=== PATIENT | female | born 1975 | race Caucasian/White ===

== ENCOUNTER 2018-05-22 09:19 | Emergency (ER) | payer OTHER ==
--- NOTE | 2018-05-22 10:45 | ER ---
Nurse's Notes [facility] Name: Trudi Villavicencio Age: 42 yrs Sex: Female : 1975 Arrival Date: 05/22/2018 Time: 09:21 Bed 19 Private MD: Angel Carl Diagnosis: Acute upper respiratory infection, unspecified Presentation: 05/22 09:27 Presenting complaint: Patient states: cough, fatigue, nasal congestion and runny nose ss that began 2 days ago. Unknown fever. Transition of care: patient was not received from another setting of care. Resp Distress? No respiratory distress is noted at this time. Onset of symptoms was May 20, 2018. Risk Assessment: Do you want to hurt yourself or someone else? Patient reports no desire to harm self or others. Initial Sepsis Screen: Does the patient meet any 2 criteria? No. Patient's initial sepsis screen is negative. Does the patient have a suspected source of infection? Yes: Productive cough/pneumonia. Care prior to arrival: Pt attempted to see PCP, Dr. Carl, but reports they were unable to help her. 09:27 Method Of Arrival: Ambulatory ss 09:27 Acuity: HOWIE 4 ss Historical: - Allergies: 09:29 Aspirin; ss 09:29 Codeine; ss 09:29 Topamax; ss 09:29 tramadol; ss - PMHx: 09:29 Asthma; Degenerative disc disease; DGD; enlarged aorta; Fibromyalgia; Herniated disc; ss - PSHx: 09:29 Carpal Tunnel Repair; neuropathy; breast reduction; ss - Immunization history:: Adult Immunizations up to date, Flu vaccine is not up to date. - Social history:: Smoking status: Patient/guardian denies using tobacco. - Ebola Screening: : Patient denies exposure to infectious person Patient denies travel to an Ebola-affected area in the 21 days before illness onset. Screenin:35 Abuse screen: Denies threats or abuse. Denies injuries from another. Nutritional sv screening: No deficits noted. Tuberculosis screening: No symptoms or risk factors identified. Fall Risk None identified. Assessment: 09:35 General: Appears in no apparent distress. uncomfortable, Behavior is calm, cooperative, sv appropriate for age. Pain: Complains of pain in "my body" Pain currently is 5 out of 10 on a pain scale. Quality of pain is described as aching, Pain began 2-3 days ago. Is continuous. Neuro: Level of Consciousness is awake, alert, obeys commands, Oriented to person, place, time, situation, Moves all extremities. Full function Gait is steady, Speech is normal. Cardiovascular: Patient's skin is warm and dry. Respiratory: Reports cough that is non-productive, pain with cough Airway is patent Respiratory effort is even, unlabored, Respiratory pattern is regular, symmetrical. EENT: Reports nasal congestion. Derm: Skin is pink, warm \\T\\ dry. 11:09 Reassessment: Patient appears in no apparent distress at this time. No changes from sv previously documented assessment. Patient and/or family updated on plan of care and expected duration. Pain level reassessed. Patient is alert, oriented x 3, equal unlabored respirations, skin warm/dry/pink. Vital Signs: 09:29 BP 134 / 89; Pulse 106; Resp 18; Temp 99.4; Pulse Ox 98% on R/A; Weight 100.7 kg; ss Height 5 ft. 3 in. (160.02 cm); Pain 5/10; 10:27 BP 106 / 84; Pulse 89; Resp 18; Pulse Ox 99% ; sv 09:29 Body Mass Index 39.33 (100.70 kg, 160.02 cm) ED Course: 09:21 Patient arrived in ED. sb2 09:22 Angel Carl MD is Private Physician. sb2 09:26 [facility] Ortega [facility] jr8 09:26 Jacinto Thomas MD is Attending Physician. jr8 09:28 Triage completed. ss 09:29 Arm band placed on right wrist. ss 09:35 Patient has correct armband on for positive identification. Bed in low position. Call sv light in reach. Pulse ox on. NIBP on. Door closed. Head of bed elevated. 10:25 Reyna Chavira, BECK is Primary Nurse. sv 10:44 Angel Carl MD is Referral Physician. jr8 11:09 No provider procedures requiring assistance completed. Patient did not have IV access sv during this emergency room visit. Administered Medications: No medications were administered Outcome: 10:44 Discharge ordered by . jr8 11:09 Patient left the ED. ss 11:09 Discharged to home ambulatory. sv 11:09 Condition: stable 11:09 Discharge instructions given to patient, Instructed on discharge instructions, follow up and referral plans. medication usage, Demonstrated understanding of instructions, follow-up care, medications, Prescriptions given X 3. Signatures: Reyna Chavira RN RN sv Smirch, Shelby, RN RN ss Roszak, Josh, PA PA jr8 Cynthia Mane sb2
--- NOTE | 2018-05-22 10:45 | EDPHYS ---
Physician Documentation [facility] Name: Trudi Villavicencio Age: 42 yrs Sex: Female : 1975 Arrival Date: 05/22/2018 Time: 09:21 Bed 19 Private MD: Angel Carl ED Physician Jacinto Thomas HPI: 05/22 10:36 This 42 yrs old Female presents to ER via Ambulatory with complaints of jr8 Cough, Congestion, Runny Nose. 10:36 The patient or guardian reports cough, that is intermittent, described as mild, with no jr8 sputum. Onset: The symptoms/episode began/occurred acutely, 2 day(s) ago. Severity of symptoms: At their worst the symptoms were mild, in the emergency department the symptoms are unchanged. Modifying factors: The symptoms are alleviated by nothing, the symptoms are aggravated by nothing. Associated signs and symptoms: Pertinent positives: rhinorrhea, sore throat, sinus congestion . The patient has not experienced similar symptoms in the past. The patient has not recently seen a physician. Historical: - Allergies: 09:29 Aspirin; ss 09:29 Codeine; ss 09:29 Topamax; ss 09:29 tramadol; ss - PMHx: 09:29 Asthma; Degenerative disc disease; DGD; enlarged aorta; Fibromyalgia; Herniated disc; ss - PSHx: 09:29 Carpal Tunnel Repair; neuropathy; breast reduction; ss - Immunization history:: Adult Immunizations up to date, Flu vaccine is not up to date. - Social history:: Smoking status: Patient/guardian denies using tobacco. - Ebola Screening: : Patient denies exposure to infectious person Patient denies travel to an Ebola-affected area in the 21 days before illness onset. ROS: 10:36 Eyes: Negative for injury, pain, redness, and discharge, Neck: Negative for injury, jr8 pain, and swelling, Cardiovascular: Negative for chest pain, palpitations, and edema, Abdomen/GI: Negative for abdominal pain, nausea, vomiting, diarrhea, and constipation, Back: Negative for injury and pain, MS/Extremity: Negative for injury and deformity, Skin: Negative for injury, rash, and discoloration, Neuro: Negative for headache, weakness, numbness, tingling, and seizure. 10:36 Constitutional: Positive for body aches, chills. 10:36 ENT: Positive for rhinorrhea, sinus congestion, sore throat. Exam: 10:36 Eyes: Pupils equal round and reactive to light, extra-ocular motions intact. Lids and jr8 lashes normal. Conjunctiva and sclera are non-icteric and not injected. Cornea within normal limits. Periorbital areas with no swelling, redness, or edema. ENT: No nasal discharge, no septal abnormalities noted. Turbinates swollen and boggy. Tympanic membranes are normal and external auditory canals are clear. Oropharynx with no redness, swelling, or masses, exudates, or evidence of obstruction, uvula midline. Mucous membranes moist. Neck: Trachea midline, no thyromegaly or masses palpated, and no cervical lymphadenopathy. Supple, full range of motion without nuchal rigidity, or vertebral point tenderness. No Meningismus. Cardiovascular: Regular rate and rhythm with a normal S1 and S2. No gallops, murmurs, or rubs. Normal PMI, no JVD. No pulse deficits. Respiratory: Lungs have equal breath sounds bilaterally, clear to auscultation and percussion. No rales, rhonchi or wheezes noted. No increased work of breathing, no retractions or nasal flaring. Abdomen/GI: Soft, non-tender, with normal bowel sounds. No distension or tympany. No guarding or rebound. No evidence of tenderness throughout. Back: No spinal tenderness. No costovertebral tenderness. Full range of motion. Skin: Warm, dry with normal turgor. Normal color with no rashes, no lesions, and no evidence of cellulitis. MS/ Extremity: Pulses equal, no cyanosis. Neurovascular intact. Full, normal range of motion. Neuro: Awake and alert, GCS 15, oriented to person, place, time, and situation. Cranial nerves II-XII grossly intact. Motor strength 5/5 in all extremities. Sensory grossly intact. Cerebellar exam normal. Normal gait. Vital Signs: 09:29 BP 134 / 89; Pulse 106; Resp 18; Temp 99.4; Pulse Ox 98% on R/A; Weight 100.7 kg; ss Height 5 ft. 3 in. (160.02 cm); Pain 5/10; 10:27 BP 106 / 84; Pulse 89; Resp 18; Pulse Ox 99% ; sv 09:29 Body Mass Index 39.33 (100.70 kg, 160.02 cm) ss MDM: 09:26 Patient medically screened. jr8 10:44 Data reviewed: vital signs, nurses notes, lab test result(s), Flu: negative and as a jr8 result, I will discharge patient. Data interpreted: Pulse oximetry: on room air is 99 %. Interpretation: normal. Counseling: I had a detailed discussion with the patient and/or guardian regarding: the historical points, exam findings, and any diagnostic results supporting the discharge/admit diagnosis, lab results, the need for outpatient follow up, a family practitioner, to return to the emergency department if symptoms worsen or persist or if there are any questions or concerns that arise at home. 05/22 10:11 Order name: Influenza Screen (a \T\ B); Complete Time: 10:45 jr8 Administered Medications: No medications were administered Disposition: 14:08 Co-signature as Attending Physician, Jacinto Thomas MD. rn Disposition: 05/22/18 10:44 Discharged to Home. Impression: Acute upper respiratory infection, unspecified. - Condition is Stable. - Discharge Instructions: Upper Respiratory Infection, Adult. - Prescriptions for Prednisone 20 mg Oral Tablet - take 1 tablet by ORAL route once daily for 5 days; 5 tablet. Tessalon Perles 100 mg Oral Capsule - take 1 capsule by ORAL route every 8 hours As needed; 15 capsule. Albuterol Sulfate 90 mcg/actuation - inhale 1-2 puff by INHALATION route every 4-6 hours; 1 Inhaler. - Medication Reconciliation Form, Thank You Letter, Antibiotic Education, Prescription Opioid Use form. - Follow up: Angel Carl MD; When: 2 - 3 days; Reason: Recheck today's complaints, Continuance of care, Re-evaluation by your physician. - Problem is new. - Symptoms have improved. Signatures: Dispatcher [employer] EDMS Jacinto Thomas MD MD rn Smirch, Shelby, RN RN ss Roszak, Josh, PA PA jr8 Corrections: (The following items were deleted from the chart) 11: 10:44 05/22/2018 10:44 Discharged to Home. Impression: Acute upper respiratory ss infection, unspecified. Condition is Stable. Forms are Medication Reconciliation Form, Thank You Letter, Antibiotic Education, Prescription Opioid Use. Follow up: Angel Carl; When: 2 - 3 days; Reason: Recheck today's complaints, Continuance of care, Re-evaluation by your physician. Problem is new. Symptoms have improved. jr8
[2018-05-22 11:32] VITALS: TEMP 99.4
[2018-05-22 11:34] VITALS: BP 106/84; O2SAT 99
== END 2018-05-22 11:09 | disposition home or self-care (01) ==
LOC: ER 09:19
DX: J06.9 Acute upper respiratory infection, unspecified (principal); Z88.5 Allergy status to narcotic agent; Z88.6 Allergy status to analgesic agent; Z88.8 Allergy status to other drugs, medicaments and biological substances
CPT/HCPCS: 87804; 99283

== ENCOUNTER 2018-08-16 12:25 | Emergency (ER) | payer OTHER ==
[2018-08-16] MEDS ORDERED: DIPHENHYDRAMINE 50 MG/ML VIAL ONE (14:25)
[2018-08-16] MEDS ORDERED: METOCLOPRAMIDE 10 MG/2mL INJ ONE (14:25)
[2018-08-16] MEDS ORDERED: NA CHLORIDE 0.9% 1,000 ML ONE ×2 (14:25→14:42)
[2018-08-16] MEDS ORDERED: KETOROLAC 30 MG/ML INJ ONE (14:25)
--- NOTE | 2018-08-16 15:42 | EDPHYS ---
Physician Documentation [facility] Name: Trudi Villavicencio Age: 43 yrs Sex: Female : 1975 Arrival Date: 08/16/2018 Time: 12:29 Bed 26 Private MD: ED Physician Tod Blandon HPI: 08/16 14:21 This 43 yrs old Female presents to ER via Ambulatory with complaints of kb Migraine. 14:21 The patient complains of pain to the forehead. The patient describes the headache as kb constant. Onset: The symptoms/episode began/occurred 7 day(s) ago. Associated signs and symptoms: Pertinent positives: nausea, Photophobia vomiting. Severity of symptoms: At its worst the pain was mild, moderate, in the emergency department the pain is unchanged. Headache History: The patient has had previous headaches and this one is similar to previous episodes. The symptoms are alleviated by nothing. the symptoms are aggravated by nothing. The patient has experienced similar episodes in the past, multiple times, today's symptoms are similar. The patient has not recently seen a physician. 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 - Social history:: Smoking status: unknown. - Ebola Screening: : No symptoms or risks identified at this time. ROS: 14:20 Constitutional: Negative for fever, chills, and weight loss, ENT: Negative for injury, kb pain, and discharge, Neck: Negative for injury, pain, and swelling, Cardiovascular: Negative for chest pain, palpitations, and edema, Respiratory: Negative for shortness of breath, cough, wheezing, and pleuritic chest pain, Back: Negative for injury and pain, MS/Extremity: Negative for injury and deformity, Skin: Negative for injury, rash, and discoloration. 14:20 Abdomen/GI: Positive for nausea and vomiting. 14:20 Neuro: Positive for headache. Exam: 14:20 Constitutional: This is a well developed, well nourished patient who is awake, alert, kb and in no acute distress. Head/Face: Normocephalic, atraumatic. Eyes: Pupils equal round and reactive to light, extra-ocular motions intact. Lids and lashes normal. Conjunctiva and sclera are non-icteric and not injected. Cornea within normal limits. Periorbital areas with no swelling, redness, or edema. ENT: Nares patent. No nasal discharge, no septal abnormalities noted. Tympanic membranes are normal and external auditory canals are clear. Oropharynx with no redness, swelling, or masses, exudates, or evidence of obstruction, uvula midline. Mucous membranes moist. Neck: Trachea midline, no thyromegaly or masses palpated, and no cervical lymphadenopathy. Supple, full range of motion without nuchal rigidity, or vertebral point tenderness. No Meningismus. Chest/axilla: Normal chest wall appearance and motion. Nontender with no deformity. No lesions are appreciated. Cardiovascular: Regular rate and rhythm with a normal S1 and S2. No gallops, murmurs, or rubs. Normal PMI, no JVD. No pulse deficits. Respiratory: Lungs have equal breath sounds bilaterally, clear to auscultation and percussion. No rales, rhonchi or wheezes noted. No increased work of breathing, no retractions or nasal flaring. Abdomen/GI: Soft, non-tender, with normal bowel sounds. No distension or tympany. No guarding or rebound. No evidence of tenderness throughout. Skin: Warm, dry with normal turgor. Normal color with no rashes, no lesions, and no evidence of cellulitis. MS/ Extremity: Pulses equal, no cyanosis. Neurovascular intact. Full, normal range of motion. Neuro: Awake and alert, GCS 15, oriented to person, place, time, and situation. Cranial nerves II-XII grossly intact. Motor strength 5/5 in all extremities. Sensory grossly intact. Cerebellar exam normal. Normal gait. Vital Signs: 12:35 BP 118 / 78; Pulse 90; Resp 18; Temp 98.8(TE); Pulse Ox 99% on R/A; Weight 108.41 kg aj1 (R); Height 5 ft. 3 in. (160.02 cm) (R); Pain 10/10; 14:14 BP 112 / 77; Pulse 66; Resp 18; Pulse Ox 100% on R/A; tm3 15:45 BP 101 / 69; Pulse 68; Resp 18; Pulse Ox 100% on R/A; tl3 12:35 Body Mass Index 42.34 (108.41 kg, 160.02 cm) aj1 MDM: 13:26 Patient medically screened. kb 14:20 Data reviewed: vital signs, nurses notes. Data interpreted: Pulse oximetry: on room air kb is 100 %. Interpretation: normal. 15:41 Counseling: I had a detailed discussion with the patient and/or guardian regarding: the kb historical points, exam findings, and any diagnostic results supporting the discharge/admit diagnosis, the need for outpatient follow up, a family practitioner, to return to the emergency department if symptoms worsen or persist or if there are any questions or concerns that arise at home. Response to treatment: the patient's symptoms have resolved after treatment, the patient's pain is gone. 08/16 13:45 Order name: IV Start; Complete Time: 14:13 kb Administered Medications: 14:24 Drug: Reglan 10 mg Route: IVP; Infused Over: 2 mins; Site: right antecubital; tl3 16:01 Follow up: Response: Marked relief of symptoms tl3 14:24 Drug: Benadryl 12.5 mg Route: IVP; Infused Over: 2 mins; Site: right antecubital; tl3 16:01 Follow up: Response: No adverse reaction; Marked relief of symptoms tl3 14:25 Drug: NS 0.9% 1000 ml Route: IV; Rate: 1000 ml; Site: right antecubital; Delivery: tl3 Primary tubing; 16:01 Follow up: IV Status: Completed infusion; IV Intake: 1000ml tl3 14:25 Drug: TORadol 30 mg Route: IVP; Infused Over: 2 mins; Site: right antecubital; tl3 16:01 Follow up: Response: Marked relief of symptoms tl3 Disposition: 16:11 Co-signature as Attending Physician, Tod Blandon MD I agree with the assessment and kdr plan of care. Disposition: 08/16/18 15:41 Discharged to Home. Impression: Migraine. - Condition is Stable. - Discharge Instructions: Migraine Headache, [id number]. - Medication Reconciliation Form, Thank You Letter, Antibiotic Education, Prescription Opioid Use form. - Follow up: Emergency Department; When: As needed; Reason: Worsening of condition. Follow up: Private Physician; When: 2 - 3 days; Reason: Recheck today's complaints, Continuance of care, Re-evaluation by your physician. Signatures: Lia Montenegro, CHEMICAL SPRAYER-C CHEMICAL SPRAYER-Payal Gorman RN RN aj1 Tod Blandon MD MD kdr Irasema Jones RN RN tl3 Corrections: (The following items were deleted from the chart) 16:10 15:41 08/16/2018 15:41 Discharged to Home. Impression: Migraine. Condition is Stable. tl3 Forms are Medication Reconciliation Form, Thank You Letter, Antibiotic Education, Prescription Opioid Use. Follow up: Emergency Department; When: As needed; Reason: Worsening of condition. Follow up: Private Physician; When: 2 - 3 days; Reason: Recheck today's complaints, Continuance of care, Re-evaluation by your physician. kb
--- NOTE | 2018-08-16 15:42 | ER ---
Nurse's Notes [facility] Name: Trudi Villavicencio Age: 43 yrs Sex: Female : 1975 Arrival Date: 08/16/2018 Time: 12:29 Bed 26 Private MD: Diagnosis: Migraine Presentation: 08/16 12:32 Presenting complaint: Patient states: "I have a migraine in the middle of my head, I've aj1 had it for 7 days. Yesterday I was nauseated" Patient reports a history of migraines, states the pain is similar to her previous migraines, but she has never had one last this long. Denies head injury. Patient reports that she OTC headache medication with no relief. Transition of care: patient was not received from another setting of care. Onset of symptoms was August 07, 2017. Risk Assessment: Do you want to hurt yourself or someone else? Patient reports no desire to harm self or others. Initial Sepsis Screen: Does the patient meet any 2 criteria? No. Patient's initial sepsis screen is negative. Does the patient have a suspected source of infection? No. Patient's initial sepsis screen is negative. Care prior to arrival: None. 12:32 Method Of Arrival: Ambulatory aj1 12:32 Acuity: HOWIE 3 aj1 Triage Assessment: 12:35 General: Appears in no apparent distress. uncomfortable, Behavior is calm, cooperative, aj1 appropriate for age. Pain: Complains of pain in forehead Pain does not radiate. Pain currently is 10 out of 10 on a pain scale. Neuro: Level of Consciousness is awake, alert, obeys commands, Oriented to person, place, time, situation, Wet Mixer are equal bilaterally Moves all extremities. Full function Gait is steady, Facial symmetry appears normal, Reports headache. Cardiovascular: Patient's skin is warm and dry. Respiratory: Airway is patent Respiratory effort is even, unlabored, Respiratory pattern is regular, symmetrical. 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 - Social history:: Smoking status: unknown. - Ebola Screening: : No symptoms or risks identified at this time. Screenin:41 Abuse screen: Denies threats or abuse. Nutritional screening: No deficits noted. tl3 Tuberculosis screening: No symptoms or risk factors identified. Fall Risk None identified. Assessment: 13:41 General: Appears distressed, uncomfortable, well groomed, well developed, well tl3 nourished, Behavior is calm, cooperative, appropriate for age. Pain: Complains of pain in face and forehead Pain began this is the seventh day. Neuro: Level of Consciousness is awake, alert, obeys commands, Oriented to person, place, time, situation, Appropriate for age. Cardiovascular: Patient's skin is warm and dry. Respiratory: Airway is patent Respiratory effort is even, unlabored, Respiratory pattern is regular, symmetrical. GI: Reports nausea, vomiting. : No signs and/or symptoms were reported regarding the genitourinary system. EENT: No signs and/or symptoms were reported regarding the EENT system. Derm: No signs and/or symptoms reported regarding the dermatologic system. 15:45 Reassessment: Patient appears in no apparent distress at this time. No changes from tl3 previously documented assessment. Patient and/or family updated on plan of care and expected duration. Pain level reassessed. Patient is alert, oriented x 3, equal unlabored respirations, skin warm/dry/pink. pt feels much better, Lia at bedside discussing POC. Vital Signs: 12:35 BP 118 / 78; Pulse 90; Resp 18; Temp 98.8(TE); Pulse Ox 99% on R/A; Weight 108.41 kg aj1 (R); Height 5 ft. 3 in. (160.02 cm) (R); Pain 10/10; 14:14 BP 112 / 77; Pulse 66; Resp 18; Pulse Ox 100% on R/A; tm3 15:45 BP 101 / 69; Pulse 68; Resp 18; Pulse Ox 100% on R/A; tl3 12:35 Body Mass Index 42.34 (108.41 kg, 160.02 cm) aj1 ED Course: 12:29 Patient arrived in ED. rg4 12:33 Triage completed. aj1 12:35 Arm band placed on Patient placed in waiting room, Patient notified of wait time. aj1 13:21 Lia Montenegro FNP-C is [facility]. kb 13:21 Tod Blandon MD is Attending Physician. kb 13:35 Irasema Jones, RN is Primary Nurse. tl3 13:41 Patient has correct armband on for positive identification. Bed in low position. Call tl3 light in reach. Side rails up X 1. 13:41 No provider procedures requiring assistance completed. tl3 14:04 Inserted saline lock: 22 gauge in right antecubital area, using aseptic technique. tm3 15:45 IV discontinued, intact, bleeding controlled, No redness/swelling at site. Pressure tl3 dressing applied. Administered Medications: 14:24 Drug: Reglan 10 mg Route: IVP; Infused Over: 2 mins; Site: right antecubital; tl3 16:01 Follow up: Response: Marked relief of symptoms tl3 14:24 Drug: Benadryl 12.5 mg Route: IVP; Infused Over: 2 mins; Site: right antecubital; tl3 16:01 Follow up: Response: No adverse reaction; Marked relief of symptoms tl3 14:25 Drug: NS 0.9% 1000 ml Route: IV; Rate: 1000 ml; Site: right antecubital; Delivery: tl3 Primary tubing; 16:01 Follow up: IV Status: Completed infusion; IV Intake: 1000ml tl3 14:25 Drug: TORadol 30 mg Route: IVP; Infused Over: 2 mins; Site: right antecubital; tl3 16:01 Follow up: Response: Marked relief of symptoms tl3 Intake: 16:01 IV: 1000ml; Total: 1000ml. tl3 Outcome: 15:41 Discharge ordered by . kb 15:45 Discharged to home ambulatory. tl3 15:45 Condition: stable 15:45 Discharge instructions given to patient, Instructed on discharge instructions, follow up and referral plans. medication usage, Demonstrated understanding of instructions, follow-up care, medications. 16:10 Patient left the ED. tl3 Signatures: Lia Montenegro FNP-C FNP-Payal Gorman RN RN aj1 Torrey Goff tm3 Sushila Shabazz rg4 Irasema Jones, RN RN tl3 Corrections: (The following items were deleted from the chart) 12:44 12:35 BP 118 / 78; Pulse 30bpm; Resp 18bpm; Pulse Ox 99% RA; Temp 98.8F Temporal; aj1 108.41 kg Reported; Height 5 ft. 3 in. Reported; BMI: 42.3; Pain 04/24; aj1
[2018-08-16 16:21] VITALS: TEMP 98.8
[2018-08-16 16:23] VITALS: O2SAT 100
[2018-08-16 16:25] VITALS: BP 101/69
== END 2018-08-16 16:10 | disposition home or self-care (01) ==
LOC: ER 12:25
DX: G43.909 Migraine, unspecified, not intractable, without status migrainosus (principal); J45.909 Unspecified asthma, uncomplicated; M79.7 Fibromyalgia; Z88.6 Allergy status to analgesic agent; Z88.5 Allergy status to narcotic agent; Z88.8 Allergy status to other drugs, medicaments and biological substances
CPT/HCPCS: 96361; 96374; 96375; 99283; J2765; J7030

== ENCOUNTER 2019-05-12 20:51 | Emergency (ER) | payer OTHER ==
[2019-05-12] MEDS ORDERED: DOXYCYCLINE 100 MG CAP PO ONE (21:31)
--- NOTE | 2019-05-12 22:02 | EDPHYS ---
Physician Documentation [facility] Name: Trudi Villavicencio Age: 43 yrs Sex: Female : 1975 Arrival Date: 05/12/2019 Time: 20:54 Bed 23 Private MD: ED Physician Kenn Steel HPI: 05/12 21:25 This 43 yrs old Female presents to ER via Ambulatory with complaints of cp Spider Bite. 21:25 The patient was bitten on the right breast, by possible spider, at home. Onset: The cp symptoms/episode began/occurred 2 day(s) ago. 21:25 Associated signs and symptoms: Pertinent negatives: fever, drainage. 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 - Social history:: Smoking status: Patient/guardian denies using tobacco. - Ebola Screening: : No symptoms or risks identified at this time. ROS: 21:30 Skin: Positive for of the right breast, possible spider bite. cp 21:30 Constitutional: Negative for body aches, chills, fever, poor PO intake. cp 21:30 Cardiovascular: Negative for chest pain, palpitations. 21:30 Respiratory: Negative for cough, shortness of breath, wheezing. 21:30 Abdomen/GI: Negative for abdominal pain, nausea, vomiting, and diarrhea. 21:30 All other systems are negative. Exam: 21:35 Constitutional: The patient appears in no acute distress, alert, awake, non-toxic, well cp developed, well nourished. 21:35 Head/Face: Normocephalic, atraumatic. cp 21:35 Skin: noted area of ecchymosis approximate nickel size in diameter with advancing erythema, no drainage expressed and no induration located right lower breast. Vital Signs: 20:58 BP 120 / 86; Pulse 110; Resp 16; Temp 97.2; Pulse Ox 98% on R/A; Weight 108.41 kg (R); ak1 Height 5 ft. 1 in. (154.94 cm) (R); Pain 0/10; 22:13 BP 123 / 78; Pulse 90; Resp 18; Temp 98.5(O); Pulse Ox 100% on R/A; mg2 20:58 Body Mass Index 45.16 (108.41 kg, 154.94 cm) ak1 MDM: 21:09 Patient medically screened. cp 21:30 Differential diagnosis: cellulitis, abscess. cp 22:01 Data reviewed: vital signs, nurses notes, and as a result, I will discharge patient. cp 22:01 Counseling: I had a detailed discussion with the patient and/or guardian regarding: the cp historical points, exam findings, and any diagnostic results supporting the discharge/admit diagnosis, to return to the emergency department if symptoms worsen or persist or if there are any questions or concerns that arise at home. 05/12 21:44 Order name: Urine Dipstick--Ancillary (enter results) [facility] 05/12 21:44 Order name: Urine --Ancillary (enter results) [facility] 05/12 21:19 Order name: Urine Test (obtain specimen); Complete Time: 21:39 cp 05/12 21:19 Order name: Urine Dipstick-Ancillary (obtain specimen); Complete Time: 21:39 cp 05/12 21:19 Order name: Misc. Order: outline area of erythema; Complete Time: 21:45 cp Administered Medications: 21:46 Drug: Doxycycline 100 mg Route: PO; mg2 21:46 Follow up: Response: No adverse reaction; Medication administered at discharge. mg2 Disposition: 22:20 Chart complete. cp Disposition: 05/12/19 22:02 Discharged to Home. Impression: Other local infections of skin and subcutaneous tissue - right breast. - Condition is Stable. - Discharge Instructions: Cellulitis, Adult. - Prescriptions for Bactroban 2 % Topical Cream - Apply to affected area 1 application by TOPICAL route every 12 hours; 30 gram. Doxycycline Hyclate 100 mg Oral Tablet - take 1 tablet by ORAL route every 12 hours; 20 tablet. - Medication Reconciliation Form, Thank You Letter, Antibiotic Education, Prescription Opioid Use form. - Follow up: Private Physician; When: 1 - 2 days; Reason: Recheck today's complaints. - Problem is new. - Symptoms have improved. Addendum: 05/14/2019 07:16 Co-signature as Attending Physician, Kenn Stele MD I agree with the assessment and t w4 plan of care. Signatures: Dispatcher [employer] Trinidad Herring RN RN ak1 Giuseppe Matthews PA PA cp Wadley, Terrence, MD MD tw4 Donnell Gamez RN RN mg2 Corrections: (The following items were deleted from the chart) 05/12 22:16 22:02 05/12/2019 22:02 Discharged to Home. Impression: Other local infections of skin mg2 and subcutaneous tissue - right breast. Condition is Stable. Forms are Medication Reconciliation Form, Thank You Letter, Antibiotic Education, Prescription Opioid Use. Follow up: Private Physician; When: 1 - 2 days; Reason: Recheck today's complaints. Problem is new. Symptoms have improved. cp
--- NOTE | 2019-05-12 22:02 | ER ---
Nurse's Notes [facility] Name: Trudi Villavicencio Age: 43 yrs Sex: Female : 1975 Arrival Date: 05/12/2019 Time: 20:54 Bed 23 Private MD: Diagnosis: Other local infections of skin and subcutaneous tissue-right breast Presentation: 05/12 20:57 Presenting complaint: Patient states: abscess under right breast X2 days. Transition of ak1 care: patient was not received from another setting of care. Onset of symptoms is unknown. Risk Assessment: Do you want to hurt yourself or someone else? Patient reports no desire to harm self or others. Initial Sepsis Screen: Does the patient meet any 2 criteria? No. Patient's initial sepsis screen is negative. Does the patient have a suspected source of infection? No. Patient's initial sepsis screen is negative. Care prior to arrival: None. 20:57 Method Of Arrival: Ambulatory ak1 20:57 Acuity: HOWIE 4 ak1 Triage Assessment: 20:58 General: Appears in no apparent distress. Behavior is calm, cooperative. 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 - Social history:: Smoking status: Patient/guardian denies using tobacco. - Ebola Screening: : No symptoms or risks identified at this time. Screenin:33 Abuse screen: Denies threats or abuse. Denies injuries from another. Nutritional mg2 screening: No deficits noted. Tuberculosis screening: No symptoms or risk factors identified. Fall Risk None identified. Assessment: 21:35 General: Appears in no apparent distress. comfortable, Behavior is calm, cooperative. mg2 Pain: Complains of pain in right breast. Neuro: Level of Consciousness is awake, alert, obeys commands, Oriented to person, place, time, situation. Cardiovascular: Capillary refill < 3 seconds Patient's skin is warm and dry. Respiratory: Airway is patent Respiratory effort is Respiratory pattern is regular, symmetrical. GI: No signs and/or symptoms were reported involving the gastrointestinal system. : No signs and/or symptoms were reported regarding the genitourinary system. EENT: No signs and/or symptoms were reported regarding the EENT system. Derm: Abscess located on right breast is quarter sized, has no drainage. Musculoskeletal: Circulation, motion, and sensation intact. Capillary refill < 3 seconds. 22:15 Reassessment: 7 cm-diameter measurement of the erythema area on her right breast. mg2 Vital Signs: 20:58 BP 120 / 86; Pulse 110; Resp 16; Temp 97.2; Pulse Ox 98% on R/A; Weight 108.41 kg (R); ak1 Height 5 ft. 1 in. (154.94 cm) (R); Pain 0/10; 22:13 BP 123 / 78; Pulse 90; Resp 18; Temp 98.5(O); Pulse Ox 100% on R/A; mg2 20:58 Body Mass Index 45.16 (108.41 kg, 154.94 cm) ak1 ED Course: 20:54 Patient arrived in ED. ds1 20:58 Triage completed. ak1 20:58 Arm band placed on Patient placed in an exam room, on a stretcher, Patient notified of ak1 wait time. 21:06 Giuseppe Matthews PA is PHCP. cp 21:06 Kenn Steel MD is Attending Physician. cp 21:15 Donnell Gamez, BECK is Primary Nurse. mg2 21:36 Patient has correct armband on for positive identification. Pulse ox on. NIBP on. mg2 21:36 No provider procedures requiring assistance completed. Patient did not have IV access mg2 during this emergency room visit. 21:38 Urine collected: clean catch specimen, clear, vargas colored. Patient maintains SpO2 jp3 saturation greater than 95% on room air. 21:39 Verbal reassurance given. jp3 Administered Medications: 21:46 Drug: Doxycycline 100 mg Route: PO; mg2 21:46 Follow up: Response: No adverse reaction; Medication administered at discharge. mg2 Outcome: 22:02 Discharge ordered by . cp 22:14 Discharged to home ambulatory. mg2 22:14 Condition: stable 22:14 Discharge instructions given to patient, Instructed on discharge instructions, follow up and referral plans. medication usage, Demonstrated understanding of instructions, follow-up care, medications, Prescriptions given X 2. 22:16 Patient left the ED. mg2 Signatures: Asia Crane ds1 Vargas Carey RN RN ak1 Giuseppe Matthews PA PA cp Gardose, Michele, BECK RN mg2 Huy Motta jp3
[2019-05-12 22:15] LABS: Urine Blood NEGATIVE (NEG); Urine Glucose NEGATIVE (NEG); Urine Protein NEGATIVE (NEG); Urine Specific Gravity 1.025 (1.005-1.030); Urine pH 5.5 (5.0-7.0)
[2019-05-12 22:26] VITALS: BP 123/78; TEMP 98.5; O2SAT 100
== END 2019-05-12 22:16 | disposition home or self-care (01) ==
LOC: ER 20:51
DX: S20.161A Insect bite (nonvenomous) of breast, right breast, initial encounter (principal); L08.9 Local infection of the skin and subcutaneous tissue, unspecified; Z88.6 Allergy status to analgesic agent
CPT/HCPCS: 81003; 81025; 99284

== ENCOUNTER 2020-06-12 15:07 | Emergency (ER) | payer OTHER ==
--- OUTSIDE RECORDS SUMMARY | 2020-06-12 15:10 | XMS REPORT | Continuity of Care Document ---
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, systemic N euro arterial (disorder) Hypothyroidism Active Problem 06/03/2020 Misc her (disorder) Neuro,[facility] I Migraine Active Problem 06/03/2020 [facility] (disorder) Neuro,[facility] I Morbid obesity Active Problem 06/03/2020 Misc her (disorder) Neuro,[facility] I Thiamin deficiency Active Problem 06/03/2020 [facility] (disorder) Neuro 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) Ankle pain Active Problem 06/03/2020 [facility] (finding) [facility] Acid reflux Active Problem 02/28/2020 [facility] (finding) Allergy - Active Problem 02/28/2020 [facility] specialty (qualifier value) Fibromyalgia Active Problem 02/28/2020 [facility] (disorder) Fracture of talus Active Problem 02/28/2020 [facility] (disorder) Neuropathy Active Problem 02/28/2020 [facility] (disorder) Medications Medication Details Route Status Patient Ordering Order Source Instructions Provider Date rizatriptan 5 MG 5 mg = 1 tab, Active ischer Oral Tablet PO, ONCE, PRN 2019 Neuro [Maxalt] for migraine headache, # 9 tab, 1 Refill(s), Pharmacy: [facility], 152.4, cm, 01/15/20 15:04:00 CDT, Height, 115.455, kg, 01/15/20 15:04:00 CDT, Weight Misc Medication 900 mL, Inactive 02/25/ [facility] Soln-IV, IV, 2020 Once, first dose 02/26/20 10:27:00 CDT, stop date 02/26/20 10:27:00 CDT LR 1,000 mL 1,000 mL, IV, Inactive 02/25/ [facility] 75 mL/hr, 2019 start date 02/26/20 10:20:00 CDT, 2.14, m2 Saline Lock Flush 10 mL, Soln, Inactive 02/25/ [facility] IV Push, As 2020 Indicated PRN for flush, first dose 02/26/20 10:20:00 CDT Dilaudid 0.5 mg = 0.5 Inactive 02/25/ [facility] mL, 2019 Injection, IV Push, q10min PRN for pain severe (7-10), first dose 02/26/20 10:20:00 CDT Demerol HCl 12.5 mg = 0.5 Inactive 02/25/ [facility] mL, 2020 Injection, IV Push, Once PRN for shivers, first dose 02/26/20 10:20:00 CDT Albuterol 0.83 2.5 mg = 3 Inactive 02/25/ [facility] MG/ML Inhalant mL, Soln, 2020 Solution NEB, Once PRN for wheezing, first dose 02/26/20 10:20:00 CDT Ondansetron 4 mg = 2 mL, Inactive 02/25/ [facility] Injection, IV 2020 Push, q15min PRN for nausea, order duration: 2 doses, first dose 02/26/20 10:20:00 CDT, stop date Limited # of times Promethazine 12.5 mg = 0.5 Inactive 02/25/ [facility] mL, 2019 Injection, IM, Once PRN for vomiting, first dose 02/26/20 10:20:00 CDT fentaNYL 25 mcg = 0.5 Inactive 02/25/ [facility] mL, 2019 Injection, IV, Once, first dose 02/26/20 9:50:00 CDT, stop date 02/26/20 9:50:00 CDT fentaNYL 25 mcg = 0.5 Inactive 02/25/ [facility] mL, 2019 Injection, IV, Once, first dose 02/26/20 9:16:00 CDT, stop date 02/26/20 9:16:00 CDT Misc Medication 1,000 mL, Inactive I Soln-IV, IV, 2019 Once, first dose 02/26/20 8:23:00 CDT, stop date 02/26/20 8:23:00 CDT ceFAZolin 2 gm, Inactive I Soln-IV, IV 2019 Piggyback, Once, first dose 02/26/20 7:53:00 CDT, stop date 02/26/20 7:53:00 CDT ondansetron 4 mg = 2 mL, Inactive [facility] Injection, 2019 IV, Once, first dose 02/26/20 7:53:00 CDT, stop date 02/26/20 7:53:00 CDT dexamethasone 8 mg = 2 mL, Inactive [facility] Injection, 2019 IV, Once, first dose 02/26/20 7:53:00 CDT, stop date 02/26/20 7:53:00 CDT ketorolac 30 mg = 1 mL, Inactive I Injection, 2019 IV, Once, first dose 02/26/20 7:53:00 CDT, stop date 02/26/20 7:53:00 CDT lidocaine 100 mg = 5 Inactive [facility] mL, 2019 Injection, IV, Once, first dose 02/26/20 7:41:00 CDT, stop date 02/26/20 7:41:00 CDT propofol 200 mg = 20 Inactive [facility] mL, Emulsion, 2019 IV, Once, first dose 02/26/20 7:41:00 CDT, stop date 02/26/20 7:41:00 CDT fentaNYL 50 mcg = 1 Inactive [facility] mL, 2019 Injection, IV, Once, first dose 02/26/20 7:35:00 CDT, stop date 02/26/20 7:35:00 CDT midazolam 1 mg = 1 mL, Inactive [facility] Injection, 2019 IV, Once, first dose 02/26/20 7:34:00 CDT, stop date 02/26/20 7:34:00 CDT midazolam 1 mg = 1 mL, Inactive [facility] Injection, 2019 IV, Once, first dose 02/26/20 7:26:00 CDT, stop date 02/26/20 7:26:00 CDT fentaNYL 50 mcg = 1 Inactive 02/25/ [facility] mL, 2019 Injection, IV, Once, first dose 02/26/20 7:25:00 CDT, stop date 02/26/20 7:25:00 CDT Cefazolin 2 gm, Inactive [facility] Soln-IV, IV 2019 Piggyback, Once, infuse over 30 minutes, first dose 02/26/20 7:00:00 CDT, stop date 02/26/20 7:00:00 CDT, patient weight 50-120 kg, Prophylaxis LR 1,000 mL 1,000 mL, IV, Inactive 02/25/ [facility] 30 mL/hr, 2019 start date 02/26/20 6:28:00 CDT, 2.14, m2 Lidocaine 2% 0.2 0.2 mL, Inactive 02/25/ [facility] mL IV Start Injection, 2019 [[facility]] Subcutaneous, Once PRN for other (see comment), first dose 02/26/20 6:28:00 CDT Allergy Relief mg, Oral, Active 02/17/ [facility] Daily, 0 2020 Refill(s) Tylenol PM Oral, qHS, 0 Active 02/17/ [facility] Refill(s), 2020 sleep /pain amitriptyline 75 75 mg = 1 Active 02/17/ [facility] mg oral tablet tabs, Oral, 2019 qHS, 0 Refill(s), sleep levothyroxine 25 25 mcg = 1 Active 02/17/ [facility] mcg (0.025 mg) tabs, Oral, 2019 oral tablet Daily, 0 Refill(s), hypothyroid rizatriptan 5 mg 5 mg = 1 Active 02/17/ [facility] oral tablet tabs, Oral, 2019 Daily, 0 Refill(s) pantoprazole 40 40 mg = 1 Active 02/17/ [facility] mg oral delayed tabs, Oral, 2019 release tablet Daily, 0 Refill(s), GERD meloxicam 7.5 MG 7.5 mg = 1 Active 02/17/ [facility] Oral Tablet tabs, Oral, 2019 Daily, 0 Refill(s), joint pain amitriptyline 75 = 1 tab, PO, Active 01/14/ Mi carrie mg oral tablet Bedtime, # 30 2020 Lebron ro ea, 5 Refill(s), Pharmacy: [facility], 152.4, cm, 01/15/20 15:04:00 CDT, Height, 115.455, kg, 01/15/20 15:04:00 CDT, Weight rizatriptan 5 MG 5 mg = 1 tab, Active ischer Oral Tablet PO, ONCE, PRN 2020 Neuro [Maxalt] for migraine headache, # 9 tab, 1 Refill(s), Pharmacy: [facility], 152.4, cm, 01/15/20 15:04:00 CDT, Height, 115.455, kg, 01/15/20 15:04:00 CDT, Weight rizatriptan 5 MG 5 mg = 1 tab, Active ischer Oral Tablet PO, ONCE, PRN 2019 Neuro [Maxalt] for migraine headache, # 9 tab, 1 Refill(s), Pharmacy: [facility] amitriptyline 75 = 1 tab, PO, Active carrie mg oral tablet Bedtime, 2019 Lebron ro ea, 1 Refill(s), Pharmacy: [facility] amitriptyline 75 75 mg = 1 Active 03/06/ Misch er mg oral tablet tab, PO, 2018 Neuro Bedtime, # 30 tab, 1 Refill(s), Pharmacy: [facility] rizatriptan 5 MG 5 mg = 1 tab, Active ischer Oral Tablet PO, ONCE, PRN 2018 Neuro [Maxalt] for migraine headache, # 9 tab, 1 Refill(s), Pharmacy: [facility] thiamine 100 mg 100 mg = 1 Active 02/14/ Misch er oral tablet tab, PO, 2019 Neuro Daily, X 30 day, # 30 tab, 3 Refill(s), Pharmacy: [facility] cyanocobalamin 1,000 Active 02/14/ Mischer 1000 mcg microgram = 1 2019 Neuro sublingual tablet tab, SL, Daily, # 30 tab, 2 Refill(s), Pharmacy: [facility] amitriptyline 50 50 mg = 1 Active 02/14/ Misch er mg oral tablet tab, PO, 2019 Neuro Bedtime, # 30 tab, 1 Refill(s), Pharmacy: [facility] rizatriptan 5 MG 5 mg = 1 tab, No Longer 01/25/ [facility] Oral Tablet PO, Daily, Active 2019 Neuro [Maxalt] PRN for migraine headache, X 6 day, # 6 tab, 1 Refill(s), Pharmacy: [facility] amitriptyline 50 50 mg = 1 No Longer 01/25/ Mis benji mg oral tablet tab, PO, Active 2019 Neuro Bedtime, # 30 tab, 1 Refill(s), Pharmacy: [facility] frovatriptan 2.5 2.5 mg = 1 No Longer 01/09/ Mi carrie mg oral tablet tab, PO, Active 2019 Neuro Daily, PRN for migraine headache, May repeat another dose at least 2 hours after the first dose, X 3 day, # 9 tab, 2 Refill(s), Pharmacy: [facility] eletriptan 40 MG See No Longer 01/07/ Misch er Oral Tablet Instructions, Active 2018 Neuro [Relpax] PO, Take 1-2 tabs orally at onset of migraine, may repeat dose once in 2 hours, X 3 day, # 6 tab, 1 Refill(s), Pharmacy: [facility] amitriptyline 25 25 mg = 1 Active 12/24/ Misch er mg oral tablet tab, PO, 2019 Neuro Bedtime, # 30 tab, 3 Refill(s), Pharmacy: [facility] cyanocobalamin 1,000 Active Mischer 1000 mcg microgram = 1 2019 Neuro sublingual tablet tab, SL, Daily, # 30 tab, 2 Refill(s), Pharmacy: [facility] thiamine 100 mg 100 mg = 1 Active 11/29/ Misch er oral tablet tab, PO, 2019 Neuro Daily, X 30 day, # 30 tab, 3 Refill(s), Pharmacy: [facility] amitriptyline 10 10 mg = 1 Active 11/22/ Misch er mg oral tablet tab, PO, 2019 Neuro Bedtime, # 30 tab, 3 Refill(s), Pharmacy: [facility] gabapentin 300 MG 300 mg = 1 Active 11/22/ Mis benji Oral Capsule cap, PO, BID, 2019 Neuro # 90 cap, 1 Refill(s) cyclobenzaprine 10 mg = 1 Inactive 11/22/ Misch er 10 mg oral tablet tab, PO, TID, 2019 Neuro PRN for spasms, # 30 tab, 0 Refill(s) escitalopram 20 20 mg = 1 Active 11/22/ Mische r mg oral tablet tab, PO, 2019 Neuro Daily, # 30 tab, 0 Refill(s) levothyroxine 50 50 microgram Active 11/22/ Mi carrie mcg (0.05 mg) = 1 tab, PO, 2019 Neuro oral tablet Daily, # 30 tab, 0 Refill(s) Allergies, Adverse Reactions, Alerts Substance Category Reaction Severity Reaction Status Date Comments S ource type Reported codeine Assertion Drug Active Mische r allergy Neuro aspirin Assertion Drug Active Mische r allergy Neuro Topamax Assertion Drug Active Mische r allergy Neuro codeine Assertion Drug Active Mische r sulfate allergy Neuro Immunizations No Data Provided for This Section Results Order Name Results Value Reference Date Interpretation Comments Linda rce Range LABORATORY Glucose Lvl 89 70 - 99 02/17 Result [facility] /2019 Comment: Adult reference range values reflect the clinical guidelines
of the [employer]. LABORATORY BUN 12 7 - 22 02/17 [facility] /2019 LABORATORY Creatinine 0.79 0.50 - 1.40 02/17 [facility] /2019 LABORATORY Sodium Level 141 135 - 145 02/17 [facility] /2019 LABORATORY Potassium 4.5 3.5 - 5.1 02/17 [facility] Level /2020 LABORATORY Chloride 108 95 - 109 02/17 [facility] Level /2020 LABORATORY Total Carbon 24 24 - 32 02/17 [facility] Dioxide /2020 Level LABORATORY AGAP 13.5 10.0 - 20.0 02/17 [facility] /2019 LABORATORY Calcium 9.5 8.5 - 10.5 02/17 [facility] Level /2020 LABORATORY eGFR 92 02/17 Result [facility] /2020 Comment: The eGFR is calculated using the CKD-EPI formula. In most young, healthy
i ndividuals the eGFR will be >90 mL/min/1.73m2 . The eGFR declines with age. An
eGFR of 60-89 may be normal in some populations, particularly the elderly, for
whom the CKD-EPI formula has not been extensively validated. Use of the eGFR is
not recommended in the following populations:< br/>Individua ls with unstable creatinine concentration s, including
patients and those with serious co-morbid conditions.<b r/>Patients with extremes in muscle mass or diet.
The data above are obtained from the National Kid[employer] Disease Education Program
( NKDEP) which additionally recommends that when the eGFR is used in patients<br/& gt;with extremes of body mass index for purposes of drug dosing, the eGFR should
be multiplied by the estimated BMI. LABORATORY Results Reported 02/17 (02/18/20 12:38 PM) LABORATORY White Blood 6.4 3.7 - 10.4 02/17 [facility] Count LABORATORY Red Blood 4.37 4.20 - 5.40 02/17 Cell Count LABORATORY Hemoglobin 12.7 12.0 - 16.0 02/17 LABORATORY Hematocrit 38.3 36.0 - 48.0 02/17 LABORATORY MCV 87.5 80.0 - 98.0 02/17 LABORATORY MCH 29.2 27.0 - 31.0 02/17 LABORATORY MCHC 33.3 32.0 - 36.0 02/17 LABORATORY RDW 14.2 11.5 - 14.5 02/17 LABORATORY Platelet 300 133 - 450 02/17 LABORATORY MPV 8.3 7.4 - 10.4 02/17 LABORATORY NRBCs # 0.1 0.4 - 2.2 02/17 LABORATORY Results Reported 02/17 (02/18/20 12:38 PM) LABORATORY Neutrophil % 62.2 45.0 - 75.0 02/17 LABORATORY Monocyte % 6.8 2.0 - 12.0 02/17 LABORATORY Lymphocyte % 26.9 20.0 - 40.0 02/17 LABORATORY Eosinophil # 3.6 0.0 - 4.0 02/17 LABORATORY Basophil % 0.5 0.0 - 1.0 02/17 LABORATORY Neutrophil # 4.0 1.5 - 8.1 02/17 LABORATORY Lymphocyte # 1.7 1.0 - 5.5 02/17 LABORATORY Monocyte # 0.4 0.0 - 0.8 02/17 LABORATORY Eosinophil % 0.2 0.0 - 0.5 02/17 LABORATORY Results Reported 02/17 [facility] (02/18/20 12:38 PM) Pathology Reports No Data Provided for This Section Diagnostic Reports No Data Provided for This Section Consultation Notes No Data Provided for This Section Discharge Summaries No Data Provided for This Section History and Physicals No Data Provided for This Section Vital Signs Vital Sign Value Date Comments Source Peripheral Pulse Rate 96 02/26/2020 [facility] Respitory Rate 16 02/26/2020 [facility] Systolic (mm Hg) 132 02/26/2020 [facility] Diastolic (mm Hg) 87 02/26/2020 [facility] Heart Rate 97 02/26/2020 [facility] Respitory Rate 16 02/26/2020 [facility] Systolic (mm Hg) 138 02/26/2020 [facility] Diastolic (mm Hg) 86 02/26/2020 [facility] Heart Rate 100 02/26/2020 [facility] Respitory Rate 20 02/26/2020 [facility] Systolic (mm Hg) 129 02/26/2020 [facility] Diastolic (mm Hg) 83 02/26/2020 [facility] Heart Rate 94 02/26/2020 [facility] Temperature Oral (F) 37.0 Sole 02/26/2020 [facility] Temperature Oral (F) 37.2 Sole 02/26/2020 [facility] Peripheral Pulse Rate 98 02/26/2020 [facility] Height 158 cm 02/26/2020 [facility] Weight Measured 117.5 02/26/2020 [facility] Height 158 cm 02/18/2020 [facility] Weight Measured 117.48 02/18/2020 [facility] Systolic (mm Hg) 121 01/15/2020 [facility] [place] ro Diastolic (mm Hg) 87 01/15/2020 [facility] Ne uro Heart Rate 106 01/15/2020 [facility] Neuro Respitory Rate 16 01/15/2020 [facility] Neuro Height 152.4 cm 01/15/2020 [facility] Neuro Weight 115.455 01/15/2020 [facility] Neuro BMI Calculated 49.71 01/15/2020 [facility] Neuro Systolic (mm Hg) 127 12/02/2019 [facility] [place] ro Diastolic (mm Hg) 95 12/02/2019 [facility] Ne uro Heart Rate 103 12/02/2019 [facility] Neuro Respitory Rate 16 12/02/2019 [facility] Neuro Height 152.4 cm 12/02/2019 [facility] Neuro Weight 107.727 12/02/2019 [facility] Neuro BMI Calculated 46.38 12/02/2019 [facility] Neuro Weight 108.182 02/14/2019 [facility] Neuro BMI Calculated 42.25 02/14/2019 [facility] Neuro Height 160.02 cm 02/14/2019 [facility] Neuro Respitory Rate 16 02/14/2019 [facility] Neuro Heart Rate 83 02/14/2019 [facility] Neuro Systolic (mm Hg) 123 02/14/2019 [facility] [place] ro Diastolic (mm Hg) 90 02/14/2019 [facility] Ne uro BMI Calculated 43.62 [facility]24/[facility] Weight 108.182 [facility]/24/[facility] Height 157.48 cm 12/24/2018 [facility] Neuro Systolic (mm Hg) 134 12/24/2018 [facility] [place] ro Diastolic (mm Hg) 99 12/24/2018 [facility] Respitory Rate 16 12/24/2018 [facility] Neuro Heart Rate 112 12/24/2018 [facility] Neuro Height 152.4 cm 12/20/2018 [facility] Neuro BMI Calculated 46.58 12/20/2018 [facility] Weight 108.182 12/20/2018 [facility] Neuro Systolic (mm Hg) 117 12/20/2018 [facility] [place] ro Diastolic (mm Hg) 82 12/20/2018 [facility] Ne uro Heart Rate 104 12/20/2018 [facility] Neuro Respitory Rate 16 12/20/2018 [facility] Neuro Systolic (mm Hg) 117 11/22/2018 [facility] [place] ro Diastolic (mm Hg) 90 11/22/2018 [facility] Ne uro Respitory Rate 16 11/22/2018 [facility] Neuro Height 157.48 cm 11/22/2018 [facility] Neuro Weight 106.364 11/22/2018 [facility] Neuro BMI Calculated 42.89 11/22/2018 [facility] Neuro Heart Rate 96 11/22/2018 [facility] Neuro Encounters Location Location Encounter Encounter Reason Attending ADM AL Stat Source Details Type Number For Provider Date Date Visit Outpatient [id number] Malcom 11/22 [facility] [place] [facility] Outpatient [id number] Malcom 11/22 11/23 [facility]2018 [facility] [place] [facility] [id number] [place] 12/20 [facility] [place] [facility] Outpatient [id number] [facility] 12/20 [facility] [place] [facility] [place] [facility] [id number] [facility] 12/24 [facility] [place] [facility] [id number] [place] 12/24 12/25 [facility] [place] /2018 [facility] [place] Outpatient [id number] [place] 02/14 [facility] [place] [facility] [id number] [place] 02/14 02/15 [facility] [place] [facility] [place] Outpatient [id number] [place] 05/23 [facility] [place] [facility] Amb[facility] [id number] [place] 05/23 05/23 [facility] [place] [facility] [place] Out[facility] [id number] [place] 12/01 [facility]2019 [place] [facility] Outpatient [id number] [place] 12/01 12/02 [facility] [place] /2019 [facility] [place] Outpatient [id number] [place] 01/14 [facility]2019 [place] Outpatient [id number] [place] 01/14 [facility]2019 [place] [facility] [id number] [place] 01/14 01/14 [facility] [place] /2019 [facility] [place] [facility] Outpatient [id number] [place] 01/14 01/15 [facility] [place] /2019 [facility] [place] [facility] Outpatient [id number] [place] 02/25 02/25 [facility] [place] [facility] Outpatient [id number] [place] 02/25 02/25 [facility] [place] [facility] Outpatient [id number] [place] 06/01 [facility]2019 [place] [facility] [id number] [place] 06/01 06/01 [facility] [place] /2019 [facility] [place] Procedures Procedure Code Date Perfomer Comments Source APPLICATION SHORT auto-populated [facility] I LEG SPLINT-CALF TO 0 from FOOT 27628 documented (Left)<sup>1</sup> surgical case ARTHROSCOPY ANKLE auto-populated [facility] I W/EXCISION OF 0 from OSTEOCHONDRAL documented DEFECT OF TALUS surgical case AND/OR TIBIA 16224 (Left)<sup>2</s up> OPEN REDUCTION auto-populated [facility] INTERNAL FIXATION 0 from TALUS FRACTURE documented [id number] surgical case (Left)<sup>3</sup> Breast reduction, [id number] [facility] bilateral Bunionectomy [id number] [facility] Carpal tunnel [id number] [facility] syndrome of right wrist Plantar fasciitis [id number] [facility] of left foot Assessment and Plan No Data Provided for This Section Plan of Care No Data Provided for This Section Social History Social History Date Source Social History TypeResponse 02/26/2020 [facility] Social History TypeResponse 01/15/2020 [facility] Smoking Status Never smoker; Exposure to Tobacco Smoke None; Cigarette Smoking Last 365 Days No; Reg Smoking Cessation Counseling No entered on: 01/15/20 Family History No Data Provided for This Section Advance Directives No Data Provided for This Section Functional Status No Data Provided for This Section
--- OUTSIDE RECORDS SUMMARY | 2020-06-12 15:10 | XMS REPORT | Continuity of Care Document ---
:1975 Author Organization [facility] t Address 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 1-01 04:01:02 l (disorder) Maciel's 00:00: Herm mckenna syndrome 00 (disorder) Active 07/16/1976 Problem 02/28/2020 reports reaction from [facility] Osteochond Osteochond Problem Active U nivers ritis ritis ity [place] left ankle left ankle Ph ysici and joints and joints an s of left of left foot foot Special Special Problem Active Univers screening screening [place] for n for Physici other other ans specified specified viral viral diseases diseases Closed Closed Problem Active Univers nondisplac nondisplac it y of ed ed [place] fracture fracture Physic i of dome of of dome of an s left talus left [place] with with routine routine healing, healing, subsequent subsequent encounter encounter Right calf Right calf Problem Active U nivers pain pain ity of [place] Physici ans Pain of Pain of Problem Active Univers left calf left calf ity of [place] Physici ans Edema, Edema, Problem Active Univers lower lower [place] extremity [place] Plantar Plantar Problem Active Univers fasciitis fasciitis ity of [place] Physici ans Asthma Problem Active 2020-06-03 Memor ia (disorder) 23:04:35 l Asthma Luca (disorder) Active Problem 06/03/2020 [facility] Gastritis Problem Active 2020-06-03 Me moria (disorder) 23:04:35 l Williams Gastritis (disorder) Active Problem 06/03/2020 [facility] Hypertensi Problem Active 2020-06-03 M emoria ve 23:04:35 l disorder, Williams systemic Hypertensi arterial ve (disorder) disorder, systemic arterial (disorder) Active Problem 06/03/2020 [facility] Hypothyroi Problem Active 2020-06-03 M emoria dism 23:04:35 l (disorder) Burak n Hypothyroi dism (disorder) Active Problem 06/03/2020 [facility] Migraine Problem Active 2020-06-03 Mem oria (disorder) 23:04:35 l Migraine Burak n (disorder) Active Problem 06/03/2020 [facility] Morbid Problem Active 2020-06-03 Memor ia obesity 23:04:35 l (disorder) Morbid Herm mckenna obesity (disorder) Active Problem 06/03/2020 [facility] 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 23:04:35 l (disorder) 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) Active Problem 06/03/2020 [facility] Hemangioma Problem Active 2020-06-03 M emoria of 23:04:35 l intracrani Burak n al Hemangioma structure of (disorder) intracrani al structure (disorder) Active Problem 06/03/2020 [facility] Ankle pain Problem Active 2020-06-03 M emoria (finding) 23:04:35 l Ankle Luca pain (finding) Active Problem 06/03/2020 [facility] Acid Problem Active 2020-02-28 Memor ia reflux 04:01:02 l (finding) Acid Williams reflux (finding) Active Problem 02/28/2020 [facility] Allergy - Problem Active 2020-02-28 Me moria specialty 04:01:02 l (qualifier Allergy Her paulino value) - specialty (qualifier value) Active Problem 02/28/2020 [facility] Fibromyalg Problem Active 2020-02-28 M emoria ia 04:01:02 l (disorder) Burak n Fibromyalg ia (disorder) Active Problem 02/28/2020 [facility] Fracture Problem Active 2020-02-28 Mem oria of talus 04:01:02 l (disorder) Fracture He rmann of talus (disorder) Active Problem 02/28/2020 [facility] Neuropathy Problem Active 2020-02-28 M emoria (disorder) 04:01:02 l Williams Neuropathy (disorder) Active Problem 02/28/2020 [facility] Nondisplac Problem 2020-2020-02-28 2020-02-28 Memoria ed dome 8-13 04:01:02 04:01:02 l fracture 17:00: Luca of left Nondisplac 00 talus, ed dome initial fracture encounter of left for closed talus, fracture initial encounter for closed fracture 0 02/28/2020 [facility] Allergies, Adverse Reactions, Alerts Allergy Allergy Status Severity Reaction(s) Onset Inactive Treating Comm ents Source Name Type Date Date Clinician aspirin Allergy Active Univers to drug ity of (finding [place] ) Physici ans codeine Allergy Active Univers to drug ity of (finding [place] ) Physici ans aspirin aspirin Active Memoria l Williams Topamax Topamax Active Memoria l [place] codeine codeine Active Memoria sulfate sulfate l Luca Social History Smoking Status Start Date Stop Date Source Social History [facility] [place] Medications Ordered Filled Start Stop Current Ordering Indication Dosage Frequency Signature Comments Components Source Medication Medication Date Date Medication? Clinician (SIG) Name Name rizatriptan Yes 5 mg = 1 Me moria 5 MG Oral 9-15 tab, PO, l Tablet 22:44: ONCE, PRN Burak n [Maxalt] 00 for migraine headache, # 9 tab, 1 Refill(s), Pharmacy: [facility], 152.4, cm, 01/15/20 15:04:00 CDT, Height, 115.455, kg, 01/15/20 15:04:00 CDT, Weight Misc 2020-0 No 900 mL, Memoria Medication 8-13 Soln-IV, l 15:27: IV, Once, first dose 02/26/20 10:27:00 CDT, stop date 02/26/20 10:27:00 CDT LR 1,000 mL 2020-0 No 1,000 mL, M emoria 8-13 IV, 75 l 15:20: mL/hr, start date 02/26/20 10:20:00 CDT, 2.14, m2 Saline Lock 2020-0 No 10 mL, Lev trupti Flush 02-25 Soln, IV l 15:20: Push, As Indicated PRN for flush, first dose 02/26/20 10:20:00 CDT Dilaudid 2020-0 No 0.5 mg = Memor ia -13 0.5 mL, l 15:20: Injection, IV Push, q10min PRN for pain severe (7-10), first dose 02/26/20 10:20:00 CDT Demerol HCl 2020-0 No 12.5 mg = M emoria 8-13 0.5 mL, l 15:20: Injection, IV Push, Once PRN for shivers, first dose 02/26/20 10:20:00 CDT Albuterol 2020-0 No 2.5 mg = 3 Me moria 0.83 MG/ML 8-13 mL, Soln, l Inhalant 15:20: NEB, Once Herm PRN for wheezing, first dose 02/26/20 10:20:00 CDT Ondansetron 2020-0 No 4 mg = 2 Me moria 8-13 mL, l 15:20: Injection, IV Push, q15min PRN for nausea, order duration: 2 doses, first dose 02/26/20 10:20:00 CDT, stop date Limited # of times Promethazin 2020-0 No 12.5 mg = M emoria e 8-13 0.5 mL, l 15:20: Injection, Williams 00 IM, Once PRN for vomiting, first dose 02/26/20 10:20:00 CDT fentaNYL 2020-0 No 25 mcg = Memor ia 8-13 0.5 mL, l 14:50: Injection, Luca 00 IV, Once, first dose 02/26/20 9:50:00 CDT, stop date 02/26/20 9:50:00 CDT fentaNYL 2020-0 No 25 mcg = Memor ia 8-13 0.5 mL, l 14:16: Injection, IV, Once, first dose 02/26/20 9:16:00 CDT, stop date 02/26/20 9:16:00 CDT Misc 2020-0 No 1,000 mL, Memoria Medication 8-13 Soln-IV, l 13:23: IV, Once, first dose 02/26/20 8:23:00 CDT, stop date 02/26/20 8:23:00 CDT ceFAZolin 2020-0 No 2 gm, Memoria 8-13 Soln-IV, l 12:53: IV Williams 00 Piggyback, Once, first dose 02/26/20 7:53:00 CDT, stop date 02/26/20 7:53:00 CDT ondansetron 2020-0 No 4 mg = 2 Me moria 8-13 mL, l 12:53: Injection, IV, Once, first dose 02/26/20 7:53:00 CDT, stop date 02/26/20 7:53:00 CDT dexamethaso 2020-0 No 8 mg = 2 Me moria ne 8-13 mL, l 12:53: Injection, Luca 00 IV, Once, first dose 02/26/20 7:53:00 CDT, stop date 02/26/20 7:53:00 CDT ketorolac 2020-0 No 30 mg = 1 Mem oria 8-13 mL, l 12:53: Injection, Williams 00 IV, Once, first dose 02/26/20 7:53:00 CDT, stop date 02/26/20 7:53:00 CDT lidocaine 2020-0 No 100 mg = 5 Me moria 8-13 mL, l 12:41: Injection, Williams 00 IV, Once, first dose 02/26/20 7:41:00 CDT, stop date 02/26/20 7:41:00 CDT propofol 2020-0 No 200 mg = Memor ia 8-13 20 mL, l 12:41: Emulsion, Luca 00 IV, Once, first dose 02/26/20 7:41:00 CDT, stop date 02/26/20 7:41:00 CDT fentaNYL 2020-0 No 50 mcg = 1 Mem oria 8-13 mL, l 12:35: Injection, Williams 00 IV, Once, first dose 02/26/20 7:35:00 CDT, stop date 02/26/20 7:35:00 CDT midazolam 2020-0 No 1 mg = 1 Lev trupti 8-13 mL, l 12:34: Injection, Luca 00 IV, Once, first dose 02/26/20 7:34:00 CDT, stop date 02/26/20 7:34:00 CDT midazolam 2020-0 No 1 mg = 1 Lev trupti 8-13 mL, l 12:26: Injection, Luca 00 IV, Once, first dose 02/26/20 7:26:00 CDT, stop date 02/26/20 7:26:00 CDT fentaNYL 2020-0 No 50 mcg = 1 Mem oria 8-13 mL, l 12:25: Injection, Luca 00 IV, Once, first dose 02/26/20 7:25:00 CDT, stop date 02/26/20 7:25:00 CDT Cefazolin 2020-0 No 2 gm, Memoria 8-13 Soln-IV, l 12:00: IV Luca 00 Piggyback, Once, infuse over 30 minutes, first dose 02/26/20 7:00:00 CDT, stop date 02/26/20 7:00:00 CDT, patient weight 50-120 kg, Prophylaxi s LR 1,000 mL 2020-0 No 1,000 mL, M emoria 8-13 IV, 30 l 11:28: mL/hr, Williams 00 start date 02/26/20 6:28:00 CDT, 2.14, m2 Lidocaine 2020-0 No 0.2 mL, Memor ia 2% 0.2 mL 02-25 Injection, l IV Start 11:28: Subcutaneo paulino [[facility]] 00 us, Once PRN for other (see comment), first dose 02/26/20 6:28:00 CDT Allergy 2020-0 Yes mg, Oral, Memor ia Relief 8-05 Daily, 0 l 17:06: Refill(s) Tylenol PM 2020-0 Yes Oral, qHS, M emoria 8-05 0 l 17:05: Refill(s), Williams 00 sleep /pain amitriptyli 2020-0 Yes 75 mg = 1 M emoria ne 75 mg 8-05 tabs, l oral tablet 17:04: Oral, qHS, 0 Refill(s), sleep levothyroxi 2020-0 Yes 25 mcg = 1 Memoria ne 25 mcg 8- tabs, l (0.025 mg) 17:04: Oral, Burak n oral tablet 00 Daily, 0 Refill(s), hypothyroi d rizatriptan 2020-0 Yes 5 mg = 1 Me moria 5 mg oral 8-05 tabs, l tablet 17:04: Oral, Luca 00 Daily, 0 Refill(s) pantoprazol 2020-0 Yes 40 mg = 1 M emoria e 40 mg 8-05 tabs, l oral 17:04: Oral, Luca delayed 00 Daily, 0 release Refill(s), tablet GERD meloxicam 2020-0 Yes 7.5 mg = 1 Me moria 7.5 MG Oral 8-05 tabs, l Tablet 17:04: Oral, Williams 00 Daily, 0 Refill(s), joint pain amitriptyli 2020-0 Yes = 1 tab, Me moria ne 75 mg 7-02 PO, l oral tablet 20:24: Bedtime, # Luca 00 30 ea, 5 Refill(s), Pharmacy: [facility], 152.4, cm, 01/15/20 15:04:00 CDT, Height, 115.455, kg, 01/15/20 15:04:00 CDT, Weight rizatriptan 2020-0 Yes 5 mg = 1 Me moria 5 MG Oral 7-02 tab, PO, l Tablet 20:24: ONCE, PRN Burak n [Maxalt] 00 for migraine headache, # 9 tab, 1 Refill(s), Pharmacy: [facility], 152.4, cm, 01/15/20 15:04:00 CDT, Height, 115.455, kg, 01/15/20 15:04:00 CDT, Weight rizatriptan 2020-0 Yes 5 mg = 1 Me moria 5 MG Oral 5-19 tab, PO, l Tablet 21:06: ONCE, PRN Burak n [Maxalt] 00 for migraine headache, # 9 tab, 1 Refill(s), Pharmacy: [facility] amitriptyli 2019-0 Yes = 1 tab, Me moria ne 75 mg 5-19 PO, l oral tablet 21:06: Bedtime, # Luca 00 30 ea, 1 Refill(s), Pharmacy: [facility] amitriptyli 2018- Yes 75 mg = 1 M emoria ne 75 mg 8-22 tab, PO, l oral tablet 18:27: Bedtime, # Luca 00 30 tab, 1 Refill(s), Pharmacy: [facility] rizatriptan 2018-0 Yes 5 mg = 1 Me moria 5 MG Oral 8-02 tab, PO, l Tablet 20:24: ONCE, PRN Burak n [Maxalt] 09 for migraine headache, # 9 tab, 1 Refill(s), Pharmacy: [facility] thiamine 2018- Yes 100 mg = 1 Mem oria 100 mg oral 8-02 tab, PO, l tablet 20:23: Daily, X Williams 17 30 day, # 30 tab, 3 Refill(s), Pharmacy: [facility] cyanocobala 2018-0 Yes 1,000 Memor ia min 1000 8-02 microgram l mcg 20:23: = 1 tab, Williams sublingual 13 SL, Daily, tablet # 30 tab, 2 Refill(s), Pharmacy: [facility] amitriptyli 2018-0 Yes 50 mg = 1 M emoria ne 50 mg 8-02 tab, PO, l oral tablet 20:23: Bedtime, # Williams 09 30 tab, 1 Refill(s), Pharmacy: [facility] rizatriptan No 5 mg = 1 Me moria 5 MG Oral 7-13 tab, PO, l Tablet 01:53: Daily, PRN Antonia nn [Maxalt] 00 for migraine headache, X 6 day, # 6 tab, 1 Refill(s), Pharmacy: [facility] amitriptyli No 50 mg = 1 M emoria ne 50 mg 7-13 tab, PO, l oral tablet 01:53: Bedtime, # Luca 00 30 tab, 1 Refill(s), Pharmacy: [facility] frovatripta No 2.5 mg = 1 Memoria n 2.5 mg 6-27 tab, PO, l oral tablet 15:37: Daily, PRN Luca 00 for migraine headache, May repeat another dose at least 2 hours after the first dose, X 3 day, # 9 tab, 2 Refill(s), Pharmacy: [facility] eletriptan No See Memoria 40 MG Oral 6-25 Instructio l Tablet 23:35: ns, PO, Luca [Relpax] 00 Take 1-2 tabs orally at onset of migraine, may repeat dose once in 2 hours, X 3 day, # 6 tab, 1 Refill(s), Pharmacy: [facility] amitriptyli Yes 25 mg = 1 M emoria ne 25 mg 6-11 tab, PO, l oral tablet 21:16: Bedtime, # Williams 00 30 tab, 3 Refill(s), Pharmacy: [facility] cyanocobala Yes 1,000 Memor ia min 1000 6-07 microgram l mcg 19:39: = 1 tab, Luca sublingual 00 SL, Daily, tablet # 30 tab, 2 Refill(s), Pharmacy: [facility] thiamine Yes 100 mg = 1 Mem oria 100 mg oral 5-17 tab, PO, l tablet 18:13: Daily, X Luca 00 30 day, # 30 tab, 3 Refill(s), Pharmacy: [facility] amitriptyli Yes 10 mg = 1 M emoria ne 10 mg 5-10 tab, PO, l oral tablet 20:44: Bedtime, # Luca 00 30 tab, 3 Refill(s), Pharmacy: [facility] gabapentin 2019- Yes 300 mg = 1 M emoria 300 MG Oral 5-10 cap, PO, l Capsule 20:28: BID, # 90 Antonia nn 00 cap, 1 Refill(s) cyclobenzap No 10 mg = 1 M emoria rine 10 mg 5-10 tab, PO, l oral tablet 20:28: TID, PRN He rmann 00 for spasms, # 30 tab, 0 Refill(s) escitalopra Yes 20 mg = 1 M emoria m 20 mg 5-10 tab, PO, l oral tablet 20:28: Daily, # He rmann 00 30 tab, 0 Refill(s) levothyroxi Yes 50 Memori a ne 50 mcg 5-10 microgram l (0.05 mg) 20:28: = 1 tab, Herm mckenna oral tablet 00 PO, Daily, # 30 tab, 0 Refill(s) Levothyroxi Levothyroxi Yes M.A. U nivers ne Sodium ne Sodium ity o f TABS TABS [place] Physici ans Meloxicam Meloxicam Yes M.A. Unive rs TABS TABS ity of [place] Physici ans Amitriptyli Amitriptyli Yes M.A. U nivers ne HCl TABS ne HCl TABS i ty of [place] Physici ans Vital Signs Vital Name Observation Time Observation Value Comments Source Respitory Rate 2020-02-26 16:32:00 Memori al Luca Systolic (mm Hg) 2020-02-26 16:32:00 Lev rial Williams Diastolic (mm Hg) 2020-02-26 16:32:00 Mem orial Luca Heart Rate 2020-02-26 16:00:00 [facility] [place] Respitory Rate 2020-02-26 16:00:00 Memori al [place] Systolic (mm Hg) 2020-02-26 16:00:00 Lev rial Williams Diastolic (mm Hg) 2020-02-26 16:00:00 Mem orial Luca Heart Rate 2020-02-26 15:50:00 [facility] Williams Respitory Rate 2020-02-26 15:50:00 Memori al Williams Systolic (mm Hg) 2020-02-26 15:50:00 Lev rial Williams Diastolic (mm Hg) 2020-02-26 15:50:00 Mem orial Luca Heart Rate 2020-02-26 15:40:00 [facility] Williams Temperature Oral (F) 2020-02-26 15:20:00 37.0 Sole [facility] [place] Temperature Oral (F) 2020-02-26 11:25:00 37.2 Sole [facility] Williams Height 2020-02-26 11:25:00 158 cm Memorial Williams Height 2020-02-18 16:59:00 158 cm [facility] Luc[place] Systolic blood 2020-02-02 14:39:00 134 mm[Hg] Univer sity of pressure [place] Physician s Diastolic blood 2020-02-02 14:39:00 64 mm[Hg] Unive rsity of pressure [place] Physician s Body height 2020-02-02 14:39:00 63 [in_us] Universi ty of [place] Physician s Weight 2020-02-02 14:39:00 147 [lb_av] Universi ty of [place] Physician s Body mass index 2020-02-02 14:39:00 26.04 kg/m2 Unive rsity of (BMI) [Ratio] [place] Physicia ns Heart Rate 2020-02-02 14:39:00 74 /min Universi ty [facility] Physician s Systolic (mm Hg) 2020-01-15 20:04:00 Lev rial Williams Diastolic (mm Hg) 2020-01-15 20:04:00 Mem orial Williams Heart Rate 2020-01-15 20:04:00 [facility] Williams Respitory Rate 2020-01-15 20:04:00 Memori al Williams Height 2020-01-15 20:04:00 152.4 cm [facility] Williams Weight 2020-01-15 20:04:00 [facility] Williams BMI Calculated 2020-01-15 20:04:00 Memori al Williams Systolic (mm Hg) 2019-12-02 20:40:00 Lev rial Luca Diastolic (mm Hg) 2019-12-02 20:40:00 Mem orial Luc[place] Heart Rate 2019-12-02 20:40:00 [facility] Williams Respitory Rate 2019-12-02 20:40:00 Memori al [place] Height 2019-12-02 20:40:00 152.4 cm [facility] Williams Weight 2019-12-02 20:40:00 [facility] Williams BMI Calculated 2019-12-02 20:40:00 Memori al Williams Weight 2019-02-14 19:40:00 [facility] Williams BMI Calculated 2019-02-14 19:40:00 Memori al Williams Height 2019-02-14 19:40:00 160.02 cm [facility] Williams Respitory Rate 2019-02-14 19:40:00 Memori al Luc[place] Heart Rate 2019-02-14 19:40:00 [facility] [place] Systolic (mm Hg) 2019-02-14 19:40:00 Lev rial Williams Diastolic (mm Hg) 2019-02-14 19:40:00 Mem orial Williams BMI Calculated 2018-12-24 20:38:00 Memori al Luc[place] Weight 2018-12-24 20:38:00 [facility] Williams Height 2018-12-24 20:38:00 157.48 cm [facility] Luc[place] Systolic (mm Hg) 2018-12-24 20:38:00 Lev rial Williams Diastolic (mm Hg) 2018-12-24 20:38:00 Mem orial Williams Respitory Rate 2018-12-24 20:38:00 Memori al Williams Heart Rate 2018-12-24 20:38:00 [facility] Luca Height 2018-12-20 19:20:00 152.4 cm [facility] Luca BMI Calculated 2018-12-20 19:20:00 Memori al [place] Weight 2018-12-20 19:20:00 [facility] Williams Systolic (mm Hg) 2018-12-20 19:20:00 Lev rial Luca Diastolic (mm Hg) 2018-12-20 19:20:00 Mem orial Luca Heart Rate 2018-12-20 19:20:00 [facility] Williams Respitory Rate 2018-12-20 19:20:00 Memori al Williams Systolic (mm Hg) 2018-11-22 19:23:00 Lev rial Luca Diastolic (mm Hg) 2018-11-22 19:23:00 Mem orial Williams Respitory Rate 2018-11-22 19:23:00 Memori al Williams Height 2018-11-22 19:23:00 157.48 cm Memorial Luca Weight 2018-11-22 19:23:00 [facility] Williams BMI Calculated 2018-11-22 19:23:00 Carissa Redman Heart Rate 2018-11-22 19:23:00 [facility] Procedures Procedure Date / Time Performing Clinician Source Performed [MMD] US Lower Extremity 2020-05-31 00:00:00 [facility] Venous Doppler Bilateral Physici ans Post Op Promis 29 Survey 2020-03-12 00:00:00 [facility] Physicians APPLICATION SHORT LEG 2020-02-26 13:13:00 Carissa Redman SPLINT-CALF TO FOOT 36588 (Left)<sup>1</sup> ARTHROSCOPY ANKLE 2020-02-26 13:13:00 [facility] ermmckenna 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 90049 (Left)<sup>2</sup> OPEN REDUCTION INTERNAL 2020-02-26 13:13:00 Lev rial Luca FIXATION TALUS FRACTURE [id number] (Left)<sup>3</sup> [L] 2019 2020-02-05 00:00:00 [place] [facility] [place] Coronavirus (COVID-19), Physicia ns MARK [UTP] Ortho - Surgery 2020-02-02 00:00:00 [facility] Scheduling Physicians History of Breast [facility] reduction Physicians History of Carpal tunnel Univers [facility] surgery Physicians Breast reduction, [facility] nn bilateral Bunionectomy [facility] Carpal tunnel syndrome [facility] of right wrist Plantar fasciitis of [facility] left foot Plan of Care Planned Activity Planned Date Details Comments Source Diagnostic Test 2020-02-02 [UTP] Ortho - [facility] Pending 00:00:00 Surgery Scheduling Physician s [code = [UTP] Ortho - Surgery Scheduling] Encounters Start End Encounter Admission Attending Care Care Encounter Source Date/Time Date/Time Type Type Clinicians Facility Department ID 2020-06-01 2020-06-01 Outpatient VIRGILIO Espinal MISCHER [id number] 14:00:00 14:00:00 Malcom 08 Santos 2020-05-31 2020-05-31 [facility] [id number] Univers 10:00:00 10:00:00 tRAJI CARPIO, - Sugar ity of LARA ALEGRIA [address] DPRaeann Physici ans 2020-05-10 2020-05-10 [facility] [id number] Univers 09:00:00 09:00:00 t; ARJI JEAN BAPTISTE, - Sugar ity of [place], DPM [address] [place] DPM Physici ans 2020-04-27 2020-04-27 [id number] Univers 14:45:00 14:45:00 t; RAJI JEAN BAPTISTE, - Sugar ity of [place], DPM [place] [address] [place] DPM Physici ans 2020-03-29 2020-03-29 [id number] Univers 13:00:00 13:00:00 t; RAJI JEAN BAPTISTE, - Sugar ity of [place], DPM [place] [address] [place] DPM Physici ans 2020-03-08 2020-03-08 [id number] Univers 11:15:00 11:15:00 t; RAJI JEAN BAPTISTE, - Sugar ity of [place], DPM [place] [address] [place] DPM Physici ans 2020-02-26 2020-02-26 Outpatient Markel [id number] 05:46:09 11:30:00 Raji 8 2020-02-26 2020-02-26 [id number] Univers 10:30:00 10:30:00 t; RAJI JEAN BAPTISTE, - Sugar ity of [place], DPM [place] [address] [place] DPM Physici ans 2020-02-02 2020-02-02 [id number] Univers 10:45:00 10:45:00 t; RAJI JEAN BAPTISTE, - Sugar ity of RAJI, DPM [place] [address] [place] DPM Physici ans 2020-01-15 2020-01-15 Outpatient Kylie, MHMISCHER MHMISCHER [id number] 15:00:00 23:59:59 Malcom 07 Santos 2020-01-15 2020-01-15 Outpatient Kylie MHMISCHER MHMISCHER [id number] 15:00:00 15:00:00 Malcom 06 Santos 2019-12-02 2019-12-02 Outpatient Kylie MHMISCHER MHMISCHER [id number] 15:30:00 23:59:59 Malcom 05 Santos 2019-05-23 2019-05-23 Outpatient Kylie, MHMISCHER MHMISCHER [id number] 13:15:00 13:15:00 Malcom 04 Santos 2019-03-23 2019-03-23 Emergency Harish, [facility] [id number] 12:37:57 13:11:00 Palomo Guy [id number] [place] [id number] [place] [id number] 2019-03-23 2019-03-23 Orders Doctor SPENSER [id number] 00:00:00 00:00:00 Only Unassigned, MARIA ELENA [id number] [place] [id number] 2019-02-14 2019-02-14 Outpatient Kylie, MHMISCHER MHMISCHER [id number] 15:00:00 23:59:59 Malcom 02 Santos 2018-12-24 2018-12-24 Outpatient Kylie, MHMISCHER MHMISCHER [id number] 15:15:00 23:59:59 Malcom 03 Santos 2018-12-20 2018-12-20 Outpatient Estefaníavaleri, MHMISCHER MHMISCHER [id number] 13:45:00 23:59:59 Malcom 01 Santos 2018-11-22 2018-11-22 Outpatient Kylie, MHMISCHER MHMISCHER [id number] 14:45:00 23:59:59 Malcom 00 Santos Results Test Description Test Time Test Comments Results Result Sour e Comments LABORATORY 2020-02-18 89 [facility] 17:38:00 Williams LABORATORY 2020-02-18 12 [facility] 17:38:00 Williams So Protect Me 2020-02-18 0.79 Memorial 17:38:00 Luca So Protect Me 2020-02-18 141 Memorial 17:38:00 Williams So Protect Me 2020-02-18 4.5 Memorial 17:38:00 Williams So Protect Me 2020-02-18 108 [facility] 17:38:00 Williams So Protect Me 2020-02-18 24 [facility] 17:38:00 Williams So Protect Me 2020-02-18 13.5 Memorial 17:38:00 Williams So Protect Me 2020-02-18 9.5 Memorial 17:38:00 Luca LABORATORY 2020-02-18 92 [facility] 17:38:00 Luca LABORATORY 2020-02-18 Reported Memorial 17:38:00 (02/18/20 12:38 Williams PM) LABORATORY 2020-02-18 6.4 [facility] 17:38:00 Williams LABORATORY 2020-02-18 4.37 Memorial 17:38:00 Williams LABORATORY 2020-02-18 12.7 [facility] 17:38:00 Luca LABORATORY 2020-02-18 38.3 Memorial 17:38:00 Luca LABORATORY 2020-02-18 87.5 [facility] 17:38:00 Williams LABORATORY 2020-02-18 17:38:00 Test Item Value Reference Range Interpretation Comme nts MCH (test code = MCH) 29.2 pg 27.0-31.0 [facility] [id number] 17:38:0033.3[facility] 2020-02-18 17:38:0014.2[facility] [id number] 17:38:50025Mlmdrzyx [id number] 17:38:008.3[facility] [id number] 17:38:000.1[facility] [id number] 17:38:00Reported (02/18/20 12:38 PM)[facility] [id number] 17:38:0062.2[facility] 2020-02-18 17:38:006.8[facility] [id number] 17:38:0026.9[facility] [id number] 17:38:003.6[facility] WmurylwVVYSYXTXLI0163-43-97 17:38:000.5[facility] ZxwwnqvWARMQZIHTK2972-24-23 17:38:004.0[facility] APDHHPWAWU6370-35-66 17:38:001.7[facility] ElnvbmqNQIXUBJXYH0225-22-38 17:38:000.4 [facility] XtzjdvxISQILKIIIP1315-66-59 17:38:000.2[facility] 2020-02-18 17:38:00Reported (02/18/20 12:38 PM)[facility] [place]
--- OUTSIDE RECORDS SUMMARY | 2020-06-12 15:10 | XMS REPORT | Summary of Care ---
:1975 Author Organization [facility] [place] Address [address] [place] [address]- Encounter HQ Encntr_alias(FIN) [id number] Date(s): 06/01/20 - 06/01/20 [facility] [address] [place] [address]- [phone] Attending Physician: Malcom Espinal MD Referring Physician: Leland Tipton MD Vital Signs No data available for this section Problem List Condition Effective Dates Status Health Status Informant Ankle pain(Confirmed) Active Asthma(Confirmed) Active Gastritis(Confirmed) Active Brain venous angioma(Confirmed) Active HTN - Hypertension(Confirmed) Active Hypothyroidism(Confirmed) Active Migraine(Confirmed) Active Morbid obesity(Confirmed) Active Vitamin B1 deficiency(Confirmed) Active Allergies, Adverse Reactions, Alerts Substance Reaction Severity Status codeine Active aspirin Active codeine sulfate Active Topamax Active Medications Maxalt 5 mg oral tablet 5 mg = 1 tab, PO, ONCE, PRN for migraine headache, # 9 tab, 1 Refill(s), Pharmacy: [id number], 152.4, cm, 01/15/20 15:04:00 CDT, Height, 115.455, kg, 01/15/20 15:04:00 CDT, Weight Start Date: 03/30/20 Stop Date: 05/29/20 Status: Ordered Results No data available for this section Immunizations No data available for this section Procedures No data available for this section Social History Social History Type Response Smoking Status Never smoker; Exposure to To bacco Smoke None; Cigarette Smoking Last 365 Days No; Reg Smoking Cessation Counseling No entered on: 01/15/20 Assessment and Plan No data available for this section
--- OUTSIDE RECORDS SUMMARY | 2020-06-12 15:11 | XMS REPORT | Summary of Care ---
:1975 Author Name RAJI JEAN BAPTISTE DPM Address Unavailable Unavailable , Care Team Providers Name Role Phone RAJI JEAN BAPTISTE DPM Unavailable Unavailable ALYSSA STORY, SUKHJINDER Castillo Unavailable Unavailable MARKEL BERMUDEZ [place], RAJI Palmer Unavailable Unavailable Unavailable Unavailable Unavailable Functional Status Name Dates Details Functional status health issues are not documented Status: Name Dates Details Cognitive status health issues are not documented Status: Problems Name Dates Details Special screening examination for other specified viral diseases (V73.89, Z11.59) Status: Active Closed nondisplaced fracture of dome of left talus, initial encounter (825.21, S92.145A) Status: Active Closed nondisplaced fracture of dome of left talus with routine healing, subsequent encounter (V54.19, S92.145D) Status: Active Osteochondritis dissecans, 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, 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: Active Medications Name Dates Details Levothyroxine Sodium TABS Refills: 0 Active Meloxicam TABS Refills: 0 Active Amitriptyline HCl TABS Refills: 0 Active Allergies and Adverse Reactions Name Dates Details aspirin (Allergy) Status: Active codeine (Allergy) Status: Active Past Medical History Name Dates Details History of No significant past medical history Status: Resolved Procedures Procedure Dates Details Post Op Promis 29 Survey Date: 12-Mar-2020 [L] 2019 Novel Coronavirus (COVID-19), MARK Date: 05-Feb-2020 History of Breast reduction Completed History of Bunionectomy Completed History of Carpal tunnel surgery Complet ed Immunization Name Dates Details Immunizations not documented Social History Name Dates Details - Status: Name Dates Details Never smoked tobacco (finding) Vital Signs Date Test Result Details No Known Vitals to report Results Date Description Value Details Results not documented Plan of Care Name Dates Details Planned Observations Planned Goals not documented Planned Encounters Physical Therapy Referral Ortho Appointment; RAJI JEAN BAPTISTE DPM On: 26-Apr-2020 13:00 Interventions Provided Labs/Procedures/Imaging[A] Xray ANKLE COMPLETE MIN. OF 3 VIEWS; Done: 14 Mar 2020SuppSLAVA Ferguson,GEN 2; To Be Done: 05 Feb 2020 Instructions Name Dates Details Instructions not documented Encounters Appointment; RAJI JEAN BAPTISTE DPM On: 02-Feb-2020 10:45 Encounter Diagnosis: Problem not documented Appointment; RAJI JEAN BAPTISTE DPM On: 26-Feb-2020 10:30 Encounter Diagnosis: Problem not documented Appointment; RAJI JEAN BAPTISTE DPM On: 08-Mar-2020 11:15 Encounter Diagnosis: Problem not documented Appointment; RAJI JEAN BAPTISTE DPM On: 29-Mar-2020 13:00 Encounter Diagnosis: Problem not documented
--- OUTSIDE RECORDS SUMMARY | 2020-06-12 15:11 | XMS REPORT | Summary of Care ---
:1975 Author Name Michelle Marcelino Address Unavailable Unavailable , Care Team Providers Name Role Phone MARKEL BERMUDEZ, RAJI Unavailable Unavailable ALYSSA STORY, SUKHJINDER Castillo Unavailable Unavailable MARKEL WELSH, RAJI Palmer Unavailable Unavailable Unavailable Unavailable Unavailable [...] ANKLE COMPLETE MIN. OF 3 VIEWS; Done: 29 Mar 2020 Instructions Name Dates Details Instructions not [...]
--- OUTSIDE RECORDS SUMMARY | 2020-06-12 15:11 | XMS REPORT | Summary of Care ---
:1975 Author Name MARKEL BERMUDEZ Address Unavailable Unavailable , Care Team Providers Name Role Phone MARKEL BERMUDEZ Unavailable Unavailable ALYSSA STORY Unavailable Unavailable MARKEL BERMUDEZ [place] Unavailable Unavailable Unavailable Unavailable Unavailable Functional Status [...] history Status: Resolved Procedures Procedure Dates Details History of Breast reduction Completed History of [...] Observations Planned Goals not documented Planned Encounters Appointment; RAJI JEAN BAPTISTE DPM On: 31-May-2020 10:00 Interventions Provided Labs/Procedures/Imaging[A] Xray ANKLE COMPLETE MIN. OF 3 VIEWS; Done: 10 May 2020PlanPatient Education/Instructions: Patient education and reassurance was provided for better understanding of the diagnosis and treatment plan. An opportunity to ask questions was provided. X-ray images/reports were reviewed. Findings were discussed in detail. Follow Up: Return to the clinic in 3 weeks or as needed. x-ray(s) needed at next visit. Instructions Name Dates Details Instructions not documented Encounters Appointment; RAJI JEAN BAPTISTE DPM On: 02-Feb-2020 10:45 Encounter Diagnosis: Problem not documented Appointment; RAJI JEAN BAPTISTE DPM On: 26-Feb-2020 10:30 Encounter Diagnosis: Problem not documented Appointment; RAJI JEAN BAPTISTE DPM On: 08-Mar-2020 11:15 Encounter Diagnosis: Problem not documented Appointment; RAJI JEAN BAPTISTE DPM On: 29-Mar-2020 13:00 Encounter Diagnosis: Problem not documented Appointment; RAJI JEAN BAPTISTE DPM On: 27-Apr-2020 14:45 Encounter Diagnosis: Problem not documented Appointment; RAJI JEAN BAPTISTE DPM On: 10-May-2020 9:00 Encounter Diagnosis: Problem not documented
--- OUTSIDE RECORDS SUMMARY | 2020-06-12 15:11 | XMS REPORT | Summary of Care ---
:1975 Author Name Sylvie CESPEDES Address Unavailable Unavailable , Care Team Providers Name Role Phone [facility] Unavailable Unavailable ALYSSA STORY Unavailable Unavailable MARKEL BERMUDEZ [place] Unavailable Unavailable Unavailable Unavailable Unavailable Functional Status [...] Post Op Promis 29 Survey Date: 12-Mar-2020 History of Breast reduction Completed History of [...] MIN. OF 3 VIEWS; Done: 10 May 2020 Instructions Name Dates Details Instructions not [...]
--- OUTSIDE RECORDS SUMMARY | 2020-06-12 15:11 | XMS REPORT | Summary of Care ---
:1975 Author Name RAJI JEAN BAPTISTE DPM Address Unavailable Unavailable , Care Team Providers Name Role Phone RAJI JEAN BAPTISTE DPM Unavailable Unavailable ALYSSA STORY, SUKHJINDER Castillo Unavailable Unavailable MARKEL BERMUDEZ [place], RAJI S Unavailable Unavailable Unavailable Unavailable Unavailable Functional Status Name Dates Details Functional status health issues are not documented Status: Name Dates Details Cognitive status health issues are not documented Status: Problems Name Dates Details Special screening examination for other specified viral diseases (V73.89, Z11.59) Status: Active Closed nondisplaced fracture of dome of left talus, initial encounter (825.21, S92.145A) Status: Active Osteochondritis dissecans, 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 OF 3 VIEWS; Done: 08 Mar 2020PlanPatient Education/Instructions: Patient education and reassurance was provided for better understanding of the diagnosis and treatment plan. An opportunity to ask questions was provided. X-ray images/reports were reviewed. Findings were discussed in detail. Weightbearing status: non-weight bearing The patient's sutures were removed under sterile conditions. Steri-strips were applied to the affected area. A left short leg non-weight bearing cast was applied. The skin around the area appeared dry. The skin color was normal. The skin temperature was normal. Pulses in casted extremity were normal.There was no blanching in the affected area. Capillary refill after the procedure appeared normal. The patient tolerated the procedure well. The patient verbalized understanding of all information given regarding proper care of the cast. Follow Up: Return to the clinic in 3 weeks or as needed. Please have cast(s) removed at next visit. x-ray(s) needed at next visit. Instructions Name Dates Details Instructions not documented Encounters Appointment; RAJI JEAN BAPTISTE DPM On: 02-Feb-2020 10:45 Encounter Diagnosis: Problem not documented Appointment; RAJI JEAN BAPTISTE DPM On: 26-Feb-2020 10:30 Encounter Diagnosis: Problem not documented Appointment; RAJI JEAN BAPTISTE DPM On: 08-Mar-2020 11:15 Encounter Diagnosis: Problem not documented
--- OUTSIDE RECORDS SUMMARY | 2020-06-12 15:11 | XMS REPORT | Summary of Care ---
:1975 Author Name MARKEL BERMUDEZ Address Unavailable Unavailable , Care Team Providers Name Role Phone MARKEL BERMUDEZ Unavailable Unavailable ALYSSA STORY Unavailable Unavailable MARKEL BERMUDEZ [place] Unavailable Unavailable Unavailable Unavailable Unavailable Functional Status [...] Details Planned Observations Planned Goals not documented Interventions Provided Labs/Procedures/Imaging[A] Xray ANKLE COMPLETE MIN. OF 3 VIEWS; Done: 27 Apr 2020 Instructions Name Dates Details Instructions not [...]
--- OUTSIDE RECORDS SUMMARY | 2020-06-12 15:11 | XMS REPORT | Summary of Care ---
:1975 Author Name MARKEL LAURENRaeann Address Unavailable Unavailable , Care Team Providers Name Role Phone MARKEL AGUILARM Unavailable Unavailable ALYSSA STORY Unavailable Unavailable MARKEL AGUILARM [place] Unavailable Unavailable Unavailable Unavailable Unavailable Functional [...] MIN. OF 3 VIEWS; Done: 27 Apr 2020PlanPatient Education/Instructions: Patient education and reassurance was provided for better understanding of the diagnosis and treatment plan. An opportunity to ask questions was provided. X-ray images/reports were reviewed. Findings were discussed in detail. Follow Up: Please schedule an appointment as needed for any future problems or concerns. Instructions Name Dates Details Instructions not documented [...]
--- OUTSIDE RECORDS SUMMARY | 2020-06-12 15:11 | XMS REPORT | Summary of Care ---
:1975 Author Name MARKEL BERMUDEZ Address Unavailable Unavailable , Care Team Providers Name Role Phone MARKEL BERMUDEZ Unavailable Unavailable ALYSSA STORY Unavailable Unavailable MARKEL BERMUDEZ [place] Unavailable Unavailable Unavailable Unavailable Unavailable Functional Status [...]
--- OUTSIDE RECORDS SUMMARY | 2020-06-12 15:11 | XMS REPORT | Summary of Care ---
[...] MIN. OF 3 VIEWS; Done: 08 Mar 2020 Instructions Name Dates Details Instructions not documented Encounters Appointment; RAJI JEAN BAPTISTE DPM On: 02-Feb-2020 10:45 Encounter Diagnosis: Problem not documented Appointment; RAJI JEAN BAPTISTE DPM On: 26-Feb-2020 10:30 Encounter Diagnosis: Problem not documented Appointment; RAJI JEAN BAPTISTE DPM On: 08-Mar-2020 11:15 Encounter Diagnosis: Problem not documented
--- OUTSIDE RECORDS SUMMARY | 2020-06-12 15:11 | XMS REPORT | Summary of Care ---
:1975 Author Name La Nena Mercer LVN Address Unavailable Unavailable , Care Team Providers Name Role Phone ALYSSA STORY, SUKHJINDER Castillo Unavailable Unavailable RAJI ROQUE DPM Unavailable Unavailable Unavailable Unavailable Unavailable Functional Status [...] Dates Details Levothyroxine Sodium TABS Refills: 0 M.A.Active Meloxicam TABS Refills: 0 M.A.Active Amitriptyline HCl TABS Refills: 0 M.A.Active Allergies and Adverse Reactions Name Dates Details [...] Encounters Appointment; RAJI JEAN BAPTISTE DPM On: 27-Apr-2020 11:15 Instructions Name Dates Details Instructions not documented [...]
--- OUTSIDE RECORDS SUMMARY | 2020-06-12 15:12 | XMS REPORT | Summary of Care ---
:1975 Author Name Sylvie CESPEDES Address Unavailable Unavailable , Care Team Providers Name Role Phone ALYSSA STORY Unavailable Unavailable MARKEL BERMUDEZ [place] Unavailable Unavailable Unavailable Unavailable Unavailable Functional Status [...] Dates Details Levothyroxine Sodium TABS Refills: 0 M.D.Active Meloxicam TABS Refills: 0 M.D.Active Amitriptyline HCl TABS Refills: 0 M.D.Active Allergies and Adverse Reactions Name Dates Details [...] RAJI JEAN BAPTISTE DPM On: 31-May-2020 10:00 Instructions Name Dates Details Instructions not documented [...]
--- OUTSIDE RECORDS SUMMARY | 2020-06-12 15:12 | XMS REPORT | Summary of Care ---
:1975 Author Name Sylvie CESPEDES Address Unavailable Unavailable , Care Team Providers Name Role Phone MARKEL DPM Unavailable Unavailable ALYSSA STORY Unavailable Unavailable MARKEL DPM [place] Unavailable Unavailable Unavailable Unavailable Unavailable Functional [...] left alison t (732.7, 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: Active Right calf pain (729.5, M79.661) Status: Active Pain of left calf (729.5, M79.662) Statu s: Active Edema, lower extremity (782.3, R60.0) St atus: Active Plantar fasciitis (728.71, M72.2) Status : Active Medications Name Dates Details Levothyroxine Sodium TABS Refills: 0 Active Meloxicam TABS Refills: 0 Active Amitriptyline HCl TABS Refills: 0 Active Allergies and Adverse Reactions Name Dates Details aspirin (Allergy) Status: Active codeine (Allergy) Status: Active Past Medical History Name Dates Details History of No significant past medical history Status: Resolved Procedures Procedure Dates Details [MMD] US Lower Extremity Venous Doppler Bilateral Date: History of Breast reduction Completed History of [...] Observations Planned Goals not documented Interventions Provided Labs/Procedures/Imaging[MMD] US Lower Extremity Venous Doppler Bilateral; To Be Done: 31 May 2020[A] Xray ANKLE COMPLETE MIN. OF 3 VIEWS; Done: 31 May 2020 Instructions Name Dates Details Instructions [...] 10-May-2020 9:00 Encounter Diagnosis: Problem not documented Appointment; RAJI JEAN BAPTISTE DPM On: 31-May-2020 10:00 Encounter Diagnosis: Problem not documented
--- OUTSIDE RECORDS SUMMARY | 2020-06-12 15:12 | XMS REPORT | Summary of Care ---
:1975 Author Name Sylvie CESPEDES Address Unavailable Unavailable , Care Team Providers Name Role Phone ALYSSA STORY Unavailable Unavailable MARKEL STORY Unavailable Unavailable Unavailable Unavailable Unavailable Functional Status [...]
--- OUTSIDE RECORDS SUMMARY | 2020-06-12 15:12 | XMS REPORT | Summary of Care ---
:1975 Author Name Sylvie CESPEDES Address Unavailable Unavailable , Care Team Providers Name Role Phone ALYSSA STORY Unavailable Unavailable MARKEL WELSH Unavailable Unavailable Unavailable Unavailable Unavailable Functional Status [...] Details Planned Observations Planned Goals not documented Instructions Name Dates Details Instructions not documented [...]
--- OUTSIDE RECORDS SUMMARY | 2020-06-12 15:12 | XMS REPORT | Summary of Care ---
:1975 Author Name MARKEL BERMUDEZ Address Unavailable Unavailable , Care Team Providers Name Role Phone MARKEL BERMUDEZ Unavailable Unavailable ALYSSA STORY Unavailable Unavailable MARKEL BERMUDEZ [place] Unavailable Unavailable Unavailable Unavailable Unavailable Functional Status [...]
--- OUTSIDE RECORDS SUMMARY | 2020-06-12 15:12 | XMS REPORT | Summary of Care ---
[...] 11:15 Encounter Diagnosis: Problem not documented Appointment; RJAI JEAN BAPTISTE DPM On: 29-Mar-2020 13:00 Encounter Diagnosis: Problem not documented Appointment; RAJI JEAN BAPTISTE DPM On: 27-Apr-2020 14:45 Encounter Diagnosis: Problem not documented Appointment; RAJI JEAN BAPTISTE DPM On: 10-May-2020 9:00 Encounter Diagnosis: Problem not documented Appointment; RAJI JEAN BAPTISTE DPM On: 31-May-2020 10:00 Encounter Diagnosis: Problem not documented
--- OUTSIDE RECORDS SUMMARY | 2020-06-12 15:13 | XMS REPORT | Summary of Care ---
:1975 Author Name Sylvie PANTOJAN Address Unavailable Unavailable , Care Team Providers Name Role Phone ALYSSA STORY Unavailable Unavailable MARKEL WELSH Unavailable Unavailable Unavailable Unavailable Unavailable Functional Status Name Dates Details Functional status health issues are not documented Status: Name Dates Details Cognitive status health issues are not documented Status: Problems Name Dates Details Closed nondisplaced fracture of dome of left talus, initial encounter (825.21, S92.145A) Status: Active Closed nondisplaced fracture of dome of left talus with routine healing, subsequent encounter (V54.19, S92.145D) Status: Active Pain of left calf (729.5, M79.662) Statu s: Active Plantar fasciitis (728.71, M72.2) Status : Active Edema, lower extremity (782.3, R60.0) St atus: Active Special screening examination for other specified viral diseases (V73.89, Z11.59) Status: Active Right calf pain (729.5, M79.661) Status: Active Osteochondritis dissecans, left ankle and [...] History of Breast reduction Completed History of Carpal tunnel surgery Complet ed History of Bunionectomy Completed Immunization Name Dates Details Immunizations not documented [...]
--- OUTSIDE RECORDS SUMMARY | 2020-06-12 15:13 | XMS REPORT | Summary of Care ---
[...] MIN. OF 3 VIEWS; Done: 31 May 2020Plan Patient Education/Instructions: Patient education and reassurance was provided for better understanding of the diagnosis and treatment plan. An opportunity to ask questions was provided. X-ray images/reports were reviewed. Findings were discussed in detail. Orders: STAT bilateral lower extremity Venous Doppler's were ordered. Follow Up: I will call her with her results once they are available.I have recommended the patient try ice massage and stretching exercises as demonstrated in the office at home. She was given handouts for home exercises including written instructions and graphic depictions of the exercises to be performed. I recommended she wear shoe inserts. Instructions Name Dates Details Instructions not documented [...]
[2020-06-12] MEDS ORDERED: NA CHLORIDE 0.9% 1,000 ML ONE (15:43)
[2020-06-12] MEDS ORDERED: PROMETHAZINE INJ 25 MG/ML AMP ONE (15:43)
[2020-06-12 15:58] LABS: Absolute Lymphocytes (CBC) 2.6 K/uL (0.7-4.9); Basophils % 0.6 % (0-1.3); Hematocrit 41.4 % (36.0-45.0); Lymphocytes % 30.3 % (15.3-44.8); MPV 8.3 fL (7.6-11.3); RBC Red Blood Cell Count 4.86 M/uL (3.86-4.86)
[2020-06-12 16:17] LABS: Urine Blood TRACE (NEG); Urine Glucose NEGATIVE (NEG); Urine Protein NEGATIVE (NEG); Urine Specific Gravity 1.025 (1.005-1.030)
[2020-06-12 16:20] LABS: ALT/SGPT 21 U/L (12-78); AST/SGOT 10 U/L (15-37); Alkaline Phosphatase 91 U/L (45-117); BUN Blood Urea Nitrogen 10 mg/dL (7-18); Bicarbonate 33 mmol/L (21-32); Bilirubin Direct < 0.1 mg/dL (0-0.2); Bilirubin Total 0.4 mg/dL (0.2-1.0); Glucose Level 117 mg/dL (74-106); Lipase 178 U/L (73-393); Protein, Total 8.7 g/dL (6.4-8.2); Sodium Level 137 mmol/L (136-145)
[2020-06-12 16:26] LABS: Potassium 2.8 mmol/L (3.5-5.1)
[2020-06-12] MEDS ORDERED: FENTANYL CITR 100 MCG/2 ML ONE ×2 (16:34→18:34)
[2020-06-12] MEDS ORDERED: POTASSIUM 25 MEQ EFFERV TAB ONE (16:50)
[2020-06-12] MEDS ORDERED: KCL 20 MEQ/100 mL IVPB 20 MEQ/100 ML BAG IV ONE (16:50)
[2020-06-12] MEDS ORDERED: NA CHLORIDE 0.9% 500 ML ONE (18:34)
--- NOTE | 2020-06-12 18:56 | ER ---
Nurse's Notes [facility] Name: Trudi Villavicencio Age: 44 yrs Sex: Female : 1975 Arrival Date: 06/12/2020 Time: 15:08 Bed 15 Private MD: Diagnosis: Volume depletion, unspecified;Hypokalemia;Headache;Tachycardia, unspecified Presentation: 06/12 15:18 Chief complaint: Patient states: BP today was 133/119. My head hurts so bad for 4 days ca1 now. I feel dizzy, weird and tired. Went to my PCP on the , my BP was 124/101 and HR 124. He prescribed my HCTZ. The headache never went away and my chest is hurting a little bit too. Coronavirus screen: Client denies travel out of the [place] in the last 14 days. headache, Client presents with at least one sign or symptom that may indicate coronavirus-19. Standard/surgical mask placed on the client. Provider contacted for isolation considerations. Ebola Screen: Patient negative for fever greater than or equal to 101.5 degrees Fahrenheit, and additional compatible Ebola Virus Disease symptoms Patient denies exposure to infectious person. Patient denies travel to an Ebola-affected area in the 21 days before illness onset. No symptoms or risks identified at this time. Initial Sepsis Screen: Does the patient meet any 2 criteria? No. Patient's initial sepsis screen is negative. Does the patient have a suspected source of infection? No. Patient's initial sepsis screen is negative. Risk Assessment: Do you want to hurt yourself or someone else? Patient reports no desire to harm self or others. Onset of symptoms was June 12, 2020. 15:18 Method Of Arrival: Ambulatory ca1 15:18 Acuity: HOWIE 2 ca1 Triage Assessment: 15:22 General: Appears in no apparent distress. comfortable, Behavior is cooperative, ca1 appropriate for age, anxious. Pain: Complains of pain in face and scalp Pain currently is 10 out of 10 on a pain scale. Pain began 2-3 days ago. EENT: No signs and/or symptoms were reported regarding the EENT system. Neuro: Level of Consciousness is awake, alert, obeys commands, Oriented to person, place, time, situation. Neuro:. Neuro: Reports dizziness. Cardiovascular: Heart tones S1 S2 present Capillary refill < 3 seconds Patient's skin is warm and dry. Respiratory: Airway is patent Respiratory effort is even, unlabored, Respiratory pattern is regular, symmetrical, Breath sounds are clear bilaterally. GI: Abdomen is round non-distended, Bowel sounds present X 4 quads. Abd is soft and non tender X 4 quads. : No signs and/or symptoms were reported regarding the genitourinary system. Derm: Skin is intact, is healthy with good turgor, Skin is pink, warm \T\ dry. Musculoskeletal: Circulation, motion, and sensation intact. Capillary refill < 3 seconds. 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 - Irregular menses ca1 Historical: - Allergies: 15:22 Aspirin; ca1 15:22 Topamax; ca1 15:22 tramadol; ca1 15:22 Codeine; ca1 - Home Meds: 15:46 levothyroxine 25 mcg tab 1 tab once daily [Active]; Diphenhydramine Oral [Active]; ca1 pantoprazole 40 mg oral TbEC 1 tab once daily [Active]; hydrochlorothiazide 25 mg Oral tab 1 tab once daily [Active]; Amitriptyline 30 mg tab Oral 1 tab nightly [Active]; - PMHx: 15:22 Asthma; bleeding ulcer; Degenerative disc disease; DGD; enlarged aorta; erosive ca1 gastritis; Fibromyalgia; Herniated disc; herniated disk; neuropathy; - PSHx: 15:22 Ankle Surgery; ca1 - Immunization history:: Adult Immunizations up to date, Flu vaccine is not up to date. - Social history:: Smoking status: Patient denies any tobacco usage or history of. Screenin:23 Abuse screen: Denies threats or abuse. Denies injuries from another. Nutritional ca1 screening: No deficits noted. Tuberculosis screening: No symptoms or risk factors identified. Fall Risk IV access (20 points). Assessment: 15:23 Reassessment: see triage notes. ca1 16:44 Reassessment: Patient appears in no apparent distress at this time. Patient and/or ca1 family updated on plan of care and expected duration. Pain level reassessed. Patient is alert, oriented x 3, equal unlabored respirations, skin warm/dry/pink. 17:38 Reassessment: Patient appears in no apparent distress at this time. Patient and/or ca1 family updated on plan of care and expected duration. Pain level reassessed. Patient is alert, oriented x 3, equal unlabored respirations, skin warm/dry/pink. 18:27 Reassessment: Patient appears in no apparent distress at this time. Patient and/or ca1 family updated on plan of care and expected duration. Pain level reassessed. Patient is alert, oriented x 3, equal unlabored respirations, skin warm/dry/pink. 19:01 Reassessment: Patient appears in no apparent distress at this time. Patient is alert, ca1 oriented x 3, equal unlabored respirations, skin warm/dry/pink. D/C when potassium is completed. 19:50 Reassessment: Patient appears in no apparent distress at this time. Patient is alert, ca1 oriented x 3, equal unlabored respirations, skin warm/dry/pink. Vital Signs: 15:18 BP 137 / 96; Pulse 125; Resp 19 S; Temp 97.6(O); Pulse Ox 97% on R/A; Weight 112.94 kg ca1 (R); Height 5 ft. 3 in. (160.02 cm) (R); Pain 10/10; 16:44 BP 121 / 97; Pulse 111; Resp 20; Pulse Ox 99% on R/A; ca1 17:38 BP 117 / 85; Pulse 107; Resp 18 S; Pulse Ox 100% on R/A; ca1 18:27 BP 116 / 74; Pulse 97; Resp 20 S; Pulse Ox 100% on R/A; ca1 19:50 BP 111 / 68; Pulse 99; Resp 16 S; Pulse Ox 100% on R/A; ca1 15:18 Body Mass Index 44.11 (112.94 kg, 160.02 cm) ca1 ED Course: 15:08 Patient arrived in ED. ds1 15:13 Eva Lawrence, BECK is Primary Nurse. ca1 15:16 Federica Ibrahim FNP-C is PHCP. snw 15:16 Jacinto Thomas MD is Attending Physician. snw 15:21 Triage completed. ca1 15:22 Arm band placed on right wrist. ca1 15:24 Patient has correct armband on for positive identification. Placed in gown. Bed in low ca1 position. Call light in reach. Side rails up X2. monitor and storage bin tender on. Pulse ox on. NIBP on. Door closed. Noise minimized. Lights dimmed. Warm blanket given. 15:40 No provider procedures requiring assistance completed. Inserted saline lock: 20 gauge ca1 in right antecubital area, using aseptic technique. Blood collected. 15:40 Initial lab(s) drawn, by me, sent to lab. ca1 19:51 IV discontinued, intact, bleeding controlled, No redness/swelling at site. Pressure ca1 dressing applied. Administered Medications: 15:40 Drug: NS 0.9% 1000 ml Route: IV; Rate: 1 bolus; Site: right antecubital; ca1 18:25 Follow up: Response: No adverse reaction; IV Status: Completed infusion; IV Intake: ca1 1000ml 15:42 Drug: Phenergan 25 mg Route: IVP; Site: right antecubital; ca1 16:30 Follow up: Response: No adverse reaction; Nausea is decreased ca1 16:40 Drug: Potassium Effervescent Tablet 50 mEq Route: PO; ca1 18:25 Follow up: Response: No adverse reaction ca1 16:42 Drug: Potassium Chloride 20 mEq Route: IV; Rate: calculated rate; Site: right ca1 antecubital; 19:50 Follow up: Response: No adverse reaction; IV Status: Completed infusion; IV Intake: ca1 100ml 18:18 Drug: fentaNYL (PF) 25 mcg {Note: rass 0.} Route: IVP; Site: right antecubital; ca1 19:30 Follow up: Response: No adverse reaction; Pain is decreased; RASS: Alert and Calm (0) ca1 18:20 Drug: NS 0.9% 500 ml Route: IV; Rate: bolus; Site: right antecubital; ca1 19:50 Follow up: Response: No adverse reaction; IV Status: Completed infusion; IV Intake: ca1 500ml Intake: 18:25 IV: 1000ml; Total: 1000ml. ca1 19:50 IV: 100ml; Total: 1100ml. ca1 19:50 IV: 500ml; Total: 1600ml. ca1 Outcome: 18:55 Discharge ordered by . snw 19:51 Discharged to home ambulatory. ca1 19:51 Condition: stable 19:51 Discharge instructions given to patient, Instructed on discharge instructions, follow up and referral plans. medication usage, Demonstrated understanding of instructions, follow-up care, medications, Prescriptions given X 1. 19:51 Patient left the ED. ca1 Signatures: Federica Ibrahim, RATTLESNAKE FARMER-C RATTLESNAKE FARMER-Csnw [place] [employer]1 Acob, Eva, RN RN ca1 Corrections: (The following items were deleted from the chart) 16:49 16:44 Pulse 111bpm; Resp 20bpm; Pulse Ox 99% RA; ca1 ca1
--- NOTE | 2020-06-12 18:57 | EDPHYS ---
Physician Documentation [facility] Name: Trudi Villavicencio Age: 44 yrs Sex: Female : 1975 Arrival Date: 06/12/2020 Time: 15:08 Bed 15 Private MD: ED Physician Jacinto Thomas HPI: 06/12 15:36 This 44 yrs old Female presents to ER via Ambulatory with complaints of High snw Blood Pressure. 15:36 The patient has elevated blood pressure and discovered this at a physician's office. snw Onset: The symptoms/episode began/occurred acutely. Associated signs and symptoms: Pertinent positives: headache. Severity of symptoms: At its worst the blood pressure was 140 mm Hg. The patient has not experienced similar symptoms in the past. The patient has been recently seen by a physician: the patient's primary care provider, with similar presenting complaints, was given HCTZ. 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 - Irregular menses ca1 Historical: - Allergies: 15:22 Aspirin; ca1 15:22 Topamax; ca1 15:22 tramadol; ca1 15:22 Codeine; ca1 - Home Meds: 15:46 levothyroxine 25 mcg tab 1 tab once daily [Active]; Diphenhydramine Oral [Active]; ca1 pantoprazole 40 mg oral TbEC 1 tab once daily [Active]; hydrochlorothiazide 25 mg Oral tab 1 tab once daily [Active]; Amitriptyline 30 mg tab Oral 1 tab nightly [Active]; - PMHx: 15:22 Asthma; bleeding ulcer; Degenerative disc disease; DGD; enlarged aorta; erosive ca1 gastritis; Fibromyalgia; Herniated disc; herniated disk; neuropathy; - PSHx: 15:22 Ankle Surgery; ca1 - Immunization history:: Adult Immunizations up to date, Flu vaccine is not up to date. - Social history:: Smoking status: Patient denies any tobacco usage or history of. ROS: 15:35 Eyes: Negative for injury, pain, redness, and discharge, ENT: Negative for injury, snw pain, and discharge, Neck: Negative for injury, pain, and swelling, Cardiovascular: Negative for chest pain and edema, Positive for palpitations, Respiratory: Negative for shortness of breath, cough, wheezing, and pleuritic chest pain, Abdomen/GI: Negative for abdominal pain, nausea, vomiting, diarrhea, and constipation, Back: Negative for injury and pain, : Negative for injury, bleeding, discharge, and swelling, MS/Extremity: Negative for injury and deformity, Skin: Negative for injury, rash, and discoloration. 15:35 Psych: Negative for depression, anxiety, suicide ideation, homicidal ideation, and hallucinations. 15:35 Constitutional: Positive for body aches, malaise. 15:35 Neuro: Positive for headache. Exam: 15:34 Constitutional: This is a well developed, well nourished patient who is awake, alert, snw and in no acute distress. Head/Face: Normocephalic, atraumatic. Eyes: Pupils equal round and reactive to light, extra-ocular motions intact. Lids and lashes normal. Conjunctiva and sclera are non-icteric and not injected. Cornea within normal limits. Periorbital areas with no swelling, redness, or edema. ENT: Nares patent. No nasal discharge, no septal abnormalities noted. Tympanic membranes are normal and external auditory canals are clear. Oropharynx with no redness, swelling, or masses, exudates, or evidence of obstruction, uvula midline. Mucous membranes moist. Neck: Trachea midline, no thyromegaly or masses palpated, and no cervical lymphadenopathy. Supple, full range of motion without nuchal rigidity, or vertebral point tenderness. No Meningismus. Chest/axilla: Normal chest wall appearance and motion. Nontender with no deformity. No lesions are appreciated. 15:34 Respiratory: Lungs have equal breath sounds bilaterally, clear to auscultation and percussion. No rales, rhonchi or wheezes noted. No increased work of breathing, no retractions or nasal flaring. Abdomen/GI: Soft, non-tender, with normal bowel sounds. No distension or tympany. No guarding or rebound. No evidence of tenderness throughout. Back: No spinal tenderness. No costovertebral tenderness. Full range of motion. Skin: Warm, dry with normal turgor. Normal color with no rashes, no lesions, and no evidence of cellulitis. appears dehydrated. MS/ Extremity: Pulses equal, no cyanosis. Neurovascular intact. Full, normal range of motion. Neuro: Awake and alert, GCS 15, oriented to person, place, time, and situation. Cranial nerves II-XII grossly intact. Motor strength 5/5 in all extremities. Sensory grossly intact. Cerebellar exam normal. Normal gait. Psych: Awake, alert, with orientation to person, place and time. Behavior, mood, and affect are within normal limits. 15:34 Cardiovascular: Rate: tachycardic, Rhythm: regular, Heart sounds: normal, pt up to void and upon return to room, HR 135bpm. Vital Signs: 15:18 BP 137 / 96; Pulse 125; Resp 19 S; Temp 97.6(O); Pulse Ox 97% on R/A; Weight 112.94 kg ca1 (R); Height 5 ft. 3 in. (160.02 cm) (R); Pain 10/10; 16:44 BP 121 / 97; Pulse 111; Resp 20; Pulse Ox 99% on R/A; ca1 17:38 BP 117 / 85; Pulse 107; Resp 18 S; Pulse Ox 100% on R/A; ca1 18:27 BP 116 / 74; Pulse 97; Resp 20 S; Pulse Ox 100% on R/A; ca1 19:50 BP 111 / 68; Pulse 99; Resp 16 S; Pulse Ox 100% on R/A; ca1 15:18 Body Mass Index 44.11 (112.94 kg, 160.02 cm) ca1 MDM: 15:28 Patient medically screened. snw 18:56 Data reviewed: vital signs, nurses notes. Data interpreted: Pulse oximetry: on room air snw is 100 %. Interpretation: normal. Counseling: I had a detailed discussion with the patient and/or guardian regarding: the historical points, exam findings, and any diagnostic results supporting the discharge/admit diagnosis, lab results, the need for outpatient follow up, to return to the emergency department if symptoms worsen or persist or if there are any questions or concerns that arise at home. Response to treatment: the patient's symptoms have mildly improved after treatment, the patient's symptoms have markedly improved after treatment. Special discussion: I have referred the patient to see his PCP for further evaluation of high blood pressure. Based on the history and exam findings, there is no indication for further emergent testing or inpatient evaluation. I discussed with the patient/guardian the need to see the primary care provider for further evaluation of the symptoms. 06/12 15:22 Order name: Basic Metabolic Panel; Complete Time: 16:53 snw 06/12 15:22 Order name: CBC with Diff; Complete Time: 16:20 snw 06/12 15:22 Order name: Hepatic Function; Complete Time: 16:53 snw 06/12 15:22 Order name: Lipase; Complete Time: 16:53 snw 06/12 15:22 Order name: TSH; Complete Time: 16:53 snw 06/12 15:22 Order name: Test, Serum; Complete Time: 16:20 snw 06/12 15:39 Order name: Urine Dipstick--Ancillary (enter results); Complete Time: 16:20 eb 06/12 15:39 Order name: Urine --Ancillary (enter results); Complete Time: 16:20 eb 06/12 16:28 Order name: T4 Free; Complete Time: 16:53 EDMS 06/12 15:22 Order name: IV Saline Lock; Complete Time: 15:42 snw 06/12 15:22 Order name: Labs collected and sent; Complete Time: 15:42 snw 06/12 15:22 Order name: EKG; Complete Time: 15:24 snw 06/12 15:22 Order name: EKG - Nurse/Tech; Complete Time: 15:43 snw Administered Medications: 15:40 Drug: NS 0.9% 1000 ml Route: IV; Rate: 1 bolus; Site: right antecubital; ca1 18:25 Follow up: Response: No adverse reaction; IV Status: Completed infusion; IV Intake: ca1 1000ml 15:42 Drug: Phenergan 25 mg Route: IVP; Site: right antecubital; ca1 16:30 Follow up: Response: No adverse reaction; Nausea is decreased ca1 16:40 Drug: Potassium Effervescent Tablet 50 mEq Route: PO; ca1 18:25 Follow up: Response: No adverse reaction ca1 16:42 Drug: Potassium Chloride 20 mEq Route: IV; Rate: calculated rate; Site: right ca1 antecubital; 19:50 Follow up: Response: No adverse reaction; IV Status: Completed infusion; IV Intake: ca1 100ml 18:18 Drug: fentaNYL (PF) 25 mcg {Note: rass 0.} Route: IVP; Site: right antecubital; ca1 19:30 Follow up: Response: No adverse reaction; Pain is decreased; RASS: Alert and Calm (0) ca1 18:20 Drug: NS 0.9% 500 ml Route: IV; Rate: bolus; Site: right antecubital; ca1 19:50 Follow up: Response: No adverse reaction; IV Status: Completed infusion; IV Intake: ca1 500ml Disposition: 06/13 07:13 Co-signature as Attending Physician, Jacinto Thomas MD. rn Disposition: 06/12/20 18:55 Discharged to Home. Impression: Volume depletion, unspecified, Hypokalemia, Headache, Tachycardia, unspecified. - Condition is Stable. - Discharge Instructions: Dehydration, Adult, Potassium Content of Foods, General Headache Without Cause, Hypokalemia, Rehydration, Adult. - Prescriptions for promethazine 25 mg Oral Tablet - take 1 tablet by ORAL route every 6 hours As needed; 20 tablet. - Work release form, Medication Reconciliation Form, Thank You Letter, Antibiotic Education, Prescription Opioid Use form. - Follow up: Emergency Department; When: As needed; Reason: Worsening of condition. Follow up: Private Physician; When: 2 - 3 days; Reason: Recheck today's complaints, Continuance of care, Re-evaluation by your physician. Signatures: Dispatcher [employer] EDMS Federica Ibrahim, BID ANALYST-C BID ANALYST-Csnw Jacinto Thomas MD MD rn Acob, BECK Velasquez RN ca1 Corrections: (The following items were deleted from the chart) 06/12 19:51 18:55 06/12/2020 18:55 Discharged to Home. Impression: Volume depletion, unspecified; ca1 Hypokalemia; Headache; Tachycardia, unspecified. Condition is Stable. Discharge Instructions: Dehydration, Adult, Potassium Content of Foods, General Headache Without Cause, Hypokalemia, Rehydration, Adult. Prescriptions for promethazine 25 mg Oral Tablet - take 1 tablet by ORAL route every 6 hours As needed; 20 tablet. and Forms are Work release form, Medication Reconciliation Form, Thank You Letter, Antibiotic Education, Prescription Opioid Use. Follow up: Emergency Department; When: As needed; Reason: Worsening of condition. Follow up: Private Physician; When: 2 - 3 days; Reason: Recheck today's complaints, Continuance of care, Re-evaluation by your physician. snw
[2020-06-12 22:06] VITALS: TEMP 97.6
[2020-06-12 22:09] VITALS: O2SAT 100
[2020-06-12 22:12] VITALS: BP 111/68
== END 2020-06-12 19:51 | disposition home or self-care (01) ==
LOC: ER 15:07
DX: E86.9 Volume depletion, unspecified (principal); E87.6 Hypokalemia; R00.0 Tachycardia, unspecified; J45.909 Unspecified asthma, uncomplicated; Z88.5 Allergy status to narcotic agent; Z88.6 Allergy status to analgesic agent; Z88.8 Allergy status to other drugs, medicaments and biological substances
CPT/HCPCS: 96365; 96361; 93005; 85025; 80048; 36415; 84703; 81025; 80076; 84443; 81003; 84439; 83690; 96375; 99284; 96366; J2550; J3480; J3010 ×2; J7040; J7030

== ENCOUNTER 2020-07-15 14:35 | Emergency (ER) | payer OTHER ==
--- OUTSIDE RECORDS SUMMARY | 2020-07-15 14:38 | XMS REPORT | Continuity of Care Document ---
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, systemic N euro arterial (disorder) Hypothyroidism Active Problem 06/03/2020 Misc her (disorder) Neuro,[facility] Migraine Active Problem 06/03/2020 [facility] (disorder) [facility] Morbid obesity Active Problem 06/03/2020 Misc her (disorder) Neuro,[facility] Thiamin deficiency Active Problem 06/03/2020 [facility] [...] headache, # 9 tab, 1 Refill(s), Pharmacy: [facility], 152.4, cm, 01/15/20 15:04:00 [...] 02/25/ [facility] mL IV Start Injection, 2019 [[facility]] Subcutaneous, Once PRN for other (see [...] 2020 [place] ro ea, 5 Refill(s), Pharmacy: [facility], 152.4, cm, 01/15/20 15:04:00 CDT, Height, 115.455, kg, 01/15/20 15:04:00 CDT, Weight rizatriptan 5 MG 5 mg = 1 tab, Active ischer Oral Tablet PO, ONCE, PRN 2020 Neuro [Maxalt] for migraine headache, # 9 tab, 1 Refill(s), Pharmacy: [facility], 152.4, cm, 01/15/20 15:04:00 CDT, Height, 115.455, kg, 01/15/20 15:04:00 CDT, Weight rizatriptan 5 MG 5 mg = 1 tab, Active ischer Oral Tablet PO, ONCE, PRN 2019 Neuro [Maxalt] for migraine headache, # 9 tab, 1 Refill(s), Pharmacy: [facility] amitriptyline 75 = 1 tab, PO, Active carrie mg oral tablet Bedtime, 2019 [place] ro ea, 1 Refill(s), Pharmacy: [facility] amitriptyline 75 75 mg = 1 Active 03/06/ Misch er mg oral tablet tab, PO, 2018 Neuro Bedtime, # 30 tab, 1 Refill(s), Pharmacy: [facility] rizatriptan 5 MG 5 mg = 1 tab, Active ischer Oral Tablet PO, ONCE, PRN 2018 Neuro [Maxalt] for migraine headache, # 9 tab, 1 Refill(s), Pharmacy: [facility] thiamine 100 mg 100 mg = 1 Active 02/14/ Misch er oral tablet tab, PO, 2019 Neuro Daily, X 30 day, # 30 tab, 3 Refill(s), Pharmacy: [facility] cyanocobalamin 1,000 Active 02/14/ [facility] 1000 mcg microgram = 1 2019 Neuro sublingual tablet tab, SL, Daily, # 30 tab, 2 Refill(s), Pharmacy: [facility] amitriptyline 50 50 mg = 1 Active 02/14/ Misch er mg oral tablet tab, PO, 2019 Neuro Bedtime, # 30 tab, 1 Refill(s), Pharmacy: [facility] rizatriptan 5 MG 5 mg = 1 tab, No Longer 01/25/ [facility] Oral Tablet PO, Daily, Active 2019 Neuro [Maxalt] PRN for migraine headache, X 6 day, # 6 tab, 1 Refill(s), Pharmacy: [facility] amitriptyline 50 50 mg = 1 No Longer 01/25/ Mis benji mg oral tablet tab, PO, Active 2019 Neuro Bedtime, # 30 tab, 1 Refill(s), Pharmacy: [facility] frovatriptan 2.5 2.5 mg = 1 No Longer 01/09/ Mi carrie mg oral tablet tab, PO, Active 2019 Neuro Daily, PRN for migraine headache, May repeat another dose at least 2 hours after the first dose, X 3 day, # 9 tab, 2 Refill(s), Pharmacy: [facility] eletriptan 40 MG See No Longer 01/07/ Misch er Oral Tablet Instructions, Active 2018 Neuro [Relpax] PO, Take 1-2 tabs orally at onset of migraine, may repeat dose once in 2 hours, X 3 day, # 6 tab, 1 Refill(s), Pharmacy: [facility] amitriptyline 25 25 mg = 1 Active 12/24/ Misch er mg oral tablet tab, PO, 2019 Neuro Bedtime, # 30 tab, 3 Refill(s), Pharmacy: [facility] cyanocobalamin 1,000 Active Mischer 1000 mcg microgram = 1 2019 Neuro sublingual tablet tab, SL, Daily, # 30 tab, 2 Refill(s), Pharmacy: [facility] thiamine 100 mg 100 mg = 1 Active 11/29/ Misch er oral tablet tab, PO, 2019 Neuro Daily, X 30 day, # 30 tab, 3 Refill(s), Pharmacy: [facility] amitriptyline 10 10 mg = 1 Active 11/22/ Misch er mg oral tablet tab, PO, 2019 Neuro Bedtime, # 30 tab, 3 Refill(s), Pharmacy: [facility] gabapentin 300 MG 300 mg [...] values reflect the clinical guidelines
of the [place] [employer]. LABORATORY BUN 12 7 - [...] 02/14/2019 [facility] Respitory Rate 16 02/14/[facility] Heart Rate 83 02/14/2019 [facility] Systolic (mm Hg) 123 02/14/2019 [facility] [place] Diastolic (mm Hg) 90 02/14/2019 [facility] BMI Calculated 43.62 12/24/2018 [facility] Weight 108.182 12/24/2018 [facility] Height 157.48 cm 12/24/2018 [facility] Systolic (mm Hg) 134 12/24/2018 [facility] [place] Diastolic (mm Hg) 99 12/24/2018 [facility] Respitory Rate 16 12/24/2018 [facility] Neuro Heart Rate 112 12/24/2018 [facility] Neuro Height 152.4 cm 12/20/2018 [facility] Neuro BMI Calculated 46.58 12/20/2018 [facility] Weight 108.182 12/20/2018 [facility] Systolic (mm Hg) 117 12/20/2018 [facility] [place] Diastolic (mm Hg) 82 12/20/2018 [facility] Heart Rate 104 12/20/2018 [facility] Neuro Respitory Rate 16 12/20/2018 [facility] Systolic (mm Hg) 117 11/22/2018 [facility] [place] Diastolic (mm Hg) 90 11/22/2018 [facility] Ne uro Respitory Rate 16 11/22/2018 [facility] Neuro Height 157.48 cm 11/22/2018 [facility] Neuro Weight 106.364 11/22/2018 [facility] Neuro BMI Calculated 42.89 11/22/2018 [facility] Neuro Heart Rate 96 11/22/2018 [facility] Neuro Encounters Location Location Encounter Encounter Reason Attending ADM RI Stat Source Details Type Number For Provider Date Date Visit Outpatient [id number] [place] 11/22 [facility] Outpatient [id number] [place] 11/22 11/23 [facility] Neurology [facility] /2018 Neuro [facility] Outpatient [id number] [place] 12/20 [facility] [place] [facility]NA Outpatient [id number] [place] 12/20 12/21 [facility] [place] /2018 [facility] Outpatient [id number] [place] [facility] [id number] [place] 12/24 12/25 [facility] [place] /2018 [facility] Outpatient [id number] [place] 02/14 [facility] [place] [facility] [id number] [place] 02/14 02/15 [facility] [place] [facility] Outpatient [id number] [place] 05/23 [facility] [id number] [place] 05/23 05/23 [facility] [place] [facility] [place] Outpatient [id number] [place] 12/01 [facility] [facility]2019 [place] [facility] Outpatient [id number] [place] 12/01 12/02 [facility] [place] /2019 [facility] [place] Outpatient [id number] [place] 01/14 [facility] [place] [facility]2019 [place] Outpatient [id number] [place] 01/14 [facility] [facility]2019 [place] [facility]ulatory [id number] [place] 01/14 01/14 [facility] [place] /2019 Neuro [facility] MNA Outpatient [id number] [place] 01/14 01/15 [facility] [place] /2019 [facility] Outpatient [id number] [place] 02/25 02/25 Active [facility] [place] [facility] Outpatient [id number] [place] 02/25 02/25 [facility] [place] [facility] Outpatient [id number] [place] 06/01 [facility] [place] [facility]2019 [place] [facility] [id number] [place] 06/01 06/01 [facility] [place] /2019 Neuro [place] Procedures Procedure Code Date Perfomer Comments Source APPLICATION SHORT auto-populated [facility] LEG SPLINT-CALF TO 0 from FOOT 60922 documented (Left)<sup>1</sup> surgical case ARTHROSCOPY ANKLE auto-populated [facility] W/EXCISION OF 0 from OSTEOCHONDRAL documented DEFECT OF TALUS surgical case AND/OR TIBIA 98767 (Left)<sup>2</s up> OPEN REDUCTION auto-populated [facility] INTERNAL FIXATION 0 from TALUS FRACTURE documented [id number] surgical case (Left)<sup>3</sup> Breast reduction, [id number] [facility] bilateral Bunionectomy [id number] [facility] Carpal tunnel [id number] [facility] syndrome of right wrist Plantar fasciitis [id number] [facility] of left foot Assessment and Plan [...]
--- OUTSIDE RECORDS SUMMARY | 2020-07-15 14:39 | XMS REPORT | Continuity of Care Document ---
:1975 Author Organization [facility] t Address 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 1- 04:01:02 l (disorder) Maciel's 00:00: Herm mckenna [...] nondisplac nondisplac it y of ed ed [place] fracture fracture Physic i of dome of of dome of an s left talus left talus with with routine routine healing, healing, subsequent subsequent encounter encounter Right calf Right calf Problem Active U nivers pain pain ity of [place] Physici ans Pain of Pain of Problem Active Univers left calf left calf ity of [place] Physici ans Edema, Edema, Problem Active Univers lower lower [place] Plantar Plantar Problem Active Univers fasciitis fasciitis ity of [place] Physici ans Left ankle Left ankle Problem Active U nivers pain pain ity of [place] Physici ans Asthma Problem Active 2020-06-03 Memor ia (disorder) 23:04:35 l Asthma [place] (disorder) Active Problem 06/03/2020 [facility] Gastritis Problem Active 2020-06-03 Me moria (disorder) 23:04:35 l [place] Gastritis (disorder) Active Problem 06/03/2020 [facility] Hypertensi Problem Active 2020-06-03 M emoria ve 23:04:35 l disorder, [place] systemic Hypertensi arterial ve (disorder) disorder, systemic [...] Memor ia reflux 04:01:02 l (finding) Acid [place] reflux (finding) Active Problem 02/28/2020 [facility] Allergy [...] Active 2020-02-28 M emoria (disorder) 04:01:02 l [place] Neuropathy (disorder) Active Problem 02/28/2020 [facility] Nondisplac [...] Active Univers to drug ity of (finding [place] ) Physici ans aspirin aspirin Active Memoria l [place] Topamax Topamax Active Memoria l [place] codeine codeine Active Memoria sulfate sulfate l [place] Social History Smoking Status Start Date Stop Date Source Social History [facility] [place] Medications Ordered Filled Start Stop Current Ordering Indication Dosage Frequency Signature Comments Components Source Medication Medication Date Date Medication? Clinician (SIG) Name Name rizatriptan Yes 5 mg = 1 Me moria 5 MG Oral 9-15 tab, PO, l Tablet 22:44: ONCE, PRN Burak n [Maxalt] for migraine headache, # 9 tab, 1 Refill(s), Pharmacy: [facility], 152.4, cm, 01/15/20 15:04:00 CDT, Height, 115.455, kg, 01/15/20 15:04:00 CDT, Weight Misc 2020-0 No 900 mL, Memoria Medication 8-13 Soln-IV, l 15:27: IV, Once, first dose 02/26/20 10:27:00 CDT, stop date 02/26/20 10:27:00 CDT LR 1,000 mL 2020-0 No 1,000 mL, M emoria 8-13 IV, 75 l 15:20: mL/hr, start date 02/26/20 10:20:00 CDT, 2.14, m2 Saline Lock 2019-0 No 10 mL, Lev trupti Flush -13 Soln, IV l 15:20: Push, As Indicated PRN for flush, first dose 02/26/20 10:20:00 CDT Dilaudid 2019-0 No 0.5 mg = Memor ia 8-13 0.5 mL, l 15:20: Injection, IV Push, q10min PRN for pain severe (7-10), first dose 02/26/20 10:20:00 CDT Demerol HCl 2019-0 No 12.5 mg = M emoria 8-13 0.5 mL, l 15:20: Injection, IV Push, Once PRN for shivers, first dose 02/26/20 10:20:00 CDT Albuterol 2020-0 No 2.5 mg = 3 Me moria 0.83 MG/ML 8-13 mL, Soln, l Inhalant 15:20: NEB, Once Herm mckenna PRN for wheezing, first dose 02/26/20 10:20:00 CDT Ondansetron 2020-0 No 4 mg = 2 Me moria 8-13 mL, l 15:20: Injection, IV Push, q15min PRN for nausea, order duration: 2 doses, first dose 02/26/20 10:20:00 CDT, stop date Limited # of times Promethazin 2020-0 No 12.5 mg = M emoria e 8-13 0.5 mL, l 15:20: Injection, IM, Once PRN for vomiting, first dose 02/26/20 10:20:00 CDT fentaNYL 2020-0 No 25 mcg = Memor ia 8-13 0.5 mL, l 14:50: Injection, IV, Once, first dose 02/26/20 9:50:00 [...] gm, Memoria 8-13 Soln-IV, l 12:53: IV Piggyback, Once, first dose 02/26/20 7:53:00 CDT, stop date 02/26/20 7:53:00 CDT ondansetron 2020-0 No 4 mg = 2 Me moria 8-13 mL, l 12:53: Injection, IV, Once, first dose 02/26/20 7:53:00 CDT, stop date 02/26/20 7:53:00 CDT dexamethaso 2020-0 No 8 mg = 2 Me moria ne 8-13 mL, l 12:53: Injection, IV, Once, first dose 02/26/20 7:53:00 CDT, stop date 02/26/20 7:53:00 CDT ketorolac 2020-0 No 30 mg = 1 Mem oria 8-13 mL, l 12:53: Injection, [place] 00 IV, Once, first dose 02/26/20 7:53:00 CDT, stop date 02/26/20 7:53:00 CDT lidocaine 2020-0 No 100 mg = 5 Me moria 8-13 mL, l 12:41: Injection, [place] 00 IV, Once, first dose 02/26/20 7:41:00 CDT, stop date 02/26/20 7:41:00 CDT propofol 2020-0 No 200 mg = Memor ia 8-13 20 mL, l 12:41: Emulsion, [place] 00 IV, Once, first dose 02/26/20 7:41:00 CDT, stop date 02/26/20 7:41:00 CDT fentaNYL 2020-0 No 50 mcg = 1 Mem oria 8-13 mL, l 12:35: Injection, [place] 00 IV, Once, first dose 02/26/20 7:35:00 CDT, stop date 02/26/20 7:35:00 CDT midazolam 2020-0 No 1 mg = 1 Lev trupti 8-13 mL, l 12:34: Injection, [place] 00 IV, Once, first dose 02/26/20 7:34:00 CDT, stop date 02/26/20 7:34:00 CDT midazolam 2020-0 No 1 mg = 1 Lev trupti 8-13 mL, l 12:26: Injection, [place] 00 IV, Once, first dose 02/26/20 7:26:00 CDT, stop date 02/26/20 7:26:00 CDT fentaNYL 2020-0 No 50 mcg = 1 Mem oria 8-13 mL, l 12:25: Injection, [place] 00 IV, Once, first dose 02/26/20 7:25:00 CDT, stop date 02/26/20 7:25:00 CDT Cefazolin 2020-0 No 2 gm, Memoria 8-13 Soln-IV, l 12:00: IV [place] 00 Piggyback, Once, infuse over 30 minutes, first dose 02/26/20 7:00:00 CDT, stop date 02/26/20 7:00:00 CDT, patient weight 50-120 kg, Prophylaxi s LR 1,000 mL 2020-0 No 1,000 mL, M emoria 8-13 IV, 30 l 11:28: mL/hr, [place] 00 start date 02/26/20 6:28:00 CDT, 2.14, m2 Lidocaine 2020-0 No 0.2 mL, Memor ia 2% 0.2 mL 02-25 Injection, l IV Start 11:28: Subcutaneo Her paulino [[facility]] 00 us, Once PRN for other (see comment), first dose 02/26/20 6:28:00 CDT Allergy 2020-0 Yes mg, Oral, Memor ia Relief 8-05 Daily, 0 l 17:06: Refill(s) Tylenol PM 2020-0 Yes Oral, qHS, M emoria 8-05 0 l 17:05: Refill(s), [place] 00 sleep /pain amitriptyli 2020-0 Yes 75 mg = 1 M emoria ne 75 mg 8- tabs, l oral tablet 17:04: Oral, qHS, 0 Refill(s), sleep levothyroxi 2020-0 Yes 25 mcg = 1 Memoria ne 25 mcg 8- tabs, l (0.025 mg) 17:04: Oral, Burak n oral tablet 00 Daily, 0 Refill(s), hypothyroi d rizatriptan 2020-0 Yes 5 mg = 1 Me moria 5 mg oral 8-05 tabs, l tablet 17:04: Oral, Daily, 0 Refill(s) pantoprazol 2020-0 Yes 40 mg = 1 M emoria e 40 mg 8-05 tabs, l oral 17:04: Oral, [place] delayed 00 Daily, 0 release Refill(s), tablet GERD meloxicam 2020-0 Yes 7.5 mg = 1 Me moria 7.5 MG Oral 8-05 tabs, l Tablet 17:04: Oral, Daily, 0 Refill(s), joint pain amitriptyli 2020-0 Yes = 1 tab, Me moria ne 75 mg 7-02 PO, l oral tablet 20:24: Bedtime, # [place] 00 30 ea, 5 Refill(s), Pharmacy: [facility], 152.4, cm, 01/15/20 15:04:00 CDT, Height, 115.455, kg, 01/15/20 15:04:00 CDT, Weight rizatriptan 2020-0 Yes 5 mg = 1 Me moria 5 MG Oral 7-02 tab, PO, l Tablet 20:24: ONCE, PRN Burak n [Maxalt] 00 for migraine headache, # 9 tab, 1 Refill(s), Pharmacy: [facility], 152.4, cm, 01/15/20 15:04:00 CDT, Height, 115.455, kg, 01/15/20 15:04:00 CDT, Weight rizatriptan 2019-0 Yes 5 mg = 1 Me moria 5 MG Oral 5-19 tab, PO, l Tablet 21:06: ONCE, PRN Burak n [Maxalt] 00 for migraine headache, # 9 tab, 1 Refill(s), Pharmacy: [facility] amitriptyli 2019-0 Yes = 1 tab, Me moria ne 75 mg 5-19 PO, l oral tablet 21:06: Bedtime, # [place] 00 30 ea, 1 Refill(s), Pharmacy: [facility] amitriptyli 2018- Yes 75 mg = 1 M emoria ne 75 mg 8-22 tab, PO, l oral tablet 18:27: Bedtime, # [place] 00 30 tab, 1 Refill(s), Pharmacy: [facility] rizatriptan 2018-0 Yes 5 mg = 1 Me moria 5 MG Oral 8-02 tab, PO, l Tablet 20:24: ONCE, PRN Burak n [Maxalt] 09 for migraine headache, # 9 tab, 1 Refill(s), Pharmacy: [facility] thiamine Yes 100 mg = 1 Mem oria 100 mg oral 8-02 tab, PO, l tablet 20:23: Daily, X [place] 17 30 day, # 30 tab, 3 Refill(s), Pharmacy: [facility] cyanocobala 2018- Yes 1,000 Memor ia min 1000 8-02 microgram l mcg 20:23: = 1 tab, [place] sublingual 13 SL, Daily, tablet # 30 tab, 2 Refill(s), Pharmacy: [facility] amitriptyli 2018-0 Yes 50 mg = 1 M emoria ne 50 mg 8-02 tab, PO, l oral tablet 20:23: Bedtime, # [place] 09 30 tab, 1 Refill(s), Pharmacy: [facility] rizatriptan No 5 mg = 1 Me moria 5 MG Oral 7-13 tab, PO, l Tablet 01:53: Daily, PRN Antonia nn [Maxalt] 00 for migraine headache, X 6 day, # 6 tab, 1 Refill(s), Pharmacy: [facility] amitriptyli No 50 mg = 1 M emoria ne 50 mg 7-13 tab, PO, l oral tablet 01:53: Bedtime, # [place] 00 30 tab, 1 Refill(s), Pharmacy: [facility] frovatripta No 2.5 mg = 1 Memoria n 2.5 mg 6-27 tab, PO, l oral tablet 15:37: Daily, PRN [place] 00 for migraine headache, May repeat another dose at least 2 hours after the first dose, X 3 day, # 9 tab, 2 Refill(s), Pharmacy: [facility] eletriptan No See Memoria 40 MG Oral 6-25 Instructio l Tablet 23:35: ns, PO, [place] [Relpax] 00 Take 1-2 tabs orally at onset of migraine, may repeat dose once in 2 hours, X 3 day, # 6 tab, 1 Refill(s), Pharmacy: [facility] amitriptyli Yes 25 mg = 1 M emoria ne 25 mg 6-11 tab, PO, l oral tablet 21:16: Bedtime, # [place] 00 30 tab, 3 Refill(s), Pharmacy: [facility] cyanocobala Yes 1,000 Memor ia min 1000 6-07 microgram l mcg 19:39: = 1 tab, [place] sublingual 00 SL, Daily, tablet # 30 tab, 2 Refill(s), Pharmacy: [facility] thiamine Yes 100 mg = 1 Mem oria 100 mg oral 5-17 tab, PO, l tablet 18:13: Daily, X [place] 00 30 day, # 30 tab, 3 Refill(s), Pharmacy: [facility] amitriptyli Yes 10 mg = 1 M emoria ne 10 mg 5-10 tab, PO, l oral tablet 20:44: Bedtime, # [place] 00 30 tab, 3 Refill(s), Pharmacy: [facility] gabapentin 2019-0 Yes 300 mg = 1 M emoria 300 MG Oral 5-10 cap, PO, l Capsule 20:28: BID, # 90 Antonia nn 00 cap, 1 Refill(s) cyclobenzap 2019 No 10 mg = 1 M emoria [...] 30 tab, 0 Refill(s) Levothyroxi Levothyroxi Yes M.D. U nivers ne Sodium ne Sodium ity o f TABS TABS [place] Physici [facility] Meloxicam Meloxicam Yes M.D. Unive rs TABS TABS ity of [place] Physici ans Amitriptyli Amitriptyli Yes M.D. U nivers ne HCl TABS ne HCl TABS i ty of [place] Physici ans Vital Signs Vital Name Observation Time Observation Value Comments Source Respitory Rate 2020-02-26 16:32:00 Memori al [place] Systolic (mm Hg) 2020-02-26 16:32:00 Lev rial [place] Diastolic (mm Hg) 2020-02-26 16:32:00 Mem orial [place] Heart Rate 2020-02-26 16:00:00 [facility] [place] Respitory Rate 2020-02-26 16:00:00 Memori al [place] Systolic (mm Hg) 2020-02-26 16:00:00 Lev rial [place] Diastolic (mm Hg) 2020-02-26 16:00:00 Mem orial [place] Heart Rate 2020-02-26 15:50:00 [facility] [place] Respitory Rate 2020-02-26 15:50:00 Memori al [place] Systolic (mm Hg) 2020-02-26 15:50:00 Lev rial [place] Diastolic (mm Hg) 2020-02-26 15:50:00 Mem orial [place] Heart Rate 2020-02-26 15:40:00 [facility] [place] Temperature Oral (F) 2020-02-26 15:20:00 37.0 [facility] [place] Temperature Oral (F) 2020-02-26 11:25:00 37.2 [facility] [place] Height 2020-02-26 11:25:00 158 cm [facility] [place] Height 2020-02-18 16:59:00 158 cm [facility] [place] Systolic blood 2020-02-02 14:39:00 134 mm[Hg] Univer sity of pressure [place] Physician s Diastolic blood 2020-02-02 14:39:00 64 mm[Hg] Unive rsity of pressure [place] Physician s Body height 2020-02-02 14:39:00 63 [in_us] Universi ty [facility] [place] Physician s Weight 2020-02-02 14:39:00 147 [lb_av] Universi ty [facility] Physician s Body mass index 2020-02-02 14:39:00 26.04 kg/m2 Unive rsity of (BMI) [Ratio] [place] Physicia ns Heart Rate 2020-02-02 14:39:00 74 /min Universi ty [facility] Physician s Systolic (mm Hg) 2020-01-15 20:04:00 Lev rial [place] Diastolic (mm Hg) 2020-01-15 20:04:00 Mem orial [place] Heart Rate 2020-01-15 20:04:00 [facility] [place] Respitory Rate 2020-01-15 20:04:00 Memori al [place] Height 2020-01-15 20:04:00 152.4 cm [facility] [place] Weight 2020-01-15 20:04:00 [facility] [place] BMI Calculated 2020-01-15 20:04:00 Memori al [place] Systolic (mm Hg) 2019-12-02 20:40:00 Lev rial [place] Diastolic (mm Hg) 2019-12-02 20:40:00 Mem orial [place] Heart Rate 2019-12-02 20:40:00 [facility] [place] Respitory Rate 2019-12-02 20:40:00 Memori al [place] Height 2019-12-02 20:40:00 152.4 cm [facility] [place] Weight 2019-12-02 20:40:00 [facility] [place] BMI Calculated 2019-12-02 20:40:00 Memori al [place] Weight 2019-02-14 19:40:00 [facility] [place] BMI Calculated 2019-02-14 19:40:00 Memori al [place] Height 2019-02-14 19:40:00 160.02 cm [facility] [place] Respitory Rate 2019-02-14 19:40:00 Memori al [place] Heart Rate 2019-02-14 19:40:00 [facility] [place] Systolic (mm Hg) 2019-02-14 19:40:00 Lev rial [place] Diastolic (mm Hg) 2019-02-14 19:40:00 Mem orial [place] BMI Calculated 2018-12-24 20:38:00 Memori al [place] Weight 2018-12-24 20:38:00 [facility] [place] Height 2018-12-24 20:38:00 157.48 cm [facility] [place] Systolic (mm Hg) 2018-12-24 20:38:00 Lev rial [place] Diastolic (mm Hg) 2018-12-24 20:38:00 Mem orial [place] Respitory Rate 2018-12-24 20:38:00 Memori al [place] Heart Rate 2018-12-24 20:38:00 [facility] [place] Height 2018-12-20 19:20:00 152.4 cm [facility] [place] BMI Calculated 2018-12-20 19:20:00 Memori al [place] Weight 2018-12-20 19:20:00 [facility] [place] Systolic (mm Hg) 2018-12-20 19:20:00 Lev rial [place] Diastolic (mm Hg) 2018-12-20 19:20:00 Mem orial [place] Heart Rate 2018-12-20 19:20:00 [facility] [place] Respitory Rate 2018-12-20 19:20:00 Memori al [place] Systolic (mm Hg) 2018-11-22 19:23:00 Lev rial [place] Diastolic (mm Hg) 2018-11-22 19:23:00 Mem orial [place] Respitory Rate 2018-11-22 19:23:00 Memori al [place] Height 2018-11-22 19:23:00 157.48 cm [facility] [place] Weight 2018-11-22 19:23:00 [facility] [place] BMI Calculated 2018-11-22 19:23:00 Carissa Redman Heart Rate 2018-11-22 19:23:00 [facility] Procedures Procedure Date / Time Performing Clinician Source Performed MR Ankle wo contrast 2020-07-02 00:00:00 [facility] [id number] Physicians [MMD] US Lower Extremity 2020-05-31 00:00:00 [facility] Venous Doppler Bilateral Physici ans Post Op Promis 29 Survey 2020-03-12 00:00:00 [facility] Physicians APPLICATION SHORT LEG 2020-02-26 13:13:00 Carissa Redman SPLINT-CALF TO FOOT 44262 (Left)<sup>1</sup> ARTHROSCOPY ANKLE 2020-02-26 13:13:00 [facility] jose 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 38953 (Left)<sup>2</sup> OPEN REDUCTION INTERNAL 2020-02-26 13:13:00 Lev rial [place] FIXATION TALUS FRACTURE 34048 (Left)<sup>3</sup> [L] 2019 2020-02-05 00:00:00 [place] [facility] [place] Coronavirus (COVID-19), Physicia ns MARK [UTP] Ortho - Surgery 2020-02-02 00:00:00 [facility] Scheduling Physicians History of Breast [facility] reduction Physicians History of Carpal tunnel [facility] surgery Physicians Breast reduction, [facility] nn bilateral Bunionectomy [facility] Carpal tunnel syndrome [facility] of right wrist Plantar fasciitis of [facility] left foot Plan of Care Planned Activity Planned Date Details Comments Source Diagnostic Test 2020-02-02 [UTP] Ortho - [facility] Pending 00:00:00 Surgery Scheduling Physician s [code = [UTP] Ortho - Surgery Scheduling] Encounters Start End Encounter Admission Attending Care Care Encounter Source Date/Time Date/Time Type Type Clinicians Facility Department ID 2020-07-02 2020-07-02 Appointmen NEAL JEAN BAPTISTE Orthopedics [id number] Univers 14:30:00 14:30:00 t; RAJI JEAN BAPTISTE, - Sugar it[place] DPM [address] DPM Physici ans 2020-06-01 2020-06-01 [id number] 14:00:00 14:00:00 Malcom 08 Santos 2020-05-31 2020-05-31 [facility] [id number] Univers 10:00:00 10:00:00 t; RAJI JEAN BAPTISTE, - [place]y of [place], D[place] [address] [place] DPM Physici ans 2020-05-10 2020-05-10 [facility] [id number] Univers 09:00:00 09:00:00 t; RAJI JEAN BAPTISTE, - [place] ity of [place], DPM [place] DPM Physici ans 2020-04-27 2020-04-27 [facility] [id number] Univers 14:45:00 14:45:00 t; RAJI JEAN BAPTISTE, - [place] ity of [place], DPM [place] DPM Physici ans 2020-03-29 2020-03-[facility] [id number] Univers 13:00:00 13:00:00 t; RAJI JEAN BAPTISTE, - [place] ity of [place], DPM [place] DPM Physici ans 2020-03-08 2020-03-08 [facility] [id number] Univers 11:15:00 11:15:00 t; RAJI JEAN BAPTISTE, - [place] ity of [place], DPM [place] DPM Physici ans 2020-02-26 2020-02-26 Outpatient Markel [id number] 05:46:09 11:30:00 Raji 8 2020-02-26 2020-02-26 [facility] [id number] Univers 10:30:00 10:30:00 t; RAJI JEAN BAPTISTE, - Sugar ity of [place]I, DPM [place] DPM Physici ans 2020-02-02 2020-02-02 [facility]men [facility] [id number] Univers 10:45:00 10:45:00 t; RAJI JEAN BAPTISTE, - Sugar ity of [place]I, DPM [place] DPM Physici ans 2020-01-15 2020-01-15 Outpatient VIRGILIO Espinal MICHAEL [id number] 15:00:00 23:59:59 Malcom 07 Santos 2020-01-15 2020-01-15 Outpatient VIPUL EspinalSCHER MHMISCHER [id number] 15:00:00 15:00:00 Malcom 06 Santos 2019-12-02 2019-12-02 Outpatient VIPUL EspinalSCHER VIPULSCHER [id number] 15:30:00 23:59:59 Malcom Santos 2019-05-23 2019-05-23 Outpatient VIPUL EspinalSCHER VIPULSCHER [id number] 13:15:00 13:15:00 Malcom Santos 2019-03-23 2019-03-23 Emergency Harish, [facility] [id number] 12:37:57 13:11:00 Palomo Guy [id number] [place] [id number] [place] [id number] 2019-03-23 2019-03-23 Orders Doctor SPENSER [id number] 00:00:00 00:00:00 Only Unassigned, MARIA ELENA [id number] [place] [id number] 2019-02-14 2019-02-14 Outpatient VIPUL EspinalSCHER DIMAMISCHER [id number] 15:00:00 23:59:59 Malcom 02 Santos 2018-12-24 2018-12-24 Outpatient VIPUL EspinalSCHER MHMISCHER [id number] 15:15:00 23:59:59 Malcom 03 Santos 2018-12-20 2018-12-20 Outpatient VIPUL EspinalSCHER MHMISCHER [id number] 13:45:00 23:59:59 Malcom Santos 2018-11-22 2018-11-22 Outpatient DIMA EspinalMISCHER MHMISCHER [id number] 14:45:00 23:59:59 Malcom 00 [facility] Results Test Description Test Time Test Comments Results Result Sour e Comments [facility] 2020-02-18 89 [facility] 17:38:00 [facility] 2020-02-18 12 [facility] 17:38:00 [facility] 2020-02-18 0.79 [facility] 17:38:00 [facility] 2020-02-18 141 [facility] 17:38:00 [place] [facility] 2020-02-18 4.5 [facility] 17:38:00 [place] LABORATORY 2020-02-18 108 [facility] 17:38:00 [place] LAB[facility]AT[facility] 2020-02-18 24 [facility] 17:38:00 [place] LABORATORY 2020-02-18 13.5 [facility] 17:38:00 [place] LAB[facility]AT[facility] 2020-02-18 9.5 [facility] 17:38:00 [place] LABORATORY 2020-02-18 92 [facility] 17:38:00 [place] LABORATORY 2020-02-18 Reported [facility] 17:38:00 (02/18/20 12:38 [place] PM) LABORATORY 2020-02-18 6.4 [facility] 17:38:00 [place] LABORATORY 2020-02-18 4.37 [facility] 17:38:00 [place] LABORATORY 2020-02-18 12.7 [facility] 17:38:00 [place] LABORATORY 2020-02-18 38.3 [facility] 17:38:00 [place] LABORATORY 2020-02-18 87.5 [facility] 17:38:00 [place] LABORATORY 2020-02-18 17:38:00 Test Item Value Reference Range Interpretation Comme nts MCH (test code = MCH) 29.2 pg 27.0-31.0 [facility] [id number] 17:38:[facility].3[facility] 2020-02-18 17:38:0014.2[facility] [id number] 17:38:76598Qtkntxhj CssysghRZBWXYRBJO1155-01-98 17:38:008.3[facility] [id number] 17:38:000.1[facility] [id number] 17:38:00Reported (02/18/20 12:38 PM)[facility] [id number] 17:38:0062.2[facility] 2020-02-18 17:38:006.8[facility] HvwxwzsLBPPDDJWVO5614-84-42 17:38:0026.9[facility] DjzddiwTMIKLGZHIG2033-85-75 17:38:003.6[facility] [id number] 17:38:000.5[facility] SiefqxpSZEYILTPXG9422-11-85 17:38:004.0[facility] [place] [id number] 17:38:001.7[facility] MhfttiqDILMTMQNWO0087-49-70 17:38:000.4 Memorial [id number] 17:38:000.2[facility] 2020-02-18 17:38:00Reported (02/18/20 12:38 PM)[facility]
--- OUTSIDE RECORDS SUMMARY | 2020-07-15 14:41 | XMS REPORT | Summary of Care ---
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 OF 3 VIEWS; Done: 02 Jul 2020PlanPatient Education/Instructions: Patient education and reassurance was provided for better understanding of the diagnosis and treatment plan. An opportunity to ask questions was provided. X-ray images/reports were reviewed. Findings were discussed in detail. Orders: MRI Scan MRI: Without Contrast of the left ankle was ordered to evaluate for any post operative complications. Follow Up: Return to the clinic after imaging study completed or as needed. Patient was instructed to follow up with pain management for further evaluation. Instructions Name Dates Details Instructions not documented [...] 31-May-2020 10:00 Encounter Diagnosis: Problem not documented Appointment; RAJI JEAN BAPTISTE DPM On: 02-Jul-2020 14:30 Encounter Diagnosis: Problem not documented
--- OUTSIDE RECORDS SUMMARY | 2020-07-15 14:41 | XMS REPORT | Summary of Care ---
:1975 Author Name MARKEL BERMUDEZ Address Unavailable Unavailable , Care Team Providers Name Role Phone MARKEL BERMUDEZ Unavailable Unavailable ALYSSA STORY Unavailable Unavailable MARKEL BERMUDEZ NM Unavailable Unavailable Unavailable Unavailable Unavailable Functional Status [...] Doppler Bilateral Date: MR Ankle wo contrast 29023 Date: 02-Jul-2020 History of Breast reduction Completed [...] 10:00 Encounter Diagnosis: Problem not documented Appointment; ARJI JEAN BAPTISTE DPM On: 02-Jul-2020 14:30 Encounter Diagnosis: Problem not documented
--- OUTSIDE RECORDS SUMMARY | 2020-07-15 14:41 | XMS REPORT | Summary of Care ---
:1975 Author Name Katherine Israel Address Unavailable Unavailable , Care Team Providers [...] Encounters Appointment; RAJI JEAN BAPTISTE DPM On: 02-Jul-2020 14:30 Instructions Name Dates Details Instructions not documented [...]
--- OUTSIDE RECORDS SUMMARY | 2020-07-15 14:41 | XMS REPORT | Summary of Care ---
[...] Doppler Bilateral Date: MR Ankle wo contrast [id number] Date: 02-Jul-2020 History of Breast reduction Completed [...] 10:30 Encounter Diagnosis: Problem not documented Appointment; RJAI JEAN BAPTISTE DPM On: 08-Mar-2020 11:15 Encounter [...]
--- OUTSIDE RECORDS SUMMARY | 2020-07-15 14:42 | XMS REPORT | Summary of Care ---
[...] Doppler Bilateral Date: MR Ankle wo contrast [id number] Date: 02-Jul-2020 History of Breast reduction Completed [...]
--- OUTSIDE RECORDS SUMMARY | 2020-07-15 14:42 | XMS REPORT | Summary of Care ---
[...] Doppler Bilateral Date: MR Ankle wo contrast [id number] Date: 02-Jul-2020 History of Breast reduction Completed [...]
--- OUTSIDE RECORDS SUMMARY | 2020-07-15 14:42 | XMS REPORT | Summary of Care ---
[...] Doppler Bilateral Date: MR Ankle wo contrast [id number] Date: 02-Jul-2020 History of Breast reduction Completed [...]
[2020-07-15] MEDS ORDERED: HYDROCODONE/CHLORPHEN 5 ML/OSYR ONE (15:21)
[2020-07-15] MEDS ORDERED: dexAMETHasone 10 MG/ML VIAL ONE (15:22)
[2020-07-15] MEDS ORDERED: ONDANSETRON 4 MG (ODT) TAB ONE (15:22)
[2020-07-15] MEDS ORDERED: LEVALBUTEROL 1.25 MG/3 ML NEB ONE ×2 (15:22→16:01)
--- NOTE | 2020-07-15 16:22 | ER ---
Nurse's Notes [facility] Name: Trudi Villavicencio Age: 45 yrs Sex: Female : 1975 Arrival Date: 07/15/2020 Time: 14:36 Bed 15 Private MD: Leland Tipton Diagnosis: Asthma Presentation: 07/15 14:45 Chief complaint: Patient states: Cough x 4 days. Went to [place] yesterday, Negative for ca1 Flu, Negative for Covid. I think I have an Asthma attack, SOB today. Denies fever. Coronavirus screen: Client denies travel out of the [place] in the last 14 days. cough unrelated to allergies, shortness of breath, Client presents with at least one sign or symptom that may indicate coronavirus-19. Standard/surgical mask placed on the client. Provider contacted for isolation considerations. The client reports previous COVID testing was negative. Date of collection: July 14, 2020. Ebola Screen: Patient negative for fever greater than or equal to 101.5 degrees Fahrenheit, and additional compatible Ebola Virus Disease symptoms Patient denies exposure to infectious person. Patient denies travel to an Ebola-affected area in the 21 days before illness onset. No symptoms or risks identified at this time. Initial Sepsis Screen: Does the patient meet any 2 criteria? No. Patient's initial sepsis screen is negative. Does the patient have a suspected source of infection? No. Patient's initial sepsis screen is negative. Risk Assessment: Do you want to hurt yourself or someone else? Patient reports no desire to harm self or others. Onset of symptoms was July 15, 2020. 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 - Social history:: Smoking status: Patient denies any tobacco usage or history of. Screenin:53 Abuse screen: Denies threats or abuse. Denies injuries from another. Nutritional zb screening: No deficits noted. Tuberculosis screening: No symptoms or risk factors identified. Fall Risk None identified. Assessment: 14:51 General: Appears uncomfortable, obese, Behavior is cooperative, anxious. Pain:. Neuro: zb Level of Consciousness is awake, alert, obeys commands, Oriented to person, place, time, situation. Cardiovascular: Capillary refill < 3 seconds in bilateral fingers Patient's skin is warm and dry. Cardiovascular: Rhythm is sinus tachycardia. Respiratory: Reports shortness of breath at rest on exertion cough that is non-productive, pain with cough Airway is patent Respiratory effort is even, unlabored, shallow, Respiratory pattern is regular, Breath sounds are clear bilaterally. GI: Abdomen is round non-distended. : No signs and/or symptoms were reported regarding the genitourinary system. EENT: No signs and/or symptoms were reported regarding the EENT system. Derm: Skin is intact, is healthy with good turgor, Skin is dry, Skin is normal, Skin temperature is warm. Musculoskeletal: Circulation, motion, and sensation intact. Capillary refill < 3 seconds, in bilateral fingers. Range of motion: intact in all extremities. 15:28 Reassessment: Patient appears in no apparent distress at this time. Patient and/or zb family updated on plan of care and expected duration. Pain level reassessed. Patient is alert, oriented x 3, equal unlabored respirations, skin warm/dry/pink. pt state she is feeling better after the treatment. Patient denies pain at this time. Patient states feeling better. 16:20 Reassessment: Patient appears in no apparent distress at this time. Patient and/or zb family updated on plan of care and expected duration. Pain level reassessed. Patient is alert, oriented x 3, equal unlabored respirations, skin warm/dry/pink. pt states she feel a lot better. Vital Signs: 14:45 BP 125 / 80; Pulse 129; Resp 20 S; Temp 98.6(TE); Pulse Ox 95% on R/A; Weight 112.94 kg ca1 (R); Height 5 ft. 3 in. (160.02 cm) (R); Pain 0/10; 15:39 BP 100 / 57; Pulse 119; Resp 18; Pulse Ox 96% on R/A; zb 16:20 BP 108 / 49; Pulse 90; Resp 18; Pulse Ox 97% on R/A; zb 14:45 Body Mass Index 44.11 (112.94 kg, 160.02 cm) ca1 ED Course: 14:36 Patient arrived in ED. ag5 14:37 Leland Tipton MD is Private Physician. ag5 14:45 iJtendra Richardson NP [facility] pm1 14:45 Giuseppe Akers MD is Attending Physician. pm1 14:46 Triage completed. ca1 14:47 Arm band placed on right wrist. ca1 14:51 Brenda Kenny RN is Primary Nurse. zb 14:53 Patient has correct armband on for positive identification. Pulse ox on. NIBP on. Door zb closed. Noise minimized. 16:58 No provider procedures requiring assistance completed. Patient did not have IV access zb during this emergency room visit. Administered Medications: 15:14 Drug: Decadron 10 mg Route: IM; Site: right deltoid; zb 15:53 Follow up: Response: No adverse reaction zb 15:14 Drug: Xopenex 1.25 mg Route: Inhalation; zb 15:53 Follow up: Response: No adverse reaction zb 15:14 Drug: Tussionex Pennkinetic ER 5 ml Route: PO; zb 15:53 Follow up: Response: No adverse reaction; Marked relief of symptoms zb 15:14 Drug: Zofran (Ondansetron) 4 mg Route: PO; zb 15:53 Follow up: Response: No adverse reaction zb 15:52 Drug: Xopenex 1.25 mg Route: Inhalation; zb 16:00 Follow up: Response: No adverse reaction zb Outcome: 16:22 Discharge ordered by MD. pm1 16:58 Discharged to home ambulatory. zb 16:58 Condition: stable 16:58 Discharge instructions given to patient, Instructed on discharge instructions, follow up and referral plans. medication usage, Demonstrated understanding of instructions, follow-up care, medications, Prescriptions given X 3. 17:01 Patient left the ED. zb Signatures: Jitendra Richardson NP CAE ENGINEER pm1 Eva Lawrence RN RN ca1 Nghia Zheng ag5 Brown, Brenda, RN RN zb
--- NOTE | 2020-07-15 16:22 | EDPHYS ---
Physician Documentation [facility] Name: Trudi Villavicencio Age: 45 yrs Sex: Female : 1975 Arrival Date: 07/15/2020 Time: 14:36 Bed 15 Private MD: Leland Tipton ED Physician Giuseppe Akers HPI: 07/15 14:55 This 45 yrs old Female presents to ER via Ambulatory with complaints of pm1 Asthma Exacerbation. 14:55 The patient presents to the emergency department with wheezing, the patient was pm1 reported to have productive cough. Onset: The symptoms/episode began/occurred cough onset 4 days ago, shortness of breath onset today. Modifying factors: The symptoms are alleviated by nothing, the symptoms are aggravated by nothing. Associated signs and symptoms: Pertinent positives: Chest pain with coughing, Pertinent negatives: fever, nausea, rash, vomiting. Severity of symptoms: in the emergency department the symptoms are worse. The patient has experienced similar episodes in the past, several times. The patient has been recently seen by a physician: with similar presenting complaints, Seen at [place] yesterday. Negative for Flu and Covid. Negative 2 view chest x-ray. 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 - Social history:: Smoking status: Patient denies any tobacco usage or history of. ROS: 14:55 Constitutional: Negative for fever, chills, and weight loss. pm1 14:55 Abdomen/GI: Negative for abdominal pain, nausea, vomiting, diarrhea, and constipation, Back: Negative for injury and pain, MS/Extremity: Negative for injury and deformity, Skin: Negative for injury, rash, and discoloration, Neuro: Negative for headache, weakness, numbness, tingling, and seizure. 14:55 Cardiovascular: Positive for chest pain, with cough, Negative for edema. 14:55 Respiratory: Positive for cough, shortness of breath, wheezing. Exam: 14:55 Constitutional: This is a well developed, well nourished patient who is awake, alert, pm1 and in no acute distress. Head/Face: Normocephalic, atraumatic. 14:55 Skin: Warm, dry with normal turgor. Normal color with no rashes, no lesions, and no evidence of cellulitis. MS/ Extremity: Pulses equal, no cyanosis. Neurovascular intact. Full, normal range of motion. 14:55 Cardiovascular: Rate: tachycardic, actual rate is 119 bpm, Rhythm: regular, Pulses: no pulse deficits are appreciated, Edema: is not appreciated. 14:55 Respiratory: the patient does not display signs of respiratory distress, Breath sounds: wheezing: expiratory that is mild, is heard diffusely. 14:55 Neuro: Exam negative for acute changes, Orientation: is normal, Mentation: is normal, Motor: is normal, moves all fours. Vital Signs: 14:45 BP 125 / 80; Pulse 129; Resp 20 S; Temp 98.6(TE); Pulse Ox 95% on R/A; Weight 112.94 kg ca1 (R); Height 5 ft. 3 in. (160.02 cm) (R); Pain 0/10; 15:39 BP 100 / 57; Pulse 119; Resp 18; Pulse Ox 96% on R/A; zb 16:20 BP 108 / 49; Pulse 90; Resp 18; Pulse Ox 97% on R/A; zb 14:45 Body Mass Index 44.11 (112.94 kg, 160.02 cm) ca1 MDM: 14:45 Patient medically screened. pm1 16:21 Data reviewed: vital signs. Data interpreted: Pulse oximetry: on room air is 96 %. pm1 Interpretation: normal. Counseling: I had a detailed discussion with the patient and/or guardian regarding: the historical points, exam findings, and any diagnostic results supporting the discharge/admit diagnosis, the need for outpatient follow up, to return to the emergency department if symptoms worsen or persist or if there are any questions or concerns that arise at home. 16:21 ED course: Patient was discharged home yesterday with from [place] with azithromycin and pm1 medrol dose pack. Administered Medications: 15:14 Drug: Decadron 10 mg Route: IM; Site: right deltoid; zb 15:53 Follow up: Response: No adverse reaction zb 15:14 Drug: Xopenex 1.25 mg Route: Inhalation; zb 15:53 Follow up: Response: No adverse reaction zb 15:14 Drug: Tussionex Pennkinetic ER 5 ml Route: PO; zb 15:53 Follow up: Response: No adverse reaction; Marked relief of symptoms zb 15:14 Drug: Zofran (Ondansetron) 4 mg Route: PO; zb 15:53 Follow up: Response: No adverse reaction zb 15:52 Drug: Xopenex 1.25 mg Route: Inhalation; zb 16:00 Follow up: Response: No adverse reaction zb Disposition: 07/16 07:01 Co-signature as Attending Physician, Giuseppe Akers MD I agree with the assessment and rosa plan of care. Disposition: 07/15/20 16:22 Discharged to Home. Impression: Asthma. - Condition is Stable. - Discharge Instructions: Asthma, Adult, Form - Asthma Action Plan, Adult. - Prescriptions for Zofran ODT 4 mg Oral tablet,disintegrating - place 1 tablet by TRANSLINGUAL route every 8 hours As needed; 20 tablet. Albuterol Sulfate 2.5 mg /3 mL (0.083 %) Inhalation Solution for Nebulization - inhale 1 unit by NEBULIZATION route every 8 hours As needed; 1 box. Guaifenesin AC 10- 100 mg/5 mL Oral Liquid - take 10 milliliters by ORAL route every 8 hours As needed; 200 milliliter. - Medication Reconciliation Form, Thank You Letter, Antibiotic Education, Prescription Opioid Use form. - Follow up: Emergency Department; When: As needed; Reason: Worsening of condition. Follow up: Private Physician; When: 2 - 3 days; Reason: Recheck today's complaints, Continuance of care, Re-evaluation by your physician. - Problem is new. - Symptoms have improved. Signatures: Giuseppe Akers MD MD cha Marinas, Patrick, WRITING TUTOR WRITING TUTOR pm1 Eva Lawrence RN RN ca1 Brown, Zipporah, RN RN zb Corrections: (The following items were deleted from the chart) 07/15 17:01 16:22 07/15/2020 16:22 Discharged to Home. Impression: Asthma. Condition is Stable. zb Forms are Medication Reconciliation Form, Thank You Letter, Antibiotic Education, Prescription Opioid Use. Follow up: Emergency Department; When: As needed; Reason: Worsening of condition. Follow up: Private Physician; When: 2 - 3 days; Reason: Recheck today's complaints, Continuance of care, Re-evaluation by your physician. Problem is new. Symptoms have improved. pm1
[2020-07-15 18:02] VITALS: TEMP 98.6
[2020-07-15 18:05] VITALS: BP 108/49; O2SAT 97
== END 2020-07-15 17:01 | disposition home or self-care (01) ==
LOC: ER 14:35
DX: J45.909 Unspecified asthma, uncomplicated (principal); Z88.5 Allergy status to narcotic agent; Z88.6 Allergy status to analgesic agent; Z88.8 Allergy status to other drugs, medicaments and biological substances
CPT/HCPCS: 96372; 99284; J1100

== ENCOUNTER 2020-07-21 | Emergency (ER) | payer BC, OTHER ==
--- OUTSIDE RECORDS SUMMARY | 2020-07-21 14:14 | XMS REPORT | Continuity of Care Document ---
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 reports SKILLED NURSING I (disorder) 77 reaction from [facility] Asthma (disorder) Active Problem 06/03/2020 [facility] Neuro Gastritis Active Problem 06/03/2020 [facility] (disorder) Neuro Hypertensive Active Problem 06/03/2020 Mische r disorder, systemic N euro arterial (disorder) Hypothyroidism Active Problem 06/03/2020 Misc her (disorder) Neuro,SKILLED NURSING I Migraine Active Problem 06/03/2020 [facility] (disorder) Neuro,SKILLED NURSING I Morbid obesity Active Problem 06/03/2020 Misc her (disorder) Neuro,SKILLED NURSING I Thiamin deficiency Active Problem 06/03/2020 [facility] [...] headache, # 9 tab, 1 Refill(s), Pharmacy: [facility], 152.4, cm, 01/15/20 15:04:00 [...] ketorolac 30 mg = 1 mL, Inactive [facility] Injection, [...] 02/25/ [facility] mL IV Start Injection, 2019 [[facility]] Subcutaneous, Once PRN for other (see [...] carrie mg oral tablet Bedtime, # 30 2019 Lebron ro ea, 5 Refill(s), Pharmacy: [facility], 152.4, cm, 01/15/20 15:04:00 CDT, Height, 115.455, kg, 01/15/20 15:04:00 CDT, Weight rizatriptan 5 MG 5 mg = 1 tab, Active ischer Oral Tablet PO, ONCE, PRN 2020 Neuro [Maxalt] for migraine headache, # 9 tab, 1 Refill(s), Pharmacy: [facility], 152.4, cm, 01/15/20 15:04:00 CDT, Height, 115.455, kg, 01/15/20 15:04:00 CDT, Weight rizatriptan 5 MG 5 mg = 1 tab, Active ischer Oral Tablet PO, ONCE, PRN 2019 Neuro [Maxalt] for migraine headache, # 9 tab, 1 Refill(s), Pharmacy: [facility] amitriptyline 75 = 1 tab, PO, Active carrie mg oral tablet Bedtime, 2019 Lebron ro ea, 1 Refill(s), Pharmacy: [facility] amitriptyline 75 75 mg = 1 Active 03/06/ Misch er mg oral tablet tab, PO, 2018 Neuro Bedtime, # 30 tab, 1 Refill(s), Pharmacy: [facility] rizatriptan 5 MG 5 mg = 1 tab, Active ischer Oral Tablet PO, ONCE, PRN 2018 Neuro [Maxalt] for migraine headache, # 9 tab, 1 Refill(s), Pharmacy: [facility] thiamine 100 mg 100 mg = 1 Active 02/14/ Misch er oral tablet tab, PO, 2019 Neuro Daily, X 30 day, # 30 tab, 3 Refill(s), Pharmacy: [facility] cyanocobalamin 1,000 Active 02/14/ [facility] 1000 mcg microgram = 1 2019 Neuro sublingual tablet tab, SL, Daily, # 30 tab, 2 Refill(s), Pharmacy: [facility] amitriptyline 50 50 mg = 1 Active 02/14/ Misch er mg oral tablet tab, PO, 2019 Neuro Bedtime, # 30 tab, 1 Refill(s), Pharmacy: [facility] rizatriptan 5 MG 5 mg = 1 tab, No Longer 01/25/ [facility] Oral Tablet PO, Daily, Active 2019 Neuro [Maxalt] PRN for migraine headache, X 6 day, # 6 tab, 1 Refill(s), Pharmacy: [facility] amitriptyline 50 50 mg = 1 No Longer 01/25/ Mis benji mg oral tablet tab, PO, Active 2019 Neuro Bedtime, # 30 tab, 1 Refill(s), Pharmacy: [facility] frovatriptan 2.5 2.5 mg = 1 No Longer 01/09/ Mi carrie mg oral tablet tab, PO, Active 2019 Neuro Daily, PRN for migraine headache, May repeat another dose at least 2 hours after the first dose, X 3 day, # 9 tab, 2 Refill(s), Pharmacy: [facility] eletriptan 40 MG See No Longer 01/07/ Misch er Oral Tablet Instructions, Active 2018 Neuro [Relpax] PO, Take 1-2 tabs orally at onset of migraine, may repeat dose once in 2 hours, X 3 day, # 6 tab, 1 Refill(s), Pharmacy: [facility] amitriptyline 25 25 mg = 1 Active 12/24/ Misch er mg oral tablet tab, PO, 2019 Neuro Bedtime, # 30 tab, 3 Refill(s), Pharmacy: [facility] cyanocobalamin 1,000 Active Mischer 1000 mcg microgram = 1 2019 Neuro sublingual tablet tab, SL, Daily, # 30 tab, 2 Refill(s), Pharmacy: [facility] thiamine 100 mg 100 mg = 1 Active 11/29/ Misch er oral tablet tab, PO, 2019 Neuro Daily, X 30 day, # 30 tab, 3 Refill(s), Pharmacy: [facility] amitriptyline 10 10 mg = 1 Active 11/22/ Misch er mg oral tablet tab, PO, 2019 Neuro Bedtime, # 30 tab, 3 Refill(s), Pharmacy: [facility] gabapentin 300 MG 300 [...] values reflect the clinical guidelines
of the [employer] [employer]. LABORATORY BUN 12 7 - [...] - 0.5 02/17 LABORATORY Results Reported 02/17 [facility] (02/18/20 12:38 PM) Pathology Reports No Data [...] 02/14/2019 [facility] Respitory Rate 16 02/14/2019 [facility] Neuro Heart Rate 83 02/14/2019 [facility] Neuro Systolic (mm Hg) 123 02/14/2019 [facility] [place] ro Diastolic (mm Hg) 90 02/14/2019 [facility] Ne uro BMI Calculated 43.62 [facility]/24/[facility] 108.182 [facility]/24/[facility] Height 157.48 cm 12/24/2018 [facility] Systolic (mm Hg) 134 12/24/2018 [facility] [place] ro Diastolic (mm Hg) 99 12/24/2018 [facility] Ne uro Respitory Rate 16 12/24/2018 [facility] Heart Rate 112 12/24/2018 [facility] Neuro Height 152.4 cm 12/20/2018 [facility] Neuro BMI Calculated 46.58 12/20/2018 [facility] Weight 108.182 12/20/2018 [facility] Systolic (mm Hg) 117 12/20/2018 [facility] [place] ro Diastolic (mm Hg) 82 12/20/2018 [facility] Ne uro Heart Rate 104 12/20/2018 [facility] Neuro Respitory Rate 16 12/20/2018 [facility] Systolic (mm Hg) 117 11/22/2018 [facility] [place] ro Diastolic (mm Hg) 90 11/22/2018 [facility] Ne uro Respitory Rate 16 11/22/2018 [facility] Neuro Height 157.48 cm 11/22/2018 [facility] Neuro Weight 106.364 11/22/2018 [facility] Neuro BMI Calculated 42.89 11/22/2018 [facility] Neuro Heart Rate 96 11/22/2018 [facility] Neuro Encounters Location Location Encounter Encounter Reason Attending ADM MS Stat Source Details Type Number For Provider Date Date Visit Outpatient [id number] [facility] 11/22 [facility] [place] [facility]NA Outpatient [id number] [place] 11/22 11/23 [facility] Neurology [facility] /2018 [facility] [place] Outpatient [id number] [place] 12/20 [facility] [place] [facility] Outpatient [id number] [place] 12/20 12/21 [facility] [place] /2018 [facility] [place] Outpatient [id number] [facility] 12/24 [facility] [place] [facility] [id number] [place] 12/24 12/25 [facility] [place] /2018 [facility] [place] Outpatient [id number] [facility] 02/14 [facility] [place] [facility] [id number] [facility] 02/14 02/15 [facility] [place] /2018 [facility] [place] Outpatient [id number] [facility] 05/23 [facility] [place] [facility] Ambulatory [id number] L[place] 05/23 05/23 [facility] [place] Outpatient [id number] [place] 12/01 [facility] [facility]2019 [place] [facility] Outpatient [id number] L[place] 12/01 12/02 [facility] [place] /2019 [facility] [place] Outpatient [id number] [place] 01/14 [facility] [facility]2019 [place] Outpatient [id number] [place] 01/14 [facility]2019 [place] [facility] Ambulatory [id number] L[place] 01/14 01/14 [facility] [place] /2019 [facility] [place] [facility] Outpatient [id number] Leland 01/14 01/15 [facility] [place] /2019 [facility] [place] [facility] Outpatient [id number] [place] 02/25 02/25 Active [facility] [place] /2019 [facility] Outpatient [id number] [place] 02/25 02/25 SKILLED NURSING I [place] /[facility] Outpatient [id number] [place] 06/01 [facility]2019 [place] [facility] Ambulatory [id number] Leland 06/01 06/01 [facility] [place] /2019 [facility] [place] Procedures Procedure Code Date Perfomer Comments Source APPLICATION SHORT auto-populated SKILLED NURSING I LEG SPLINT-CALF TO 0 from FOOT 98116 documented (Left)<sup>1</sup> surgical case ARTHROSCOPY ANKLE auto-populated SKILLED NURSING I W/EXCISION OF 0 from OSTEOCHONDRAL documented DEFECT OF TALUS surgical case AND/OR TIBIA 42933 (Left)<sup>2</s up> OPEN REDUCTION auto-populated [facility] INTERNAL FIXATION 0 from TALUS FRACTURE documented 93823 surgical case (Left)<sup>3</sup> Breast reduction, [id number] [facility] bilateral Bunionectomy [id number] [facility] Carpal tunnel [id number] [facility] syndrome of right wrist Plantar fasciitis [id number] [facility] of left foot Assessment and Plan [...]
--- OUTSIDE RECORDS SUMMARY | 2020-07-21 14:15 | XMS REPORT | Continuity of Care Document ---
:1975 Author Organization [facility] t Address 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 1- 04:01:02 l (disorder) [...] nondisplac nondisplac it y of ed ed [place] fracture fracture Physic i of dome of of dome of an s left talus left talus with with routine routine healing, healing, subsequent subsequent encounter encounter Right calf Right calf Problem Active U nivers pain pain ity of [place] Physici ans Pain of Pain of Problem Active Univers left calf left calf ity of [place] Physici ans Edema, Edema, Problem Active Univers lower lower [place] of extremity extremity [place] Plantar Plantar Problem Active Univers fasciitis fasciitis ity of [place] Physici ans Left ankle Left ankle Problem Active U nivers pain pain ity of [place] Physici ans Asthma Problem Active 2020-06-03 Memor ia (disorder) 23:04:35 l Asthma Luca (disorder) Active Problem 06/03/2020 [facility] Gastritis Problem Active 2020-06-03 Me moria (disorder) 23:04:35 l Luca Gastritis (disorder) Active Problem 06/03/2020 [facility] Hypertensi Problem Active 2020-06-03 M emoria ve 23:04:35 l disorder, Luca systemic Hypertensi arterial ve (disorder) disorder, systemic [...] 2020-06-03 M emoria (finding) 23:04:35 l Ankle Peridot pain (finding) Active Problem 06/03/2020 [facility] Acid Problem Active 2020-02-28 Memor ia reflux 04:01:02 l (finding) Acid Luca reflux (finding) Active Problem 02/28/2020 [facility] Allergy [...] Active 2020-02-28 M emoria (disorder) 04:01:02 l Luca Neuropathy (disorder) Active Problem 02/28/2020 [facility] Nondisplac [...] Active Univers to drug ity of (finding [place] ) Physici ans codeine Allergy Active Univers to drug ity of (finding [place] ) Physici ans aspirin aspirin Active Memoria l [place]a Topamax Topamax Active Memoria l Peridot codeine codeine Active Memoria sulfate sulfate l Peridot Social History Smoking Status Start Date Stop Date Source Social History [facility] Luca Medications Ordered Filled Start Stop Current Ordering Indication Dosage Frequency Signature Comments Components Source Medication Medication Date Date Medication? Clinician (SIG) Name Name rizatriptan Yes 5 mg = 1 Me moria 5 MG Oral 9-15 tab, PO, l Tablet 22:44: ONCE, PRN Burak n [Maxalt] for migraine headache, # 9 tab, 1 Refill(s), Pharmacy: [facility], 152.4, cm, 01/15/20 15:04:00 [...] 2019-0 No 0.5 mg = Memor ia -13 [...] e 8-13 0.5 mL, l 15:20: Injection, Peridot 00 IM, Once PRN for vomiting, first [...] Mem oria 8-13 mL, l 12:53: Injection, Peridot 00 IV, Once, first dose 02/26/20 7:53:00 [...] Mem oria 8-13 mL, l 12:35: Injection, Peridot 00 IV, Once, first dose 02/26/20 7:35:00 CDT, stop date 02/26/20 7:35:00 CDT midazolam 2020-0 No 1 mg = 1 Lev trupti 8-13 mL, l 12:34: Injection, Luca 00 IV, Once, first dose 02/26/20 7:34:00 CDT, stop date 02/26/20 7:34:00 CDT midazolam 2020-0 No 1 mg = 1 Lev trupti 8-13 mL, l 12:26: Injection, Peridot 00 IV, Once, first dose 02/26/20 7:26:00 [...] 0.2 mL, Memor ia 2% 0.2 mL 8 Injection, l IV Start 11:28: Subcutaneo Her paulino [[facility]] 00 us, Once PRN for other (see comment), first dose 02/26/20 6:28:00 CDT Allergy 2020-0 Yes mg, Oral, Memor ia Relief 8-05 Daily, 0 l 17:06: Refill(s) Tylenol PM 2020-0 Yes Oral, qHS, M emoria 8-05 0 l 17:05: Refill(s), Peridot 00 sleep /pain amitriptyli 2020-0 Yes 75 mg = 1 M emoria ne 75 mg 8-05 tabs, l oral tablet 17:04: Oral, qHS, 0 Refill(s), sleep levothyroxi 2020-0 Yes 25 mcg = 1 Memoria ne 25 mcg 8-05 tabs, l (0.025 mg) 17:04: Oral, Burak [...] PO, l oral tablet 20:24: Bedtime, # Peridot 00 30 ea, 5 Refill(s), Pharmacy: [facility], 152.4, cm, 01/15/20 15:04:00 CDT, Height, 115.455, kg, 01/15/20 15:04:00 CDT, Weight rizatriptan 2020-0 Yes 5 mg = 1 Me moria 5 MG Oral 7-02 tab, PO, l Tablet 20:24: ONCE, PRN Burak n [Maxalt] 00 for migraine headache, # 9 tab, 1 Refill(s), Pharmacy: [facility], 152.4, cm, 01/15/20 15:04:00 CDT, Height, 115.455, kg, 01/15/20 15:04:00 CDT, Weight rizatriptan 2019-0 Yes 5 mg = 1 Me moria 5 MG Oral 5-19 tab, PO, l Tablet 21:06: ONCE, PRN Burak n [Maxalt] 00 for migraine headache, # 9 tab, 1 Refill(s), Pharmacy: [facility] amitriptyli 2019-0 Yes = 1 tab, Me moria ne 75 mg 5-19 PO, l oral tablet 21:06: Bedtime, # Luca 00 30 ea, 1 Refill(s), Pharmacy: [facility] amitriptyli 2018- Yes 75 mg = 1 M emoria ne 75 mg 8-22 tab, PO, l oral tablet 18:27: Bedtime, # Luca 00 30 tab, 1 Refill(s), Pharmacy: [facility] rizatriptan 2018-0 Yes 5 mg = 1 Me moria 5 MG Oral 8-02 tab, PO, l Tablet 20:24: ONCE, PRN Burak n [Maxalt] 09 for migraine headache, # 9 tab, 1 Refill(s), Pharmacy: [facility] thiamine 2018- Yes 100 mg = 1 Mem oria 100 mg oral 8-02 tab, PO, l tablet 20:23: Daily, X Luca 17 30 day, # 30 tab, 3 Refill(s), Pharmacy: [facility] 80 cyanocobala 2018- Yes 1,000 Memor ia min 1000 8-02 microgram l mcg 20:23: = 1 tab, Peridot sublingual 13 SL, Daily, tablet # 30 tab, 2 Refill(s), Pharmacy: [facility] amitriptyli 2018-0 Yes 50 mg = 1 M emoria ne 50 mg 8-02 tab, PO, l oral tablet 20:23: Bedtime, # Per[facility]ot 09 30 tab, 1 Refill(s), Pharmacy: [facility] rizatriptan No 5 mg = 1 Me moria 5 MG Oral 7-13 tab, PO, l Tablet 01:53: Daily, PRN Antonia nn [Maxalt] 00 for migraine headache, X 6 day, # 6 tab, 1 Refill(s), Pharmacy: [facility] amitriptyli No 50 mg = 1 M emoria ne 50 mg 7-13 tab, PO, l oral tablet 01:53: Bedtime, # Luca 00 30 tab, 1 Refill(s), Pharmacy: [facility] frovatripta No 2.5 mg = 1 Memoria n 2.5 mg 6-27 tab, PO, l oral tablet 15:37: Daily, PRN Luca 00 for migraine headache, May repeat another dose at least 2 hours after the first dose, X 3 day, # 9 tab, 2 Refill(s), Pharmacy: [facility] eletriptan No See Memoria 40 MG Oral 6-25 Instructio l Tablet 23:35: ns, PO, Luca [Relpax] 00 Take 1-2 tabs orally at onset of migraine, may repeat dose once in 2 hours, X 3 day, # 6 tab, 1 Refill(s), Pharmacy: [facility] amitriptyli Yes 25 mg = 1 M emoria ne 25 mg 6-11 tab, PO, l oral tablet 21:16: Bedtime, # Per[facility]ot 00 30 tab, 3 Refill(s), Pharmacy: [facility] cyanocobala Yes 1,000 Memor ia min 1000 6-07 microgram l mcg 19:39: = 1 tab, Peridot sublingual 00 SL, Daily, tablet # 30 tab, 2 Refill(s), Pharmacy: [facility] thiamine Yes 100 mg = 1 Mem oria 100 mg oral 5-17 tab, PO, l tablet 18:13: Daily, X Luca 00 30 day, # 30 tab, 3 Refill(s), Pharmacy: [facility] amitriptyli Yes 10 mg = 1 M emoria ne 10 mg 5-10 tab, PO, l oral tablet 20:44: Bedtime, # Peridot 00 30 tab, 3 Refill(s), Pharmacy: [facility] gabapentin 2019- Yes 300 [...] ne Sodium ity o f TABS TABS [place] Physici ans Meloxicam Meloxicam Yes M.D. Unive rs TABS TABS ity of [place] Physici ans Amitriptyli Amitriptyli Yes M.D. U nivers ne HCl TABS ne HCl TABS i ty of [place] Physici ans Vital Signs Vital Name Observation Time Observation Value Comments Source Respitory Rate 2020-02-26 16:32:00 Memori al [facility]ot Systolic (mm Hg) 2020-02-26 16:32:00 Lev rial Luca Diastolic (mm Hg) 2020-02-26 16:32:00 Mem orial [facility] Heart Rate 2020-02-26 16:00:00 [facility] [place] Respitory Rate 2020-02-26 16:00:00 Memori al [place] Systolic (mm Hg) 2020-02-26 16:00:00 Lev rial Luca Diastolic (mm Hg) 2020-02-26 16:00:00 Mem orial [facility] Heart Rate 2020-02-26 15:50:00 [facility] Respitory Rate 2020-02-26 15:50:00 Memori al Luc[place] Systolic (mm Hg) 2020-02-26 15:50:00 Lev rial Luca Diastolic (mm Hg) 2020-02-26 15:50:00 Mem orial Luc[place] Heart Rate 2020-02-26 15:40:00 [facility] Temperature Oral (F) 2020-02-26 15:20:00 37.0 Sole [facility] Temperature Oral (F) 2020-02-26 11:25:00 37.2 Sole [facility] Luac Height 2020-02-26 11:25:00 158 cm [facility] Height 2020-02-18 16:59:00 158 cm [facility] [place] Systolic blood 2020-02-02 14:39:00 134 mm[Hg] Univer sity of pressure [place] Physician s Diastolic blood 2020-02-02 14:39:00 64 mm[Hg] Unive rsity of pressure [place] Physician s Body height 2020-02-02 14:39:00 63 [in_us] Universi ty of [place] Physician s Weight 2020-02-02 14:39:00 147 [lb_av] Universi ty [facility] Physician s Body mass index 2020-02-02 14:39:00 26.04 kg/m2 Unive rsity of (BMI) [Ratio] [place] Physicia ns Heart Rate 2020-02-02 14:39:00 74 /min Universi ty [facility] Physician s Systolic (mm Hg) 2020-01-15 20:04:00 Lev rial Luca Diastolic (mm Hg) 2020-01-15 20:04:00 Mem orial Luca Heart Rate 2020-01-15 20:04:00 [facility] [place] Respitory Rate 2020-01-15 20:04:00 Memori al [place] Height 2020-01-15 20:04:00 152.4 cm [facility] [place] Weight 2020-01-15 20:04:00 [facility] BMI Calculated 2020-01-15 20:04:00 Memori al [place] Systolic (mm Hg) 2019-12-02 20:40:00 Lev rial Luca Diastolic (mm Hg) 2019-12-02 20:40:00 Mem orial [place] Heart Rate 2019-12-02 20:40:00 [facility] Respitory Rate 2019-12-02 20:40:00 Memori al [place] Height 2019-12-02 20:40:00 152.4 cm [facility] Weight 2019-12-02 20:40:00 [facility] [place] BMI Calculated 2019-12-02 20:40:00 Memori al [place] Weight 2019-02-14 19:40:00 [facility] [place] BMI Calculated 2019-02-14 19:40:00 Memori al [place] Height 2019-02-14 19:40:00 160.02 cm [facility] Respitory Rate 2019-02-14 19:40:00 Memori al [place] Heart Rate 2019-02-14 19:40:00 [facility] Systolic (mm Hg) 2019-02-14 19:40:00 Lev rial Luca Diastolic (mm Hg) 2019-02-14 19:40:00 Mem orial Luca BMI Calculated 2018-12-24 20:38:00 Memori al [place] Weight 2018-12-24 20:38:00 [facility] [place] Height 2018-12-24 20:38:00 157.48 cm [facility] Systolic (mm Hg) 2018-12-24 20:38:00 Lev rial Luca Diastolic (mm Hg) 2018-12-24 20:38:00 Mem orial [place] Respitory Rate 2018-12-24 20:38:00 Memori al [place] Heart Rate 2018-12-24 20:38:00 [facility] Height 2018-12-20 19:20:00 152.4 cm [facility] BMI Calculated 2018-12-20 19:20:00 Memori al [place] Weight 2018-12-20 19:20:00 [facility] Systolic (mm Hg) 2018-12-20 19:20:00 Lev rial [place]ot Diastolic (mm Hg) 2018-12-20 19:20:00 Mem orial Luca Heart Rate 2018-12-20 19:20:00 [facility] Respitory Rate 2018-12-20 19:20:00 Memori al Luca Systolic (mm Hg) 2018-11-22 19:23:00 Lev rial Luca Diastolic (mm Hg) 2018-11-22 19:23:00 Mem orial [place] Respitory Rate 2018-11-22 19:23:00 Memori al [place] Height 2018-11-22 19:23:00 157.48 cm [facility] [place] Weight 2018-11-22 19:23:00 [facility] [place] BMI Calculated 2018-11-22 19:23:00 Carissa Redman Heart Rate 2018-11-22 19:23:00 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 [id number] (Left)<sup>2</sup> OPEN REDUCTION INTERNAL 2020-02-26 13:13:00 Lev rial Luca FIXATION TALUS FRACTURE [id number] (Left)<sup>3</sup> [L] 2019 2020-02-05 00:00:00 [place] [facility] [place] Coronavirus (COVID-19), Physicia ns MARK [UTP] Ortho - Surgery 2020-02-02 00:[facility]00 [facility] Scheduling Physicians History of Breast [facility] reduction Physicians History of Carpal tunnel Univers [facility] surgery Physicians Breast reduction, [facility] nn bilateral Bunionectomy [facility] Carpal tunnel syndrome [facility] of right wrist Plantar fasciitis of [facility] left foot Plan of Care Planned Activity Planned Date Details Comments Source Diagnostic Test 2020-02-02 [UTP] Ortho - [facility] Pending 00:00:00 Surgery Scheduling Physician s [code = [UTP] Ortho - Surgery Scheduling] Encounters Start End Encounter Admission Attending Care Care Encounter Source Date/Time Date/Time Type Type Clinicians Facility Department ID 2020-07-02 2020-07-02 Appointmen NEAL JEAN BAPTISTE Orthopedics [id number] Univers 14:30:00 14:30:00 t; RAJI JEAN BAPTISTE, - Sugar ity vito ALEGRIA DPM [address] DPM Physici ans 2020-06-01 2020-06-01 [id number] 14:00:00 14:00:00 Malcom 08 Santos 2020-05-31 2020-05-31 [facility] [id number] Univers 10:00:00 10:00:00 t; RAJI JEAN BAPTISTE, - Sugar ity of RAJI, DPM [address] [place] DPM Physici ans 2020-05-10 2020-05-10 [facility] [id number] Univers 09:00:00 09:00:00 t; RAJI JEAN BAPTISTE, - Sugar ity of RAJI, DPM [address] [place] DPM Physici ans 2020-04-27 2020-04-27 [facility] [id number] Univers 14:45:00 14:45:00 t; RAJI JEAN BAPTISTE, - Sugar ity of RAJI, DPM [address] [place] DPM Physici ans 2020-03-29 2020-[facility] [id number] Univers 13:00:00 13:00:00 t; RAJI JEAN BAPTISTE, - Sugar ity of RAJI, DPM [address] [place] DPM Physici ans 2020-03-08 2020-03-[facility] [id number] Univers 11:15:00 11:15:00 t; RAJI JEAN BAPTISTE, - Sugar ity of RAJI, DPM [address] [place] DPM Physici ans 2020-02-26 2020-02-26 Outpatient Markel, [id number] 05:46:09 11:30:00 Raji 8 2020-02-26 2020-02-[facility] [id number] Univers 10:30:00 10:30:00 t; RAJI JEAN BAPTISTE, - Sugar ity of RAJI, DPM [address] [place] DPM Physici ans 2020-02-02 2020-02-02 [facility] [id number] Univers 10:45:00 10:45:00 t; RAJI JEAN BAPTISTE, - Sugar ity of RAJI, DPM [address] [place] DPM Physici ans 2020-01-15 2020-01-15 Outpatient VIRGILIO Espinal [id number] 15:00:00 23:59:59 Malcom 07 Santos 2020-01-15 2020-01-15 Outpatient VIPUL EspinalSCHER MHMISCHER [id number] 15:00:00 15:00:00 Malcom Santos 2019-12-02 2019-12-02 Outpatient VIPUL EspinalSCHER VIPULSCHER [id number] 15:30:00 23:59:59 Malcom Santos 2019-05-23 2019-05-23 Outpatient VIPUL EspinalSCHER VIPULSCHER [id number] 13:15:00 13:15:00 Malcom Santos 2019-03-23 2019-03-23 Emergency Harish, [facility] [id number] 12:37:57 13:11:00 Palomo Guy [id number] [place] [id number] [place] [id number] 2019-03-23 2019-03-23 Orders Doctor SPENSER [id number] 00:00:00 00:00:00 Only Unassigned, MARIA ELENA [id number] [place] [id number] 2019-02-14 2019-02-14 Outpatient VIPUL EspinalSCHER VIPULSCHER [id number] 15:00:00 23:59:59 Malcom 02 Santos 2018-12-24 2018-12-24 Outpatient VIPUL EspinalSCHER MHMISCHER [id number] 15:15:00 23:59:59 Malcom 03 Santos 2018-12-20 2018-12-20 Outpatient VIPUL EspinalSCHER MHMISCHER [id number] 13:45:00 23:59:59 Malcom Santos 2018-11-22 2018-11-22 Outpatient DIMA EspinalMISCHER MHMISCHER [id number] 14:45:00 23:59:59 Malcom 00 [facility] Results Test Description Test Time Test Comments Results Result [facility] e [facility] LABORATORY 2020-02-18 89 [facility] 17:38:00 [facility] LABORATORY 2020-02-18 12 [facility] 17:38:00 [facility] 2020-02-18 0.79 [facility] 17:38:00 [facility] LABORATORY 2020-02-18 141 [facility] 17:38:00 Luca LABORATORY 2020-02-18 4.5 [facility] 17:38:00 [facility] LABORATORY 2020-02-18 108 [facility] 17:38:00 [facility] LABORATORY 2020-02-18 24 [facility] 17:38:00 [facility] LABORATORY 2020-02-18 13.5 [facility] 17:38:00 [place] LABORATORY 2020-02-18 9.5 [facility] 17:38:00 [facility] LABORATORY 2020-02-18 92 [facility] 17:38:00 Luca LABORATORY 2020-02-18 Reported [facility] 17:38:00 (02/18/20 12:38 Luca PM) LABORATORY 2020-02-18 6.4 [facility] 17:38:00 [facility] LABORATORY 2020-02-18 4.37 [facility] 17:38:00 [facility] LABORATORY 2020-02-18 12.7 [facility] 17:38:00 [facility] LABORATORY 2020-02-18 38.3 [facility] 17:38:00 [facility] LABORATORY 2020-02-18 87.5 [facility] 17:38:00 [place] LABORATORY 2020-02-18 17:38:00 Test Item Value Reference Range Interpretation Comme nts MCH (test code = MCH) 29.2 pg 27.0-31.0 [facility] [id number] 17:38:[facility].3[facility] 2020-02-18 17:38:0014.2[facility] [id number] 17:38:33228Wlfptgpc [id number] 17:38:008.3[facility] [id number] 17:38:000.1[facility] [id number] 17:38:00Reported (02/18/20 12:38 PM)[facility] X[id number] 17:38:0062.2[facility] 2020-02-18 17:38:006.8[facility] VzbujsuJCHILKCHKM2043-01-20 17:38:0026.9[facility] [id number] 17:38:003.6[facility] [id number] 17:38:000.5[facility] DoapdqmCKOQYBAJEO6616-12-10 17:38:004.0[facility] [id number] 17:38:001.7[facility] BatyvxnYFHWMJUDEK1767-39-76 17:38:000.4 Memorial PwlgyebDFPAZWKXPN6655-40-15 17:38:000.2[facility] 2020-02-18 17:38:00Reported (02/18/20 12:38 PM)[facility]
--- NOTE | 2020-07-21 18:32 | ER ---
Nurse's Notes [facility] Name: Trudi Villavicencio Age: 45 yrs Sex: Female : 1975 Arrival Date: 07/21/2020 Time: 14:11 Bed Waiting Private MD: Diagnosis: Presentation: 07/21 14:26 Chief complaint: Patient states: Cough, weak, SOB, fatigue since 07/10. Covid test ll1 negative 07/13 at [place]. Diagnosed with bronchitis. States she is coming in today, because she doesn't feel better yet. States her doctor sent her in for another covid test. Coronavirus screen: Client denies travel out of the [place] in the last 14 days. cough unrelated to allergies, fatigue, headache, loss of taste or smell, Client presents with at least one sign or symptom that may indicate coronavirus-19. The client reports previous COVID testing was negative. Ebola Screen: Patient denies travel to an Ebola-affected area in the 21 days before illness onset. No acute neurological deficit is noted. Pre-hospital glucose is not applicable to this patient. Initial Sepsis Screen: Does the patient meet any 2 criteria? HR > 90 bpm. No. Patient's initial sepsis screen is negative. Does the patient have a suspected source of infection? Yes: Productive cough/pneumonia. Risk Assessment: Do you want to hurt yourself or someone else? Patient reports no desire to harm self or others. Onset of symptoms was July 10, 2020. 14:26 Method Of Arrival: Ambulatory ll1 14:26 Acuity: HOWIE 3 ll1 Stroke Activation: Symptom onset > 6 hours Physician: Stroke Attending; Name: ; Notified At: ; Arrived At: Physician: Chief Stroke Resident; Name: ; Notified At: ; Arrived At: Physician: Stroke Resident; Name: ; Notified At: ; Arrived At: Physician: ED Attending; Name: ; Notified At: ; Arrived At: Physician: ED Resident; Name: ; Notified At: ; Arrived At: Historical: - Allergies: 14:26 Aspirin; ll1 14:26 Codeine; ll1 14:26 Topamax; ll1 14:26 tramadol; ll1 - PMHx: 14:26 Asthma; bleeding ulcer; Degenerative disc disease; DGD; enlarged aorta; erosive ll1 gastritis; Fibromyalgia; Herniated disc; herniated disk; neuropathy; - PSHx: 14:26 Ankle Surgery; ll1 - Immunization history:: Flu vaccine is not up to date. - Social history:: Smoking status: Patient denies any tobacco usage or history of. Vital Signs: 14: BP 105 / 66; Pulse 115; Resp 18; Temp 97.8; Pulse Ox 100% ; Weight 117.48 kg; Height 5 ll1 ft. 3 in. (160.02 cm); Pain 8/10; 14:26 Body Mass Index 45.88 (117.48 kg, 160.02 cm) ll1 ED Course: 14:11 Patient arrived in ED. ds1 14:25 Arm band placed on. ll1 14:30 Triage completed. ll1 Administered Medications: No medications were administered Outcome: 18:31 Patient left the ED. ll1 Signatures: Asia Crane ds1 Adelia Santacruz RN RN ll1 Corrections: (The following items were deleted from the chart) 14:30 14:26 Acuity: HOWIE 4 ll1 ll1
== END 2020-07-21 18:31 | disposition left against medical advice (07) ==
DX: Z53.21 Procedure and treatment not carried out due to patient leaving prior to being seen by health care provider (principal)
CPT/HCPCS: 99281

== ENCOUNTER 2020-07-22 02:45 | Emergency (ER) | payer BC ==
--- OUTSIDE RECORDS SUMMARY | 2020-07-22 02:48 | XMS REPORT | Continuity of Care Document ---
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/2020 reports SN[facility] I (disorder) 77 reaction from ASPIRIN Asthma (disorder) Active Problem 06/03/2020 [facility] Gastritis Active Problem 06/03/2020 [facility] (disorder) Neuro Hypertensive Active Problem 06/03/2020 M[facility] r disorder, systemic N euro arterial (disorder) Hypothyroidism Active Problem 06/03/2020 Misc her (disorder) Neuro,SNF I Migraine Active Problem 06/03/2020 [facility] (disorder) Neuro,SNF I Morbid obesity Active Problem 06/03/2020 [facility]isc her (disorder) Neuro,SNF I Thiamin deficiency Active Problem 06/03/2020 [facility] [...] headache, # 9 tab, 1 Refill(s), Pharmacy: [facility], 152.4, cm, 01/15/20 15:04:00 [...] 02/25/ [facility] mL IV Start Injection, 2019 [facility]] Subcutaneous, Once PRN for other (see comment), [...] 2019 [place]bron ro ea, 5 Refill(s), Pharmacy: [facility], 152.4, cm, 01/15/20 15:04:00 CDT, Height, 115.455, kg, 01/15/20 15:04:00 CDT, Weight rizatriptan 5 MG 5 mg = 1 tab, Active [facility]cher Oral Tablet PO, ONCE, PRN 2020 Neuro [Maxalt] for migraine headache, # 9 tab, 1 Refill(s), Pharmacy: [facility], 152.4, cm, 01/15/20 15:04:00 CDT, Height, 115.455, kg, 01/15/20 15:04:00 CDT, Weight rizatriptan 5 MG 5 mg = 1 tab, Active [facility]cher Oral Tablet PO, ONCE, PRN 2019 Neuro [Maxalt] for migraine headache, # 9 tab, 1 Refill(s), Pharmacy: [facility] amitriptyline 75 = 1 tab, PO, Active carrie mg oral tablet Bedtime, 2019 [place] ro ea, 1 Refill(s), Pharmacy: [facility] amitriptyline 75 75 mg = 1 Active 03/06/ Misch er mg oral tablet tab, PO, 2018 Neuro Bedtime, # 30 tab, 1 Refill(s), Pharmacy: [facility] rizatriptan 5 MG 5 mg = 1 tab, Active ischer Oral Tablet PO, ONCE, PRN 2018 Neuro [Maxalt] for migraine headache, # 9 tab, 1 Refill(s), Pharmacy: [facility] thiamine 100 mg 100 mg = 1 Active 02/14/ [facility] oral tablet tab, PO, 2019 Neuro Daily, X 30 day, # 30 tab, 3 Refill(s), Pharmacy: [facility] cyanocobalamin 1,000 Active 02/14/ [facility] 1000 mcg microgram = 1 2019 Neuro sublingual tablet tab, SL, Daily, # 30 tab, 2 Refill(s), Pharmacy: [facility] amitriptyline 50 50 mg = 1 Active 02/14/ Misch er mg oral tablet tab, PO, 2019 Neuro Bedtime, # 30 tab, 1 Refill(s), Pharmacy: [facility] rizatriptan 5 MG 5 mg = 1 tab, No Longer 01/25/ [facility] Oral Tablet PO, Daily, Active 2019 Neuro [Maxalt] PRN for migraine headache, X 6 day, # 6 tab, 1 Refill(s), Pharmacy: [facility] amitriptyline 50 50 mg = 1 No Longer 01/25/ Mis benji mg oral tablet tab, PO, Active 2019 Neuro Bedtime, # 30 tab, 1 Refill(s), Pharmacy: [facility] frovatriptan 2.5 2.5 mg = 1 No Longer 01/09/ Mi carrie mg oral tablet tab, PO, Active 2019 Neuro Daily, PRN for migraine headache, May repeat another dose at least 2 hours after the first dose, X 3 day, # 9 tab, 2 Refill(s), Pharmacy: [facility] eletriptan 40 MG See No Longer 01/07/ [facility] Oral Tablet Instructions, Active 2018 Neuro [Relpax] PO, Take 1-2 tabs orally at onset of migraine, may repeat dose once in 2 hours, X 3 day, # 6 tab, 1 Refill(s), Pharmacy: [facility] amitriptyline 25 25 mg = 1 Active 12/24/ Misch er mg oral tablet tab, PO, 2019 Neuro Bedtime, # 30 tab, 3 Refill(s), Pharmacy: [facility] cyanocobalamin 1,000 Active [facility] 1000 mcg microgram = 1 2019 Neuro sublingual tablet tab, SL, Daily, # 30 tab, 2 Refill(s), Pharmacy: [facility] thiamine 100 mg 100 mg = 1 Active 11/29/ Misch er oral tablet tab, PO, 2019 Neuro Daily, X 30 day, # 30 tab, 3 Refill(s), Pharmacy: [facility] amitriptyline 10 10 mg = 1 Active 11/22/ Misch er mg oral tablet tab, PO, 2019 Neuro Bedtime, # 30 tab, 3 Refill(s), Pharmacy: [facility] gabapentin 300 MG 300 [...] values reflect the clinical guidelines
of the [employer]. LABORATORY BUN 12 7 - [...] 02/14/2019 [facility] Respitory Rate 16 02/14/2019 [facility] Neuro Heart Rate 83 02/14/2019 [facility] Systolic (mm Hg) 123 02/14/2019 [facility] [place] Diastolic (mm Hg) 90 02/14/2019 [facility] BMI Cal[facility] 43.62 [facility] 108[facility]182 [facility] Height 157.48 cm 12/24/2018 [facility] Systolic (mm Hg) 134 12/24/2018 [facility] [place] Diastolic (mm Hg) 99 12/24/2018 [facility] Ne uro Respitory Rate 16 12/24/2018 [facility] Neuro Heart Rate 112 12/24/2018 [facility] Neuro Height 152.4 cm 12/20/2018 [facility] Neuro BMI Calculated 46.58 12/20/[facility] Weight 108.182 12/20/2018 [facility] Systolic (mm Hg) 117 12/20/2018 [facility] [place] Diastolic (mm Hg) 82 12/20/2018 [facility] Heart Rate 104 12/20/2018 [facility] Neuro Respitory Rate 16 12/20/2018 [facility] Systolic (mm Hg) 117 11/22/2018 [facility] [place] Diastolic (mm Hg) 90 11/22/2018 [facility] Ne uro Respitory Rate 16 11/22/2018 [facility] Neuro Height 157.48 cm 11/22/2018 [facility] Neuro Weight 106.364 11/22/2018 [facility] Neuro BMI Calculated 42.89 11/22/2018 [facility] Neuro Heart Rate 96 11/22/2018 [facility] Neuro Encounters Location Location Encounter Encounter Reason Attending ADM [place] Stat Source Details Type Number For Provider Date Date Visit Outpatient [id number] [place] 11/22 [facility] [id number] [place] 11/22 11/23 [facility] Neurology [facility] /2018 [facility] [place] Outpatient [id number] [place] 12/20 [facility] [place] Outpatient [id number] [place] 12/20 12/21 [facility] [place] /2018 [facility] [place] Outpatient [id number] [place] 12/24 [facility] [place] [facility] [id number] [place] 12/24 12/25 [facility] [place] /2018 [facility] [place] Outpatient [id number] [place] 02/14 [facility] [place] [facility] [id number] [place] 02/14 02/15 [facility] [place] /2018 [facility] [place] Outpatient [id number] [place] 05/23 [facility] [place] [facility] [id number] [place] 05/23 05/23 [facility] [place] Outpatient [id number] [place] 12/01 [facility] [place] [facility] [id number] [place] 12/01 12/02 [facility] [place] /2019 [facility] [place] Outpatient [id number] [place] 01/14 [facility] [place] [facility] [id number] [place] 01/14 [facility] [place] [facility] [id number] [place] 01/14 01/14 [facility] [place] /2019 [facility] [place] [facility] Outpatient [id number] [place] 01/14 01/15 [facility] [place] /2019 [facility] [place] [facility] Outpatient [id number] [place] 02/25 02/25 Active [facility] [place] [facility]2019 [facility] Outpatient [id number] [place] 02/25 02/25 [facility] [place] [facility] Outpatient [id number] [place] 06/01 [facility] [place] [facility] [id number] [place] 06/01 06/01 [facility] /2019 Neuro [place] Procedures Procedure Code Date Perfomer Comments Source APPLICATION SHORT auto-populated SNF I LEG SPLINT-CALF TO 0 from FOOT 98498 documented (Left)<sup>1</sup> surgical case ARTHROSCOPY ANKLE auto-populated SNF I W/EXCISION OF 0 from OSTEOCHONDRAL documented DEFECT OF TALUS surgical case AND/OR TIBIA 87982 (Left)<sup>2</s up> OPEN REDUCTION auto-populated [facility] INTERNAL FIXATION 0 from TALUS FRACTURE documented [id number] surgical case (Left)<sup>3</sup> Breast reduction, [id number] [facility] bilateral Bunionectomy [id number] [facility] Carpal tunnel [id number] [facility] syndrome of right wrist Plantar fasciitis [id number] [facility] of left foot Assessment and Plan [...]
--- OUTSIDE RECORDS SUMMARY | 2020-07-22 02:49 | XMS REPORT | Continuity of Care Document ---
:1975 Author Organization [facility] t Address [address] [place] [address] Care Team Providers Name Role Phone MARKEL [...] nondisplac nondisplac it y of ed ed [place] fracture fracture Physic i of dome of of dome of an s left talus left talus with with routine routine healing, healing, subsequent subsequent encounter encounter Right calf Right calf Problem Active U nivers pain pain ity of [place] Physici ans Pain of Pain of Problem Active Univers left calf left calf ity of [place] Physici ans Edema, Edema, Problem Active Univers lower lower [place] extremity extremity [place] Plantar Plantar Problem Active Univers fasciitis fasciitis ity of [place] Physici ans Left ankle Left ankle Problem Active U nivers pain pain ity of [place] Physici ans Asthma Problem Active 2020-06-03 Memor [...] 2020-06-03 M emoria (finding) 23:04:35 l Ankle [place] pain (finding) Active Problem 06/03/2020 [facility] [...] Active Univers to drug ity of (finding [place] ) Physici ans codeine Allergy Active Univers to drug ity of (finding [place] ) Physici ans aspirin aspirin Active Memoria l [place] Topamax Topamax Active Memoria l [place] codeine codeine Active Memoria sulfate sulfate l [place] Social History Smoking Status Start Date Stop Date Source Social History [facility] [place] Medications Ordered Filled Start Stop Current Ordering Indication Dosage Frequency Signature Comments Components Source Medication Medication Date Date Medication? Clinician (SIG) Name Name rizatriptan Yes 5 mg = 1 Me moria 5 MG Oral 9-15 tab, PO, l Tablet 22:44: ONCE, PRN Burak n [Maxalt] for migraine headache, # 9 tab, 1 Refill(s), Pharmacy: [facility], 152.4, cm, 01/15/20 15:04:00 [...] e 8-13 0.5 mL, l 15:20: Injection, [place] 00 IM, Once PRN for vomiting, first [...] Mem oria 8-13 mL, l 12:53: Injection, [place] 00 IV, Once, first dose 02/26/20 7:53:00 [...] Mem oria 8-13 mL, l 12:35: Injection, [place] 00 IV, Once, first dose 02/26/20 7:35:00 CDT, stop date 02/26/20 7:35:00 CDT midazolam 2020-0 No 1 mg = 1 Lev trupti 8-13 mL, l 12:34: Injection, [place] 00 IV, Once, first dose 02/26/20 7:34:00 CDT, stop date 02/26/20 7:34:00 CDT midazolam 2020-0 No 1 mg = 1 Lev trupti 8-13 mL, l 12:26: Injection, [place] 00 IV, Once, first dose 02/26/20 7:26:00 [...] IV Start 11:28: Subcutaneo Her paulino [[facility]] 00 us, Once PRN for other (see comment), first dose 02/26/20 6:28:00 CDT Allergy 2020-0 Yes mg, Oral, Memor ia Relief 8-05 Daily, 0 l 17:06: Refill(s) Tylenol PM 2020-0 Yes Oral, qHS, M emoria 8-05 0 l 17:05: Refill(s), [place] 00 sleep /pain amitriptyli 2020-0 Yes 75 [...] PO, l oral tablet 20:24: Bedtime, # [place] 00 30 ea, 5 Refill(s), Pharmacy: [facility], 152.4, cm, 01/15/20 15:04:00 CDT, Height, 115.455, kg, 01/15/20 15:04:00 CDT, Weight rizatriptan 2020-0 Yes 5 mg = 1 Me moria 5 MG Oral 7-02 tab, PO, l Tablet 20:24: ONCE, PRN Burak n [Maxalt] 00 for migraine headache, # 9 tab, 1 Refill(s), Pharmacy: [facility], 152.4, cm, 01/15/20 15:04:00 CDT, Height, 115.455, kg, 01/15/20 15:04:00 CDT, Weight rizatriptan 2019-0 Yes 5 mg = 1 Me moria 5 MG Oral 5-19 tab, PO, l Tablet 21:06: ONCE, PRN Burak n [Maxalt] 00 for migraine headache, # 9 tab, 1 Refill(s), Pharmacy: [facility] amitriptyli 2019-0 Yes = 1 tab, Me moria ne 75 mg 5-19 PO, l oral tablet 21:06: Bedtime, # [place] 00 30 ea, 1 Refill(s), Pharmacy: [facility] amitriptyli 2018- Yes 75 mg = 1 M emoria ne 75 mg 8-22 tab, PO, l oral tablet 18:27: Bedtime, # [place] 00 30 tab, 1 Refill(s), Pharmacy: [facility] rizatriptan 2018-0 Yes 5 mg = 1 Me moria 5 MG Oral 8-02 tab, PO, l Tablet 20:24: ONCE, PRN Burak n [Maxalt] 09 for migraine headache, # 9 tab, 1 Refill(s), Pharmacy: [facility] thiamine 2018- Yes 100 mg = 1 Mem oria 100 mg oral 8-02 tab, PO, l tablet 20:23: Daily, X [place] 17 30 day, # 30 tab, 3 Refill(s), Pharmacy: [facility] cyanocobala 2018- Yes 1,000 Memor ia min 1000 8-02 microgram l mcg 20:23: = 1 tab, [place] sublingual 13 SL, Daily, tablet # 30 tab, 2 Refill(s), Pharmacy: [facility] amitriptyli 2018-0 Yes 50 mg = 1 M emoria ne 50 mg 8-02 tab, PO, l oral tablet 20:23: Bedtime, # [place] 09 30 tab, 1 Refill(s), Pharmacy: [facility] rizatriptan No 5 mg = 1 Me moria 5 MG Oral 7-13 tab, PO, l Tablet 01:53: Daily, PRN Antonia nn [Maxalt] 00 for migraine headache, X 6 day, # 6 tab, 1 Refill(s), Pharmacy: [facility] amitriptyli No 50 mg = 1 M emoria ne 50 mg 7-13 tab, PO, l oral tablet 01:53: Bedtime, # [place] 00 30 tab, 1 Refill(s), Pharmacy: [facility] frovatripta No 2.5 mg = 1 Memoria n 2.5 mg 6-27 tab, PO, l oral tablet 15:37: Daily, PRN [place] 00 for migraine headache, May repeat another dose at least 2 hours after the first dose, X 3 day, # 9 tab, 2 Refill(s), Pharmacy: [facility] eletriptan No See Memoria 40 MG Oral 6-25 Instructio l Tablet 23:35: ns, PO, [place] [Relpax] 00 Take 1-2 tabs orally at onset of migraine, may repeat dose once in 2 hours, X 3 day, # 6 tab, 1 Refill(s), Pharmacy: [facility] amitriptyli Yes 25 mg = 1 M emoria ne 25 mg 6-11 tab, PO, l oral tablet 21:16: Bedtime, # [place] 00 30 tab, 3 Refill(s), Pharmacy: [facility] cyanocobala Yes 1,000 Memor ia min 1000 6-07 microgram l mcg 19:39: = 1 tab, [place] sublingual 00 SL, Daily, tablet # 30 tab, 2 Refill(s), Pharmacy: [facility] thiamine Yes 100 mg = 1 Mem oria 100 mg oral 5-17 tab, PO, l tablet 18:13: Daily, X [place] 00 30 day, # 30 tab, 3 Refill(s), Pharmacy: [facility] amitriptyli Yes 10 mg = 1 M emoria ne 10 mg 5-10 tab, PO, l oral tablet 20:44: Bedtime, # [place] 00 30 tab, 3 Refill(s), Pharmacy: [facility] gabapentin 2019- Yes 300 [...] ne Sodium ity o f TABS TABS [place] Physici ans Meloxicam Meloxicam Yes M.D. Unive rs TABS TABS ity of [place] Physici ans Amitriptyli Amitriptyli Yes M.D. U nivers ne HCl TABS ne HCl TABS i ty of [place] Physici ans Vital Signs Vital Name Observation Time Observation Value Comments Source Respitory Rate 2020-02-26 16:32:00 Memori al [place] Systolic (mm Hg) 2020-02-26 16:32:00 Lev rial [place] Diastolic (mm Hg) 2020-02-26 16:32:00 Mem orial [place] Heart Rate 2020-02-26 16:00:00 [facility] [place] Respitory Rate 2020-02-26 16:00:00 Memori al [place] Systolic (mm Hg) 2020-02-26 16:00:00 Lev rial [place] Diastolic (mm Hg) 2020-02-26 16:00:00 Mem orial [place] Heart Rate 2020-02-26 15:50:00 [facility] [place] Respitory Rate 2020-02-26 15:50:00 Memori al [place] Systolic (mm Hg) 2020-02-26 15:50:00 Lev rial [place] Diastolic (mm Hg) 2020-02-26 15:50:00 Mem orial [place] Heart Rate 2020-02-26 15:40:00 [facility] [place] Temperature Oral (F) 2020-02-26 15:20:00 37.0 Sole [facility] [place] Temperature Oral (F) 2020-02-26 11:25:00 37.2 Sole [facility] [place] Height 2020-02-26 11:25:00 158 cm [facility] [place] Height 2020-02-18 16:59:00 158 cm [facility] [place] Systolic blood 2020-02-02 14:39:00 134 mm[Hg] Univer sity of pressure [place] Physician s Diastolic blood 2020-02-02 14:39:00 64 mm[Hg] Unive rsity of pressure [place] Physician s Body height 2020-02-02 14:39:00 63 [in_us] Universi ty of [place] Physician s Weight 2020-02-02 14:39:00 147 [lb_av] Universi ty [facility] Physician s Body mass index 2020-02-02 14:39:00 26.04 kg/m2 Unive rsity of (BMI) [Ratio] [place] Physicia ns Heart Rate 2020-02-02 14:39:00 74 /min Universi ty [facility] Physician s Systolic (mm Hg) 2020-01-15 20:04:00 Lev rial [place] Diastolic (mm Hg) 2020-01-15 20:04:00 Mem orial [place] Heart Rate 2020-01-15 20:04:00 [facility] [place] Respitory Rate 2020-01-15 20:04:00 Memori al [place] Height 2020-01-15 20:04:00 152.4 cm [facility] [place] Weight 2020-01-15 20:04:00 [facility] [place] BMI Calculated 2020-01-15 20:04:00 Memori al [place] Systolic (mm Hg) 2019-12-02 20:40:00 Lev rial [place] Diastolic (mm Hg) 2019-12-02 20:40:00 Mem orial [place] Heart Rate 2019-12-02 20:40:00 [facility] [place] Respitory Rate 2019-12-02 20:40:00 Memori al [place] Height 2019-12-02 20:40:00 152.4 cm [facility] [place] Weight 2019-12-02 20:40:00 [facility] [place] BMI Calculated 2019-12-02 20:40:00 Memori al [place] Weight 2019-02-14 19:40:00 [facility] [place] BMI Calculated 2019-02-14 19:40:00 Memori al [place] Height 2019-02-14 19:40:00 160.02 cm [facility] [place] Respitory Rate 2019-02-14 19:40:00 Memori al [place] Heart Rate 2019-02-14 19:40:00 [facility] [place] Systolic (mm Hg) 2019-02-14 19:40:00 Lev rial [place] Diastolic (mm Hg) 2019-02-14 19:40:00 Mem orial [place] BMI Calculated 2018-12-24 20:38:00 Memori al [place] Weight 2018-12-24 20:38:00 [facility] [place] Height 2018-12-24 20:38:00 157.48 cm [facility] [place] Systolic (mm Hg) 2018-12-24 20:38:00 Lev rial [place] Diastolic (mm Hg) 2018-12-24 20:38:00 Mem orial [place] Respitory Rate 2018-12-24 20:38:00 Memori al [place] Heart Rate 2018-12-24 20:38:00 [facility] [place] Height 2018-12-20 19:20:00 152.4 cm [facility] [place] BMI Calculated 2018-12-20 19:20:00 Memori al [place] Weight 2018-12-20 19:20:00 [facility] [place] Systolic (mm Hg) 2018-12-20 19:20:00 Lev rial [place] Diastolic (mm Hg) 2018-12-20 19:20:00 Mem orial [place] Heart Rate 2018-12-20 19:20:00 [facility] [place] Respitory Rate 2018-12-20 19:20:00 Memori al [place] Systolic (mm Hg) 2018-11-22 19:23:00 Lev rial [place] Diastolic (mm Hg) 2018-11-22 19:23:00 Mem orial [place] Respitory Rate 2018-11-22 19:23:00 Memori al [place] Height 2018-11-22 19:23:00 157.48 cm [facility] [place] Weight 2018-11-22 19:23:00 [facility] [place] BMI Calculated 2018-11-22 19:23:00 Carissa Redman Heart Rate 2018-11-22 19:23:00 [facility] Procedures Procedure Date / Time Performing Clinician Source Performed MR Ankle wo contrast 2020-07-02 00:00:00 [facility] [address] Physicians [MMD] US Lower Extremity 2020-05-31 00:00:[facility] Venous Doppler Bilateral Physici ans Post Op Promis 29 Survey 2020-03-12 00:00:00 [facility] Physicians APPLICATION SHORT LEG 2020-02-26 13:13:00 Craissa Redman SPLINT-CALF TO FOOT 47331 (Left)<sup>1</sup> ARTHROSCOPY ANKLE 2020-02-26 13:13:00 [facility] jose 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 75272 (Left)<sup>2</sup> OPEN REDUCTION INTERNAL 2020-02-26 13:13:00 Lev rial [place] FIXATION TALUS FRACTURE 56384 (Left)<sup>3</sup> [L] 2019 2020-02-05 00:00:00 [place] [facility] [place] Coronavirus (COVID-19), Physicia ns MARK [UTP] Ortho - Surgery 2020-02-02 00:00:00 [facility] Scheduling Physicians History of Breast [facility] reduction Physicians History of Carpal tunnel Univers [facility] surgery Physicians Breast reduction, [facility] nn bilateral Bunionectomy [facility] Carpal tunnel syndrome [facility] of right wrist Plantar fasciitis of [facility] left foot Plan of Care Planned Activity Planned Date Details Comments Source Diagnostic Test 2020-02-02 [UTP] Ortho - [facility] Pending 00:00:00 Surgery Scheduling Physician s [code = [UTP] Ortho - Surgery Scheduling] Encounters Start End Encounter Admission Attending Care Care Encounter Source Date/Time Date/Time Type Type Clinicians Facility Department ID 2020-07-02 2020-07-02 Appointmen NEAL JEAN BAPTISTE Orthopedics [id number] Univers 14:30:00 14:30:00 t; RAJI JEAN BAPTISTE, - [place] vito ALEGRIA DPM [address] DPM Physici ans 2020-06-01 2020-06-01 Out[id number] 14:00:00 14:00:00 Malcom 08 Santos 2020-05-31 2020-05-31 Appointmen [facility] Orthopedics [id number] Univers 10:00:00 10:00:00 t; RAJI JEAN BAPTISTE, - [place] RA[place]I, D[place] [address] [place] DPM Physici ans 2020-05-10 2020-05-10 Appointmen [facility] Orthopedics [id number] Univers 09:00:00 09:00:00 t; RAJI JEAN BAPTISTE, - [place] RAJI, DPM [place] [address] [place] DPM Physici ans 2020-04-27 2020-04-27 Appointmen [facility] Orthopedics [id number] Univers 14:45:00 14:45:00 t; RAJI JEAN BAPTISTE, - [place] RAJI, D[place] DPM Physici ans 2020-03-29 2020-03-[facility] Orthopedics [id number] Univers 13:00:00 13:00:00 t; ARJI JEAN BAPTISTE, - [place]I, DPM [place] DPM Physici ans 2020-03-08 2020-03-08 [facility] Orthopedics [id number] Univers 11:15:00 11:15:00 t; RAJI JEAN BAPTISTE, - [place]JI, DPM [place] DPM Physici ans 2020-02-26 2020-02-26 Outpatient Markel, [id number] 05:46:09 11:30:00 Raji 8 2020-02-26 2020-02-26 [facility] Orthopedics [id number] Univers 10:30:00 10:30:00 t; RAJI JEAN BAPTISTE, - [place], DPM [place] DPM Physici ans 2020-02-02 2020-02-02 [facility] Orthopedics [id number] Univers 10:45:00 10:45:00 t; RAJI JEAN BAPTISTE, - [place], DPM [place] DPM Physici ans 2020-01-15 2020-01-15 Outpatient VIRGILIO Espinal [id number] 15:00:00 23:59:59 Malcom 07 Santos 2020-01-15 2020-01-15 Outpatient VIPUL EspinalSCHER MHMISCHER [id number] 15:00:00 15:00:00 Malcom Santos 2019-12-02 2019-12-02 Outpatient VIPUL EspinalSCHER VIPULSCHER [id number] 15:30:00 23:59:59 Malcom Santos 2019-05-23 2019-05-23 Outpatient VIPUL EspinalSCHER VIPULSCHER [id number] 13:15:00 13:15:00 Malcom Santos 2019-03-23 2019-03-23 Emergency Harish, [facility] [id number] 12:37:57 13:11:00 Palomo Guy [id number] [place] [id number] [place] [id number] 2019-03-23 2019-03-23 Orders Doctor SPENSER [id number] 00:00:00 00:00:00 Only Unassigned, MARIA ELENA [id number] [place] [id number] 2019-02-14 2019-02-14 Outpatient VIPUL EspinalSCHER IVPULSCHER [id number] 15:00:00 23:59:59 Malcom 02 Santos 2018-12-24 2018-12-24 Outpatient VIPUL EspinalSCHER MHMISCHER [id number] 15:15:00 23:59:59 Malcom 03 Santos 2018-12-20 2018-12-20 Outpatient VIPUL EspinalSCHER MHMISCHER [id number] 13:45:00 23:59:59 Malcom Santos 2018-11-22 2018-11-22 Outpatient DIMA EspinalMISCHER MHMISCHER [id number] 14:45:00 23:59:59 Malcom 00 [facility] Results Test Description Test Time Test Comments Results Result [facility] LABORATORY 2020-02-18 89 [facility] 17:38:00 [place] LABORATORY 2020-02-18 12 [facility] 17:38:00 [facility] 2020-02-18 0.79 [facility] 17:38:00 [place] LABORATORY 2020-02-18 141 [facility] 17:38:00 [place] LABORATORY 2020-02-18 4.5 [facility] 17:38:00 [place] LABORATORY 2020-02-18 108 [facility] 17:38:00 [place] LABORATORY 2020-02-18 24 [facility] 17:38:00 [place] LABORATORY 2020-02-18 13.5 [facility] 17:38:00 [place] LABORATORY 2020-02-18 9.5 [facility] 17:38:00 [place] LABORATORY 2020-02-18 92 [facility] 17:38:00 [place] LABORATORY 2020-02-18 Reported [facility] 17:38:00 (02/18/20 12:38 [place] PM) LABORATORY 2020-02-18 6.4 [facility] 17:38:00 [place] LABORATORY 2020-02-18 4.37 [facility] 17:38:00 [place] LABORATORY 2020-02-18 12.7 [facility] 17:38:00 [place] LABORATORY 2020-02-18 38.3 [facility] 17:38:00 [place] LABORATORY 2020-02-18 87.5 [facility] 17:38:00 [place] LABORATORY 2020-02-18 17:38:00 Test Item Value Reference Range Interpretation Comme nts MCH (test code = MCH) 29.2 pg 27.0-31.0 [facility] [id number] 17:38:0033.3[facility] 2020-02-18 17:38:0014.2[facility] FvwbfelXQEVBTMMHT6535-66-09 17:38:89782Usatqnan RmjpupoHVSGGJNUNL8456-04-45 17:38:008.3[facility] [id number] 17:38:000.1[facility] [id number] 17:38:00Reported (02/18/20 12:38 PM)[facility] [id number] 17:38:0062.2[facility] 2020-02-18 17:38:006.8[facility] [id number] 17:38:0026.9[facility] [id number] 17:38:003.6[facility] ShomdabDIBGNUIZGE5772-20-37 17:38:000.5[facility] [id number] 17:38:004.0[facility] [place] [id number] 17:38:001.7[facility] AjyjnmoRGJRCCIUST2100-21-18 17:38:000.4 [facility] [id number] 17:38:000.2[facility] 2020-02-18 17:38:00Reported (02/18/20 12:38 PM)[facility]
[2020-07-22] MEDS ORDERED: NA CHLORIDE 0.9% 250 ML ONE (04:17)
[2020-07-22] MEDS ORDERED: AZITHROMYCIN 500 MG INJ IVPB ONE (04:17)
[2020-07-22] MEDS ORDERED: dexAMETHasone 10 MG/ML VIAL ONE (04:17)
[2020-07-22 04:18] LABS: Absolute Lymphocytes (CBC) 3.3 K/uL (0.7-4.9); Basophils % 0.4 % (0-1.3); Hematocrit 40.1 % (36.0-45.0); Lymphocytes % 25.4 % (15.3-44.8); MPV 7.8 fL (7.6-11.3); RBC Red Blood Cell Count 4.69 M/uL (3.86-4.86)
[2020-07-22] MEDS ORDERED: ALBUTEROL INHALER 60 PUFF/8 GM IH ONE (04:18)
[2020-07-22] MEDS ORDERED: CEFTRIAXONE/SWI 1gm 1 GM/10 ML SYR ONE (04:18)
[2020-07-22] MEDS ORDERED: NA CHLORIDE 0.9% 500 ML ONE (04:18)
[2020-07-22] MEDS ORDERED: FAMOTIDINE 20 MG/2 ML VIAL IV ONE (04:18)
[2020-07-22 04:26] LABS: Protime INR 1.14
[2020-07-22 04:38] LABS: ALT/SGPT 17 U/L (12-78); AST/SGOT 6 U/L (15-37); Albumin 3.4 g/dL (3.4-5.0); Alkaline Phosphatase 83 U/L (45-117); BUN Blood Urea Nitrogen 22 mg/dL (7-18); Bicarbonate 31 mmol/L (21-32); Bilirubin Direct 0.1 mg/dL (0-0.2); Bilirubin Total 0.4 mg/dL (0.2-1.0); Glucose Level 103 mg/dL (74-106); Magnesium 2.2 mg/dL (1.8-2.4); NT PRO-BNP 16 pg/mL (<125); Potassium 3.6 mmol/L (3.5-5.1); Protein, Total 7.6 g/dL (6.4-8.2); Sodium Level 136 mmol/L (136-145); Troponin (Emerg Dept Use Only) < 0.02 ng/mL (0.0-0.045)
--- NOTE | 2020-07-22 05:42 | ER ---
Nurse's Notes [facility] Name: Trudi Villavicencio Age: 45 yrs Sex: Female : 1975 Arrival Date: 07/22/2020 Time: 02:46 Bed 19 Private MD: Diagnosis: Dyspnea;Bronchitis, not specified as acute or chronic;Acute upper respiratory infection, unspecified Presentation: 07/22 02:51 Chief complaint: Patient states: Feeling sick with cough and shortness of breath since 07/10, was swabbed cov[facility] at [facility] on 07/13 with a negative result but diagnosed with bronchitis, states is here because not feeling better. Coronavirus screen: Client denies travel out of the [place] in the last 14 days. fatigue, shortness of breath, Client presents with at least one sign or symptom that may indicate coronavirus-19. Standard/surgical mask placed on the client. Provider contacted for isolation considerations. Ebola Screen: Patient negative for fever greater than or equal to 101.5 degrees Fahrenheit, and additional compatible Ebola Virus Disease symptoms Patient denies exposure to infectious person. Patient denies travel to an Ebola-affected area in the 21 days before illness onset. No symptoms or risks identified at this time. Initial Sepsis Screen: Does the patient meet any 2 criteria? No. Patient's initial sepsis screen is negative. Does the patient have a suspected source of infection? No. Patient's initial sepsis screen is negative. Risk Assessment: Do you want to hurt yourself or someone else? Patient reports no desire to harm self or others. Onset of symptoms was July 22, 2020. Care prior to arrival: None. Activity prior to arrival: None. 02:51 Method Of Arrival: Ambulatory 02:51 Acuity: HOWIE 4 sg Triage Assessment: 03:00 Respiratory: the patient reports symptoms have resolved. 03:00 Respiratory: Onset: The symptoms/episode began/occurred at an unknown time. 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 - Social history:: Smoking status: Patient denies any tobacco usage or history of. - Family history:: not pertinent. Screenin:00 Abuse screen: Denies threats or abuse. Denies injuries from another. Nutritional screening: No deficits noted. Tuberculosis screening: No symptoms or risk factors identified. Fall Risk None identified. Assessment: 03:00 General: Appears in no apparent distress. Behavior is calm, cooperative. Pain: Denies pain. Neuro: Level of Consciousness is awake, alert, obeys commands, Oriented to person, place, time, situation. Cardiovascular: Heart tones S1 S2 Rhythm is sinus tachycardia. Respiratory: Reports shortness of breath cough that is Airway is patent Respiratory effort is even, unlabored, Respiratory pattern is regular, symmetrical, Breath sounds are clear bilaterally. GI: Abdomen is round non-distended. : No signs and/or symptoms were reported regarding the genitourinary system. EENT: No signs and/or symptoms were reported regarding the EENT system. Derm: Skin is intact, is healthy with good turgor, Skin is pink, warm \T\ dry. normal. Musculoskeletal: Circulation, motion, and sensation intact. 04:15 Reassessment: Patient appears in no apparent distress at this time. No changes from previously documented assessment. Patient and/or family updated on plan of care and expected duration. Pain level reassessed. Patient is alert, oriented x 3, equal unlabored respirations, skin warm/dry/pink. 05:30 Reassessment: Patient appears in no apparent distress at this time. Patient and/or family updated on plan of care and expected duration. Pain level reassessed. Patient is alert, oriented x 3, equal unlabored respirations, skin warm/dry/pink. Vital Signs: 02:58 BP 132 / 87; Pulse 114; Resp 22; Temp 97.9; Pulse Ox 100% on R/A; sg 04:15 BP 103 / 68; Pulse 99; Resp 20; Pulse Ox 99% ; 05:45 BP 110 / 58; Pulse 95; Resp 18; Pulse Ox 99% on R/A; ED Course: 02:46 Patient arrived in ED. cl3 02:52 Triage completed. sg 02:53 Arm band placed on. sg 02:55 Giuseppe Akers MD is Attending Physician. rosa 02:56 Lauri Queen, BECK is Primary Nurse. rr5 03:00 Patient has correct armband on for positive identification. Placed in gown. Bed in low wh position. Call light in reach. Side rails up X 1. shelter monitor on. Pulse ox on. NIBP on. 03:10 Inserted saline lock: 20 gauge in right antecubital area, using aseptic technique. Blood collected. 03:37 XRAY Chest (1 view) In Process Unspecified. EDMS 05:12 CT Chest For PE Angio In Process Unspecified. EDNJ 05:41 Yash Verdugo MD is Referral Physician. [facility] 06:15 No provider procedures requiring assistance completed. IV discontinued, intact, bleeding controlled, No redness/swelling at site. Administered Medications: 04:11 Drug: NS 0.9% 500 ml Route: IV; Rate: bolus; Site: right antecubital; 06:18 Follow up: Response: No adverse reaction; IV Status: Completed infusion 04:13 Drug: Pepcid 20 mg Route: IVP; Site: right antecubital; 06:18 Follow up: Response: No adverse reaction 04:15 Drug: Rocephin 1 grams Route: IV; Rate: per protocol; Site: right antecubital; 06:17 Follow up: Response: No adverse reaction; IV Status: Completed infusion 04:17 Drug: Albuterol HFA Inhaler 4 puffs Route: Inhalation; 06:17 Follow up: Response: No adverse reaction 04:19 Drug: Decadron - Dexamethasone 10 mg Route: IVP; Site: right antecubital; 06:16 Follow up: Response: No adverse reaction 04:21 Drug: Zithromax 500 mg Route: IVPB; Infused Over: 1 hrs; Site: right antecubital; 06:17 Follow up: Response: No adverse reaction; IV Status: Completed infusion Outcome: 05:41 Discharge ordered by . rosa 06:15 Discharged to home ambulatory. 06:15 Condition: stable 06:15 Discharge instructions given to patient, Instructed on discharge instructions, follow up and referral plans. medication usage, POC Demonstrated understanding of instructions, follow-up care, medications, POC Prescriptions given X 4. 06:18 Patient left the ED. Signatures: Dispatcher MedHo Jona Clements, BECK RN sg Giuseppe Akers MD MD cha Habalo, Winsy wh Roque, Raymond, RN RN rr5 Christina Santacruz cl3
--- NOTE | 2020-07-22 05:42 | EDPHYS ---
Physician Documentation [facility] Name: Trudi Villavicencio Age: 45 yrs Sex: Female : 1975 Arrival Date: 07/22/2020 Time: 02:46 Bed 19 Private MD: ED Physician Giuseppe Akers HPI: 07/22 03:19 This 45 yrs old Female presents to ER via Ambulatory with complaints of rosa Cough, Shortness Of Breath. 03:19 The patient or guardian reports airway noise, cough, flu symptoms, arthralgias, rosa myalgias. Onset: The symptoms/episode began/occurred 1 day(s) ago. Severity of symptoms: At their worst the symptoms were mild, in the emergency department the symptoms have resolved. Modifying factors: The symptoms are alleviated by nothing, the symptoms are aggravated by nothing. Associated signs and symptoms: The patient has no apparent associated signs or symptoms. The patient has not experienced similar symptoms in the past. RANGE AID: 03:10 LMP 06/2020 wh Historical: - Allergies: 02:53 Aspirin; sg 02:53 Codeine; sg 02:53 Topamax; sg 02:53 tramadol; sg - PMHx: 02:53 Asthma; bleeding ulcer; Degenerative disc disease; DGD; enlarged aorta; erosive sg gastritis; Fibromyalgia; Herniated disc; neuropathy; - Immunization history:: Adult Immunizations up to date. - Social history:: Smoking status: Patient denies any tobacco usage or history of. - Family history:: not pertinent. ROS: 03:19 Constitutional: Negative for fever, chills, and weight loss, Eyes: Negative for injury, rosa pain, redness, and discharge, ENT: Negative for injury, pain, and discharge, Neck: Negative for injury, pain, and swelling, Cardiovascular: Negative for chest pain, palpitations, and edema, Abdomen/GI: Negative for abdominal pain, nausea, vomiting, diarrhea, and constipation, Back: Negative for injury and pain, : Negative for injury, bleeding, discharge, and swelling, MS/Extremity: Negative for injury and deformity, Skin: Negative for injury, rash, and discoloration, Neuro: Negative for headache, weakness, numbness, tingling, and seizure, Psych: Negative for depression, anxiety, suicide ideation, homicidal ideation, and hallucinations, Allergy/Immunology: Negative for hives, rash, and allergies, Endocrine: Negative for neck swelling, polydipsia, polyuria, polyphagia, and marked weight changes, Hematologic/Lymphatic: Negative for swollen nodes, abnormal bleeding, and unusual bruising. 03:19 Respiratory: Positive for cough, shortness of breath. Exam: 03:19 Constitutional: This is a well developed, well nourished patient who is awake, alert, rosa and in no acute distress. Head/Face: Normocephalic, atraumatic. Eyes: Pupils equal round and reactive to light, extra-ocular motions intact. Lids and lashes normal. Conjunctiva and sclera are non-icteric and not injected. Cornea within normal limits. Periorbital areas with no swelling, redness, or edema. ENT: Nares patent. No nasal discharge, no septal abnormalities noted. Tympanic membranes are normal and external auditory canals are clear. Oropharynx with no redness, swelling, or masses, exudates, or evidence of obstruction, uvula midline. Mucous membranes moist. Neck: Trachea midline, no thyromegaly or masses palpated, and no cervical lymphadenopathy. Supple, full range of motion without nuchal rigidity, or vertebral point tenderness. No Meningismus. Chest/axilla: Normal chest wall appearance and motion. Nontender with no deformity. No lesions are appreciated. Cardiovascular: Regular rate and rhythm with a normal S1 and S2. No gallops, murmurs, or rubs. Normal PMI, no JVD. No pulse deficits. Respiratory: Lungs have equal breath sounds bilaterally, clear to auscultation and percussion. No rales, rhonchi or wheezes noted. No increased work of breathing, no retractions or nasal flaring. Abdomen/GI: Soft, non-tender, with normal bowel sounds. No distension or tympany. No guarding or rebound. No evidence of tenderness throughout. Back: No spinal tenderness. No costovertebral tenderness. Full range of motion. Skin: Warm, dry with normal turgor. Normal color with no rashes, no lesions, and no evidence of cellulitis. MS/ Extremity: Pulses equal, no cyanosis. Neurovascular intact. Full, normal range of motion. Neuro: Awake and alert, GCS 15, oriented to person, place, time, and situation. Cranial nerves II-XII grossly intact. Motor strength 5/5 in all extremities. Sensory grossly intact. Cerebellar exam normal. Normal gait. Psych: Awake, alert, with orientation to person, place and time. Behavior, mood, and affect are within normal limits. 03:19 Musculoskeletal/extremity: DVT Exam: No signs of deep vein thrombosis. no pain, no swelling, no tenderness, negative Homans' sign noted on exam, no appreciated bluish discoloration, no erythema, no increased warmth. 03:57 ECG was reviewed by the Attending Physician. rosa Vital Signs: 02:58 BP 132 / 87; Pulse 114; Resp 22; Temp 97.9; Pulse Ox 100% on R/A; sg 04:15 BP 103 / 68; Pulse 99; Resp 20; Pulse Ox 99% ; wh 05:45 BP 110 / 58; Pulse 95; Resp 18; Pulse Ox 99% on R/A; wh MDM: 02:55 Patient medically screened. [facility] 03:21 Differential Diagnosis: Bronchitis Influenza Upper Respiratory Infection Asthma rosa Exacerbation Viral Syndrome Pneumonia. Data reviewed: vital signs, nurses notes, diagnostic data from outside facility, lab test result(s), EKG, radiologic studies, CT scan, plain films. Data interpreted: formula checker: rate is 114 beats/min, rhythm is regular, Pulse oximetry: on room air is 114 %. Test interpretation: by ED physician or midlevel provider: ECG, plain radiologic studies. Counseling: I had a detailed discussion with the patient and/or guardian regarding: the historical points, exam findings, and any diagnostic results supporting the discharge/admit diagnosis, lab results, radiology results, the need for outpatient follow up, for definitive care, an machine erector, a medical office clerk. 07/22 03:18 Order name: Basic Metabolic Panel; Complete Time: 05: [facility] 07/22 03:18 Order name: CBC with Diff; Complete Time: 05:22 [facility] 07/22 03:18 Order name: LFT's; Complete Time: 05:22 [facility] 07/22 03:18 Order name: Magnesium; Complete Time: 05:22 [facility] 07/22 03:18 Order name: NT PRO-BNP; Complete Time: 05:22 [facility] 07/22 03:18 Order name: PT-INR; Complete Time: 05:22 [facility] 07/22 03:18 Order name: Troponin (emerg Dept Use Only); Complete Time: 05: [facility] 07/22 03:18 Order name: XRAY Chest (1 view) [facility] 07/22 03:18 Order name: Blood Culture Adult (2) [facility] 07/22 03:18 Order name: CT Chest For PE Angio [facility] 07/22 03:18 Order name: EKG; Complete Time: 03:19 [facility] 07/22 03:18 Order name: Cardiac monitoring; Complete Time: 03:57 [facility] 07/22 03:18 Order name: EKG - Nurse/Tech; Complete Time: 03:57 [facility] 07/22 03:18 Order name: IV Saline Lock; Complete Time: 03:57 [facility] 07/22 03:18 Order name: Labs collected and sent; Complete Time: 03:57 [facility] 07/22 03:18 Order name: O2 Per Protocol; Complete Time: 03:57 [facility] 07/22 03:18 Order name: O2 Sat Monitoring; Complete Time: 03:57 [facility] EC:57 Rate is 106 beats/min. Rhythm is regular. QRS [place] is Normal. PA interval is normal. [facility] QRS interval is normal. QT interval is normal. No Q waves. T waves are Normal. No ST changes noted. Clinical impression: Normal ECG and No evidence of ischemia. Interpreted by me. Reviewed by me. Administered Medications: 04:11 Drug: NS 0.9% 500 ml Route: IV; Rate: bolus; Site: right antecubital; 06:18 Follow up: Response: No adverse reaction; IV Status: Completed infusion 04:13 Drug: Pepcid 20 mg Route: IVP; Site: right antecubital; 06:18 Follow up: Response: No adverse reaction 04:15 Drug: Rocephin 1 grams Route: IV; Rate: per protocol; Site: right antecubital; 06:17 Follow up: Response: No adverse reaction; IV Status: Completed infusion 04:17 Drug: Albuterol HFA Inhaler 4 puffs Route: Inhalation; 06:17 Follow up: Response: No adverse reaction 04:19 Drug: Decadron - Dexamethasone 10 mg Route: IVP; Site: right antecubital; 06:16 Follow up: Response: No adverse reaction 04:21 Drug: Zithromax 500 mg Route: IVPB; Infused Over: 1 hrs; Site: right antecubital; 06:17 Follow up: Response: No adverse reaction; IV Status: Completed infusion Disposition: 01/07/21 05:41 Discharged to Home. Impression: Dyspnea, Bronchitis, not specified as acute or chronic, Acute upper respiratory infection, unspecified. - Condition is Stable. - Discharge Instructions: Acute Bronchitis, Adult, How to Use an Inhaler, Shortness of Breath, Upper Respiratory Infection, Adult, Cool Mist Vaporizer, Shortness of Breath, Agbi-py-Dkfa, Upper Respiratory Infection, Adult, Uotr-na-Jlyd, Cough, Adult, Bfeg-si-Nwjv, Cough, Adult. - Prescriptions for dexamethasone 2 mg Oral tablet - take 1 tablet by ORAL route 3 times per day; 15 tablet. Pepcid 20 mg Oral Tablet - take 1 tablet by ORAL route every 12 hours for 10 days; 20 tablet. Albuterol Sulfate 90 mcg/actuation - inhale 1-2 puff by INHALATION route every 4-6 hours; 1 Inhaler. Zithromax 500 mg Oral Tablet - take 1 tablet by ORAL route once daily for 4 days; 4 tablet. - Medication Reconciliation Form, Thank You Letter, Antibiotic Education, Prescription Opioid Use form. - Follow up: Private Physician; When: 2 - 3 days; Reason: Recheck today's complaints, Continuance of care, Re-evaluation by your physician. Follow up: Yash Verdugo; When: 2 - 3 days; Reason: Recheck today's complaints, Re-evaluation by your physician. - Problem is new. - Symptoms have improved. Signatures: Dispatcher [employer] EDMS Jona Benavides RN RN sg Anderson, Corey, MD MD cha Habalo, Winsy Corrections: (The following items were deleted from the chart) 05:33 03:19 Influenza Screen (A \T\ B)+BA.LAB.BRZ ordered. EDMS EDMS 05:33 03:19 CORONAVIRUS+MR.LAB.BRZ ordered. EDMS EDMS 06:18 05:41 07/22/2020 05:41 Discharged to Home. Impression: Dyspnea; Bronchitis, not wh specified as acute or chronic; Acute upper respiratory infection, unspecified. Condition is Stable. Discharge Instructions: Acute Bronchitis, Adult, How to Use an Inhaler, Shortness of Breath, Upper Respiratory Infection, Adult, Cool Mist Vaporizer, Shortness of Breath, Mlud-ec-Iofx, Upper Respiratory Infection, Adult, Bdxr-em-Cygg, Cough, Adult, Seoz-fk-Lrcr, Cough, Adult. Prescriptions for dexamethasone 2 mg Oral tablet - take 1 tablet by ORAL route 3 times per day; 15 tablet, Pepcid 20 mg Oral Tablet - take 1 tablet by ORAL route every 12 hours for 10 days; 20 tablet, Albuterol Sulfate 90 mcg/actuation - inhale 1-2 puff by INHALATION route every 4-6 hours; 1 Inhaler, Zithromax 500 mg Oral Tablet - take 1 tablet by ORAL route once daily for 4 days; 4 tablet. and Forms are Medication Reconciliation Form, Thank You Letter, Antibiotic Education, Prescription Opioid Use. Follow up: Private Physician; When: 2 - 3 days; Reason: Recheck today's complaints, Continuance of care, Re-evaluation by your physician. Follow up: Yash Verdugo; When: 2 - 3 days; Reason: Recheck today's complaints, Re-evaluation by your physician. Problem is new. Symptoms have improved. rosa
[2020-07-22 06:20] LABS: SARS-COV-2 RT PCR NEGATIVE (NEGATIVE)
--- NOTE | 2020-07-22 08:54 | RAD REPORT ---
EXAM DESCRIPTION: RAD - Chest Single View - 07/22/2020 3:37 am CLINICAL HISTORY: COUGH Chest pain. COMPARISON: Chest Pa And Lat (2 Views) dated 09/27/2017; Chest Single View dated 02/16/2016; CHEST PA A ND LAT 2 VIEW dated 01/23/2013; CHEST SINGLE VIEW dated 04/30/2012 FINDINGS: Portable technique limits examination quality. The lungs are grossly clear. The heart is normal in size. No displaced fractures. IMPRESSION: No acute intrathoracic process suspected.
--- NOTE | 2020-07-22 17:58 | RAD REPORT ---
EXAM DESCRIPTION: Chest For Pe Angio CLINICAL HISTORY: COUGH COMPARISON: None Available. TECHNIQUE: CTA of the chest obtained following the uncomplicated intravenous administration of iodin ated contrast.. 3-D/MIP reformatted images of the chest available for evaluation. FINDINGS: Chest: Pulmonary arteries: Contrast bolus is adequate.No filling defects identified in the pulmonary arterie s to suggest pulmonary embolus. Motion artifact. Thyroid: No abnormalities of the visualized thyroid. Great Vessels: Great vessels have normal anatomic configuration. Thoracic Aorta: No abnormalities of the thoracic aorta identified. Heart: No cardiomegaly, significant pericardial effusion, or coronary artery atherosclerosis Lymph Nodes: No enlarged mediastinal lymph nodes identified. Esophagus: No abnormalities of the esophagus identified. Other: No additional findings. Lungs: No confluent airspace consolidation. Minimal bilateral dependent atelectasis. The lung bases a re incompletely visualized on this study. Pleura: No pleural effusion or pneumothorax. Trachea/Airways: No abnormalities of the visualized trachea or airways. Bones: Mild degenerative endplate spondylosis. Upper Abdomen: Limited images of the upper abdomen demonstrate no definite abnormalities of visualize d portions of liver and spleen. IMPRESSION: 1. No pulmonary embolus. This exam was performed according to our departmental dose-optimization program, which includes autom ated exposure control, adjustment of the mA and/or kV according to patient size and/or use of iterati ve reconstruction technique. Electronically signed by: Zach Mckenna 07/22/2020 5:30 AM EXPERIENCE PLANNING STRATEGIST Due to temporary technical issues with the PACS/Fluency reporting system, reports are being signed by the in house radiologists without review as a courtesy to insure prompt reporting. The interpreting radiologist is fully responsible for the content of the report.
== END 2020-07-22 06:18 | disposition home or self-care (01) ==
LOC: ER 02:45
DX: J40 Bronchitis, not specified as acute or chronic (principal); Z20.822 Contact with and (suspected) exposure to COVID-19; J06.9 Acute upper respiratory infection, unspecified; R06.00 Dyspnea, unspecified; Z88.5 Allergy status to narcotic agent; Z88.6 Allergy status to analgesic agent; Z88.8 Allergy status to other drugs, medicaments and biological substances
CPT/HCPCS: 96365; 93005; 87040 ×2; 85025; 80048; 36415; 83735; 85610; 80076; 84484; 83880; 0240U; 71275; 71045; 96375; 99285; Q9967; J0456; J1100; J0696; J7050; J7040

== ENCOUNTER 2020-08-21 11:14 | Observation (INO) | payer BC ==
--- OUTSIDE RECORDS SUMMARY | 2020-08-21 11:17 | XMS REPORT | Continuity of Care Document ---
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, 152.4, cm, 01/15/20 15:04:00 [...] 02/25/ [facility] mL, 2019 Injection, IV Push, Once PRN for shivers, [...] dexamethasone 8 mg = 2 mL, Inactive I Injection, 2019 IV, Once, [...] 02/25/ [facility] mL IV Start Injection, 2019 [[facility]] Subcutaneous, Once PRN for other (see comment), [...] 02/17/ [facility] mcg (0.025 mg) tabs, Oral, 2020 oral tablet Daily, 0 Refill(s), hypothyroid rizatriptan 5 mg 5 mg = 1 Active 02/17/ [facility] oral tablet tabs, Oral, 2020 Daily, 0 Refill(s) pantoprazole 40 40 mg = 1 Active 02/17/ [facility] mg oral delayed tabs, Oral, 2020 release tablet Daily, 0 Refill(s), GERD meloxicam 7.5 MG 7.5 mg = 1 Active 02/17/ [facility] Oral Tablet tabs, Oral, 2020 Daily, 0 Refill(s), joint pain amitriptyline 75 = 1 tab, PO, Active 01/14/ Mi carrie mg oral tablet Bedtime, # 30 2019 [place] ro ea, 5 Refill(s), Pharmacy: [facility], 152.4, cm, 01/15/20 15:04:00 CDT, Height, 115.455, kg, 01/15/20 15:04:00 CDT, Weight rizatriptan 5 MG 5 mg = 1 tab, Active ischer Oral Tablet PO, ONCE, PRN 2019 Neuro [Maxalt] for migraine headache, # 9 tab, 1 Refill(s), Pharmacy: [facility], 152.4, cm, 01/15/20 15:04:00 CDT, Height, 115.455, kg, 01/15/20 15:04:00 CDT, Weight rizatriptan 5 MG 5 mg = 1 tab, Active ischer Oral Tablet PO, ONCE, PRN 2019 Neuro [Maxalt] for migraine headache, # 9 tab, 1 Refill(s), Pharmacy: [facility] amitriptyline 75 = 1 tab, PO, Active carrie mg oral tablet Bedtime, 2019 [place] ro ea, 1 Refill(s), Pharmacy: [facility] amitriptyline 75 75 mg = 1 Active 03/06/ Misch er mg oral tablet tab, PO, 2018 Neuro Bedtime, # 30 tab, 1 Refill(s), Pharmacy: [facility] rizatriptan 5 MG 5 mg = 1 tab, Active ischer Oral Tablet PO, ONCE, PRN 2018 Neuro [Maxalt] for migraine headache, # 9 tab, 1 Refill(s), Pharmacy: [facility] thiamine 100 mg 100 mg = 1 Active 02/14/ Misch er oral tablet tab, PO, 2019 Neuro Daily, X 30 day, # 30 tab, 3 Refill(s), Pharmacy: [facility] cyanocobalamin 1,000 Active 02/14/ [facility] 1000 mcg microgram = 1 2019 Neuro sublingual tablet tab, SL, Daily, # 30 tab, 2 Refill(s), Pharmacy: [facility] amitriptyline 50 50 mg = 1 Active 02/14/ Misch er mg oral tablet tab, PO, 2019 Neuro Bedtime, # 30 tab, 1 Refill(s), Pharmacy: [facility] rizatriptan 5 MG 5 mg = 1 tab, No Longer 01/25/ [facility] Oral Tablet PO, Daily, Active 2019 Neuro [Maxalt] PRN for migraine headache, X 6 day, # 6 tab, 1 Refill(s), Pharmacy: [facility] amitriptyline 50 50 mg = 1 No Longer 01/25/ Mis benji mg oral tablet tab, PO, Active 2019 Neuro Bedtime, # 30 tab, 1 Refill(s), Pharmacy: [facility] frovatriptan 2.5 2.5 mg = 1 No Longer 01/09/ Mi carrie mg oral tablet tab, PO, Active 2019 Neuro Daily, PRN for migraine headache, May repeat another dose at least 2 hours after the first dose, X 3 day, # 9 tab, 2 Refill(s), Pharmacy: [facility] eletriptan 40 MG See No Longer 01/07/ Misch er Oral Tablet Instructions, Active 2018 Neuro [Relpax] PO, Take 1-2 tabs orally at onset of migraine, may repeat dose once in 2 hours, X 3 day, # 6 tab, 1 Refill(s), Pharmacy: [facility] amitriptyline 25 25 mg = 1 Active 12/24/ Misch er mg oral tablet tab, PO, 2019 Neuro Bedtime, # 30 tab, 3 Refill(s), Pharmacy: [facility] cyanocobalamin 1,000 Active Mischer 1000 mcg microgram = 1 2019 Neuro sublingual tablet tab, SL, Daily, # 30 tab, 2 Refill(s), Pharmacy: [facility] thiamine 100 mg 100 mg = 1 Active 11/29/ Misch er oral tablet tab, PO, 2019 Neuro Daily, X 30 day, # 30 tab, 3 Refill(s), Pharmacy: [facility] amitriptyline 10 10 mg = 1 Active 11/22/ Misch er mg oral tablet tab, PO, 2019 Neuro Bedtime, # 30 tab, 3 Refill(s), Pharmacy: [facility] gabapentin 300 MG 300 mg = 1 Active 11/22/ Mis benji Oral Capsule cap, PO, BID, 2019 Neuro # 90 cap, 1 Refill(s) cyclobenzaprine 10 mg = 1 Inactive 11/22/ Misch er 10 mg oral tablet tab, PO, TID, 2018 Neuro PRN for spasms, # 30 tab, [...] values reflect the clinical guidelines
of the [employer]. LABORATORY BUN 12 7 - [...] /2020 LABORATORY eGFR 92 02/17 Result [facility] /2019 Comment: The eGFR is calculated using the [...] - 0.5 02/17 LABORATORY Results Reported 02/17 (02/18/20 12:38 PM) Pathology Reports No Data [...] 02/14/2019 [facility] Respitory Rate 16 02/14/2019 [facility] Heart Rate 83 02/14/2019 [facility] Systolic (mm Hg) 123 02/14/2019 [facility] [place] ro Diastolic (mm Hg) 90 02/14/2019 [facility] Ne uro BMI [facility] 43.62 [facility]182 [facility] Height 157.48 cm 12/24/[facility] Systolic (mm Hg) 134 12/24/2018 [facility] [place] ro Diastolic (mm Hg) 99 12/24/[facility] Respitory Rate 16 12/24/2018 [facility] Neuro Heart Rate 112 12/24/2018 [facility] Neuro Height 152.4 cm 12/20/2018 [facility] Neuro BMI Calculated 46.58 12/20/[facility] Weight 108.182 12/20/2018 [facility] Systolic (mm Hg) 117 12/20/2018 [facility] [place] ro Diastolic (mm Hg) 82 12/20/2018 [facility] Ne uro Heart Rate 104 12/20/2018 [facility] Neuro Respitory Rate 16 12/20/2018 [facility] Systolic (mm Hg) 117 11/22/2018 [facility] [place] ro Diastolic (mm Hg) 90 11/22/2018 [facility] Ne uro Respitory Rate 16 11/22/2018 [facility] Neuro Height 157.48 cm 11/22/2018 [facility] Neuro Weight 106.364 11/22/2018 [facility] Neuro BMI Calculated 42.89 11/22/2018 [facility] Neuro Heart Rate 96 11/22/2018 [facility] Neuro Encounters Location Location Encounter Encounter Reason Attending ADM TX Stat Source Details Type Number For Provider Date Date Visit Outpatient [id number] [facility] 11/22 [facility] [place] [facility] Outpatient [id number] Malcom 11/22 11/23 [facility] Neurology [facility] /2018 Neuro [place] Outpatient [id number] Malcom 12/20 [facility] [place] [facility] Outpatient [id number] Malcom 12/20 12/21 [facility] [place] Outpatient [id number] [facility] [facility]24 [facility] [id number] [place] 12/24 12/25 [facility] [place] Outpatient [id number] [place] 02/14 Active [facility] [place] [facility] Outpatient [id number] Mal[place] 02/14 02/15 [facility] [place] Outpatient [id number] [place] 05/23 Active [facility] Ambulatory [id number] [place] 05/23 05/23 [facility] [place] Outpatient [id number] [place] 12/01 [facility] [place] [facility] [id number] [place] 12/01 12/02 [facility] /2019 [facility] [place] Outpatient [id number] [place] 01/14 [facility] [place] [facility] [id number] [place] 01/14 [facility] [place] [facility] [id number] [place] 01/14 01/14 [facility] Pre[facility] [place] /2019 Neuro [place] [facility] Outpatient [id number] [place] 01/14 01/15 [facility] [place] /2019 [facility] [place] [facility] Outpatient [id number] [place] 02/25 02/25 Active [facility] [place] /2019 [facility] Outpatient [id number] [place] 02/25 02/25 CUSTODIAL I [place] /[address] [facility] Outpatient [id number] [place] 06/01 [facility] [place] [facility] Amb[facility] [id number] [place] 06/01 06/01 [facility] Pre[facility] [place] /2019 Neuro [place] Outpatient [id number] [place] 09/06 Active [facility] [place] Procedures Procedure Code Date Perfomer Comments Source APPLICATION SHORT auto-populated CUSTODIAL I LEG SPLINT-CALF TO 0 from FOOT 18434 documented (Left)<sup>1</sup> surgical case ARTHROSCOPY ANKLE auto-populated CUSTODIAL I W/EXCISION OF 0 from OSTEOCHONDRAL documented DEFECT OF TALUS surgical case AND/OR TIBIA 44206 (Left)<sup>2</s up> OPEN REDUCTION auto-populated [facility] INTERNAL FIXATION 0 from TALUS FRACTURE documented 18417 surgical case (Left)<sup>3</sup> Breast reduction, [id number] [facility] bilateral Bunionectomy [id number] [facility] Carpal tunnel [id number] [facility] syndrome of right wrist Plantar fasciitis [id number] [facility] of left foot Assessment and Plan [...]
--- OUTSIDE RECORDS SUMMARY | 2020-08-21 11:18 | XMS REPORT | Continuity of Care Document ---
:1975 Author Organization [facility] t Address [address] [place] [address] Care Team Providers Name Role Phone MARKEL [...] nondisplac nondisplac it y of ed ed [place] fracture fracture Physic i of dome of of dome of an s left talus left talus with with routine routine healing, healing, subsequent subsequent encounter encounter Right calf Right calf Problem Active U nivers pain pain ity of [place] Phys[facility] Pain of Pain of Problem Active Univers left calf left calf ity of [place] Physici ans Edema, Edema, Problem Active Univers lower lower [place] of extremity extremity [place] Plantar Plantar Problem Active Univers fasciitis fasciitis ity of [place] Physici ans Left ankle Left ankle Problem Active U nivers pain pain ity of [place] Physici ans Asthma Problem Active 2020-06-03 Memor ia (disorder) 23:04:35 l Asthma Luca (disorder) Active Problem 06/03/2020 [facility] Gastritis Problem Active 2020-06-03 Me moria (disorder) 23:04:35 l Holly Gastritis (disorder) Active Problem 06/03/2020 [facility] [...] Memor ia reflux 04:01:02 l (finding) Acid Holly reflux (finding) Active Problem 02/28/2020 [facility] Allergy [...] dome 8-13 04:01:02 04:01:02 l fracture 17:00: Holly of left Nondisplac 00 talus, ed dome initial fracture encounter of left for closed talus, fracture initial encounter for closed fracture 0 02/28/2020 [facility] Allergies, Adverse Reactions, Alerts Allergy Allergy Status Severity Reaction(s) Onset Inactive Treating Comm ents Source Name Type Date Date Clinician aspirin Allergy Active Univers to drug ity of (finding [place] ) Physici ans codeine Allergy Active Univers to drug ity of (finding [place] ) Physici ans aspirin aspirin Active Memoria l Luca Topamax Topamax Active Memoria l Luca codeine codeine Active Memoria sulfate sulfate l Holly Social History Smoking Status Start Date Stop Date Source Social History [facility] Luca Medications Ordered Filled Start Stop Current Ordering Indication Dosage Frequency Signature Comments Components Source Medication Medication Date Date Medication? Clinician (SIG) Name Name rizatriptan Yes 5 mg = 1 Me moria 5 MG Oral 9-15 tab, PO, l Tablet 22:44: ONCE, PRN Burak n [Maxalt] for migraine headache, # 9 tab, 1 Refill(s), Pharmacy: [facility], 152.4, cm, 01/15/20 15:04:00 [...] e 8-13 0.5 mL, l 15:20: Injection, Luca 00 IM, Once PRN for vomiting, first dose 02/26/20 10:20:00 CDT fentaNYL 2020-0 No 25 mcg = Memor ia 8-13 0.5 mL, l 14:50: Injection, Holly 00 IV, Once, first dose 02/26/20 9:50:00 [...] Mem oria 8-13 mL, l 12:53: Injection, Holly 00 IV, Once, first dose 02/26/20 7:53:00 CDT, stop date 02/26/20 7:53:00 CDT lidocaine 2020-0 No 100 mg = 5 Me moria 8-13 mL, l 12:41: Injection, Holly 00 IV, Once, first dose 02/26/20 7:41:00 CDT, stop date 02/26/20 7:41:00 CDT propofol 2020-0 No 200 mg = Memor ia 8-13 20 mL, l 12:41: Emulsion, Luca 00 IV, Once, first dose 02/26/20 7:41:00 CDT, stop date 02/26/20 7:41:00 CDT fentaNYL 2020-0 No 50 mcg = 1 Mem oria 8-13 mL, l 12:35: Injection, Holly 00 IV, Once, first dose 02/26/20 7:35:00 CDT, stop date 02/26/20 7:35:00 CDT midazolam 2020-0 No 1 mg = 1 Lev trupti 8-13 mL, l 12:34: Injection, Holly 00 IV, Once, first dose 02/26/20 7:34:00 CDT, stop date 02/26/20 7:34:00 CDT midazolam 2020-0 No 1 mg = 1 Lev trupti 8-13 mL, l 12:26: Injection, Holly 00 IV, Once, first dose 02/26/20 7:26:00 CDT, stop date 02/26/20 7:26:00 CDT fentaNYL 2020-0 No 50 mcg = 1 Mem oria 8-13 mL, l 12:25: Injection, Luca 00 IV, Once, first dose 02/26/20 7:25:00 CDT, stop date 02/26/20 7:25:00 CDT Cefazolin 2020-0 No 2 gm, Memoria 8-13 Soln-IV, l 12:00: IV Holly 00 Piggyback, Once, infuse over 30 minutes, [...] l IV Start 11:28: Subcutaneo Her paulino [[facility]] 00 us, Once PRN for other (see comment), first dose 02/26/20 6:28:00 CDT Allergy 2020-0 Yes mg, Oral, Memor ia Relief 8-05 Daily, 0 l 17:06: Refill(s) Tylenol PM 2020-0 Yes Oral, qHS, M emoria 8-05 0 l 17:05: Refill(s), Holly 00 sleep /pain amitriptyli 2020-0 Yes 75 [...] mg 8-05 tabs, l oral 17:04: Oral, Holly delayed 00 Daily, 0 release Refill(s), tablet GERD meloxicam 2020-0 Yes 7.5 mg = 1 Me moria 7.5 MG Oral 8-05 tabs, l Tablet 17:04: Oral, Daily, 0 Refill(s), joint pain amitriptyli 2020-0 Yes = 1 tab, Me moria ne 75 mg 7-02 PO, l oral tablet 20:24: Bedtime, # Luca 00 30 ea, 5 Refill(s), Pharmacy: [facility], 152.4, cm, 01/15/20 15:04:00 CDT, Height, 115.455, kg, 01/15/20 15:04:00 CDT, Weight rizatriptan 2020-0 Yes 5 mg = 1 Me moria 5 MG Oral 7-02 tab, PO, l Tablet 20:24: ONCE, PRN Burak n [Maxalt] 00 for migraine headache, # 9 tab, 1 Refill(s), Pharmacy: [facility], 152.4, cm, 01/15/20 15:04:00 CDT, Height, 115.455, kg, 01/15/20 15:04:00 CDT, Weight rizatriptan 2019-0 Yes 5 mg = 1 Me moria 5 MG Oral 5-19 tab, PO, l Tablet 21:06: ONCE, PRN Burak n [Maxalt] 00 for migraine headache, # 9 tab, 1 Refill(s), Pharmacy: [facility] amitriptyli 2019-0 Yes = 1 tab, Me moria ne 75 mg 5-19 PO, l oral tablet 21:06: Bedtime, # Luca 00 30 ea, 1 Refill(s), Pharmacy: [facility] amitriptyli 2018- Yes 75 mg = 1 M emoria ne 75 mg 8-22 tab, PO, l oral tablet 18:27: Bedtime, # Luca 00 30 tab, 1 Refill(s), Pharmacy: [facility] rizatriptan 2018-0 Yes 5 mg = 1 Me moria 5 MG Oral 8-02 tab, PO, l Tablet 20:24: ONCE, PRN Burak n [Maxalt] 09 for migraine headache, # 9 tab, 1 Refill(s), Pharmacy: [facility] thiamine 2018- Yes 100 mg = 1 Mem oria 100 mg oral 8-02 tab, PO, l tablet 20:23: Daily, X Holly 17 30 day, # 30 tab, 3 Refill(s), Pharmacy: [facility] cyanocobala 2018- Yes 1,000 Memor ia min 1000 8-02 microgram l mcg 20:23: = 1 tab, Holly sublingual 13 SL, Daily, tablet # 30 tab, 2 Refill(s), Pharmacy: [facility] amitriptyli 2018-0 Yes 50 mg = 1 M emoria ne 50 mg 8-02 tab, PO, l oral tablet 20:23: Bedtime, # Luca 09 30 tab, 1 Refill(s), Pharmacy: [facility] rizatriptan No 5 mg = 1 Me moria 5 MG Oral 7-13 tab, PO, l Tablet 01:53: Daily, PRN Antonia nn [Maxalt] 00 for migraine headache, X 6 day, # 6 tab, 1 Refill(s), Pharmacy: [facility] amitriptyli No 50 mg = 1 M emoria ne 50 mg 7-13 tab, PO, l oral tablet 01:53: Bedtime, # Holly 00 30 tab, 1 Refill(s), Pharmacy: [facility] frovatripta No 2.5 mg = 1 Memoria n 2.5 mg 6-27 tab, PO, l oral tablet 15:37: Daily, PRN Holly 00 for migraine headache, May repeat another dose at least 2 hours after the first dose, X 3 day, # 9 tab, 2 Refill(s), Pharmacy: [facility] eletriptan No See Memoria 40 MG Oral 6-25 Instructio l Tablet 23:35: ns, PO, Luca [Relpax] 00 Take 1-2 tabs orally at onset of migraine, may repeat dose once in 2 hours, X 3 day, # 6 tab, 1 Refill(s), Pharmacy: [facility] amitriptyli Yes 25 mg = 1 M emoria ne 25 mg 6-11 tab, PO, l oral tablet 21:16: Bedtime, # Holly 00 30 tab, 3 Refill(s), Pharmacy: [facility] cyanocobala Yes 1,000 Memor ia min 1000 6-07 microgram l mcg 19:39: = 1 tab, Holly sublingual 00 SL, Daily, tablet # 30 tab, 2 Refill(s), Pharmacy: [facility] thiamine Yes 100 mg = 1 Mem oria 100 mg oral 5-17 tab, PO, l tablet 18:13: Daily, X Holly 00 30 day, # 30 tab, 3 Refill(s), Pharmacy: [facility] amitriptyli Yes 10 mg = 1 M emoria ne 10 mg 5-10 tab, PO, l oral tablet 20:44: Bedtime, # Holly 00 30 tab, 3 Refill(s), Pharmacy: [facility] gabapentin 2019- Yes 300 [...] ne Sodium ity o f TABS TABS [place] Physici [facility] Meloxicam Meloxicam Yes M.D. Unive rs TABS TABS ity of [place] Physici ans Amitriptyli Amitriptyli Yes M.D. U nivers ne HCl TABS ne HCl TABS i ty of [place] Physici ans Vital Signs Vital Name Observation Time Observation Value Comments Source Respitory Rate 2020-02-26 16:32:00 Memori al Luca Systolic (mm Hg) 2020-02-26 16:32:00 Lev rial Holly Diastolic (mm Hg) 2020-02-26 16:32:00 Mem orial Luca Heart Rate 2020-02-26 16:00:00 [facility] [place] Respitory Rate 2020-02-26 16:00:00 Memori al Luca Systolic (mm Hg) 2020-02-26 16:00:00 Lev rial Luac Diastolic (mm Hg) 2020-02-26 16:00:00 Mem orial Holly Heart Rate 2020-02-26 15:50:00 [facility] [place] Respitory Rate 2020-02-26 15:50:00 Memori al Holly Systolic (mm Hg) 2020-02-26 15:50:00 Lev rial Luca Diastolic (mm Hg) 2020-02-26 15:50:00 Mem orial Holly Heart Rate 2020-02-26 15:40:00 [facility] Holly Temperature Oral (F) 2020-02-26 15:20:00 37.0 Sole [facility] Luca Temperature Oral (F) 2020-02-26 11:25:00 37.2 Sole [facility] [place]a Height 2020-02-26 11:25:00 158 cm [facility] Holly Height 2020-02-18 16:59:00 158 cm [facility] Holly Systolic blood 2020-02-02 14:39:00 134 mm[Hg] Univer sity of pressure [place] Physician s Diastolic blood 2020-02-02 14:39:00 64 mm[Hg] Unive rsity of pressure [place] Physician s Body height 2020-02-02 14:39:00 63 [in_us] Universi ty of [place] Physician s Weight 2020-02-02 14:39:00 147 [lb_av] Universi ty [facility] Physician s Body mass index 2020-02-02 14:39:00 26.04 kg/m2 Unive rsity of (BMI) [Ratio] [place] [facility] Heart Rate 2020-02-02 14:39:00 74 /min Universi ty [facility] Physician s Systolic (mm Hg) 2020-01-15 20:04:00 Lev rial Holly Diastolic (mm Hg) 2020-01-15 20:04:00 Mem orial Holly Heart Rate 2020-01-15 20:04:00 [facility] Luca Respitory Rate 2020-01-15 20:04:00 Memori al Luca Height 2020-01-15 20:04:00 152.4 cm Memorial Luca Weight 2020-01-15 20:04:00 [facility] Luca BMI Calculated 2020-01-15 20:04:00 Memori al Luca Systolic (mm Hg) 2019-12-02 20:40:00 Lev rial Holly Diastolic (mm Hg) 2019-12-02 20:40:00 Mem orial Luca Heart Rate 2019-12-02 20:40:00 [facility] Holly Respitory Rate 2019-12-02 20:40:00 Memori al Holly Height 2019-12-02 20:40:00 152.4 cm [facility] Luca Weight 2019-12-02 20:40:00 [facility] Holly BMI Calculated 2019-12-02 20:40:00 Memori al Luca Weight 2019-02-14 19:40:00 [facility] Luca BMI Calculated 2019-02-14 19:40:00 Memori al Luca Height 2019-02-14 19:40:00 160.02 cm [facility] Luca Respitory Rate 2019-02-14 19:40:00 Memori al Holly Heart Rate 2019-02-14 19:40:00 [facility] Holly Systolic (mm Hg) 2019-02-14 19:40:00 Lev rial Luca Diastolic (mm Hg) 2019-02-14 19:40:00 Mem orial Luca BMI Calculated 2018-12-24 20:38:00 Memori al Luca Weight 2018-12-24 20:38:00 [facility] Holly Height 2018-12-24 20:38:00 157.48 cm [facility] Luca Systolic (mm Hg) 2018-12-24 20:38:00 Lev rial Luca Diastolic (mm Hg) 2018-12-24 20:38:00 Mem orial Luca Respitory Rate 2018-12-24 20:38:00 Memori al Holly Heart Rate 2018-12-24 20:38:00 [facility] Holly Height 2018-12-20 19:20:00 152.4 cm [facility] Holly BMI Calculated 2018-12-20 19:20:00 Memori al Holly Weight 2018-12-20 19:20:00 [facility] Holly Systolic (mm Hg) 2018-12-20 19:20:00 Lev rial Luca Diastolic (mm Hg) 2018-12-20 19:20:00 Mem orial Luca Heart Rate 2018-12-20 19:20:00 [facility] Holly Respitory Rate 2018-12-20 19:20:00 Memori al Holly Systolic (mm Hg) 2018-11-22 19:23:00 Lev rial Luca Diastolic (mm Hg) 2018-11-22 19:23:00 Mem orial Luca Respitory Rate 2018-11-22 19:23:00 Memori al Holly Height 2018-11-22 19:23:00 157.48 cm [facility] Holly Weight 2018-11-22 19:23:00 [facility] Luca BMI Calculated 2018-11-22 19:23:00 Carissa Redman Heart Rate 2018-11-22 19:23:[address] 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 Carpal tunnel syndrome [facility] of right wrist Plantar fasciitis of [facility] left foot Plan of Care Planned Activity Planned Date Details Comments Source Diagnostic Test 2020-02-02 [UTP] Ortho - [facility] Pending 00:00:00 Surgery Scheduling Physician s [code = [UTP] Ortho - Surgery Scheduling] Encounters Start End Encounter Admission Attending Care Care Encounter Source Date/Time Date/Time Type Type Clinicians Facility Department ID 2020-07-02 2020-07-02 Appointmen NEAL JEAN BAPTISTE Orthopedics [id number] Univers 14:30:00 14:30:00 t; RAJI JEAN BAPTISTE, - Sugar ity vito ALEGRIA DPM [address] DPM Physici ans 2020-06-01 2020-06-01 [id number] 14:00:00 14:00:00 Malcom 08 Santos 2020-05-31 2020-05-31 [facility] [id number] Univers 10:00:00 10:00:00 t; RAJI JEAN BAPTISTE, - Sugar ity of RAJI, DPM [address] [place] DPM Physici ans 2020-05-10 2020-05-10 [facility] [id number] Univers 09:00:00 09:00:00 t; RAJI JEAN BAPTISTE, - Sugar ity of RAJI, DPM [place] [address] [place] DPM Physici ans 2020-04-27 2020-04-27 [facility] [id number] Univers 14:45:00 14:45:00 t; RAJI JEAN BAPTISTE, - Sugar ity of RAJI, DPM [place] [address] [place] DPM Physici ans 2020-03-29 2020-[facility] [id number] Univers 13:00:00 13:00:00 t; RAJI JEAN BAPTISTE, - [place] ity of RAJI, DPM [place] [address] [place] DPM Physici ans 2020-03-08 2020-03-[facility] [id number] Univers 11:15:00 11:15:00 t; RAJI JEAN BAPTISTE, - [place]y of [place]I, DPM [place] [address] [place] DPM Physici ans 2020-02-26 2020-02-26 Outpatient Markel, [id number] 05:46:09 11:30:00 Raji 8 2020-02-26 2020-02-[facility] [id number] Univers 10:30:00 10:30:00 t; RAJI JEAN BAPTISTE, - [place] ity of RAJI, DPM [place] [address] [place] DPM Physici ans 2020-02-02 2020-02-02 [facility] [id number] Univers 10:45:00 10:45:00 t; RAJI JEAN BAPTISTE, - [place] ity of [place]JI, DPM [place] [address] [place] DPM Physici ans 2020-01-15 2020-01-15 Outpatient VIRGILIO Espinal [id number] 15:00:00 23:59:59 Malcom 07 Santos 2020-01-15 2020-01-15 Outpatient VIPUL EspinalSCHER MHMISCHER [id number] 15:00:00 15:00:00 Malcom Santos 2019-12-02 2019-12-02 Outpatient VIPUL EspinalSCHER VIPULSCHER [id number] 15:30:00 23:59:59 Malcom Santos 2019-05-23 2019-05-23 Outpatient VIPUL EspinalSCHER VIPULSCHER [id number] 13:15:00 13:15:00 Malcom Santos 2019-03-23 2019-03-23 Emergency Harish, [facility] [id number] 12:37:57 13:11:00 Palomo Guy [id number] [place] [id number] [place] [id number] 2019-03-23 2019-03-23 Orders Doctor SPENSER [id number] 00:00:00 00:00:00 Only Unassigned, MARIA ELENA [id number] [place] [id number] 2019-02-14 2019-02-14 Outpatient VIPUL EspinalSCHER VIPULSCHER [id number] 15:00:00 23:59:59 Malcom 02 Santos 2018-12-24 2018-12-24 Outpatient VIPUL EspinalSCHER MHMISCHER [id number] 15:15:00 23:59:59 Malcom 03 Santos 2018-12-20 2018-12-20 Outpatient VIPUL EspinalSCHER MHMISCHER [id number] 13:45:00 23:59:59 Malcom Santos 2018-11-22 2018-11-22 Outpatient DIMA EspinalMISCHER MHMISCHER [id number] 14:45:00 23:59:59 Malcom 00 [facility] Results Test Description Test Time Test Comments Results Result [facility] LABORATORY 2020-02-18 89 [facility] 17:38:00 Holly LABORATORY 2020-02-18 12 [facility] 17:38:00 [facility] 2020-02-18 0.79 [facility] 17:38:00 Holly LABORATORY 2020-02-18 141 [facility] 17:38:00 Holly LABORATORY 2020-02-18 4.5 [facility] 17:38:00 Luca LABORATORY 2020-02-18 108 [facility] 17:38:00 Holly LABORATORY 2020-02-18 24 [facility] 17:38:00 Luca LABORATORY 2020-02-18 13.5 Memorial 17:38:00 Luca LABORATORY 2020-02-18 9.5 Memorial 17:38:00 Holly LABORATORY 2020-02-18 92 [facility] 17:38:00 Luca LABORATORY 2020-02-18 Reported Memorial 17:38:00 (02/18/20 12:38 Luca PM) LABORATORY 2020-02-18 6.4 Memorial 17:38:00 Luca LABORATORY 2020-02-18 4.37 Memorial 17:38:00 Luca LABORATORY 2020-02-18 12.7 Memorial 17:38:00 Luca LABORATORY 2020-02-18 38.3 Memorial 17:38:00 Luca LABORATORY 2020-02-18 87.5 [facility] 17:38:00 Holly LABORATORY 2020-02-18 17:38:00 Test Item Value Reference Range Interpretation Comme nts MCH (test code = MCH) 29.2 pg 27.0-31.0 [facility] [id number] 17:38:[facility].3[facility] 2020-02-18 17:38:0014.2[facility] [id number] 17:38:38507Kmwiwqrf EjjneduHTFTWSWDOR0921-94-54 17:38:008.3[facility]orial PeqqqfrJRDTAYLRNR0312-65-44 17:38:000.1[facility] [id number] 17:38:00Reported (02/18/20 12:38 PM)[facility] TejovtcUQVMPKXWTB7062-67-48 17:38:0062.2[facility] 2020-02-18 17:38:006.8[facility] UozvuqcCBEMETMOUZ5863-17-89 17:38:0026.9[facility]orial SvhrvwcCRVMRHEFXK0365-26-94 17:38:003.6[facility]orial NzvpjxyNMWHGKCCRR1062-56-12 17:38:000.5[facility]orial LffdnxyIUJQNKQKBO3593-33-76 17:38:004.0[facility] Holly MHDJQIUZYQ3454-42-75 17:38:001.7[facility]orial FtqixawSDLQHVBEDV9427-87-61 17:38:000.4 Memorial MpfkmvtWTMSMGPQIA3791-92-95 17:38:000.2[facility] 2020-02-18 17:38:00Reported (02/18/20 12:38 PM)[facility]
--- OUTSIDE RECORDS SUMMARY | 2020-08-21 11:21 | XMS REPORT | Summary of Care ---
:1975 Author Name RAJI JEAN BAPTISTE DPM Address Unavailable Unavailable , Care Team Providers Name Role Phone ALYSSA STORY, SUKHJINDER Castillo Unavailable Unavailable MARKEL [...] history Status: Resolved Procedures Procedure Dates Details MR Ankle wo contrast [id number] Date: 02-Jul-2020 History of Breast reduction Completed [...]
[2020-08-21 12:02] LABS: Absolute Lymphocytes (CBC) 2.6 K/uL (0.7-4.9); Basophils % 0.7 % (0-1.3); Hematocrit 38.5 % (36.0-45.0); Lymphocytes % 31.6 % (15.3-44.8); MPV 8.5 fL (7.6-11.3); RBC Red Blood Cell Count 4.44 M/uL (3.86-4.86)
--- NOTE | 2020-08-21 12:20 | RAD REPORT ---
EXAM DESCRIPTION: US - Abdomen Exam Limited - 08/21/2020 12:05 pm CLINICAL HISTORY: eval for cholecystitis;Abd pain COMPARISON: Abdomen Pelvis W Contrast dated 06/28/2017 FINDINGS: Gallbladder size is normal. There are multiple sub centimeter size gallstones layering in the dependent portion of the gallbladder. There is no wall thickening or pericholecystic fluid. No common duct stone or biliary tree dilatation identified. IMPRESSION: Multi stone cholelithiasis without acute gallbladder wall finding or pericholecystic flu id. No duct stone or biliary tree dilatation.
[2020-08-21 12:35] LABS: Albumin 3.8 g/dL (3.4-5.0); Bilirubin Direct 0.1 mg/dL (0-0.2); Bilirubin Total 0.5 mg/dL (0.2-1.0); Potassium 3.3 mmol/L (3.5-5.1); Protein, Total 8.1 g/dL (6.4-8.2)
--- NOTE | 2020-08-21 13:00 | ER ---
Nurse's Notes [facility] Name: Trudi Villavicencio Age: 45 yrs Sex: Female : 1975 Arrival Date: 08/21/2020 Time: 11:16 Bed 5 Private MD: Diagnosis: Cholelithiasis;Cholecystitis, unspecified Presentation: 08/21 11:27 Chief complaint: Patient states: RUQ pain , intermittent for a few days, worse iw yesterday, worse after eating , has hx of gallbladder issues, has seen Dr. Ospina and Dr. Centeno. Coronavirus screen: At this time, the client does not indicate any symptoms associated with coronavirus-19. Ebola Screen: Patient negative for fever greater than or equal to 101.5 degrees Fahrenheit, and additional compatible Ebola Virus Disease symptoms Patient denies exposure to infectious person. Patient denies travel to an Ebola-affected area in the 21 days before illness onset. No symptoms or risks identified at this time. Initial Sepsis Screen: Does the patient meet any 2 criteria? No. Patient's initial sepsis screen is negative. Does the patient have a suspected source of infection? No. Patient's initial sepsis screen is negative. Risk Assessment: Do you want to hurt yourself or someone else? Patient reports no desire to harm self or others. Onset of symptoms was August 18, 2020. 11:27 Method Of Arrival: Ambulatory iw 11:27 Acuity: HOWIE 3 iw Triage Assessment: 11:40 General: Appears distressed, uncomfortable, Behavior is cooperative, appropriate for bp age, anxious. Pain: Complains of pain in right upper quadrant. EENT: No deficits noted. Neuro: No deficits noted. Cardiovascular: No deficits noted. Respiratory: No deficits noted. GI: Reports upper abdominal pain. : No signs and/or symptoms were reported regarding the genitourinary system. Derm: No deficits noted. Musculoskeletal: No deficits noted. 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 - Social history:: Smoking status: Patient denies any tobacco usage or history of. - Family history:: not pertinent. - Hospitalizations: : No recent hospitalization is reported. Screenin:41 Abuse screen: Denies threats or abuse. Denies injuries from another. Nutritional bp screening: No deficits noted. Tuberculosis screening: No symptoms or risk factors identified. Fall Risk None identified. Assessment: 11:41 General: SEE TRIAGE NOTE. bp 13:00 Reassessment: No changes from previously documented assessment. Patient and/or family bp updated on plan of care and expected duration. Pain level reassessed. Patient is alert, oriented x 3, equal unlabored respirations, skin warm/dry/pink. ADMIT INITIATED. 15:00 Reassessment: No changes from previously documented assessment. Patient and/or family bp updated on plan of care and expected duration. Pain level reassessed. Patient is alert, oriented x 3, equal unlabored respirations, skin warm/dry/pink. 16:00 GI: Bowel sounds present X 4 quads. Abd is soft X 4 quads. bp 16:34 Reassessment: ADMIT COMPLETE. REPORT TO SLIME SOLARES FOR RM 210. bp Vital Signs: 11:32 BP 122 / 86; Pulse 118; Resp 18 S; Temp 98.6; Pulse Ox 100% on R/A; Weight 117.48 kg; iw Height 5 ft. 3 in. (160.02 cm); 13:00 BP 127 / 79; Pulse 99; Resp 16; Pulse Ox 99% ; bp 15:00 BP 122 / 85; Pulse 97; Resp 19; Pulse Ox 99% ; bp 16:30 BP 132 / 89; Pulse 100; Resp 16; Temp 98.9; Pulse Ox 100% ; bp 11:32 Body Mass Index 45.88 (117.48 kg, 160.02 cm) iw ED Course: 11:16 Patient arrived in ED. ag5 11:20 April, Leland, RN is Primary Nurse. bp 11:21 Jacinto Thomas MD is Attending Physician. rn 11:28 Triage completed. iw 11:28 Arm band placed on. iw 11:41 Patient has correct armband on for positive identification. Bed in low position. Call bp light in reach. Side rails up X2. 11:47 Initial lab(s) drawn, by me, sent to lab. Inserted saline lock: 20 gauge in right jl7 antecubital area, using aseptic technique. Blood collected. 12:05 US Abdomen Limited In Process Unspecified. EDMS 12:06 Ultrasound completed. Patient tolerated well. Notified ED Physician . sg3 12:59 Lauri Thomas MD is Hospitalizing Provider. rn 16:35 No provider procedures requiring assistance completed. Patient admitted, IV remains in bp place. Administered Medications: 13:00 Drug: Demerol 25 mg Route: IVP; Site: right antecubital; bp 16:37 Follow up: Response: Pain is decreased bp 13:00 Drug: Zofran (Ondansetron) 4 mg Route: IVP; Site: right antecubital; bp 16:36 Follow up: Response: No adverse reaction bp Outcome: 12:59 Decision to Hospitalize by Provider. rn 16:35 Admitted to Med/surg accompanied by tech, via wheelchair, room 210, with chart, Report bp called to [facility] 16:35 Condition: stable 16:35 Instructed on the need for admit. 16:58 Patient left the ED. bp Signatures: Dispatcher [employer] EDMS Kellee Tran, BECK SOLARES Jacinto Thomas MD MD rn Leal, Jahala, RN RN jl7 Peltier, Brian, RN Tarah Martinah sg3 Nghia Zheng 5
--- NOTE | 2020-08-21 13:00 | EDPHYS ---
Physician Documentation [facility] Name: Trudi Villavicencio Age: 45 yrs Sex: Female : 1975 Arrival Date: 08/21/2020 Time: 11:16 Bed 5 Private MD: ED Physician Jacinto Thomas HPI: 08/21 12:46 This 45 yrs old Female presents to ER via Ambulatory with complaints of rn Abdominal Pain. 12:46 The patient presents with abdominal pain in the right upper quadrant. Onset: The rn symptoms/episode began/occurred today. The symptoms do not radiate. Associated signs and symptoms: Pertinent positives: nausea, Pertinent negatives: chest pain, constipation, fever. 12:52 The symptoms are described as intermittent, sharp. Modifying factors: The symptoms are rn alleviated by nothing, the symptoms are aggravated by food, touching the area. Severity of pain: At its worst the pain was moderate in the emergency department the pain has improved. The patient has experienced similar episodes in the past. Reports pain, RUQ, worse when eating, has had before but now happening each time she eats, + nausea, no vomiting, no fever. Pain lasting hours now. . DELIVERY TECH: 11:34 LMP 08/04/2020 iw Historical: - Allergies: 11:32 Aspirin; iw 11:32 Codeine; iw 11:32 Topamax; iw 11:32 tramadol; iw - Home Meds: 11:32 Amitriptyline 30 mg tab Oral 1 tab nightly [Active]; Diphenhydramine Oral [Active]; iw hydrochlorothiazide 25 mg Oral tab 1 tab once daily [Active]; levothyroxine 25 mcg tab 1 tab once daily [Active]; pantoprazole 40 mg Oral TbEC 1 tab once daily [Active]; - PMHx: 11:32 Asthma; bleeding ulcer; Degenerative disc disease; DGD; enlarged aorta; erosive iw gastritis; Fibromyalgia; Herniated disc; herniated disk; neuropathy; - Immunization history:: Adult Immunizations unknown. - Social history:: Smoking status: Patient denies any tobacco usage or history of. - Family history:: not pertinent. - Hospitalizations: : No recent hospitalization is reported. ROS: 12:52 Constitutional: Negative for fever, chills, and weight loss, Eyes: Negative for injury, rn pain, redness, and discharge, Cardiovascular: Negative for chest pain, palpitations, and edema, Respiratory: Negative for shortness of breath, cough, wheezing, and pleuritic chest pain, Abdomen/GI: + abd pain and nausea Back: Negative for injury and pain, : Negative for injury, bleeding, discharge, and swelling, MS/Extremity: Negative for injury and deformity, Skin: Negative for injury, rash, and discoloration, Neuro: Negative for headache, weakness, numbness, tingling, and seizure. Exam: 12:55 Constitutional: This is a well developed, well nourished patient who is awake, crying rn Head/Face: Normocephalic, atraumatic. ENT: MMM Cardiovascular: Tachycardic, regular Respiratory: No increased work of breathing, no retractions or nasal flaring. Abdomen/GI: soft, + RUQ tenderness, no rebound Skin: Warm, dry MS/ Extremity: Pulses equal, no cyanosis. Neuro: Awake and alert, GCS 15 Vital Signs: 11:32 BP 122 / 86; Pulse 118; Resp 18 S; Temp 98.6; Pulse Ox 100% on R/A; Weight 117.48 kg; iw Height 5 ft. 3 in. (160.02 cm); 13:00 BP 127 / 79; Pulse 99; Resp 16; Pulse Ox 99% ; bp 15:00 BP 122 / 85; Pulse 97; Resp 19; Pulse Ox 99% ; bp 16:30 BP 132 / 89; Pulse 100; Resp 16; Temp 98.9; Pulse Ox 100% ; bp 11:32 Body Mass Index 45.88 (117.48 kg, 160.02 cm) iw MDM: 11:21 Patient medically screened. rn 12:55 Differential diagnosis: cholecystitis, Cholelithiasis, gastritis, gastroesophageal rn reflux disease, non-specific abd pain, pancreatitis, Peptic Ulcer Disease. Data reviewed: vital signs, nurses notes, lab test result(s), radiologic studies, ultrasound, and as a result, I will admit patient. Counseling: I had a detailed discussion with the patient and/or guardian regarding: the historical points, exam findings, and any diagnostic results supporting the discharge/admit diagnosis, lab results, radiology results, the need for further work-up and treatment in the hospital. Response to treatment: the patient's symptoms have mildly improved after treatment, and as a result, I will admit patient. Admission orders: after a detailed discussion of the patient's condition and case, the admit orders are written by me. ED course: Symptomatic cholelithiasis, possibly early cholecystitis, persistent pain, will admit to Dr. Thomas, consulted with Dr. Rodriguez, planning on surgery.. 08/21 11:30 Order name: Basic Metabolic Panel; Complete Time: 12:46 rn 08/21 11:30 Order name: CBC with Diff; Complete Time: 12:35 rn 08/21 11:30 Order name: Hepatic Function; Complete Time: 12:46 rn 08/21 11:30 Order name: Lipase; Complete Time: 12:46 rn 08/21 11:30 Order name: US Abdomen Limited; Complete Time: 12:35 rn 08/21 11:30 Order name: IV Saline Lock; Complete Time: 11:47 rn 08/21 11:30 Order name: Labs collected and sent; Complete Time: 11:47 rn 08/21 12:55 Order name: NPO; Complete Time: 13:01 rn 08/21 13:32 Order name: CONS Physician Consult EDMS Administered Medications: 13:00 Drug: Demerol 25 mg Route: IVP; Site: right antecubital; bp 16:37 Follow up: Response: Pain is decreased bp 13:00 Drug: Zofran (Ondansetron) 4 mg Route: IVP; Site: right antecubital; bp 16:36 Follow up: Response: No adverse reaction bp Disposition: 08/21/20 12:59 Hospitalization ordered by Lauri Thomas for Inpatient Admission. Preliminary diagnosis are Cholelithiasis, Cholecystitis, unspecified. - Bed requested for Telemetry/MedSurg (Inpatient). - Status is Inpatient Admission. bp - Condition is Stable. - Problem is new. - Symptoms have improved. Signatures: Dispatcher [employer] EDMS Kellee Tran RN RN iw Nieto, Roman, MD MD rn Peltier, Brian, RN RN bp Botello, Elizabeth eb Corrections: (The following items were deleted from the chart) 15:08 12:59 Hospitalization Ordered by Lauri Thomas MD for Inpatient Admission. Preliminary eb diagnosis is Cholelithiasis; Cholecystitis, unspecified. Bed requested for Telemetry/MedSurg (Inpatient). Status is Inpatient Admission. Condition is Stable. Problem is new. Symptoms have improved. rn 16:58 15:08 08/21/2020 12:59 Hospitalization Ordered by Lauri Thomas MD for Inpatient bp Admission. Preliminary diagnosis is Cholelithiasis; Cholecystitis, unspecified. Bed requested for Telemetry/MedSurg (Inpatient). Status is Inpatient Admission. Condition is Stable. Problem is new. Symptoms have improved. eb
[2020-08-21] MEDS ORDERED: ONDANSETRON 4 MG/2 ML VIAL ONE (13:16)
[2020-08-21] MEDS ORDERED: MEPERIDINE HCL 25 MG/ML SYR ONE (13:17)
--- NOTE | 2020-08-21 13:48 | P.HP ---
Certification for Inpatient Patient admitted to: Observation With expected LOS: <2 Midnights Practitioner: I am a practitioner with admitting privileges, knowledge of patient current condition, hospital course, and medical plan of care. Services: Services provided to patient in accordance with Admission requirements found in Title 42 Section 412.3 of the Code of Federal Regulations Patient History Date of Service: 08/21/20 Reason for admission: Symptomatic Cholelithiasis History of Present Illness: 45yo F, PMH: Erosive gastritis, gluten intolerance, migraines, hypothyroid come fibromyalgia, herniated disk, degenerative disk disease, neuropathy who presents to ED due to continued and worsening right upper quadrant pain. She states this pain has been intermittent for the past several days significantly worse since yesterday. The pain is worse with/after eating. She has been taking her gastritis medications with no significant relief. She says this pain is little bit different than her typical indigestion pain. She states this pain is more in her right upper quadrant as well as her upper mid abdomen. Associated with nausea, and dry heaving. No emesis. She denies fevers/chills, no diarrhea, no recent illness, no rashes/lesions. She reports both parents, and brother have all had their gallbladder removed. In the ED, RUQ U/S notable for cholelithiasis. Labwork rather unremarkable except for some mild hypokalemia. She was tachycardic in the 110s, afebrile. Allergies aspirin Allergy (Unknown, Verified 04/30/12 21:02) UNKNOWN codeine [Codeine] Allergy (Unknown, Verified 04/30/12 21:02) UNKNOWN topiramate [From Topamax] Allergy (Unverified 02/16/16 22:38) Unknown tramadol Allergy (Unverified 01/07/15 20:34) Upset stomach - Past Medical/Surgical History -: Erosive gastritis -: Gluten intolerance -: Migraine -: Fibromyalgia -: Herniated disk -: Degenerative disk disease -: Neuropathy Past Surgical History: Patient denies surgical history Psychosocial/ Personal History: Lives home alone, works at [employer] as a [employer] - Family History Father -: Other (see notes) (Cholecystectomy) Mother -: Other (see notes) (Cholecystectomy) Brother -: Other (see notes) (Cholecystectomy) - Social History Smoking Status: Never smoker Alcohol use: No Place of Residence: Home Review of Systems 10-point ROS is otherwise unremarkable Physical Examination - Studies Laboratory Data (last 24 hrs) 08/21/20 11:45: WBC 8.30, Hgb 12.8, Hct 38.5, Plt Count 484 H 08/21/20 11:45: Sodium 140, Potassium 3.3 L, BUN 10, Creatinine 0.94, Glucose 104, Total Bilirubin 0.5, AST 9 L, ALT 25, Alkaline Phosphatase 81, Lipase 145 Assessment and Plan - Advance Directives Does patient have a Living Will: No Does patient have a Durable POA for Healthcare: No Physician Review Additional Text: Physical exam Gen: NAD, AAOx3 HEENT: PERRL, normal conjunctiva, sclera anicteric CV: Sinus tachycardia ~100, no murmur/rub Pulm: CTAB, nonlabored on RA Abd: soft, moderate-severe TTP in RUQ and epigastrium, no rebound Ext: 1+ bilateral edema to knees Neuro: 5/5 str bilateral upper/lower extremities, AAOx3 Problem list RUQ abdominal pain secondary to cholelithiasis, concern for acute cholecystitis Erosive gastritis Gluten intolerance Migraine Fibromyalgia Hypothyroidism Degenerative disk disease. Herniated disk Neuropathy -concern for developing cholecystitis, also with ongoing symptoms intermittently for several months and intractable nausea at this time -likely needs cholecystectomy, general surgery consulted, recommended zofran perioperatively -CLD for now, Zofran, IVF, NPO after midnight -SCDs -allergy to codeine/tramadol is nausea/vomiting, she thinks she did ok with morphine in past, will have morphine PRN -continue pantoprazole -obtain rest of home medications and restart as appropriate VTE: SCDs Code: full Dispo: anticipate dc home in 24-48hrs after surgery Time Spent Managing Pts Care (In Minutes): 60
[2020-08-21] MEDS: PIPER/TAZO/NS 3.375gm 3.375 GM/100 ML BAG IVPB SCH (18:03)
[2020-08-21] MEDS ORDERED: MORPHINE 2 MG/ML SYR IV PRN (18:03)
[2020-08-21] MEDS: PANTOPRAZOLE 40MG TABLET PO SCH ×2 (18:03→21:14)
[2020-08-21] MEDS ORDERED: ONDANSETRON 4 MG/2 ML VIAL IV PRN (18:03)
[2020-08-21] MEDS: NA CHLORIDE 0.9% 1,000 ML IV SCH (18:25)
[2020-08-21 19:28] VITALS: BMI 45.8
[2020-08-21] MEDS ORDERED: POTASSIUM CL SA 10 MEQ TAB PO ONE (21:00)
[2020-08-21] MEDS ORDERED: PIPER/TAZO/NS 3.375gm 6.750 GM/200 ML BAG ONE (21:20)
[2020-08-22 05:13] LABS: Absolute Lymphocytes (CBC) 2.1 K/uL (0.7-4.9); Basophils % 0.7 % (0-1.3); Hematocrit 37.2 % (36.0-45.0); Lymphocytes % 28.1 % (15.3-44.8); MPV 8.4 fL (7.6-11.3); RBC Red Blood Cell Count 4.25 M/uL (3.86-4.86)
[2020-08-22] MEDS ORDERED: PIPER/TAZO/NS 3.375gm 3.375 GM/100 ML BAG ONE (05:28)
[2020-08-22 05:47] LABS: Albumin 3.4 g/dL (3.4-5.0); Bilirubin Total 0.9 mg/dL (0.2-1.0); Magnesium 2.3 mg/dL (1.8-2.4); Phosphorus 2.7 mg/dL (2.5-4.9); Potassium 3.8 mmol/L (3.5-5.1); Protein, Total 6.9 g/dL (6.4-8.2)
[2020-08-22] MEDS: PIPER/TAZO/NS 3.375gm 3.375 GM/100 ML BAG IVPB SCH ×4 (06:00→17:18)
[2020-08-22] MEDS ORDERED: POTASSIUM 25 MEQ EFFERV TAB PO ONE (06:52)
[2020-08-22] MEDS: NA CHLORIDE 0.9% 1,000 ML IV SCH ×2 (07:23→14:14)
[2020-08-22] MEDS: PANTOPRAZOLE 40MG TABLET PO SCH ×2 (07:30→15:37)
[2020-08-22] MEDS ORDERED: Ringers Lactate 1,000 ML IV ONE (08:36)
[2020-08-22] MEDS ORDERED: GLYCOPYRROLATE 0.2 MG/ML SYR ONE (08:57)
[2020-08-22] MEDS ORDERED: LIDOCAINE 1% MPF 5 ML VIAL ONE (08:57)
[2020-08-22] MEDS ORDERED: FENTANYL CITR 100 MCG/2 ML ONE (08:57)
[2020-08-22] MEDS ORDERED: propofoL 200 MG/20 ML VIAL IV ONE (08:57)
[2020-08-22] MEDS ORDERED: MIDAZOLAM HCL 2 MG/2 ML INJ ONE (08:57)
[2020-08-22] MEDS ORDERED: NEOSTIGMINE 1 MG/ML -5 ML ONE (08:58)
[2020-08-22] MEDS ORDERED: KETOROLAC 30 MG/ML INJ ONE ×2 (08:59→09:38)
[2020-08-22] MEDS ORDERED: ONDANSETRON 4 MG/2 ML VIAL ONE (08:59)
[2020-08-22] MEDS ORDERED: ROCURONIUM 50 MG/5 ML VIAL IV ONE (08:59)
--- NOTE | 2020-08-22 10:27 | P.BOP ---
Preoperative diagnosis: Acute cholecysititis, symptomatic cholelithiasis Postoperative diagnosis: same Primary procedure: Laparoscopic cholecystectomy Estimated blood loss: <10cc Specimen: gb Findings: as above Anesthesia: General Complications: None Transferred to: Recovery Room Condition: Good
[2020-08-22] MEDS ORDERED: PROMETHAZINE INJ 25 MG/ML AMP ONE (10:45)
--- NOTE | 2020-08-22 10:56 | CON ---
Date of Consultation: 08/22/2020 Diagnoses: Right upper quadrant pain, acute cholecystitis, symptomatic cholelithiasis. History Of Present Illness: This is the case of a 45-year-old patient, who comes to us with epigastr ic right upper quadrant pain, radiating to the back, associated with nausea and vomiting. The patien t came to the ER, but after spending time in the ER, the pain did not relieve, so the patient had to be admitted and a surgical consult was obtained for cholecystectomy. The patient has been having thi s pain on and off for several weeks, but yesterday got worse to the point that she has to come to the ER. She denies any dysuria, hematuria, hematochezia, melena. Denies any recent traveling out of [facility] country. Denies any family member sick at home. The patient stated that she had an EGD done more than 6 months ago and as per the patient, she claims she does have gastritis, but no ulcers. Allergies: INCLUDE ASPIRIN, TOPAMAX. SHE LISTS CODEINE AND TRAMADOL ALLERGIES, BUT SHE CLAIMED R IGHT NOW IT IS NOT REALLY AN ALLERGY. SHE JUST GOT UPSET STOMACH AND SOME NAUSEA EVERY NOW AND THEN, BUT SHE IS OKAY WITH CODEINE, TRAMADOL AND NARCOTICS. Past Medical History: Asthma, erosive gastritis, fibromyalgia. Social History: She does not smoke. She does not drink alcohol. Family History: Noncontributory. Review of Systems: See H and P, otherwise unremarkable. Physical Examination: General: The patient is awake, alert. HEENT: Pupils are equal and reactive. Anicteric. Neck: Supple. Chest: Clear. Abdomen: Epigastric right upper quadrant pain with Hayward sign positive. Breasts: Deferred. Rectal: Deferred. Pelvic: Deferred. Extremities: Good capillary refill. Laboratory Data: Blood work shows WBC count of 8, hemoglobin of 12, platelets 484. Potassium 3.3, t otal bilirubin of 0.5. Abdomen ultrasound interpreted by Dr. Farmer as multi-stone cholelithiasis. Assessment: It is a 45-year-old patient with Hayward sign positive and right upper quadrant pain, int ractable, has not improved. She has gallstones. She wants surgery to be done and she was offered la paroscopic, possible open cholecystectomy with benefits, alternatives, and risks including, but not l imited to infection, bleeding, damage to adjacent structures, anesthesia complication, choledocholith iasis, bile leak, pancreatitis, CO, and even . She also understands this may not relieve any sy mptoms. She might need more than one surgical intervention. She also understands the importance of losing weight. She is morbidly obese. ZEYNEP/SAGRARIO Voice ID: [id number] Report ID: [id number]
--- NOTE | 2020-08-22 11:35 | OP ---
Date of Procedure: 08/22/2020 Surgeon: Yasmani Rodriguez MD Central Supply Technician Supervisor: None. Preoperative Diagnoses: Acute cholecystitis, symptomatic cholelithiasis, morbid obesity. Postoperative Diagnoses: Acute cholecystitis, symptomatic cholelithiasis, morbid obesity. Procedure: Laparoscopic cholecystectomy. Estimated Blood Loss: Less than 10 mL. Specimen: Gallbladder. Indications: This is the case of a female, who comes to us with acute abdominal pain, intractable ri ght upper quadrant abdominal pain, diagnosed with acute cholecystitis, symptomatic cholelithiasis. B enefits, alternatives, and risks of laparoscopic possible open cholecystectomy were fully explained, which include, but not limited to infection, bleeding, damage to adjacent structures, anesthesia comp lication, choledocholithiasis, bile leak, pancreatitis, WI, and even . She also understands thi s may not relieve any symptoms. She might need more than one surgical intervention. She understood, signed the consent. Procedure In Detail: The patient was brought to the operating room and placed in supine position. A nesthesia was done without complication. Abdominal area was prepped and draped in usual sterile fash ion. Marcaine 0.5% was injected for local anesthetic followed by sharp incision of the skin in the i nfraumbilical region. Incision was carried down to fascia, which was opened under direct vision. Pe ritoneum was encountered, opened under direct vision. Vicryl #1 was placed inside the fascia. Hasso n trocar was carefully introduced. No bleeding was obtained. I placed 3 more trocars, 5 mm each one of them in the epigastric right upper quadrant area under direct visualization. This allowed me to put a grasper in the fundus of the gallbladder, another grasper in the infundibulum retracting the ga llbladder in the inferolateral fashion exposing the triangle of Calot and obtaining critical view. T he cystic duct and cystic artery were clearly isolated freed circumferentially and a connection betwe en those and the gallbladder were clearly identified. I proceeded to ligate those by using at least 3 clips proximal, 1 clip distal, ligation in middle. Same was done with the cystic artery. No bile leak. No bleeding. The gallbladder was removed from liver using Bovie cauterizer and removed from a bdominal cavity using EndoCatch through the umbilical incision. The area was inspected once again. No bile leak, no bleeding. At that moment, I proceeded to remove the trocars under direct vision. D eflated the pneumoperitoneum. Closed the fascia with #1 Vicryl. Irrigated the subcutaneous tissue a nd closed with 3-0 chromic and skin with oneil. Sponge count and instrument counts were correct. The patient tolerated the procedure well. The patient was sent to Recovery in stable condition. ZEYNEP/SAGRARIO Voice ID: [id number] Report ID: [id number]
[2020-08-22] MEDS ORDERED: POTASSIUM CL SA 10 MEQ TAB PO ONE (12:00)
--- NOTE | 2020-08-22 12:52 | P.PN ---
Subjective Date of Service: 08/22/20 Chief Complaint: Symptomatic Cholelithiasis Subjective: No new changes (feels about the same, had a few episodes of pain overnight - in RUQ, +chills. no vomiting, no diarrhea) Physical Examination - Vital Signs Temperature: 96.9 F Blood Pressure: 124/69 Pulse: 73 Respirations: 17 Pulse Ox (%): 99 Assessment & Plan Physician Review Additional Text: Physical exam Gen: NAD, AAOx3 HEENT: PERRL, normal conjunctiva, sclera anicteric CV: RRR, no murmur/rub Pulm: CTAB, nonlabored on RA Abd: soft, moderate-severe TTP in RUQ, no rebound Ext: 1+ bilateral edema to knees Problem list RUQ abdominal pain secondary to cholelithiasis, concern for acute cholecystitis Erosive gastritis Gluten intolerance Migraine Fibromyalgia Hypothyroidism Degenerative disk disease. Herniated disk Neuropathy -concern for developing cholecystitis -surgery consulted, for OR today -NPO this morning , IVF for surgery; continue zosyn per surgery recommendation -allergy to codeine/tramadol is nausea/vomiting, she thinks she did ok with morphine in past, will have morphine PRN -continue pantoprazole -patient did not know all her home meds, she will have family bring list VTE: SCDs Code: full Dispo: anticipate dc home in the next 24-48hrs pending findings in OR Time Spent Managing Pts Care (In Minutes): 35
[2020-08-22] MEDS: HYDROCODONE/APAP 5/325 MG TAB PO PRN (15:36)
--- NOTE | 2020-08-22 18:34 | RAD REPORT ---
EXAM DESCRIPTION: RAD - Chest Single View - 08/22/2020 6:07 pm CLINICAL HISTORY: hypoxia during surgery Chest pain. COMPARISON: Chest Single View dated 07/22/2020; Chest Pa And Lat (2 Views) dated 09/27/2017; Chest Sing le View dated 02/16/2016; CHEST PA AND LAT 2 VIEW dated 01/23/2013 FINDINGS: Portable technique limits examination quality. The lungs are grossly clear. The heart is normal in size. No displaced fractures. IMPRESSION: No acute intrathoracic process suspected.
[2020-08-23] MEDS: PIPER/TAZO/NS 3.375gm 3.375 GM/100 ML BAG IVPB SCH ×4 (00:09→17:00)
[2020-08-23] MEDS: HYDROCODONE/APAP 5/325 MG TAB PO PRN (04:25)
[2020-08-23] MEDS: NA CHLORIDE 0.9% 1,000 ML IV SCH ×2 (04:26→10:03)
[2020-08-23 05:51] LABS: Absolute Lymphocytes (CBC) 1.5 K/uL (0.7-4.9); Basophils % 0.4 % (0-1.3); Lymphocytes % 18.6 % (15.3-44.8); MPV 8.2 fL (7.6-11.3); RBC Red Blood Cell Count 3.55 M/uL (3.86-4.86)
[2020-08-23 06:05] LABS: Albumin 2.8 g/dL (3.4-5.0); Bilirubin Total 0.7 mg/dL (0.2-1.0); Magnesium 2.1 mg/dL (1.8-2.4); Potassium 3.9 mmol/L (3.5-5.1); Protein, Total 6.1 g/dL (6.4-8.2)
[2020-08-23] MEDS: PANTOPRAZOLE 40MG TABLET PO SCH ×2 (08:32→16:30)
[2020-08-23] MEDS ORDERED: POTASSIUM CL SA 10 MEQ TAB PO ONE ×2 (08:33→08:51)
--- NOTE | 2020-08-23 10:58 | PN ---
Diagnoses: Acute cholecystitis, symptomatic cholelithiasis, status post lap libra. Subjective: Doing well. No complaint. No nausea, no vomiting. No chest pain. No fever. Passing flatus. Objective: Chest: Clear. Abdomen: Soft and depressible. Extremities: Good capillary refill. Plan: From the surgical standpoint, she can be discharged home. Follow up in the office this Sunday . She is going to stay out of work this week and we are going to send her home on antibiotics and pa in medication. ZEYNEP/SAGRARIO Voice ID: [id number] Report ID: [id number]
[2020-08-23 17:45] VITALS: BP 115/56; TEMP 97.5
[2020-08-23 18:24] VITALS: O2SAT 99
--- NOTE | 2020-08-30 20:02 | P.DS ---
Admission Date: 08/21/20 Discharge Date: 08/23/20 Disposition: ROUTINE DISCHARGE Discharge Condition: GOOD Reason for Admission: Symptomatic Cholelithiasis, concern for acute cholecystitis Procedures: RUQ U/S (08/21): IMPRESSION: Multi stone cholelithiasis without acute gallbladder wall finding or pericholecystic fluid. No duct stone or biliary tree dilatation. Laparoscopic cholecystectomy (08/22): by Dr. Yasmani Rodriguez - noted acute c holecystitis Problem list RUQ abdominal pain secondary to acute on chronic cholecystitis Erosive gastritis Gluten intolerance Migraine Fibromyalgia Hypothyroidism Degenerative disk disease. Herniated disk Neuropathy Brief History of Present Illness: 45yo F, PMH: Erosive gastritis, gluten intolerance, migraines, hypothyroid come fibromyalgia, herniated disk, degenerative disk disease, neuropathy who presents to ED due to continued and worsening right upper quadrant pain. She states this pain has been intermittent for the past several days significantly worse since yesterday. The pain is worse with/after eating. She has been taking her gastritis medications with no significant relief. She says this pain is little bit different than her typical indigestion pain. She states this pain is more in her right upper quadrant as well as her upper mid abdomen. Associated with nausea, and dry heaving. No emesis. She denies fevers/chills, no diarrhea, no recent illness, no rashes/lesions. She reports both parents, and brother have all had their gallbladder removed. In the ED, RUQ U/S notable for cholelithiasis. Labwork rather unremarkable except for some mild hypokalemia. She was tachycardic in the 110s, afebrile. Hospital Course: Patient was admitted, general surgery was consulted, recommended laparoscopic cholecystectomy due to concern for acute cholecystitis. During the procedure, patient was noted to briefly become hypoxic at times, leading to pauses in the surgical procedure. Postoperatively the patient did well and there were no complications. Patient was discharged home with antibiotics, and to follow up with general surgery. Vital Signs/Physical Exam: Physical exam Gen: NAD, AAOx3 HEENT: PERRL, normal conjunctiva, sclera anicteric CV: Regular rate and rhythm, no murmur/rub Pulm: Clear to auscultation bilaterally, nonlabored on room air Abd: Mild tenderness / soreness reported with palpation in RUQ and near incision sites Ext: 1+ bilateral edema to knees Temp Pulse Resp BP Pulse Ox 97.5 F 94 H 16 115/56 L 97 08/23/20 16:00 08/23/20 16:00 08/23/20 16:00 08/23/20 16:00 08/23/20 16:00 Laboratory Data at Discharge: WBC 8.20 K/uL (4.3-10.9) 08/23/20 05:23 Hgb 10.5 g/dL (12.0-15.0) L 08/23/20 05:23 Hct 31.0 % (36.0-45.0) L D 08/23/20 05:23 Plt Count 419 K/uL (152-406) H 08/23/20 05:23 Sodium 140 mmol/L (136-145) 08/23/20 05:23 Potassium 3.9 mmol/L (3.5-5.1) 08/23/20 05:23 BUN 8 mg/dL (7-18) 08/23/20 05:23 Creatinine 0.75 mg/dL (0.55-1.3) 08/23/20 05:23 Glucose 98 mg/dL (74-106) 08/23/20 05:23 Phosphorus 2.7 mg/dL (2.5-4.9) 08/22/20 04:35 Magnesium 2.1 mg/dL (1.8-2.4) 08/23/20 05:23 Total Bilirubin 0.7 mg/dL (0.2-1.0) 08/23/20 05:23 AST 16 U/L (15-37) 08/23/20 05:23 ALT 27 U/L (12-78) 08/23/20 05:23 Alkaline Phosphatase 59 U/L (45-117) 08/23/20 05:23 Lipase 145 U/L (73-393) 08/21/20 11:45 Home Medications: Amitriptyline HCl 75 mg PO DAILY 08/22/20 Hydroxyzine HCl [Atarax] 10 mg PO DAILY 08/22/20 Pantoprazole [Protonix Tab*] 40 mg PO DAILY 08/22/20 Rizatriptan Benzoate [Rizatriptan] 5 mg PO DAILY PRN 08/22/20 Valsartan/Hydrochlorothiazide [Valsartan-Hctz 80-12.5 mg Tab] 1 each PO DAILY 08/22/20 Amoxicillin/Potassium Clav [Augmentin 875-125 Tablet] 1 each PO BID 7 Days #14 tablet 08/23/20 New Medications: Amoxicillin/Potassium Clav [Augmentin 875-125 Tablet] 1 each PO BID 7 Days #14 tablet Followup: Leland Tipton MD [Primary Care Provider] - Yasmani Rodriguez MD [ACTIVE - CAN ADMIT] - 1 Week Time spent managing pt's care (in minutes): 45
== END 2020-08-23 18:08 | disposition home or self-care (01) ==
LOC: ER 11:14 → ERHOLD 13:31 → 2ND 16:48
PROVIDERS: ADMIT Hospitalist; ATTEND Hospitalist
PROC: 0FT44ZZ Resection of Gallbladder, Percutaneous Endoscopic Approach (ICD-10-PCS; principal; 2020-08-22 10:00)
DX: K80.12 Calculus of gallbladder with acute and chronic cholecystitis without obstruction (principal); K29.60 Other gastritis without bleeding; Z20.822 Contact with and (suspected) exposure to COVID-19; G43.909 Migraine, unspecified, not intractable, without status migrainosus; M79.7 Fibromyalgia; E03.9 Hypothyroidism, unspecified; K90.41 Non-celiac gluten sensitivity; G62.9 Polyneuropathy, unspecified
CPT/HCPCS: 85025 ×3; 80048; 36415 ×2; 83735 ×2; 84100; 80076; 88304; 83690; 80053 ×2; 71045; 76705; 94010 ×2; 94760 ×5; 96375; 96374; 99285; 47562; U0003; J2704; J2550; J2250; J3010; J2543 ×4; J2270; J2175; J2710; J7120; J7030 ×3; J2405 ×2; G0378

== ENCOUNTER 2020-09-04 12:50 | Emergency (ER) | payer BC ==
--- OUTSIDE RECORDS SUMMARY | 2020-09-04 12:54 | XMS REPORT | Continuity of Care Document ---
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/2020 reports [facility] I (disorder) 77 reaction from [facility] Asthma (disorder) Active Problem 06/03/2020 [facility] Gastritis Active Problem 06/03/2020 [facility] (disorder) Neuro Hypertensive Active Problem 06/03/2020 M[facility] r disorder, systemic N euro arterial (disorder) Hypothyroidism Active Problem 06/03/2020 M[facility] her (disorder) Neuro,[facility] I Migraine Active Problem 06/03/2020 [facility] (disorder) Neuro,[facility] I Morbid obesity Active Problem 06/03/2020 Misc her (disorder) Neuro,[facility] I Thiamin deficiency Active Problem 06/03/2020 [facility] [...] # 9 tab, 1 Refill(s), Pharmacy: [facility], 152.4, cm, 01/15/20 15:04:00 CDT, [...] 02/25/ [facility] mL IV Start Injection, 2019 [[facility]] Subcutaneous, Once PRN for other (see [...] Lebron ro ea, 5 Refill(s), Pharmacy: [facility], 152.4, cm, 01/15/20 15:04:00 CDT, Height, 115.455, kg, 01/15/20 15:04:00 CDT, Weight rizatriptan 5 MG 5 mg = 1 tab, Active [facility] Oral Tablet PO, ONCE, PRN 2020 Neuro [Maxalt] for migraine headache, # 9 tab, 1 Refill(s), Pharmacy: [facility], 152.4, cm, 01/15/20 15:04:00 CDT, Height, 115.455, kg, 01/15/20 15:04:00 CDT, Weight rizatriptan 5 MG 5 mg = 1 tab, Active [facility] Oral Tablet PO, ONCE, PRN 2019 Neuro [Maxalt] for migraine headache, # 9 tab, 1 Refill(s), Pharmacy: [facility] amitriptyline 75 = 1 tab, PO, Active carrie mg oral tablet Bedtime, 2019 Lebron ro ea, 1 Refill(s), Pharmacy: [facility] amitriptyline 75 75 mg = 1 Active 03/06/ Misch er mg oral tablet tab, PO, 2018 Neuro Bedtime, # 30 tab, 1 Refill(s), Pharmacy: [facility] rizatriptan 5 MG 5 mg = 1 tab, Active ischer Oral Tablet PO, ONCE, PRN 2018 Neuro [Maxalt] for migraine headache, # 9 tab, 1 Refill(s), Pharmacy: [facility] thiamine 100 mg 100 mg = 1 Active 02/14/ Misch er oral tablet tab, PO, 2019 Neuro Daily, X 30 day, # 30 tab, 3 Refill(s), Pharmacy: [facility] cyanocobalamin 1,000 Active 02/14/ [facility] 1000 mcg microgram = 1 2019 Neuro sublingual tablet tab, SL, Daily, # 30 tab, 2 Refill(s), Pharmacy: [facility] amitriptyline 50 50 mg = 1 Active 02/14/ Misch er mg oral tablet tab, PO, 2019 Neuro Bedtime, # 30 tab, 1 Refill(s), Pharmacy: [facility] rizatriptan 5 MG 5 mg = 1 tab, No Longer 01/25/ [facility] Oral Tablet PO, Daily, Active 2019 Neuro [Maxalt] PRN for migraine headache, X 6 day, # 6 tab, 1 Refill(s), Pharmacy: [facility] amitriptyline 50 50 mg = 1 No Longer 01/25/ Mis benji mg oral tablet tab, PO, Active 2019 Neuro Bedtime, # 30 tab, 1 Refill(s), Pharmacy: [facility] frovatriptan 2.5 2.5 mg = 1 No Longer 01/09/ Mi carrie mg oral tablet tab, PO, Active 2019 Neuro Daily, PRN for migraine headache, May repeat another dose at least 2 hours after the first dose, X 3 day, # 9 tab, 2 Refill(s), Pharmacy: [facility] eletriptan 40 MG See No Longer 01/07/ Misch er Oral Tablet Instructions, Active 2018 Neuro [Relpax] PO, Take 1-2 tabs orally at onset of migraine, may repeat dose once in 2 hours, X 3 day, # 6 tab, 1 Refill(s), Pharmacy: [facility] amitriptyline 25 25 mg = 1 Active 12/24/ Misch er mg oral tablet tab, PO, 2019 Neuro Bedtime, # 30 tab, 3 Refill(s), Pharmacy: [facility] cyanocobalamin 1,000 Active [facility] 1000 mcg microgram = 1 2019 Neuro sublingual tablet tab, SL, Daily, # 30 tab, 2 Refill(s), Pharmacy: [facility] thiamine 100 mg 100 mg = 1 Active 11/29/ Misch er oral tablet tab, PO, 2019 Neuro Daily, X 30 day, # 30 tab, 3 Refill(s), Pharmacy: [facility] amitriptyline 10 10 mg = 1 Active 11/22/ Misch er mg oral tablet tab, PO, 2019 Neuro Bedtime, # 30 tab, 3 Refill(s), Pharmacy: [facility] gabapentin 300 MG 300 mg [...] values reflect the clinical guidelines
of the [place] [employer]. LABORATORY BUN 12 7 - [...] 12/02/2019 [facility] Respitory Rate 16 [facility]02[facility] 152.4 [facility]/02[facility]2019 [facility] Weight 107.727 12/02/2019 [facility] BMI Calculated 46.38 12/02/2019 [facility] Weight 108.182 02/14/2019 [facility] BMI Calculated 42.25 02/14/2019 [facility] Height 160.02 cm 02/14/2019 [facility] Respitory Rate 16 02/14/2019 [facility] Heart Rate 83 02/14/2019 [facility] Systolic (mm Hg) 123 02/14/2019 [facility] [place] ro Diastolic (mm Hg) 90 02/14/2019 [facility] uro BMI Calculated 43.62 12/24/2018 [facility] Weight 108.182 12/24/2018 [facility] Height 157.48 cm [facility]/24/[facility] Systolic (mm Hg) 134 12/24/2018 [facility] Lebron ro Diastolic (mm Hg) 99 12/24/2018 [facility] Respitory Rate 16 12[facility]24/2018 [facility] Heart Rate 112 12/24/2018 [facility] Height 152.4 cm 12/20/2018 [facility] BMI Calculated 46.58 12/20/2018 [facility] Weight 108.182 12/20/2018 [facility] Systolic (mm Hg) 117 12/20/2018 [facility] [place] ro Diastolic (mm Hg) 82 12/20/2018 [facility] Heart Rate 104 12/20/2018 [facility] Respitory Rate 16 12/20/2018 [facility] Systolic (mm Hg) 117 11/22/2018 [facility] [place] ro Diastolic (mm Hg) 90 11/22/2018 [facility] Respitory Rate 16 11/22/2018 [facility] Height 157.48 cm 11/22/2018 [facility] Weight 106.364 11/22/2018 [facility] BMI Calculated 42.89 11/22/2018 [facility] Heart Rate 96 11/22/2018 [facility] Encounters Location Location Encounter Encounter Reason Attending ADM CA Stat Source Details Type Number For Provider Date Date Visit Outpatient [id number] [place] 11/22 [facility] MNA Outpatient [id number] [place] 11/22 11/23 [facility] /2018 [facility] Outpatient [id number] [place] 12/20 [facility] MNA Outpatient [id number] [place] 12/20 12/21 [facility] /2018 Neuro [facility] Outpatient [id number] [facility] 12/24 [facility] [id number] [place] 12/24 12/25 [facility] Outpatient [id number] [place] 02/14 [facility] [id number] [place] 02/14 02/15 [facility] Outpatient [id number] [place] 05/23 Active [facility]a MNA Ambulatory [id number] Leland 05/23 05/23 [facility] [place] Outpatient [id number] [place] 12/01 [facility] Out[facility] [id number] Leland 12/01 12/02 [facility] [place] /2019 Neuro [place] Outpatient [id number] [place] 01/14 [facility] Outpatient [id number] [place] 01/14 [facility] [id number] Leland 01/14 01/14 [facility] /2019 Neuro [facility] MNA Outpatient [id number] Leland 01/14 01/15 [facility] /2019 [facility] Outpatient [id number] [place] 02/25 02/25 Active [facility] [place] [facility] Outpatient [id number] Chase 02/25 02/25 [facility] [place] /20192020 [facility] Outpatient [id number] [place] 06/01 Active [facility] Amb[facility] [id number] Leland 06/01 06/01 [facility] [place] /2019 Neuro [place] Outpatient [id number] Mal[place] 09/06 Active [facility] Procedures Procedure Code Date Perfomer Comments Source APPLICATION SHORT auto-populated [facility] I LEG SPLINT-CALF TO 0 from FOOT 13436 documented (Left)<sup>1</sup> surgical case ARTHROSCOPY ANKLE auto-populated [facility] I W/EXCISION OF 0 from OSTEOCHONDRAL documented DEFECT OF TALUS surgical case AND/OR TIBIA 01523 (Left)<sup>2</s up> OPEN REDUCTION auto-populated [facility] INTERNAL FIXATION 0 from TALUS FRACTURE documented 84357 surgical case (Left)<sup>3</sup> Breast reduction, [id number] [facility] bilateral Bunionectomy [id number] [facility] Carpal tunnel [id number] [facility] syndrome of right wrist Plantar fasciitis [id number] [facility] of left foot Assessment and Plan [...]
--- OUTSIDE RECORDS SUMMARY | 2020-09-04 12:55 | XMS REPORT | Continuity of Care Document ---
:1975 Author Organization [facility] t Address [address] [place] [address] Care Team Providers Name Role Phone MARKEL [...] Univers left calf left calf [place] of [place] [facility] Edema, Edema, Problem Active Univers lower lower [place] Plantar Plantar Problem Active Univers fasciitis fasciitis [place] [facility] Left ankle Left ankle Problem Active U nivers pain pain [place] of [place] Phys[facility] Asthma Problem Active 2020-06-03 Memor ia (disorder) 23:04:35 l Asthma [place] (disorder) Active Problem 06/03/2020 [facility] Gastritis Problem Active 2020-06-03 Me moria (disorder) 23:04:35 l [place] Gastritis (disorder) Active Problem 06/03/2020 [facility] Hypertensi Problem Active 2020-06-03 M emoria ve 23:04:35 l disorder, [place] systemic Hypertensi arterial ve (disorder) disorder, systemic [...] 2020-06-03 M emoria (finding) 23:04:35 l Ankle [place] pain (finding) Active Problem 06/03/2020 [facility] Acid Problem Active 2020-02-28 Memor ia reflux 04:01:02 l (finding) Acid [place] reflux (finding) Active Problem 02/28/2020 [facility] Allergy [...] [place] Neuropathy (disorder) Active Problem 02/28/2020 [facility] History of Past Illness Condition Condition Condition Status Onset Resolution Last Treating Co mments Source Name Details Category Date Date Treatment Clinician Date Nondisplac Problem 2019-2020-02-28 2020-02-28 Memoria ed dome 8-13 04:01:02 04:01:02 l fracture 17:00: [place] of left Nondisplac 00 talus, ed dome initial fracture encounter of left for closed talus, fracture initial encounter for closed fracture 0 02/28/2020 [facility] Allergies, Adverse Reactions, Alerts Allergy Allergy Status Severity Reaction(s) Onset Inactive Treating Comm ents Source Name Type Date Date Clinician codeine codeine Active Memoria l [place] aspirin aspirin Active Memoria l [place] Topamax Topamax Active Memoria l [place] aspirin Allergy Active Univers to drug ity of (finding [place] ) Physici ans codeine Allergy Active Univers to drug ity of (finding [place] ) Physici ans Social History Smoking Status Start Date Stop Date Source Social History [facility] Medications Ordered Filled Start Stop Current Ordering Indication Dosage Frequency Signature Comments Components Source Medication Medication Date Date Medication? Clinician (SIG) Name Name rizatriptan Yes 5 mg = 1 Me moria 5 MG Oral 9-15 tab, PO, l Tablet 22:44: ONCE, PRN Burak lozano [Maxalt] for migraine headache, # 9 tab, 1 Refill(s), Pharmacy: [facility], 152.4, cm, 01/15/20 [...] 2020-0 No 10 mL, Lev trupti Flush 8-13 Soln, IV l 15:20: Push, As Indicated PRN for flush, first dose 02/26/20 10:20:00 CDT Dilaudid 2020-0 No 0.5 mg = Memor ia 8-13 [...] mL, Soln, l Inhalant 15:20: NEB, Once mckenna PRN for wheezing, first dose 02/26/20 [...] Mem oria 8-13 mL, l 12:53: Injection, IV, Once, first dose 02/26/20 7:53:00 CDT, stop date 02/26/20 7:53:00 CDT lidocaine 2020-0 No 100 mg = 5 Me moria 8-13 mL, l 12:41: Injection, IV, Once, first dose 02/26/20 7:41:00 CDT, stop date 02/26/20 7:41:00 CDT propofol 2020-0 No 200 mg = Memor ia 8-13 20 mL, l 12:41: Emulsion, IV, Once, first dose 02/26/20 7:41:00 CDT, stop date 02/26/20 7:41:00 CDT fentaNYL 2020-0 No 50 mcg = 1 Mem oria 8-13 mL, l 12:35: Injection, IV, Once, first dose 02/26/20 7:35:00 CDT, stop date 02/26/20 7:35:00 CDT midazolam 2020-0 No 1 mg = 1 Lev trupti 8-13 mL, l 12:34: Injection, IV, Once, first dose 02/26/20 7:34:00 CDT, stop date 02/26/20 7:34:00 CDT midazolam 2020-0 No 1 mg = 1 Lev trupti 8-13 mL, l 12:26: Injection, IV, Once, first dose 02/26/20 7:26:00 CDT, stop date 02/26/20 7:26:00 CDT fentaNYL 2020-0 No 50 mcg = 1 Mem oria 8-13 mL, l 12:25: Injection, IV, Once, first dose 02/26/20 7:25:00 CDT, stop date 02/26/20 7:25:00 CDT Cefazolin 2020-0 No 2 gm, Memoria 8-13 Soln-IV, l 12:00: IV [place] 00 Piggyback, Once, infuse over 30 minutes, first dose 02/26/20 7:00:00 CDT, stop date 02/26/20 7:00:00 CDT, patient weight 50-120 kg, Prophylaxi s LR 1,000 mL 2020-0 No 1,000 mL, M emoria 8-13 IV, 30 l 11:28: mL/hr, start date 02/26/20 6:28:00 CDT, 2.14, m2 Lidocaine 2020-0 No 0.2 mL, Memor ia 2% 0.2 mL 8 Injection, l IV [facility] 11:28: [facility] 00 , Once PRN for other (see comment), first dose 02/26/20 6:28:00 CDT Allergy 2020-0 Yes mg, Oral, Memor ia Relief 8-05 Daily, 0 l 17:06: Refill(s) [place] 00 Tylenol PM 2020-0 Yes Oral, qHS, M emoria 8-05 0 l 17:05: Refill(s), [place] 00 sleep /pain amitriptyli 2020-0 Yes 75 mg = 1 M emoria ne 75 mg 8-05 tabs, l oral tablet 17:04: Oral, qHS, [place] 00 0 Refill(s), sleep levothyroxi 2020-0 Yes 25 [...] Oral 8-05 tabs, l Tablet 17:04: Oral, [place] 00 Daily, 0 Refill(s), joint pain amitriptyli 2020-0 Yes = 1 tab, Me moria ne 75 mg 7-02 PO, l oral tablet 20:24: Bedtime, # [place] 00 30 ea, 5 Refill(s), Pharmacy: [facility], 152.4, cm, 01/15/20 15:04:00 CDT, Height, 115.455, kg, 01/15/20 15:04:00 CDT, Weight rizatriptan 2020-0 Yes 5 mg = 1 Me moria 5 MG Oral 7-02 tab, PO, l Tablet 20:24: ONCE, PRN Burak n [Maxalt] 00 for migraine headache, # 9 tab, 1 Refill(s), Pharmacy: [facility], 152.4, cm, 01/15/20 15:04:00 CDT, Height, 115.455, kg, 01/15/20 15:04:00 CDT, Weight rizatriptan 2020-0 Yes 5 mg = 1 Me moria 5 MG Oral 5-19 tab, PO, l Tablet 21:06: ONCE, PRN Burak n [Maxalt] 00 for migraine headache, # 9 tab, 1 Refill(s), Pharmacy: [facility] amitriptyli 2019-0 Yes = 1 tab, Me moria ne 75 mg 5-19 PO, l oral tablet 21:06: Bedtime, # [place] 00 30 ea, 1 Refill(s), Pharmacy: [facility] amitriptyli Yes 75 mg = 1 M emoria ne 75 mg 8-22 tab, PO, l oral tablet 18:27: Bedtime, # [place] 00 30 tab, 1 Refill(s), Pharmacy: [facility] rizatriptan 2018-0 Yes 5 mg = 1 Me moria 5 MG Oral 8-02 tab, PO, l Tablet 20:24: ONCE, PRN Burak n [Maxalt] 09 for migraine headache, # 9 tab, 1 Refill(s), Pharmacy: [facility] thiamine Yes 100 mg = 1 Mem oria 100 mg oral 8-02 tab, PO, l tablet 20:23: Daily, X [place] 17 30 day, # 30 tab, 3 Refill(s), Pharmacy: [facility] cyanocobala 2018- Yes 1,000 Memor ia min 1000 8-02 microgram l mcg 20:23: = 1 tab, [place] sublingual 13 SL, Daily, tablet # 30 tab, 2 Refill(s), Pharmacy: [facility] amitriptyli Yes 50 mg = 1 M emoria ne 50 mg 8-02 tab, PO, l oral tablet 20:23: Bedtime, # [place] 09 30 tab, 1 Refill(s), Pharmacy: [facility] 8 rizatriptan No 5 mg = 1 Me moria 5 MG Oral 7-13 tab, PO, l Tablet 01:53: Daily, PRN Antonia nn [Maxalt] 00 for migraine headache, X 6 day, # 6 tab, 1 Refill(s), Pharmacy: [facility] amitriptyli No 50 mg = 1 M emoria ne 50 mg 7-13 tab, PO, l oral tablet 01:53: Bedtime, # [place] 00 30 tab, 1 Refill(s), Pharmacy: [facility] frovatripta No 2.5 mg = 1 Memoria n 2.5 mg 6-27 tab, PO, l oral tablet 15:37: Daily, PRN [place] 00 for migraine headache, May repeat another dose at least 2 hours after the first dose, X 3 day, # 9 tab, 2 Refill(s), Pharmacy: [facility] eletriptan No See Memoria 40 MG Oral 6-25 Instructio l Tablet 23:35: ns, PO, Luca [Relpax] 00 Take 1-2 tabs orally at onset of migraine, may repeat dose once in 2 hours, X 3 day, # 6 tab, 1 Refill(s), Pharmacy: [facility] amitriptyli Yes 25 mg = 1 M emoria ne 25 mg 6-11 tab, PO, l oral tablet 21:16: Bedtime, # [place] 00 30 tab, 3 Refill(s), Pharmacy: [facility] cyanocobala Yes 1,000 Memor ia min 1000 6-07 microgram l mcg 19:39: = 1 tab, [place] sublingual 00 SL, Daily, tablet # 30 tab, 2 Refill(s), Pharmacy: [facility] thiamine Yes 100 mg = 1 Mem oria 100 mg oral 5-17 tab, PO, l tablet 18:13: Daily, X [place] 00 30 day, # 30 tab, 3 Refill(s), Pharmacy: [facility] amitriptyli 2019- Yes 10 mg = 1 M emoria ne 10 mg 5-10 tab, PO, l oral tablet 20:44: Bedtime, # [place] 00 30 tab, 3 Refill(s), Pharmacy: [facility]08 gabapentin 2019- Yes 300 mg = 1 M emoria 300 MG Oral 5-10 cap, PO, l Capsule 20:28: BID, # 90 Antonia nn 00 cap, 1 Refill(s) cyclobenzap 2019- No 10 mg = 1 M emoria [...] ne Sodium ity o f TABS TABS [place] [facility] Meloxicam Meloxicam Yes M.D. Unive rs TABS TABS ity of [place] [facility] Amitriptyli Amitriptyli Yes M.D. U nivers ne HCl TABS ne HCl TABS i ty of [place] [facility] Vital Signs Vital Name Observation Time Observation Value Comments Source Respitory Rate 2020-02-26 16:32:00 Memori al [place] Systolic (mm Hg) 2020-02-26 16:32:00 Lev rial [place] Diastolic (mm Hg) 2020-02-26 16:32:00 [facility] [place] Heart Rate 2020-02-26 16:00:00 [facility] [place] Respitory Rate 2020-02-26 16:00:00 Memori al [place] Systolic (mm Hg) 2020-02-26 16:00:00 Lev rial [place] Diastolic (mm Hg) 2020-02-26 16:00:00 [facility] [place] Heart Rate 2020-02-26 15:50:00 [facility] [place] Respitory Rate 2020-02-26 15:50:00 Memori al [place] Systolic (mm Hg) 2020-02-26 15:50:00 Lev rial [place] Diastolic (mm Hg) 2020-02-26 15:50:00 Mem orial [place] Heart Rate 2020-02-26 15:40:00 [facility] [place] Temperature Oral (F) 2020-02-26 15:20:00 37.0 Sole [facility] [place] Temperature Oral (F) 2020-02-26 11:25:00 37.2 Sole [facility] [place] Height 2020-02-26 11:25:00 158 cm [facility] [place] Height 2020-02-18 16:59:00 158 cm [facility] [place] Systolic blood 2020-02-02 14:39:00 134 mm[Hg] Univer sity of pressure [place] Physician s Diastolic blood 2020-02-02 14:39:00 64 mm[Hg] Unive rsity of pressure [place] Physician s Body height 2020-02-02 14:39:00 63 [in_us] Universi ty [facility] Physician s Weight 2020-02-02 14:39:00 147 [lb_av] [facility] Physician s Body mass index 2020-02-02 14:39:00 26.04 kg/m2 Unive rsity of (BMI) [Ratio] [place] Phys[facility] ns Heart Rate 2020-02-02 14:39:00 74 /min [facility] Physician s Systolic (mm Hg) 2020-01-15 20:04:00 Lev rial [place] Diastolic (mm Hg) 2020-01-15 20:04:00 Mem orial [place] Heart Rate 2020-01-15 20:04:00 [facility] [place] Respitory Rate 2020-01-15 20:04:00 Memori al [place] Height 2020-01-15 20:04:00 152.4 cm [facility] [place] Weight 2020-01-15 20:04:00 [facility] [place] BMI Calculated 2020-01-15 20:04:00 Memori al [place] Systolic (mm Hg) 2019-12-02 20:40:00 Lev rial [place] Diastolic (mm Hg) 2019-12-02 20:40:00 Mem orial [place] Heart Rate 2019-12-02 20:40:00 [facility] [place] Respitory Rate 2019-12-02 20:40:00 Memori al [place] Height 2019-12-02 20:40:00 152.4 cm [facility] [place] Weight 2019-12-02 20:40:00 [facility] [place] BMI Calculated 2019-12-02 20:40:00 Memori al [place] Weight 2019-02-14 19:40:00 [facility] [place] BMI Calculated 2019-02-14 19:40:00 Memori al [place] Height 2019-02-14 19:40:00 160.02 cm [facility] [place] Respitory Rate 2019-02-14 19:40:00 Memori al [place] Heart Rate 2019-02-14 19:40:00 [facility] [place] Systolic (mm Hg) 2019-02-14 19:40:00 Lev rial [place] Diastolic (mm Hg) 2019-02-14 19:40:00 Mem orial [place] BMI Calculated 2018-12-24 20:38:00 Memori al [place] Weight 2018-12-24 20:38:00 [facility] [place] Height 2018-12-24 20:38:00 157.48 cm [facility] [place] Systolic (mm Hg) 2018-12-24 20:38:00 Lev rial [place] Diastolic (mm Hg) 2018-12-24 20:38:00 Mem orial [place] Respitory Rate 2018-12-24 20:38:00 Memori al [place] Heart Rate 2018-12-24 20:38:00 [facility] [place] Height 2018-12-20 19:20:00 152.4 cm [facility] [place] BMI Calculated 2018-12-20 19:20:00 Memori al [place] Weight 2018-12-20 19:20:00 [facility] [place] Systolic (mm Hg) 2018-12-20 19:20:00 Lev rial [place] Diastolic (mm Hg) 2018-12-20 19:20:00 Mem orial [place] Heart Rate 2018-12-20 19:20:00 [facility] [place] Respitory Rate 2018-12-20 19:20:00 Memori al [place] Systolic (mm Hg) 2018-11-22 19:23:00 Lev rial [place] Diastolic (mm Hg) 2018-11-22 19:23:00 Mem orial [place] Respitory Rate 2018-11-22 19:23:00 Memori al [place] Height 2018-11-22 19:23:00 157.48 cm [facility] [place] Weight 2018-11-22 19:23:00 [facility] BMI Calculated 2018-11-22 19:23:00 Carissa Redman Heart Rate 2018-11-22 19:23:00 [facility] Procedures Procedure Date / Time Performing Clinician Source Performed MR Ankle wo contrast 2020-07-02 00:00:00 [facility] [id number] Physicians [MMD] US Lower Extremity 2020-05-31 00:00:00 [facility] Venous Doppler Bilateral Physici ans Post Op Promis 29 Survey 2020-03-12 00:00:00 [facility] Physicians APPLICATION SHORT LEG 2020-02-26 13:13:00 Carissa Redman SPLINT-CALF TO FOOT 32385 (Left)<sup>1</sup> ARTHROSCOPY ANKLE 2020-02-26 13:13:00 [facility] Luis garcia 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 04239 (Left)<sup>2</sup> OPEN REDUCTION INTERNAL 2020-02-26 13:13:00 Lev rial [place] FIXATION TALUS FRACTURE 86184 (Left)<sup>3</sup> [L] 2019 2020-02-05 00:00:00 [place] [facility] [place] Coronavirus (COVID-19), Physicia ns MARK [UTP] Ortho - Surgery 2020-02-02 00:00:00 [facility] Scheduling Physicians History of Breast [facility] reduction Physicians History of Carpal tunnel Univers [facility] surgery Physicians Breast reduction, [facility] nn bilateral Bunionectomy [facility] Carpal tunnel syndrome [facility] of right wrist Plantar fasciitis of [facility] left foot Plan of Care Planned Activity Planned Date Details Comments Source Diagnostic Test 2020-02-02 [UTP] Ortho - [facility] Pending 00:00:00 Surgery Scheduling Physician s [code = [UTP] Ortho - Surgery Scheduling] Encounters Start End Encounter Admission Attending Care Care Encounter Source Date/Time Date/Time Type Type Clinicians Facility Department ID 2020-07-02 2020-07-02 Appointmen NEAL JEAN BAPTISTE Orthopedics [id number] Univers 14:30:00 14:30:00 t; RAJI JEAN BAPTISTE, - [place]y of [place] ALEGRIA [address] DPM Physici ans 2020-06-01 2020-06-01 [id number] 14:00:00 14:00:00 Malcom 08 Santos 2020-05-31 2020-05-[address] [id number] Univers 10:00:00 10:00:00 t; RAJI JEAN BAPTISTE, - [place], D[place] [address] [place] DPM Physici ans 2020-05-10 2020-05-10 Appointmen MARKEL [facility] Orthopedics [id number] Univers 09:00:00 09:00:00 t; RAJI JEAN BAPTISTE, - [place], [place] DPM Physici ans 2020-04-27 2020-04-27 Appointmen MARKEL [facility] Orthopedics [id number] Univers 14:45:00 14:45:00 t; RAJI JEAN BAPTISTE, - [place] of [place], D[place] DPM Physici ans 2020-03-29 2020-03-29 Appointmen MARKEL [facility] Orthopedics [id number] Univers 13:00:00 13:00:00 t; RAJI JEAN BAPTISTE, - [place] of [place], D[place] DPM Physici ans 2020-03-08 2020-03-08 Appointmen MARKEL [facility] Orthopedics [id number] Univers 11:15:00 11:15:00 t; RAJI JEAN BAPTISTE, - [place] of [place], D[place] DPM Physici ans 2020-02-26 2020-02-26 Outpatient Markel, [id number] 05:46:09 11:30:00 Raji 8 2020-02-26 2020-02-[address] [facility] [id number] Univers 10:30:00 10:30:00 t; RAJI JEAN BAPTISTE, - [place] of [place], D[place] DPM Physici ans 2020-02-02 2020-02-02 Appointmen MARKEL [facility] Orthopedics [id number] Univers 10:45:00 10:45:00 t; RAJI JEAN BAPTISTE, - [place] it[place] of [place], D[place] DPM Physici ans 2020-01-15 2020-01-15 Outpatient Krell, MHMISCHER MHMISCHER [id number] 15:00:00 23:59:59 Malcom 07 Santos 2020-01-15 2020-01-15 Outpatient VIPUL EspinalSCHER MHMISCHER [id number] 15:00:00 15:00:00 Malcom 06 Santos 2019-12-02 2019-12-02 Outpatient VIPUL EspinalSCHER MHMISCHER [id number] 15:30:00 23:59:59 Malcom Santos 2019-05-23 2019-05-23 Outpatient DIMA EspinalMISCHER MHMISCHER [id number] 13:15:00 13:15:00 Malcom Santos 2019-03-23 2019-03-23 Emergency Harish, [facility] [id number] 12:37:57 13:11:00 Palomo Guy [id number] [place] [id number] [place] [id number] 2019-03-23 2019-03-23 Orders Doctor SPENSER [id number] 00:00:00 00:00:00 Only Unassigned, MARIA ELENA [id number] [place] [id number] [facility] 2019-02-14 2019-02-14 Outpatient DIMA EspinalMISCHER MHMISCHER [id number] 15:00:00 23:59:59 Malcom 02 Santos 2018-12-24 2018-12-24 Outpatient VIPUL EspinalSCHER MHMISCHER [id number] 15:15:00 23:59:59 Malcom 03 Santos 2018-12-20 2018-12-20 Outpatient DIMA EspinalMISCHER MHMISCHER [id number] 13:45:00 23:59:59 Malcom Santos 2018-11-22 2018-11-22 Outpatient Kylie MHMISCHER MHMISCHER [id number] 14:45:00 23:59:59 Mal[place] 00 [facility] Results Test Description Test Time Test Comments Results Result [facility] e Comments LABORATORY 2020-02-18 141 [facility] 17:38:00 [facility] 2020-02-18 4.5 [facility] 17:38:00 [facility] 2020-02-18 108 [facility] 17:38:00 [place] LABORATORY 2020-02-18 24 [facility] 17:38:00 [place] LABORATORY 2020-02-18 13.5 [facility] 17:38:00 [place] LABORATORY 2020-02-18 9.5 [facility] 17:38:00 [place] LABORATORY 2020-02-18 92 [facility] 17:38:00 [place] LABORATORY 2020-02-18 Reported [facility] 17:38:00 (02/18/20 12:38 [place] PM) LABORATORY 2020-02-18 6.4 [facility] 17:38:00 [place] LABORATORY 2020-02-18 4.37 [facility] 17:38:00 [place] LABORATORY 2020-02-18 12.7 [facility] 17:38:00 [place] LABORATORY 2020-02-18 38.3 [facility] 17:38:00 [place] LABORATORY 2020-02-18 87.5 [facility] 17:38:00 [place] LABORATORY 2020-02-18 17:38:00 Test Item Value Reference Range Interpretation Comme nts MCH (test code = MCH) 29.2 pg 27.0-31.0 [facility] [id number] 17:38:0033.3[facility] 2020-02-18 17:38:0014.2[facility] NekerhjCMOFUKSRVE6822-63-39 17:38:90896Eepolrbc NmshrbgTKJUCFOSGZ4301-98-82 17:38:008.3[facility] RowaqxpWJDCMVRPCU4838-34-11 17:38:000.1[facility] NwmppykEBGXHCZDBS6197-86-15 17:38:00Reported (02/18/20 12:38 PM)[facility] RksbrkzSVSQUZRAGS8335-90-23 17:38:0062.2[facility] 2020-02-18 17:38:006.8[facility] SeiylkxRUGKAXTOZK9444-99-41 17:38:0026.9[facility] XgbogisKDRFGIYPTO2326-60-04 17:38:003.6[facility] EokpawhCGESTUXLIU1203-00-03 17:38:000.5[facility]orial WmvwfokZUCXLZMDJI7663-72-70 17:38:004.0[facility] [place] [id number] 17:38:001.7[facility] ZigiylxTFQQHAMOBB0550-81-34 17:38:000.4 Memorial WhvqcxfLQLYCSJEMT5007-46-88 17:38:000.2[facility] 2020-02-18 17:38:00Reported (02/18/20 12:38 PM)[facility] 2020-02-18 17:38:0089[facility] [id number] 17:38:0012[facility] FucigwoDGLOSUZJMT5991-54-28 17:38:000.79[facility] [place]
[2020-09-04] MEDS ORDERED: KETOROLAC 30 MG/ML INJ ONE (13:38)
--- NOTE | 2020-09-04 14:40 | RAD REPORT ---
EXAM DESCRIPTION: RAD - Knee Left 3 View - 09/04/2020 2:32 pm CLINICAL HISTORY: Left knee pain status post injury FINDINGS: Mild cortical regularity involves the lateral tibial plateau. Given that there is not a si gnificant joint effusion this probably does not represent a fracture. However, if the patient continues have symptoms to suggest an occult fracture, ligamentous or menisca l injury MRI would be recommended No dislocation
--- NOTE | 2020-09-04 14:55 | ER ---
Nurse's Notes [facility] Name: Trudi Villavicencio Age: 45 yrs Sex: Female : 1975 Arrival Date: 09/04/2020 Time: 12:51 Bed 13 Private MD: Diagnosis: Internal derangement of knee Presentation: 09/04 12:55 Chief complaint: Patient states: "I slipped on the ice on Sunday and I hurt my left jd3 knee.". Coronavirus screen: At this time, the client does not indicate any symptoms associated with coronavirus-19. Ebola Screen: Patient negative for fever greater than or equal to 101.5 degrees Fahrenheit, and additional compatible Ebola Virus Disease symptoms. Initial Sepsis Screen: Does the patient meet any 2 criteria? No. Patient's initial sepsis screen is negative. Does the patient have a suspected source of infection? No. Patient's initial sepsis screen is negative. Risk Assessment: Do you want to hurt yourself or someone else? Patient reports no desire to harm self or others. Onset of symptoms was August 30, 2020. 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 - Social history:: Smoking status: Patient denies any tobacco usage or history of. Screenin:00 Abuse screen: Denies threats or abuse. Denies injuries from another. Nutritional bp screening: No deficits noted. Tuberculosis screening: No symptoms or risk factors identified. Fall Risk None identified. Assessment: 13:00 General: SEE TRIAGE NOTE. bp 15:08 Reassessment: PT D/C HOME AMBULATORY, DX WITH INTERNAL DERANGEMENT OF KNEE. bp Vital Signs: 12:56 BP 117 / 75; Pulse 66; Resp 17 S; Temp 97.7(TE); Pulse Ox 96% on R/A; Weight 117.48 kg jd3 (R); Height 5 ft. 3 in. (160.02 cm) (R); Pain 7/10; 12:56 Body Mass Index 45.88 (117.48 kg, 160.02 cm) jd3 ED Course: 12:51 Patient arrived in ED. ag5 12:56 Triage completed. jd3 12:58 Arm band placed on. [facility] 13:05 Kapil Gallardo PA is PHCP. [facility] 13:05 Jacinto Thomas MD is Attending Physician. [facility] 13:09 Leland Chen, BECK is Primary Nurse. bp 13:24 Patient has correct armband on for positive identification. Placed in gown. Bed in low mh5 position. Call light in reach. Side rails up X 1. Pulse ox on. NIBP on. 13:24 Jelani wrap to left knee. mh5 14:33 Knee Left 3 View XRAY In Process Unspecified. EDMS 15:10 No provider procedures requiring assistance completed. bp 15:10 Patient did not have IV access during this emergency room visit. bp Administered Medications: 13:21 CANCELLED (allergy): Ketorolac 30 mg IM once [facility] 13:33 CANCELLED (other medication used): Tylenol 500 mg PO once [facility] 13:33 CANCELLED (other medication): Flexeril 10 mg PO once [facility] Outcome: 14:55 Discharge ordered by . jmm 15:10 Discharged to home ambulatory. bp 15:10 Condition: stable 15:10 Discharge instructions given to patient, Instructed on discharge instructions, follow up and referral plans. medication usage, Demonstrated understanding of instructions, follow-up care, medications, Prescriptions given X 1. 15:10 Patient left the ED. bp Signatures: Dispatcher [employer] EDMS Kapil Gallardo PA PA Mely Quinones [facility] Gildardo Shea RN RN [facility] April, Leland, RN RN bp Nomr, Ajare ag5
--- NOTE | 2020-09-04 14:56 | EDPHYS ---
Physician Documentation [facility] Name: Trudi Villavicencio Age: 45 yrs Sex: Female : 1975 Arrival Date: 09/04/2020 Time: 12:51 Bed 13 Private MD: ED Physician Jacinto Thomas HPI: 09/04 13:11 This 45 yrs old Female presents to ER via Ambulatory with complaints of Fall jmm Injury. 13:11 Details of fall: The patient fell from an upright position. Onset: The symptoms/episode jmm began/occurred acutely, 4 day(s) ago. Associated injuries: The patient sustained left knee. The patient has not experienced similar symptoms in the past. This is a 45 year old female with a history of DDD, asthma that presents to the ED with complaints of left knee pain which developed after attempting to avoid ice but still falling. Patient states she landed on her buttocks. Denies direct impact to her knee. Patient states she now has medial left knee pain with pain on bending. Denies pain elsewhere. . 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 Historical: - Allergies: 12:58 Aspirin; jd3 12:58 Codeine; jd3 12:58 Topamax; jd3 12:58 tramadol; jd3 - Home Meds: 12:58 Amitriptyline 30 mg tab Oral 1 tab nightly [Active]; Diphenhydramine Oral [Active]; jd3 hydrochlorothiazide 25 mg Oral tab 1 tab once daily [Active]; levothyroxine 25 mcg tab 1 tab once daily [Active]; pantoprazole 40 mg Oral TbEC 1 tab once daily [Active]; - PMHx: 12:58 Asthma; bleeding ulcer; Degenerative disc disease; DGD; enlarged aorta; erosive jd3 gastritis; Fibromyalgia; Herniated disc; herniated disk; neuropathy; - Immunization history:: Adult Immunizations up to date. - Social history:: Smoking status: Patient denies any tobacco usage or history of. ROS: 13:11 Constitutional: Negative for fever, chills, and weight loss, Cardiovascular: Negative jmm for chest pain, palpitations, and edema, Respiratory: Negative for shortness of breath, cough, wheezing, and pleuritic chest pain. 13:11 MS/extremity: Positive for injury or acute deformity, pain. 13:11 All other systems are negative. Exam: 13:11 Constitutional: This is a well developed, well nourished patient who is awake, alert, jmm and in no acute distress. Head/Face: atraumatic. Eyes: EOMI, no conjunctival erythema appreciated ENT: Moist Mucus Membranes Neck: Trachea midline, Supple Chest/axilla: Normal chest wall appearance and motion. Cardiovascular: Regular rate and rhythm. No edema appreciated Respiratory: Normal respirations, no respiratory distress appreciated Abdomen/GI: Non distended, soft Back: Normal ROM Skin: General appearance color normal 13:11 Musculoskeletal/extremity: left medial knee pain on palpation, FROM but painful, compartments are soft, NVI. 13:11 Skin: Appearance: Color: normal in color. 13:11 Neuro: Orientation: is normal, Mentation: is normal, Memory: is normal. 13:11 Psych: Behavior/mood is pleasant, cooperative. Vital Signs: 12:56 BP 117 / 75; Pulse 66; Resp 17 S; Temp 97.7(TE); Pulse Ox 96% on R/A; Weight 117.48 kg jd3 (R); Height 5 ft. 3 in. (160.02 cm) (R); Pain 7/10; 12:56 Body Mass Index 45.88 (117.48 kg, 160.02 cm) jd3 MDM: 13:11 Data reviewed: vital signs, nurses notes. [facility] 13:16 Patient medically screened. [facility] 14:52 Counseling: I had a detailed discussion with the patient and/or guardian regarding: the [facility] historical points, exam findings, and any diagnostic results supporting the discharge/admit diagnosis, radiology results, the need for outpatient follow up, to return to the emergency department if symptoms worsen or persist or if there are any questions or concerns that arise at home. ED course: Xray negative for fracture. Patient is advised to follow up with ortho for further evaluation. patient is otherwise given strict return precautions. patient understood and agrees with the plan of care. . 09/04 13:26 Order name: Knee Left 3 View XRAY; Complete Time: 14:44 [facility] 09/04 13:11 Order name: Knee Immobilizer; Complete Time: 13:24 [facility] 09/04 13:18 Order name: Jelani wrap-joint; Complete Time: 13:24 [facility] Administered Medications: 13:21 CANCELLED (allergy): Ketorolac 30 mg IM once [facility] 13:33 CANCELLED (other medication used): Tylenol 500 mg PO once [facility] 13:33 CANCELLED (other medication): Flexeril 10 mg PO once [facility] Disposition: 16:21 Co-signature as Attending Physician, Jacinto Thomas MD. rn Disposition: 09/04/20 14:55 Discharged to Home. Impression: Internal derangement of knee. - Condition is Stable. - Discharge Instructions: Knee Pain. - Prescriptions for orphenadrine citrate 100 mg Oral Tablet Sustained Release - take 1 tablet by ORAL route 2 times per day As needed; 20 tablet. - Medication Reconciliation Form, Thank You Letter, Antibiotic Education, Prescription Opioid Use form. - Follow up: Private Physician; When: 2 - 3 days; Reason: Recheck today's complaints, Continuance of care, Re-evaluation by your physician. Signatures: Dispatcher [employer] EDMS Kapil Gallardo PA PA Jacinto Jiménez MD MD rn Davies, Jonathon, RN RN jd3 Peltier, Brian, RN RN bp Corrections: (The following items were deleted from the chart) 13:21 13:11 Ketorolac 30 mg IM once ordered. [facility] 13:33 13:21 Tylenol 500 mg PO once ordered. [facility] 13:33 13:21 Flexeril 10 mg PO once ordered. [facility] 15:10 14:55 09/04/2020 14:55 Discharged to Home. Impression: Internal derangement of knee. bp Condition is Stable. Forms are Medication Reconciliation Form, Thank You Letter, Antibiotic Education, Prescription Opioid Use. Follow up: Private Physician; When: 2 - 3 days; Reason: Recheck today's complaints, Continuance of care, Re-evaluation by your physician. [facility]
[2020-09-04 15:48] VITALS: BP 117/75; TEMP 97.7; O2SAT 96
== END 2020-09-04 15:10 | disposition home or self-care (01) ==
LOC: ER 12:50
DX: M23.92 Unspecified internal derangement of left knee (principal); W19.XXXA Unspecified fall, initial encounter; Y93.89 Activity, other specified; Y92.89 Other specified places as the place of occurrence of the external cause; Z88.5 Allergy status to narcotic agent; Z88.6 Allergy status to analgesic agent; Z88.8 Allergy status to other drugs, medicaments and biological substances
CPT/HCPCS: 99284

== ENCOUNTER 2021-07-06 09:40 | Emergency (ER) | payer BC ==
--- OUTSIDE RECORDS SUMMARY | 2021-07-06 09:44 | XMS REPORT | Continuity of Care Document ---
:1975 Author Organization [facility] t Address [address] [place] [address] Care Team Providers Name Role Phone Anna SHAH Primary Care Physician Unavailable Ash PERES Attending Clinician Unavailable DILLON ALARCON Attending Clinician Unavailable Dillon Alarcon MD Attending Clinician ROCÍO PRUETT Attending Clinician Unavailable Ash Peres MD Attending Clinician Estela WOOD Attending Clinician Unavailable ALANNAH Attending Clinician Unavailable Alis OLSON Attending Clinician Unavailable JACQUELINE Attending Clinician Unavailable BRITTNEY Attending Clinician Unavailable Anna FAUST Attending Clinician Unavailable MARKEL Attending Clinician Unavailable Alis Cervantes Attending Clinician Doctor Unassigned, Name Attending Clinician Unavailable Ash PERES Admitting Clinician Unavailable Payers Payer Name Policy Type Policy Number Effective Date Expiration Date S ai [employer] [place] - [id number] 2020 00:00:00 OUT OF STATE BC 2 [id number] 2021 00:00:00 Problems Condition Condition Condition Status Onset Resolution Last Treating Co mments Source Name Details Category Date Date Treatment Clinician Date 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 initial initial Added encounter encounter automatic ally from request for surgery [id number] Secondary Secondary Disease Active Overview: Univers oligomenor oligomenor 4-08 Formattin ity of pete pete 00:00: g of this [place] 00 note Medical might be Branch different from the original. 10/21/18 - DepoProve ra started05/03 - EMB benign Vitamin D Vitamin D Disease Active Uni vers deficiency deficiency -19 it y of 00:00: [place] 00 Medical Branch Shoulder Shoulder Disease Active Unive rs impingemen impingemen -19 it y of t, left t, left 00:00: [place] 00 Medical Branch Low serum Low serum Disease Active Uni vers HDL HDL 1-12 ity of 00:00: [place] 00 Medical Branch Abnormal Abnormal Disease Active Unive rs thyroid thyroid 1-12 ity of stimulatin stimulatin [place] g hormone g hormone 00 Medi syeda (TSH) (TSH) Branch level level DDD DDD Disease Active Univers (degenerat (degenerat 1-12 it y of shireen disc shireen disc 00:00: [place] disease), disease), 00 Medi syeda cervical cervical Branch Left Left Disease Active Univers shoulder shoulder 1-12 ity of pain pain 00:00: [place] 00 Medical Branch Essential Essential Disease Active Uni vers hypertensi hypertensi 1-11 it y of on on 00:00: [place] 00 Medical Branch Anxiety Anxiety Disease Active Univers disorder disorder -11 ity of 00:00: [place] 00 Medical Branch 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 [...] pain pain ity of [place] Physici ans Pain of Pain of Problem Active Univers left calf left calf ity of [place] [facility] Edema, Edema, Problem Active Univers lower lower [place]y of extremity extremity [place] Plantar Plantar Problem Active Univers fasciitis fasciitis ity of [place] [facility] Left ankle Left ankle Problem Active U nivers pain pain ity of [place] [facility] Asthma Problem Active 2021-03-19 Memor ia (disorder) 01:30:10 l Asthma Luca (disorder) Active Problem 03/19/2021 [facility] Gastritis Problem Active 2021-03-19 Me moria (disorder) 01:30:10 l [place] Gastritis (disorder) Active Problem 03/19/2021 [facility] Hypertensi Problem Active 2021-03-19 M emoria ve 01:30:10 l disorder, [place] systemic Hypertensi arterial ve (disorder) disorder, systemic arterial (disorder) Active Problem 03/19/2021 [facility] Hypothyroi Problem Active 2021-03-19 M emoria dism 01:30:10 l (disorder) Burak n Hypothyroi dism (disorder) Active Problem 03/19/2021 [facility] Migraine Problem Active 2021-03-19 Mem oria (disorder) 01:30:10 l Migraine Burak n (disorder) Active Problem 03/19/2021 [facility] Morbid Problem Active 2021-03-19 Memor ia obesity 01:30:10 l (disorder) Morbid Herm mckenna obesity (disorder) Active Problem 03/19/2021 [facility] Thiamin Problem Active 2021-03-19 Lev trupti deficiency 01:30:10 l (disorder) 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) Active Problem 03/19/2021 [facility] Hemangioma Problem Active 2021-03-19 M emoria of 01:30:10 l intracrani Burak n al Hemangioma structure of (disorder) intracrani al structure (disorder) Active Problem 03/19/2021 [facility] Ankle pain Problem Active 2021-03-19 M emoria (finding) 01:30:10 l Ankle Luca pain (finding) Active Problem 03/19/2021 [facility] Paresthesi Problem Active 2021-03-19 M emoria a 01:30:10 l (finding) [place] Paresthesi a (finding) Active Problem 03/19/2021 [facility] Lumbar Problem Active 2021-03-19 Memor ia radiculopa 01:30:10 l thy Lumbar Luca (disorder) radiculopa thy (disorder) Active Problem 03/19/2021 [facility] Peripheral Problem Active 2021-03-19 M emoria nerve 01:30:10 l disease [place] (disorder) Peripheral nerve disease (disorder) Active Problem 03/19/2021 [facility] Acid Problem Active 2020-02-28 Memor ia reflux 04:01:02 l (finding) Acid [place] reflux (finding) Active Problem 02/28/2020 [facility] Allergy - Problem Active 2020-02-28 Me moria specialty 04:01:02 l (qualifier Allergy Her paulino value) - specialty (qualifier value) Active Problem 02/28/2020 [facility] Fracture Problem Active 2020-02-28 Mem oria of [place] 04:01:02 l (disorder) Fracture He rmann of [place] (disorder) Active Problem 02/28/2020 [facility] Neuropathy Problem Active 2020-02-28 M emoria (disorder) 04:01:02 l [place] Neuropathy (disorder) Active Problem 02/28/2020 [facility] Fibromyalg Fibromyalg Disease Active U nivers ia ia ity of [facility] Disc Disc Disease Active Univers disease, disease, [place]y of degenerati degener[place] ve, lumbar ve, lumbar Me dical or or Branch lumbosacra lumbosacra l l Cervical Cervical Disease Active Unive rs herniated herniated ity of disc disc [facility] Lumbar Lumbar Disease Active Univers herniated herniated ity of disc disc [facility] No known No known Disease Kelse y active active Seybold problems problems History of Past Illness Condition Condition Condition Status Onset Resolution Last Treating Co mments Source Name Details Category Date Date Treatment Clinician Date Nondisplac Problem 2020-02-28 2020-02-28 Memoria ed dome 02-25 04:01:02 04:01:02 l fracture 17:00: [place] of left Nondisplac 00 [place], ed dome initial fracture encounter of left for closed [place], fracture initial encounter for closed fracture 0 02/28/2020 [facility] Allergies, Adverse Reactions, Alerts Allergy Allergy Status Severity Reaction(s) Onset Inactive Treating Comm ents Source Name Type Date Date Clinician Fd&C Propensi Active Nausea and Agueda ey Yellow ty to Vomiting 03-31 Seybold #10 adverse 00:00: Aluminum reaction 00 [facility] s iramate Aspirin Propensi Active Other - See Yung Un george ty to comments 09-06 Syndrome ity of adverse 00:00: [place] reaction 00 Medical s Branch Codeine Propensi Active Nausea Univers ty to and/or 09-06 ity of adverse Vomiting 00:00: [place] reaction 00 Medical s Branch ASPIRIN DRUG Active Other-Cmnt Unive rs INGREDI - ity of 00:00: [place] 00 Medical Branch CODEINE DRUG Active N/V Univers INGREDI - ity of 00:00: [place] 00 Medical Branch TOPIRAMA DRUG Active N/V Univers TE INGREDI 2- ity of 00:00: [place] 00 Medical Branch Topirama Propensi Active Nausea and Other Ke lsey te ty to Vomiting 09-06 reaction( Seybo ld adverse 00:00: s): reaction 00 Unknown s Tramadol Propensi Active Rosi ty to 7 Seybold adverse 00:00: reaction 00 s Calcium Propensi Active Other Other Rosi Acetylsa ty to 02-05 reaction( Seybo ld licylate adverse 00:00: s): Maciel reaction 00 syndrome, s UnknownRe yes Syndrome Yung Syndrome Yung Syndrome Codeine Propensi Active Nausea and Other Sae sey ty to Vomiting 02-05 reaction( Seybo ld adverse 00:00: s): reaction 00 Unknown s aspirin aspirin Active Memoria l Luc[place] Topamax Topamax Active Memoria l [place] traMADol traMADol Active Memori a l [place] aspirin Allergy Active Univers to drug ity of (finding [place] ) Physici ans codeine Allergy Active Univers to drug ity of (finding [place] ) Physici ans codeine codeine Active Memoria sulfate sulfate l [place] Social History Social Habit Start Date Stop Date Quantity Comments Source Exposure to Not sure Rosi armendariz SARS-CoV-2 (event) Alcohol intake 2021-02-11 2021-02-11 0 /d [facility] 00:00:00 00:00:00 Medical Branch Sex [birth year] Rosi Se felicianoold 00:00:00 00:00:00 Smoking Status Start Date Stop Date Source Social History [facility] Medications Ordered Filled Start Stop Current Ordering Indication Dosage Frequency Signature Comments Components Source Medication Medication Date Date Medication? Clinician (SIG) Name Name Cyclobenzap 2020-07- No 1{tbl} Take 1 K elsey rine HCl 10 0-14 10-14 tablet by Se felicianoold MG oral 11:05: 00:00 mouth at Tablet 06 :00 bedtime as needed Valsartan-h 2020-07 Yes 1{tbl} Take 1 Ke loreneey ydroCHLOROt 0-14 tablet by Maisha bold hiazide 09:58: mouth 80-12.5 MG 32 oral Tablet Pantoprazol 2020-07 Yes pantoprazo Rosi e Sodium 40 0-14 le 40 mg Seyb old MG oral 09:58: tablet,del Tablet 32 ayed Delayed release Response TAKE 1 TABLET BY MOUTH ONCE DAILY Albuterol 2020-07 Yes 3 ml as Kelse y (PROVENTIL) 0-14 needed Seybol d (2.5 09:58: MG/3ML) 32 0.083% inhalation Inhalant Solution Budesonide, 2020-07 Yes 1mg Take 1 mg K elsey Inhalation, 0-14 by Seybold 1 MG/2ML 09:58: nebulizati inhalation 32 on daily Suspension Cyclobenzap 2020-07 Yes [id number] 10mg Take 1 Rosi rine HCl 10 0-14 tablet (10 Se ybold MG oral 00:00: mg total) Tablet 00 by mouth at bedtime as needed Euthyrox 2020-07 Yes Rosi 150 MCG 0-04 Seybold oral Tablet 00:00: 00 amitriptyli Yes = 1 tab, Me moria ne 75 mg 9-01 PO, l oral tablet 23:57: Bedtime, # Luca 00 30 ea, 5 Refill(s), Pharmacy: [facility], 152.4, cm, 03/16/21 8:31:00 CDT, Height, 112.727, kg, 03/16/21 8:31:00 CDT, Weight Amitriptyli Yes amitriptyl Rosi ne HCl 75 9- ine 75 mg Seybo ld MG oral 00:00: tablet Tablet 00 ubrogepant No 100 mg = 1 M emoria 100 MG Oral 8-23 tab, PO, l Tablet 21:26: PRN, PRN [place] [Ubrelvy] 00 Other -See Comment, X 30 day, # 10 tab, 1 Refill(s), Pharmacy: [facility], For Migraine. May repeat dose after 2 hours. Max dose 200 mg/ 24 hours, 152.4, cm, 02/01/21 13:49:00 CDT, Height, 116.818, kg, 02/01/21 1... Ibuprofen Yes Rosi 600 MG oral 8-04 Seybold Tablet 00:00: 00 methylPREDN Yes [id number] 84mg Take 21 Univers ISolone 7-30 tablets by ity of (MEDROL, 00:00: mouth [place] GENARO,) 4 mg 00 SEE-INSTRU Med ical tablets CTIONS. Branch follow package directions methylPREDN 2021-0 Yes [id number] 84mg Take 21 Univers ISolone 7-30 tablets by ity of (MEDROL, 00:00: mouth [place] GENARO,) 4 mg 00 SEE-INSTRU Med ical tablets CTIONS. Branch follow package directions medroxyPROG 2021-0 Yes [id number] 20mg Take 2 Univers ESTERone 5-13 tablets by ity o f (PROVERA) 00:00: mouth [place] 10 mg 00 daily. Medical tablet Branch medroxyPROG 202-0 Yes [id number] 20mg Take 2 Univers ESTERone 5-13 tablets by ity o f (PROVERA) 00:00: mouth [place] 10 mg 00 daily. Medical tablet Branch medroxyPROG 2021-0 Yes every 24 Ke lsey ESTERone 5-13 hours Seybold Acetate 10 00:00: MG oral 00 Tablet rizatriptan 0 Yes 5 mg = 1 Me moria 5 MG Oral 3-12 tab, PO, l Tablet 20:23: ONCE, PRN Burak n [Maxalt] 00 for migraine headache, # 9 tab, 1 Refill(s), Pharmacy: [facility], 160.02, cm, 09/24/20 13:34:00 [employer]SE [employer], Height, 113.636, kg, 09/24/20 13:34:00 [employer]SE [employer], Weight Rizatriptan 0 Yes rizatripta Rosi Benzoate 5 3-12 n 5 mg Seybold MG oral 00:00: tablet Tablet 00 TAKE 1 TABLET BY MOUTH ONCE DAILY NEEDED FOR HEADACHE MIGRAINE rizatriptan 0 Yes 5 mg = 1 Me moria 5 MG Oral 9-15 tab, PO, l Tablet 22:44: ONCE, PRN Burak n [Maxalt] 00 for migraine headache, # 9 tab, 1 Refill(s), Pharmacy: [facility], 152.4, cm, 01/15/20 15:04:00 CDT, Height, 115.455, kg, 01/15/20 15:04:00 CDT, Weight Misc 2020-0 No 900 mL, Memoria Medication - Soln-IV, l 15:27: IV, Once, first dose 02/26/20 10:27:00 CDT, stop date 02/26/20 10:27:00 CDT LR 1,000 mL 2020-0 No 1,000 mL, M emoria 8-13 IV, 75 l 15:20: mL/hr, start date 02/26/20 10:20:00 CDT, 2.14, m2 Saline Lock 2020-0 No 10 mL, Lev trupti Flush - Soln, IV l 15:20: Push, As Indicated [...] shivers, first dose 02/26/20 10:20:00 CDT Albuterol 2019-0 No 2.5 mg = 3 Me moria 0.83 MG/ML 8-13 mL, Soln, l Inhalant 15:20: NEB, Once Herm PRN for wheezing, first dose 02/26/20 10:20:00 CDT Ondansetron 2019-0 No 4 mg = 2 Me moria 8-13 mL, l 15:20: Injection, IV Push, q15min PRN for nausea, order duration: 2 doses, first dose 02/26/20 10:20:00 CDT, stop date Limited # of times Promethazin 2020-0 No 12.5 mg = M emoria e 8-13 0.5 mL, l 15:20: Injection, IM, Once PRN for vomiting, first dose 02/26/20 10:20:00 CDT fentaNYL 2019-0 No 25 mcg = Memor ia 8-13 0.5 mL, l 14:50: Injection, Luca 00 IV, Once, first dose 02/26/20 9:50:00 CDT, stop date 02/26/20 9:50:00 CDT fentaNYL 2020-0 No 25 mcg = Memor ia 8-13 0.5 mL, l 14:16: Injection, Fouke 00 IV, Once, first dose 02/26/20 9:16:00 CDT, stop date 02/26/20 9:16:00 CDT Misc 2020-0 No 1,000 mL, Memoria Medication -13 Soln-IV, l 13:23: IV, Once, first dose 02/26/20 8:23:00 CDT, stop date 02/26/20 8:23:00 CDT ceFAZolin 2020-0 No 2 gm, Memoria 8-13 Soln-IV, l 12:53: IV [place] 00 Piggyback, Once, first dose 02/26/20 7:53:00 CDT, stop date 02/26/20 7:53:00 CDT ondansetron 2020-0 No 4 mg = 2 Me moria 8-13 mL, l 12:53: Injection, Fouke 00 IV, Once, first dose 02/26/20 7:53:00 [...] Me moria 8-13 mL, l 12:41: Injection, Fouke 00 IV, Once, first dose 02/26/20 7:41:00 CDT, stop date 02/26/20 7:41:00 CDT propofol 2020-0 No 200 mg = Memor ia 8-13 20 mL, l 12:41: Emulsion, Fouke 00 IV, Once, first dose 02/26/20 7:41:00 CDT, stop date 02/26/20 7:41:00 CDT fentaNYL 2020-0 No 50 mcg = 1 Mem oria 8-13 mL, l 12:35: Injection, Fouke 00 IV, Once, first dose 02/26/20 7:35:00 [...] Mem oria 8-13 mL, l 12:25: Injection, Fouke IV, Once, first dose 02/26/20 7:25:00 CDT, stop date 02/26/20 7:25:00 CDT Cefazolin 2020-0 No 2 gm, Memoria 8-13 Soln-IV, l 12:00: IV [place] 00 Piggyback, Once, infuse over 30 minutes, [...] l IV Start 11:28: Subcutaneo Her paulino [[facility]] 00 us, Once PRN for other (see comment), first dose 02/26/20 6:28:00 CDT Allergy 2020-0 Yes mg, Oral, Memor ia Relief 8-05 Daily, 0 l 17:06: Refill(s) [place]ouke 00 Tylenol PM 2020-0 Yes Oral, qHS, M emoria 8-05 0 l 17:05: Refill(s), [place]ou[place] 00 sleep /pain amitriptyli 2020-0 Yes 75 mg = 1 M emoria ne 75 mg 8-05 tabs, l oral tablet 17:04: Oral, qHS, Fouke 00 0 Refill(s), sleep levothyroxi 2020-0 Yes 25 mcg = 1 Memoria ne 25 mcg 8-05 tabs, l (0.025 mg) 17:04: Oral, Burak n oral tablet 00 Daily, 0 Refill(s), hypothyroi d rizatriptan 2020-0 Yes 5 mg = 1 Me moria 5 mg oral 8-05 tabs, l tablet 17:04: Oral, Fouke 00 Daily, 0 Refill(s) pantoprazol 2020-0 Yes [...] PO, l oral tablet 20:24: Bedtime, # Fouke 00 30 ea, 5 Refill(s), Pharmacy: [facility], 152.4, cm, 01/15/20 15:04:00 CDT, Height, 115.455, kg, 01/15/20 15:04:00 CDT, Weight rizatriptan 2020-0 Yes 5 mg = 1 Me moria 5 MG Oral 7-02 tab, PO, l Tablet 20:24: ONCE, PRN Burak n [Maxalt] 00 for migraine headache, # 9 tab, 1 Refill(s), Pharmacy: [facility], 152.4, cm, 01/15/20 15:04:00 CDT, Height, 115.455, kg, 01/15/20 15:04:00 CDT, Weight rizatriptan Yes 5 mg = 1 Me moria 5 MG Oral 5-19 tab, PO, l Tablet 21:06: ONCE, PRN Burak n [Maxalt] 00 for migraine headache, # 9 tab, 1 Refill(s), Pharmacy: [facility] amitriptyli Yes = 1 tab, Me moria ne 75 mg 5-19 PO, l oral tablet 21:06: Bedtime, # Fouke 00 30 ea, 1 Refill(s), Pharmacy: [facility] sod Yes [id number] 1{bottl Use 1 Unive rs chlor-bicar 9-08 e} Bottle in ity of b-squeez 00:00: each [place] bottle 00 nostril 2 Medical (NEILMED (two) Branch SINUS RINSE times COMPLETE) daily. Use pkdv in hot shower 1 hour before bedtime loratadine Yes [id number] 10mg Take 1 U nivers 10 mg 9-08 tablet by ity of tablet 00:00: mouth [place] 00 daily. Medical Branch sod Yes [id number] 1{bottl Use 1 Unive rs chlor-bicar 9-08 e} Bottle in ity of b-squeez 00:00: each [place] bottle 00 nostril 2 Medical (NEILMED (two) Branch SINUS RINSE times COMPLETE) daily. Use pkdv in hot shower 1 hour before bedtime loratadine Yes [id number] 10mg Take 1 U nivers 10 mg 9-08 tablet by ity of tablet 00:00: mouth [place] 00 daily. Medical Branch amitriptyli Yes 75 mg = 1 M emoria ne 75 mg 8-22 tab, PO, l oral tablet 18:27: Bedtime, # Fouke 00 30 tab, 1 Refill(s), Pharmacy: [facility] rizatriptan Yes 5 mg = 1 Me moria 5 MG Oral 8-02 tab, PO, l Tablet 20:24: ONCE, PRN Burak n [Maxalt] 09 for migraine headache, # 9 tab, 1 Refill(s), Pharmacy: [facility] thiamine Yes 100 mg = 1 Mem oria 100 mg oral 8-02 tab, PO, l tablet 20:23: Daily, X Luca 17 30 day, # 30 tab, 3 Refill(s), Pharmacy: [facility] cyanocobala Yes 1,000 Memor ia min 1000 8-02 microgram l mcg 20:23: = 1 tab, Fouke sublingual 13 SL, Daily, tablet # 30 tab, 2 Refill(s), Pharmacy: [facility] amitriptyli Yes 50 mg = 1 M emoria ne 50 mg 8-02 tab, PO, l oral tablet 20:23: Bedtime, # Fouke 09 30 tab, 1 Refill(s), Pharmacy: [facility] rizatriptan No 5 mg = 1 Me moria 5 MG Oral 7-13 tab, PO, l Tablet 01:53: Daily, PRN Antonia nn [Maxalt] 00 for migraine headache, X 6 day, # 6 tab, 1 Refill(s), Pharmacy: [facility] amitriptyli No 50 mg = 1 M emoria ne 50 mg 7-13 tab, PO, l oral tablet 01:53: Bedtime, # Fouke 00 30 tab, 1 Refill(s), Pharmacy: [facility] frovatripta No 2.5 mg = 1 Memoria n 2.5 mg 6-27 tab, PO, l oral tablet 15:37: Daily, PRN Luca 00 for migraine headache, May repeat another dose at least 2 hours after the first dose, X 3 day, # 9 tab, 2 Refill(s), Pharmacy: [facility] eletriptan No See Memoria 40 MG Oral 6-25 Instructio l Tablet 23:35: ns, PO, Fouke [Relpax] 00 Take 1-2 tabs orally at onset of migraine, may repeat dose once in 2 hours, X 3 day, # 6 tab, 1 Refill(s), Pharmacy: [facility] amitriptyli Yes 25 mg = 1 M emoria ne 25 mg 6-11 tab, PO, l oral tablet 21:16: Bedtime, # Fouke 00 30 tab, 3 Refill(s), Pharmacy: [facility] cyanocobala 2018- Yes 1,000 Memor ia min 1000 6-07 microgram l mcg 19:39: = 1 tab, Fouke sublingual 00 SL, Daily, tablet # 30 tab, 2 Refill(s), Pharmacy: [facility] thiamine Yes 100 mg = 1 Mem oria 100 mg oral 5-17 tab, PO, l tablet 18:13: Daily, X Fouke 00 30 day, # 30 tab, 3 Refill(s), Pharmacy: [facility] amitriptyli Yes 10 mg = 1 M emoria ne 10 mg 5-10 tab, PO, l oral tablet 20:44: Bedtime, # Fouke 00 30 tab, 3 Refill(s), Pharmacy: [facility] gabapentin Yes 300 mg = 1 M emoria [...] PO, Daily, # 30 tab, 0 Refill(s) levothyroxi 2017- Yes 50ug Take 1 Univ ers ne 50 mcg 4-30 tablet by ity o f tablet 00:00: mouth [place] 00 every Medical morning. [place] levothyroxi Yes 50ug Take 1 Univ ers ne 50 mcg 4-30 tablet by ity o f tablet 00:00: mouth [place] 00 every Medical morning. [place] escitalopra Yes 10mg Take 1 Univ ers m oxalate 1-24 tablet by ity o f 10 mg 00:00: mouth [place] tablet 00 daily. Medical Branch escitalopra Yes 10mg Take 1 Univ ers m oxalate 1-24 tablet by ity o f 10 mg 00:00: mouth [place] tablet 00 daily. Medical Branch bisoprolol Yes [id number] 10mg Take 1 U nivers 10 mg 1-11 tablet by ity of tablet 00:00: mouth [place] 00 daily. Medical Branch cyclobenzap Yes [id number] 10mg Take 1 Univers rine 10 mg 1-11 tablet by ity of tablet 00:00: mouth at [place] 00 bedtime. Medical Branch bisoprolol Yes [id number] 10mg Take 1 U nivers 10 mg 1-11 tablet by ity of tablet 00:00: mouth [place] 00 daily. Medical Branch cyclobenzap Yes [id number] 10mg Take 1 Univers rine 10 mg 1-11 tablet by ity of tablet 00:00: mouth at [place] 00 bedtime. Medical Branch albuterol 2015-07 Yes Univers 2.5 mg /3 1-30 ity of mL (0.083 00:00: [place] %) 00 Medical nebulizer Branch solution PROAIR HFA 2015-07 Yes Univers 90 1-30 ity of mcg/actuati 00:00: [place] on inhaler 00 Medical Branch albuterol 2015-07 Yes Univers 2.5 mg /3 1-30 ity of mL (0.083 00:00: [place] %) 00 Medical nebulizer Branch solution PROAIR HFA 2015-07 Yes Univers 90 1-30 ity of mcg/actuati 00:00: [place] on inhaler 00 Medical Branch montelukast 2015-07 Yes 10mg Take 10 mg Univers (SINGULAIR) 1-03 by mouth ity of 10 mg 00:00: every [place] tablet 00 evening. Medical Branch montelukast 2015-07 Yes 10mg Take 10 mg Univers (SINGULAIR) 1-03 by mouth ity of 10 mg 00:00: every [place] tablet 00 evening. Medical Branch fluticasone Yes Univer s 50 9-02 ity of mcg/actuati 00:00: [place] on nasal 00 Medical spray Branch fluticasone Yes Univer s 50 9-02 ity of mcg/actuati 00:00: [place] on nasal 00 Medical [place] [facility] Levothyroxi Levothyroxi Yes M.D. U nivers ne Sodium ne Sodium ity o f TABS TABS [place] [facility] Meloxicam Meloxicam Yes M.Frank Unive rs TABS TABS ity of [place] [facility] Amitriptyli Amitriptyli Yes M.D. U nivers ne HCl TABS ne HCl TABS i ty of [place] Phys[facility] ans Immunizations Ordered Filled Immunization Date Status Comments [facility] e Immunization Name Name Covid-19 Vaccine 2021-03-31 Completed Rosi esposito (Moderna), 00:00:00 Mrna-lnp, Shade Protein, Pf, 100 Mcg/0.5ml,IM Covid-19 Vaccine 2021-03-02 Completed Rosi esposito (Moderna), 00:00:00 Mrna-lnp, [place]ade Protein, Pf, 100 Mcg/0.5ml,IM TDAP 2016-07-24 Completed [facility] 00:00:00 [facility] Influenza Virus 2016-07-24 Completed Universit y of Vaccine Quad IM 3+ 00:00:00 [facility] TDAP 2016-07-24 Completed [facility] 00:00:00 [facility] Influenza Virus 2016-07-24 Completed Universit y of Vaccine Quad IM 3+ 00:00:00 [facility] Influenza Virus 2016-07-24 Completed Rosi solano Vaccine, No 00:00:00 Preserv, age 6 months and up Tdap- (Boostrix, 2016-07-24 Completed Rosi esposito Adacel) 00:00:00 Tdap- (Boostrix, 2010-01-18 Completed Rosi esposito Adacel) 00:00:00 Vital Signs Vital Name Observation Time Observation Value Comments Source Systolic blood 2021-04-28 14:43:00 100 mm[Hg] Rosi Weber pressure Diastolic blood 2021-04-28 14:43:00 60 mm[Hg] Brent maria Seybold pressure Heart rate 2021-04-28 14:43:00 112 /min Rosi esposito Body temperature 2021-04-28 14:43:00 37 Sole Agueda nellie Seybold Respiratory rate 2021-04-28 14:43:00 16 /min Agueda Weber Body height 2021-04-28 14:43:00 157.5 cm Rosi ballardboshabnam Body weight 2021-04-28 14:43:00 113.853 kg Rosi ballardboshabnam BMI 2021-04-28 14:43:00 45.91 kg/m2 Rosi esposito Systolic blood 2021-02-11 13:34:00 127 mm[Hg] Univer sity of pressure [facility] Diastolic blood 2021-02-11 13:34:00 87 mm[Hg] Unive rsity of pressure [facility] Heart rate 2021-02-11 13:34:00 100 /min [facility] Body height 2021-02-11 13:34:00 160 cm [facility] Body weight 2021-02-11 13:34:00 115.667 kg [facility] BMI 2021-02-11 13:34:00 45.17 kg/m2 [facility] Systolic (mm Hg) 2021-03-16 13:19:00 Lev rial [facility] Diastolic (mm Hg) 2021-03-16 13:19:00 Mem [facility] [place] Heart Rate 2021-03-16 13:19:00 [facility] Respitory Rate 2021-03-16 13:19:00 [facility] Height 2021-03-16 13:19:00 152.4 cm [facility] Weight 2021-03-16 13:19:00 [facility] BMI Calculated 2021-03-16 13:19:00 [facility] [place] Systolic (mm Hg) 2021-02-01 18:35:00 Lev rial [place] Diastolic (mm Hg) 2021-02-01 18:35:00 Mem o[facility] Heart Rate 2021-02-01 18:35:00 [facility] Respitory Rate 2021-02-01 18:35:00 [facility] [place] Height 2021-02-01 18:35:00 152.4 cm [facility] Weight 2021-02-01 18:35:00 [facility] BMI Calculated 2021-02-01 18:35:00 [facility] [place] Systolic (mm Hg) 2020-09-24 19:34:00 Lev rial Luca Diastolic (mm Hg) 2020-09-24 19:34:00 Mem o[facility] [place] Heart Rate 2020-09-24 19:34:00 [facility] Respitory Rate 2020-09-24 19:34:00 [facility] [place] Height 2020-09-24 19:34:00 160.02 cm [facility] Weight 2020-09-24 19:34:00 [facility] BMI Calculated 2020-09-24 19:34:00 [facility] [place] Respitory Rate 2020-02-26 16:32:00 [facility] [place] Systolic (mm Hg) 2020-02-26 16:32:00 Lev rial [place] Diastolic (mm Hg) 2020-02-26 16:32:00 Mem orial [facility] Heart Rate 2020-02-26 16:00:00 [facility] Respitory Rate 2020-02-26 16:00:00 [facility] Systolic (mm Hg) 2020-02-26 16:00:00 Lev rial Luc[facility] Diastolic (mm Hg) 2020-02-26 16:00:00 Mem o[facility] Heart Rate 2020-02-26 15:50:00 [facility] Respitory Rate 2020-02-26 15:50:00 [facility] Systolic (mm Hg) 2020-02-26 15:50:00 Lev rial [place] Diastolic (mm Hg) 2020-02-26 15:50:00 Mem o[facility] Heart Rate 2020-02-26 15:40:00 [facility] Temperature Oral (F) 2020-02-26 15:20:00 37.0 Sole [facility] Temperature Oral (F) 2020-02-26 11:25:00 37.2 Sole [facility] Height 2020-02-26 11:25:00 158 cm [facility] Height 2020-02-18 16:59:00 158 cm [facility] Systolic blood 2020-02-02 14:39:00 134 mm[Hg] [facility] [place] [facility] Diastolic blood 2020-02-02 14:39:00 64 mm[Hg] [facility] [place] [facility] Body height 2020-02-02 14:39:00 63 [in_us] [facility] [place] [facility] Weight 2020-02-02 14:39:00 147 [lb_av] [facility] Physician s Body mass index 2020-02-02 14:39:00 26.04 kg/m2 Unive rsity of (BMI) [Ratio] [place] [facility] Heart Rate 2020-02-02 14:39:00 74 /min [facility] Physician s Systolic (mm Hg) 2020-01-15 20:04:00 Lev rial Luc[facility] Diastolic (mm Hg) 2020-01-15 20:04:00 Mem orial [place] Heart Rate 2020-01-15 20:04:00 [facility] Respitory Rate 2020-01-15 20:04:00 [facility] [place] Height 2020-01-15 20:04:00 152.4 cm [facility] Weight 2020-01-15 20:04:00 [facility] BMI Calculated 2020-01-15 20:04:00 [facility] [place] Systolic (mm Hg) 2019-12-02 20:40:00 Lev rial [place] Diastolic (mm Hg) 2019-12-02 20:40:00 Mem orial [place] Heart Rate 2019-12-02 20:40:00 [facility] Respitory Rate 2019-12-02 20:40:00 [facility] [place] Height 2019-12-02 20:40:00 152.4 cm [facility] Weight 2019-12-02 20:40:00 [facility] BMI Calculated 2019-12-02 20:40:00 [facility] [place] Weight 2019-02-14 19:40:00 [facility] BMI Calculated 2019-02-14 19:40:00 [facility] Height 2019-02-14 19:40:00 160.02 cm [facility] Respitory Rate 2019-02-14 19:40:00 [facility] [place] Heart Rate 2019-02-14 19:40:00 [facility] Systolic (mm Hg) 2019-02-14 19:40:00 Lev rial [place] Diastolic (mm Hg) 2019-02-14 19:40:00 Mem o[facility] BMI Calculated 2018-12-24 20:38:00 [facility] [place] Weight 2018-12-24 20:38:00 [facility] Height 2018-12-24 20:38:00 157.48 cm [facility] Systolic (mm Hg) 2018-12-24 20:38:00 Lev rial [place] Diastolic (mm Hg) 2018-12-24 20:38:00 Mem orial [place] Respitory Rate 2018-12-24 20:38:00 [facility] [place] Heart Rate 2018-12-24 20:38:00 [facility] Height 2018-12-20 19:20:00 152.4 cm [facility] BMI Calculated 2018-12-20 19:20:00 [facility] [place] Weight 2018-12-20 19:20:00 [facility] Systolic (mm Hg) 2018-12-20 19:20:00 Lev rial [place] Diastolic (mm Hg) 2018-12-20 19:20:00 Mem orial [facility] Heart Rate 2018-12-20 19:20:00 [facility] Respitory Rate 2018-12-20 19:20:00 [facility] [place] Systolic (mm Hg) 2018-11-22 19:23:00 Lev rial [place] Diastolic (mm Hg) 2018-11-22 19:23:00 Mem orial [place] Respitory Rate 2018-11-22 19:23:00 [facility] [place] Height 2018-11-22 19:23:00 157.48 cm [facility] Weight 2018-11-22 19:23:00 [facility] BMI Calculated 2018-11-22 19:23:00 [facility] Heart Rate 2018-11-22 19:23:00 [facility] Procedures Procedure Date / Time Performing Clinician Source Performed MR Ankle wo contrast 17684 2020-07-02 00:00:00 [facility] [place] [facility] [MMD] US Lower Extremity 2020-05-31 00:00:00 [facility] [place] Venous Doppler Bilateral Physici ans Post Op Promis 29 Survey 2020-03-12 00:00:00 Uni versity 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 Breast reduction, [facility] nn bilateral Bunionectomy [facility] Carpal tunnel syndrome of Memori al [place] right wrist Plantar fasciitis of left Memori al [place] foot Plan of Care Planned Activity Planned Date Details Comments Source Diagnostic Test 2020-02-02 [UTP] Ortho - [facility] Pending 00:00:00 Surgery Scheduling Physician s [code = [UTP] Ortho - Surgery Scheduling] Encounters Start End Encounter Admission Attending Care Care Encounter Source Date/Time Date/Time Type Type Clinicians Facility Department ID 2021-05-15 Outpatient R JA [facility] [id number] [facility] 06:58:[address] [facility] 2021-07-05 2021-07-05 Outpatient ROSI ALARCON [id number] Rosi 00:00:00 00:00:00 ALFONZO armendariz 2021-07-05 2021-07-05 Outpatient ROSI ALARCON [id number] Rosi 00:00:00 00:00:00 ALFONZO armendariz 2021-06-02 2021-06-02 Outpatient ROSI ALARCON [id number] Rosi 00:00:00 00:00:00 ALFONZO armendariz 2021-05-18 2021-05-18 Outpatient [facility] [id number] [place] 00:00:00 00:00:[address] 2021-05-18 2021-05-18 Outpatient [facility] [id number] [place] 00:00:00 00:00:[address] 2021-05-18 2021-05-18 Outpatient [facility] [id number] [place] 00:00:00 00:00:[address] 2021-05-16 2021-05-16 Outpatient ROSI ALARCON [id number] Rosi 00:00:00 00:00:00 ALFONZO armendariz 2021-05-11 2021-05-11 Outpatient AGNES ROSI STEARNS [id number] Rosi 00:00:00 00:00:00 ALFONZO Stevensol d 2021-05-11 2021-05-11 Outpatient AGNES ROSI STEARNS [id number] [place]i 00:00:00 00:00:00 ALFONZO Stevensol d 2021-04-28 2021-04-28 Office Jered Alarcon [id number] Rosi 09:39:43 10:09:43 Visit Alfonzo Montenegro [id number] Se russ Orantes [id number] 2021-04-27 2021-04-27 Outpatient MHIE IE [id number] Memoria 10:15:00 10:15:00 13 l [place] 2021-04-21 2021-04-21 ambulatory [facility] [id number] 2021-04-12 2021-04-12 Out[facility] [id number] [facility] 2021-04-06 2021-04-06 ambulatory [facility] [id number] [facility] 2021-03-31 2021-03-31 Outpatient [facility] [id number] [facility] 2021-03-30 2021-03-30 Out[facility] [id number] [facility] 2021-03-30 2021-03-30 Out[facility] [id number] [facility] 2021-03-28 2021-03-28 Outpatient ROYCE DELEON [facility] [id number] Univers 10:30:00 10:30:00 [id number] [facility] 2021-03-28 2021-03-28 Outpatient ROYCE DELEON [facility] [id number] Univers 10:30:00 10:30:00 [facility] 2021-03-16 2021-03-17 Outpatient nullFlavo MNA [id number] Memoria 13:15:00 04:59:59 r Neurology 12 l [place] 2021-03-17 2021-03-17 Outpatient [facility] [id number] [facility] 2021-02-23 2021-02-23 Outpatient [facility] [id number] [facility] 2021-02-21 2021-02-21 Outpatient [facility] [id number] [facility] 2021-02-16 2021-02-16 Out[facility] [id number] [facility] 2021-02-15 2021-02-15 Outpatient [facility] [id number] [facility] 2021-02-11 2021-02-11 Outpatient Scott PERES [facility] [id number] Univers 08:15:00 08:56:02 ESTER [facility] 2021-02-11 2021-02-11 [facility] [id number] Univers 08:13:08 08:56:02 Visit Ester [facility] [id number] it y of SURGICAL [id number] [place] as SPECIALTI [id number] Fl dic[address] 2021-02-11 2021-02-11 Outpatient Scott PERES [facility] [id number] Univers 08:15:00 08:15:00 ESTER [id number] [facility] 2021-02-10 2021-02-10 Outpatient Scott NINA [facility] [id number] Univers 13:00:00 13:00:00 MG [id number] [facility] 2021-02-10 2021-02-10 Outpatient Scott NINA [facility] [id number] Univers 13:00:00 13:00:00 MG [facility] 2021-02-03 2021-02-03 Outpatient Scott WOOD [facility] [id number] Univers 10:30:00 10:30:00 MG [id number] [facility] 2021-02-03 2021-02-03 Outpatient Scott WOOD [facility] [id number] Univers 10:30:00 10:30:00 MG [facility] 2021-02-01 2021-02-02 Outpatient nullFlavo MNA [id number] Memoria 18:30:00 04:59:59 r Neurology 11 l [place] 2021-01-20 2021-01-20 Outpatient [facility] [id number] [facility] 2021-01-14 2021-01-14 Outpatient [facility] [id number] [facility] 2020-12-23 2020-12-23 Outpatient Scott JAFFE [facility] [id number] Univers 10:00:00 10:00:00 DEMETRIA [facility] 2020-12-23 2020-12-23 Outpatient Scott OLSON [facility] [id number] Univers 09:00:00 09:00:00 WONDIFUL [id number] ity o f [facility] 2020-12-23 2020-12-23 Outpatient Scott OLSON [facility] [id number] Univers 09:00:00 09:00:00 WONDIFUL ity o f [facility] 2020-12-16 2020-12-16 Outpatient Scott WOOD [facility] [id number] Univers 10:30:00 10:30:00 MG [id number] [facility] 2020-12-16 2020-12-16 Outpatient Scott NINA [facility] [id number] Univers 10:30:00 10:30:00 MG [facility] 2020-12-15 2020-12-15 Outpatient [facility] [id number] [facility] 2020-12-15 2020[facility]12-15 Outpatient [facility] [id number] [facility] 2020-12-06 2020-12-06 Outpatient Scott WOOD [facility] [id number] Univers 15:30:00 15:30:00 MG [id number] [facility] 2020-12-06 2020-12-06 Outpatient Scott WOOD [facility] [id number] Univers 15:30:00 15:30:00 MG [facility] 2020-11-25 2020-11-25 Outpatient PRUETTROYCE [facility] [id number] Univers 09:00:00 09:00:00 [id number] [facility] 2020-11-25 2020-11-25 Outpatient Scott PRUETTROYCE [facility] [id number] Univers 09:00:00 09:00:00 [facility] 2020-11-11 2020-11-11 Outpatient Scott PRUETTROYCE [facility] [id number] Univers 15:30:00 15:30:00 [id number] [facility] 2020-11-11 2020-11-11 Outpatient Scott PRUETT ROYCE [facility] [id number] Univers 15:30:00 15:30:00 [facility] 2020-11-04 2020-11-04 Outpatient Scott PHILLIPS [facility] [id number] Univers 10:00:00 10:00:00 EMELYN [id number] [facility] 2020-11-04 2020-11-04 Outpatient Scott PHILLIPS [facility] [id number] Univers 10:00:00 10:00:00 EMELYN [facility] 2020-10-28 2020-10-28 Outpatient Scott NINA [facility] [id number] Univers 10:45:00 10:45:00 MG [id number] [facility] 2020-10-28 2020-10-28 Outpatient Scott WOOD [facility] [id number] Univers 10:45:00 10:45:00 MG [facility] 2020-10-25 2020-10-25 Outpatient Scott WOOD [facility] [id number] Univers 14:45:00 14:45:00 MG [id number] [facility] 2020-10-25 2020-10-25 Outpatient Scott WOOD [facility] [id number] Univers 14:45:00 14:45:00 MG [facility] 2020-10-15 2020-10-15 Outpatient Scott WOOD [facility] [id number] Univers 10:00:00 10:00:00 MG [id number] [facility] 2020-10-15 2020-10-15 Outpatient Scott WOOD [facility] [id number] Univers 10:00:00 10:00:00 MG [facility] 2020-10-08 2020-10-08 Outpatient R [facility] [id number] Univers 09:30:00 09:30:00 [id number] [facility] 2020-10-08 2020-10-08 Outpatient R JA, [facility] [id number] Univers 09:30:00 09:30:00 ESTER [facility] 2020-10-08 2020-10-08 Outpatient R BRITTNEY, [facility] [id number] Univers 09:15:00 09:15:00 OSCAR [facility] 2020-09-24 2020-09-25 Outpatient nullFlavo MNA [id number] Memoria 19:00:00 05:59:59 r Neurology 10 l [place] 2020-09-24 2020-09-24 Outpatient Scott WOOD [facility] [id number] Univers 09:45:00 09:45:00 MG [id number] [facility] 2020-09-24 2020-09-24 Outpatient R NINA [facility] [id number] Univers 09:45:00 09:45:00 MG crow [facility] 2020-09-21 2020-09-21 Outpatient R JA [facility] [id number] Univers 14:00:00 14:00:00 ESTER [id number] [facility] 2020-09-21 2020-09-21 Outpatient R JA [facility] [id number] Univers 00:00:00 00:00:00 ESTER crow [facility] 2020-09-09 2020-09-09 Outpatient JA [facility] [id number] Univers 09:15:00 09:15:00 ESTER [id number] [facility] 2020-09-09 2020-09-09 Outpatient R JA [facility] [id number] Univers 09:15:00 09:15:00 ESTER [facility] 2020-09-06 2020-09-06 Ambulatory nullFlavo MNA [id number] Memoria 16:30:00 16:30:00 Pre-Reg r Neurology 09 l [place] 2020-07-14 2020-07-14 Outpatient R [facility] [id number] Univers 19:00:00 19:00:00 [id number] [facility] 2020-07-14 2020-07-14 Outpatient R CHRISTIANNE [facility] [id number] Univers 19:00:00 19:00:00 BROOKE mayesy o f [facility] 2020-07-02 2020-07-02 Appointmen NEAL JEAN BAPTISTE [facility] [id number] Univers 14:30:00 14:30:00 t; RAJI JEAN BAPTISTE, - Sugar ity of RAJI, DPRaeann [facility] 2 [place] DPM Physici ans 2020-06-01 2020-06-01 Ambulatory nullFlavo MNA [id number] Memoria 20:00:00 20:00:00 Pre-Reg r Neurology 08 l [place] 2020-05-31 2020-05-31 Appointmen NEAL JEAN [facility] [id number] Univers 10:00:00 10:00:00 t; RAJI JEAN BAPTISTE, - [place] ity of RAJI, DPM [place] 2 [place] DPM Physici ans 2020-05-10 2020-05-10 Appointmen MARKEL [facility] Orthopedics [id number] Univers 09:00:00 09:00:00 t; RAJI JEAN BAPTISTE, - Sugar ity of RAJI, DPM [place] DPM Physici ans 2020-04-27 2020-04-27 Appointrosaura JEAN BAPTISTE [facility] Orthopedics [id number] Univers 14:45:00 14:45:00 t; RAJI JEAN BAPTISTE, - [place] ity of RAJI, DPM [place] DPM Physici ans 2020-03-29 [facility] [id number] Univers 13:00:00 13:00:00 t; RAJI JEAN BAPTISTE, - [place] ity of RAJI, DPM [place] DPM Physici ans 2020-03-08 2020-03-08 [facility]rosaura [facility] [id number] Univers 11:15:00 11:15:00 t; RAJI JEAN BAPTISTE, - Sugar ity of RAJI, DPM [place] DPM Physici ans 2020-02-26 2020-02-26 Outpatient nullFlavo [facility] [id number] Memoria 10:46:09 16:30:00 [facility] 2020-02-26 2020-02-26 App[facility]men [facility] [id number] Univers 10:30:00 10:30:00 t; RAJI JEAN BAPTISTE, - [place] ity of RAJI, DPM [place] DPM Physici ans 2020-02-02 2020-02-02 App[facility]men [facility] [id number] Univers 10:45:00 10:45:00 t; RAJI JEAN BAPTISTE, - Sugar ity of RAJI, DPM [place] DPM Physici ans 2020-01-15 2020-01-16 Outpatient nullFlavo MNA [id number] Memoria 20:00:00 04:59:59 r Neurology 07 l [facility] 2020-01-15 2020-01-15 Ambulatory nullFlavo MNA [id number] Memoria 20:00:00 20:00:00 Pre-Reg r Neurology 06 l [facility] 2019-12-02 2019-12-03 Outpatient nullFlavo MNA [id number] Memoria 20:30:00 04:59:59 r Neurology 05 l Nik Segovia 2019-05-23 2019-05-23 Ambulatory nullFlavo MNA [id number] Memoria 19:15:00 19:15:00 Pre-Reg r Neurology 04 l Nik Segovia 2019-03-23 2019-03-23 Emergency Harish, [facility] [id number] 12:37:57 13:11:00 Palomo Guy [id number] [place] [id number] [place] [id number] 2019-03-23 2019-03-23 Orders Doctor SPENSER [id number] 00:00:00 00:00:00 Only Unassigned, MARIA ELENA [id number] [place] [id number] 2019-02-14 2019-02-15 Outpatient nullFlavo MNA [id number] Memoria 20:00:00 04:59:59 r Neurology 02 l Nik Segovia 2018-12-24 2018-12-25 Outpatient nullFlavo MNA [id number] Memoria 20:15:00 04:59:59 r Neurology 03 l Nik Segovia 2018-12-20 2018-12-21 Outpatient nullFlavo MNA [id number] Memoria 18:45:00 04:59:59 r Neurology 01 l [place] 2018-11-22 2018-11-23 Outpatient nullFlavo MNA [id number] Memoria 19:45:00 04:59:59 r Neurology 00 l Nik Segovia Results Test Description Test Time Test Comments Results Result Sour e Comments LABORATORY 2020-02-18 4.5 [facility] 17:38:[address] [facility] 2020-02-18 108 [facility] 17:38:[address] [facility] 2020-02-18 24 [facility] 17:38:[address] [facility] 2020-02-18 13.5 Memorial 17:38:[address] [facility] 2020-02-18 9.5 [facility] 17:38:[address] [facility] 2020-02-18 92 [facility] 17:38:[address] [facility] 2020-02-18 Reported Memorial 17:38:00 (02/18/20 12:38 Luca PM) LABORATORY 2020-02-18 6.4 [facility] 17:38:00 [facility] LABORATORY 2020-02-18 4.37 [facility] 17:38:00 [place] LABORATORY 2020-02-18 12.7 [facility] 17:38:00 [place] LABORATORY 2020-02-18 38.3 [facility] 17:38:00 [facility] LABORATORY 2020-02-18 87.5 [facility] 17:38:00 [facility] LABORATORY 2020-02-18 17:38:00 Test Item Value Reference Range Interpretation Comme nts MCH (test code = MCH) 29.2 pg 27.0-31.0 [facility] BhjipibVZLDHFEJMT2490-06-08 17:38:0033.3[facility] 2020-02-18 17:38:0014.2[facility] PirswetXIIFCXJUQV4088-08-06 17:38:00999Xbmgxczj QjdafqzOXLZVZFTQM8046-33-65 17:38:008.3[facility] LffawdfUYPOLVHDOE7417-35-63 17:38:000.1[facility] DblycxnNCMTHCVKKG8963-18-17 17:38:00Reported (02/18/20 12:38 PM)[facility] YhucoxmJURQSHCIVO3673-54-20 17:38:0062.2[facility] 2020-02-18 17:38:006.8[facility] AutwvxlFUPQIQOSBR8492-52-87 17:38:0026.9[facility] MnztdoyJHZDGCTGNS4517-16-41 17:38:003.6[facility] YvzvwmoUSCRZZBDMO3096-93-10 17:38:000.5[facility]orial WxrguwhHFUYSXVDKV0326-21-75 17:38:004.0[facility] Luca BFZMLPWDOA4114-86-05 17:38:001.7[facility]orial GlqfpkeHCZWTOIPQC4731-29-99 17:38:000.4 Memorial QttjzjrCFZDSRLUAV8597-77-15 17:38:000.2[facility] 2020-02-18 17:38:00Reported (02/18/20 12:38 PM)[facility] 2020-02-18 17:38:0089[facility] OordprhABGSQVDIVH5977-78-99 17:38:0012[facility] FazpencGBBRZEDAAL6211-33-57 17:38:000.79[facility] EfkximvZMWGRSGZEV0359-60-48 17:38:70162Sxcazgug Luca
[2021-07-06 10:02] LABS: Urine Blood Negative (Negative); Urine Glucose Negative (Negative); Urine Protein Negative (Negative); Urine Specific Gravity 1.025 (1.005-1.030); Urine pH 6.5 (5.0-7.0)
[2021-07-06 10:15] LABS: Urine Specific Gravity/Preg 1.025 (1.005-1.030)
--- NOTE | 2021-07-06 10:29 | EDPHYS ---
Physician Documentation [facility] Name: Trudi Villavicencio Age: 46 yrs Sex: Female : 1975 Arrival Date: 07/06/2021 Time: 09:42 Bed 18 Private MD: ED Physician Tod Blandon HPI: 07/06 15:58 This 46 yrs old Female presents to ER via Ambulatory with complaints of Back Pain. kdr 15:58 The patient presents with pain that is chronic. The symptoms are located in the low kdr back. Onset: The symptoms/episode began/occurred gradually, 3 month(s) ago. The pain does not radiate. Associated signs and symptoms: The patient has no apparent associated signs or symptoms. The problem was sustained from unknown cause. Modifying factors: The patient symptoms are alleviated by nothing, the patient symptoms are aggravated by movement. Severity of symptoms: At their worst the symptoms were mild, in the emergency department the symptoms are unchanged. The patient has experienced similar episodes in the past, chronically. The patient has been recently seen by a physician: Patient is with him to see new numerous physicians however she indicates that they are mean to her and will not see her any further. Historical: - Allergies: 09:57 Aspirin; jh5 09:57 Codeine; jh5 09:57 Topamax; jh5 09:57 topiramate; jh5 09:57 tramadol; jh5 09:53 Aspirin; tw2 09:53 Codeine; tw2 09:53 Topamax; tw2 09:53 tramadol; tw2 09:53 topiramate; tw2 - PMHx: 09:57 Asthma; bleeding ulcer; Degenerative disc disease; DGD; enlarged aorta; erosive jh5 gastritis; Fibromyalgia; Herniated disc; herniated disk; neuropathy; 09:53 Asthma; bleeding ulcer; Degenerative disc disease; Fibromyalgia; erosive gastritis; tw2 Herniated disc; herniated disk; neuropathy; enlarged aorta; DGD; - Immunization history:: Adult Immunizations up to date. - Social history:: Smoking status: Patient denies any tobacco usage or history of. ROS: 15:58 Constitutional: Negative for fever, chills, and weight loss, Eyes: Negative for injury, kdr pain, redness, and discharge, ENT: Negative for injury, pain, and discharge, Neck: Negative for injury, pain, and swelling, Cardiovascular: Negative for chest pain, palpitations, and edema, Respiratory: Negative for shortness of breath, cough, wheezing, and pleuritic chest pain, Abdomen/GI: Negative for abdominal pain, nausea, vomiting, diarrhea, and constipation, : Negative for injury, bleeding, discharge, and swelling, MS/Extremity: Negative for injury and deformity, Skin: Negative for injury, rash, and discoloration, Neuro: Negative for headache, weakness, numbness, tingling, and seizure activity. Psych: Negative for depression, anxiety, suicide ideation, homicidal ideation, and hallucinations. Exam: 18:33 Constitutional: This is a well developed, well nourished patient who is awake, alert, kdr and in no acute distress. Head/Face: Normocephalic, atraumatic. Eyes: Pupils equal round and reactive to light, extra-ocular motions intact. Lids and lashes normal. Conjunctiva and sclera are non-icteric and not injected. Cornea within normal limits. Periorbital areas with no swelling, redness, or edema. 18:33 Back: pain, that is mild, of the lumbar area and low back area, normal spinal alignment noted, CVA tenderness, is absent, vertebral tenderness, is not appreciated, muscle spasm, is not present. Vital Signs: 09:48 BP 109 / 68; Pulse 104; Resp 16; Temp 97.7; Pulse Ox 99% ; Weight 113.4 kg; Height 5 jh5 ft. 2 in. (157.48 cm); 09:48 Body Mass Index 45.73 (113.40 kg, 157.48 cm) 5 MDM: 10:28 Patient medically screened. kdr 18:33 Data reviewed: vital signs, nurses notes. Counseling: I had a detailed discussion with kdr the patient and/or guardian regarding: the historical points, exam findings, and any diagnostic results supporting the discharge/admit diagnosis, the need for outpatient follow up. 07/06 10:02 Order name: Urine Dipstick-Ancillary EDMS 07/06 10:06 Order name: Urine --Ancillary (enter results) bd Administered Medications: No medications were administered Disposition Summary: 07/06/21 10:28 Discharge Ordered Location: Home kdr Problem: an ongoing problem kdr Symptoms: are unchanged kdr Condition: Stable kdr Diagnosis - Low back pain kdr - Spinal stenosis kdr - Degenerative disc disease kdr Followup: kdr - With: Private Physician - When: 2 - 3 days - Reason: If symptoms return, Further diagnostic work-up, Recheck today's complaints, Continuance of care, Re-evaluation by your physician Discharge Instructions: - Discharge Summary Sheet kdr - Degenerative Disk Disease kdr - Chronic Back Pain, [id number] kdr - Spinal Stenosis, [id number] kdr Forms: - Medication Reconciliation Form kdr - Thank You Letter kdr Prescriptions: - Ibuprofen 800 mg Oral Tablet - take 1 tablet by ORAL route every 8 hours As needed take with food; 30 tablet; kdr Refills: 0, Product Selection Permitted - Cyclobenzaprine 10 mg Oral Tablet - take 1 tablet by ORAL route every 8 hours As needed; 16 tablet; Refills: 0, kdr Product Selection Permitted - Medrol (Flako) 4 mg Oral Tablets, Dose Pack - take 1 tablet by ORAL route as directed - follow package instructions; 1 kdr packet; Refills: 0, Product Selection Permitted Signatures: Dispatcher [employer] Tod Camarena MD MD kdr Kendal Pritchard, RN RN tw2 Luz Nichols RN RN jh5
--- NOTE | 2021-07-06 10:29 | ER ---
Nurse's Notes [facility] Name: Trudi Villavicencio Age: 46 yrs Sex: Female : 1975 Arrival Date: 07/06/2021 Time: 09:42 Bed 18 Private MD: Diagnosis: Low back pain;Spinal stenosis;Degenerative disc disease Presentation: 07/06 09:48 Chief complaint: Patient states: Complaints of back that's been going on for a while. jh5 HX of degenerative disc disease. states she has seen a orthopedic doc, a pain specialist, and has had an MRI all for this problem. Pt ambulates well independently. Coronavirus screen: Vaccine status: Patient reports receiving the 2nd dose of the covid vaccine. Client denies travel out of the [place] in the last 14 days. At this time, the client does not indicate any symptoms associated with coronavirus-19. Ebola Screen: Patient negative for fever greater than or equal to 101.5 degrees Fahrenheit, and additional compatible Ebola Virus Disease symptoms Patient denies exposure to infectious person. Patient denies travel to an Ebola-affected area in the 21 days before illness onset. Initial Sepsis Screen: Does the patient meet any 2 criteria? HR > 90 bpm. Does the patient have a suspected source of infection? No. Patient's initial sepsis screen is negative. Risk Assessment: Do you want to hurt yourself or someone else? Patient reports no desire to harm self or others. 09:48 Method Of Arrival: Ambulatory [facility] 09:48 Acuity: HOWIE 4 5 Triage Assessment: 09:57 General: Appears in no apparent distress. uncomfortable, obese, well developed, well jh5 nourished, Behavior is calm, cooperative, appropriate for age. Pain: Complains of pain in back. Musculoskeletal: Circulation, motion, and sensation intact. Capillary refill < 3 seconds, Range of motion: intact in all. Historical: - Allergies: 09:57 Aspirin; jh5 09:57 Codeine; jh5 09:57 Topamax; jh5 09:57 topiramate; jh5 09:57 tramadol; jh5 09:53 Aspirin; tw2 09:53 Codeine; tw2 09:53 Topamax; tw2 09:53 tramadol; tw2 09:53 topiramate; tw2 - PMHx: 09:57 Asthma; bleeding ulcer; Degenerative disc disease; DGD; enlarged aorta; erosive jh5 gastritis; Fibromyalgia; Herniated disc; herniated disk; neuropathy; 09:53 Asthma; bleeding ulcer; Degenerative disc disease; Fibromyalgia; erosive gastritis; tw2 Herniated disc; herniated disk; neuropathy; enlarged aorta; DGD; - Immunization history:: Adult Immunizations up to date. - Social history:: Smoking status: Patient denies any tobacco usage or history of. Screenin:59 Abuse screen: Denies threats or abuse. Denies injuries from another. Nutritional [facility] screening: No deficits noted. Tuberculosis screening: No symptoms or risk factors identified. Fall Risk None identified. Vital Signs: 09:48 BP 109 / 68; Pulse 104; Resp 16; Temp 97.7; Pulse Ox 99% ; Weight 113.4 kg; Height 5 [facility] ft. 2 in. (157.48 cm); 09:48 Body Mass Index 45.73 (113.40 kg, 157.48 cm) [facility] ED Course: 09:42 Patient arrived in ED. mr 09:57 Triage completed. 5 09:57 Tod Blandon MD is Attending Physician. kdr 09:58 Arm band placed on. tw2 09:59 Patient has correct armband on for positive identification. Call light in reach. Side [facility] rails up X 1. 10:05 Bed in low position. Pulse ox on. NIBP on. 5 10:43 Luz Nichols, RN is Primary Nurse. 5 10:44 No provider procedures requiring assistance completed. Patient did not have IV access [facility] during this emergency room visit. Administered Medications: No medications were administered Outcome: 10:28 Discharge ordered by . kdr 10:44 Discharged to home ambulatory. 5 10:44 Condition: good 10:44 Discharge instructions given to patient, Instructed on discharge instructions, follow up and referral plans. medication usage, safety practices, Demonstrated understanding of instructions, follow-up care, medications, Prescriptions given X 3. 10:45 Patient left the ED. [facility] Signatures: Tod Blandon MD MD kdr Rivera, Mary Kendal Pritchard, RN RN [facility] Mely Rodriguez [facility] Luz Nichols, BECK RN [facility]
[2021-07-06 10:54] VITALS: BP 109/68; TEMP 97.7; O2SAT 99
== END 2021-07-06 10:45 | disposition home or self-care (01) ==
LOC: ER 09:40
DX: M48.061 Spinal stenosis, lumbar region without neurogenic claudication (principal); M51.36 Other intervertebral disc degeneration, lumbar region; Z88.5 Allergy status to narcotic agent; Z88.6 Allergy status to analgesic agent; Z88.8 Allergy status to other drugs, medicaments and biological substances
CPT/HCPCS: 81003; 81025; 99283

== ENCOUNTER 2021-10-10 16:00 | Emergency (ER) | payer SELFPAY ==
--- OUTSIDE RECORDS SUMMARY | 2021-10-10 16:07 | XMS REPORT | Continuity of Care Document ---
:1975 Author Organization [facility] t Address [address] [place] [address] Care Team Providers Name Role Phone Asked, Pcp Primary Care Physician Unavailable Jose Attending Clinician Unavailable Ash PERES Attending Clinician Unavailable Anna PRITCHETT Attending Clinician Unavailable Anna Pritchett DO Attending Clinician DILLON ALARCON Attending Clinician Unavailable Wilder Gray PA-C Attending Clinician Dillon Alarcon MD Attending Clinician ROCÍO PRUETT Attending Clinician Unavailable Ash Peres MD Attending Clinician Estela WOOD Attending Clinician Unavailable ALANNAH Attending Clinician Unavailable Alis OLSON Attending Clinician Unavailable JACQUELINE Attending Clinician Unavailable BRITTNEY Attending Clinician Unavailable CHRISTIANNE, J Attending Clinician Unavailable MARKEL Attending Clinician Unavailable Alis Cervantes Attending Clinician Doctor Unassigned, Name Attending Clinician Unavailable Ash PERES Admitting Clinician Unavailable Payers Payer Name Policy Type Policy Number Effective Date Expiration Date S ai [employer] [place] - [id number] 2020 00:00:00 OUT OF STATE BCBS 2 [id number] 2021 00:00:00 Problems Condition Condition Condition Status [...] f medial medial 00:00: g of this [place] meniscus meniscus 00 note Medica l of left of left might be Branch knee as knee as different current current from the injury, injury, original. initial initial Added encounter encounter automatic ally from request for surgery [id number] Secondary Secondary Disease Active Overview: Univers oligomenor oligomenor 4-08 Formattin ity of pete pete 00:00: g of this [place] 00 note Medical might be Branch different from the original. 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 Problem 02/28/2020 reports reaction from [facility] No known No known Disease Metho di active active st problems problems Hospit a l Asthma Problem Active 2021-04-29 Memor ia (disorder) 21:40:08 l Asthma Louise (disorder) Active Problem 04/29/2021 [facility] Gastritis Problem Active 2021-04-29 Me moria (disorder) 21:40:08 l Luca Gastritis (disorder) Active Problem 04/29/2021 [facility] Hypertensi Problem Active 2021-04-29 M emoria ve 21:40:08 l disorder, Luca systemic Hypertensi arterial ve (disorder) disorder, systemic arterial (disorder) Active Problem 04/29/2021 [facility] Hypothyroi Problem Active 2021-04-29 M emoria dism 21:40:08 l (disorder) Burak n Hypothyroi dism (disorder) Active Problem 04/29/2021 [facility] Migraine Problem Active 2021-04-29 Mem oria (disorder) 21:40:08 l Migraine Burak n (disorder) Active Problem 04/29/2021 [facility] Morbid Problem Active 2021-04-29 Memor ia obesity 21:40:08 l (disorder) Morbid Herm mckenna obesity (disorder) Active Problem 04/29/2021 [facility] 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 21:40:08 l (disorder) 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) Active Problem 04/29/2021 [facility] Hemangioma Problem Active 2021-04-29 M emoria of 21:40:08 l intracrani Burak n al Hemangioma structure of (disorder) intracrani al structure (disorder) Active Problem 04/29/2021 [facility] Ankle pain Problem Active 2021-04-29 M emoria (finding) 21:40:08 l Ankle Luca pain (finding) Active Problem 04/29/2021 [facility] Paresthesi Problem Active 2021-04-29 M emoria a 21:40:08 l (finding) Louise Paresthesi a (finding) Active Problem 04/29/2021 [facility] Lumbar Problem Active 2021-04-29 Memor ia radiculopa 21:40:08 l thy Lumbar Luca (disorder) radiculopa thy (disorder) Active Problem 04/29/2021 [facility] Peripheral Problem Active 2021-04-29 M emoria nerve 21:40:08 l disease Luca (disorder) Peripheral nerve disease (disorder) Active Problem 04/29/2021 [facility] Acid Problem Active 2020-02-28 Memor ia reflux 04:01:02 l (finding) Acid Louise reflux (finding) Active Problem 02/28/2020 [facility] Allergy [...] Luca Neuropathy (disorder) Active Problem 02/28/2020 [facility] Osteochond Osteochond Problem Active U nivers [...] nondisplac nondisplac it y of ed ed [place] fracture fracture Physic i of dome of of dome of an s left talus left talus with with routine routine healing, healing, subsequent subsequent encounter encounter Right calf Right calf Problem Active U nivers pain pain ity of [place] Physici ans Pain of Pain of Problem Active Univers left calf left calf ity of [place] Physici ans Edema, Edema, Problem Active Univers lower lower [place] of extremity [place] Plantar Plantar Problem Active Univers fasciitis fasciitis ity of [place] Physici ans Left ankle Left ankle Problem Active U nivers pain pain ity of [place] Physici ans Fibromyalg Fibromyalg Disease Active U nivers ia ia ity of [facility] Branch Disc Disc Disease Active Univers disease, disease, ity of degener[place] degener[place] ve, lumbar ve, lumbar Me dical or or Branch lumbosacra lumbosacra l l Cervical Cervical Disease Active Unive rs herniated herniated ity of disc disc [facility] Lumbar Lumbar Disease Active Univers herniated herniated ity of disc disc [facility] History of Past Illness Condition Condition Condition Status Onset Resolution Last Treating Co mments Source Name Details Category Date Date Treatment Clinician Date Nondisplac Problem 2020-02-28 2020-02-28 Memoria ed dome 02-25 04:01:02 04:01:02 l fracture 17:00: Louise of left Nondisplac 00 talus, ed dome initial fracture encounter of left for closed talus, fracture initial encounter for closed fracture 0 02/28/2020 [facility] Allergies, Adverse Reactions, Alerts Allergy Allergy Status Severity Reaction(s) Onset Inactive Treating Comm ents Source Name Type Date Date Clinician Fd&C Propensi Active Nausea and Agueda ey Yellow ty to Vomiting 03-31 Seybold #10 adverse 00:00: Aluminum reaction 00 [place]-Top s iramate Aspirin Propensi Active Other - See Yung Un george ty to comments 09-06 Syndrome ity of adverse 00:00: [place] reaction 00 Medical s Branch Codeine Propensi Active Nausea Univers ty to and/or -22 ity of adverse Vomiting 00:00: [place] reaction 00 Medical s Branch ASPIRIN DRUG Active Other-Cmnt Unive rs INGREDI ity of 00:00: [place] 00 Medical Branch CODEINE DRUG Active N/V Univers INGREDI 09-06 ity of 00:00: Medical Branch TOPIRAMA DRUG Active N/V Univers TE INGREDI 09-06 ity of 00:00: Medical Branch Topirama Propensi Active Nausea and Other Ke lsey te ty to Vomiting 09-06 reaction( Seybo ld adverse 00:00: s): reaction 00 Unknown s Topirama Propensi Active Other (See Other Me thodi te ty to Comments) 09-06 reaction( st adverse 00:00: s): Hospita reaction 00 Unknown l s to drug Tramadol Propensi Active Rosi ty to 02-05 Seybold adverse 00:00: reaction 00 s Calcium Propensi Active Other Other Rosi Acetylsa ty to 02-05 reaction( Seybo ld licylate adverse 00:00: s): Maciel reaction 00 syndrome, s UnknownRe yes Syndrome Yung Syndrome Yung Syndrome Codeine Propensi Active Nausea and Other Sae sey ty to Vomiting 02-05 reaction( Seybo ld adverse 00:00: s): reaction 00 Unknown s Codeine Propensi Active Other (See Other Met hodi ty to Comments) 02-05 reaction( st adverse 00:00: s): Hospita reaction 00 Unknown l s to drug Tramadol Propensi Active Other (See Me thodi ty to Comments) 02-05 st adverse 00:00: Hospita reaction 00 l s to drug Aluminum Propensi Active Other (See Other Me thodi Aspirin ty to Comments) 02-05 reaction( st adverse 00:00: s): Maciel Hospita reaction 00 syndrome, l s to UnknownRe drug yes Syndrome Yung Syndrome Yung Syndrome codeine codeine Active Memoria sulfate sulfate l Luca aspirin aspirin Active Memoria l Louise Topamax Topamax Active Memoria l Louise traMADol traMADol Active Memori a l [place] aspirin Allergy Active Univers to drug ity of (finding [place] ) Physici ans codeine Allergy Active Univers to drug ity of (finding [place] ) Physici ans Family History Family Member Diagnosis Comments Start Date Stop Date Source Natural father Diabetes [facility] Maternal aunt [facility] Maternal grandmother [facility] Maternal grandmother St[facility] Natural mother Heart attack [facility] [place] [facility] Natural mother Heart disease [facility] Social History Social Habit Start Date Stop Date Quantity Comments Source Exposure to Not sure Rosi armendariz SARS-CoV-2 (event) Tobacco use and 2021-05-19 2021-05-19 Smokeless tobacco Me [facility]odist exposure 00:00:00 00:00:00 non-user Hospital Alcohol intake 2021-05-19 2021-05-19 Lifetime [facility] 00:00:00 00:00:00 non-drinker Hospital (finding) Sex Ass[birth year] At [birth year] [facility] 00:00[facility]00 [facility] Smoking Status Start Date Stop Date Source Never smoker [facility] Branch Medications Ordered Filled Start Stop Current Ordering Indication Dosage Frequency Signature Comments Components Source Medication Medication Date Date Medication? Clinician (SIG) Name Name mupirocin 2020-07 Yes Apply Methodi (BACTROBAN) 07-[address] 2 % 10:54: Hospita ointment 00 l nitrofurant 2020-07 Yes nitrofuran Methodi oin, 07-[address] macrocrysta 10:54: monohydrat Hospita l-monohydra 00 e/macrocry l te, stals 100 (MACROBID) mg capsule 100 MG capsule doxycycline 2020-07 Yes doxycyclin Methodi (VIBRA-TABS 07-[address] ) 100 MG 10:53: 100 mg Hospita tablet 59 tablet l eletriptan 2020-07 Yes eletriptan M ethodi (RELPAX) 40 07-[address] MG tablet 10:53: tablet Hospit a 59 l flu vac qv 2020-07 Yes Flublok Meth jason 2019,18yr 07-[address] up,rc,PF, 10:53: Hos helga (Flublok 59 (PF) 180 l Quad mcg ([id number], mcg x PF,) 180 4)/0.5 mL mcg (45 mcg IM syringe x 4)/0.5 mL PHARMACIST syringe ADMINISTER ED IMMUNIZATI ON ADMINISTER ED AT TIME OF DISPENSING bromphenira 2020-07 Yes bromphenir Methodi mine-pseudo 1-04 amine-pseu st eph-DM 10:53: doephedrin Hospi ta 2-30-10 58 e-DM 2 l mg/5 mL mg-30 syrup mg-10 mg/5 mL oral syrup budesonide 2020-07 Yes 1mg Inhale 1 Met hodi (PULMICORT) 1-[address] 1 mg/2 mL 10:53: Hospita nebulizer 58 l solution cyclobenzap 2020-07 Yes Method i rine 0-21 st (FLEXERIL) 00:00: Hospita 10 mg 00 l tablet Cyclobenzap 2020-07- 1{tbl} Take 1 K elsey rine HCl 10 0-14 10-14 tablet by Se ybold MG oral 11:05: 00:00 mouth at Tablet 06 :00 bedtime as needed Valsartan-h 2020-07 Yes 1{tbl} Take 1 Ke lsey ydroCHLOROt 0-14 tablet by Sey bold hiazide 09:58: mouth 80-12.5 MG 32 [...] 32 on daily Suspension Cyclobenzap 2020-07 Yes [id number] 10mg Take 1 Rosi rine HCl 10 0-14 tablet (10 Se ybold MG oral 00:00: mg total) Tablet 00 by mouth at bedtime as needed amitriptyli 2020-07 Yes Method i ne (ELAVIL) 0-04 st 75 MG 00:00: Hospita tablet 00 l medroxyPROG 2020-07 Yes Method i ESTERone 0-04 st (PROVERA) 00:00: Hospita 10 MG 00 l tablet Euthyrox 2020-07 Yes Rosi 150 MCG 0-04 Seybold oral Tablet 00:00: 00 ubrogepant 2020-0 Yes 100 mg = 1 M emoria 100 MG Oral 9-10 tab, PO, l Tablet 21:15: PRN, PRN Louise [Ubrelvy] 00 Other -See Comment, X 30 day, # 10 tab, 1 Refill(s), Pharmacy: [id number], For Migraine. May repeat dose after 2 hours. Max dose 200 mg/ 24 hours, 152.4, cm, 03/16/21 8:31:00 CDT, Height, 112.727, kg, 03/16/21 8... ubrogepant Yes 100 mg = 1 M ethodi (Ubrelvy) 9-10 tab, PO, st 100 mg 00:00: PRN, PRN Hospita tablet 00 Other -See l Comment, X 30 day, # 10 tab, 1 Refill(s), Pharmacy: [facility], For Migraine. May repeat dose after 2 hours. Max dose 200 mg/ 24 hours, 152.4, cm, 03/16/21 8:31:00 CDT, Height, 112.727, kg, 03/16/21 8... ubrogepant 2020- No 100 mg = 1 M emoria 100 MG Oral 9-03 tab, PO, l Tablet 16:30: PRN, PRN Louise [Ubrelvy] 00 Other -See Comment, X 30 day, # 10 tab, 1 Refill(s), Pharmacy: [facility], For Migraine. May repeat dose after 2 hours. Max dose 200 mg/ 24 hours, 152.4, cm, 03/16/21 8:31:00 CDT, Height, 112.727, kg, 03/16/21 8:... amitriptyli 2020-0 Yes = 1 tab, Me moria ne 75 mg 9- PO, l oral tablet 23:57: Bedtime, # Louise 00 30 ea, 5 Refill(s), Pharmacy: [facility], 152.4, cm, 03/16/21 8:31:00 CDT, Height, 112.727, kg, 03/16/21 8:31:00 CDT, Weight Amitriptyli 2020-0 Yes amitriptyl Rosi ne HCl 75 9-01 ine 75 mg Seybo ld MG oral 00:00: tablet Tablet 00 ubrogepant No 100 mg = 1 M emoria 100 MG Oral 8-23 tab, PO, l Tablet 21:26: PRN, PRN Luca [Ubrelvy] 00 Other -See Comment, X 30 day, # 10 tab, 1 Refill(s), Pharmacy: [facility], For Migraine. May repeat dose after 2 hours. Max dose 200 mg/ 24 hours, 152.4, cm, 02/01/21 13:49:00 CDT, Height, 116.818, kg, 02/01/21 1... ibuprofen 2020-0 Yes Methodi (ADVIL) 600 8-04 st MG tablet 00:00: Hospita 00 l Ibuprofen 2020-0 Yes Rosi 600 MG oral 8-04 Seybold Tablet 00:00: 00 methylPREDN 2020-0 Yes [id number] 84mg Take 21 Univers ISolone 7-30 tablets by ity of (MEDROL, 00:00: mouth [place] GENARO,) 4 mg 00 SEE-INSTRU Med ical tablets CTIONS. Branch follow package directions methylPREDN 2020-0 Yes [id number] 84mg Take 21 Univers ISolone 7-30 tablets by ity of (MEDROL, 00:00: mouth [place] GENARO,) 4 mg 00 SEE-INSTRU Med ical tablets CTIONS. Branch follow package directions methylPREDN 2020-0 Yes [id number] 84mg Take 21 Univers ISolone 7-30 tablets by ity of (MEDROL, 00:00: mouth [place] GENARO,) 4 mg 00 SEE-INSTRU Med ical tablets CTIONS. Branch follow package directions medroxyPROG 1-0 Yes [id number] 20mg Take 2 Univers ESTERone 5-13 tablets by ity o f (PROVERA) 00:00: mouth [place] 10 mg 00 daily. Medical tablet Branch medroxyPROG 2020-0 Yes [id number] 20mg Take 2 Univers ESTERone 5-13 tablets by ity o f (PROVERA) 00:00: mouth [place] 10 mg 00 daily. Medical tablet Branch medroxyPROG Yes [id number] 20mg Take 2 Univers ESTERone 5-13 tablets by ity o f (PROVERA) 00:00: mouth [place] 10 mg 00 daily. 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, Weight Rizatriptan Yes rizatripta Rosi Benzoate 5 3-12 n 5 mg Seybold MG oral 00:00: tablet Tablet 00 TAKE 1 TABLET BY MOUTH ONCE DAILY NEEDED FOR HEADACHE MIGRAINE rizatriptan Yes 5 mg = 1 Me moria 5 MG Oral 9-15 tab, PO, l Tablet 22:44: ONCE, PRN Burak n [Maxalt] for migraine headache, # 9 tab, 1 Refill(s), Pharmacy: [facility], 152.4, cm, 01/15/20 15:04:00 CDT, Height, 115.455, kg, 01/15/20 15:04:00 CDT, Weight Misc 0 No 900 mL, Memoria Medication 02-25 Soln-IV, l 15:27: IV, Once, first dose 02/26/20 10:27:00 CDT, stop date 02/26/20 10:27:00 CDT LR 1,000 mL 0 No 1,000 mL, M emoria 8- IV, 75 l 15:20: mL/hr, start date 02/26/20 10:20:00 CDT, 2.14, m2 Saline Lock No 10 mL, Lev trupti Flush 02-25 Soln, IV l 15:20: Push, As Indicated PRN for flush, first dose 02/26/20 10:20:00 CDT Dilaudid 2020-0 No 0.5 mg = Memor ia 8-13 0.5 mL, l 15:20: Injection, Luca 00 IV Push, q10min PRN for pain severe (7-10), first dose 02/26/20 10:20:00 CDT Demerol HCl 2020-0 No 12.5 mg = M emoria 8-13 0.5 mL, l 15:20: Injection, Luca 00 IV Push, Once PRN for shivers, first dose 02/26/20 10:20:00 CDT Albuterol 2020-0 No 2.5 mg = 3 Me moria 0.83 MG/ML 8-13 mL, Soln, l Inhalant 15:20: NEB, Once Herm mckenna Solution 00 PRN for wheezing, first dose 02/26/20 10:20:00 CDT Ondansetron 2020-0 No 4 mg = 2 Me moria 8-13 mL, l 15:20: Injection, Luca 00 IV Push, q15min PRN for nausea, order duration: 2 doses, first dose 02/26/20 10:20:00 CDT, stop date Limited # of times Promethazin 2020-0 No 12.5 mg = Raeann emoria e 8-13 0.5 mL, l 15:20: Injection, IM, Once PRN for vomiting, first dose 02/26/20 10:20:00 CDT fentaNYL 2020-0 No 25 mcg = Memor ia 8-13 0.5 mL, l 14:50: Injection, Louise 00 IV, Once, first dose 02/26/20 9:50:00 CDT, stop date 02/26/20 9:50:00 CDT fentaNYL 2020-0 No 25 mcg = Memor ia 8-13 0.5 mL, l 14:16: Injection, Louise 00 IV, Once, first dose 02/26/20 9:16:00 CDT, stop date 02/26/20 9:16:00 CDT Misc 2020-0 No 1,000 mL, Memoria Medication 8-13 Soln-IV, l 13:23: IV, Once, 00 first dose 02/26/20 8:23:00 CDT, stop date 02/26/20 8:23:00 CDT ceFAZolin 2020-0 No 2 gm, Memoria 8-13 Soln-IV, l 12:53: IV Louise Piggyback, Once, first dose 02/26/20 7:53:00 CDT, stop date 02/26/20 7:53:00 CDT ondansetron 2020-0 No 4 mg = 2 Me moria 8-13 mL, l 12:53: Injection, Luca 00 IV, Once, first dose 02/26/20 7:53:00 CDT, stop date 02/26/20 7:53:00 CDT dexamethaso 2020-0 No 8 mg = 2 Me moria ne 8-13 mL, l 12:53: Injection, Louise IV, Once, first dose 02/26/20 7:53:00 CDT, stop date 02/26/20 7:53:00 CDT ketorolac 2020-0 No 30 mg = 1 Mem oria 8-13 mL, l 12:53: Injection, Louise 00 IV, Once, first dose 02/26/20 7:53:00 [...] Lev trupti 8-13 mL, l 12:34: Injection, Louise 00 IV, Once, first dose 02/26/20 7:34:00 [...] gm, Memoria 8-13 Soln-IV, l 12:00: IV Piggyback, Once, infuse over 30 minutes, first dose 02/26/20 7:00:00 CDT, stop date 02/26/20 7:00:00 CDT, patient weight 50-120 kg, Prophylaxi s LR 1,000 mL 2020-0 No 1,000 mL, M emoria 8-13 IV, 30 l 11:28: mL/hr, start date 02/26/20 6:28:00 CDT, 2.14, m2 Lidocaine 2020-0 No 0.2 mL, Memor ia 2% 0.2 mL 02-25 Injection, l IV Start 11:28: Subcutaneo [facility] [[facility]] 00 , Once PRN for other (see [...] tabs, l oral tablet 17:04: Oral, qHS, 00 0 Refill(s), sleep levothyroxi 2020-0 Yes [...] Oral 8-05 tabs, l Tablet 17:04: Oral, Louise 00 Daily, 0 Refill(s), joint pain pantoprazol 2020-0 Yes pantoprazo Methodi e 8-[address] (PROTONIX) 00:00: tablet,del H ospita 40 MG EC 00 ayed l tablet release TAKE 1 TABLET BY MOUTH ONCE DAILY amitriptyli 2020-0 Yes = 1 tab, Me moria ne 75 mg 7-02 PO, l oral tablet 20:24: Bedtime, # Luca 00 30 ea, 5 Refill(s), Pharmacy: [facility], 152.4, cm, 01/15/20 15:04:00 CDT, Height, 115.455, kg, 01/15/20 15:04:00 CDT, Weight rizatriptan 2020-0 Yes 5 mg = 1 Me moria 5 MG Oral 7-02 tab, PO, l Tablet 20:24: ONCE, PRN Burak n [Maxalt] 00 for migraine headache, # 9 tab, 1 Refill(s), Pharmacy: [facility], 152.4, cm, 01/15/20 15:04:00 CDT, Height, 115.455, kg, 01/15/20 15:04:00 CDT, Weight rizatriptan 2020-0 Yes 5 mg = 1 Me moria 5 MG Oral 5-19 tab, PO, l Tablet 21:06: ONCE, PRN Burak n [Maxalt] 00 for migraine headache, # 9 tab, 1 Refill(s), Pharmacy: [facility] amitriptyli 2020-0 Yes = 1 tab, Me moria ne 75 mg 5-19 PO, l oral tablet 21:06: Bedtime, # Louise 00 30 ea, 1 Refill(s), Pharmacy: [facility] loratadine Yes loratadine M ethodi (CLARITIN) 9-[address] 10 mg 00:00: tablet Hospita tablet 00 TAKE 1 l TABLET BY MOUTH ONCE DAILY sod Yes [id number] 1{bottl Use 1 Unive rs chlor-bicar 9-08 e} Bottle in ity of b-squeez 00:00: each [place] bottle 00 nostril 2 Medical (NEILMED (two) Branch SINUS RINSE times COMPLETE) daily. Use pkdv in hot shower 1 hour before bedtime loratadine Yes [id number] 10mg Take 1 U nivers 10 mg 9-08 tablet by ity of tablet 00:00: mouth 00 daily. Medical Branch sod Yes [id number] 1{bottl Use 1 Unive rs chlor-bicar 9-08 e} Bottle in ity of b-squeez 00:00: each [place] bottle 00 nostril 2 Medical (NEILMED (two) Branch SINUS RINSE times COMPLETE) daily. Use pkdv in hot shower 1 hour before bedtime loratadine Yes [id number] 10mg Take 1 U nivers 10 mg 9-08 tablet by ity of tablet 00:00: mouth [place] 00 daily. Medical Branch sod Yes [id number] 1{bottl Use 1 Unive rs chlor-bicar 9-08 e} Bottle in ity of b-squeez 00:00: each [place] bottle 00 nostril 2 Medical (NEILMED (two) Branch SINUS RINSE times COMPLETE) daily. Use pkdv in hot shower 1 hour before bedtime loratadine Yes [id number] 10mg Take 1 U nivers 10 mg 9-08 tablet by ity of tablet 00:00: mouth [place] daily. Medical Branch amitriptyli Yes 75 mg = 1 M emoria ne 75 mg 8-22 tab, PO, l oral tablet 18:27: Bedtime, # Luca 00 30 tab, 1 Refill(s), Pharmacy: [facility] rizatriptan Yes 5 mg = 1 Me moria 5 MG Oral 8-02 tab, PO, l Tablet 20:24: ONCE, PRN Burak n [Maxalt] 09 for migraine headache, # 9 tab, 1 Refill(s), Pharmacy: [facility] thiamine Yes 100 mg = 1 Mem oria 100 mg oral 8-02 tab, PO, l tablet 20:23: Daily, X Luca 17 30 day, # 30 tab, 3 Refill(s), Pharmacy: [facility] cyanocobala Yes 1,000 Memor ia min 1000 8-02 microgram l mcg 20:23: = 1 tab, Luca sublingual 13 SL, Daily, tablet # 30 tab, 2 Refill(s), Pharmacy: [facility] amitriptyli Yes 50 mg = 1 M emoria ne 50 mg 8-02 tab, PO, l oral tablet 20:23: Bedtime, # Louise 09 30 tab, 1 Refill(s), Pharmacy: [facility] rizatriptan Yes rizatripta Methodi (MAXALT) 5 8-[address] MG tablet 00:00: tablet Hospit a 00 TAKE 1 l TABLET BY MOUTH ONCE DAILY NEEDED FOR HEADACHE MIGRAINE rizatriptan No 5 mg = 1 Me moria 5 MG Oral 7-13 tab, PO, l Tablet 01:53: Daily, PRN Antonia nn [Maxalt] 00 for migraine headache, X 6 day, # 6 tab, 1 Refill(s), Pharmacy: [facility] amitriptyli No 50 mg = 1 M emoria ne 50 mg 7-13 tab, PO, l oral tablet 01:53: Bedtime, # Luca 00 30 tab, 1 Refill(s), Pharmacy: [facility] frovatripta No 2.5 mg = 1 Memoria n 2.5 mg 6-27 tab, PO, l oral tablet 15:37: Daily, PRN Louise 00 for migraine headache, May repeat another dose at least 2 hours after the first dose, X 3 day, # 9 tab, 2 Refill(s), Pharmacy: [facility] eletriptan No See Memoria 40 MG Oral 6-25 Instructio l Tablet 23:35: ns, PO, Luca [Relpax] 00 Take 1-2 tabs orally at onset of migraine, may repeat dose once in 2 hours, X 3 day, # 6 tab, 1 Refill(s), Pharmacy: [facility] amitriptyli Yes 25 mg = 1 M emoria ne 25 mg 6-11 tab, PO, l oral tablet 21:16: Bedtime, # Louise 00 30 tab, 3 Refill(s), Pharmacy: [facility] cyanocobala Yes 1,000 Memor ia min 1000 6-07 microgram l mcg 19:39: = 1 tab, Luca sublingual 00 SL, Daily, tablet # 30 tab, 2 Refill(s), Pharmacy: [facility] thiamine Yes 100 mg = 1 Mem oria 100 mg oral 5-17 tab, PO, l tablet 18:13: Daily, X Louise 00 30 day, # 30 tab, 3 Refill(s), Pharmacy: [facility] amitriptyli Yes 10 mg = 1 M emoria ne 10 mg 5-10 tab, PO, l oral tablet 20:44: Bedtime, # Luca 00 30 tab, 3 Refill(s), Pharmacy: [facility] gabapentin Yes 300 mg = [...] Daily, # 30 tab, 0 Refill(s) levothyroxi Yes 50 Method i ne 5-[address] (SYNTHROID) 00:00: = 1 tab, Ho spita 50 mcg 00 PO, Daily, l tablet # 30 tab, 0 Refill(s) levothyroxi Yes 50ug Take 1 Univ ers ne 50 mcg 4-30 tablet by ity o f tablet 00:00: mouth [place] 00 every Medical morning. Branch levothyroxi Yes 50ug Take 1 Univ ers ne 50 mcg 4-30 tablet by ity o f tablet 00:00: mouth [place] 00 every Medical morning. Branch levothyroxi Yes 50ug Take 1 Univ ers ne 50 mcg 4-30 tablet by ity o f tablet 00:00: mouth [place] 00 every Medical morning. Branch escitalopra Yes 10mg Take 1 Univ [...] tablet 00 daily. Medical Branch bisoprolol Yes 1 tablet Met hodi (ZEBETA) 10 1-[address] MG tablet 00:00: Once a day Ho spita 00 l bisoprolol Yes [id number] 10mg Take 1 U nivers 10 mg 1-11 tablet by ity of tablet 00:00: mouth [place] 00 daily. Medical Branch cyclobenzap Yes [id number] 10mg Take 1 Univers rine 10 mg 1-11 tablet by ity of tablet 00:00: mouth at [place] 00 bedtime. Medical Branch bisoprolol Yes [id number] 10mg Take 1 U nivers 10 mg 1-11 tablet by ity of tablet 00:00: mouth [place] 00 daily. Medical Branch cyclobenzap Yes [id number] 10mg Take 1 Univers rine 10 mg 1-11 tablet by ity of tablet 00:00: mouth at [place] 00 bedtime. Medical Branch bisoprolol Yes [id number] 10mg Take 1 U nivers 10 mg 1-11 tablet by ity of tablet 00:00: mouth [place] 00 daily. Medical Branch cyclobenzap Yes [id number] 10mg Take 1 Univers rine 10 mg 1-11 tablet by ity of tablet 00:00: mouth at [place] 00 bedtime. Medical Branch albuterol 2015-07 Yes 3 ml as Metho di (ACCUNEB) 1-[address] 2.5 mg /3 00:00: Hospita mL (0.083 00 l %) nebulizer solution albuterol 2015-07 Yes Univers 2.5 mg /3 [...] tablet 00 evening. Medical Branch fluticasone Yes fluticason Methodi propionate 9-[address] (FLONASE) 00:00: propionate Ho spita 50 00 50 l mcg/actuati mcg/actuat on nasal ion nasal spray spray,susp ension fluticasone Yes [facility] 50 9-02 ity of mcg/actuati 00:00: [place] on nasal 00 Medical spray Branch fluticasone Yes Univer s 50 9-02 ity of mcg/actuati 00:00: [place] on nasal 00 Medical spray Branch fluticasone Yes [facility] 50 9-02 ity of mcg/actuati 00:00: [place] on nasal 00 Medical spray Branch Levothyroxi Levothyroxi Yes M.D. U nivers ne Sodium ne Sodium ity o f TABS TABS [place] [facility] Meloxicam Meloxicam Yes M.D. Unive rs TABS TABS ity of [place] [facility] Amitriptyli Amitriptyli Yes M.D. U nivers ne HCl TABS ne HCl TABS i ty of [place] [facility] Immunizations Ordered Filled Immunization Date Status Comments [facility] e Immunization Name Name Covid-19 Vaccine 2021-03-31 Completed Rosi esposito (Moderna), 00:00:00 Mrna-lnp, Shade Protein, Pf, 100 Mcg/0.5ml,IM Covid-19 Vaccine 2021-03-02 Completed Rosi esposito (Moderna), 00:00:00 Mrna-lnp, Shade Protein, Pf, 100 Mcg/0.5ml,IM TDAP 2016-07-24 Completed [facility] 00:00:00 [facility] Influenza Virus 2016-07-24 Completed Universit y of Vaccine Quad IM 3+ 00:00:00 [facility] TDAP 2016-07-24 Completed [facility] 00:00:00 [facility] Influenza Virus 2016-07-24 Completed Universit y of Vaccine Quad IM 3+ 00:00:00 [facility] TDAP 2016-07-24 Completed [facility] 00:00:00 [facility] Influenza Virus 2016-07-24 Completed Universit y of Vaccine Quad IM 3+ 00:00:00 [facility] Influenza Virus 2016-07-24 Completed Rosi solano Vaccine, No 00:00:00 Preserv, age 6 months and up Tdap- (Boostrix, 2016-07-24 Completed Rosi esposito Adacel) 00:00:00 Tdap- (Boostrix, 2010-01-18 Completed Rosi esposito Adacel) 00:00:00 Vital Signs Vital Name Observation Time Observation Value Comments Source Systolic blood 2021-10-10 20:19:00 141 mm[Hg] Univer sity of pressure [facility] Diastolic blood 2021-10-10 20:19:00 98 mm[Hg] Unive rsity of pressure [facility] Heart rate 2021-10-10 20:19:00 109 /min Universi [facility] Body temperature 2021-10-10 20:19:00 36.94 Sole Univ ersity of [facility] Respiratory rate 2021-10-10 20:19:00 18 /min [facility] Body height 2021-10-10 20:19:00 160 cm [facility] Body weight 2021-10-10 20:19:00 115.667 kg [facility] BMI 2021-10-10 20:19:00 45.17 kg/m2 [facility] Oxygen saturation in 2021-10-10 20:19:00 97 /min [facility] Arterial blood by [facility] Pulse oximetry Branch Systolic blood 2021-04-28 14:43:00 100 mm[Hg] Rosi Weber pressure Diastolic blood 2021-04-28 14:43:00 60 mm[Hg] Brent maria Seybfiona pressure Heart rate 2021-04-28 14:43:00 112 /min Rosi ballardboshabnam Body temperature 2021-04-28 14:43:00 37 Sole Agueda ballard Seybfiona Respiratory rate 2021-04-28 14:43:00 16 /min Agueda Weber Body height 2021-04-28 14:43:00 157.5 cm Rosi ballardboshabnam Body weight 2021-04-28 14:43:00 113.853 kg Rosi ballardbold BMI 2021-04-28 14:43:00 45.91 kg/m2 Rosi S nellieboshabnam Systolic blood 2021-02-11 13:34:00 127 mm[Hg] Univer sity of [facility] Diastolic blood 2021-02-11 13:34:00 87 mm[Hg] Unive rsity of [facility] Heart rate 2021-02-11 13:34:00 100 /min [facility] Body height 2021-02-11 13:34:00 160 cm [facility] Body weight 2021-02-11 13:34:00 115.667 kg [facility] BMI 2021-02-11 13:34:00 45.17 kg/m2 [facility] Systolic (mm Hg) 2021-03-16 13:19:00 Lev rial Louise Diastolic (mm Hg) 2021-03-16 13:19:00 Mem orial Luca Heart Rate 2021-03-16 13:19:00 [facility] Respitory Rate 2021-03-16 13:19:00 Memori al [facility] Height 2021-03-16 13:19:00 152.4 cm [facility] Weight 2021-03-16 13:19:00 [facility] BMI Calculated 2021-03-16 13:19:00 [facility] Systolic (mm Hg) 2021-02-01 18:35:00 Lev rial Louise Diastolic (mm Hg) 2021-02-01 18:35:00 Mem orial [facility] Heart Rate 2021-02-01 18:35:00 [facility] Respitory Rate 2021-02-01 18:35:00 Mem[facility] al [facility] Height 2021-02-01 18:35:00 152.4 cm [facility] Weight 2021-02-01 18:35:00 [facility] BMI Calculated 2021-02-01 18:35:00 [facility] Systolic (mm Hg) 2020-09-24 19:34:00 Lev rial Louise Diastolic (mm Hg) 2020-09-24 19:34:00 Mem orial Luca Heart Rate 2020-09-24 19:34:00 [facility] Respitory Rate 2020-09-24 19:34:00 [facility] al [facility] Height 2020-09-24 19:34:00 160.02 cm [facility] Weight 2020-09-24 19:34:00 [facility] BMI Calculated 2020-09-24 19:34:00 Memori al [facility] Respitory Rate 2020-02-26 16:32:00 Mem[facility] Systolic (mm Hg) 2020-02-26 16:32:00 Lev rial Luca Diastolic (mm Hg) 2020-02-26 16:32:00 Mem orial Luca Heart Rate 2020-02-26 16:00:00 [facility] Respitory Rate 2020-02-26 16:00:00 Memori al [facility] Systolic (mm Hg) 2020-02-26 16:00:00 Lev rial Louise Diastolic (mm Hg) 2020-02-26 16:00:00 Mem orial Louise Heart Rate 2020-02-26 15:50:00 [facility] Respitory Rate 2020-02-26 15:50:00 [facility] Systolic (mm Hg) 2020-02-26 15:50:00 Lev rial Louise Diastolic (mm Hg) 2020-02-26 15:50:00 Mem orial Luca Heart Rate 2020-02-26 15:40:00 [facility] Temperature Oral (F) 2020-02-26 15:20:00 37.0 Sole [facility] Temperature Oral (F) 2020-02-26 11:25:00 37.2 Sole [facility] Height 2020-02-26 11:25:00 158 cm [facility] Height 2020-02-18 16:59:00 158 cm [facility] Systolic blood 2020-02-02 14:39:00 134 mm[Hg] Univer sity of pressure [place] [facility] Diastolic blood 2020-02-02 14:39:00 64 mm[Hg] Unive rsity of pressure [place] [facility] Body height 2020-02-02 14:39:00 63 [in_us] [facility] Physician s Weight 2020-02-02 14:39:00 147 [lb_av] [facility] Physician s Body mass index 2020-02-02 14:39:00 26.04 kg/m2 Unive rsity of (BMI) [Ratio] [place] [facility] Heart Rate 2020-02-02 14:39:00 74 /min [facility] Physician s Systolic (mm Hg) 2020-01-15 20:04:00 Lev rial Luca Diastolic (mm Hg) 2020-01-15 20:04:00 Mem orial Luca Heart Rate 2020-01-15 20:04:00 [facility] Respitory Rate 2020-01-15 20:04:00 [facility] Height 2020-01-15 20:04:00 152.4 cm [facility] Weight 2020-01-15 20:04:00 [facility] BMI Calculated 2020-01-15 20:04:00 [facility] Systolic (mm Hg) 2019-12-02 20:40:00 Lev rial Luca Diastolic (mm Hg) 2019-12-02 20:40:00 Mem orial Louise Heart Rate 2019-12-02 20:40:00 [facility] Respitory Rate 2019-12-02 20:40:00 [facility] Height 2019-12-02 20:40:00 152.4 cm [facility] Weight 2019-12-02 20:40:00 [facility] BMI Calculated 2019-12-02 20:40:00 [facility] Weight 2019-02-14 19:40:00 [facility] BMI Calculated 2019-02-14 19:40:00 Memori al [facility] Height 2019-02-14 19:40:00 160.02 cm [facility] Respitory Rate 2019-02-14 19:40:00 [facility] Heart Rate 2019-02-14 19:40:00 [facility] Systolic (mm Hg) 2019-02-14 19:40:00 Lev rial Luca Diastolic (mm Hg) 2019-02-14 19:40:00 Mem orial Luca BMI Calculated 2018-12-24 20:38:00 Mem[facility] Weight 2018-12-24 20:38:00 [facility] Height 2018-12-24 20:38:00 157.48 cm [facility] Systolic (mm Hg) 2018-12-24 20:38:00 Lev rial Louise Diastolic (mm Hg) 2018-12-24 20:38:00 Mem orial Louise Respitory Rate 2018-12-24 20:38:00 Mem[facility] Heart Rate 2018-12-24 20:38:00 [facility] Height 2018-12-20 19:20:00 152.4 cm [facility] BMI Calculated 2018-12-20 19:20:00 [facility] Weight 2018-12-20 19:20:00 [facility] Systolic (mm Hg) 2018-12-20 19:20:00 Lev rial Luca Diastolic (mm Hg) 2018-12-20 19:20:00 Mem orial Luca Heart Rate 2018-12-20 19:20:00 [facility] Respitory Rate 2018-12-20 19:20:00 Mem[facility] Systolic (mm Hg) 2018-11-22 19:23:00 Lev rial Luca Diastolic (mm Hg) 2018-11-22 19:23:00 Mem orial Luca Respitory Rate 2018-11-22 19:23:00 [facility] Height 2018-11-22 19:23:00 157.48 cm [facility] Weight 2018-11-22 19:23:00 [facility] BMI Calculated 2018-11-22 19:23:00 Memori al [facility] Heart Rate 2018-11-22 19:23:[address] [facility] Louise Procedures Procedure Date / Time Performing Clinician Source Performed CONSENT/REFUSAL FOR 2021-10-10 20:09:22 Doctor Unassigned, [facility] DIAGNOSIS AND TREATMENT [place] [facility] MRI SPINE EXTERNAL STUDY 2021-04-29 16:16:04 Tony Gray [facility] MR Ankle wo contrast [id number] 2020-07-02 00:00:00 U [facility] Physicians [MMD] US Lower Extremity 2020-05-31 00:00:00 [facility] Venous Doppler Bilateral Physici ans Post Op Promis 29 Survey 2020-03-12 00:00:00 [facility] Physicians APPLICATION SHORT LEG 2020-02-26 13:13:00 Carissa Redman SPLINT-CALF TO FOOT [id number] (Left)<sup>1</sup> ARTHROSCOPY ANKLE 2020-02-26 13:13:[address] 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 Physicians [UTP] Ortho - Surgery 2020-02-02 00:00:00 [facility] Scheduling Physicians Cholecystectomy [facility] Breast reduction, [facility] nn bilateral Bunionectomy [facility] Carpal tunnel syndrome of Carissa Redman right wrist Plantar fasciitis of left Carissa al Luca foot History of Breast University [facility] reduction Physicians History of Carpal tunnel Univers [facility] surgery Physicians Plan of Care Planned Activity Planned Date Details Comments Source Future Scheduled 2021-08-16 Hepatitis [facility] Test 19:56:30 screening (procedure) [code = 830150767] Future Scheduled 2021-08-16 [facility] for [facility] Test 19:56:30 malignant neoplasm of cervix (procedure) [code = 126293562] Future Scheduled 2021-08-16 INFLUENZA VACCINE [facility] Test 19:56:30 [code = INFLUENZA VACCINE] Future Scheduled 2021-08-16 COVID-19 VACCINE (3 [facility] Test 19:56:30 - Booster for Moderna series) [code = COVID-19 VACCINE (3 - Booster for Moderna series)] Diagnostic Test 2020-02-02 [UTP] Ortho - [facility] Pending 00:00:00 Surgery Scheduling Physician s [code = [UTP] Ortho - Surgery Scheduling] Encounters Start End Encounter Admission Attending Care Care Encounter Source Date/Time Date/Time Type Type Clinicians Facility Department ID 2021-08-10 Outpatient Garcia, [facility] [id number] 13:49:13 Avnee [id number] [facility] 2021-08-10 Outpatient Garcia, [facility] [id number] 13:47:59 [place] [id number] [facility] 2021-08-10 Outpatient Garcia, [facility] [id number] 13:43:00 Avnee [id number] [facility] 2021-08-10 Outpatient Garcia, [facility] [id number] 13:37:06 Avnee [id number] [facility] 2021-08-10 Outpatient Garcia, [facility] [id number] 13:23:50 [place] [id number] [facility] 2021-08-10 Outpatient Garcia, [facility] [id number] 13:22:32 Avnee [id number] [facility] 2021-08-[address] [facility] [id number] 13:09:55 Avnee [id number] [facility] 2021-05-15 Outpatient R JA [facility] JOSE [id number] Univers 06:58:12 [facility]-10-10 2021-10-10 [facility] [id number] Univers 15:21:00 15:42:00 CAT rm [facility] 2021-10-10 2021-10-10 Emergency [facility] [id number] Univers 15:21:00 15:42:00 Cat DUMONT [id number] [facility] 4.2.7.2.686 [facility] [phone] [address] 2021-10-10 2021-10-10 Outpatient ROSI ALARCON [id number] Rosi 00:00:00 00:00:00 ALFONZO Seybol d 2021-09-09 2021-09-09 Outpatient ROSI ALARCON [id number] Rosi 00:00:00 00:00:00 ALFONZO Seybol d 2021-08-26 2021-08-26 Outpatient ROSI ALARCON [id number] Rosi 00:00:00 00:00:00 ALFONZO Seybol d 2021-07-05 2021-07-05 Outpatient ROSI ALARCON [id number] Rosi 00:00:00 00:00:00 ALFONZO Seybol d 2021-07-05 2021-07-05 Outpatient ROSI ALARCON [id number] Rosi 00:00:00 00:00:00 ALFONZO Seybol d 2021-06-02 2021-06-02 Outpatient ROSI ALARCON [id number] Rosi 00:00:00 00:00:00 ALFONZO Seybol d 2021-05-23 2021-05-23 Documentat Marina, 1.2.840.1 [id number] Methodi 00:00:00 00:00:00 ion Tony Hdz 71611.1.[address] 3.430.2.7 Hospit a .3.655110 l .8 2021-05-18 2021-05-18 [facility] 1.2.840.1 [id number] Methodi 12:57:38 23:59:[id number] 3.430.2.7 Hospit a .3.006989 l .8 2021-05-18 2021-05-18 Office [facility] 1.2.840.1 [id number] Methodi 12:19:03 15:18:57 Visit Tony Hdz [id number] 3.430.2.7 Hospit a .3.912840 l .8 2021-05-18 2021-05-18 [facility] 1.2.840.1 [id number] Methodi 00:00:00 00:00:00 Only Tony Hdz 22953.1.[id number] 3.430.2.7 Hospit a .3.329466 l .8 2021-05-16 2021-05-16 Outpatient ROSI ALARCON [id number] Rosi 00:00:00 00:00:00 ALFONZO Stevensol marcello 2021-05-11 2021-05-11 Outpatient ROSI ALARCON [id number] Rosi 00:00:00 00:00:00 ALFONZO Stevensol marcello 2021-05-11 2021-05-11 Outpatient ROSI ALARCON [id number] Rosi 00:00:00 00:00:00 ALFONZO Seybol d 2021-04-28 2021-04-28 Office Jered Alarcon 1.2.840.114 [id number] Rosi 09:39:43 10:09:43 Visit Alfonzo Montenegro 350.1.13.13 Se russ Brettyi 1.2.7.2.686 [id number] 2021-04-27 2021-04-27 Ambulatory nullFlavo MNA [id number] Memoria 15:15:00 15:15:00 Pre-Reg r Neurology 13 [place] 2021-04-21 2021-04-21 ambulatory [facility] [id number] [facility] 2021-04-12 2021-04-12 Outpatient [facility] [id number] [facility] 2021-04-06 2021-04-06 ambulatory [facility] [id number] [facility] 2021-03-31 2021-03-31 Outpatient [facility] [id number] [facility] 2021-03-30 2021-03-30 Outpatient [facility] [id number] [facility] 2021-03-30 2021-03-30 [facility] [id number] 2021-03-28 2021-03-28 Outpatient Scott [facility] [id number] Univers 10:30:00 10:30:00 [id number] [facility] 2021-03-28 2021-03-28 Outpatient Scott [facility] [id number] Univers 10:30:00 10:30:00 [facility] 2021-03-16 2021-03-17 Outpatient nullFlavo MNA [id number] Memoria 13:15:00 04:59:59 r Neurology 12 l Nik Segovia 2021-03-17 2021-03-17 Outpatient [facility] [id number] [facility] 2021-02-23 2021-02-23 Outpatient [facility] [id number] [facility] 2021-02-21 2021-02-21 Outpatient [facility] [id number] [facility] 2021-02-16 2021-02-16 Outpatient [facility] [id number] [facility] 2021-02-15 2021-02-15 [facility] [id number] [facility] 2021-02-11 2021-02-11 Outpatient Scott PERES [facility] [id number] Univers 08:15:00 08:56:02 [facility] 2021-02-11 2021-02-11 [facility] [id number] Univers 08:13:08 08:56:02 Visit [facility] 350.1.13.10 it of SURGICAL 4.2.7.2.686 [place] as SPECIALTI [id number] Va dical ES [address] [place] [address] 2021-02-11 2021-02-11 Outpatient Scott PERES [facility] [id number] Univers 08:15:00 08:15:00 ESTER [id number] [facility] 2021-02-10 2021-02-10 Outpatient Scott WOOD [facility] [id number] Univers 13:00:00 13:00:00 MG [id number] [facility] 2021-02-10 2021-02-10 Outpatient Scott WOOD [facility] [id number] Univers 13:00:00 13:00:00 MG [facility] 2021-02-03 2021-02-03 Outpatient Scott WOOD [facility] [id number] Univers 10:30:00 10:30:00 MG [id number] [facility] 2021-02-03 2021-02-03 [facility] [id number] Univers 10:30:00 10:30:00 GM [facility] 2021-02-01 2021-02-02 Outpatient nullFlavo MNA [id number] Memoria 18:30:00 04:59:59 r Neurology 11 l [place] 2021-01-20 2021-01-20 Outpatient [facility]MLC [facility] [id number] [facility] 2021-01-14 2021-01-14 Outpatient [facility]MLC [facility] [id number] [facility] 2020-12-23 2020-12-23 [address] [facility] [id number] Univers 10:00:00 10:00:00 DEMETRIA [facility] 2020-12-23 2020-12-23 Out[facility] [id number] Univers 09:00:00 09:00:00 WONDIFUL [id number] ity o f [facility] 2020-12-23 2020-12-23 Out[facility] [id number] Univers 09:00:00 09:00:00 WONDIFUL ity o f [facility] 2020-12-16 2020-12-16 Out[facility] [id number] Univers 10:30:00 10:30:00 MG [id number] [facility] 2020-12-16 2020-12-16 Out[facility] [id number] Univers 10:30:00 10:30:00 MG [facility] 2020-12-15 2020-12-15 Outpatient [facility] [id number] [facility] 2020-12-15 2020-12-15 Outpatient [facility] [id number] [facility] 2020-12-06 2020-12-06 Out[facility] [id number] Univers 15:30:00 15:30:00 MG [id number] [facility] 2020-12-06 2020-12-06 Outpatient Scott WOOD [facility] [id number] Univers 15:30:00 [facility]30[facility] 2020-11-25 Outpatient ROYCE PRUETT [facility] [id number] Univers 09:00:00 09:00:00 [id number] [facility] 2020-11-[facility] 2020-11-25 Outpatient R ROYCE PRUETT [facility] [id number] Univers 09:00:00 09:00:00 ity [facility] 2020-11-11 2020-11-11 Outpatient R ROYCE PRUETT [facility] [id number] Univers 15:30:00 15:30:00 [id number] [facility] 2020-11-11 2020-11-11 Outpatient Scott [facility] [id number] Univers 15:30:00 [facility] 2020-11-[facility] 2020-11-04 Outpatient Scott PHILLIPS [facility] [id number] Univers 10:00:00 10:00:00 EMELYN [id number] [facility] 2020-11-04 2020-11-04 Outpatient Scott PHILLIPS [facility] [id number] Univers 10:00:00 10:00:00 EMELYN [facility] 2020-10-28 2020-10-28 Outpatient Scott WOOD [facility] [id number] Univers 10:45:00 10:45:00 MG [id number] [facility] 2020-10-28 2020-10-28 Outpatient Scott WOOD [facility] [id number] Univers 10:45:00 10:45:00 MG [facility] 2020-10-25 2020-10-25 Outpatient Scott WOOD [facility] [id number] Univers 14:45:00 14:45:00 MG [id number] [facility] 2020-10-25 2020-10-25 Outpatient Scott WOOD [facility] [id number] Univers 14:45:00 14:45:00 MG [facility] 2020-10-15 2020-10-15 Outpatient Scott WOOD [facility] [id number] Univers 10:00:00 10:00:00 MG [id number] [facility] 2020-10-15 2020-10-15 Outpatient Scott WOOD [facility] [id number] Univers 10:00:00 10:00:00 MG [facility] 2020-10-08 2020-10-08 Outpatient R [facility] [id number] Univers 09:30:00 09:30:00 [id number] [facility] 2020-10-08 2020-10-08 Outpatient R JA [facility] [id number] Univers 09:30:00 [facility] 2020-10-08 Outpatient R BRITTNEY [facility] [id number] Univers 09:15:00 09:15:00 OSCAR [facility] 2020-09-24 2020-09-25 Outpatient nullFlavo MNA [id number] Memoria 19:00:00 05:59:59 r Neurology 10 l [place] 2020-09-24 2020-09-24 Outpatient Scott WOOD [facility] [id number] Univers 09:45:00 09:45:00 MG [id number] [facility] 2020-09-24 2020-09-24 Outpatient Scott WOOD [facility] [id number] Univers 09:45:00 09:45:00 MG [facility] 2020-09-21 2020-09-21 Outpatient R JA [facility] [id number] Univers 14:00:00 14:00:00 ESTER [id number] [facility] 2020-09-21 2020-09-21 Outpatient Scott PERES [facility] [id number] Univers 00:00:00 00:00:00 ESTER [facility] 2020-09-09 2020-09-09 Outpatient JA [facility] [id number] Univers 09:15:00 09:15:00 ESTER [id number] ity of [facility] 2020-09-09 2020-09-09 Outpatient R JA, [facility] [id number] Univers 09:15:00 09:15:00 ESTER ity [facility] 2020-09-06 2020-09-06 Ambulatory nullFlavo MNA [id number] Memoria 16:30:00 16:30:00 Pre-Reg r Neurology 09 l [facility] 2020-07-14 2020-07-14 Outpatient R [facility] [id number] Univers 19:00:00 19:00:00 [id number] ity [facility] 2020-07-14 2020-07-14 Outpatient R CHRISTIANNE, [facility] [id number] Univers 19:00:00 19:00:00 BROOKE rm o f [facility] 2020-07-02 2020-07-02 Appointrosaura [facility] Orthopedics [id number] Univers 14:30:00 14:30:00 t; RAJI JEAN BAPTISTE, - [employer] [place], DPM [place] DPM Physici ans 2020-06-01 2020-06-01 Ambulatory nullFlavo MNA [id number] Memoria 20:00:00 20:00:00 Pre-Reg r Neurology 08 l Nik Segovia 2020-05-31 2020-05-31 Appointrosaura [facility] Orthopedics [id number] Univers 10:00:00 10:00:00 t; RAJI JEAN BAPTISTE, - [place], DPM [place] DPM Physici ans 2020-05-10 2020-05-10 Appointrosaura [facility] Orthopedics [id number] Univers 09:00:00 09:00:00 t; RAJI JEAN BAPTISTE, - [place], DPM [place] DPM Physici ans 2020-04-27 2020-04-27 Steven [facility] Orthopedics [id number] Univers 14:45:00 14:45:00 t; RAJI JEAN BAPTISTE, - [place], DPM [place] DPM Physici ans 2020-03-29 2020-03-29 Appointmen [facility] Orthopedics [id number] Univers 13:00:00 13:00:00 t; RAJI JEAN BAPTISTE, - [place], DPM [place] DPM Physici ans 2020-03-08 2020-03-08 Appointmen [facility] Orthopedics [id number] Univers 11:15:00 11:15:00 t; RAJI JEAN BAPTISTE, - [place], DPM [place] DPM Physici ans 2020-02-26 2020-02-26 Outpatient nullFlavo [facility] [id number] Memoria 10:46:09 16:30:00 r [facility] 2020-02-26 2020-02-26 Appointmen [facility] Orthopedics [id number] Univers 10:30:00 10:30:00 t; RAJI JEAN BAPTISTE, - [place], DPM [place] DPM Physici ans 2020-02-02 2020-02-02 Appointmen [facility] Orthopedics [id number] Univers 10:45:00 10:45:00 t; RAJI JEAN BAPTISTE, - [place], DPM [place] DPM Physici ans 2020-01-15 2020-01-16 Outpatient nullFlavo MNA [id number] Memoria 20:00:00 04:59:59 r Neurology 07 l [facility] 2020-01-15 2020-01-15 Ambulatory nullFlavo MNA [id number] Memoria 20:00:00 20:00:00 Pre-Reg r Neurology 06 l [facility] 2019-12-02 2019-12-03 Outpatient nullFlavo MNA [id number] Memoria 20:30:00 04:59:59 r Neurology 05 l [facility] 2019-05-23 2019-05-23 Ambulatory nullFlavo MNA [id number] Memoria 19:15:00 19:15:00 Pre-Reg r Neurology 04 l [facility] 2019-03-23 2019-03-23 Emergency Harish NJESTER [id number] 12:37:57 13:11:00 Palomo Dumont [id number] [place] [id number] [place] [id number] 2019-03-23 2019-03-23 Orders Doctor DUEÑAS [id number] 00:00:00 00:00:00 Only Unassigned, MARIA ELENA [id number] [place] [facility] [id number] 2019-02-14 2019-02-15 Outpatient nullFlavo MNA [id number] Memoria 20:00:00 04:59:59 r Neurology 02 l [facility] 2018-12-24 2018-12-25 Outpatient nullFlavo MNA [id number] Memoria 20:15:00 04:59:59 r Neurology 03 [facility] [place] 2018-12-20 2018-12-21 Outpatient nullFlavo MNA [id number] Memoria 18:45:00 04:59:59 r Neurology 01 l [facility] 2018-11-22 2018-11-23 Outpatient nullFlavo MNA [id number] Memoria 19:45:00 04:59:59 r Neurology 00 [facility] [place] Results Test Description Test Time Test Comments Results Result Comments Source LABORATORY 2020-02-18 17:38:00 Test Item Value Reference Range Interpretation Comme nts Glucose Lvl (test code = Glucose Lvl) 89 70-99 [place] [id number] 17:38:00 Test Item Value Reference Range Interpretation Comments BUN (test code = BUN) 12 7-22 [place] [id number] 17:38:00 Test Item Value Reference Range Interpretation Comments Creatinine (test code = Creatinine) 0.79 0.50-1.40 [place] [id number] 17:38:00 Test Item Value Reference Range Interpretation Comments Sodium Level (test code = Sodium Level) 141 135-145 [place] [id number] 17:38:00 Test Item Value Reference Range Interpretation Comments Potassium Level (test code = Potassium 4.5 3.5-5.1 Level) [place] [id number] 17:38:00 Test Item Value Reference Range Interpretation Comments Chloride Level (test code = Chloride 108 95-109 Level) [place] [id number] 17:38:00 Test Item Value Reference Range Interpretation Comments Total Carbon Dioxide Level (test code = 24 24-32 Total Carbon Dioxide Level) [place] [id number] 17:38:00 Test Item Value Reference Range Interpretation Comments AGAP (test code = AGAP) 13.5 10.0-20.0 [place] [address]-08-05 17:38:00 Test Item Value Reference Range Interpretation Comments Calcium Level (test code = Calcium 9.5 8.5-10.5 Level) [facility] 17:38:00 Test Item Value Reference Range Interpretation Comments eGFR (test code = eGFR) 92 [place] [id number] 17:38:00 Test Item Value Reference Range Interpretation Comments Results (test code = Reported (02/18/20 12:38 Results) PM) [place] [id number] 17:38:00 Test Item Value Reference Range Interpretation Comments White Blood Count (test code = White 6.4 3.7-10.4 Blood Count) [facility]gwzfgaRANAZRSAOA1870-29-95 17:38:00 Test Item Value Reference Range Interpretation Comments Red Blood Cell Count (test code = Red 4.37 4.20-5.40 Blood Cell Count) [facility]ExuylpbAFUPSXQLGI6496-68-98 17:38:00 Test Item Value Reference Range Interpretation Comments Hemoglobin (test code = Hemoglobin) 12.7 12.0-16.0 [place] [id number] 17:38:00 Test Item Value Reference Range Interpretation Comments Hematocrit (test code = Hematocrit) 38.3 36.0-48.0 [place] [id number] 17:38:00 Test Item Value Reference Range Interpretation Comments MCV (test code = MCV) 87.5 80.0-98.0 [place] [address]-08-05 17:38:00 Test Item Value Reference Range Interpretation Comments MCH (test code = MCH) 29.2 pg 27.0-31.0 [place] [id number] 17:38:00 Test Item Value Reference Range Interpretation Comments MCHC (test code = MCHC) 33.3 32.0-36.0 [facility]DqhwdmsQPLKDHVKJK8190-66-75 17:38:00 Test Item Value Reference Range Interpretation Comments RDW (test code = RDW) 14.2 11.5-14.5 [place] [id number] 17:38:00 Test Item Value Reference Range Interpretation Comments Platelet (test code = Platelet) 300 133-450 [facility]VfychtzFEUFHANFRQ3770-23-49 17:38:00 Test Item Value Reference Range Interpretation Comments MPV (test code = MPV) 8.3 7.4-10.4 [facility]LftaxtfQCZTHOYFUT4758-17-44 17:38:00 Test Item Value Reference Range Interpretation Comments NRBCs # (test code = NRBCs #) 0.1 0.4-2.2 [facility] CenterDlupvpsLFGFWQYPBN0551-62-24 17:38:00 Test Item Value Reference Range Interpretation Comments Results (test code = Reported (02/18/20 12:38 Results) PM) [facility] CenterYgyffxvXFMCXQNRGN0813-83-28 17:38:00 Test Item Value Reference Range Interpretation Comments Neutrophil % (test code = Neutrophil %) 62.2 45.0-75.0 [facility] CenterZrtohsdQFJMSRAFUY7771-18-51 17:38:00 Test Item Value Reference Range Interpretation Comments Monocyte % (test code = Monocyte %) 6.8 2.0-12.0 [facility] CenterDskxcfgRLCBQAUCIN0142-14-26 17:38:00 Test Item Value Reference Range Interpretation Comments Lymphocyte % (test code = Lymphocyte %) 26.9 20.0-40.0 [facility] CenterTvmerdgAVFBWBRKVV8777-11-18 17:38:00 Test Item Value Reference Range Interpretation Comments Eosinophil # (test code 3.6 See_Comment [Au tomated message] The = Eosinophil #) system which generated this result tra nsmitted reference range : <=4.0. The reference r karan was not used to int erpret this result as normal/abnormal . [facility] CenterKvrygopTGPIHMVSJH7053-60-13 17:38:00 Test Item Value Reference Range Interpretation Comments Basophil % (test code = 0.5 See_Comment [Au tomated message] The Basophil %) system which ge nerated this result tra nsmitted reference range : <=1.0. The reference r karan was not used to int erpret this result as normal/abnormal . [facility] CenterIvrpeeoXFMIKGSPFO3903-73-62 17:38:00 Test Item Value Reference Range Interpretation Comments Neutrophil # (test code = Neutrophil #) 4.0 1.5-8.1 [facility] CenterUuwpjtoTJYXVXBSZC9497-36-34 17:38:00 Test Item Value Reference Range Interpretation Comments Lymphocyte # (test code = Lymphocyte #) 1.7 1.0-5.5 [facility] CenterIwjpdewDAOZKWEUQU4573-06-82 17:38:00 Test Item Value Reference Range Interpretation Comments Monocyte # (test code = 0.4 See_Comment [Au tomated message] The Monocyte #) system which ge nerated this result tra nsmitted reference range : <=0.8. The reference r karan was not used to int erpret this result as normal/abnormal . [facility] CenterRojqaxvKHOAQYCPQV7486-87-48 17:38:00 Test Item Value Reference Range Interpretation Comments Eosinophil % (test code 0.2 See_Comment [Au tomated message] The = Eosinophil %) system which generated this result tra nsmitted reference range : <=0.5. The reference r karan was not used to int erpret this result as normal/abnormal . [facility] CenterAkpqrteSPZDTFBATZ8871-09-29 17:38:00 Test Item Value Reference Range Interpretation Comments Results (test code = Reported (02/18/20 12:38 Results) PM) [facility]
[2021-10-10 17:10] LABS: Absolute Lymphocytes (CBC) 2.4 K/uL (0.7-4.9); Hematocrit 39.2 % (36.0-45.0); Lymphocytes % 24.1 % (15.3-44.8); MPV 7.9 fL (7.6-11.3); RBC Red Blood Cell Count 4.63 M/uL (3.86-4.86)
[2021-10-10 17:26] LABS: Potassium 3.9 mmol/L (3.5-5.1)
[2021-10-10] MEDS ORDERED: NA CHLORIDE 0.9% 1,000 ML ONE (17:46)
[2021-10-10] MEDS ORDERED: KETOROLAC 30 MG/ML INJ ONE (17:46)
[2021-10-10] MEDS ORDERED: DIPHENHYDRAMINE 50 MG/ML VIAL ONE (17:46)
[2021-10-10] MEDS ORDERED: METOCLOPRAMIDE 10 MG/2mL INJ ONE (17:47)
[2021-10-10 19:08] LABS: SARS-COV-2 RT PCR NEGATIVE (NEGATIVE)
[2021-10-10 19:42] LABS: Urine Blood Negative (Negative); Urine Glucose Negative (Negative); Urine Protein Negative (Negative); Urine Specific Gravity >=1.030 (1.005-1.030); Urine pH 5.5 (5.0-7.0)
[2021-10-10 20:38] LABS: Urine Bacteria >50 /HPF (<20)
[2021-10-10 20:39] LABS: Urine RBC <5 /HPF (NONE SEEN); Urine Urothelial Cells <5 /HPF (NONE SEEN)
--- NOTE | 2021-10-10 20:43 | EDPHYS ---
Physician Documentation [facility] Name: Trudi Villavicencio Age: 46 yrs Sex: Female : 1975 Arrival Date: 10/10/2021 Time: 16:03 Bed 16 Private MD: SLY Physician Giuseppe Akers HPI: 10/10 16:54 This 46 yrs old Female presents to ER via Ambulatory with complaints of Headache, kb Nausea, High Blood Pressure. 16:54 The patient complains of pain to the top of head. The patient describes the headache as kb constant. Onset: The symptoms/episode began/occurred 1 week(s) ago. Associated signs and symptoms: Pertinent positives: dizziness, malaise, nausea. Severity of symptoms: At its worst the pain was moderate, in the emergency department the pain is unchanged. Headache History: The patient has had previous headaches. The symptoms are alleviated by nothing. the symptoms are aggravated by nothing. The patient has not experienced similar symptoms in the past. The patient has not recently seen a physician. Pt reports headache, nausea, dizziness, fatigue and malaise that started a week ago. States it was worse a few days ago so she checked her BP and it was elevated. States she had been out of her BP meds, but picked them up and took one this morning. Spoke with PCP today and was told to come be evaluated here. . 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 - Social history:: Smoking status: Patient denies any tobacco usage or history of. ROS: 16:48 Respiratory: Negative for shortness of breath, cough, wheezing, and pleuritic chest kb pain. 16:48 Constitutional: Positive for fatigue, malaise. 16:48 Abdomen/GI: Positive for nausea, Negative for abdominal pain, vomiting, diarrhea. 16:48 Neuro: Positive for dizziness, headache. 16:48 All other systems are negative. Exam: 16:53 Constitutional: This is a well developed, well nourished patient who is awake, alert, kb and in no acute distress. Head/Face: Normocephalic, atraumatic. Eyes: Pupils equal round and reactive to light, extra-ocular motions intact. Lids and lashes normal. Conjunctiva and sclera are non-icteric and not injected. Cornea within normal limits. Periorbital areas with no swelling, redness, or edema. ENT: Moist Mucous membranes Cardiovascular: Regular rate and rhythm with a normal S1 and S2. No gallops, murmurs, or rubs. No pulse deficits. Respiratory: Respirations even and unlabored. No increased work of breathing. Talking in full sentences Skin: Warm, dry with normal turgor. Normal color. MS/ Extremity: Pulses equal, no cyanosis. Neurovascular intact. Full, normal range of motion. Neuro: Awake and alert, GCS 15, oriented to person, place, time, and situation. Moves all extremities. Normal gait. Psych: Awake, alert, with orientation to person, place and time. Behavior, mood, and affect are within normal limits. Vital Signs: 16:09 BP 158 / 96; Pulse 107; Resp 17; Temp 97.8(TE); Pulse Ox 100% on R/A; Pain 9/10; tw2 17:00 BP 132 / 88; Pulse 90; Resp 15; Pulse Ox 100% ; jl7 17:23 BP 141 / 94 Supine; Pulse 93; Resp 18; Pulse Ox 100% on R/A; mh5 17:25 BP 148 / 110 Sitting; Pulse 105; Resp 18; Pulse Ox 100% on R/A; mh5 17:27 BP 152 / 117 Standing; Pulse 108; Resp 20; Pulse Ox 100% ; mh5 18:39 BP 125 / 78; Pulse 91; Resp 15; Pulse Ox 97% ; jl7 20:10 BP 103 / 62; Pulse 88; Resp 18; Pulse Ox 100% on R/A; ke1 Clarence Coma Score: 16:48 Eye Response: spontaneous(4). Verbal Response: oriented(5). Motor Response: obeys kb commands(6). Total: 15. MDM: 16:13 Patient medically screened. kb 16:48 Data reviewed: vital signs, nurses notes. Data interpreted: Pulse oximetry: on room air kb is 100 %. Interpretation: normal. 19:09 Counseling: I had a detailed discussion with the patient and/or guardian regarding: the kb historical points, exam findings, and any diagnostic results supporting the discharge/admit diagnosis, lab results, the need for outpatient follow up, a family practitioner, to return to the emergency department if symptoms worsen or persist or if there are any questions or concerns that arise at home. 10/10 16:17 Order name: CBC with Diff; Complete Time: 17:22 kb 10/10 16:17 Order name: Basic Metabolic Panel; Complete Time: 17:28 kb 10/10 16:17 Order name: COVID-19/FLU A+B (Document "Date of Onset" if Symptomatic); Complete Time: kb 19:08 10/10 19:42 Order name: Urine Dipstick-Ancillary; Complete Time: 19:52 EDMS 10/10 19:52 Order name: Urine Microscopic Only; Complete Time: 20:41 kb 10/10 20:42 Order name: Urine Culture [facility] 10/10 16:17 Order name: IV Start; Complete Time: 17:08 kb 10/10 16:17 Order name: Orthostatics; Complete Time: 18:13 kb 10/10 16:40 Order name: Urine Dipstick-Ancillary (obtain specimen); Complete Time: 19:45 kb Administered Medications: 18:00 Drug: NS 0.9% 1000 ml Route: IV; Rate: 1000 ml; Site: left antecubital; jl7 18:00 Drug: Benadryl (diphenhydrAMINE) 12.5 mg Route: IVP; Site: left antecubital; jl7 18:40 Follow up: Response: No adverse reaction jl7 18:03 Drug: Ketorolac 15 mg Route: IVP; Site: left antecubital; jl7 18:30 Follow up: Response: No adverse reaction; Pain is decreased jl7 18:06 Drug: Reglan (metoCLOPramide) 10 mg Route: IVP; Site: left antecubital; jl7 18:30 Follow up: Response: No adverse reaction; Pain is decreased jl7 Disposition Summary: 10/10/21 20:42 Discharge Ordered Location: Home kb Condition: Stable kb Diagnosis - UTI/ Urinary tract infection, site not specified kb - Migraine without aura, not intractable kb Followup: kb - With: Emergency Department - When: As needed - Reason: Worsening of condition Followup: kb - With: Private Physician - When: 2 - 3 days - Reason: Recheck today's complaints, Continuance of care, Re-evaluation by your physician Discharge Instructions: - Discharge Summary Sheet kb - Urinary Tract Infection, Adult, Cqlp-ok-Czjj kb - Migraine Headache, Syxs-sk-Mgsw kb Forms: - Medication Reconciliation Form kb - Thank You Letter kb - Antibiotic Education kb - Prescription Opioid Use kb Prescriptions: - Macrobid 100 mg Oral Capsule - take 1 capsule by ORAL route every 12 hours for 10 days; 20 capsule; Refills: kb 0, Product Selection Permitted Addendum: 10/13/2021 06:30 Co-signature as Attending Physician, Giuseppe Akers MD I agree with the assessment and c miller plan of care. Signatures: Dispatcher [employer] Lia Woodson, RN CARDIAC-C RN CARDIAC-Giuseppe Scott MD MD cha Wise, Tara, RN RN tw2 Misa Alfredo RN RN jl7
--- NOTE | 2021-10-10 20:43 | ER ---
Nurse's Notes [facility] Name: Trudi Villavicencio Age: 46 yrs Sex: Female : 1975 Arrival Date: 10/10/2021 Time: 16:03 Bed 16 Private MD: Diagnosis: UTI/ Urinary tract infection, site not specified;Migraine without aura, not intractable Presentation: 10/10 16:07 Chief complaint: Patient states: i called my drs office and they told me to come to the [facility] ER because of how i am feeling. i am nausea and migraine headaches since last week. i thought it was something going around but apparently it just kept getting worse. i sometimes feel like the room is spinning and then i feel unbalanced. Coronavirus screen: At this time, the client does not indicate any symptoms associated with coronavirus-19. Ebola Screen: Patient denies travel to an Ebola-affected area in the 21 days before illness onset. Risk Assessment: Do you want to hurt yourself or someone else? Patient reports no desire to harm self or others. Onset of symptoms was October 10, 2021. 16:07 Method Of Arrival: Ambulatory tw2 16:07 Acuity: HOWIE 3 tw2 16:09 Initial Sepsis Screen: Does the patient meet any 2 criteria? No. Patient's initial tw2 sepsis screen is negative. Does the patient have a suspected source of infection? No. Patient's initial sepsis screen is negative. Triage Assessment: 16:09 Headache History: The patient has had previous headaches and this one is similar to tw2 previous episodes. General: Appears uncomfortable, obese, well groomed, Behavior is calm, cooperative, appropriate for age. Pain: Pain currently is 9 out of 10 on a pain scale. Pain began 1 week ago Also complains of nausea. Neuro: Reports headache. 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 - Social history:: Smoking status: Patient denies any tobacco usage or history of. Screenin:10 Abuse screen: Denies threats or abuse. Nutritional screening: No deficits noted. tw2 Tuberculosis screening: No symptoms or risk factors identified. Fall Risk None identified. Assessment: 16:45 General: Appears in no apparent distress. uncomfortable, Behavior is cooperative, jl7 anxious. Pain: Complains of pain in top of head Pain currently is 10 out of 10 on a pain scale. Neuro: Level of Consciousness is awake, alert, obeys commands, Oriented to person, place, time, situation. Cardiovascular: Patient's skin is warm and dry. Respiratory: Airway is patent Respiratory effort is even, unlabored, Respiratory pattern is regular, symmetrical. Derm: Skin is pink, warm \T\ dry. 18:39 Reassessment: Patient appears in no apparent distress at this time. Patient and/or jl7 family updated on plan of care and expected duration. Pain level reassessed. Patient is alert, oriented x 3, equal unlabored respirations, skin warm/dry/pink. reports decreased pain rated 4/10 at this time. Patient states feeling better. Patient states symptoms have improved. Vital Signs: 16:09 BP 158 / 96; Pulse 107; Resp 17; Temp 97.8(TE); Pulse Ox 100% on R/A; Pain 9/10; tw2 17:00 BP 132 / 88; Pulse 90; Resp 15; Pulse Ox 100% ; jl7 17:23 BP 141 / 94 Supine; Pulse 93; Resp 18; Pulse Ox 100% on R/A; mh5 17:25 BP 148 / 110 Sitting; Pulse 105; Resp 18; Pulse Ox 100% on R/A; mh5 17:27 BP 152 / 117 Standing; Pulse 108; Resp 20; Pulse Ox 100% ; mh5 18:39 BP 125 / 78; Pulse 91; Resp 15; Pulse Ox 97% ; jl7 20:10 BP 103 / 62; Pulse 88; Resp 18; Pulse Ox 100% on R/A; ke1 Clarence Coma Score: 16:48 Eye Response: spontaneous(4). Verbal Response: oriented(5). Motor Response: obeys kb commands(6). Total: 15. ED Course: 16:03 Patient arrived in ED. as 16:08 Triage completed. tw2 16:09 Arm band placed on. tw2 16:13 Lia Montenegro F[facility]-C [facility]. kb 16:13 Giuseppe Akers MD is Attending Physician. kb 16:43 Missed attempt(s): 20 gauge in right antecubital area. vg1 16:44 Misa Alfredo, BECK is Primary Nurse. jl7 16:45 Patient has correct armband on for positive identification. Bed in low position. Call jl7 light in reach. Side rails up X 1. 16:45 Pulse ox on. NIBP on. jl7 17:00 Initial lab(s) drawn, by nm, sent to lab. COVID swab sent to lab. Inserted saline lock: jl7 22 gauge in left antecubital area, using aseptic technique. Blood collected. 19:21 Primary Nurse role handed off by Misa Alfredo RN jl7 19:21 Report given to BECK Long. jl7 19:31 Tia De Santiago RN is Primary Nurse. ke1 20:15 Tia De Santiago, BECK is Primary Nurse. ke1 20:15 Tia De Santiago RN is Primary Nurse. ke1 21:02 No provider procedures requiring assistance completed. ke1 21:02 IV discontinued. ke1 Administered Medications: 18:00 Drug: NS 0.9% 1000 ml Route: IV; Rate: 1000 ml; Site: left antecubital; jl7 18:00 Drug: Benadryl (diphenhydrAMINE) 12.5 mg Route: IVP; Site: left antecubital; jl7 18:40 Follow up: Response: No adverse reaction jl7 18:03 Drug: Ketorolac 15 mg Route: IVP; Site: left antecubital; jl7 18:30 Follow up: Response: No adverse reaction; Pain is decreased jl7 18:06 Drug: Reglan (metoCLOPramide) 10 mg Route: IVP; Site: left antecubital; jl7 18:30 Follow up: Response: No adverse reaction; Pain is decreased jl7 Outcome: 20:42 Discharge ordered by . kb 21:02 Discharged to home ambulatory. ke1 21:02 Condition: good 21:02 Discharge instructions given to patient. 21:05 Patient left the ED. ke1 Signatures: Lia Montenegro, JOHN PAUL-Sony COKER-Dolly Gonzalez Tara, RN RN tw2 Mely Rodriguez [facility] Misa Alfredo, RN RN jl7 Dana Shabazz, RN RN vg1 Tia De Santiago RN RN ke1
[2021-10-10 22:32] VITALS: TEMP 97.8
[2021-10-10 22:48] VITALS: BP 103/62; O2SAT 100
== END 2021-10-10 21:05 | disposition home or self-care (01) ==
LOC: ER 16:00
DX: N39.0 Urinary tract infection, site not specified (principal); G43.009 Migraine without aura, not intractable, without status migrainosus; Z88.5 Allergy status to narcotic agent; Z88.6 Allergy status to analgesic agent; Z88.8 Allergy status to other drugs, medicaments and biological substances; Z20.822 Contact with and (suspected) exposure to COVID-19
CPT/HCPCS: 0240U; 36415; 80048; 81003; 81015; 85025; 87077; 87086; 87088; 87186; 96374; 96375; 99284; J1200; J2765; J7030

== ENCOUNTER 2022-01-02 09:42 | Emergency (ER) | payer SELFPAY ==
--- OUTSIDE RECORDS SUMMARY | 2022-01-02 09:47 | XMS REPORT | Continuity of Care Document ---
:1975 Author Organization [facility] t Address [address] [place] [address] Care Team Providers Name Role Phone Asked, [...] Date Expiration Date S ai [place] - [id number] 2020 00:00:00 OUT OF STATE BCBS 2 [id number] 2021 00:00:00 Problems Condition Condition Condition Status [...] encounter automatic ally from request for surgery [id number] Secondary Secondary Disease Active Overview: Univers oligomenor oligomenor 4-08 Formattin ity of pete pete 00:00: g of this [place] 00 note Medical might be Branch different from the original. 10/21/18 - DepoProve ra started05/03 - EMB benign Vitamin D Vitamin D Disease Active Uni vers deficiency deficiency -19 it y of 00:00: Medical Branch Shoulder Shoulder Disease Active Unive rs impingemen impingemen - it y of t, left t, left 00:00: Medical Branch Low serum Low serum Disease Active Uni vers HDL HDL -12 ity of 00:00: [place] [facility] Abnormal Abnormal Disease Active Unive [...] 2021-04-29 Memor ia (disorder) 21:40:08 l Asthma [place] (disorder) Active Problem 04/29/2021 [facility] Gastritis Problem Active 2021-04-29 Me moria (disorder) 21:40:08 l [place]a Gastritis (disorder) Active Problem 04/29/2021 [facility] Hypertensi Problem Active 2021-04-29 M emoria ve 21:40:08 l disorder, [place] systemic Hypertensi arterial ve (disorder) disorder, systemic [...] 2021-04-29 M emoria a 21:40:08 l (finding) [place] Paresthesi a (finding) Active Problem 04/29/2021 [facility] Lumbar Problem Active 2021-04-29 Memor ia radiculopa 21:40:08 l thy Lumbar Luca (disorder) radiculopa thy (disorder) Active Problem 04/29/2021 [facility] Peripheral Problem Active 2021-04-29 M emoria nerve 21:40:08 l disease [place] (disorder) Peripheral nerve disease (disorder) Active Problem [...] Active 2020-02-28 M emoria (disorder) 04:01:02 l [place] Neuropathy (disorder) Active Problem 02/28/2020 [facility] 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, dissecans, an s left ankle left ankle and joints and joints of left of left foot foot Special Special Problem Active UT screening screening Phys ici examinatio examinatio an s n for n for other other specified specified viral viral diseases diseases Closed Closed Problem Active UT nondisplac nondisplac Ph ysici ed ed ans fracture fracture of dome of of dome of left talus left talus with with routine routine healing, healing, subsequent subsequent encounter encounter Right calf Right calf Problem Active U T pain pain Physici ans Pain of Pain of Problem Active UT left calf left calf Phys ici ans Edema, Edema, Problem Active UT lower lower Physici extremity extremity ans Plantar Plantar Problem Active UT fasciitis fasciitis Phys ici ans Left ankle Left ankle Problem Active U T pain pain Physici ans Fibromyalg Fibromyalg Disease Active U nivers ia ia ity of [facility] Disc Disc Disease Active Univers disease, disease, ity of degenerati degenerati [place] ve, lumbar ve, lumbar Me dical or or Branch lumbosacra lumbosacra l l Cervical Cervical Disease Active Unive rs herniated herniated ity of disc disc [facility] Lumbar Lumbar Disease Active Univers herniated herniated ity of disc disc [facility] History of Past Illness Condition Condition Condition Status Onset Resolution Last Treating Co mments Source Name Details Category Date Date Treatment Clinician Date Nondisplac Problem 2020-02-28 2020-02-28 Memoria ed dome 02-25 04:01:02 04:01:02 l fracture 17:00: [place] of left Nondisplac 00 talus, ed dome initial fracture encounter of left for closed talus, fracture initial encounter for closed fracture 0 02/28/2020 [facility] Allergies, Adverse Reactions, Alerts Allergy Allergy Status Severity Reaction(s) Onset Inactive Treating Comm ents Source Name Type Date Date Clinician Fd&C Propensi Active Nausea and Agueda ey [place] ty to Vomiting 03-31 Seybold #10 adverse 00:00: Aluminum reaction 00 [facility] s iramate Aspirin Propensi Active Other - See Yung Un george ty to comments 09-06 Syndrome ity of adverse 00:00: [place] reaction 00 Medical s Branch Codeine Propensi Active Nausea Univers ty to and/or 09-06 ity of adverse Vomiting 00:00: [place] reaction 00 Medical s Branch ASPIRIN DRUG Active Other-Cmnt Unive rs INGREDI 09-06 ity of 00:00: [place] 00 Medical Branch CODEINE DRUG Active N/V Univers INGREDI 09-06 ity of 00:00: [place] 00 Medical Branch TOPIRAMA DRUG Active N/V Univers TE INGREDI 09-06 ity of 00:00: [place] 00 [facility] Branch Topirama Propensi Active Nausea and Other [...] l [place] aspirin aspirin Active Memoria l [place] Topamax Topamax Active Memoria l [place] traMADol traMADol Active Memori a l [place] aspirin Allergy Active UT to drug Physici (finding ans ) codeine Allergy Active [facility] to drug Physici (finding ans ) Family History Family Member Diagnosis Comments Start Date Stop Date Source Natural father Diabetes [facility] Natural father Heart attack [facility] Maternal aunt Cancer [facility] Maternal grandmother Diabetes [facility] Maternal grandmother Stroke [facility] Natural mother Heart attack [facility] Natural mother Heart disease [facility] Social History Social Habit Start Date Stop Date Quantity Comments Source Exposure to Not sure Rosi armendariz SARS-CoV-2 (event) Tobacco use and 2021-05-19 2021-05-19 Smokeless tobacco Me [facility] exposure 00:00:00 00:00:00 non-user Hospital Alcohol intake 2021-05-19 2021-05-19 [facility] 00:[facility] 00:00:00 non-drinker Hospital (finding) Sex Ass[birth year] [facility] 00:[facility]00 Hospital Smoking Status Start Date Stop Date Source Never smoker [facility] Medications Ordered Filled Start Stop Current [...] vac qv 2020-07 Yes Flublok Meth jason 2018,yr 07-[address] up,rc,PF, 10:53: Hos helga (Flublok 59 (PF) 180 l Quad mcg (45 [id number], mcg x PF,) 180 4)/0.5 mL mcg (45 mcg IM syringe x 4)/0.5 mL PHARMACIST syringe ADMINISTER ED IMMUNIZATI ON ADMINISTER ED AT TIME OF DISPENSING bromphenira 2020-07 Yes bromphenir Methodi mine-pseudo 07-19 amine-pseu st eph-DM 10:53: doephedrin Hospi ta 2-30-10 58 e-DM 2 l mg/5 mL mg-30 syrup mg-10 mg/5 mL oral syrup budesonide 2020-07 Yes 1mg Inhale 1 Met hodi (PULMICORT) 1-[address] 1 mg/2 mL 10:53: Hospita nebulizer 58 l solution cyclobenzap 2020-07 Yes Method i rine 0-21 st (FLEXERIL) 00:00: Hospita 10 mg 00 l tablet Cyclobenzap 2020-07- No 1{tbl} Take 1 K [...] 32 on daily Suspension Cyclobenzap 2020-07 Yes [id number] 10mg Take 1 Rosi rine HCl 10 [...] 0-04 Seybold oral Tablet 00:00: 00 ubrogepant Yes 100 mg = 1 M emoria 100 MG Oral 9-10 tab, PO, l Tablet 21:15: PRN, PRN [place] [Ubrelvy] 00 Other -See Comment, X 30 day, # 10 tab, 1 Refill(s), Pharmacy: [id number], For Migraine. May repeat dose after 2 hours. Max dose 200 mg/ 24 hours, 152.4, cm, 03/16/21 8:31:00 CDT, Height, 112.727, kg, 03/16/21 8... ubrogepant 2020-0 Yes 100 mg = 1 M ethodi (Ubrelvy) 9-10 tab, PO, st 100 mg 00:00: PRN, PRN Hospita tablet 00 Other -See l Comment, X 30 day, # 10 tab, 1 Refill(s), Pharmacy: [id number], For Migraine. May repeat dose after 2 hours. Max dose 200 mg/ 24 hours, 152.4, cm, 03/16/21 8:31:00 CDT, Height, 112.727, kg, 03/16/21 8... ubrogepant No 100 mg = 1 M emoria 100 MG Oral 9-03 tab, PO, l Tablet 16:30: PRN, PRN [place] [Ubrelvy] 00 Other -See Comment, X 30 day, # 10 tab, 1 Refill(s), Pharmacy: [facility], For Migraine. May repeat dose after 2 hours. Max dose 200 mg/ 24 hours, 152.4, cm, 03/16/21 8:31:00 CDT, Height, 112.727, kg, 03/16/21 8:... amitriptyli Yes = 1 tab, Me moria ne 75 mg 9-01 PO, l oral tablet 23:57: Bedtime, # Luca 00 30 ea, 5 Refill(s), Pharmacy: [facility], 152.4, cm, 03/16/21 8:31:00 CDT, Height, 112.727, kg, 03/16/21 8:31:00 CDT, Weight Amitriptyli 2020-0 Yes amitriptyl Rosi ne HCl 75 9-01 ine 75 mg Seybo ld MG oral 00:00: tablet Tablet 00 ubrogepant No 100 mg = 1 M emoria 100 MG Oral 8-23 tab, PO, l Tablet 21:26: PRN, PRN [place] [Ubrelvy] 00 Other -See Comment, X 30 day, # 10 tab, 1 Refill(s), Pharmacy: [facility], For Migraine. May repeat dose after 2 hours. Max dose 200 mg/ 24 hours, 152.4, cm, 02/01/21 13:49:00 CDT, Height, 116.818, kg, 02/01/21 1... ibuprofen 2020-0 Yes Methodi (ADVIL) 600 8-04 st MG tablet 00:00: Hospita 00 l Ibuprofen 2020-0 Yes Rosi 600 MG oral 8-04 Seybold Tablet 00:00: 00 methylPREDN 2020-0 Yes [id number] 84mg Take 21 Univers ISolone 7-30 tablets by ity of (MEDROL, 00:00: mouth [place] GENARO,) 4 mg 00 SEE-INSTRU Med ical tablets CTIONS. Branch follow package directions methylPREDN 2020-0 Yes [id number] 84mg Take 21 Univers ISolone 7-30 tablets by ity of (MEDROL, 00:00: mouth [place] GENARO,) 4 mg 00 SEE-INSTRU Med ical tablets CTIONS. Branch follow package directions methylPREDN 2020-0 Yes [id number] 84mg Take 21 Univers ISolone 7-30 tablets by ity of (MEDROL, 00:00: mouth [place] GENARO,) 4 mg 00 SEE-INSTRU Med ical tablets CTIONS. Branch follow package directions medroxyPROG 2020-0 Yes [id number] 20mg Take 2 Univers ESTERone 5-13 tablets by ity o f (PROVERA) 00:00: mouth [place] 10 mg 00 daily. Medical tablet Branch medroxyPROG 202-0 Yes [id number] 20mg Take 2 Univers ESTERone 5-13 tablets by ity o f (PROVERA) 00:00: mouth [place] 10 mg 00 daily. Medical tablet Branch medroxyPROG 2021-0 Yes [id number] 20mg Take 2 Univers ESTERone 5-13 tablets by ity o f (PROVERA) 00:00: mouth [place] 10 mg 00 daily. Medical tablet Branch medroxyPROG 202-0 Yes every 24 Ke lsey ESTERone 5-13 hours Seybold Acetate 10 00:00: MG oral 00 Tablet rizatriptan 0 Yes 5 mg = 1 Me moria 5 MG Oral 3-12 tab, PO, l Tablet 20:23: ONCE, PRN Burak n [Maxalt] 00 for migraine headache, # 9 tab, 1 Refill(s), Pharmacy: [facility], 160.02, cm, 09/24/20 13:34:00 LIBRARY MONITOR, Height, 113.636, kg, 09/24/20 13:34:00 LIBRARY MONITOR, Weight Rizatriptan 0 Yes rizatripta Rosi Benzoate 5 3-12 n 5 mg Seybold MG oral 00:00: tablet Tablet 00 TAKE 1 TABLET BY MOUTH ONCE DAILY NEEDED FOR HEADACHE MIGRAINE rizatriptan Yes 5 mg = 1 Me moria 5 MG Oral 9-15 tab, PO, l Tablet 22:44: ONCE, PRN Burak n [Maxalt] for migraine headache, # 9 tab, 1 Refill(s), Pharmacy: [facility], 152.4, cm, 01/15/20 15:04:00 CDT, Height, 115.455, kg, 01/15/20 15:04:00 CDT, Weight Misc 2019-0 No 900 mL, Memoria Medication 02-25 Soln-IV, l 15:27: IV, Once, first dose 02/26/20 10:27:00 CDT, stop date 02/26/20 10:27:00 CDT LR 1,000 mL 2019-0 No 1,000 mL, M emoria - IV, 75 l 15:20: mL/hr, start date 02/26/20 10:20:00 CDT, 2.14, m2 Saline Lock 2019-0 No 10 mL, Lev trupti Flush 02-25 Soln, IV l 15:20: Push, As Indicated PRN for flush, first dose 02/26/20 10:20:00 CDT Dilaudid 2019-0 No 0.5 mg = Memor ia 02-25 0.5 mL, l 15:20: Injection, IV Push, [...] gm, Memoria 8-13 Soln-IV, l 12:53: IV [place] 00 Piggyback, Once, first dose 02/26/20 7:53:00 CDT, stop date 02/26/20 7:53:00 CDT ondansetron 2020-0 No 4 mg = 2 Me moria 8-13 mL, l 12:53: Injection, [place] 00 IV, Once, first dose 02/26/20 7:53:00 [...] ia 8-13 20 mL, l 12:41: Emulsion, [place] 00 IV, Once, first dose 02/26/20 7:41:00 CDT, stop date 02/26/20 7:41:00 CDT fentaNYL 2020-0 No 50 mcg = 1 Mem oria 8-13 mL, l 12:35: Injection, [place] 00 IV, Once, first dose 02/26/20 7:35:00 CDT, stop date 02/26/20 7:35:00 CDT midazolam 2020-0 No 1 mg = 1 Lev trupti 8-13 mL, l 12:34: Injection, [place] 00 IV, Once, first dose 02/26/20 7:34:00 CDT, stop date 02/26/20 7:34:00 CDT midazolam 2020-0 No 1 mg = 1 Lev trupti 8-13 mL, l 12:26: Injection, [place] 00 IV, Once, first dose 02/26/20 7:26:00 [...] 02-25 Injection, l IV Start 11:28: Subcutaneo [facility] [[facility]] 00 , Once PRN for other (see comment), first dose 02/26/20 6:28:00 CDT Allergy 2020-0 Yes mg, Oral, Memor ia Relief 8-05 Daily, 0 l 17:06: Refill(s) Tylenol PM 2020-0 Yes Oral, qHS, M emoria 8-05 0 l 17:05: Refill(s), sleep /pain amitriptyli 2020-0 Yes 75 mg [...] oral 8-05 tabs, l tablet 17:04: Oral, [place] 00 Daily, 0 Refill(s) pantoprazol 2020-0 Yes 40 mg = 1 M emoria e 40 mg 8-05 tabs, l oral 17:04: Oral, [place] delayed 00 Daily, 0 release Refill(s), tablet GERD meloxicam 2019-0 Yes 7.5 mg = 1 Me moria 7.5 MG Oral 8-05 tabs, l Tablet 17:04: Oral, [place] 00 Daily, 0 Refill(s), joint pain pantoprazol 2019-0 Yes pantoprazo Methodi e 8-[address] (PROTONIX) 00:00: tablet,del H ospita 40 MG EC 00 ayed l tablet release TAKE 1 TABLET BY MOUTH ONCE DAILY amitriptyli 2019-0 Yes = 1 tab, Me moria ne 75 mg 7-02 PO, l oral tablet 20:24: Bedtime, # [place] 00 30 ea, 5 Refill(s), Pharmacy: [facility], 152.4, cm, 01/15/20 15:04:00 CDT, Height, 115.455, kg, 01/15/20 15:04:00 CDT, Weight rizatriptan 2019-0 Yes 5 mg = 1 Me moria 5 MG Oral 7-02 tab, PO, l Tablet 20:24: ONCE, PRN Burak n [Maxalt] 00 for migraine headache, # 9 tab, 1 Refill(s), Pharmacy: [facility], 152.4, cm, 01/15/20 15:04:00 CDT, Height, 115.455, kg, 01/15/20 15:04:00 CDT, Weight rizatriptan 2020-0 Yes 5 mg = 1 Me moria 5 MG Oral 5-19 tab, PO, l Tablet 21:06: ONCE, PRN Burak n [Maxalt] 00 for migraine headache, # 9 tab, 1 Refill(s), Pharmacy: [facility] amitriptyli 2019-0 Yes = 1 tab, Me moria ne 75 mg 5-19 PO, l oral tablet 21:06: Bedtime, # [place] 00 30 ea, 1 Refill(s), Pharmacy: [facility] loratadine Yes loratadine M ethodi (CLARITIN) 9-[address] 10 mg 00:00: tablet Hospita tablet 00 TAKE 1 l TABLET BY MOUTH ONCE DAILY sod Yes [id number] 1{bottl Use 1 Unive rs chlor-bicar 9-08 e} Bottle in ity of b-squeez 00:00: each [place] bottle 00 nostril 2 Medical (NEILMED (two) Branch SINUS RINSE times COMPLETE) daily. Use pkdv in hot shower 1 hour before bedtime loratadine Yes [id number] 10mg Take 1 U nivers 10 mg 9-08 tablet by ity of tablet 00:00: mouth [place] 00 daily. Medical Branch sod Yes [id number] 1{bottl Use 1 Unive rs chlor-bicar 9-08 e} Bottle in ity of b-squeez 00:00: each [place] bottle 00 nostril 2 Medical (NEILMED (two) Branch SINUS RINSE times COMPLETE) daily. Use pkdv in hot shower 1 hour before bedtime loratadine Yes [id number] 10mg Take 1 U nivers 10 mg 9-08 tablet by ity of tablet 00:00: mouth [place] 00 daily. Medical Branch sod Yes [id number] 1{bottl Use 1 Unive rs chlor-bicar 9-08 e} Bottle in ity of b-squeez 00:00: each [place] bottle 00 nostril 2 Medical (NEILMED (two) Branch SINUS RINSE times COMPLETE) daily. Use pkdv in hot shower 1 hour before bedtime loratadine Yes [id number] 10mg Take 1 U nivers 10 mg 9-08 tablet by ity of tablet 00:00: mouth daily. Medical Branch amitriptyli Yes 75 mg = 1 M emoria ne 75 mg 8-22 tab, PO, l oral tablet 18:27: Bedtime, # [place] 00 30 tab, 1 Refill(s), Pharmacy: [facility] rizatriptan Yes 5 mg = 1 Me moria 5 MG Oral 8-02 tab, PO, l Tablet 20:24: ONCE, PRN Burak n [Maxalt] 09 for migraine headache, # 9 tab, 1 Refill(s), Pharmacy: [facility] thiamine Yes 100 mg = 1 Mem oria 100 mg oral 8-02 tab, PO, l tablet 20:23: Daily, X [place] 17 30 day, # 30 tab, 3 Refill(s), Pharmacy: [facility] cyanocobala Yes 1,000 Memor ia min 1000 8-02 microgram l mcg 20:23: = 1 tab, [place] sublingual 13 SL, Daily, tablet # 30 tab, 2 Refill(s), Pharmacy: [facility] amitriptyli Yes 50 mg = 1 M emoria ne 50 mg 8-02 tab, PO, l oral tablet 20:23: Bedtime, # [place] 09 30 tab, 1 Refill(s), Pharmacy: [facility] rizatriptan Yes rizatripta Methodi (MAXALT) 5 8-02 [...] day, # 6 tab, 1 Refill(s), Pharmacy: [facility] amitriptyli No 50 mg = 1 M emoria ne 50 mg 7-13 tab, PO, l oral tablet 01:53: Bedtime, # [place] 00 30 tab, 1 Refill(s), Pharmacy: [facility] frovatripta No 2.5 mg = 1 Memoria n 2.5 mg 6-27 tab, PO, l oral tablet 15:37: Daily, PRN Luc[place] 00 for migraine headache, May repeat another dose at least 2 hours after the first dose, X 3 day, # 9 tab, 2 Refill(s), Pharmacy: [facility] eletriptan No See Memoria 40 MG Oral 6-25 Instructio l Tablet 23:35: ns, PO, [place] [Relpax] 00 Take 1-2 tabs orally at onset of migraine, may repeat dose once in 2 hours, X 3 day, # 6 tab, 1 Refill(s), Pharmacy: [facility] amitriptyli Yes 25 mg = 1 M emoria ne 25 mg 6-11 tab, PO, l oral tablet 21:16: Bedtime, # [place] 00 30 tab, 3 Refill(s), Pharmacy: [facility] cyanocobala Yes 1,000 Memor ia min 1000 6-07 microgram l mcg 19:39: = 1 tab, [place] sublingual 00 SL, Daily, tablet # 30 tab, 2 Refill(s), Pharmacy: [facility] 80 thiamine Yes 100 mg = 1 Mem oria 100 mg oral 5-17 tab, PO, l tablet 18:13: Daily, X [place] 00 30 day, # 30 tab, 3 Refill(s), Pharmacy: [facility] amitriptyli Yes 10 mg = 1 M emoria ne 10 mg 5-10 tab, PO, l oral tablet 20:44: Bedtime, # [place] 00 30 tab, 3 Refill(s), Pharmacy: [facility] gabapentin Yes 300 mg [...] day Ho spita 00 l bisoprolol Yes [id number] 10mg Take 1 U nivers 10 mg 1-11 tablet by ity of tablet 00:00: mouth [place] 00 daily. Medical Branch cyclobenzap Yes [id number] 10mg Take 1 Univers rine 10 mg 1-11 tablet by ity of tablet 00:00: mouth at [place] 00 bedtime. Medical Branch bisoprolol Yes [id number] 10mg Take 1 U nivers 10 mg 1-11 tablet by ity of tablet 00:00: mouth [place] 00 daily. Medical Branch cyclobenzap Yes [id number] 10mg Take 1 Univers rine 10 mg 1-11 tablet by ity of tablet 00:00: mouth at [place] 00 bedtime. Medical Branch bisoprolol Yes [id number] 10mg Take 1 U nivers 10 mg 1-11 tablet by ity of tablet 00:00: mouth [place] 00 daily. Medical Branch cyclobenzap Yes [id number] 10mg Take 1 Univers rine 10 mg [...] Medical Branch fluticasone Yes fluticason Methodi propionate 03-[address] (FLONASE) 00:00: propionate Ho spita 50 00 50 l mcg/actuati mcg/actuat on nasal ion nasal spray spray,susp ension fluticasone Yes Univer s 50 9-02 ity of mcg/actuati 00:00: [place] on nasal 00 Medical spray Branch fluticasone Yes Univer s 50 9-02 ity of mcg/actuati 00:00: [place] on nasal 00 Medical spray Branch fluticasone 2016-0 Yes Univer s 50 03-17 ity of mcg/actuati 00:00: [place] on nasal 00 Medical spray Branch Levothyroxi Levothyroxi Yes M.D. U T ne Sodium ne Sodium Physi ci TABS TABS ans Meloxicam Meloxicam Yes M.D. [place] TABS TABS Physici ans Amitriptyli Amitriptyli Yes M.D. U T ne HCl TABS ne HCl TABS P hysici ans Immunizations Ordered Filled Immunization Date Status Comments [facility] e Immunization Name Name Covid-19 Vaccine 2021-03-31 Completed Rosi esposito (Moderna), 00:00:00 Mrna-lnp, Shade Protein, Pf, 100 Mcg/0.5ml,IM Covid-19 Vaccine 2021-03-02 Completed Rosi esposito (Moderna), 00:00:00 Mrna-lnp, Shade Protein, Pf, 100 Mcg/0.5ml,IM TDAP 2016-07-24 Completed [facility] 00:00:00 [facility] Influenza Virus 2016-07-24 Completed Universit y of Vaccine Quad IM 3+ 00:00:00 [facility] TDAP 2016-07-24 Completed [facility] 00:00:00 [facility] Influenza Virus 2016-07-24 Completed Universit y of Vaccine Quad IM 3+ 00:00:00 [facility] TDAP 2016-07-24 Completed [facility] 00:00:00 [facility] Influenza Virus 2016-07-24 Completed Universit y of Vaccine Quad IM 3+ 00:00:00 [facility] Influenza Virus 2016-07-24 Completed Rosi solano Vaccine, No 00:00:00 Preserv, age 6 months and up Tdap- (Boostrix, 2016-07-24 Completed Rosi esposito Adacel) 00:00:00 Tdap- (Boostrix, 2010-01-18 Completed Rosi esposito Adacel) 00:00:00 Vital Signs Vital Name Observation Time Observation Value Comments Source Systolic blood 2021-10-10 20:19:00 141 mm[Hg] Univer sity of pressure [facility] Diastolic blood 2021-10-10 20:19:00 98 mm[Hg] Unive rsity of pressure [facility] Heart rate 2021-10-10 20:19:00 109 /min Universi ty of [facility] Body temperature 2021-10-10 20:19:00 36.94 Sole Univ ersity of [place] [facility] Respiratory rate 2021-10-10 20:19:00 18 /min Univ ersity of [facility] Body height 2021-10-10 20:19:00 160 cm Universi ty [facility] [place] [facility] [place] Body weight 2021-10-10 20:19:00 115.667 kg Universi ty [facility] [place] [facility] BMI 2021-10-10 20:19:00 45.17 kg/m2 Universi ty of [facility] Oxygen saturation in 2021-10-10 20:19:00 97 /min [facility] Arterial blood by [facility] Pulse oximetry Branch Systolic blood 2021-04-28 14:43:00 100 mm[Hg] Rosi Enriquezybold pressure Diastolic blood 2021-04-28 14:43:00 60 mm[Hg] Kelse y Seybold pressure Heart rate 2021-04-28 14:43:00 112 /min Rosi ballardboshabnam Body temperature 2021-04-28 14:43:00 37 Sole Agueda ey Seybold Respiratory rate 2021-04-28 14:43:00 16 /min Agueda ballard Seybold Body height 2021-04-28 14:43:00 157.5 cm Rosi S nelliebold Body weight 2021-04-28 14:43:00 113.853 kg Rosi S nelliebold BMI 2021-04-28 14:43:00 45.91 kg/m2 Rosi S nelliebold Systolic blood 2021-02-11 13:34:00 127 mm[Hg] Univer sity of pressure [facility] Diastolic blood 2021-02-11 13:34:00 87 mm[Hg] Unive rsity of pressure [facility] Heart rate 2021-02-11 13:34:00 100 /min Universi ty of [facility] Body height 2021-02-11 13:34:00 160 cm Universi ty of [facility] Body weight 2021-02-11 13:34:00 115.667 kg Universi ty of [facility] BMI 2021-02-11 13:34:00 45.17 kg/m2 [facility] Systolic (mm Hg) 2021-03-16 13:19:00 Lev rial [place] Diastolic (mm Hg) 2021-03-16 13:19:00 Mem orial [place] Heart Rate 2021-03-16 13:19:00 [facility] [place] Respitory Rate 2021-03-16 13:19:00 Memori al [place] Height 2021-03-16 13:19:00 152.4 cm [facility] [place] Weight 2021-03-16 13:19:00 [facility] [place] BMI Calculated 2021-03-16 13:19:00 Memori al [place] Systolic (mm Hg) 2021-02-01 18:35:00 Lev rial [place] Diastolic (mm Hg) 2021-02-01 18:35:00 Mem orial [place] Heart Rate 2021-02-01 18:35:00 [facility] [place] Respitory Rate 2021-02-01 18:35:00 Memori al [place] Height 2021-02-01 18:35:00 152.4 cm [facility] [place] Weight 2021-02-01 18:35:00 [facility] [place] BMI Calculated 2021-02-01 18:35:00 Memori al [place] Systolic (mm Hg) 2020-09-24 19:34:00 Lev rial [place] Diastolic (mm Hg) 2020-09-24 19:34:00 Mem orial [place] Heart Rate 2020-09-24 19:34:00 [facility] [place] Respitory Rate 2020-09-24 19:34:00 Memori al [place] Height 2020-09-24 19:34:00 160.02 cm [facility] [place] Weight 2020-09-24 19:34:00 [facility] [place] BMI Calculated 2020-09-24 19:34:00 Memori al [place] Respitory Rate 2020-02-26 16:32:00 Memori al [place] Systolic (mm Hg) 2020-02-26 16:32:00 Lev rial [place] Diastolic (mm Hg) 2020-02-26 16:32:00 Mem orial [place] Heart Rate 2020-02-26 16:00:00 [facility] [place] Respitory Rate 2020-02-26 16:00:00 Memori al [place] Systolic (mm Hg) 2020-02-26 16:00:00 Lev rial [place] Diastolic (mm Hg) 2020-02-26 16:00:00 Mem orial [place] Heart Rate 2020-02-26 15:50:00 [facility] [place] Respitory Rate 2020-02-26 15:50:00 Memori al [place] Systolic (mm Hg) 2020-02-26 15:50:00 Lev rial [place] Diastolic (mm Hg) 2020-02-26 15:50:00 Mem orial [place] Heart Rate 2020-02-26 15:40:00 [facility] [place] Temperature Oral (F) 2020-02-26 15:20:00 37.0 Sole [facility] [place] Temperature Oral (F) 2020-02-26 11:25:00 37.2 [facility] [place] Height 2020-02-26 11:25:00 158 cm [facility] Height 2020-02-18 16:59:00 158 cm [facility] [place] Systolic blood 2020-02-02 14:39:00 134 mm[Hg] [facility] pressure Diastolic blood 2020-02-02 14:39:00 64 mm[Hg] [facility] pressure Body height 2020-02-02 14:39:00 63 [in_us] [facility] Weight 2020-02-02 14:39:00 147 [lb_av] [facility] Body mass index 2020-02-02 14:39:00 26.04 kg/m2 [facility] (BMI) [Ratio] Heart Rate 2020-02-02 14:39:00 74 /min [facility] Systolic (mm Hg) 2020-01-15 20:04:00 [facility] [place] Diastolic (mm Hg) 2020-01-15 20:04:00 [facility] Heart Rate 2020-01-15 20:04:00 [facility] Respitory Rate 2020-01-15 20:04:00 [facility] Height 2020-01-15 20:04:00 152.4 cm [facility] [place] Weight 2020-01-15 20:04:00 [facility] [place] BMI Calculated 2020-01-15 20:04:00 [facility] [place] Systolic (mm Hg) 2019-12-02 20:40:00 [facility] [place] Diastolic (mm Hg) 2019-12-02 20:40:00 [facility] Heart Rate 2019-12-02 20:40:00 [facility] Respitory Rate 2019-12-02 20:40:00 [facility] Height 2019-12-02 20:40:00 152.4 cm [facility] [place] Weight 2019-12-02 20:40:00 [facility] [place] BMI Calculated 2019-12-02 20:40:00 [facility] [place] Weight 2019-02-14 19:40:00 [facility] [place] BMI Calculated 2019-02-14 19:40:00 [facility] [place] Height 2019-02-14 19:40:00 160.02 cm [facility] [place] Respitory Rate 2019-02-14 19:40:00 [facility] [place] Heart Rate 2019-02-14 19:40:00 [facility] Systolic (mm Hg) 2019-02-14 19:40:00 [facility] [place] Diastolic (mm Hg) 2019-02-14 19:40:00 [facility] [place] BMI Calculated 2018-12-24 20:38:00 [facility] [place] Weight 2018-12-24 20:38:00 [facility] Height 2018-12-24 20:38:00 157.48 cm [facility] Systolic (mm Hg) 2018-12-24 20:38:00 [facility] [place] Diastolic (mm Hg) 2018-12-24 20:38:00 [facility] [place] Respitory Rate 2018-12-24 20:38:00 [facility] [place] Heart Rate 2018-12-24 20:38:00 [facility] Height 2018-12-20 19:20:00 152.4 cm [facility] BMI Calculated 2018-12-20 19:20:00 [facility] [place] Weight 2018-12-20 19:20:00 [facility] Systolic (mm Hg) 2018-12-20 19:20:00 [facility] [place] Diastolic (mm Hg) 2018-12-20 19:20:00 [facility] [place] Heart Rate 2018-12-20 19:20:00 [facility] [place] Respitory Rate 2018-12-20 19:20:00 [facility] [place] Systolic (mm Hg) 2018-11-22 19:23:00 [facility] [place] Diastolic (mm Hg) 2018-11-22 19:23:00 [facility] Respitory Rate 2018-11-22 19:23:00 Carissa Redman Height 2018-11-22 19:23:00 157.48 cm [facility] Weight 2018-11-22 19:23:00 [facility] BMI Calculated 2018-11-22 19:23:00 Carissa Redman Heart Rate 2018-11-22 19:23:00 [facility] Procedures Procedure Date / Time Performing Clinician Source Performed CONSENT/REFUSAL FOR 2021-10-10 20:09:22 Doctor Unassigned, [facility] DIAGNOSIS AND TREATMENT [facility] MRI SPINE EXTERNAL STUDY 2021-04-29 16:16:04 Tony Gray [facility] MR Ankle wo contrast [id number] 2020-07-02 00:00:00 [facility] [MMD] US Lower Extremity 2020-05-31 00:00:00 [facility] Venous Doppler Bilateral Post Op Promis 29 Survey 2020-03-12 00:00:00 [facility] APPLICATION SHORT LEG 2020-02-26 13:13:00 Carissa Monteiroann SPLINT-CALF TO FOOT 77865 (Left)<sup>1</sup> ARTHROSCOPY ANKLE 2020-02-26 13:13:00 [facility] Luis ermann 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 28560 (Left)<sup>2</sup> OPEN REDUCTION INTERNAL 2020-02-26 13:13:00 [facility] [place] FIXATION TALUS FRACTURE 38499 (Left)<sup>3</sup> [L] 2019 Novel Coronavirus 2020-02-05 00:00:00 [facility] (COVID-19), MARK [UTP] Ortho - Surgery 2020-02-02 00:00:00 [facility] Scheduling Cholecystectomy [facility] Breast reduction, [facility] nn bilateral Bunionectomy [facility] Carpal tunnel syndrome of [facility] anish [place] right wrist Plantar fasciitis of left [facility] [place] foot History of Breast [facility] reduction History of Carpal tunnel [facility] surgery Plan of Care Planned Activity Planned Date Details Comments Source Future Scheduled 2021-08-16 Hepatitis C [facility] ospital Test 19:56:30 screening (procedure) [code = 212467761] Future Scheduled 2021-08-16 Screening for [facility] Test 19:56:30 malignant neoplasm of cervix (procedure) [code = 959452151] Future Scheduled 2021-08-16 [facility]INE [facility] Test 19:56:30 [code = INFLUENZA VACCINE] Future Scheduled 2021-08-16 COVID-19 VACCINE ([facility] Test 19:56:30 - Booster for Moderna series) [code = COVID-19 VACCINE (3 - Booster for Moderna series)] Diagnostic Test 2020-02-02 [UT[facility]] [facility] Pending 00:00:00 Surgery Scheduling [code = [UTP] Ortho - Surgery Scheduling] Encounters Start End Encounter Admission Attending Care Care Encounter Source Date/Time Date/Time Type Type Clinicians Facility Department ID 2021-08-10 Outpatient Garcia, [facility] [id number] Common 13:49:13 Avnee [id number] [facility] 2021-08-10 Outpatient Garcia, [facility] [id number] Common 13:47:59 Avnee [id number] [facility] 2021-08-10 Outpatient Garcia, [facility] [id number] Common 13:43:00 Avnee [id number] [facility] 2021-08-10 Outpatient Garcia, [facility] [id number] Common 13:37:06 Avnee [id number] [facility] 2021-08-10 Outpatient Garcia, [facility] [id number] Common 13:23:50 Avnee [id number] [facility] 2021-08-10 Outpatient Garcia, [facility] [id number] Common 13:22:32 Avnee [id number] [facility] 2021-08-10 Outpatient Garcia, [facility] [id number] Common 13:09:55 Avnee [id number] [facility] 2021-05-15 Outpatient Scott PERES [facility] JOSE [id number] Univers 06:58:12 ESTER [facility] 2021-10-10 2021-10-10 Emergency X YARELY [facility] ERT [id number] Univers 15:21:00 15:42:00 CAT rm [facility] 2021-10-10 2021-10-10 Emergency [place], [facility] [id number] [id number] Univers 15:21:00 15:42:00 Cat DUMONT [id number] [facility] [phone] [address] 2021-10-10 2021-10-10 Outpatient ROSI ALARCON [id number] Rosi 00:00:00 00:00:00 ALFONZO Seybol d 2021-09-09 2021-09-09 Outpatient ROSI ALARCON [id number] Rosi 00:00:00 00:00:00 ALFONZO Seybol d 2021-08-26 2021-08-26 Outpatient ROSI ALARCON [id number] Rosi 00:00:00 00:00:00 ALFONZO Seybol d 2021-07-05 2021-07-05 Outpatient ROSI ALARCON [id number] Rosi 00:00:00 00:00:00 ALFONZO Seybol d 2021-07-05 2021-07-05 Outpatient ROSI ALARCON [id number] Rosi 00:00:00 00:00:00 ALFONZO Seybol d 2021-06-02 2021-06-02 Outpatient ROSI ALARCON [id number] Rosi 00:00:00 00:00:00 ALFONZO Seybol d 2021-05-23 2021-05-23 Documentat [place] 1.2.840.1 [id number] Methodkylah 00:00:00 00:00:00 mariia Hdz [address]75.1.[address] 3.430.2.7 Hospit a .3.154803 l .8 2021-05-18 2021-05-18 [facility] 1.2.840.1 [id number] Methodi 12:57:38 23:59:[id number] 3.430.2.7 Hospit a .3.935676 l .8 2021-05-18 2021-05-18 Office [place] 1.2.840.1 [id number] Methodi 12:19:03 15:18:57 Visit Tony Hdz 59139.1.[address] 3.430.2.7 Hospit a .3.221948 l .8 2021-05-18 2021-05-18 Outpatient [facility] [id number] [place] 00:00:00 00:00:[address] 2021-05-18 2021-05-18 Orders [place] 1.2.840.1 [id number] Methodi 00:00:00 00:00:00 Only Tony Hdz 58003.1.[address] 3.430.2.7 Hospit a .3.920220 l .8 2021-05-16 2021-05-16 Outpatient ROSI ALARCON [id number] Rosi 00:00:00 00:00:00 ALFONZO armendariz 2021-05-11 2021-05-11 Outpatient ROSI ALARCON [id number] Rosi 00:00:00 00:00:00 ALFONZO armendariz 2021-05-11 2021-05-11 Outpatient ROSI ALARCON [id number] Rosi 00:00:00 00:00:00 ALFONZO armendariz 2021-04-28 2021-04-28 Office Jered Alarcon 1.2.840.114 [id number] Rosi 09:39:43 10:09:43 Visit Alfonzo Montenegro 350.1.13.13 Se russ Orantes 1.2.7.2.686 [id number] 2021-04-27 2021-04-27 Ambulatory nullFlavo MNA [id number] Memoria 15:15:00 15:15:00 Pre-Reg r Neurology 13 l [place] 2021-04-21 2021-04-21 ambulatory STLMLC STLMLC [id number] Common 00:00:00 00:00:00 [facility] 2021-04-12 2021-04-12 Outpatient STLMLC STLMLC [id number] Common 00:00:00 00:00:00 [facility] 2021-04-06 2021-04-06 ambulatory STLMLC STLMLC [id number] Common 00:00:00 00:00:00 [facility] 2021-03-31 2021-03-31 Outpatient STLMLC STLMLC [id number] Common 00:00:00 00:00:00 [facility] 2021-03-30 2021-03-30 Outpatient STLMLC STLMLC [id number] Common 00:00:00 00:00:00 [facility] 2021-03-30 2021-03-30 Outpatient STLMLC STLMLC [id number] Common 00:00:00 00:00:00 [facility] 2021-03-28 2021-03-28 Outpatient ROYCE DELEON [facility] [id number] Univers 10:30:00 10:30:00 [id number] [facility] 2021-03-28 2021-03-28 Outpatient Scott PRUETT [facility] [id number] Univers 10:30:00 10:30:00 [facility] 2021-03-16 2021-03-17 Outpatient nullFlavo MNA [id number] Memoria 13:15:00 04:59:59 r Neurology 12 l [place] 2021-03-17 2021-03-17 Outpatient STLMLC STLMLC [id number] Common 00:00:00 00:00:00 [facility] 2021-02-23 2021-02-23 Outpatient STLMLC STLMLC [id number] Common 00:00:00 00:00:00 [facility] 2021-02-21 2021-02-21 Outpatient STLMLC STLMLC [id number] Common 00:00:00 00:00:00 [facility] 2021-02-16 2021-02-16 Outpatient STLMLC STLMLC [id number] Common 00:00:00 00:00:00 [facility] 2021-02-15 2021-02-15 Outpatient STLMLC STLMLC [id number] Common 00:00:00 00:00:00 [facility] 2021-02-11 2021-02-11 [facility] [id number] Univers 08:15:00 08:56:02 ESTER [facility] 2021-02-11 2021-02-11 [facility] [id number] Univers 08:13:08 08:56:02 Visit Ester [facility] 350.1.13.10 it y of SURGICAL 4.2.7.2.686 [place] as SPECIALTI [id number] Mn dical ES 198 [facility] 2021-02-11 2021-02-11 [address] [facility] [id number] Univers 08:15:00 08:15:00 ESTER [id number] [facility] 2021-02-10 2021-02-10 Outpatient [facility] [id number] Univers 13:00:00 13:00:00 MG [id number] [facility] 2021-02-10 2021-02-10 [facility] [id number] Univers 13:00:00 13:00:00 MG [facility] 2021-02-03 2021-02-03 Outpatient Scott WOOD [facility] [id number] Univers 10:30:00 10:30:00 MG [id number] [facility] 2021-02-03 2021-02-03 Out[facility] [id number] Univers 10:30:00 10:30:00 MG [facility] 2021-02-01 2021-02-02 Outpatient nullFlavo MNA [id number] Memoria 18:30:00 04:59:59 r Neurology 11 l [place] 2021-01-20 2021-01-20 Outpatient STLMLC STLMLC [id number] Common 00:00:00 00:00:00 [facility] 2021-01-14 2021-01-14 Outpatient STLMLC STLMLC [id number] Common 00:00:00 00:00:00 [facility] 2020-12-23 2020-12-23 Outpatient R ALANNAH [facility] [id number] Univers 10:00:00 10:00:00 DEMETRIA [facility] 2020-12-23 2020-12-23 Outpatient Scott WESLEY, [facility] [id number] Univers 09:00:00 09:00:00 WONDIFUL [id number] ity o f [facility] 2020-12-23 2020-12-23 Outpatient Scott OLSON [facility] [id number] Univers 09:00:00 09:00:00 WONDIFUL ity o f [facility] 2020-12-16 2020-12-16 Outpatient Scott WOOD [facility] [id number] Univers 10:30:00 10:30:00 MG [id number] [facility] 2020-12-16 2020-12-16 Outpatient Scott WOOD [facility] [id number] Univers 10:30:00 10:30:00 MG [facility] 2020-12-15 2020-12-15 Outpatient STLMLC STLMLC [id number] Common 00:00:00 00:00:00 [facility] 2020-12-15 2020-12-15 Outpatient STLMLC STLMLC [id number] Common 00:00:00 00:00:00 [facility] 2020-12-06 2020-12-06 Outpatient Scott WOOD [facility] [id number] Univers 15:30:00 15:30:00 MG [id number] [facility] 2020-12-06 2020-12-06 Outpatient Scott WOOD [facility] [id number] Univers 15:30:00 15:30:00 MG [facility] 2020-11-25 2020-11-25 Outpatient ROYCE PRUETT [facility] [id number] Univers 09:00:00 09:00:00 [id number] [facility] 2020-11-25 2020-11-25 Outpatient ROYCE DELEON [facility] [id number] Univers 09:00:00 09:00:00 [facility] 2020-11-11 2020-11-11 Outpatient ROYCE DELEON [facility] [id number] Univers 15:30:00 15:30:00 [id number] [facility] 2020-11-11 2020-11-11 Outpatient ORYCE DELEON [facility] [id number] Univers 15:30:00 15:30:00 ity [facility] 2020-11-04 2020-11-04 Outpatient R JACQUELINE [facility] [id number] Univers 10:00:00 10:00:00 EMELYN [id number] [facility] 2020-11-04 2020-11-04 Outpatient R JACQUELINE [facility] [id number] Univers 10:00:00 10:00:00 EMELYN [facility] 2020-10-28 2020-10-28 Outpatient Scott WOOD [facility] [id number] Univers 10:45:00 10:45:00 MG [id number] [facility] 2020-10-28 2020-10-28 Outpatient Scott WOOD [facility] [id number] Univers 10:45:00 10:45:00 MG [facility] 2020-10-25 2020-10-25 Outpatient Scott WOOD [facility] [id number] Univers 14:45:00 14:45:00 MG [id number] [facility] 2020-10-25 2020-10-25 Outpatient Scott WOOD [facility] [id number] Univers 14:45:00 14:45:00 MG [facility] 2020-10-15 2020-10-15 Outpatient Scott WOOD [facility] [id number] Univers 10:00:00 10:00:00 MG [id number] [facility] 2020-10-15 2020-10-15 Outpatient Scott WOOD [facility] [id number] Univers 10:00:00 10:00:00 MG [facility] 2020-10-08 2020-10-08 Outpatient R [facility] [id number] Univers 09:30:00 09:30:00 [id number] [facility] 2020-10-08 2020-10-08 Outpatient R JA [facility] [id number] Univers 09:30:00 09:30:00 [facility] 2020-10-08 2020-10-08 Outpatient R BRITTNEY [facility] [id number] Univers 09:15:00 09:15:00 OSCAR [facility] 2020-09-24 2020-09-25 Outpatient nullFlavo MNA [id number] Memoria 19:00:00 05:59:59 r Neurology 10 l Nik Segovia 2020-09-24 2020-09-24 [facility] [id number] Univers 09:45:00 09:45:00 MG [id number] [facility] 2020-09-24 2020-09-24 [facility] [id number] Univers 09:45:00 09:45:00 [facility] 2020-09-21 2020-09-21 [facility] [id number] Univers 14:00:00 14:00:00 ESTER [id number] [facility] 2020-09-21 2020-09-21 [address] [facility] [id number] Univers 00:00:00 00:00:00 [facility] 2020-09-09 2020-09-[address] [facility] [id number] Univers 09:15:00 09:15:00 ESTER [id number] [facility] 2020-09-09 2020-09-09 [facility] [id number] Univers 09:15:00 09:15:00 [facility] 2020-09-06 2020-09-06 Ambulatory nullFlavo MNA [id number] Memoria 16:30:00 16:30:00 Pre-Reg r Neurology 09 l Nik Segovia 2020-07-14 2020-07-14 Outpatient R [facility] [id number] Univers 19:00:00 19:00:00 [id number] [facility] 2020-07-14 2020-07-14 Outpatient R CHRISTIANNE, [facility] [id number] Univers 19:00:00 19:00:00 BROOKE esrrano [facility] 2020-07-02 2020-07-02 [facility] [id number] [place] 14:30:00 14:30:00 t; RAJI JEAN BAPTISTE, - Sugar Phys ici RAJI, DPM [place] 2 ans DPM 2020-06-01 2020-06-01 Ambulatory nullFlavo [facility] [id number] Memoria 20:00:00 20:00:00 Pre-Reg r Neurology 08 l [place] 2020-05-31 2020-05-31 [facility] [id number] [place] 10:00:00 10:00:00 t; RAJI JEAN BAPTISTE, - [place] Phys ici RAJI, DPM [place] 2 [place] DPM 2020-05-10 2020-05-10 Steven JEAN [facility]AP[facility]ISTE [facility] Orthopedics [id number] [place] 09:00:00 09:00:00 t; RAJI JEAN BAPTISTE, - Sugar Phys ici RAJI, DPM [place] 2 ans DPM 2020-04-27 2020-04-27 Steven JEAN [facility]ISTE [facility] Orthopedics [id number] [place] 14:45:00 14:45:00 t; RAJI JEAN BAPTISTE, - [place] Phys ici RAJI, DPM [place] 2 [place] DPM 2020-03-29 2020-03-29 [facility] [id number] [place] 13:00:00 13:00:00 t; RAJI JEAN BAPTISTE, - [place] Phys ici RAJI, DPM [place] 2 [place] DPM 2020-03-08 2020-03-08 Steven JEAN BAP[facility]ISTE [facility] Orthopedics [id number] [place] 11:15:00 11:15:00 t; RAJI JEAN BAPTISTE, - [place] Phys ici RAJI, DPM [place] 2 [place] DPM 2020-02-26 2020-02-26 Outpatient nullFlavo [facility] [id number] Memoria 10:46:09 16:30:00 r [facility] 2020-02-26 2020-02-26 Steven JEAN [facility] Orthopedics [id number] [place] 10:30:00 10:30:00 t; RAJI JEAN BAPTISTE, - [place] Phys ici RAJI, DPM [place] 2 [place] DPM 2020-02-02 2020-02-02 Appointmen NEAL JEAN BAPTISTE [facility] [id number] [place] 10:45:00 10:45:00 t; RAJI JEAN BAPTISTE, - [place] Phys ici RAJI, LARA [place] 2 ans DPM 2020-01-15 2020-01-16 Outpatient nullFlavo MNA [id number] Memoria 20:00:00 04:59:59 r Neurology 07 l [place] 2020-01-15 2020-01-15 Ambulatory nullFlavo MNA [id number] Memoria 20:00:00 20:00:00 Pre-Reg r Neurology 06 l [place] 2019-12-02 2019-12-03 Outpatient nullFlavo MNA [id number] Memoria 20:30:00 04:59:59 r Neurology 05 l [place] 2019-05-23 2019-05-23 Ambulatory nullFlavo MNA [id number] Memoria 19:15:00 19:15:00 Pre-Reg r Neurology 04 l [place] 2019-03-23 2019-03-23 Emergency Harish, [facility] [id number] 12:37:57 13:11:00 Palomo Dumont 350.1.13.10 [place] 4.2.7.2.686 [place] [id number] 2019-03-23 2019-03-23 Orders Doctor SPENSER [id number] [id number] 00:00:00 00:00:00 Only Unassigned, MARIA ELENA 350.1.13.10 [place] [address].2.7.2.686 [id number] 2019-02-14 2019-02-15 Outpatient nullFlavo MNA [id number] Memoria 20:00:00 04:59:59 r Neurology 02 l Nik Segovia 2018-12-24 2018-12-25 Outpatient nullFlavo MNA [id number] Memoria 20:15:00 04:59:59 r Neurology 03 l [place] 2018-12-20 2018-12-21 Outpatient nullFlavo MNA [id number] Memoria 18:45:00 04:59:59 r Neurology 01 l Nik Segovia 2018-11-22 2018-11-23 Outpatient nullFlavo MNA [id number] Memoria 19:45:00 04:59:59 r Neurology 00 l [place] Results Test Description Test Time Test Comments Results Result Comments Source LABORATORY 2020-02-18 17:38:00 Test Item Value Reference Range Interpretation Comme nts Glucose Lvl (test code = Glucose Lvl) 89 70-99 [place] [id number] 17:38:00 Test Item Value Reference Range Interpretation Comments BUN (test code = BUN) 12 7-22 [facility]FXIRAXADMU8025-01-27 17:38:00 Test Item Value Reference Range Interpretation Comments Creatinine (test code = Creatinine) 0.79 0.50-1.40 [facility]OrizaoiXOZMUFYFZL7677-63-75 17:38:00 Test Item Value Reference Range Interpretation Comments Sodium Level (test code = Sodium Level) 141 135-145 [place] 160060-08-05 17:38:00 Test Item Value Reference Range Interpretation Comments Potassium Level (test code = Potassium 4.5 3.5-5.1 Level) [facility]NffblmmXWHCBLKODM7555-60-70 17:38:00 Test Item Value Reference Range Interpretation Comments Chloride Level (test code = Chloride 108 95-109 Level) [facility]villeHoqvhmkSBBLLAUVFN1955-73-25 17:38:00 Test Item Value Reference Range Interpretation Comments Total Carbon Dioxide Level (test code = 24 24-32 Total Carbon Dioxide Level) [facility]villeYukvfaoNVXFZZDEWV0811-28-73 17:38:00 Test Item Value Reference Range Interpretation Comments AGAP (test code = AGAP) 13.5 10.0-20.0 [facility]villeUbmxvlhSAWPWYOSPS0157-07-83 17:38:00 Test Item Value Reference Range Interpretation Comments Calcium Level (test code = Calcium 9.5 8.5-10.5 Level) [facility]villeKwmoonzRWETFSMYMG5569-04-49 17:38:00 Test Item Value Reference Range Interpretation Comments eGFR (test code = eGFR) 92 [facility]villeQsbsdeeGHJMOODGGD4785-64-98 17:38:00 Test Item Value Reference Range Interpretation Comments Results (test code = Reported (02/18/20 12:38 Results) PM) [place] 160060-08-05 17:38:00 Test Item Value Reference Range Interpretation Comments White Blood Count (test code = White 6.4 3.7-10.4 Blood Count) [facility]villeWnfstulLJBJMNCEFM8548-12-65 17:38:00 Test Item Value Reference Range Interpretation Comments Red Blood Cell Count (test code = Red 4.37 4.20-5.40 Blood Cell Count) [facility]villeAtakjyoNKXHXOGOZR6192-81-31 17:38:00 Test Item Value Reference Range Interpretation Comments Hemoglobin (test code = Hemoglobin) 12.7 12.0-16.0 [facility]villeWtxafinGGXOTFZJWK3977-87-40 17:38:00 Test Item Value Reference Range Interpretation Comments Hematocrit (test code = Hematocrit) 38.3 36.0-48.0 [facility]villeVtximmbFEPRYIGKVQ4435-39-15 17:38:00 Test Item Value Reference Range Interpretation Comments MCV (test code = MCV) 87.5 80.0-98.0 [facility]villeZsudyemTDZQTTJQFH9454-73-90 17:38:00 Test Item Value Reference Range Interpretation Comments MCH (test code = MCH) 29.2 pg 27.0-31.0 [facility]villeXcpxrgsCEKUMRKUKA4367-81-01 17:38:00 Test Item Value Reference Range Interpretation Comments MCHC (test code = MCHC) 33.3 32.0-36.0 [facility]villeOqdpeetMWVSGNAUPU6531-90-76 17:38:00 Test Item Value Reference Range Interpretation Comments RDW (test code = RDW) 14.2 11.5-14.5 [facility] [id number] 17:38:00 Test Item Value Reference Range Interpretation Comments Platelet (test code = Platelet) 300 133-450 [facility] [id number] 17:38:00 Test Item Value Reference Range Interpretation Comments MPV (test code = MPV) 8.3 7.4-10.4 [facility] [id number] 17:38:00 Test Item Value Reference Range Interpretation Comments NRBCs # (test code = NRBCs #) 0.1 0.4-2.2 Kristina [place] [id number] 17:38:00 Test Item Value Reference Range Interpretation Comments Results (test code = Reported (02/18/20 12:38 Results) PM) [id number] 17:38:00 Test Item Value Reference Range Interpretation Comments Neutrophil % (test code = Neutrophil %) 62.2 45.0-75.0 [facility] [id number] 17:38:00 Test Item Value Reference Range Interpretation Comments Monocyte % (test code = Monocyte %) 6.8 2.0-12.0 [id number] 17:38:00 Test Item Value Reference Range Interpretation Comments Lymphocyte % (test code = Lymphocyte %) 26.9 20.0-40.0 [id number] 17:38:00 Test Item Value Reference Range Interpretation Comments Eosinophil # (test code 3.6 See_Comment [Au tomated message] The = Eosinophil #) system which generated this result tra nsmitted reference range : <=4.0. The reference r karan was not used to int erpret this result as normal/abnormal . [id number] 17:38:00 Test Item Value Reference Range Interpretation Comments Basophil % (test code = 0.5 See_Comment [Au tomated message] The Basophil %) system which ge nerated this result tra nsmitted reference range : <=1.0. The reference r karan was not used to int erpret this result as normal/abnormal . [id number] 17:38:00 Test Item Value Reference Range Interpretation Comments Neutrophil # (test code = Neutrophil #) 4.0 1.5-8.1 [id number] 17:38:00 Test Item Value Reference Range Interpretation Comments Lymphocyte # (test code = Lymphocyte #) 1.7 1.0-5.5 [id number] 17:38:00 Test Item Value Reference Range Interpretation Comments Monocyte # (test code = 0.4 See_Comment [Au tomated message] The Monocyte #) system which ge nerated this result tra nsmitted reference range : <=0.8. The reference r karan was not used to int erpret this result as normal/abnormal . [id number] 17:38:00 Test Item Value Reference Range Interpretation Comments Eosinophil % (test code 0.2 See_Comment [Au tomated message] The = Eosinophil %) system which generated this result tra nsmitted reference range : <=0.5. The reference r karan was not used to int erpret this result as normal/abnormal . [facility] [id number] 17:38:00 Test Item Value Reference Range Interpretation Comments Results (test code = Reported (02/18/20 12:38 Results) PM) Naresh Segovia
[2022-01-02] MEDS ORDERED: KETOROLAC 30 MG/ML INJ ONE (11:04)
[2022-01-02] MEDS ORDERED: dexAMETHasone 10 MG/ML VIAL ONE (11:04)
--- NOTE | 2022-01-02 11:05 | EDPHYS ---
Physician Documentation [facility] Name: Trudi Villavicencio Age: 46 yrs Sex: Female : 1975 Arrival Date: 01/02/2022 Time: 09:43 Bed 15 Private MD: SLY Physician Giuseppe Akers HPI: 01/02 10:55 This 46 yrs old Female presents to ER via Wheelchair with complaints of Back rosa Pain. 10:55 The patient presents with pain that is chronic, with no known mechanism of injury, and rosa decreased range of motion. The symptoms are located in the thoracic area, lumbar area and sacrum. Onset: The symptoms/episode began/occurred 2 week(s) ago. The pain does not radiate. Associated signs and symptoms: The patient has no apparent associated signs or symptoms. The problem was sustained from unknown cause. Modifying factors: The patient symptoms are alleviated by remaining still, rest, the patient symptoms are aggravated by lifting, movement. Severity of symptoms: At their worst the symptoms were mild, in the emergency department the symptoms are unchanged. The patient has experienced similar episodes in the past, multiple times. Historical: - Allergies: 09:56 Aspirin; aa5 09:56 Codeine; aa5 09:56 Topamax; aa5 09:56 topiramate; aa5 09:56 tramadol; aa5 - PMHx: 09:56 Asthma; bleeding ulcer; Degenerative disc disease; DGD; enlarged aorta; erosive aa5 gastritis; Fibromyalgia; Herniated disc; herniated disk; neuropathy; Chronic back pain; - PSHx: 09:56 Cholecystectomy; aa5 - Immunization history:: Adult Immunizations unknown. - Social history:: Smoking status: Patient denies any tobacco usage or history of. - Family history:: not pertinent. ROS: 10:55 Constitutional: Negative for fever, chills, and weight loss, Eyes: Negative for injury, rosa pain, redness, and discharge, ENT: Negative for injury, pain, and discharge, Neck: Negative for injury, pain, and swelling, Cardiovascular: Negative for chest pain, palpitations, and edema, Respiratory: Negative for shortness of breath, cough, wheezing, and pleuritic chest pain, Abdomen/GI: Negative for abdominal pain, nausea, vomiting, diarrhea, and constipation, : Negative for injury, bleeding, discharge, and swelling, MS/Extremity: Negative for injury and deformity, Skin: Negative for injury, rash, and discoloration, Neuro: Negative for headache, weakness, numbness, tingling, and seizure, Psych: Negative for depression, anxiety, suicide ideation, homicidal ideation, and hallucinations, Allergy/Immunology: Negative for hives, rash, and allergies, Endocrine: Negative for neck swelling, polydipsia, polyuria, polyphagia, and marked weight changes, Hematologic/Lymphatic: Negative for swollen nodes, abnormal bleeding, and unusual bruising. 10:55 Back: Positive for decreased range of motion, pain at rest, pain with movement, of the thoracic area, lumbar area and sacrum. Exam: 10:55 Constitutional: This is a well developed, well nourished patient who is awake, alert, rosa and in no acute distress. Head/Face: Normocephalic, atraumatic. Eyes: Pupils equal round and reactive to light, extra-ocular motions intact. Lids and lashes normal. Conjunctiva and sclera are non-icteric and not injected. Cornea within normal limits. Periorbital areas with no swelling, redness, or edema. ENT: Nares patent. No nasal discharge, no septal abnormalities noted. Tympanic membranes are normal and external auditory canals are clear. Oropharynx with no redness, swelling, or masses, exudates, or evidence of obstruction, uvula midline. Mucous membranes moist. Neck: Trachea midline, no thyromegaly or masses palpated, and no cervical lymphadenopathy. Supple, full range of motion without nuchal rigidity, or vertebral point tenderness. No Meningismus. Chest/axilla: Normal chest wall appearance and motion. Nontender with no deformity. No lesions are appreciated. Cardiovascular: Regular rate and rhythm with a normal S1 and S2. No gallops, murmurs, or rubs. Normal PMI, no JVD. No pulse deficits. Respiratory: Lungs have equal breath sounds bilaterally, clear to auscultation and percussion. No rales, rhonchi or wheezes noted. No increased work of breathing, no retractions or nasal flaring. Abdomen/GI: Soft, non-tender, with normal bowel sounds. No distension or tympany. No guarding or rebound. No evidence of tenderness throughout. Skin: Warm, dry with normal turgor. Normal color with no rashes, no lesions, and no evidence of cellulitis. MS/ Extremity: Pulses equal, no cyanosis. Neurovascular intact. Full, normal range of motion. Neuro: Awake and alert, GCS 15, oriented to person, place, time, and situation. Cranial nerves II-XII grossly intact. Motor strength 5/5 in all extremities. Sensory grossly intact. Cerebellar exam normal. Normal gait. Psych: Awake, alert, with orientation to person, place and time. Behavior, mood, and affect are within normal limits. 10:55 Back: pain, that is mild, that is moderate, ROM is painful, normal spinal alignment noted, CVA tenderness, is absent, vertebral tenderness, is not appreciated. Vital Signs: 09:56 BP 109 / 72; Pulse 73; Resp 18 S; Temp 97.9(TE); Pulse Ox 100% on R/A; Weight 117.48 kg aa5 (R); Height 5 ft. 3 in. (160.02 cm) (R); 09:56 Body Mass Index 45.88 (117.48 kg, 160.02 cm) aa5 MDM: 10:06 Patient medically screened. rosa Administered Medications: 11:03 Drug: Decadron (dexamethasone) 10 mg Route: IM; Site: left gluteus; ww 11:05 Drug: Ketorolac 30 mg Route: IM; Site: left gluteus; ww Disposition Summary: 01/02/22 11:04 Discharge Ordered Location: Home rosa Problem: new rosa Symptoms: have improved rosa Condition: Stable rosa Diagnosis - Low back pain rosa - Cervical disc disorder with radiculopathy, cervicothoracic region rosa - Intervertebral disc disorders with radiculopathy, lumbosacral region rosa Followup: rosa - With: Private Physician - When: 2 - 3 days - Reason: Recheck today's complaints, Continuance of care, Re-evaluation by your physician Followup: rosa - With: Jimmy Amaro MD - When: 2 - 3 days - Reason: Recheck today's complaints, Continuance of care, Re-evaluation by your physician Discharge Instructions: - Discharge Summary Sheet rosa - Acute Back Pain, Adult rosa - Chronic Back Pain rosa - Cervical Radiculopathy rosa - Herniated Disk rosa - Lumbosacral Radiculopathy rosa - Musculoskeletal Pain rosa - Back Injury Prevention, Eahi-sz-Mftk rosa - Chronic Back Pain, Ciec-cc-Pmfi rosa - Back Exercises, Pibw-jk-Ymtz [facility] Forms: - Medication Reconciliation Form [facility] - Thank You Letter rosa - Antibiotic Education [facility] - Prescription Opioid Use [facility] Prescriptions: - Protonix 40 mg Oral Tablet - take 1 tablet by ORAL route once daily; 30 tablet; Refills: 0, Product rosa Selection Permitted - Tylenol 325 mg Oral Tablet - take 2 tablets by ORAL route every 6 hours as needed; 1 bottle; Refills: 0, [facility] Product Selection Permitted - Medrol (Flako) 4 mg Oral Tablets, Dose Pack - take 1 tablet by ORAL route as directed - follow package instructions; 1 rosa packet; Refills: 0, Product Selection Permitted - Cyclobenzaprine 5 mg Oral Tablet - take 1 tablet by ORAL route 3 times per day As needed; 15 tablet; Refills: 0, [facility] Product Selection Permitted Signatures: Giuseppe Akers MD MD cha Calderon, Audri, RN RN aa5 Debby Mcneil RN RN ww
--- NOTE | 2022-01-02 11:05 | ER ---
Nurse's Notes [facility] Name: Trudi Villavicencio Age: 46 yrs Sex: Female : 1975 Arrival Date: 01/02/2022 Time: 09:43 Bed 15 Private MD: Diagnosis: Low back pain;Cervical disc disorder with radiculopathy, cervicothoracic region;Intervertebral disc disorders with radiculopathy, lumbosacral region Presentation: 01/02 09:56 Chief complaint: Patient states: chronic back pain that became worse after fall 2 weeks aa5 ago, pt states "I went to sit down and I thought there was a chair there but there wasn't". Coronavirus screen: At this time, the client does not indicate any symptoms associated with coronavirus-19. Ebola Screen: No symptoms or risks identified at this time. Initial Sepsis Screen: Does the patient meet any 2 criteria? No. Patient's initial sepsis screen is negative. Does the patient have a suspected source of infection? No. Patient's initial sepsis screen is negative. Risk Assessment: Do you want to hurt yourself or someone else? Patient reports no desire to harm self or others. Onset of symptoms was December 2021. 09:56 Method Of Arrival: Wheelchair aa5 09:56 Acuity: HOWIE 4 aa5 Historical: - Allergies: 09:56 Aspirin; aa5 09:56 Codeine; aa5 09:56 Topamax; aa5 09:56 topiramate; aa5 09:56 tramadol; aa5 - PMHx: 09:56 Asthma; bleeding ulcer; Degenerative disc disease; DGD; enlarged aorta; erosive aa5 gastritis; Fibromyalgia; Herniated disc; herniated disk; neuropathy; Chronic back pain; - PSHx: 09:56 Cholecystectomy; aa5 - Immunization history:: Adult Immunizations unknown. - Social history:: Smoking status: Patient denies any tobacco usage or history of. - Family history:: not pertinent. Screenin:45 Abuse screen: Denies threats or abuse. Denies injuries from another. Nutritional ww screening: No deficits noted. Tuberculosis screening: No symptoms or risk factors identified. Fall Risk None identified. Assessment: 11:00 General: Appears uncomfortable, Behavior is cooperative, crying. Pain: Complains of ww pain in back and buttocks. Neuro: Level of Consciousness is awake, alert, obeys commands, Oriented to person, place, time, situation, Moves all extremities. Cardiovascular: Patient's skin is warm and dry. Chest pain is denied. Respiratory: Airway is patent Respiratory effort is even, unlabored, Respiratory pattern is regular, symmetrical. Musculoskeletal: Reports pain in back and buttocks. Vital Signs: 09:56 BP 109 / 72; Pulse 73; Resp 18 S; Temp 97.9(TE); Pulse Ox 100% on R/A; Weight 117.48 kg aa5 (R); Height 5 ft. 3 in. (160.02 cm) (R); 09:56 Body Mass Index 45.88 (117.48 kg, 160.02 cm) aa5 ED Course: 09:43 Patient arrived in ED. am2 09:55 Arm band placed on. aa5 09:58 Triage completed. aa5 10:00 Debby Mcneil, RN is Primary Nurse. ww 10:06 Giuseppe Akers MD is Attending Physician. [facility] 11:02 Jimmy Amaro MD is Referral Physician. [facility] 11:45 No provider procedures requiring assistance completed. Patient did not have IV access ww during this emergency room visit. Administered Medications: 11:03 Drug: Decadron (dexamethasone) 10 mg Route: IM; Site: left gluteus; ww 11:05 Drug: Ketorolac 30 mg Route: IM; Site: left gluteus; ww Outcome: 11:04 Discharge ordered by . [facility] 11:45 Discharged to home ww 11:45 Condition: stable 11:45 Discharge instructions given to patient, Instructed on discharge instructions, follow up and referral plans. medication usage, safety practices, Demonstrated understanding of instructions, follow-up care, medications, Prescriptions given X 4. 11:46 Patient left the ED. ww Signatures: Giuseppe Akers MD MD cha Calderon, Audri, RN RN aa Michelle Barr [facility] Debby Mcneil RN RN ww
[2022-01-02 11:51] VITALS: BP 109/72; TEMP 97.9; O2SAT 100
== END 2022-01-02 11:46 | disposition home or self-care (01) ==
LOC: ER 09:42
DX: M50.13 Cervical disc disorder with radiculopathy, cervicothoracic region (principal); M51.17 Intervertebral disc disorders with radiculopathy, lumbosacral region; Z88.6 Allergy status to analgesic agent; Z88.8 Allergy status to other drugs, medicaments and biological substances
CPT/HCPCS: 96372; 99283; J1100

== ENCOUNTER 2022-01-06 14:26 | Emergency (ER) | payer SELFPAY ==
--- OUTSIDE RECORDS SUMMARY | 2022-01-06 14:32 | XMS REPORT | Continuity of Care Document ---
:1975 Author Organization [facility] t Address [address] [place] [address] Care Team Providers Name Role Phone Asked, Pcp Primary Care Physician Unavailable Jose Attending Clinician Unavailable Ash PERES Attending Clinician Unavailable Anna PRITCHETT Attending Clinician Unavailable Anna Pritchett DO Attending Clinician DILLON ALARCON Attending Clinician Unavailable Marina PERALTA, RJonathon Attending Clinician Dillon Alarcon MD Attending Clinician [...] Date Expiration Date S ai [place] - [id number] 2020 00:00:00 OUT OF STATE BCBS 2 [id number] 2021 00:00:00 Problems Condition Condition Condition Status [...] f medial medial 00:00: g of this [place] meniscus meniscus 00 note Medica l of left of left might be Branch knee as knee as different current current from the injury, injury, original. 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/1976 Problem 02/28/2020 reports reaction from [facility] No known No known Disease Metho di active active st problems problems Hospit a l Osteochond Osteochond Problem Active U T ritis [...] Active U T pain pain Physici ans Asthma Problem Active 2021-04-29 Memor ia (disorder) 21:40:08 l Asthma [place] (disorder) Active Problem 04/29/2021 [facility] Gastritis Problem Active 2021-04-29 Me moria (disorder) 21:40:08 l [place] Gastritis (disorder) Active Problem 04/29/2021 [facility] Hypertensi Problem Active 2021-04-29 M emoria ve 21:40:08 l disorder, [place] systemic Hypertensi arterial ve (disorder) disorder, systemic arterial (disorder) [facility] Hypothyroi Problem Active 2021-04-29 M emoria dism 21:40:08 l (disorder) Burak n Hypothyroi dism (disorder) Active Problem 04/29/2021 [facility] Migraine Problem Active 2021-04-29 Mem oria (disorder) 21:40:08 l Migraine Burak n (disorder) Active Problem 04/29/2021 [facility] Morbid Problem Active 2021-04-29 Memor ia obesity 21:40:08 l (disorder) Morbid Herm mckenna obesity (disorder) Active Problem 04/29/2021 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 Hemangioma Problem Active 2021-04-29 M emoria of 21:40:08 l intracrani Burak n al Hemangioma structure of (disorder) intracrani al structure (disorder) Active Problem 04/29/2021 [facility] Ankle pain Problem Active 2021-04-29 M emoria (finding) 21:40:08 l Ankle [place] pain (finding) Active Problem 04/29/2021 [facility] Paresthesi Problem Active 2021-04-29 M emoria a 21:40:08 l (finding) [place] Paresthesi a (finding) Active Problem 04/29/2021 [facility] Lumbar Problem Active 2021-04-29 Memor ia radiculopa 21:40:08 l thy Lumbar [place] (disorder) radiculopa thy (disorder) Active Problem 04/29/2021 [facility] Peripheral Problem Active 2021-04-29 M emoria nerve 21:40:08 l disease [place] (disorder) Peripheral nerve disease (disorder) Active Problem 04/29/2021 [facility] Acid Problem Active 2020-02-28 Memor ia [...] Active 2020-02-28 M emoria (disorder) 04:01:02 l [place] Neuropathy (disorder) Active Problem 02/28/2020 [facility] Fibromyalg Fibromyalg Disease Active U nivers ia ia ity of [facility] Disc Disc Disease Active Univers disease, disease, [place]y of degener[place] degener[place] ve, lumbar ve, lumbar Me dical or or Branch lumbosacra lumbosacra l l Cervical Cervical Disease Active Unive rs herniated herniated ity of disc disc [facility] Lumbar Lumbar Disease Active Univers herniated herniated ity of disc disc [facility] History of Past Illness Condition Condition Condition Status Onset Resolution Last Treating Co mments Source Name Details Category Date Date Treatment Clinician Date Nondisplac Problem 2020-02-28 2020-02-28 Memoria ed dome 02-25 04:01:02 04:01:02 l fracture 17:00: [place] of left Nondisplac 00 [place], ed dome [...] 00:00: Aluminum reaction 00 [place]-Top s iramate Topirama Propensi Active Nausea and Other Ke lsey te ty to Vomiting 2- reaction( Seybo ld adverse 00:00: s): reaction 00 Unknown s Topirama Propensi Active Other (See Other Me thodi te ty to Comments) 2-22 reaction( st adverse 00:00: s): Hospita reaction 00 Unknown l s to drug Aspirin Propensi Active Other - See Yung Un george ty to comments 2- Syndrome ity of adverse 00:00: [place] reaction 00 Medical s Branch Codeine Propensi Active Nausea 2016-0 Univers ty to and/or 2-22 ity of adverse Vomiting 00:00: [place] reaction 00 Medical s Branch ASPIRIN DRUG Active Other-Cmnt Unive rs INGREDI 09-06 ity of 00:00: [place] 00 Medical Branch CODEINE DRUG Active N/V Univers INGREDI 09-06 ity of 00:00: [place] 00 Medical Branch TOPIRAMA DRUG Active N/V Univers TE INGREDI 09-06 ity of 00:00: [place] Medical Branch Tramadol Propensi Active Rosi ty to 02-05 [...] codeine codeine Active Memoria sulfate sulfate l [place] aspirin aspirin Active Memoria l [place] Topamax Topamax Active Memoria l [place] traMADol traMADol Active Memori a l [place] aspirin Allergy Active [facility] to drug Physici (finding ans ) codeine Allergy Active [facility] to drug Physici (finding ans ) Family History Family Member Diagnosis Comments Start Date Stop Date Source Natural father Diabetes [facility] Natural father Heart attack [facility] Maternal aunt Cancer [facility] [place] [facility] Maternal grandmother Diabetes [facility] Maternal grandmother Stroke [facility] Natural mother Heart attack [facility] Natural mother Heart disease [facility] Social History Social Habit Start Date Stop Date Quantity Comments Source Exposure to Not sure Rosi armendariz SARS-CoV-2 (event) Tobacco use and 2021-05-19 2021-05-19 Smokeless tobacco Me thodist exposure 00:00:00 00:00:00 non-user Hospital Alcohol intake 2021-05-19 2021-05-19 [facility] 00:00:00 00:00:00 non-drinker Hospital (finding) Sex Ass[birth year] At [birth year] [facility] 00:00:00 00:00:00 Hospital Smoking Status Start Date Stop Date Source Never smoker [facility] Branch Medications Ordered Filled Start Stop Current [...] flu vac qv 2020-07 Yes Flublok Meth jsaon 2018,18yr 07-[address] up,rc,PF, 10:53: Hos helga (Flublok 59 (PF) 180 l Quad mcg (45 [id number], mcg x PF,) 180 4)/0.5 mL mcg (45 mcg IM syringe x 4)/0.5 mL PHARMACIST syringe ADMINISTER ED IMMUNIZATI ON ADMINISTER ED AT TIME OF DISPENSING bromphenira 2020-07 Yes bromphenir Methodi mine-pseudo 07-19 amine-pseu st eph-DM 10:53: doephedrin Hospi ta 230-10 58 e-DM 2 l mg/5 mL mg-30 [...] 32 on daily Suspension Cyclobenzap 2020-07 Yes [id number] 10mg Take 1 Rosi rine HCl 10 [...] tab, PO, l Tablet 21:15: PRN, PRN [place] [Ubrelvy] 00 Other -See Comment, X 30 day, # 10 tab, 1 Refill(s), Pharmacy: [id number], For Migraine. May repeat dose after 2 hours. Max dose 200 mg/ 24 hours, 152.4, cm, 03/16/21 8:31:00 CDT, Height, 112.727, kg, 03/16/21 8... ubrogepant Yes 100 mg = 1 M ethodi (Ubrelvy) 9-10 tab, PO, st 100 mg 00:00: PRN, PRN Hospita tablet 00 Other -See l Comment, X 30 day, # 10 tab, 1 Refill(s), Pharmacy: [id number], For Migraine. May repeat dose after 2 hours. Max dose 200 mg/ 24 hours, 152.4, cm, 03/16/21 8:31:00 CDT, Height, 112.727, kg, 03/16/21 8... ubrogepant No 100 mg = 1 M emoria 100 MG Oral 9-03 tab, PO, l Tablet 16:30: PRN, PRN [place] [Ubrelvy] 00 Other -See Comment, X 30 day, # 10 tab, 1 Refill(s), Pharmacy: [facility], For Migraine. May repeat dose after 2 hours. Max dose 200 mg/ 24 hours, 152.4, cm, 03/16/21 8:31:00 CDT, Height, 112.727, kg, 03/16/21 8:... amitriptyli Yes = 1 tab, Me moria ne 75 mg - PO, l oral tablet 23:57: Bedtime, # [place] 00 30 ea, 5 Refill(s), Pharmacy: [facility], 152.4, cm, 03/16/21 [...] day, # 10 tab, 1 Refill(s), Pharmacy: [facility], For Migraine. May repeat dose after 2 hours. Max dose 200 mg/ 24 hours, 152.4, cm, 02/01/21 13:49:00 CDT, Height, 116.818, kg, 02/01/21 1... ibuprofen 2020-0 Yes Methodi (ADVIL) 600 8-04 st MG tablet 00:00: Hospita 00 l Ibuprofen 2020-0 Yes Rosi 600 MG oral 8-04 Seybold Tablet 00:00: 00 methylPREDN 2020-0 Yes [id number] 84mg Take 21 Univers ISolone 7-30 tablets by ity of (MEDROL, 00:00: mouth [place] GENARO,) 4 mg 00 SEE-INSTRU Med ical tablets CTIONS. Branch follow package directions methylPREDN 2020-0 Yes [id number] 84mg Take 21 Univers ISolone 7-30 tablets by ity of (MEDROL, 00:00: mouth [place] GENARO,) 4 mg 00 SEE-INSTRU Med ical tablets CTIONS. Branch follow package directions methylPREDN 2020-0 Yes [id number] 84mg Take 21 Univers ISolone 7-30 tablets by ity of (MEDROL, 00:00: mouth [place] GENARO,) 4 mg 00 SEE-INSTRU Med ical tablets CTIONS. Branch follow package directions medroxyPROG 2020-0 Yes [id number] 20mg Take 2 Univers ESTERone 5-13 tablets by ity o f (PROVERA) 00:00: mouth [place] 10 mg 00 daily. Medical tablet Branch medroxyPROG 2021-0 Yes [id number] 20mg Take 2 Univers ESTERone 5-13 tablets by ity o f (PROVERA) 00:00: mouth [place] 10 mg 00 daily. Medical tablet Branch medroxyPROG 202-0 Yes [id number] 20mg Take 2 Univers ESTERone 5-13 tablets by ity o f (PROVERA) 00:00: mouth [place] 10 mg 00 daily. Medical tablet Branch medroxyPROG 2020-0 Yes every 24 Ke lsey ESTERone 5-13 hours Seybold Acetate 10 00:00: MG oral 00 Tablet rizatriptan 2020-0 Yes 5 mg = 1 Me moria 5 MG Oral 3-12 tab, PO, l Tablet 20:23: ONCE, PRN Burak n [Maxalt] 00 for migraine headache, # 9 tab, 1 Refill(s), Pharmacy: [facility], 160.02, cm, 09/24/20 13:34:00 GENERAL AGENT, Height, 113.636, kg, 09/24/20 13:34:00 GENERAL AGENT, Weight Rizatriptan 2020-0 Yes rizatripta Rosi Benzoate 5 3-12 n 5 mg Seybold MG oral 00:00: tablet Tablet 00 TAKE 1 TABLET BY MOUTH ONCE DAILY NEEDED FOR HEADACHE MIGRAINE rizatriptan 2019-0 Yes 5 mg = 1 Me moria 5 MG Oral 9-15 tab, PO, l Tablet 22:44: ONCE, PRN Burak n [Maxalt] 00 for migraine headache, # 9 tab, 1 Refill(s), Pharmacy: [facility], 152.4, cm, 01/15/20 15:04:00 CDT, Height, 115.455, kg, 01/15/20 15:04:00 CDT, Weight Misc 2020-0 No 900 mL, Memoria Medication 02-25 Soln-IV, l 15:27: IV, Once, first dose 02/26/20 10:27:00 CDT, stop date 02/26/20 10:27:00 CDT LR 1,000 mL 2019-0 No 1,000 mL, M emoria 02-25 IV, 75 l 15:20: mL/hr, start date 02/26/20 10:20:00 CDT, 2.14, m2 Saline Lock 2019-0 No 10 mL, Lev trupti Flush 02-25 Soln, IV l 15:20: Push, As Indicated PRN for flush, first dose 02/26/20 10:20:00 CDT Dilaudid 2019-0 No 0.5 mg = Memor ia 02-25 0.5 mL, l 15:20: Injection, [place] 00 IV Push, q10min PRN for pain [...] Me moria 8-13 mL, l 15:20: Injection, [place] 00 IV Push, q15min PRN for nausea, order duration: 2 doses, first dose 02/26/20 10:20:00 CDT, stop date Limited # of times Promethazin 2020-0 No 12.5 mg = Raeann emoria e 8-13 0.5 mL, l 15:20: Injection, [place] 00 IM, Once PRN for vomiting, first dose 02/26/20 10:20:00 CDT fentaNYL 2020-0 No 25 mcg = Memor ia 8-13 0.5 mL, l 14:50: Injection, IV, Once, first dose 02/26/20 9:50:00 CDT, stop date 02/26/20 9:50:00 CDT fentaNYL 2020-0 No 25 mcg = Memor ia 8-13 0.5 mL, l 14:16: Injection, [place] 00 IV, Once, first dose 02/26/20 9:16:00 CDT, stop date 02/26/20 9:16:00 CDT Misc 2020-0 No 1,000 mL, Memoria Medication 8-13 Soln-IV, l 13:23: IV, Once, first dose 02/26/20 8:23:00 CDT, stop date 02/26/20 8:23:00 CDT ceFAZolin 2020-0 No 2 gm, Memoria 8-13 Soln-IV, l 12:53: IV [place] 00 Piggyback, Once, first dose 02/26/20 7:53:00 CDT, stop date 02/26/20 7:53:00 CDT ondansetron 2020-0 No 4 mg = 2 Me moria 8-13 mL, l 12:53: Injection, [place] 00 IV, Once, first dose 02/26/20 7:53:00 CDT, stop date 02/26/20 7:53:00 CDT dexamethaso 2020-0 No 8 mg = 2 Me moria ne 8-13 mL, l 12:53: Injection, [place] 00 IV, Once, first dose 02/26/20 7:53:00 [...] Lev trupti 8-13 mL, l 12:34: Injection, [place] 00 IV, Once, first dose 02/26/20 7:34:00 [...] mL 02-25 Injection, l IV Start 11:28: [facility] 00 , Once PRN for other (see comment), first dose 02/26/20 6:28:00 CDT Allergy 2020-0 Yes mg, Oral, Memor ia Relief 805 Daily, 0 l 17:06: Refill(s) Tylenol PM 2020-0 Yes Oral, qHS, M emoria 8-05 0 l 17:05: Refill(s), [place] 00 sleep /pain amitriptyli 2020-0 Yes 75 mg = 1 M emoria ne 75 mg 8-05 tabs, l oral tablet 17:04: Oral, qHS, [place] 00 0 Refill(s), sleep levothyroxi 2020-0 Yes [...] mg 8-05 tabs, l oral 17:04: Oral, [place] delayed 00 Daily, 0 release Refill(s), tablet GERD meloxicam 2019-0 Yes 7.5 mg = 1 Me moria 7.5 MG Oral 8-05 tabs, l Tablet 17:04: Oral, [place] 00 Daily, 0 Refill(s), joint pain pantoprazol 2019-0 Yes pantoprazo Methodi e 8-[address] (PROTONIX) 00:00: tablet,del H ospita 40 MG EC 00 ayed l tablet release TAKE 1 TABLET BY MOUTH ONCE DAILY amitriptyli 2019-0 Yes = 1 tab, Me moria ne 75 mg 7-02 PO, l oral tablet 20:24: Bedtime, # [place] 00 30 ea, 5 Refill(s), Pharmacy: [facility], 152.4, cm, 01/15/20 15:04:00 CDT, Height, 115.455, kg, 01/15/20 15:04:00 CDT, Weight rizatriptan 2019-0 Yes 5 mg = 1 Me moria 5 MG Oral 7-02 tab, PO, l Tablet 20:24: ONCE, PRN Burak n [Maxalt] 00 for migraine headache, # 9 tab, 1 Refill(s), Pharmacy: [facility], 152.4, cm, 01/15/20 15:04:00 CDT, Height, 115.455, kg, 01/15/20 15:04:00 CDT, Weight rizatriptan 2020-0 Yes 5 mg = 1 Me moria 5 MG Oral 5-19 tab, PO, l Tablet 21:06: ONCE, PRN Burak n [Maxalt] 00 for migraine headache, # 9 tab, 1 Refill(s), Pharmacy: [facility] amitriptyli 2019-0 Yes = 1 tab, Me moria ne 75 mg 5-19 PO, l oral tablet 21:06: Bedtime, # [place] 00 30 ea, 1 Refill(s), Pharmacy: [facility] loratadine Yes loratadine M ethodi (CLARITIN) 9-[address] 10 mg 00:00: tablet Hospita tablet 00 TAKE 1 l TABLET BY MOUTH ONCE DAILY sod Yes [id number] 1{bottl Use 1 Unive rs chlor-bicar 9-08 e} Bottle in ity of b-squeez 00:00: each [place] bottle 00 nostril 2 Medical (NEILMED (two) Branch SINUS RINSE times COMPLETE) daily. Use pkdv in hot shower 1 hour before bedtime loratadine Yes [id number] 10mg Take 1 U nivers 10 mg 9-08 tablet by ity of tablet 00:00: mouth [place] 00 daily. Medical Branch sod Yes [id number] 1{bottl Use 1 Unive rs chlor-bicar 9-08 e} Bottle in ity of b-squeez 00:00: each [place] bottle 00 nostril 2 Medical (NEILMED (two) Branch SINUS RINSE times COMPLETE) daily. Use pkdv in hot shower 1 hour before bedtime loratadine Yes [id number] 10mg Take 1 U nivers 10 mg 9-08 tablet by ity of tablet 00:00: mouth [place] 00 daily. Medical Branch sod Yes [id number] 1{bottl Use 1 Unive rs chlor-bicar 9-08 e} Bottle in ity of b-squeez 00:00: each [place] bottle 00 nostril 2 Medical (NEILMED (two) Branch SINUS RINSE times COMPLETE) daily. Use pkdv in hot shower 1 hour before bedtime loratadine Yes [id number] 10mg Take 1 U nivers 10 mg 9-08 tablet by ity of tablet 00:00: mouth [place] 00 daily. Medical Branch amitriptyli Yes 75 mg = 1 M emoria ne 75 mg 8-22 tab, PO, l oral tablet 18:27: Bedtime, # [place] 00 30 tab, 1 Refill(s), Pharmacy: [facility] rizatriptan Yes 5 mg = 1 Me moria 5 MG Oral 8-02 tab, PO, l Tablet 20:24: ONCE, PRN Burak lozano [Maxalt] 09 for migraine headache, # 9 tab, 1 Refill(s), Pharmacy: [facility] thiamine Yes 100 mg = 1 Mem oria 100 mg oral 8-02 tab, PO, l tablet 20:23: Daily, X [place] 17 30 day, # 30 tab, 3 Refill(s), Pharmacy: [facility] cyanocobala Yes 1,000 Memor ia min 1000 8-02 microgram l mcg 20:23: = 1 tab, [place]a sublingual 13 SL, Daily, tablet # 30 tab, 2 Refill(s), Pharmacy: [facility] amitriptyli Yes 50 mg = 1 M emoria ne 50 mg 8-02 tab, PO, l oral tablet 20:23: Bedtime, # [place] 09 30 tab, 1 Refill(s), Pharmacy: [facility] rizatriptan Yes rizatripta Methodi (MAXALT) 5 8-02 [...] day, # 6 tab, 1 Refill(s), Pharmacy: [facility] amitriptyli No 50 mg = 1 M emoria ne 50 mg 7-13 tab, PO, l oral tablet 01:53: Bedtime, # [place] 00 30 tab, 1 Refill(s), Pharmacy: [facility] frovatripta No 2.5 mg = 1 Memoria n 2.5 mg 6-27 tab, PO, l oral tablet 15:37: Daily, PRN [place] 00 for migraine headache, May repeat another dose at least 2 hours after the first dose, X 3 day, # 9 tab, 2 Refill(s), Pharmacy: [facility] eletriptan No See Memoria 40 MG Oral 6-25 Instructio l Tablet 23:35: ns, PO, [place] [Relpax] 00 Take 1-2 tabs orally at onset of migraine, may repeat dose once in 2 hours, X 3 day, # 6 tab, 1 Refill(s), Pharmacy: [facility] amitriptyli Yes 25 mg = 1 M emoria ne 25 mg 6-11 tab, PO, l oral tablet 21:16: Bedtime, # [place] 00 30 tab, 3 Refill(s), Pharmacy: [facility] cyanocobala Yes 1,000 Memor ia min 1000 6-07 microgram l mcg 19:39: = 1 tab, [place] sublingual 00 SL, Daily, tablet # 30 tab, 2 Refill(s), Pharmacy: [facility] thiamine Yes 100 mg = 1 Mem oria 100 mg oral 5-17 tab, PO, l tablet 18:13: Daily, X [place] 00 30 day, # 30 tab, 3 Refill(s), Pharmacy: [facility] amitriptyli Yes 10 mg = 1 M emoria ne 10 mg 5-10 tab, PO, l oral tablet 20:44: Bedtime, # [place] 00 30 tab, 3 Refill(s), Pharmacy: [facility] gabapentin Yes 300 [...] day Ho spita 00 l bisoprolol Yes [id number] 10mg Take 1 U nivers 10 mg 1-11 tablet by ity of tablet 00:00: mouth [place] 00 daily. Medical Branch cyclobenzap Yes [id number] 10mg Take 1 Univers rine 10 mg 1-11 tablet by ity of tablet 00:00: mouth at [place] 00 bedtime. Medical Branch bisoprolol Yes [id number] 10mg Take 1 U nivers 10 mg 1-11 tablet by ity of tablet 00:00: mouth [place] 00 daily. Medical Branch cyclobenzap Yes [id number] 10mg Take 1 Univers rine 10 mg 1-11 tablet by ity of tablet 00:00: mouth at [place] 00 bedtime. Medical Branch bisoprolol Yes [id number] 10mg Take 1 U nivers 10 mg 1-11 tablet by ity of tablet 00:00: mouth [place] 00 daily. Medical Branch cyclobenzap Yes [id number] 10mg Take 1 Univers rine 10 mg [...] spray,susp ension fluticasone Yes Univer s 50 03-17 ity of mcg/actuati 00:00: [place] on nasal 00 Medical spray Branch fluticasone Yes Univer s 50 9-02 ity of mcg/actuati 00:00: [place] on nasal 00 Medical spray Branch [facility] 2016-0 [facility] of mcg/actuati 00:00: [place] on nasal 00 Medical spray Branch Levothyroxi Levothyroxi Yes M.D. U T ne Sodium ne Sodium Physi ci TABS TABS ans Meloxicam Meloxicam Yes M.D. [place] TABS TABS Physici ans Amitriptyli Amitriptyli Yes M.D. U T ne HCl TABS ne HCl TABS P hysici ans Immunizations Ordered Filled Immunization Date Status Comments Sour e Immunization Name Name Covid-19 Vaccine 2021-03-31 Completed Rosi esposito (Moderna), 00:00:00 Mrna-lnp, Shade Protein, Pf, 100 Mcg/0.5ml,IM Covid-19 Vaccine 2021-03-02 Completed Rosi esposito (Moderna), 00:00:00 Mrna-lnp, [place] Protein, Pf, 100 Mcg/0.5ml,IM Influenza Virus 2016-07-24 Completed Rosi solano Vaccine, No 00:00:00 Preserv, age 6 months and up Tdap- (Boostrix, 2016-07-24 Completed Rosi esposito Adacel) 00:00:00 TDAP 2016-07-24 Completed [facility] 00:00:00 [facility] Influenza Virus 2016-07-24 Completed Universit y of Vaccine Quad IM 3+ 00:00:00 [facility] TDAP 2016-07-24 Completed [facility] 00:00:00 [facility] Influenza Virus 2016-07-24 Completed Universit y of Vaccine Quad IM 3+ 00:00:00 [facility] TDAP 2016-07-24 Completed University 00:00:00 [facility] Influenza Virus 2016-07-24 Completed Universit y of Vaccine Quad IM 3+ 00:00:00 [facility] Tdap- (Boostrix, 2010-01-18 Completed Rosi esposito Adacel) 00:00:00 Vital Signs Vital Name Observation Time Observation Value Comments Source Systolic blood 2021-10-10 20:19:00 141 mm[Hg] Univer sity of pressure [facility] Diastolic blood 2021-10-10 20:19:00 98 mm[Hg] Unive rsity of pressure [facility] Heart rate 2021-10-10 20:19:00 109 /min Universi ty of [facility] Body temperature 2021-10-10 20:19:00 36.94 Sole Univ ersity of [facility] Branch Respiratory rate 2021-10-10 20:19:00 18 /min Univ ersity of [facility] Body height 2021-10-10 20:19:00 160 cm Universi ty of [facility] Body weight 2021-10-10 20:19:00 115.667 kg Universi ty of [facility] BMI 2021-10-10 20:19:00 45.17 kg/m2 Universi ty of [facility] Oxygen saturation in 2021-10-10 20:19:00 97 /min [facility] Arterial blood by [facility] Pulse oximetry Branch Body height 2021-04-28 14:43:00 157.5 cm Rosi ballardboshabnam Body weight 2021-04-28 14:43:00 113.853 kg Rosi ballardbold BMI 2021-04-28 14:43:00 45.91 kg/m2 Rosi S nelliebold Systolic blood 2021-04-28 14:43:00 100 mm[Hg] Rosi ybold pressure Diastolic blood 2021-04-28 14:43:00 60 mm[Hg] Kelse y Seybold pressure Heart rate 2021-04-28 14:43:00 112 /min Rosi ballardboshabnam Body temperature 2021-04-28 14:43:00 37 Sole Agueda ey Seybold Respiratory rate 2021-04-28 14:43:00 16 /min Agueda ey Seybold Systolic blood 2021-02-11 13:34:00 127 mm[Hg] Univer sity of pressure [facility] Diastolic blood 2021-02-11 13:34:00 87 mm[Hg] Unive rsity of pressure [facility] Heart rate 2021-02-11 13:34:00 100 /min Universi ty of [facility] Body height 2021-02-11 13:34:00 160 cm Universi ty of [facility] Body weight 2021-02-11 13:34:00 115.667 kg Universi ty of [facility] BMI 2021-02-11 13:34:00 45.17 kg/m2 [facility] Systolic (mm Hg) 2021-03-16 13:19:00 Lev rial Luca Diastolic (mm Hg) 2021-03-16 13:19:00 Mem orial [place] Heart Rate 2021-03-16 13:19:00 [facility] [place] Respitory Rate 2021-03-16 13:19:00 Memori al [place] Height 2021-03-16 13:19:00 152.4 cm [facility] [place] Weight 2021-03-16 13:19:00 [facility] [place] BMI Calculated 2021-03-16 13:19:00 Memori al [place] Systolic (mm Hg) 2021-02-01 18:35:00 Lev rial Luca Diastolic (mm Hg) 2021-02-01 18:35:00 Mem orial [place]a Heart Rate 2021-02-01 18:35:00 [facility] [place] Respitory Rate 2021-02-01 18:35:00 Memori al [place] Height 2021-02-01 18:35:00 152.4 cm Memorial [place] Weight 2021-02-01 18:35:00 [facility] [place] BMI Calculated 2021-02-01 18:35:00 Memori al [place] Systolic (mm Hg) 2020-09-24 19:34:00 Lev rial [place] Diastolic (mm Hg) 2020-09-24 19:34:00 Mem orial Luca Heart Rate 2020-09-24 19:34:00 Memorial [place] Respitory Rate 2020-09-24 19:34:00 Memori al [place] Height 2020-09-24 19:34:00 160.02 cm Memorial [place] Weight 2020-09-24 19:34:00 [facility] [place] BMI Calculated 2020-09-24 19:34:00 Memori al [place] Respitory Rate 2020-02-26 16:32:00 Memori al [place] Systolic (mm Hg) 2020-02-26 16:32:00 Lev rial Luca Diastolic (mm Hg) 2020-02-26 16:32:00 [facility] [place] Heart Rate 2020-02-26 16:00:00 [facility] [place] Respitory Rate 2020-02-26 16:00:00 [facility] [place] Systolic (mm Hg) 2020-02-26 16:00:00 [facility] [place] Diastolic (mm Hg) 2020-02-26 16:00:00 [facility] [place] Heart Rate 2020-02-26 15:50:00 [facility] [place] Respitory Rate 2020-02-26 15:50:00 [facility] [place] Systolic (mm Hg) 2020-02-26 15:50:00 [facility] [place] Diastolic (mm Hg) 2020-02-26 15:50:00 [facility] [place] Heart Rate 2020-02-26 15:40:00 [facility] [place] Temperature Oral (F) 2020-02-26 15:20:00 37.0 Sole [facility] [place] Temperature Oral (F) 2020-02-26 11:25:00 37.2 Sole [facility] [place] Height 2020-02-26 11:25:00 158 cm [facility] [place] Height 2020-02-18 16:59:00 158 cm [facility] [place] Systolic blood 2020-02-02 14:39:00 134 mm[Hg] UT [...] Systolic (mm Hg) 2020-01-15 20:04:00 [facility] [place] Diastolic (mm Hg) 2020-01-15 20:04:00 [facility] [place] Heart Rate 2020-01-15 20:04:00 [facility] [place] Respitory Rate 2020-01-15 20:04:00 [facility] [place] Height 2020-01-15 20:04:00 152.4 cm [facility] [place] Weight 2020-01-15 20:04:00 [facility] [place] BMI Calculated 2020-01-15 20:04:00 [facility] [place] Systolic (mm Hg) 2019-12-02 20:40:00 [facility] [place] Diastolic (mm Hg) 2019-12-02 20:40:00 [facility] [place] Heart Rate 2019-12-02 20:40:00 [facility] [place] Respitory Rate 2019-12-02 20:40:00 [facility] [place] Height 2019-12-02 20:40:00 152.4 cm [facility] [place] Weight 2019-12-02 20:40:00 [facility] [place] BMI Calculated 2019-12-02 20:40:00 [facility] [place] Weight 2019-02-14 19:40:00 [facility] [place] BMI Calculated 2019-02-14 19:40:00 [facility] [place] Height 2019-02-14 19:40:00 160.02 cm [facility] [place] Respitory Rate 2019-02-14 19:40:00 [facility] [place] Heart Rate 2019-02-14 19:40:00 [facility] [place] Systolic (mm Hg) 2019-02-14 19:40:00 [facility] [place] Diastolic (mm Hg) 2019-02-14 19:40:00 [facility] [place] BMI Calculated 2018-12-24 20:38:00 [facility] [place] Weight 2018-12-24 20:38:00 [facility] [place] Height 2018-12-24 20:38:00 157.48 cm [facility] [place] Systolic (mm Hg) 2018-12-24 20:38:00 [facility] [place] Diastolic (mm Hg) 2018-12-24 20:38:00 [facility] [place] Respitory Rate 2018-12-24 20:38:00 [facility] [place] Heart Rate 2018-12-24 20:38:00 [facility] [place] Height 2018-12-20 19:20:00 152.4 cm [facility] [place] BMI Calculated 2018-12-20 19:20:00 [facility] [place] Weight 2018-12-20 19:20:00 [facility] [place] Systolic (mm Hg) 2018-12-20 19:20:00 [facility] [place] Diastolic (mm Hg) 2018-12-20 19:20:00 [facility] [place] Heart Rate 2018-12-20 19:20:00 [facility] [place] Respitory Rate 2018-12-20 19:20:00 [facility] [place] Systolic (mm Hg) 2018-11-22 19:23:00 [facility] [place] Diastolic (mm Hg) 2018-11-22 19:23:00 [facility] [place] Respitory Rate 2018-11-22 19:23:00 Carissa Redman Height 2018-11-22 19:23:00 157.48 cm Naresh Segovia Weight 2018-11-22 19:23:00 [facility] [place] BMI Calculated 2018-11-22 19:23:00 Carissa Redman Heart Rate 2018-11-22 19:23:00 [facility] [place] Procedures Procedure Date / Time Performing Clinician Source Performed CONSENT/REFUSAL FOR 2021-10-10 20:09:22 Doctor Unassigned, [facility] DIAGNOSIS AND TREATMENT [facility] MRI SPINE EXTERNAL STUDY 2021-04-29 16:16:04 [facility] 22724 2020-07-02 00:00:00 [facility] [[facility]MD] US Lower Extremity 2020-05-31 00:00:00 [facility] Venous Doppler Bilateral Post Op Promis 29 Survey 2020-03-12 00:00:00 [facility] APPLICATION SHORT LEG 2020-02-26 13:13:00 [facility] SPLINT-CALF TO FOOT 36467 (Left)<sup>1</sup> ARTHROSCOPY ANKLE 2020-02-26 13:13:00 [facility] ermann 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 nn bilateral Bunionectomy [facility] Carpal tunnel syndrome of Carissa Monteiroann right wrist Plantar fasciitis of left Carissa Redman foot Plan of Care Planned Activity Planned Date Details Comments Source Future Scheduled 2021-08-16 Hepatitis C [facility] ospital Test 19:56:30 screening (procedure) [code = 550864313] Future Scheduled 2021-08-16 Screening for [facility] Test 19:56:30 malignant neoplasm of cervix (procedure) [code = 557314553] Future Scheduled 2021-08-16 INFLUENZA VACCINE Method ist [...] Clinicians Facility Department ID 2021-08-10 [facility] [id number] Common 13:49:13 Avnee 33979 [facility] 2021-08-10 Outpatient Garcia, [facility] [id number] Common 13:47:59 Avnee 18750 [facility] 2021-08-10 [facility] [id number] Common 13:43:00 Avnee 48732 [facility] 2021-08-10 [facility] [id number] Common 13:37:06 Avnee 64321 [facility] 2021-08-10 Outpatient Garcia, [facility] [id number] Common 13:23:50 Avnee 06656 [facility] 2021-08-10 Outpatient Garcia, [facility] [id number] Common 13:22:32 Avnee 91216 [facility] 2021-08-10 Outpatient Garcia, [facility] [id number] Common 13:09:55 Avnee 69722 [facility] 2021-05-15 Outpatient Scott PERES [facility] JOSE [id number] Univers 06:58:12 ESTER rm [facility] 2021-10-10 2021-10-10 Emergency X YARELY [facility] ERT [id number] Univers 15:21:00 15:42:00 CAT mayescrow [facility] 2021-10-10 2021-10-10 Emergency [facility] [id number] Univers 15:21:00 15:42:00 Cat DUMONT 350.1.13.10 [facility] 4.2.7.2.686 [facility] [id number] [address] 2021-10-10 2021-10-10 Outpatient ROSI ALARCON [id number] Rosi 00:00:00 00:00:00 ALFONZO Seybol marcello 2021-09-09 2021-09-09 Outpatient ROSI ALARCON [id number] Rosi 00:00:00 00:00:00 ALFONZO Seybol marcello 2021-08-26 2021-08-26 Outpatient ROSI ALARCON [id number] Rosi 00:00:00 00:00:00 ALFONZOVERO Stevensol marcello 2021-07-05 2021-07-05 Outpatient ROSI ALARCON [id number] Rosi 00:00:00 00:00:00 ALFONZO Seybol marcello 2021-07-05 2021-07-05 Outpatient ROSI ALARCON [id number] Rosi 00:00:00 00:00:00 ALFONZO Seybol marcello 2021-06-02 2021-06-02 Outpatient ROSI ALARCON [id number] Rosi 00:00:00 00:00:00 ALFONZO Stevensol marcello 2021-05-23 2021-05-23 Documentat Marina, 1.2.840.1 [id number] Methodi 00:00:00 00:00:00 ion Tony Hdz 18056.1.[address] 3.430.2.7 Hospit a .3.582374 l .8 2021-05-18 2021-05-18 [facility] 1.2.840.1 [id number] Methodi 12:57:38 23:59:[address] 3.430.2.7 Hospit a .3.524108 l .8 2021-05-18 2021-05-18 Office Marina, 1.2.840.1 [id number] Methodi 12:19:03 15:18:57 Visit Tony Menendez50.1.[address] 3.430.2.7 Hospit a .3.572830 l .8 2021-05-18 2021-05-18 Outpatient [facility] [id number] [place] 00:00:00 00:00:[address] 2021-05-18 2021-05-18 Orders Marina, 1.2.840.1 [id number] Methodi 00:00:00 00:00:00 Only Tony Hdz 69932.1.[address] 3.430.2.7 Hospit a .3.952707 l .8 2021-05-16 2021-05-16 Outpatient ROSI ALARCON [id number] Rosi 00:00:00 00:00:00 ALFONZO armendariz 2021-05-11 2021-05-11 Outpatient ROSI ALARCON [id number] Rosi 00:00:00 00:00:00 ALFONZO armendariz 2021-05-11 2021-05-11 Outpatient ROSI ALARCON [id number] Rosi 00:00:00 00:00:00 ALFONZO armendariz 2021-04-28 2021-04-28 Office Jered Alarcon 1.2.840.114 [id number] Rosi 09:39:43 10:09:43 Visit Alfonzo Montenegro 350.1.13.13 Se russ Orantes 1.2.7.2.686 [id number] 2021-04-27 2021-04-27 Ambulatory nullFlavo MNA [id number] Memoria 15:15:00 15:15:00 Pre-Reg r Neurology 13 l Nik Segovia 2021-04-21 2021-04-21 ambulatory STLMLC STLMLC [id number] Common 00:00:00 00:00:00 [facility] 2021-04-12 2021-04-12 Outpatient STLMLC STLMLC [id number] Common 00:00:00 00:00:00 [facility] 2021-04-06 2021-04-06 ambulatory STLMLC STLMLC [id number] Common 00:00:00 00:00:00 [facility] 2021-03-31 2021-03-31 Outpatient STLMLC STLMLC [id number] Common 00:00:00 00:00:00 [facility] 2021-03-30 2021-03-30 Outpatient STLMLC STLMLC [id number] Common 00:00:00 00:00:00 [facility] 2021-03-30 2021-03-30 Outpatient STLMLC STLMLC [id number] Common 00:00:00 00:00:00 [facility] 2021-03-28 2021-03-28 Outpatient ROYCE DELEON [facility] [id number] Univers 10:30:00 10:30:00 [id number] [facility] 2021-03-28 2021-03-28 Outpatient Scott PRUETT [facility] [id number] Univers 10:30:00 10:30:00 [facility] 2021-03-16 2021-03-17 Outpatient nullFlavo MNA [id number] Memoria 13:15:00 04:59:59 r Neurology [place] 2021-03-17 2021-03-17 Outpatient STLMLC STLMLC [id number] Common 00:00:00 00:00:00 [facility] 2021-02-23 2021-02-23 Outpatient STLMLC STLMLC [id number] Common 00:00:00 00:00:00 [facility] 2021-02-21 2021-02-21 Outpatient STLMLC STLMLC [id number] Common 00:00:00 00:00:00 [facility] 2021-02-16 2021-02-16 Outpatient STLMLC STLMLC [id number] Common 00:00:00 00:00:00 [facility] 2021-02-15 2021-02-15 Outpatient STLMLC STLMLC [id number] Common 00:00:00 00:00:00 [facility] 2021-02-11 2021-02-11 [facility] [id number] Univers 08:15:00 08:56:02 ESTER [facility] 2021-02-11 2021-02-11 [facility] [id number] Univers 08:13:08 08:56:02 Visit Ester [facility] 350.1.13.10 it of SURGICAL 4.2.7.2.686 [place] as SPECIALTI [id number] Tx dical ES [address] [place] 2021-02-11 2021-02-11 [facility] [id number] Univers 08:15:00 08:15:00 ESTER [id number] [facility] 2021-02-10 2021-02-10 Outpatient Scott WOOD [facility] [id number] Univers 13:00:00 13:00:00 MG [id number] [facility] 2021-02-10 2021-02-10 [facility] [id number] Univers 13:00:00 13:00:00 MG [facility] 2021-02-03 2021-02-03 [facility] [id number] Univers 10:30:00 10:30:00 MG [id number] [facility] 2021-02-03 2021-02-03 [facility] [id number] Univers 10:30:00 10:30:00 MG [facility] 2021-02-01 2021-02-02 Outpatient nullFlavo MNA [id number] Memoria 18:30:00 04:59:59 r Neurology [place] 2021-01-20 2021-01-20 Outpatient STLMLC STLMLC [id number] Common 00:00:00 00:00:00 [facility] 2021-01-14 2021-01-14 Outpatient STLMLC STLMLC [id number] Common 00:00:00 00:00:00 [facility] 2020-12-232020-12-23 Outpatient R SLYHARRIS [facility] [id number] Univers 10:00:00 10:00:00 DEMETRIA [facility] 2020-12-23 2020-12-23 Outpatient Scott OLSON [facility] [id number] Univers 09:00:00 09:00:00 WONDIFUL [id number] ity o f [facility] 2020-12-23 2020-12-23 Outpatient Scott OLSON [facility] [id number] Univers 09:00:00 09:00:00 WONDIFUL ity o f [facility] 2020-12-16 2020-12-16 Outpatient Scott NINA [facility] [id number] Univers 10:30:00 10:30:00 MG [id number] [facility] 2020-12-16 2020-12-16 Outpatient Scott WOOD [facility] [id number] Univers 10:30:00 10:30:00 MG [facility] 2020-12-15 2020-12-15 Outpatient STLMLC STLMLC [id number] Common 00:00:00 00:00:00 [facility] 2020-12-15 2020-12-15 Outpatient STLMLC STLMLC [id number] Common 00:00:00 00:00:00 [facility] 2020-12-06 2020-12-06 Outpatient Scott WOOD [facility] [id number] Univers 15:30:00 15:30:00 MG [id number] [facility] 2020-12-06 2020-12-06 Outpatient Scott WOOD [facility] [id number] Univers 15:30:00 15:30:00 MG [facility] 2020-11-25 2020-11-25 Outpatient ROYCE PRUETT [facility] [id number] Univers 09:00:00 09:00:00 [id number] [facility] 2020-11-25 2020-11-25 Outpatient ROYCE DELEON [facility] [id number] Univers 09:00:00 09:00:00 [facility] 2020-11-112020-11-11 Outpatient ROYCE DELEON [facility] [id number] Univers 15:30:00 15:30:00 [id number] [facility] 2020-11-11 2020-11-11 Outpatient ROYCE DELEON [facility] [id number] Univers 15:30[facility]00 [facility] 2020-11-04 Outpatient Scott PHILLIPS [facility] [id number] Univers 10:00:00 10:00:00 EMELYN [id number] [facility] 2020-11-04 2020-11-04 Outpatient Scott PHILLIPS [facility] [id number] Univers 10:00:00 10:00:00 EMELYN [facility] 2020-10-28 2020-10-28 Outpatient Scott WOOD [facility] [id number] Univers 10:45:00 10:45:00 MG [id number] [facility] 2020-10-28 2020-10-28 Outpatient Scott WOOD [facility] [id number] Univers 10:45:00 10:45:00 MG [facility] 2020-10-25 2020-10-25 Outpatient Scott WOOD [facility] [id number] Univers 14:45:00 14:45:00 MG [id number] [facility] 2020-10-25 2020-10-25 Outpatient Scott WOOD [facility] [id number] Univers 14:45:00 14:45:00 MG [facility] 2020-10-15 2020-10-15 Outpatient Scott WOOD [facility] [id number] Univers 10:00:00 10:00:00 MG [id number] [facility] 2020-10-15 2020-10-15 Outpatient Scott WOOD [facility] [id number] Univers 10:00:00 10:00:00 MG [facility] 2020-10-08 2020-10-08 Outpatient R [facility] [id number] Univers 09:30:00 09:30:00 [id number] [facility] 2020-10-08 2020-10-08 Outpatient R JA [facility] [id number] Univers 09:30:00 09:30:00 [facility] 2020-10-08 2020-10-08 Outpatient R BRITTNEY [facility] [id number] Univers 09:15:00 09:15:00 OSCAR [facility] 2020-09-24 2020-09-25 Outpatient nullFlavo MNA [id number] Memoria 19:00:00 05:59:59 r Neurology 10 l Nik Segovia 2020-09-24 2020-09-24 Outpatient R NINA [facility] [id number] Univers 09:45:00 09:45:00 MG [id number] [facility] 2020-09-24 2020-09-24 [facility] [id number] Univers 09:45:00 [facility]:45:[facility] 2020-09-21 2020-09-21 Outpatient R JA [facility] [id number] Univers 14:00:00 14:00:00 ESTER [id number] [facility] 2020-09-21 2020-09-21 Outpatient R JA [facility] [id number] Univers 00:00:00 00:00:00 [facility] 2020-09-09 2020-09-09 Outpatient JA [facility] [id number] Univers 09:15:00 09:15:00 ESTER [id number] [facility] 2020-09-09 2020-09-09 [facility] [id number] Univers 09:15:00 09:15:00 [facility] 2020-09-06 2020-09-06 Ambulatory nullFlavo MNA [id number] Memoria 16:30:00 16:30:00 Pre-Reg r Neurology 09 l Nik Segovia 2020-07-14 2020-07-14 Outpatient R [facility] [id number] Univers 19:00:00 19:00:[address] [place] [address] 2020-07-14 2020-07-14 Outpatient R CHRISTIANNE, [facility] [id number] Univers 19:00:00 19:00:00 BROOKE serrano [facility] 2020-07-02 2020-07-02 Steven JEAN [facility]opedics [id number] [place] 14:30:00 14:30:00 t; RAJI JEAN BAPTISTE, - Sugar Phys ici RAJI, DPM [place] 2 ans DPM 2020-06-01 2020-06-01 Ambulatory nullFlavo [employer] [id number] Memoria 20:00:00 20:00:00 Pre-Reg r Neurology 08 [place] 2020-05-31 2020-05-31 Steven JEAN [facility] Orthopedics [id number] [place] 10:00:00 10:00:00 t; RAJI JEAN BAPTISTE, - [place] Phys ici RAJI, DPM [place] 2 ans DPM 2020-05-10 2020-05-10 Steven JEAN [facility] Orthopedics [id number] [place] 09:00:00 09:00:00 t; RAJI JEAN BAPTISTE, - [place] Phys ici RAJI, DPM [place] 2 ans DPM 2020-04-27 2020-04-27 Steven JEAN [facility]opedics [id number] [place] 14:45:00 14:45:00 t; RAJI JEAN BAPTISTE, - [place] Phys ici RAJI, DPM [place] 2 ans DPM 2020-03-29 2020-03-29 Steven JEAN [facility]opedics [id number] [place] 13:00:00 13:00:00 t; RAJI JEAN BAPTISTE, - [place] Phys ici RAJI, DPM [place] 2 ans DPM 2020-03-08 2020-03-08 Steven JEAN [facility]opedics [id number] [place] 11:15:00 11:15:00 t; RAJI JEAN BAPTISTE, - [place] Phys ici RAJI, DPM [place] 2 [place] DPM 2020-02-26 2020-02-26 Outpatient nullFlavo [facility] [id number] Memoria 10:46:09 16:30:[address] [facility] 2020-02-26 2020-02-26 Steven JEAN [facility]opedics [id number] [place] 10:30:00 10:30:00 t; RAJI JEAN BAPTISTE, - [place] Phys ici RAJI, DPM [place] 2 ans DPM 2020-02-02 2020-02-02 Appointmen MARKEL [facility] Orthopedics [id number] [place] 10:45:00 10:45:00 t; RAJI JEAN BAPTISTE, - [place] Phys ici RAJI, DPM [place] 2 ans DPM 2020-01-15 2020-01-16 Outpatient nullFlavo MNA [id number] Memoria 20:00:00 04:59:59 r Neurology 07 [place] 2020-01-15 2020-01-15 Ambulatory nullFlavo MNA [id number] Memoria 20:00:00 20:00:00 Pre-Reg r Neurology 06 l [place] 2019-12-02 2019-12-03 Outpatient nullFlavo MNA [id number] Memoria 20:30:00 04:59:59 r Neurology 05 [place] 2019-05-23 2019-05-23 Ambulatory nullFlavo MNA [id number] Memoria 19:15:00 19:15:00 Pre-Reg r Neurology 04 l Nik Segovia 2019-03-23 2019-03-23 Emergency Harish, [facility] [id number] 12:37:57 13:11:00 Palomo Dumont 350.1.13.10 [place] 4.2.7.2.686 [place] [id number] 2019-03-23 2019-03-23 Orders Doctor SPENSER [id number] [id number] 00:00:00 00:00:00 Only Unassigned, MARIA ELENA 350.1.13.10 [place] [facility] 4.2.7.2.686 [id number] 2019-02-14 2019-02-15 Outpatient nullFlavo MNA [id number] Memoria 20:00:00 04:59:59 r Neurology 02 l [place] 2018-12-24 2018-12-25 Outpatient nullFlavo MNA [id number] Memoria 20:15:00 04:59:59 r Neurology 03 l [place] 2018-12-20 2018-12-21 Outpatient nullFlavo MNA [id number] Memoria 18:45:00 04:59:59 r Neurology 01 [place] 2018-11-22 2018-11-23 Outpatient nullFlavo [employer] [id number] Memoria 19:45:00 04:59:59 r Neurology 00 [place] Results Test Description Test Time Test Comments Results Result Comments Source LABORATORY 2020-02-18 17:38:00 Test Item Value Reference Range Interpretation Comme nts Glucose Lvl (test code = Glucose Lvl) 89 70-99 [place] [id number] 17:38:00 Test Item Value Reference Range Interpretation Comments BUN (test code = BUN) 12 7-22 [place] [id number] 17:38:00 Test Item Value Reference Range Interpretation Comments Creatinine (test code = Creatinine) 0.79 0.50-1.40 [place] [id number] 17:38:00 Test Item Value Reference Range Interpretation Comments Sodium Level (test code = Sodium Level) 141 135-145 [place] [id number] 17:38:00 Test Item Value Reference Range Interpretation Comments Potassium Level (test code = Potassium 4.5 3.5-5.1 Level) [place] [id number] 17:38:00 Test Item Value Reference Range Interpretation Comments Chloride Level (test code = Chloride 108 95-109 Level) [place] [id number] 17:38:00 Test Item Value Reference Range Interpretation Comments Total Carbon Dioxide Level (test code = 24 24-32 Total Carbon Dioxide Level) [place] [id number] 17:38:00 Test Item Value Reference Range Interpretation Comments AGAP (test code = AGAP) 13.5 10.0-20.0 [place] [id number] 17:38:00 Test Item Value Reference Range Interpretation Comments Calcium Level (test code = Calcium 9.5 8.5-10.5 Level) [place] [id number] 17:38:00 Test Item Value Reference Range Interpretation Comments eGFR (test code = eGFR) 92 [place] 885540-08-05 17:38:00 Test Item Value Reference Range Interpretation Comments Results (test code = Reported (02/18/20 12:38 Results) PM) [place] 885540-08-05 17:38:00 Test Item Value Reference Range Interpretation Comments White Blood Count (test code = White 6.4 3.7-10.4 Blood Count) [facility]bpwrjLQZNOTZZYL5698-70-18 17:38:00 Test Item Value Reference Range Interpretation Comments Red Blood Cell Count (test code = Red 4.37 4.20-5.40 Blood Cell Count) [facility] CampusVhcajcuQCSWUKAKTL7445-21-75 17:38:00 Test Item Value Reference Range Interpretation Comments Hemoglobin (test code = Hemoglobin) 12.7 12.0-16.0 [facility] CampusNnzmmcmRPUSRXKGJF9275-41-58 17:38:00 Test Item Value Reference Range Interpretation Comments Hematocrit (test code = Hematocrit) 38.3 36.0-48.0 [facility] CampusAffxghvYZCNOYIXRL8678-26-45 17:38:00 Test Item Value Reference Range Interpretation Comments MCV (test code = MCV) 87.5 80.0-98.0 [facility] CampusExqmoewTQQNGFFVPN7774-88-25 17:38:00 Test Item Value Reference Range Interpretation Comments MCH (test code = MCH) 29.2 pg 27.0-31.0 [facility] CampusIukylzxHPTFTJKZTW5151-91-99 17:38:00 Test Item Value Reference Range Interpretation Comments MCHC (test code = MCHC) 33.3 32.0-36.0 [facility] CampusFkwzkthOHWNFUJLVR5905-03-65 17:38:00 Test Item Value Reference Range Interpretation Comments RDW (test code = RDW) 14.2 11.5-14.5 [facility] CampusYzhudsxIVYRHTGUWE8450-53-14 17:38:00 Test Item Value Reference Range Interpretation Comments Platelet (test code = Platelet) 300 133-450 [facility] CampusToixrkwJTGRTOYXLO3601-86-68 17:38:00 Test Item Value Reference Range Interpretation Comments MPV (test code = MPV) 8.3 7.4-10.4 [facility] CampusAcqvcutCRMHZHRMZV6404-24-54 17:38:00 Test Item Value Reference Range Interpretation Comments NRBCs # (test code = NRBCs #) 0.1 0.4-2.2 [facility] [id number] 17:38:00 Test Item Value Reference Range Interpretation Comments Results (test code = Reported (02/18/20 12:38 Results) PM) [facility] [id number] 17:38:00 Test Item Value Reference Range Interpretation Comments Neutrophil % (test code = Neutrophil %) 62.2 45.0-75.0 [facility] [id number] 17:38:00 Test Item Value Reference Range Interpretation Comments Monocyte % (test code = Monocyte %) 6.8 2.0-12.0 [facility] [id number] 17:38:00 Test Item Value Reference Range Interpretation Comments Lymphocyte % (test code = Lymphocyte %) 26.9 20.0-40.0 [facility] [id number] 17:38:00 Test Item Value Reference Range Interpretation Comments Eosinophil # (test code 3.6 See_Comment [Au tomated message] The = Eosinophil #) system which generated this result tra nsmitted reference range : <=4.0. The reference r karan was not used to int erpret this result as normal/abnormal . [facility] [id number] 17:38:00 Test Item Value Reference Range Interpretation Comments Basophil % (test code = 0.5 See_Comment [Au tomated message] The Basophil %) system which ge nerated this result tra nsmitted reference range : <=1.0. The reference r karan was not used to int erpret this result as normal/abnormal . [facility] [id number] 17:38:00 Test Item Value Reference Range Interpretation Comments Neutrophil # (test code = Neutrophil #) 4.0 1.5-8.1 [facility] [id number] 17:38:00 Test Item Value Reference Range Interpretation Comments Lymphocyte # (test code = Lymphocyte #) 1.7 1.0-5.5 [facility] [id number] 17:38:00 Test Item Value Reference Range Interpretation Comments Monocyte # (test code = 0.4 See_Comment [Au tomated message] The Monocyte #) system which ge nerated this result tra nsmitted reference range : <=0.8. The reference r karan was not used to int erpret this result as normal/abnormal . [facility] [id number] 17:38:00 Test Item Value Reference Range Interpretation Comments Eosinophil % (test code 0.2 See_Comment [Au tomated message] The = Eosinophil %) system which generated this result tra nsmitted reference range : <=0.5. The reference r karan was not used to int erpret this result as normal/abnormal . [id number] 17:38:00 Test Item Value Reference Range Interpretation Comments Results (test code = Reported (02/18/20 12:38 Results) PM) [facility]
[2022-01-06] MEDS ORDERED: MORPHINE 2 MG/ML SYR ONE (17:04)
[2022-01-06] MEDS ORDERED: KETOROLAC 30 MG/ML INJ ONE (17:05)
[2022-01-06] MEDS ORDERED: MORPHINE 4 MG/ML SYR ONE (17:05)
[2022-01-06] MEDS ORDERED: LIDOCAINE 4% PATCH ONE (17:05)
[2022-01-06 17:15] LABS: Urine Blood Negative (Negative); Urine Glucose Negative (Negative); Urine Protein Trace (Negative); Urine Specific Gravity >=1.030 (1.005-1.030); Urine pH 6.5 (5.0-7.0)
--- NOTE | 2022-01-06 17:52 | ER ---
Nurse's Notes [facility] Name: Trudi Villavicencio Age: 46 yrs Sex: Female : 1975 Arrival Date: 01/06/2022 Time: 14:30 Bed 20 Private MD: Diagnosis: Intervertebral disc disorders with radiculopathy, lumbosacral region;Cervicalgia Presentation: 01/06 15:07 Chief complaint: Patient states: I am having bad back pain. I came Sunday and they gave jb4 me some shots and nothing has helped. My left arm feels week and tingly, my right thigh is just painful. Coronavirus screen: At this time, the client does not indicate any symptoms associated with coronavirus-19. Ebola Screen: No symptoms or risks identified at this time. Initial Sepsis Screen: Does the patient meet any 2 criteria? No. Patient's initial sepsis screen is negative. Does the patient have a suspected source of infection? No. Patient's initial sepsis screen is negative. Risk Assessment: Do you want to hurt yourself or someone else? Patient reports no desire to harm self or others. Onset of symptoms was January 06, 2022. Transition of care: patient was not received from another setting of care. 15:07 Method Of Arrival: Wheelchair jb4 15:07 Acuity: HOWIE 3 jb4 Triage Assessment: 15:10 General: Appears in no apparent distress. uncomfortable, Behavior is calm, cooperative, jb4 appropriate for age. Pain: Complains of pain in back Pain radiates to left arm and right leg Pain currently is 9 out of 10 on a pain scale. Neuro: Level of Consciousness is awake, alert, obeys commands, Oriented to person, place, time, situation, Reports weakness in left arm. Cardiovascular: Patient's skin is warm and dry. Respiratory: Airway is patent Respiratory effort is even, unlabored, Respiratory pattern is regular, symmetrical. Derm: Skin is intact, Skin is pink, warm \T\ dry. Musculoskeletal: Circulation, motion, and sensation intact. Range of motion: intact in all extremities. 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 - Social history:: Smoking status: Patient denies any tobacco usage or history of. Screenin:18 Abuse screen: Denies threats or abuse. Denies injuries from another. Nutritional jg9 screening: No deficits noted. Tuberculosis screening: No symptoms or risk factors identified. Fall Risk None identified. Assessment: 16:14 Reassessment: KEITH Nath in triage assessing pt. jl7 17:38 Reassessment: Patient and/or family updated on plan of care and expected duration. Pain jg9 level reassessed. Patient is alert, oriented x 3, equal unlabored respirations, skin warm/dry/pink. Patient states feeling better. Patient states symptoms have improved. Neuro: No deficits noted. Vital Signs: 15:07 BP 122 / 70; Pulse 75; Resp 16; Temp 97.7(TE); Pulse Ox 100% on R/A; Weight 112.94 kg jb4 (R); Height 5 ft. 2 in. (157.48 cm) (R); Pain 9/10; 17:00 BP 99 / 61; Pulse 67; Resp 20 S; Pulse Ox 95% on R/A; jg9 17:30 BP 100 / 66; Pulse 65; Resp 17 S; Pulse Ox 96% on R/A; jg9 15:07 Body Mass Index 45.54 (112.94 kg, 157.48 cm) jb4 ED Course: 14:30 Patient arrived in ED. cl3 15:10 Triage completed. jb4 15:10 Arm band placed on right wrist. jb4 15:12 Giuseppe Matthews PA is PHCP. cp 15:12 Jacinto Thomas MD is Attending Physician. cp 16:52 Carla Arnold, BECK is Primary Nurse. jg9 17:18 Patient has correct armband on for positive identification. Bed in low position. Call jg9 light in reach. Side rails up X 1. 17:48 Tacho Morrow DO is Referral Physician. cp 18:17 No provider procedures requiring assistance completed. jg9 18:18 Patient did not have IV access during this emergency room visit. jg9 Administered Medications: 17:15 Drug: morphine 5 mg Route: IM; Site: right vastus lateralis; jg9 17:39 Follow up: Response: No adverse reaction; Pain is decreased jg9 17:15 Drug: Ketorolac 60 mg Route: IM; Site: left vastus lateralis; jg9 17:39 Follow up: Response: No adverse reaction; Pain is decreased jg9 17:17 Drug: Lidoderm Patch 5 % (700 mg/patch) 1 patches {Note: lower back.} Route: Topical; jg9 Site: affected area; 17:40 Follow up: Response: No adverse reaction; Pain is decreased jg9 Medication: 17:19 VIS not applicable for this client. jg9 Point of Care Testing: Urine : 17:18 hCG Reading: Negative; Control Reading: Positive; jg9 Outcome: 17:51 Discharge ordered by MD. cp 18:17 Discharged to home via wheelchair. jg9 18:17 Condition: stable 18:17 Discharge instructions given to patient, Instructed on discharge instructions, follow up and referral plans. Demonstrated understanding of instructions, follow-up care, Prescriptions given X 3. 18:18 Patient left the ED. jg9 Signatures: Giuseppe Matthews PA PA cp Bryson, James, RN RN jb4 Misa Alfredo RN RN jl7 Christina Santacruz cl3 Carla Arnold RN RN jg9
--- NOTE | 2022-01-06 17:52 | EDPHYS ---
Physician Documentation [facility] Name: Trudi Villavicencio Age: 46 yrs Sex: Female : 1975 Arrival Date: 01/06/2022 Time: 14:30 Bed 20 Private MD: ED Physician Jacinto Thomas HPI: 01/06 16:40 This 46 yrs old Female presents to ER via Wheelchair with complaints of Back Pain. cp 16:40 The patient presents with pain that is chronic. The symptoms are located in the neck cp and low back. Onset: The symptoms/episode began/occurred chronically. Associated signs and symptoms: Pertinent negatives: abdominal pain, chest pain, constipation, fever, incontinence, numbness, urinary retention, weakness. Patient reports history of chronic neck and back pain. Reports since losing insurance, she has not been able to f/u with doctor for pain and was seen in this ED 4 days ago with similar complaints and prescribed meds that are not helping. Patient has MRI report of cervical and lumbar spine from 2019 that reports multiple levels of disc herniation. Patient reports radiating pain to right arm and right leg. Patient denies incontinence, denies saddle anesthesia. 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 - Social history:: Smoking status: Patient denies any tobacco usage or history of. ROS: 16:45 Constitutional: Negative for body aches, chills, fever, poor PO intake. cp 16:45 Neck: Positive for pain with movement, pain at rest. cp 16:45 Cardiovascular: Negative for chest pain, edema, palpitations. 16:45 Respiratory: Negative for cough, shortness of breath, wheezing. 16:45 Abdomen/GI: Negative for abdominal pain, nausea, vomiting, and diarrhea, bowel incontinence. 16:45 Back: Positive for pain at rest, pain with movement. 16:45 : Negative for urinary symptoms, difficulty urinating, bladder incontinence. 16:45 Neuro: Negative for altered mental status, headache, numbness, weakness. 16:45 All other systems are negative. Exam: 16:50 Constitutional: The patient appears in no acute distress, alert, awake, cp non-diaphoretic, non-toxic, well developed, well nourished, obese. 16:50 Head/Face: Normocephalic, atraumatic. cp 16:50 Eyes: Periorbital structures: appear normal, Conjunctiva: normal, no exudate, no injection, Sclera: no appreciated abnormality, Lids and lashes: appear normal, bilaterally. 16:50 ENT: External ear(s): are unremarkable, Nose: is normal, Mouth: Lips: moist, Oral mucosa: pink and intact, moist, Posterior pharynx: Airway: no evidence of obstruction, patent. 16:50 Neck: ROM/movement: limited range of motion, is not appreciated, Meningeal signs: are not present, nuchal rigidity, is not appreciated. 16:50 Chest/axilla: Inspection: normal, Palpation: is normal. 16:50 Cardiovascular: Rate: normal. 16:50 Respiratory: the patient does not display signs of respiratory distress, Respirations: normal, no use of accessory muscles, no retractions, labored breathing, is not present, Breath sounds: are clear throughout, no decreased breath sounds. 16:50 Abdomen/GI: Inspection: obese Palpation: abdomen is soft and non-tender, in all quadrants. 16:50 Back: pain, that is moderate, ROM is painful, with all movement, Straight leg raises: of both lower extremities does not illicit pain. 16:50 Neuro: Orientation: to person, place \T\ time. Mentation: is normal, Motor: moves all fours, strength is normal, Sensation: no obvious gross deficits, Gait: is steady. Vital Signs: 15:07 BP 122 / 70; Pulse 75; Resp 16; Temp 97.7(TE); Pulse Ox 100% on R/A; Weight 112.94 kg jb4 (R); Height 5 ft. 2 in. (157.48 cm) (R); Pain 9/10; 17:00 BP 99 / 61; Pulse 67; Resp 20 S; Pulse Ox 95% on R/A; jg9 17:30 BP 100 / 66; Pulse 65; Resp 17 S; Pulse Ox 96% on R/A; jg9 15:07 Body Mass Index 45.54 (112.94 kg, 157.48 cm) jb4 MDM: 16:19 Patient medically screened. cp 17:00 Differential diagnosis: chronic back pain, ruptured disc, Ureterolithiasis vertebral cp fracture, cauda equina, spinal stenosis. 17:50 Data reviewed: vital signs, nurses notes. 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 Response to treatment: the patient's symptoms have markedly improved after treatment, and as a result, I will discharge patient. 01/06 16:37 Order name: Urine Microscopic Only cp 01/06 17:15 Order name: Urine Dipstick-Ancillary EDMS 01/06 16:37 Order name: Urine Dipstick-Ancillary (obtain specimen); Complete Time: 17:18 cp 01/06 16:37 Order name: Urine Test (obtain specimen); Complete Time: 17:18 cp Administered Medications: 17:15 Drug: morphine 5 mg Route: IM; Site: right vastus lateralis; jg9 17:39 Follow up: Response: No adverse reaction; Pain is decreased jg9 17:15 Drug: Ketorolac 60 mg Route: IM; Site: left vastus lateralis; jg9 17:39 Follow up: Response: No adverse reaction; Pain is decreased jg9 17:17 Drug: Lidoderm Patch 5 % (700 mg/patch) 1 patches {Note: lower back.} Route: Topical; jg9 Site: affected area; 17:40 Follow up: Response: No adverse reaction; Pain is decreased jg9 Point of Care Testing: Urine : 17:18 hCG Reading: Negative; Control Reading: Positive; jg9 Disposition Summary: 01/06/22 17:51 Discharge Ordered Location: Home cp Problem: chronic cp Symptoms: have improved cp Condition: Stable cp Diagnosis - Intervertebral disc disorders with radiculopathy, lumbosacral region cp - Cervicalgia cp Followup: cp - With: Tacho Morrow DO - When: 2 - 3 days - Reason: Recheck today's complaints Discharge Instructions: - Discharge Summary Sheet cp - Chronic Back Pain cp - Neck Exercises cp - Herniated Disk cp - Back Exercises cp Forms: - Medication Reconciliation Form cp - Thank You Letter cp - Antibiotic Education cp - Prescription Opioid Use cp Prescriptions: - Lidoderm 5 % Topical adhesive patch,medicated - apply 1 patch by TOPICAL route once daily; 20 patch; Refills: 0, Product cp Selection Permitted - Diclofenac Sodium 75 mg Oral Tablet Sustained Release - take 1 tablet by ORAL route 2 times per day; 30 tablet; Refills: 0, Product cp Selection Permitted - Baclofen 10 mg Oral Tablet - take 1 tablet by ORAL route 3 times per day; 20 tablet; Refills: 0, Product cp Selection Permitted Addendum: 01/09/2022 10:25 Co-signature as Attending Physician, Jacinto Thomas MD. r n Signatures: Dispatcher [employer] Jacinto Srivasatva MD MD rn Page, Corey, PA PA cp Sterling Gerard, RN RN jb4 Carla Arnold RN RN jg9
[2022-01-06 18:09] LABS: Urine Bacteria <20 /HPF (<20); Urine RBC NONE SEEN /HPF (NONE SEEN)
[2022-01-06 18:32] VITALS: TEMP 97.7
[2022-01-06 18:34] VITALS: BP 100/66; O2SAT 96
== END 2022-01-06 18:18 | disposition home or self-care (01) ==
LOC: ER 14:26
DX: M51.17 Intervertebral disc disorders with radiculopathy, lumbosacral region (principal); M54.2 Cervicalgia; Z88.5 Allergy status to narcotic agent; Z88.6 Allergy status to analgesic agent; Z88.8 Allergy status to other drugs, medicaments and biological substances
CPT/HCPCS: 81003; 81015; 96372; 99283; J2001; J2270

== ENCOUNTER 2022-01-30 09:31 | Emergency (ER) | payer SELFPAY ==
--- NOTE | 2022-01-30 11:57 | RAD REPORT ---
EXAM DESCRIPTION: MRI - Lumbar Spine Wo Con - 01/30/2022 11:32 am CLINICAL HISTORY: Lower extremity weakness, incontinence, constipation COMPARISON: MRI LUMBAR SPINE W O CON dated 09/30/2013 TECHNIQUE: Sagittal T1-weighted, T2-weighted and T2-STIR weighted sequences were obtained. Axial T1 -weighted and heavily T2-weighted sequenceswere obtained through the lumbar disc levels. FINDINGS: Lumbar bodies are normal in height and alignment. No suspicious marrow signal. No paraspi nal masses. Minimal incidental hemangioma central L3 body. Conus is normal with no clumping or thickening of the cauda equina. T12-L1 level: Right of midline 10 x 4 mm disc herniation is present. This flattens the anterior theca l sac but does not contact the cord or cause significant central spinal stenosis. No foraminal stenos is. L1-2 level: Disc is desiccated and slightly thinned. No canal or foramen stenosis. L2-3 level: No significant findings. L3-4 level: Disc is desiccated with minimal loss in disc height. Minimal disc bulge across the canal and into each exit foramen. No canal or foramen stenosis. No significant facet degenerative change. L4-5 level: Disc is desiccated with slight loss in disc height. Small midline annular fissure is pres ent. No canal or foramen stenosis. Facet degenerative changes minimal. L5-S1 level: Disc is desiccated with slight loss in disc height. A 9 x 3 mm midline disc herniation i s present. This flattens the thecal sac but no central spinal stenosis present. No foraminal stenosis . Facet degenerative changes minimal. IMPRESSION: L5-S1 midline disc herniation flattening the anterior thecal sac but not causing spinal stenosis. The small herniation is not significantly different from 2013. T12-L1 right of midline disc herniation. This flattens the thecal sac but does not contact the cord o r cause spinal stenosis. Multilevel degenerative disc disease as detailed in the body of the report. No areas of significant c anal or foramen encroachment.
[2022-01-30 13:02] LABS: Urine Blood Negative (Negative); Urine Glucose Negative (Negative); Urine Protein Negative (Negative); Urine Specific Gravity 1.015 (1.005-1.030)
[2022-01-30] MEDS ORDERED: MORPHINE 4 MG/ML SYR ONE (13:03)
[2022-01-30] MEDS ORDERED: KETOROLAC 30 MG/ML INJ ONE (13:03)
[2022-01-30 13:29] LABS: Specific Gravity 1.015 (1.005-1.030); Urine Bilirubin NEGATIVE (Negative); Urine Blood Negative (Negative); Urine Clarity Clear (Clear); Urine Color Yellow (Yellow); Urine Glucose NEGATIVE (Negative); Urine Protein NEGATIVE (Negative); Urine Urobilinogen 0.2 mg/dL (0.2-1.0); Urine pH 6.5 (5.0-7.0)
--- NOTE | 2022-01-30 14:19 | ER ---
Nurse's Notes [facility] Name: Trudi Villavicencio Age: 46 yrs Sex: Female : 1975 Arrival Date: 01/30/2022 Time: 09:33 Bed 18 Private MD: Diagnosis: Low back pain;Herniated disc Presentation: 01/30 11:39 Chief complaint: Patient states: lower back pain "years" and states urinary vg1 imcomitance; states pain in ANIYAH arms and legs; denies NVD. Coronavirus screen: Vaccine status: Patient reports receiving the 2nd dose of the covid vaccine. Client denies travel out of the [place] in the last 14 days. Ebola Screen: Patient denies exposure to infectious person. Patient denies travel to an Ebola-affected area in the 21 days before illness onset. Initial Sepsis Screen: Does the patient meet any 2 criteria? No. Patient's initial sepsis screen is negative. Does the patient have a suspected source of infection? No. Patient's initial sepsis screen is negative. Risk Assessment: Do you want to hurt yourself or someone else? Patient reports no desire to harm self or others. Onset of symptoms was December 29, 2021. 11:39 Method Of Arrival: Wheelchair vg1 11:39 Acuity: HOWIE 3 vg1 Triage Assessment: 11:44 General: Appears uncomfortable, Behavior is calm, crying. Pain: Complains of pain in vg1 back, right arm, left arm, right leg and left leg Pain currently is 10 out of 10 on a pain scale. Musculoskeletal: Circulation, motion, and sensation intact. Historical: - Allergies: 11:44 Aspirin; vg1 11:44 Codeine; vg1 11:44 tramadol; vg1 - PMHx: 11:44 Osteoarthritis; Radiculopathy; Neuropathy; Gastritis; vg1 - Immunization history:: Client reports receiving the 2nd dose of the Covid vaccine. - Social history:: Smoking status: Patient denies any tobacco usage or history of. Screenin:06 Abuse screen: Denies threats or abuse. Denies injuries from another. Nutritional hb screening: No deficits noted. Tuberculosis screening: No symptoms or risk factors identified. Fall Risk None identified. Assessment: 13:06 General: Appears in no apparent distress. Behavior is calm, cooperative. Pain: Pain hb currently is 8 out of 10 on a pain scale. Neuro: Level of Consciousness is awake, alert, obeys commands, Oriented to person, place, time, situation. Cardiovascular: Patient's skin is warm and dry. Respiratory: Respiratory effort is even, unlabored, Respiratory pattern is regular, symmetrical. Vital Signs: 11:39 BP 115 / 77; Pulse 78; Resp 18; Temp 98.8; Pulse Ox 100% on R/A; Weight 112.94 kg; vg1 Height 5 ft. 3 in. (160.02 cm); Pain 10/10; 13:06 BP 104 / 68; Pulse 80; Resp 16; Pulse Ox 99% on R/A; Pain 8/10; hb 11:39 Body Mass Index 44.11 (112.94 kg, 160.02 cm) vg1 ED Course: 09:33 Patient arrived in ED. mr 09:36 Sunil Douglas DO is Attending Physician. ms3 10:58 Triage completed. vg1 11:30 MRI Lumbar Spine wo Con In Process Unspecified. EDMS 11:39 Patient moved back from MRI. vg1 11:44 Arm band placed on. vg1 12:03 Reina Cummings, BECK is Primary Nurse. miller 13:06 Patient has correct armband on for positive identification. Call light in reach. hb 14:17 Elio Severino DO is Referral Physician. ms3 16:20 No provider procedures requiring assistance completed. Patient did not have IV access miller during this emergency room visit. Administered Medications: 13:04 Drug: morphine 4 mg Route: IVP; Infused Over: 4 mins; Site: Other; hb 13:04 Drug: Ketorolac 15 mg Route: IVP; Site: Other; hb Medication: 13:06 VIS not applicable for this client. hb Outcome: 14:18 Discharge ordered by . ms3 16:20 Discharged to home ambulatory. miller 16:20 Condition: good 16:20 Discharge instructions given to patient. 16:20 Patient left the ED. miller Signatures: Dispatcher [employer] Aileen Landaverde Heather, RN RN hb Garcia, Victoria, RN RN vg1 Sunil Douglas DO DO ms3 Reina Cummings RN RN miller Corrections: (The following items were deleted from the chart) 11:33 10:57 Chief complaint: Patient states: "sharp" left flank pain with nausea. Also states vg1 burning sensation upon urination. vg1 10:57 Coronavirus screen: Vaccine status: Patient reports receiving the 2nd dose of the vg1 covid vaccine. Client denies travel out of the [place] in the last 14 days. vg1 10:57 Ebola Screen: Patient denies exposure to infectious person. Patient denies travel vg1 to an Ebola-affected area in the 21 days before illness onset. vg1 10:57 Initial Sepsis Screen: Does the patient meet any 2 criteria? No. Patient's vg1 initial sepsis screen is negative. Does the patient have a suspected source of infection? No. Patient's initial sepsis screen is negative. vg1 10:57 Risk Assessment: Do you want to hurt yourself or someone else? Patient reports no vg1 desire to harm self or others. vg1 10:57 Onset of symptoms was January 30, 2022 1 1 10:57 Method Of Arrival: [facility] 10:57 BP 148 / 85; Pulse 80bpm; Resp 16bpm; Pulse Ox 97%; Temp 97.7F; 83.91 kg; Height vg1 5 ft. 3 in.; BMI: 32.7; Pain 10/10; vg1 33 10:57 Acuity: HOWIE 3 vg1 vg1 11:34 10:58 Allergies: Aspirin; vg1 vg1 11:34 10:58 Allergies: Codeine; vg1 vg1 11:34 10:58 Allergies: Topamax; vg1 vg1 11:34 10:58 Allergies: topiramate; vg1 vg1 11:34 10:58 Allergies: tramadol; vg1 vg1 11:34 10:58 Home Meds: Metformin Oral; vg1 vg1 11:34 10:58 Home Meds: Protonix Oral; vg1 vg1 11:34 10:58 Home Meds: Famotidine Oral; vg1 vg1 11:34 10:58 PMHx: Asthma; vg1 vg1 11:34 10:58 PMHx: bleeding ulcer; vg1 vg1 11:34 10:58 PMHx: chronic back pain; vg1 vg1 11:34 10:58 PMHx: Degenerative disc disease; vg1 vg1 11:34 10:58 PMHx: DGD; vg1 vg1 11:34 10:58 PMHx: enlarged aorta; vg1 vg1 11:34 10:58 PMHx: erosive gastritis; vg1 vg1 11:34 10:58 PMHx: Fibromyalgia; vg1 vg1 11:34 10:58 PMHx: Herniated disc; vg1 vg1 11:34 10:58 PMHx: herniated disk; vg1 vg1 11:34 10:58 PMHx: neuropathy; vg1 vg1 11:34 10:58 PSHx: Cholecystectomy; vg1 vg1 11:34 10:58 Immunization history: Client reports receiving the 2nd dose of the Covid vaccine, vg1 vg1 11:34 10:58 Social history: Smoking status: Patient denies any tobacco usage or history of. vg1 vg1 11:34 10:58 General: Appears comfortable, Behavior is calm, cooperative, vg1 vg1 11:34 10:58 Pain: Complains of pain in left flank Pain currently is 6 out of 10 on a pain vg1 scale. vg1 11:34 10:58 : Reports burning with urination, vg1 vg1 11:34 10:58 LMP N/A - Post-menopause vg1 vg1 11:34 10:58 Arm band placed on vg1 vg1
--- NOTE | 2022-01-30 14:19 | EDPHYS ---
Physician Documentation [facility] Name: Trudi Villavicencio Age: 46 yrs Sex: Female : 1975 Arrival Date: 01/30/2022 Time: 09:33 Bed 18 Private MD: ED Physician Sunil Douglas HPI: 01/30 14:18 This 46 yrs old Female presents to ER via Wheelchair with complaints of Urinary Problem.ms3 14:18 The patient presents with pain that is acute, with no known mechanism of injury. The ms3 symptoms are located in the low back. Onset: The symptoms/episode began/occurred Chronic for years, and became worse 3 day(s) ago. The pain does not radiate. Associated signs and symptoms: Pertinent positives: constipation, bladder incontinence. The problem was sustained without known cause. Modifying factors: The patient symptoms are alleviated by nothing, the patient symptoms are aggravated by nothing. Severity of symptoms: At their worst the symptoms were incapacitating, in the emergency department the symptoms are unchanged. The patient has experienced similar episodes in the past, chronically. Historical: - Allergies: 11:44 Aspirin; vg1 11:44 Codeine; vg1 11:44 tramadol; vg1 - PMHx: 11:44 Osteoarthritis; Radiculopathy; Neuropathy; Gastritis; vg1 - Immunization history:: Client reports receiving the 2nd dose of the Covid vaccine. - Social history:: Smoking status: Patient denies any tobacco usage or history of. ROS: 14:18 Constitutional: Negative for fever, and chills. Neck: Negative for injury, pain, and ms3 swelling, Cardiovascular: Negative for chest pain, and palpitations. Respiratory: Negative for shortness of breath, cough, wheezing, and pleuritic chest pain, Abdomen/GI: Negative for abdominal pain, nausea, vomiting, diarrhea, and constipation, MS/Extremity: Negative for injury and deformity, Skin: Negative for injury, rash, and discoloration, Psych: Negative for depression, anxiety, suicide ideation, homicidal ideation, and hallucinations. 14:18 Abdomen/GI: Positive for constipation. 14:18 Back: Positive for pain at rest, pain with movement. 14:18 : Positive for bladder incontinence Exam: 14:18 Constitutional: This is a well developed, well nourished patient who is awake, alert, ms3 and in no acute distress. Eyes: Pupils equal round and reactive to light, extra-ocular motions intact. Lids and lashes normal. Conjunctiva and sclera are non-icteric and not injected. Periorbital areas with no swelling, redness, or edema. Neck: Trachea midline, no cervical lymphadenopathy. Supple, full range of motion without nuchal rigidity, or vertebral point tenderness. No Meningismus. Chest/axilla: Normal chest wall appearance and motion. Nontender with no deformity. Cardiovascular: Regular rate and rhythm with a normal S1 and S2. No gallops, murmurs, or rubs. Normal PMI, no JVD. No pulse deficits. Respiratory: Lungs have equal breath sounds bilaterally, clear to auscultation and percussion. No rales, rhonchi or wheezes noted. No increased work of breathing, no retractions or nasal flaring. Abdomen/GI: Soft, non-tender, with normal bowel sounds. No distension or tympany. No guarding or rebound. No evidence of tenderness throughout. Skin: Warm, dry with normal turgor. Normal color with no rashes, no lesions, and no evidence of cellulitis. MS/ Extremity: Pulses equal, no cyanosis. Neurovascular intact. Full, normal range of motion. Psych: Awake, alert, with orientation to person, place and time. Behavior, mood, and affect are within normal limits. 14:18 Back: pain, that is severe, of the lumbar area, ROM is painful, with all movement. Vital Signs: 11:39 BP 115 / 77; Pulse 78; Resp 18; Temp 98.8; Pulse Ox 100% on R/A; Weight 112.94 kg; vg1 Height 5 ft. 3 in. (160.02 cm); Pain 10/10; 13:06 BP 104 / 68; Pulse 80; Resp 16; Pulse Ox 99% on R/A; Pain 8/10; hb 11:39 Body Mass Index 44.11 (112.94 kg, 160.02 cm) vg1 MDM: 12:00 Patient medically screened. ms3 14:18 Differential diagnosis: chronic back pain, Epidural or Perispinal Abcess Fracture ms3 Obesity. Data reviewed: vital signs, nurses notes, lab test result(s), radiologic studies, MRI, and as a result, I will discharge patient. Counseling: I had a detailed discussion with the patient and/or guardian regarding: the historical points, exam findings, and any diagnostic results supporting the discharge/admit diagnosis, lab results, radiology results, the need for outpatient follow up, to return to the emergency department if symptoms worsen or persist or if there are any questions or concerns that arise at home. ED course: Discussed MRI, UA , PE findings with patient. Patient to follow up with Dr Severino in 2-3 days. Patient understands/ agrees with plan. All questions answered. Return precautions given to include worsening symptoms, or any other concerns. Patient is improved, in NAD, non-toxic appearing, ambulatory in ED, speaking full sentences. . 01/30 09:57 Order name: Urinalysis; Complete Time: 13:59 ms3 01/30 13:02 Order name: Urine Dipstick-Ancillary; Complete Time: 13:59 EDMS 01/30 09:56 Order name: MRI Lumbar Spine wo Con; Complete Time: 11:59 ms3 01/30 13:06 Order name: Urine --Ancillary (enter results) eb 01/30 09:57 Order name: Urine Dipstick-Ancillary (obtain specimen); Complete Time: 13:04 ms3 Administered Medications: 13:04 Drug: morphine 4 mg Route: IVP; Infused Over: 4 mins; Site: Other; 13:04 Drug: Ketorolac 15 mg Route: IVP; Site: Other; Disposition Summary: 01/30/22 14:18 Discharge Ordered Location: Home ms3 Condition: Stable ms3 Diagnosis - Low back pain ms3 - Herniated disc ms3 Followup: ms3 - With: Elio Severino DO - When: 2 - 3 days - Reason: Re-evaluation by your physician Discharge Instructions: - Discharge Summary Sheet ms3 - Acute Back Pain, Adult ms3 Forms: - Medication Reconciliation Form ms3 - Thank You Letter ms3 - Antibiotic Education ms3 - Prescription Opioid Use ms3 Signatures: Dispatcher [employer] EDMS Reina Rolle, RN RN Dana Charlton RN RN vg1 Sunil Douglas DO DO ms3 Corrections: (The following items were deleted from the chart) 11:34 10:58 Allergies: Aspirin; vg1 vg1 11:34 10:58 Allergies: Codeine; vg1 vg1 11:34 10:58 Allergies: Topamax; vg1 vg1 11:34 10:58 Allergies: topiramate; vg1 vg1 11:34 10:58 Allergies: tramadol; vg1 vg1 11:34 10:58 Home Meds: Metformin Oral; vg1 vg1 11:34 10:58 Home Meds: Protonix Oral; vg1 vg1 11:34 10:58 Home Meds: Famotidine Oral; vg1 vg1 11:34 10:58 PMHx: Asthma; vg1 vg1 11:34 10:58 PMHx: bleeding ulcer; vg1 vg1 11:34 10:58 PMHx: chronic back pain; vg1 vg1 11:34 10:58 PMHx: Degenerative disc disease; vg1 vg1 11:34 10:58 PMHx: DGD; vg1 vg1 11:34 10:58 PMHx: enlarged aorta; vg1 vg1 11:34 10:58 PMHx: erosive gastritis; vg1 vg1 11:34 10:58 PMHx: Fibromyalgia; vg1 vg1 11:34 10:58 PMHx: Herniated disc; vg1 vg1 11:34 10:58 PMHx: herniated disk; vg1 vg1 11:34 10:58 PMHx: neuropathy; vg1 vg1 11:34 10:58 PSHx: Cholecystectomy; vg1 vg1 11:34 10:58 Immunization history: Client reports receiving the 2nd dose of the Covid vaccine, vg1 vg1 11:34 10:58 Social history: Smoking status: Patient denies any tobacco usage or history of. vg1 vg1 13:31 13:31 Urinalysis ordered. EDMS EDMS
[2022-01-30 16:11] LABS: Urine Specific Gravity/Preg 1.015 (1.005-1.030)
[2022-01-30 16:25] VITALS: TEMP 98.8
[2022-01-30 16:27] VITALS: BP 104/68; O2SAT 99
== END 2022-01-30 16:20 | disposition home or self-care (01) ==
LOC: ER 09:31
DX: M51.26 Other intervertebral disc displacement, lumbar region (principal); K59.00 Constipation, unspecified; Z88.5 Allergy status to narcotic agent; Z88.6 Allergy status to analgesic agent
CPT/HCPCS: 72148; 81003; 81025; 96374; 96375; 99284

== ENCOUNTER 2022-02-10 17:26 | Emergency (ER) | payer SELFPAY ==
[2022-02-10 20:32] LABS: Absolute Lymphocytes (CBC) 1.6 K/uL (0.7-4.9); Hematocrit 38.3 % (36.0-45.0); Lymphocytes % 21.3 % (15.3-44.8); MCV 84.3 fL (80-100); MPV 7.9 fL (7.6-11.3); RBC Red Blood Cell Count 4.54 M/uL (3.86-4.86)
[2022-02-10 20:49] LABS: Bilirubin Direct 0.1 mg/dL (0-0.2); Bilirubin Total 0.5 mg/dL (0.2-1.0); Potassium 3.2 mmol/L (3.5-5.1); Protein, Total 8.1 g/dL (6.4-8.2)
[2022-02-10] MEDS ORDERED: ONDANSETRON 4 MG/2 ML VIAL ONE (20:54)
[2022-02-10] MEDS ORDERED: NA CHLORIDE 0.9% 1,000 ML ONE (20:54)
[2022-02-10] MEDS ORDERED: MORPHINE 4 MG/ML SYR ONE (20:54)
[2022-02-10 21:01] LABS: Urine Blood Negative (Negative); Urine Glucose Negative (Negative); Urine Protein Negative (Negative)
[2022-02-10 21:17] LABS: Urine Bacteria <20 /HPF (<20); Urine RBC <5 /HPF (None Seen)
[2022-02-10] MEDS ORDERED: POTASSIUM 25 MEQ EFFERV TAB ONE (21:49)
[2022-02-10] MEDS ORDERED: KETOROLAC 30 MG/ML INJ ONE (21:49)
[2022-02-10 22:22] LABS: Magnesium 2.1 mg/dL (1.8-2.4)
[2022-02-10] MEDS ORDERED: dexAMETHasone 10 MG/ML VIAL ONE (22:22)
[2022-02-10] MEDS ORDERED: CYCLOBENZAPRINE 10 MG TAB ONE (22:22)
--- NOTE | 2022-02-11 00:07 | EDPHYS ---
Physician Documentation [facility] Name: Trudi Villavicencio Age: 46 yrs Sex: Female : 1975 Arrival Date: 02/10/2022 Time: 17: Bed 13 Private MD: ED Physician Jeff Philip HPI: 02/10 19:25 This 46 yrs old Female presents to ER via Ambulatory with complaints of Back Pain. mh7 19:25 The patient presents with pain that is chronic, with no known mechanism of injury. mh7 19:25 The symptoms are located in the low back, neck. mh7 19:25 Onset: The symptoms/episode began/occurred 2 month(s) ago, and became persistent 2 mh7 weeks ago. The pain radiates to the right leg and left leg. 19:25 Associated signs and symptoms: Pertinent negatives: abdominal pain, chest pain, mh7 constipation, dysuria, fever, headache, hematuria, incontinence, nausea, numbness, tingling, urinary retention, vomiting, weakness. 19:25 The problem was sustained from unknown cause. Modifying factors: The patient symptoms mh7 are alleviated by nothing, the patient symptoms are aggravated by movement, walking. Severity of symptoms: At their worst the symptoms were moderate, 5 day(s) ago, in the emergency department the symptoms are unchanged. The patient has experienced similar episodes in the past, multiple times. Historical: - Allergies: 18:01 Aspirin; iw 18:01 Codeine; iw 18:01 tramadol; iw - PMHx: 18:01 gastritis; neuropathy; osteoarthritis; Radiculopathy; iw - Immunization history:: Adult Immunizations up to date. - Social history:: Smoking status: Patient denies any tobacco usage or history of. ROS: 19:25 Constitutional: Negative for fever, chills, and weight loss, Eyes: Negative for injury, mh7 pain, redness, and discharge, ENT: Negative for injury, pain, and discharge, Cardiovascular: Negative for chest pain, palpitations, and edema, Respiratory: Negative for shortness of breath, cough, wheezing, and pleuritic chest pain, Abdomen/GI: Negative for abdominal pain, nausea, vomiting, diarrhea, and constipation, : Negative for injury, bleeding, discharge, and swelling, MS/Extremity: Negative for injury and deformity, Skin: Negative for injury, rash, and discoloration, Neuro: Negative for headache, weakness, numbness, tingling, and seizure, Psych: Negative for depression, anxiety, suicide ideation, homicidal ideation, and hallucinations, Allergy/Immunology: Negative for hives, rash, and allergies, Endocrine: Negative for neck swelling, polydipsia, polyuria, polyphagia, and marked weight changes, Hematologic/Lymphatic: Negative for swollen nodes, abnormal bleeding, and unusual bruising. Exam: 19:25 Head/Face: Normocephalic, atraumatic. Eyes: Pupils equal round and reactive to light, mh7 extra-ocular motions intact. Lids and lashes normal. Conjunctiva and sclera are non-icteric and not injected. Cornea within normal limits. Periorbital areas with no swelling, redness, or edema. 19:25 Chest/axilla: Normal chest wall appearance and motion. Nontender with no deformity. No lesions are appreciated. Cardiovascular: Regular rate and rhythm with a normal S1 and S2. No gallops, murmurs, or rubs. Normal PMI, no JVD. No pulse deficits. Respiratory: Lungs have equal breath sounds bilaterally, clear to auscultation and percussion. No rales, rhonchi or wheezes noted. No increased work of breathing, no retractions or nasal flaring. Abdomen/GI: Soft, non-tender, with normal bowel sounds. No distension or tympany. No guarding or rebound. No evidence of tenderness throughout. 19:25 Skin: Warm, dry with normal turgor. Normal color with no rashes, no lesions, and no evidence of cellulitis. MS/ Extremity: Pulses equal, no cyanosis. Neurovascular intact. Full, normal range of motion. Neuro: Awake and alert, GCS 15, oriented to person, place, time, and situation. Cranial nerves II-XII grossly intact. Motor strength 5/5 in all extremities. Sensory grossly intact. Cerebellar exam normal. Normal gait. Psych: Awake, alert, with orientation to person, place and time. Behavior, mood, and affect are within normal limits. 19:25 Constitutional: The patient appears in no acute distress, alert, awake, uncomfortable. 19:25 Neck: External neck: tenderness, that is moderate, of the left mid cervical area, right mid cervical area, left trapezius and right trapezius, C-spine: appears grossly normal, Thyroid: appears normal, Trachea: is midline with no obvious abnormalities, ROM/movement: pain, that is moderate, with rotation to the left, with rotation to the right, Meningeal signs: are not present, nuchal rigidity, is not appreciated, Lymph nodes: no appreciated lymphadenopathy. 19:25 Back: pain, that is moderate, of the lumbar area, left low back and right low back, ROM is painful, with all movement, normal spinal alignment noted, CVA tenderness, is absent, vertebral tenderness, is not appreciated, muscle spasm, is appreciated in the lumbar area, left low back and right low back, Straight leg raises: pain bilaterally. Vital Signs: 17:59 BP 127 / 100; Pulse 110; Resp 16; Temp 98.7; Pulse Ox 100% on R/A; iw 21:43 BP 118 / 89; Pulse 60; Resp 18; Temp 98.4(O); Pulse Ox 100% on R/A; mh5 22:57 BP 103 / 76; Pulse 58; Resp 18; Pulse Ox 100% on R/A; mh5 MDM: 02/11 00:04 Differential diagnosis: arthritis, chronic back pain, Osteoarthritis. Data reviewed: [facility] vital signs, nurses notes, lab test result(s), CBC, electrolytes, urinalysis, UPT: negative. Data interpreted: Pulse oximetry: on room air is 100 %. Interpretation: normal. Counseling: I had a detailed discussion with the patient and/or guardian regarding: the historical points, exam findings, and any diagnostic results supporting the discharge/admit diagnosis, lab results, the need for outpatient follow up, to return to the emergency department if symptoms worsen or persist or if there are any questions or concerns that arise at home. Response to treatment: the patient's symptoms have resolved after treatment, the patient's blood pressure is in an acceptable range, mental status has returned to baseline, the patient no longer shows bradycardia, the patient is not short of breath, the patient is not tachycardic, the patient's pain is gone, the patient's temperature has normalized, the patient is now symptom free, patient is well hydrated. 00:07 Patient medically screened. [facility] 02/10 19:52 Order name: CBC with Diff; Complete Time: 20:46 [facility] 02/10 19:52 Order name: Basic Metabolic Panel; Complete Time: 23:35 [facility] 02/10 19:52 Order name: LFT's; Complete Time: 23:35 [facility] 02/10 19:52 Order name: Urine Microscopic Only; Complete Time: 21:18 [facility] 02/10 21:02 Order name: Urine Dipstick-Ancillary; Complete Time: 21:15 [facility] 02/10 21:04 Order name: Urine --Ancillary (enter results); Complete Time: 21:18 [facility] 02/10 22:07 Order name: SARS-COV-2 RT PCR [facility] 02/10 22:20 Order name: Magnesium; Complete Time: 23:35 [facility] 02/10 19:52 Order name: Urine Dipstick-Ancillary (obtain specimen); Complete Time: 21:02 [facility] 02/10 19:52 Order name: Urine Test (obtain specimen); Complete Time: 21:02 [facility] 02/10 19:52 Order name: Saline Lock; Complete Time: 20:26 [facility] Administered Medications: 02/10 21:02 Drug: morphine 4 mg Route: IVP; Infused Over: 4 mins; Site: right antecubital; vc1 21:02 Drug: Zofran (Ondansetron) 4 mg Route: IVP; Site: right antecubital; vc1 21:02 Drug: NS 0.9% 1000 ml Route: IV; Rate: 1000 ml; Site: right antecubital; vc1 22:08 Drug: Potassium Effervescent Tablet 50 mEq Route: PO; vc1 22:08 Drug: Ketorolac 30 mg Route: IVP; Site: right antecubital; vc1 22:20 Drug: Flexeril (cyclobenzaprine) 10 mg Route: PO; vc1 22:20 Drug: Decadron (dexamethasone) 10 mg Route: IM; Site: right deltoid; vc1 Disposition Summary: 02/11/22 00:07 Discharge Ordered Location: Home [facility] Problem: chronic [facility] Symptoms: have improved [facility] Condition: Stable [facility] Diagnosis - Low back pain 7 - Cervicalgia 7 Followup: [facility] - With: Private Physician - When: 1 - 2 days - Reason: Worsening of condition, Recheck today's complaints, Continuance of care, Re-evaluation by your physician Discharge Instructions: - Discharge Summary Sheet 7 - Chronic Back Pain 7 - Musculoskeletal Pain [facility] - Radicular Pain [facility] Forms: - Medication Reconciliation Form [facility] - Thank You Letter [facility] - Antibiotic Education [facility] - Prescription Opioid Use [facility] Prescriptions: - Cyclobenzaprine 10 mg Oral Tablet - take 1 tablet by ORAL route every 8 hours As needed; 30 tablet; Refills: 0, mh7 Product Selection Permitted - ketorolac 10 mg Oral tablet - take 1 tablet by ORAL route every 6 hours As needed not to exceed 40 mg in [facility] 24hrs; 15 tablet; Refills: 0, Product Selection Permitted - Medrol (Flako) 4 mg Oral Tablets, Dose Pack - take 1 tablet by ORAL route as directed - follow package instructions; 1 [facility] packet; Refills: 0, Product Selection Permitted Signatures: Dispatcher [employer] EDKellee Rosa RN RN iw Holmes, Maurice, MD MD [facility] Lucina Kiran RN RN vc1 Corrections: (The following items were deleted from the chart) 22:07 20:49 SARS-COV-2 Antigen Rapid+I.LAB.BRZ ordered. EDMS EDMS 22:20 21:56 MAGNESIUM+C.LAB.BRZ ordered. EDMS EDMS
--- NOTE | 2022-02-11 00:07 | ER ---
Nurse's Notes [facility] Name: Trudi Villavicencio Age: 46 yrs Sex: Female : 1975 Arrival Date: 02/10/2022 Time: 17:29 Bed 13 Private MD: Diagnosis: Low back pain;Cervicalgia Presentation: 02/10 17:59 Chief complaint: Patient states: has had a bad back for a while and now it's getting iw worse, had an MRI on but now i'm jut s having a lot of pain from lower back to neck and i have a hard time walking. Coronavirus screen: At this time, the client does not indicate any symptoms associated with coronavirus-19. Ebola Screen: Patient negative for fever greater than or equal to 101.5 degrees Fahrenheit, and additional compatible Ebola Virus Disease symptoms Patient denies exposure to infectious person. Patient denies travel to an Ebola-affected area in the 21 days before illness onset. No symptoms or risks identified at this time. Initial Sepsis Screen: Does the patient meet any 2 criteria? No. Patient's initial sepsis screen is negative. Does the patient have a suspected source of infection? No. Patient's initial sepsis screen is negative. Risk Assessment: Do you want to hurt yourself or someone else? Patient reports no desire to harm self or others. Onset of symptoms was February 10, 2022. 17:59 Method Of Arrival: Ambulatory iw 17:59 Acuity: HOWIE 3 iw Triage Assessment: 02/11 00:35 General: Appears in no apparent distress. uncomfortable, obese, Behavior is calm, tw5 appropriate for age. Pain: Complains of pain in right low back and left low back and lumbar area and right trapezius and left trapezius and right mid cervical area and left mid cervical area and left leg and right leg. EENT: No deficits noted. Neuro: Level of Consciousness is awake, alert, obeys commands, Oriented to person, place, time, situation, Appropriate for age. Cardiovascular: Capillary refill < 3 seconds Patient's skin is warm and dry. Historical: - Allergies: 02/10 18:01 Aspirin; iw 18:01 Codeine; iw 18:01 tramadol; iw - PMHx: 18:01 gastritis; neuropathy; osteoarthritis; Radiculopathy; iw - Immunization history:: Adult Immunizations up to date. - Social history:: Smoking status: Patient denies any tobacco usage or history of. Screenin:30 Abuse screen: Denies threats or abuse. Nutritional screening: No deficits noted. tw5 Tuberculosis screening: No symptoms or risk factors identified. Fall Risk None identified. Vital Signs: 17:59 BP 127 / 100; Pulse 110; Resp 16; Temp 98.7; Pulse Ox 100% on R/A; iw 21:43 BP 118 / 89; Pulse 60; Resp 18; Temp 98.4(O); Pulse Ox 100% on R/A; mh5 22:57 BP 103 / 76; Pulse 58; Resp 18; Pulse Ox 100% on R/A; mh5 ED Course: 17:29 Patient arrived in ED. mr 18:01 Triage completed. iw 18:01 Arm band placed on. iw 19:11 Jeff Philip MD is Attending Physician. mh7 20:27 Inserted saline lock: 22 gauge in right forearm, using aseptic technique. Blood ds4 collected. 22:58 Patient has correct armband on for positive identification. Placed in gown. Bed in low mh5 position. Call light in reach. 02/11 00:37 No provider procedures requiring assistance completed. IV discontinued, intact, vc1 bleeding controlled, No redness/swelling at site. Pressure dressing applied. Administered Medications: 02/10 21:02 Drug: morphine 4 mg Route: IVP; Infused Over: 4 mins; Site: right antecubital; vc1 21:02 Drug: Zofran (Ondansetron) 4 mg Route: IVP; Site: right antecubital; vc1 21:02 Drug: NS 0.9% 1000 ml Route: IV; Rate: 1000 ml; Site: right antecubital; vc1 22:08 Drug: Potassium Effervescent Tablet 50 mEq Route: PO; vc1 22:08 Drug: Ketorolac 30 mg Route: IVP; Site: right antecubital; vc1 22:20 Drug: Flexeril (cyclobenzaprine) 10 mg Route: PO; vc1 22:20 Drug: Decadron (dexamethasone) 10 mg Route: IM; Site: right deltoid; vc1 Medication: 02/11 00:38 VIS not applicable for this client. vc1 Outcome: 00:07 Discharge ordered by . mh7 00:37 Discharged to home ambulatory. vc1 00:37 Condition: good 00:37 Discharge instructions given to patient, Instructed on discharge instructions, follow up and referral plans. medication usage, Demonstrated understanding of instructions, follow-up care, medications, Prescriptions given X 3. 00:38 Patient left the ED. vc1 Signatures: Aileen Adam Irene, RN RN Gee Bolivar 4 Mely Rodriguez5 Jeff Philip MD MD 7 Ruth Mcneil 5 Lucina Kiran RN RN vc1
[2022-02-11 02:40] VITALS: O2SAT 100
[2022-02-11 02:47] VITALS: TEMP 98.4
[2022-02-11 02:49] VITALS: BP 103/76
== END 2022-02-11 00:38 | disposition home or self-care (01) ==
LOC: ER 17:26
DX: M54.50 Low back pain, unspecified (principal); M54.2 Cervicalgia; Z20.822 Contact with and (suspected) exposure to COVID-19; Z88.5 Allergy status to narcotic agent; Z88.6 Allergy status to analgesic agent
CPT/HCPCS: 36415; 80048; 80076; 81003; 81015; 81025; 83735; 85025; 96372; 96374; 96375; 99284; J1100; J2405; J7030; U0003

== ENCOUNTER 2022-02-12 18:59 | Emergency (ER) | payer SELFPAY ==
[2022-02-12 19:42] LABS: Absolute Lymphocytes (CBC) 3.9 K/uL (0.7-4.9); Lymphocytes % 35.3 % (15.3-44.8); MCV 85.1 fL (80-100); MPV 8.3 fL (7.6-11.3); RBC Red Blood Cell Count 4.35 M/uL (3.86-4.86)
[2022-02-12] MEDS ORDERED: ONDANSETRON 4 MG/2 ML VIAL ONE ×2 (19:42→22:01)
[2022-02-12] MEDS ORDERED: MORPHINE 4 MG/ML SYR ONE (19:42)
[2022-02-12 20:01] LABS: Bilirubin Total 0.5 mg/dL (0.2-1.0); Protein, Total 8.1 g/dL (6.4-8.2)
[2022-02-12 20:02] LABS: Potassium 2.9 mmol/L (3.5-5.1)
--- NOTE | 2022-02-12 20:21 | RAD REPORT ---
EXAM DESCRIPTION: CTAbdomen Pelvis W Contrast - 02/12/2022 7:59 pm CLINICAL HISTORY: abd pain COMPARISON: <Comparisons> TECHNIQUE: CT of the abdomen and pelvis was performed. All CT scans are performed using dose optimization technique as appropriate and may include automated exposure control or mA/KV adjustment according to patient size. FINDINGS: Lower chest: No acute abnormality. Liver: No acute abnormality or suspicious lesions. Biliary: Cholecystectomy Stomach: No significant focal abnormality. Duodenum: No significant focal abnormality. Pancreas: No significant abnormality. Spleen: No significant abnormality. Adrenal: No suspicious lesions. Kidney/ureter: No hydronephrosis. No renal calculi. Retroperitoneum: No retroperitoneal adenopathy. Vascular: No aneurysm. Bowel: The wall of the ascending and transverse colon is modestly thickened. Moderate formed stool is noted. Peritoneum: No ascites or free air. Bladder: Grossly unremarkable. Reproductive: No adnexal masses. Bones: No acute fracture. Other: n/a IMPRESSION: Mild wall thickening of the ascending and transverse colon could reflect a mild colitis. No other acute process identified.
[2022-02-12] MEDS ORDERED: POTASSIUM CL SA 10 MEQ TAB PO ONE (20:23)
--- NOTE | 2022-02-12 21:38 | ER ---
Nurse's Notes [facility] Name: Trudi Villavicencio Age: 46 yrs Sex: Female : 1975 Arrival Date: 02/12/2022 Time: 19:00 Bed 5 Private MD: Diagnosis: Hypokalemia;Colitis Presentation: 02/12 19:00 Chief complaint: Patient states: ABD PAIN AND BLOATING X 5-6 DAYS. Coronavirus screen: [facility] Vaccine status: Patient reports receiving the 2nd dose of the covid vaccine. Ebola Screen: Patient negative for fever greater than or equal to 101.5 degrees Fahrenheit, and additional compatible Ebola Virus Disease symptoms Patient denies exposure to infectious person. Patient denies travel to an Ebola-affected area in the 21 days before illness onset. Initial Sepsis Screen: Does the patient meet any 2 criteria? RR > 20 per min. Does the patient have a suspected source of infection? No. Patient's initial sepsis screen is negative. Risk Assessment: Do you want to hurt yourself or someone else? Patient reports no desire to harm self or others. Onset of symptoms was February 07, 2022. 19:00 Method Of Arrival: EMS: [facility] 19:00 Acuity: HOWIE 3 6 Triage Assessment: 19:02 General: Appears uncomfortable, Behavior is calm, cooperative. Pain: Complains of pain [facility] in abdomen diffusely Pain currently is 7 out of 10 on a pain scale. Quality of pain is described as crampy, Pain began gradually, OVER THE LAST 5 DAY. 19:04 GI: Abd is soft X 4 quads. 6 Historical: - Allergies: 19:04 Aspirin; jh6 19:04 Codeine; jh6 19:04 tramadol; jh6 - PMHx: 19:04 gastritis; neuropathy; osteoarthritis; Radiculopathy; jh6 - Immunization history:: Client reports receiving the 2nd dose of the Covid vaccine. - Social history:: Smoking status: Patient denies any tobacco usage or history of. Screenin:04 Abuse screen: Denies threats or abuse. Denies injuries from another. Nutritional 6 screening: No deficits noted. Tuberculosis screening: No symptoms or risk factors identified. Fall Risk None identified. Assessment: 19:15 General: Appears in no apparent distress. uncomfortable, Behavior is calm, cooperative, jb4 appropriate for age, Pt reports being able to take morephine. Pain: Complains of pain in abdomen Pain does not radiate. Pain currently is 8 out of 10 on a pain scale. Neuro: Level of Consciousness is awake, alert, obeys commands, Oriented to person, place, time, situation. Cardiovascular: Patient's skin is warm and dry. Respiratory: Airway is patent Respiratory effort is even, unlabored, Respiratory pattern is regular, symmetrical. GI: Derm: Skin is intact, Skin is pink, warm \T\ dry. Musculoskeletal: Circulation, motion, and sensation intact. Range of motion: intact in all extremities. 20:04 Reassessment: Patient appears in no apparent distress at this time. Patient and/or jb4 family updated on plan of care and expected duration. Pain level reassessed. Patient is alert, oriented x 3, equal unlabored respirations, skin warm/dry/pink. 21:41 Reassessment: Patient appears in no apparent distress at this time. Patient and/or jb4 family updated on plan of care and expected duration. Pain level reassessed. Patient is alert, oriented x 3, equal unlabored respirations, skin warm/dry/pink. Vital Signs: 19:00 BP 132 / 79; Pulse 91; Resp 18; Temp 98.0(O); Pulse Ox 98% ; Weight 112.04 kg; Height 5 6 ft. 3 in. (160.02 cm); Pain 8/10; 20:06 BP 122 / 69; Pulse 76; Resp 16; Pulse Ox 98% on R/A; jb4 21:41 BP 120 / 71; Pulse 86; Resp 16; Pulse Ox 95% on R/A; jb4 19:00 Body Mass Index 43.75 (112.04 kg, 160.02 cm) [facility] ED Course: 19:00 Patient arrived in ED. [facility] 19:02 Triage completed. [facility] 19:02 Lia Montenegro [facility]C [facility] kb 19:03 Tod Blandon MD is Attending Physician. kb 19:04 Arm band placed on right wrist. 6 19:05 Bed in low position. Call light in reach. Side rails up X 1. [facility] 19:05 No provider procedures requiring assistance completed. [facility] 19:19 Initial lab(s) drawn, by me, sent to lab. Inserted saline lock: 20 gauge in right jb4 antecubital area, using aseptic technique. Blood collected. 19:40 Sterling Gerard, RN is Primary Nurse. jb4 20:01 CT Abd/Pelvis - IV Contrast Only In Process Unspecified. EDMS 22:04 IV discontinued, intact, bleeding controlled, No redness/swelling at site. Pressure jb4 dressing applied. Administered Medications: 19:33 Drug: Zofran (Ondansetron) 4 mg Route: IVP; Site: right antecubital; jb4 21:41 Follow up: Response: No adverse reaction; Marked relief of symptoms jb4 19:36 Drug: morphine 4 mg Route: IVP; Infused Over: 4 mins; Site: right antecubital; jb4 21:40 Follow up: Response: No adverse reaction jb4 20:18 Drug: Potassium Chloride 40 mEq Route: PO; lp1 21:40 Follow up: Response: No adverse reaction jb4 21:50 Drug: Cipro (ciprofloxacin) 500 mg Route: PO; jb4 22:03 Follow up: Response: Medication administered at discharge. jb4 21:50 Drug: Flagyl (metroNIDAZOLE) 500 mg Route: PO; jb4 22:03 Follow up: Response: Medication administered at discharge. jb4 21:57 Drug: Zofran (Ondansetron) 4 mg Route: IVP; Site: right antecubital; jb4 22:04 Follow up: Response: Medication administered at discharge. jb4 Medication: 19:15 VIS not applicable for this client. jb4 Outcome: 21:38 Discharge ordered by . kb 22:04 Discharged to home with family. jb4 22:04 Condition: stable 22:04 Discharge instructions given to patient, Instructed on discharge instructions, follow up and referral plans. medication usage, Demonstrated understanding of instructions, follow-up care, medications, Prescriptions given X 2. 22:04 Patient left the ED. jb4 Signatures: Dispatcher [employer] EDMS Lia Montenegro, EVARISTO COKER-Diamante Garvin RN RN lp1 Sterling Gerard, RN RN jb4 Carla Pagan RN RN jh6 Corrections: (The following items were deleted from the chart) 22:04 21:41 IV discontinued, intact, bleeding controlled, No redness/swelling at site. jb4 Pressure dressing applied, jb4 22:04 21:41 Pulse 86bpm; Resp 16bpm; Pulse Ox 95% RA; jb4 jb4
--- NOTE | 2022-02-12 21:38 | EDPHYS ---
Physician Documentation [facility] Name: Trudi Villavicencio Age: 46 yrs Sex: Female : 1975 Arrival Date: 02/12/2022 Time: 19:00 Bed 5 Private MD: ED Physician Tod Blandon HPI: 02/12 21:35 This 46 yrs old Female presents to ER via EMS with complaints of Abdominal pain, kb constipation.. 21:35 The patient presents with abdominal pain that is diffuse. Onset: The symptoms/episode kb began/occurred yesterday. The symptoms do not radiate. Associated signs and symptoms: Pertinent positives: constipation, Pertinent negatives: nausea, vomiting, and diarrhea. The symptoms are described as constant. Modifying factors: The symptoms are alleviated by nothing, the symptoms are aggravated by nothing. Severity of pain: At its worst the pain was moderate in the emergency department the pain is unchanged. The patient has not experienced similar symptoms in the past. The patient has been recently seen by a physician:. Patient reports abdominal pain that is diffuse and constipation.. Historical: - Allergies: 19:04 Aspirin; 6 19:04 Codeine; 6 19:04 tramadol; jh6 - PMHx: 19:04 gastritis; neuropathy; osteoarthritis; Radiculopathy; jh6 - Immunization history:: Client reports receiving the 2nd dose of the Covid vaccine. - Social history:: Smoking status: Patient denies any tobacco usage or history of. ROS: 21:35 Constitutional: Negative for fever, chills, and weight loss. kb 21:35 Abdomen/GI: Positive for abdominal pain, constipation. 21:35 All other systems are negative. Exam: 21:35 Constitutional: This is a well developed, well nourished patient who is awake, alert, kb and in no acute distress. Head/Face: Normocephalic, atraumatic. ENT: Moist Mucous membranes Cardiovascular: Regular rate and rhythm with a normal S1 and S2. No gallops, murmurs, or rubs. No pulse deficits. Respiratory: Respirations even and unlabored. No increased work of breathing. Talking in full sentences Skin: Warm, dry with normal turgor. Normal color. MS/ Extremity: Pulses equal, no cyanosis. Neurovascular intact. Full, normal range of motion. Neuro: Awake and alert, GCS 15, oriented to person, place, time, and situation. Moves all extremities. Normal gait. Psych: Awake, alert, with orientation to person, place and time. Behavior, mood, and affect are within normal limits. 21:35 Abdomen/GI: Inspection: abdomen appears normal, Bowel sounds: normal, Palpation: soft, in all quadrants, moderate abdominal tenderness, in all quadrants. Vital Signs: 19:00 BP 132 / 79; Pulse 91; Resp 18; Temp 98.0(O); Pulse Ox 98% ; Weight 112.04 kg; Height 5 jh6 ft. 3 in. (160.02 cm); Pain 8/10; 20:06 BP 122 / 69; Pulse 76; Resp 16; Pulse Ox 98% on R/A; jb4 21:41 BP 120 / 71; Pulse 86; Resp 16; Pulse Ox 95% on R/A; jb4 19:00 Body Mass Index 43.75 (112.04 kg, 160.02 cm) 6 MDM: 19:03 Patient medically screened. kb 21:35 Data reviewed: vital signs, nurses notes. Data interpreted: Pulse oximetry: on room air kb is 98 %. Interpretation: normal. Counseling: I had a detailed discussion with the patient and/or guardian regarding: the historical points, exam findings, and any diagnostic results supporting the discharge/admit diagnosis, lab results, radiology results, the need for outpatient follow up, a family practitioner, to return to the emergency department if symptoms worsen or persist or if there are any questions or concerns that arise at home. 02/12 19:14 Order name: CBC with Diff; Complete Time: 19:48 kb 02/12 19:14 Order name: CMP; Complete Time: 20:08 kb 02/12 19:14 Order name: Lipase; Complete Time: 20:08 kb 02/12 19:14 Order name: CT Abd/Pelvis - IV Contrast Only; Complete Time: 20:22 kb 02/12 19:14 Order name: IV Saline Lock; Complete Time: 19:25 kb 02/12 19:14 Order name: Labs collected and sent; Complete Time: 19:25 kb Administered Medications: 19:33 Drug: Zofran (Ondansetron) 4 mg Route: IVP; Site: right antecubital; jb4 21:41 Follow up: Response: No adverse reaction; Marked relief of symptoms jb4 19:36 Drug: morphine 4 mg Route: IVP; Infused Over: 4 mins; Site: right antecubital; jb4 21:40 Follow up: Response: No adverse reaction jb4 20:18 Drug: Potassium Chloride 40 mEq Route: PO; lp1 21:40 Follow up: Response: No adverse reaction jb4 21:50 Drug: Cipro (ciprofloxacin) 500 mg Route: PO; jb4 22:03 Follow up: Response: Medication administered at discharge. jb4 21:50 Drug: Flagyl (metroNIDAZOLE) 500 mg Route: PO; jb4 22:03 Follow up: Response: Medication administered at discharge. jb4 21:57 Drug: Zofran (Ondansetron) 4 mg Route: IVP; Site: right antecubital; jb4 22:04 Follow up: Response: Medication administered at discharge. jb4 Disposition Summary: 02/12/22 21:38 Discharge Ordered Location: Home kb Condition: Stable kb Diagnosis - Hypokalemia kb - Colitis kb Followup: kb - With: Emergency Department - When: As needed - Reason: Worsening of condition Followup: kb - With: Private Physician - When: 2 - 3 days - Reason: Recheck today's complaints, Continuance of care, Re-evaluation by your physician Discharge Instructions: - Discharge Summary Sheet kb - Hypokalemia kb - Colitis kb Forms: - Medication Reconciliation Form kb - Thank You Letter kb - Antibiotic Education kb - Prescription Opioid Use kb Prescriptions: - Cipro 500 mg Oral Tablet - take 1 tablet by ORAL route every 12 hours for 10 days; 20 tablet; Refills: 0, kb Product Selection Permitted - Flagyl 500 mg Oral Tablet - take 1 tablet by ORAL route every 8 hours for 10 days; 30 tablet; Refills: 0, kb Product Selection Permitted Signatures: Dispatcher [employer] Lia Woodson, EVARISTO COKER-Diamante Garvin RN RN lp1 Sterling Gerard RN RN jb4 Carla Pagan RN RN jh6
[2022-02-12] MEDS ORDERED: metroNIDAZOLE 500 MG TABLET ONE (21:56)
[2022-02-12] MEDS ORDERED: CIPROFLOXACIN HCL 500 MG TAB ONE (21:56)
[2022-02-12 22:38] VITALS: TEMP 98
[2022-02-12 22:45] VITALS: BP 120/71; O2SAT 95
== END 2022-02-12 22:04 | disposition home or self-care (01) ==
LOC: ER 18:59
DX: K52.9 Noninfective gastroenteritis and colitis, unspecified (principal); E87.6 Hypokalemia; K59.00 Constipation, unspecified; Z88.5 Allergy status to narcotic agent; Z88.6 Allergy status to analgesic agent
CPT/HCPCS: 36415; 74177; 80053; 83690; 85025; 96374; 96375; 99284; J2405; Q9967

== ENCOUNTER 2022-02-17 17:32 | Emergency (ER) | payer SELFPAY ==
--- OUTSIDE RECORDS SUMMARY | 2022-02-17 17:37 | XMS REPORT | Continuity of Care Document ---
:1975 Author Organization [facility] t Address [address] [place] [address] Care Team Providers Name Role Phone Asked, No Pcp Primary Care Physician Unavailable Danie Garcia Attending Clinician Unavailable ESTER PERES Attending Clinician Unavailable CAT PRITCHETT Attending Clinician Unavailable Cat Pritchett DO Attending Clinician ALFONZO ALARCON Attending Clinician Unavailable Marina PERALTA, Tony Hdz Attending Clinician Alfonzo Alarcon MD Attending Clinician [phone] ROYCE PRUETT Attending Clinician Unavailable Ester Peres MD Attending Clinician MG WOOD Attending Clinician Unavailable EDEMEKONG, PETER Attending Clinician Unavailable THANIA OLSON Attending Clinician Unavailable EMELYN PHILLIPS Attending Clinician Unavailable OSCAR LUGO Attending Clinician Unavailable BROOKE FAUST Attending Clinician Unavailable RAJI JEAN BAPTISTE DPM Attending Clinician Unavailable Palomo Cervantes Attending Clinician Doctor Unassigned, [place] Attending Clinician Unavailable ESTER PERES Admitting Clinician Unavailable Payers Payer Name Policy Type Policy Number Effective Date Expiration Date S ai [employer] [place] - [id number] 2020 00:00:00 OUT OF STATE BCBS 2 [id number] 2021 00:00:00 Problems Condition Condition Condition Status [...] f medial medial 00:00: g of this [place] meniscus meniscus 00 note Medica l of left of left might be Branch knee as knee as different current current from the injury, injury, original. initial initial Added encounter encounter automatic ally from request for surgery [id number] Secondary Secondary Disease Active Overview: Univers oligomenor oligomenor 4-08 Formattin ity of pete pete 00:00: g of this [place] 00 note Medical might be Branch different from the original. 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 07-16 04:01:02 l (disorder) (disorder) 00:00: He rmann Active 00 07/16/1976 Problem 02/28/2020 reports reaction from ASPIRIN [...] U T pain pain Physici ans Asthma Asthma Problem Active 2021-04-29 Lev trupti (disorder) (disorder) 21:40:08 l Active [place] Problem 04/29/2021 [facility] Gastritis Gastritis Problem Active 2021-04-29 Memoria (disorder) (disorder) 21:40:08 l Active [place] [facility] Problem Active 2021-04-29 M emoria ve Hypertensi 21:40:08 l disorder, ve [place] systemic disorder, arterial systemic (disorder) arterial (disorder) Active Problem 04/29/2021 [facility] Hypothyroi Hypothyro Problem Active 2021-04-29 Memoria dism idism 21:40:08 l (disorder) (disorder) He rmann Active Problem [facility]/29/2021 [facility] Migraine Migraine Problem Active 2021-04-29 Memoria (disorder) (disorder) 21:40:08 l Active [place] Problem 04/29/2021 [facility] Morbid Morbid Problem Active 2021-04-29 Lev trupti obesity obesity 21:40:08 l (disorder) (disorder) He rmann Active Problem 04/29/2021 [facility] Thiamin Thiamin Problem Active 2021-04-29 Me moria deficiency deficiency 21:40:08 l (disorder) (disorder) He rmann Active Problem [facility]/29/2021 [facility] Hemangioma Hemangiom Problem Active 2021-04-29 Memoria of a of 21:40:08 l intracrani intracrani Vladimir barbara al al structure structure (disorder) (disorder) Active Problem 04/29/2021 [facility] Ankle pain Ankle Problem Active 2021-04-29 M emoria (finding) pain 21:40:08 l (finding) [place] Active Problem 04/29/2021 [facility] Paresthesi Paresthes Problem Active 2021-04-29 Memoria a ia 21:40:08 l (finding) (finding) Herm mckenna Active Problem 04/29/2021 [facility] Lumbar Lumbar Problem Active 2021-04-29 Lev trupti radiculopa radiculopa 21:40:08 l thy thy [place] (disorder) (disorder) Active Problem 04/29/2021 [facility] Peripheral Periphera Problem Active 2021-04-29 Memoria nerve l nerve 21:40:08 l disease disease [place] (disorder) (disorder) Active Problem 04/29/2021 [facility] Acid Acid Problem Active 2020-02-28 Memor ia reflux reflux 04:01:02 l (finding) (finding) Juany mckenna Active Problem 02/28/2020 [facility] Allergy - Allergy Problem Active 2020-02-28 Memoria specialty - 04:01:02 l (qualifier specialty Her paulino value) (qualifier value) Active Problem 02/28/2020 [facility] Fracture Fracture Problem Active 2020-02-28 Memoria of [place] 04:01:02 l (disorder) (disorder) He rmann Active Problem 02/28/2020 [facility] Neuropathy Neuropath Problem Active 2020-02-28 Memoria (disorder) y 04:01:02 l (disorder) Burak marta Active Problem 02/28/2020 [facility] Fibromyalg Fibromyalg Disease Active U nivers ia ia ity of [facility] Disc Disc Disease Active Univers disease, disease, ity of degenerati degenerati [place] ve, lumbar ve, lumbar Me dical or or Branch lumbosacra lumbosacra l l Cervical Cervical Disease Active Unive rs herniated herniated ity of disc disc [facility] Lumbar Lumbar Disease Active Univers herniated herniated ity of disc disc [facility] History of Past Illness Condition Condition Condition Status Onset Resolution Last Treating Co mments Source Name Details Category Date Date Treatment Clinician Date Nondisplac Nondispla Problem 2020-02-28 2020-02-28 Memoria ed dome day dome 02-25 04:01:02 04:01:02 l fracture fracture 17:00: Burak n of left of left 00 [place], initial initial encounter encounter for closed for closed fracture fracture 02/26/2020 0 [facility] Allergies, Adverse Reactions, Alerts Allergy Allergy Status Severity Reaction(s) Onset Inactive Treating Comm ents Source Name Type Date Date Clinician Fd&C Propensi Active Nausea and Agueda ey Yellow ty to Vomiting 03-31 Seybold #10 adverse 00:00: Aluminum reaction 00 [place]-Top s iramate Topirama Propensi Active Nausea and Other Ke lsey te ty to Vomiting - reaction( Seybo ld adverse 00:00: s): reaction 00 Unknown s Aspirin Propensi Active Other - See Yung [...] Univers INGREDI 09-06 ity of 00:00: [place] [facility] TOPIRAMA DRUG Active N/V Univers TE INGREDI 09-06 ity of 00:00: [place] [facility] Topirama Propensi Active Other (See Other Me [...] codeine codeine Active Memoria sulfate sulfate l [place] aspirin aspirin Active Memoria l [place] Topamax Topamax Active Memoria l [place] traMADol traMADol Active Memori a l [place] aspirin Allergy Active [facility] to drug Physici (finding ans ) codeine Allergy Active [facility] to drug Physici (finding ans ) Family History Family Member Diagnosis Comments Start Date Stop Date Source Natural father [facility] Natural father Heart attack [facility] Maternal aunt [facility] Maternal grandmother Diabetes [facility] Maternal grandmother Stroke [facility] Natural mother Heart attack [facility] Natural mother Heart disease [facility] Social History Social Habit Start Date Stop Date Quantity Comments Source Exposure to Not sure Rosi armendariz SARS-CoV-2 (event) Tobacco use and 2021-05-19 2021-05-19 Smokeless tobacco Me [facility]od[facility] exposure 00:00:00 00:00:00 non-user Hospital Alcohol intake 2021-05-19 2021-05-19 [facility]dr[facility] (finding) Sex [facility]igned At [birth year] [facility] Smoking Status Start Date Stop Date Source Never smoker [facility] Medications Ordered Filled Start Stop Current [...] vac qv 2020-07 Yes Flublok Meth jason 2018,07-[address] up,rc,PF, 10:53: Hos helga (Flublok 59 (PF) 180 l Quad mcg ([id number], mcg x PF,) 180 4)/0.5 mL mcg [...] 1 Ke lsey ydroCHLOROt 0-14 tablet by y bold hiazide 09:58: mouth 80-12.5 MG 32 [...] 32 on daily Suspension Cyclobenzap 2020-07 Yes [id number] 10mg Take 1 Rosi rine HCl 10 [...] day, # 10 tab, 1 Refill(s), Pharmacy: [id number], For Migraine. May repeat dose after 2 hours. Max dose 200 mg/ 24 hours, 152.4, cm, 03/16/21 8:31:00 CDT, Height, 112.727, kg, 03/16/21 8... ubrogepant Yes 100 mg = 1 M ethodi (Ubrelvy) 9-10 tab, PO, st 100 mg 00:00: PRN, PRN Hospita tablet 00 Other -See l Comment, X 30 day, # 10 tab, 1 Refill(s), Pharmacy: [id number], For Migraine. May repeat dose after 2 hours. Max dose 200 mg/ 24 hours, 152.4, cm, 03/16/21 8:31:00 CDT, Height, 112.727, kg, 03/16/21 8... ubrogepant No 100 mg = 1 M emoria 100 MG Oral 9-03 tab, PO, l Tablet 16:30: PRN, PRN [place] [Ubrelvy] 00 Other -See Comment, X 30 day, # 10 tab, 1 Refill(s), Pharmacy: [facility], For Migraine. May repeat dose after 2 hours. Max dose 200 mg/ 24 hours, 152.4, cm, 03/16/21 8:31:00 CDT, Height, 112.727, kg, 03/16/21 8:... amitriptyli 0 Yes = 1 tab, Me moria ne 75 mg 9 PO, l oral tablet 23:57: Bedtime, # [place] 00 30 ea, 5 Refill(s), Pharmacy: [facility], 152.4, cm, 03/16/21 [...] day, # 10 tab, 1 Refill(s), Pharmacy: [facility], For Migraine. May repeat dose after 2 hours. Max dose 200 mg/ 24 hours, 152.4, cm, 02/01/21 13:49:00 CDT, Height, 116.818, kg, 02/01/21 1... ibuprofen 2020-0 Yes Methodi (ADVIL) 600 8-04 st MG tablet 00:00: Hospita 00 l Ibuprofen 2020-0 Yes Rosi 600 MG oral 8-04 Seybold Tablet 00:00: 00 methylPREDN 2020-0 Yes [id number] 84mg Take 21 Univers ISolone 7-30 tablets by ity of (MEDROL, 00:00: mouth [place] GENARO,) 4 mg 00 SEE-INSTRU Med ical tablets CTIONS. Branch follow package directions methylPREDN 2020-0 Yes [id number] 84mg Take 21 Univers ISolone 7-30 tablets by ity of (MEDROL, 00:00: mouth [place] GENARO,) 4 mg 00 SEE-INSTRU Med ical tablets CTIONS. Branch follow package directions methylPREDN 1-0 Yes [id number] 84mg Take 21 Univers ISolone 7-30 tablets by ity of (MEDROL, 00:00: mouth [place] GENARO,) 4 mg 00 SEE-INSTRU Med ical tablets CTIONS. Branch follow package directions medroxyPROG 1-0 Yes [id number] 20mg Take 2 Univers ESTERone 5-13 tablets by ity o f (PROVERA) 00:00: mouth [place] 10 mg 00 daily. Medical tablet Branch medroxyPROG 2021-0 Yes [id number] 20mg Take 2 Univers ESTERone 5-13 tablets by ity o f (PROVERA) 00:00: mouth [place] 10 mg 00 daily. Medical tablet Branch medroxyPROG 2020-0 Yes [id number] 20mg Take 2 Univers ESTERone 5-13 tablets [...] headache, # 9 tab, 1 Refill(s), Pharmacy: [facility], 160.02, cm, 09/24/20 13:34:00 [employer], Height, 113.636, kg, 09/24/20 13:34:00 [employer], Weight Rizatriptan 0 Yes rizatripta Rosi Benzoate 5 3-12 n 5 mg Seybold MG oral 00:00: tablet Tablet 00 TAKE 1 TABLET BY MOUTH ONCE DAILY NEEDED FOR HEADACHE MIGRAINE rizatriptan Yes 5 mg = 1 Me moria 5 MG Oral 9-15 tab, PO, l Tablet 22:44: ONCE, PRN Burak n [Maxalt] for migraine headache, # 9 tab, 1 Refill(s), Pharmacy: [facility], 152.4, cm, 01/15/20 15:04:00 CDT, Height, 115.455, kg, 01/15/20 15:04:00 CDT, Weight Misc 0 No 900 mL, Memoria Medication 02-25 Soln-IV, l 15:27: IV, Once, first dose 02/26/20 10:27:00 CDT, stop date 02/26/20 10:27:00 CDT LR 1,000 mL No 1,000 mL, M emoria 02-25 IV, [...] emoria 8-13 0.5 mL, l 15:20: Injection, [place] 00 IV Push, Once PRN for shivers, first dose 02/26/20 10:20:00 CDT Albuterol 2020-0 No 2.5 mg = 3 Me moria 0.83 MG/ML 8-13 mL, Soln, l Inhalant 15:20: NEB, Once Herm mckenna Solution 00 PRN for wheezing, first dose 02/26/20 10:20:00 CDT Ondansetron 2020-0 No 4 mg = 2 Me moria 8-13 mL, l 15:20: Injection, [place] 00 IV Push, q15min PRN for nausea, order duration: 2 doses, first dose 02/26/20 10:20:00 CDT, stop date Limited # of times Promethazin 2020-0 No 12.5 mg = Raeann emoria e 8-13 0.5 mL, l 15:20: Injection, [place] 00 IM, Once PRN for vomiting, first dose 02/26/20 10:20:00 CDT fentaNYL 2020-0 No 25 mcg = Memor ia 8-13 0.5 mL, l 14:50: Injection, [place] 00 IV, Once, first dose 02/26/20 9:50:00 CDT, stop date 02/26/20 9:50:00 CDT fentaNYL 2020-0 No 25 mcg = Memor ia 8-13 0.5 mL, l 14:16: Injection, [place] 00 IV, Once, first dose 02/26/20 9:16:00 CDT, stop date 02/26/20 9:16:00 CDT Misc 2020-0 No 1,000 mL, Memoria Medication 8-13 Soln-IV, l 13:23: IV, Once, 00 first dose 02/26/20 8:23:00 CDT, stop date 02/26/20 8:23:00 CDT ceFAZolin 2020-0 No 2 gm, Memoria 8-13 Soln-IV, l 12:53: IV [place] 00 Piggyback, Once, first dose 02/26/20 7:53:00 CDT, stop date 02/26/20 7:53:00 CDT ondansetron 2020-0 No 4 mg = 2 Me moria 8-13 mL, l 12:53: Injection, [place] 00 IV, Once, first dose 02/26/20 7:53:00 CDT, stop date 02/26/20 7:53:00 CDT dexamethaso 2020-0 No 8 mg = 2 Me moria ne 8-13 mL, l 12:53: Injection, [place] IV, Once, first dose 02/26/20 7:53:00 CDT, [...] ia 8-13 20 mL, l 12:41: Emulsion, [place] IV, Once, first dose 02/26/20 7:41:00 CDT, stop date 02/26/20 7:41:00 CDT fentaNYL 2020-0 No 50 mcg = 1 Mem oria 8-13 mL, l 12:35: Injection, [place] 00 IV, Once, first dose 02/26/20 7:35:00 [...] 02-25 Injection, l IV Start 11:28: Subcutaneo [facility] 00 , Once PRN for other (see [...] mg 8-05 tabs, l oral 17:04: Oral, [place] delayed 00 Daily, 0 release Refill(s), tablet GERD meloxicam 2020-0 Yes 7.5 mg = 1 Me moria 7.5 MG Oral 8-05 tabs, l Tablet 17:04: Oral, [place] 00 Daily, 0 Refill(s), joint pain pantoprazol 2020-0 Yes pantoprazo Method[facility] e 8-[address] (PROTONIX) 00:00: tablet,del H ospita 40 MG EC 00 ayed l tablet release TAKE 1 TABLET BY MOUTH ONCE DAILY amitriptyli 2020-0 Yes = 1 tab, Me moria ne 75 mg 7-02 PO, l oral tablet 20:24: Bedtime, # [place] 00 30 ea, 5 Refill(s), Pharmacy: [facility], 152.4, cm, 01/15/20 15:04:00 CDT, Height, 115.455, kg, 01/15/20 15:04:00 CDT, Weight rizatriptan 2020-0 Yes 5 mg = 1 Me moria 5 MG Oral 7-02 tab, PO, l Tablet 20:24: ONCE, PRN Burak n [Maxalt] 00 for migraine headache, # 9 tab, 1 Refill(s), Pharmacy: [facility], 152.4, cm, 01/15/20 15:04:00 CDT, Height, 115.455, kg, 01/15/20 15:04:00 CDT, Weight rizatriptan 2020-0 Yes 5 mg = 1 Me moria 5 MG Oral 5-19 tab, PO, l Tablet 21:06: ONCE, PRN Burak n [Maxalt] 00 for migraine headache, # 9 tab, 1 Refill(s), Pharmacy: [facility] amitriptyli 2020-0 Yes = 1 tab, Me moria ne 75 mg 5-19 PO, l oral tablet 21:06: Bedtime, # [place] 00 30 ea, 1 Refill(s), Pharmacy: [facility] loratadine Yes loratadine M ethodi (CLARITIN) 9-[address] 10 mg 00:00: tablet Hospita tablet 00 TAKE 1 l TABLET BY MOUTH ONCE DAILY sod Yes [id number] 1{bottl Use 1 Unive rs chlor-bicar 9-08 e} Bottle in ity of b-squeez 00:00: each [place] bottle 00 nostril 2 Medical (NEILMED (two) Branch SINUS RINSE times COMPLETE) daily. Use pkdv in hot shower 1 hour before bedtime loratadine Yes [id number] 10mg Take 1 U nivers 10 mg 9-08 tablet by ity of tablet 00:00: mouth [place] 00 daily. Medical Branch sod Yes [id number] 1{bottl Use 1 Unive rs chlor-bicar 9-08 e} Bottle in ity of b-squeez 00:00: each [place] bottle 00 nostril 2 Medical (NEILMED (two) Branch SINUS RINSE times COMPLETE) daily. Use pkdv in hot shower 1 hour before bedtime loratadine Yes [id number] 10mg Take 1 U nivers 10 mg 9-08 tablet by ity of tablet 00:00: mouth [place] 00 daily. Medical Branch sod Yes [id number] 1{bottl Use 1 Unive rs chlor-bicar 9-08 e} Bottle in ity of b-squeez 00:00: each [place] bottle 00 nostril 2 Medical (NEILMED (two) Branch SINUS RINSE times COMPLETE) daily. Use pkdv in hot shower 1 hour before bedtime loratadine Yes [id number] 10mg Take 1 U nivers 10 mg 9-08 tablet by ity of tablet 00:00: mouth [place] 00 daily. Medical Branch amitriptyli Yes 75 mg = 1 M emoria ne 75 mg 8-22 tab, PO, l oral tablet 18:27: Bedtime, # [place] 00 30 tab, 1 Refill(s), Pharmacy: [facility] rizatriptan Yes 5 mg = 1 Me moria 5 MG Oral 8-02 tab, PO, l Tablet 20:24: ONCE, PRN Burak n [Maxalt] 09 for migraine headache, # 9 tab, 1 Refill(s), Pharmacy: [facility] thiamine Yes 100 mg = 1 Mem oria 100 mg oral 8-02 tab, PO, l tablet 20:23: Daily, X [place] 17 30 day, # 30 tab, 3 Refill(s), Pharmacy: [facility] cyanocobala Yes 1,000 Memor ia min 1000 8-02 microgram l mcg 20:23: = 1 tab, [place] sublingual 13 SL, Daily, tablet # 30 tab, 2 Refill(s), Pharmacy: [facility] amitriptyli Yes 50 mg = 1 M emoria ne 50 mg 8-02 tab, PO, l oral tablet 20:23: Bedtime, # [place] 09 30 tab, 1 Refill(s), Pharmacy: [facility] rizatriptan Yes rizatripta Methodi (MAXALT) 5 8-02 [...] day, # 6 tab, 1 Refill(s), Pharmacy: [facility] amitriptyli No 50 mg = 1 M emoria ne 50 mg 7-13 tab, PO, l oral tablet 01:53: Bedtime, # [place] 00 30 tab, 1 Refill(s), Pharmacy: [facility] frovatripta No 2.5 mg = 1 Memoria n 2.5 mg 6-27 tab, PO, l oral tablet 15:37: Daily, PRN [place] 00 for migraine headache, May repeat another dose at least 2 hours after the first dose, X 3 day, # 9 tab, 2 Refill(s), Pharmacy: [facility] eletriptan No See Memoria 40 MG Oral 6-25 Instructio l Tablet 23:35: ns, PO, [place] [Relpax] 00 Take 1-2 tabs orally at onset of migraine, may repeat dose once in 2 hours, X 3 day, # 6 tab, 1 Refill(s), Pharmacy: [facility] amitriptyli Yes 25 mg = 1 M emoria ne 25 mg 6-11 tab, PO, l oral tablet 21:16: Bedtime, # [place] 00 30 tab, 3 Refill(s), Pharmacy: [facility] cyanocobala Yes 1,000 Memor ia min 1000 6-07 microgram l mcg 19:39: = 1 tab, [place] sublingual 00 SL, Daily, tablet # 30 tab, 2 Refill(s), Pharmacy: [facility] thiamine Yes 100 mg = 1 Mem oria 100 mg oral 5-17 tab, PO, l tablet 18:13: Daily, X [place] 00 30 day, # 30 tab, 3 Refill(s), Pharmacy: [facility] amitriptyli Yes 10 mg = 1 M emoria ne 10 mg 5-10 tab, PO, l oral tablet 20:44: Bedtime, # [place] 00 30 tab, 3 Refill(s), Pharmacy: [facility] gabapentin Yes 300 [...] day Ho spita 00 l bisoprolol Yes [id number] 10mg Take 1 U nivers 10 mg 1-11 tablet by ity of tablet 00:00: mouth [place] 00 daily. Medical Branch cyclobenzap Yes [id number] 10mg Take 1 Univers rine 10 mg 1-11 tablet by ity of tablet 00:00: mouth at [place] 00 bedtime. Medical Branch bisoprolol Yes [id number] 10mg Take 1 U nivers 10 mg 1-11 tablet by ity of tablet 00:00: mouth [place] 00 daily. Medical Branch cyclobenzap Yes [id number] 10mg Take 1 Univers rine 10 mg 1-11 tablet by ity of tablet 00:00: mouth at [place] 00 bedtime. Medical Branch bisoprolol Yes [id number] 10mg Take 1 U nivers 10 mg 1-11 tablet by ity of tablet 00:00: mouth [place] 00 daily. Medical Branch cyclobenzap Yes [id number] 10mg Take 1 Univers rine 10 mg [...] ion nasal spray spray,susp ension [facility]y of mcg/actuati 00:00: [place] on nasal 00 Medical spray Branch fluticasone Yes Univer s 50 9-02 ity of mcg/actuati 00:00: [place] on nasal 00 Medical spray Branch [facility]asone [facility] ity of mcg/actuati 00:00: [place] on nasal 00 Medical spray Branch Levothyroxi Levothyroxi Yes M.D. U T ne Sodium ne Sodium Physi ci TABS TABS ans Meloxicam Meloxicam Yes M.D. [place] TABS TABS Physici ans Amitriptyli Amitriptyli Yes M.D. U T ne HCl TABS ne HCl TABS P hysici ans Immunizations Ordered Filled Immunization Date Status Comments [facility] e Immunization Name Name Covid-19 Vaccine 2021-03-31 Completed Rosi esposito (Moderna), 00:00:00 Mrna-lnp, [place] [employer], Pf, 100 Mcg/0.5ml,IM Covid-19 Vaccine 2021-03-02 Completed Rosi esposito (Moderna), 00:00:00 Mrna-lnp, [place] Protein, Pf, 100 Mcg/0.5ml,IM Influenza Virus 2016-07-24 Completed Rosi solano Vaccine, No 00:00:00 Preserv, age 6 months and up Tdap- (Boostrix, 2016-07-24 Completed Rosi esposito Adacel) 00:00:00 TDAP 2016-07-24 Completed [facility] 00:00:00 [facility] Influenza Virus 2016-07-24 Completed Universit y of Vaccine Quad IM 3+ 00:00:00 [facility] TDAP 2016-07-24 Completed [facility] 00:00:00 [facility] Influenza Virus 2016-07-24 Completed Universit y of Vaccine Quad IM 3+ 00:00:00 [facility] TDAP 2016-07-24 Completed [facility] 00:00:00 [facility] Influenza Virus 2016-07-24 Completed Universit y of Vaccine Quad IM 3+ 00:00:00 [facility] Tdap- (Boostrix, 2010-01-18 Completed Rosi S eybold Adacel) 00:00:00 Vital Signs Vital Name Observation Time Observation Value Comments Source Systolic blood 2021-10-10 20:19:00 141 mm[Hg] Univer sity of pressure [facility] Diastolic blood 2021-10-10 20:19:00 98 mm[Hg] Unive rsity of pressure [facility] Heart rate 2021-10-10 20:19:00 109 /min Universi ty [facility] Body temperature 2021-10-10 20:19:00 36.94 Sole Univ ersity of [facility] Respiratory rate 2021-10-10 20:19:00 18 /[facility] Body height 2021-10-10 20:19:00 160 cm [facility] Body weight 2021-10-10 20:19:00 115.667 kg [facility] BMI 2021-10-10 20:19:00 45.17 kg/m2 [facility] Oxygen saturation in 2021-10-10 20:19:00 97 /min [facility] Arterial blood by [facility] Pulse oximetry Branch [facility] 2021-04-28 14:43:00 45.91 kg/m2 Rosi S eybold Systolic blood 2021-04-28 14:43:00 100 mm[Hg] Rosi ybold pressure Diastolic blood 2021-04-28 14:43:00 60 mm[Hg] Kelse y Seybold pressure Heart rate 2021-04-28 14:43:00 112 /min Rosi S nelliebold Body temperature 2021-04-28 14:43:00 37 Sole Agueda ey Seybold Respiratory rate 2021-04-28 14:43:00 16 /min Agueda ey Seybold Body height 2021-04-28 14:43:00 157.5 cm Rosi S eybold Body weight 2021-04-28 14:43:00 113.853 kg Rosi S eybold Systolic blood 2021-02-11 13:34:00 127 mm[Hg] Univer sity of [facility] Diastolic blood 2021-02-11 13:34:00 87 mm[Hg] Unive rsity of pressure [facility] Heart rate 2021-02-11 13:34:00 100 /min [facility] Body height 2021-02-11 13:34:00 160 cm [facility] Body weight 2021-02-11 13:34:00 115.667 kg [facility] BMI 2021-02-11 13:34:00 45.17 kg/m2 [facility] Systolic (mm Hg) 2021-03-16 13:19:00 Lev rial [place] Diastolic (mm Hg) 2021-03-16 13:19:00 Mem orial [place] Heart Rate 2021-03-16 13:19:00 [facility] [place] Respitory Rate 2021-03-16 13:19:00 Memori al [place] Height 2021-03-16 13:19:00 152.4 cm [facility] [place] Weight 2021-03-16 13:19:00 [facility] [place] BMI Calculated 2021-03-16 13:19:00 Memori al [place] Systolic (mm Hg) 2021-02-01 18:35:00 Lev rial [place] Diastolic (mm Hg) 2021-02-01 18:35:00 Mem orial [place] Heart Rate 2021-02-01 18:35:00 [facility] [place] Respitory Rate 2021-02-01 18:35:00 Memori al [place] Height 2021-02-01 18:35:00 152.4 cm [facility] [place] Weight 2021-02-01 18:35:00 [facility] [place] BMI Calculated 2021-02-01 18:35:00 Memori al [place] Systolic (mm Hg) 2020-09-24 19:34:00 [facility] [place] Diastolic (mm Hg) 2020-09-24 19:34:00 [facility] [place] Heart Rate 2020-09-24 19:34:00 [facility] [place] Respitory Rate 2020-09-24 19:34:00 [facility] [place] Height 2020-09-24 19:34:00 160.02 cm [facility] [place] Weight 2020-09-24 19:34:00 [facility] [place] BMI Calculated 2020-09-24 19:34:00 [facility] [place] Respitory Rate 2020-02-26 16:32:00 [facility] [place] Systolic (mm Hg) 2020-02-26 16:32:00 [facility] [place] Diastolic (mm Hg) 2020-02-26 16:32:00 [facility] [place] Heart Rate 2020-02-26 16:00:00 [facility] [place] Respitory Rate 2020-02-26 16:00:00 [facility] [place] Systolic (mm Hg) 2020-02-26 16:00:00 [facility] [place] Diastolic (mm Hg) 2020-02-26 16:00:00 [facility] [place] Heart Rate 2020-02-26 15:50:00 [facility] [place] Respitory Rate 2020-02-26 15:50:00 [facility] [place] Systolic (mm Hg) 2020-02-26 15:50:00 [facility] [place] Diastolic (mm Hg) 2020-02-26 15:50:00 [facility] [place] Heart Rate 2020-02-26 15:40:00 [facility] [place] Temperature Oral (F) 2020-02-26 15:20:00 37.0 Sole [facility] [place] Temperature Oral (F) 2020-02-26 11:25:00 37.2 Sole [facility] [place] Height 2020-02-26 11:25:00 158 cm [facility] [place] Height 2020-02-18 16:59:00 158 cm [facility] [...] Systolic (mm Hg) 2020-01-15 20:04:00 [facility] [place] Diastolic (mm Hg) 2020-01-15 20:04:00 [facility] [place] Heart Rate 2020-01-15 20:04:00 [facility] [place] Respitory Rate 2020-01-15 20:04:00 [facility] [place] Height 2020-01-15 20:04:00 152.4 cm [facility] [place] Weight 2020-01-15 20:04:00 [facility] [place] BMI Calculated 2020-01-15 20:04:00 [facility] [place] Systolic (mm Hg) 2019-12-02 20:40:00 [facility] [place] Diastolic (mm Hg) 2019-12-02 20:40:00 [facility] [place] Heart Rate 2019-12-02 20:40:00 [facility] [place] Respitory Rate 2019-12-02 20:40:00 [facility] [place] Height 2019-12-02 20:40:00 152.4 cm [facility] Weight 2019-12-02 20:40:00 [facility] [place] BMI Calculated 2019-12-02 20:40:00 [facility] [place] Weight 2019-02-14 19:40:00 [facility] [place] BMI Calculated 2019-02-14 19:40:00 [facility] [place] Height 2019-02-14 19:40:00 160.02 cm [facility] [place] Respitory Rate 2019-02-14 19:40:00 [facility] [place] Heart Rate 2019-02-14 19:40:00 [facility] [place] Systolic (mm Hg) 2019-02-14 19:40:00 [facility] [place] Diastolic (mm Hg) 2019-02-14 19:40:00 [facility] [place] BMI Calculated 2018-12-24 20:38:00 [facility] [place] Weight 2018-12-24 20:38:00 [facility] [place] Height 2018-12-24 20:38:00 157.48 cm [facility] Systolic (mm Hg) 2018-12-24 20:38:00 [facility] [place] Diastolic (mm Hg) 2018-12-24 20:38:00 [facility] [place] Respitory Rate 2018-12-24 20:38:00 [facility] [place] Heart Rate 2018-12-24 20:38:00 [facility] [place] Height 2018-12-20 19:20:00 152.4 cm [facility] [place] BMI Calculated 2018-12-20 19:20:00 [facility] [place] Weight 2018-12-20 19:20:00 [facility] [place] Systolic (mm Hg) 2018-12-20 19:20:00 [facility] [place] Diastolic (mm Hg) 2018-12-20 19:20:00 [facility] [place] Heart Rate 2018-12-20 19:20:00 [facility] [place] Respitory Rate 2018-12-20 19:20:00 Carissa al [place] Systolic (mm Hg) 2018-11-22 19:23:00 [facility] [place] Diastolic (mm Hg) 2018-11-22 19:23:00 [facility] orial [place] Respitory Rate 2018-11-22 19:23:00 Carissa Redman Height 2018-11-22 19:23:00 157.48 cm [facility] [place] Weight 2018-11-22 19:23:00 [facility] [place] BMI Calculated 2018-11-22 19:23:00 Carissa oconnell [place] Heart Rate 2018-11-22 19:23:00 [facility] Procedure Date / Time Performing Clinician Source Performed CONSENT/REFUSAL FOR 2021-10-10 20:09:22 Doctor Unassigned, [facility] DIAGNOSIS AND TREATMENT [facility] MRI SPINE EXTERNAL STUDY 2021-04-29 16:16:04 [facility] MR Ankle wo contrast [id number] 2020-07-02 00:00:00 [facility] [[facility]MD] US Lower Extremity 2020-05-31 00:00:00 [facility] Venous Doppler Bilateral Post Op Promis 29 Survey 2020-03-12 00:00:00 [facility] APPLICATION SHORT LEG 2020-02-26 13:13[facility]00 [facility] SPLINT-CALF TO FOOT 14563 (Left)<sup>1</sup> ARTHROSCOPY ANKLE 2020-02-26 13:13:00 [facility] H ermann 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 18966 (Left)<sup>2</sup> OPEN REDUCTION INTERNAL 2020-02-26 13:13:00 [facility] [place] FIXATION TALUS FRACTURE 59439 (Left)<sup>3</sup> [L] 2019 Novel Coronavirus 2020-02-05 00:00:00 [facility] (COVID-19), MARK [[facility]] Ortho - Surgery 2020-02-02 00:00:00 [facility] Scheduling History of Breast [facility] reduction History of Carpal tunnel [facility] surgery Cholecystectomy [facility] Breast reduction, [facility] nn bilateral Bunionectomy [facility] Carpal tunnel syndrome of [facility] anish [place] right wrist Plantar fasciitis of left [facility] al [place] foot Plan of Care Planned Activity Planned Date Details Comments Source Future Scheduled 2021-08-16 [facility] Test 19:56:30 screening (procedure) [code = 438729760] Future Scheduled 2021-08-16 [facility] for [facility] Test 19:56:30 malignant neoplasm of cervix (procedure) [code = 032719917] Future Scheduled 2021-08-16 INFLUENZA VACCINE Method ist [...] Clinicians Facility Department ID 2021-08-10 Outpatient Garcia, [facility] [id number] Common 13:49:13 Avnee [address]9485 [facility] 2021-08-10 Outpatient Garcia, [facility] [id number] Common 13:47:59 Avnee 56632 [facility] 2021-08-10 Outpatient Garcia, [facility] [id number] Common 13:43:00 Avnee 99563 [facility] 2021-08-10 Outpatient Garcia, [facility] [id number] Common 13:37:06 Avnee 63366 [facility] 2021-08-10 Outpatient Garcia, [facility] [id number] Common 13:23:50 Avnee 03798 [facility] 2021-08-10 Outpatient Garcia, [facility] [id number] Common 13:22:32 Avnee 35294 [facility] 2021-08-10 Outpatient Garcia, [facility] [id number] Common 13:09:55 Avnee 18805 [facility] 2021-05-15 [facility] JOSE [id number] Univers 06:58:12 ESTER [facility] 2021-10-10 2021-10-10 Emergency [facility] [id number] Univers 15:21:00 15:42:00 CAT [facility] 2021-10-10 2021-10-10 Emergency [facility] [id number] Univers 15:21:00 15:42:00 Cat DUMONT 350.1.13.10 crow [facility] 4.2.7.2.686 [facility] [id number] [address] 2021-10-10 2021-10-10 Outpatient ROSI ALARCON [id number] Rosi 00:00:00 00:00:00 ALFONZO Sebradenol marcello 2021-09-09 2021-09-09 Outpatient ROSI ALARCON [id number] Rosi 00:00:00 00:00:00 ALFONZO Seybol marcello 2021-08-26 2021-08-26 Outpatient ROSI ALARCON [id number] Rosi 00:00:00 00:00:00 ALFONZO Seybol marcello 2021-07-05 2021-07-05 Outpatient ROSI ALARCON [id number] Rosi 00:00:00 00:00:00 ALFONZO Enriquezybol marcello 2021-07-05 2021-07-05 Outpatient ROSI ALARCON [id number] Rosi 00:00:00 00:00:00 ALFONZO Seybol marcello 2021-06-02 2021-06-02 Outpatient ROSI ALARCON [id number] Rosi 00:00:00 00:00:00 ALFONZO Seybol d 2021-05-23 2021-05-23 Documentat Marina 1.2.840.1 [id number] Deangelo 00:00:00 00:00:[address] 3.430.2.7 Hospit a .3.538454 l .8 2021-05-18 2021-05-18 [facility] 1.2.840.1 [id number] Methodi 12:57:38 23:59:[id number] 3.430.2.7 Hospit a .3.871049 l .8 2021-05-18 2021-05-18 Office MargaritaisaiLaurence.2.840.1 [id number] Methodi 12:19:03 15:18:57 Visit Tony ChavezJonathon 74105.1.[address] 3.430.2.7 Hospit a .3.782556 l .8 2021-05-18 2021-05-18 Outpatient [facility] [id number] [place] 00:00:00 00:00:[address] 2021-05-18 2021-05-18 Orders Laurence Gray.2.840.1 [id number] Methodi 00:00:00 00:00:00 Only Tony ChavezJonathon 10967.1.[address] 3.430.2.7 Hospit a .3.069274 l .8 2021-05-16 2021-05-16 Outpatient ROSI ALARCON [id number] Rosi 00:00:00 00:00:00 ALFONZO armendariz 2021-05-11 2021-05-11 Outpatient ROSI ALARCON [id number] Rosi 00:00:00 00:00:00 ALFONZO armendariz 2021-05-11 2021-05-11 Outpatient ROSI ALARCON [id number] Rosi 00:00:00 00:00:00 ALFONZO armendariz 2021-04-28 2021-04-28 Office Jered Alarcon 1.2.840.114 [id number] Rosi 09:39:43 10:09:43 Visit Alfonzo Montenegro 350.1.13.13 Se russ Orantes 1.2.7.2.686 [id number] 2021-04-27 2021-04-27 Ambulatory nullFlavo MNA [id number] Memoria 15:15:00 15:15:00 Pre-Reg r Neurology 13 l [facility] 2021-04-21 2021-04-21 ambulatory STLMLC STLMLC [id number] Common 00:00:00 00:00:00 [facility] 2021-04-12 2021-04-12 Outpatient STLMLC STLMLC [id number] Common 00:00:00 00:00:00 [facility] 2021-04-06 2021-04-06 ambulatory STLMLC STLMLC [id number] Common 00:00:00 00:00:00 [facility] 2021-03-31 2021-03-31 Outpatient STLMLC STLMLC [id number] Common 00:00:00 00:00:00 [facility] 2021-03-30 2021-03-30 Outpatient STLMLC STLMLC [id number] Common 00:00:00 00:00:00 [facility] 2021-03-30 2021-03-30 Outpatient STLMLC STLMLC [id number] Common 00:00:00 00:00:00 [facility] 2021-03-28 2021-03-28 Outpatient Scott [facility] [id number] Univers 10:30:00 10:30:00 [id number] [facility] 2021-03-28 2021-03-28 Outpatient Scott [facility] [id number] Univers 10:30:00 10:30:00 [facility] 2021-03-16 2021-03-17 Outpatient nullFlavo MNA [id number] Memoria 13:15:00 04:59:59 r Neurology 12 l [facility] 2021-03-17 2021-03-17 Outpatient STLMLC STLMLC [id number] Common 00:00:00 00:00:00 [facility] 2021-02-23 2021-02-23 Outpatient STLMLC STLMLC [id number] Common 00:00:00 00:00:00 [facility] 2021-02-21 2021-02-21 Outpatient STLMLC STLMLC [id number] Common 00:00:00 00:00:00 [facility] 2021-02-16 2021-02-16 Outpatient STLMLC STLMLC [id number] Common 00:00:00 00:00:00 [facility] 2021-02-15 2021-02-15 Outpatient STLMLC STLMLC [id number] Common 00:00:00 00:00:00 [facility] 2021-02-11 2021-02-11 [facility] [id number] Univers 08:15:00 08:56:02 ESTER [facility] 2021-02-11 2021-02-11 [facility] [id number] Univers 08:13:08 08:56:02 Visit Ester [facility] 350.1.13.10 [facility] SURGICAL 4.2.7.2.686 [place] as SPECIALTI [id number] Pr dical ES 198 [facility] 2021-02-11 2021-02-11 Outpatient [facility] [id number] Univers 08:15:00 08:15:00 ESTER [id number] [facility] 2021-02-10 2021-02-10 [facility] [id number] Univers 13:00:00 13:00:00 MG [id number] [facility] 2021-02-10 2021-02-10 [facility] [id number] Univers 13:00:00 13:00:00 MG [facility] 2021-02-03 2021-02-03 [facility] [id number] Univers 10:30:00 10:30:00 MG [id number] [facility] 2021-02-03 2021-02-03 Out[facility] [id number] Univers 10:30:00 10:30:00 MG [facility] 2021-02-01 2021-02-02 Outpatient nullFlavo MNA [id number] Memoria 18:30:00 04:59:59 r Neurology 11 l [facility] 2021-01-20 2021-01-20 Outpatient STLMLC STLMLC [id number] Common 00:00:00 00:00:00 [facility] 2021-01-14 2021-01-14 Outpatient STLMLC STLMLC [id number] Common 00:00:00 00:00:00 [facility] 2020-12-23 2020-12-23 Outpatient R ALANNAH [facility] [id number] Univers 10:00:00 10:00:00 DEMETRIA [facility] 2020-12-23 2020-12-23 Outpatient Scott OLSON [facility] [id number] Univers 09:00:00 09:00:00 WONDIFUL [id number] ity o f [facility] 2020-12-23 2020-12-23 Outpatient Scott WESLEY [facility] [id number] Univers 09:00:00 09:00:00 WONDIFUL ity o f [facility] 2020-12-16 2020-12-16 [facility] [id number] Univers 10:30:00 10:30:00 MG [id number] [facility] 2020-12-16 2020-12-16 Outpatient Scott WOOD [facility] [id number] Univers 10:30:00 10:30:00 MG [facility] 2020-12-15 2020-12-15 Outpatient STLMLC STLMLC [id number] Common 00:00:00 00:00:00 [facility] 2020-12-15 2020-12-15 Outpatient STLMLC STLMLC [id number] Common 00:00:00 00:00:00 [facility] 2020-12-06 2020-12-06 Outpatient Scott WOOD [facility] [id number] Univers 15:30:00 15:30:00 MG [id number] [facility] 2020-12-06 2020-12-06 Outpatient Scott WOOD [facility] [id number] Univers 15:30:00 15:30:00 MG [facility] 2020-11-25 2020-11-25 Outpatient ROYCE PRUETT [facility] [id number] Univers 09:00:00 09:00:00 [id number] [facility] 2020-11-25 2020-11-25 Outpatient ROYCE DELEON [facility] [id number] Univers 09:00:00 09:00:00 ity [facility] 2020-11-11 2020-11-11 Outpatient ROYCE DELEON [facility] [id number] Univers 15:30:00 15:30:00 [id number] [facility] 2020-11-11 2020-11-11 Outpatient Scott PRUETT ROYCE [facility] [id number] Univers 15:30:00 15:30:00 [facility] 2020-11-04 2020-11-04 Outpatient Scott PHILLIPS [facility] [id number] Univers 10:00:00 10:00:00 EMELYN [id number] [facility] 2020-11-04 2020-11-04 Outpatient Scott PHILLIPS [facility] [id number] Univers 10:00:00 10:00:00 EMELYN [facility] 2020-10-28 2020-10-28 Outpatient Scott WOOD [facility] [id number] Univers 10:45:00 10:45:00 MG [id number] [facility] 2020-10-28 2020-10-28 Outpatient Scott WOOD [facility] [id number] Univers 10:45:00 10:45:00 MG [facility] 2020-10-25 2020-10-25 Outpatient Scott WOOD [facility] [id number] Univers 14:45:00 14:45:00 MG [id number] [facility] 2020-10-25 2020-10-25 Outpatient Scott WOOD [facility] [id number] Univers 14:45:00 14:45:00 MG [facility] 2020-10-15 2020-10-15 Outpatient Scott WOOD [facility] [id number] Univers 10:00:00 10:00:00 MG [id number] [facility] 2020-10-15 2020-10-15 Outpatient Scott WOOD [facility] [id number] Univers 10:00:00 10:00:00 MG [facility] 2020-10-08 2020-10-08 Outpatient R [facility] [id number] Univers 09:30:00 09:30:00 [id number] [facility] 2020-10-08 2020-10-08 Outpatient R JA [facility] [id number] Univers 09:30:00 09:30:00 [facility] 2020-10-08 2020-10-08 Outpatient R BRITTNEY [facility] [id number] Univers 09:15:00 09:15:00 OSCAR [facility] 2020-09-24 2020-09-25 Outpatient nullFlavo MNA [id number] Memoria 19:00:00 05:59:59 r Neurology 10 l [facility] 2020-09-24 2020-09-24 Outpatient R NINA [facility] [id number] Univers 09:45:00 09:45:00 MG [id number] [facility] 2020-09-24 2020-09-24 [facility] [id number] Univers 09:45:00 09:45:00 MG [facility] 2020-09-21 2020-09-21 Outpatient R JA [facility] [id number] Univers 14:00:00 14:00:00 ESTER [id number] [facility] 2020-09-21 2020-09-21 Outpatient R JA [facility] [id number] Univers 00:00:00 00:00:00 ESTER [facility] 2020-09-09 2020-09-09 Outpatient JA [facility] [id number] Univers 09:15:00 09:15:00 ESTER [id number] [facility] 2020-09-09 2020-09-09 [facility] [id number] Univers 09:15:00 09:15:00 [facility] 2020-09-06 2020-09-06 Ambulatory nullFlavo MNA [id number] Memoria 16:30:00 16:30:00 Pre-Reg r Neurology 09 l Nik Segovia 2020-07-14 2020-07-14 Outpatient R [facility] [id number] Univers 19:00:00 19:00:00 [id number] ity of [facility] 2020-07-14 2020-07-14 Outpatient R CHRISTIANNE, [facility] [id number] Univers 19:00:00 19:00:00 BROOKE serrano [facility] 2020-07-02 2020-07-02 [facility] [id number] [place] 14:30:00 14:30:00 t; RAJI JEAN BAPTISTE, - Sugar Phys ici RAJI, DPM [place] 2 ans DPM 2020-06-01 2020-06-01 Ambulatory nullFlavo [facility] [id number] Memoria 20:00:00 20:00:00 Pre-Reg r Neurology 08 l Nik Segovia 2020-05-31 2020-05-31 [facility] [id number] [place] 10:00:00 10:00:00 t; RAJI JEAN BAPTISTE, - Sugar Phys ici RAJI, DPM [place] 2 ans DPM 2020-05-10 2020-05-10 [facility] [place] JEAN BAPT[facility]E [facility] Orthopedics [id number] [place] 09:00:00 09:00:00 t; RAJI JEAN BAPTISTE, - Sugar Phys ici RAJI, DPM [place] 2 ans DPM 2020-04-27 2020-04-27 Steven JEAN BAPTISTE [facility] Orthopedics [id number] [place] 14:45:00 14:45:00 t; RAJI JEAN BAPTISTE, - Sugar Phys ici RAJI, DPM [place] 2 ans DPM 2020-03-29 2020-03-29 Steven JEAN BAPTISTE [facility] Orthopedics [id number] [place] 13:00:00 13:00:00 t; RAJI JEAN BAPTISTE, - Sugar Phys ici RAJI, DPM [place] 2 ans DPM 2020-03-08 2020-03-08 Steven JEAN BAPTISTE [facility] Orthopedics [id number] [place] 11:15:00 11:15:00 t; RAJI JEAN BAPTISTE, - Sugar Phys ici RAJI, DPM [place] 2 ans DPM 2020-02-26 2020-02-26 Outpatient nullFlavo [facility] [id number] Memoria 10:46:09 16:30:00 r Luca [facility] 2020-02-26 2020-02-26 Appointmen MARKEL [facility] Orthopedics [id number] [place] 10:30:00 10:30:00 t; RAJI JEAN BAPTISTE, - Sugar Phys ici RAJI, DPM [place] 2 ans DPM 2020-02-02 2020-02-02 Appointmen MARKELNEAL GOMEZ Orthopedics [id number] [place] 10:45:00 10:45:00 t; RAJI JEAN BAPTISTE, - Sugar Phys ici RAJI, DPM [place] 2 ans DPM 2020-01-15 2020-01-16 Outpatient nullFlavo MNA [id number] Memoria 20:00:00 04:59:59 r Neurology 07 l [facility] 2020-01-15 2020-01-15 Ambulatory nullFlavo MNA [id number] Memoria 20:00:00 20:00:00 Pre-Reg r Neurology 06 l [facility] 2019-12-02 2019-12-03 Outpatient nullFlavo MNA [id number] Memoria 20:30:00 04:59:59 r Neurology 05 l [facility] 2019-05-23 2019-05-23 Ambulatory nullFlavo MNA [id number] Memoria 19:15:00 19:15:00 Pre-Reg r Neurology 04 l [facility] 2019-03-23 2019-03-23 Emergency Harish, [facility] [id number] 12:37:57 13:11:00 Palomo Dumont 350.1.13.10 [place] 4.2.7.2.686 [place] [id number] 2019-03-23 2019-03-23 Orders Doctor DUEÑAS 1.2.840.114 [id number] 00:00:00 00:00:00 Only Unassigned, MARIA ELENA 350.1.13.10 [place] [facility] 4.2.7.2.686 [id number] 2019-02-14 2019-02-15 Outpatient nullFlavo MNA [id number] Memoria 20:00:00 04:59:59 r Neurology 02 l [facility] 2018-12-24 2018-12-25 Outpatient nullFlavo MNA [id number] Memoria 20:15:00 04:59:59 [facility] 2018-12-20 2018-12-21 Outpatient nullFlavo MNA [id number] Memoria 18:45:00 04:59:59 [facility] 2018-11-22 2018-11-23 Outpatient nullFlavo MNA [id number] Memoria 19:45:00 04:59:59 r Neurology 00 l [facility] Results Test Description Test Time Test Comments Results Result Comments Source LABORATORY 2020-02-18 17:38:00 Test Item Value Reference Range Interpretation Comme nts Glucose Lvl (test code = Glucose Lvl) 89 70-99 [place] 530300-08-05 17:38:00 Test Item Value Reference Range Interpretation Comments BUN (test code = BUN) 12 7-22 [place] 530300-08-05 17:38:00 Test Item Value Reference Range Interpretation Comments Creatinine (test code = Creatinine) 0.79 0.50-1.40 [place] 530300-08-05 17:38:00 Test Item Value Reference Range Interpretation Comments Sodium Level (test code = Sodium Level) 141 135-145 [place] 530300-08-05 17:38:00 Test Item Value Reference Range Interpretation Comments Potassium Level (test code = Potassium 4.5 3.5-5.1 Level) [place] 530300-08-05 17:38:00 Test Item Value Reference Range Interpretation Comments Chloride Level (test code = Chloride 108 95-109 Level) [place] 530300-08-05 17:38:00 Test Item Value Reference Range Interpretation Comments Total Carbon Dioxide Level (test code = 24 24-32 Total Carbon Dioxide Level) [place] 530300-08-05 17:38:00 Test Item Value Reference Range Interpretation Comments AGAP (test code = AGAP) 13.5 10.0-20.0 [place] 530300-08-05 17:38:00 Test Item Value Reference Range Interpretation Comments Calcium Level (test code = Calcium 9.5 8.5-10.5 Level) [place] 530300-08-05 17:38:00 Test Item Value Reference Range Interpretation Comments eGFR (test code = eGFR) 92 [place] 530300-08-05 17:38:00 Test Item Value Reference Range Interpretation Comments Results (test code = Reported (02/18/20 12:38 Results) PM) [place] 530300-08-05 17:38:00 Test Item Value Reference Range Interpretation Comments White Blood Count (test code = White 6.4 3.7-10.4 Blood Count) [id number] 17:38:00 Test Item Value Reference Range Interpretation Comments Red Blood Cell Count (test code = Red 4.37 4.20-5.40 Blood Cell Count) [facility]enCmkvortVGWDXYUUPZ4361-85-72 17:38:00 Test Item Value Reference Range Interpretation Comments Hemoglobin (test code = Hemoglobin) 12.7 12.0-16.0 [facility]enNbtvfngCNUPMXIWNH4157-95-58 17:38:00 Test Item Value Reference Range Interpretation Comments Hematocrit (test code = Hematocrit) 38.3 36.0-48.0 [facility]enHigzcgvTKTMYMWNRW8256-53-91 17:38:00 Test Item Value Reference Range Interpretation Comments MCV (test code = MCV) 87.5 80.0-98.0 [facility]enSqaskqfBAVGZGVABQ3181-43-61 17:38:00 Test Item Value Reference Range Interpretation Comments MCH (test code = MCH) 29.2 pg 27.0-31.0 [facility]enKxfvdwzDPSHETYFCF6018-99-25 17:38:00 Test Item Value Reference Range Interpretation Comments MCHC (test code = MCHC) 33.3 32.0-36.0 [facility]lingenZhbxinaFTDNNVTRSO7183-22-08 17:38:00 Test Item Value Reference Range Interpretation Comments RDW (test code = RDW) 14.2 11.5-14.5 [facility]enUsgmkklMWDQLHCIEA5063-51-01 17:38:00 Test Item Value Reference Range Interpretation Comments Platelet (test code = Platelet) 300 133-450 [facility]lingenUmpugnxORNUVHMRTJ4847-45-55 17:38:00 Test Item Value Reference Range Interpretation Comments MPV (test code = MPV) 8.3 7.4-10.4 [facility]enGpjhulmISBEQGXULS5740-01-54 17:38:00 Test Item Value Reference Range Interpretation Comments NRBCs # (test code = NRBCs #) 0.1 0.4-2.2 [facility]enKzhfjyxYBXVRSHECY4232-76-37 17:38:00 Test Item Value Reference Range Interpretation Comments Results (test code = Reported (02/18/20 12:38 Results) PM) [facility]enCtjoomeYECJZNHUEF5019-10-95 17:38:00 Test Item Value Reference Range Interpretation Comments Neutrophil % (test code = Neutrophil %) 62.2 45.0-75.0 [facility] HarlingenGenvfcoUURWCKJKXX4667-68-52 17:38:00 Test Item Value Reference Range Interpretation Comments Monocyte % (test code = Monocyte %) 6.8 2.0-12.0 [id number] 17:38:00 Test Item Value Reference Range Interpretation Comments Lymphocyte % (test code = Lymphocyte %) 26.9 20.0-40.0 [facility] [id number] 17:38:00 Test Item Value Reference Range Interpretation Comments Eosinophil # (test code 3.6 See_Comment [Au tomated message] The = Eosinophil #) system which generated this result tra nsmitted reference range : <=4.0. The reference r karan was not used to int erpret this result as normal/abnormal . [id number] 17:38:00 Test Item Value Reference Range Interpretation Comments Basophil % (test code = 0.5 See_Comment [Au tomated message] The Basophil %) system which ge nerated this result tra nsmitted reference range : <=1.0. The reference r karan was not used to int erpret this result as normal/abnormal . [id number] 17:38:00 Test Item Value Reference Range Interpretation Comments Neutrophil # (test code = Neutrophil #) 4.0 1.5-8.1 [facility] [id number] 17:38:00 Test Item Value Reference Range Interpretation Comments Lymphocyte # (test code = Lymphocyte #) 1.7 1.0-5.5 [id number] 17:38:00 Test Item Value Reference Range Interpretation Comments Monocyte # (test code = 0.4 See_Comment [Au tomated message] The Monocyte #) system which ge nerated this result tra nsmitted reference range : <=0.8. The reference r karan was not used to int erpret this result as normal/abnormal . [id number] 17:38:00 Test Item Value Reference Range Interpretation Comments Eosinophil % (test code 0.2 See_Comment [Au tomated message] The = Eosinophil %) system which generated this result tra nsmitted reference range : <=0.5. The reference r karan was not used to int erpret this result as normal/abnormal . [id number] 17:38:00 Test Item Value Reference Range Interpretation Comments Results (test code = Reported (02/18/20 12:38 Results) PM) [facility]
[2022-02-17 20:29] LABS: Absolute Lymphocytes (CBC) 2.7 K/uL (0.7-4.9); Hematocrit 39.9 % (36.0-45.0); Lymphocytes % 26.6 % (15.3-44.8); MCV 84.9 fL (80-100); MPV 8.2 fL (7.6-11.3); RBC Red Blood Cell Count 4.69 M/uL (3.86-4.86)
[2022-02-17] MEDS ORDERED: FAMOTIDINE 20 MG/2 ML VIAL IV ONE (20:31)
[2022-02-17] MEDS ORDERED: MORPHINE 4 MG/ML SYR ONE (20:31)
[2022-02-17] MEDS ORDERED: ONDANSETRON 4 MG/2 ML VIAL ONE (20:31)
[2022-02-17] MEDS ORDERED: NA CHLORIDE 0.9% 1,000 ML ONE (20:31)
[2022-02-17 20:38] LABS: Urine Blood Negative (Negative); Urine Glucose Negative (Negative); Urine Protein Negative (Negative); Urine Specific Gravity >=1.030 (1.005-1.030); Urine pH 5.5 (5.0-7.0)
[2022-02-17 20:51] LABS: Albumin 4.1 g/dL (3.4-5.0); Bilirubin Total 0.8 mg/dL (0.2-1.0); Potassium 3.4 mmol/L (3.5-5.1); Protein, Total 8.2 g/dL (6.4-8.2)
--- NOTE | 2022-02-17 21:17 | RAD REPORT ---
EXAM DESCRIPTION: CT - Abdomen Pelvis W Contrast - 02/17/2022 9:02 pm CLINICAL HISTORY: Abdominal pain COMPARISON: January 2022 TECHNIQUE: Computed axial tomography of the abdomen pelvis was obtained. 100 cc Isovue-300 was admin istered intravenously. Oral contrast was not requested which limits evaluation of bowel and appendix All CT scans are performed using dose optimization technique as appropriate and may include automated exposure control or mA/KV adjustment according to patient size. FINDINGS: The liver, spleen, pancreas, adrenal and kidneys appear unremarkable. There is no evidence of diverticulitis. Colonic wall thickening normal. 18 millimeter right ovarian follicle. No significant free fluid IMPRESSION: No acute abnormality is displayed.
--- NOTE | 2022-02-17 22:33 | EDPHYS ---
Physician Documentation [facility] Name: Trudi Villavicencio Age: 46 yrs Sex: Female : 1975 Arrival Date: 02/17/2022 Time: 17:59 Bed 20 Private MD: ED Physician Jeff Philip HPI: 02/17 19:30 This 46 yrs old Female presents to ER via Ambulatory with complaints of Abdominal Pain, mh7 Nausea/Vomiting. 19:30 The patient presents to the emergency department with nausea, that is moderate, mh7 vomiting, that is intermittent, described as clear fluid, diarrhea, that is intermittent, abdominal pain, of the left upper quadrant, described as intermittent, vague,\E\ waxing and waning, and radiates to the left flank. 19:30 Onset: The symptoms/episode began/occurred 5 day(s) ago. Possible causes: diagnosed mh7 with colitis. The symptoms are aggravated by nothing. The symptoms are alleviated by nothing. Associated signs and symptoms: Pertinent negatives: belching, constipation, dysuria, fever, flatulence, GI bleeding, hematuria, vaginal discharge. Severity of symptoms: At their worst the symptoms were moderate 3 day(s) ago, in the emergency department the symptoms have improved mildly. The patient has been recently seen at the [facility] Emergency Department, this week. 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 - Social history:: Smoking status: Patient denies any tobacco usage or history of. ROS: 19:30 Constitutional: Negative for fever, chills, and weight loss, Eyes: Negative for injury, mh7 pain, redness, and discharge, ENT: Negative for injury, pain, and discharge, Neck: Negative for injury, pain, and swelling, Cardiovascular: Negative for chest pain, palpitations, and edema, Respiratory: Negative for shortness of breath, cough, wheezing, and pleuritic chest pain, : Negative for injury, bleeding, discharge, and swelling, MS/Extremity: Negative for injury and deformity, Skin: Negative for injury, rash, and discoloration, Neuro: Negative for headache, weakness, numbness, tingling, and seizure, Psych: Negative for depression, anxiety, suicide ideation, homicidal ideation, and hallucinations, Allergy/Immunology: Negative for hives, rash, and allergies, Endocrine: Negative for neck swelling, polydipsia, polyuria, polyphagia, and marked weight changes, Hematologic/Lymphatic: Negative for swollen nodes, abnormal bleeding, and unusual bruising. Exam: 19:30 Head/Face: Normocephalic, atraumatic. Eyes: Pupils equal round and reactive to light, mh7 extra-ocular motions intact. Lids and lashes normal. Conjunctiva and sclera are non-icteric and not injected. Cornea within normal limits. Periorbital areas with no swelling, redness, or edema. Neck: Trachea midline, no thyromegaly or masses palpated, and no cervical lymphadenopathy. Supple, full range of motion without nuchal rigidity, or vertebral point tenderness. No Meningismus. Chest/axilla: Normal chest wall appearance and motion. Nontender with no deformity. No lesions are appreciated. Cardiovascular: Regular rate and rhythm with a normal S1 and S2. No gallops, murmurs, or rubs. Normal PMI, no JVD. No pulse deficits. Respiratory: Lungs have equal breath sounds bilaterally, clear to auscultation and percussion. No rales, rhonchi or wheezes noted. No increased work of breathing, no retractions or nasal flaring. 19:30 Skin: Warm, dry with normal turgor. Normal color with no rashes, no lesions, and no evidence of cellulitis. MS/ Extremity: Pulses equal, no cyanosis. Neurovascular intact. Full, normal range of motion. Neuro: Awake and alert, GCS 15, oriented to person, place, time, and situation. Cranial nerves II-XII grossly intact. Motor strength 5/5 in all extremities. Sensory grossly intact. Cerebellar exam normal. Normal gait. Psych: Awake, alert, with orientation to person, place and time. Behavior, mood, and affect are within normal limits. 19:30 Constitutional: The patient appears in no acute distress, alert, awake, uncomfortable. 19:30 Abdomen/GI: Inspection: abdomen appears normal, Bowel sounds: normal, in all quadrants, Palpation: moderate abdominal tenderness, in the left upper quadrant, mass, is not appreciated, rebound tenderness, is not appreciated, voluntary guarding, is not appreciated, involuntary guarding, is not appreciated, no appreciated organomegaly, Indicators: McBurney's point is not tender, Hayward's sign is negative, Rovsing's sign is negative, Obturator sign is negative, Psoas sign is negative, Liver: no appreciated palpable abnormalities, Hernia: not appreciated. 19:30 Back: normal spinal alignment noted, CVA tenderness, that is mild, is noted on the left, vertebral tenderness, is not appreciated. Vital Signs: 18:11 BP 109 / 69; Pulse 94; Resp 18; Temp 98.6; Pulse Ox 100% ; Weight 113.4 kg; Height 5 ap3 ft. 3 in. (160.02 cm); 21:06 Pain 2/10; ke1 22:28 BP 120 / 73; Pulse 81; Resp 19; Pulse Ox 100% ; Pain 1/10; ke1 18:11 Body Mass Index 44.29 (113.40 kg, 160.02 cm) ap3 MDM: 22:30 Differential diagnosis: Nonspecific abd pain, gastritis, pancreatitis, diverticulitis, mh7 viral gastroenteritis, gastroenteritis. Data reviewed: vital signs, nurses notes, old medical records, lab test result(s), CBC, electrolytes, urinalysis, EKG, radiologic studies, CT scan. Data interpreted: Pulse oximetry: on room air is 100 %. Interpretation: normal. Counseling: I had a detailed discussion with the patient and/or guardian regarding: the historical points, exam findings, and any diagnostic results supporting the discharge/admit diagnosis, lab results, radiology results, the need for outpatient follow up, to return to the emergency department if symptoms worsen or persist or if there are any questions or concerns that arise at home. Response to treatment: the patient's symptoms have resolved after treatment, the patient's blood pressure is in an acceptable range, mental status has returned to baseline, the patient no longer shows bradycardia, the patient is not short of breath, the patient is not tachycardic, the patient's pain is gone, the patient's temperature has normalized, patient is well hydrated. Tolerating Po intake without difficulty. 22:33 Patient medically screened. [facility] 02/17 19:37 Order name: CBC with Diff; Complete Time: 20:52 [facility] 02/17 19:37 Order name: CMP; Complete Time: 20:52 [facility] 02/17 19:37 Order name: Lipase; Complete Time: 20:52 [facility] 02/17 19:37 Order name: CT Abd/Pelvis - IV Contrast Only; Complete Time: 21:23 [facility] 02/17 20:38 Order name: Urine Dipstick-Ancillary; Complete Time: 20:52 [facility] 02/17 19:37 Order name: IV Saline Lock; Complete Time: 20:20 [facility] 02/17 19:37 Order name: Labs collected and sent; Complete Time: 20:20 [facility] 02/17 19:37 Order name: Urine Dipstick-Ancillary (obtain specimen); Complete Time: 20:36 [facility] 02/17 19:37 Order name: EKG; Complete Time: 19:37 [facility] 02/17 19:37 Order name: Urine Test (obtain specimen); Complete Time: 20:36 [facility] 02/17 19:37 Order name: EKG - Nurse/Tech; Complete Time: 21:21 [facility] Administered Medications: 20:31 Drug: Pepcid (famotidine) 20 mg Route: IVP; Site: right antecubital; ke1 21:06 Follow up: Response: Marked relief of symptoms ke1 20:31 Drug: Zofran (Ondansetron) 4 mg Route: IVP; Site: right antecubital; ke1 21:06 Follow up: Response: Marked relief of symptoms ke1 20:31 Drug: morphine 4 mg Route: IVP; Infused Over: 4 mins; Site: right antecubital; ke1 21:06 Follow up: Pain 2/10 Adult; Response: Marked relief of symptoms ke1 20:32 Drug: NS 0.9% 1000 ml Route: IV; Rate: 1 bolus; Site: right antecubital; ke1 22:39 Follow up: IV Status: Completed infusion ke1 Disposition Summary: 02/17/22 22:33 Discharge Ordered Location: Home [facility] Problem: new [facility] Symptoms: have improved [facility] Condition: Stable [facility] Diagnosis - Upper abdominal pain, unspecified [facility] - Nausea with vomiting, unspecified 7 - Diarrhea, unspecified mh7 Followup: [facility] - With: Private Physician - When: 1 - 2 days - Reason: Worsening of condition, Recheck today's complaints, Continuance of care, Re-evaluation by your physician Discharge Instructions: - Discharge Summary Sheet [facility] - Nausea and Vomiting, Adult, [id number] [facility] - Abdominal Pain, Adult, [id number]-[id number] [facility] - Diarrhea, Adult, Ulzm-rc-Aske [facility] Forms: - Medication Reconciliation Form [facility] - Thank You Letter [facility] - Antibiotic Education [facility] - Prescription Opioid Use [facility] Prescriptions: - ondansetron 4 mg Oral tablet,disintegrating - place 1 tablet by TRANSLINGUAL route every 8 hours As needed; 12 tablet; 7 Refills: 0, Product Selection Permitted - Pepcid 20 mg Oral Tablet - take 1 tablet by ORAL route every 12 hours for 5 days; 10 tablet; Refills: 0, [facility] Product Selection Permitted - dicyclomine 20 mg Oral Tablet - take 1 tablet by ORAL route 4 times per day As needed; 20 tablet; Refills: 0, [facility] Product Selection Permitted Signatures: Dispatcher [employer] Michelle Arita RN RN ap3 Jeff Philip MD MD 7 Tia De Santiago RN RN ke1
--- NOTE | 2022-02-17 22:33 | ER ---
Nurse's Notes [facility] Name: Trudi Villavicencio Age: 46 yrs Sex: Female : 1975 Arrival Date: 02/17/2022 Time: 17:59 Bed 20 Private MD: Diagnosis: Upper abdominal pain, unspecified;Nausea with vomiting, unspecified;Diarrhea, unspecified Presentation: 02/17 18:11 Chief complaint: Patient states: she was evaluated here on Sunday, and still is having ap3 abdominal pain, NVD. patient states "i just dont feel good". Coronavirus screen: At this time, the client does not indicate any symptoms associated with coronavirus-19. Ebola Screen: No symptoms or risks identified at this time. Initial Sepsis Screen: Does the patient meet any 2 criteria? HR > 90 bpm. Does the patient have a suspected source of infection? No. Patient's initial sepsis screen is negative. Risk Assessment: Do you want to hurt yourself or someone else? Patient reports no desire to harm self or others. Onset of symptoms was February 12, 2022. 18:11 Method Of Arrival: Ambulatory ap3 18:11 Acuity: HOWIE 3 ap3 Triage Assessment: 18:13 General: Appears uncomfortable, Behavior is calm, cooperative. Pain: Complains of pain ap3 in abdomen Also complains of decreased appetite, nausea. Neuro: Level of Consciousness is awake, alert, obeys commands, Oriented to person, place, time, situation, Gait is steady, Speech is normal. Cardiovascular: Patient's skin is warm and dry. Respiratory: Airway is patent Respiratory effort is even, unlabored, Respiratory pattern is regular, symmetrical. GI: Reports lower abdominal pain, upper abdominal pain, diarrhea, nausea, vomiting. 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 - Social history:: Smoking status: Patient denies any tobacco usage or history of. Screenin:14 Abuse screen: Denies threats or abuse. Nutritional screening: Has had N/V for 3 or more ap3 days. Tuberculosis screening: No symptoms or risk factors identified. 20:15 Fall Risk None identified. ke1 Assessment: 20:15 GI: Bowel sounds present X 4 quads. Abd is soft Abdomen is tender to palpation X 4 ke1 quads. 20:37 Reassessment: CT called for green top and urine ready. ke1 21:19 Reassessment: Patient and/or family updated on plan of care and expected duration. Pain ke1 level reassessed. Patient is alert, oriented x 3, equal unlabored respirations, skin warm/dry/pink. Patient states feeling better. Patient states symptoms have improved. 22:29 Reassessment: No changes from previously documented assessment. ke1 Vital Signs: 18:11 BP 109 / 69; Pulse 94; Resp 18; Temp 98.6; Pulse Ox 100% ; Weight 113.4 kg; Height 5 ap3 ft. 3 in. (160.02 cm); 21:06 Pain 2/10; ke1 22:28 BP 120 / 73; Pulse 81; Resp 19; Pulse Ox 100% ; Pain 1/10; ke1 18:11 Body Mass Index 44.29 (113.40 kg, 160.02 cm) ap3 ED Course: 17:59 Patient arrived in ED. am2 18:13 Triage completed. ap3 18:14 Arm band placed on right wrist. ap3 19:11 Jeff Philip MD is Attending Physician. [facility] 19:17 Tia De Santiago, RN is Primary Nurse. ke1 20:15 Bed in low position. Call light in reach. Side rails up X 1. ke1 20:20 Inserted saline lock: 22 gauge in right antecubital area, using aseptic technique. ke1 21:03 CT Abd/Pelvis - IV Contrast Only In Process Unspecified. EDMS 22:39 No provider procedures requiring assistance completed. IV discontinued. ke1 Administered Medications: 20:31 Drug: Pepcid (famotidine) 20 mg Route: IVP; Site: right antecubital; ke1 21:06 Follow up: Response: Marked relief of symptoms ke1 20:31 Drug: Zofran (Ondansetron) 4 mg Route: IVP; Site: right antecubital; ke1 21:06 Follow up: Response: Marked relief of symptoms ke1 20:31 Drug: morphine 4 mg Route: IVP; Infused Over: 4 mins; Site: right antecubital; ke1 21:06 Follow up: Pain 2/10 Adult; Response: Marked relief of symptoms ke1 20:32 Drug: NS 0.9% 1000 ml Route: IV; Rate: 1 bolus; Site: right antecubital; ke1 22:39 Follow up: IV Status: Completed infusion ke1 Medication: 22:39 VIS not applicable for this client. ke1 Outcome: 22:33 Discharge ordered by . [facility] 22:39 Discharged to home ambulatory. ke1 22:39 Condition: good 22:39 Discharge instructions given to patient. 22:40 Patient left the ED. ke1 Signatures: Dispatcher [employer] EDMichelle Knowles Amanda, RN RN [email or web address] Jeff Philip MD MD [facility] Tia De Santiago RN RN ke1
[2022-02-18 01:15] VITALS: TEMP 98.6; O2SAT 100
[2022-02-18 01:28] VITALS: BP 120/73
--- NOTE | 2022-02-20 13:51 | EKG ---
Test Date: 2022-02-17 Test Time: 21:10:51 Histologic Technician: SALUD MEASUREMENT RESULTS: Intervals: Rate: 71 MA: 154 QRSD: 86 QT: 418 QTc: 454 Swoope: P: -3 MA: 154 QRS: 22 T: -2 INTERPRETIVE STATEMENTS: Normal sinus rhythm Low voltage QRS Nonspecific T wave abnormality Abnormal ECG Compared to ECG 08/21/2021 14:07:41 Low QRS voltage now present T-wave abnormality still present Electronically Signed On 02-20-22 13:47:18 CDT by Anmol Narayanan
== END 2022-02-17 22:40 | disposition home or self-care (01) ==
LOC: ER 17:32
DX: R10.12 Left upper quadrant pain (principal); R11.2 Nausea with vomiting, unspecified; Z88.5 Allergy status to narcotic agent; Z88.6 Allergy status to analgesic agent; Z88.8 Allergy status to other drugs, medicaments and biological substances
CPT/HCPCS: 36415; 74177; 80053; 81003; 83690; 85025; 93005; 96361; 96374; 96375; 99283; J2405; J7030; Q9967

== ENCOUNTER 2022-03-14 10:48 | Emergency (ER) | payer SELFPAY ==
--- OUTSIDE RECORDS SUMMARY | 2022-03-14 10:56 | XMS REPORT | Continuity of Care Document ---
:1975 Author Organization [facility] t Address [address] [place] [address] Care Team Providers Name Role Phone Asked, No Pcp Primary Care Physician Unavailable Danie Garcia Attending Clinician Unavailable ESTER PERES Attending Clinician Unavailable HAMZAH CAMPBELL Attending Clinician Unavailable CAT PRITCHETT Attending Clinician Unavailable Cat Pritchett DO Attending Clinician ALFONZO ALARCON Attending Clinician Unavailable Marina PERALTA, Tony Hdz Attending Clinician Alfonzo Alarcon MD Attending Clinician [phone] Malcom Espinal Attending Clinician ROYCE PRUETT Attending Clinician Unavailable Ester Peres MD Attending Clinician MG WOOD Attending Clinician Unavailable DEMETRIA JAFFE Attending Clinician Unavailable THANIA OLSON Attending Clinician Unavailable EMELYN PHILLIPS Attending Clinician Unavailable OSCAR LUGO Attending Clinician Unavailable BROOKE FAUST Attending Clinician Unavailable RAJI JEAN BAPTISTE, DPM Attending Clinician Unavailable Raji Jean Baptiste Attending Clinician Palomo Cervantes Attending Clinician Doctor Unassigned, [place] Attending Clinician Unavailable ESTER PERES Admitting Clinician Unavailable Raji Jean Baptiste Admitting Clinician Payers Payer Name Policy Type Policy Number Effective Date Expiration Date S ource [employer] [place] - [id number] 2020 00:00:00 OUT OF STATE BCBS 2 [id number] 2021 00:00:00 Problems Condition Condition Condition Status [...] f medial medial 00:00: g of this [place] meniscus meniscus 00 note Medica l of left of left might be Branch knee as knee as different current current from the injury, injury, original. initial initial Added encounter encounter automatic ally from request for surgery [id number] Secondary Secondary Disease Active Overview: Univers oligomenor oligomenor 4-08 Formattin ity of pete pete 00:00: g of this [place] 00 note Medical might be Branch different [...] HDL HDL 1-12 ity of 00:00: [place] [facility] Abnormal [...] Left Left Disease Active Univers shoulder shoulder 12 ity of pain pain 00:00: [place] 00 [facility] Essential Essential Disease Active Uni vers hypertensi hypertensi 1-11 it y of on on 00:00: [place] [facility] Anxiety Anxiety Disease Active Univers disorder disorder -11 ity of 00:00: [place] 00 [facility] 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 1- 04:01:02 l (disorder) (disorder) 00:00: Vladimir jimenez Active 00 07/16/1976 Problem 02/28/2020 reports reaction from [facility] Acid Acid Problem Active 2020-02-28 Memor ia reflux reflux 04:01:02 l (finding) (finding) Juany andres Active Problem 02/28/2020 [facility] Allergy - Allergy Problem Active 2020-02-28 Memoria specialty - 04:01:02 l (qualifier specialty Her paulino value) (qualifier value) Active Problem 02/28/2020 [facility] Fracture Fracture Problem Active 2020-02-28 Memoria of [place] 04:01:02 l (disorder) (disorder) Vladimir jimenez Active Problem 02/28/2020 [facility] Neuropathy Neuropath Problem Active 2020-02-28 Memoria (disorder) y 04:01:02 l (disorder) Burak lozano Active Problem 02/28/2020 [facility] Osteochond Osteochond Problem [...] Active U nivers ia ia ity of [facility] Disc Disc Disease Active Univers disease, disease, ity of degener[place] degener[place] ve, lumbar ve, lumbar Me dical or or Branch lumbosacra lumbosacra l l Cervical Cervical Disease Active Unive rs herniated herniated ity of disc disc [facility] Lumbar Lumbar Disease Active Univers herniated herniated ity of disc disc [facility] No known No known Disease Metho di active active st problems problems Hospit a l Ankle pain Ankle Problem Active 2021-09-13 M emoria (finding) pain 00:27:51 l (finding) Luca Active Problem 09/13/2021 [facility] Asthma Asthma Problem Active 2021-09-13 Lev trupti (disorder) (disorder) 00:27:51 l Active [place] Problem 09/13/2021 [facility] Gastritis Gastritis Problem Active 2021-09-13 Memoria (disorder) (disorder) 00:27:51 l Active [place] Problem 09/13/2021 [facility] Hemangioma Hemangiom Problem Active 2021-09-13 Memoria of a of 00:27:51 l intracrani intracrani Vladimir oconnell al structure structure (disorder) (disorder) Active Problem 09/13/2021 [facility] Hypertensi Hypertens Problem Active 2021-09-13 Memoria ve shireen 00:27:51 l disorder, disorder, Herm mckenna systemic systemic arterial arterial (disorder) (disorder) Active Problem 09/13/2021 [facility] Hypothyroi Hypothyro Problem Active 2021-09-13 Memoria dism idism 00:27:51 l (disorder) (disorder) He rmann Active Problem 09/13/2021 [facility] Migraine Migraine Problem Active 2021-09-13 Memoria (disorder) (disorder) 00:27:51 l Active [place] Problem 09/13/2021 [facility] Morbid Morbid Problem Active 2021-09-13 Lev trupti obesity obesity 00:27:51 l (disorder) (disorder) He rmann Active Problem 09/13/2021 [facility] 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 00:27:51 l (disorder) (disorder) He rmann Active Problem 09/13/2021 [facility] Lumbar Lumbar Problem Active 2021-09-13 Lev trupti radiculopa radiculopa 00:27:51 l thy thy Luca (disorder) (disorder) Active Problem 09/13/2021 [facility] Paresthesi Problem Active 2021-09-13 M emoria a Paresthesi 00:27:51 l (finding) a Luca (finding) Active Problem 09/13/2021 [facility] Peripheral Periphera Problem Active 2021-09-13 Memoria nerve l nerve 00:27:51 l disease disease Luca (disorder) (disorder) Active Problem 09/13/2021 [facility] History of Past Illness Condition Condition Condition Status Onset Resolution Last Treating Co mments Source Name Details Category Date Date Treatment Clinician Date Nondisplac Nondispla Problem 2020-02-28 2020-02-28 Memoria ed dome day dome 8-13 04:01:02 04:01:02 l fracture fracture 17:00: Burak n of left of left 00 [place], [place], initial initial encounter encounter for closed for closed fracture fracture 02/26/2020 02/28/2020 [facility] Allergies, Adverse Reactions, Alerts Allergy Allergy Status Severity Reaction(s) Onset Inactive Treating Comm ents Source Name Type Date Date Clinician Fd&C Propensi Active Nausea and Agueda ey Yellow ty to Vomiting 9-16 Seybold #10 adverse 00:00: Aluminum reaction 00 [place]-Top s iramate Topirama Propensi Active Nausea and Other Ke lsey te ty to Vomiting 2-22 reaction( Seybo ld adverse 00:00: s): reaction [...] adverse 00:00: s): reaction 00 Unknown s Aluminum Propensi Active Other (See Other Me thodi Aspirin ty to Comments) 02-05 reaction( st adverse 00:00: s): Maciel [facility]osp[facility] reaction 00 syndrome, l s to UnknownRe drug yes Syndrome Yung Syndrome Yung Syndrome Codeine Propensi Active Other (See Other Met hodi ty to Comments) 02-05 reaction( st adverse 00:00: s): Hospita reaction 00 Unknown l s to drug Tramadol Propensi Active Other (See Me thodi ty to Comments) 02-05 st adverse 00:00: Hospita reaction 00 l s to drug aspirin Allergy Active [place] to drug Physici (finding ans ) codeine Allergy Active [facility] to drug Physici (finding ans ) codeine codeine Active Memoria l [place] aspirin aspirin Active Memoria l [place] Topamax Topamax Active Memoria l [place] traMADol traMADol Active Memori a violet [place] Family History Family Member Diagnosis Comments Start Date Stop Date Source Natural father Diabetes [facility] [place] [facility] Natural father Heart attack [facility] Maternal aunt Cancer [facility] Maternal grandmother Diabetes [facility] Maternal grandmother Stroke [facility] Natural mother Heart attack [facility] Natural mother Heart disease [facility] Social History Social Habit Start Date Stop Date Quantity Comments Source Exposure to Not sure Rosi armendariz SARS-CoV-2 (event) Tobacco use and 2021-05-19 2021-05-19 Smokeless tobacco Me thodist exposure 00:00:00 00:00:00 non-user Hospital Alcohol intake 2021-05-19 2021-05-19 [facility] 00:[facility]:00 00:00:00 non-drinker Hospital (finding) Sex Ass[birth year] At [birth year] [facility] 00:00:00 00:00:00 Hospital Smoking Status Start Date Stop Date Source Social History [facility] Medications Ordered Filled Start Stop Current Ordering [...] 100 (MACROBID) mg capsule 100 MG capsule mupirocin 2020-07 Yes Apply Methodi (BACTROBAN) 07-[address] 2 % 10:54: Hospita ointment 00 l nitrofurant 2020-07 Yes nitrofuran Methodi oin, 07-[address] macrocrysta 10:54: monohydrat Hospita l-monohydra 00 e/macrocry l te, stals 100 (MACROBID) mg capsule 100 MG capsule doxycycline 2020-07 Yes doxycyclin Methodi (VIBRA-TABS -[address] ) 100 MG 10:53: 100 mg Hospita tablet 59 tablet l eletriptan 2020-07 Yes eletriptan M ethodi (RELPAX) 40 1-[address] MG tablet 10:53: tablet Hospit a 59 l flu vac qv 2020-07 Yes Flublok Meth jason 2018,yr 1-[address] up,rc,PF, 10:53: Hos helga (Flublok 59 (PF) 180 l Quad mcg (45 , mcg x PF,) 180 4)/0.5 mL mcg (45 mcg IM syringe x 4)/0.5 mL PHARMACIST syringe ADMINISTER ED IMMUNIZATI ON ADMINISTER ED AT TIME OF DISPENSING doxycycline 2020-07 Yes doxycyclin Methodi (VIBRA-TABS 1-[address] ) 100 MG 10:53: 100 mg Hospita tablet 59 tablet l eletriptan 2020-07 Yes eletriptan M ethodi (RELPAX) 40 1-[address] MG tablet 10:53: tablet Hospit a 59 l flu vac qv 2020-07 Yes Flublok Meth jason 1-[address] up,rc,PF, 10:53: Hos helga (Flublok 59 (PF) 180 l Quad mcg (45 , mcg x PF,) 180 4)/0.5 mL mcg (45 mcg IM syringe x 4)/0.5 mL PHARMACIST syringe ADMINISTER ED IMMUNIZATI ON ADMINISTER ED AT TIME OF DISPENSING bromphenira 2020-07 Yes bromphenir Methodi mine-pseudo 1-04 amine-pseu st eph-DM 10:53: doephedrin Hospi ta 58 e-DM 2 l mg/5 mL mg-30 syrup mg-10 mg/5 mL oral syrup budesonide 2020-07 Yes 1mg Inhale 1 Met hodi (PULMICORT) 1-[address] 1 mg/2 mL 10:53: Hospita nebulizer 58 l solution bromphenira 2020-07 Yes bromphenir Methodi mine-pseudo 1-04 amine-pseu st eph-DM 10:53: doephedrin Hospi ta 2 58 e-DM 2 l mg/5 mL mg-30 syrup mg-10 mg/5 mL oral syrup budesonide 2020-07 Yes 1mg Inhale 1 Met hodi (PULMICORT) 1-[address] 1 mg/2 mL 10:53: Hospita nebulizer 58 l solution cyclobenzap 2020-07 Yes Method i rine 0-21 st (FLEXERIL) 00:00: Hospita 10 mg 00 l tablet cyclobenzap 2020-07 Yes Method i rine 0-21 [...] 32 on daily Suspension Cyclobenzap 2020-07 Yes [id number] 10mg Take 1 Rosi rine HCl 10 [...] 0-04 Seybold oral Tablet 00:00: 00 amitriptyli 2020-07 Yes Method i ne (ELAVIL) 0-04 st 75 MG 00:00: Hospita tablet 00 l medroxyPROG 2020-07 Yes Method i ESTERone 0-04 st (PROVERA) 00:00: Hospita 10 MG 00 l tablet ubrogepant Yes 100 mg = 1 M emoria 100 MG Oral 9-10 tab, PO, l Tablet 21:15: PRN, PRN [place] [Ubrelvy] 00 Other -See Comment, X 30 day, # 10 tab, 1 Refill(s), Pharmacy: [id number], For Migraine. May repeat dose after 2 hours. Max dose 200 mg/ 24 hours, 152.4, cm, 03/16/21 8:31:00 CDT, Height, 112.727, kg, 03/16/21 8... ubrogepant 2020-0 Yes 100 mg = 1 M emoria 100 MG Oral 9-10 tab, PO, l Tablet 21:15: PRN, PRN [place] [Ubrelvy] 00 Other -See Comment, X 30 day, # 10 tab, 1 Refill(s), Pharmacy: [facility], For Migraine. May repeat dose after 2 hours. Max dose 200 mg/ 24 hours, 152.4, cm, 03/16/21 8:31:00 CDT, Height, 112.727, kg, 03/16/21 8... ubrogepant 2020-0 Yes 100 mg = 1 M ethodi (Ubrelvy) 9-10 tab, PO, st 100 mg 00:00: PRN, PRN Hospita tablet 00 Other -See l Comment, X 30 day, # 10 tab, 1 Refill(s), Pharmacy: [facility], For Migraine. May repeat dose after 2 hours. Max dose 200 mg/ 24 hours, 152.4, cm, 03/16/21 8:31:00 CDT, Height, 112.727, kg, 03/16/21 8... ubrogepant 2020-0 Yes 100 mg = 1 M ethodi (Ubrelvy) 9-10 tab, PO, st 100 mg 00:00: PRN, PRN Hospita tablet 00 Other -See l Comment, X 30 day, # 10 tab, 1 Refill(s), Pharmacy: [id number], For Migraine. May repeat dose after 2 hours. Max dose 200 mg/ 24 hours, 152.4, cm, 03/16/21 8:31:00 CDT, Height, 112.727, kg, 03/16/21 8... ubrogepant 2020-0 No 100 mg = 1 M emoria 100 MG Oral 9-03 tab, PO, l Tablet 16:30: PRN, PRN [place] [Ubrelvy] 00 Other -See Comment, X 30 day, # 10 tab, 1 Refill(s), Pharmacy: [facility], For Migraine. May repeat dose after 2 hours. Max dose 200 mg/ 24 hours, 152.4, cm, 03/16/21 8:31:00 CDT, Height, 112.727, kg, 03/16/21 8:... ubrogepant 2020-0 No 100 mg = 1 M emoria 100 MG Oral 9-03 tab, PO, l Tablet 16:30: PRN, PRN [place] [Ubrelvy] 00 Other -See Comment, X 30 day, # 10 tab, 1 Refill(s), Pharmacy: [facility], For Migraine. May repeat dose after 2 hours. Max dose 200 mg/ 24 hours, 152.4, cm, 03/16/21 8:31:00 CDT, Height, 112.727, kg, 03/16/21 8:... amitriptyli 2020-0 Yes = 1 tab, Me moria ne 75 mg 9-01 PO, l oral tablet 23:57: Bedtime, # [place] 00 30 ea, 5 Refill(s), Pharmacy: [facility], 152.4, cm, 03/16/21 8:31:00 CDT, Height, 112.727, kg, 03/16/21 8:31:00 CDT, Weight amitriptyli 2020-0 Yes = 1 tab, Me moria ne 75 mg 9-01 PO, l oral tablet 23:57: Bedtime, # [place] 00 30 ea, 5 Refill(s), Pharmacy: [facility], 152.4, cm, 03/16/21 8:31:00 CDT, Height, 112.727, kg, 03/16/21 8:31:00 CDT, Weight Amitriptyli Yes amitriptyl Rosi ne HCl 75 03-16 ine 75 mg Seybo ld MG oral 00:00: tablet Tablet 00 ubrogepant No 100 mg = 1 M emoria 100 MG Oral 8-23 tab, PO, l Tablet 21:26: PRN, PRN [place] [Ubrelvy] 00 Other -See Comment, X 30 day, # 10 tab, 1 Refill(s), Pharmacy: [facility], For Migraine. May repeat dose after 2 hours. Max dose 200 mg/ 24 hours, 152.4, cm, 02/01/21 13:49:00 CDT, Height, 116.818, kg, 02/01/21 1... ubrogepant No 100 mg = 1 M emoria 100 MG Oral 8-23 tab, PO, l Tablet 21:26: PRN, PRN [place] [Ubrelvy] 00 Other -See Comment, X 30 day, # 10 tab, 1 Refill(s), Pharmacy: [facility], For Migraine. May repeat dose after 2 hours. Max dose 200 mg/ 24 hours, 152.4, cm, 02/01/21 13:49:00 CDT, Height, 116.818, kg, 02/01/21 1... ibuprofen 2020-0 Yes Methodi (ADVIL) 600 8-04 st MG tablet 00:00: Hospita 00 l Ibuprofen 2020-0 Yes Rosi 600 MG oral 8-04 Seybold Tablet 00:00: 00 ibuprofen 2020-0 Yes Methodi (ADVIL) 600 8-04 st MG tablet 00:00: Hospita 00 l methylPREDN 2020-0 Yes [id number] 84mg Take 21 Univers ISolone 7-30 tablets by ity of (MEDROL, 00:00: mouth [place] GENARO,) 4 mg 00 SEE-INSTRU Med ical tablets CTIONS. Branch follow package directions methylPREDN 1-0 Yes [id number] 84mg Take 21 Univers ISolone 7-30 tablets by ity of (MEDROL, 00:00: mouth [place] GENARO,) 4 mg 00 SEE-INSTRU Med ical tablets CTIONS. Branch follow package directions methylPREDN 2020-0 Yes [id number] 84mg Take 21 Univers ISolone 7-30 tablets by ity of (MEDROL, 00:00: mouth [place] GENARO,) 4 mg 00 SEE-INSTRU Med ical tablets CTIONS. Branch follow package directions medroxyPROG 2020-0 Yes every 24 Ke lsey ESTERone 5-13 hours Seybold Acetate 10 00:00: MG oral 00 Tablet medroxyPROG 2020-0 Yes [id number] 20mg Take 2 Univers ESTERone 5-13 tablets by ity o f (PROVERA) 00:00: mouth [place] 10 mg 00 daily. Medical tablet Branch medroxyPROG 2020-0 Yes [id number] 20mg Take 2 Univers ESTERone 5-13 tablets by ity o f (PROVERA) 00:00: mouth [place] 10 mg 00 daily. Medical tablet Branch medroxyPROG 2020-0 Yes [id number] 20mg Take 2 Univers ESTERone 5-13 tablets by ity o f (PROVERA) 00:00: mouth [place] 10 mg 00 daily. 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, Height, 113.636, kg, 09/24/20 13:34:00 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, Weight Rizatriptan Yes rizatripta Rosi Benzoate 5 3-12 n 5 mg Seybold MG oral 00:00: tablet Tablet 00 TAKE 1 TABLET BY MOUTH ONCE DAILY NEEDED FOR HEADACHE MIGRAINE rizatriptan 2020-0 Yes 5 mg = 1 Me moria 5 MG Oral 9-15 tab, PO, l Tablet 22:44: ONCE, PRN Burak n [Maxalt] 00 for migraine headache, # 9 tab, 1 Refill(s), Pharmacy: [facility], 152.4, cm, 01/15/20 15:04:00 CDT, Height, 115.455, kg, 01/15/20 15:04:00 CDT, Weight rizatriptan 2020-0 Yes 5 mg = 1 Me moria 5 MG Oral 9-15 tab, PO, l Tablet 22:44: ONCE, PRN Burak n [Maxalt] 00 for migraine headache, # 9 tab, 1 Refill(s), Pharmacy: [facility], 152.4, cm, 01/15/20 15:04:00 CDT, Height, 115.455, kg, 01/15/20 15:04:00 CDT, Weight Misc 2020-0 No 900 mL, Memoria Medication 02-25 Soln-IV, l 15:27: IV, Once, first dose 02/26/20 10:27:00 CDT, stop date 02/26/20 10:27:00 CDT Misc 2020-0 No 900 mL, Memoria Medication 02-25 Soln-IV, l 15:27: IV, Once, first dose 02/26/20 10:27:00 CDT, stop date 02/26/20 10:27:00 CDT LR 1,000 mL 2020-0 No 1,000 mL, M emoria 02-25 IV, [...] for vomiting, first dose 02/26/20 10:20:00 CDT LR 1,000 mL 2020-0 No 1,000 [...] 9:16:00 CDT, stop date 02/26/20 9:16:00 CDT fentaNYL 2020-0 No 25 mcg = Memor ia 8-13 0.5 mL, l 14:16: Injection, [place] 00 IV, Once, first dose 02/26/20 9:16:00 CDT, stop date 02/26/20 9:16:00 CDT Misc 2020-0 No 1,000 mL, Memoria Medication 8-13 Soln-IV, l 13:23: IV, Once, [place] 00 first dose 02/26/20 8:23:00 CDT, stop date 02/26/20 8:23:00 CDT Misc 2020-0 No 1,000 mL, Memoria [...] Mem oria 8-13 mL, l 12:53: Injection, [place] 00 IV, Once, first dose 02/26/20 7:53:00 CDT, stop date 02/26/20 7:53:00 CDT ceFAZolin 2020-0 No 2 gm, Memoria -13 Soln-IV, l 12:53: IV Piggyback, Once, first [...] Mem oria 8-13 mL, l 12:53: Injection, [place] 00 IV, Once, first dose 02/26/20 7:53:00 CDT, stop date 02/26/20 7:53:00 CDT lidocaine 2020-0 No 100 mg = 5 Me moria 8-13 mL, l 12:41: Injection, [place] 00 IV, Once, first dose 02/26/20 7:41:00 CDT, stop date 02/26/20 7:41:00 CDT propofol 2020-0 No 200 mg = Memor ia 8-13 20 mL, l 12:41: Emulsion, Luca 00 IV, Once, first dose 02/26/20 7:41:00 CDT, stop date 02/26/20 7:41:00 CDT lidocaine 2020-0 No 100 mg = 5 Me moria 8-13 mL, l 12:41: Injection, [place] 00 IV, Once, first dose 02/26/20 7:41:00 CDT, stop date 02/26/20 7:41:00 CDT propofol 2020-0 No 200 mg = Memor ia 8-13 20 mL, l 12:41: Emulsion, Luca 00 IV, Once, first dose 02/26/20 7:41:00 CDT, stop date 02/26/20 7:41:00 CDT fentaNYL 2020-0 No 50 mcg = 1 Mem oria 8-13 mL, l 12:35: Injection, [place] 00 IV, Once, first dose 02/26/20 7:35:00 CDT, stop date 02/26/20 7:35:00 CDT fentaNYL 2020-0 No 50 mcg = 1 Mem oria 8-13 mL, l 12:35: Injection, [place] 00 IV, Once, first dose 02/26/20 7:35:00 [...] 7:26:00 CDT, stop date 02/26/20 7:26:00 CDT midazolam 2020-0 No 1 mg = 1 Lev trupti 8-13 mL, l 12:26: Injection, Luca 00 IV, Once, first dose 02/26/20 7:26:00 CDT, stop date 02/26/20 7:26:00 CDT fentaNYL 2020-0 No 50 mcg = 1 Mem oria 8-13 mL, l 12:25: Injection, [place] 00 IV, Once, first dose 02/26/20 7:25:00 CDT, stop date 02/26/20 7:25:00 CDT fentaNYL 2020-0 No 50 mcg = 1 Mem oria 8-13 mL, l 12:25: Injection, [place] 00 IV, Once, first dose 02/26/20 7:25:00 CDT, stop date 02/26/20 7:25:00 CDT Cefazolin 2020-0 No 2 gm, Memoria 8-13 Soln-IV, l 12:00: IV [place] 00 Piggyback, Once, infuse over 30 minutes, first dose 02/26/20 7:00:00 CDT, stop date 02/26/20 7:00:00 CDT, patient weight 50-120 kg, Prophylaxi s Cefazolin 2020-0 No 2 gm, Memoria 8-13 Soln-IV, l 12:00: IV [place] 00 Piggyback, Once, infuse over 30 minutes, first dose 02/26/20 7:00:00 CDT, stop date 02/26/20 7:00:00 CDT, patient weight 50-120 kg, Prophylaxi s LR 1,000 mL 2020-0 No 1,000 mL, M emoria 8-13 IV, 30 l 11:28: mL/hr, [place] start date 02/26/20 6:28:00 CDT, 2.14, m2 Lidocaine 2020-0 No 0.2 mL, Memor ia 2% 0.2 mL 02-25 Injection, l IV Start 11:28: [facility]] 00 us, Once PRN for other (see comment), first dose 02/26/20 6:28:00 CDT LR 1,000 mL 2020-0 No 1,000 mL, M emoria 8- IV, 30 l 11:28: mL/hr, Luca start date 02/26/20 6:28:00 CDT, 2.14, m2 Lidocaine 2020-0 No 0.2 mL, Memor ia 2% 0.2 mL 02-25 Injection, l IV Start 11:28: [facility] [[facility]] 00 us, Once PRN for other (see comment), first dose 02/26/20 6:28:00 CDT Allergy 2020-0 Yes mg, Oral, Memor ia Relief 8-05 Daily, 0 l 17:06: Refill(s) Allergy 2020-0 Yes mg, Oral, Memor ia Relief 8-05 Daily, 0 l 17:06: Refill(s) Tylenol PM 2020-0 Yes Oral, qHS, M emoria 8-05 0 l 17:05: Refill(s), sleep /pain Tylenol PM 2020-0 Yes Oral, qHS, M emoria 805 0 l 17:05: Refill(s), [place] sleep /pain amitriptyli 2020-0 Yes 75 mg = 1 M emoria ne 75 mg 8-05 tabs, l oral tablet 17:04: Oral, qHS, Luca 00 0 Refill(s), sleep levothyroxi 2020-0 Yes [...] 0 Refill(s), joint pain amitriptyli 2020-0 Yes 75 mg = 1 M emoria ne 75 mg 8-05 tabs, l oral tablet 17:04: Oral, qHS, Luca 00 0 Refill(s), sleep levothyroxi 2020-0 Yes [...] mg 8-05 tabs, l oral 17:04: Oral, [place] delayed 00 Daily, 0 release Refill(s), tablet [...] TAKE 1 TABLET BY MOUTH ONCE DAILY pantoprazol 2020-0 Yes pantoprazo Methodi e 8-[address] (PROTONIX) 00:00: tablet,del H ospita 40 MG EC 00 ayed l tablet release TAKE 1 TABLET BY MOUTH ONCE DAILY amitriptyli 2020-0 Yes = 1 tab, Me moria ne 75 mg 7-02 PO, l oral tablet 20:24: Bedtime, # Luca 00 30 ea, 5 Refill(s), Pharmacy: [facility], 152.4, cm, 01/15/20 15:04:00 CDT, Height, 115.455, kg, 01/15/20 15:04:00 CDT, Weight rizatriptan 2020-0 Yes 5 mg = 1 Me moria 5 MG Oral 7-02 tab, PO, l Tablet 20:24: ONCE, PRN Burak n [Maxalt] 00 for migraine headache, # 9 tab, 1 Refill(s), Pharmacy: [facility], 152.4, cm, 01/15/20 15:04:00 CDT, Height, 115.455, kg, 01/15/20 15:04:00 CDT, Weight amitriptyli 2020-0 Yes = 1 tab, Me moria ne 75 mg 7-02 PO, l oral tablet 20:24: Bedtime, # [place] 00 30 ea, 5 Refill(s), Pharmacy: [facility], 152.4, cm, 01/15/20 15:04:00 CDT, Height, 115.455, kg, 01/15/20 15:04:00 CDT, Weight rizatriptan 2020-0 Yes 5 mg = 1 Me moria 5 MG Oral 7-02 tab, PO, l Tablet 20:24: ONCE, PRN Burak n [Maxalt] 00 for migraine headache, # 9 tab, 1 Refill(s), Pharmacy: [facility], 152.4, cm, 01/15/20 15:04:00 CDT, Height, 115.455, kg, 01/15/20 15:04:00 CDT, Weight rizatriptan 2020-0 Yes 5 mg = 1 Me moria 5 MG Oral 5-19 tab, PO, l Tablet 21:06: ONCE, PRN Burak n [Maxalt] 00 for migraine headache, # 9 tab, 1 Refill(s), Pharmacy: [facility] amitriptyli 2020-0 Yes = 1 tab, Me moria ne 75 mg 5-19 PO, l oral tablet 21:06: Bedtime, # Luca 00 30 ea, 1 Refill(s), Pharmacy: [facility] rizatriptan Yes 5 mg = 1 Me moria 5 MG Oral 5-19 tab, PO, l Tablet 21:06: ONCE, PRN Burak n [Maxalt] 00 for migraine headache, # 9 tab, 1 Refill(s), Pharmacy: [facility] amitriptyli Yes = 1 tab, Me moria ne 75 mg 5-19 PO, l oral tablet 21:06: Bedtime, # [place] 00 30 ea, 1 Refill(s), Pharmacy: [facility] loratadine Yes loratadine M ethodi (CLARITIN) 9-[address] 10 mg 00:00: tablet Hospita tablet 00 TAKE 1 l TABLET BY MOUTH ONCE DAILY sod Yes [id number] 1{bottl Use 1 Unive rs chlor-bicar 9-08 e} Bottle in ity of b-squeez 00:00: each [place] bottle 00 nostril 2 Medical (NEILMED (two) Branch SINUS RINSE times COMPLETE) daily. Use pkdv in hot shower 1 hour before bedtime loratadine Yes [id number] 10mg Take 1 U nivers 10 mg 9-08 tablet by ity of tablet 00:00: mouth [place] 00 daily. Medical Branch sod Yes [id number] 1{bottl Use 1 Unive rs chlor-bicar 9-08 e} Bottle in ity of b-squeez 00:00: each [place] bottle 00 nostril 2 Medical (NEILMED (two) Branch SINUS RINSE times COMPLETE) daily. Use pkdv in hot shower 1 hour before bedtime loratadine Yes [id number] 10mg Take 1 U nivers 10 mg 9-08 tablet by ity of tablet 00:00: mouth [place] 00 daily. Medical Branch sod Yes [id number] 1{bottl Use 1 Unive rs chlor-bicar 9-08 e} Bottle in ity of b-squeez 00:00: each [place] bottle 00 nostril 2 Medical (NEILMED (two) Branch SINUS RINSE times COMPLETE) daily. Use pkdv in hot shower 1 hour before bedtime loratadine Yes [id number] 10mg Take 1 U nivers 10 mg 9-08 tablet by ity of tablet 00:00: mouth [place] 00 daily. Medical Branch loratadine Yes loratadine M ethodi (CLARITIN) [address] 10 mg 00:00: tablet Hospita tablet 00 TAKE 1 l TABLET BY MOUTH ONCE DAILY amitriptyli Yes 75 mg = 1 M emoria ne 75 mg 8-22 tab, PO, l oral tablet 18:27: Bedtime, # [place] 00 30 tab, 1 Refill(s), Pharmacy: [facility] amitriptyli Yes 75 mg = 1 M emoria ne 75 mg 8-22 tab, PO, l oral tablet 18:27: Bedtime, # [place] 00 30 tab, 1 Refill(s), Pharmacy: [facility] rizatriptan Yes 5 mg = 1 Me moria 5 MG Oral 8-02 tab, PO, l Tablet 20:24: ONCE, PRN Burak n [Maxalt] 09 for migraine headache, # 9 tab, 1 Refill(s), Pharmacy: [place] [address] rizatriptan Yes 5 mg = 1 Me moria 5 MG Oral 8-02 tab, PO, l Tablet 20:24: ONCE, PRN Burak n [Maxalt] 09 for migraine headache, # 9 tab, 1 Refill(s), Pharmacy: [facility] thiamine Yes 100 mg = 1 Mem oria 100 mg oral 8-02 tab, PO, l tablet 20:23: Daily, X [place] 17 30 day, # 30 tab, 3 Refill(s), Pharmacy: [facility] thiamine Yes 100 mg = 1 Mem oria 100 mg oral 8-02 tab, PO, l tablet 20:23: Daily, X [place] 17 30 day, # 30 tab, 3 Refill(s), Pharmacy: [facility] cyanocobala Yes 1,000 Memor ia min 1000 8-02 microgram l mcg 20:23: = 1 tab, [place] sublingual 13 SL, Daily, tablet # 30 tab, 2 Refill(s), Pharmacy: [facility] cyanocobala Yes 1,000 Memor ia min 1000 8-02 microgram l mcg 20:23: = 1 tab, [place] sublingual 13 SL, Daily, tablet # 30 tab, 2 Refill(s), Pharmacy: [facility] amitriptyli Yes 50 mg = 1 M emoria ne 50 mg 8-02 tab, PO, l oral tablet 20:23: Bedtime, # [place] 09 30 tab, 1 Refill(s), Pharmacy: [facility] amitriptyli Yes 50 mg = 1 M emoria ne 50 mg 8-02 tab, PO, l oral tablet 20:23: Bedtime, # [place] 09 30 tab, 1 Refill(s), Pharmacy: [facility] rizatriptan Yes rizatripta Methodi (MAXALT) 5 8-[address] MG tablet 00:00: tablet Hospit a 00 TAKE 1 l TABLET BY MOUTH ONCE DAILY NEEDED FOR HEADACHE MIGRAINE rizatriptan Yes rizatripta Methodi (MAXALT) 5 -[address] MG tablet 00:00: tablet Hospit a 00 TAKE 1 l TABLET BY MOUTH ONCE DAILY NEEDED FOR HEADACHE MIGRAINE rizatriptan No 5 mg = 1 Me moria 5 MG Oral 7-13 tab, PO, l Tablet 01:53: Daily, PRN Antonia nn [Maxalt] 00 for migraine headache, X 6 day, # 6 tab, 1 Refill(s), Pharmacy: [facility] amitriptyli No 50 mg = 1 M emoria ne 50 mg 7-13 tab, PO, l oral tablet 01:53: Bedtime, # [place] 00 30 tab, 1 Refill(s), Pharmacy: [facility] rizatriptan No 5 mg = 1 Me moria 5 MG Oral 7-13 tab, PO, l Tablet 01:53: Daily, PRN Antonia nn [Maxalt] 00 for migraine headache, X 6 day, # 6 tab, 1 Refill(s), Pharmacy: [facility] amitriptyli No 50 mg = 1 M emoria ne 50 mg 7-13 tab, PO, l oral tablet 01:53: Bedtime, # [place] 00 30 tab, 1 Refill(s), Pharmacy: [facility] frovatripta No 2.5 mg = 1 Memoria n 2.5 mg 6-27 tab, PO, l oral tablet 15:37: Daily, PRN [place] 00 for migraine headache, May repeat another dose at least 2 hours after the first dose, X 3 day, # 9 tab, 2 Refill(s), Pharmacy: [facility] frovatripta No 2.5 mg = 1 Memoria n 2.5 mg 6-27 tab, PO, l oral tablet 15:37: Daily, PRN [place] 00 for migraine headache, May repeat another dose at least 2 hours after the first dose, X 3 day, # 9 tab, 2 Refill(s), Pharmacy: [facility] eletriptan No See Memoria 40 MG Oral 6-25 Instructio l Tablet 23:35: ns, PO, [place] [Relpax] 00 Take 1-2 tabs orally at onset of migraine, may repeat dose once in 2 hours, X 3 day, # 6 tab, 1 Refill(s), Pharmacy: [facility] eletriptan No See Memoria 40 MG Oral 6-25 Instructio l Tablet 23:35: ns, PO, Luca [Relpax] 00 Take 1-2 tabs orally at onset of migraine, may repeat dose once in 2 hours, X 3 day, # 6 tab, 1 Refill(s), Pharmacy: [facility] amitriptyli Yes 25 mg = 1 M emoria ne 25 mg 6-11 tab, PO, l oral tablet 21:16: Bedtime, # [place] 00 30 tab, 3 Refill(s), Pharmacy: [facility] amitriptyli Yes 25 mg = 1 M emoria ne 25 mg 6-11 tab, PO, l oral tablet 21:16: Bedtime, # [place] 00 30 tab, 3 Refill(s), Pharmacy: [facility] cyanocobala Yes 1,000 Memor ia min 1000 6-07 microgram l mcg 19:39: = 1 tab, [place] sublingual 00 SL, Daily, tablet # 30 tab, 2 Refill(s), Pharmacy: [facility] 808 cyanocobala 2018- Yes 1,000 Memor ia min 1000 6-07 microgram l mcg 19:39: = 1 tab, [place] sublingual 00 SL, Daily, tablet # 30 tab, 2 Refill(s), Pharmacy: [facility] 808 thiamine 0 Yes 100 mg = 1 Mem oria 100 mg oral 5-17 tab, PO, l tablet 18:13: Daily, X [place] 00 30 day, # 30 tab, 3 Refill(s), Pharmacy: [facility] thiamine Yes 100 mg = 1 Mem oria 100 mg oral 5-17 tab, PO, l tablet 18:13: Daily, X [place] 00 30 day, # 30 tab, 3 Refill(s), Pharmacy: [facility] 808 amitriptyli Yes 10 mg = 1 M emoria ne 10 mg 5-10 tab, PO, l oral tablet 20:44: Bedtime, # [place] 00 30 tab, 3 Refill(s), Pharmacy: [facility] amitriptyli Yes 10 mg = 1 M emoria ne 10 mg 5-10 tab, PO, l oral tablet 20:44: Bedtime, # [place] 00 30 tab, 3 Refill(s), Pharmacy: [facility] 808 gabapentin 2018- Yes 300 mg = 1 M emoria 300 MG Oral 5-10 cap, PO, l Capsule 20:28: BID, # 90 Antonia nn 00 cap, 1 Refill(s) cyclobenzap No 10 mg = 1 M emoria rine 10 mg 5-10 tab, PO, l oral tablet 20:28: TID, PRN He rmann 00 for spasms, # 30 tab, 0 Refill(s) escitalopra 2018-0 Yes 20 mg = 1 M emoria m 20 mg 5-10 tab, PO, l oral tablet 20:28: Daily, # He rmann 00 30 tab, 0 Refill(s) levothyroxi 2018-0 Yes 50 Memori a ne 50 mcg 5-10 microgram l (0.05 mg) 20:28: = 1 tab, Herm mckenna oral tablet 00 PO, Daily, # 30 tab, 0 Refill(s) gabapentin 2019- Yes 300 mg = 1 [...] [place] 00 every Medical morning. Branch levothyroxi 2017- Yes 50ug Take 1 Univ ers ne 50 mcg 4-30 tablet by ity o f tablet 00:00: mouth [place] 00 every Medical morning. Branch escitalopra 2016- Yes 10mg Take 1 Univ ers m oxalate 1-24 tablet by ity o f 10 mg 00:00: mouth [place] tablet 00 daily. Medical Branch escitalopra 2017- Yes 10mg Take 1 Univ ers m [...] day Ho spita 00 l bisoprolol Yes [id number] 10mg Take 1 U nivers 10 mg 1-11 tablet by ity of tablet 00:00: mouth [place] 00 daily. Medical Branch cyclobenzap Yes [id number] 10mg Take 1 Univers rine 10 mg 1-11 tablet by ity of tablet 00:00: mouth at [place] 00 bedtime. Medical Branch bisoprolol Yes [id number] 10mg Take 1 U nivers 10 mg 1-11 tablet by ity of tablet 00:00: mouth [place] 00 daily. Medical Branch cyclobenzap Yes [id number] 10mg Take 1 Univers rine 10 mg 1-11 tablet by ity of tablet 00:00: mouth at [place] 00 bedtime. Medical Branch bisoprolol Yes [id number] 10mg Take 1 U nivers 10 mg 1-11 tablet by ity of tablet 00:00: mouth [place] 00 daily. Medical Branch cyclobenzap Yes [id number] 10mg Take 1 Univers rine 10 mg 1-11 tablet by ity of tablet 00:00: mouth at [place] 00 bedtime. Medical Branch bisoprolol Yes 1 tablet Met hodi (ZEBETA) 10 1-[address] MG tablet 00:00: Once a day Ho spita 00 l albuterol 2015-07 Yes 3 ml as Metho [...] inhaler 00 Medical Branch albuterol 2015-07 Yes 3 ml as Metho di (ACCUNEB) 1-[address] 2.5 mg /3 00:00: Hospita mL (0.083 00 l %) nebulizer solution montelukast 2015-07 Yes 10mg Take 10 mg [...] nasal 00 Medical spray Branch fluticasone Yes fluticason Methodi propionate 03-[address] (FLONASE) 00:00: propionate Ho spita 50 00 50 l mcg/actuati mcg/actuat on nasal ion nasal spray spray,susp ension Levothyroxi Levothyroxi Yes M.D. U T ne Sodium ne Sodium Physi ci TABS TABS ans Meloxicam Meloxicam Yes M.D. UT TABS TABS Physici ans Amitriptyli Amitriptyli Yes M.D. U T ne HCl TABS ne HCl TABS P hysici ans Immunizations Ordered Filled Immunization Date Status Comments [facility] e Immunization Name Name Covid-19 Vaccine 2021-03-31 Completed Rosi esposito (Moderna), 00:00:00 Mrna-lnp, Shade Protein, Pf, 100 Mcg/0.5ml,IM Covid-19 Vaccine 2021-03-02 Completed Rosi esposito (Moderna), 00:00:00 Mrna-lnp, Shade Protein, Pf, 100 Mcg/0.5ml,IM Tdap- (Boostrix, 2016-07-24 Completed Rosi esposito Adacel) 00:00:00 TDAP 2016-07-24 Completed [facility] 00:00:00 [facility] Influenza Virus 2016-07-24 Completed Universit y of Vaccine Quad IM 3+ 00:00:00 [facility] TDAP 2016-07-24 Completed [facility] 00:00:00 [facility] Influenza Virus 2016-07-24 Completed Universit y of Vaccine Quad IM 3+ 00:00:00 [facility] TDAP 2016-07-24 Completed [facility] 00:00:00 [facility] Influenza Virus 2016-07-24 Completed Universit y of Vaccine Quad IM 3+ 00:00:00 [facility] Influenza Virus 2016-07-24 Completed Rosi solano Vaccine, No 00:00:00 Preserv, age 6 months and up Tdap- (Boostrix, 2010-01-18 Completed Rosi esposito Adacel) 00:00:00 Vital Signs Vital Name Observation Time Observation Value Comments Source Systolic blood 2021-10-10 20:19:00 141 mm[Hg] Univer sity of pressure [facility] Diastolic blood 2021-10-10 20:19:00 98 mm[Hg] Unive rsity of pressure [facility] Heart rate 2021-10-10 20:19:00 109 /min [facility] Body temperature 2021-10-10 20:19:00 36.94 Sole [facility] [place] [facility] Respiratory rate 2021-10-10 20:19:00 18 /min [facility] [place] [facility] Body height 2021-10-10 20:19:00 160 cm [facility] [place] [facility] Body weight 2021-10-10 20:19:00 115.667 kg [facility] [place] [facility] BMI 2021-10-10 20:19:00 45.17 kg/m2 Universi ty of [facility] Oxygen saturation in 2021-10-10 20:19:00 97 /min [facility] Arterial blood by [facility] Pulse oximetry Branch Systolic blood 2021-04-28 14:43:00 100 mm[Hg] Rosi Seybold pressure Diastolic blood 2021-04-28 14:43:00 60 mm[Hg] Kelse y Seybold pressure Heart rate 2021-04-28 14:43:00 112 /min Rosi ballardbold Body temperature 2021-04-28 14:43:00 37 Sole Agueda ey Seybold Respiratory rate 2021-04-28 14:43:00 16 /min Agueda ey Seybold Body height 2021-04-28 14:43:00 157.5 cm Rosi S eybold Body weight 2021-04-28 14:43:00 113.853 kg Rosi S eybold BMI 2021-04-28 14:43:00 45.91 kg/m2 Rosi S eybold Systolic blood 2021-02-11 13:34:00 127 mm[Hg] Univer sity of pressure [facility] Diastolic blood 2021-02-11 13:34:00 87 mm[Hg] Unive rsity of pressure [facility] Heart rate 2021-02-11 13:34:00 100 /min [facility] [place] [facility] Body height 2021-02-11 13:34:00 160 cm [facility] [place] [facility] Body weight 2021-02-11 13:34:00 115.667 kg [facility] [place] [facility] BMI 2021-02-11 13:34:00 45.17 kg/m2 [facility] [place] [facility] Systolic (mm Hg) 2021-03-16 13:19:00 Lev rial [place] Diastolic (mm Hg) 2021-03-16 13:19:00 Mem orial [place] Heart Rate 2021-03-16 13:19:00 [facility] [place] Respitory Rate 2021-03-16 13:19:00 Memori al [place] Height 2021-03-16 13:19:00 152.4 cm [facility] [place] Weight 2021-03-16 13:19:00 [facility] [place] BMI Calculated 2021-03-16 13:19:00 Memori al [place] Systolic (mm Hg) 2021-02-01 18:35:00 Lev rial [place] Diastolic (mm Hg) 2021-02-01 18:35:00 Mem orial [place] Heart Rate 2021-02-01 18:35:00 [facility] [place] Respitory Rate 2021-02-01 18:35:00 Memori al [place] Height 2021-02-01 18:35:00 152.4 cm [facility] [place] Weight 2021-02-01 18:35:00 [facility] [place] BMI Calculated 2021-02-01 18:35:00 Memori al [place] Systolic (mm Hg) 2020-09-24 19:34:00 Lev rial [place] Diastolic (mm Hg) 2020-09-24 19:34:00 Mem orial [place] Heart Rate 2020-09-24 19:34:00 [facility] [place] Respitory Rate 2020-09-24 19:34:00 Memori al [place] Height 2020-09-24 19:34:00 160.02 cm [facility] [place] Weight 2020-09-24 19:34:00 [facility] [place] BMI Calculated 2020-09-24 19:34:00 Memori al [place] Respitory Rate 2020-02-26 16:32:00 Memori al [place] Systolic (mm Hg) 2020-02-26 16:32:00 Lev rial [place] Diastolic (mm Hg) 2020-02-26 16:32:00 Mem orial [place] Heart Rate 2020-02-26 16:00:00 [facility] [place] Respitory Rate 2020-02-26 16:00:00 Memori al [place] Systolic (mm Hg) 2020-02-26 16:00:00 Lev rial [place] Diastolic (mm Hg) 2020-02-26 16:00:00 Mem orial [place] Heart Rate 2020-02-26 15:50:00 [facility] [place] Respitory Rate 2020-02-26 15:50:00 Memori al [place] Systolic (mm Hg) 2020-02-26 15:50:00 Lev rial [place] Diastolic (mm Hg) 2020-02-26 15:50:00 Mem orial [place] Heart Rate 2020-02-26 15:40:00 [facility] [place] Temperature Oral (F) 2020-02-26 15:20:00 37.0 Sole [facility] [place] Temperature Oral (F) 2020-02-26 11:25:00 37.2 Sole [facility] [place] Height 2020-02-26 11:25:00 158 cm [facility] [place] Height 2020-02-18 16:59:00 158 cm [facility] [place] Systolic blood 2020-02-02 14:39:00 134 mm[Hg] UT [...] Systolic (mm Hg) 2020-01-15 20:04:00 Lev rial [place] Diastolic (mm Hg) 2020-01-15 20:04:00 Mem orial [place] Heart Rate 2020-01-15 20:04:00 [facility] [place] Respitory Rate 2020-01-15 20:04:00 Memori al [place] Height 2020-01-15 20:04:00 152.4 cm [facility] [place] Weight 2020-01-15 20:04:00 [facility] [place] BMI Calculated 2020-01-15 20:04:00 Memori al [place] Systolic (mm Hg) 2019-12-02 20:40:00 Lev rial [place] Diastolic (mm Hg) 2019-12-02 20:40:00 Mem orial [place] Heart Rate 2019-12-02 20:40:00 [facility] [place] Respitory Rate 2019-12-02 20:40:00 Memori al [place] Height 2019-12-02 20:40:00 152.4 cm [facility] [place] Weight 2019-12-02 20:40:00 [facility] [place] BMI Calculated 2019-12-02 20:40:00 Memori al [place] Weight 2019-02-14 19:40:00 [facility] [place] BMI Calculated 2019-02-14 19:40:00 Memori al [place] Height 2019-02-14 19:40:00 160.02 cm [facility] [place] Respitory Rate 2019-02-14 19:40:00 Memori al [place] Heart Rate 2019-02-14 19:40:00 [facility] [place] Systolic (mm Hg) 2019-02-14 19:40:00 Lev rial [place] Diastolic (mm Hg) 2019-02-14 19:40:00 Mem orial [place] BMI Calculated 2018-12-24 20:38:00 Memori al [place] Weight 2018-12-24 20:38:00 [facility] [place] Height 2018-12-24 20:38:00 157.48 cm [facility] [place] Systolic (mm Hg) 2018-12-24 20:38:00 Lev rial [place] Diastolic (mm Hg) 2018-12-24 20:38:00 Mem orial [place] Respitory Rate 2018-12-24 20:38:00 Memori al [place] Heart Rate 2018-12-24 20:38:00 [facility] [place] Height 2018-12-20 19:20:00 152.4 cm [facility] [place] BMI Calculated 2018-12-20 19:20:00 Memori al [place] Weight 2018-12-20 19:20:00 [facility] [place] Systolic (mm Hg) 2018-12-20 19:20:00 Lev rial [place] Diastolic (mm Hg) 2018-12-20 19:20:00 Mem orial [place] Heart Rate 2018-12-20 19:20:00 [facility] [place] Respitory Rate 2018-12-20 19:20:00 Memori al [place] Systolic (mm Hg) 2018-11-22 19:23:00 Lev rial [place] Diastolic (mm Hg) 2018-11-22 19:23:00 Mem orial [place] Respitory Rate 2018-11-22 19:23:00 Memori al [place] Height 2018-11-22 19:23:00 157.48 cm [facility] [place] Weight 2018-11-22 19:23:00 [facility] BMI Calculated 2018-11-22 19:23:00 Carissa Monteiroann Heart Rate 2018-11-22 19:23:00 [facility] Procedures Procedure Date / Time Performing Clinician Source Performed CONSENT/REFUSAL FOR 2021-10-10 20:09:22 Doctor Unassigned, [facility] DIAGNOSIS AND TREATMENT [place] [facility] MRI SPINE EXTERNAL STUDY 2021-04-29 16:16:04 Tony Gray [facility] [place] [facility] MR Ankle wo contrast [id number] 2020-07-02 00:00:00 [facility] [MMD] US Lower Extremity 2020-05-31 00:00:00 [facility] Venous Doppler Bilateral Post Op Promis 29 Survey 2020-03-12 00:00:00 [facility] APPLICATION SHORT LEG 2020-02-26 13:13:00 Toanevens oconnell [place] SPLINT-CALF TO FOOT [id number] (Left)<sup>1</sup> ARTHROSCOPY ANKLE 2020-02-26 13:13:00 [facility] jose 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 20727 (Left)<sup>2</sup> OPEN REDUCTION INTERNAL 2020-02-26 13:13:00 Lev rial [place] FIXATION TALUS FRACTURE [id number] (Left)<sup>3</sup> [L] 2019 Novel Coronavirus 2020-02-05 00:00:00 [facility] (COVID-19), MARK [[facility]] Ortho - Surgery 2020-02-02 00:00:00 [facility] Breast reduction, [facility] Antonia nn bilateral Bunionectomy [facility] Carpal tunnel syndrome of Carissa oconnell [place] right wrist Plantar fasciitis of left Toanevens oconnell [place] foot History of Breast [facility] reduction History of Carpal tunnel [facility] surgery Cholecystectomy [facility] Plan of Care Planned Activity Planned Date Details Comments Source Future Scheduled 2022-03-09 HEPATITIS B VACCINES [facility] Test 10:28:27 (1 of 3 - 3-dose series) [code = HEPATITIS B VACCINES (1 of 3 - 3-dose series)] Future Scheduled 2022-03-09 Hepatitis C [facility]ital Test 10:28:27 screening (procedure) [code = 059164752] Future Scheduled 2022-03-09 Screening for [facility] Test 10:28:27 malignant neoplasm of cervix (procedure) [code = 926625675] Future Scheduled 2022-03-09 BREAST CANCER [facility] Test 10:28:27 SCREENING [code = BREAST CANCER SCREENING] Future Scheduled 2022-03-09 [facility]OSCOPY [facility] Test 10:28:27 SCREENING [code = COLONOSCOPY SCREENING] Future Scheduled 2022-03-09 COVID-19 VACCINE (3 [facility] Test 10:28:27 - Booster for Moderna series) [code = COVID-19 VACCINE (3 - Booster for Moderna series)] Future Scheduled 2022-03-09 INFLUENZA VACCINE [facility] 10:28:27 [code = INFLUENZA VACCINE] Future Scheduled 2021-08-16 [facility] C [facility] Test 19:56:30 screening (procedure) [code = 838157843] Future Scheduled 2021-08-16 Screening for [facility] Test 19:56:30 malignant neoplasm of cervix (procedure) [code = 006277910] Future Scheduled 2021-08-16 INFLUENZA VACCINE Method ist [...] Date/Time Type Type Clinicians Facility Department ID 2022-02-21 Outpatient Jose [facility] [id number] Common 13:42:03 Avnee [id number] [facility] 2021-08-10 Outpatient Jose [facility] [id number] Common 13:49:13 Avnee [id number] [facility] 2021-08-10 Outpatient Garcia, [facility] [id number] Common 13:47:59 Avnee [id number] [facility] 2021-08-10 Outpatient Jose [facility] [id number] Common 13:43:00 Avnee [id number] [facility] 2021-08-10 Outpatient Jose [facility] [id number] Common 13:37:06 Avnee [id number] [facility] 2021-08-10 Outpatient Garcia, [facility] [id number] Common 13:23:50 Avnee [id number] [facility] 2021-08-10 Outpatient Garcia [facility] [id number] Common 13:22:32 Avnee [id number] [facility] 2021-08-10 Outpatient Garcia [facility] [id number] Common 13:09:55 Avnee 32406 [facility] 2021-05-15 [facility]SE [id number] [facility] 2022-[facility]-21 Outpatient ROSI CAMPBELL [id number] Rosi 00:00:00 00:00:00 HAMZAH armendariz 2021-10-10 2021-10-10 Emergency X [facility] ERT [id number] Univers 15:21:00 15:42:00 [facility] 2021-10-10 2021-10-10 Emergency [facility] [id number] Univers 15:21:00 15:42:00 Cat DUMONT [id number] [facility] [id number] [facility] [id number] [address] 2021-10-10 2021-10-10 Outpatient ROSI ALARCON [id number] Rosi 00:00:00 00:00:00 ALFONZO armendariz 2021-09-09 2021-09-11 Outside nullFlavo MNA [id number] Memoria 15:41:21 05:59:59 Medical r Neurology 00 l Records [place] 2021-09-09 2021-09-10 [id number] 09:41:21 23:59:59 00 2021-09-09 2021-09-09 Outpatient ROSI ALARCON [id number] Rosi 00:00:00 00:00:00 ALFONZO Seybol d 2021-08-26 2021-08-26 Outpatient ROSI ALARCON [id number] Rosi 00:00:00 00:00:00 ALFONZO Seybol d 2021-07-05 2021-07-05 Outpatient ROSI ALARCON [id number] Rosi 00:00:00 00:00:00 ALFONZO Seybol d 2021-07-05 2021-07-05 Outpatient ROSI ALARCON [id number] Rosi 00:00:00 00:00:00 ALFONZO Seybol d 2021-06-02 2021-06-02 Outpatient ROSI ALARCON [id number] Rosi 00:00:00 00:00:00 ALFONZO Seybol d 2021-05-23 2021-05-23 Documentat Marina, 1.2.840.1 [id number] Methodi 00:00:00 00:00:00 ion Tony R. [id number] 3.430.2.7 Hospit a .3.967761 l .8 2021-05-23 2021-05-23 Documentat Marina, 1.2.840.1 [id number] Methodi 00:00:00 00:00:00 ion Tony R. [id number] 3.430.2.7 Hospit a .3.494201 l .8 2021-05-18 2021-05-18 [facility] 1.2.840.1 [id number] Methodi 12:57:38 23:59:[id number] 3.430.2.7 Hospit a .3.572241 l .8 2021-05-18 2021-05-18 [facility] 1.2.840.1 [id number] Methodi 12:57:38 23:59:[id number] 3.430.2.7 Hospit a .3.062404 l .8 2021-05-18 2021-05-18 Office Marina, 1.2.840.1 [id number] Methodi 13:15:00 15:18:57 Visit Tony Hdz [id number] 3.430.2.7 Hospit a .3.900827 l .8 2021-05-18 2021-05-18 Office Marina, 1.2.840.1 [id number] Methodi 12:19:03 15:18:57 Visit Tony Hdz [id number] 3.430.2.7 Hospit a .3.061866 l .8 2021-05-18 2021-05-18 Outpatient [facility] [id number] [place] 00:00:00 00:00:[address] 2021-05-18 2021-05-18 Orders Marina, 1.2.840.1 [id number] Methodi 00:00:00 00:00:00 Only Tony Chavez. [id number] 3.430.2.7 Hospit a .3.223489 l .8 2021-05-18 2021-05-18 Orders Marina, 1.2.840.1 [id number] Methodi 00:00:00 00:00:00 Only Tony RJonathon [id number] 3.430.2.7 Hospit a .3.527703 l .8 2021-05-16 2021-05-16 Outpatient ROSI ALARCON [id number] Rosi 00:00:00 00:00:00 ALFONZO Seybol d 2021-05-11 2021-05-11 Outpatient ROSI ALARCON [id number] Rosi 00:00:00 00:00:00 ALFONZO Seybol d 2021-05-11 2021-05-11 Outpatient ROSI ALARCON [id number] Rosi 00:00:00 00:00:00 ALFONZO Seybol d 2021-04-28 2021-04-28 Office Jered Alarcon [id number] Rosi 09:39:43 10:09:43 Visit Alfonzo Montenegro [id number] russ Orantes [id number] [id number] 2021-04-27 2021-04-27 Ambulatory nullFlavo MNA [id number] Memoria 15:15:00 15:15:00 Pre-Reg r Neurology 13 l [place] 2021-04-27 2021-04-27 Ambulatory nullFlavo MNA [id number] Memoria 15:15:00 15:15:00 Pre-Reg r Neurology 13 l Nik Segovia 2021-04-27 2021-04-27 Outpatient MHIE MHIE [id number] Memoria 10:15:00 10:15:00 13 l [place] 2021-04-27 2021-04-27 Outpatient VIRGILIO Espinal MISCHER [id number] 10:15:00 10:15:00 Malcom Jordy Santos 2021-04-21 2021-04-21 ambulatory STLMLC STLMLC [id number] Common 00:00:00 00:00:00 [facility] 2021-04-12 2021-04-12 Outpatient STLMLC STLMLC [id number] Common 00:00:00 00:00:00 [facility] 2021-04-06 2021-04-06 ambulatory STLMLC STLMLC [id number] Common 00:00:00 00:00:00 [facility] 2021-03-31 2021-03-31 Outpatient STLMLC STLMLC [id number] Common 00:00:00 00:00:00 [facility] 2021-03-30 2021-03-30 Outpatient STLMLC STLMLC [id number] Common 00:00:00 00:00:00 [facility] 2021-03-30 2021-03-30 Outpatient STLMLC STLMLC [id number] Common 00:00:00 00:00:00 [facility] 2021-03-28 2021-03-28 Outpatient ROYCE DELEON [facility] [id number] Univers 10:30:00 10:30:00 [id number] [facility] 2021-03-28 2021-03-28 Outpatient R ROYCE PRUETT [facility] [id number] Univers 10:30:00 10:30:00 [facility] 2021-03-16 2021-03-17 Outpatient nullFlavo MNA [id number] Memoria 13:15:00 04:59:59 r Neurology 12 l Nik [place] 2021-03-16 2021-03-17 Outpatient nullFlavo MNA [id number] Memoria 13:15:00 04:59:59 r Neurology 12 l Nik [place] 2021-03-17 2021-03-17 Outpatient STLMLC STLMLC [id number] Common 00:00:00 00:00:00 [facility] 2021-03-16 2021-03-16 Outpatient [facility]ILIO [facility]inal [facility] [id number] 08:15:00 23:59:59 Malcom 12 Santos 2021-03-16 2021-03-16 Outpatient DIMAIE DIMAIE [id number] Memoria 08:15:00 08:15:00 12 l [place] 2021-02-23 2021-02-23 Outpatient STLMLC STLMLC [id number] Common 00:00:00 00:00:00 [facility] 2021-02-21 2021-02-21 Outpatient STLMLC STLMLC [id number] Common 00:00:00 00:00:00 [facility] 2021-02-16 2021-02-16 Outpatient STLMLC STLMLC [id number] Common 00:00:00 00:00:00 [facility] 2021-02-15 2021-02-15 Outpatient STLMLC STLMLC [id number] Common 00:00:00 00:00:00 [facility] 2021-02-11 2021-02-11 Outpatient Scott PERES [facility] [id number] Univers 08:15:00 08:56:02 ESTER [facility] 2021-02-11 2021-02-11 [facility] [id number] Univers 08:13:08 08:56:02 Visit Ester Aleman [facility] [id number] it y of SURGICAL [id number] [place] as SPECIALTI [id number] Il dical ES [address] [place] 2021-02-11 2021-02-11 Outpatient Scott JA [facility] [id number] Univers 08:15:00 08:15:00 ESTER [id number] [facility] 2021-02-10 2021-02-10 Outpatient Scott WOOD [facility] [id number] Univers 13:00:00 13:00:00 MG [id number] [facility] 2021-02-10 2021-02-10 Outpatient Scott WOOD [facility] [id number] Univers 13:00:00 13:00:00 MG [facility] 2021-02-03 2021-02-03 Outpatient Scott WOOD [facility] [id number] Univers 10:30:00 10:30:00 MG [id number] [facility] 2021-02-03 2021-02-03 [facility] [id number] Univers 10:30:00 10:30:00 MG [facility] 2021-02-01 2021-02-02 Outpatient nullFlavo MNA [id number] Memoria 18:30:00 04:59:59 r Neurology 11 l Nik Segovia 2021-02-01 2021-02-02 Outpatient nullFlavo MNA [id number] Memoria 18:30:00 04:59:59 r Neurology 11 l Nik Segovia 2021-02-01 2021-02-01 Outpatient VIPUL EspinalSCHFLORA CHMISCHER [id number] 13:30:00 23:59:59 Malcom Ashlee Graham 2021-02-01 2021-02-01 Outpatient DIMAIE DIMAIE [id number] Memoria 13:30:00 13:30:00 11 l [place] 2021-01-20 2021-01-20 Outpatient STLMLC STLMLC [id number] Common 00:00:00 00:00:00 [facility] 2021-01-14 2021-01-14 Outpatient STLMLC STLMLC [id number] Common 00:00:00 00:00:00 [facility] 2020-12-23 2020-12-23 Outpatient Scott HEARTMOISÉSCIRO [facility] [id number] Univers 10:00:00 10:00:00 DEMETRIA [facility] 2020-12-23 2020-12-23 Outpatient Scott OLSON [facility] [id number] Univers 09:00:00 09:00:00 WONDIFUL [id number] ity o f [facility] 2020-12-23 2020-12-23 Outpatient Scott WESLEY [facility] [id number] Univers 09:00:00 09:00:00 WONDIFUL ity o f [facility] 2020-12-16 2020-12-16 Outpatient Scott WOOD [facility] [id number] Univers 10:30:00 10:30:00 MG [id number] [facility] 2020-12-16 2020-12-16 Outpatient Scott WOOD [facility] [id number] Univers 10:30:00 10:30:00 MG [facility] 2020-12-15 2020-12-15 Outpatient STLMLC STLMLC [id number] Common 00:00:00 00:00:00 [facility] 2020-12-15 2020-12-15 Outpatient STLMLC STLMLC [id number] Common 00:00:00 00:00:00 [facility] 2020-12-06 2020-12-06 Outpatient Scott WOOD [facility] [id number] Univers 15:30:00 15:30:00 MG [id number] [facility] 2020-12-06 2020-12-06 Outpatient Scott WOOD [facility] [id number] Univers 15:30:00 15:30:00 MG [facility] 2020-11-25 2020-11-25 Outpatient ROYCE PRUETT [facility] [id number] Univers 09:00:00 09:00:00 [id number] [facility] 2020-11-25 2020-11-25 Outpatient ROYCE DELEON [facility] [id number] Univers 09:00:00 [facility] 2020-11-11 Outpatient ROYCE DELEON [facility] [id number] Univers 15:30:00 15:30:00 [id number] [facility] 2020-11-[facility] 2020-11-11 Outpatient ROYCE DELEON [facility] [id number] Univers 15:30:00 [facility] 2020-11-04 2020-11-04 Outpatient Scott PHILLIPS [facility] [id number] Univers 10:00:00 10:00:00 EMELYN [id number] [facility] 2020-11-04 2020-11-04 Outpatient Scott PHILLIPS [facility] [id number] Univers 10:00:00 10:00:00 EMELYN [facility] 2020-10-28 2020-10-28 Outpatient Scott WOOD [facility] [id number] Univers 10:45:00 10:45:00 MG [id number] [facility] 2020-10-28 2020-10-28 Outpatient Scott WOOD [facility] [id number] Univers 10:45:00 10:45:00 MG [facility] 2020-10-25 2020-10-25 Outpatient Scott WOOD [facility] [id number] Univers 14:45:00 14:45:00 MG [id number] [facility] 2020-10-25 2020-10-25 Outpatient Scott WOOD [facility] [id number] Univers 14:45:00 14:45:00 MG [facility] 2020-10-15 2020-10-15 Outpatient Scott WOOD [facility] [id number] Univers 10:00:00 10:00:00 MG [id number] [facility] 2020-10-15 2020-10-15 Outpatient Scott WOOD [facility] [id number] Univers 10:00:00 10:00:00 MG [facility] 2020-10-082020-10-08 Outpatient R [facility] [id number] Univers 09:30:00 09:30:00 [id number] [facility] 2020-10-08 2020-10-08 Outpatient R JA [facility] [id number] Univers 09:30:00 09:30:00 ESTER [facility] 2020-10-08 2020-10-08 Outpatient R BRITTNEY, [facility] [id number] Univers 09:15:00 09:15:00 OSCAR [facility] 2020-09-24 2020-09-25 Outpatient nullFlavo MNA [id number] Memoria 19:00:00 05:59:59 r Neurology 10 l Nik Segovia 2020-09-24 2020-09-25 Outpatient nullFlavo MNA [id number] Memoria 19:00:00 05:59:59 r Neurology 10 l Nik Segovia 2020-09-24 2020-09-24 Outpatient VIRGILIO Espinal MHMISCHER [id number] 13:00:00 23:59:59 Malcom 10 Santos 2020-09-24 2020-09-24 Outpatient MHIE MHIE [id number] Memoria 13:00:00 13:00:00 10 l [place] 2020-09-24 2020-09-24 Outpatient Scott WOOD [facility] [id number] Univers 09:45:00 09:45:00 MG [id number] [facility] 2020-09-24 2020-09-24 Outpatient Scott WOOD [facility] [id number] Univers 09:45:00 09:45:00 MG [facility] 2020-09-21 2020-09-21 Outpatient Scott PERES [facility] [id number] Univers 14:00:00 14:00:00 ESTER [id number] [facility] 2020-09-21 2020-09-21 Outpatient Scott PERES [facility] [id number] Univers 00:00:00 00:00:00 ESTER [facility] 2020-09-09 2020-09-09 [facility] [id number] Univers 09:15:00 09:15:00 ESTER [id number] [facility] 2020-09-09 2020-09-09 Outpatient R JA, [facility] [id number] Univers 09:15:00 09:15:00 ESTER [facility] 2020-09-06 2020-09-06 Ambulatory nullFlavo MNA [id number] Memoria 16:30:00 16:30:00 Pre-Reg r Neurology 09 l [place] 2020-09-06 2020-09-06 Ambulatory nullFlavo MNA [id number] Memoria 16:30:00 16:30:00 Pre-Reg r Neurology 09 l [place] 2020-09-06 2020-09-06 Outpatient MHIE MHIE [id number] Memoria 10:30:00 10:30:00 09 l [place] 2020-09-06 2020-09-06 [id number] 10:30:00 10:30:00 Malcom 09 Santos 2020-07-14 2020-07-14 Outpatient R [facility] [id number] Univers 19:00:00 19:00:00 [id number] [facility] 2020-07-14 2020-07-14 Outpatient R CHRISTIANNE [facility] [id number] Univers 19:00:00 19:00:00 BROOKE gerbercrow o f [facility] 2020-07-02 2020-07-02 Appointrosaura JEAN BAPTISTE, [facility] Orthopedics [id number] [place] 14:30:00 14:30:00 t; RAJI JEAN BAPTISTE, - Sugar Phys ici RAJI, DPRaeann [place] 2 ans DPM 2020-06-01 2020-06-01 Ambulatory nullFlavo MNA [id number] Memoria 20:00:00 20:00:00 Pre-Reg r Neurology 08 l [place] 2020-06-01 2020-06-01 Ambulatory nullFlavo MNA [id number] Memoria 20:00:00 20:00:00 Pre-Reg r Neurology 08 l [place] 2020-06-01 2020-06-01 Outpatient MHIE MHIE [id number] Memoria 14:00:00 14:00:00 08 l [place] 2020-06-01 2020-06-01 [facility] [id number] 14:00:00 14:00:00 Malcomlindy Graham 2020-05-31 [facility] [id number] [place] 10:00:00 10:00:00 t; RAJI JEAN BAPTISTE, - Sugar Phys ici RAJI, DPM [place] 2 ans DPM 2020-05-10 2020-05-[facility] [id number] [place] 09:00:00 09:00:00 t; RAJI JEAN BAPTISTE, - Sugar Phys ici RAJI, DPM [place] 2 ans DPM 2020-04-27 2020-04-27 [facility] [id number] [place] 14:45:00 14:45:00 t; RAJI JEAN BAPTISTE, - Sugar Phys ici RAJI, DPM [place] 2 ans DPM 2020-03-29 2020-03-29 [facility] [id number] [place] 13:00:00 13:00:00 t; RAJI JEAN BAPTISTE, - Sugar Phys ici RAJI, DPM [place] 2 ans DPM 2020-03-08 2020-03-08 [facility] MARKEL [facility] Orthopedics [id number] [place] 11:15:00 11:15:00 t; RAJI JEAN BAPTISTE, - Sugar Phys ici RAJI, DPM [place] 2 ans DPM 2020-02-26 2020-02-26 Outpatient [facility] [id number] Memoria 10:46:09 16:30:00 r [facility] 2020-02-26 2020-02-26 [facility] [id number] Memoria 10:46:09 16:30:00 r [facility] 2020-02-26 2020-02-26 [facility] [id number] Memoria 05:46:09 11:30:00 r l [place] 2020-02-26 2020-02-26 Outpatient Markel [id number] 05:46:09 11:30:00 Raji 8 2020-02-26 2020-02-[facility] [id number] [place] 10:30:00 10:30:00 t; MARKELRAJI, - Sugar Phys ici RAJI, DPM [place] 2 ans DPM 2020-02-02 2020-02-02 AppointNEAL Narvaez Orthopedics [id number] [place] 10:45:00 10:45:00 t; RAJI JEAN BAPTISTE, - Sugar Phys ici RAJI, DPM [place] 2 ans DPM 2020-01-15 2020-01-16 Outpatient nullFlavo MNA [id number] Memoria 20:00:00 04:59:59 r Neurology 07 l [place] 2020-01-15 2020-01-16 Outpatient nullFlavo MNA [id number] Memoria 20:00:00 04:59:59 r Neurology 07 l [place] 2020-01-15 2020-01-15 Outpatient [facility]ILIO Espinal [facility] [id number] 15:00:00 23:59:59 Malcom Neelima Santos 2020-01-15 2020-01-15 Ambulatory nullFlavo MNA [id number] Memoria 20:00:00 20:00:00 Pre-Reg r Neurology 06 l [place] 2020-01-15 2020-01-15 Ambulatory nullFlavo MNA [id number] Memoria 20:00:00 20:00:00 Pre-Reg r Neurology 06 l [place] 2020-01-15 2020-01-15 Outpatient MHIE MHIE [id number] Memoria 15:00:00 15:00:00 06 l [place] 2020-01-15 2020-01-15 Outpatient MHIE MHIE [id number] Memoria 15:00:00 15:00:00 07 l [place] 2020-01-15 2020-01-15 Outpatient [facility]ILIO Espinal [facility] [id number] 15:00:00 15:00:00 Malcom 06 Santos 2019-12-02 2019-12-03 Outpatient nullFlavo MNA [id number] Memoria 20:30:00 04:59:59 r Neurology 05 l [place] 2019-12-02 2019-12-03 Outpatient nullFlavo MNA [id number] Memoria 20:30:00 04:59:59 r Neurology 05 l [place] 2019-12-02 2019-12-02 Outpatient DIMA EspinalMISCHER MHMISCHER [id number] 15:30:00 23:59:59 Malcom Rere Graham 2019-12-02 2019-12-02 Outpatient MHIE MHIE [id number] Memoria 15:30:00 15:30:00 05 violet Segovia 2019-05-23 2019-05-23 Ambulatory nullFlavo MNA [id number] Memoria 19:15:00 19:15:00 Pre-Reg r Neurology 04 l Nik [place] 2019-05-23 2019-05-23 Ambulatory nullFlavo MNA [id number] Memoria 19:15:00 19:15:00 Pre-Reg r Neurology 04 l Nik [place] 2019-05-23 2019-05-23 Outpatient MHIE MHIE [id number] Memoria 13:15:00 13:15:00 04 violet [place] 2019-05-23 2019-05-23 Outpatient Kylie MHDESCHER MHMISCHER [id number] 13:15:00 13:15:00 Malcom Connor Santos 2019-03-23 2019-03-23 Emergency Harish, [facility] [id number] 12:37:57 13:11:00 Palomo Dumont [id number] [place] [id number] [place] [id number] 2019-03-23 2019-03-23 Orders Doctor DUEÑAS [id number] 00:00:00 00:00:00 Only Unassigned, MARIA ELENA [id number] [place] [id number] [id number] [facility] 2019-02-14 2019-02-15 Outpatient nullFlavo MNA [id number] Memoria 20:00:00 04:59:59 r Neurology 02 [place] 2019-02-14 2019-02-15 Outpatient nullFlavo MNA [id number] Memoria 20:00:00 04:59:59 r Neurology 02 l [place] 2019-02-14 2019-02-14 Outpatient Kylie, MHMISCHER MHMISCHER [id number] 15:00:00 23:59:59 Malcom Serge Santos 2019-02-14 2019-02-14 Outpatient MHIE MHIE [id number] Memoria 15:00:00 15:00:00 02 violet [place] 2018-12-24 2018-12-25 Outpatient nullFlavo MNA [id number] Memoria 20:15:00 04:59:59 r Neurology 03 violet Segovia 2018-12-24 2018-12-25 Outpatient nullFlavo MNA [id number] Memoria 20:15:00 04:59:59 r Neurology 03 [place] 2018-12-24 2018-12-24 Outpatient DIMA EspinalDESCHER [facility] [id number] 15:15:00 23:59:59 Malcom 03 Santos 2018-12-24 2018-12-24 Outpatient MHIE IE [id number] Memoria 15:15:00 15:15:00 03 violet Segovia 2018-12-20 2018-12-21 Outpatient nullFlavo MNA [id number] Memoria 18:45:00 04:59:59 r Neurology 01 violet [place] 2018-12-20 2018-12-21 Outpatient nullFlavo MNA [id number] Memoria 18:45:00 04:59:59 r Neurology 01 violet [place] 2018-12-20 2018-12-20 Outpatient DIMA EspinalDESCHER [facility] [id number] 13:45:00 23:59:59 Malcom Santos 2018-12-20 2018-12-20 Outpatient MHIE DIMAIE [id number] Memoria 13:45:00 13:45:00 01 violet Segovia 2018-11-22 2018-11-23 Outpatient nullFlavo MNA [id number] Memoria 19:45:00 04:59:59 r Neurology 00 l [place] 2018-11-22 2018-11-23 Outpatient nullFlavo MNA [id number] Memoria 19:45:00 04:59:59 r Neurology 00 Nik Segov[place] 2018-11-22 2018-11-22 Outpatient VIPUL EspinalSCHER MISCHER [id number] 14:45:00 23:59:59 Malcom 00 Santos 2018-11-22 2018-11-22 Outpatient MHIE MHIE [id number] Memoria 14:45:00 14:45:00 00 [facility] Results Test Description Test Time Test Comments Results Result Comments Source LABORATORY 2020-02-18 17:38:00 Test Item Value Reference Range Interpretation Comme nts Glucose Lvl (test code = Glucose Lvl) 89 70-99 [place] 706700-08-05 17:38:00 Test Item Value Reference Range Interpretation Comments BUN (test code = BUN) 12 7-22 [place] 706700-08-05 17:38:00 Test Item Value Reference Range Interpretation Comments Creatinine (test code = Creatinine) 0.79 0.50-1.40 [place] 706700-08-05 17:38:00 Test Item Value Reference Range Interpretation Comments Sodium Level (test code = Sodium Level) 141 135-145 [place] 706700-08-05 17:38:00 Test Item Value Reference Range Interpretation Comments Potassium Level (test code = Potassium 4.5 3.5-5.1 Level) [place] 706700-08-05 17:38:00 Test Item Value Reference Range Interpretation Comments Chloride Level (test code = Chloride 108 95-109 Level) [place] 706700-08-05 17:38:00 Test Item Value Reference Range Interpretation Comments Total Carbon Dioxide Level (test code = 24 24-32 Total Carbon Dioxide Level) [place] 706700-08-05 17:38:00 Test Item Value Reference Range Interpretation Comments AGAP (test code = AGAP) 13.5 10.0-20.0 [place] 706700-08-05 17:38:00 Test Item Value Reference Range Interpretation Comments Calcium Level (test code = Calcium 9.5 8.5-10.5 Level) [place] 706700-08-05 17:38:00 Test Item Value Reference Range Interpretation Comments eGFR (test code = eGFR) 92 [place] 706700-08-05 17:38:00 Test Item Value Reference Range Interpretation Comments Results (test code = Reported (02/18/20 12:38 Results) PM) [place] 706700-08-05 17:38:00 Test Item Value Reference Range Interpretation Comments White Blood Count (test code = White 6.4 3.7-10.4 Blood Count) [place] 706700-08-05 17:38:00 Test Item Value Reference Range Interpretation Comments Red Blood Cell Count (test code = Red 4.37 4.20-5.40 Blood Cell Count) [facility]hozunfJBJXUJJRIH0320-28-57 17:38:00 Test Item Value Reference Range Interpretation Comments Hemoglobin (test code = Hemoglobin) 12.7 12.0-16.0 [facility] CenterBnifxulGSGSCFWBQI5917-65-03 17:38:00 Test Item Value Reference Range Interpretation Comments Hematocrit (test code = Hematocrit) 38.3 36.0-48.0 [facility] CenterNgbaphcCHFJLNXXEU4866-26-36 17:38:00 Test Item Value Reference Range Interpretation Comments MCV (test code = MCV) 87.5 80.0-98.0 [facility] CenterWvvuvktWUNBIHBCSO2773-53-73 17:38:00 Test Item Value Reference Range Interpretation Comments MCH (test code = MCH) 29.2 pg 27.0-31.0 [facility] CenterHtstwlmUIEHUWBMXW1201-69-47 17:38:00 Test Item Value Reference Range Interpretation Comments MCHC (test code = MCHC) 33.3 32.0-36.0 [facility] CenterVbgvgegGYPOIIFRUF2091-75-62 17:38:00 Test Item Value Reference Range Interpretation Comments RDW (test code = RDW) 14.2 11.5-14.5 [facility] CenterMrxqfyrGSLFEYBIKP5073-52-26 17:38:00 Test Item Value Reference Range Interpretation Comments Platelet (test code = Platelet) 300 133-450 [facility] CenterYzowqfpWFBRWUXCTD9104-22-27 17:38:00 Test Item Value Reference Range Interpretation Comments MPV (test code = MPV) 8.3 7.4-10.4 [facility] CenterNgzlyijLWMGAQIPPN3137-14-84 17:38:00 Test Item Value Reference Range Interpretation Comments NRBCs # (test code = NRBCs #) 0.1 0.4-2.2 [facility] CenterBmidqjlZXMAOOVGJG2046-44-40 17:38:00 Test Item Value Reference Range Interpretation Comments Results (test code = Reported (02/18/20 12:38 Results) PM) [facility] CenterEsomsryCQEGTLJGQR2210-46-59 17:38:00 Test Item Value Reference Range Interpretation Comments Neutrophil % (test code = Neutrophil %) 62.2 45.0-75.0 [facility] CenterMqefzsoREJYUFORCS6449-45-99 17:38:00 Test Item Value Reference Range Interpretation Comments Monocyte % (test code = Monocyte %) 6.8 2.0-12.0 [facility] CenterMjcrgbbXMNZEGWVVT1480-69-23 17:38:00 Test Item Value Reference Range Interpretation Comments Lymphocyte % (test code = Lymphocyte %) 26.9 20.0-40.0 [facility] CenterNiecrxwJUMTGDBHDM9563-99-09 17:38:00 Test Item Value Reference Range Interpretation Comments Eosinophil # (test code 3.6 See_Comment [Au tomated message] The = Eosinophil #) system which generated this result tra nsmitted reference range : <=4.0. The reference r akran was not used to int erpret this result as normal/abnormal . [facility] CenterSuihaoeNAEUJJSFQR3500-05-19 17:38:00 Test Item Value Reference Range Interpretation Comments Basophil % (test code = 0.5 See_Comment [Au tomated message] The Basophil %) system which ge nerated this result tra nsmitted reference range : <=1.0. The reference r karan was not used to int erpret this result as normal/abnormal . [facility] CenterEcungliLQUMEWSWUI2258-66-63 17:38:00 Test Item Value Reference Range Interpretation Comments Neutrophil # (test code = Neutrophil #) 4.0 1.5-8.1 [facility] CenterIigytliMSBIVTNYXD8183-20-90 17:38:00 Test Item Value Reference Range Interpretation Comments Lymphocyte # (test code = Lymphocyte #) 1.7 1.0-5.5 [facility] CenterJmqogkdZHWRFELJNQ1197-16-74 17:38:00 Test Item Value Reference Range Interpretation Comments Monocyte # (test code = 0.4 See_Comment [Au tomated message] The Monocyte #) system which ge nerated this result tra nsmitted reference range : <=0.8. The reference r karan was not used to int erpret this result as normal/abnormal . [facility]MojzzuxHLYJFDZAGT9386-50-32 17:38:00 Test Item Value Reference Range Interpretation Comments Eosinophil % (test code 0.2 See_Comment [Au tomated message] The = Eosinophil %) system which generated this result tra nsmitted reference range : <=0.5. The reference r karan was not used to int erpret this result as normal/abnormal . [facility] CenterDykamppOQYAZQMDDD7226-03-49 17:38:00 Test Item Value Reference Range Interpretation Comments Results (test code = Reported (02/18/20 12:38 Results) PM) [place] [address]578-08-05 17:38:00 Test Item Value Reference Range Interpretation Comments Glucose Lvl (test code = Glucose Lvl) 89 70-99 [place] 706700-08-05 17:38:00 Test Item Value Reference Range Interpretation Comments BUN (test code = BUN) 12 7-22 [facility] CenterFjyxgtgQMWKCVFXLE1903-17-03 17:38:00 Test Item Value Reference Range Interpretation Comments Creatinine (test code = Creatinine) 0.79 0.50-1.40 [facility] CenterEffmoflQUBDEIFUVK2868-22-60 17:38:00 Test Item Value Reference Range Interpretation Comments Sodium Level (test code = Sodium Level) 141 135-145 [facility] CenterHwcrkvuXSKDYLIRSB5846-61-25 17:38:00 Test Item Value Reference Range Interpretation Comments Potassium Level (test code = Potassium 4.5 3.5-5.1 Level) [facility] CenterDewtalwFPQNXOFBLW1751-71-56 17:38:00 Test Item Value Reference Range Interpretation Comments Chloride Level (test code = Chloride 108 95-109 Level) [facility] [id number] 17:38:00 Test Item Value Reference Range Interpretation Comments Total Carbon Dioxide Level (test code = 24 24-32 Total Carbon Dioxide Level) [facility] [id number] 17:38:00 Test Item Value Reference Range Interpretation Comments AGAP (test code = AGAP) 13.5 10.0-20.0 [place] [id number] 17:38:00 Test Item Value Reference Range Interpretation Comments Calcium Level (test code = Calcium 9.5 8.5-10.5 Level) [facility]huszaxRLATUCGRPM1335-63-07 17:38:00 Test Item Value Reference Range Interpretation Comments eGFR (test code = eGFR) 92 [facility] CenterFrmsthnRRNNFKABCK4420-99-12 17:38:00 Test Item Value Reference Range Interpretation Comments Results (test code = Reported (02/18/20 12:38 Results) PM) [place] [id number] 17:38:00 Test Item Value Reference Range Interpretation Comments White Blood Count (test code = White 6.4 3.7-10.4 Blood Count) [facility] CenterZbxpjkiENYXTKAZGO1583-29-43 17:38:00 Test Item Value Reference Range Interpretation Comments Red Blood Cell Count (test code = Red 4.37 4.20-5.40 Blood Cell Count) [facility] CenterZofvwumAZPFBGYTDU7966-94-15 17:38:00 Test Item Value Reference Range Interpretation Comments Hemoglobin (test code = Hemoglobin) 12.7 12.0-16.0 [facility] CenterPiclyiuBOAURBEAMV6942-85-97 17:38:00 Test Item Value Reference Range Interpretation Comments Hematocrit (test code = Hematocrit) 38.3 36.0-48.0 [facility] CenterYlrsmgkHJPOSWZLUI6554-62-65 17:38:00 Test Item Value Reference Range Interpretation Comments MCV (test code = MCV) 87.5 80.0-98.0 [facility] CenterKsrlcbwZJOAXDKZVE5995-45-33 17:38:00 Test Item Value Reference Range Interpretation Comments MCH (test code = MCH) 29.2 pg 27.0-31.0 [facility] CenterWxgqkfbIYEMYEYGGQ6575-45-66 17:38:00 Test Item Value Reference Range Interpretation Comments MCHC (test code = MCHC) 33.3 32.0-36.0 [facility] CenterZrdegsoMVEHMZNOXE4118-37-77 17:38:00 Test Item Value Reference Range Interpretation Comments RDW (test code = RDW) 14.2 11.5-14.5 [facility] CenterFykbftzJLJAEDPLIL3567-81-74 17:38:00 Test Item Value Reference Range Interpretation Comments Platelet (test code = Platelet) 300 133-450 [facility] CenterYprbgwbUABISHZVHE2862-03-78 17:38:00 Test Item Value Reference Range Interpretation Comments MPV (test code = MPV) 8.3 7.4-10.4 [facility] CenterEnqvlvfRQZHYTPRFR8759-10-01 17:38:00 Test Item Value Reference Range Interpretation Comments NRBCs # (test code = NRBCs #) 0.1 0.4-2.2 [facility] CenterYwhguqeLSRWXUARHV6687-98-38 17:38:00 Test Item Value Reference Range Interpretation Comments Results (test code = Reported (02/18/20 12:38 Results) PM) [facility] CenterYjdadzbFBVCYCUOIZ2066-16-27 17:38:00 Test Item Value Reference Range Interpretation Comments Neutrophil % (test code = Neutrophil %) 62.2 45.0-75.0 [facility] CenterXkamktyVCQWLXYSEC8716-75-50 17:38:00 Test Item Value Reference Range Interpretation Comments Monocyte % (test code = Monocyte %) 6.8 2.0-12.0 [facility] CenterOrxpfmfRNTQHKBFQS7611-75-83 17:38:00 Test Item Value Reference Range Interpretation Comments Lymphocyte % (test code = Lymphocyte %) 26.9 20.0-40.0 [facility] CenterCnbkheqLVDHDEGMWT3516-41-70 17:38:00 Test Item Value Reference Range Interpretation Comments Eosinophil # (test code 3.6 See_Comment [Au tomated message] The = Eosinophil #) system which generated this result tra nsmitted reference range : <=4.0. The reference r karan was not used to int erpret this result as normal/abnormal . [facility] CenterQtbmwypHTQMDQTFEW5202-84-91 17:38:00 Test Item Value Reference Range Interpretation Comments Basophil % (test code = 0.5 See_Comment [Au tomated message] The Basophil %) system which ge nerated this result tra nsmitted reference range : <=1.0. The reference r karan was not used to int erpret this result as normal/abnormal . [facility] CenterVdffcjlPOCLKPYSNO7154-32-56 17:38:00 Test Item Value Reference Range Interpretation Comments Neutrophil # (test code = Neutrophil #) 4.0 1.5-8.1 [facility] CenterPryyolaWQDQOWSXYZ6929-32-22 17:38:00 Test Item Value Reference Range Interpretation Comments Lymphocyte # (test code = Lymphocyte #) 1.7 1.0-5.5 [facility] CenterPobuzqmXCRFOPJDQE4464-00-37 17:38:00 Test Item Value Reference Range Interpretation Comments Monocyte # (test code = 0.4 See_Comment [Au tomated message] The Monocyte #) system which ge nerated this result tra nsmitted reference range : <=0.8. The reference r karan was not used to int erpret this result as normal/abnormal . [facility] CenterYdgcwmoBELJBUMEHW3826-59-18 17:38:00 Test Item Value Reference Range Interpretation Comments Eosinophil % (test code 0.2 See_Comment [Au tomated message] The = Eosinophil %) system which generated this result tra nsmitted reference range : <=0.5. The reference r karan was not used to int erpret this result as normal/abnormal . [facility] HospitalNagdwgiIMAQGGKYTC0151-06-45 17:38:00 Test Item Value Reference Range Interpretation Comments Results (test code = Reported (02/18/20 12:38 Results) PM) [facility]
--- NOTE | 2022-03-14 12:08 | RAD REPORT ---
EXAM DESCRIPTION: Arian Knowles (2 Views)03/14/2022 11:35 am CLINICAL HISTORY: Cough COMPARISON: August 2021 FINDINGS: The lungs appear clear of acute infiltrate. The heart is normal size IMPRESSION: No acute abnormalities displayed
[2022-03-14 12:24] LABS: Urine Blood Trace-lysed (Negative); Urine Glucose Negative (Negative); Urine Protein Negative (Negative); Urine Specific Gravity >=1.030 (1.005-1.030)
[2022-03-14] MEDS ORDERED: BENZONATATE 100 MG CAP PO ONE (12:24)
--- NOTE | 2022-03-14 13:00 | ER ---
Nurse's Notes [facility] Name: Trudi Villavicencio Age: 46 yrs Sex: Female : 1975 Arrival Date: 03/14/2022 Time: 10:51 Bed DIS1 Private MD: Diagnosis: Acute upper respiratory infection, unspecified Presentation: 03/14 10:54 Chief complaint: Patient states: Sunday night started sneezing and my throat hurt. tw2 Sunday i woke up with fever, burning up and had chills. took tylenol. +cough +congestion +sneezing +fever, took otc medicine it helped some. i also did 3 breathing treatments and it is helping but i am still coughing and congested. Coronavirus screen: chills, congestion, sore throat, Client presents with at least one sign or symptom that may indicate coronavirus-19. Standard/surgical mask placed on the client. Provider contacted for isolation considerations. Ebola Screen: Patient denies travel to an Ebola-affected area in the 21 days before illness onset. Initial Sepsis Screen: Does the patient meet any 2 criteria? No. Patient's initial sepsis screen is negative. Does the patient have a suspected source of infection? No. Patient's initial sepsis screen is negative. Risk Assessment: Do you want to hurt yourself or someone else? Patient reports no desire to harm self or others. Onset of symptoms was March 14, 2022. 10:54 Method Of Arrival: Ambulatory tw2 10:54 Acuity: HOWIE 4 tw2 Triage Assessment: 11:01 General: Appears in no apparent distress. obese, well groomed, Behavior is calm, tw2 cooperative, appropriate for age. Pain: Denies pain. EENT: Reports nasal congestion nasal discharge. Neuro: Level of Consciousness is awake, alert, obeys commands, Oriented to person, place, time, situation. Respiratory: Reports cough that is. 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 - Social history:: Smoking status: Patient denies any tobacco usage or history of. Screenin:01 Abuse screen: Denies threats or abuse. Nutritional screening: No deficits noted. tw2 Tuberculosis screening: No symptoms or risk factors identified. Fall Risk None identified. Assessment: 13:13 Reassessment: Patient appears in no apparent distress at this time. No changes from tw2 previously documented assessment. Patient and/or family updated on plan of care and expected duration. Pain level reassessed. Patient is alert, oriented x 3, equal unlabored respirations, skin warm/dry/pink. Vital Signs: 10:54 BP 139 / 84; Pulse 84; Resp 17; Temp 97.6(O); Pulse Ox 98% on R/A; tw2 ED Course: 10:51 Patient arrived in ED. mr 10:54 Arm band placed on. tw2 10:55 Giuseppe Matthews PA is PHCP. laila 10:55 Sunil Douglas DO is Attending Physician. cp 11:00 Triage completed. tw2 11:37 XRAY Chest Pa And Lat (2 Views) In Process Unspecified. EDMS 13:10 Kellee Tran, RN is Primary Nurse. iw 13:13 Patient has correct armband on for positive identification. tw2 13:13 No provider procedures requiring assistance completed. Patient did not have IV access tw2 during this emergency room visit. Administered Medications: 12:20 Drug: Tessalon Perle (benzonatate) 200 mg Route: PO; tw2 13:13 Follow up: Response: No adverse reaction tw2 Medication: 13:13 VIS not applicable for this client. tw2 Outcome: 13:00 Discharge ordered by MD. cp 13:13 Discharged to home ambulatory. tw2 13:13 Condition: stable 13:13 Discharge instructions given to patient, Instructed on discharge instructions, follow up and referral plans. medication usage, Demonstrated understanding of instructions, follow-up care, medications, Prescriptions given X 2. 13:13 Patient left the ED. tw2 Signatures: Dispatcher [employer] Aileen Landaverde Kellee Tran, RN RN iw Giuseppe Matthews PA PA cp Wise, Tara, RN RN tw2
--- NOTE | 2022-03-14 13:01 | EDPHYS ---
Physician Documentation [facility] Name: Trudi Villavicencio Age: 46 yrs Sex: Female : 1975 Arrival Date: 03/14/2022 Time: 10:51 Bed DIS1 Private MD: ED Physician Sunil Douglas HPI: 03/14 11:15 This 46 yrs old Female presents to ER via Ambulatory with complaints of Cough. cp 11:15 The patient or guardian reports cough, that is constant, with productive sputum. Onset: cp The symptoms/episode began/occurred 4 day(s) ago. Severity of symptoms: in the emergency department the symptoms are unchanged, despite home interventions. 11:15 Associated signs and symptoms: Pertinent positives: earache, rhinorrhea, sore throat, cp Pertinent negatives: diarrhea, fever, vomiting. 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 - Social history:: Smoking status: Patient denies any tobacco usage or history of. ROS: 11:20 Constitutional: Negative for body aches, fever, poor PO intake. cp 11:20 Eyes: Negative for injury, pain, redness, and discharge. cp 11:20 ENT: Positive for rhinorrhea, sore throat, Negative for drainage from ear(s), ear pain, difficulty swallowing, difficulty handling secretions. 11:20 Cardiovascular: Negative for chest pain, edema, palpitations. 11:20 Respiratory: Positive for cough, "sounds productive", Negative for shortness of breath, wheezing. 11:20 Abdomen/GI: Negative for abdominal pain, nausea and vomiting, diarrhea, constipation. cp 11:20 Skin: Negative for rash. cp 11:20 Neuro: Negative for altered mental status, weakness. 11:20 All other systems are negative. Exam: 11:25 Constitutional: The patient appears in no acute distress, alert, awake, non-toxic, well cp developed, well nourished, obese. 11:25 Head/Face: Normocephalic, atraumatic. cp 11:25 Eyes: Periorbital structures: appear normal, Conjunctiva: normal, no exudate, no injection, Sclera: no appreciated abnormality, Lids and lashes: appear normal, bilaterally. 11:25 ENT: External ear(s): are unremarkable, Ear canal(s): are normal, clear, TM's: dullness, bilaterally, Nose: nasal drainage, that is moderate, and is seen coming from both nares, that is clear, Mouth: Lips: moist, Oral mucosa: moist, Posterior pharynx: Airway: no evidence of obstruction, patent, Tonsils: no enlargement, no exudate, swelling, is not appreciated, erythema, that is mild, exudate, is not appreciated, Voice: is normal. 11:25 Neck: ROM/movement: is normal, is supple, without pain, no range of motions limitations, no meningismus. 11:25 Chest/axilla: Inspection: normal. 11:25 Cardiovascular: Rate: normal, Rhythm: regular. 11:25 Respiratory: the patient does not display signs of respiratory distress, Respirations: normal, no use of accessory muscles, no retractions, labored breathing, is not present, Breath sounds: decreased breath sounds, are not appreciated, stridor, is not appreciated, + upper airway congestion. wheezing: is not appreciated. 11:25 Abdomen/GI: Exam negative for discomfort, distension, guarding, Inspection: abdomen appears normal. Vital Signs: 10:54 BP 139 / 84; Pulse 84; Resp 17; Temp 97.6(O); Pulse Ox 98% on R/A; tw2 MDM: 12:00 Differential Diagnosis: Bronchitis Influenza Asthma Exacerbation Viral Syndrome cp Pneumonia Other COVID-19, strep throat. 12:56 Patient medically screened. cp 13:00 Data reviewed: vital signs, nurses notes, lab test result(s), radiologic studies, plain cp films. 13:00 Test interpretation: by ED physician or midlevel provider: plain radiologic studies. cp Counseling: I had a detailed discussion with the patient and/or guardian regarding: the historical points, exam findings, and any diagnostic results supporting the discharge/admit diagnosis, lab results, radiology results, to return to the emergency department if symptoms worsen or persist or if there are any questions or concerns that arise at home. Special discussion: I discussed with the patient/guardian that the patient's current presentation does not indicate dosing of antibiotics. They should follow-up with their primary care provider and return if the symptoms persist or progress. 03/14 11:11 Order name: COVID-19 SARS RT PCR (Document "Date of Onset" if Symptomatic); Complete cp Time: 12:45 03/14 11:11 Order name: Influenza Screen (a \\T\\ B); Complete Time: 12:45 cp 03/14 11:11 Order name: Strep; Complete Time: 12:45 cp 03/14 12:17 Order name: Throat Culture EDMS 03/14 12:25 Order name: Urine Dipstick-Ancillary; Complete Time: 12:45 EDMS 03/14 12:52 Interpretation: Normal except: UBLD Trace-lysed; UESTR Trace. cp 03/14 11:11 Order name: XRAY Chest Pa And Lat (2 Views); Complete Time: 12:46 cp 03/14 12:52 Interpretation: Report reviewed. 03/14 11:11 Order name: Urine Dipstick-Ancillary (obtain specimen); Complete Time: 12:23 cp 03/14 11:11 Order name: Urine Test (obtain specimen); Complete Time: 12:23 cp Administered Medications: 12:20 Drug: Tessalon Perle (benzonatate) 200 mg Route: PO; tw2 13:13 Follow up: Response: No adverse reaction tw2 Disposition Summary: 03/14/22 13:00 Discharge Ordered Location: Home cp Problem: new cp Symptoms: have improved cp Condition: Stable cp Diagnosis - Acute upper respiratory infection, unspecified cp Followup: cp - With: Private Physician - When: 2 - 3 days - Reason: Worsening of condition Discharge Instructions: - Discharge Summary Sheet cp - Upper Respiratory Infection, Adult cp Forms: - Medication Reconciliation Form cp - Thank You Letter cp - Antibiotic Education cp - Prescription Opioid Use cp Prescriptions: - Bromfed DM 2-30-10 mg/5 mL Oral syrup - take 10 milliliter by ORAL route every 6 hours; 180 milliliter; Refills: 0, cp Product Selection Permitted - Albuterol Sulfate 2.5 mg /3 mL (0.083 %) Inhalation Solution for Nebulization - inhale 1 unit by NEBULIZATION route every 8 hours As needed; 1 box; Refills: 0, cp Product Selection Permitted Addendum: 03/15/2022 15:12 Co-signature as Attending Physician, Sunil Douglas DO I was immediately available onsite m s3 in the emergency department for consultation in the care of the patient. Signatures: Dispatcher [employer] EDMS Giuseppe Matthews PA PA cp Wise, Tara, RN RN tw2 Sunil Douglas DO DO ms3
[2022-03-14 13:50] VITALS: BP 139/84; TEMP 97.6; O2SAT 98
== END 2022-03-14 13:13 | disposition home or self-care (01) ==
LOC: ER 10:48
DX: J06.9 Acute upper respiratory infection, unspecified (principal); Z20.822 Contact with and (suspected) exposure to COVID-19; Z88.5 Allergy status to narcotic agent; Z88.6 Allergy status to analgesic agent; Z88.8 Allergy status to other drugs, medicaments and biological substances
CPT/HCPCS: 71046; 81003; 87070; 87081; 87804; U0003

== ENCOUNTER 2022-04-02 18:04 | Emergency (ER) | payer SELFPAY ==
--- OUTSIDE RECORDS SUMMARY | 2022-04-02 18:11 | XMS REPORT | Continuity of Care Document ---
:1975 Author Organization [facility] t Address [address] [place] [address] Care Team Providers Name Role Phone Asked, No Pcp Primary Care Physician Unavailable Danie Garcia Attending Clinician Unavailable ESTER PERES Attending Clinician Unavailable HAMZAH CAMPBELL Attending Clinician Unavailable CAT PRITCHETT Attending Clinician Unavailable Cat Pritchett DO Attending Clinician ALFONZO ALARCON Attending Clinician Unavailable Marina PERALTA, Tony Hdz Attending Clinician Alfonzo Alarcon MD Attending Clinician [phone] Malcom Espinal Attending Clinician ROYCE PRUETT Attending Clinician Unavailable Ester Peres MD Attending Clinician MG WOOD Attending Clinician Unavailable DEMETRIA JAFFE Attending Clinician Unavailable THANIA OLSON Attending Clinician Unavailable EMELYN PHILLIPS Attending Clinician Unavailable OSCAR LUGO Attending Clinician Unavailable BROOKE FAUST Attending Clinician Unavailable RAJI JEAN BAPTISTE, DPRaeann Attending Clinician Unavailable Raji Jean Baptiste Attending Clinician Palomo Cervantes Attending Clinician Doctor Unassigned, Catlin Attending Clinician Unavailable ESTER PERES Admitting Clinician Unavailable Raji Jean Baptiste Admitting Clinician Payers Payer Name Policy Type Policy Number Effective Date Expiration Date S ai [employer] [place] - [id number] 2020 00:00:00 OUT OF STATE [id number] 2021 00:00:00 Problems Condition Condition Condition Status [...] f medial medial 00:00: g of this [place] meniscus meniscus 00 note Medica l of left of left might be Branch knee as knee as different current current from the injury, injury, original. initial initial Added encounter encounter automatic ally from request for surgery [id number] Secondary Secondary Disease Active Overview: Univers oligomenor oligomenor 4-08 Formattin ity of pete pete 00:00: g of this [place] 00 note Medical might be Branch different from the original. 10/21/18 - DepoProve ra started05/03 - EMB benign Vitamin D Vitamin D Disease Active Uni vers deficiency deficiency 1-19 it y of 00:00: [place] 00 Medical Branch Shoulder Shoulder Disease Active Unive rs impingemen impingemen -19 it y of t, left t, left 00:00: [place] [facility] Low serum Low serum Disease Active Uni vers HDL HDL 12 ity of 00:00: [place] 00 Medical Branch Abnormal Abnormal Disease Active Unive rs thyroid thyroid 12 ity of stimulatin stimulatin [place] g hormone g hormone 00 Medi syeda (TSH) (TSH) Branch level level DDD DDD Disease Active Univers (degenerat (degenerat 12 it y of shireen disc shireen disc 00:00: [place] disease), disease), 00 Medi syeda cervical cervical Branch Left Left Disease Active Univers shoulder shoulder 07-27 ity of pain pain 00:00: [place] 00 Medical Branch Essential Essential Disease Active Uni vers hypertensi hypertensi -11 it y of on on 00:00: [place] [facility] Anxiety Anxiety Disease Active Univers disorder disorder -11 ity of 00:00: [place] 00 Medical Branch 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 1- 04:01:02 l (disorder) (disorder) 00:00: Vladimir rmann Active 00 07/16/1976 Problem 02/28/2020 reports reaction from [facility] Asthma Asthma Problem Active 2021-09-13 Lev trupti (disorder) (disorder) 00:27:51 l Active Luca Problem 09/13/2021 [facility] Gastritis Gastritis Problem Active 2021-09-13 Memoria (disorder) (disorder) 00:27:51 l Active [place] Problem 09/13/2021 [facility] Hypertensi Hypertens Problem Active 2021-09-13 Memoria ve shireen 00:27:51 l disorder, disorder, Herm mckenna systemic systemic arterial arterial (disorder) (disorder) Active Problem 09/13/2021 [facility] Hypothyroi Hypothyro Problem Active 2021-09-13 Memoria dism idism 00:27:51 l (disorder) (disorder) He rmann Active Problem 09/13/2021 [facility] Migraine Migraine Problem Active 2021-09-13 Memoria (disorder) (disorder) 00:27:51 l Active Leon Problem 09/13/2021 [facility] Morbid Morbid Problem Active 2021-09-13 Lev trupti obesity obesity 00:27:51 l (disorder) (disorder) Vladimir rmann Active Problem 09/13/2021 [facility] 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 00:27:51 l (disorder) (disorder) He rmann Active Problem 09/13/2021 [facility] Hemangioma Hemangiom Problem Active 2021-09-13 Memoria of a of 00:27:51 l intracrani intracrani He rmann al al structure structure (disorder) (disorder) Active Problem 09/13/2021 [facility] Ankle pain Ankle Problem Active 2021-09-13 M emoria (finding) pain 00:27:51 l (finding) Leon Active Problem 09/13/2021 [facility] Paresthesi Paresthes Problem Active 2021-09-13 Memoria a ia 00:27:51 l (finding) (finding) Herm mckenna Active Problem 09/13/2021 [facility] Lumbar Lumbar Problem Active 2021-09-13 Lev trupti radiculopa radiculopa 00:27:51 l thy thy Leon (disorder) (disorder) Active Problem 09/13/2021 [facility] Peripheral Periphera Problem Active 2021-09-13 Memoria nerve l nerve 00:27:51 l disease disease Luca (disorder) (disorder) Active Problem 09/13/2021 [facility] Acid Acid Problem Active 2020-02-28 Memor ia reflux reflux 04:01:02 l (finding) (finding) Herm mckenna Active Problem 02/28/2020 [facility] Allergy - Allergy Problem Active 2020-02-28 Memoria specialty - 04:01:02 l (qualifier specialty Her paulino value) (qualifier value) Active Problem 02/28/2020 [facility] Fracture Fracture Problem Active 2020-02-28 [facility] [place] 04:01:02 l (disorder) (disorder) Vladimir rmann Active Problem 02/28/2020 [facility] Neuropathy Neuropath Problem Active 2020-02-28 Memoria (disorder) y 04:01:02 l (disorder) Burak n Active Problem 02/28/2020 [facility] Osteochond Osteochond Problem [...] Active U nivers ia ia ity of [place] [facility] Disc Disc Disease Active Univers disease, disease, [place]y of degener[place] degener[place] ve, lumbar ve, lumbar Me dical or or Branch lumbosacra lumbosacra l l Cervical Cervical Disease Active Unive rs herniated herniated ity of disc disc [facility] Lumbar Lumbar Disease Active Univers herniated herniated ity of disc disc [facility] No known No known Disease Metho di active active st problems problems Hospit a l History of Past Illness Condition Condition Condition Status Onset Resolution Last Treating Co mments Source Name Details Category Date Date Treatment Clinician Date Nondisplac Nondispla Problem 2020-02-28 2020-02-28 [facility] ed dome day dome 8- 04:01:02 04:01:02 l fracture fracture 17:00: Burak [...] ity of adverse Vomiting 00:00: [place] reaction Medical s Branch ASPIRIN DRUG Active Other-Cmnt Unive rs INGREDI 09-06 ity of 00:00: [place] 00 Medical Branch CODEINE DRUG Active N/V Univers INGREDI 09-06 ity of 00:00: [place] 00 Medical Branch TOPIRAMA DRUG Active N/V Univers TE INGREDI 09-06 ity of 00:00: [place] 00 Medical Branch Topirama Propensi Active Other (See [...] Other (See Me thodi ty to Comments) 7 st adverse 00:00: Hospita reaction 00 l s to drug aspirin Allergy Active [facility] (finding ans ) codeine Allergy Active [facility] to drug [facility] (finding ans ) codeine codeine Active Memoria l [place] aspirin aspirin Active Memoria l [place] Topamax Topamax Active Memoria l [place] traMADol traMADol Active Memori a l [place] Family History Family Member Diagnosis Comments Start Date Stop Date Source Natural father Diabetes [facility] Natural father Heart attack [facility] Maternal [facility] Maternal grandmother Diabetes [facility] Maternal grandmother Stroke [facility] Natural mother Heart attack [facility] Natural mother Heart disease [facility] Social History Social Habit Start Date Stop Date Quantity Comments Source Exposure to Not sure Rosi armendariz SARS-CoV-2 (event) Tobacco use and 2021-05-19 2021-05-19 Smokeless tobacco Me thodist exposure 00:00:00 00:00:00 non-user Hospital Alcohol intake 2021-05-19 2021-05-19 Lifetime [facility] 00:00:00 00:00:00 non-drinker Hospital (finding) Sex Ass[birth year] At [birth year] [facility] 00:[facility] 00:00:00 Hospital Smoking Status Start Date Stop Date Source Social History [facility] Medications Ordered Filled Start Stop Current Ordering Indication Dosage Frequency Signature Comments Components Source Medication Medication Date Date Medication? Clinician (SIG) Name Name mupirocin 2020-07 Yes Apply Methodi (BACTROBAN) 1- topically. st 2 % 10:54: Hospita ointment 00 l nitrofurant 2020-07 Yes nitrofuran Methodi oin, 07-[address] macrocrysta 10:54: monohydrat Hospita l-monohydra 00 e/macrocry l te, stals 100 (MACROBID) mg capsule 100 MG capsule mupirocin 2020-07 Yes Apply Methodi (BACTROBAN) 1-[address] 2 % 10:54: Hospita ointment 00 l nitrofurant 2020-07 Yes nitrofuran Methodi oin, - toin st macrocrysta 10:54: monohydrat Hospita l-monohydra 00 e/macrocry l te, stals 100 (MACROBID) mg capsule 100 MG capsule mupirocin 2020-07 Yes Apply Methodi (BACTROBAN) 1-[address] 2 % 10:54: Hospita ointment 00 l nitrofurant 2020-07 Yes nitrofuran Methodi oin, 07-[address] macrocrysta 10:54: monohydrat Hospita l-monohydra 00 e/macrocry l te, stals 100 (MACROBID) mg capsule 100 MG capsule doxycycline 2020-07 Yes doxycyclin Methodi (VIBRA-TABS 1-[address] ) 100 MG 10:53: 100 mg Hospita tablet 59 tablet l eletriptan 2020-07 Yes eletriptan M ethodi (RELPAX) 40 1- [address] MG tablet 10:53: tablet Hospit a 59 l flu vac qv 2020-07 Yes Flublok Meth jason 2018,yr 07-[address] up,rc,PF, 10:53: Hos helga (Flublok 59 (PF) 180 l Quad mcg (, mcg x PF,) 180 4)/0.5 mL mcg (45 mcg IM syringe x 4)/0.5 mL PHARMACIST syringe ADMINISTER ED IMMUNIZATI ON ADMINISTER ED AT TIME OF DISPENSING doxycycline 2020-07 Yes doxycyclin Methodi (VIBRA-TABS [address] ) 100 MG 10:53: 100 mg Hospita tablet 59 tablet l eletriptan 2020-07 Yes eletriptan M ethodi (RELPAX) [address] MG tablet 10:53: tablet Hospit a 59 l flu vac qv 2020-07 Yes Flublok Meth jason 2018,07-[address] up,rc,PF, 10:53: Hos helga (Flublok 59 (PF) 180 l Quad mcg (, mcg x PF,) 180 4)/0.5 mL mcg [...] qv 2020-07 Yes Flublok Meth jason 2019,18yr 1-[address] up,rc,PF, 10:53: Hos helga (Flublok 59 (PF) 180 l Quad mcg ([id number], mcg x PF,) 180 4)/0.5 mL mcg [...] 32 on daily Suspension Cyclobenzap 2020-07 Yes [id number] 10mg Take 1 Rosi rine HCl 10 0-14 tablet (10 Se ybold MG oral 00:00: mg total) Tablet 00 by mouth at bedtime as needed amitriptyli 2020-07 Yes Method i ne (ELAVIL) 0-04 st 75 MG 00:00: Hospita tablet 00 l medroxyPROG 2020-07 Yes Method i ESTERone 0-04 st (PROVERA) 00:00: Hospita 10 MG 00 l tablet amitriptyli 2020-07 Yes Method i ne (ELAVIL) 0-04 st 75 MG 00:00: Hospita tablet 00 l medroxyPROG 2020-07 Yes Method i ESTERone 0-04 st (PROVERA) 00:00: Hospita 10 MG 00 l tablet Euthyrox 2020-07 Yes Rosi 150 MCG 0-04 Seybold oral Tablet 00:00: 00 amitriptyli 2021-1 Yes Method i ne (ELAVIL) 0-04 st 75 MG 00:00: Hospita tablet 00 l medroxyPROG 1 Yes Method i ESTERone 0-04 st (PROVERA) 00:00: Hospita 10 MG 00 l tablet ubrogepant 2020-0 Yes 100 mg = 1 M emoria 100 MG Oral 9-10 tab, PO, l Tablet 21:15: PRN, PRN Leon [Ubrelvy] 00 Other -See Comment, X 30 day, # 10 tab, 1 Refill(s), Pharmacy: [id number], For Migraine. May repeat dose after 2 hours. Max dose 200 mg/ 24 hours, 152.4, cm, 03/16/21 8:31:00 CDT, Height, 112.727, kg, 03/16/21 8... ubrogepant 1-0 Yes 100 mg = 1 M emoria 100 MG Oral 9-10 tab, PO, l Tablet 21:15: PRN, PRN Leon [Ubrelvy] 00 Other -See Comment, X 30 day, # 10 tab, 1 Refill(s), Pharmacy: [facility], For Migraine. May repeat dose after 2 hours. Max dose 200 mg/ 24 hours, 152.4, cm, 03/16/21 8:31:00 CDT, Height, 112.727, kg, 03/16/21 8... ubrogepant 1-0 Yes 100 mg = 1 M ethodi (Ubrelvy) 9-10 tab, PO, st 100 mg 00:00: PRN, PRN Hospita tablet 00 Other -See l Comment, X 30 day, # 10 tab, 1 Refill(s), Pharmacy: [facility], For Migraine. May repeat dose after 2 hours. Max dose 200 mg/ 24 hours, 152.4, cm, 03/16/21 8:31:00 CDT, Height, 112.727, kg, 03/16/21 8... ubrogepant 2021-0 Yes 100 mg = 1 M ethodi (Ubrelvy) 9-10 tab, PO, st 100 mg 00:00: PRN, PRN Hospita tablet 00 Other -See l Comment, X 30 day, # 10 tab, 1 Refill(s), Pharmacy: [facility], For Migraine. May repeat dose after 2 hours. Max dose 200 mg/ 24 hours, 152.4, cm, 03/16/21 8:31:00 CDT, Height, 112.727, kg, 03/16/21 8... ubrogepant 2020-0 Yes 100 mg = 1 M ethodi (Ubrelvy) 9-10 tab, PO, st 100 mg 00:00: PRN, PRN Hospita tablet 00 Other -See l Comment, X 30 day, # 10 tab, 1 Refill(s), Pharmacy: [facility], For Migraine. May repeat dose after 2 hours. Max dose 200 mg/ 24 hours, 152.4, cm, 03/16/21 8:31:00 CDT, Height, 112.727, kg, 03/16/21 8... ubrogepant 2020-0 No 100 mg = 1 M emoria 100 MG Oral -03 tab, PO, l Tablet 16:30: PRN, PRN Luca [Ubrelvy] 00 Other -See Comment, X 30 day, # 10 tab, 1 Refill(s), Pharmacy: [facility], For Migraine. May repeat dose after 2 hours. Max dose 200 mg/ 24 hours, 152.4, cm, 03/16/21 8:31:00 CDT, Height, 112.727, kg, 03/16/21 8:... ubrogepant 2020-0 No 100 mg = 1 M emoria 100 MG Oral -03 tab, PO, l Tablet 16:30: PRN, PRN Luca [Ubrelvy] 00 Other -See Comment, X 30 day, # 10 tab, 1 Refill(s), Pharmacy: [facility], For Migraine. May repeat dose after 2 hours. Max dose 200 mg/ 24 hours, 152.4, cm, 03/16/21 8:31:00 CDT, Height, 112.727, kg, 03/16/21 8:... amitriptyli 2020-0 Yes = 1 tab, Me moria ne 75 mg 03-16 PO, l oral tablet 23:57: Bedtime, # Leon 00 30 ea, 5 Refill(s), Pharmacy: [facility], 152.4, cm, 03/16/21 8:31:00 CDT, Height, 112.727, kg, 03/16/21 8:31:00 CDT, Weight amitriptyli Yes = 1 tab, Me moria ne 75 mg 03-16 PO, l oral tablet 23:57: Bedtime, # Luca 00 30 ea, 5 Refill(s), Pharmacy: [facility], 152.4, cm, 03/16/21 8:31:00 CDT, Height, 112.727, kg, 03/16/21 8:31:00 CDT, Weight Amitriptyli Yes amitriptyl Rosi ne HCl 75 03-16 ine 75 mg Seybo ld MG oral 00:00: tablet Tablet 00 ubrogepant No 100 mg = 1 M emoria 100 MG Oral 8-23 tab, PO, l Tablet 21:26: PRN, PRN Leon [Ubrelvy] 00 Other -See Comment, X 30 day, # 10 tab, 1 Refill(s), Pharmacy: [facility], For Migraine. May repeat dose after 2 hours. Max dose 200 mg/ 24 hours, 152.4, cm, 02/01/21 13:49:00 CDT, Height, 116.818, kg, 02/01/21 1... ubrogepant No 100 mg = 1 M emoria 100 MG Oral 8-23 tab, PO, l Tablet 21:26: PRN, PRN Luca [Ubrelvy] 00 Other -See Comment, X 30 day, # 10 tab, 1 Refill(s), Pharmacy: [facility], For Migraine. May repeat dose after 2 hours. Max dose 200 mg/ 24 hours, 152.4, cm, 02/01/21 13:49:00 CDT, Height, 116.818, kg, 02/01/21 1... ibuprofen Yes Methodi (ADVIL) 600 8-04 st MG tablet 00:00: Hospita 00 l ibuprofen 2021-0 Yes Methodi (ADVIL) 600 8-04 st MG tablet 00:00: Hospita 00 l Ibuprofen 2020-0 Yes Rosi 600 MG oral 8-04 Seybold Tablet 00:00: 00 ibuprofen 2020-0 Yes Methodi (ADVIL) 600 8-04 st MG tablet 00:00: Hospita 00 l methylPREDN 1-0 Yes [id number] 84mg Take 21 Univers ISolone 7-30 tablets by ity of (MEDROL, 00:00: mouth [place] GENARO,) 4 mg 00 SEE-INSTRU Med ical tablets CTIONS. Branch follow package directions methylPREDN 2020-0 Yes [id number] 84mg Take 21 Univers ISolone 7-30 tablets by ity of (MEDROL, 00:00: mouth [place] GENARO,) 4 mg 00 SEE-INSTRU Med ical tablets CTIONS. Branch follow package directions methylPREDN 2020-0 Yes [id number] 84mg Take 21 Univers ISolone 7-30 tablets by ity of (MEDROL, 00:00: mouth [place] GENARO,) 4 mg 00 SEE-INSTRU Med ical tablets CTIONS. Branch follow package directions medroxyPROG 2020-0 Yes [id number] 20mg Take 2 Univers ESTERone 5-13 tablets by ity o f (PROVERA) 00:00: mouth [place] 10 mg 00 daily. Medical tablet Branch medroxyPROG 2020-0 Yes [id number] 20mg Take 2 Univers ESTERone 5-13 tablets by ity o f (PROVERA) 00:00: mouth [place] 10 mg 00 daily. Medical tablet Branch medroxyPROG 2020-0 Yes [id number] 20mg Take 2 Univers ESTERone 5-13 tablets by ity o f (PROVERA) 00:00: mouth [place] 10 mg 00 daily. Medical tablet Branch medroxyPROG 1-0 Yes every 24 Ke lsey ESTERone 5-13 hours Seybold Acetate 10 00:00: MG oral 00 Tablet rizatriptan 2020-0 Yes 5 mg = 1 Me moria 5 MG Oral 3-12 tab, PO, l Tablet 20:23: ONCE, PRN Burak n [Maxalt] 00 for migraine headache, # 9 tab, 1 Refill(s), Pharmacy: [facility], 160.02, cm, 09/24/20 13:34:00 PIPE TESTER, Height, 113.636, kg, 09/24/20 13:34:00 PIPE TESTER, Weight rizatriptan 2020-0 Yes 5 mg = 1 Me moria 5 MG Oral 3-12 tab, PO, l Tablet 20:23: ONCE, PRN Burak n [Maxalt] 00 for migraine headache, # 9 tab, 1 Refill(s), Pharmacy: [facility], 160.02, cm, 09/24/20 13:34:00 PIPE TESTER, Height, 113.636, kg, 09/24/20 13:34:00 PIPE TESTER, Weight Rizatriptan 2020-0 Yes rizatripta Rosi Benzoate 5 3-12 n 5 mg Seybold MG oral 00:00: tablet Tablet 00 TAKE 1 TABLET BY MOUTH ONCE DAILY NEEDED FOR HEADACHE MIGRAINE rizatriptan 2019-0 Yes 5 mg = 1 Me moria 5 MG Oral 9-15 tab, PO, l Tablet 22:44: ONCE, PRN Burak n [Maxalt] 00 for migraine headache, # 9 tab, 1 Refill(s), Pharmacy: [facility], 152.4, cm, 01/15/20 15:04:00 CDT, Height, 115.455, kg, 01/15/20 15:04:00 CDT, Weight rizatriptan 2020-0 Yes 5 mg = 1 Me moria 5 MG Oral 9-15 tab, PO, l Tablet 22:44: ONCE, PRN Burak n [Maxalt] 00 for migraine headache, # 9 tab, 1 Refill(s), Pharmacy: [facility], 152.4, cm, 01/15/20 15:04:00 CDT, Height, 115.455, kg, 01/15/20 15:04:00 CDT, Weight Misc 2020-0 No 900 mL, Memoria Medication 8- Soln-IV, l 15:27: IV, Once, Luca 00 first dose 02/26/20 10:27:00 CDT, stop date 02/26/20 10:27:00 CDT Misc 2020-0 No 900 mL, Memoria Medication 8- Soln-IV, l 15:27: IV, Once, Leon first dose 02/26/20 10:27:00 CDT, stop date [...] mL, Soln, l Inhalant 15:20: NEB, Once PRN for wheezing, first dose [...] 8-13 Soln, IV l 15:20: Push, As Leon 00 Indicated PRN for flush, first dose 02/26/20 [...] e 8-13 0.5 mL, l 15:20: Injection, Leon 00 IM, Once PRN for vomiting, first dose 02/26/20 10:20:00 CDT fentaNYL 2020-0 No 25 mcg = Memor ia 8-13 0.5 mL, l 14:50: Injection, Leon 00 IV, Once, first dose 02/26/20 9:50:00 CDT, stop date 02/26/20 9:50:00 CDT fentaNYL 2020-0 No 25 mcg = Memor ia 8-13 0.5 mL, l 14:50: Injection, Luca 00 IV, Once, first dose 02/26/20 9:50:00 CDT, stop date 02/26/20 9:50:00 CDT fentaNYL 2020-0 No 25 mcg = Memor ia 8-13 0.5 mL, l 14:16: Injection, Leon 00 IV, Once, first dose 02/26/20 9:16:00 CDT, stop date 02/26/20 9:16:00 CDT fentaNYL 2020-0 No 25 mcg = Memor ia 8-13 0.5 mL, l 14:16: Injection, IV, Once, first dose 02/26/20 9:16:00 CDT, stop date 02/26/20 9:16:00 CDT Misc 2020-0 No 1,000 mL, Memoria Medication - Soln-IV, l 13:23: IV, Once, first dose 02/26/20 8:23:00 CDT, stop date 02/26/20 8:23:00 CDT Misc 2020-0 No 1,000 mL, Memoria Medication 02-25 Soln-IV, l 13:23: IV, Once, first dose [...] Mem oria 8-13 mL, l 12:53: Injection, Leon 00 IV, Once, first dose 02/26/20 7:53:00 [...] ia 8-13 20 mL, l 12:41: Emulsion, Leon 00 IV, Once, first dose 02/26/20 7:41:00 [...] Lev trupti 8-13 mL, l 12:34: Injection, Leon 00 IV, Once, first dose 02/26/20 7:34:00 [...] Mem oria 8-13 mL, l 12:25: Injection, Leon 00 IV, Once, first dose 02/26/20 7:25:00 [...] emoria 8- IV, 30 l 11:28: mL/hr, start date 02/26/20 6:28:00 CDT, 2.14, m2 Lidocaine 2020-0 No 0.2 mL, Memor ia 2% 0.2 mL 02-25 Injection, l IV Start 11:28: Subcutaneo [facility] [[facility]] , Once PRN for other (see comment), first dose 02/26/20 6:28:00 CDT LR 1,000 mL 2020-0 No 1,000 mL, M emoria 02-25 IV, 30 l 11:28: mL/hr, start date 02/26/20 6:28:00 CDT, 2.14, m2 Lidocaine 2020-0 No 0.2 mL, Memor ia 2% 0.2 mL 02-25 Injection, l [facility] , Once PRN for other (see comment), [...] tabs, l oral tablet 17:04: Oral, qHS, Leon 00 0 Refill(s), sleep levothyroxi 2020-0 Yes [...] mg 8-05 tabs, l oral 17:04: Oral, Leon delayed 00 Daily, 0 release Refill(s), tablet [...] PO, l oral tablet 20:24: Bedtime, # Leon 00 30 ea, 5 Refill(s), Pharmacy: [facility], 152.4, cm, 01/15/20 15:04:00 CDT, Height, 115.455, kg, 01/15/20 15:04:00 CDT, Weight rizatriptan 2020-0 Yes 5 mg = 1 Me moria 5 MG Oral 7-02 tab, PO, l Tablet 20:24: ONCE, PRN Burak n [Maxalt] 00 for migraine headache, # 9 tab, 1 Refill(s), Pharmacy: [facility], 152.4, cm, 01/15/20 15:04:00 CDT, Height, 115.455, kg, 01/15/20 15:04:00 CDT, Weight amitriptyli 2020-0 Yes = 1 tab, Me moria ne 75 mg 7-02 PO, l oral tablet 20:24: Bedtime, # Luca 00 30 ea, 5 Refill(s), Pharmacy: [facility], 152.4, cm, 01/15/20 15:04:00 CDT, Height, 115.455, kg, 01/15/20 15:04:00 CDT, Weight rizatriptan 2020-0 Yes 5 mg = 1 Me moria 5 MG Oral 7-02 tab, PO, l Tablet 20:24: ONCE, PRN Burak n [Maxalt] 00 for migraine headache, # 9 tab, 1 Refill(s), Pharmacy: [facility], 152.4, cm, 01/15/20 15:04:00 CDT, Height, 115.455, kg, 01/15/20 15:04:00 CDT, Weight rizatriptan 2020-0 Yes 5 mg = 1 Me moria 5 MG Oral 5-19 tab, PO, l Tablet 21:06: ONCE, PRN Burak n [Maxalt] 00 for migraine headache, # 9 tab, 1 Refill(s), Pharmacy: [facility] amitriptyli 2020-0 Yes = 1 tab, Me moria ne 75 mg 5-19 PO, l oral tablet 21:06: Bedtime, # Luca 00 30 ea, 1 Refill(s), Pharmacy: [facility] rizatriptan 2020-0 Yes 5 mg = 1 Me moria 5 MG Oral 5-19 tab, PO, l Tablet 21:06: ONCE, PRN Burak n [Maxalt] 00 for migraine headache, # 9 tab, 1 Refill(s), Pharmacy: [facility] amitriptyli 2020-0 Yes = 1 tab, Me moria ne 75 mg 5-19 PO, l oral tablet 21:06: Bedtime, # Leon 30 ea, 1 Refill(s), Pharmacy: [facility] loratadine Yes loratadine M ethodi (CLARITIN) 03-[address] 10 mg 00:00: tablet Hospita tablet 00 TAKE 1 l TABLET BY MOUTH ONCE DAILY loratadine Yes loratadine M ethodi (CLARITIN) 03-[address] 10 mg 00:00: tablet Hospita tablet 00 TAKE 1 l TABLET BY MOUTH ONCE DAILY sod Yes [id number] 1{bottl Use 1 Unive rs chlor-bicar 03-23 e} Bottle in ity of b-squeez 00:00: each [place] bottle 00 nostril 2 Medical (NEILMED (two) Branch SINUS RINSE times COMPLETE) daily. Use pkdv in hot shower 1 hour before bedtime loratadine Yes [id number] 10mg Take 1 U nivers 10 mg 9-08 tablet by ity of tablet 00:00: mouth [place] 00 daily. Medical Branch sod Yes [id number] 1{bottl Use 1 Unive rs chlor-bicar 9-08 e} Bottle in ity of b-squeez 00:00: each [place] bottle 00 nostril 2 Medical (NEILMED (two) Branch SINUS RINSE times COMPLETE) daily. Use pkdv in hot shower 1 hour before bedtime loratadine Yes [id number] 10mg Take 1 U nivers 10 mg 9-08 tablet by ity of tablet 00:00: mouth [place] 00 daily. Medical Branch sod Yes [id number] 1{bottl Use 1 Unive rs chlor-bicar 9-08 e} Bottle in ity of b-squeez 00:00: each [place] bottle 00 nostril 2 Medical (NEILMED (two) Branch SINUS RINSE times COMPLETE) daily. Use pkdv in hot shower 1 hour before bedtime loratadine Yes [id number] 10mg Take 1 U nivers 10 mg 9-08 tablet by ity of tablet 00:00: mouth [place] 00 daily. Medical Branch loratadine Yes loratadine M ethodi (CLARITIN) 9-[address] 10 mg 00:00: tablet Hospita tablet 00 TAKE 1 l TABLET BY MOUTH ONCE DAILY amitriptyli Yes 75 mg = 1 M emoria ne 75 mg 8-22 tab, PO, l oral tablet 18:27: Bedtime, # Leon 00 30 tab, 1 Refill(s), Pharmacy: [facility] amitriptyli 0 Yes 75 mg = 1 M emoria ne 75 mg 8-22 tab, PO, l oral tablet 18:27: Bedtime, # Leon 00 30 tab, 1 Refill(s), [facility] [facility] rizatriptan Yes 5 mg = 1 Me moria 5 MG Oral 8-02 tab, PO, l Tablet 20:24: ONCE, PRN Burak n [Maxalt] 09 for migraine headache, # 9 tab, 1 Refill(s), Pharmacy: [facility] 808 rizatriptan Yes 5 mg = 1 Me moria 5 MG Oral 8-02 tab, PO, l Tablet 20:24: ONCE, PRN Burak n [Maxalt] 09 for migraine headache, # 9 tab, 1 Refill(s), Pharmacy: [facility] thiamine Yes 100 mg = 1 Mem oria 100 mg oral 8-02 tab, PO, l tablet 20:23: Daily, X Luca 17 30 day, # 30 tab, 3 Refill(s), Pharmacy: [facility] thiamine Yes 100 mg = 1 Mem oria 100 mg oral 8-02 tab, PO, l tablet 20:23: Daily, X Leon 17 30 day, # 30 tab, 3 Refill(s), Pharmacy: [facility] cyanocobala Yes 1,000 Memor ia min 1000 8-02 microgram l mcg 20:23: = 1 tab, Leon sublingual 13 SL, Daily, tablet # 30 tab, 2 Refill(s), Pharmacy: [facility] cyanocobala Yes 1,000 Memor ia min 1000 8-02 microgram l mcg 20:23: = 1 tab, Luca sublingual 13 SL, Daily, tablet # 30 tab, 2 Refill(s), Pharmacy: [facility] amitriptyli Yes 50 mg = 1 M emoria ne 50 mg 8-02 tab, PO, l oral tablet 20:23: Bedtime, # Leon 09 30 tab, 1 Refill(s), Pharmacy: [facility] amitriptyli Yes 50 mg = 1 M emoria ne 50 mg 8-02 tab, PO, l oral tablet 20:23: Bedtime, # Leon 09 30 tab, 1 Refill(s), Pharmacy: [facility] rizatriptan Yes rizatripta Methodi (MAXALT) 5 8-[address] MG tablet 00:00: tablet Hospit a 00 TAKE 1 l TABLET BY MOUTH ONCE DAILY NEEDED FOR HEADACHE MIGRAINE rizatriptan Yes rizatripta [facility] (MAXALT) 5 8-[address] MG tablet 00:00: tablet Hospit a 00 TAKE 1 l TABLET BY MOUTH ONCE DAILY NEEDED FOR HEADACHE MIGRAINE rizatriptan Yes rizatripta Methodi (MAXALT) 5 8-02 [...] day, # 6 tab, 1 Refill(s), Pharmacy: [facility] amitriptyli No 50 mg = 1 M emoria ne 50 mg 7-13 tab, PO, l oral tablet 01:53: Bedtime, # Luca 00 30 tab, 1 Refill(s), Pharmacy: [facility] rizatriptan No 5 mg = 1 Me moria 5 MG Oral 7-13 tab, PO, l Tablet 01:53: Daily, PRN Antonia nn [Maxalt] 00 for migraine headache, X 6 day, # 6 tab, 1 Refill(s), Pharmacy: [facility] amitriptyli No 50 mg = 1 M emoria ne 50 mg 7-13 tab, PO, l oral tablet 01:53: Bedtime, # Luca 00 30 tab, 1 Refill(s), Pharmacy: [facility] frovatripta 2018- No 2.5 mg = 1 Memoria n 2.5 mg 6-27 tab, PO, l oral tablet 15:37: Daily, PRN Leon 00 for migraine headache, May repeat another dose at least 2 hours after the first dose, X 3 day, # 9 tab, 2 Refill(s), Pharmacy: [facility] frovatripta 2018- No 2.5 mg = 1 Memoria n 2.5 mg 6-27 tab, PO, l oral tablet 15:37: Daily, PRN Luca 00 for migraine headache, May repeat another dose at least 2 hours after the first dose, X 3 day, # 9 tab, 2 Refill(s), Pharmacy: [facility] eletriptan 2018-0 No See Memoria 40 MG Oral 6-25 Instructio l Tablet 23:35: ns, PO, Leon [Relpax] 00 Take 1-2 tabs orally at onset of migraine, may repeat dose once in 2 hours, X 3 day, # 6 tab, 1 Refill(s), Pharmacy: [facility] eletriptan No See Memoria 40 MG Oral 6-25 Instructio l Tablet 23:35: ns, PO, Luca [Relpax] 00 Take 1-2 tabs orally at onset of migraine, may repeat dose once in 2 hours, X 3 day, # 6 tab, 1 Refill(s), Pharmacy: [facility] amitriptyli Yes 25 mg = 1 M emoria ne 25 mg 6-11 tab, PO, l oral tablet 21:16: Bedtime, # Luca 00 30 tab, 3 Refill(s), Pharmacy: [facility] amitriptyli Yes 25 mg = 1 M emoria ne 25 mg 6-11 tab, PO, l oral tablet 21:16: Bedtime, # Leon 00 30 tab, 3 Refill(s), Pharmacy: [facility] cyanocobala Yes 1,000 Memor ia min 1000 6-07 microgram l mcg 19:39: = 1 tab, Leon sublingual 00 SL, Daily, tablet # 30 tab, 2 Refill(s), Pharmacy: [facility] cyanocobala Yes 1,000 Memor ia min 1000 6-07 microgram l mcg 19:39: = 1 tab, Luca sublingual 00 SL, Daily, tablet # 30 tab, 2 Refill(s), Pharmacy: [facility] thiamine Yes 100 mg = 1 Mem oria 100 mg oral 5-17 tab, PO, l tablet 18:13: Daily, X Luca 00 30 day, # 30 tab, 3 Refill(s), Pharmacy: [facility] thiamine Yes 100 mg = 1 Mem oria 100 mg oral 5-17 tab, PO, l tablet 18:13: Daily, X Luca 00 30 day, # 30 tab, 3 Refill(s), Pharmacy: [facility] 808 amitriptyli 2019-0 Yes 10 mg = 1 M emoria ne 10 mg 5-10 tab, PO, l oral tablet 20:44: Bedtime, # Leon 00 30 tab, 3 Refill(s), Pharmacy: [facility] 808 amitriptyli 2019-0 Yes 10 mg = 1 M emoria ne 10 mg 5-10 tab, PO, l oral tablet 20:44: Bedtime, # Luca 00 30 tab, 3 Refill(s), Pharmacy: [facility] 808 gabapentin 2019-0 Yes 300 mg = 1 M emoria 300 MG Oral 5-10 cap, PO, l Capsule 20:28: BID, # 90 Antonia nn 00 cap, 1 Refill(s) cyclobenzap 2019-0 No 10 mg = 1 M emoria rine 10 mg 5-10 tab, PO, l oral tablet 20:28: TID, PRN He rmann 00 for spasms, # 30 tab, 0 Refill(s) escitalopra 2019-0 Yes 20 mg = 1 M emoria m 20 mg 5-10 tab, PO, l oral tablet 20:28: Daily, # He rmann 00 30 tab, 0 Refill(s) levothyroxi 2019-0 Yes 50 Memori a ne 50 mcg 5-10 microgram l (0.05 mg) 20:28: = 1 tab, Herm mckenna oral tablet 00 PO, Daily, # 30 tab, 0 Refill(s) gabapentin 2019-0 Yes 300 mg = 1 M emoria 300 MG Oral 5-10 cap, PO, l Capsule 20:28: BID, # 90 Antonia nn 00 cap, 1 Refill(s) cyclobenzap 2019-0 No 10 mg = 1 M emoria rine 10 mg 5-10 tab, PO, l oral tablet 20:28: TID, PRN He rmann 00 for spasms, # 30 tab, 0 Refill(s) escitalopra 2019-0 Yes 20 mg = 1 M emoria m 20 mg 5-10 tab, PO, l oral tablet 20:28: Daily, # He rmann 00 30 tab, 0 Refill(s) levothyroxi 2019-0 Yes 50 Memori a ne 50 mcg [...] [place] 00 every Medical morning. Branch levothyroxi 0 Yes 50ug Take 1 Univ ers ne 50 mcg 4-30 tablet by ity o f tablet 00:00: mouth [place] 00 every Medical morning. Branch levothyroxi 0 Yes 50ug Take 1 Univ ers ne [...] day Ho spita 00 l bisoprolol Yes 1 tablet Met hodi (ZEBETA) 10 1-[address] MG tablet 00:00: Once a day Ho spita 00 l bisoprolol Yes [id number] 10mg Take 1 U nivers 10 mg 1-11 tablet by ity of tablet 00:00: mouth [place] 00 daily. Medical Branch cyclobenzap Yes [id number] 10mg Take 1 Univers rine 10 mg 1-11 tablet by ity of tablet 00:00: mouth at [place] 00 bedtime. Medical Branch bisoprolol Yes [id number] 10mg Take 1 U nivers 10 mg 1-11 tablet by ity of tablet 00:00: mouth [place] 00 daily. Medical Branch cyclobenzap Yes [id number] 10mg Take 1 Univers rine 10 mg 1-11 tablet by ity of tablet 00:00: mouth at [place] 00 bedtime. Medical Branch bisoprolol Yes [id number] 10mg Take 1 U nivers 10 mg 1-11 tablet by ity of tablet 00:00: mouth [place] 00 daily. Medical Branch cyclobenzap Yes [id number] 10mg Take 1 Univers rine 10 mg 1-11 tablet by ity of tablet 00:00: mouth at [place] [address] bedtime. Medical Branch bisoprolol Yes 1 tablet Met hodi (ZEBETA) 10 1-[address] MG tablet 00:00: Once a day Ho spita 00 l albuterol 2015-07 Yes 3 ml as Metho di (ACCUNEB) 1-[address] 2.5 mg /3 00:00: Hospita mL (0.083 00 l %) nebulizer solution albuterol 2015-07 Yes 3 ml as Metho [...] ity of mL (0.083 00:00: [place] %) Medical nebulizer Branch solution PROAIR HFA 2015-07 [...] Yes 10mg Take 10 mg Univers (SINGULAIR) -03 by mouth ity of 10 mg 00:00: every [place] tablet 00 evening. Medical Branch fluticasone Yes fluticason Methodi propionate 03-[address] (FLONASE) 00:00: propionate Ho spita 50 00 50 l mcg/actuati mcg/actuat on nasal ion nasal spray spray,susp ension fluticasone Yes fluticason Methodi propionate [address] (FLONASE) 00:00: propionate Ho spita [...] spray Branch fluticasone Yes fluticason Methodi propionate [address] (FLONASE) 00:00: propionate Ho spita [...] Protein, Pf, 100 Mcg/0.5ml,IM TDAP 2016-07-[address] [facility] 00:00:00 [facility] Influenza Virus 2016-07-24 Completed Universit y of Vaccine Quad IM 3+ 00:00:00 [facility] TDAP 2016-07-[address] [facility] 00:00:00 [facility] Influenza Virus 2016-07-24 Completed Universit y of Vaccine Quad IM 3+ 00:00:00 [facility] TDAP 2016-07-[address] [facility] 00:00:00 [facility] Influenza Virus 2016-07-24 Completed Universit y of Vaccine Quad IM 3+ 00:00:00 [facility] Influenza Virus 2016-07-24 Completed Rosi Enriquez bradenfiona Vaccine, No 00:00:00 Preserv, age 6 months and up Tdap- (Boostrix, 2016-07-24 Completed Rosi esposito Adacel) 00:00:00 Tdap- (Boostrix, 2010-01-18 Completed Rosi esposito Adacel) 00:00:00 Vital Signs Vital Name Observation Time Observation Value Comments Source Systolic blood 2021-10-10 20:19:00 141 mm[Hg] Univer sity of pressure [facility] Diastolic blood 2021-10-10 20:19:00 98 mm[Hg] Unive rsity of pressure [facility] Heart rate 2021-10-10 20:19:00 109 /min [facility] Body temperature 2021-10-10 20:19:00 36.94 Sole [facility] Respiratory rate 2021-10-10 20:19:00 18 /min [facility] [place] [facility] Body height 2021-10-10 20:19:00 160 cm [facility] [place] [facility] Body weight 2021-10-10 20:19:00 115.667 kg [facility] [place] [facility] BMI 2021-10-10 20:19:00 45.17 kg/m2 Universi ty of [place] [facility] Oxygen saturation in 2021-10-10 20:19:00 97 /min [facility] Arterial blood by [facility] Pulse oximetry Branch Systolic blood 2021-04-28 14:43:00 100 mm[Hg] Rosi Seybold pressure Diastolic blood 2021-04-28 14:43:00 60 mm[Hg] Kelse y Seybold pressure Heart rate 2021-04-28 14:43:00 112 /min Rosi S eybold Body temperature 2021-04-28 14:43:00 37 Sole Agueda ey Seybold Respiratory rate 2021-04-28 14:43:00 16 /min Agueda ey Seybold Body height 2021-04-28 14:43:00 157.5 cm Rosi S eybold Body weight 2021-04-28 14:43:00 113.853 kg Rosi S eybold BMI 2021-04-28 14:43:00 45.91 kg/m2 Rosi S eybold Systolic blood 2021-02-11 13:34:00 127 mm[Hg] Univer sity of pressure [facility] Diastolic blood 2021-02-11 13:34:00 87 mm[Hg] Unive rsity of pressure [facility] Heart rate 2021-02-11 13:34:00 100 /min [facility] [place] [facility] Body height 2021-02-11 13:34:00 160 cm [facility] [place] [facility] Body weight 2021-02-11 13:34:00 115.667 kg [facility] [place] [facility] BMI 2021-02-11 13:34:00 45.17 kg/m2 [facility] Systolic (mm Hg) 2021-03-16 13:19:00 Lev Segovia Diastolic (mm Hg) 2021-03-16 13:19:00 Mem orial Luca Heart Rate 2021-03-16 13:19:00 [facility] Respitory Rate 2021-03-16 13:19:00 Memori al Luca Height 2021-03-16 13:19:00 152.4 cm [facility] Weight 2021-03-16 13:19:00 [facility] BMI Calculated 2021-03-16 13:19:00 Memori al Leon Systolic (mm Hg) 2021-02-01 18:35:00 Lev rial Luca Diastolic (mm Hg) 2021-02-01 18:35:00 Mem orial Leon Heart Rate 2021-02-01 18:35:00 [facility] Leon Respitory Rate 2021-02-01 18:35:00 Memori al Leon Height 2021-02-01 18:35:00 152.4 cm [facility] Leon Weight 2021-02-01 18:35:00 [facility] Leon BMI Calculated 2021-02-01 18:35:00 Memori al Leon Systolic (mm Hg) 2020-09-24 19:34:00 Lev rial Leon Diastolic (mm Hg) 2020-09-24 19:34:00 Mem orial Luca Heart Rate 2020-09-24 19:34:00 [facility] Leon Respitory Rate 2020-09-24 19:34:00 Memori al Luca Height 2020-09-24 19:34:00 160.02 cm [facility] Luca Weight 2020-09-24 19:34:00 [facility] Leon BMI Calculated 2020-09-24 19:34:00 Memori al Luca Respitory Rate 2020-02-26 16:32:00 Memori al Luca Systolic (mm Hg) 2020-02-26 16:32:00 Lev rial Luca Diastolic (mm Hg) 2020-02-26 16:32:00 Mem orial Leon Heart Rate 2020-02-26 16:00:00 [facility] Luca Respitory Rate 2020-02-26 16:00:00 Memori al Leon Systolic (mm Hg) 2020-02-26 16:00:00 Lev rial Luca Diastolic (mm Hg) 2020-02-26 16:00:00 Mem orial Luca Heart Rate 2020-02-26 15:50:00 [facility] Luca Respitory Rate 2020-02-26 15:50:00 Memori al Leon Systolic (mm Hg) 2020-02-26 15:50:00 Lev rial Leon Diastolic (mm Hg) 2020-02-26 15:50:00 Mem orial Luca Heart Rate 2020-02-26 15:40:00 [facility] Leon Temperature Oral (F) 2020-02-26 15:20:00 37.0 Sole [facility] Temperature Oral (F) 2020-02-26 11:25:00 37.2 Sole [facility] Leon Height 2020-02-26 11:25:00 158 cm [facility] Luca [...] Systolic (mm Hg) 2020-01-15 20:04:00 Lev rial Leon Diastolic (mm Hg) 2020-01-15 20:04:00 Mem orial Leon Heart Rate 2020-01-15 20:04:00 [facility] Luca Respitory Rate 2020-01-15 20:04:00 Memori al Leon Height 2020-01-15 20:04:00 152.4 cm [facility] Leon Weight 2020-01-15 20:04:00 [facility] Luca BMI Calculated 2020-01-15 20:04:00 Memori al Luca Systolic (mm Hg) 2019-12-02 20:40:00 Lev rial Leon Diastolic (mm Hg) 2019-12-02 20:40:00 Mem orial Leon Heart Rate 2019-12-02 20:40:00 [facility] Luca Respitory Rate 2019-12-02 20:40:00 Memori al Leon Height 2019-12-02 20:40:00 152.4 cm [facility] Leon Weight 2019-12-02 20:40:00 [facility] Leon BMI Calculated 2019-12-02 20:40:00 Memori al Leon Weight 2019-02-14 19:40:00 [facility] Luca BMI Calculated 2019-02-14 19:40:00 Memori al Luca Height 2019-02-14 19:40:00 160.02 cm [facility] Leon Respitory Rate 2019-02-14 19:40:00 Memori al Leon Heart Rate 2019-02-14 19:40:00 [facility] Luca Systolic (mm Hg) 2019-02-14 19:40:00 Lev rial Leon Diastolic (mm Hg) 2019-02-14 19:40:00 Mem orial Luca BMI Calculated 2018-12-24 20:38:00 Memori al Luca Weight 2018-12-24 20:38:00 [facility] Luca Height 2018-12-24 20:38:00 157.48 cm [facility] Leon Systolic (mm Hg) 2018-12-24 20:38:00 Lev rial Luca Diastolic (mm Hg) 2018-12-24 20:38:00 Mem orial Luca Respitory Rate 2018-12-24 20:38:00 Memori al Leon Heart Rate 2018-12-24 20:38:00 [facility] Leon Height 2018-12-20 19:20:00 152.4 cm [facility] Luca BMI Calculated 2018-12-20 19:20:00 Memori al Leon Weight 2018-12-20 19:20:00 [facility] Leon Systolic (mm Hg) 2018-12-20 19:20:00 Lev rial Luca Diastolic (mm Hg) 2018-12-20 19:20:00 Mem orial Leon Heart Rate 2018-12-20 19:20:00 [facility] Leon Respitory Rate 2018-12-20 19:20:00 Memori al Luca Systolic (mm Hg) 2018-11-22 19:23:00 Lev rial Luca Diastolic (mm Hg) 2018-11-22 19:23:00 Mem orial Leon Respitory Rate 2018-11-22 19:23:00 Memori al Luca Height 2018-11-22 19:23:00 157.48 cm [facility] Luca Weight 2018-11-22 19:23:00 [facility] Luca BMI Calculated 2018-11-22 19:23:00 Carissa Monteiroann Heart Rate 2018-11-22 19:23:[address] [facility] Procedures Procedure Date / Time Performing Clinician Source Performed CONSENT/REFUSAL FOR 2021-10-10 20:09:22 Doctor Unassigned, [facility] 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 nn bilateral Bunionectomy [facility] Carpal tunnel syndrome of [facility] al Leon right wrist Plantar fasciitis of left [facility] Leon foot History of Breast [facility] reduction History of Carpal tunnel [facility] surgery Plan of Care Planned Activity Planned Date Details Comments Source Future Scheduled 2022-03-30 HEPATITIS B VACCINES [facility] Test 16:54:14 (1 of 3 - 3-dose series) [code = HEPATITIS B VACCINES (1 of 3 - 3-dose series)] Future Scheduled 2022-03-30 Hepatitis C [facility]ital Test 16:54:14 screening (procedure) [code = 153805217] Future Scheduled 2022-03-30 Screening for [facility] Test 16:54:14 malignant neoplasm of cervix (procedure) [code = 355039136] Future Scheduled 2022-03-30 BREAST CANCER [facility] Test 16:54:14 SCREENING [code = BREAST CANCER SCREENING] Future Scheduled 2022-03-30 [facility] 16:54:14 SCREENING [code = COLONOSCOPY SCREENING] Future Scheduled 2022-03-30 COVID-19 VACCINE (3 [facility] Test 16:54:14 - Booster for Moderna series) [code = COVID-19 VACCINE (3 - Booster for Moderna series)] Future Scheduled 2022-03-30 [facility]ZA [facility]ACCINE [facility] 16:54:14 [code = INFLUENZA VACCINE] Future Scheduled 2022-03-09 [facility] 10:28:27 (1 of 3 - 3-dose series) [code = HEPATITIS B VACCINES (1 of 3 - 3-dose series)] Future Scheduled 2022-03-09 [facility] 10:28:27 screening (procedure) [code = 656704000] Future Scheduled 2022-03-09 Screening for [facility] Test 10:28:27 malignant neoplasm of cervix (procedure) [code = 627621362] Future Scheduled 2022-03-09 BREAST CANCER [facility] Test 10:28:27 SCREENING [code = BREAST CANCER SCREENING] Future Scheduled 2022-03-09 [facility] 10:28:27 SCREENING [code = COLONOSCOPY SCREENING] Future Scheduled 2022-03-09 COVID-19 VACCINE (3 [facility] Test 10:28:27 - Booster for Moderna series) [code = COVID-19 VACCINE (3 - Booster for Moderna series)] Future Scheduled 2022-03-09 [facility]ZA [facility]ACCINE [facility] 10:28:27 [code = INFLUENZA VACCINE] Future Scheduled 2021-08-16 [facility] 19:56:30 screening (procedure) [code = 787397672] Future Scheduled 2021-08-16 Screening for [facility] Test 19:56:30 malignant neoplasm of cervix (procedure) [code = 663219725] Future Scheduled 2021-08-16 INFLUENZA VACCINE Method ist [...] Type Clinicians Facility Department ID 2022-02-21 [facility] [id number] Common 13:42:03 Avnee [address] [facility] 2021-08-10 [facility] [id number] Common 13:49:13 Avnee [address] [facility] 2021-08-10 [facility] [id number] Common 13:47:59 Avnee 77054 [facility] 2021-08-10 [facility] [id number] Common 13:43:00 Avnee 38577 [facility] 2021-08-10 [facility] [id number] Common 13:37:06 Avnee 08682 [facility] 2021-08-10 [facility] [id number] Common 13:23:50 Avnee 80531 [facility] 2021-08-10 [facility] [id number] Common 13:22:32 Avnee 92742 [facility] 2021-08-10 [facility] [id number] Common 13:09:55 Avnee 35467 [facility] 2021-05-15 [facility] [id number] Univers 06:58:12 ESTER rm [facility] 2022-02-21 2022-02-21 Outpatient ROSI CAMPBELL [id number] Rosi 00:00:00 00:00:00 HAMZAH armendariz 2021-10-10 2021-10-10 Emergency X [facility] [id number] Univers 15:21:00 15:42:00 CAT itcrow [facility] 2021-10-10 2021-10-10 Emergency [facility] [id number] Univers 15:21:00 15:42:00 Cat DUMONT [id number] ity [facility] [id number] [facility] [id number] [address] 2021-10-10 2021-10-10 Outpatient ROSI ALARCON [id number] Rosi 00:00:00 00:00:00 ALFONZO Seybol d 2021-09-09 2021-09-11 Outside nullFlavo MNA [id number] Memoria 15:41:21 05:59:59 Medical r Neurology 00 l Records Dittmer Luca 2021-09-09 2021-09-11 Outside nullFlavo MNA [id number] Memoria 15:41:21 05:59:59 Medical r Neurology 00 l Records Dittmer Leon 2021-09-09 2021-09-10 Outpatient MHMISCHER MHMISCHER [id number] 09:41:21 23:59:59 00 2021-09-09 2021-09-09 Outpatient ROSI ALARCON [id number] Rosi 00:00:00 00:00:00 ALFONZO Seybol d 2021-08-26 2021-08-26 Outpatient ROSI ALARCON [id number] Rosi 00:00:00 00:00:00 ALFONZO Seybol d 2021-07-05 2021-07-05 Outpatient ROSI ALARCON [id number] Rosi 00:00:00 00:00:00 ALFONZO Seybol d 2021-07-05 2021-07-05 Outpatient ROSI ALARCON [id number] Rosi 00:00:00 00:00:00 ALFONZO Seybol d 2021-06-02 2021-06-02 Outpatient ROSI ALARCON [id number] Rosi 00:00:00 00:00:00 ALFONZO Seybol d 2021-05-23 2021-05-23 Documentat Marina, 1.2.840.1 [id number] Methodi 00:00:00 00:00:00 ion Tony R. [id number] 3.430.2.7 Hospit a .3.555313 l .8 2021-05-23 2021-05-23 Documentat Marina, 1.2.840.1 [id number] Methodi 00:00:00 00:00:00 ion Tony R. [id number] 3.430.2.7 Hospit a .3.387668 l .8 2021-05-18 2021-05-18 [facility] 1.2.840.1 [id number] Methodi 12:57:38 23:59:[id number] 3.430.2.7 Hospit a .3.477473 l .8 2021-05-18 2021-05-18 [facility] 1.2.840.1 [id number] Methodi 12:57:38 23:59:[id number] 3.430.2.7 Hospit a .3.021773 l .8 2021-05-18 2021-05-18 Office Marina, 1.2.840.1 [id number] Methodi 13:15:00 15:18:57 Visit Tony RJonathon [id number] 3.430.2.7 Hospit a .3.784470 l .8 2021-05-18 2021-05-18 Office Marina, 1.2.840.1 [id number] Methodi 13:15:00 15:18:57 Visit Tony RJonathon [id number] 3.430.2.7 Hospit a .3.664444 l .8 2021-05-18 2021-05-18 Outpatient [facility] [id number] [place] 00:00:00 00:00:[address] 2021-05-18 2021-05-18 Orders Marina, 1.2.840.1 [id number] Methodi 00:00:00 00:00:00 Only Tony Hdz [id number] 3.430.2.7 Hospit a .3.967219 l .8 2021-05-18 2021-05-18 Orders Marina 1.2.840.1 [id number] Methodi 00:00:00 00:00:00 Only Tony Hdz [id number] 3.430.2.7 Hospit a .3.760064 l .8 2021-05-16 2021-05-16 Outpatient ROSI ALARCON [id number] Rosi 00:00:00 00:00:00 ALFONZO armendariz 2021-05-11 2021-05-11 Outpatient ROSI ALARCON [id number] Rosi 00:00:00 00:00:00 ALFONZO Stevensol marcello 2021-05-11 2021-05-11 Outpatient ROSI ALARCON [id number] Rosi 00:00:00 00:00:00 ALFONZO Stevensol marcello 2021-04-28 2021-04-28 Office Jered Alarcon [id number] Rosi 09:39:43 10:09:43 Visit Alfonoz Montenegro [id number] Se bradenfiona Rolanda 1.2.7.2.686 [id number] 2021-04-27 2021-04-27 Ambulatory nullFlavo MNA [id number] Memoria 15:15:00 15:15:00 Pre-Reg r Neurology 13 l Dittmer Luca 2021-04-27 2021-04-27 Ambulatory nullFlavo MNA [id number] Memoria 15:15:00 15:15:00 Pre-Reg r Neurology 13 l Nik Segovia 2021-04-27 2021-04-27 Outpatient DIMAIE TYRA [id number] Memoria 10:15:00 10:15:00 13 l Luca 2021-04-27 2021-04-27 Outpatient DIMA EspinalMENURY [facility] [facility] [id number] 10:15:00 10:15:00 Malcom Graham 2021-04-21 2021-04-21 ambulatory STLMLC STLMLC [id number] Common 00:00:00 00:00:00 [facility] 2021-04-12 2021-04-12 Outpatient STLMLC STLMLC [id number] Common 00:00:00 00:00:00 [facility] 2021-04-06 2021-04-06 ambulatory STLMLC STLMLC [id number] Common 00:00:00 00:00:00 [facility] 2021-03-31 2021-03-31 Outpatient STLMLC STLMLC [id number] Common 00:00:00 00:00:00 [facility] 2021-03-30 2021-03-30 Outpatient STLMLC STLMLC [id number] Common 00:00:00 00:00:00 [facility] 2021-03-30 2021-03-30 Outpatient STLMLC STLMLC [id number] Common 00:00:00 00:00:00 [facility] 2021-03-28 2021-03-28 Outpatient ROYCE DELEON [facility] [id number] Univers 10:30:00 10:30:00 [id number] [facility] 2021-03-28 2021-03-28 Outpatient Sctot PRUETT ROYCE [facility] [id number] Univers 10:30:00 10:30:00 [facility] 2021-03-16 2021-03-17 Outpatient nullFlavo MNA [id number] Memoria 13:15:00 04:59:59 r Neurology 12 l Nik Segovia 2021-03-16 2021-03-17 Outpatient nullFlavo MNA [id number] Memoria 13:15:00 04:59:59 r Neurology 12 l Nik Segovia 2021-03-17 2021-03-17 Outpatient STLMLC STLMLC [id number] Common 00:00:00 00:00:00 [facility] 2021-03-16 2021-03-16 Outpatient VIRGILIO Espinal MICHAEL [id number] 08:15:00 23:59:59 Malcom Devonte Graham 2021-03-16 2021-03-16 Outpatient MHIE MHIE [id number] Memoria 08:15:00 08:15:00 12 violet Segovia 2021-02-23 2021-02-23 Outpatient STLMLC STLMLC [id number] Common 00:00:00 00:00:00 [facility] 2021-02-21 2021-02-21 Outpatient STLMLC STLMLC [id number] Common 00:00:00 00:00:00 [facility] 2021-02-16 2021-02-16 Outpatient STLMLC STLMLC [id number] Common 00:00:00 00:00:00 [facility] 2021-02-15 2021-02-15 Outpatient STLMLC STLMLC [id number] Common 00:00:00 00:00:00 [facility] 2021-02-11 2021-02-11 Outpatient Scott PERES [facility] [id number] Univers 08:15:00 08:56:02 ESTER [facility] 2021-02-11 2021-02-11 [facility] [id number] Univers 08:13:08 08:56:02 Visit [facility] [id number] it y of SURGICAL [id number] [place] as SPECIALTI [phone] Wi dical ES 198 [facility] 2021-02-11 2021-02-11 Outpatient Scott PERES [facility] [id number] Univers 08:15:00 08:15:00 ESTER [id number] [facility] 2021-02-10 2021-02-10 Outpatient Scott WOOD [facility] [id number] Univers 13:00:00 13:00:00 MG [id number] [facility] 2021-02-10 2021-02-10 Outpatient Scott WOOD [facility] [id number] Univers 13:00:00 13:00:00 MG [facility] 2021-02-03 2021-02-03 Outpatient Scott WOOD [facility] [id number] Univers 10:30:00 10:30:00 MG [id number] [facility] 2021-02-03 2021-02-03 Outpatient Scott WOOD [facility] [id number] Univers 10:30:00 10:30:00 MG [facility] 2021-02-01 2021-02-02 Outpatient nullFlavo MNA [id number] Memoria 18:30:00 04:59:59 r Neurology 11 l Nik Harringtonann 2021-02-01 2021-02-02 Outpatient nullFlavo MNA [id number] Memoria 18:30:00 04:59:59 r Neurology 11 l Dittmerrefugio Harringtonann 2021-02-01 2021-02-01 Outpatient [facility] [id number] 13:30:00 23:59:59 Malcom Ashlee Graham 2021-02-01 2021-02-01 Outpatient MHIE DIMAIE [id number] Memoria 13:30:00 13:30:00 11 violet Luca 2021-01-20 2021-01-20 Outpatient STLMLC STLMLC [id number] Common 00:00:00 00:00:00 [facility] 2021-01-14 2021-01-14 Outpatient STLMLC STLMLC [id number] Common 00:00:00 00:00:00 [facility] 2020-12-23 2020-12-23 Outpatient Scott JAFFE [facility] [id number] Univers 10:00:00 10:00:00 DEMETRIA [facility] 2020-12-23 2020-12-23 Outpatient Scott OLSON [facility] [id number] Univers 09:00:00 09:00:00 WONDIFUL [id number] ity o f [facility] 2020-12-23 2020-12-23 Outpatient Scott OLSON [facility] [id number] Univers 09:00:00 09:00:00 WONDIFUL ity o f [facility] 2020-12-16 2020-12-16 Outpatient Scott WOOD [facility] [id number] Univers 10:30:00 10:30:00 MG [id number] [facility] 2020-12-16 2020-12-16 Outpatient Scott WOOD [facility] [id number] Univers 10:30:00 10:30:00 [facility] 2020-12-15 2020-12-15 Outpatient STLMLC STLMLC [id number] Common 00:00:00 00:00:00 [facility] 2020-12-15 2020-12-15 Outpatient STLMLC STLMLC [id number] Common 00:00:00 00:00:00 [facility] 2020-12-06 2020-12-06 Outpatient Scott WOOD [facility] [id number] Univers 15:30:00 15:30:00 MG [id number] [facility] 2020-12-06 2020-12-06 Outpatient Scott WOOD [facility] [id number] Univers 15:30:00 15:30:00 MG [facility] 2020-11-25 2020-11-25 Outpatient SEBLEROYCE [facility] [id number] Univers 09:00:00 09:00:00 [id number] [facility] 2020-11-25 2020-11-25 Outpatient Scott PRUETT ROYCE [facility] [id number] Univers 09:00:00 09:00:00 [facility] 2020-11-11 2020-11-11 Outpatient Scott PRUETT ROYCE [facility] [id number] Univers 15:30:00 15:30:00 [id number] [facility] 2020-11-11 2020-11-11 Outpatient Scott PRUETTROYCE [facility] [id number] Univers 15:30:00 15:30:00 [facility] 2020-11-04 2020-11-04 Outpatient Scott PHILLIPS [facility] [id number] Univers 10:00:00 10:00:00 EMELYN [id number] [facility] 2020-11-04 2020-11-04 Outpatient Scott PHILLIPS [facility] [id number] Univers 10:00:00 10:00:00 EMELYN [facility] 2020-10-28 2020-10-28 Outpatient Scott NINA [facility] [id number] Univers 10:45:00 10:45:00 MG [id number] [facility] 2020-10-28 2020-10-28 Outpatient Scott WOOD [facility] [id number] Univers 10:45:00 10:45:00 MG [facility] 2020-10-25 2020-10-25 Outpatient Scott NINA [facility] [id number] Univers 14:45:00 14:45:00 MG [id number] [facility] 2020-10-25 2020-10-25 Outpatient Scott NINA [facility] [id number] Univers 14:45:00 14:45:[facility] 2020-10-15 2020-10-15 Outpatient Scott NINA [facility] [id number] Univers 10:00:00 10:00:00 MG [id number] [facility] 2020-10-15 2020-10-15 Outpatient Scott NINA [facility] [id number] Univers 10:00:00 10:00:00 [facility] 2020-10-08 2020-10-08 Outpatient R [facility] [id number] Univers 09:30:00 09:30:00 [id number] [facility] 2020-10-08 2020-10-08 Outpatient R JA, [facility] [id number] Univers 09:30:00 09:30:00 ESTER [facility] 2020-10-08 2020-10-08 Outpatient R BRITTNEY, [facility] [id number] Univers 09:15:00 09:15:00 OSCAR [facility] 2020-09-24 2020-09-25 Outpatient nullFlavo MNA [id number] Memoria 19:00:00 05:59:59 r Neurology 10 l Nik Segovia 2020-09-24 2020-09-25 Outpatient nullFlavo MNA [id number] Memoria 19:00:00 05:59:59 r Neurology 10 l Nik Segovia 2020-09-24 2020-09-24 Outpatient VIPUL EspinalSCHER MHMISCHER [id number] 13:00:00 23:59:59 Malcom Graham 2020-09-24 2020-09-24 Outpatient MHIE MHIE [id number] Memoria 13:00:00 13:00:00 10 violet Luca 2020-09-24 2020-09-24 Outpatient Scott WOOD [facility] [id number] Univers 09:45:00 09:45:00 MG [id number] [facility] 2020-09-24 2020-09-24 [id number] Univers 09:45:00 09:45:00 MG [facility] 2020-09-21 2020-09-21 [facility] [id number] Univers 14:00:00 14:00:00 ESTER [id number] [facility] 2020-09-21 2020-09-21 [facility] [id number] Univers 00:00:00 00:00:00 ESTER [facility] 2020-09-09 2020-09-09 [facility] [id number] Univers 09:15:00 09:15:00 ESTER [id number] [facility] 2020-09-09 2020-09-09 [facility] [id number] Univers 09:15:00 09:15:00 ESTER [facility] 2020-09-06 2020-09-06 Ambulatory nullFlavo MNA [id number] Memoria 16:30:00 16:30:00 Pre-Reg r Neurology 09 l Dittmer Luca 2020-09-06 2020-09-06 Ambulatory nullFlavo MNA [id number] Memoria 16:30:00 16:30:00 Pre-Reg r Neurology 09 l Nik Segovia 2020-09-06 2020-09-06 Outpatient MHIE MHIE [id number] Memoria 10:30:00 10:30:00 09 violet Segovia 2020-09-06 2020-09-06 Outpatient VIPUL EspinalSCHER MHMISCHER [id number] 10:30:00 10:30:00 Malcom 09 Santos 2020-07-14 2020-07-14 Outpatient R [facility] [id number] Univers 19:00:00 19:00:00 [id number] ity of [facility] 2020-07-14 2020-07-14 Outpatient R CHRISTIANNE, [facility] [id number] Univers 19:00:00 19:00:00 BROOKE serrano [facility] 2020-07-02 2020-07-02 Steven JEAN [facility] Orthopedics [id number] [place] 14:30:00 14:30:00 t; RAJI JEAN BAPTISTE, - Sugar Phys ici RAJI, DPM [place] 2 ans DPM 2020-06-01 2020-06-01 Ambulatory nullFlavo MNA [id number] Memoria 20:00:00 20:00:00 Pre-Reg r Neurology 08 l Dittmer Leon 2020-06-01 2020-06-01 Ambulatory nullFlavo MNA [id number] Memoria 20:00:00 20:00:00 Pre-Reg r Neurology 08 l Dittmer Luca 2020-06-01 2020-06-01 Outpatient MHIE MHIE [id number] Memoria 14:00:00 14:00:00 08 l Luca 2020-06-01 2020-06-01 [address]IO Espinal [id number] 14:00:00 14:00:00 Malcom 08 Santos 2020-05-31 2020-05-31 Steven JEAN [facility] Orthopedics [id number] [place] 10:00:00 10:00:00 t; RAJI JEAN BAPTISTE, - Sugar Phys ici RAJI, DPM [place] 2 ans DPM 2020-05-10 2020-05-10 Steven JEAN [facility] Orthopedics [id number] [place] 09:00:00 09:00:00 t; RAJI JEAN BAPTISTE, - Sugar Phys ici RAJI, DPM [place] 2 ans DPM 2020-04-27 2020-04-27 Steven JEAN [facility] Orthopedics [id number] [place] 14:45:00 14:45:00 t; RAJI JEAN BAPTISTE, - Sugar Phys ici RAJI, DPM [place] 2 ans DPM 2020-03-29 2020-03-29 Steven JEAN [facility] Orthopedics [id number] [place] 13:00:00 13:00:00 t; RAJI JEAN BAPTISTE, - Sugar Phys ici RAJI, DPM [place] 2 ans DPM 2020-03-08 2020-03-08 [facility] [id number] [place] 11:15:00 11:15:00 t; ARJI JEAN BAPTISTE, - Sugar Phys ici RAJI, DPM [place] 2 ans DPM 2020-02-26 2020-02-26 Outpatient nullFlavo [facility] [id number] Memoria 10:46:09 16:30:00 [facility] 2020-02-26 2020-02-26 Outpatient nullFlavo [facility] [id number] Memoria 10:46:09 16:30:00 [facility] 2020-02-26 2020-02-26 Outpatient nullFlavo [facility] [id number] Memoria 05:46:09 11:30:00 [facility] 2020-02-26 2020-02-26 Outpatient Markel [id number] 05:46:09 11:30:00 Raji 8 2020-02-26 2020-02-26 [facility] [id number] [place] 10:30:00 10:30:00 t; RAJI JEAN BAPTISTE, - Sugar Phys ici RAJI, DPM [place] 2 ans DP 2020-02-02 2020-02-02 [facility] [id number] [place] 10:45:00 10:45:00 t; RAJI JEAN BAPTISTE, - Sugar Phys ici RAJI, DPM [place] 2 ans DP 2020-01-15 2020-01-16 Outpatient nullFlavo MNA [id number] Memoria 20:00:00 04:59:59 r Neurology 07 l Dittmer Luca 2020-01-15 2020-01-16 Outpatient nullFlavo MNA [id number] Memoria 20:00:00 04:59:59 r Neurology 07 l Dittmer Luca 2020-01-15 2020-01-15 Outpatient VIRGILIO Espinal [id number] 15:00:00 23:59:59 Malcom 07 Santos 2020-01-15 2020-01-15 Ambulatory nullFlavo MNA [id number] Memoria 20:00:00 20:00:00 Pre-Reg r Neurology 06 l Nik Segovia 2020-01-15 2020-01-15 Ambulatory nullFlavo MNA [id number] Memoria 20:00:00 20:00:00 Pre-Reg r Neurology 06 l Nik Segovia 2020-01-15 2020-01-15 Outpatient MHIE MHIE [id number] Memoria 15:00:00 15:00:00 06 violet Luca 2020-01-15 2020-01-15 Outpatient MHIE MHIE [id number] Memoria 15:00:00 15:00:00 07 violet Luca 2020-01-15 2020-01-15 Outpatient DIMA EspinalMESCHER MISCHER [id number] 15:00:00 15:00:00 Malcom Graham 2019-12-02 2019-12-03 Outpatient nullFlavo MNA [id number] Memoria 20:30:00 04:59:59 r Neurology 05 violet Zaragoza Leon 2019-12-02 2019-12-03 Outpatient nullFlavo MNA [id number] Memoria 20:30:00 04:59:59 r Neurology 05 violet Zaragoza Luca 2019-12-02 2019-12-02 Out[facility] [facility]SCHER [id number] 15:30:00 23:59:59 Malcom Rere Santos 2019-12-02 2019-12-02 Outpatient MHIE DIMAIE [id number] Memoria 15:30:00 15:30:00 05 violet Luca 2019-05-23 2019-05-23 Ambulatory nullFlavo MNA [id number] Memoria 19:15:00 19:15:00 Pre-Reg r Neurology 04 violet Harringtonann 2019-05-23 2019-05-23 Ambulatory nullFlavo MNA [id number] Memoria 19:15:00 19:15:00 Pre-Reg r Neurology 04 violet Dittmer Leon 2019-05-23 2019-05-23 Outpatient MHIE MHIE [id number] Memoria 13:15:00 13:15:00 Connor violet Luca 2019-05-23 2019-05-23 Outpatient VIPUL EspinalSCHER MISCHER [id number] 13:15:00 13:15:00 Malcomlindy Graham 2019-03-23 2019-03-23 Emergency [facility] [id number] 12:37:57 13:11:00 [place] [id number] [place] [id number] [place] [id number] 2019-03-23 2019-03-23 Orders Doctor SPENSER [id number] 00:00:00 00:00:00 Only Unassigned, MARIA ELENA [id number] [place] [facility] [id number] 2019-02-14 2019-02-15 Outpatient nullFlavo MNA [id number] Memoria 20:00:00 04:59:59 r Neurology 02 violet Dittmer Luca 2019-02-14 2019-02-15 Outpatient nullFlavo MNA [id number] Memoria 20:00:00 04:59:59 r Neurology 02 Nik Segovia 2019-02-14 2019-02-14 Outpatient VIPUL EspinalSCHER MHMISCHER [id number] 15:00:00 23:59:59 Malcom 02 Santos 2019-02-14 2019-02-14 Outpatient MHIE MHIE [id number] Memoria 15:00:00 15:00:00 02 violet Segovia 2018-12-24 2018-12-25 Outpatient nullFlavo MNA [id number] Memoria 20:15:00 04:59:59 r Neurology 03 Nik Segovia 2018-12-24 2018-12-25 Outpatient nullFlavo MNA [id number] Memoria 20:15:00 04:59:59 r Neurology 03 l Nik Segovia 2018-12-24 2018-12-24 Outpatient VIPUL EspinalSCHER MHMISCHER [id number] 15:15:00 23:59:59 Malcom 03 Santos 2018-12-24 2018-12-24 Outpatient MHIE MHIE [id number] Memoria 15:15:00 15:15:00 03 violet Leon 2018-12-20 2018-12-21 Outpatient nullFlavo MNA [id number] Memoria 18:45:00 04:59:59 r Neurology 01 violet Segovia 2018-12-20 2018-12-21 Outpatient nullFlavo MNA [id number] Memoria 18:45:00 04:59:59 r Neurology 01 l Dittmer Leon 2018-12-20 2018-12-20 Outpatient VIRGILIO Espinal MICHAEL [id number] 13:45:00 23:59:59 Malcom 01 [facility] 2018-12-20 2018-12-20 Outpatient TYRA MARY [id number] Memoria 13:45:00 13:45:00 01 violet Leon 2018-11-22 2018-11-23 Outpatient nullFlavo MNA [id number] Memoria 19:45:00 04:59:59 r Neurology 00 l [facility] 2018-11-22 2018-11-23 Outpatient nullFlavo MNA [id number] Memoria 19:45:00 04:59:59 r Neurology 00 l Dittmer Leon 2018-11-22 2018-11-22 Out[facility]IO Espinal [facility] [id number] 14:45:00 23:59:59 Malcom 00 [facility] 2018-11-22 2018-11-22 Outpatient TYRA MARY [id number] Memoria 14:45:00 14:45:00 00 [facility] Results Test Description Test Time Test Comments Results Result Comments Source LABORATORY 2020-02-18 17:38:00 Test Item Value Reference Range Interpretation Comme nts Glucose Lvl (test code = Glucose Lvl) 89 70-99 [place] 117420-08-05 17:38:00 Test Item Value Reference Range Interpretation Comments BUN (test code = BUN) 12 7-22 [place] 117420-08-05 17:38:00 Test Item Value Reference Range Interpretation Comments Creatinine (test code = Creatinine) 0.79 0.50-1.40 [place] 117420-08-05 17:38:00 Test Item Value Reference Range Interpretation Comments Sodium Level (test code = Sodium Level) 141 135-145 [place] 117420-08-05 17:38:00 Test Item Value Reference Range Interpretation Comments Potassium Level (test code = Potassium 4.5 3.5-5.1 Level) [place] 117420-08-05 17:38:00 Test Item Value Reference Range Interpretation Comments Chloride Level (test code = Chloride 108 95-109 Level) [id number] 17:38:00 Test Item Value Reference Range Interpretation Comments Total Carbon Dioxide Level (test code = 24 24-32 Total Carbon Dioxide Level) [place] [address]-08-05 17:38:00 Test Item Value Reference Range Interpretation Comments AGAP (test code = AGAP) 13.5 10.0-20.0 [place] [address]-08-05 17:38:00 Test Item Value Reference Range Interpretation Comments Calcium Level (test code = Calcium 9.5 8.5-10.5 Level) [address]08-05 17:38:00 Test Item Value Reference Range Interpretation Comments eGFR (test code = eGFR) 92 [place] [address]-08-05 17:38:00 Test Item Value Reference Range Interpretation Comments Results (test code = Reported (02/18/20 12:38 Results) PM) [address]08-05 17:38:00 Test Item Value Reference Range Interpretation Comments White Blood Count (test code = White 6.4 3.7-10.4 Blood Count) [address]08-05 17:38:00 Test Item Value Reference Range Interpretation Comments Red Blood Cell Count (test code = Red 4.37 4.20-5.40 Blood Cell Count) [address]08-05 17:38:00 Test Item Value Reference Range Interpretation Comments Hemoglobin (test code = Hemoglobin) 12.7 12.0-16.[address]08-05 17:38:00 Test Item Value Reference Range Interpretation Comments Hematocrit (test code = Hematocrit) 38.3 36.0-48.[address]08-05 17:38:00 Test Item Value Reference Range Interpretation Comments MCV (test code = MCV) 87.5 80.0-98.[address]08-05 17:38:00 Test Item Value Reference Range Interpretation Comments MCH (test code = MCH) 29.2 pg 27.0-31.0 [place] [address]-08-05 17:38:00 Test Item Value Reference Range Interpretation Comments MCHC (test code = MCHC) 33.3 32.0-36.0 [id number] 17:38:00 Test Item Value Reference Range Interpretation Comments RDW (test code = RDW) 14.2 11.5-14.5 [id number] 17:38:00 Test Item Value Reference Range Interpretation Comments Platelet (test code = Platelet) 300 133-450 [id number] 17:38:00 Test Item Value Reference Range Interpretation Comments MPV (test code = MPV) 8.3 7.4-10.4 [id number] 17:38:00 Test Item Value Reference Range Interpretation Comments NRBCs # (test code = NRBCs #) 0.1 0.4-2.2 [place] [address]-08-05 17:38:00 Test Item Value Reference Range Interpretation Comments Results (test code = Reported (02/18/20 12:38 Results) PM) [address]08-05 17:38:00 Test Item Value Reference Range Interpretation Comments Neutrophil % (test code = Neutrophil %) 62.2 45.0-75.0 [place] 117420-08-05 17:38:00 Test Item Value Reference Range Interpretation Comments Monocyte % (test code = Monocyte %) 6.8 2.0-12.0 [id number] 17:38:00 Test Item Value Reference Range Interpretation Comments Lymphocyte % (test code = Lymphocyte %) 26.9 20.0-40.0 [place] 117420-08-05 17:38:00 Test Item Value Reference Range Interpretation Comments Eosinophil # (test code 3.6 See_Comment [Au tomated message] The = Eosinophil #) system which generated this result tra nsmitted reference range : <=4.0. The reference r karan was not used to int erpret this result as normal/abnormal . [place] [address]-08-05 17:38:00 Test Item Value Reference Range Interpretation Comments Basophil % (test code = 0.5 See_Comment [Au tomated message] The Basophil %) system which ge nerated this result tra nsmitted reference range : <=1.0. The reference r karan was not used to int erpret this result as normal/abnormal . [id number] 17:38:00 Test Item Value Reference Range Interpretation Comments Neutrophil # (test code = Neutrophil #) 4.0 1.5-8.1 [id number] 17:38:00 Test Item Value Reference Range Interpretation Comments Lymphocyte # (test code = Lymphocyte #) 1.7 1.0-5.5 [id number] 17:38:00 Test Item Value Reference Range Interpretation Comments Monocyte # (test code = 0.4 See_Comment [Au tomated message] The Monocyte #) system which ge nerated this result tra nsmitted reference range : <=0.8. The reference r karan was not used to int erpret this result as normal/abnormal . [facility] [id number] 17:38:00 Test Item Value Reference Range Interpretation Comments Eosinophil % (test code 0.2 See_Comment [Au tomated message] The = Eosinophil %) system which generated this result tra nsmitted reference range : <=0.5. The reference r karan was not used to int erpret this result as normal/abnormal . [facility] [id number] 17:38:00 Test Item Value Reference Range Interpretation Comments Results (test code = Reported (02/18/20 12:38 Results) PM) [facility]is[id number] 17:38:00 Test Item Value Reference Range Interpretation Comments Glucose Lvl (test code = Glucose Lvl) 89 70-99 [facility] [id number] 17:38:00 Test Item Value Reference Range Interpretation Comments BUN (test code = BUN) 12 7-22 [facility] [id number] 17:38:00 Test Item Value Reference Range Interpretation Comments Creatinine (test code = Creatinine) 0.79 0.50-1.40 [facility] [id number] 17:38:00 Test Item Value Reference Range Interpretation Comments Sodium Level (test code = Sodium Level) 141 135-145 [facility] [id number] 17:38:00 Test Item Value Reference Range Interpretation Comments Potassium Level (test code = Potassium 4.5 3.5-5.1 Level) [facility] [id number] 17:38:00 Test Item Value Reference Range Interpretation Comments Chloride Level (test code = Chloride 108 95-109 Level) [facility] [id number] 17:38:00 Test Item Value Reference Range Interpretation Comments Total Carbon Dioxide Level (test code = 24 24-32 Total Carbon Dioxide Level) [place] 117420-08-05 17:38:00 Test Item Value Reference Range Interpretation Comments AGAP (test code = AGAP) 13.5 10.0-20.0 [place] 117420-08-05 17:38:00 Test Item Value Reference Range Interpretation Comments Calcium Level (test code = Calcium 9.5 8.5-10.5 Level) [id number] 17:38:00 Test Item Value Reference Range Interpretation Comments eGFR (test code = eGFR) 92 [facility] [id number] 17:38:00 Test Item Value Reference Range Interpretation Comments Results (test code = Reported (02/18/20 12:38 Results) PM) [id number] 17:38:00 Test Item Value Reference Range Interpretation Comments White Blood Count (test code = White 6.4 3.7-10.4 Blood Count) [facility] [id number] 17:38:00 Test Item Value Reference Range Interpretation Comments Red Blood Cell Count (test code = Red 4.37 4.20-5.40 Blood Cell Count) [facility] [id number] 17:38:00 Test Item Value Reference Range Interpretation Comments Hemoglobin (test code = Hemoglobin) 12.7 12.0-16.0 [place] [address]-08-05 17:38:00 Test Item Value Reference Range Interpretation Comments Hematocrit (test code = Hematocrit) 38.3 36.0-48.0 [place] [address]-08-05 17:38:00 Test Item Value Reference Range Interpretation Comments MCV (test code = MCV) 87.5 80.0-98.0 [place] [address]-08-05 17:38:00 Test Item Value Reference Range Interpretation Comments MCH (test code = MCH) 29.2 pg 27.0-31.0 [facility] [id number] 17:38:00 Test Item Value Reference Range Interpretation Comments MCHC (test code = MCHC) 33.3 32.0-36.0 [facility] [id number] 17:38:00 Test Item Value Reference Range Interpretation Comments RDW (test code = RDW) 14.2 11.5-14.5 [facility] [id number] 17:38:00 Test Item Value Reference Range Interpretation Comments Platelet (test code = Platelet) 300 133-450 [facility] [id number] 17:38:00 Test Item Value Reference Range Interpretation Comments MPV (test code = MPV) 8.3 7.4-10.4 [facility] [id number] 17:38:00 Test Item Value Reference Range Interpretation Comments NRBCs # (test code = NRBCs #) 0.1 0.4-2.2 [facility] [id number] 17:38:00 Test Item Value Reference Range Interpretation Comments Results (test code = Reported (02/18/20 12:38 Results) PM) [facility] [id number] 17:38:00 Test Item Value Reference Range Interpretation Comments Neutrophil % (test code = Neutrophil %) 62.2 45.0-75.0 [facility] [id number] 17:38:00 Test Item Value Reference Range Interpretation Comments Monocyte % (test code = Monocyte %) 6.8 2.0-12.0 [facility] [id number] 17:38:00 Test Item Value Reference Range Interpretation Comments Lymphocyte % (test code = Lymphocyte %) 26.9 20.0-40.0 [facility] [id number] 17:38:00 Test Item Value Reference Range Interpretation Comments Eosinophil # (test code 3.6 See_Comment [Au tomated message] The = Eosinophil #) system which generated this result tra nsmitted reference range : <=4.0. The reference r karan was not used to int erpret this result as normal/abnormal . [facility] [id number] 17:38:00 Test Item Value Reference Range Interpretation Comments Basophil % (test code = 0.5 See_Comment [Au tomated message] The Basophil %) system which ge nerated this result tra nsmitted reference range : <=1.0. The reference r karan was not used to int erpret this result as normal/abnormal . [facility] [id number] 17:38:00 Test Item Value Reference Range Interpretation Comments Neutrophil # (test code = Neutrophil #) 4.0 1.5-8.1 [facility] [id number] 17:38:00 Test Item Value Reference Range Interpretation Comments Lymphocyte # (test code = Lymphocyte #) 1.7 1.0-5.5 [facility] [id number] 17:38:00 Test Item Value Reference Range Interpretation Comments Monocyte # (test code = 0.4 See_Comment [Au tomated message] The Monocyte #) system which ge nerated this result tra nsmitted reference range : <=0.8. The reference r karan was not used to int erpret this result as normal/abnormal . [facility] [id number] 17:38:00 Test Item Value Reference Range Interpretation Comments Eosinophil % (test code 0.2 See_Comment [Au tomated message] The = Eosinophil %) system which generated this result tra nsmitted reference range : <=0.5. The reference r karan was not used to int erpret this result as normal/abnormal . [facility] [id number] 17:38:00 Test Item Value Reference Range Interpretation Comments Results (test code = Reported (02/18/20 12:38 Results) PM) [facility]
--- NOTE | 2022-04-02 18:27 | ER ---
Nurse's Notes [facility] Name: Trudi Villavicencio Age: 46 yrs Sex: Female : 1975 Arrival Date: 04/02/2022 Time: 18:05 Bed 11 Private MD: Diagnosis: Laceration without foreign body of right ring finger without damage to nail Presentation: 04/02 18:13 Acuity: HOWIE 4 hb 18:14 Chief complaint: Right 5th finger laceration from knife. Bleeding controlled. hb Coronavirus screen: At this time, the client does not indicate any symptoms associated with coronavirus-19. Ebola Screen: No symptoms or risks identified at this time. Initial Sepsis Screen: Does the patient meet any 2 criteria? No. Patient's initial sepsis screen is negative. Does the patient have a suspected source of infection? No. Patient's initial sepsis screen is negative. Risk Assessment: Do you want to hurt yourself or someone else? Patient reports no desire to harm self or others. Onset of symptoms was April 02, 2022. 18:14 Method Of Arrival: Ambulatory hb Historical: - Allergies: 18:15 Aspirin; hb 18:15 Codeine; hb 18:15 Topamax; hb 18:15 tramadol; hb - PMHx: 18:15 gastritis; neuropathy; osteoarthritis; Radiculopathy; hb - Immunization history:: Adult Immunizations up to date. - Social history:: Smoking status: Patient denies any tobacco usage or history of. Screenin:34 Abuse screen: Denies threats or abuse. Denies injuries from another. Nutritional ss screening: No deficits noted. Tuberculosis screening: Never had TB. Fall Risk None identified. Assessment: 18:37 Reassessment: Awaiting for Boostrix to come from pharmacy. General: Appears in no ss apparent distress. comfortable, Behavior is calm, cooperative. Pain: Complains of pain in finger Pain currently is 7 out of 10 on a pain scale. Quality of pain is described as tender. Neuro: Level of Consciousness is awake, alert, obeys commands. Respiratory: Airway is patent Respiratory effort is even, unlabored. Derm: Skin is pink, warm \T\ dry. normal. Vital Signs: 18:14 BP 125 / 90; Pulse 81; Resp 18; Temp 97.2; Pulse Ox 98% ; Weight 114.76 kg; Height 5 hb ft. 3 in. (160.02 cm); Pain 7/10; 18:14 Body Mass Index 44.82 (114.76 kg, 160.02 cm) ED Course: 18:05 Patient arrived in ED. am2 18:07 Sunil Douglas DO is Attending Physician. ms3 18:07 Kapil Gallardo PA is PHCP. [facility] 18:13 Triage completed. hb 18:15 Arm band placed on. hb 18:17 Alexus Harris, BECK is Primary Nurse. ss 18:24 Elio Severino DO is Referral Physician. ms3 18:34 Patient has correct armband on for positive identification. Bed in low position. ss 18:40 No provider procedures requiring assistance completed. Patient did not have IV access ss during this emergency room visit. Administered Medications: 18:37 Drug: Neosporin (guuotcwu-lmhwqckabz-vdqldmtoc) Ointment 1 application Route: Topical; ss Site: wound; 18:47 Drug: boosterix 0.5 ml Route: IM; Site: left deltoid; ss 18:48 Follow up: Response: Medication administered at discharge. ss Medication: 18:37 Vaccine Information Statement (VIS) provided today. Questions and/or concerns ss addressed. VIS edition date: February 2021. Outcome: 18:27 Discharge ordered by . ms3 18:40 Condition: good ss 18:40 Discharge instructions given to patient, Instructed on discharge instructions, follow up and referral plans. Demonstrated understanding of instructions, follow-up care, wound care. 18:49 Discharged to home ambulatory. ss 18:49 Patient left the ED. ss Signatures: Kapil Gallardo PA PA Alexus Blackwell, RN RN Reina Rolle, BECK RN Michelle Barr am2 Sunil Douglas DO DO ms3 Corrections: (The following items were deleted from the chart) 18:16 18:14 Temp 97.2F; hb hb 18:49 18:37 VIS not applicable for this client. ss ss
--- NOTE | 2022-04-02 18:27 | EDPHYS ---
Physician Documentation [facility] Name: Trudi Villavicencio Age: 46 yrs Sex: Female : 1975 Arrival Date: 04/02/2022 Time: 18:05 Bed 11 Private MD: ED Physician Sunil Douglas HPI: 04/02 18:17 This 46 yrs old Female presents to ER via Ambulatory with complaints of Laceration - ms3 finger. 18:17 46-year-old female with medical history of gastritis, neuropathy, osteoarthritis, ms3 radiculopathy presents for right small finger laceration. Patient states she was cutting her dogs chicken at 4 PM when she cut her finger. Patient states she is having moderate pain in her finger. Patient denies alleviating or inciting factors. Patient is not aware of her last tetanus vaccination.. Historical: - Allergies: 18:15 Aspirin; hb 18:15 Codeine; hb 18:15 Topamax; hb 18:15 tramadol; hb - PMHx: 18:15 gastritis; neuropathy; osteoarthritis; Radiculopathy; hb - Immunization history:: Adult Immunizations up to date. - Social history:: Smoking status: Patient denies any tobacco usage or history of. ROS: 18:18 Constitutional: Negative for fever, and chills. Neck: Negative for injury, pain, and ms3 swelling, Cardiovascular: Negative for chest pain, and palpitations. Respiratory: Negative for shortness of breath, cough, wheezing, and pleuritic chest pain, Abdomen/GI: Negative for abdominal pain, nausea, vomiting, diarrhea, and constipation, Back: Negative for injury and pain, MS/Extremity: Negative for injury and deformity. 18:18 Skin: Positive for laceration(s). 18:18 All other systems are negative. Exam: 18:18 Constitutional: This is a well developed, well nourished patient who is awake, alert, ms3 and in no acute distress. Head/Face: Normocephalic, atraumatic. Neck: Trachea midline, no cervical lymphadenopathy. Supple, full range of motion without nuchal rigidity, or vertebral point tenderness. No Meningismus. Chest/axilla: Normal chest wall appearance and motion. Nontender with no deformity. Cardiovascular: Regular rate and rhythm with a normal S1 and S2. No gallops, murmurs, or rubs. Normal PMI, no JVD. No pulse deficits. Respiratory: Lungs have equal breath sounds bilaterally, clear to auscultation and percussion. No rales, rhonchi or wheezes noted. No increased work of breathing, no retractions or nasal flaring. Abdomen/GI: Soft, non-tender, with normal bowel sounds. No distension or tympany. No guarding or rebound. No evidence of tenderness throughout. Back: No spinal tenderness. No costovertebral tenderness. Full range of motion. MS/ Extremity: Pulses equal, no cyanosis. Neurovascular intact. Full, normal range of motion. Psych: Awake, alert, with orientation to person, place and time. Behavior, mood, and affect are within normal limits. 18:18 Skin: injury, laceration(s), the wound is approximately 1 cm(s), of the right 5th digit. Vital Signs: 18:14 BP 125 / 90; Pulse 81; Resp 18; Temp 97.2; Pulse Ox 98% ; Weight 114.76 kg; Height 5 hb ft. 3 in. (160.02 cm); Pain 7/10; 18:14 Body Mass Index 44.82 (114.76 kg, 160.02 cm) hb MDM: 18:16 Patient medically screened. ms3 18:18 Data reviewed: vital signs, nurses notes, and as a result, I will discharge patient. ms3 Counseling: I had a detailed discussion with the patient and/or guardian regarding: the historical points, exam findings, and any diagnostic results supporting the discharge/admit diagnosis, the need for outpatient follow up, to return to the emergency department if symptoms worsen or persist or if there are any questions or concerns that arise at home. ED course: Discussed superficial laceration with patient. Discussed with patient we will place antibiotic ointment with Band-Aid on right fifth finger. All questions were answered. Wound is hemostatic at this time. Patient to follow-up with her primary care physician in 2 to 3 days. Patient understands agrees with plan. Return precautions discussed include worsening symptoms or any other concerns.. Administered Medications: 18:37 Drug: Neosporin (uephldfb-fospcxukta-jtyzqtawf) Ointment 1 application Route: Topical; ss Site: wound; 18:47 Drug: boosterix 0.5 ml Route: IM; Site: left deltoid; ss 18:48 Follow up: Response: Medication administered at discharge. ss Disposition Summary: 04/02/22 18:27 Discharge Ordered Location: Home ms3 Problem: new ms3 Symptoms: are unchanged ms3 Condition: Stable ms3 Diagnosis - Laceration without foreign body of right ring finger without damage to nail ms3 Followup: ms3 - With: lEio Severino DO - When: 2 - 3 days - Reason: Recheck today's complaints Discharge Instructions: - Discharge Summary Sheet ms3 - Laceration Care, Adult ms3 - Laceration Care, Adult, Tgwv-nz-Iyyu ms3 Forms: - Medication Reconciliation Form ms3 - Thank You Letter ms3 - Antibiotic Education ms3 - Prescription Opioid Use ms3 Signatures: Alexus Harris RN RN ss Baxter, Heather, RN RN Sunil Douglas DO DO ms3 Corrections: (The following items were deleted from the chart) 18:18 18:17 46-year-old female with medical history of gastritis, neuropathy, osteoarthritis, ms3 radiculopathy presents for right. ms3
[2022-04-02] MEDS ORDERED: TDAP (DIPHTH,PERTUSS(ACELL),TET VAC) 0.5 ML VIAL IMVAC ONE (19:00)
[2022-04-04 04:07] VITALS: BP 125/90; TEMP 97.2; O2SAT 98
== END 2022-04-02 18:49 | disposition home or self-care (01) ==
LOC: ER 18:04
DX: S61.214A Laceration without foreign body of right ring finger without damage to nail, initial encounter (principal)
CPT/HCPCS: 96372; 99283

== ENCOUNTER 2022-04-27 09:22 | Emergency (ER) | payer SELFPAY ==
--- OUTSIDE RECORDS SUMMARY | 2022-04-27 09:29 | XMS REPORT | Continuity of Care Document ---
:1975 Author Organization [facility] t Address [address] [place] [address] Care Team Providers Name Role Phone Asked, No Pcp Primary Care Physician Unavailable Danie Garcia Attending Clinician Unavailable ESTER PERES Attending Clinician Unavailable HAMZAH CAMPBELL Attending Clinician Unavailable CAT PRITCHETT Attending Clinician Unavailable Cat Pritchett DO Attending Clinician ALFONZO ALARCON Attending Clinician Unavailable Marina PERALTA, Tony Hdz Attending Clinician Alfonzo Alarcon MD Attending Clinician [phone] Malcom Espinal Attending Clinician ROYCE PRUETT Attending Clinician Unavailable Ester Peres MD Attending Clinician MG WOOD Attending Clinician Unavailable DEMETRIA JAFFE Attending Clinician Unavailable THANIA OLSON Attending Clinician Unavailable EMELYN PHILLIPS Attending Clinician Unavailable OSCAR LUGO Attending Clinician Unavailable BROOKE FAUST Attending Clinician Unavailable RAJI JEAN BAPTISTE DPRaeann Attending Clinician Unavailable Raji Jean Baptiste Attending Clinician Palomo Cervantes Attending Clinician Doctor Unassigned, [place] Attending Clinician Unavailable ESTER PERES Admitting Clinician Unavailable Raji Jean Baptiste Admitting Clinician Payers Payer Name Policy Type Policy Number Effective Date Expiration Date S ource [employer] [place] - [id number] 2020 00:00:00 OUT OF STATE BCBS 2 [id number] 2021 00:00:00 Problems Condition Condition Condition Status [...] f medial medial 00:00: g of this [place] meniscus meniscus 00 note Medica l of left of left might be Branch knee as knee as different current current from the injury, injury, original. initial initial Added encounter encounter automatic ally from request for surgery [id number] Secondary Secondary Disease Active Overview: Univers oligomenor oligomenor 4-08 Formattin ity of pete pete 00:00: g of this [place] 00 note Medical might be Branch different from the original. 10/21/18 - DepoProve ra started05/03 - EMB benign Vitamin D Vitamin D Disease Active Uni vers deficiency deficiency 1-19 it y of 00:00: [place] 00 Medical Branch Shoulder Shoulder Disease Active Unive rs impingemen impingemen 1-19 it y of t, left t, left 00:00: [place] [facility] Low serum Low serum Disease Active Uni vers HDL HDL 1-12 ity of 00:00: [place] 00 Medical Branch Abnormal Abnormal Disease Active Unive rs thyroid thyroid -12 ity of stimul[place] stimul[place] g hormone g hormone 00 Medi syeda (TSH) (TSH) Branch level level DDD DDD Disease Active Univers (degenerat (degenerat -12 it y of shireen disc shireen disc [...] 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 1 04:01:02 l (disorder) (disorder) 00:00: Vladimir rmann Active 00 07/16/1976 Problem 02/28/2020 reports reaction from [facility] Asthma Asthma Problem Active 2021-09-13 Lev trupti (disorder) (disorder) 00:27:51 l Active Luca Problem 09/13/2021 [facility] Gastritis Gastritis Problem Active 2021-09-13 Memoria (disorder) (disorder) 00:27:51 l Active Spangler Problem 09/13/2021 [facility] Hypertensi Problem Active 2021-09-13 M emoria ve Hypertensi 00:27:51 l disorder, ve [place] systemic disorder, arterial systemic (disorder) arterial (disorder) Active Problem 09/13/2021 [facility] Hypothyroi Hypothyro Problem Active 2021-09-13 Memoria dism idism 00:27:51 l (disorder) (disorder) Vladimir rmann Active Problem 09/13/2021 [facility] Migraine Migraine Problem Active 2021-09-13 Memoria (disorder) (disorder) 00:27:51 l Active Luca Problem 09/13/2021 [facility] Morbid Morbid Problem Active 2021-09-13 Lev trupti obesity obesity 00:27:51 l (disorder) (disorder) Vladimir rmann Active Problem 09/13/2021 [facility] 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 00:27:51 l (disorder) (disorder) He rmann Active Problem 09/13/2021 [facility] Hemangioma Hemangiom Problem Active 2021-09-13 Memoria of a of 00:27:51 l intracrani intracrani He rmmckenna al al structure structure (disorder) (disorder) [facility] Ankle pain Ankle Problem Active 2021-09-13 M emoria (finding) pain 00:27:51 l (finding) Spangler Active Problem 09/13/2021 [facility] Paresthesi Paresthes Problem Active 2021-09-13 Memoria a ia 00:27:51 l (finding) (finding) Herm mckenna Active Problem 09/13/2021 [facility] Lumbar Lumbar Problem Active 2021-09-13 Lev trupti radiculopa radiculopa 00:27:51 l thy thy Spangler (disorder) (disorder) Active Problem 09/13/2021 [facility] Peripheral Periphera Problem Active 2021-09-13 Memoria nerve l nerve 00:27:51 l disease disease Luca (disorder) (disorder) Active Problem 09/13/2021 [facility] Acid Acid Problem Active 2020-02-28 Memor [...] Active U nivers ia ia ity of [facility] Disc Disc Disease Active Univers disease, disease, [place]y of degener[place] degener[place] ve, lumbar ve, lumbar Me dical or or Branch lumbosacra lumbosacra l l Cervical Cervical Disease Active Unive rs herniated herniated ity of disc disc [facility] Lumbar Lumbar Disease Active Univers herniated herniated ity of disc disc [facility] No known No known Disease Metho di active active st problems problems Hospit a l History of Past Illness Condition Condition Condition Status Onset Resolution Last Treating Co mments Source Name Details Category Date Date Treatment Clinician Date Nondisplac Nondispla Problem 2020-02-28 2020-02-28 [facility] ed dome day dome 02-25 04:01:02 04:01:02 [...] [place]a traMADol traMADol Active Memori a l Spangler Family History Family Member Diagnosis Comments Start Date Stop Date Source Natural father Diabetes [facility] Natural father Heart attack [facility] Maternal aunt Cancer [facility] Maternal grandmother Diabetes [facility] Maternal grandmother Stroke [facility] Natural mother Heart attack [facility] Natural mother Heart disease [facility] Social History Social Habit Start Date Stop Date Quantity Comments Source Exposure to Not sure Rosi armendariz SARS-CoV-2 (event) Tobacco use and 2021-05-19 2021-05-19 Smokeless tobacco Me thodist exposure 00:00:00 00:00:00 non-user Hospital Alcohol intake 2021-05-19 2021-05-19 [facility] 00:00:00 00:00:00 non-drinker Hospital (finding) Sex Ass[birth year] At [birth year] S[facility] 00:00:00 00:00:00 Hospital Smoking Status Start Date Stop Date Source Social History [facility] Medications Ordered Filled Start Stop Current Ordering [...] jason 2019,18yr 07-[address] up,rc,PF, 10:53: [id number] Hos helga (Flublok 59 (PF) 180 l Quad mcg (45 [id number], mcg x PF,) 180 4)/0.5 mL mcg (45 mcg IM syringe x 4)/0.5 mL PHARMACIST syringe ADMINISTER ED IMMUNIZATI ON ADMINISTER ED AT TIME OF DISPENSING doxycycline 2020-07 Yes doxycyclin Methodi (VIBRA-TABS 07-[address] ) 100 MG 10:53: 100 mg Hospita tablet 59 tablet l eletriptan 2020-07 Yes eletriptan M ethodi (RELPAX) 40 1-[address] MG tablet 10:53: tablet Hospit a 59 l flu vac qv 2020-07 Yes Flublok Meth jason 2018,18yr 07-[address] up,rc,PF, 10:53: Hos [...] vac qv 2020-07 Yes Flublok Meth jason 2018,18yr 07-[address] up,rc,PF, 10:53: Hos [...] 59 (PF) 180 l Quad mcg (45 [id number], mcg x PF,) 180 4)/0.5 mL mcg [...] rine HCl 10 0-14 10-14 tablet by ybold MG oral 11:05: 00:00 mouth at Tablet 06 :00 bedtime as needed Valsartan-h 2020-07 Yes 1{tbl} Take 1 Ke lsey ydroCHLOROt 0-14 tablet by Maisha bold hiazide [...] 32 on daily Suspension Cyclobenzap 2020-07 Yes [id number] 10mg Take 1 Rosi rine HCl 10 [...] MG 00:00: Hospita tablet 00 l medroxyPROG 2021-1 Yes Method i ESTERone 0-04 st (PROVERA) 00:00: Hospita 10 MG 00 l tablet ubrogepant 2020-0 Yes 100 mg = 1 M emoria 100 MG Oral 9-10 tab, PO, l Tablet 21:15: PRN, PRN Luca [Ubrelvy] 00 Other -See Comment, X 30 day, # 10 tab, 1 Refill(s), Pharmacy: [id number], For Migraine. May repeat dose after 2 hours. Max dose 200 mg/ 24 hours, 152.4, cm, 03/16/21 8:31:00 CDT, Height, 112.727, kg, 03/16/21 8... ubrogepant 2020-0 Yes 100 mg = 1 M emoria 100 MG Oral 9-10 tab, PO, l Tablet 21:15: PRN, PRN [place] [Ubrelvy] 00 Other -See Comment, X 30 day, # 10 tab, 1 Refill(s), Pharmacy: [facility], For Migraine. May repeat dose after 2 hours. Max dose 200 mg/ 24 hours, 152.4, cm, 03/16/21 8:31:00 CDT, Height, 112.727, kg, 03/16/21 8... ubrogepant 2020-0 Yes 100 mg = 1 M ethodi (Ubrelvy) 9-10 tab, PO, st 100 mg 00:00: PRN, PRN Hospita tablet 00 Other -See l Comment, X 30 day, # 10 tab, 1 Refill(s), Pharmacy: [facility], For Migraine. May repeat dose after 2 hours. Max dose 200 mg/ 24 hours, 152.4, cm, 03/16/21 8:31:00 CDT, Height, 112.727, kg, 03/16/21 8... ubrogepant 1-0 Yes 100 mg = 1 M ethodi (Ubrelvy) 9-10 tab, PO, st 100 mg 00:00: PRN, PRN Hospita tablet 00 Other -See l Comment, X 30 day, # 10 tab, 1 Refill(s), Pharmacy: [facility], For Migraine. May repeat dose after 2 hours. Max dose 200 mg/ 24 hours, 152.4, cm, 03/16/21 8:31:00 CDT, Height, 112.727, kg, 03/16/21 8... ubrogepant 1-0 Yes 100 mg = 1 M ethodi (Ubrelvy) 9-10 tab, PO, st 100 mg 00:00: PRN, PRN Hospita tablet 00 Other -See l Comment, X 30 day, # 10 tab, 1 Refill(s), Pharmacy: [facility], For Migraine. May repeat dose after 2 hours. Max dose 200 mg/ 24 hours, 152.4, cm, 03/16/21 8:31:00 CDT, Height, 112.727, kg, 03/16/21 8... ubrogepant 1-0 Yes 100 mg = 1 M ethodi (Ubrelvy) 9-10 tab, PO, st 100 mg 00:00: PRN, PRN Hospita tablet 00 Other -See l Comment, X 30 day, # 10 tab, 1 Refill(s), Pharmacy: [facility], For Migraine. May repeat dose after 2 hours. Max dose 200 mg/ 24 hours, 152.4, cm, 03/16/21 8:31:00 CDT, Height, 112.727, kg, 03/16/21 8... ubrogepant 1-0 Yes 100 mg = 1 M ethodi (Ubrelvy) 9-10 tab, PO, st 100 mg 00:00: PRN, PRN Hospita tablet 00 Other -See l Comment, X 30 day, # 10 tab, 1 Refill(s), Pharmacy: [facility], For Migraine. May repeat dose after 2 hours. Max dose 200 mg/ 24 hours, 152.4, cm, 03/16/21 8:31:00 CDT, Height, 112.727, kg, 03/16/21 8... ubrogepant 1-0 No 100 mg = 1 M emoria 100 MG Oral 9-03 tab, PO, l Tablet 16:30: PRN, PRN Spangler [Ubrelvy] 00 Other -See Comment, X 30 day, # 10 tab, 1 Refill(s), Pharmacy: [facility], For Migraine. May repeat dose after 2 hours. Max dose 200 mg/ 24 hours, 152.4, cm, 03/16/21 8:31:00 CDT, Height, 112.727, kg, 03/16/21 8:... ubrogepant No 100 mg = 1 M emoria 100 MG Oral 9-03 tab, PO, l Tablet 16:30: PRN, PRN Spangler [Ubrelvy] 00 Other -See Comment, X 30 day, # 10 tab, 1 Refill(s), Pharmacy: [facility], For Migraine. May repeat dose after 2 hours. Max dose 200 mg/ 24 hours, 152.4, cm, 03/16/21 8:31:00 CDT, Height, 112.727, kg, 03/16/21 8:... amitriptyli Yes = 1 tab, Me moria ne 75 mg 9-01 PO, l oral tablet 23:57: Bedtime, # Luca 00 30 ea, 5 Refill(s), Pharmacy: [facility], 152.4, cm, 03/16/21 8:31:00 CDT, Height, 112.727, kg, 03/16/21 8:31:00 CDT, Weight amitriptyli Yes = 1 tab, Me moria ne 75 mg 9-01 PO, l oral tablet 23:57: Bedtime, # Luca 00 30 ea, 5 Refill(s), Pharmacy: [facility], 152.4, cm, 03/16/21 8:31:00 CDT, Height, 112.727, kg, 03/16/21 8:31:00 CDT, Weight Amitriptyli Yes amitriptyl Rosi ne HCl 75 9-01 ine 75 mg Seybo ld MG oral 00:00: tablet Tablet 00 ubrogepant No 100 mg = 1 M emoria 100 MG Oral 8-23 tab, PO, l Tablet 21:26: PRN, PRN Spangler [Ubrelvy] 00 Other -See Comment, X 30 day, # 10 tab, 1 Refill(s), Pharmacy: [facility], For Migraine. May repeat dose after 2 hours. Max dose 200 mg/ 24 hours, 152.4, cm, 02/01/21 13:49:00 CDT, Height, 116.818, kg, 02/01/21 1... ubrogepant 1-0 No 100 mg = 1 M emoria 100 MG Oral 8-23 tab, PO, l Tablet 21:26: PRN, PRN Luca [Ubrelvy] 00 Other -See Comment, X 30 day, # 10 tab, 1 Refill(s), Pharmacy: [facility], For Migraine. May repeat dose after 2 hours. Max dose 200 mg/ 24 hours, 152.4, cm, 02/01/21 13:49:00 CDT, Height, 116.818, kg, 02/01/21 1... Ibuprofen 2021-0 Yes Rosi 600 MG oral 8-04 Seybold Tablet 00:00: 00 ibuprofen 2021-0 Yes Methodi (ADVIL) 600 8-04 [...] MG tablet 00:00: Hospita 00 l methylPREDN 2021-0 Yes [id number] 84mg Take 21 Univers ISolone 7-30 tablets by ity of (MEDROL, 00:00: mouth [place] GENARO,) 4 mg 00 SEE-INSTRU Med ical tablets CTIONS. Branch follow package directions methylPREDN 2021-0 Yes [id number] 84mg Take 21 Univers ISolone 7-30 tablets by ity of (MEDROL, 00:00: mouth [place] GENARO,) 4 mg 00 SEE-INSTRU Med ical tablets CTIONS. Branch follow package directions methylPREDN 2021-0 Yes [id number] 84mg Take 21 Univers ISolone 7-30 tablets by ity of (MEDROL, 00:00: mouth [place] GENARO,) 4 mg 00 SEE-INSTRU Med ical tablets CTIONS. Branch follow package directions medroxyPROG 2020-0 Yes every 24 Ke lsey ESTERone 5-13 hours Seybold Acetate 10 00:00: MG oral 00 Tablet medroxyPROG 2020-0 Yes [id number] 20mg Take 2 Univers ESTERone 5-13 tablets by ity o f (PROVERA) 00:00: mouth [place] 10 mg 00 daily. Medical tablet Branch medroxyPROG 202-0 Yes [id number] 20mg Take 2 Univers ESTERone 5-13 tablets by ity o f (PROVERA) 00:00: mouth [place] 10 mg 00 daily. Medical tablet Branch medroxyPROG 2020-0 Yes [id number] 20mg Take 2 Univers ESTERone 5-13 tablets by ity o f (PROVERA) 00:00: mouth [place] 10 mg 00 daily. 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, Height, 113.636, kg, 09/24/20 13:34: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, Weight Rizatriptan 0 Yes rizatripta Rosi Benzoate 5 3-12 n 5 mg Seybold MG oral 00:00: tablet Tablet 00 TAKE 1 TABLET BY MOUTH ONCE DAILY NEEDED FOR HEADACHE MIGRAINE rizatriptan 0 Yes 5 mg = 1 Me moria 5 MG Oral 9-15 tab, PO, l Tablet 22:44: ONCE, PRN Burak n [Maxalt] 00 for migraine headache, # 9 tab, 1 Refill(s), Pharmacy: [facility], 152.4, cm, 01/15/20 15:04:00 CDT, Height, 115.455, kg, 01/15/20 15:04:00 CDT, Weight rizatriptan 2020-0 Yes 5 mg = 1 Me moria 5 MG Oral 9-15 tab, PO, l Tablet 22:44: ONCE, PRN Burak n [Maxalt] 00 for migraine headache, # 9 tab, 1 Refill(s), Pharmacy: [facility], 152.4, cm, 01/15/20 15:04:00 CDT, [...] 2020-0 No 0.5 mg = Memor ia 02-25 [...] emoria 8-13 0.5 mL, l 15:20: Injection, Spangler 00 IV Push, Once PRN for shivers, first dose 02/26/20 10:20:00 CDT Albuterol 2020-0 No 2.5 mg = 3 Me moria 0.83 MG/ML 8-13 mL, Soln, l Inhalant 15:20: NEB, Once Herm mckenna Solution 00 PRN for wheezing, first dose 02/26/20 10:20:00 CDT Ondansetron 2020-0 No 4 mg = 2 Me moria 8-13 mL, l 15:20: Injection, Spangler 00 IV Push, q15min PRN for nausea, order duration: 2 doses, first dose 02/26/20 10:20:00 CDT, stop date Limited # of times Promethazin 2020-0 No 12.5 mg = M emoria e 8-13 0.5 mL, l 15:20: Injection, Luca 00 IM, Once PRN for vomiting, first dose 02/26/20 10:20:00 CDT fentaNYL 2020-0 No 25 mcg = Memor ia 8-13 0.5 mL, l 14:50: Injection, 00 IV, Once, first dose 02/26/20 9:50:00 [...] ia 8-13 0.5 mL, l 14:16: Injection, Spangler 00 IV, Once, first dose 02/26/20 9:16:00 [...] gm, Memoria 8-13 Soln-IV, l 12:53: IV Spangler 00 Piggyback, Once, first dose 02/26/20 7:53:00 CDT, stop date 02/26/20 7:53:00 CDT ondansetron 2020-0 No 4 mg = 2 Me moria 8-13 mL, l 12:53: Injection, Luca 00 IV, Once, first dose 02/26/20 7:53:00 CDT, stop date 02/26/20 7:53:00 CDT dexamethaso 2020-0 No 8 mg = 2 Me moria ne 8-13 mL, l 12:53: Injection, Spangler 00 IV, Once, first dose 02/26/20 7:53:00 CDT, stop date 02/26/20 7:53:00 CDT ketorolac 2020-0 No 30 mg = 1 Mem oria 8-13 mL, l 12:53: Injection, Spangler 00 IV, Once, first dose 02/26/20 7:53:00 [...] moria ne 8-13 mL, l 12:53: Injection, Spangler 00 IV, Once, first dose 02/26/20 7:53:00 CDT, stop date 02/26/20 7:53:00 CDT ketorolac 2020-0 No 30 mg = 1 Mem oria 8-13 mL, l 12:53: Injection, Spangler 00 IV, Once, first dose 02/26/20 7:53:00 [...] ia 8-13 20 mL, l 12:41: Emulsion, Spangler 00 IV, Once, first dose 02/26/20 7:41:00 CDT, stop date 02/26/20 7:41:00 CDT fentaNYL 2020-0 No 50 mcg = 1 Mem oria 8-13 mL, l 12:35: Injection, Luca 00 IV, Once, first dose 02/26/20 7:35:00 CDT, stop date 02/26/20 7:35:00 CDT fentaNYL 2020-0 No 50 mcg = 1 Mem oria 8-13 mL, l 12:35: Injection, Spangler 00 IV, Once, first dose 02/26/20 7:35:00 CDT, stop date 02/26/20 7:35:00 CDT midazolam 2020-0 No 1 mg = 1 Lev trupti 8-13 mL, l 12:34: Injection, Spangler 00 IV, Once, first dose 02/26/20 7:34:00 [...] Injection, l IV Start 11:28: Subcutaneo paulino [[facility]] 00 us, Once PRN for other (see comment), first dose 02/26/20 6:28:00 CDT LR 1,000 mL 2020-0 No 1,000 mL, M emoria 8- IV, 30 l 11:28: mL/hr, Spangler 00 start date 02/26/20 6:28:00 CDT, 2.14, m2 Lidocaine 2020-0 No 0.2 mL, Memor ia 2% 0.2 mL 02-25 Injection, l IV Start 11:28: Subcutaneo paulino [[facility]] 00 us, Once PRN for other (see comment), first dose 02/26/20 6:28:00 CDT Allergy 2020-0 Yes mg, Oral, Memor ia Relief 805 Daily, 0 l 17:06: Refill(s) Allergy 2020-0 Yes mg, Oral, Memor ia Relief 8 Daily, 0 l 17:06: Refill(s) Tylenol PM 2020-0 Yes Oral, qHS, M emoria 805 0 l 17:05: Refill(s), sleep /pain Tylenol PM 2020-0 Yes Oral, qHS, M emoria 805 0 l 17:05: Refill(s), sleep /pain amitriptyli [...] = 1 Me moria 5 mg oral 8- tabs, l tablet 17:04: Oral, Luca 00 Daily, 0 Refill(s) pantoprazol 2020-0 Yes 40 mg = 1 M emoria e 40 mg 8- tabs, l oral 17:04: Oral, Luca delayed 00 Daily, 0 release Refill(s), tablet GERD meloxicam 2020-0 Yes 7.5 mg = 1 Me moria 7.5 MG Oral 8-05 tabs, l Tablet 17:04: Oral, Spangler 00 Daily, 0 Refill(s), joint pain amitriptyli 2020-0 Yes 75 mg = 1 M emoria ne 75 mg 8-05 tabs, l oral tablet 17:04: Oral, qHS, Spangler 00 0 Refill(s), sleep levothyroxi 2020-0 Yes [...] mg 8-05 tabs, l oral 17:04: Oral, Spangler delayed 00 Daily, 0 release Refill(s), tablet [...] TAKE 1 TABLET BY MOUTH ONCE DAILY rizatriptan 2020-0 Yes 5 mg = 1 Me moria 5 MG Oral 7-02 tab, PO, l Tablet 20:24: ONCE, PRN Burak n [Maxalt] 00 for migraine headache, # 9 tab, 1 Refill(s), Pharmacy: [facility], 152.4, cm, 01/15/20 15:04:00 CDT, Height, 115.455, kg, 01/15/20 15:04:00 CDT, Weight amitriptyli 2020-0 Yes = 1 tab, Me moria ne 75 mg 7-02 PO, l oral tablet 20:24: Bedtime, # Spangler 00 30 ea, 5 Refill(s), Pharmacy: [facility], 152.4, cm, 01/15/20 15:04:00 CDT, Height, 115.455, kg, 01/15/20 15:04:00 CDT, Weight rizatriptan 2020-0 Yes 5 mg = 1 Me moria 5 MG Oral 7-02 tab, PO, l Tablet 20:24: ONCE, PRN Burak n [Maxalt] 00 for migraine headache, # 9 tab, 1 Refill(s), Pharmacy: [facility], 152.4, cm, 01/15/20 15:04:00 CDT, Height, 115.455, kg, 01/15/20 15:04:00 CDT, Weight amitriptyli 2020-0 Yes = 1 tab, Me moria ne 75 mg 7-02 PO, l oral tablet 20:24: Bedtime, # Luca 00 30 ea, 5 Refill(s), Pharmacy: [facility], 152.4, cm, 01/15/20 15:04:00 CDT, Height, 115.455, kg, 01/15/20 15:04:00 CDT, Weight rizatriptan 2020-0 Yes 5 mg = 1 Me moria 5 MG Oral 5-19 tab, PO, l Tablet 21:06: ONCE, PRN Burak n [Maxalt] 00 for migraine headache, # 9 tab, 1 Refill(s), Pharmacy: [facility] amitriptyli 2019-0 Yes = 1 tab, Me moria ne 75 mg 5-19 PO, l oral tablet 21:06: Bedtime, # Spangler 00 30 ea, 1 Refill(s), Pharmacy: [facility] rizatriptan 2019-0 Yes 5 mg = 1 Me moria 5 MG Oral 5-19 tab, PO, l Tablet 21:06: ONCE, PRN Burak n [Maxalt] 00 for migraine headache, # 9 tab, 1 Refill(s), Pharmacy: [facility] amitriptyli 2019-0 Yes = 1 tab, Me moria ne 75 mg 5-19 PO, l oral tablet 21:06: Bedtime, # Spangler 00 30 ea, 1 Refill(s), Pharmacy: [facility] loratadine Yes loratadine M ethodi (CLARITIN) 9-[address] 10 mg 00:00: tablet Hospita tablet 00 TAKE 1 l TABLET BY MOUTH ONCE DAILY loratadine Yes loratadine M ethodi (CLARITIN) 9-[address] 10 mg 00:00: tablet Hospita tablet 00 TAKE 1 l TABLET BY MOUTH ONCE DAILY loratadine Yes loratadine M ethodi (CLARITIN) 9-[address] 10 mg 00:00: tablet Hospita tablet 00 TAKE 1 l TABLET BY MOUTH ONCE DAILY loratadine Yes loratadine M ethodi (CLARITIN) 9-[address] 10 mg 00:00: tablet Hospita tablet 00 TAKE 1 l TABLET BY MOUTH ONCE DAILY sod Yes [id number] 1{bottl Use 1 Unive rs chlor-bicar 03-23 e} Bottle in ity of b-squeez 00:00: each [place] bottle 00 nostril 2 Medical (NEILMED (two) Branch SINUS RINSE times COMPLETE) daily. Use pkdv in hot shower 1 hour before bedtime loratadine Yes [id number] 10mg Take 1 U nivers 10 mg 9-08 tablet by ity of tablet 00:00: mouth [place] 00 daily. Medical Branch sod Yes [id number] 1{bottl Use 1 Unive rs chlor-bicar 9-08 e} Bottle in ity of b-squeez 00:00: each [place] bottle 00 nostril 2 Medical (NEILMED (two) Branch SINUS RINSE times COMPLETE) daily. Use pkdv in hot shower 1 hour before bedtime loratadine Yes [id number] 10mg Take 1 U nivers 10 mg 9-08 tablet by ity of tablet 00:00: mouth [place] 00 daily. Medical Branch sod Yes [id number] 1{bottl Use 1 Unive rs chlor-bicar 9-08 e} Bottle in ity of b-squeez 00:00: each [place] bottle 00 nostril 2 Medical (NEILMED (two) Branch SINUS RINSE times COMPLETE) daily. Use pkdv in hot shower 1 hour before bedtime loratadine Yes [id number] 10mg Take 1 U nivers 10 mg [...] Luca 00 30 tab, 1 Refill(s), Pharmacy: [facility] amitriptyli Yes 75 mg = 1 M emoria ne 75 mg 8-22 tab, PO, l oral tablet 18:27: Bedtime, # Spangler 00 30 tab, 1 Refill(s), Pharmacy: [facility] rizatriptan Yes 5 mg = 1 Me moria 5 MG Oral 8-02 tab, PO, l Tablet 20:24: ONCE, PRN Burak n [Maxalt] 09 for migraine headache, # 9 tab, 1 Refill(s), Pharmacy: [facility] rizatriptan Yes 5 mg = 1 Me moria 5 MG Oral 8-02 tab, PO, l Tablet 20:24: ONCE, PRN Burak n [Maxalt] 09 for migraine headache, # 9 tab, 1 Refill(s), Pharmacy: [facility] thiamine Yes 100 mg = 1 Mem oria 100 mg oral 8-02 tab, PO, l tablet 20:23: Daily, X Luca 17 30 day, # 30 tab, 3 Refill(s), Pharmacy: [facility] thiamine Yes 100 mg = 1 Mem oria 100 mg oral 8-02 tab, PO, l tablet 20:23: Daily, X Luca 17 30 day, # 30 tab, 3 Refill(s), Pharmacy: [facility] cyanocobala Yes 1,000 Memor ia min 1000 8-02 microgram l mcg 20:23: = 1 tab, Luca sublingual 13 SL, Daily, tablet # 30 tab, 2 Refill(s), Pharmacy: [facility] cyanocobala Yes 1,000 Memor ia min 1000 8-02 microgram l mcg 20:23: = 1 tab, Spangler sublingual 13 SL, Daily, tablet # 30 tab, 2 Refill(s), Pharmacy: [facility] amitriptyli Yes 50 mg = 1 M emoria ne 50 mg 8-02 tab, PO, l oral tablet 20:23: Bedtime, # Luca 09 30 tab, 1 Refill(s), Pharmacy: [facility] amitriptyli Yes 50 mg = 1 M emoria ne 50 mg 8-02 tab, PO, l oral tablet 20:23: Bedtime, # Spangler 09 30 tab, 1 Refill(s), Pharmacy: [facility] rizatriptan Yes rizatripta Methodi (MAXALT) 5 [...] day, # 6 tab, 1 Refill(s), Pharmacy: [facility] 8 amitriptyli No 50 mg = 1 M emoria ne 50 mg 7-13 tab, PO, l oral tablet 01:53: Bedtime, # Luca 00 30 tab, 1 Refill(s), Pharmacy: [facility] 808 rizatriptan 2018- No 5 mg = 1 Me moria 5 MG Oral 7-13 tab, PO, l Tablet 01:53: Daily, PRN Antonia nn [Maxalt] 00 for migraine headache, X 6 day, # 6 tab, 1 Refill(s), Pharmacy: [facility] 808 amitriptyli No 50 mg = 1 M emoria ne 50 mg 7-13 tab, PO, l oral tablet 01:53: Bedtime, # Luca 00 30 tab, 1 Refill(s), Pharmacy: [facility] 808 frovatripta 2018- No 2.5 mg = 1 Memoria n 2.5 mg 6-27 tab, PO, l oral tablet 15:37: Daily, PRN Luca 00 for migraine headache, May repeat another dose at least 2 hours after the first dose, X 3 day, # 9 tab, 2 Refill(s), Pharmacy: [facility] 808 frovatripta 2018-0 No 2.5 mg = 1 Memoria n 2.5 mg 6-27 tab, PO, l oral tablet 15:37: Daily, PRN Luca 00 for migraine headache, May repeat another dose at least 2 hours after the first dose, X 3 day, # 9 tab, 2 Refill(s), Pharmacy: [facility] eletriptan No See Memoria 40 MG Oral 6-25 Instructio l Tablet 23:35: ns, PO, Spangler [Relpax] 00 Take 1-2 tabs orally at onset of migraine, may repeat dose once in 2 hours, X 3 day, # 6 tab, 1 Refill(s), Pharmacy: [facility] eletriptan No See Memoria 40 MG Oral 6-25 Instructio l Tablet 23:35: ns, PO, Luca [Relpax] 00 Take 1-2 tabs orally at onset of migraine, may repeat dose once in 2 hours, X 3 day, # 6 tab, 1 Refill(s), Pharmacy: [facility] amitriptyli Yes 25 mg = 1 M emoria ne 25 mg 6-11 tab, PO, l oral tablet 21:16: Bedtime, # Spangler 00 30 tab, 3 Refill(s), Pharmacy: [place] [address] amitriptyli Yes 25 mg = 1 M emoria ne 25 mg 6-11 tab, PO, l oral tablet 21:16: Bedtime, # Luca 00 30 tab, 3 Refill(s), Pharmacy: [facility] cyanocobala Yes 1,000 Memor ia min 1000 6-07 microgram l mcg 19:39: = 1 tab, Spangler sublingual 00 SL, Daily, tablet # 30 tab, 2 Refill(s), Pharmacy: [facility] cyanocobala Yes 1,000 Memor ia min 1000 6-07 microgram l mcg 19:39: = 1 tab, Luca sublingual 00 SL, Daily, tablet # 30 tab, 2 Refill(s), Pharmacy: [facility] thiamine Yes 100 mg = 1 Mem oria 100 mg oral 5-17 tab, PO, l tablet 18:13: Daily, X Spangler 00 30 day, # 30 tab, 3 Refill(s), Pharmacy: [facility] 808 thiamine 2019-0 Yes 100 mg = 1 Mem oria 100 mg oral 5-17 tab, PO, l tablet 18:13: Daily, X Luca 00 30 day, # 30 tab, 3 Refill(s), Pharmacy: [facility] 808 amitriptyli 2019-0 Yes 10 mg = 1 M emoria ne 10 mg 5-10 tab, PO, l oral tablet 20:44: Bedtime, # Spangler 00 30 tab, 3 Refill(s), Pharmacy: [facility] 808 amitriptyli 2019-0 Yes 10 mg = 1 M emoria ne 10 mg 5-10 tab, PO, l oral tablet 20:44: Bedtime, # Spangler 00 30 tab, 3 Refill(s), Pharmacy: [facility] 808 gabapentin 2019-0 Yes 300 mg = 1 M emoria 300 MG Oral 5-10 cap, PO, l Capsule 20:28: BID, # 90 Antonia nn 00 cap, 1 Refill(s) cyclobenzap 2018-0 No 10 mg = 1 M emoria [...] spasms, # 30 tab, 0 Refill(s) escitalopra 2019- Yes 20 mg = 1 M emoria m 20 mg 5-10 tab, PO, l oral tablet 20:28: Daily, # He rmann 00 30 tab, 0 Refill(s) levothyroxi 2018- Yes 50 Memori a ne 50 mcg 5-10 microgram l (0.05 mg) 20:28: = 1 tab, Herm mckenna oral tablet 00 PO, Daily, # 30 tab, 0 Refill(s) levothyroxi 2019 Yes 50 Method i ne 5-10 microgram [...] tablet # 30 tab, 0 Refill(s) levothyroxi 2018-0 Yes 50ug Take 1 Univ ers ne 50 mcg 4-30 tablet by ity o f tablet 00:00: mouth [place] 00 every Medical morning. [place] levothyroxi 2018-0 Yes 50ug Take 1 Univ ers ne 50 mcg 4-30 tablet by ity o f tablet 00:00: mouth [place] 00 every Medical morning. [place] levothyroxi 2018-0 Yes 50ug Take 1 Univ ers ne 50 mcg 4-30 tablet by ity o f tablet 00:00: mouth [place] 00 every Medical morning. [place] escitalopra 2017-0 Yes 10mg Take 1 Univ ers m oxalate 1-24 tablet by ity o f 10 mg 00:00: mouth [place] tablet 00 daily. Medical Branch escitalopra Yes 10mg Take 1 Univ ers m oxalate 1-24 tablet by ity o f 10 mg 00:00: mouth [place] tablet 00 daily. [facility] Branch escitalopra Yes 10mg Take 1 Univ [...] day Ho spita 00 l bisoprolol Yes [id number] 10mg Take 1 U nivers 10 mg 1-11 tablet by ity of tablet 00:00: mouth [place] 00 daily. Medical Branch cyclobenzap Yes [id number] 10mg Take 1 Univers rine 10 mg 1-11 tablet by ity of tablet 00:00: mouth at [place] 00 bedtime. Medical Branch bisoprolol Yes [id number] 10mg Take 1 U nivers 10 mg 1-11 tablet by ity of tablet 00:00: mouth [place] 00 daily. Medical Branch cyclobenzap Yes [id number] 10mg Take 1 Univers rine 10 mg 1-11 tablet by ity of tablet 00:00: mouth at [place] 00 bedtime. Medical Branch bisoprolol Yes [id number] 10mg Take 1 U nivers 10 mg 1-11 tablet by ity of tablet 00:00: mouth [place] 00 daily. [facility] Branch cyclobenzap Yes [id number] 10mg Take 1 Univers rine 10 mg 1-11 tablet by ity of tablet 00:00: mouth at [place] 00 bedtime. [facility] Branch bisoprolol Yes 1 tablet Met hodi [...] ity of mcg/actuati 00:00: [place] on inhaler Medical Branch albuterol 2015-07 Yes 3 ml as Metho di (ACCUNEB) 1-[address] 2.5 mg /3 00:00: Hospita mL (0.083 00 l %) nebulizer solution montelukast 2015-07 Yes 10mg Take 10 mg Univers (SINGULAIR) 1-03 by mouth ity of 10 mg 00:00: every [place] tablet 00 evening. Medical Branch montelukast 2015- Yes 10mg Take 10 mg Univers (SINGULAIR) 03 by mouth ity of 10 mg 00:00: every [place] tablet 00 evening. Medical Branch montelukast 2015-07 Yes 10mg Take 10 mg Univers (SINGULAIR) 03 by mouth ity of 10 mg 00:00: every [place] tablet 00 evening. Medical Branch fluticasone Yes fluticason Methodi propionate 03-[address] (FLONASE) 00:00: propionate Ho spita 50 00 50 l mcg/actuati mcg/actuat on nasal ion nasal spray spray,susp ension fluticasone Yes fluticason Methodi propionate 03-[address] (FLONASE) 00:00: propionate Ho spita 50 00 50 l mcg/actuati mcg/actuat on nasal ion nasal spray spray,susp ension fluticasone Yes fluticason Methodi propionate 03-[address] (FLONASE) 00:00: propionate Ho spita 50 00 50 l mcg/actuati mcg/actuat on nasal ion nasal spray spray,susp ension fluticasone Yes fluticason Methodi propionate 03-[address] (FLONASE) 00:00: propionate Ho spita 50 00 50 l mcg/actuati mcg/actuat on nasal ion nasal spray spray,susp ension fluticasone Yes Univer s 50 02 ity of mcg/actuati 00:00: [place] on nasal 00 Medical spray Branch fluticasone Yes Univer s 50 902 ity of mcg/actuati 00:00: [place] on nasal 00 Medical spray Branch fluticasone Yes Univer s 50 902 ity of mcg/actuati 00:00: [place] on nasal [...] Filled Immunization Date Status Comments [facility] e Immunization Name Name Covid-19 Vaccine 2021-03-31 Completed Rosi esposito (Moderna), 00:00:00 Mrna-lnp, Shade Protein, Pf, 100 Mcg/0.5ml,IM Covid-19 Vaccine 2021-03-02 Completed Rosi esposito (Moderna), 00:00:00 Mrna-lnp, [place]ade Protein, Pf, 100 Mcg/0.5ml,IM Influenza Virus 2016-07-24 Completed Rosi solano Vaccine, No 00:00:00 Preserv, age 6 months and up Tdap- (Boostrix, 2016-07-24 Completed Rosi esposito Adacel) 00:00:00 TDAP 2016-07-24 Completed [facility] 00:00:00 [facility] Influenza Virus 2016-07-24 Completed Universit y of Vaccine Quad IM 3+ 00:00:00 [facility] TDAP 2016-07-24 Completed [facility] 00:00:00 [facility] Influenza Virus 2016-07-24 Completed Universit y of Vaccine Quad IM 3+ 00:00:00 [facility] TDAP 2016-07-24 Completed [facility] 00:00:00 [facility] Influenza Virus 2016-07-24 Completed Universit y of Vaccine Quad IM 3+ 00:00:00 [facility] Tdap- (Boostrix, 2010-01-18 Completed Rosi esposito Adacel) 00:00:00 Vital Signs Vital Name Observation Time Observation Value Comments Source Systolic blood 2021-10-10 20:19:00 141 mm[Hg] Univer sity of pressure [facility] Diastolic blood 2021-10-10 20:19:00 98 mm[facility]Hg[facility] Heart rate 2021-10-10 20:19:00 109 /min [facility] Body temperature 2021-10-10 20:19:00 36.94 Sole [facility] Respiratory rate 2021-10-10 20:19:00 18 /min [facility] Body height 2021-10-10 20:19:00 160 cm [facility] [place] Body weight 2021-10-10 20:19:00 115.667 kg [facility] BMI 2021-10-10 20:19:00 45.17 kg/m2 Universi ty [facility] [place] Oxygen saturation in 2021-10-10 20:19:00 97 /min [facility] blood by [facility] Pulse oximetry Branch Systolic blood 2021-04-28 14:43:00 [...] 13:34:00 127 mm[Hg] Univer sity of pressure [facility] Diastolic blood 2021-02-11 13:34:00 87 mm[Hg] Unive rsity of pressure [facility] Heart rate 2021-02-11 13:34:00 100 /min Universi ty [facility] Medical [place] Body height 2021-02-11 13:34:00 160 cm [facility] [place] Body weight 2021-02-11 13:34:00 115.667 kg Universi ty [facility] BMI 2021-02-11 13:34:00 45.17 kg/m2 Universi ty [facility] Branch Systolic (mm Hg) 2021-03-16 13:19:00 Lev Segovia Diastolic (mm Hg) 2021-03-16 13:19:00 Toan Harringtonann Heart Rate 2021-03-16 13:19:00 Naresh Luca Respitory Rate 2021-03-16 13:19:00 Memori al Spangler Height 2021-03-16 13:19:00 152.4 cm [facility] Weight 2021-03-16 13:19:00 [facility] [place] BMI Calculated 2021-03-16 13:19:00 Memori al Spangler Systolic (mm Hg) 2021-02-01 18:35:00 Lev rial Luca Diastolic (mm Hg) 2021-02-01 18:35:00 Mem orial Luca Heart Rate 2021-02-01 18:35:00 [facility] [place] Respitory Rate 2021-02-01 18:35:00 Memori al Spangler Height 2021-02-01 18:35:00 152.4 cm [facility] [place] Weight 2021-02-01 18:35:00 [facility] [place] BMI Calculated 2021-02-01 18:35:00 Memori al Spangler Systolic (mm Hg) 2020-09-24 19:34:00 Lev rial Luca Diastolic (mm Hg) 2020-09-24 19:34:00 Mem orial Spangler Heart Rate 2020-09-24 19:34:00 [facility] Spang[facility] Respitory Rate 2020-09-24 19:34:00 Memori al [place]a Height 2020-09-24 19:34:00 160.02 cm [facility] Sp[facility] Weight 2020-09-24 19:34:00 [facility] [place] BMI Calculated 2020-09-24 19:34:00 Memori al Spangler Respitory Rate 2020-02-26 16:32:00 Memori al [place] Systolic (mm Hg) 2020-02-26 16:32:00 Lev rial Luca Diastolic (mm Hg) 2020-02-26 16:32:00 Mem orial Luca Heart Rate 2020-02-26 16:00:00 [facility] [place] Respitory Rate 2020-02-26 16:00:00 Memori al [place]a Systolic (mm Hg) 2020-02-26 16:00:00 Lev rial Luca Diastolic (mm Hg) 2020-02-26 16:00:00 Mem orial Spangler Heart Rate 2020-02-26 15:50:00 [facility] [place] Respitory Rate 2020-02-26 15:50:00 Memori al Spangler Systolic (mm Hg) 2020-02-26 15:50:00 Lev rial Luca Diastolic (mm Hg) 2020-02-26 15:50:00 Mem orial Spangler Heart Rate 2020-02-26 15:40:00 [facility] Sp[facility] Temperature Oral (F) 2020-02-26 15:20:00 37.0 Sole [facility] Sp[facility] Temperature Oral (F) 2020-02-26 11:25:00 37.2 Sole [facility] [place] Height 2020-02-26 11:25:00 158 cm [facility] Sp[facility] Height 2020-02-18 16:59:00 158 cm [facility] Sp[facility] Systolic blood 2020-02-02 14:39:00 134 mm[Hg] [facility] [...] Systolic (mm Hg) 2020-01-15 20:04:00 Lev rial Spangler Diastolic (mm Hg) 2020-01-15 20:04:00 Mem orial Spangler Heart Rate 2020-01-15 20:04:00 [facility] [place] Respitory Rate 2020-01-15 20:04:00 Memori al Spangler Height 2020-01-15 20:04:00 152.4 cm [facility] Weight 2020-01-15 20:04:00 [facility] [place] BMI Calculated 2020-01-15 20:04:00 Memori al [place] Systolic (mm Hg) 2019-12-02 20:40:00 Lev rial Luca Diastolic (mm Hg) 2019-12-02 20:40:00 Mem orial Luca Heart Rate 2019-12-02 20:40:00 [facility] [place] Respitory Rate 2019-12-02 20:40:00 Memori al [place] Height 2019-12-02 20:40:00 152.4 cm [facility] Sp[facility] Weight 2019-12-02 20:40:00 [facility] Sp[facility] BMI Calculated 2019-12-02 20:40:00 Memori al Spangler Weight 2019-02-14 19:40:00 [facility] Spang[facility] BMI Calculated 2019-02-14 19:40:00 Memori al Spangler Height 2019-02-14 19:40:00 160.02 cm [facility] [place] Respitory Rate 2019-02-14 19:40:00 Memori al Spangler Heart Rate 2019-02-14 19:40:00 [facility] Spangler Systolic (mm Hg) 2019-02-14 19:40:00 Lev rial Luca Diastolic (mm Hg) 2019-02-14 19:40:00 Mem orial Spangler BMI Calculated 2018-12-24 20:38:00 Memori al Luca Weight 2018-12-24 20:38:00 [facility] Spangler Height 2018-12-24 20:38:00 157.48 cm [facility] [place] Systolic (mm Hg) 2018-12-24 20:38:00 Lev rial Spangler Diastolic (mm Hg) 2018-12-24 20:38:00 Mem orial Spangler Respitory Rate 2018-12-24 20:38:00 Memori al Spangler Heart Rate 2018-12-24 20:38:00 [facility] [place] Height 2018-12-20 19:20:00 152.4 cm [facility] [place] BMI Calculated 2018-12-20 19:20:00 Memori al Spangler Weight 2018-12-20 19:20:00 [facility] Spang[facility] Systolic (mm Hg) 2018-12-20 19:20:00 Lev rial Luca Diastolic (mm Hg) 2018-12-20 19:20:00 Mem orial Spangler Heart Rate 2018-12-20 19:20:00 [facility] Spang[facility] Respitory Rate 2018-12-20 19:20:00 Memori al Spangler Systolic (mm Hg) 2018-11-22 19:23:00 Lev rial Spangler Diastolic (mm Hg) 2018-11-22 19:23:00 Mem orial Luca Respitory Rate 2018-11-22 19:23:00 Memori al Spangler Height 2018-11-22 19:23:00 157.48 cm [facility] Spang[facility] Weight 2018-11-22 19:23:00 [facility] [place] BMI Calculated 2018-11-22 19:23:00 Memori al Luca Heart Rate 2018-11-22 19:23:00 [facility] Sp[facility] Procedures Procedure Date / Time Performing Clinician Source Performed CONSENT/REFUSAL FOR 2021-10-10 20:09:22 Doctor Unassigned, Unive [facility] DIAGNOSIS AND TREATMENT [place] [facility] MRI SPINE EXTERNAL STUDY 2021-04-29 16:16:04 Tony Gray [facility] MR Ankle wo contrast [id number] 2020-07-02 00:00:00 [facility] [[facility]MD] US Lower Extremity 2020-05-31 00:00:00 [facility] Venous Doppler Bilateral Post Op Promis 29 Survey 2020-03-12 00:00:00 [facility] APPLICATION SHORT LEG 2020-02-26 13:13:00 Memori al Luca SPLINT-CALF TO FOOT [id number] (Left)<sup>1</sup> ARTHROSCOPY ANKLE 2020-02-26 13:13:00 Naresh garcia 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 [id number] (Left)<sup>2</sup> OPEN REDUCTION INTERNAL 2020-02-26 13:13:00 Lev rial Luca FIXATION TALUS FRACTURE [id number] (Left)<sup>3</sup> [L] 2019 Novel Coronavirus 2020-02-05 00:00:00 [facility] (COVID-19), MARK [UTP] Ortho - Surgery 2020-02-02 00:00:00 [facility] Scheduling Cholecystectomy [facility] Breast reduction, [facility] nn bilateral Bunionectomy [facility] [place] [facility] Plantar fasciitis of left [facility] al Luca foot History of Breast [facility] reduction History of Carpal tunnel [facility] surgery Plan of Care Planned Activity Planned Date Details Comments Source Future Scheduled 2022-04-27 HEPATITIS B VACCINES Met [facility] Test 09:25:03 (1 of 3 - 3-dose series) [code = HEPATITIS B VACCINES (1 of 3 - 3-dose series)] Future Scheduled 2022-04-27 Hepatitis C [facility] Test 09:25:03 screening (procedure) [code = 050995715] Future Scheduled 2022-04-27 Screening for [facility] Test 09:25:03 malignant neoplasm of cervix (procedure) [code = 099672288] Future Scheduled 2022-04-27 BREAST CANCER [facility] Test 09:25:03 SCREENING [code = BREAST CANCER SCREENING] Future Scheduled 2022-04-27 [facility] 09:25:03 SCREENING [code = COLONOSCOPY SCREENING] Future Scheduled 2022-04-27 COVID-19 VACCINE (3 [facility] Test 09:25:03 - Booster for Moderna series) [code = COVID-19 VACCINE (3 - Booster for Moderna series)] Future Scheduled 2022-04-27 INFLUENZA VACCINE [facility] Test 09:25:03 [code = INFLUENZA VACCINE] Future Scheduled 2022-03-30 HEPATITIS B VACCINES Met [facility] Test 16:54:14 (1 of 3 - 3-dose series) [code = HEPATITIS B VACCINES (1 of 3 - 3-dose series)] Future Scheduled 2022-03-30 [facility] Test 16:54:14 screening (procedure) [code = 319479947] Future Scheduled 2022-03-30 [facility] for [facility] Test 16:54:14 malignant neoplasm of cervix (procedure) [code = 885038670] Future Scheduled 2022-03-30 BREAST [facility]CER [facility] Test 16:54:14 SCREENING [code = BREAST CANCER SCREENING] Future Scheduled 2022-03-30 [facility] 16:54:14 SCREENING [code = COLONOSCOPY SCREENING] Future Scheduled 2022-03-30 COVID-19 VACCINE (3 [facility] Test 16:54:14 - Booster for Moderna series) [code = COVID-19 VACCINE (3 - Booster for Moderna series)] Future Scheduled 2022-03-30 INFLUENZA VACCINE [facility] Test 16:54:14 [code = INFLUENZA VACCINE] Future Scheduled 2022-03-30 HEPATITIS B VACCINES [facility] Test 16:54:14 (1 of 3 - 3-dose series) [code = HEPATITIS B VACCINES (1 of 3 - 3-dose series)] Future Scheduled 2022-03-30 [facility] Test 16:54:14 screening (procedure) [code = 250533911] Future Scheduled 2022-03-30 [facility] for [facility] Test 16:54:14 malignant neoplasm of cervix (procedure) [code = 150868044] Future Scheduled 2022-03-30 BREAST CANCER [facility] Test 16:54:14 SCREENING [code = BREAST CANCER SCREENING] Future Scheduled 2022-03-30 [facility] 16:54:14 SCREENING [code = COLONOSCOPY SCREENING] Future Scheduled 2022-03-30 COVID-19 VACCINE ([address] [facility] 16:54:14 - Booster for Moderna series) [code = COVID-19 VACCINE (3 - Booster for Moderna series)] Future Scheduled 2022-03-30 INFLUENZA VACCINE Method [facility] Hospital Test 16:54:14 [code = INFLUENZA VACCINE] Future Scheduled 2022-03-09 HEPATITIS B VACCINES Met [facility] Test 10:28:27 (1 of 3 - 3-dose series) [code = HEPATITIS B VACCINES (1 of 3 - 3-dose series)] Future Scheduled 2022-03-09 [facility] Test 10:28:27 screening (procedure) [code = 932651325] Future Scheduled 2022-03-09 Screening for [facility] Test 10:28:27 malignant neoplasm of cervix (procedure) [code = 689779852] Future Scheduled 2022-03-09 BREAST CANCER [facility] Test 10:28:27 SCREENING [code = BREAST CANCER SCREENING] Future Scheduled 2022-03-09 [facility] 10:28:27 SCREENING [code = COLONOSCOPY SCREENING] Future Scheduled 2022-03-09 COVID-19 VACCINE ([address] [facility] 10:28:27 - Booster for Moderna series) [code = COVID-19 VACCINE (3 - Booster for Moderna series)] Future Scheduled 2022-03-09 INFLUENZA VACCINE Method [facility] Test 10:28:27 [code = INFLUENZA VACCINE] Future Scheduled 2021-08-16 [facility] C [facility] Test 19:56:30 screening (procedure) [code = 922720350] Future Scheduled 2021-08-16 Screening for [facility] Test 19:56:30 malignant neoplasm of cervix (procedure) [code = 431522964] Future Scheduled 2021-08-16 INFLUENZA VACCINE Method [facility] Hospital Test 19:56:30 [code = INFLUENZA VACCINE] Future Scheduled 2021-08-16 COVID-19 VACCINE ([address] [facility] 19:56:30 - Booster for Moderna series) [code = COVID-19 VACCINE (3 - Booster for Moderna series)] Diagnostic Test 2020-02-02 [UTP] Ortho - [facility] Pending 00:00:00 Surgery Scheduling [code = [UTP] Ortho - Surgery Scheduling] Encounters Start End Encounter Admission Attending Care Care Encounter Source Date/Time Date/Time Type Type Clinicians Facility Department ID 2022-02-21 Outpatient AN Garcia [facility] [id number] Common 13:42:03 Avnee [id number] [facility] 2021-08-10 Outpatient Jose STBROCK [facility] [id number] Common 13:49:13 Avnee [id number] [facility] 2021-08-10 Outpatient Garcia, STBROCK [facility] [id number] Common 13:47:59 Avnee [id number] [facility] 2021-08-10 Outpatient Garcia, STBROCK [facility] [id number] Common 13:43:00 Avnee [id number] [facility] 2021-08-10 Outpatient Garcia, STBROCK [facility] [id number] Common 13:37:06 Avnee [id number] [facility] 2021-08-10 Outpatient Garcia, STBROCK [facility] [id number] Common 13:23:50 Avnee [id number] [facility] 2021-08-10 Outpatient Garcia, STBROCK [facility] [id number] Common 13:22:32 Avnee [id number] [facility] 2021-08-10 Outpatient Jose STBROCK [facility] [id number] Common 13:09:55 Avnee [id number] [facility] 2021-05-15 Outpatient Scott PERES [facility] JOSE [id number] Univers 06:58:12 ESTER [facility] 2022-02-21 2022-02-21 Outpatient ROSI CAMPBELL [id number] Rosi 00:00:00 00:00:00 HAMZAH armendariz 2021-10-10 2021-10-10 Emergency X YARELY NVESTER ERT [id number] Univers 15:21:00 15:42:00 CAT [facility] 2021-10-10 2021-10-10 Emergency Yarely [facility] [id number] [facility] 15:21:00 15:42:00 Cat DUMONT [id number] [facility] [id number] [facility] [id number] [facility] 084 Branch 2021-10-10 2021-10-10 Outpatient ROSI ALARCON [id number] Rosi 00:00:00 00:00:00 ALFONZO Seybol d 2021-09-09 2021-09-11 Outside nullFlavo MNA [id number] Memoria 15:41:21 05:59:59 Medical r Neurology 00 [place] 2021-09-09 2021-09-11 Outside nullFlavo MNA [id number] Memoria 15:41:21 05:59:59 Medical r Neurology 00 l Records Nik Segovia 2021-09-09 2021-09-10 Outpatient MHMISCHER MHMISCHER [id number] 09:41:21 23:59:59 00 2021-09-09 2021-09-09 Outpatient ROSI ALARCON [id number] Rosi 00:00:00 00:00:00 ALFONZO Seybol marcello 2021-08-26 2021-08-26 Outpatient ROSI ALARCON [id number] Rosi 00:00:00 00:00:00 ALFONZO Seybol d 2021-07-05 2021-07-05 Outpatient ROSI ALARCON [id number] Rosi 00:00:00 00:00:00 ALFONZO Seybol marcello 2021-07-05 2021-07-05 Outpatient ROSI ALARCON [id number] Rosi 00:00:00 00:00:00 ALFONZO Seybol d 2021-06-02 2021-06-02 Outpatient ROSI ALARCON [id number] Rosi 00:00:00 00:00:00 ALFONZO Seybol d 2021-05-23 2021-05-23 Documentat Marina, 1.2.840.1 [id number] Methodi 00:00:00 00:00:00 m[address] H[id number] 3.430.2.7 Hospit a .3.062284 l .8 2021-05-23 2021-05-23 Documentat [place], 1.2.840.1 [id number] Methodi 00:00:00 00:00:00 ion Tony Hdz [id number] 3.430.2.7 Hospit a .3.475731 l .8 2021-05-18 2021-05-18 [facility] 1.2.840.1 [id number] Methodi 12:57:38 23:59:[id number] 3.430.2.7 Hospit a .3.736639 l .8 2021-05-18 2021-05-18 [facility] 1.2.840.1 [id number] Methodi 12:57:38 23:59:[id number] 3.430.2.7 Hospit a .3.733001 l .8 2021-05-18 2021-05-18 Office Marina, 1.2.840.1 [id number] Methodi 13:15:00 15:18:57 Visit Tony Hdz [id number] 3.430.2.7 Hospit a .3.351359 l .8 2021-05-18 2021-05-18 Office [place], 1.2.840.1 [id number] Methodi 13:15:00 15:18:57 Visit Tony Hdz [id number] 3.430.2.7 Hospit a .3.728951 l .8 2021-05-18 2021-05-18 Outpatient [facility] [id number] [place] 00:00:00 00:00:[address] 2021-05-18 2021-05-18 Orders Marina 1.2.840.1 [id number] Methodi 00:00:00 00:00:00 Only Tony Hdz 45374.1.[address] 3.430.2.7 Hospit a .3.051948 l .8 2021-05-18 2021-05-18 Jean Gray, 1.2.840.1 [id number] Methodi 00:00:00 00:00:00 Only Tony Hdz 87507.1.[address] 3.430.2.7 Hospit a .3.619924 l .8 2021-05-16 2021-05-16 Outpatient ROSI ALARCON [id number] Rosi 00:00:00 00:00:00 ALFONZO Seybol d 2021-05-11 2021-05-11 Outpatient ROSI ALARCON [id number] Rosi 00:00:00 00:00:00 ALFONZO Seybol d 2021-05-11 2021-05-11 Outpatient ROSI ALARCON [id number] Rosi 00:00:00 00:00:00 ALFONZO Seybol d 2021-04-28 2021-04-28 Office Jered Alarcon 1.2.840.114 [id number] Rosi 09:39:43 10:09:43 Visit Alfonzo Montenegro 350.1.13.13 russ Gomezsylvester 1.2.7.2.686 [id number] 2021-04-27 2021-04-27 Ambulatory nullFlavo MNA [id number] Memoria 15:15:00 15:15:00 Pre-Reg r Neurology 13 l Nik Segovia 2021-04-27 2021-04-27 Ambulatory nullFlavo MNA [id number] Memoria 15:15:00 15:15:00 Pre-Reg r Neurology 13 l Nik Segovia 2021-04-27 2021-04-27 Outpatient IE PUNEET [id number] Memoria 10:15:00 10:15:00 13 l Luca 2021-04-27 2021-04-27 [id number] 10:15:00 10:15:00 Malcom Jodry Santos 2021-04-21 2021-04-21 ambulatory STLMLC STLMLC [id number] Common 00:00:00 00:00:00 [facility] 2021-04-12 2021-04-12 Outpatient STLMLC STLMLC [id number] Common 00:00:00 00:00:00 [facility] 2021-04-06 2021-04-06 ambulatory STLMLC STLMLC [id number] Common 00:00:00 00:00:00 [facility] 2021-03-31 2021-03-31 Outpatient STLMLC STLMLC [id number] Common 00:00:00 00:00:00 [facility] 2021-03-30 2021-03-30 Outpatient STLMLC STLMLC [id number] Common 00:00:00 00:00:00 [facility] 2021-03-30 2021-03-30 Outpatient STLMLC STLMLC [id number] Common 00:00:00 00:00:00 [facility] 2021-03-28 2021-03-28 Outpatient ROYCE DELEON [facility] [id number] Univers 10:30:00 10:30:00 ity [facility] 2021-03-23 2021-03-23 [facility] 1.2.840.114 [id number] Univers 00:00:00 00:00:00 [facility] 350.1.13.10 it [facility] 4.2.7.2.686 [place] Sam?Blea [id number] [address] Medical Office Building 2021-03-16 2021-03-17 Outpatient nullFlavo MNA [id number] Memoria 13:15:00 04:59:59 r Neurology 12 l Nik Segovia 2021-03-16 2021-03-17 Outpatient nullFlavo MNA [id number] Memoria 13:15:00 04:59:59 r Neurology 12 l Nik Segovia 2021-03-17 2021-03-17 Outpatient STLMLC STLMLC [id number] Common 00:00:00 00:00:00 [facility] 2021-03-16 2021-03-16 Outpatient VIRGILIO Espinal [id number] 08:15:00 23:59:59 Malcom Graham 2021-03-16 2021-03-16 Outpatient MHIE IE [id number] Memoria 08:15:00 08:15:00 12 l Luca 2021-02-23 2021-02-23 Outpatient STLMLC STLMLC [id number] Common 00:00:00 00:00:00 [facility] 2021-02-21 2021-02-21 Outpatient STLMLC STLMLC [id number] Common 00:00:00 00:00:00 [facility] 2021-02-16 2021-02-16 Outpatient STLMLC STLMLC [id number] Common 00:00:00 00:00:00 [facility] 2021-02-15 2021-02-15 Outpatient STLMLC STLMLC [id number] Common 00:00:00 00:00:00 [facility] 2021-02-11 2021-02-11 [facility] [id number] Univers 08:15:00 08:56:02 [facility] 2021-02-11 2021-02-11 Office PeresOn license of [facility] [id number] [id number] Univers 08:13:08 08:56:02 Visit [facility] 350.1.13.10 it y of SURGICAL 4.2.7.2.686 [place] as SPECIALTI [phone] La dical [address] [facility] 2021-02-10 2021-02-10 [facility] [id number] Univers 13:00:00 13:00:00 [facility] 2021-02-03 2021-02-03 Outpatient Scott WOOD [facility] [id number] Univers 10:30:00 10:30:00 [facility] 2021-02-01 2021-02-02 Outpatient nullFlavo MNA [id number] Memoria 18:30:00 04:59:59 r Neurology 11 l Nik Segovia 2021-02-01 2021-02-02 Outpatient nullFlavo MNA [id number] Memoria 18:30:00 04:59:59 r Neurology 11 l Nik Segovia 2021-02-01 2021-02-01 Outpatient VIPUL EspinalSCHER VIPULSCHER [id number] 13:30:00 23:59:59 Malcom Graham 2021-02-01 2021-02-01 Outpatient MHIE MHIE [id number] Memoria 13:30:00 13:30:00 11 violet Segovia 2021-01-20 2021-01-20 Outpatient STLMLC STLMLC [id number] Common 00:00:00 00:00:00 [facility] 2021-01-14 2021-01-14 Outpatient STLMLC STLMLC [id number] Common 00:00:00 00:00:00 [facility] 2020-12-23 2020-12-23 Outpatient Scott JAFFE [facility] [id number] Univers 10:00:00 10:00:00 DEMETRIA [facility] 2020-12-23 2020-12-23 Outpatient Scott OLSON [facility] [id number] Univers 09:00:00 09:00:00 WONDIFUL ity o f [facility] 2020-12-16 2020-12-16 Outpatient Scott WOOD [facility] [id number] Univers 10:30:00 10:30:00 [facility] 2020-12-15 2020-12-15 Outpatient STLMLC STLMLC [id number] Common 00:00:00 00:00:00 [facility] 2020-12-15 2020-12-15 Outpatient STLMLC STLMLC [id number] Common 00:00:00 00:00:00 [facility] 2020-12-06 2020-12-06 Outpatient Scott WOOD [facility] [id number] Univers 15:52:18 23:59:00 [facility] 2020-11-25 2020-11-25 Outpatient ROYCE DELEON [facility] [id number] Univers 09:00:00 09:00:00 [facility] 2020-11-11 2020-11-11 Outpatient ROYCE DELEON [facility] [id number] Univers 15:30:00 15:30:00 [facility] 2020-11-04 2020-11-04 Outpatient R JESSESILVIA, [facility] [id number] Univers 10:00:00 10:00:00 EMELYN [facility] 2020-10-28 2020-10-28 Outpatient Scott NINA, [facility] [id number] Univers 10:45:00 10:45:00 [facility] 2020-10-25 2020-10-25 Outpatient Scott WOOD [facility] [id number] Univers 14:45:00 14:45:00 [facility] 2020-10-15 2020-10-15 Outpatient Scott WOOD [facility] [id number] Univers 10:00:00 10:00:00 [facility] 2020-10-08 2020-10-08 Outpatient Scott PERES, [facility] [id number] Univers 09:30:00 09:30:00 [facility] 2020-10-08 2020-10-08 Outpatient Scott LUGO, [facility] [id number] Univers 09:15:00 09:15:00 OSCAR [facility] 2020-09-24 2020-09-25 Outpatient nullFlavo MNA [id number] Memoria 19:00:00 05:59:59 r Neurology 10 l Nik Segovia 2020-09-24 2020-09-25 Outpatient nullFlavo MNA [id number] Memoria 19:00:00 05:59:59 r Neurology 10 l Nik Segovia 2020-09-24 2020-09-24 Outpatient VIPUL EspinalSCHFLORA MISCHER [id number] 13:00:00 23:59:59 Malcom Ada Graham 2020-09-24 2020-09-24 Outpatient Scott WOOD [facility] [id number] Univers 11:58:20 23:59:00 [facility] 2020-09-24 2020-09-24 Outpatient TYRA MARY [id number] Memoria 13:00:00 13:00:00 10 l Luca 2020-09-21 2020-09-21 Outpatient Scott PERES [facility] [id number] [facility] 00:00:00 00:00:00 [facility] 2020-09-09 2020-09-09 Outpatient Scott PERES [facility] [id number] Univers 09:15:00 09:15:00 ESTER crow [facility] 2020-09-06 2020-09-06 Ambulatory nullFlavo MNA [id number] Memoria 16:30:00 16:30:00 Pre-Reg r Neurology 09 l [place] Luc[place] 2020-09-06 2020-09-06 Ambulatory nullFlavo MNA [id number] Memoria 16:30:00 16:30:00 Pre-Reg r Neurology 09 l [place] Spangler 2020-09-06 2020-09-06 Outpatient MHIE TYRA [id number] Memoria 10:30:00 10:30:00 09 l [place] 2020-09-06 2020-09-06 Outpatient VIRGILIO Espinal [id number] 10:30:00 10:30:00 Malcom 09 Santos 2020-07-14 2020-07-14 Outpatient Scott FAUST [facility] [id number] Univers 19:00:00 19:00:00 BROOKE rm o f [facility] 2020-07-02 2020-07-02 Appointrosaura JEAN BAPTISTE [facility] Orthopedics [id number] [place] 14:30:00 14:30:00 t; RAJI JEAN BAPTISTE, - Sugar Phys ici RAJI, DPM Land 2 ans DPM 2020-06-01 2020-06-01 Ambulatory nullFlavo MNA [id number] Memoria 20:00:00 20:00:00 Pre-Reg r Neurology 08 l [place] 2020-06-01 2020-06-01 Ambulatory nullFlavo MNA [id number] Memoria 20:00:00 20:00:00 Pre-Reg r Neurology 08 l [place] Sp[place] 2020-06-01 2020-06-01 Outpatient MHIE MHIE [id number] Memoria 14:00:00 14:00:00 08 l [place] 2020-06-01 2020-06-01 Outpatient VIRGILIO Espinal [id number] 14:00:00 14:00:00 Malcom 08 Santos 2020-05-31 2020-05-31 [facility] [id number] [place] 10:00:00 10:00:00 t; RAJI JEAN BAPTISTE, - Sugar Phys ici RAJI, DPM [place] 2 ans DPM 2020-05-10 2020-05-10 [facility] MARKEL [facility] Orthopedics 700 [id number] [place] 09:00:00 09:00:00 t; RAJI JEAN BAPTISTE, - Sugar Phys ici RAJI, DPM [place] 2 ans DPM 2020-04-27 2020-04-27 [facility] [id number] [place] 14:45:00 14:45:00 t; RAJI JEAN BAPTISTE, - Sugar Phys ici RAJI, DPM [place] 2 ans DPM 2020-03-29 2020-03-29 [facility] [id number] [place] 13:00:00 13:00:00 t; RAJI JEAN BAPTISTE, - Sugar Phys ici RAJI, DPM [place] 2 ans DPM 2020-03-08 2020-03-08 [facility] [id number] [place] 11:15:00 11:15:00 t; RAJI JEAN BAPTISTE, - Sugar Phys ici RAJI, DPM [place] 2 ans DPM 2020-02-26 2020-02-26 Outpatient [facility] [id number] Memoria 10:46:09 16:30:00 [facility] 2020-02-26 2020-02-26 Outpatient [facility] [id number] Memoria 10:46:09 16:30:00 [facility] 2020-02-26 2020-02-26 Outpatient [facility] [id number] Memoria 05:46:09 11:30:00 r [facility] 2020-02-26 2020-02-26 Outpatient Markel [id number] 05:46:09 11:30:00 Raji 8 2020-02-26 2020-02-26 [facility] [id number] [place] 10:30:00 10:30:00 t; RAJI JEAN BAPTISTE, - Sugar Phys ici RAJI, DPM [place] 2 ans DPM 2020-02-02 2020-02-02 [facility] [id number] [place] 10:45:00 10:45:00 t; RJAI JEAN BAPTISTE, - Sugar Phys ici RAJI, DPM [place] 2 ans DPM 2020-01-15 2020-01-16 Outpatient nullFlavo MNA [id number] Memoria 20:00:00 04:59:59 r Neurology 07 l [place] Sp[place]ler 2020-01-15 2020-01-16 Outpatient nullFlavo MNA [id number] Memoria 20:00:00 04:59:59 r Neurology 07 l [place] Sp[place] 2020-01-15 2020-01-15 Outpatient DIMA EspinalMISCHER MHMISCHER [id number] 15:00:00 23:59:59 Malcom 07 Santos 2020-01-15 2020-01-15 Ambulatory nullFlavo MNA [id number] Memoria 20:00:00 20:00:00 Pre-Reg r Neurology 06 l [place] Spangler 2020-01-15 2020-01-15 Ambulatory nullFlavo MNA [id number] Memoria 20:00:00 20:00:00 Pre-Reg r Neurology 06 l [place] Luca 2020-01-15 2020-01-15 Outpatient MHIE MHIE [id number] Memoria 15:00:00 15:00:00 06 l [place] 2020-01-15 2020-01-15 Outpatient MHIE MHIE [id number] Memoria 15:00:00 15:00:00 07 l [place] 2020-01-15 2020-01-15 Outpatient VIPUL EspinalSCHER MHMISCHER [id number] 15:00:00 15:00:00 Malcom 06 Santos 2019-12-02 2019-12-03 Outpatient nullFlavo MNA [id number] Memoria 20:30:00 04:59:59 r Neurology 05 l [place] Spang[place] 2019-12-02 2019-12-03 Outpatient nullFlavo MNA [id number] Memoria 20:30:00 04:59:59 r Neurology 05 l [place] Luca 2019-12-02 2019-12-02 Outpatient DIMA EspinalMISCHER MHMISCHER [id number] 15:30:00 23:59:59 Malcom 05 Santos 2019-12-02 2019-12-02 Outpatient MHIE MHIE [id number] Memoria 15:30:00 15:30:00 05 violet Segovia 2019-05-23 2019-05-23 Ambulatory nullFlavo MNA [id number] Memoria 19:15:00 19:15:00 Pre-Reg r Neurology 04 l Nik Segovia 2019-05-23 2019-05-23 Ambulatory nullFlavo MNA [id number] Memoria 19:15:00 19:15:00 Pre-Reg r Neurology 04 l Nik Segovia 2019-05-23 2019-05-23 Outpatient MHIE TYRA [id number] Memoria 13:15:00 13:15:00 04 violet Segovia 2019-05-23 2019-05-23 Outpatient VIRGILIO Espinal SANDRASCHFLORA [id number] 13:15:00 13:15:00 Malcom Connor Santos 2019-03-23 2019-03-23 Emergency Harish, [facility] [id number] 12:37:57 13:11:00 Palomo Dumont 350.1.13.10 [place] 4.2.7.2.686 [place] [id number] [facility] 2019-03-23 2019-03-23 Orders Doctor [facility] [id number] 00:00:00 00:00:00 Only Unassigned, MARIA ELENA 350.1.13.10 [place] [id number] 2019-02-14 2019-02-15 Outpatient nullFlavo MNA [id number] Memoria 20:00:00 04:59:59 r Neurology 02 violet [place] Sp[place] 2019-02-14 2019-02-15 Outpatient nullFlavo MNA [id number] Memoria 20:00:00 04:59:59 r Neurology 02 violet [place] Luca 2019-02-14 2019-02-14 Outpatient VIRGILIO Espinal [id number] 15:00:00 23:59:59 Malcom Serge Graham 2019-02-14 2019-02-14 Outpatient MHIE TYRA [id number] Memoria 15:00:00 15:00:00 02 violet Luc[place] 2018-12-24 2018-12-25 Outpatient nullFlavo MNA [id number] Memoria 20:15:00 04:59:59 r Neurology 03 l Nik Spangler 2018-12-24 2018-12-25 Outpatient nullFlavo MNA [id number] Memoria 20:15:00 04:59:59 r Neurology 03 l Nik Spang[place] 2018-12-24 2018-12-24 Out[id number] 15:15:00 23:59:59 Malcom 03 Santos 2018-12-24 2018-12-24 Outpatient MHIE DIMAIE [id number] Memoria 15:15:00 15:15:00 03 violet [place] 2018-12-20 2018-12-21 Outpatient nullFlavo MNA [id number] Memoria 18:45:00 04:59:59 r Neurology 01 Nik Luca 2018-12-20 2018-12-21 Outpatient nullFlavo MNA [id number] Memoria 18:45:00 04:59:59 r Neurology 01 [place] 2018-12-20 2018-12-20 Outpatient DIMA [facility] [id number] 13:45:00 23:59:59 Malcom Santos 2018-12-20 2018-12-20 Outpatient MHIE DIMAIE [id number] Memoria 13:45:00 13:45:00 01 violet Luc[place] 2018-11-22 2018-11-23 Outpatient nullFlavo MNA [id number] Memoria 19:45:00 04:59:59 r Neurology 00 l [place] Spangler 2018-11-22 2018-11-23 Outpatient nullFlavo MNA [id number] Memoria 19:45:00 04:59:59 r Neurology 00 l [place] Spang[place] 2018-11-22 2018-11-22 Outpatient DIMA EspinalORSCHER MISCHER [id number] 14:45:00 23:59:59 Malcom 00 Santos 2018-11-22 2018-11-22 Outpatient MHIE DIMAIE [id number] Memoria 14:45:00 14:45:00 00 violet Segovia Results Test Description Test Time Test Comments Results Result Comments Source LABORATORY 2020-02-18 17:38:00 Test Item Value Reference Range Interpretation Comme nts Glucose Lvl (test code = Glucose Lvl) 89 70-99 [place] [address]-08-05 17:38:00 Test Item Value Reference Range Interpretation Comments BUN (test code = BUN) 12 7-22 [place] [address]-08-05 17:38:00 Test Item Value Reference Range Interpretation Comments Creatinine (test code = Creatinine) 0.79 0.50-1.40 [place] [address]-08-05 17:38:00 Test Item Value Reference Range Interpretation Comments Sodium Level (test code = Sodium Level) 141 135-145 [place] [address]-08-05 17:38:00 Test Item Value Reference Range Interpretation Comments Potassium Level (test code = Potassium 4.5 3.5-5.1 Level) [address]08-05 17:38:00 Test Item Value Reference Range Interpretation Comments Chloride Level (test code = Chloride 108 95-109 Level) [facility]gu[facility]QUUMLEMSL9243-21-89 17:38:00 Test Item Value Reference Range Interpretation Comments Total Carbon Dioxide Level (test code = 24 24-32 Total Carbon Dioxide Level) [address]08-05 17:38:00 Test Item Value Reference Range Interpretation Comments AGAP (test code = AGAP) 13.5 10.0-20.0 [place] [address]-08-05 17:38:00 Test Item Value Reference Range Interpretation Comments Calcium Level (test code = Calcium 9.5 8.5-10.5 Level) [facility] HospitalQuzgliuREBYCUNAPK0171-16-71 17:38:00 Test Item Value Reference Range Interpretation Comments eGFR (test code = eGFR) 92 [place] [address]-08-05 17:38:00 Test Item Value Reference Range Interpretation Comments Results (test code = Reported (02/18/20 12:38 Results) PM) [address]08-05 17:38:00 Test Item Value Reference Range Interpretation Comments White Blood Count (test code = White 6.4 3.7-10.4 Blood Count) [place] [address]-08-05 17:38:00 Test Item Value Reference Range Interpretation Comments Red Blood Cell Count (test code = Red 4.37 4.20-5.40 Blood Cell Count) [place] [address]-08-05 17:38:00 Test Item Value Reference Range Interpretation Comments Hemoglobin (test code = Hemoglobin) 12.7 12.0-16.0 [facility] HospitalGxoehszZQWJZAOSKB8223-95-63 17:38:00 Test Item Value Reference Range Interpretation Comments Hematocrit (test code = Hematocrit) 38.3 36.0-48.0 [facility] HospitalPtjfpeaZHYVLZIHQT6965-78-92 17:38:00 Test Item Value Reference Range Interpretation Comments MCV (test code = MCV) 87.5 80.0-98.0 [facility] HospitalNtbhlvpIHDNKGAFKF4360-91-52 17:38:00 Test Item Value Reference Range Interpretation Comments MCH (test code = MCH) 29.2 pg 27.0-31.0 [facility] HospitalEzuurctIKAXHYQFZQ1279-33-92 17:38:00 Test Item Value Reference Range Interpretation Comments MCHC (test code = MCHC) 33.3 32.0-36.0 [facility] HospitalSjqqgtdGKHFXSVKKQ0720-93-70 17:38:00 Test Item Value Reference Range Interpretation Comments RDW (test code = RDW) 14.2 11.5-14.5 [facility] HospitalIcynkfkINHOXIVXJQ7974-41-53 17:38:00 Test Item Value Reference Range Interpretation Comments Platelet (test code = Platelet) 300 133-450 [facility] HospitalAiwmzeuPFCDPKKMKL0391-41-29 17:38:00 Test Item Value Reference Range Interpretation Comments MPV (test code = MPV) 8.3 7.4-10.4 [facility] HospitalHmcqjfpXILQXYUPIK7312-24-42 17:38:00 Test Item Value Reference Range Interpretation Comments NRBCs # (test code = NRBCs #) 0.1 0.4-2.2 [facility] HospitalMuxgpbmLGBJAHEWSM9805-12-03 17:38:00 Test Item Value Reference Range Interpretation Comments Results (test code = Reported (02/18/20 12:38 Results) PM) [facility] HospitalQfkxkscNWTNDYVERH7477-28-07 17:38:00 Test Item Value Reference Range Interpretation Comments Neutrophil % (test code = Neutrophil %) 62.2 45.0-75.0 [facility] HospitalNxjhtnyLLMYDQEBZU0673-29-13 17:38:00 Test Item Value Reference Range Interpretation Comments Monocyte % (test code = Monocyte %) 6.8 2.0-12.0 [place]460-08-05 17:38:00 Test Item Value Reference Range Interpretation Comments Lymphocyte % (test code = Lymphocyte %) 26.9 20.0-40.0 [facility] HospitalUdugtqoLWHAKRUKVG1983-49-97 17:38:00 Test Item Value Reference Range Interpretation Comments Eosinophil # (test code 3.6 See_Comment [Au tomated message] The = Eosinophil #) system which generated this result tra nsmitted reference range : <=4.0. The reference r karan was not used to int erpret this result as normal/abnormal . [facility]zqszkBWZNDSLUQY3556-90-01 17:38:00 Test Item Value Reference Range Interpretation Comments Basophil % (test code = 0.5 See_Comment [Au tomated message] The Basophil %) system which ge nerated this result tra nsmitted reference range : <=1.0. The reference r karan was not used to int erpret this result as normal/abnormal . [facility]lakeQdmqvjiHHLKMMQZYL3605-30-64 17:38:00 Test Item Value Reference Range Interpretation Comments Neutrophil # (test code = Neutrophil #) 4.0 1.5-8.1 [facility] HospitalMaxdenqXSECBWJDXT4858-16-16 17:38:00 Test Item Value Reference Range Interpretation Comments Lymphocyte # (test code = Lymphocyte #) 1.7 1.0-5.5 [facility] HospitalOicsxqzGWAIHJZNSO5840-41-46 17:38:00 Test Item Value Reference Range Interpretation Comments Monocyte # (test code = 0.4 See_Comment [Au tomated message] The Monocyte #) system which ge nerated this result tra nsmitted reference range : <=0.8. The reference r karan was not used to int erpret this result as normal/abnormal . [facility]lakeStierafVSQPUGVNVL7283-44-70 17:38:00 Test Item Value Reference Range Interpretation Comments Eosinophil % (test code 0.2 See_Comment [Au tomated message] The = Eosinophil %) system which generated this result tra nsmitted reference range : <=0.5. The reference r karan was not used to int erpret this result as normal/abnormal . [facility]lakeTnciefqQQXVYCFCPW5753-95-08 17:38:00 Test Item Value Reference Range Interpretation Comments Results (test code = Reported (02/18/20 12:38 Results) PM) [facility] HospitalGhukvheCTLDRFTCAW5385-35-83 17:38:00 Test Item Value Reference Range Interpretation Comments Glucose Lvl (test code = Glucose Lvl) 89 70-99 [place] 137460-08-05 17:38:00 Test Item Value Reference Range Interpretation Comments BUN (test code = BUN) 12 7-22 [place] 137460-08-05 17:38:00 Test Item Value Reference Range Interpretation Comments Creatinine (test code = Creatinine) 0.79 0.50-1.40 [facility] HospitalUvtxyscELMJFDLEHF3963-23-91 17:38:00 Test Item Value Reference Range Interpretation Comments Sodium Level (test code = Sodium Level) 141 135-145 [facility] HospitalBwadrbsJEIOKEWKOW4077-62-76 17:38:00 Test Item Value Reference Range Interpretation Comments Potassium Level (test code = Potassium 4.5 3.5-5.1 Level) [facility] HospitalPyunikuMISAXEGNFG5417-27-59 17:38:00 Test Item Value Reference Range Interpretation Comments Chloride Level (test code = Chloride 108 95-109 Level) [facility] HospitalChgzfyoORBLGVRBLG2047-29-72 17:38:00 Test Item Value Reference Range Interpretation Comments Total Carbon Dioxide Level (test code = 24 24-32 Total Carbon Dioxide Level) [facility] HospitalZnozvifAODPEJHGCY5753-21-43 17:38:00 Test Item Value Reference Range Interpretation Comments AGAP (test code = AGAP) 13.5 10.0-20.0 [facility] HospitalCpxcefkHMLXYHKTXN2037-74-89 17:38:00 Test Item Value Reference Range Interpretation Comments Calcium Level (test code = Calcium 9.5 8.5-10.5 Level) [facility] HospitalTgmnflxRCFEHIOUDS8691-97-09 17:38:00 Test Item Value Reference Range Interpretation Comments eGFR (test code = eGFR) 92 [facility] HospitalZklxtdjGRIOIDHROJ0738-33-61 17:38:00 Test Item Value Reference Range Interpretation Comments Results (test code = Reported (02/18/20 12:38 Results) PM) [facility] HospitalIamlvgtTSBYDVHNPX6997-54-28 17:38:00 Test Item Value Reference Range Interpretation Comments White Blood Count (test code = White 6.4 3.7-10.4 Blood Count) [facility] HospitalVatoplxZEMSARLHEN6074-61-90 17:38:00 Test Item Value Reference Range Interpretation Comments Red Blood Cell Count (test code = Red 4.37 4.20-5.40 Blood Cell Count) [facility] HospitalHjuwckbITLQPYYWLC5504-55-54 17:38:00 Test Item Value Reference Range Interpretation Comments Hemoglobin (test code = Hemoglobin) 12.7 12.0-16.0 [facility] HospitalEvurkzfUMHGIFUNGY2493-83-47 17:38:00 Test Item Value Reference Range Interpretation Comments Hematocrit (test code = Hematocrit) 38.3 36.0-48.0 [facility] HospitalBxrpiawFDOFXHADLE4171-92-83 17:38:00 Test Item Value Reference Range Interpretation Comments MCV (test code = MCV) 87.5 80.0-98.0 [facility] HospitalDowusmbCHJOJXPETN5254-90-45 17:38:00 Test Item Value Reference Range Interpretation Comments MCH (test code = MCH) 29.2 pg 27.0-31.0 [facility] HospitalFitfjhrWUEXWKBBSR6559-81-11 17:38:00 Test Item Value Reference Range Interpretation Comments MCHC (test code = MCHC) 33.3 32.0-36.0 [id number] 17:38:00 Test Item Value Reference Range Interpretation Comments RDW (test code = RDW) 14.2 11.5-14.5 [id number] 17:38:00 Test Item Value Reference Range Interpretation Comments Platelet (test code = Platelet) 300 133-450 [id number] 17:38:00 Test Item Value Reference Range Interpretation Comments MPV (test code = MPV) 8.3 7.4-10.4 [id number] 17:38:00 Test Item Value Reference Range Interpretation Comments NRBCs # (test code = NRBCs #) 0.1 0.4-2.2 [id number] 17:38:00 Test Item Value Reference Range Interpretation Comments Results (test code = Reported (02/18/20 12:38 Results) PM) [facility] H[id number] 17:38:00 Test Item Value Reference Range Interpretation Comments Neutrophil % (test code = Neutrophil %) 62.2 45.0-75.0 [facility] H[id number] 17:38:00 Test Item Value Reference Range Interpretation Comments Monocyte % (test code = Monocyte %) 6.8 2.0-12.0 [facility] H[id number] 17:38:00 Test Item Value Reference Range Interpretation Comments Lymphocyte % (test code = Lymphocyte %) 26.9 20.0-40.0 [facility] H[id number] 17:38:00 Test Item Value Reference Range Interpretation Comments Eosinophil # (test code 3.6 See_Comment [Au tomated message] The = Eosinophil #) system which generated this result tra nsmitted reference range : <=4.0. The reference r karan was not used to int erpret this result as normal/abnormal . [facility] H[id number] 17:38:00 Test Item Value Reference Range Interpretation Comments Basophil % (test code = 0.5 See_Comment [Au tomated message] The Basophil %) system which ge nerated this result tra nsmitted reference range : <=1.0. The reference r karan was not used to int erpret this result as normal/abnormal . [facility] H[id number] 17:38:00 Test Item Value Reference Range Interpretation Comments Neutrophil # (test code = Neutrophil #) 4.0 1.5-8.1 [facility] H[id number] 17:38:00 Test Item Value Reference Range Interpretation Comments Lymphocyte # (test code = Lymphocyte #) 1.7 1.0-5.5 [facility] H[id number] 17:38:00 Test Item Value Reference Range Interpretation Comments Monocyte # (test code = 0.4 See_Comment [Au tomated message] The Monocyte #) system which ge nerated this result tra nsmitted reference range : <=0.8. The reference r karan was not used to int erpret this result as normal/abnormal . [facility] H[id number] 17:38:00 Test Item Value Reference Range Interpretation Comments Eosinophil % (test code 0.2 See_Comment [Au tomated message] The = Eosinophil %) system which generated this result tra nsmitted reference range : <=0.5. The reference r karan was not used to int erpret this result as normal/abnormal . [facility] H[id number] 17:38:00 Test Item Value Reference Range Interpretation Comments Results (test code = Reported (02/18/20 12:38 Results) PM) Naresh Segovia
--- NOTE | 2022-04-27 10:31 | RAD REPORT ---
EXAM DESCRIPTION: Arian Single View04/27/2022 10:23 am CLINICAL HISTORY: cough COMPARISON: February 2022 FINDINGS: The lungs appear clear of acute infiltrate. The heart is normal size IMPRESSION: No acute abnormalities displayed
--- NOTE | 2022-04-27 11:21 | EDPHYS ---
Physician Documentation [facility] Name: Trudi Villavicencio Age: 46 yrs Sex: Female : 1975 Arrival Date: 04/27/2022 Time: 09:24 Bed 18 Private MD: ED Physician Jacinto Thomas HPI: 04/27 09:36 This 46 yrs old Female presents to ER via Ambulatory with complaints of cough, rn Breathing Difficulty. 09:36 The patient or guardian reports cough. Onset: The symptoms/episode began/occurred 1 rn week(s) ago. Severity of symptoms: At their worst the symptoms were moderate, in the emergency department the symptoms are unchanged. Modifying factors: The symptoms are alleviated by nothing, the symptoms are aggravated by nothing. Associated signs and symptoms: Pertinent negatives: chest pain, fever. The patient has experienced similar episodes in the past. The patient has been recently seen at the [facility] Emergency Department. Pt reports 1 week of cough and sob, seen here 3 days ago, prescribed steroids, still taking, helped with nebulizer treatments, returns for persistent cough. No fever. . Historical: - Allergies: 09:34 Aspirin; iw 09:34 Codeine; iw 09:34 Topamax; iw 09:34 tramadol; iw - PMHx: 09:34 gastritis; neuropathy; osteoarthritis; Radiculopathy; iw - Immunization history:: . - Family history:: not pertinent. - Social history:: Smoking status: Patient denies any tobacco usage or history of. - Hospitalizations: : No recent hospitalization is reported. ROS: 09:36 Constitutional: Negative for fever, chills, and weight loss, Eyes: Negative for injury, rn pain, redness, and discharge, Neck: Negative for injury, pain, and swelling, Cardiovascular: Negative for chest pain, palpitations, and edema, Respiratory: + cough Abdomen/GI: Negative for abdominal pain, nausea, vomiting, diarrhea, and constipation, : Negative for injury, bleeding, discharge, and swelling, MS/Extremity: Negative for injury and deformity, Skin: Negative for injury, rash, and discoloration, Neuro: Negative for headache, weakness, numbness, tingling, and seizure. Exam: 09:36 Constitutional: This is a well developed, well nourished patient who is awake, alert, manager intern to room without difficulty or assistance. Head/Face: Normocephalic, atraumatic. Eyes: Periorbital areas with no swelling, redness, or edema. ENT: No stridor Cardiovascular: Regular rate and rhythm. No pulse deficits. Respiratory: No wheezing noted at rest. + mild wheezing with cough. No increased work of breathing, no retractions or nasal flaring. Skin: Warm, dry MS/ Extremity: Pulses equal, no cyanosis Neuro: Awake and alert, GCS 15 Vital Signs: 09:34 BP 132 / 110; Pulse 85; Resp 18 S; Temp 98.2; Pulse Ox 96% on R/A; iw 10:06 BP 110 / 59; Pulse 76; Resp 20; Pulse Ox 97% on R/A; mb8 10:49 BP 117 / 77; Pulse 80; Resp 18; Pulse Ox 98% on R/A; mb8 MDM: 09:25 Patient medically screened. rn 11:16 Differential Diagnosis: Bronchitis Upper Respiratory Infection Asthma Exacerbation rn Viral Syndrome Pneumonia. Data reviewed: vital signs, nurses notes, radiologic studies, plain films, and as a result, I will discharge patient. Counseling: I had a detailed discussion with the patient and/or guardian regarding: the historical points, exam findings, and any diagnostic results supporting the discharge/admit diagnosis, radiology results, the need for outpatient follow up, to return to the emergency department if symptoms worsen or persist or if there are any questions or concerns that arise at home. Special discussion: I discussed with the patient/guardian in detail that at this point there is no indication for admission to the hospital. It is understood, however, that if the symptoms persist or worsen the patient needs to return immediately for re-evaluation. ED course: CXR clear, no oxygen requirement, already on steroids, will dc home with cough medication as that is patient's main complaint that brought her here. . 04/27 09:33 Order name: CAROLINA Chest (1 view) rn 04/27 10:31 Order name: SAM ESCOBAR Administered Medications: No medications were administered Disposition Summary: 04/27/22 11:20 Discharge Ordered Location: Home rn Problem: new rn Symptoms: have improved rn Condition: Stable rn Diagnosis - Cough rn Followup: rn - With: Private Physician - When: As needed - Reason: Recheck today's complaints, Re-evaluation by your physician Discharge Instructions: - Discharge Summary Sheet rn - Cough, Adult rn Forms: - Medication Reconciliation Form rn - Thank You Letter rn - Antibiotic prevention rn - Prescription Opioid Use rn Prescriptions: - Guaifenesin AC 10-100 mg/5 mL Oral Liquid - take 10 milliliters by ORAL route every 4 hours As needed; 240 milliliter; rn Refills: 0, Product Selection Permitted - Bromfed DM 2-30-10 mg/5 mL Oral syrup - take 10 milliliter by ORAL route every 4 hours As needed; 200 milliliter; jmm Refills: 0, Product Selection Permitted Signatures: Dispatcher [employer] Kellee Amin RN RN iw Nieto, Roman, MD MD rn Bates, Michael, RN RN mb8
--- NOTE | 2022-04-27 11:21 | ER ---
Nurse's Notes [facility] Name: Trudi Villavicencio Age: 46 yrs Sex: Female : 1975 Arrival Date: 04/27/2022 Time: 09:24 Bed 18 Private MD: Diagnosis: Cough Presentation: 04/27 09:32 Chief complaint: Patient states: was seen here Sunday for asthma exacerbation , still iw feels SOB, is currently on steroids. Coronavirus screen: Client presents with at least one sign or symptom that may indicate coronavirus-19. Ebola Screen: Patient negative for fever greater than or equal to 101.5 degrees Fahrenheit, and additional compatible Ebola Virus Disease symptoms Patient denies exposure to infectious person. Patient denies travel to an Ebola-affected area in the 21 days before illness onset. No symptoms or risks identified at this time. Initial Sepsis Screen: Does the patient meet any 2 criteria? No. Patient's initial sepsis screen is negative. Does the patient have a suspected source of infection? No. Patient's initial sepsis screen is negative. Risk Assessment: Do you want to hurt yourself or someone else? Patient reports no desire to harm self or others. Onset of symptoms was April 24, 2022. 09:32 Method Of Arrival: Ambulatory iw 09:32 Acuity: HOWIE 4 iw Triage Assessment: 09:40 Respiratory: the patient has mild shortness of breath. mb8 Historical: - Allergies: 09:34 Aspirin; iw 09:34 Codeine; iw 09:34 Topamax; iw 09:34 tramadol; iw - PMHx: 09:34 gastritis; neuropathy; osteoarthritis; Radiculopathy; iw - Immunization history:: . - Family history:: not pertinent. - Social history:: Smoking status: Patient denies any tobacco usage or history of. - Hospitalizations: : No recent hospitalization is reported. Screenin:37 Abuse screen: Denies threats or abuse. Denies injuries from another. Nutritional mb8 screening: No deficits noted. Tuberculosis screening: No symptoms or risk factors identified. Fall Risk None identified. Assessment: 09:36 General: Appears uncomfortable, Behavior is cooperative, appropriate for age, anxious. mb8 Pain: Denies pain. Cardiovascular: Denies chest pain, diaphoresis, palpitations. Respiratory: Reports shortness of breath at rest on exertion cough that is non-productive, Airway is patent Respiratory effort is even, unlabored, Breath sounds are diminished bilaterally. 10:07 Reassessment: No changes from previously documented assessment. Patient and/or family mb8 updated on plan of care and expected duration. Pain level reassessed. Patient is alert, oriented x 3, equal unlabored respirations, skin warm/dry/pink. 10:07 General: X-ray tech at bedside. mb8 10:49 Reassessment: Patient and/or family updated on plan of care and expected duration. Pain mb8 level reassessed. Patient is alert, oriented x 3, equal unlabored respirations, skin warm/dry/pink. Patient updated on x-ray results. Vital Signs: 09:34 BP 132 / 110; Pulse 85; Resp 18 S; Temp 98.2; Pulse Ox 96% on R/A; iw 10:06 BP 110 / 59; Pulse 76; Resp 20; Pulse Ox 97% on R/A; mb8 10:49 BP 117 / 77; Pulse 80; Resp 18; Pulse Ox 98% on R/A; mb8 ED Course: 09:24 Patient arrived in ED. rg4 09:25 Jacinto Thomas MD is Attending Physician. rn 09:34 Triage completed. iw 09:34 Arm band placed on. iw 09:36 Carrington Yoo RN is Primary Nurse. mb8 09:37 Patient has correct armband on for positive identification. Placed in gown. Bed in low mb8 position. Call light in reach. Side rails up X2. 09:37 Client placed on continuous cardiac and pulse oximetry monitoring. NIBP monitoring mb8 applied. 09:38 No provider procedures requiring assistance completed. mb8 11:50 Patient did not have IV access during this emergency room visit. mb8 Administered Medications: No medications were administered Medication: 09:37 VIS not applicable for this client. mb8 Outcome: 11:20 Discharge ordered by . rn 11:49 Discharged to home ambulatory. mb8 11:49 Condition: stable 11:49 Discharge instructions given to patient, Instructed on discharge instructions, follow up and referral plans. medication usage, Demonstrated understanding of instructions, follow-up care, medications, Prescriptions given X 1. 11:50 Patient left the ED. mb8 Signatures: Kellee Tran RN RN Jacinto Thomas MD MD rn Garcia, Rubi rg4 Carrington Yoo, RN RN mb8
[2022-04-27 11:55] VITALS: TEMP 98.2
[2022-04-27 11:57] VITALS: BP 117/77; O2SAT 98
== END 2022-04-27 11:50 | disposition home or self-care (01) ==
LOC: ER 09:22
DX: R05.9 Cough, unspecified (principal); G62.9 Polyneuropathy, unspecified; M19.90 Unspecified osteoarthritis, unspecified site; M54.10 Radiculopathy, site unspecified; Z88.6 Allergy status to analgesic agent; Z88.5 Allergy status to narcotic agent
CPT/HCPCS: 71045; 99282

== ENCOUNTER 2022-07-16 17:50 | Emergency (ER) | payer SELFPAY ==
--- OUTSIDE RECORDS SUMMARY | 2022-07-16 17:58 | XMS REPORT | Continuity of Care Document ---
:1975 Author Organization [facility] t Address [address] [place] [address] Care Team Providers Name Role Phone Asked, No Pcp Primary Care Physician Unavailable Danie Garcia Attending Clinician Unavailable ESTER PERES Attending Clinician Unavailable Doctor Unassigned, [place] Attending Clinician Unavailable HAMZAH CAMPBELL Attending Clinician Unavailable CAT PRITCHETT Attending Clinician Unavailable Cat Pritchett DO Attending Clinician ALFONZO ALARCON Attending Clinician Unavailable Marina PERALTA, Tony Hdz Attending Clinician Alfonzo Alarcon MD Attending Clinician [phone] Malcom Espinal Attending Clinician ROYCE PRUETT Attending Clinician Unavailable Ester Peres MD Attending Clinician MG WOOD Attending Clinician Unavailable DEMETRIA JAFFE Attending Clinician Unavailable THANIA OLSON Attending Clinician Unavailable EMELYN PHILLIPS Attending Clinician Unavailable OSCAR LUGO Attending Clinician Unavailable BROOKE FAUST Attending Clinician Unavailable RAJI JEAN BAPTISTE DPM Attending Clinician Unavailable Raji Jean Baptiste Attending Clinician Palomo Cervantes Attending Clinician ESTER PERES Admitting Clinician Unavailable Raji Jean Baptiste Admitting Clinician Payers Payer Name Policy Type Policy Number Effective Date Expiration Date S ource [place] OF [place] [id number] 2020 - OUT OF STATE 0 00:00:00 Blue Cross 6 [id number] 2020 Common Spiri t Blue Shield of 00:00:00 - [facility] BCBS 2 [id number] 2021 0 00:00:00 Problems Condition Condition Condition Status Onset [...] f medial medial 00:00: g of this [place] meniscus meniscus 00 note Medica l of left of left might be Branch knee as knee as different current current from the injury, injury, original. 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 - 04:01:02 l (disorder) (disorder) 00:00: He rmann Active 07/16/1976 Problem 02/28/2020 reports reaction from [facility] [id number] Multiple Problem Commo n joint pain [facility] [id number] Neuropathi Problem Co mmon c pain [facility] [id number] Fibromyalg Problem Co mmon ia Spirit affecting - CHI multiple [facility] [id number] 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 pain Center laterality , unspecifie d chronicity [id number] Anxiety Problem Common Spirit [facility] Acute Acute Problem Common bronchitis bronchitis Sp elana , - CHI unspecifie [facility] Essential Essential Problem Com mon hypertensi hypertensi Sp elana on on - [facility] Acute Acute Problem Common upper upper Spirit respirator respirator - CHI y y St infection infection, [place] es unspecifie Medica l d Center [id number] History of Problem Co mmon hiatal Spirit hernia - [facility] Asthma Uncomplica Problem Commo n without margaret Spirit status asthma, - CHI asthmaticu unspecifie St s d asthma [facility] severity, Medical unspecifie Center d whether persistent [id number] Hypothyroi Problem Com mon dism, Spirit unspecifie - CHI d type [facility] Seasonal Seasonal Problem Commo n allergic allergic Spirit rhinitis rhinitis, - CHI unspecifie [facility] [id number] Depression Problem Co mmon with Spirit anxiety [facility] [id number] Suicidal Problem Common ideation [facility] [id number] Non-intrac Problem Com mon table Spirit vomiting - CHI with St nausea [facility] unspecifie Medica l d vomiting Center type [id number] Epigastric Problem Com mon pain [facility] [id number] Endometria Problem Co mmon l cancer [facility] [id number] Slurred Problem Commo n speech [facility] [id number] Moderate Problem Comm on asthma Spirit without - CHI complicati St on, [facility] unspecifie Medica l d whether Center persistent [id number] Noncomplia Problem Co mmon nce with Spirit medication - CHI regimen [facility] [id number] Gastroesop Problem Co mmon hageal [facility] reflux - CHI disease [facility] esophagiti Medica l s Center [id number] Chronic Problem Commo n pruritus [facility] No known No known Disease Metho di active active st problems problems Hospit a l Asthma Asthma Problem Active 2021-09-13 Lev trupti (disorder) (disorder) 00:27:51 l Active Luca Problem 09/13/2021 [facility] Gastritis Gastritis Problem Active 2021-09-13 Memoria (disorder) (disorder) 00:27:51 l Active Luca Problem 09/13/2021 [facility] Hypertensi Hypertens Problem Active 2021-09-13 Memoria ve shireen 00:27:51 l disorder, disorder, Herm mckenna systemic systemic arterial arterial (disorder) (disorder) Active Problem 09/13/2021 [facility] Migraine Migraine Problem Active 2021-09-13 Memoria (disorder) (disorder) 00:27:51 l Active Luca Problem 09/13/2021 [facility] Morbid Morbid Problem Active 2021-09-13 Lev trupti obesity obesity 00:27:51 l (disorder) (disorder) He rmann Active Problem [facility]2021 [facility] 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 00:27:51 l (disorder) (disorder) He rmann Active Problem 09/13/2021 [facility] Hemangioma Hemangiom Problem Active 2021-09-13 Memoria of a of 00:27:51 l intracrani intracrani He barbara al al structure structure (disorder) (disorder) Active Problem 09/13/2021 [facility] Ankle pain Ankle Problem Active 2021-09-13 Memoria (finding) pain 00:27:51 l (finding) Luca Active Problem 09/13/2021 [facility] Paresthesi Paresthes Problem Active 2021-09-13 Memoria a ia 00:27:51 l (finding) (finding) Herm mckenna Active Problem 09/13/2021 [facility] Lumbar Lumbar Problem Active 2021-09-13 Lev trupti radiculopa radiculopa 00:27:51 l thy thy [place] (disorder) (disorder) Active Problem 09/13/2021 [facility] Peripheral Periphera Problem Active 2021-09-13 Memoria nerve l nerve 00:27:51 l disease disease Luca (disorder) (disorder) Active Problem 09/13/2021 [facility] Acid Acid Problem Active 2020-02-28 Memor ia reflux reflux 04:01:02 l (finding) (finding) Herm mckenna Active Problem 02/28/2020 [facility] Allergy - Allergy - Problem Active 2020-02-28 Memoria specialty specialty 04:01:02 l (qualifier (qualifier He rmann value) value) Active Problem 02/28/2020 [facility] Fracture Fracture [...] Active U T pain pain Physici ans Disc Disc Disease Active Univers disease, disease, ity of degenerati degenerati [place] ve, lumbar ve, lumbar Me dical or or Branch lumbosacra lumbosacra l l Cervical Cervical Disease Active Unive rs herniated herniated ity of disc disc [facility] Lumbar Lumbar Disease Active Univers herniated herniated ity of disc disc [facility] Cervical Cervical Disease Active Unive rs herniated herniated ity of disc disc [facility] History of Past Illness Condition Condition Condition Status Onset Resolution Last Treating Co mments Source Name Details Category Date Date Treatment Clinician Date Nondisplac Nondispla Problem 2020-02-28 2020-02-28 Memoria ed dome day dome 8- 04:01:02 04:01:02 [...] 00 [place]-Top s iramate Topirama Propensi Active Other (See Other Me thodi te ty to Comments) 09-06 reaction( st adverse 00:00: s): Hospita reaction 00 Unknown l s to drug Topirama Propensi Active Nausea and Other Ke [...] ity of 00:00: [place] 00 Medical Branch Aluminum Propensi Active Other (See Other Me [...] Hospita reaction 00 l s to drug Tramadol Propensi Active Rosi ty to 02-05 Seybold adverse 00:00: reaction 00 s Calcium Propensi Active Other Other Rosi Acetylsa ty to 02-05 reaction( Seybo ld licylate adverse 00:00: s): Maciel reaction 00 syndrome, s UnknownRe yes Syndrome Yung Syndrome Yung Syndrome codeine codeine Active Memoria l [place] aspirin aspirin Active Memoria l [place] Topamax Topamax Active Memoria l [place] traMADol traMADol Active Memori a l [place] Codeine Codeine Active Unknown Common Spirit - [facility] topirama topirama Active Unknown Commo n te te Spirit - [facility] aspirin aspirin Active Unknown Common Spirit - [facility] codeine Allergy Active [facility] to drug Physici (finding ans ) Family History Family Member Diagnosis Comments Start Date Stop Date Source Maternal grandmother Stroke [facility] Maternal grandmother Diabetes [facility] Natural mother Heart attack [facility] Natural mother Heart disease [facility] Natural father Diabetes [facility] Natural father Heart attack [facility] Maternal aunt Cancer [facility] Social History Social Habit Start Date Stop Date Quantity Comments Source History of Common Spirit - Tobacco Use [facility] Exposure to Not sure Rosi armendariz SARS-CoV-2 (event) Alcohol intake 2021-05-19 2021-05-19 Lifetime Gnosticist 00:00:00 00:00:00 non-drinker Hospital (finding) Tobacco use and 2021-05-19 2021-05-19 Smokeless tobacco Me thodist exposure 00:00:00 00:00:00 non-user Hospital Sex Ass[birth year] At [birth year] Gnosticist 00:00:00 00:00:00 Hospital Smoking Status Start Date [...] l nitrofurant 2020-07 Yes nitrofuran Methodi oin, [address] macrocrysta 10:54: monohydrat Hospita l-monohydra [...] 100 (MACROBID) mg capsule 100 MG capsule flu vac qv 2020-07 Yes Flublok Meth jason 2019,18yr 07-[address] up,rc,PF, 10:53: [id number] Hos helga (Flublok 59 (PF) 180 l Quad mcg (45 [id number], mcg x PF,) 180 4)/0.5 mL mcg (45 mcg IM syringe x 4)/0.5 mL PHARMACIST syringe ADMINISTER ED IMMUNIZATI ON ADMINISTER ED AT TIME OF DISPENSING doxycycline 2020-07 Yes doxycyclin Methodi (VIBRA-TABS -04 [...] tablet 10:53: tablet Hospit a 59 l doxycycline 2020-07 Yes doxycyclin Methodi (VIBRA-TABS 1-04 [...] ON ADMINISTER ED AT TIME OF DISPENSING flu vac qv 2020-07 Yes Flublok Meth [...] qv 2020-07 Yes Flublok Meth jason 2018,18yr -[address] up,rc,PF, 10:53: Hos helga (Flublok [...] tablet 10:53: tablet Hospit a 59 l bromphenira 2020-07 Yes bromphenir Methodi mine-pseudo 07-19 [...] Hospita 10 mg 00 l tablet Cyclobenzap 2020-07 1{tbl} Take 1 K elsey rine HCl [...] 32 on daily Suspension Cyclobenzap 2020-07 Yes [id number] 10mg Take 1 Rosi rine HCl 10 [...] 0-04 Seybold oral Tablet 00:00: 00 ubrogepant 2021-0 Yes 100 mg = 1 M emoria 100 MG Oral 9-10 tab, PO, l Tablet 21:15: PRN, PRN Luca [Ubrelvy] 00 Other -See Comment, X 30 day, # 10 tab, 1 Refill(s), Pharmacy: [id number], For Migraine. May repeat dose after 2 hours. Max dose 200 mg/ 24 hours, 152.4, cm, 03/16/21 8:31:00 CDT, Height, 112.727, kg, 03/16/21 8... ubrogepant 2021-0 Yes 100 mg = 1 M emoria 100 MG Oral 9-10 tab, PO, l Tablet 21:15: PRN, PRN Luca [Ubrelvy] 00 Other -See Comment, X 30 day, # 10 tab, 1 Refill(s), Pharmacy: [facility], For Migraine. May repeat dose after 2 hours. Max dose 200 mg/ 24 hours, 152.4, cm, 03/16/21 8:31:00 CDT, Height, 112.727, kg, 03/16/21 8... ubrogepant 2021-0 Yes 100 mg = 1 M ethodi (Ubrelvy) 9-10 tab, PO, st 100 mg 00:00: PRN, PRN Hospita tablet 00 Other -See l Comment, X 30 day, # 10 tab, 1 Refill(s), Pharmacy: [facility], For Migraine. May repeat dose after 2 hours. Max dose 200 mg/ 24 hours, 152.4, cm, 03/16/21 8:31:00 CDT, Height, 112.727, kg, 03/16/21 8... ubrogepant 2021-0 Yes 100 mg = 1 M ethodi (Ubrelvy) 9-10 tab, PO, st 100 mg 00:00: PRN, PRN Hospita tablet 00 Other -See l Comment, X 30 day, # 10 tab, 1 Refill(s), Pharmacy: [facility], For Migraine. May repeat dose after 2 hours. Max dose 200 mg/ 24 hours, 152.4, cm, 03/16/21 8:31:00 CDT, Height, 112.727, kg, 03/16/21 8... ubrogepant 2021-0 Yes 100 mg = 1 M ethodi (Ubrelvy) 9-10 tab, PO, st 100 mg 00:00: PRN, PRN Hospita tablet 00 Other -See l Comment, X 30 day, # 10 tab, 1 Refill(s), Pharmacy: [facility], For Migraine. May repeat dose after 2 hours. Max dose 200 mg/ 24 hours, 152.4, cm, 03/16/21 8:31:00 CDT, Height, 112.727, kg, 03/16/21 8... ubrogepant 2021-0 Yes 100 mg = 1 M ethodi (Ubrelvy) 9-10 tab, PO, st 100 mg 00:00: PRN, PRN Hospita tablet 00 Other -See l Comment, X 30 day, # 10 tab, 1 Refill(s), Pharmacy: [facility], For Migraine. May repeat dose after 2 hours. Max dose 200 mg/ 24 hours, 152.4, cm, 03/16/21 8:31:00 CDT, Height, 112.727, kg, 03/16/21 8... ubrogepant 2021-0 Yes 100 mg = 1 M ethodi (Ubrelvy) 9-10 tab, PO, st 100 mg 00:00: PRN, PRN Hospita tablet 00 Other -See l Comment, X 30 day, # 10 tab, 1 Refill(s), Pharmacy: [facility], For Migraine. May repeat dose after 2 hours. Max dose 200 mg/ 24 hours, 152.4, cm, 03/16/21 8:31:00 CDT, Height, 112.727, kg, 03/16/21 8... ubrogepant 2021-0 Yes 100 mg = 1 M ethodi (Ubrelvy) 9-10 tab, PO, st 100 mg 00:00: PRN, PRN Hospita tablet 00 Other -See l Comment, X 30 day, # 10 tab, 1 Refill(s), Pharmacy: [facility], For Migraine. May repeat dose after 2 hours. Max dose 200 mg/ 24 hours, 152.4, cm, 03/16/21 8:31:00 CDT, Height, 112.727, kg, 03/16/21 8... ubrogepant 2020-0 No 100 mg = 1 M emoria 100 MG Oral 9-03 tab, PO, l Tablet 16:30: PRN, PRN Luca [Ubrelvy] 00 Other -See Comment, X 30 day, # 10 tab, 1 Refill(s), Pharmacy: [place] [id number], For Migraine. May repeat dose after 2 hours. Max dose 200 mg/ 24 hours, 152.4, cm, 03/16/21 8:31:00 CDT, Height, 112.727, kg, 03/16/21 8:... ubrogepant 0 No 100 mg = 1 M emoria 100 MG Oral 9-03 tab, PO, l Tablet 16:30: PRN, PRN [place] [Ubrelvy] 00 Other -See Comment, X 30 day, # 10 tab, 1 Refill(s), Pharmacy: [place] [id number], For Migraine. May repeat dose after 2 hours. Max dose 200 mg/ 24 hours, 152.4, cm, 03/16/21 8:31:00 CDT, Height, 112.727, kg, 03/16/21 8:... amitriptyli Yes = 1 tab, Me moria ne 75 mg 9-01 PO, l oral tablet 23:57: Bedtime, # Luca 00 30 ea, 5 Refill(s), Pharmacy: [facility], 152.4, cm, 03/16/21 8:31:00 CDT, Height, 112.727, kg, 03/16/21 8:31:00 CDT, Weight amitriptyli 2020-0 Yes = 1 tab, Me moria ne 75 mg 9-01 PO, l oral tablet 23:57: Bedtime, # [place] 00 30 ea, 5 Refill(s), Pharmacy: [facility], 152.4, cm, 03/16/21 8:31:00 CDT, Height, 112.727, kg, 03/16/21 8:31:00 CDT, Weight Amitriptyli Yes amitriptyl Rosi ne HCl 75 9-01 ine 75 mg Seybo ld MG oral 00:00: tablet Tablet 00 ubrogepant No 100 mg = 1 M emoria 100 MG Oral 8-23 tab, PO, l Tablet 21:26: PRN, PRN [place] [Ubrelvy] 00 Other -See Comment, X 30 day, # 10 tab, 1 Refill(s), Pharmacy: [facility], For Migraine. May repeat dose after 2 hours. Max dose 200 mg/ 24 hours, 152.4, cm, 02/01/21 13:49:00 CDT, Height, 116.818, kg, 02/01/21 1... ubrogepant No 100 mg = 1 M emoria 100 MG Oral 8-23 tab, PO, l Tablet 21:26: PRN, PRN [place] [Ubrelvy] 00 Other -See Comment, X 30 day, # 10 tab, 1 Refill(s), Pharmacy: [facility], For Migraine. May repeat dose after 2 hours. Max dose 200 mg/ 24 hours, 152.4, cm, 02/01/21 13:49:00 CDT, Height, 116.818, kg, 02/01/21 1... Polytrim Polytrim 2020- No 1{drop_ QID Polytrim 87866-6.1 27681-6.1 8 08-16 into_af 46461-5.1 UNIT/ML UNIT/ML 00:00: 00:00 fected_ UNIT/ML 00 :00 eye} ibuprofen Yes Methodi (ADVIL) 600 8-04 st MG tablet 00:00: Hospita 00 l ibuprofen 2020-0 Yes Methodi (ADVIL) 600 8-04 st MG tablet 00:00: Hospita 00 l ibuprofen 2020-0 Yes Methodi (ADVIL) 600 8-04 st MG tablet 00:00: Hospita 00 l ibuprofen 2020-0 Yes Methodi (ADVIL) 600 8-04 st MG tablet 00:00: Hospita 00 l ibuprofen 2020-0 Yes Methodi (ADVIL) 600 8-04 st MG tablet 00:00: Hospita 00 l ibuprofen 2020-0 Yes Methodi (ADVIL) 600 8- st MG tablet 00:00: Hospita 00 l Ibuprofen 2020-0 Yes Rosi 600 MG oral 02-16 Seybold Tablet 00:00: 00 Cyclobenzap Cyclobenzap 2020-0 2021- No 1{table QD Cyclobenza rine HCl 10 rine HCl 10 02-16 t_at_be dex HCl MG MG 00:00: 00:00 dtime_a 10 MG 00 :00 s_neede d} Cyclobenzap Cyclobenzap 2020-0 1- No 1{table QD Cyclobenza rine HCl 10 rine HCl 10 02-16 t_at_be dex HCl MG MG 00:00: 00:00 dtime_a 10 MG 00 :00 s_neede d} Cyclobenzap Cyclobenzap 2020-0 2021- No 1{table QD Cyclobenza rine HCl 10 rine HCl 10 02-16 t_at_be dex HCl MG MG 00:00: 00:00 dtime_a 10 MG 00 :00 s_neede d} Cyclobenzap Cyclobenzap 2020-0 1- No 1{table QD Cyclobenza rine HCl 10 rine HCl 10 02-16 t_at_be dex HCl MG MG 00:00: 00:00 dtime_a 10 MG 00 :00 s_neede d} Cyclobenzap Cyclobenzap 2020-0 1- No 1{table QD Cyclobenza rine HCl 10 rine HCl 10 02-16 t_at_be dex HCl MG MG 00:00: 00:00 dtime_a 10 MG 00 :00 s_neede d} Ibuprofen Ibuprofen 2020-0 1- No BID Ibuprofen 600 MG 600 MG 02-16 600 MG 00:00: 00:00 00 :00 Ibuprofen Ibuprofen 2020-0 2020- No BID Ibuprofen 600 MG 600 MG 02-1618 600 MG 00:00: 00:00 00 :00 methylPREDN 2021-0 Yes [id number] 84mg Take 21 Univers ISolone 7-30 tablets by ity of (MEDROL, 00:00: mouth [place] GENARO,) 4 mg 00 SEE-INSTRU Med ical tablets CTIONS. Branch follow package directions methylPREDN 2020-0 Yes [id number] 84mg Take 21 Univers ISolone 7-30 tablets by ity of (MEDROL, 00:00: mouth [place] GENARO,) 4 mg 00 SEE-INSTRU Med ical tablets CTIONS. Branch follow package directions methylPREDN 2020-0 Yes [id number] 84mg Take 21 Univers ISolone 7-30 tablets by ity of (MEDROL, 00:00: mouth [place] GENARO,) 4 mg 00 SEE-INSTRU Med ical tablets CTIONS. Branch follow package directions methylPREDN 2020-0 Yes [id number] 84mg Take 21 Univers ISolone 7-30 tablets by ity of (MEDROL, 00:00: mouth [place] GENARO,) 4 mg 00 SEE-INSTRU Med ical tablets CTIONS. Branch follow package directions Levothyroxi Levothyroxi No QD Levothyrox ne Sodium ne Sodium 7-02 ine Sodium 150 MCG 150 MCG 00:00: 150 MCG 00 Levothyroxi Levothyroxi No QD Levothyrox ne Sodium ne Sodium 7-02 ine Sodium 150 MCG 150 MCG 00:00: 150 MCG 00 Levothyroxi Levothyroxi No QD Levothyrox ne Sodium ne Sodium 7-02 ine Sodium 150 MCG 150 MCG 00:00: 150 MCG 00 Levothyroxi Levothyroxi No QD Levothyrox ne Sodium ne Sodium 7-02 ine Sodium 150 MCG 150 MCG 00:00: 150 MCG 00 Levothyroxi Levothyroxi No QD Levothyrox ne Sodium ne Sodium 7-02 ine Sodium 150 MCG 150 MCG 00:00: 150 MCG 00 Levothyroxi Levothyroxi No QD Levothyrox ne Sodium ne Sodium 7-02 ine Sodium 150 MCG 150 MCG 00:00: 150 MCG 00 Levothyroxi Levothyroxi No QD Levothyrox ne Sodium ne Sodium 7-02 ine Sodium 150 MCG 150 MCG 00:00: 150 MCG 00 Levothyroxi Levothyroxi No QD Levothyrox ne Sodium ne Sodium 7-02 ine Sodium 150 MCG 150 MCG 00:00: 150 MCG 00 Levothyroxi Levothyroxi 2021-0 No QD Levothyrox ne Sodium ne Sodium 7-02 ine Sodium 150 MCG 150 MCG 00:00: 150 MCG 00 Levothyroxi Levothyroxi No QD Levothyrox ne Sodium ne Sodium 7-02 ine Sodium 150 MCG 150 MCG 00:00: 150 MCG 00 Levothyroxi Levothyroxi No QD Levothyrox ne Sodium ne Sodium 7-02 ine Sodium 150 MCG 150 MCG 00:00: 150 MCG 00 Levothyroxi Levothyroxi No QD Levothyrox ne Sodium ne Sodium 6-08 ine Sodium 25 MCG 25 MCG 00:00: 25 MCG 00 Levothyroxi Levothyroxi No QD Levothyrox ne Sodium ne Sodium 6-08 ine Sodium 25 MCG 25 MCG 00:00: 25 MCG 00 medroxyPROG Yes every 24 Ke lsey ESTERone 5-13 hours Seybold Acetate 10 00:00: MG oral 00 Tablet medroxyPROG Yes 20mg Take 2 Univers ESTERone 5-13 tablets by ity o f (PROVERA) 00:00: mouth [place] 10 mg 00 daily. Medical tablet Branch medroxyPROG 0 Yes 20mg Take 2 Univers ESTERone 5-13 tablets by ity o f (PROVERA) 00:00: mouth [place] 10 mg 00 daily. Medical tablet Branch medroxyPROG Yes 20mg Take 2 Univers ESTERone 5-13 tablets by ity o f (PROVERA) 00:00: mouth [place] 10 mg 00 daily. Medical tablet Branch medroxyPROG Yes 20mg Take 2 Univers ESTERone 5-13 tablets by ity o f (PROVERA) 00:00: mouth [place] 10 mg 00 daily. Medical tablet Branch rizatriptan Yes 5 mg = 1 Me moria 5 MG Oral 3-12 tab, PO, l Tablet 20:23: ONCE, PRN Burak n [Maxalt] 00 for migraine headache, # 9 tab, 1 Refill(s), Pharmacy: [facility], 160.02, cm, 09/24/20 13:34:00 MINE BOSS, Height, 113.636, kg, 09/24/20 13:34:00 MINE BOSS, Weight rizatriptan 2020-0 Yes 5 mg = 1 Me moria 5 MG Oral 3-12 tab, PO, l Tablet 20:23: ONCE, PRN Burak n [Maxalt] 00 for migraine headache, # 9 tab, 1 Refill(s), Pharmacy: [facility], 160.02, cm, 09/24/20 13:34:00 MINE BOSS, Height, 113.636, kg, 09/24/20 13:34:00 MINE BOSS, Weight Rizatriptan 2020-0 Yes rizatripta Rosi Benzoate 5 3-12 n 5 mg Seybold MG oral 00:00: tablet Tablet 00 TAKE 1 TABLET BY MOUTH ONCE DAILY NEEDED FOR HEADACHE MIGRAINE rizatriptan 2019-0 Yes 5 mg = 1 Me moria 5 MG Oral 9-15 tab, PO, l Tablet 22:44: ONCE, PRN Burak n [Maxalt] 00 for migraine headache, # 9 tab, 1 Refill(s), Pharmacy: [facility], 152.4, cm, 01/15/20 15:04:00 CDT, Height, 115.455, kg, 01/15/20 15:04:00 CDT, Weight rizatriptan 2019-0 Yes 5 mg = 1 Me moria 5 MG Oral 9-15 tab, PO, l Tablet 22:44: ONCE, PRN Burak n [Maxalt] 00 for migraine headache, # 9 tab, 1 Refill(s), Pharmacy: [facility], 152.4, cm, 01/15/20 15:04:00 CDT, Height, 115.455, kg, 01/15/20 15:04:00 CDT, Weight Misc 2020-0 No 900 mL, Memoria Medication 8-13 Soln-IV, l 15:27: IV, Once, [place] first dose 02/26/20 10:27:00 CDT, stop date 02/26/20 10:27:00 CDT Misc 2020-0 No 900 mL, Memoria Medication 8-13 Soln-IV, l 15:27: IV, Once, [place] first dose 02/26/20 10:27:00 CDT, stop date 02/26/20 10:27:00 CDT LR 1,000 mL 2020-0 No 1,000 mL, M emoria 8-13 IV, 75 l 15:20: mL/hr, start date 02/26/20 10:20:00 CDT, 2.14, m2 Saline Lock 2020-0 No 10 mL, Lev trupti Flush -13 [...] 2020-0 No 10 mL, Lev trupti Flush -13 Soln, IV l 15:20: Push, As Luca 00 Indicated PRN for flush, first dose 02/26/20 10:20:00 CDT Dilaudid 2020-0 No 0.5 mg = Memor ia 8-13 0.5 mL, l 15:20: Injection, Clinton 00 IV Push, q10min PRN for pain severe (7-10), first dose 02/26/20 10:20:00 CDT Demerol HCl 2020-0 No 12.5 mg = M emoria 8-13 0.5 mL, l 15:20: Injection, [place] 00 IV Push, Once PRN for shivers, [...] e 8-13 0.5 mL, l 15:20: Injection, [place] 00 IM, Once PRN for vomiting, first dose 02/26/20 10:20:00 CDT fentaNYL 2020-0 No 25 mcg = Memor ia 8-13 0.5 mL, l 14:50: Injection, [place] 00 IV, Once, first dose 02/26/20 9:50:00 CDT, stop date 02/26/20 9:50:00 CDT fentaNYL 2020-0 No 25 mcg = Memor ia 8-13 0.5 mL, l 14:50: Injection, [place] 00 IV, Once, first dose 02/26/20 9:50:00 CDT, stop date 02/26/20 9:50:00 CDT fentaNYL 2020-0 No 25 mcg = Memor ia 8-13 0.5 mL, l 14:16: Injection, [place] 00 IV, Once, first dose 02/26/20 9:16:00 [...] Misc 2020-0 No 1,000 mL, Memoria Medication 8- Soln-IV, l 13:23: IV, Once, first dose [...] gm, Memoria 8-13 Soln-IV, l 12:53: IV [place] 00 Piggyback, Once, first dose 02/26/20 7:53:00 CDT, stop date 02/26/20 7:53:00 CDT ondansetron 2020-0 No 4 mg = 2 Me moria 8-13 mL, l 12:53: Injection, [place] 00 IV, Once, first dose 02/26/20 7:53:00 [...] Me moria 8-13 mL, l 12:41: Injection, [place] 00 IV, Once, first dose 02/26/20 7:41:00 [...] ia 8-13 20 mL, l 12:41: Emulsion, Clinton 00 IV, Once, first dose 02/26/20 7:41:00 [...] Lev trupti 8-13 mL, l 12:34: Injection, [place] 00 IV, Once, first dose 02/26/20 7:34:00 [...] Mem oria 8-13 mL, l 12:25: Injection, [place] 00 IV, Once, first dose 02/26/20 7:25:00 CDT, stop date 02/26/20 7:25:00 CDT fentaNYL 2020-0 No 50 mcg = 1 Mem oria 8-13 mL, l 12:25: Injection, [place] 00 IV, Once, first dose 02/26/20 7:25:00 [...] 02-25 Injection, l IV Start 11:28: [facility] [[facility]] 00 us, Once PRN for other (see comment), first dose 02/26/20 6:28:00 CDT LR 1,000 mL 2020-0 No 1,000 mL, M emoria 8- IV, 30 l 11:28: mL/hr, start date 02/26/20 6:28:00 CDT, 2.14, m2 Lidocaine 2020-0 No 0.2 mL, Memor ia 2% 0.2 mL 02-25 Injection, l [facility] 00 us, Once PRN for other [...] tabs, l oral tablet 17:04: Oral, qHS, [place] 00 0 Refill(s), sleep levothyroxi 2020-0 Yes 25 mcg = 1 Memoria ne 25 mcg 8-05 tabs, l (0.025 mg) 17:04: Oral, Burak n oral tablet 00 Daily, 0 Refill(s), hypothyroi d rizatriptan 2020-0 Yes 5 mg = 1 Me moria 5 mg oral 8-05 tabs, l tablet 17:04: Oral, [place] 00 Daily, 0 Refill(s) pantoprazol 2020-0 Yes 40 mg = 1 M emoria e 40 mg 8-05 tabs, l oral 17:04: Oral, [place] delayed 00 Daily, 0 release Refill(s), tablet [...] oral 8-05 tabs, l tablet 17:04: Oral, [place] 00 Daily, 0 Refill(s) pantoprazol 2020-0 Yes 40 mg = 1 M emoria e 40 mg 8-05 tabs, l oral 17:04: Oral, [place] delayed 00 Daily, 0 release Refill(s), tablet [...] [place] 00 30 ea, 5 Refill(s), Pharmacy: [facility], 152.4, cm, 01/15/20 15:04:00 CDT, Height, 115.455, kg, 01/15/20 15:04:00 CDT, Weight rizatriptan 2019-0 Yes 5 mg = 1 Me moria 5 MG Oral 7-02 tab, PO, l Tablet 20:24: ONCE, PRN Burak n [Maxalt] 00 for migraine headache, # 9 tab, 1 Refill(s), Pharmacy: [facility], 152.4, cm, 01/15/20 15:04:00 CDT, Height, 115.455, kg, 01/15/20 15:04:00 CDT, Weight amitriptyli 2020-0 Yes = 1 tab, Me moria ne 75 mg 7-02 PO, l oral tablet 20:24: Bedtime, # [place] 00 30 ea, 5 Refill(s), Pharmacy: [facility], 152.4, cm, 01/15/20 15:04:00 CDT, Height, 115.455, kg, 01/15/20 15:04:00 CDT, Weight rizatriptan 2020-0 Yes 5 mg = 1 Me moria 5 MG Oral 7-02 tab, PO, l Tablet 20:24: ONCE, PRN [place]ak n [Maxalt] 00 for migraine headache, # 9 tab, 1 Refill(s), Pharmacy: [facility], 152.4, cm, 01/15/20 15:04:00 CDT, Height, 115.455, kg, 01/15/20 15:04:00 CDT, Weight rizatriptan 2020-0 Yes 5 mg = 1 Me moria 5 MG Oral 5-19 tab, PO, l Tablet 21:06: ONCE, PRN [place] n [Maxalt] 00 for migraine headache, # 9 tab, 1 Refill(s), Pharmacy: [facility] amitriptyli 2020-0 Yes = 1 tab, Me moria ne 75 mg 5-19 PO, l oral tablet 21:06: Bedtime, # [place] 00 30 ea, 1 Refill(s), Pharmacy: [facility] rizatriptan 2020-0 Yes 5 mg = 1 Me moria 5 MG Oral 5-19 tab, PO, l Tablet 21:06: ONCE, PRN [place]ak n [Maxalt] 00 for migraine headache, # 9 tab, 1 Refill(s), Pharmacy: [facility] amitriptyli 2020-0 Yes = 1 tab, Me moria ne 75 mg 5-19 PO, l oral tablet 21:06: Bedtime, # [place] 00 30 ea, 1 Refill(s), Pharmacy: [facility] loratadine 2018-0 Yes loratadine M ethodi (CLARITIN) 9-08 10 [...] TABLET BY MOUTH ONCE DAILY sod Yes [id number] 1{bottl Use 1 Unive rs chlor-bicar 9-08 e} Bottle in ity of b-squeez 00:00: each [place] bottle 00 nostril 2 Medical (NEILMED (two) Branch SINUS RINSE times COMPLETE) daily. Use pkdv in hot shower 1 hour before bedtime loratadine Yes [id number] 10mg Take 1 U nivers 10 mg 9-08 tablet by ity of tablet 00:00: mouth [place] 00 daily. Medical Branch sod Yes [id number] 1{bottl Use 1 Unive rs chlor-bicar 9-08 e} Bottle in ity of b-squeez 00:00: each [place] bottle 00 nostril 2 Medical (NEILMED (two) Branch SINUS RINSE times COMPLETE) daily. Use pkdv in hot shower 1 hour before bedtime loratadine Yes [id number] 10mg Take 1 U nivers 10 mg 9-08 tablet by ity of tablet 00:00: mouth [place] 00 daily. Medical Branch sod Yes [id number] 1{bottl Use 1 Unive rs chlor-bicar 9-08 e} Bottle in ity of b-squeez 00:00: each [place] bottle 00 nostril 2 Medical (NEILMED (two) Branch SINUS RINSE times COMPLETE) daily. Use pkdv in hot shower 1 hour before bedtime loratadine Yes [id number] 10mg Take 1 U nivers 10 mg 9-08 tablet by ity of tablet 00:00: mouth [place] 00 daily. Medical Branch sod Yes [id number] 1{bottl Use 1 Unive rs chlor-bicar 08 e} Bottle in ity of b-squeez 00:00: each [place] bottle 00 nostril 2 Medical (NEILMED (two) Branch SINUS RINSE times COMPLETE) daily. Use pkdv in hot shower 1 hour before bedtime loratadine Yes [id number] 10mg Take 1 U nivers 10 mg 9-08 tablet by ity of tablet 00:00: mouth [place] 00 daily. Medical Branch amitriptyli Yes 75 mg = 1 M emoria ne 75 mg 8-22 tab, PO, l oral tablet 18:27: Bedtime, # [place] 00 30 tab, 1 Refill(s), Pharmacy: [facility] amitriptyli Yes 75 mg = 1 M emoria ne 75 mg 8-22 tab, PO, l oral tablet 18:27: Bedtime, # [place] 00 30 tab, 1 Refill(s), Pharmacy: [facility] rizatriptan Yes 5 mg = 1 Me moria 5 MG Oral 8-02 tab, PO, l Tablet 20:24: ONCE, PRN Burak n [Maxalt] 09 for migraine headache, # 9 tab, 1 Refill(s), Pharmacy: [facility] rizatriptan Yes 5 mg = 1 Me moria 5 MG Oral 8-02 tab, PO, l Tablet 20:24: ONCE, PRN [place]ak n [Maxalt] 09 for migraine headache, # 9 tab, 1 Refill(s), Pharmacy: [facility] thiamine Yes 100 mg = 1 Mem oria 100 mg oral 8-02 tab, PO, l tablet 20:23: Daily, X [place] 17 30 day, # 30 tab, 3 Refill(s), Pharmacy: [facility] thiamine Yes 100 mg = 1 Mem oria 100 mg oral 8-02 tab, PO, l tablet 20:23: Daily, X [place] 17 30 day, # 30 tab, 3 Refill(s), Pharmacy: [facility] cyanocobala Yes 1,000 Memor ia min 1000 8-02 microgram l mcg 20:23: = 1 tab, [place] sublingual 13 SL, Daily, tablet # 30 tab, 2 Refill(s), Pharmacy: [facility] cyanocobala Yes 1,000 Memor ia min 1000 8-02 microgram l mcg 20:23: = 1 tab, [place] sublingual 13 SL, Daily, tablet # 30 tab, 2 Refill(s), Pharmacy: [facility] amitriptyli Yes 50 mg = 1 M emoria ne 50 mg 8-02 tab, PO, l oral tablet 20:23: Bedtime, # [place] 09 30 tab, 1 Refill(s), Pharmacy: [facility] amitriptyli Yes 50 mg = 1 M emoria ne 50 mg 8-02 tab, PO, l oral tablet 20:23: Bedtime, # [place] 09 30 tab, 1 Refill(s), Pharmacy: [facility] rizatriptan Yes rizatripta [facility] (MAXALT) 5 8-02 [...] NEEDED FOR HEADACHE MIGRAINE rizatriptan 2019-0 Yes rizatripta [facility] (MAXALT) 5 8-[address] [facility] tablet 00:00: tablet Hospit [facility] 00 TAKE 1 l TABLET BY MOUTH ONCE DAILY NEEDED FOR HEADACHE MIGRAINE rizatriptan 2018- No 5 mg = 1 Me moria 5 MG Oral 7-13 tab, PO, l Tablet 01:53: Daily, PRN Antonia nn [Maxalt] 00 for migraine headache, X 6 day, # 6 tab, 1 Refill(s), Pharmacy: [facility] amitriptyli 2018- No 50 mg = 1 M emoria ne 50 mg 7-13 tab, PO, l oral tablet 01:53: Bedtime, # [place] 00 30 tab, 1 Refill(s), Pharmacy: [facility] rizatriptan No 5 mg = 1 Me moria 5 MG Oral 7-13 tab, PO, l Tablet 01:53: Daily, PRN Antonia nn [Maxalt] 00 for migraine headache, X 6 day, # 6 tab, 1 Refill(s), Pharmacy: [facility] amitriptyli No 50 mg = 1 M emoria ne 50 mg 7-13 tab, PO, l oral tablet 01:53: Bedtime, # [place] 00 30 tab, 1 Refill(s), Pharmacy: [facility] frovatripta 2018-0 No 2.5 mg = 1 Memoria n 2.5 mg 6-27 tab, PO, l oral tablet 15:37: Daily, PRN [place] 00 for migraine headache, May repeat another dose at least 2 hours after the first dose, X 3 day, # 9 tab, 2 Refill(s), Pharmacy: [facility] frovatripta 2018-0 No 2.5 mg = 1 Memoria n 2.5 mg 6-27 tab, PO, l oral tablet 15:37: Daily, PRN [place] 00 for migraine headache, May repeat another dose at least 2 hours after the first dose, X 3 day, # 9 tab, 2 Refill(s), Pharmacy: [facility] eletriptan No See Memoria 40 MG Oral 6-25 Instructio l Tablet 23:35: ns, PO, [place] [Relpax] 00 Take 1-2 tabs orally at onset of migraine, may repeat dose once in 2 hours, X 3 day, # 6 tab, 1 Refill(s), Pharmacy: [facility] eletriptan No See Memoria 40 MG Oral 6-25 Instructio l Tablet 23:35: ns, PO, [place] [Relpax] 00 Take 1-2 tabs orally at onset of migraine, may repeat dose once in 2 hours, X 3 day, # 6 tab, 1 Refill(s), Pharmacy: [facility] amitriptyli Yes 25 mg = 1 M emoria ne 25 mg 6-11 tab, PO, l oral tablet 21:16: Bedtime, # [place] 00 30 tab, 3 Refill(s), Pharmacy: [facility] amitriptyli Yes 25 mg = 1 M emoria ne 25 mg 6-11 tab, PO, l oral tablet 21:16: Bedtime, # [place] 00 30 tab, 3 Refill(s), Pharmacy: [facility] cyanocobala Yes 1,000 Memor ia min 1000 6-07 microgram l mcg 19:39: = 1 tab, [place] sublingual 00 SL, Daily, tablet # 30 tab, 2 Refill(s), Pharmacy: [facility] cyanocobala Yes 1,000 Memor ia min 1000 6-07 microgram l mcg 19:39: = 1 tab, [place] sublingual 00 SL, Daily, tablet # 30 tab, 2 Refill(s), Pharmacy: [facility] thiamine Yes 100 mg = 1 Mem oria 100 mg oral 5-17 tab, PO, l tablet 18:13: Daily, X [place] 00 30 day, # 30 tab, 3 Refill(s), Pharmacy: [facility] thiamine Yes 100 mg = 1 Mem oria 100 mg oral 5-17 tab, PO, l tablet 18:13: Daily, X [place] 30 day, # 30 tab, 3 Refill(s), Pharmacy: [facility] amitriptyli 2019-0 Yes 10 mg = 1 M emoria ne 10 mg 5-10 tab, PO, l oral tablet 20:44: Bedtime, # [place] 00 30 tab, 3 Refill(s), Pharmacy: [facility] amitriptyli 2019-0 Yes 10 mg = 1 M emoria ne 10 mg 5-10 tab, PO, l oral tablet 20:44: Bedtime, # [place] 00 30 tab, 3 Refill(s), Pharmacy: [facility] gabapentin 2019-0 Yes 300 mg [...] Daily, # 30 tab, 0 Refill(s) levothyroxi 2019-0 Yes 50 Method i ne 5-[address] (SYNTHROID) 00:00: = 1 tab, Ho spita 50 mcg 00 PO, Daily, l tablet # 30 tab, 0 Refill(s) levothyroxi 2019-0 Yes 50 Method i ne 5-[address] (SYNTHROID) 00:00: = 1 tab, Ho spita 50 mcg 00 PO, Daily, l tablet # 30 tab, 0 Refill(s) levothyroxi 2019-0 Yes 50 Method i ne 5-[address] (SYNTHROID) 00:00: = 1 tab, Ho spita 50 mcg 00 PO, Daily, l tablet # 30 tab, 0 Refill(s) levothyroxi 2019-0 Yes 50 Method i ne 5-[address] (SYNTHROID) 00:00: = 1 tab, Ho spita 50 mcg 00 PO, Daily, l tablet # 30 tab, 0 Refill(s) levothyroxi 2018-0 Yes 50 Method i ne 5-[address] (SYNTHROID) 00:00: = 1 tab, Ho spita 50 mcg 00 PO, Daily, l tablet # 30 tab, 0 Refill(s) levothyroxi 2018-0 Yes 50 Method i ne 5-[address] (SYNTHROID) 00:00: = 1 tab, Ho spita 50 mcg 00 PO, Daily, l tablet # 30 tab, 0 Refill(s) levothyroxi 2018-0 Yes 50ug Take 1 Univ ers ne 50 mcg 4-30 tablet by ity o f tablet 00:00: mouth [place] 00 every Medical morning. Branch levothyroxi 2018-0 Yes 50ug Take 1 Univ ers ne 50 mcg 4-30 tablet by ity o f tablet 00:00: mouth [place] 00 every Medical morning. Branch levothyroxi 2018-0 Yes 50ug Take 1 Univ ers ne 50 mcg 4-30 tablet by ity o f tablet 00:00: mouth [place] 00 every Medical morning. Branch levothyroxi 2018-0 Yes 50ug Take 1 Univ [...] day Ho spita 00 l bisoprolol Yes [id number] 10mg Take 1 U nivers 10 mg 1-11 tablet by ity of tablet 00:00: mouth [place] 00 daily. Medical Branch cyclobenzap Yes [id number] 10mg Take 1 Univers rine 10 mg 1-11 tablet by ity of tablet 00:00: mouth at [place] 00 bedtime. Medical Branch bisoprolol Yes [id number] 10mg Take 1 U nivers 10 mg 1-11 tablet by ity of tablet 00:00: mouth [place] 00 daily. Medical Branch cyclobenzap Yes [id number] 10mg Take 1 Univers rine 10 mg 1-11 tablet by ity of tablet 00:00: mouth at [place] 00 bedtime. Medical Branch bisoprolol Yes [id number] 10mg Take 1 U nivers 10 mg 1-11 tablet by ity of tablet 00:00: mouth [place] 00 daily. [facility] Branch cyclobenzap Yes [id number] 10mg Take 1 Univers rine 10 mg 1-11 tablet by ity of tablet 00:00: mouth at [place] 00 bedtime. Medical Branch bisoprolol Yes [id number] 10mg Take 1 U nivers 10 mg 1-11 tablet by ity of tablet 00:00: mouth [place] 00 daily. [facility] Branch cyclobenzap Yes [id number] 10mg Take 1 Univers rine 10 mg 1-11 tablet by ity of tablet 00:00: mouth at [place] [id number] bedtime. Medical Branch albuterol 2015-07 Yes 3 [...] Medical Branch fluticasone Yes fluticason [facility] propionate [address] (FLONASE) 00:00: propionate Ho spita [...] [place] on nasal 00 Medical spray Branch hydrALAZINE hydrALAZINE No hydrALAZIN HCl HCl E HCl Valsartan-h Valsartan-h No Valsartan- ydroCHLOROt ydroCHLOROt hydroCHLOR hiazide hiazide Othiazide Rizatriptan Rizatriptan No 1{table QD Rizatripta Benzoate 5 Benzoate 5 t} n Benzoate MG MG 5 MG Pantoprazol Pantoprazol No Pantoprazo e Sodium e Sodium le Sodium Bisoprolol Bisoprolol No 1{table QD Bisoprolol Fumarate 10 Fumarate 10 t} Fumarate MG MG 10 MG Pantoprazol Pantoprazol No 1{table QD Pantoprazo e Sodium 40 e Sodium 40 t} le Sodium MG MG 40 MG Albuterol Albuterol No 3{ml_as Albuterol Sulfate Sulfate _needed Sulfate (2.5 (2.5 } (2.5 MG/3ML) MG/3ML) MG/3ML) 0.083% 0.083% 0.083% Amitriptyli Amitriptyli No Amitriptyl ne HCl ne HCl ine HCl Albuterol Albuterol No Albuterol Sulfate HFA Sulfate HFA Sulfate HFA medroxyPROG medroxyPROG No medroxyPRO ESTERone ESTERone GESTERone Acetate Acetate Acetate Rizatriptan Rizatriptan No Rizatripta Benzoate Benzoate n Benzoate hydrOXYzine hydrOXYzine No hydrOXYzin HCl 10 MG HCl 10 MG e HCl 10 MG Pantoprazol Pantoprazol No Pantoprazo e Sodium e Sodium le Sodium medroxyPROG medroxyPROG No 1{table QD medroxyPRO ESTERone ESTERone t_with_ GESTERone Acetate 10 Acetate 10 food} Acetate 10 MG MG MG Bisoprolol Bisoprolol No 1{table QD Bisoprolol Fumarate 10 Fumarate 10 t} Fumarate MG MG 10 MG hydrALAZINE hydrALAZINE No hydrALAZIN HCl HCl E HCl Valsartan-h Valsartan-h No 1{table QD Valsartan- ydroCHLOROt ydroCHLOROt t} hydroCHLOR hiazide hiazide Othiazide 80-12.5 MG 80-12.5 MG 80-12.5 MG Albuterol Albuterol No 1{puff_ 6xD Albuterol Sulfate HFA Sulfate HFA as_need Sulfate 108 (90 108 (90 ed} HFA 108 Base) Base) (90 Base) MCG/ACT MCG/ACT MCG/ACT Amitriptyli Amitriptyli No Amitriptyl ne HCl ne HCl ine HCl Rizatriptan Rizatriptan No 1{table QD Rizatripta Benzoate 5 Benzoate 5 t} n Benzoate MG MG 5 MG Albuterol Albuterol No Albuterol Sulfate HFA Sulfate HFA Sulfate HFA Amitriptyli Amitriptyli No 1{table QD Amitriptyl ne HCl 75 ne HCl 75 t_at_be ine HCl 75 MG MG dtime} MG Pantoprazol Pantoprazol No 1{table QD Pantoprazo e Sodium 40 e Sodium 40 t} le Sodium MG MG 40 MG Valsartan-h Valsartan-h No Valsartan- ydroCHLOROt ydroCHLOROt hydroCHLOR hiazide hiazide Othiazide Albuterol Albuterol No 3{ml_as Albuterol Sulfate Sulfate _needed Sulfate (2.5 (2.5 } (2.5 MG/3ML) MG/3ML) MG/3ML) 0.083% 0.083% 0.083% medroxyPROG medroxyPROG No medroxyPRO ESTERone ESTERone GESTERone Acetate Acetate Acetate Albuterol Albuterol No 1{puff_ 6xD Albuterol Sulfate HFA Sulfate HFA as_need Sulfate 108 (90 108 (90 ed} HFA 108 Base) Base) (90 Base) MCG/ACT MCG/ACT MCG/ACT Albuterol Albuterol No 3{ml_as Albuterol Sulfate Sulfate _needed Sulfate (2.5 (2.5 } (2.5 MG/3ML) MG/3ML) MG/3ML) 0.083% 0.083% 0.083% Amitriptyli Amitriptyli No Amitriptyl ne HCl ne HCl ine HCl Albuterol Albuterol No Albuterol Sulfate HFA Sulfate HFA Sulfate HFA Valsartan-h Valsartan-h No Valsartan- ydroCHLOROt ydroCHLOROt hydroCHLOR hiazide hiazide Othiazide medroxyPROG medroxyPROG No 1{table QD medroxyPRO ESTERone ESTERone t_with_ GESTERone Acetate 10 Acetate 10 food} Acetate 10 MG MG MG Rizatriptan Rizatriptan No 1{table QD Rizatripta Benzoate 5 Benzoate 5 t} n Benzoate MG MG 5 MG Amitriptyli Amitriptyli No 1{table QD Amitriptyl ne HCl 75 ne HCl 75 t_at_be ine HCl 75 MG MG dtime} MG Rizatriptan Rizatriptan No Rizatripta Benzoate Benzoate n Benzoate hydrOXYzine hydrOXYzine No hydrOXYzin HCl 10 MG HCl 10 MG e HCl 10 MG Pantoprazol Pantoprazol No 1{table QD Pantoprazo e Sodium 40 e Sodium 40 t} le Sodium MG MG 40 MG Pantoprazol Pantoprazol No Pantoprazo e Sodium e Sodium le Sodium medroxyPROG medroxyPROG No medroxyPRO ESTERone ESTERone GESTERone Acetate Acetate Acetate hydrALAZINE hydrALAZINE No hydrALAZIN HCl HCl E HCl Bisoprolol Bisoprolol No 1{table QD Bisoprolol Fumarate 10 Fumarate 10 t} Fumarate MG MG 10 MG Valsartan-h Valsartan-h No 1{table QD Valsartan- ydroCHLOROt ydroCHLOROt t} hydroCHLOR hiazide hiazide Othiazide 80-12.5 MG 80-12.5 MG 80-12.5 MG Pantoprazol Pantoprazol No 1{table QD Pantoprazo e Sodium 40 e Sodium 40 t} le Sodium MG MG 40 MG Rizatriptan Rizatriptan No 1{table QD Rizatripta Benzoate 5 Benzoate 5 t} n Benzoate MG MG 5 MG hydrOXYzine hydrOXYzine No hydrOXYzin HCl 10 MG HCl 10 MG e HCl 10 MG medroxyPROG medroxyPROG No 1{table QD medroxyPRO ESTERone ESTERone t_with_ GESTERone Acetate 10 Acetate 10 food} Acetate 10 MG MG MG medroxyPROG medroxyPROG No medroxyPRO ESTERone ESTERone GESTERone Acetate Acetate Acetate Amitriptyli Amitriptyli No Amitriptyl ne HCl ne HCl ine HCl Amitriptyli Amitriptyli No 1{table QD Amitriptyl ne HCl 75 ne HCl 75 t_at_be ine HCl 75 MG MG dtime} MG Pantoprazol Pantoprazol No Pantoprazo e Sodium e Sodium le Sodium Albuterol Albuterol No 1{puff_ 6xD Albuterol Sulfate HFA Sulfate HFA as_need Sulfate 108 (90 108 (90 ed} HFA 108 Base) Base) (90 Base) MCG/ACT MCG/ACT MCG/ACT Albuterol Albuterol No 3{ml_as Albuterol Sulfate Sulfate _needed Sulfate (2.5 (2.5 } (2.5 MG/3ML) MG/3ML) MG/3ML) 0.083% 0.083% 0.083% hydrALAZINE hydrALAZINE No hydrALAZIN HCl HCl E HCl Valsartan-h Valsartan-h No 1{table QD Valsartan- ydroCHLOROt ydroCHLOROt t} hydroCHLOR hiazide hiazide Othiazide 80-12.5 MG 80-12.5 MG 80-12.5 MG Valsartan-h Valsartan-h No Valsartan- ydroCHLOROt ydroCHLOROt hydroCHLOR hiazide hiazide Othiazide Bisoprolol Bisoprolol No 1{table QD Bisoprolol Fumarate 10 Fumarate 10 t} Fumarate MG MG 10 MG Rizatriptan Rizatriptan No Rizatripta Benzoate Benzoate n Benzoate Albuterol Albuterol No Albuterol Sulfate HFA Sulfate HFA Sulfate HFA hydrOXYzine hydrOXYzine No hydrOXYzin HCl 10 MG HCl 10 MG e HCl 10 MG Albuterol Albuterol No Albuterol Sulfate HFA Sulfate HFA Sulfate HFA Amitriptyli Amitriptyli No Amitriptyl ne HCl ne HCl ine HCl Albuterol Albuterol No 1{puff_ 6xD Albuterol Sulfate HFA Sulfate HFA as_need Sulfate 108 (90 108 (90 ed} HFA 108 Base) Base) (90 Base) MCG/ACT MCG/ACT MCG/ACT Rizatriptan Rizatriptan No 1{table QD Rizatripta Benzoate 5 Benzoate 5 t} n Benzoate MG MG 5 MG Bisoprolol Bisoprolol No 1{table QD Bisoprolol Fumarate 10 Fumarate 10 t} Fumarate MG MG 10 MG hydrALAZINE hydrALAZINE No hydrALAZIN HCl HCl E HCl medroxyPROG medroxyPROG No medroxyPRO ESTERone ESTERone GESTERone Acetate Acetate Acetate Valsartan-h Valsartan-h No 1{table QD Valsartan- ydroCHLOROt ydroCHLOROt t} hydroCHLOR hiazide hiazide Othiazide 80-12.5 MG 80-12.5 MG 80-12.5 MG Albuterol Albuterol No 3{ml_as Albuterol Sulfate Sulfate _needed Sulfate (2.5 (2.5 } (2.5 MG/3ML) MG/3ML) MG/3ML) 0.083% 0.083% 0.083% Pantoprazol Pantoprazol No Pantoprazo e Sodium e Sodium le Sodium Valsartan-h Valsartan-h No Valsartan- ydroCHLOROt ydroCHLOROt hydroCHLOR hiazide hiazide Othiazide Rizatriptan Rizatriptan No Rizatripta Benzoate Benzoate n Benzoate Amitriptyli Amitriptyli No 1{table QD Amitriptyl ne HCl 75 ne HCl 75 t_at_be ine HCl 75 MG MG dtime} MG medroxyPROG medroxyPROG No 1{table QD medroxyPRO ESTERone ESTERone t_with_ GESTERone Acetate 10 Acetate 10 food} Acetate 10 MG MG MG Pantoprazol Pantoprazol No 1{table QD Pantoprazo e Sodium 40 e Sodium 40 t} le Sodium MG MG 40 MG Amitriptyli Amitriptyli No Amitriptyl ne HCl ne HCl ine HCl medroxyPROG medroxyPROG No 1{table QD medroxyPRO ESTERone ESTERone t_with_ GESTERone Acetate 10 Acetate 10 food} Acetate 10 MG MG MG Valsartan-h Valsartan-h No 1{table QD Valsartan- ydroCHLOROt ydroCHLOROt t} hydroCHLOR hiazide hiazide Othiazide 80-12.5 MG 80-12.5 MG 80-12.5 MG Rizatriptan Rizatriptan No 1{table QD Rizatripta Benzoate 5 Benzoate 5 t} n Benzoate MG MG 5 MG Pantoprazol Pantoprazol No Pantoprazo e Sodium e Sodium le Sodium hydrALAZINE hydrALAZINE No hydrALAZIN HCl HCl E HCl Bisoprolol Bisoprolol No 1{table QD Bisoprolol Fumarate 10 Fumarate 10 t} Fumarate MG MG 10 MG Valsartan-h Valsartan-h No Valsartan- ydroCHLOROt ydroCHLOROt hydroCHLOR hiazide hiazide Othiazide Amitriptyli Amitriptyli No 1{table QD Amitriptyl ne HCl 75 ne HCl 75 t_at_be ine HCl 75 MG MG dtime} MG Rizatriptan Rizatriptan No Rizatripta Benzoate Benzoate n Benzoate Albuterol Albuterol No Albuterol Sulfate HFA Sulfate HFA Sulfate HFA Albuterol Albuterol No 3{ml_as Albuterol Sulfate Sulfate _needed Sulfate (2.5 (2.5 } (2.5 MG/3ML) MG/3ML) MG/3ML) 0.083% 0.083% 0.083% Pantoprazol Pantoprazol No 1{table QD Pantoprazo e Sodium 40 e Sodium 40 t} le Sodium MG MG 40 MG medroxyPROG medroxyPROG No medroxyPRO ESTERone ESTERone GESTERone Acetate Acetate Acetate Albuterol Albuterol No 1{puff_ 6xD Albuterol Sulfate HFA Sulfate HFA as_need Sulfate 108 (90 108 (90 ed} HFA 108 Base) Base) (90 Base) MCG/ACT MCG/ACT MCG/ACT hydrOXYzine hydrOXYzine No hydrOXYzin HCl 10 MG HCl 10 MG e HCl 10 MG Amitriptyli Amitriptyli No Amitriptyl ne HCl ne HCl ine HCl medroxyPROG medroxyPROG No 1{table QD medroxyPRO ESTERone ESTERone t_with_ GESTERone Acetate 10 Acetate 10 food} Acetate 10 MG MG MG Levothyroxi Levothyroxi Yes M.D. U T ne Sodium ne Sodium Physi ci TABS TABS ans Valsartan-h Valsartan-h No 1{table QD Valsartan- ydroCHLOROt ydroCHLOROt t} hydroCHLOR hiazide hiazide Othiazide 80-12.5 MG 80-12.5 MG 80-12.5 MG Meloxicam Meloxicam Yes M.D. UT TABS TABS Physici ans Rizatriptan Rizatriptan No 1{table QD Rizatripta Benzoate 5 Benzoate 5 t} n Benzoate MG MG 5 MG Amitriptyli Amitriptyli Yes M.D. U T ne HCl TABS ne HCl TABS P hysici ans Pantoprazol Pantoprazol No Pantoprazo e Sodium e Sodium le Sodium hydrALAZINE hydrALAZINE No hydrALAZIN HCl HCl E HCl Bisoprolol Bisoprolol No 1{table QD Bisoprolol Fumarate 10 Fumarate 10 t} Fumarate MG MG 10 MG Valsartan-h Valsartan-h No Valsartan- ydroCHLOROt ydroCHLOROt hydroCHLOR hiazide hiazide Othiazide Amitriptyli Amitriptyli No 1{table QD Amitriptyl ne HCl 75 ne HCl 75 t_at_be ine HCl 75 MG MG dtime} MG Rizatriptan Rizatriptan No Rizatripta Benzoate Benzoate n Benzoate Albuterol Albuterol No Albuterol Sulfate HFA Sulfate HFA Sulfate HFA Albuterol Albuterol No 3{ml_as Albuterol Sulfate Sulfate _needed Sulfate (2.5 (2.5 } (2.5 MG/3ML) MG/3ML) MG/3ML) 0.083% 0.083% 0.083% Pantoprazol Pantoprazol No 1{table QD Pantoprazo e Sodium 40 e Sodium 40 t} le Sodium MG MG 40 MG medroxyPROG medroxyPROG No medroxyPRO ESTERone ESTERone GESTERone Acetate Acetate Acetate Albuterol Albuterol No 1{puff_ 6xD Albuterol Sulfate HFA Sulfate HFA as_need Sulfate 108 (90 108 (90 ed} HFA 108 Base) Base) (90 Base) MCG/ACT MCG/ACT MCG/ACT hydrOXYzine hydrOXYzine No hydrOXYzin HCl 10 MG HCl 10 MG e HCl 10 MG Amitriptyli Amitriptyli No Amitriptyl ne HCl ne HCl ine HCl medroxyPROG medroxyPROG No 1{table QD medroxyPRO ESTERone ESTERone t_with_ GESTERone Acetate 10 Acetate 10 food} Acetate 10 MG MG MG Valsartan-h Valsartan-h No 1{table QD Valsartan- ydroCHLOROt ydroCHLOROt t} hydroCHLOR hiazide hiazide Othiazide 80-12.5 MG 80-12.5 MG 80-12.5 MG Rizatriptan Rizatriptan No 1{table QD Rizatripta Benzoate 5 Benzoate 5 t} n Benzoate MG MG 5 MG Pantoprazol Pantoprazol No Pantoprazo e Sodium e Sodium le Sodium hydrALAZINE hydrALAZINE No hydrALAZIN HCl HCl E HCl Bisoprolol Bisoprolol No 1{table QD Bisoprolol Fumarate 10 Fumarate 10 t} Fumarate MG MG 10 MG Valsartan-h Valsartan-h No Valsartan- ydroCHLOROt ydroCHLOROt hydroCHLOR hiazide hiazide Othiazide Amitriptyli Amitriptyli No 1{table QD Amitriptyl ne HCl 75 ne HCl 75 t_at_be ine HCl 75 MG MG dtime} MG Rizatriptan Rizatriptan No Rizatripta Benzoate Benzoate n Benzoate Albuterol Albuterol No Albuterol Sulfate HFA Sulfate HFA Sulfate HFA Albuterol Albuterol No 3{ml_as Albuterol Sulfate Sulfate _needed Sulfate (2.5 (2.5 } (2.5 MG/3ML) MG/3ML) MG/3ML) 0.083% 0.083% 0.083% Pantoprazol Pantoprazol No 1{table QD Pantoprazo e Sodium 40 e Sodium 40 t} le Sodium MG MG 40 MG medroxyPROG medroxyPROG No medroxyPRO ESTERone ESTERone GESTERone Acetate Acetate Acetate Albuterol Albuterol No 1{puff_ 6xD Albuterol Sulfate HFA Sulfate HFA as_need Sulfate 108 (90 108 (90 ed} HFA 108 Base) Base) (90 Base) MCG/ACT MCG/ACT MCG/ACT hydrOXYzine hydrOXYzine No hydrOXYzin HCl 10 MG HCl 10 MG e HCl 10 MG Albuterol Albuterol No 3{ml_as Albuterol Sulfate Sulfate _needed Sulfate (2.5 (2.5 } (2.5 MG/3ML) MG/3ML) MG/3ML) 0.083% 0.083% 0.083% Valsartan-h Valsartan-h No 1{table QD Valsartan- ydroCHLOROt ydroCHLOROt t} hydroCHLOR hiazide hiazide Othiazide 80-12.5 MG 80-12.5 MG 80-12.5 MG Pantoprazol Pantoprazol No 1{table QD Pantoprazo e Sodium 40 e Sodium 40 t} le Sodium MG MG 40 MG Amitriptyli Amitriptyli No 1{table QD Amitriptyl ne HCl 75 ne HCl 75 t_at_be ine HCl 75 MG MG dtime} MG Albuterol Albuterol No 1{puff_ 6xD Albuterol Sulfate HFA Sulfate HFA as_need Sulfate 108 (90 108 (90 ed} HFA 108 Base) Base) (90 Base) MCG/ACT MCG/ACT MCG/ACT medroxyPROG medroxyPROG No 1{table QD medroxyPRO ESTERone ESTERone t_with_ GESTERone Acetate 10 Acetate 10 food} Acetate 10 MG MG MG Rizatriptan Rizatriptan No 1{table QD Rizatripta Benzoate 5 Benzoate 5 t} n Benzoate MG MG 5 MG Albuterol Albuterol No 3{ml_as Albuterol Sulfate Sulfate _needed Sulfate (2.5 (2.5 } (2.5 MG/3ML) MG/3ML) MG/3ML) 0.083% 0.083% 0.083% Valsartan-h Valsartan-h No 1{table QD Valsartan- ydroCHLOROt ydroCHLOROt t} hydroCHLOR hiazide hiazide Othiazide 80-12.5 MG 80-12.5 MG 80-12.5 MG Pantoprazol Pantoprazol No 1{table QD Pantoprazo e Sodium 40 e Sodium 40 t} le Sodium MG MG 40 MG Amitriptyli Amitriptyli No 1{table QD Amitriptyl ne HCl 75 ne HCl 75 t_at_be ine HCl 75 MG MG dtime} MG Albuterol Albuterol No 1{puff_ 6xD Albuterol Sulfate HFA Sulfate HFA as_need Sulfate 108 (90 108 (90 ed} HFA 108 Base) Base) (90 Base) MCG/ACT MCG/ACT MCG/ACT medroxyPROG medroxyPROG No 1{table QD medroxyPRO ESTERone ESTERone t_with_ GESTERone Acetate 10 Acetate 10 food} Acetate 10 MG MG MG Rizatriptan Rizatriptan No 1{table QD Rizatripta Benzoate 5 Benzoate 5 t} n Benzoate MG MG 5 MG Albuterol Albuterol No 3{ml_as Albuterol Sulfate Sulfate _needed Sulfate (2.5 (2.5 } (2.5 MG/3ML) MG/3ML) MG/3ML) 0.083% 0.083% 0.083% Valsartan-h Valsartan-h No 1{table QD Valsartan- ydroCHLOROt ydroCHLOROt t} hydroCHLOR hiazide hiazide Othiazide 80-12.5 MG 80-12.5 MG 80-12.5 MG Pantoprazol Pantoprazol No 1{table QD Pantoprazo e Sodium 40 e Sodium 40 t} le Sodium MG MG 40 MG Amitriptyli Amitriptyli No 1{table QD Amitriptyl ne HCl 75 ne HCl 75 t_at_be ine HCl 75 MG MG dtime} MG Albuterol Albuterol No 1{puff_ 6xD Albuterol Sulfate HFA Sulfate HFA as_need Sulfate 108 (90 108 (90 ed} HFA 108 Base) Base) (90 Base) MCG/ACT MCG/ACT MCG/ACT medroxyPROG medroxyPROG No 1{table QD medroxyPRO ESTERone ESTERone t_with_ GESTERone Acetate 10 Acetate 10 food} Acetate 10 MG MG MG Rizatriptan Rizatriptan No 1{table QD Rizatripta Benzoate 5 Benzoate 5 t} n Benzoate MG MG 5 MG Albuterol Albuterol No 3{ml_as Albuterol Sulfate Sulfate _needed Sulfate (2.5 (2.5 } (2.5 MG/3ML) MG/3ML) MG/3ML) 0.083% 0.083% 0.083% Valsartan-h Valsartan-h No 1{table QD Valsartan- ydroCHLOROt ydroCHLOROt t} hydroCHLOR hiazide hiazide Othiazide 80-12.5 MG 80-12.5 MG 80-12.5 MG Pantoprazol Pantoprazol No 1{table QD Pantoprazo e Sodium 40 e Sodium 40 t} le Sodium MG MG 40 MG Amitriptyli Amitriptyli No 1{table QD Amitriptyl ne HCl 75 ne HCl 75 t_at_be ine HCl 75 MG MG dtime} MG Albuterol Albuterol No 1{puff_ 6xD Albuterol Sulfate HFA Sulfate HFA as_need Sulfate 108 (90 108 (90 ed} HFA 108 Base) Base) (90 Base) MCG/ACT MCG/ACT MCG/ACT medroxyPROG medroxyPROG No 1{table QD medroxyPRO ESTERone ESTERone t_with_ GESTERone Acetate 10 Acetate 10 food} Acetate 10 MG MG MG Rizatriptan Rizatriptan No 1{table QD Rizatripta Benzoate 5 Benzoate 5 t} n Benzoate MG MG 5 MG Albuterol Albuterol No 1{puff_ 6xD Albuterol Sulfate HFA Sulfate HFA as_need Sulfate 108 (90 108 (90 ed} HFA 108 Base) Base) (90 Base) MCG/ACT MCG/ACT MCG/ACT Amitriptyli Amitriptyli No 1{table QD Amitriptyl ne HCl 75 ne HCl 75 t_at_be ine HCl 75 MG MG dtime} MG Pantoprazol Pantoprazol No 1{table QD Pantoprazo e Sodium 40 e Sodium 40 t} le Sodium MG MG 40 MG medroxyPROG medroxyPROG No 1{table QD medroxyPRO ESTERone ESTERone t_with_ GESTERone Acetate 10 Acetate 10 food} Acetate 10 MG MG MG Rizatriptan Rizatriptan No 1{table QD Rizatripta Benzoate 5 Benzoate 5 t} n Benzoate MG MG 5 MG Albuterol Albuterol No 3{ml_as Albuterol Sulfate Sulfate _needed Sulfate (2.5 (2.5 } (2.5 MG/3ML) MG/3ML) MG/3ML) 0.083% 0.083% 0.083% Cyclobenzap Cyclobenzap No Cyclobenza rine HCl 10 rine HCl 10 dex HCl MG MG 10 MG Levothyroxi Levothyroxi No QD Levothyrox ne Sodium ne Sodium ine Sodium 150 MCG 150 MCG 150 MCG Valsartan-h Valsartan-h No 1{table QD Valsartan- ydroCHLOROt ydroCHLOROt t} hydroCHLOR hiazide hiazide Othiazide 80-12.5 MG 80-12.5 MG 80-12.5 MG Albuterol Albuterol No 1{puff_ 6xD Albuterol Sulfate HFA Sulfate HFA as_need Sulfate 108 (90 108 (90 ed} HFA 108 Base) Base) (90 Base) MCG/ACT MCG/ACT MCG/ACT Amitriptyli Amitriptyli No 1{table QD Amitriptyl ne HCl 75 ne HCl 75 t_at_be ine HCl 75 MG MG dtime} MG Pantoprazol Pantoprazol No 1{table QD Pantoprazo e Sodium 40 e Sodium 40 t} le Sodium MG MG 40 MG medroxyPROG medroxyPROG No 1{table QD medroxyPRO ESTERone ESTERone t_with_ GESTERone Acetate 10 Acetate 10 food} Acetate 10 MG MG MG Rizatriptan Rizatriptan No 1{table QD Rizatripta Benzoate 5 Benzoate 5 t} n Benzoate MG MG 5 MG Albuterol Albuterol No 3{ml_as Albuterol Sulfate Sulfate _needed Sulfate (2.5 (2.5 } (2.5 MG/3ML) MG/3ML) MG/3ML) 0.083% 0.083% 0.083% Cyclobenzap Cyclobenzap No Cyclobenza rine HCl 10 rine HCl 10 dex HCl MG MG 10 MG Levothyroxi Levothyroxi No QD Levothyrox ne Sodium ne Sodium ine Sodium 150 MCG 150 MCG 150 MCG Valsartan-h Valsartan-h No 1{table QD Valsartan- ydroCHLOROt ydroCHLOROt t} hydroCHLOR hiazide hiazide Othiazide 80-12.5 MG 80-12.5 MG 80-12.5 MG Albuterol Albuterol No 1{puff_ 6xD Albuterol Sulfate HFA Sulfate HFA as_need Sulfate 108 (90 108 (90 ed} HFA 108 Base) Base) (90 Base) MCG/ACT MCG/ACT MCG/ACT Amitriptyli Amitriptyli No 1{table QD Amitriptyl ne HCl 75 ne HCl 75 t_at_be ine HCl 75 MG MG dtime} MG Pantoprazol Pantoprazol No 1{table QD Pantoprazo e Sodium 40 e Sodium 40 t} le Sodium MG MG 40 MG medroxyPROG medroxyPROG No 1{table QD medroxyPRO ESTERone ESTERone t_with_ GESTERone Acetate 10 Acetate 10 food} Acetate 10 MG MG MG Rizatriptan Rizatriptan No 1{table QD Rizatripta Benzoate 5 Benzoate 5 t} n Benzoate MG MG 5 MG Albuterol Albuterol No 3{ml_as Albuterol Sulfate Sulfate _needed Sulfate (2.5 (2.5 } (2.5 MG/3ML) MG/3ML) MG/3ML) 0.083% 0.083% 0.083% Cyclobenzap Cyclobenzap No Cyclobenza rine HCl 10 rine HCl 10 dex HCl MG MG 10 MG Levothyroxi Levothyroxi No QD Levothyrox ne Sodium ne Sodium ine Sodium 150 MCG 150 MCG 150 MCG Valsartan-h Valsartan-h No 1{table QD Valsartan- ydroCHLOROt ydroCHLOROt t} hydroCHLOR hiazide hiazide Othiazide 80-12.5 MG 80-12.5 MG 80-12.5 MG Rizatriptan Rizatriptan No Rizatripta Benzoate Benzoate n Benzoate hydrOXYzine hydrOXYzine No hydrOXYzin HCl 10 MG HCl 10 MG e HCl 10 MG Amitriptyli Amitriptyli No 1{table QD Amitriptyl ne HCl 75 ne HCl 75 t_at_be ine HCl 75 MG MG dtime} MG medroxyPROG medroxyPROG No 1{table QD medroxyPRO ESTERone ESTERone t_with_ GESTERone Acetate 10 Acetate 10 food} Acetate 10 MG MG MG Valsartan-h Valsartan-h No 1{table QD Valsartan- ydroCHLOROt ydroCHLOROt t} hydroCHLOR hiazide hiazide Othiazide 80-12.5 MG 80-12.5 MG 80-12.5 MG Albuterol Albuterol No 1{puff_ 6xD Albuterol Sulfate HFA Sulfate HFA as_need Sulfate 108 (90 108 (90 ed} HFA 108 Base) Base) (90 Base) MCG/ACT MCG/ACT MCG/ACT hydrALAZINE hydrALAZINE No hydrALAZIN HCl HCl E HCl Valsartan-h Valsartan-h No Valsartan- ydroCHLOROt ydroCHLOROt hydroCHLOR hiazide hiazide Othiazide Rizatriptan Rizatriptan No 1{table QD Rizatripta Benzoate 5 Benzoate 5 t} n Benzoate MG MG 5 MG Pantoprazol Pantoprazol No Pantoprazo e Sodium e Sodium le Sodium Bisoprolol Bisoprolol No 1{table QD Bisoprolol Fumarate 10 Fumarate 10 t} Fumarate MG MG 10 MG Pantoprazol Pantoprazol No 1{table QD Pantoprazo e Sodium 40 e Sodium 40 t} le Sodium MG MG 40 MG Albuterol Albuterol No 3{ml_as Albuterol Sulfate Sulfate _needed Sulfate (2.5 (2.5 } (2.5 MG/3ML) MG/3ML) MG/3ML) 0.083% 0.083% 0.083% Amitriptyli Amitriptyli No Amitriptyl ne HCl ne HCl ine HCl Albuterol Albuterol No Albuterol Sulfate HFA Sulfate HFA Sulfate HFA medroxyPROG medroxyPROG No medroxyPRO ESTERone ESTERone GESTERone Acetate Acetate Acetate Rizatriptan Rizatriptan No Rizatripta Benzoate Benzoate n Benzoate hydrOXYzine hydrOXYzine No hydrOXYzin HCl 10 MG HCl 10 MG e HCl 10 MG Amitriptyli Amitriptyli No 1{table QD Amitriptyl ne HCl 75 ne HCl 75 t_at_be ine HCl 75 MG MG dtime} MG medroxyPROG medroxyPROG No 1{table QD medroxyPRO ESTERone ESTERone t_with_ GESTERone Acetate 10 Acetate 10 food} Acetate 10 MG MG MG Valsartan-h Valsartan-h No 1{table QD Valsartan- ydroCHLOROt ydroCHLOROt t} hydroCHLOR hiazide hiazide Othiazide 80-12.5 MG 80-12.5 MG 80-12.5 MG Albuterol Albuterol No 1{puff_ 6xD Albuterol Sulfate HFA Sulfate HFA as_need Sulfate 108 (90 108 (90 ed} HFA 108 Base) Base) (90 Base) MCG/ACT MCG/ACT MCG/ACT Immunizations Ordered Filled Immunization Date Status Comments Sourc e Immunization Name Name Covid-19 Vaccine 2021-03-31 Completed Rosi esposito (Moderna), 00:00:00 Mrna-lnp, [employer], Pf, 100 Mcg/0.5ml,IM Covid-19 Vaccine 2021-03-02 Completed Rosi esposito (Moderna), 00:00:00 Mrna-lnp, [employer], Pf, 100 Mcg/0.5ml,IM Influenza Virus 2016-07-24 Completed Rosi solano Vaccine, No 00:00:00 Preserv, age 6 months and up Tdap- (Boostrix, 2016-07-24 Completed Rosi esposito Adacel) 00:00:00 TDAP 2016-07-24 Completed [facility]00 [facility] Influenza Virus 2016-07-24 Completed [facility] Quad IM 3+ 00:00:00 [facility] TDAP 2016-07-24 Completed [facility] 00:00:00 [facility] Influenza Virus 2016-07-24 Completed [facility] Vaccine Quad IM 3+ 00:00:00 [facility] TDAP 2016-07-24 Completed [facility] 00:00:00 [facility] Influenza Virus 2016-07-24 Completed [facility] Vaccine Quad IM 3+ 00:00:00 [facility] TDAP 2016-07-24 Completed [facility] 00:00:00 [facility] Influenza Virus 2016-07-24 Completed [facility] Vaccine Quad IM 3+ 00:00:00 [facility] Tdap- (Boostrix, 2010-01-18 Completed Rosi esposito Adacel) 00:00:00 Vital Signs Vital Name Observation Time Observation Value Comments Source Systolic blood 2021-10-10 20:19:00 141 mm[Hg] Univer sity of pressure [facility] Diastolic blood 2021-10-10 20:19:00 98 mm[Hg] [facility] Heart rate 2021-10-10 20:19:00 109 /min [facility] Body temperature 2021-10-10 20:19:00 36.94 Sole [facility] Respiratory rate 2021-10-10 20:19:00 18 /min [facility] Body height 2021-10-10 20:19:00 160 cm [facility] Body weight 2021-10-10 20:19:00 115.667 kg [facility] BMI 2021-10-10 20:19:00 45.17 kg/m2 [facility] Oxygen saturation in 2021-10-10 20:19:00 97 /min [facility] blood by [facility] Pulse oximetry Branch Systolic blood 2021-04-28 14:43:00 [...] ballardbold BMI 2021-04-28 14:43:00 45.91 kg/m2 Rosi ballardboshabnam blood pressure 2021-03-30 10:10:00 121 mm[Hg] Common [facility] - systolic [facility] blood pressure 2021-03-30 10:10:00 73 mm[Hg] [facility] height 2021-03-30 10:10:00 60.75 [in_i] [facility] weight 2021-03-30 10:10:00 245 [lb_av] [facility] temperature 2021-03-30 10:10:00 97.2 [degF] [facility] bmi 2021-03-30 10:10:00 46.67 kg/m2 [facility] oximetry 2021-03-30 10:10:00 100 % [facility] respiratory rate 2021-03-30 10:10:00 17 /min Comm on [facility] height 2021-02-15 16:20:00 60.75 [in_i] [facility] weight 2021-02-15 16:20:00 251.6 [lb_av] [facility] temperature 2021-02-15 16:20:00 97.3 [degF] [facility] bmi 2021-02-15 16:20:00 47.93 kg/m2 [facility] oximetry 2021-02-15 16:20:00 97 % [facility] respiratory rate 2021-02-15 16:20:00 18 /min Comm on [facility] blood pressure 2021-02-15 16:20:00 120 mm[Hg] [facility] systolic [facility] blood pressure 2021-02-15 16:20:00 76 mm[Hg] [facility] diastolic [facility] Systolic blood 2021-02-11 13:34:00 127 mm[Hg] Univer sity of [facility] Diastolic blood 2021-02-11 13:34:00 87 mm[Hg] Unive rsity of [facility] Heart rate 2021-02-11 13:34:00 100 /min [facility] Body height 2021-02-11 13:34:00 160 cm [facility] Body weight 2021-02-11 13:34:00 115.667 kg [facility] BMI 2021-02-11 13:34:00 45.17 kg/m2 [facility] height 2021-01-20 11:00:00 60.75 [in_i] [facility] weight 2021-01-20 11:00:00 255 [lb_av] [facility] temperature 2021-01-20 11:00:00 97.3 [degF] [facility] bmi 2021-01-20 11:00:00 48.57 kg/m2 [facility] oximetry 2021-01-20 11:00:00 98 % Common [facility] respiratory rate 2021-01-20 11:00:00 18 /min Comm on [facility] blood pressure 2021-01-20 11:00:00 122 mm[Hg] Common [facility] - systolic [facility] blood pressure 2021-01-20 11:00:00 68 mm[Hg] Common [facility] - diastolic [facility] height 2020-12-15 14:00:00 60.75 [in_i] Common [facility] weight 2020-12-15 14:00:00 258 [lb_av] [facility] temperature 2020-12-15 14:00:00 97.9 [degF] Common [facility] bmi 2020-12-15 14:00:00 49.15 kg/m2 [facility] oximetry 2020-12-15 14:00:00 98 % Common [facility] respiratory rate 2020-12-15 14:00:00 20 /min Comm on [facility] blood pressure 2020-12-15 14:00:00 118 mm[Hg] Common [facility] - systolic [facility] blood pressure 2020-12-15 14:00:00 67 mm[Hg] Common [facility] - diastolic [facility] Systolic (mm Hg) 2021-03-16 13:19:00 Lev [facility]te[facility] Diastolic (mm Hg) 2021-03-16 13:19:00 [facility] Rate 2021-03-16 13:19:00 [facility] Respitory Rate 2021-03-16 13:19:00 Carissa [facility] Height 2021-03-16 13:19:00 152.4 cm [facility] 2021-03-16 13:19:00 [facility] BMI Calculated 2021-03-16 13:19:00 Carissa [facility] Systolic (mm Hg) 2021-02-01 18:35:00 Levtiffanie ortega [facility] Diastolic (mm Hg) 2021-02-01 18:35:00 [facility] Heart Rate 2021-02-01 18:35:00 [facility] Respitory Rate 2021-02-01 18:35:00 [facility] Height 2021-02-01 18:35:00 152.4 cm [facility] Weight 2021-02-01 18:35:00 [facility] BMI Calculated 2021-02-01 18:35:00 [facility] Systolic (mm Hg) 2020-09-24 19:34:00 Lev rial [facility] Diastolic (mm Hg) 2020-09-24 19:34:00 [facility] Heart Rate 2020-09-24 19:34:00 [facility] Respitory Rate 2020-09-24 19:34:00 [facility] Height 2020-09-24 19:34:00 160.02 cm [facility] Weight 2020-09-24 19:34:00 [facility] BMI Calculated 2020-09-24 19:34:00 [facility] Respitory Rate 2020-02-26 16:32:00 [facility] Systolic (mm Hg) 2020-02-26 16:32:00 Lev rial [facility] Diastolic (mm Hg) 2020-02-26 16:32:00 [facility] Heart Rate 2020-02-26 16:00:00 [facility] Respitory Rate 2020-02-26 16:00:00 [facility] Systolic (mm Hg) 2020-02-26 16:00:00 Lev rial [place] Diastolic (mm Hg) 2020-02-26 16:00:00 [facility] Heart Rate 2020-02-26 15:50:00 [facility] Respitory Rate 2020-02-26 15:50:00 [facility] Systolic (mm Hg) 2020-02-26 15:50:00 Lev rial [facility] Diastolic (mm Hg) 2020-02-26 15:50:00 [facility] Heart Rate 2020-02-26 15:40:00 [facility] Temperature Oral (F) 2020-02-26 15:20:00 37.0 Sole [facility] Temperature Oral (F) 2020-02-26 11:25:00 37.2 Sole [...] Systolic (mm Hg) 2020-01-15 20:04:00 Lev rial [facility] Diastolic (mm Hg) 2020-01-15 20:04:00 [facility] Heart Rate 2020-01-15 20:04:00 [facility] Respitory Rate 2020-01-15 20:04:00 [facility] Height 2020-01-15 20:04:00 152.4 cm [facility] Weight 2020-01-15 20:04:00 [facility] BMI Calculated 2020-01-15 20:04:00 [facility] Systolic (mm Hg) 2019-12-02 20:40:00 Lev rial [facility] Diastolic (mm Hg) 2019-12-02 20:40:00 [facility] Heart Rate 2019-12-02 20:40:00 [facility] Respitory Rate 2019-12-02 20:40:00 [facility] Height 2019-12-02 20:40:00 152.4 cm [facility] Weight 2019-12-02 20:40:00 [facility] BMI Calculated 2019-12-02 20:40:00 [facility] Weight 2019-02-14 19:40:00 [facility] BMI Calculated 2019-02-14 19:40:00 [facility] Height 2019-02-14 19:40:00 160.02 cm [facility] Respitory Rate 2019-02-14 19:40:00 [facility] Heart Rate 2019-02-14 19:40:00 [facility] Systolic (mm Hg) 2019-02-14 19:40:00 Lev rial [facility] Diastolic (mm Hg) 2019-02-14 19:40:00 [facility] BMI Calculated 2018-12-24 20:38:00 [facility] Weight 2018-12-24 20:38:00 [facility] Height 2018-12-24 20:38:00 157.48 cm [facility] Systolic (mm Hg) 2018-12-24 20:38:00 Lev rial [facility] Diastolic (mm Hg) 2018-12-24 20:38:00 [facility] Respitory Rate 2018-12-24 20:38:00 [facility] Heart Rate 2018-12-24 20:38:00 [facility] Height 2018-12-20 19:20:00 152.4 cm [facility] BMI Calculated 2018-12-20 19:20:00 [facility] Weight 2018-12-20 19:20:00 [facility] Systolic (mm Hg) 2018-12-20 19:20:00 Lev rial Luc[facility] Diastolic (mm Hg) 2018-12-20 19:20:00 [facility] Heart Rate 2018-12-20 19:20:00 [facility] Respitory Rate 2018-12-20 19:20:00 [facility] Systolic (mm Hg) 2018-11-22 19:23:00 Lev rial Luc[facility] Diastolic (mm Hg) 2018-11-22 19:23:00 Mem [facility] Respitory Rate 2018-11-22 19:23:00 [facility] Height 2018-11-22 19:23:00 157.48 cm [facility] Weight 2018-11-22 19:23:00 [facility] BMI Calculated 2018-11-22 19:23:00 [facility] Heart Rate 2018-11-22 19:23:00 [facility] Procedures Procedure Date / Time Performing Clinician Source Performed AUTHORIZATION FOR RELEASE 2022-05-02 05:01:00 Doctor Unassigned, [facility] CONSENT/REFUSAL FOR 2021-10-10 20:09:22 Doctor Unassigned, [facility] DIAGNOSIS AND TREATMENT [facility] MRI SPINE EXTERNAL STUDY 2021-04-29 16:16:04 Tony Gray [facility] MR Ankle wo contrast [id number] 2020-07-02 00:00:00 [facility] [[facility]] US Lower Extremity 2020-05-31 00:00:00 [facility] Venous Doppler Bilateral Post Op Prom[facility] 29 Survey 2020-03-12 00:00:00 [facility] APPLICATION SHORT LEG 2020-02-26 13:13:00 [facility] SPLINT-CALF TO FOOT [id number] (Left)<sup>1</sup> ARTHROSCOPY ANKLE 2020-02-26 13:13:00 [facility] ermann 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 33415 (Left)<sup>2</sup> OPEN REDUCTION INTERNAL 2020-02-26 13:13:00 Lev rial [facility] FIXATION TALUS FRACTURE [id number] (Left)<sup>3</sup> [L] 2019 Novel Coronavirus 2020-02-05 00:00:00 [facility] (COVID-19), MARK [[facility]] Ortho - Surgery 2020-02-02 00:00:00 [facility] Cholecyst[facility] Breast reduction, [facility] nn bilateral Bunionectomy [facility] Plantar fasciitis of left [facility] foot History of Breast [facility] reduction History of Carpal tunnel [facility] surgery Plan of Care Planned Activity Planned Date Details Comments Source Future Scheduled 2022-07-06 [facility] 08:29:48 screening (procedure) [code = 305784264] Future Scheduled 2022-07-06 Screening for [facility] Test 08:29:48 malignant neoplasm of cervix (procedure) [code = 976813385] Future Scheduled 2022-07-06 BREAST CANCER [facility] Test 08:29:48 SCREENING [code = BREAST CANCER SCREENING] Future Scheduled 2022-07-06 COLONOSCOPY [facility] 08:29:48 SCREENING [code = COLONOSCOPY SCREENING] Future Scheduled 2022-07-06 COVID-19 [facility]ACCINE [facility] 08:29:48 - Booster for Moderna series) [code = COVID-19 VACCINE (3 - Booster for Moderna series)] Future Scheduled 2022-07-06 [facility] 08:29:48 [code = INFLUENZA VACCINE] Future Scheduled 2022-04-27 [facility] B [facility] 09[facility]25:03 (1 of 3 - 3-dose series) [code = HEPATITIS B VACCINES (1 of 3 - 3-dose series)] Future Scheduled 2022-04-27 [facility] 09:25:03 screening (procedure) [code = 868442520] Future Scheduled 2022-04-27 [facility] Test 09:25:03 malignant neoplasm of cervix (procedure) [code = 627614690] Future Scheduled 2022-04-27 BREAST CANCER [facility] Test 09:25:03 SCREENING [code = BREAST CANCER SCREENING] Future Scheduled 2022-04-27 [facility] 09:25:03 SCREENING [code = COLONOSCOPY SCREENING] Future Scheduled 2022-04-27 COVID-19 VACCINE ([facility] 09:25:03 - Booster for Moderna series) [code = COVID-19 VACCINE (3 - Booster for Moderna series)] Future Scheduled 2022-04-27 [facility]ACCINE [facility] 09:25:03 [code = INFLUENZA VACCINE] Future Scheduled 2022-03-30 HEPATITIS B VACCINES Met [facility] Test 16:54:14 (1 of 3 - 3-dose series) [code = HEPATITIS B VACCINES (1 of 3 - 3-dose series)] Future Scheduled 2022-03-30 [facility] 16:54:14 screening (procedure) [code = 637493583] Future Scheduled 2022-03-30 [facility] Test 16:54:14 malignant neoplasm of cervix (procedure) [code = 602346534] Future Scheduled 2022-03-30 BREAST CANCER [facility] Test 16:54:14 SCREENING [code = BREAST CANCER SCREENING] Future Scheduled 2022-03-30 [facility] 16:54:14 SCREENING [code = COLONOSCOPY SCREENING] Future Scheduled 2022-03-30 COVID-19 VACCINE ([facility] 16:54:14 - Booster for [employer] series) [code = COVID-19 VACCINE (3 - Booster for Modern[employer] series)] Future Scheduled 2022-03-30 [facility]:14 [code = INFLUENZA VACCINE] Future Scheduled 2022-03-30 HEPATITIS B VACCINES [facility] 16:54:14 (1 of 3 - 3-dose series) [code = HEPATITIS B VACCINES (1 of 3 - 3-dose series)] Future Scheduled 2022-03-30 Hepatitis C [facility]:14 screening (procedure) [code = [id number]] Future Scheduled 2022-03-30 Screening for [facility] 16:54:14 malignant neoplasm of cervix (procedure) [code = [id number]] Future Scheduled 2022-03-30 BREAST CANCER [facility] 16:54:14 SCREENING [code = BREAST CANCER SCREENING] Future Scheduled 2022-03-30 [facility]:14 SCREENING [code = COLONOSCOPY SCREENING] Future Scheduled 2022-03-30 COVID-19 VACCINE (3 [facility]:54:14 - Booster for [employer] series) [code = COVID-19 VACCINE (3 - Booster for Modern[employer] series)] Future Scheduled 2022-03-30 [facility]:54:14 [code = INFLUENZA VACCINE] Future Scheduled 2022-03-09 HEPATITIS B VACCINES [facility] 10:28:27 (1 of 3 - 3-dose series) [code = HEPATITIS B VACCINES (1 of 3 - 3-dose series)] Future Scheduled 2022-03-09 [facility]atitis C [facility] 10:28:27 screening (procedure) [code = 727519755] Future Scheduled 2022-03-09 [facility] 10:28:27 malignant neoplasm of cervix (procedure) [code = 993949090] Future Scheduled 2022-03-09 BREAST CANCER [facility] 10:28:27 SCREENING [code = BREAST CANCER SCREENING] Future Scheduled 2022-03-09 COLONOSCOPY [facility] 10:28:27 SCREENING [code = COLONOSCOPY SCREENING] Future Scheduled 2022-03-09 COVID-19 VACCINE (3 [facility] 10:28:27 - Booster for Moderna series) [code = COVID-19 VACCINE (3 - Booster for Moderna series)] Future Scheduled 2022-03-09 [facility]INE [facility] 10:28:27 [code = INFLUENZA VACCINE] Future Scheduled 2021-08-16 [facility] 19:56:30 screening (procedure) [code = 310023439] Future Scheduled 2021-08-16 [facility] 19:56:30 malignant neoplasm of cervix (procedure) [code = 036489598] Future Scheduled 2021-08-16 INFLUENZA VACCINE [facility] [...] Clinicians Facility Department ID 2022-02-21 [facility] [id number] Common 13:42:03 Avnee [id number] [facility] 2021-08-10 Outpatient Garcia, [facility] [id number] Common 13:49:13 Avnee [id number] [facility] 2021-08-10 Outpatient Garcia, [facility] [id number] Common 13:47:59 Avnee 96770 [facility] 2021-08-10 Outpatient Garcia, [facility] [id number] Common 13:43:00 Avnee 48091 [facility] 2021-08-10 Outpatient Garcia, [facility] [id number] Common 13:37:06 Avnee 32853 [facility] 2021-08-10 Outpatient Garcia, [facility] [id number] Common 13:23:50 Avnee 11960 [facility] 2021-08-10 Outpatient Garcia, [facility] [id number] Common 13:22:32 Avnee 36230 [facility] 2021-08-10 Outpatient Garcia, [facility] [id number] Common 13:09:55 Avnee 30010 [facility] 2021-05-15 Outpatient R JA [facility] JOSE [id number] Univers 06:58:12 ESTER [facility] 2022-05-02 2022-05-02 (TEL) [facility] [id number] Co mmon 00:00:00 00:00:00 Spirit - [facility] 2022-05-02 2022-05-02 Orders Doctor DUEÑAS 1.2.840.114 [id number] Univers 00:00:00 00:00:00 Only Unassigned, MARIA ELENA 350.1.13.10 ity [facility] 4.2.7.2.686 [place] [phone] [facility] [address] [place] 2022-02-21 2022-02-21 Outpatient ROSI CAMPBELL [id number] Rosi 00:00:00 00:00:00 HAMZAH armendariz 2021-10-10 2021-10-10 Emergency [facility] [id number] Univers 15:21:00 15:42:00 CAT [facility] 2021-10-10 2021-10-10 Emergency [facility] 1.2.840.114 [id number] Univers 15:21:00 15:42:00 Cat [place] 350.1.13.10 ity [facility] 4.2.7.2.686 [facility] [phone] [facility] 084 [place] 2021-10-10 2021-10-10 Outpatient ROSI ALARCON [id number] Rosi 00:00:00 00:00:00 ALFONZO armendariz 2021-09-09 2021-09-11 Outside nullFlavo MNA [id number] Memoria 15:41:21 05:59:59 Medical r Neurology 00 l Records Flaglerrefugio Segovia 2021-09-09 2021-09-11 Outside nullFlavo MNA [id number] Memoria 15:41:21 05:59:59 Medical r Neurology 00 l Records [place] 2021-09-09 2021-09-10 Outpatient MHMISCHER MISCHER [id number] 09:41:21 23:59:59 00 2021-09-09 2021-09-09 Outpatient ROSI ALARCON [id number] Rosi 00:00:00 00:00:00 ALFONZO Seybol d 2021-08-26 2021-08-26 Outpatient ROSI ALARCON [id number] Rosi 00:00:00 00:00:00 ALFONZO Seybol d 2021-07-05 2021-07-05 Outpatient ROSI ALARCON [id number] Rosi 00:00:00 00:00:00 ALFONZO Seybol d 2021-07-05 2021-07-05 Outpatient ROSI ALARCON [id number] Rosi 00:00:00 00:00:00 ALFONZO Seybol d 2021-06-02 2021-06-02 Outpatient ROSI ALARCON [id number] Rosi 00:00:00 00:00:00 ALFONZO Seybol d 2021-05-23 2021-05-23 Documentat Marina, 1.2.840.1 [id number] Methodi 00:00:00 00:00:00 ion Tony Hdz 22687.1.[address] 3.430.2.7 Hospit a .3.635496 l .8 2021-05-18 2021-05-18 [facility] 1.2.840.1 [id number] Methodi 12:57:38 23:59:[address] 3.430.2.7 Hospit a .3.805522 l .8 2021-05-18 2021-05-18 Office Marina, 1.2.840.1 [id number] Methodi 13:15:00 15:18:57 Visit Tony Hdz 66299.1.[address] 3.430.2.7 Hospit a .3.419074 l .8 2021-05-18 2021-05-18 Outpatient [facility] [id number] [place] 00:00:00 00:00:[address] 2021-05-18 2021-05-18 Jean Gray, 1.2.840.1 [id number] Methodi 00:00:00 00:00:00 Only Tony Hdz 25204.1.1 694 3.430.2.7 Hospit a .3.082076 l .8 2021-05-16 2021-05-16 Outpatient ROSI ALARCON [id number] Rosi 00:00:00 00:00:00 ALFONZOVERO Stevensol d 2021-05-11 2021-05-11 Outpatient ROSI ALARCON [id number] Rosi 00:00:00 00:00:00 ALFONZO Seybol d 2021-05-11 2021-05-11 Outpatient ROSI ALARCON [id number] Rosi 00:00:00 00:00:00 ALFONZO Seybol d 2021-04-28 2021-04-28 Office [place], [place] 1.2.840.114 [id number] Rosi 09:39:43 10:09:43 Visit Alfonzo Montenegro 350.1.13.13 russ Rolanda 1.2.7.2.686 [id number] 2021-04-27 2021-04-27 Ambulatory nullFlavo MNA [id number] Memoria 15:15:00 15:15:00 Pre-Reg r Neurology 13 l [place] 2021-04-27 2021-04-27 Ambulatory nullFlavo MNA [id number] Memoria 15:15:00 15:15:00 Pre-Reg r Neurology 13 l [place] 2021-04-27 2021-04-27 Outpatient TYRA MARY [id number] Memoria 10:15:00 10:15:00 13 l Luc[place] 2021-04-27 2021-04-27 [facility] [id number] 10:15:00 10:15:00 Malcom Jordy Santos 2021-04-21 2021-04-21 [facility]TEL) [facility] [id number] Co mmon 00:00:00 00:00:00 [facility] 2021-04-12 2021-04-12 (TEL) STLMLC STLMLC [id number] Co mmon 00:00:00 00:00:00 [facility] 2021-04-06 2021-04-06 (TEL) STLMLC STLMLC [id number] Co mmon 00:00:00 00:00:00 [facility] 2021-03-31 2021-03-31 (TEL) STLMLC STLMLC [id number] Co mmon 00:00:00 00:00:00 [facility] 2021-03-30 2021-03-30 OFFICE STLMLC STLMLC [id number] Co mmon 00:00:00 00:00:00 VISIT EST Spir it PT LEVEL 3 [facility] 2021-03-30 2021-03-30 (TEL) STLMLC STLMLC [id number] Co mmon 00:00:00 00:00:00 [facility] 2021-03-28 2021-03-28 Outpatient ROYCE DELEON [facility] [id number] Univers 10:30:00 10:30:00 ity [facility] 2021-03-23 2021-03-23 [facility]phone [facility] 1.2.840.114 [id number] [facility] 00:00:00 00:00:00 [facility] 350.1.13.10 it y of [place] 4.2.7.2.686 [place] as Sam?Blea [phone] [address] Medical Office Building 2021-03-16 2021-03-17 Outpatient nullFlavo MNA [id number] Memoria 13:15:00 04:59:59 r Neurology 12 l Nik [place] 2021-03-16 2021-03-17 Outpatient nullFlavo MNA [id number] Memoria 13:15:00 04:59:59 r Neurology 12 l Nik Segovia 2021-03-17 2021-03-17 (TEL) STLC STLC [id number] Co mmon 00:00:00 00:00:00 [facility] 2021-03-16 2021-03-16 Outpatient VIRGILIO Espinal [id number] 08:15:00 23:59:59 Malcom Graham 2021-03-16 2021-03-16 Outpatient TYRA MARY [id number] Memoria 08:15:00 08:15:00 12 l Luc[place] 2021-02-23 2021-02-23 OFFICE STLMLC STLMLC [id number] Co mmon 00:00:00 00:00:00 VISIT EST Spir it PT LEVEL 3 [facility] 2021-02-21 2021-02-21 (TEL) STLMLC STLMLC [id number] Co mmon 00:00:00 00:00:00 [facility] 2021-02-16 2021-02-16 (TEL) STLMLC STLMLC [id number] Co mmon 00:00:00 00:00:00 [facility] 2021-02-15 2021-02-15 OFFICE STLMLC STLC [id number] Co mmon 00:00:00 00:00:00 VISIT EST Spir it PT LEVEL 3 [facility] 2021-02-11 2021-02-11 Outpatient Scott PERES [facility] [id number] Univers 08:15:00 08:56:02 ESTER [facility] 2021-02-11 2021-02-11 [facility] [id number] Univers 08:13:08 08:56:02 Visit Ester [facility] 350.1.13.10 it y of SURGICAL 4.2.7.2.686 [place] as SPECIALTI [id number] Ri dical ES 198 [facility] 2021-02-10 2021-02-10 Outpatient Scott WOOD [facility] [id number] Univers 13:00:00 13:00:00 [facility] 2021-02-03 2021-02-03 [facility] [id number] Univers 10:30:00 10:30:00 [facility] 2021-02-01 2021-02-02 Outpatient nullFlavo MNA [id number] Memoria 18:30:00 04:59:59 r Neurology 11 l [place] 2021-02-01 2021-02-02 Outpatient nullFlavo MNAlis [id number] Memoria 18:30:00 04:59:59 r Neurology 11 l Flaglerrefugio Segovia 2021-02-01 2021-02-01 Outpatient VIPUL EspinalSCHER MHMISCHER [id number] 13:30:00 23:59:59 Malcom Ashlee Graham 2021-02-01 2021-02-01 Outpatient MHIE MHIE [id number] Memoria 13:30:00 13:30:00 11 l [place] 2021-01-20 2021-01-20 OFFICE STLMLC STLMLC [id number] Co mmon 00:00:00 00:00:00 VISIT EST Spir it PT LEVEL 3 - [facility] 2021-01-14 2021-01-14 (TEL) STLMLC STLMLC [id number] Co mmon 00:00:00 00:00:00 [facility] 2020-12-23 2020-12-23 Outpatient Scott JAFFE [facility] [id number] Univers 10:00:00 10:00:00 DEMETRIA [facility] 2020-12-23 2020-12-23 Outpatient Scott OLSON [facility] [id number] Univers 09:00:00 09:00:00 WONDIFUL ity o f [facility] 2020-12-16 2020-12-16 Outpatient Scott WOOD [facility] [id number] Univers 10:30:00 10:30:00 [facility] 2020-12-15 2020-12-15 (TEL) STLMLC STLMLC [id number] Co mmon 00:00:00 00:00:00 [facility] 2020-12-15 2020-12-15 OFFICE STLMLC STLMLC [id number] Co mmon 00:00:00 00:00:00 VISIT NEW Spir it PT LEVEL 4 - [facility] 2020-12-06 2020-12-06 Outpatient Scott WOOD [facility] [id number] Univers 15:52:18 23:59:00 MG [facility] 2020-11-25 2020-11-25 Outpatient ROYCE DELEON [facility] [id number] Univers 09:00:00 09:00:00 [facility] 2020-11-11 2020-11-11 Outpatient R ROYCE PRUETT [facility] [id number] Univers 15:30:00 15:30:00 [facility] 2020-11-04 2020-11-04 Outpatient R JACQUELINE, [facility] [id number] Univers 10:00:00 10:00:00 EMELYN [facility] 2020-10-28 2020-10-28 Outpatient Scott WOOD, [facility] [id number] Univers 10:45:00 10:45:00 [facility] 2020-10-25 2020-10-25 Outpatient Scott WOOD [facility] [id number] Univers 14:45:00 14:45:00 [facility] 2020-10-15 2020-10-15 Outpatient Scott WOOD [facility] [id number] Univers 10:00:00 10:00:00 [facility] 2020-10-08 2020-10-08 Outpatient R JA, [facility] [id number] Univers 09:30:00 09:30:00 ESTER [facility] 2020-10-08 2020-10-08 Outpatient R BRITTNEY, [facility] [id number] Univers 09:15:00 09:15:00 OSCAR [facility] 2020-09-24 2020-09-25 Outpatient nullFlavo MNA [id number] Memoria 19:00:00 05:59:59 r Neurology 10 l Nik Segovia 2020-09-24 2020-09-25 Outpatient nullFlavo MNA [id number] Memoria 19:00:00 05:59:59 r Neurology 10 l Nik Segovia 2020-09-24 2020-09-24 Outpatient VIRGILIO Espinal [id number] 13:00:00 23:59:59 Malcom Ada Graham 2020-09-24 2020-09-24 Outpatient Scott WOOD [facility] [id number] Univers 11:58:20 23:59:00 [facility] 2020-09-24 2020-09-24 Outpatient MHIE TYRA [id number] Memoria 13:00:00 13:00:00 10 l Luca 2020-09-21 2020-09-21 Outpatient R JA [facility] [id number] Univers 00:00:00 00:00:00 [facility] 2020-09-09 2020-09-09 Outpatient Scott PERES [facility] [id number] Univers 09:15:00 09:15:00 [facility] 2020-09-06 2020-09-06 Ambulatory nullFlavo MNA [id number] Memoria 16:30:00 16:30:00 Pre-Reg r Neurology 09 l [place] 2020-09-06 2020-09-06 Ambulatory nullFlavo MNA [id number] Memoria 16:30:00 16:30:00 Pre-Reg r Neurology 09 l [place] 2020-09-06 2020-09-06 Outpatient TYRA MARY [id number] Memoria 10:30:00 10:30:00 09 violet Luc[place] 2020-09-06 2020-09-06 Out[facility] [id number] 10:30:00 10:30:00 Malcom 09 Santos 2020-07-14 2020-07-14 Outpatient Scott FAUST [facility] [id number] Univers 19:00:00 19:00:00 BROOKE rm tiffanie f [facility] 2020-07-02 2020-07-02 Appointrosaura JEAN [facility] Orthopedics [id number] [place] 14:30:00 14:30:00 t; RJAI JEAN BAPTISTE, - Sugar Phys ici RAJI, DPRaeann [place] 2 ans DPM 2020-06-01 2020-06-01 Ambulatory nullFlavo MNA [id number] Memoria 20:00:00 20:00:00 Pre-Reg r Neurology 08 l [place] 2020-06-01 2020-06-01 Ambulatory nullFlavo MNA [id number] Memoria 20:00:00 20:00:00 Pre-Reg r Neurology 08 l [place] 2020-06-01 2020-06-01 Outpatient MHIE TYRA [id number] Memoria 14:00:00 14:00:00 08 l [place] 2020-06-01 2020-06-01 Outpatient VIRGILIO Espinal [facility] [id number] 14:00:00 14:00:00 Malcomlindy Graham 2020-05-31 2020-05-31 Appointrosaura JEAN [facility] Orthopedics [id number] [place] 10:00:00 10:00:00 t; RAJI JEAN BAPTISTE, - Sugar Phys ici RAJI, DPM [place] 2 ans DPM 2020-05-10 2020-05[facility] Orthopedics 700 [id number] [place] 09:00:00 09:00:00 t; RAJI JEAN BAPTISTE, - Sugar Phys ici RAJI, DPM [place] 2 ans DPM 2020-04-27 2020-04-[facility] [id number] [place] 14:45:00 14:45:00 t; RAJI JEAN BAPTISTE, - Sugar Phys ici RAJI, DPM [place] 2 ans DPM 2020-03-29 2020-03-[facility] Orthopedics [id number] [place] 13:00:00 13:00:00 t; RAJI JEAN BAPTISTE, - [place] Phys ici RAJI, DPM [place] 2 ans DPM 2020-03-08 2020-03-08 [facility] Orthopedics [id number] [id number] [place] 11:15:00 11:15:00 t; RAJI JEAN BAPTISTE, - [place] Phys ici RAJI, DPM [place] 2 ans DPM 2020-02-26 2020-02-26 [facility] [id number] Memoria 10:46:09 16:30:[address] [facility] 2020-02-26 2020-02-26 Outpatient nullFlavo [facility] [id number] Memoria 10:46:09 16:30:[address] [facility] 2020-02-26 2020-02-26 Outpatient nullFlavo [facility] [id number] Memoria 05:46:09 11:30:00 r l [place] 2020-02-26 2020-02-26 Outpatient Markel, [id number] 05:46:09 11:30:00 Raji 8 2020-02-26 2020-02-26 [facility] [id number] [place] 10:30:00 10:30:00 t; RAJI JEAN BAPTISTE, - [place] Phys ici RAJI, DPM [place] 2 ans DPM 2020-02-02 2020-02-02 Appointrosaura JEAN BAPTISTE [facility] [id number] [place] 10:45:00 10:45:00 t; RAJI JEAN BAPTISTE, - [place] Phys ici RAJI, DPM [place] 2 ans DPM 2020-01-15 2020-01-16 Outpatient nullFlavo MNA [id number] Memoria 20:00:00 04:59:59 r Neurology 07 l [place] 2020-01-15 2020-01-16 Outpatient nullFlavo MNA [id number] Memoria 20:00:00 04:59:59 r Neurology 07 l [place] 2020-01-15 2020-01-15 Outpatient [facility]ILIO [facility]inal [id number] 15:00:00 23:59:59 Malcom 07 Santos 2020-01-15 2020-01-15 Ambulatory nullFlavo MNA [id number] Memoria 20:00:00 20:00:00 Pre-Reg r Neurology 06 l [place] 2020-01-15 2020-01-15 Ambulatory nullFlavo MNA [id number] Memoria 20:00:00 20:00:00 Pre-Reg r Neurology 06 l [place] 2020-01-15 2020-01-15 Outpatient MHIE MHIE [id number] Memoria 15:00:00 15:00:00 06 l [place] 2020-01-15 2020-01-15 Outpatient MHIE MHIE [id number] Memoria 15:00:00 15:00:00 07 l Luca 2020-01-15 2020-01-15 Outpatient VIRGILIO Espinal [facility] [id number] 15:00:00 15:00:00 Malcom 06 Santos 2019-12-02 2019-12-03 Outpatient nullFlavo MNA [id number] Memoria 20:30:00 04:59:59 r Neurology 05 l Nik Segovia 2019-12-02 2019-12-03 Outpatient nullFlavo MNA [id number] Memoria 20:30:00 04:59:59 r Neurology 05 l Nik Segovia 2019-12-02 2019-12-02 Outpatient Krell, MHMISCHER MHMISCHER [id number] 15:30:00 23:59:59 Malcom Rere Graham 2019-12-02 2019-12-02 Outpatient MHIE MHIE [id number] Memoria 15:30:00 15:30:00 05 violet Segovia 2019-05-23 2019-05-23 Ambulatory nullFlavo MNA [id number] Memoria 19:15:00 19:15:00 Pre-Reg r Neurology 04 l Nik Luca 2019-05-23 2019-05-23 Ambulatory nullFlavo MNA [id number] Memoria 19:15:00 19:15:00 Pre-Reg r Neurology 04 violet Zaragoza [place] 2019-05-23 2019-05-23 Outpatient MHIE DIMAIE [id number] Memoria 13:15:00 13:15:00 04 violet Segovia 2019-05-23 2019-05-23 Outpatient DIMA EspinalWVSCHER MISCHER [id number] 13:15:00 13:15:00 Malcom Connor Santos 2019-03-23 2019-03-23 Emergency Harish, [facility] [id number] 12:37:57 13:11:00 Palomo Dumont 350.1.13.10 [place] 4.2.7.2.686 [place] [id number] 2019-03-23 2019-03-23 Orders Doctor DUEÑAS 1.2.840.114 [id number] 00:00:00 00:00:00 Only Unassigned, MARIA ELENA 350.1.13.10 [place] [address]686 [id number] 2019-02-14 2019-02-15 Outpatient nullFlavo MNA [id number] Memoria 20:00:00 04:59:59 r Neurology 02 violet [place] 2019-02-14 2019-02-15 Outpatient nullFlavo MNA [id number] Memoria 20:00:00 04:59:59 r Neurology 02 violet Zaragoza [place] 2019-02-14 2019-02-14 Outpatient EstefaníavaleriDIMAMISCHER MHMISCHER [id number] 15:00:00 23:59:59 Malcom Serge Santos 2019-02-14 2019-02-14 Outpatient MHIE MHIE [id number] Memoria 15:00:00 15:00:00 02 violet Segovia 2018-12-24 2018-12-25 Outpatient nullFlavo MNA [id number] Memoria 20:15:00 04:59:59 r Neurology 03 violet Segovia 2018-12-24 2018-12-25 Outpatient nullFlavo MNA [id number] Memoria 20:15:00 04:59:59 r Neurology 03 Nik Segovia 2018-12-24 2018-12-24 Outpatient DIMA EspinalWVSCHER MISCHER [id number] 15:15:00 23:59:59 Malcom 03 Santos 2018-12-24 2018-12-24 Outpatient MHIE MHIE [id number] Memoria 15:15:00 15:15:00 03 violet Segovia 2018-12-20 2018-12-21 Outpatient nullFlavo MNA [id number] Memoria 18:45:00 04:59:59 r Neurology 01 Nik [place] 2018-12-20 2018-12-21 Outpatient nullFlavo MNA [id number] Memoria 18:45:00 04:59:59 r Neurology 01 violet Flaglerrefugio Segovia 2018-12-20 2018-12-20 [facility] [id number] 13:45:00 23:59:59 Malcom Santos 2018-12-20 2018-12-20 Outpatient MHIE MHIE [id number] Memoria 13:45:00 13:45:00 01 violet Luca 2018-11-22 2018-11-23 Outpatient nullFlavo MNA [id number] Memoria 19:45:00 04:59:59 r Neurology 00 l [place] 2018-11-22 2018-11-23 Outpatient nullFlavo MNA [id number] Memoria 19:45:00 04:59:59 r Neurology 00 [place] 2018-11-22 2018-11-22 Outpatient VIPUL EspinalSCHER MISCHER [id number] 14:45:00 23:59:59 Malcom 00 Santos 2018-11-22 2018-11-22 Outpatient MHIE MHIE [id number] Memoria 14:45:00 14:45:00 00 violet Segovia Results Test Description Test Time Test Comments Results Result Comments Source LABORATORY 2020-02-18 17:38:00 Test Item Value Reference Range Interpretation Comme nts Glucose Lvl (test code = Glucose Lvl) 89 70-99 [place] 029860-08-05 17:38:00 Test Item Value Reference Range Interpretation Comments BUN (test code = BUN) 12 7-22 [place] 029860-08-05 17:38:00 Test Item Value Reference Range Interpretation Comments Creatinine (test code = Creatinine) 0.79 0.50-1.40 [place] 029860-08-05 17:38:00 Test Item Value Reference Range Interpretation Comments Sodium Level (test code = Sodium Level) 141 135-145 [place] 029860-08-05 17:38:00 Test Item Value Reference Range Interpretation Comments Potassium Level (test code = Potassium 4.5 3.5-5.1 Level) [facility]1946-98-94 17:38:00 Test Item Value Reference Range Interpretation Comments Chloride Level (test code = Chloride 108 95-109 Level) [facility] HospitalRysygppSTLEZXDSPP9571-28-43 17:38:00 Test Item Value Reference Range Interpretation Comments Total Carbon Dioxide Level (test code = 24 24-32 Total Carbon Dioxide Level) [place] 029860-08-05 17:38:00 Test Item Value Reference Range Interpretation Comments AGAP (test code = AGAP) 13.5 10.0-20.0 [place] 029860-08-05 17:38:00 Test Item Value Reference Range Interpretation Comments Calcium Level (test code = Calcium 9.5 8.5-10.5 Level) [facility] HospitalNafdtsvKSEJTDQTEL9572-23-81 17:38:00 Test Item Value Reference Range Interpretation Comments eGFR (test code = eGFR) 92 [place] 029860-08-05 17:38:00 Test Item Value Reference Range Interpretation Comments Results (test code = Reported (02/18/20 12:38 Results) PM) [place] 029860-08-05 17:38:00 Test Item Value Reference Range Interpretation Comments White Blood Count (test code = White 6.4 3.7-10.4 Blood Count) [place] 029860-08-05 17:38:00 Test Item Value Reference Range Interpretation Comments Red Blood Cell Count (test code = Red 4.37 4.20-5.40 Blood Cell Count) [facility] HospitalByhnlgjTHPTNUKMOQ0652-91-51 17:38:00 Test Item Value Reference Range Interpretation Comments Hemoglobin (test code = Hemoglobin) 12.7 12.0-16.0 [facility] HospitalPcnfjfrZFCXPVFXTG4143-01-72 17:38:00 Test Item Value Reference Range Interpretation Comments Hematocrit (test code = Hematocrit) 38.3 36.0-48.0 [facility] HospitalElcrxclDRHDMFYNJU9104-28-32 17:38:00 Test Item Value Reference Range Interpretation Comments MCV (test code = MCV) 87.5 80.0-98.0 [facility] HospitalFzdyoojZCKCCOMTMO3108-70-56 17:38:00 Test Item Value Reference Range Interpretation Comments MCH (test code = MCH) 29.2 pg 27.0-31.0 [facility] HospitalRqogefsAVEDFSULTE4877-62-30 17:38:00 Test Item Value Reference Range Interpretation Comments MCHC (test code = MCHC) 33.3 32.0-36.0 [facility] H[id number] 17:38:00 Test Item Value Reference Range Interpretation Comments RDW (test code = RDW) 14.2 11.5-14.5 [facility] H[id number] 17:38:00 Test Item Value Reference Range Interpretation Comments Platelet (test code = Platelet) 300 133-450 [facility] Hos[id number] 17:38:00 Test Item Value Reference Range Interpretation Comments MPV (test code = MPV) 8.3 7.4-10.4 [facility] H[id number] 17:38:00 Test Item Value Reference Range Interpretation Comments NRBCs # (test code = NRBCs #) 0.1 0.4-2.2 [facility] HospitalKbpctnmDUSIXABIEK0900-97-78 17:38:00 Test Item Value Reference Range Interpretation Comments Results (test code = Reported (02/18/20 12:38 Results) PM) [facility] H[id number] 17:38:00 Test Item Value Reference Range Interpretation Comments Neutrophil % (test code = Neutrophil %) 62.2 45.0-75.0 [facility] HospitalMbovzfyZIJKSITSZE0422-96-93 17:38:00 Test Item Value Reference Range Interpretation Comments Monocyte % (test code = Monocyte %) 6.8 2.0-12.0 [place] [facility] 17:38:00 Test Item Value Reference Range Interpretation Comments Lymphocyte % (test code = Lymphocyte %) 26.9 20.0-40.0 [facility]SajlaejKEZPMJQKUF6525-18-22 17:38:00 Test Item Value Reference Range Interpretation Comments Eosinophil # (test code 3.6 See_Comment [Au tomated message] The = Eosinophil #) system which generated this result tra nsmitted reference range : <=4.0. The reference r karan was not used to int erpret this result as normal/abnormal . [facility] H[id number] 17:38:00 Test Item Value Reference Range Interpretation Comments Basophil % (test code = 0.5 See_Comment [Au tomated message] The Basophil %) system which ge nerated this result tra nsmitted reference range : <=1.0. The reference r karan was not used to int erpret this result as normal/abnormal . [facility] HospitalJzoxrcsNPFXVDJNQO3652-15-97 17:38:00 Test Item Value Reference Range Interpretation Comments Neutrophil # (test code = Neutrophil #) 4.0 1.5-8.1 [facility] HospitalE[id number] 17:38:00 Test Item Value Reference Range Interpretation Comments Lymphocyte # (test code = Lymphocyte #) 1.7 1.0-5.5 [facility] Hospit[id number] 17:38:00 Test Item Value Reference Range Interpretation Comments Monocyte # (test code = 0.4 See_Comment [Au tomated message] The Monocyte #) system which ge nerated this result tra nsmitted reference range : <=0.8. The reference r karan was not used to int erpret this result as normal/abnormal . [facility] Hospit[id number] 17:38:00 Test Item Value Reference Range Interpretation Comments Eosinophil % (test code 0.2 See_Comment [Au tomated message] The = Eosinophil %) system which generated this result tra nsmitted reference range : <=0.5. The reference r karan was not used to int erpret this result as normal/abnormal . [facility] HospitalKixhcirCQYWLGSHKC7009-06-20 17:38:00 Test Item Value Reference Range Interpretation Comments Results (test code = Reported (02/18/20 12:38 Results) PM) [place] [id number] 17:38:00 Test Item Value Reference Range Interpretation Comments Glucose Lvl (test code = Glucose Lvl) 89 70-99 [place] [id number] 17:38:00 Test Item Value Reference Range Interpretation Comments BUN (test code = BUN) 12 7-22 [place] [id number] 17:38:00 Test Item Value Reference Range Interpretation Comments Creatinine (test code = Creatinine) 0.79 0.50-1.40 [place] [id number] 17:38:00 Test Item Value Reference Range Interpretation Comments Sodium Level (test code = Sodium Level) 141 135-145 [place] [id number] 17:38:00 Test Item Value Reference Range Interpretation Comments Potassium Level (test code = Potassium 4.5 3.5-5.1 Level) [facility] HospitalNwuelmrRUXMUOXIYD9866-93-04 17:38:00 Test Item Value Reference Range Interpretation Comments Chloride Level (test code = Chloride 108 95-109 Level) [facility] HospitalFzyuorxDTOBMBNAVH4843-71-10 17:38:00 Test Item Value Reference Range Interpretation Comments Total Carbon Dioxide Level (test code = 24 24-32 Total Carbon Dioxide Level) [facility] HospitalUfdjsxdMOXSFLFYQJ5906-26-61 17:38:00 Test Item Value Reference Range Interpretation Comments AGAP (test code = AGAP) 13.5 10.0-20.0 [facility] Hospit[id number] 17:38:00 Test Item Value Reference Range Interpretation Comments Calcium Level (test code = Calcium 9.5 8.5-10.5 Level) [facility] HospitalGwojjqjDQBCIIRPZB6939-52-55 17:38:00 Test Item Value Reference Range Interpretation Comments eGFR (test code = eGFR) 92 [facility] HospitalTmerxinPCIJVCIQJO1047-30-60 17:38:00 Test Item Value Reference Range Interpretation Comments Results (test code = Reported (02/18/20 12:38 Results) PM) [facility] HospitalZhenzysEXTIKTYFSO2049-21-91 17:38:00 Test Item Value Reference Range Interpretation Comments White Blood Count (test code = White 6.4 3.7-10.4 Blood Count) [facility] HospitalWsylikrJWMMLNTGZK2017-09-83 17:38:00 Test Item Value Reference Range Interpretation Comments Red Blood Cell Count (test code = Red 4.37 4.20-5.40 Blood Cell Count) [facility] HospitalEsfnylgZSJKJWPNYM4976-62-93 17:38:00 Test Item Value Reference Range Interpretation Comments Hemoglobin (test code = Hemoglobin) 12.7 12.0-16.0 [facility] HospitalDpxhmxbGMOGCIQJAO1721-34-16 17:38:00 Test Item Value Reference Range Interpretation Comments Hematocrit (test code = Hematocrit) 38.3 36.0-48.0 [facility] HospitalVyyuglzDELMMOCKXI4198-80-80 17:38:00 Test Item Value Reference Range Interpretation Comments MCV (test code = MCV) 87.5 80.0-98.0 [facility] HospitalPesckrhSJMXKGMCET5320-97-56 17:38:00 Test Item Value Reference Range Interpretation Comments MCH (test code = MCH) 29.2 pg 27.0-31.0 [facility] HospitalVaflmpkUGIGCNNYZK3474-84-75 17:38:00 Test Item Value Reference Range Interpretation Comments MCHC (test code = MCHC) 33.3 32.0-36.0 [facility] HospitalUauicecIWYOAMAEIC5234-88-37 17:38:00 Test Item Value Reference Range Interpretation Comments RDW (test code = RDW) 14.2 11.5-14.5 [facility] HospitalYcmsxgpBLAROVDLSG9510-80-12 17:38:00 Test Item Value Reference Range Interpretation Comments Platelet (test code = Platelet) 300 133-450 [facility] Hospit[id number] 17:38:00 Test Item Value Reference Range Interpretation Comments MPV (test code = MPV) 8.3 7.4-10.4 [facility] HospitalAmyicndVDUIMIKYCF7233-95-73 17:38:00 Test Item Value Reference Range Interpretation Comments NRBCs # (test code = NRBCs #) 0.1 0.4-2.2 [facility] HospitalYtultigQQUXJZEPKS0485-40-61 17:38:00 Test Item Value Reference Range Interpretation Comments Results (test code = Reported (02/18/20 12:38 Results) PM) [facility] HospitalBhloyojTKPTYPRRQW2012-09-45 17:38:00 Test Item Value Reference Range Interpretation Comments Neutrophil % (test code = Neutrophil %) 62.2 45.0-75.0 [facility] HospitalFnhpljdHGGWUHLGAZ7987-84-20 17:38:00 Test Item Value Reference Range Interpretation Comments Monocyte % (test code = Monocyte %) 6.8 2.0-12.0 [facility] HospitalVtqiadwCDVMCDAAGK5549-84-32 17:38:00 Test Item Value Reference Range Interpretation Comments Lymphocyte % (test code = Lymphocyte %) 26.9 20.0-40.0 [facility] HospitalVdfyutsMTTQHPTERW1713-67-78 17:38:00 Test Item Value Reference Range Interpretation Comments Eosinophil # (test code 3.6 See_Comment [Au tomated message] The = Eosinophil #) system which generated this result tra nsmitted reference range : <=4.0. The reference r karan was not used to int erpret this result as normal/abnormal . [facility] HospitalUwczjcxSEOVGMBXLS0010-03-07 17:38:00 Test Item Value Reference Range Interpretation Comments Basophil % (test code = 0.5 See_Comment [Au tomated message] The Basophil %) system which ge nerated this result tra nsmitted reference range : <=1.0. The reference r karan was not used to int erpret this result as normal/abnormal . [facility] HospitalOlaitcnOPNYQCXQUE6641-88-02 17:38:00 Test Item Value Reference Range Interpretation Comments Neutrophil # (test code = Neutrophil #) 4.0 1.5-8.1 [facility] Hospit[id number] 17:38:00 Test Item Value Reference Range Interpretation Comments Lymphocyte # (test code = Lymphocyte #) 1.7 1.0-5.5 [facility] HospitalZpweffyYJOLXYHPDA5409-01-12 17:38:00 Test Item Value Reference Range Interpretation Comments Monocyte # (test code = 0.4 See_Comment [Au tomated message] The Monocyte #) system which ge nerated this result tra nsmitted reference range : <=0.8. The reference r karan was not used to int erpret this result as normal/abnormal . [facility] Hospit[id number] 17:38:00 Test Item Value Reference Range Interpretation Comments Eosinophil % (test code 0.2 See_Comment [Au tomated message] The = Eosinophil %) system which generated this result tra nsmitted reference range : <=0.5. The reference r karan was not used to int erpret this result as normal/abnormal . [facility]SeklchoFNHIBOVAZE1447-51-27 17:38:00 Test Item Value Reference Range Interpretation Comments Results (test code = Reported (02/18/20 12:38 Results) PM) Naresh Segovia
[2022-07-16] MEDS ORDERED: KETOROLAC 30 MG/ML INJ ONE (18:17)
--- NOTE | 2022-07-16 18:22 | EDPHYS ---
Physician Documentation [facility] Name: Trudi Villavicencio Age: 47 yrs Sex: Female : 1975 Arrival Date: 07/16/2022 Time: 17:55 Bed 16 Private MD: ED Physician Jacinto Thomas HPI: 07/16 18:10 This 47 yrs old Female presents to ER via Ambulatory with complaints of Pain All Over. en 18:10 47 yo F with chronic neck and back pain presents to ED for exacerbation of pain and en "morphine." Denies new trauma. No numbness, tingling, weakness. Pain intermittently radiates to right arm and down right leg, but is able to walk with a cane. Denies bowel or bladder incontinence. Pt has disability appt in September, but is currently unable to f/u with PCP because had no insurance, no family support, and no income. . Historical: - Allergies: 18:06 Aspirin; kr3 18:06 Codeine; kr3 18:06 Topamax; kr3 18:06 tramadol; kr3 - PMHx: 18:06 gastritis; neuropathy; osteoarthritis; Radiculopathy; kr3 - PSHx: 18:06 breast reduction; kr3 - Immunization history:: Adult Immunizations not up to date. - Social history:: Smoking status: Patient denies any tobacco usage or history of. ROS: 18:10 Constitutional: Negative for fever, chills, and weight loss, Neck: right sided neck en pain radiating to right arm Back: Exacerbation of low back pain 18:10 All other systems are negative. Exam: 18:10 Constitutional: This is a well developed, well nourished patient who is awake, alert, en and in no acute distress. Head/Face: Normocephalic, atraumatic. Eyes: Pupils equal round and reactive to light, extra-ocular motions intact. Lids and lashes normal. Conjunctiva and sclera are non-icteric and not injected. Cornea within normal limits. Periorbital areas with no swelling, redness, or edema. Neck: Pain out of proportion to exam. Pt jumping off of chair with minimal palpation of overlying shirt. Cardiovascular: Regular rate and rhythm with a normal S1 and S2. No gallops, murmurs, or rubs. Normal PMI, no JVD. No pulse deficits. Respiratory: Lungs have equal breath sounds bilaterally, clear to auscultation and percussion. No rales, rhonchi or wheezes noted. No increased work of breathing, no retractions or nasal flaring. Abdomen/GI: Soft, non-tender, with normal bowel sounds. No distension or tympany. No guarding or rebound. No evidence of tenderness throughout. Back: Pain out of proportion to exam. Pain with minimal palpation of overlying shirt. No CVA TTP. MS/ Extremity: 5/5 carder blankets and FROM BUE. No wrist drop. 5/5 PF/DF/EHL. No foot drop. Antalgic gait with cane. 2+ patellar and brachial reflexes. Normal peroneal nerve sensation. 2+ distal pulses Neuro: Awake and alert, GCS 15, oriented to person, place, time, and situation. Cranial nerves II-XII grossly intact. Motor strength 5/5 in all extremities. Sensory grossly intact. Cerebellar exam normal. Vital Signs: 18:08 BP 126 / 82; Pulse 81; Resp 18; Temp 98.6(TE); Pulse Ox 100% on R/A; Weight 108.41 kg; kr3 Height 5 ft. 3 in. (160.02 cm); Pain 9/10; 18:08 Body Mass Index 42.34 (108.41 kg, 160.02 cm) kr3 MDM: 18:01 Patient medically screened. en 18:10 Differential diagnosis: acute exacerbation of chronic pain. No new trauma and normal en neuro exam. XR, CT, MRI considered but not warranted. Spoke with patient regarding pain management policy for chronic pain. Narcotics will not be provided for chronic pain. Offered IM toradol, which patient is amenable to but she declined gabapentin. Unable to give muscle relaxers because she is driving. Pt does not have funds to fill Rx's but will give information for Good RX and provide Rx's in case she is able to find assistance. No new work up required at this time. Administered Medications: 18:21 Drug: Ketorolac 60 mg Route: IM; Site: right gluteus; kc6 18:36 Follow up: Response: No adverse reaction kc6 Disposition: 18:54 Co-signature as Attending Physician, Jacinto Thomas MD. rn Disposition Summary: 01/01/23 18:22 Discharge Ordered Location: Home en Problem: chronic en Symptoms: are unchanged en Condition: Stable en Diagnosis - acute exacerbation of chronic back pain en Followup: en - With: Private Physician - When: As needed - Reason: Re-evaluation by your physician Discharge Instructions: - Discharge Summary Sheet en - Chronic Back Pain en Forms: - Medication Reconciliation Form en - Thank You Letter en - Antibiotic Education en - Prescription Opioid Use en Prescriptions: - ketorolac 10 mg Oral tablet - take 1 tablet by ORAL route every 4-6 hours not to exceed 40 mg in 24hrs; 20 en tablet; Refills: 0, Product Selection Permitted - methocarbamol 750 mg Oral Tablet - take 1 tablet by ORAL route 3 times per day; 20 tablet; Refills: 0, Product en Selection Permitted Signatures: Jacinto Thomas MD MD rn [place]kirk, Elizabeth, PA PA en Reid, Kelley RN RN kr3 Ameena Servin RN RN kc6
--- NOTE | 2022-07-16 18:22 | ER ---
Nurse's Notes [facility] Name: Trudi Villavicencio Age: 47 yrs Sex: Female : 1975 Arrival Date: 07/16/2022 Time: 17:55 Bed 16 Private MD: Diagnosis: acute exacerbation of chronic back pain Presentation: 07/16 18:01 Chief complaint: Patient states: I have a bad back to begin with but my lower back by kr3 my tailbone is worse today, also my neck and arm hurt as well. Chief complaint: Patient states: I tried to take motrin to help with the pain but it doesn't help. 18:01 Method Of Arrival: Ambulatory kr3 18:08 Coronavirus screen: Vaccine status: Patient reports receiving the 2nd dose of the covid kr3 vaccine. Client denies travel out of the [place] in the last 14 days. Ebola Screen: Patient denies travel to an Ebola-affected area in the 21 days before illness onset. Initial Sepsis Screen: Does the patient meet any 2 criteria? No. Patient's initial sepsis screen is negative. Does the patient have a suspected source of infection? No. Patient's initial sepsis screen is negative. Risk Assessment: Do you want to hurt yourself or someone else? Patient reports no desire to harm self or others. Onset of symptoms was July 14, 2022. 18:08 Acuity: HOWIE 4 kr3 Triage Assessment: 18:10 General: Appears distressed, uncomfortable, Behavior is cooperative, anxious, crying. kr3 Pain: Complains of pain in back. Historical: - Allergies: 18:06 Aspirin; kr3 18:06 Codeine; kr3 18:06 Topamax; kr3 18:06 tramadol; kr3 - PMHx: 18:06 gastritis; neuropathy; osteoarthritis; Radiculopathy; kr3 - PSHx: 18:06 breast reduction; kr3 - Immunization history:: Adult Immunizations not up to date. - Social history:: Smoking status: Patient denies any tobacco usage or history of. Screenin:23 [facility] ED Fall Risk Assessment (Adult) History of falling in the last 3 months, kc6 including since admission No falls in past 3 months (0 pts) Confusion or Disorientation No (0 pts) Intoxicated or Sedated No (0 pts) Impaired Gait No (0 pts) Mobility Assist Device Used Yes (1 pt) Altered Elimination No (0 pt) Score/Fall Risk Level 0 - 2 = Low Risk Oriented to surroundings, Maintained a safe environment, Educated pt \T\ family on fall prevention, incl call for assistance when getting out of bed, Assessed \T\ reinforced patient's understanding of fall precautions, Hourly rounding (assess needs \T\ fall precautionary measures) done, Used ambulatory aids as needed (educated on \T\ assisted with). Abuse screen: Denies threats or abuse. Denies injuries from another. Nutritional screening: No deficits noted. Tuberculosis screening: No symptoms or risk factors identified. Assessment: 18:21 General: Appears in no apparent distress. uncomfortable, Behavior is calm, cooperative, kc6 appropriate for age. Pain: Complains of pain in lumbar area, left low back, right low back and right shoulder Pain does not radiate. Pain currently is 7 out of 10 on a pain scale. Quality of pain is described as aching, dull, Is chronic, Alleviated by medications, Aggravated by increased activity, repositioning, Noted to be resistant to movement, Also complains of no other associated symptoms. Neuro: [place] Agitation-Sedation Scale (RASS): 0 - Alert and Calm Level of Consciousness is awake, alert, obeys commands, Oriented to person, place, time, situation, Appropriate for age. Cardiovascular: Heart tones S1 S2 present Capillary refill < 3 seconds. Respiratory: Airway is patent Trachea midline Respiratory effort is even, unlabored, Respiratory pattern is regular, symmetrical, Breath sounds are clear bilaterally. GI: No signs and/or symptoms were reported involving the gastrointestinal system. : No signs and/or symptoms were reported regarding the genitourinary system. EENT: No signs and/or symptoms were reported regarding the EENT system. Derm: No signs and/or symptoms reported regarding the dermatologic system. Skin is intact, Skin is pink, warm \T\ dry. Musculoskeletal: No signs and/or symptoms reported regarding the musculoskeletal system. Circulation, motion, and sensation intact. Capillary refill < 3 seconds, Range of motion: intact in all extremities. Vital Signs: 18:08 BP 126 / 82; Pulse 81; Resp 18; Temp 98.6(TE); Pulse Ox 100% on R/A; Weight 108.41 kg; kr3 Height 5 ft. 3 in. (160.02 cm); Pain 9/10; 18:08 Body Mass Index 42.34 (108.41 kg, 160.02 cm) kr3 ED Course: 17:55 Patient arrived in ED. mr 18:01 Lela Escobar PA is PHCP. en 18:01 Jacinto Thomas MD is Attending Physician. en 18:10 Triage completed. kr3 18:12 Ameena Servin, RN is Primary Nurse. kc6 18:24 Arm band placed on. kc6 18:24 Patient has correct armband on for positive identification. Bed in low position. Call kc6 light in reach. Side rails up X 1. 18:25 No provider procedures requiring assistance completed. Patient did not have IV access kc6 during this emergency room visit. Administered Medications: 18:21 Drug: Ketorolac 60 mg Route: IM; Site: right gluteus; kc6 18:36 Follow up: Response: No adverse reaction kc6 Medication: 18:26 VIS not applicable for this client. kc6 Outcome: 18:22 Discharge ordered by . en 18:36 Discharged to home ambulatory. kc6 18:36 Condition: stable 18:36 Discharge instructions given to patient, Instructed on discharge instructions, medication usage, Demonstrated understanding of instructions, medications, Prescriptions given X 2. 18:37 Patient left the ED. kc6 Signatures: Jair Aileen mr [place] PA en Celi Gomez RN RN kr3 Ameena Servin, RN RN kc6
[2022-07-16 18:41] VITALS: BP 126/82; TEMP 98.6; O2SAT 100
== END 2022-07-16 18:37 | disposition home or self-care (01) ==
LOC: ER 17:50
DX: M54.9 Dorsalgia, unspecified (principal)
CPT/HCPCS: 96372; 99283

== ENCOUNTER 2022-11-07 04:51 | Emergency (ER) | payer SELFPAY ==
--- OUTSIDE RECORDS SUMMARY | 2022-11-07 04:58 | XMS REPORT | Continuity of Care Document ---
:1975 Author Organization [facility] t Address [address] [place] [address] Care Team Providers Name Role Phone Asked, No Pcp Primary Care Physician Unavailable Danie Garcia Attending Clinician Unavailable ESTER PERES Attending Clinician Unavailable ALFONZO ALARCON Attending Clinician Unavailable Doctor Unassigned, [place] Attending Clinician Unavailable HAMZAH CAMPBELL Attending Clinician Unavailable CAT PRITCHETT Attending Clinician Unavailable Cat Pritchett DO Attending Clinician Marina PERALTA, Tony Hdz Attending Clinician Alfonzo Alarcon MD Attending Clinician [phone] Malcom Espinal Attending Clinician ROYCE PRUETT [...] Date Expiration Date S ource [employer] [place] [id number] 2020 - OUT OF STATE 0 00:00:00 BCBS 2 [id number] 2021 0 00:00:00 [employer] 6 [id number] 2020 Common Spiri t [employer] Shield of 00:00:00 - [facility] Center Problems Condition Condition Condition Status Onset Resolution [...] medial medial 00:00: g of this [place] meniscus meniscus 00 note Medica l of left of left might be Branch knee as knee as different current current from the injury, injury, original. 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 Center laterality , unspecifie d chronicity [id number] Anxiety Problem Common [facility] Acute Acute Problem Common bronchitis bronchitis Sp elana , - CHI unspecifie [facility] Essential Essential Problem Com mon hypertensi hypertensi Sp elana on on - [facility] Acute Acute Problem Common upper upper Spirit respirator respirator - CHI y y St infection infection, [place] es unspecifie Medica l d Center Disc Disc Disease Active Univers disease, disease, ity of degenerati degenerati [place] ve, lumbar ve, lumbar Me dical or or Branch lumbosacra lumbosacra l l [id number] History of Problem Co mmon hiatal Spirit hernia - [facility] Cervical Cervical Disease Active Unive rs herniated herniated ity of disc disc [facility] Asthma Uncomplica Problem Commo n without margaret Spirit status asthma, - CHI asthmaticu unspecifie St s asthma [facility] severity, Medical unspecifie Center d whether persistent Lumbar Lumbar Disease Active Univers herniated herniated ity of disc disc [facility] Cervical Cervical Disease Active Unive rs herniated herniated ity of disc disc [facility] Seasonal Seasonal Problem Commo n allergic allergic Spirit rhinitis rhinitis, - CHI unspecifie [facility] [id number] Depression Problem Co mmon with Spirit anxiety - [facility] [id number] Suicidal Problem Common ideation [facility] [id number] Non-intrac Problem Com mon table Spirit [facility] - [facility] d vomiting Center type [id number] Epigastric Problem Com mon pain [facility] [id number] Endometria Problem Co mmon l cancer [facility] [id number] Slurred Problem Commo n speech [facility] [id number] Moderate Problem Comm on asthma Spirit without - CHI complicati St on unspecifie Medica l d whether Center persistent [id number] Noncomplia Problem Co mmon nce with Spirit medication - CHI regimen [facility] [id number] Gastroesop Problem Co mmon hageal Spirit reflux - CHI disease [facility] esophagiti [facility] [id number] Chronic Problem Commo n pruritus [facility] Ankle pain Ankle Problem Active 2022-07-24 M emoria (finding) pain 12:01:02 l (finding) [place] Active Problem 07/24/2022 [facility] Asthma Asthma Problem Active 2022-07-24 Lev trupti (disorder) (disorder) 12:01:02 l Active [place]a Problem 07/24/2022 [facility] Gastritis Gastritis Problem Active 2022-07-24 Memoria (disorder) (disorder) 12:01:02 l Active [place] Problem 07/24/2022 [facility] Hemangioma Hemangiom Problem Active 2022-07-24 Memoria of a of 12:01:02 l intracrani intracrani He mckenna al al structure structure (disorder) (disorder) Active Problem 07/24/2022 [facility] Hypertensi Hypertens Problem Active 2022-07-24 Memoria ve shireen 12:01:02 l disorder, disorder, Herm mckenna systemic systemic arterial arterial (disorder) (disorder) Active Problem 07/24/2022 [facility] Hypothyroi Hypothyro Problem Active 2022-07-24 Memoria dism idism 12:01:02 l (disorder) (disorder) Vladimir ann Active Problem 07/24/2022 [facility] Lumbar Lumbar Problem Active 2022-07-24 Lev trupti radiculopa radiculopa 12:01:02 l thy thy Luca (disorder) (disorder) Active Problem 07/24/2022 [facility] Migraine Migraine Problem Active 2022-07-24 Memoria (disorder) (disorder) 12:01:02 l Active [place] Problem 07/24/2022 [facility] Morbid Morbid Problem Active 2022-07-24 Lev trupti obesity obesity 12:01:02 l (disorder) (disorder) He ann Active Problem 07/24/2022 [facility] Paresthesi Paresthes Problem Active 2022-07-24 Memoria a ia 12:01:02 l (finding) (finding) Herm mckenna Active Problem 07/24/2022 [facility] Peripheral Periphera Problem Active 2022-07-24 Memoria nerve l nerve 12:01:02 l disease disease [place] (disorder) (disorder) Active Problem 07/24/2022 [facility] 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 12:01:02 l (disorder) (disorder) Vladimir rmann Active Problem 07/24/2022 [facility] Osteochond Osteochond Problem Active U T ritis [...] Active U T pain pain Physici ans No known No known Disease Metho di active active st problems problems Hospit a l Pain of Pain of Problem Active [facility] left calf left calf Phys ici ans Edema, Edema, Problem Active [facility] lower lower Physici extremity extremity ans Plantar Plantar Problem Active [facility] fasciitis fasciitis Phys ici ans Left ankle Left ankle Problem Active U T pain pain Physici ans Acid Acid Problem Active 2020-02-28 Memor ia [...] (disorder) Burak lozano Active Problem 02/28/2020 [facility] History of Past Illness Condition Condition Condition Status Onset Resolution Last Treating Co mments Source Name Details Category Date Date Treatment Clinician Date Nondisplac Nondispla Problem 2019-2020-02-28 2020-02-28 Memoria ed dome day dome 8-13 [...] ity of 00:00: [place] 00 Medical Branch Tramadol Propensi Active Rosi ty [...] Yung Syndrome codeine codeine Active Memoria l [place] aspirin aspirin Active Memoria l [place] Topamax Topamax Active Memoria l [place] traMADol traMADol Active Memori a l [place] Codeine Codeine Active Unknown [facility] topirama topirama Active Unknown Commo n te te [facility] aspirin aspirin Active Unknown [facility] codeine Allergy Active [facility] to drug Physici (finding ans ) Family History Family Member Diagnosis Comments Start Date Stop Date Source Natural father Diabetes [facility] Natural father Heart attack [facility] Maternal aunt Cancer [facility] ospital Maternal grandmother Diabetes [facility] Maternal grandmother Stroke [facility] Natural mother Heart attack [facility] Natural mother Heart disease [facility] Social History Social Habit Start Date Stop Date Quantity Comments Source History of Common Spirit - Tobacco Use [facility] Sex Assigned At Common Sp elana - [facility] Exposure to Not sure Rosi armendariz SARS-CoV-2 (event) Tobacco use and 2021-05-19 2021-05-19 Smokeless tobacco Me thodist exposure 00:00:00 00:00:00 non-user Hospital Alcohol intake 2021-05-19 2021-05-19 [facility] 00:[facility]:00:00 non-drinker Hospital (finding) Smoking Status Start Date Stop Date Source Tobacco smoking status [facility] Medications Ordered Filled Start Stop Current Ordering Indication Dosage Frequency Signature Comments Components Source Medication Medication Date Date Medication? 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 May repeat dose after 2 hours. Max dose 200 mg/ 24 hours, 152.4, cm, 03/16/21 8:31:00 CDT, Height, 112.727, kg, 03/16/21 8... ubrogepant 2020-0 Yes 100 mg = 1 M emoria 100 MG Oral 9-10 tab, PO, l Tablet 21:15: PRN, PRN [place] [Ubrelvy] 00 Other -See Comment, X 30 day, # 10 tab, 1 Refill(s), Pharmacy: [facility], For Migraine. May repeat dose after 2 hours. Max dose 200 mg/ 24 hours, 152.4, cm, 03/16/21 8:31:00 CDT, Height, 112.727, kg, 03/16/21 8... ubrogepant 2020-0 Yes 100 mg = 1 M emoria 100 MG Oral 9-10 tab, PO, l Tablet 21:15: PRN, PRN [place]a [Ubrelvy] 00 Other -See Comment, X 30 day, # 10 tab, 1 Refill(s), Pharmacy: [facility], For Migraine. May repeat dose after 2 hours. Max dose 200 mg/ 24 hours, 152.4, cm, 03/16/21 8:31:00 CDT, Height, 112.727, kg, 03/16/21 8... ubrogepant 2020-0 Yes 100 mg = 1 M ethodi (Ubrelvy) 9-10 tab, PO, st 100 mg 00:00: PRN, PRN Hospita tablet 00 Other -See l Comment, X 30 day, # 10 tab, 1 Refill(s), Pharmacy: [facility], For Migraine. May repeat dose after 2 hours. Max dose 200 mg/ 24 hours, 152.4, cm, 03/16/21 8:31:00 CDT, Height, 112.727, kg, 03/16/21 8... ubrogepant 2021-0 Yes 100 mg = 1 M ethodi (Ubrelvy) 9-10 tab, PO, st 100 mg 00:00: PRN, PRN Hospita tablet 00 Other -See l Comment, X 30 day, # 10 tab, 1 Refill(s), Pharmacy: [facility], For Migraine. May repeat dose after 2 hours. Max dose 200 mg/ 24 hours, 152.4, cm, 03/16/21 8:31:00 CDT, Height, 112.727, kg, 03/16/21 8... ubrogepant 2021-0 Yes 100 mg = 1 M ethodi (Ubrelvy) 9-10 tab, PO, st 100 mg 00:00: PRN, PRN Hospita tablet 00 Other -See l Comment, X 30 day, # 10 tab, 1 Refill(s), Pharmacy: [facility], For Migraine. May repeat dose after 2 hours. Max dose 200 mg/ 24 hours, 152.4, cm, 03/16/21 8:31:00 CDT, Height, 112.727, kg, 03/16/21 8... ubrogepant 2021-0 Yes 100 mg = 1 M ethodi (Ubrelvy) 9-10 tab, PO, st 100 mg 00:00: PRN, PRN Hospita tablet 00 Other -See l Comment, X 30 day, # 10 tab, 1 Refill(s), Pharmacy: [facility], For Migraine. May repeat dose after 2 hours. Max dose 200 mg/ 24 hours, 152.4, cm, 03/16/21 8:31:00 CDT, Height, 112.727, kg, 03/16/21 8... ubrogepant 2021-0 Yes 100 mg = 1 M ethodi (Ubrelvy) 9-10 tab, PO, st 100 mg 00:00: PRN, PRN Hospita tablet 00 Other -See l Comment, X 30 day, # 10 tab, 1 Refill(s), Pharmacy: [facility], For Migraine. May repeat dose after 2 hours. Max dose 200 mg/ 24 hours, 152.4, cm, 03/16/21 8:31:00 CDT, Height, 112.727, kg, 03/16/21 8... ubrogepant 2021-0 Yes 100 mg = 1 M ethodi (Ubrelvy) 9-10 tab, PO, st 100 mg 00:00: PRN, PRN Hospita tablet 00 Other -See l Comment, X 30 day, # 10 tab, 1 Refill(s), Pharmacy: [facility], For Migraine. May repeat dose after 2 hours. Max dose 200 mg/ 24 hours, 152.4, cm, 03/16/21 8:31:00 CDT, Height, 112.727, kg, 03/16/21 8... ubrogepant 1-0 No 100 mg = 1 M emoria 100 MG Oral 9-03 tab, PO, l Tablet 16:30: PRN, PRN [place] [Ubrelvy] 00 Other -See Comment, X 30 day, # 10 tab, 1 Refill(s), Pharmacy: [facility], For Migraine. May repeat dose after 2 hours. Max dose 200 mg/ 24 hours, 152.4, cm, 03/16/21 8:31:00 CDT, Height, 112.727, kg, 03/16/21 8:... ubrogepant 1-0 No 100 mg = 1 M emoria 100 MG Oral 9-03 tab, PO, l Tablet 16:30: PRN, PRN [place] [Ubrelvy] 00 Other -See Comment, X 30 day, # 10 tab, 1 Refill(s), Pharmacy: [facility], For Migraine. May repeat dose after 2 hours. Max dose 200 mg/ 24 hours, 152.4, cm, 03/16/21 8:31:00 CDT, Height, 112.727, kg, 03/16/21 8:... ubrogepant 2020-0 No 100 mg = 1 M emoria 100 MG Oral 9-03 tab, PO, l Tablet 16:30: PRN, PRN [place] [Ubrelvy] 00 Other -See Comment, X 30 day, # 10 tab, 1 Refill(s), Pharmacy: [facility], For Migraine. May repeat dose after 2 hours. Max dose 200 mg/ 24 hours, 152.4, cm, 03/16/21 8:31:00 CDT, Height, 112.727, kg, 03/16/21 8:... amitriptyli 0 Yes = 1 tab, Me moria ne 75 mg 9-01 PO, l oral tablet 23:57: Bedtime, # Luc[place] 00 30 ea, 5 Refill(s), Pharmacy: [facility], 152.4, cm, 03/16/21 8:31:00 CDT, Height, 112.727, kg, 03/16/21 8:31:00 CDT, Weight amitriptyli 2020-0 Yes = 1 tab, Me moria ne 75 mg 9-01 PO, l oral tablet 23:57: Bedtime, # Luc[place] 00 30 ea, 5 Refill(s), Pharmacy: [facility], 152.4, cm, 03/16/21 8:31:00 CDT, Height, 112.727, kg, 03/16/21 8:31:00 CDT, Weight amitriptyli 2020-0 Yes = 1 tab, Me moria ne 75 mg 9-01 PO, l oral tablet 23:57: Bedtime, # [place] 00 30 ea, 5 Refill(s), Pharmacy: [facility], 152.4, cm, 03/16/21 8:31:00 CDT, Height, 112.727, kg, 03/16/21 8:31:00 CDT, Weight Amitriptyli 2020-0 Yes amitriptyl Rosi ne HCl 75 9-01 ine 75 mg Seybo ld MG oral 00:00: tablet Tablet 00 ubrogepant 0 No 100 mg = 1 M emoria 100 MG Oral 8-23 tab, PO, l Tablet 21:26: PRN, PRN [place] [Ubrelvy] 00 Other -See Comment, X 30 day, # 10 tab, 1 Refill(s), Pharmacy: [facility], For Migraine. May repeat dose after 2 hours. Max dose 200 mg/ 24 hours, 152.4, cm, 02/01/21 13:49:00 CDT, Height, 116.818, kg, 02/01/21 1... ubrogepant No 100 mg = 1 M emoria 100 MG Oral 8-23 tab, PO, l Tablet 21:26: PRN, PRN [place] [Ubrelvy] 00 Other -See Comment, X 30 day, # 10 tab, 1 Refill(s), Pharmacy: [facility], For Migraine. May repeat dose after 2 hours. Max dose 200 mg/ 24 hours, 152.4, cm, 02/01/21 13:49:00 CDT, Height, 116.818, kg, 02/01/21 1... ubrogepant No 100 mg = 1 M emoria 100 MG Oral 8-23 tab, PO, l Tablet 21:26: PRN, PRN [place] [Ubrelvy] 00 Other -See Comment, X 30 day, # 10 tab, 1 Refill(s), Pharmacy: [facility], For Migraine. May repeat dose after 2 hours. Max dose 200 mg/ 24 hours, 152.4, cm, 02/01/21 13:49:00 CDT, Height, 116.818, kg, 02/01/21 1... Polytrim Polytrim 2020- No 1{drop_ QID Polytrim 02574-0.1 79081-3.1 02-2316 into_af 68839-8.1 UNIT/ML UNIT/ML 00:00: 00:00 fected_ UNIT/ML 00 :00 eye} ibuprofen Yes [facility]i (ADVIL) 600 8-04 st MG tablet 00:00: Hospita 00 l ibuprofen 2021-0 Yes Methodi (ADVIL) 600 8-04 st MG tablet 00:00: Hospita 00 l ibuprofen 1-0 Yes Methodi (ADVIL) 600 8-04 st MG tablet 00:00: Hospita 00 l ibuprofen 2021-0 Yes Methodi (ADVIL) 600 8-04 st MG tablet 00:00: Hospita 00 l ibuprofen 2021-0 Yes Methodi (ADVIL) 600 8-04 st MG tablet 00:00: Hospita 00 l ibuprofen 202-0 Yes Methodi (ADVIL) 600 8-04 st MG tablet 00:00: Hospita 00 l Ibuprofen 2020-0 Yes Rosi 600 MG oral 8-04 Seybold Tablet 00:00: 00 Cyclobenzap Cyclobenzap 2020- No 1{table QD Cyclobenza rine HCl 10 rine HCl 10 02-16 t_at_be dex HCl MG MG 00:00: 00:00 dtime_a 10 MG 00 :00 s_neede d} Cyclobenzap Cyclobenzap 2020- No 1{table QD Cyclobenza rine HCl 10 rine HCl 10 02-16 t_at_be dex HCl MG MG 00:00: 00:00 dtime_a 10 MG 00 :00 s_neede d} Cyclobenzap Cyclobenzap 2020- No 1{table QD Cyclobenza rine HCl 10 rine HCl 10 02-16 t_at_be dex HCl MG MG 00:00: 00:00 dtime_a 10 MG 00 :00 s_neede d} Cyclobenzap Cyclobenzap 2020- No 1{table QD Cyclobenza rine HCl 10 rine HCl 10 02-16 t_at_be dex HCl MG MG 00:00: 00:00 dtime_a 10 MG 00 :00 s_neede d} Cyclobenzap Cyclobenzap 2020- No 1{table QD Cyclobenza rine HCl 10 rine HCl 10 02-16 t_at_be dex HCl MG MG 00:00: 00:00 dtime_a 10 MG 00 :00 s_neede d} Ibuprofen Ibuprofen 2020- No BID Ibuprofen 600 MG 600 MG 02-16 600 MG 00:00: 00:00 00 :00 Ibuprofen Ibuprofen 2020-0 2020- No BID Ibuprofen 600 MG 600 MG 02-1618 600 MG 00:00: 00:00 00 :00 methylPREDN 2020-0 Yes [id number] 84mg Take 21 Univers ISolone 7-30 tablets by ity of (MEDROL, 00:00: mouth [place] GENARO,) 4 mg 00 SEE-INSTRU Med ical tablets CTIONS. Branch follow package directions methylPREDN 2020-0 Yes [id number] 84mg Take 21 Univers ISolone 7-30 tablets by ity of (MEDROL, 00:00: mouth [place] GENARO,) 4 mg 00 SEE-INSTRU Med ical tablets CTIONS. Branch follow package directions methylPREDN 2020-0 Yes [id number] 84mg Take 21 Univers ISolone 7-30 tablets by ity of (MEDROL, 00:00: mouth [place] GENARO,) 4 mg 00 SEE-INSTRU Med ical tablets CTIONS. Branch follow package directions methylPREDN 2020-0 Yes [id number] 84mg Take 21 Univers ISolone 7-30 tablets by ity of (MEDROL, 00:00: mouth [place] GENARO,) 4 mg 00 SEE-INSTRU Med ical tablets CTIONS. Branch follow package directions Levothyroxi Levothyroxi No QD Levothyrox ne Sodium ne Sodium 7- ine Sodium 150 MCG 150 MCG 00:00: 150 MCG 00 Levothyroxi Levothyroxi No QD Levothyrox ne Sodium ne Sodium 7- ine Sodium 150 MCG 150 MCG 00:00: 150 MCG 00 Levothyroxi Levothyroxi No QD Levothyrox ne Sodium ne Sodium 7- ine Sodium 150 MCG 150 MCG 00:00: 150 MCG 00 Levothyroxi Levothyroxi No QD Levothyrox ne Sodium ne Sodium 7- ine Sodium 150 MCG 150 MCG 00:00: 150 MCG 00 Levothyroxi Levothyroxi No QD Levothyrox ne Sodium ne Sodium 7- ine Sodium 150 MCG 150 MCG 00:00: 150 MCG 00 Levothyroxi Levothyroxi No QD Levothyrox ne Sodium ne Sodium 7 ine Sodium 150 MCG 150 MCG 00:00: 150 MCG 00 Levothyroxi Levothyroxi No QD Levothyrox ne Sodium ne Sodium 7-02 ine Sodium 150 MCG 150 MCG 00:00: 150 MCG 00 Levothyroxi Levothyroxi 0 No QD Levothyrox ne Sodium ne Sodium 7-02 ine Sodium 150 MCG 150 MCG 00:00: 150 MCG 00 Levothyroxi Levothyroxi 0 No QD Levothyrox ne Sodium ne Sodium 7-02 ine Sodium 150 MCG 150 MCG 00:00: 150 MCG 00 Levothyroxi Levothyroxi 0 No QD Levothyrox ne Sodium ne Sodium [...] mg 00 daily. Medical tablet Branch medroxyPROG 2020- Yes 20mg Take 2 Univers ESTERone 5-13 [...] 10 mg 00 daily. 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, Height, 113.636, kg, 09/24/20 13:34:00 TRANSPORTATION ASSOCIATE, Weight rizatriptan 1-0 Yes 5 mg = 1 Me moria 5 MG Oral 3-12 tab, PO, l Tablet 20:23: ONCE, PRN Burak n [Maxalt] 00 for migraine headache, # 9 tab, 1 Refill(s), Pharmacy: [facility], 160.02, cm, 09/24/20 13:34:00 TRANSPORTATION ASSOCIATE, Height, 113.636, kg, 09/24/20 13:34:00 TRANSPORTATION ASSOCIATE, Weight rizatriptan 1-0 Yes 5 mg = 1 Me moria 5 MG Oral 3-12 tab, PO, l Tablet 20:23: ONCE, PRN Burak n [Maxalt] 00 for migraine headache, # 9 tab, 1 Refill(s), Pharmacy: [facility], 160.02, cm, 09/24/20 13:34:00 TRANSPORTATION ASSOCIATE, Height, 113.636, kg, 09/24/20 13:34:00 TRANSPORTATION ASSOCIATE, Weight rizatriptan 1-0 Yes 5 mg = 1 Me moria 5 MG Oral 3-12 tab, PO, l Tablet 20:23: ONCE, PRN Burak n [Maxalt] 00 for migraine headache, # 9 tab, 1 Refill(s), Pharmacy: [facility], 160.02, cm, 09/24/20 13:34:00 TRANSPORTATION ASSOCIATE, Height, 113.636, kg, 09/24/20 13:34:00 TRANSPORTATION ASSOCIATE, Weight Rizatriptan 1-0 Yes rizatripta Rosi Benzoate 5 3-12 n 5 mg Seybold MG oral 00:00: tablet Tablet 00 TAKE 1 TABLET BY MOUTH ONCE DAILY NEEDED FOR HEADACHE MIGRAINE rizatriptan 2020-0 Yes 5 mg = 1 Me moria 5 MG Oral 9-15 tab, PO, l Tablet 22:44: ONCE, PRN Burak n [Maxalt] 00 for migraine headache, # 9 tab, 1 Refill(s), Pharmacy: [facility], 152.4, cm, 01/15/20 15:04:00 CDT, Height, 115.455, kg, 01/15/20 15:04:00 CDT, Weight rizatriptan 2020-0 Yes 5 mg = 1 Me moria 5 MG Oral 9-15 tab, PO, l Tablet 22:44: ONCE, PRN Burak n [Maxalt] 00 for migraine headache, # 9 tab, 1 Refill(s), Pharmacy: [facility], 152.4, cm, 01/15/20 15:04:00 CDT, Height, 115.455, kg, 01/15/20 15:04:00 CDT, Weight rizatriptan 2020-0 Yes 5 mg = 1 Me moria 5 MG Oral 9-15 tab, PO, l Tablet 22:44: ONCE, PRN Burak n [Maxalt] 00 for migraine headache, # 9 tab, 1 Refill(s), Pharmacy: [facility], 152.4, cm, 01/15/20 15:04:00 CDT, Height, 115.455, kg, 01/15/20 15:04:00 CDT, Weight Misc 2020-0 No 900 mL, Memoria Medication 8-13 Soln-IV, l 15:27: IV, Once, [place] 00 first dose 02/26/20 10:27:00 CDT, stop date 02/26/20 10:27:00 CDT Misc 2020-0 No 900 mL, Memoria Medication 8-13 Soln-IV, l 15:27: IV, Once, Luca 00 first dose 02/26/20 10:27:00 CDT, stop date 02/26/20 10:27:00 CDT Misc 2020-0 No 900 mL, Memoria Medication 8-13 Soln-IV, l 15:27: IV, Once, Luca 00 [...] Me moria 8-13 mL, l 15:20: Injection, [place] 00 IV Push, q15min PRN for nausea, order duration: 2 doses, first dose 02/26/20 10:20:00 CDT, stop date Limited # of times Promethazin 2020-0 No 12.5 mg = M emoria e 8-13 0.5 mL, l 15:20: Injection, Luca 00 IM, Once PRN for vomiting, first dose 02/26/20 10:20:00 CDT fentaNYL 2020-0 No 25 mcg = Memor ia 8-13 0.5 mL, l 14:50: Injection, [place] 00 IV, Once, first dose 02/26/20 9:50:00 [...] ia 8-13 0.5 mL, l 14:16: Injection, [place] 00 IV, Once, first dose 02/26/20 9:16:00 [...] Me moria 8-13 mL, l 12:53: Injection, 00 IV, Once, first dose 02/26/20 7:53:00 CDT, stop date 02/26/20 7:53:00 CDT dexamethaso 2020-0 No 8 mg = 2 Me moria ne 8-13 mL, l 12:53: Injection, [place] 00 IV, Once, first dose 02/26/20 7:53:00 [...] Me moria 8-13 mL, l 12:53: Injection, [place] 00 IV, Once, first dose 02/26/20 7:53:00 CDT, stop date 02/26/20 7:53:00 CDT dexamethaso 2020-0 No 8 mg = 2 Me moria ne 8-13 mL, l 12:53: Injection, [place] 00 IV, Once, first dose 02/26/20 7:53:00 [...] Me moria 8-13 mL, l 12:41: Injection, [place] 00 IV, Once, first dose 02/26/20 7:41:00 CDT, stop date 02/26/20 7:41:00 CDT propofol 2020-0 No 200 mg = Memor ia 8-13 20 mL, l 12:41: Emulsion, [place] 00 IV, Once, first dose 02/26/20 7:41:00 [...] Me moria 8-13 mL, l 12:41: Injection, [place] 00 IV, Once, first dose 02/26/20 7:41:00 CDT, stop date 02/26/20 7:41:00 CDT propofol 2020-0 No 200 mg = Memor ia 8-13 20 mL, l 12:41: Emulsion, [place] 00 IV, Once, first dose 02/26/20 7:41:00 [...] Mem oria 8-13 mL, l 12:35: Injection, [place] 00 IV, Once, first dose 02/26/20 7:35:00 CDT, stop date 02/26/20 7:35:00 CDT midazolam 2020-0 No 1 mg = 1 Lev trupti 8-13 mL, l 12:34: Injection, [place] 00 IV, Once, first dose 02/26/20 7:34:00 CDT, stop date 02/26/20 7:34:00 CDT midazolam 2020-0 No 1 mg = 1 Lev trupti 8-13 mL, l 12:34: Injection, [place] 00 IV, Once, first dose 02/26/20 7:34:00 CDT, stop date 02/26/20 7:34:00 CDT midazolam 2020-0 No 1 mg = 1 Lev trupti 8-13 mL, l 12:34: Injection, [place] 00 IV, Once, first dose 02/26/20 7:34:00 CDT, stop date 02/26/20 7:34:00 CDT midazolam 2020-0 No 1 mg = 1 Lev trupti 8-13 mL, l 12:26: Injection, [place] 00 IV, Once, first dose 02/26/20 7:26:00 [...] Mem oria 8-13 mL, l 12:25: Injection, [place] 00 IV, Once, first dose 02/26/20 7:25:00 CDT, stop date 02/26/20 7:25:00 CDT fentaNYL 2020-0 No 50 mcg = 1 Mem oria 8-13 mL, l 12:25: Injection, [place] 00 IV, Once, first dose 02/26/20 7:25:00 [...] gm, Memoria 8-13 Soln-IV, l 12:00: IV [place] 00 Piggyback, Once, infuse over 30 minutes, [...] Injection, l IV Start 11:28: [facility] 00 us, Once PRN for other (see comment), first dose 02/26/20 6:28:00 CDT LR 1,000 mL 2020-0 No 1,000 mL, M emoria 8- IV, 30 l 11:28: mL/hr, start date 02/26/20 6:28:00 CDT, 2.14, m2 Lidocaine 2020-0 No 0.2 mL, Memor ia 2% 0.2 mL 02-25 Injection, [facility] , Once PRN for other (see comment), first dose 02/26/20 6:28:00 CDT LR 1,000 mL 2020-0 No 1,000 mL, M emoria 8 IV, 30 l 11:28: mL/hr, start date 02/26/20 6:28:00 CDT, 2.14, m2 Lidocaine 2020-0 No 0.2 mL, Memor ia 2% 0.2 mL 02-25 Injection, l [facility] , Once PRN for other (see comment), [...] mg 8-05 tabs, l oral 17:04: Oral, [place] delayed 00 Daily, 0 release Refill(s), tablet GERD meloxicam 2020-0 Yes 7.5 mg = 1 Me moria 7.5 MG Oral 8-05 tabs, l Tablet 17:04: Oral, [place] 00 Daily, 0 Refill(s), joint pain amitriptyli 2020-0 Yes 75 mg = 1 M emoria ne 75 mg 8-05 tabs, l oral tablet 17:04: Oral, qHS, [place] 00 0 Refill(s), sleep levothyroxi 2020-0 Yes 25 mcg = 1 Memoria ne 25 mcg 8-05 tabs, l (0.025 mg) 17:04: Oral, [place] n oral tablet 00 Daily, 0 Refill(s), hypothyroi d rizatriptan 2020-0 Yes 5 mg = 1 Me moria 5 mg oral 8-05 tabs, l tablet 17:04: Oral, [place] 00 Daily, 0 Refill(s) pantoprazol 2020-0 Yes [...] tabs, l oral tablet 17:04: Oral, qHS, [place] 00 0 Refill(s), sleep levothyroxi 2020-0 Yes 25 mcg = 1 Memoria ne 25 mcg 8-05 tabs, l (0.025 mg) 17:04: Oral, Burak n oral tablet 00 Daily, 0 Refill(s), hypothyroi d rizatriptan 2020-0 Yes 5 mg = 1 Me moria 5 mg oral 8-05 tabs, l tablet 17:04: Oral, [place] 00 Daily, 0 Refill(s) pantoprazol 2019-0 Yes 40 mg = 1 M emoria [...] PO, l oral tablet 20:24: Bedtime, # [place] 00 30 ea, 5 Refill(s), Pharmacy: [facility], 152.4, cm, 01/15/20 15:04:00 CDT, Height, 115.455, kg, 01/15/20 15:04:00 CDT, Weight rizatriptan 2020-0 Yes 5 mg = 1 Me moria 5 MG Oral 7-02 tab, PO, l Tablet 20:24: ONCE, PRN Burak n [Maxalt] 00 for migraine headache, # 9 tab, 1 Refill(s), Pharmacy: [facility], 152.4, cm, 01/15/20 15:04:00 CDT, Height, 115.455, kg, 01/15/20 15:04:00 CDT, Weight amitriptyli 2020-0 Yes = 1 tab, Me moria ne 75 mg 7-02 PO, l oral tablet 20:24: Bedtime, # [place] 00 30 ea, 5 Refill(s), Pharmacy: [facility], 152.4, cm, 01/15/20 15:04:00 CDT, Height, 115.455, kg, 01/15/20 15:04:00 CDT, Weight rizatriptan 2020-0 Yes 5 mg = 1 Me moria 5 MG Oral 7-02 tab, PO, l Tablet 20:24: ONCE, PRN [place] n [Maxalt] 00 for migraine headache, # 9 tab, 1 Refill(s), Pharmacy: [facility], 152.4, cm, 01/15/20 15:04:00 CDT, Height, 115.455, kg, 01/15/20 15:04:00 CDT, Weight amitriptyli 2020-0 Yes = 1 tab, Me moria ne 75 mg 7-02 PO, l oral tablet 20:24: Bedtime, # [place] 00 30 ea, 5 Refill(s), Pharmacy: [facility], 152.4, cm, 01/15/20 15:04:00 CDT, Height, 115.455, kg, 01/15/20 15:04:00 CDT, Weight rizatriptan 2020-0 Yes 5 mg = 1 Me moria 5 MG Oral 7-02 tab, PO, l Tablet 20:24: ONCE, PRN Burak n [Maxalt] 00 for migraine headache, # 9 tab, 1 Refill(s), Pharmacy: [facility], 152.4, cm, 01/15/20 15:04:00 CDT, Height, 115.455, kg, 01/15/20 15:04:00 CDT, Weight amitriptyli 2020-0 Yes = 1 tab, Me moria ne 75 mg 5-19 PO, l oral tablet 21:06: Bedtime, # [place] 00 30 ea, 1 Refill(s), Pharmacy: [facility] rizatriptan 2020-0 Yes 5 mg = 1 Me moria 5 MG Oral 5-19 tab, PO, l Tablet 21:06: ONCE, PRN Burak n [Maxalt] 00 for migraine headache, # 9 tab, 1 Refill(s), Pharmacy: [place] [address] rizatriptan 2020-0 Yes 5 mg = 1 Me moria 5 MG Oral 5-19 tab, PO, l Tablet 21:06: ONCE, PRN [place]ak n [Maxalt] 00 for migraine headache, # 9 tab, 1 Refill(s), Pharmacy: [facility] amitriptyli 2020-0 Yes = 1 tab, Me moria ne 75 mg 5-19 PO, l oral tablet 21:06: Bedtime, # [place] 00 30 ea, 1 Refill(s), Pharmacy: [facility] rizatriptan 2020-0 Yes 5 mg = 1 Me moria 5 MG Oral 5-19 tab, PO, l Tablet 21:06: ONCE, PRN [place] n [Maxalt] 00 for migraine headache, # 9 tab, 1 Refill(s), Pharmacy: [facility] amitriptyli 2020-0 Yes = 1 tab, Me moria ne 75 mg 5-19 PO, l oral tablet 21:06: Bedtime, # [place] 00 30 ea, 1 Refill(s), Pharmacy: [facility] loratadine 2019-0 Yes [id number] 10mg Take 1 U nivers 10 mg [...] TABLET BY MOUTH ONCE DAILY sod Yes [id number] 1{bottl Use 1 Unive rs chlor-bicar 9-08 e} Bottle in ity of b-squeez 00:00: each [place] bottle 00 nostril 2 Medical (NEILMED (two) Branch SINUS RINSE times COMPLETE) daily. Use pkdv in hot shower 1 hour before bedtime loratadine Yes [id number] 10mg Take 1 U nivers 10 mg 9-08 tablet by ity of tablet 00:00: mouth [place] 00 daily. Medical Branch sod Yes [id number] 1{bottl Use 1 Unive rs chlor-bicar 9-08 e} Bottle in ity of b-squeez 00:00: each [place] bottle 00 nostril 2 Medical (NEILMED (two) Branch SINUS RINSE times COMPLETE) daily. Use pkdv in hot shower 1 hour before bedtime loratadine Yes [id number] 10mg Take 1 U nivers 10 mg 9-08 tablet by ity of tablet 00:00: mouth [place] 00 daily. Medical Branch sod Yes [id number] 1{bottl Use 1 Unive rs chlor-bicar 9-08 e} Bottle in ity of b-squeez 00:00: each [place] bottle 00 nostril 2 Medical (NEILMED (two) Branch SINUS RINSE times COMPLETE) daily. Use pkdv in hot shower 1 hour before bedtime loratadine 2018- Yes [id number] 10mg Take 1 U nivers 10 mg 9-08 tablet by ity of tablet 00:00: mouth [place] 00 daily. Medical Branch sod Yes [id number] 1{bottl Use 1 Unive rs chlor-bicar 9-08 e} Bottle in ity of b-squeez 00:00: each [place] bottle 00 nostril 2 Medical (NEILMED (two) Branch SINUS RINSE times COMPLETE) daily. Use pkdv in hot shower 1 hour before bedtime amitriptyli 2018- Yes 75 mg = 1 M emoria ne 75 mg 8-22 tab, PO, l oral tablet 18:27: Bedtime, # [place] 00 30 tab, 1 Refill(s), Pharmacy: [facility] amitriptyli 2018-0 Yes 75 mg = 1 M emoria ne 75 mg 8-22 tab, PO, l oral tablet 18:27: Bedtime, # [place] 00 30 tab, 1 Refill(s), Pharmacy: [facility] amitriptyli 0 Yes 75 mg = 1 M emoria ne 75 mg 8-22 tab, PO, l oral tablet 18:27: Bedtime, # [place] 00 30 tab, 1 Refill(s), Pharmacy: [facility] rizatriptan 2019-0 Yes 5 mg = 1 Me moria 5 MG Oral 8-02 tab, PO, l Tablet 20:24: ONCE, PRN [place] n [Maxalt] 09 for migraine headache, # 9 tab, 1 Refill(s), Pharmacy: [facility] rizatriptan 2019-0 Yes 5 mg = 1 Me moria 5 MG Oral 8-02 tab, PO, l Tablet 20:24: ONCE, PRN [place] n [Maxalt] 09 for migraine headache, # 9 tab, 1 Refill(s), Pharmacy: [facility] rizatriptan Yes 5 mg = 1 Me moria 5 MG Oral 8-02 tab, PO, l Tablet 20:24: ONCE, PRN [place] n [Maxalt] 09 for migraine headache, # 9 tab, 1 Refill(s), Pharmacy: [facility] thiamine Yes 100 mg = 1 Mem oria 100 mg oral 8-02 tab, PO, l tablet 20:23: Daily, X [place] 17 30 day, # 30 tab, 3 Refill(s), Pharmacy: [facility] thiamine Yes 100 mg = 1 Mem oria 100 mg oral 8-02 tab, PO, l tablet 20:23: Daily, X [place] 17 30 day, # 30 tab, 3 Refill(s), Pharmacy: [facility] thiamine Yes 100 mg = 1 Mem oria 100 mg oral 8-02 tab, PO, l tablet 20:23: Daily, X [place] 17 30 day, # 30 tab, 3 Refill(s), Pharmacy: [facility] cyanocobala Yes 1,000 Memor ia min 1000 8-02 microgram l mcg 20:23: = 1 tab, [place] sublingual 13 SL, Daily, tablet # 30 tab, 2 Refill(s), Pharmacy: [facility] cyanocobala Yes 1,000 Memor ia min 1000 8-02 microgram l mcg 20:23: = 1 tab, [place] sublingual 13 SL, Daily, tablet # 30 tab, 2 Refill(s), Pharmacy: [facility] cyanocobala Yes 1,000 Memor ia min 1000 8-02 microgram l mcg 20:23: = 1 tab, [place] sublingual 13 SL, Daily, tablet # 30 tab, 2 Refill(s), Pharmacy: [facility] amitriptyli Yes 50 mg = 1 M emoria ne 50 mg 8-02 tab, PO, l oral tablet 20:23: Bedtime, # [place] 09 30 tab, 1 Refill(s), Pharmacy: [facility] amitriptyli Yes 50 mg = 1 M emoria ne 50 mg 8-02 tab, PO, l oral tablet 20:23: Bedtime, # [place] 30 tab, 1 Refill(s), Pharmacy: [facility] amitriptyli Yes 50 mg = 1 M emoria ne 50 mg 8-02 tab, PO, l oral tablet 20:23: Bedtime, # [place] 30 tab, 1 Refill(s), Pharmacy: [facility] rizatriptan Yes rizatripta Methodi (MAXALT) [...] day, # 6 tab, 1 Refill(s), Pharmacy: [facility] amitriptyli 2019-0 No 50 mg = 1 M emoria ne 50 mg 7-13 tab, PO, l oral tablet 01:53: Bedtime, # [place] 00 30 tab, 1 Refill(s), Pharmacy: [facility] rizatriptan 2019-0 No 5 mg = 1 Me moria 5 MG Oral 7-13 tab, PO, l Tablet 01:53: Daily, PRN [place]ia nn [Maxalt] 00 for migraine headache, X 6 day, # 6 tab, 1 Refill(s), Pharmacy: [facility] amitriptyli 2019-0 No 50 mg = 1 M emoria ne 50 mg 7-13 tab, PO, l oral tablet 01:53: Bedtime, # [place] 00 30 tab, 1 Refill(s), Pharmacy: [facility] rizatriptan 2019-0 No 5 mg = 1 Me moria 5 MG Oral 7-13 tab, PO, l Tablet 01:53: Daily, PRN [place] nn [Maxalt] 00 for migraine headache, X 6 day, # 6 tab, 1 Refill(s), Pharmacy: [facility] amitriptyli 2019-0 No 50 mg = 1 M emoria ne 50 mg 7-13 tab, PO, l oral tablet 01:53: Bedtime, # [place] 00 30 tab, 1 Refill(s), Pharmacy: [facility] frovatripta 2019-0 No 2.5 mg = 1 Memoria n 2.5 mg 6-27 tab, PO, l oral tablet 15:37: Daily, PRN [place] 00 for migraine headache, May repeat another dose at least 2 hours after the first dose, X 3 day, # 9 tab, 2 Refill(s), Pharmacy: [facility] frovatripta 2019-0 No 2.5 mg = 1 Memoria n 2.5 mg 6-27 tab, PO, l oral tablet 15:37: Daily, PRN [place] 00 for migraine headache, May repeat another dose at least 2 hours after the first dose, X 3 day, # 9 tab, 2 Refill(s), Pharmacy: [facility] frovatripta 2019-0 No 2.5 mg = 1 Memoria n 2.5 mg 6-27 tab, PO, l oral tablet 15:37: Daily, PRN [place] 00 for migraine headache, May repeat another dose at least 2 hours after the first dose, X 3 day, # 9 tab, 2 Refill(s), Pharmacy: [facility] eletriptan No See Memoria 40 MG Oral 6-25 Instructio l Tablet 23:35: ns, PO, [place] [Relpax] 00 Take 1-2 tabs orally at onset of migraine, may repeat dose once in 2 hours, X 3 day, # 6 tab, 1 Refill(s), Pharmacy: [facility] eletriptan No See Memoria 40 MG Oral 6-25 Instructio l Tablet 23:35: ns, PO, [place] [Relpax] 00 Take 1-2 tabs orally at onset of migraine, may repeat dose once in 2 hours, X 3 day, # 6 tab, 1 Refill(s), Pharmacy: [facility] eletriptan No See Memoria 40 MG Oral 6-25 Instructio l Tablet 23:35: ns, PO, [place] [Relpax] 00 Take 1-2 tabs orally at onset of migraine, may repeat dose once in 2 hours, X 3 day, # 6 tab, 1 Refill(s), Pharmacy: [facility] amitriptyli Yes 25 mg = 1 M emoria ne 25 mg 6-11 tab, PO, l oral tablet 21:16: Bedtime, # [place] 00 30 tab, 3 Refill(s), Pharmacy: [facility] amitriptyli Yes 25 mg = 1 M emoria ne 25 mg 6-11 tab, PO, l oral tablet 21:16: Bedtime, # [place] 00 30 tab, 3 Refill(s), Pharmacy: [facility] amitriptyli Yes 25 mg = 1 M emoria ne 25 mg 6-11 tab, PO, l oral tablet 21:16: Bedtime, # [place] 00 30 tab, 3 Refill(s), Pharmacy: [facility] cyanocobala Yes 1,000 Memor ia min 1000 6-07 microgram l mcg 19:39: = 1 tab, [place] sublingual 00 SL, Daily, tablet # 30 tab, 2 Refill(s), Pharmacy: [facility] cyanocobala Yes 1,000 Memor ia min 1000 6-07 microgram l mcg 19:39: = 1 tab, [place] sublingual 00 SL, Daily, tablet # 30 tab, 2 Refill(s), Pharmacy: [facility] cyanocobala Yes 1,000 Memor ia min 1000 6-07 microgram l mcg 19:39: = 1 tab, [place] sublingual 00 SL, Daily, tablet # 30 tab, 2 Refill(s), Pharmacy: [facility] thiamine Yes 100 mg = 1 Mem oria 100 mg oral 5-17 tab, PO, l tablet 18:13: Daily, X [place] 00 30 day, # 30 tab, 3 Refill(s), Pharmacy: [facility] thiamine Yes 100 mg = 1 Mem oria 100 mg oral 5-17 tab, PO, l tablet 18:13: Daily, X [place] 00 30 day, # 30 tab, 3 Refill(s), Pharmacy: [place] [address] thiamine Yes 100 mg = 1 Mem oria 100 mg oral 5-17 tab, PO, l tablet 18:13: Daily, X [place] 00 30 day, # 30 tab, 3 Refill(s), Pharmacy: [facility] amitriptyli Yes 10 mg = 1 M emoria ne 10 mg 5-10 tab, PO, l oral tablet 20:44: Bedtime, # [place] 00 30 tab, 3 Refill(s), Pharmacy: [facility] amitriptyli Yes 10 mg = 1 M emoria ne 10 mg 5-10 tab, PO, l oral tablet 20:44: Bedtime, # [place] 00 30 tab, 3 Refill(s), Pharmacy: [facility] amitriptyli Yes 10 mg = 1 M emoria ne 10 mg 5-10 tab, PO, l oral tablet 20:44: Bedtime, # [place] 00 30 tab, 3 Refill(s), Pharmacy: [facility] gabapentin 2019-0 Yes 300 mg = 1 M emoria 300 MG Oral 5-10 cap, PO, l Capsule 20:28: BID, # 90 Antonia nn 00 cap, 1 Refill(s) cyclobenzap 2019-0 No 10 mg = 1 M emoria rine 10 mg 5-10 tab, PO, l oral tablet 20:28: TID, PRN [place] 00 for spasms, # 30 tab, 0 Refill(s) levothyroxi 2018-0 Yes 50 Memori a ne 50 mcg 5-10 microgram l (0.05 mg) 20:28: = 1 tab, Herm mckenna oral tablet 00 PO, Daily, # 30 tab, 0 Refill(s) escitalopra 2018-0 Yes 20 mg = 1 M emoria m 20 mg 5-10 tab, PO, l oral tablet 20:28: Daily, # [place] 00 30 tab, 0 Refill(s) gabapentin 2018-0 Yes 300 mg = 1 M emoria 300 mg oral 5-10 cap, PO, l capsule 20:28: BID, # 90 Antonia nn 00 cap, 1 Refill(s) gabapentin 2018-0 Yes 300 mg = 1 M emoria 300 MG Oral 5-10 cap, PO, l Capsule 20:28: BID, # 90 Antonia nn 00 cap, 1 Refill(s) cyclobenzap 0 No 10 mg = 1 M emoria [...] tablet # 30 tab, 0 Refill(s) levothyroxi 2018- Yes 50 Method i ne 5-[address] (SYNTHROID) 00:00: = 1 tab, Ho spita 50 mcg 00 PO, Daily, l tablet # 30 tab, 0 Refill(s) levothyroxi 2018- Yes 50 Method i ne 5-10 microgram [...] tablet 00 daily. Medical Branch bisoprolol Yes [id number] 10mg Take 1 U nivers 10 mg 1-11 tablet by ity of tablet 00:00: mouth [place] 00 daily. Medical Branch cyclobenzap Yes [id number] 10mg Take 1 Univers rine 10 mg 1-11 tablet by ity of tablet 00:00: mouth at [place] 00 bedtime. Medical Branch bisoprolol Yes [id number] 10mg Take 1 U nivers 10 mg 1-11 tablet by ity of tablet 00:00: mouth [place] 00 daily. Medical Branch cyclobenzap Yes [id number] 10mg Take 1 Univers rine 10 mg 1-11 tablet by ity of tablet 00:00: mouth at [place] 00 bedtime. Medical Branch bisoprolol Yes [id number] 10mg Take 1 U nivers 10 mg 1-11 tablet by ity of tablet 00:00: mouth [place] 00 daily. Medical Branch cyclobenzap Yes [id number] 10mg Take 1 Univers rine 10 mg 1-11 tablet by ity of tablet 00:00: mouth at [place] 00 bedtime. Medical Branch bisoprolol Yes [id number] 10mg Take 1 U nivers 10 mg 1-11 tablet by ity of tablet 00:00: mouth [place] 00 daily. Medical Branch cyclobenzap Yes [id number] 10mg Take 1 Univers rine 10 mg 1-11 tablet by ity of tablet 00:00: mouth at [place] 00 bedtime. Medical Branch bisoprolol Yes 1 [...] tablet 00:00: Once a day Ho spita l bisoprolol Yes 1 tablet Met hodi [...] Ho spita 00 l albuterol 2015-07 Yes Univers 2.5 mg /3 [...] on inhaler Medical Branch albuterol 2015-07 Yes Univers 2.5 [...] mg 00:00: every [place] tablet 00 evening. [facility] Branch montelukast 2015-07 Yes 10mg Take 10 mg Univers (SINGULAIR) -03 by mouth ity of 10 mg 00:00: every [place] tablet 00 evening. [facility] Branch montelukast 2015-07 Yes 10mg Take 10 mg Univers (SINGULAIR) 1-03 by mouth ity of 10 mg 00:00: every [place] tablet 00 evening. Medical Branch montelukast 2016- Yes 10mg Take 10 mg Univers (SINGULAIR) -03 by mouth ity of 10 mg 00:00: every [place] tablet 00 evening. Medical Branch fluticasone 0 Yes Univer s 50 9-02 ity of mcg/actuati 00:00: [place] on nasal 00 Medical spray Branch fluticasone 0 Yes Univer s 50 9-02 ity of mcg/actuati 00:00: [place] on nasal 00 Medical spray Branch fluticasone 0 Yes Univer s 50 9-02 ity of mcg/actuati 00:00: [place] on nasal 00 Medical spray Branch fluticasone 0 Yes Univer s 50 9-02 ity of [...] nasal ion nasal spray spray,susp ension fluticasone 2015- Yes fluticason Methodi propionate 03-[address] (FLONASE) 00:00: propionate Ho spita 50 00 50 l mcg/actuati mcg/actuat on nasal ion nasal spray spray,susp ension fluticasone Yes fluticason Methodi propionate 03-[address] (FLONASE) 00:00: propionate Ho spita 50 00 50 l mcg/actuati mcg/actuat on nasal ion nasal spray spray,susp ension Cyclobenzap Cyclobenzap No Cyclobenza rine HCl 10 [...] ine HCl 75 MG MG dtime} MG Levothyroxi Levothyroxi Yes M.D. U T ne Sodium ne Sodium Physi ci TABS TABS ans Rizatriptan Rizatriptan No Rizatripta Benzoate Benzoate n Benzoate Meloxicam Meloxicam Yes M.D. [place] TABS TABS Physici ans hydrOXYzine hydrOXYzine No hydrOXYzin HCl 10 MG HCl 10 MG e HCl 10 MG Amitriptyli Amitriptyli Yes M.D. U T ne HCl TABS ne HCl TABS P hysici ans Pantoprazol Pantoprazol No 1{table QD Pantoprazo e [...] (2.5 MG/3ML) MG/3ML) MG/3ML) 0.083% 0.083% 0.083% Immunizations Ordered Filled Immunization Date Status Comments [facility] e Immunization Name Name Covid-19 Vaccine 2021-03-31 Completed Rosi esposito (Moderna), 00:00:00 Mrna-lnp, Shade Protein, Pf, 100 Mcg/0.5ml,IM Covid-19 Vaccine 2021-03-02 Completed Rosi esposito (Moderna), 00:00:00 Mrna-lnp, Shade Protein, Pf, 100 Mcg/0.5ml,IM TDAP 2016-07-24 Completed [facility] 00:00:00 [facility] Influenza Virus 2016-07-24 Completed Universit y of Vaccine Quad IM 3+ 00:00:00 [facility] TDAP 2016-07-24 Completed University 00:00:00 [facility] Influenza Virus 2016-07-24 Completed Universit y of Vaccine Quad IM 3+ 00:00:00 [facility] TDAP 2016-07-24 Completed University 00:00:00 [facility] Influenza Virus 2016-07-24 Completed Universit y of Vaccine Quad IM 3+ 00:00:00 [facility] TDAP 2016-07-24 Completed University 00:00:00 [facility] Influenza Virus 2016-07-24 Completed Universit y of Vaccine Quad IM 3+ 00:00:00 [facility] Influenza Virus 2016-07-24 Completed Rosi solano Vaccine, No 00:00:00 Preserv, age 6 months and up Tdap- (Boostrix, 2016-07-24 Completed Rosi esposito Adacel) 00:00:00 Tdap- (Boostrix, 2010-01-18 Completed Rosi esposito Adacel) 00:00:00 Vital Signs Vital Name Observation Time Observation Value Comments Source Systolic blood 2021-10-10 20:19:00 141 mm[Hg] Univer sity of pressure [facility] Diastolic blood 2021-10-10 20:19:00 98 mm[Hg] Unive rsity of pressure [facility] Heart rate 2021-10-10 20:19:00 109 /min Universi ty of [facility] Body temperature 2021-10-10 20:19:00 36.94 Sole Univ ersity of [facility] Respiratory rate 2021-10-10 20:19:00 18 /min Univ ersity of [facility] Body height 2021-10-10 20:19:00 160 cm Universi ty of [facility] Body weight 2021-10-10 20:19:00 115.667 kg Universi ty of [place] [facility] BMI 2021-10-10 20:19:00 45.17 kg/m2 Universi ty [facility] Oxygen saturation in 2021-10-10 20:19:00 97 /min [facility] blood by [facility] Pulse oximetry Branch Systolic blood [...] 2021-04-28 14:43:00 45.91 kg/m2 Rosi S eybold height 2021-03-30 10:10:00 60.75 [in_i] [facility] weight 2021-03-30 10:10:00 245 [lb_av] [facility] temperature 2021-03-30 10:10:00 97.2 [degF] [facility] bmi 2021-03-30 10:10:00 46.67 kg/m2 [facility] oximetry 2021-03-30 10:10:00 100 % [facility] respiratory rate 2021-03-30 10:10:00 17 /min Comm on [facility] blood pressure 2021-03-30 10:10:00 121 mm[Hg] Common [facility] - systolic [facility] blood pressure 2021-03-30 10:10:00 73 mm[Hg] Common [facility] - diastolic [facility] height 2021-02-15 16:20:00 60.75 [in_i] [facility] weight 2021-02-15 16:20:00 251.6 [lb_av] [facility] temperature 2021-02-15 16:20:00 97.3 [degF] [facility] bmi 2021-02-15 16:20:00 47.93 kg/m2 [facility] oximetry 2021-02-15 16:20:00 97 % [facility] respiratory rate 2021-02-15 16:20:00 18 /min Comm on [facility] blood pressure 2021-02-15 16:20:00 120 mm[Hg] [facility] - systolic [facility] blood pressure 2021-02-15 16:20:00 76 mm[Hg] Common [facility] diastolic [facility] Systolic blood 2021-02-11 13:34:00 127 mm[Hg] Univer sity of pressure [facility] Diastolic blood 2021-02-11 13:34:00 87 mm[Hg] Unive rsity of pressure [facility] Heart rate 2021-02-11 13:34:00 100 /min [facility] Body height 2021-02-11 13:34:00 160 cm [facility] Body weight 2021-02-11 13:34:00 115.667 kg [facility] BMI 2021-02-11 13:34:00 45.17 kg/m2 [facility] height 2021-01-20 11:00:00 60.75 [in_i] Common [facility] [facility] weight 2021-01-20 11:00:00 255 [lb_av] Common [facility] temperature 2021-01-20 11:00:00 97.3 [degF] Common [facility] bmi 2021-01-20 11:00:00 48.57 kg/m2 Common [facility] oximetry 2021-01-20 11:00:00 98 % Common [facility] respiratory rate 2021-01-20 11:00:00 18 /min Comm on [facility] blood pressure 2021-01-20 11:00:00 122 mm[Hg] Common [facility] - systolic [facility] blood pressure 2021-01-20 11:00:00 68 mm[Hg] Common [facility] - diastolic [facility] height 2020-12-15 14:00:00 60.75 [in_i] Common [facility] weight 2020-12-15 14:00:00 258 [lb_av] Common [facility] temperature 2020-12-15 14:00:00 97.9 [degF] Common [facility] bmi 2020-12-15 14:00:00 49.15 kg/m2 [facility] oximetry 2020-12-15 14:00:00 98 % Common [facility] respiratory rate 2020-12-15 14:00:00 20 /min Comm on [facility] blood pressure 2020-12-15 14:00:00 118 mm[Hg] Common [facility] - systolic [facility] blood pressure 2020-12-15 14:00:00 67 mm[Hg] Common [facility] - diastolic [facility] Systolic (mm Hg) 2021-03-16 13:19:00 Lev rial [place] Diastolic (mm Hg) 2021-03-16 13:19:00 Mem [facility] [place] Heart Rate 2021-03-16 13:19:00 [facility] [place] Respitory Rate 2021-03-16 13:19:00 [facility] [place] Height 2021-03-16 13:19:00 152.4 cm [facility] [place] Weight 2021-03-16 13:19:00 [facility] [place] BMI Calculated 2021-03-16 13:19:00 [facility] [place] Systolic (mm Hg) 2021-02-01 18:35:00 Lev rial [place] Diastolic (mm Hg) 2021-02-01 18:35:00 Mem [facility] [place] Heart Rate 2021-02-01 18:35:00 [facility] [place] Respitory Rate 2021-02-01 18:35:00 [facility] [place] Height 2021-02-01 18:35:00 152.4 cm [facility] [place] Weight 2021-02-01 18:35:00 [facility] [place] BMI Calculated 2021-02-01 18:35:00 [facility] [place] Systolic (mm Hg) 2020-09-24 19:34:00 Lev rial [place] Diastolic (mm Hg) 2020-09-24 19:34:00 Mem o[facility] [place] Heart Rate 2020-09-24 19:34:00 [facility] [place] Respitory Rate 2020-09-24 19:34:00 [facility] [place] Height 2020-09-24 19:34:00 160.02 cm [facility] [place] Weight 2020-09-24 19:34:00 [facility] [place] BMI Calculated 2020-09-24 19:34:00 [facility] [place] Respitory Rate 2020-02-26 16:32:00 [facility] [place] Systolic (mm Hg) 2020-02-26 16:32:00 Lev rial [place] Diastolic (mm Hg) 2020-02-26 16:32:00 Mem [facility] [place] Heart Rate 2020-02-26 16:00:00 [facility] [place] Respitory Rate 2020-02-26 16:00:00 [facility] [place] Systolic (mm Hg) 2020-02-26 16:00:00 Lev rial [place] Diastolic (mm Hg) 2020-02-26 16:00:00 Mem [facility] [place] Heart Rate 2020-02-26 15:50:00 [facility] [place] Respitory Rate 2020-02-26 15:50:00 [facility] [place] Systolic (mm Hg) 2020-02-26 15:50:00 Lev rial [place] Diastolic (mm Hg) 2020-02-26 15:50:00 Mem [facility] [place] Heart Rate 2020-02-26 15:40:00 [facility] [place] Temperature Oral (F) 2020-02-26 15:20:00 37.0 Sole [facility] Temperature Oral (F) 2020-02-26 11:25:00 37.2 Sole [facility] Height 2020-02-26 11:25:00 158 cm [facility] [place] Height 2020-02-18 16:59:00 158 cm [facility] [place] Systolic blood 2020-02-02 14:39:00 134 mm[Hg] UT [...] Systolic (mm Hg) 2020-01-15 20:04:00 Lev rial [place] Diastolic (mm Hg) 2020-01-15 20:04:00 Mem [facility] [place] Heart Rate 2020-01-15 20:04:00 [facility] [place] Respitory Rate 2020-01-15 20:04:00 [facility] [place] Height 2020-01-15 20:04:00 152.4 cm [facility] [place] Weight 2020-01-15 20:04:00 [facility] [place] BMI Calculated 2020-01-15 20:04:00 [facility] [place] Systolic (mm Hg) 2019-12-02 20:40:00 Lev rial [place] Diastolic (mm Hg) 2019-12-02 20:40:00 Mem [facility] [place] Heart Rate 2019-12-02 20:40:00 [facility] [place] Respitory Rate 2019-12-02 20:40:00 [facility] [place] Height 2019-12-02 20:40:00 152.4 cm [facility] [place] Weight 2019-12-02 20:40:00 [facility] [place] BMI Calculated 2019-12-02 20:40:00 [facility] [place] Weight 2019-02-14 19:40:00 [facility] [place] BMI Calculated 2019-02-14 19:40:00 [facility] [place] Height 2019-02-14 19:40:00 160.02 cm [facility] [place] Respitory Rate 2019-02-14 19:40:00 [facility] [place] Heart Rate 2019-02-14 19:40:00 [facility] [place] Systolic (mm Hg) 2019-02-14 19:40:00 Lev rial [place] Diastolic (mm Hg) 2019-02-14 19:40:00 Mem [facility] [place] BMI Calculated 2018-12-24 20:38:00 [facility] [place] Weight 2018-12-24 20:38:00 [facility] [place] Height 2018-12-24 20:38:00 157.48 cm [facility] [place] Systolic (mm Hg) 2018-12-24 20:38:00 Lev rial [place] Diastolic (mm Hg) 2018-12-24 20:38:00 Mem [facility] [place] Respitory Rate 2018-12-24 20:38:00 [facility] [place] Heart Rate 2018-12-24 20:38:00 [facility] [place] Height 2018-12-20 19:20:00 152.4 cm [facility] [place] BMI Calculated 2018-12-20 19:20:00 [facility] [place] Weight 2018-12-20 19:20:00 [facility] [place] Systolic (mm Hg) 2018-12-20 19:20:00 Lev rial [place] Diastolic (mm Hg) 2018-12-20 19:20:00 Mem [facility] [place] Heart Rate 2018-12-20 19:20:00 [facility] [place] Respitory Rate 2018-12-20 19:20:00 [facility] [place] Systolic (mm Hg) 2018-11-22 19:23:00 Lev rial [place] Diastolic (mm Hg) 2018-11-22 19:23:00 Mem [facility] [place] Respitory Rate 2018-11-22 19:23:00 [facility] [place] Height 2018-11-22 19:23:00 157.48 cm [facility] [place] Weight 2018-11-22 19:23:00 [facility] [place] BMI Calculated 2018-11-22 19:23:00 [facility] [place] Heart Rate 2018-11-22 19:23:00 [facility] Procedures Procedure Date / Time Performing Clinician Source Performed AUTHORIZATION FOR RELEASE 2022-05-02 05:01:00 Doctor Unassigned, [facility] CONSENT/REFUSAL FOR 2021-10-10 20:09:22 Doctor Unassigned, [facility] DIAGNOSIS AND TREATMENT [facility] MRI SPINE EXTERNAL STUDY 2021-04-29 16:16:04 Tony Gray [facility] MR Ankle wo contrast [id number] 2020-07-02 00:00:00 [facility] [[facility]MD] US Lower Extremity 2020-05-31 00:00:00 [facility] Venous Doppler Bilateral Post Op Promis 29 Survey 2020-03-12 00:00:00 [facility] APPLICATION SHORT LEG 2020-02-26 13:13:00 Carissa oconnell [place] SPLINT-CALF TO FOOT 82451 (Left)<sup>1</sup> ARTHROSCOPY ANKLE 2020-02-26 13:13:00 [facility] ermmckenna 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 43043 (Left)<sup>2</sup> OPEN REDUCTION INTERNAL 2020-02-26 13:13:00 Lev rial [place] FIXATION TALUS FRACTURE 29392 (Left)<sup>3</sup> [L] 2019 Novel Coronavirus 2020-02-05 00:00:00 [facility] (COVID-19), MARK [[facility]] Ortho - Surgery 2020-02-02 00:00:00 [facility] Scheduling Carpal tunnel syndrome of [facility] [place] right wrist Plantar fasciitis of left [facility] [place] foot Cholecystectomy [facility] History of Breast [facility] reduction History of Carpal tunnel [facility] surgery Breast reduction, [facility] nn bilateral Bunionectomy [facility] Plan of Care Planned Activity Planned Date Details Comments Source Future Scheduled 2022-07-06 Hepatitis C [facility] ospital Test 08:29:48 screening (procedure) [code = 654801847] Future Scheduled 2022-07-06 Screening for [facility] Test 08:29:48 malignant neoplasm of cervix (procedure) [code = 369509256] Future Scheduled 2022-07-06 BREAST CANCER [facility] Test 08:29:48 SCREENING [code = BREAST CANCER SCREENING] Future Scheduled 2022-07-06 [facility] 08:29:48 SCREENING [code = COLONOSCOPY SCREENING] Future Scheduled 2022-07-06 COVID-19 VACCINE (3 [facility] Test 08:29:48 - Booster for Moderna series) [code = COVID-19 VACCINE (3 - Booster for Moderna series)] Future Scheduled 2022-07-06 [facility] 08:29:48 [code = INFLUENZA VACCINE] Future Scheduled 2022-04-27 HEPATITIS B VACCINES Met [facility] Test 09:25:03 (1 of 3 - 3-dose series) [code = HEPATITIS B VACCINES (1 of 3 - 3-dose series)] Future Scheduled 2022-04-27 [facility] 09:25:03 screening (procedure) [code = 399075761] Future Scheduled 2022-04-27 Screening for [facility] Test 09:25:03 malignant neoplasm of cervix (procedure) [code = 341811568] Future Scheduled 2022-04-27 [facility]CER [facility] Test 09:25:03 SCREENING [code = BREAST CANCER SCREENING] Future Scheduled 2022-04-27 [facility] 09:25:03 SCREENING [code = COLONOSCOPY SCREENING] Future Scheduled 2022-04-27 [facility] 09:25:03 - Booster for Moderna series) [code = COVID-19 VACCINE (3 - Booster for Moderna series)] Future Scheduled 2022-04-27 [facility]INE [facility] 09:25:03 [code = INFLUENZA VACCINE] Future Scheduled 2022-03-30 HEPATITIS B VACCINES Met [facility] Test 16:54:14 (1 of 3 - 3-dose series) [code = HEPATITIS B VACCINES (1 of 3 - 3-dose series)] Future Scheduled 2022-03-30 [facility] 16:54:14 screening (procedure) [code = 484387428] Future Scheduled 2022-03-30 [facility] Test 16:54:14 malignant neoplasm of cervix (procedure) [code = 839320620] Future Scheduled 2022-03-30 [facility] CANCER [facility] Test 16:54:14 SCREENING [code = BREAST CANCER SCREENING] Future Scheduled 2022-03-30 [facility] 16:54:14 SCREENING [code = COLONOSCOPY SCREENING] Future Scheduled 2022-03-30 COVID-19 VACCINE (3 [facility] Test 16:54:14 - Booster for Moderna series) [code = COVID-19 VACCINE (3 - Booster for Moderna series)] Future Scheduled 2022-03-30 [facility]ACCINE [facility] 16:54:14 [code = INFLUENZA VACCINE] Future Scheduled 2022-03-30 [facility] 16:54:14 (1 of 3 - 3-dose series) [code = HEPATITIS B VACCINES (1 of 3 - 3-dose series)] Future Scheduled 2022-03-30 [facility] 16:54:14 screening (procedure) [code = 847308429] Future Scheduled 2022-03-30 [facility] Test 16:54:14 malignant neoplasm of cervix (procedure) [code = 875137299] Future Scheduled 2022-03-30 BREAST CANCER [facility] Test 16:54:14 SCREENING [code = BREAST CANCER SCREENING] Future Scheduled 2022-03-30 [facility] 16:54:14 SCREENING [code = COLONOSCOPY SCREENING] Future Scheduled 2022-03-30 COVID-19 VACCINE (3 [facility] Test 16:54:14 - Booster for Moderna series) [code = COVID-19 VACCINE (3 - Booster for Moderna series)] Future Scheduled 2022-03-30 [facility]INE [facility] 16:54:14 [code = INFLUENZA VACCINE] Future Scheduled 2022-03-09 HEPATITIS B VACCINES Met [facility] Test 10:28:27 (1 of 3 - 3-dose series) [code = HEPATITIS B VACCINES (1 of 3 - 3-dose series)] Future Scheduled 2022-03-09 [facility] 10:28:27 screening (procedure) [code = 903870303] Future Scheduled 2022-03-09 [facility] Test 10:28:27 malignant neoplasm of cervix (procedure) [code = 521116628] Future Scheduled 2022-03-09 [facility] CANCER [facility] Test 10:28:27 SCREENING [code = BREAST CANCER SCREENING] Future Scheduled 2022-03-09 [facility] 10:28:27 SCREENING [code = COLONOSCOPY SCREENING] Future Scheduled 2022-03-09 COVID-19 VACCINE (3 [facility] Test 10:28:27 - Booster for Moderna series) [code = COVID-19 VACCINE (3 - Booster for Moderna series)] Future Scheduled 2022-03-09 [facility]ACCINE [facility] 10:28:27 [code = INFLUENZA VACCINE] Future Scheduled 2021-08-16 [facility] 19:56:30 screening (procedure) [code = 469362864] Future Scheduled 2021-08-16 [facility] Test 19:56:30 malignant neoplasm of cervix (procedure) [code = 707822717] Future Scheduled 2021-08-16 INFLUENZA VACCINE Method ist [...] Type Clinicians Facility Department ID 2022-02-[address] [facility] [id number] Common 13:42:03 Avnee [id number] [facility] 2021-08-10 Outpatient Jose [facility] [id number] Common 13:49:13 Avnee [id number] [facility] 2021-08-10 Outpatient Garcia, [facility] [id number] Common 13:47:59 Avnee [id number] [facility] 2021-08-10 Outpatient Garcia, [facility] [id number] Common 13:43:00 Avnee 82928 [facility] 2021-08-10 Outpatient Garcia, [facility] [id number] Common 13:37:06 Avnee [id number] [facility] 2021-08-10 Outpatient AN Garcia STGIBRAN [id number] Common 13:23:50 Avnee [id number] [facility] 2021-08-10 Outpatient AN Garcia STGIBRAN [id number] Common 13:22:32 Avnee 03495 [facility] 2021-08-10 Outpatient [facility] [id number] Common 13:09:55 Avnee [id number] [facility] 2021-05-15 Outpatient Scott PERES [facility] JOSE [id number] Univers 06:58:12 ESTER rm [facility] 2022-09-07 2022-09-07 Outpatient ROSI ALARCON [id number] Rosi 00:00:00 00:00:00 ALFONZO armendariz 2022-07-20 2022-07-22 Outside MHIE MNA [id number] Memoria 14:48:41 05:59:59 Medical Neurology 01 l Records Nik Segovia 2022-07-20 2022-07-21 Outpatient MHMISCHER MHMISCHER [id number] 08:48:41 23:59:59 2022-05-02 2022-05-02 (TEL) [facility] [id number] Co mmon 00:00:00 00:00:00 [facility] 2022-05-02 2022-05-02 Orders Doctor DUEÑAS [id number] [id number] Univers 00:00:00 00:00:00 Only Unassigned, MARIA ELENA [id number] [facility] 4.2.7.2.686 [place] as [phone] [address] 2022-02-21 2022-02-21 Outpatient ROSI CAMPBELL [id number] Rosi 00:00:00 00:00:00 HAMZAH armendariz 2021-10-10 2021-10-10 Emergency X YARELY MSESTER ERT [id number] Univers 15:21:00 15:42:00 CAT rm [facility] 2021-10-10 2021-10-10 Emergency Yarely [facility] 1.2.840.114 [id number] Univers 15:21:00 15:42:00 Cat DUMONT 350.1.13.10 [facility] 4.2.7.2.686 [facility] [id number] [facility] [address] 2021-10-10 2021-10-10 Outpatient ROSI ALARCON [id number] Rosi 00:00:00 00:00:00 ALFONZO Seybol d 2021-09-09 2021-09-11 Outside nullFlavo MNA [id number] Memoria 15:41:21 05:59:59 Medical r Neurology 00 l Records [place] 2021-09-09 2021-09-11 Outside nullFlavo MNA [id number] Memoria 15:41:21 05:59:59 Medical r Neurology 00 l Records [place] 2021-09-09 2021-09-10 Outpatient MHMISCHER MISCHER [id number] 09:41:21 23:59:59 00 2021-09-09 2021-09-09 Outpatient ROSI ALARCON [id number] Rosi 00:00:00 00:00:00 ALFONZO Seybol d 2021-08-26 2021-08-26 Outpatient ROSI ALARCON [id number] Rosi 00:00:00 00:00:00 ALFONZO Seybol d 2021-07-05 2021-07-05 Outpatient ROSI ALARCON [id number] Rosi 00:00:00 00:00:00 ALFONZO Seybol d 2021-07-05 2021-07-05 Outpatient ROSI ALARCON [id number] Rosi 00:00:00 00:00:00 ALFONZO Seybol d 2021-06-02 2021-06-02 Outpatient ROSI ALARCON [id number] Rosi 00:00:00 00:00:00 ALFONZO Seybol d 2021-05-23 2021-05-23 Documentat Marina, 1.2.840.1 [id number] Methodi 00:00:00 00:00:00 [address] 3.430.2.7 Hospit a .3.196655 l .8 2021-05-18 2021-05-18 [facility] 1.2.840.1 [id number] Methodi 12:57:38 23:59:[address] 3.430.2.7 Hospit a .3.710653 l .8 2021-05-18 2021-05-18 Office Laurence Gray.2.840.1 [id number] Methodi 13:15:00 15:18:57 Visit Tony Hdz 48512.1.[address] 3.430.2.7 Hospit a .3.538695 l .8 2021-05-18 2021-05-18 Outpatient [facility] [id number] [place] 00:00:00 00:00:[address] 2021-05-18 2021-05-18 Orders Marina .2.840.1 [id number] Methodi 00:00:00 00:00:00 Only Tony Hdz 09369.1.[address] 3.430.2.7 Hospit a .3.982099 l .8 2021-05-16 2021-05-16 Outpatient ROSI ALARCON [id number] Rosi 00:00:00 00:00:00 ALFONZO Stevensol marcello 2021-05-11 2021-05-11 Outpatient ROSI ALARCON [id number] Rosi 00:00:00 00:00:00 ALFONZO Stevensol d 2021-05-11 2021-05-11 Outpatient ROSI ALARCON [id number] Rosi 00:00:00 00:00:00 ALFONZO Seybol d 2021-04-28 2021-04-28 Office Jered Alarcon 1.2.840.114 [id number] Rosi 09:39:43 10:09:43 Visit Alfonzo Montenegro 350.1.13.13 Se bradenfiona Brettyi 1.2.7.2.686 [id number] 2021-04-27 2021-04-27 Ambulatory nullFlavo MNA [id number] Memoria 15:15:00 15:15:00 Pre-Reg r Neurology 13 l Nik Segovia 2021-04-27 2021-04-27 Ambulatory nullFlavo MNA [id number] [facility] 15:15:00 15:15:00 Pre-Reg r Neurology 13 l Nik Segovia 2021-04-27 2021-04-27 Outpatient DIMAIE TYRA [id number] [facility] 10:15:00 10:15:00 13 violet Segovia 2021-04-27 2021-04-27 Outpatient VIRGILIO Espinal [facility] [id number] 10:15:00 10:15:00 Malcom 13 Santos 2021-04-21 2021-04-21 (TEL) STLMLC STLMLC [id number] Co mmon 00:00:00 00:00:00 [facility] 2021-04-12 2021-04-12 (TEL) STLMLC STLMLC [id number] Co mmon 00:00:00 00:00:00 [facility] 2021-04-06 2021-04-06 (TEL) STLMLC STLMLC [id number] Co mmon 00:00:00 00:00:00 [facility] 2021-03-31 2021-03-31 (TEL) STLMLC STLMLC [id number] Co mmon 00:00:00 00:00:00 [facility] 2021-03-30 2021-03-30 OFFICE STLMLC STLMLC [id number] Co mmon 00:00:00 00:00:00 VISIT EST Spir it PT LEVEL 3 - [facility] 2021-03-30 2021-03-30 (TEL) STLMLC STLMLC [id number] Co mmon 00:00:00 00:00:00 [facility] 2021-03-28 2021-03-28 Outpatient ROYCE DELEON [facility] [id number] Univers 10:30:00 10:30:00 ity of [facility] 2021-03-23 2021-03-23 Telephone Ja [facility] 1.2.840.114 [id number] Univers 00:00:00 00:00:00 Ester Aleman [facility] 350.1.13.10 it y vito [place] 4.2.7.2.686 [place] Sam?Blea [id number] Il muriel [address] Medical Office Building 2021-03-16 2021-03-17 Outpatient nullFlavo MNA [id number] Memoria 13:15:00 04:59:59 r Neurology 12 l Nik Harringtonann 2021-03-16 2021-03-17 Outpatient nullFlavo MNA [id number] Memoria 13:15:00 04:59:59 r Neurology 12 l Nik Harringtonann 2021-03-17 2021-03-17 (TEL) STLMLC STLMLC [id number] Co mmon 00:00:00 00:00:00 [facility] 2021-03-16 2021-03-16 Outpatient [id number] 08:15:00 23:59:59 Malcom 12 [place] 2021-03-16 2021-03-16 Outpatient DIMAIE TYRA [id number] Memoria 08:15:00 08:15:00 12 violet Segovia 2021-02-23 2021-02-23 OFFICE STLMLC STLMLC [id number] Co mmon 00:00:00 00:00:00 VISIT EST Spir it PT LEVEL 3 - [facility] 2021-02-21 2021-02-21 (TEL) STLMLC STLMLC [id number] Co mmon 00:00:00 00:00:00 [facility] 2021-02-16 2021-02-16 (TEL) STLMLC STLMLC [id number] Co mmon 00:00:00 00:00:00 [facility] 2021-02-15 2021-02-15 OFFICE STLMLC STLMLC [id number] Co mmon 00:00:00 00:00:00 VISIT EST Spir it PT LEVEL 3 [place] [facility] 2021-02-11 2021-02-11 Outpatient Scott PERES [facility] [id number] Univers 08:15:00 08:56:02 ESTER rm [facility] 2021-02-11 2021-02-11 [facility] [id number] [id number] Univers 08:13:08 08:56:02 Visit Ester Aleman [facility] 350.1.13.10 it y of SURGICAL 4.2.7.2.686 [place] as SPECIALTI [id number] Il dical ES [address] FREDONIA 2021-02-10 2021-02-10 Outpatient Scott WOOD [facility] [id number] Univers 13:00:00 13:00:00 MG rm [facility] 2021-02-03 2021-02-03 Outpatient Scott WOOD [facility] [id number] Univers 10:30:00 [facility] 2021-02-01 2021-02-02 Outpatient nullFlavo MNA [id number] Memoria 18:30:00 04:59:59 r Neurology 11 l Nik Segovia 2021-02-01 2021-02-02 Outpatient nullFlavo MNA [id number] Memoria 18:30:00 04:59:59 r Neurology 11 l Nik Segovia 2021-02-01 2021-02-01 Outpatient Kylie MHMISCHER MHMISCHER [id number] 13:30:00 23:59:59 Malcom Ashlee Santos 2021-02-01 2021-02-01 Outpatient MHIE MHIE [id number] Memoria 13:30:00 13:30:00 11 l Luca 2021-01-20 2021-01-20 OFFICE STLMLC STLMLC [id number] Co mmon 00:00:00 00:00:00 VISIT EST Spir it PT LEVEL 3 - [facility] 2021-01-14 2021-01-14 (TEL) STLMLC STLMLC [id number] Co mmon 00:00:00 00:00:00 Spirit - [facility] 2020-12-23 2020-12-23 Outpatient Scott JAFFE [facility] [id number] Univers 10:00:00 10:00:00 DEMETRIA rm [facility] 2020-12-23 2020-12-23 Outpatient Scott OLSON [facility] [id number] Univers 09:00:00 09:00:00 WONDIFUL ity o f [facility] 2020-12-16 2020-12-16 Outpatient Scott WOOD [facility] [id number] Univers 10:30:00 10:30:00 [facility] 2020-12-15 2020-12-15 (TEL) STLMLC STLMLC [id number] Co mmon 00:00:00 00:00:00 Spirit - [facility] 2020-12-15 2020-12-15 OFFICE STLMLC STLMLC [id number] Co mmon 00:00:00 00:00:00 VISIT NEW Spir it PT LEVEL 4 - [facility] 2020-12-06 2020-12-06 Outpatient Scott WOOD [facility] [id number] Univers 15:52:18 23:59:00 [facility] 2020-11-25 2020-11-25 Outpatient ROYCE DELEON [facility] [id number] Univers 09:00:00 09:00[facility] 2020-11-11 2020-11-11 Outpatient ROYCE DELEON [facility] [id number] Univers 15:30:00 15:30:00 [facility] 2020-11-04 2020-11-04 Outpatient Scott PHILLIPS [facility] [id number] Univers 10:00:00 10:00:00 EMELYN [facility] 2020-10-28 2020-10-28 Outpatient Scott WOOD [facility] [id number] Univers 10:45:00 10:45:00 [facility] 2020-10-25 2020-10-25 Outpatient Scott WOOD [facility] [id number] Univers 14:45:00 14:45:00 [facility] 2020-10-15 2020-10-15 Outpatient Scott WOOD [facility] [id number] Univers 10:00:00 10:00:00 [facility] 2020-10-08 2020-10-08 Outpatient Scott PERES [facility] [id number] Univers 09:30:00 09:30:00 [facility] 2020-10-08 2020-10-08 Outpatient R DENISPRIMITIVODIANA, [facility] [id number] Univers 09:15:00 09:15:00 OSCAR [facility] 2020-09-24 2020-09-25 Outpatient nullFlavo MNA [id number] Memoria 19:00:00 05:59:59 r Neurology 10 l [place] 2020-09-24 2020-09-25 Outpatient nullFlavo MNA [id number] Memoria 19:00:00 05:59:59 r Neurology 10 l Nik Segovia 2020-09-24 2020-09-24 Outpatient VIRGILIO Espinal MICHAEL [id number] 13:00:00 23:59:59 Malcom Ada Santos 2020-09-24 2020-09-24 Outpatient Scott NINA [facility] [id number] Univers 11:58[facility]20 [facility]24 Outpatient MHIE MHIE [id number] Memoria 13:00:00 13:00:00 10 violet Segovia 2020-09-21 2020-09-21 Outpatient R JA, [facility] [id number] Univers 00:00:00 00:00:00 [facility] 2020-09-09 2020-09-09 Outpatient R PERES, [facility] [id number] Univers 09:15:00 09:15:00 [facility] 2020-09-06 2020-09-06 Ambulatory nullFlavo MNA [id number] Memoria 16:30:00 16:30:00 Pre-Reg r Neurology 09 l Nik Segovia 2020-09-06 2020-09-06 Ambulatory nullFlavo MNA [id number] Memoria 16:30:00 16:30:00 Pre-Reg r Neurology 09 l Nik Segovia 2020-09-06 2020-09-06 Outpatient MHIE MHIE [id number] Memoria 10:30:00 10:30:00 09 violet Segovia 2020-09-06 2020-09-06 Outpatient VIRGILIO Espinal MHMISCHFLORA [id number] 10:30:00 10:30:00 Malcom 09 Santos 2020-07-14 2020-07-14 Outpatient R CHRISTIANNE, [facility] [id number] 19:00:00 19:00:00 BROOKE serrano [facility] 2020-07-02 2020-07-02 Steven JEAN [facility] Orthopedics [id number] [place] 14:30:00 14:30:00 t; RAJI JEAN BAPTISTE, - Sugar Phys ici RAJI, DPM [place] 2 ans DPM 2020-06-01 2020-06-01 Ambulatory nullFlavo MNA [id number] Memoria 20:00:00 20:00:00 Pre-Reg r Neurology 08 l [place] 2020-06-01 2020-06-01 Ambulatory nullFlavo MNA [id number] Memoria 20:00:00 20:00:00 Pre-Reg r Neurology 08 l [place] 2020-06-01 2020-06-01 Outpatient MHIE [facility] [id number] Memoria 14:00:00 14:00:00 08 l [place] 2020-06-01 2020-06-01 [facility] [id number] 14:00:00 14:00:00 Malcom 08 Santos 2020-05-31 2020-05-31 Steven [facility] Orthopedics [id number] [place] 10:00:00 10:00:00 t; RAJI JEAN BAPTISTE, - Sugar Phys ici RAJI, DPM [place] 2 ans DPM 2020-05-10 2020-05-10 Steven JEAN [facility] Orthopedics [id number] [place] 09:00:00 09:00:00 t; RAJI JEAN BAPTISTE, - Sugar Phys ici RAJI, DPM [place] 2 ans DPM 2020-04-27 2020-04-27 Steven JEAN [facility] Orthopedics [id number] [place] 14:45:00 14:45:00 t; RAJI JEAN BAPTISTE, - Sugar Phys ici RAJI, DPM [place] 2 ans DPM 2020-03-29 2020-03-29 Steven JEAN [facility] Orthopedics [id number] [place] 13:00:00 13:00:00 t; RAJI JEAN BAPTISTE, - Sugar Phys ici RAJI, DPM [place] 2 ans DPM 2020-03-08 2020-03-08 Appointmen [facility] Orthopedics [id number] [place] 11:15:00 11:15:00 t; RAJI JEAN BAPTISTE, - Sugar Phys ici RAJI, DPM [place] 2 ans DPM 2020-02-26 2020-02-26 Outpatient nullFlavo [facility] [id number] Memoria 10:46:09 16:30:00 r [facility] 2020-02-26 2020-02-26 Outpatient nullFlavo [facility] [id number] Memoria 10:46:09 16:30:00 r [facility] 2020-02-26 2020-02-26 Outpatient nullFlavo [facility] [id number] Memoria 05:46:09 11:30:00 r [facility] 2020-02-26 2020-02-26 Outpatient Markel [id number] 05:46:09 11:30:00 Raji Vieira 2020-02-26 2020-02-26 Appointmen [facility] Orthopedics [id number] [place] 10:30:00 10:30:00 t; RAJI JEAN BAPTISTE, - Sugar Phys ici RAJI, DPM [place] 2 ans DP 2020-02-02 2020-02-[facility] Orthopedics [id number] [place] 10:45:00 10:45:00 t; RAJI JEAN BAPTISTE, - Sugar Phys ici RAJI, DPM [place] 2 [place] DP 2020-01-15 2020-01-16 Outpatient nullFlavo MNA [id number] Memoria 20:00:00 04:59:59 r Neurology 07 l Nik Segovia 2020-01-15 2020-01-16 Outpatient nullFlavo MNA [id number] Memoria 20:00:00 04:59:59 r Neurology 07 l Nik Segovia 2020-01-15 2020-01-15 Outpatient [facility]IRGILIO [facility]inal [facility] [id number] 15:00:00 23:59:59 Malcom Graham 2020-01-15 2020-01-15 Ambulatory nullFlavo MNA [id number] Memoria 20:00:00 20:00:00 Pre-Reg r Neurology 06 l [place] 2020-01-15 2020-01-15 Ambulatory nullFlavo MNA [id number] Memoria 20:00:00 20:00:00 Pre-Reg r Neurology 06 l Nik [place] 2020-01-15 2020-01-15 Outpatient MHIE MHIE [id number] Memoria 15:00:00 15:00:00 06 [place] 2020-01-15 2020-01-15 Outpatient MHIE MHIE [id number] Memoria 15:00:00 15:00:00 07 violet [place] 2020-01-15 2020-01-15 [facility] [id number] 15:00:00 15:00:00 Malcom Evans [place] 2019-12-02 2019-12-03 Outpatient nullFlavo MNA [id number] Memoria 20:30:00 04:59:59 r Neurology 05 l Nik Harringtonann 2019-12-02 2019-12-03 Outpatient nullFlavo MNA [id number] Memoria 20:30:00 04:59:59 r Neurology 05 violet [place] 2019-12-02 2019-12-02 [facility] [id number] 15:30:00 23:59:59 Malcom Rere [place] 2019-12-02 2019-12-02 Outpatient MHIE IE [id number] Memoria 15:30:00 15:30:00 05 violet [place] 2019-05-23 2019-05-23 Ambulatory nullFlavo MNA [id number] Memoria 19:15:00 19:15:00 Pre-Reg r Neurology 04 l [place] 2019-05-23 2019-05-23 Ambulatory nullFlavo MNA [id number] Memoria 19:15:00 19:15:00 Pre-Reg r Neurology 04 l [place] 2019-05-23 2019-05-23 Outpatient MHIE MHIE [id number] Memoria 13:15:00 13:15:00 04 violet [place] 2019-05-23 2019-05-23 [facility] [id number] 13:15:00 13:15:00 Malcomlindy Graham 2019-03-23 2019-03-23 Emergency [facility] [id number] 12:37:57 13:11:00 Palomo Dumont [id number] [place] [id number] [place] [id number] 2019-03-23 2019-03-23 Orders Doctor DUEÑAS [id number] 00:00:00 00:00:00 Only Unassigned, MARIA ELENA [id number] [place] [id number] 2019-02-14 2019-02-15 Outpatient nullFlavo MNA [id number] Memoria 20:00:00 04:59:59 r Neurology 02 [place] 2019-02-14 2019-02-15 Outpatient nullFlavo MNA [id number] Memoria 20:00:00 04:59:59 r Neurology 02 [place] 2019-02-14 2019-02-14 Outpatient VIPUL EspinalSCHER MISCHER [id number] 15:00:00 23:59:59 Malcom 02 [place] 2019-02-14 2019-02-14 Outpatient MHIE MHIE [id number] Memoria 15:00:00 15:00:00 02 violet [place] 2018-12-24 2018-12-25 Outpatient nullFlavo MNA [id number] Memoria 20:15:00 04:59:59 r Neurology 03 l [place] 2018-12-24 2018-12-25 Outpatient nullFlavo MNA [id number] Memoria 20:15:00 04:59:59 r Neurology 03 Nik Segovia 2018-12-24 2018-12-24 Outpatient VIPUL EspinalSCHFLORA MISCHER [id number] 15:15:00 23:59:59 Malcom Nasreen [place] 2018-12-24 2018-12-24 Outpatient MHIE MHIE [id number] Memoria 15:15:00 15:15:00 03 violet Segovia 2018-12-20 2018-12-21 Outpatient nullFlavo MNA [id number] Memoria 18:45:00 04:59:59 r Neurology 01 violet Segovia 2018-12-20 2018-12-21 Outpatient nullFlavo MNA [id number] Memoria 18:45:00 04:59:59 r Neurology 01 Nik Harringtonann 2018-12-20 2018-12-20 Outpatient VIPUL [facility] [id number] 13:45:00 23:59:59 Malcom 01 [facility] 2018-12-20 2018-12-20 Outpatient TYRA MARY [id number] Memoria 13:45:00 13:45:00 01 violet [place] 2018-11-22 2018-11-23 Outpatient nullFlavo MNA [id number] Memoria 19:45:00 04:59:59 r Neurology 00 l Jim Hogg[place]ugio Harrington[place] 2018-11-22 2018-11-23 Outpatient nullFlavo MNA [id number] Memoria 19:45:00 04:59:59 r Neurology 00 l Nik [place] 2018-11-22 2018-11-22 Outpatient DENNIS EspinalFLORA [facility] [id number] 14:45:00 23:59:59 Malcom 00 [facility] 2018-11-22 2018-11-22 Outpatient TYRA CHPUNEET [id number] Memoria 14:45:00 14:45:00 00 violet [place] Results Test Description Test Time Test Comments Results Result Comments Source LABORATORY 2020-02-18 17:38:00 Test Item Value Reference Range Interpretation Comme nts Glucose Lvl (test code = Glucose Lvl) 89 70-99 [place] 666050-08-05 17:38:00 Test Item Value Reference Range Interpretation Comments BUN (test code = BUN) 12 7-22 [place] 666050-08-05 17:38:00 Test Item Value Reference Range Interpretation Comments Creatinine (test code = Creatinine) 0.79 0.50-1.40 [place] 666050-08-05 17:38:00 Test Item Value Reference Range Interpretation Comments Sodium Level (test code = Sodium Level) 141 135-145 [place] 666050-08-05 17:38:00 Test Item Value Reference Range Interpretation Comments Potassium Level (test code = Potassium 4.5 3.5-5.1 Level) [place] 666050-08-05 17:38:00 Test Item Value Reference Range Interpretation Comments Chloride Level (test code = Chloride 108 95-109 Level) [place] 666050-08-05 17:38:00 Test Item Value Reference Range Interpretation Comments Total Carbon Dioxide Level (test code = 24 24-32 Total Carbon Dioxide Level) [facility] SystemDgboakhPWISJPCDFC5270-89-30 17:38:00 Test Item Value Reference Range Interpretation Comments Glucose Lvl (test code = Glucose Lvl) 89 70-99 [place] 666050-08-05 17:38:00 Test Item Value Reference Range Interpretation Comments BUN (test code = BUN) 12 7-22 [facility] SystemCjjzijuTLUKMOQJJG4517-61-04 17:38:00 Test Item Value Reference Range Interpretation Comments Creatinine (test code = Creatinine) 0.79 0.50-1.40 [facility] SystemShjxejrKJQNLESSQF1766-18-07 17:38:00 Test Item Value Reference Range Interpretation Comments Sodium Level (test code = Sodium Level) 141 135-145 [facility] SystemBmjuptiCAJPSDIHIL1054-08-86 17:38:00 Test Item Value Reference Range Interpretation Comments Potassium Level (test code = Potassium 4.5 3.5-5.1 Level) [facility] SystemUvxezrrIHXEJCLBFP8199-11-05 17:38:00 Test Item Value Reference Range Interpretation Comments Chloride Level (test code = Chloride 108 95-109 Level) [facility] SystemTriyhzuJLMFCSOHLX6314-39-08 17:38:00 Test Item Value Reference Range Interpretation Comments Total Carbon Dioxide Level (test code = 24 24-32 Total Carbon Dioxide Level) [facility] SystemYzktatnFJRXAFGKIH3027-69-49 17:38:00 Test Item Value Reference Range Interpretation Comments AGAP (test code = AGAP) 13.5 10.0-20.0 [facility] SystemGifvwurMUXEFAHADS7382-72-00 17:38:00 Test Item Value Reference Range Interpretation Comments Calcium Level (test code = Calcium 9.5 8.5-10.5 Level) [facility] SystemAdwpyulRLFUEJWMPI3100-81-27 17:38:00 Test Item Value Reference Range Interpretation Comments AGAP (test code = AGAP) 13.5 10.0-20.0 [facility] SystemUfwomxqFBNYWQCZVV1508-24-04 17:38:00 Test Item Value Reference Range Interpretation Comments eGFR (test code = eGFR) 92 [facility] SystemSesbjnwBBMAMGUWQK2939-44-64 17:38:00 Test Item Value Reference Range Interpretation Comments Results (test code = Reported (02/18/20 12:38 Results) PM) [place] 666050-08-05 17:38:00 Test Item Value Reference Range Interpretation Comments White Blood Count (test code = White 6.4 3.7-10.4 Blood Count) [facility] SystemZdssyczLOAECDATGL6081-75-04 17:38:00 Test Item Value Reference Range Interpretation Comments Red Blood Cell Count (test code = Red 4.37 4.20-5.40 Blood Cell Count) [facility] SystemUgdjlewKZEEDWOYHD2392-95-17 17:38:00 Test Item Value Reference Range Interpretation Comments Hemoglobin (test code = Hemoglobin) 12.7 12.0-16.0 [facility] SystemNmrvhszCVHYWGZCAN5239-75-09 17:38:00 Test Item Value Reference Range Interpretation Comments Hematocrit (test code = Hematocrit) 38.3 36.0-48.0 [facility] SystemXsngfiuYDRDDBYBJV5734-75-72 17:38:00 Test Item Value Reference Range Interpretation Comments MCV (test code = MCV) 87.5 80.0-98.0 [facility] SystemRcxdjapWWFPKPVNQB1520-71-67 17:38:00 Test Item Value Reference Range Interpretation Comments MCH (test code = MCH) 29.2 pg 27.0-31.0 [facility] SystemJvgtsauPDEGMBQZBR2327-44-25 17:38:00 Test Item Value Reference Range Interpretation Comments MCHC (test code = MCHC) 33.3 32.0-36.0 [facility] SystemDejtfofNHFLGULZSP3649-49-09 17:38:00 Test Item Value Reference Range Interpretation Comments RDW (test code = RDW) 14.2 11.5-14.5 [facility] SystemWibrapvWNLQUCJQQE7021-02-06 17:38:00 Test Item Value Reference Range Interpretation Comments Platelet (test code = Platelet) 300 133-450 [facility] SystemZzoralfPRJKZOSMHP5822-32-81 17:38:00 Test Item Value Reference Range Interpretation Comments MPV (test code = MPV) 8.3 7.4-10.4 [facility] SystemPohcvedGNQXGDIZKZ7649-95-87 17:38:00 Test Item Value Reference Range Interpretation Comments NRBCs # (test code = NRBCs #) 0.1 0.4-2.2 [facility] SystemCcnqkndRFXMGNCWSH1521-52-27 17:38:00 Test Item Value Reference Range Interpretation Comments Results (test code = Reported (02/18/20 12:38 Results) PM) [place] [address]-08-05 17:38:00 Test Item Value Reference Range Interpretation Comments Neutrophil % (test code = Neutrophil %) 62.2 45.0-75.0 [facility] SystemScsdibrXYTEXCEORA5944-96-37 17:38:00 Test Item Value Reference Range Interpretation Comments Monocyte % (test code = Monocyte %) 6.8 2.0-12.0 [place] [address]-08-05 17:38:00 Test Item Value Reference Range Interpretation Comments Lymphocyte % (test code = Lymphocyte %) 26.9 20.0-40.0 [place] [address]-08-05 17:38:00 Test Item Value Reference Range Interpretation Comments Eosinophil # (test code 3.6 See_Comment [Au tomated message] The = Eosinophil #) system which generated this result tra nsmitted reference range : <=4.0. The reference r karan was not used to int erpret this result as normal/abnormal . [facility] SystemUldpsclKHLMLCYPAP1752-82-65 17:38:00 Test Item Value Reference Range Interpretation Comments Basophil % (test code = 0.5 See_Comment [Au tomated message] The Basophil %) system which ge nerated this result tra nsmitted reference range : <=1.0. The reference r karan was not used to int erpret this result as normal/abnormal . [place] [address]-08-05 17:38:00 Test Item Value Reference Range Interpretation Comments Neutrophil # (test code = Neutrophil #) 4.0 1.5-8.1 [place] 666050-08-05 17:38:00 Test Item Value Reference Range Interpretation Comments Calcium Level (test code = Calcium 9.5 8.5-10.5 Level) [place] [address]-08-05 17:38:00 Test Item Value Reference Range Interpretation Comments Lymphocyte # (test code = Lymphocyte #) 1.7 1.0-5.5 [place] 666050-08-05 17:38:00 Test Item Value Reference Range Interpretation Comments Monocyte # (test code = 0.4 See_Comment [Au tomated message] The Monocyte #) system which ge nerated this result tra nsmitted reference range : <=0.8. The reference r karan was not used to int erpret this result as normal/abnormal . [facility] SystemNcgqigaKKLHIPSWRV7507-58-20 17:38:00 Test Item Value Reference Range Interpretation Comments Eosinophil % (test code 0.2 See_Comment [Au tomated message] The = Eosinophil %) system which generated this result tra nsmitted reference range : <=0.5. The reference r karan was not used to int erpret this result as normal/abnormal . [facility] SystemDybcnvwUOREMHZRQG6778-99-18 17:38:00 Test Item Value Reference Range Interpretation Comments Results (test code = Reported (02/18/20 12:38 Results) PM) [place] 666050-08-05 17:38:00 Test Item Value Reference Range Interpretation Comments eGFR (test code = eGFR) 92 [facility] SystemQxiglhqQKSOBLIQKG1297-32-00 17:38:00 Test Item Value Reference Range Interpretation Comments Results (test code = Reported (02/18/20 12:38 Results) PM) [place] 666050-08-05 17:38:00 Test Item Value Reference Range Interpretation Comments White Blood Count (test code = White 6.4 3.7-10.4 Blood Count) [facility] SystemZpesrvvNFTJFSWOEN9283-92-22 17:38:00 Test Item Value Reference Range Interpretation Comments Red Blood Cell Count (test code = Red 4.37 4.20-5.40 Blood Cell Count) [facility] SystemFcrrutdYHTOTIKPVZ1326-86-64 17:38:00 Test Item Value Reference Range Interpretation Comments Hemoglobin (test code = Hemoglobin) 12.7 12.0-16.0 [place] 666050-08-05 17:38:00 Test Item Value Reference Range Interpretation Comments Hematocrit (test code = Hematocrit) 38.3 36.0-48.0 [place] [address]-08-05 17:38:00 Test Item Value Reference Range Interpretation Comments MCV (test code = MCV) 87.5 80.0-98.0 [place] [address]-08-05 17:38:00 Test Item Value Reference Range Interpretation Comments MCH (test code = MCH) 29.2 pg 27.0-31.0 [place] 666050-08-05 17:38:00 Test Item Value Reference Range Interpretation Comments MCHC (test code = MCHC) 33.3 32.0-36.0 [facility] SystemFniwqpoJNREXHNJVH8781-19-40 17:38:00 Test Item Value Reference Range Interpretation Comments RDW (test code = RDW) 14.2 11.5-14.5 [place] 666050-08-05 17:38:00 Test Item Value Reference Range Interpretation Comments Platelet (test code = Platelet) 300 133-450 [facility] SystemGhchiusWPPWUVONVH8023-40-12 17:38:00 Test Item Value Reference Range Interpretation Comments MPV (test code = MPV) 8.3 7.4-10.4 [place] [address]-08-05 17:38:00 Test Item Value Reference Range Interpretation Comments NRBCs # (test code = NRBCs #) 0.1 0.4-2.2 [place] [address]-08-05 17:38:00 Test Item Value Reference Range Interpretation Comments Results (test code = Reported (02/18/20 12:38 Results) PM) [place] 666050-08-05 17:38:00 Test Item Value Reference Range Interpretation Comments Neutrophil % (test code = Neutrophil %) 62.2 45.0-75.0 [place] 666050-08-05 17:38:00 Test Item Value Reference Range Interpretation Comments Monocyte % (test code = Monocyte %) 6.8 2.0-12.0 [place] 666050-08-05 17:38:00 Test Item Value Reference Range Interpretation Comments Lymphocyte % (test code = Lymphocyte %) 26.9 20.0-40.0 [place] 666050-08-05 17:38:00 Test Item Value Reference Range Interpretation Comments Eosinophil # (test code 3.6 See_Comment [Au tomated message] The = Eosinophil #) system which generated this result tra nsmitted reference range : <=4.0. The reference r karan was not used to int erpret this result as normal/abnormal . [place] [address]-08-05 17:38:00 Test Item Value Reference Range Interpretation Comments Basophil % (test code = 0.5 See_Comment [Au tomated message] The Basophil %) system which ge nerated this result tra nsmitted reference range : <=1.0. The reference r karan was not used to int erpret this result as normal/abnormal . [facility] SystemLujchxmXBYAXESZQK3412-32-31 17:38:00 Test Item Value Reference Range Interpretation Comments Neutrophil # (test code = Neutrophil #) 4.0 1.5-8.1 [facility] SystemJdfuzpdMZZHHZUFVX8147-92-88 17:38:00 Test Item Value Reference Range Interpretation Comments Lymphocyte # (test code = Lymphocyte #) 1.7 1.0-5.5 [facility] SystemNsusvuxVICRMPXFBM2427-53-71 17:38:00 Test Item Value Reference Range Interpretation Comments Monocyte # (test code = 0.4 See_Comment [Au tomated message] The Monocyte #) system which ge nerated this result tra nsmitted reference range : <=0.8. The reference r karan was not used to int erpret this result as normal/abnormal . [facility] SystemDluykqiWRGCOEEVAO7261-78-92 17:38:00 Test Item Value Reference Range Interpretation Comments Eosinophil % (test code 0.2 See_Comment [Au tomated message] The = Eosinophil %) system which generated this result tra nsmitted reference range : <=0.5. The reference r karan was not used to int erpret this result as normal/abnormal . [facility] SystemPxnbmvuVXRGFMKIVI3806-19-60 17:38:00 Test Item Value Reference Range Interpretation Comments Results (test code = Reported (02/18/20 12:38 Results) PM) [facility] SystemEufholhBBTMMPTKFU6446-45-37 17:38:00 Test Item Value Reference Range Interpretation Comments Glucose Lvl (test code = Glucose Lvl) 89 70-99 [facility] SystemWlbcjwqUJRRWVUJPH2112-50-86 17:38:00 Test Item Value Reference Range Interpretation Comments BUN (test code = BUN) 12 7-22 [facility] SystemIfcnpebVDSEDAQNSL9267-12-08 17:38:00 Test Item Value Reference Range Interpretation Comments Creatinine (test code = Creatinine) 0.79 0.50-1.40 [facility] SystemSivoflzLJNGFHZJQW5392-57-53 17:38:00 Test Item Value Reference Range Interpretation Comments Sodium Level (test code = Sodium Level) 141 135-145 [facility] SystemBznxgkoVQUUQOPDBC3030-69-02 17:38:00 Test Item Value Reference Range Interpretation Comments Potassium Level (test code = Potassium 4.5 3.5-5.1 Level) [facility] SystemBxwefejDWQJOWKNBK1985-00-61 17:38:00 Test Item Value Reference Range Interpretation Comments Chloride Level (test code = Chloride 108 95-109 Level) [facility] SystemMggsckjADAECFVCMB7038-01-88 17:38:00 Test Item Value Reference Range Interpretation Comments Total Carbon Dioxide Level (test code = 24 24-32 Total Carbon Dioxide Level) [place] 666050-08-05 17:38:00 Test Item Value Reference Range Interpretation Comments AGAP (test code = AGAP) 13.5 10.0-20.0 [place] [address]-08-05 17:38:00 Test Item Value Reference Range Interpretation Comments Calcium Level (test code = Calcium 9.5 8.5-10.5 Level) [place] 666050-08-05 17:38:00 Test Item Value Reference Range Interpretation Comments eGFR (test code = eGFR) 92 [place] 666050-08-05 17:38:00 Test Item Value Reference Range Interpretation Comments Results (test code = Reported (02/18/20 12:38 Results) PM) [place] [address]-08-05 17:38:00 Test Item Value Reference Range Interpretation Comments White Blood Count (test code = White 6.4 3.7-10.4 Blood Count) [facility] SystemMpkqoghJSAOTNKMJW2546-22-58 17:38:00 Test Item Value Reference Range Interpretation Comments Red Blood Cell Count (test code = Red 4.37 4.20-5.40 Blood Cell Count) [place] [address]-08-05 17:38:00 Test Item Value Reference Range Interpretation Comments Hemoglobin (test code = Hemoglobin) 12.7 12.0-16.0 [place] [address]-08-05 17:38:00 Test Item Value Reference Range Interpretation Comments Hematocrit (test code = Hematocrit) 38.3 36.0-48.0 [place] [address]-08-05 17:38:00 Test Item Value Reference Range Interpretation Comments MCV (test code = MCV) 87.5 80.0-98.0 [address]08-05 17:38:00 Test Item Value Reference Range Interpretation Comments MCH (test code = MCH) 29.2 pg 27.0-31.0 [facility] SystemOvdjoqzCKHDWFSRLY9901-07-99 17:38:00 Test Item Value Reference Range Interpretation Comments MCHC (test code = MCHC) 33.3 32.0-36.0 [facility] SystemUcmeutqPFQFBWCTTL5796-44-88 17:38:00 Test Item Value Reference Range Interpretation Comments RDW (test code = RDW) 14.2 11.5-14.5 [facility] SystemTibayhzIQZSOMQBCF3435-62-50 17:38:00 Test Item Value Reference Range Interpretation Comments Platelet (test code = Platelet) 300 133-450 [facility] SystemGrpadzgMTJGODEOIR4829-23-61 17:38:00 Test Item Value Reference Range Interpretation Comments MPV (test code = MPV) 8.3 7.4-10.4 [facility] SystemOsmaxjaHSQQMPOYEI8323-18-59 17:38:00 Test Item Value Reference Range Interpretation Comments NRBCs # (test code = NRBCs #) 0.1 0.4-2.2 [facility] SystemFzviivaGPMBFKPSAI3329-15-64 17:38:00 Test Item Value Reference Range Interpretation Comments Results (test code = Reported (02/18/20 12:38 Results) PM) [facility] SystemZivxejlRULRETVZBH7483-51-49 17:38:00 Test Item Value Reference Range Interpretation Comments Neutrophil % (test code = Neutrophil %) 62.2 45.0-75.0 [facility] SystemVjusibmKNSAFEJFMU6526-88-77 17:38:00 Test Item Value Reference Range Interpretation Comments Monocyte % (test code = Monocyte %) 6.8 2.0-12.0 [facility] SystemOsobeopDKFPRZZOYT0771-91-45 17:38:00 Test Item Value Reference Range Interpretation Comments Lymphocyte % (test code = Lymphocyte %) 26.9 20.0-40.0 [facility] SystemFuslgktYZWEDYAGAS8491-09-32 17:38:00 Test Item Value Reference Range Interpretation Comments Eosinophil # (test code 3.6 See_Comment [Au tomated message] The = Eosinophil #) system which generated this result tra nsmitted reference range : <=4.0. The reference r karan was not used to int erpret this result as normal/abnormal . [facility] SystemYzfoggtXKXNESKBLD7601-27-28 17:38:00 Test Item Value Reference Range Interpretation Comments Basophil % (test code = 0.5 See_Comment [Au tomated message] The Basophil %) system which ge nerated this result tra nsmitted reference range : <=1.0. The reference r karan was not used to int erpret this result as normal/abnormal . [id number] 17:38:00 Test Item Value Reference Range Interpretation Comments Neutrophil # (test code = Neutrophil #) 4.0 1.5-8.1 [facility] [id number] 17:38:00 Test Item Value Reference Range Interpretation Comments Lymphocyte # (test code = Lymphocyte #) 1.7 1.0-5.5 [facility] [id number] 17:38:00 Test Item Value Reference Range Interpretation Comments Monocyte # (test code = 0.4 See_Comment [Au tomated message] The Monocyte #) system which ge nerated this result tra nsmitted reference range : <=0.8. The reference r karan was not used to int erpret this result as normal/abnormal . [facility] [id number] 17:38:00 Test Item Value Reference Range Interpretation Comments Eosinophil % (test code 0.2 See_Comment [Au tomated message] The = Eosinophil %) system which generated this result tra nsmitted reference range : <=0.5. The reference r karan was not used to int erpret this result as normal/abnormal . [facility] [id number] 17:38:00 Test Item Value Reference Range Interpretation Comments Results (test code = Reported (02/18/20 12:38 Results) PM) [facility]
[2022-11-07 05:42] LABS: Hematocrit 39.9 % (36.0-45.0); Lymphocytes % 20.6 % (15.3-44.8); MCV 86.7 fL (80-100); MPV 8.7 fL (7.6-11.3)
[2022-11-07 09:16] LABS: Potassium 3.5 mEq/L (3.5-5.1); Troponin High Sensitivity 3.4 pg/mL (<58.9)
--- NOTE | 2022-11-07 09:56 | ER ---
Nurse's Notes [facility] Name: Trudi Villavicencio Age: 47 yrs Sex: Female : 1975 Arrival Date: 11/07/2022 Time: 04:51 Bed 4 Private MD: Diagnosis: Palpitations;Headache Presentation: 11/07 05:14 Chief complaint: Patient states: "I have an irregular heart beat and my chest has been vc1 hurting for 3 days". Coronavirus screen: Vaccine status: Patient reports receiving the 2nd dose of the covid vaccine. [employer]; [employer] Client denies travel out of the [place] in the last 14 days. At this time, the client does not indicate any symptoms associated with coronavirus-19. Ebola Screen: Patient negative for fever greater than or equal to 101.5 degrees Fahrenheit, and additional compatible Ebola Virus Disease symptoms Patient denies exposure to infectious person. Patient denies travel to an Ebola-affected area in the 21 days before illness onset. No symptoms or risks identified at this time. Initial Sepsis Screen: Does the patient meet any 2 criteria? Does the patient have a suspected source of infection? No. Patient's initial sepsis screen is negative. Risk Assessment: Do you want to hurt yourself or someone else? Patient reports no desire to harm self or others. Onset of symptoms was November 04, 2022. 05:14 Method Of Arrival: Ambulatory vc1 05:14 Acuity: HOWIE 3 vc1 Triage Assessment: 05:16 General: Appears in no apparent distress. uncomfortable, Behavior is cooperative. Pain: vc1 Complains of pain in mid-sternal area Pain radiates to left lateral anterior chest Pain currently is 7 out of 10 on a pain scale. EENT: No deficits noted. No signs and/or symptoms were reported regarding the EENT system. Neuro: Reports headache. Cardiovascular: Reports chest pain, Chest pain is described as diffuse, Pain is 7 out of 10 on a pain scale. Respiratory: Airway is patent Respiratory effort is even, unlabored, Respiratory pattern is regular, symmetrical. GI: No deficits noted. No signs and/or symptoms were reported involving the gastrointestinal system. : No deficits noted. No signs and/or symptoms were reported regarding the genitourinary system. Derm: No deficits noted. No signs and/or symptoms reported regarding the dermatologic system. Musculoskeletal: No deficits noted. No signs and/or symptoms reported regarding the musculoskeletal system. Historical: - Allergies: 05:16 Aspirin; vc1 05:16 Codeine; vc1 05:16 Topamax; vc1 05:16 tramadol; vc1 - PMHx: 05:16 gastritis; neuropathy; osteoarthritis; Radiculopathy; vc1 - PSHx: 05:16 breast reduction; vc1 - Immunization history:: Client reports receiving the 2nd dose of the Covid vaccine. - Social history:: Smoking status: Patient denies any tobacco usage or history of. Screenin:18 Abuse screen: Denies threats or abuse. Nutritional screening: No deficits noted. vc1 Tuberculosis screening: No symptoms or risk factors identified. 05:18 [facility] ED Fall Risk Assessment (Adult) History of falling in the last 3 months, vc1 including since admission No falls in past 3 months (0 pts) Confusion or Disorientation No (0 pts) Intoxicated or Sedated No (0 pts) Impaired Gait No (0 pts) Mobility Assist Device Used No (0 pt) Altered Elimination No (0 pt) Score/Fall Risk Level 0 - 2 = Low Risk Oriented to surroundings, Maintained a safe environment, Educated pt \\T\\ family on fall prevention, incl call for assistance when getting out of bed. Assessment: 05:19 Pain: Pain began 2-3 days ago. vc1 05:32 General: Appears in no apparent distress. comfortable, Behavior is cooperative, lg3 anxious. Pain: Complains of pain in chest Pain does not radiate. Pain currently is 3 out of 10 on a pain scale. Neuro: No deficits noted. [place] Agitation-Sedation Scale (RASS): 0 - Alert and Calm Level of Consciousness is awake, alert, obeys commands, Oriented to person, place, time, situation. Cardiovascular: No deficits noted. Reports chest pain, Capillary refill < 3 seconds Clubbing of nail beds is absent JVD is absent Patient's skin is warm and dry. Respiratory: No deficits noted. Airway is patent Respiratory effort is even, unlabored, Respiratory pattern is regular, symmetrical. GI: No deficits noted. No signs and/or symptoms were reported involving the gastrointestinal system. Abdomen is round non-distended, obese. : No deficits noted. No signs and/or symptoms were reported regarding the genitourinary system. EENT: No deficits noted. No signs and/or symptoms were reported regarding the EENT system. Derm: No deficits noted. No signs and/or symptoms reported regarding the dermatologic system. Skin is intact, is healthy with good turgor, Skin is dry, Skin is normal, Skin temperature is warm. Musculoskeletal: No deficits noted. No signs and/or symptoms reported regarding the musculoskeletal system. Circulation, motion, and sensation intact. Range of motion: intact in all extremities. 05:53 General: notified lab of needed recollect. lg3 06:40 Reassessment: No changes from previously documented assessment. Patient and/or family vc1 updated on plan of care and expected duration. Pain level reassessed. Patient states symptoms have not improved. 07:19 General: Appears in no apparent distress. Behavior is calm, cooperative. Pain: iw Complains of pain in head and chest. Neuro: Level of Consciousness is awake, alert, obeys commands, Oriented to person, place, time, situation, Moves all extremities. Full function. Neuro: Reports headache frontal area. Cardiovascular: Patient's skin is warm and dry. Respiratory: Respiratory effort is even, unlabored, Respiratory pattern is regular, symmetrical. GI: Abdomen is non-distended. Musculoskeletal: Range of motion: intact in all extremities. Vital Signs: 05:14 Weight 100.7 kg; Height 5 ft. 3 in. ; Pain 7/10; vc1 05:24 BP 123 / 82; Pulse 73; Resp 16; Pulse Ox 99% ; vc1 06:40 BP 121 / 76; Pulse 67; Resp 13; Pulse Ox 97% on R/A; vc1 07:20 BP 115 / 77; Pulse 75; Resp 16; Pulse Ox 95% on R/A; Pain 8/10; iw 08:25 BP 125 / 86; Pulse 70; Resp 18; Pulse Ox 96% on R/A; ld1 05:14 Body Mass Index 39.33 (100.70 kg, 160.02 cm) vc1 05:14 Pain Scale: Adult vc1 07:20 Pain Scale: Adult iw ED Course: 04:53 Patient arrived in ED. ag3 05:00 Tod Blandon MD is Attending Physician. kdr 05:14 Lucina Kiran RN is Primary Nurse. vc1 05:16 Triage completed. vc1 05:18 Arm band placed on left wrist. vc1 05:19 Patient has correct armband on for positive identification. Placed in gown. Bed in low vc1 position. Call light in reach. Client placed on continuous cardiac and pulse oximetry monitoring. NIBP monitoring applied. 05:20 Patient maintains SpO2 saturation greater than 95% on room air. vc1 05:32 Door closed. Noise minimized. Warm blanket given. lg3 05:32 Inserted saline lock: 22 gauge in left forearm, using aseptic technique. Blood lg3 collected. 05:34 Basic Metabolic Panel Sent. lg3 05:34 CBC with Diff Sent. lg3 05:34 Troponin HS Sent. lg3 06:07 XRAY Chest (1 view) In Process Unspecified. EDMS 07:33 Attending Physician role handed off by Tod Blandon MD ms3 07:33 Sunil Douglas DO is Attending Physician. ms3 09:55 Elio Severino DO is Referral Physician. ms3 10:32 No provider procedures requiring assistance completed. IV discontinued, intact, ld1 bleeding controlled, No redness/swelling at site. Administered Medications: No medications were administered Medication: 05:19 VIS not applicable for this client. vc1 Outcome: 09:55 Discharge ordered by . ms3 10:32 Discharged to home ambulatory. ld1 10:32 Condition: stable 10:32 Discharge instructions given to patient, Instructed on discharge instructions, follow up and referral plans. Demonstrated understanding of instructions, follow-up care. 10:32 Patient left the ED. ld1 Signatures: Dispatcher [employer] EDMS Tod Blandon MD MD [facility] Kellee Tran RN RN Paula Mohan [facility] Haley Vaca RN RN Sunil Zuluaga DO DO ms3 Franchesca Douglas RN RN ld1 Lucina Kiran RN RN vc1
--- NOTE | 2022-11-07 09:56 | EDPHYS ---
Physician Documentation [facility] Name: Trudi Villavicencio Age: 47 yrs Sex: Female : 1975 Arrival Date: 11/07/2022 Time: 04:51 Bed 4 Private MD: ED Physician Sunil Douglas HPI: 11/07 09:56 This 47 yrs old Female presents to ER via Ambulatory with complaints of Irregular ms3 Pulse, Headache. 09:56 47-year-old female with past medical history of gastritis, neuropathy, osteoarthritis, ms3 radiculopathy presents for palpitations and headache for the last 2 to 3 days. Patient states her headache is moderate. Patient denies alleviating or inciting factors.. Historical: - Allergies: 05:16 Aspirin; vc1 05:16 Codeine; vc1 05:16 Topamax; vc1 05:16 tramadol; vc1 - PMHx: 05:16 gastritis; neuropathy; osteoarthritis; Radiculopathy; vc1 - PSHx: 05:16 breast reduction; vc1 - Immunization history:: Client reports receiving the 2nd dose of the Covid vaccine. - Social history:: Smoking status: Patient denies any tobacco usage or history of. ROS: 09:56 Constitutional: Negative for fever, and chills. Neck: Negative for injury, pain, and ms3 swelling. 09:56 Cardiovascular: Positive for palpitations. 09:56 Neuro: Positive for headache. 09:56 All other systems are negative. Exam: 05:16 ECG was reviewed by the Attending Physician. kdr 09:56 Constitutional: This is a well developed, well nourished patient who is awake, alert, ms3 and in no acute distress. Head/Face: Normocephalic, atraumatic. Neck: Trachea midline, no cervical lymphadenopathy. Supple, full range of motion without nuchal rigidity, or vertebral point tenderness. No Meningismus. Chest/axilla: Normal chest wall appearance and motion. Nontender with no deformity. Cardiovascular: Regular rate and rhythm with a normal S1 and S2. No gallops, murmurs, or rubs. Normal PMI, no JVD. No pulse deficits. Respiratory: Lungs have equal breath sounds bilaterally, clear to auscultation and percussion. No rales, rhonchi or wheezes noted. No increased work of breathing, no retractions or nasal flaring. Abdomen/GI: Soft, non-tender, with normal bowel sounds. No distension or tympany. No guarding or rebound. No evidence of tenderness throughout. Skin: Warm, dry with normal turgor. Normal color with no rashes, no lesions, and no evidence of cellulitis. MS/ Extremity: Pulses equal, no cyanosis. Neurovascular intact. Full, normal range of motion. Vital Signs: 05:14 Weight 100.7 kg; Height 5 ft. 3 in. ; Pain 7/10; vc1 05:24 BP 123 / 82; Pulse 73; Resp 16; Pulse Ox 99% ; vc1 06:40 BP 121 / 76; Pulse 67; Resp 13; Pulse Ox 97% on R/A; vc1 07:20 BP 115 / 77; Pulse 75; Resp 16; Pulse Ox 95% on R/A; Pain 8/10; iw 08:25 BP 125 / 86; Pulse 70; Resp 18; Pulse Ox 96% on R/A; ld1 05:14 Body Mass Index 39.33 (100.70 kg, 160.02 cm) vc1 05:14 Pain Scale: Adult vc1 07:20 Pain Scale: Adult iw MDM: 07:33 Patient medically screened. ms3 09:56 Differential Diagnosis ACS versus atrial fibrillation versus mitral valve prolapse vs ms3 palpitations. Data reviewed: vital signs, nurses notes, lab test result(s), EKG, radiologic studies, and as a result, I will discharge patient. Independent interpretation of the following test(s) in the Emergency Department EKG: See my EKG interpretation above color television console monitor: rate is 62 beats/min, Rhythm is normal sinus rhythm, regular, with no ectopy, Interpretation: normal rate, normal rhythm. Care significantly affected by the following Social Determinants of Health: Poor access to healthcare and/or lack of insurance. Counseling: I had a detailed discussion with the patient and/or guardian regarding: the historical points, exam findings, and any diagnostic results supporting the discharge/admit diagnosis, lab results, radiology results, the need for outpatient follow up, to return to the emergency department if symptoms worsen or persist or if there are any questions or concerns that arise at home. ED course: Discussed labs, chest x-ray, EKG findings with patient. Patient to follow-up with primary care physician in 1 to 2 days. Patient understands and agrees with plan. All questions were answered. Return precautions discussed include worsening symptoms, or any other concerns. On reevaluation patient is alert and oriented x4, no apparent distress, nontoxic-appearing, ambulatory number department, speaking full sentences. 11/07 05:29 Order name: Basic Metabolic Panel; Complete Time: 09:24 [facility] 11/07 05:29 Order name: CBC with Diff; Complete Time: 07:33 [facility] 11/07 05:29 Order name: Troponin HS; Complete Time: 09:24 11/07 05:29 Order name: XRAY Chest (1 view) [facility] 11/07 05:29 Order name: EKG; Complete Time: : 11/07 05: Order name: Cardiac monitoring; Complete Time: : 11/07 05:29 Order name: EKG - Nurse/Tech; Complete Time: : [facility] 11/07 05:29 Order name: IV Saline Lock; Complete Time: : [facility] 11/07 05:29 Order name: Labs collected and sent; Complete Time: : 11/07 05:29 Order name: O2 Per Protocol; Complete Time: : 11/07 05:29 Order name: O2 Sat Monitoring; Complete Time: : EC:16 Rate is 70 beats/min. Rhythm is regular, Sinus Rhythm with No ectopy. QRS [place] is kdr Normal. [place] interval is normal. QRS interval is normal. Clinical impression: NSR w/ Non-specific ST/T Changes. Administered Medications: No medications were administered Disposition Summary: 11/07/22 09:55 Discharge Ordered Location: Home ms3 Condition: Stable ms3 Diagnosis - Palpitations ms3 - Headache ms3 Followup: ms3 - With: Elio Severino DO - When: 2 - 3 days - Reason: Recheck today's complaints Discharge Instructions: - Discharge Summary Sheet ms3 - General Headache Without Cause ms3 - Palpitations, [place]-ct-Ohdh ms3 Forms: - Medication Reconciliation Form ms3 - Thank You Letter ms3 - Antibiotic Education ms3 - Prescription Opioid Use ms3 Signatures: Dispatcher [employer] EDTod Castro MD MD [facility] Haley Vaca RN RN lg3 Douglas, Sunil, DO DO ms3 Calcote, Lucina, RN RN vc1
[2022-11-07 10:42] VITALS: BP 125/86; O2SAT 96
--- NOTE | 2022-11-07 11:22 | RAD REPORT ---
EXAM DESCRIPTION: RAD - Chest Single View - 11/07/2022 6:05 am CLINICAL HISTORY: 47 years Female CHEST PAIN COMPARISON: Chest x-ray 07/14/2020 FINDINGS: Lung volumes diminished. Cardiac silhouette is normal in size. No pneumothorax. No large pleural effusion. No focal consolidation. No acute bony finding. IMPRESSION: No acute cardiopulmonary findings. Electronically signed by: Mike Vo MD 11/07/2022 6:19 AM CDT Due to temporary technical issues with the PACS/Fluency reporting system, reports are being signed by the in house radiologists without review as a courtesy to insure prompt reporting. The interpreting radiologist is fully responsible for the content of the report.
--- NOTE | 2022-11-08 04:53 | EKG ---
Test Date: 2022-11-07 Test Time: 05:13:50 [place] [place] [employer] Supervisor: RICCI MEASUREMENT RESULTS: Intervals: Rate: 70 MN: 166 QRSD: 80 QT: 382 QTc: 412 [place]: P: 26 MN: 166 QRS: 60 T: -38 INTERPRETIVE STATEMENTS: Normal sinus rhythm Nonspecific T wave abnormality Abnormal ECG Compared to ECG 02/17/2022 21:10:51 No significant changes Electronically Signed On 11-08-22 04:52:02 CDT by Justin Gracia
== END 2022-11-07 10:32 | disposition home or self-care (01) ==
LOC: ER 04:51
DX: R00.2 Palpitations (principal); R51.9 Headache, unspecified
CPT/HCPCS: 36415; 71045; 80048; 84484; 85025; 93005; 99284

== ENCOUNTER 2022-11-11 12:45 | Emergency (ER) | payer SELFPAY ==
--- OUTSIDE RECORDS SUMMARY | 2022-11-11 12:54 | XMS REPORT | Continuity of Care Document ---
:1975 Author Organization [facility] t Address [address] [facility] [address] [place] [address] Care Team Providers Name Role Phone Asked, No Pcp Primary Care Physician Unavailable Danie Garcia Attending Clinician Unavailable ESTER PERES Attending Clinician Unavailable ALFONZO ALARCON Attending Clinician Unavailable Doctor Unassigned, Mccalla Attending Clinician Unavailable HAMZAH CAMPBELL Attending Clinician Unavailable CAT PRITCHETT Attending Clinician Unavailable Cat Pritchett DO Attending Clinician Marina PERALTA, Tony Hdz Attending Clinician Alfonzo Alarcon MD Attending Clinician [phone] Malcom Espinal Attending Clinician ROYCE PRUETT [...] Date Expiration Date S ource [place] [id number] 2020 - OUT OF STATE 0 00:00:00 BCBS 2 [id number] 2021 0 00:00:00 [employer] 6 [id number] 2020 Common Spiri t Blue Shield of 00:00:00 - [facility] Problems Condition Condition Condition Status Onset [...] f medial medial 00:00: g of this [place] meniscus meniscus 00 note Medica l of left of left might be Branch knee as knee as different current current from the injury, injury, original. initial initial Added encounter encounter automatic ally from request for surgery [id number] Secondary Secondary Disease Active Overview: Univers oligomenor oligomenor 4-08 Formattin ity of pete pete 00:00: g of this [place] 00 note Medical might be Branch different from the original. 10/21/18 - DepoProve ra started05/03 - EMB benign Vitamin D Vitamin D Disease Active Uni vers deficiency deficiency -19 it y of 00:00: [place] [facility] Shoulder Shoulder Disease Active Unive [...] syndrome 1- 04:01:02 l (disorder) (disorder) 00:00: He rmann Active 00 07/16/1976 Problem 02/28/2020 reports reaction from ASP[facility] Asthma Asthma Problem Active 2022-07-24 Lev trupti (disorder) (disorder) 12:01:02 l Active [place] Problem 07/24/2022 [facility] Gastritis Gastritis Problem Active 2022-07-24 Memoria (disorder) (disorder) 12:01:02 l Active [place] Problem 07/24/2022 [facility] Hypertensi Hypertens Problem Active 2022-07-24 Memoria ve shireen 12:01:02 l disorder, disorder, Herm mckenna systemic systemic arterial arterial (disorder) (disorder) Active Problem 07/24/2022 [facility] Hypothyroi Hypothyro Problem Active 2022-07-24 Memoria dism idism 12:01:02 l (disorder) (disorder) He rmann Active Problem 07/24/2022 [facility] Migraine Migraine Problem Active 2022-07-24 Memoria (disorder) (disorder) 12:01:02 l Active Lcua Problem 07/24/2022 [facility] Morbid Morbid Problem Active 2022-07-24 [facility] obesity obesity 12:01:02 l (disorder) (disorder) He rmann Active Problem 07/24/2022 [facility] 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 12:01:02 l (disorder) (disorder) He ann Active Problem 07/24/2022 [facility] Hemangioma Hemangiom Problem Active 2022-07-24 Memoria of a of 12:01:02 l intracrani intracrani He barbara al al structure structure (disorder) (disorder) Active Problem 07/24/2022 [facility] Ankle pain Ankle Problem Active 2022-07-24 M emoria (finding) pain 12:01:02 l (finding) [place] Active Problem 07/24/2022 [facility] Paresthesi Paresthes Problem Active 2022-07-24 Memoria a ia 12:01:02 l (finding) (finding) Herm mckenna Active Problem 07/24/2022 [facility] Lumbar Lumbar Problem Active 2022-07-24 [facility] radiculopa radiculopa 12:01:02 l thy thy Luca (disorder) (disorder) Active Problem 07/24/2022 [facility] Peripheral Periphera Problem Active 2022-07-24 Memoria nerve l nerve 12:01:02 l disease disease [place] (disorder) (disorder) Active Problem 07/24/2022 [facility] Acid Acid Problem Active 2020-02-28 Memor ia reflux reflux 04:01:02 l (finding) (finding) Herm mckenna Active Problem 02/28/2020 [facility] Allergy - Allergy - Problem Active 2020-02-28 Memoria specialty specialty 04:01:02 l (qualifier (qualifier He rmann value) value) Active Problem 02/28/2020 [facility] Fracture Fracture Problem Active 2020-02-28 [facility] 04:01:02 l (disorder) (disorder) He rmann Active Problem 02/28/2020 [facility] Neuropathy Problem Active 2020-02-28 M emoria (disorder) Neuropathy 04:01:02 l (disorder) Burak lozano Active Problem 02/28/2020 [facility] [id number] Multiple Problem Commo n joint pain [facility] [id number] Neuropathi Problem Co mmon c pain [facility] [id number] Fibromyalg Problem Co mmon ia Spirit affecting - [facility]I multiple [facility] [id number] 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 d back Medical pain Center laterality , unspecifie d chronicity [id number] Anxiety Problem Common [facility] Acute Acute Problem Common bronchitis bronchitis Sp elana , - CHI unspecifie [facility] Essential Essential Problem Com mon hypertensi hypertensi Sp elana on on [facility] Acute Acute Problem Common upper upper Spirit respirator respirator - CHI y y St infection infection, [place] es unspecifie Medica l d Center [id number] History of Problem Co mmon hiatal Spirit hernia - [facility] Asthma Uncomplica Problem Commo n without margaret Spirit status asthma, - CHI asthmaticu unspecifie St s d asthma [facility] severity, Medical unspecifie Center d whether persistent Seasonal Seasonal Problem Commo n allergic allergic Spirit rhinitis rhinitis, - CHI unspecifie [facility] [id number] Depression Problem Co mmon with Spirit anxiety [facility] [id number] Suicidal Problem Common ideation [facility] [id number] Non-intrac Problem Com mon table Spirit vomiting - CHI with St nausea, [facility] unspecifie Medica l d vomiting Center type [id number] Epigastric Problem Com mon pain [facility] [id number] Endometria Problem Co mmon l cancer Spirit - [facility] [id number] Slurred Problem Commo n speech Spirit - [facility] [id number] Moderate Problem Comm on asthma Spirit without - CHI complicati [facility]ie Medica [facility] d whether Center persistent [id number] Noncomplia Problem Co mmon nce with Spirit medication - CHI regimen [facility] [id number] Gastroesop Problem Co mmon hageal Spirit reflux - CHI disease [facility] esophagiti [facility] Center [id number] Chronic Problem Commo n pruritus Spirit - [facility] Osteochond Osteochond Problem Active U T ritis [...] active st problems problems Hospit a l Disc Disc Disease Active Univers disease, disease, ity of degenerati degener[place] ve, lumbar ve, lumbar Me dical or or Branch lumbosacra lumbosacra l l Cervical Cervical Disease Active Unive rs herniated herniated ity of disc disc [facility] Lumbar Lumbar Disease Active Univers herniated herniated ity of disc disc [facility] Cervical Cervical Disease Active Unive rs herniated herniated ity of disc disc [facility] History of Past Illness Condition Condition Condition Status Onset Resolution Last Treating Co mments Source Name Details Category Date Date Treatment Clinician Date Nondisplac Nondispla Problem 2020-02-28 2020-02-28 Emma ed dome day dome 02-25 04:01:02 04:01:02 [...] Other Me thodi Aspirin ty to Comments) 724 reaction( st adverse 00:00: s): [facility] reaction 00 syndrome, l s to [...] Active Other Other Rosi Acetylsa ty to 7-24 reaction( Seybo ld licylate adverse 00:00: s): Maciel reaction 00 syndrome, s UnknownRe yes Syndrome Yung Syndrome Yung Syndrome Codeine Propensi Active Nausea and Other Sae maisha ty to Vomiting 24 reaction( Seybo ld adverse 00:00: s): reaction 00 Unknown s codeine Allergy Active [facility] to drug Physici (finding ans ) codeine codeine Active Memoria l Luca aspirin aspirin Active Memoria l [place] Topamax Topamax Active Memoria l Luca traMADol traMADol Active Memori a l [place] Codeine Codeine Active Unknown Common [facility] topirama topirama Active Unknown Commo n te te [facility] aspirin aspirin Active Unknown [facility] Family History Family Member Diagnosis Comments Start Date Stop Date Source Maternal grandmother Diabetes [facility] Maternal grandmother Stroke [facility] Natural mother Heart attack [facility] Natural mother Heart disease [facility] Natural father Diabetes [facility] Natural father Heart attack [facility] Maternal aunt Cancer [facility] Social History Social Habit Start Date Stop Date Quantity Comments Source History of Tobacco Common Spirit - Use [facility] Gender identity [facility] Sexual orientation Method ist Hospital Exposure to Not sure Rosi armendariz SARS-CoV-2 (event) Alcohol intake 2021-05-19 2021-05-19 Lifetime Rastafarian 00:00:00 00:00:00 non-drinker Hospital (finding) Tobacco use and 2021-05-19 2021-05-19 Smokeless Rastafarian exposure 00:00:00 00:00:00 tobacco non-user Hospital Sex Assigned At [birth year] Rast[facility]arian 00:00:00 00:00:00 Hospital Smoking Status Start Date Stop Date Source Tobacco smoking status [facility] Medications Ordered Filled Start Stop Current [...] capsule mupirocin 2020-07 Yes Apply Methodi (BACTROBAN) - topically. st 2 % 10:54: Hospita ointment 00 l nitrofurant 2020-07 Yes nitrofuran Methodi oin, 07-[address] macrocrysta 10:54: monohydrat Hospita l-monohydra 00 e/macrocry l te, stals 100 (MACROBID) mg capsule 100 MG capsule mupirocin 2020-07 Yes Apply Methodi (BACTROBAN) - topically. st 2 % 10:54: Hospita ointment 00 l nitrofurant 2020-07 Yes nitrofuran Methodi oin, 07-[address] macrocrysta 10:54: monohydrat Hospita l-monohydra 00 e/macrocry l te, stals 100 (MACROBID) mg capsule 100 MG capsule mupirocin 2020-07 Yes Apply Methodi (BACTROBAN) - topically. st 2 % 10:54: Hospita ointment [...] capsule mupirocin 2020-07 Yes Apply Methodi (BACTROBAN) - topically. st 2 % 10:54: Hospita ointment [...] 100 (MACROBID) mg capsule 100 MG capsule eletriptan 2020-07 Yes eletriptan M ethodi (RELPAX) [...] 100 mg Hospita tablet 59 tablet l doxycycline 2020-07 Yes doxycyclin Methodi (VIBRA-TABS [...] ON ADMINISTER ED AT TIME OF DISPENSING eletriptan 2020-07 Yes eletriptan M ethodi (RELPAX) [...] qv 2020-07 Yes Flublok Meth jason 2018,yr -[address] up,rc,PF, 10:53: Hos helga [...] vac qv 2020-07 Yes Flublok Meth jason 07-[address] up,rc,PF, 10:53: Hos helga (Flublok 59 (PF) 180 l Quad mcg (45 , mcg x PF,) 180 4)/0.5 mL mcg (45 mcg IM syringe x 4)/0.5 mL PHARMACIST syringe ADMINISTER ED IMMUNIZATI ON ADMINISTER ED AT TIME OF DISPENSING doxycycline 2020-07 Yes doxycyclin Methodi (VIBRA-TABS 1-[address] ) 100 MG 10:53: 100 mg Hospita tablet 59 tablet l bromphenira 2020-07 Yes bromphenir Methodi mine-pseudo 1-04 [...] syrup mg-10 mg/5 mL oral syrup budesonide 2021-1 Yes 1mg Inhale 1 Met hodi (PULMICORT) [...] 32 on daily Suspension Cyclobenzap 2020-07 Yes [id number] 10mg Take 1 Rosi rine HCl 10 [...] tab, PO, l Tablet 21:15: PRN, PRN [place] [Ubrelvy] 00 Other -See Comment, X 30 day, # 10 tab, 1 Refill(s), Pharmacy: [facility], For Migraine. May repeat dose after 2 hours. Max dose 200 mg/ 24 hours, 152.4, cm, 03/16/21 8:31:00 CDT, Height, 112.727, kg, 03/16/21 8... ubrogepant 2020-0 Yes 100 mg = 1 M emoria 100 MG Oral 9-10 tab, PO, l Tablet 21:15: PRN, PRN Luca [Ubrelvy] 00 Other -See Comment, X 30 day, # 10 tab, 1 Refill(s), Pharmacy: [facility], For Migraine. May repeat dose after 2 hours. Max dose 200 mg/ 24 hours, 152.4, cm, 03/16/21 8:31:00 CDT, Height, 112.727, kg, 03/16/21 8... ubrogepant 1-0 Yes 100 mg = 1 M emoria 100 MG Oral 9-10 tab, PO, l Tablet 21:15: PRN, PRN Luca [Ubrelvy] 00 Other -See Comment, X 30 day, # 10 tab, 1 Refill(s), Pharmacy: [facility], For Migraine. May repeat dose after 2 hours. Max dose 200 mg/ 24 hours, 152.4, cm, 03/16/21 8:31:00 CDT, Height, 112.727, kg, 03/16/21 8... ubrogepant 2021-0 Yes 100 mg = 1 M emoria 100 MG Oral 9-10 tab, PO, l Tablet 21:15: PRN, PRN [place] [Ubrelvy] 00 Other -See Comment, X 30 day, # 10 tab, 1 Refill(s), Pharmacy: [facility], For Migraine. May repeat dose after 2 hours. Max dose 200 mg/ 24 hours, 152.4, cm, 03/16/21 8:31:00 CDT, Height, 112.727, kg, 03/16/21 8... ubrogepant 2021-0 Yes 100 mg = 1 M ethodi (Ubrelvy) 9-10 tab, PO, st 100 mg 00:00: PRN, PRN Hospita tablet 00 Other -See l Comment, X 30 day, # 10 tab, 1 Refill(s), Pharmacy: [facility], For Migraine. May repeat dose after 2 hours. Max dose 200 mg/ 24 hours, 152.4, cm, 03/16/21 8:31:00 CDT, Height, 112.727, kg, 03/16/21 8... ubrogepant 2021-0 Yes 100 mg = 1 M ethodi (Ubrelvy) 9-10 tab, PO, st 100 mg 00:00: PRN, PRN Hospita tablet 00 Other -See l Comment, X 30 day, # 10 tab, 1 Refill(s), Pharmacy: [facility], For Migraine. May repeat dose after 2 hours. Max dose 200 mg/ 24 hours, 152.4, cm, 03/16/21 8:31:00 CDT, Height, 112.727, kg, 03/16/21 8... ubrogepant 2021-0 Yes 100 mg = 1 M ethodi (Ubrelvy) 9-10 tab, PO, st 100 mg 00:00: PRN, PRN Hospita tablet 00 Other -See l Comment, X 30 day, # 10 tab, 1 Refill(s), Pharmacy: [facility], For Migraine. May repeat dose after 2 hours. Max dose 200 mg/ 24 hours, 152.4, cm, 03/16/21 8:31:00 CDT, Height, 112.727, kg, 03/16/21 8... ubrogepant 2021-0 Yes 100 mg = 1 M ethodi (Ubrelvy) 9-10 tab, PO, st 100 mg 00:00: PRN, PRN Hospita tablet 00 Other -See l Comment, X 30 day, # 10 tab, 1 Refill(s), Pharmacy: [facility], For Migraine. May repeat dose after 2 hours. Max dose 200 mg/ 24 hours, 152.4, cm, 03/16/21 8:31:00 CDT, Height, 112.727, kg, 03/16/21 8... ubrogepant 2021-0 Yes 100 mg = 1 M ethodi (Ubrelvy) 9-10 tab, PO, st 100 mg 00:00: PRN, PRN Hospita tablet 00 Other -See l Comment, X 30 day, # 10 tab, 1 Refill(s), Pharmacy: [facility], For Migraine. May repeat dose after 2 hours. Max dose 200 mg/ 24 hours, 152.4, cm, 03/16/21 8:31:00 CDT, Height, 112.727, kg, 03/16/21 8... ubrogepant 2021-0 Yes 100 mg = 1 M ethodi (Ubrelvy) 9-10 tab, PO, st 100 mg 00:00: PRN, PRN Hospita tablet 00 Other -See l Comment, X 30 day, # 10 tab, 1 Refill(s), Pharmacy: [facility], For Migraine. May repeat dose after 2 hours. Max dose 200 mg/ 24 hours, 152.4, cm, 03/16/21 8:31:00 CDT, Height, 112.727, kg, 03/16/21 8... ubrogepant 2021-0 Yes 100 mg = 1 M ethodi (Ubrelvy) 9-10 tab, PO, st 100 mg 00:00: PRN, PRN Hospita tablet 00 Other -See l Comment, X 30 day, # 10 tab, 1 Refill(s), Pharmacy: [facility], For Migraine. May repeat dose after 2 hours. Max dose 200 mg/ 24 hours, 152.4, cm, 03/16/21 8:31:00 CDT, Height, 112.727, kg, 03/16/21 8... ubrogepant 2021-0 No 100 mg = 1 M emoria 100 MG Oral 9-03 tab, PO, l Tablet 16:30: PRN, PRN [place] [Ubrelvy] 00 Other -See Comment, X 30 day, # 10 tab, 1 Refill(s), [facility]acy: [facility], For Migraine. May repeat dose after 2 hours. Max dose 200 mg/ 24 hours, 152.4, cm, 03/16/21 8:31:00 CDT, Height, 112.727, kg, 03/16/21 8:... ubrogepant 2021-0 No 100 mg = 1 M emoria 100 MG Oral 9-03 tab, PO, l Tablet 16:30: PRN, PRN Luca [Ubrelvy] 00 Other -See Comment, X 30 day, # 10 tab, 1 Refill(s), Pharmacy: [facility], For Migraine. May repeat dose after 2 hours. Max dose 200 mg/ 24 hours, 152.4, cm, 03/16/21 8:31:00 CDT, Height, 112.727, kg, 03/16/21 8:... ubrogepant 2021-0 No 100 mg = 1 M emoria 100 MG Oral 9-03 tab, PO, l Tablet 16:30: PRN, PRN Luca [Ubrelvy] 00 Other -See Comment, X 30 day, # 10 tab, 1 Refill(s), Pharmacy: [facility], For Migraine. May repeat dose after 2 hours. Max dose 200 mg/ 24 hours, 152.4, cm, 03/16/21 8:31:00 CDT, Height, 112.727, kg, 03/16/21 8:... ubrogepant 2021-0 No 100 mg = 1 M emoria 100 MG Oral 9-03 tab, PO, l Tablet 16:30: PRN, PRN [place] [Ubrelvy] 00 Other -See Comment, X 30 day, # 10 tab, 1 Refill(s), Pharmacy: [facility], For Migraine. May repeat dose after 2 hours. Max dose 200 mg/ 24 hours, 152.4, cm, 03/16/21 8:31:00 CDT, Height, 112.727, kg, 03/16/21 8:... amitriptyli 2020-0 Yes = 1 tab, Me moria ne 75 mg 9-01 PO, l oral tablet 23:57: Bedtime, # [place] 00 30 ea, 5 Refill(s), Pharmacy: [facility], 152.4, cm, 03/16/21 8:31:00 CDT, Height, 112.727, kg, 03/16/21 8:31:00 CDT, Weight amitriptyli 2020-0 Yes = 1 tab, Me moria ne 75 mg 9-01 PO, l oral tablet 23:57: Bedtime, # Luca 00 30 ea, 5 Refill(s), Pharmacy: [facility], 152.4, cm, 03/16/21 8:31:00 CDT, Height, 112.727, kg, 03/16/21 8:31:00 CDT, Weight amitriptyli 2020-0 Yes = 1 tab, Me moria ne 75 mg 9-01 PO, l oral tablet 23:57: Bedtime, # [place] 00 30 ea, 5 Refill(s), Pharmacy: [facility], 152.4, cm, 03/16/21 8:31:00 CDT, Height, 112.727, kg, 03/16/21 8:31:00 CDT, Weight amitriptyli 2020-0 Yes = 1 tab, Me moria ne 75 mg 9-01 PO, l oral tablet 23:57: Bedtime, # Luca 00 30 ea, 5 Refill(s), Pharmacy: [facility], 152.4, cm, 03/16/21 8:31:00 CDT, Height, 112.727, kg, 03/16/21 8:31:00 CDT, Weight Amitriptyli 0 Yes amitriptyl Rosi ne HCl 75 9- ine 75 mg Seybo ld MG oral 00:00: tablet Tablet 00 ubrogepant 0 No 100 mg = 1 M emoria 100 MG Oral 8-23 tab, PO, l Tablet 21:26: PRN, PRN Luca [Ubrelvy] 00 Other -See Comment, X 30 day, # 10 tab, 1 Refill(s), Pharmacy: [facility], For Migraine. May repeat dose after 2 hours. Max dose 200 mg/ 24 hours, 152.4, cm, 02/01/21 13:49:00 CDT, Height, 116.818, kg, 02/01/21 1... ubrogepant No 100 mg = 1 M emoria 100 MG Oral 8-23 tab, PO, l Tablet 21:26: PRN, PRN [place] [Ubrelvy] 00 Other -See Comment, X 30 day, # 10 tab, 1 Refill(s), Pharmacy: [facility], For Migraine. May repeat dose after 2 hours. Max dose 200 mg/ 24 hours, 152.4, cm, 02/01/21 13:49:00 CDT, Height, 116.818, kg, 02/01/21 1... ubrogepant No 100 mg = 1 M emoria 100 MG Oral 8-23 tab, PO, l Tablet 21:26: PRN, PRN Luca [Ubrelvy] 00 Other -See Comment, X 30 day, # 10 tab, 1 Refill(s), Pharmacy: [facility], For Migraine. May repeat dose after 2 hours. Max dose 200 mg/ 24 hours, 152.4, cm, 02/01/21 13:49:00 CDT, Height, 116.818, kg, 02/01/21 1... ubrogepant 2020-0 No 100 mg = 1 M emoria 100 MG Oral 8-23 tab, PO, l Tablet 21:26: PRN, PRN [place] [Ubrelvy] 00 Other -See Comment, X 30 day, # 10 tab, 1 Refill(s), Pharmacy: [facility], For Migraine. May repeat dose after 2 hours. Max dose 200 mg/ 24 hours, 152.4, cm, 02/01/21 13:49:00 CDT, Height, 116.818, kg, 02/01/21 1... Polytrim Polytrim 0 2020- No 1{drop_ QID Polytrim 02394-4.1 69680-9.1 02-2316 into_af 92989-9.1 UNIT/ML UNIT/ML 00:00: 00:00 fected_ UNIT/ML 00 :00 eye} ibuprofen 2020-0 Yes Methodi (ADVIL) 600 8-04 [...] MG tablet 00:00: Hospita 00 l Ibuprofen 2021-0 Yes Rosi 600 MG oral [...] Cyclobenza rine HCl 10 rine HCl 10 02-16- t_at_be dex HCl MG MG 00:00: 00:00 [...] No BID Ibuprofen 600 MG 600 MG 02-16-18 600 MG 00:00: 00:00 00 :00 Ibuprofen Ibuprofen 2020- No BID Ibuprofen 600 MG 600 MG 02-1618 600 MG 00:00: 00:00 00 :00 methylPREDN 2020-0 Yes [id number] 84mg Take 21 Univers ISolone 7-30 tablets by ity of (MEDROL, 00:00: mouth [place] GENARO,) 4 mg 00 SEE-INSTRU Med ical tablets CTIONS. Branch follow package directions methylPREDN 2020-0 Yes [id number] 84mg Take 21 Univers ISolone 7-30 tablets by ity of (MEDROL, 00:00: mouth [place] GENARO,) 4 mg 00 SEE-INSTRU Med ical tablets CTIONS. Branch follow package directions methylPREDN 2020-0 Yes [id number] 84mg Take 21 Univers ISolone 7-30 tablets by ity of (MEDROL, 00:00: mouth [place] GENARO,) 4 mg 00 SEE-INSTRU Med ical tablets CTIONS. Branch follow package directions methylPREDN 2020-0 Yes [id number] 84mg Take 21 Univers ISolone 7-30 tablets [...] 25 MCG 00:00: 25 MCG 00 medroxyPROG 2020- Yes every 24 Ke lsey ESTERone 5-13 hours Seybold Acetate 10 00:00: MG oral 00 Tablet medroxyPROG Yes [id number] 20mg Take 2 Univers ESTERone 5-13 tablets by ity o f (PROVERA) 00:00: mouth [place] 10 mg 00 daily. Medical tablet Branch medroxyPROG 2021-0 Yes [id number] 20mg Take 2 Univers ESTERone 5-13 tablets by ity o f (PROVERA) 00:00: mouth [place] 10 mg 00 daily. Medical tablet Branch medroxyPROG 2021-0 Yes [id number] 20mg Take 2 Univers ESTERone 5-13 tablets by ity o f (PROVERA) 00:00: mouth [place] 10 mg 00 daily. Medical tablet Branch medroxyPROG 2021-0 Yes [id number] 20mg Take 2 Univers ESTERone 5-13 tablets by ity o f (PROVERA) 00:00: mouth [place] 10 mg 00 daily. 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, Height, 113.636, kg, 09/24/20 13:34:00 [employer]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, Weight rizatriptan 2020-0 Yes 5 mg = 1 Me moria 5 MG Oral 3-12 tab, PO, l Tablet 20:23: ONCE, PRN Burak n [Maxalt] 00 for migraine headache, # 9 tab, 1 Refill(s), Pharmacy: [facility], 160.02, cm, 09/24/20 13:34:00 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, Height, 113.636, kg, 09/24/20 13:34:00 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, Weight rizatriptan 2021-0 Yes 5 mg = 1 Me moria 5 MG Oral 3-12 tab, PO, l Tablet 20:23: ONCE, PRN Burak n [Maxalt] 00 for migraine headache, # 9 tab, 1 Refill(s), Pharmacy: [facility], 160.02, cm, 09/24/20 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:00 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, Height, 113.636, kg, 09/24/20 13:34:00 [employer]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, Weight Maxalt 5 mg 2021-0 Yes 5 mg = 1 Me moria oral tablet 3-12 tab, PO, l 20:23: ONCE, PRN [place] 00 for migraine headache, # 9 tab, 1 Refill(s), Pharmacy: [facility], 160.02, cm, 09/24/20 13:34:00 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, Height, 113.636, kg, 09/24/20 13:34:00 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, Weight rizatriptan 1-0 Yes 5 mg = 1 Me moria 5 MG Oral 3-12 tab, PO, l Tablet 20:23: ONCE, PRN Burak n [Maxalt] 00 for migraine headache, # 9 tab, 1 Refill(s), Pharmacy: [facility], 160.02, cm, 09/24/20 13:34:00 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, Height, 113.636, kg, 09/24/20 13:34:00 [employer]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, Weight Rizatriptan 1-0 Yes rizatripta Rosi Benzoate 5 3-12 n 5 mg Seybold MG oral 00:00: tablet Tablet 00 TAKE 1 TABLET BY MOUTH ONCE DAILY NEEDED FOR HEADACHE MIGRAINE rizatriptan 2020-0 Yes 5 mg = 1 Me moria 5 MG Oral 9-15 tab, PO, l Tablet 22:44: ONCE, PRN Burak n [Maxalt] 00 for migraine headache, # 9 tab, 1 Refill(s), Pharmacy: [facility], 152.4, cm, 01/15/20 15:04:00 CDT, Height, 115.455, kg, 01/15/20 15:04:00 CDT, Weight rizatriptan 2020-0 Yes 5 mg = 1 Me moria 5 MG Oral 9-15 tab, PO, l Tablet 22:44: ONCE, PRN Burak n [Maxalt] 00 for migraine headache, # 9 tab, 1 Refill(s), Pharmacy: [facility], 152.4, cm, 01/15/20 15:04:00 CDT, Height, 115.455, kg, 01/15/20 15:04:00 CDT, Weight rizatriptan 2020-0 Yes 5 mg = 1 Me moria 5 MG Oral 9-15 tab, PO, l Tablet 22:44: ONCE, PRN Burak n [Maxalt] 00 for migraine headache, # 9 tab, 1 Refill(s), Pharmacy: [facility], 152.4, cm, 01/15/20 15:04:00 CDT, Height, 115.455, kg, 01/15/20 15:04:00 CDT, Weight rizatriptan 2020-0 Yes 5 mg = 1 Me moria 5 MG Oral 9-15 tab, PO, l Tablet 22:44: ONCE, PRN Burak n [Maxalt] 00 for migraine headache, # 9 tab, 1 Refill(s), Pharmacy: [facility], 152.4, cm, 01/15/20 15:04:00 CDT, Height, 115.455, kg, 01/15/20 15:04:00 CDT, Weight Misc 2020-0 No 900 mL, Memoria Medication 8- Soln-IV, l 15:27: IV, Once, [place] 00 first dose 02/26/20 10:27:00 CDT, stop date 02/26/20 10:27:00 CDT Misc 2020-0 No 900 mL, Memoria Medication 8- Soln-IV, l 15:27: IV, Once, [place] 00 first dose 02/26/20 10:27:00 CDT, stop [...] ia 8-13 0.5 mL, l 15:20: Injection, 00 IV Push, q10min PRN for pain [...] Me moria 8-13 mL, l 15:20: Injection, [place] 00 IV Push, q15min PRN for nausea, order duration: 2 doses, first dose 02/26/20 10:20:00 CDT, stop date Limited # of times Promethazin 2020-0 No 12.5 mg = M emoria e 8-13 0.5 mL, l 15:20: Injection, [place] 00 IM, Once PRN for vomiting, first dose 02/26/20 10:20:00 CDT fentaNYL 2020-0 No 25 mcg = Memor ia 8-13 0.5 mL, l 14:50: Injection, [place] 00 IV, Once, first dose 02/26/20 9:50:00 CDT, stop date 02/26/20 9:50:00 CDT fentaNYL 2020-0 No 25 mcg = Memor ia 8-13 0.5 mL, l 14:50: Injection, [place] 00 IV, Once, first dose 02/26/20 9:50:00 CDT, stop date 02/26/20 9:50:00 CDT fentaNYL 2020-0 No 25 mcg = Memor ia 8-13 0.5 mL, l 14:50: Injection, [place] 00 IV, Once, first dose 02/26/20 9:50:00 [...] ia 8-13 0.5 mL, l 14:16: Injection, 00 IV, Once, first dose 02/26/20 9:16:00 [...] Me moria 8-13 mL, l 12:53: Injection, [place] 00 IV, Once, first dose 02/26/20 7:53:00 CDT, stop date 02/26/20 7:53:00 CDT dexamethaso 2020-0 No 8 mg = 2 Me moria ne 8-13 mL, l 12:53: Injection, [place] 00 IV, Once, first dose 02/26/20 7:53:00 CDT, stop date 02/26/20 7:53:00 CDT ketorolac 2020-0 No 30 mg = 1 Mem oria 8-13 mL, l 12:53: Injection, [place] 00 IV, Once, first dose 02/26/20 7:53:00 CDT, stop date 02/26/20 7:53:00 CDT ceFAZolin 2020-0 No 2 gm, Memoria 8-13 Soln-IV, l 12:53: IV [place] 00 Piggyback, Once, first dose 02/26/20 7:53:00 [...] Mem oria 8-13 mL, l 12:53: Injection, [place] 00 IV, Once, first dose 02/26/20 7:53:00 CDT, stop date 02/26/20 7:53:00 CDT ceFAZolin 2020-0 No 2 gm, Memoria 8-13 Soln-IV, l 12:53: IV [place] 00 Piggyback, Once, first dose 02/26/20 7:53:00 CDT, stop date 02/26/20 7:53:00 CDT ondansetron 2020-0 No 4 mg = 2 Me moria 8-13 mL, l 12:53: Injection, [place] 00 IV, Once, first dose 02/26/20 7:53:00 CDT, stop date 02/26/20 7:53:00 CDT dexamethaso 2020-0 No 8 mg = 2 Me moria ne 8-13 mL, l 12:53: Injection, [place] 00 IV, Once, first dose 02/26/20 7:53:00 CDT, stop date 02/26/20 7:53:00 CDT ketorolac 2020-0 No 30 mg = 1 Mem oria 8-13 mL, l 12:53: Injection, [place] 00 IV, Once, first dose 02/26/20 7:53:00 CDT, stop date 02/26/20 7:53:00 CDT ceFAZolin 2020-0 No 2 gm, Memoria 8-13 Soln-IV, l 12:53: IV [place] 00 Piggyback, Once, first dose 02/26/20 7:53:00 CDT, stop date 02/26/20 7:53:00 CDT ondansetron 2020-0 No 4 mg = 2 Me moria 8-13 mL, l 12:53: Injection, [place] 00 IV, Once, first dose 02/26/20 7:53:00 CDT, stop date 02/26/20 7:53:00 CDT dexamethaso 2020-0 No 8 mg = 2 Me moria ne 8-13 mL, l 12:53: Injection, [place] 00 IV, Once, first dose 02/26/20 7:53:00 CDT, stop date 02/26/20 7:53:00 CDT ketorolac 2020-0 No 30 mg = 1 Mem oria 8-13 mL, l 12:53: Injection, [place] 00 IV, Once, first dose 02/26/20 7:53:00 CDT, stop date 02/26/20 7:53:00 CDT lidocaine 2020-0 No 100 mg = 5 Me moria 8-13 mL, l 12:41: Injection, [place] 00 IV, Once, first dose 02/26/20 7:41:00 CDT, stop date 02/26/20 7:41:00 CDT propofol 2020-0 No 200 mg = Memor ia 8-13 20 mL, l 12:41: Emulsion, [place] 00 IV, Once, first dose 02/26/20 7:41:00 CDT, stop date 02/26/20 7:41:00 CDT lidocaine 2020-0 No 100 mg = 5 Me moria 8-13 mL, l 12:41: Injection, [place] 00 IV, Once, first dose 02/26/20 7:41:00 CDT, stop date 02/26/20 7:41:00 CDT propofol 2020-0 No 200 mg = Memor ia 8-13 20 mL, l 12:41: Emulsion, [place] 00 IV, Once, first dose 02/26/20 7:41:00 CDT, stop date 02/26/20 7:41:00 CDT lidocaine 2020-0 No 100 mg = 5 Me moria 8-13 mL, l 12:41: Injection, [place] 00 IV, Once, first dose 02/26/20 7:41:00 CDT, stop date 02/26/20 7:41:00 CDT propofol 2020-0 No 200 mg = Memor ia 8-13 20 mL, l 12:41: Emulsion, [place] 00 IV, Once, first dose 02/26/20 7:41:00 CDT, stop date 02/26/20 7:41:00 CDT lidocaine 2020-0 No 100 mg = 5 Me moria 8-13 mL, l 12:41: Injection, [place] 00 IV, Once, first dose 02/26/20 7:41:00 CDT, stop date 02/26/20 7:41:00 CDT propofol 2020-0 No 200 mg = Memor ia 8-13 20 mL, l 12:41: Emulsion, [place] 00 IV, Once, first dose 02/26/20 7:41:00 CDT, stop date 02/26/20 7:41:00 CDT fentaNYL 2020-0 No 50 mcg = 1 Mem oria 8-13 mL, l 12:35: Injection, [place] 00 IV, Once, first dose 02/26/20 7:35:00 CDT, stop date 02/26/20 7:35:00 CDT fentaNYL 2020-0 No 50 mcg = 1 Mem oria 8-13 mL, l 12:35: Injection, [place] 00 IV, Once, first dose 02/26/20 7:35:00 CDT, stop date 02/26/20 7:35:00 CDT fentaNYL 2020-0 No 50 mcg = 1 Mem oria 8-13 mL, l 12:35: Injection, [place] 00 IV, Once, first dose 02/26/20 7:35:00 CDT, stop date 02/26/20 7:35:00 CDT fentaNYL 2020-0 No 50 mcg = 1 Mem oria 8-13 mL, l 12:35: Injection, [place] 00 IV, Once, first dose 02/26/20 7:35:00 CDT, stop date 02/26/20 7:35:00 CDT midazolam 2020-0 No 1 mg = 1 Lev trupti 8-13 mL, l 12:34: Injection, [place] 00 IV, Once, first dose 02/26/20 7:34:00 CDT, stop date 02/26/20 7:34:00 CDT midazolam 2020-0 No 1 mg = 1 Lev trupti 8-13 mL, l 12:34: Injection, [place] 00 IV, Once, first dose 02/26/20 7:34:00 CDT, stop date 02/26/20 7:34:00 CDT midazolam 2020-0 No 1 mg = 1 Lev trupti 8-13 mL, l 12:34: Injection, [place] 00 IV, Once, first dose 02/26/20 7:34:00 CDT, stop date 02/26/20 7:34:00 CDT midazolam 2020-0 No 1 mg = 1 Lev trupti 8-13 mL, l 12:34: Injection, [place] 00 IV, Once, first dose 02/26/20 7:34:00 CDT, stop date 02/26/20 7:34:00 CDT midazolam 2020-0 No 1 mg = 1 Lev trupti 8-13 mL, l 12:26: Injection, [place] 00 IV, Once, first dose 02/26/20 7:26:00 CDT, stop date 02/26/20 7:26:00 CDT midazolam 2020-0 No 1 mg = 1 Lev trupti 8-13 mL, l 12:26: Injection, [place] 00 IV, Once, first dose 02/26/20 7:26:00 CDT, stop date 02/26/20 7:26:00 CDT midazolam 2020-0 No 1 mg = 1 Lve trupti 8-13 mL, l 12:26: Injection, [place] 00 IV, Once, first dose 02/26/20 7:26:00 CDT, stop date 02/26/20 7:26:00 CDT midazolam 2020-0 No 1 mg = 1 Lev trupti 8-13 mL, l 12:26: Injection, [place] 00 IV, Once, first dose 02/26/20 7:26:00 [...] Mem oria 8-13 mL, l 12:25: Injection, [place] 00 IV, Once, first dose 02/26/20 7:25:00 [...] gm, Memoria 8-13 Soln-IV, l 12:00: IV [place] 00 Piggyback, Once, infuse over 30 minutes, first dose 02/26/20 7:00:00 CDT, stop date 02/26/20 7:00:00 CDT, patient weight 50-120 kg, Prophylaxi s Cefazolin 2020-0 No 2 gm, Memoria 8-13 Soln-IV, l 12:00: IV [place] 00 Piggyback, Once, infuse over 30 minutes, [...] emoria 8-13 IV, 30 l 11:28: mL/hr, [place] 00 start date 02/26/20 6:28:00 CDT, 2.14, m2 Lidocaine 2020-0 No 0.2 mL, Memor ia 2% 0.2 mL 8-13 Injection, l IV Start [facility], Once PRN for other (see comment), first dose 02/26/20 6:28:00 CDT LR 1,000 mL 2020-0 No 1,000 mL, M emoria 8-13 IV, 30 l 11:28: mL/hr, [place] 00 start date 02/26/20 6:28:00 CDT, 2.14, m2 Lidocaine 2020-0 No 0.2 mL, Memor ia 2% 0.2 mL 8-13 Injection, l IV Start 11:28[facility] , Once PRN for other (see comment), first dose 02/26/20 6:28:00 CDT LR 1,000 mL 2020-0 No 1,000 mL, M emoria 8-13 IV, 30 l 11:28: mL/hr, start date 02/26/20 6:28:00 CDT, 2.14, m2 Lidocaine 2020-0 No 0.2 mL, Memor ia 2% 0.2 mL 02-25 Injection, l IV Start 11:28: [facility] , Once PRN for other (see comment), first dose 02/26/20 6:28:00 CDT LR 1,000 mL 2020-0 No 1,000 mL, M emoria 8-13 IV, 30 l 11:28: mL/hr, start date 02/26/20 6:28:00 CDT, 2.14, m2 Lidocaine 2020-0 No 0.2 mL, Memor ia 2% 0.2 mL 02-25 Injection, l IV Start 11:28: [facility] , Once PRN for other (see [...] oral 8-05 tabs, l tablet 17:04: Oral, [place] 00 Daily, 0 Refill(s) pantoprazol 2020-0 Yes 40 mg = 1 M emoria e 40 mg 8-05 tabs, l oral 17:04: Oral, [place] delayed 00 Daily, 0 release Refill(s), tablet GERD meloxicam 2020-0 Yes 7.5 mg = 1 Me moria 7.5 MG Oral 8-05 tabs, l Tablet 17:04: Oral, [place] 00 Daily, 0 Refill(s), joint pain amitriptyli [...] oral 8-05 tabs, l tablet 17:04: Oral, [place] 00 Daily, 0 Refill(s) pantoprazol 2020-0 Yes 40 mg = 1 M emoria e 40 mg 8-05 tabs, l oral 17:04: Oral, [place] delayed 00 Daily, 0 release Refill(s), tablet GERD meloxicam 2020-0 Yes 7.5 mg = 1 Me moria 7.5 MG Oral 8-05 tabs, l Tablet 17:04: Oral, [place] 00 Daily, 0 Refill(s), joint pain amitriptyli 2020-0 Yes 75 mg = 1 M emoria ne 75 mg 8-05 tabs, l oral tablet 17:04: Oral, qHS, [place] 00 0 Refill(s), sleep levothyroxi 2020-0 Yes 25 mcg = 1 Memoria ne 25 mcg 8-05 tabs, l (0.025 mg) 17:04: Oral, Burak n oral tablet 00 Daily, 0 Refill(s), hypothyroi d rizatriptan 2020-0 Yes 5 mg = 1 Me moria 5 mg oral 8-05 tabs, l tablet 17:04: Oral, [place] 00 Daily, 0 Refill(s) pantoprazol 2020-0 Yes 40 mg = 1 M emoria e 40 mg 8-05 tabs, l oral 17:04: Oral, [place] delayed 00 Daily, 0 release Refill(s), tablet GERD meloxicam 2020-0 Yes 7.5 mg = 1 Me moria 7.5 MG Oral 8-05 tabs, l Tablet 17:04: Oral, [place] 00 Daily, 0 Refill(s), joint pain amitriptyli [...] mg 8-05 tabs, l oral 17:04: Oral, [place] delayed 00 Daily, 0 release Refill(s), tablet [...] 1 TABLET BY MOUTH ONCE DAILY pantoprazol 2019-0 Yes pantoprazo [facility] (PROTONIX) 00:00: tablet,[facility] 40 MG EC 00 ayed l tablet release TAKE 1 TABLET BY MOUTH ONCE DAILY pantoprazol 2020-0 Yes pantoprazo [facility] 8-[address] (PROTONIX) 00:00: tablet,del [facility] 40 MG EC 00 ayed l tablet release TAKE 1 TABLET BY MOUTH ONCE DAILY pantoprazol 2019-0 Yes pantoprazo [facility] 8-[address] (PROTONIX) 00:00: tablet,del [facility] 40 MG EC 00 ayed l tablet release TAKE 1 TABLET BY MOUTH ONCE DAILY pantoprazol 2019-0 Yes pantoprazo Methodi e 8-05 [...] [place] 00 30 ea, 5 Refill(s), Pharmacy: [facility], 152.4, cm, 01/15/20 15:04:00 CDT, Height, 115.455, kg, 01/15/20 15:04:00 CDT, Weight rizatriptan 2019-0 Yes 5 mg = 1 Me moria 5 MG Oral 7-02 tab, PO, l Tablet 20:24: ONCE, PRN Burak n [Maxalt] 00 for migraine headache, # 9 tab, 1 Refill(s), Pharmacy: [facility], 152.4, cm, 01/15/20 15:04:00 CDT, Height, 115.455, kg, 01/15/20 15:04:00 CDT, Weight amitriptyli 2020-0 Yes = 1 tab, Me moria ne 75 mg 7-02 PO, l oral tablet 20:24: Bedtime, # [place] 00 30 ea, 5 Refill(s), Pharmacy: [facility], 152.4, cm, 01/15/20 15:04:00 CDT, Height, 115.455, kg, 01/15/20 15:04:00 CDT, Weight rizatriptan 2020-0 Yes 5 mg = 1 Me moria 5 MG Oral 7-02 tab, PO, l Tablet 20:24: ONCE, PRN Burak n [Maxalt] 00 for migraine headache, # 9 tab, 1 Refill(s), Pharmacy: [facility], 152.4, cm, 01/15/20 15:04:00 CDT, Height, 115.455, kg, 01/15/20 15:04:00 CDT, Weight amitriptyli 2020-0 Yes = 1 tab, Me moria ne 75 mg 7-02 PO, l oral tablet 20:24: Bedtime, # [place] 00 30 ea, 5 Refill(s), Pharmacy: [facility], 152.4, cm, 01/15/20 15:04:00 CDT, Height, 115.455, kg, 01/15/20 15:04:00 CDT, Weight rizatriptan 2020-0 Yes 5 mg = 1 Me moria 5 MG Oral 7-02 tab, PO, l Tablet 20:24: ONCE, PRN Burak n [Maxalt] 00 for migraine headache, # 9 tab, 1 Refill(s), Pharmacy: [facility], 152.4, cm, 01/15/20 15:04:00 CDT, Height, 115.455, kg, 01/15/20 15:04:00 CDT, Weight amitriptyli 2020-0 Yes = 1 tab, Me moria ne 75 mg 7-02 PO, l oral tablet 20:24: Bedtime, # [place] 00 30 ea, 5 Refill(s), Pharmacy: [facility], 152.4, cm, 01/15/20 15:04:00 CDT, Height, 115.455, kg, 01/15/20 15:04:00 CDT, Weight rizatriptan 2020-0 Yes 5 mg = 1 Me moria 5 MG Oral 7-02 tab, PO, l Tablet 20:24: ONCE, PRN Burak n [Maxalt] 00 for migraine headache, # 9 tab, 1 Refill(s), Pharmacy: [facility], 152.4, cm, 01/15/20 15:04:00 CDT, Height, 115.455, kg, 01/15/20 15:04:00 CDT, Weight amitriptyli 2020-0 Yes = 1 tab, Me moria ne 75 mg 5-19 PO, l oral tablet 21:06: Bedtime, # [place] 00 30 ea, 1 Refill(s), Pharmacy: [facility] rizatriptan 2020-0 Yes 5 mg = 1 Me moria 5 MG Oral 5-19 tab, PO, l Tablet 21:06: ONCE, PRN Burak n [Maxalt] 00 for migraine headache, # 9 tab, 1 Refill(s), Pharmacy: [facility] rizatriptan 2020-0 Yes 5 mg = 1 Me moria 5 MG Oral 5-19 tab, PO, l Tablet 21:06: ONCE, PRN Burak n [Maxalt] 00 for migraine headache, # 9 tab, 1 Refill(s), Pharmacy: [facility] amitriptyli 2020-0 Yes = 1 tab, Me moria ne 75 mg 5-19 PO, l oral tablet 21:06: Bedtime, # [place] 00 30 ea, 1 Refill(s), Pharmacy: [facility] rizatriptan 2020-0 Yes 5 mg = 1 Me moria 5 MG Oral 5-19 tab, PO, l Tablet 21:06: ONCE, PRN Burak n [Maxalt] 00 for migraine headache, # 9 tab, 1 Refill(s), Pharmacy: [facility] amitriptyli 2020-0 Yes = 1 tab, Me moria ne 75 mg 5-19 PO, l oral tablet 21:06: Bedtime, # [place] 00 30 ea, 1 Refill(s), Pharmacy: [facility] rizatriptan 2020-0 Yes 5 mg = 1 Me moria 5 MG Oral 5-19 tab, PO, l Tablet 21:06: ONCE, PRN Burak n [Maxalt] 00 for migraine headache, # 9 tab, 1 Refill(s), Pharmacy: [facility] amitriptyli 2019-0 Yes = 1 tab, Me moria ne 75 mg 5-19 PO, l oral tablet 21:06: Bedtime, # [place] 00 30 ea, 1 Refill(s), Pharmacy: [facility] loratadine Yes loratadine M ethodi [...] l TABLET BY MOUTH ONCE DAILY loratadine 2018-0 Yes loratadine M ethodi (CLARITIN) 9-[address] 10 mg 00:00: tablet [facility] tablet 00 TAKE 1 l TABLET BY MOUTH ONCE DAILY loratadine Yes loratadine M ethodi (CLARITIN) 9-[address] 10 mg 00:00: tablet [facility] tablet 00 TAKE 1 l TABLET BY MOUTH ONCE DAILY sod 0 Yes [id number] 1{bottl Use 1 Unive rs chlor-bicar 9-08 e} Bottle in ity of b-squeez 00:00: each [place] bottle 00 nostril 2 Medical (NEILMED (two) Branch SINUS RINSE times COMPLETE) daily. Use pkdv in hot shower 1 hour before bedtime loratadine Yes [id number] 10mg Take 1 U nivers 10 mg 9-08 tablet by ity of tablet 00:00: mouth [place] 00 daily. Medical Branch sod Yes [id number] 1{bottl Use 1 Unive rs chlor-bicar 9-08 e} Bottle in ity of b-squeez 00:00: each [place] bottle 00 nostril 2 Medical (NEILMED (two) Branch SINUS RINSE times COMPLETE) daily. Use pkdv in hot shower 1 hour before bedtime loratadine Yes [id number] 10mg Take 1 U nivers 10 mg 9-08 tablet by ity of tablet 00:00: mouth 00 daily. Medical Branch sod Yes [id number] 1{bottl Use 1 Unive rs chlor-bicar 9-08 e} Bottle in ity of b-squeez 00:00: each [place] bottle 00 nostril 2 Medical (NEILMED (two) Branch SINUS RINSE times COMPLETE) daily. Use pkdv in hot shower 1 hour before bedtime loratadine Yes [id number] 10mg Take 1 U nivers 10 mg 9-08 tablet by ity of tablet 00:00: mouth 00 daily. Medical Branch sod Yes [id number] 1{bottl Use 1 Unive rs chlor-bicar 9-08 e} Bottle in ity of b-squeez 00:00: each [place] bottle 00 nostril 2 Medical (NEILMED (two) Branch SINUS RINSE times COMPLETE) daily. Use pkdv in hot shower 1 hour before bedtime loratadine Yes [id number] 10mg Take 1 U nivers 10 mg 9-08 tablet by ity of tablet 00:00: mouth [place] 00 daily. Medical Branch amitriptyli Yes 75 mg = 1 M emoria ne 75 mg 8-22 tab, PO, l oral tablet 18:27: Bedtime, # [place] 00 30 tab, 1 Refill(s), Pharmacy: [facility] amitriptyli 2019-0 Yes 75 mg = 1 M emoria ne 75 mg 8-22 tab, PO, l oral tablet 18:27: Bedtime, # [place] 00 30 tab, 1 Refill(s), Pharmacy: [facility] amitriptyli 2019-0 Yes 75 mg = 1 M emoria ne 75 mg 8-22 tab, PO, l oral tablet 18:27: Bedtime, # [place] 00 30 tab, 1 Refill(s), Pharmacy: [facility] amitriptyli 2019-0 Yes 75 mg = 1 M emoria ne 75 mg 8-22 tab, PO, l oral tablet 18:27: Bedtime, # [place] 00 30 tab, 1 Refill(s), Pharmacy: [facility] rizatriptan 2019-0 Yes 5 mg = 1 Me moria 5 MG Oral 8-02 tab, PO, l Tablet 20:24: ONCE, PRN Burak n [Maxalt] 09 for migraine headache, # 9 tab, 1 Refill(s), Pharmacy: [facility] rizatriptan 2019-0 Yes 5 mg = 1 Me moria 5 MG Oral 8-02 tab, PO, l Tablet 20:24: ONCE, PRN Burak n [Maxalt] 09 for migraine headache, # 9 tab, 1 Refill(s), Pharmacy: [facility] rizatriptan 2019-0 Yes 5 mg = 1 Me moria 5 MG Oral 8-02 tab, PO, l Tablet 20:24: ONCE, PRN Burak n [Maxalt] 09 for migraine headache, # 9 tab, 1 Refill(s), Pharmacy: [facility] rizatriptan 2019-0 Yes 5 mg = 1 Me moria 5 MG Oral 8-02 tab, PO, l Tablet 20:24: ONCE, PRN Burak n [Maxalt] 09 for migraine headache, # 9 tab, 1 Refill(s), Pharmacy: [facility] thiamine 2019-0 Yes 100 mg = 1 Mem oria 100 mg oral 8-02 tab, PO, l tablet 20:23: Daily, X [place] 17 30 day, # 30 tab, 3 Refill(s), Pharmacy: [facility] thiamine Yes 100 mg = 1 Mem oria 100 mg oral 8-02 tab, PO, l tablet 20:23: Daily, X [place] 17 30 day, # 30 tab, 3 Refill(s), Pharmacy: [facility] thiamine Yes 100 mg = 1 Mem oria 100 mg oral 8-02 tab, PO, l tablet 20:23: Daily, X [place] 17 30 day, # 30 tab, 3 Refill(s), Pharmacy: [facility] thiamine Yes 100 mg = 1 Mem oria 100 mg oral 8-02 tab, PO, l tablet 20:23: Daily, X [place] 17 30 day, # 30 tab, 3 Refill(s), Pharmacy: [place] [address] cyanocobala Yes 1,000 Memor ia min 1000 8-02 microgram l mcg 20:23: = 1 tab, [place] sublingual 13 SL, Daily, tablet # 30 tab, 2 Refill(s), Pharmacy: [place] [address] cyanocobala Yes 1,000 Memor ia min 1000 8-02 microgram l mcg 20:23: = 1 tab, [place] sublingual 13 SL, Daily, tablet # 30 tab, 2 Refill(s), Pharmacy: [place] [address] cyanocobala Yes 1,000 Memor ia min 1000 8-02 microgram l mcg 20:23: = 1 tab, [place] sublingual 13 SL, Daily, tablet # 30 tab, 2 Refill(s), Pharmacy: [facility] cyanocobala Yes 1,000 Memor ia min 1000 8-02 microgram l mcg 20:23: = 1 tab, [place] sublingual 13 SL, Daily, tablet # 30 tab, 2 Refill(s), Pharmacy: [facility] amitriptyli Yes 50 mg = 1 M emoria ne 50 mg 8-02 tab, PO, l oral tablet 20:23: Bedtime, # [place] 09 30 tab, 1 Refill(s), Pharmacy: [facility] amitriptyli 2019-0 Yes 50 mg = 1 M emoria ne 50 mg 8-02 tab, PO, l oral tablet 20:23: Bedtime, # [place] 09 30 tab, 1 Refill(s), Pharmacy: [facility] amitriptyli Yes 50 mg = 1 M emoria ne 50 mg 8-02 tab, PO, l oral tablet 20:23: Bedtime, # [place] 09 30 tab, 1 Refill(s), Pharmacy: [facility] amitriptyli Yes 50 mg = 1 M emoria ne 50 mg 8-02 tab, PO, l oral tablet 20:23: Bedtime, # [place] 09 30 tab, 1 Refill(s), Pharmacy: [facility] rizatriptan Yes rizatripta Method[facility] (MAXALT) 5 8-02 [...] ONCE DAILY NEEDED FOR HEADACHE MIGRAINE rizatriptan 2019 Yes rizatripta [facility] (MAXALT) 5 8-[address] [facility] tablet 00:00: tablet [facility] 00 TAKE 1 l TABLET BY MOUTH ONCE DAILY NEEDED FOR HEADACHE MIGRAINE rizatriptan 2019 Yes rizatripta [facility] (MAXALT) 5 8-[address] MG tablet 00:00: tablet [facility] 00 TAKE 1 l TABLET BY MOUTH ONCE DAILY NEEDED FOR HEADACHE MIGRAINE rizatriptan Yes rizatripta [facility] (MAXALT) 5 8-[address] MG tablet 00:00: tablet [facility] 00 TAKE 1 l TABLET BY MOUTH ONCE DAILY NEEDED FOR HEADACHE MIGRAINE rizatriptan 2019-0 No 5 mg = 1 Me moria 5 MG Oral 7-13 tab, PO, l Tablet 01:53: Daily, PRN Antonia nn [Maxalt] 00 for migraine headache, X 6 day, # 6 tab, 1 Refill(s), Pharmacy: [facility] amitriptyli 2019-0 No 50 mg = 1 M emoria ne 50 mg 7-13 tab, PO, l oral tablet 01:53: Bedtime, # [place] 00 30 tab, 1 Refill(s), Pharmacy: [facility] rizatriptan 2019-0 No 5 mg = 1 Me moria 5 MG Oral 7-13 tab, PO, l Tablet 01:53: Daily, PRN Antonia nn [Maxalt] 00 for migraine headache, X 6 day, # 6 tab, 1 Refill(s), Pharmacy: [facility] amitriptyli 2018-0 No 50 mg = 1 M emoria ne 50 mg 7-13 tab, PO, l oral tablet 01:53: Bedtime, # [place] 00 30 tab, 1 Refill(s), Pharmacy: [facility] rizatriptan 2019-0 No 5 mg = 1 Me moria 5 MG Oral 7-13 tab, PO, l Tablet 01:53: Daily, PRN Antonia nn [Maxalt] 00 for migraine headache, X 6 day, # 6 tab, 1 Refill(s), Pharmacy: [facility] amitriptyli 2019-0 No 50 mg = 1 M emoria ne 50 mg 7-13 tab, PO, l oral tablet 01:53: Bedtime, # [place] 00 30 tab, 1 Refill(s), Pharmacy: [facility] rizatriptan 2019-0 No 5 mg = 1 Me moria 5 MG Oral 7-13 tab, PO, l Tablet 01:53: Daily, PRN Antonia nn [Maxalt] 00 for migraine headache, X 6 day, # 6 tab, 1 Refill(s), Pharmacy: [facility] amitriptyli No 50 mg = 1 Raeann diaz ne 50 mg 7-13 tab, PO, l oral tablet 01:53: Bedtime, # [place] 00 30 tab, 1 Refill(s), Pharmacy: [facility] frovatripta No 2.5 mg = 1 Memoria n 2.5 mg 6-27 tab, PO, l oral tablet 15:37: Daily, PRN [place] 00 for migraine headache, May repeat another dose at least 2 hours after the first dose, X 3 day, # 9 tab, 2 Refill(s), Pharmacy: [place] [address] frovatripta No 2.5 mg = 1 Memoria n 2.5 mg 6-27 tab, PO, l oral tablet 15:37: Daily, PRN [place] 00 for migraine headache, May repeat another dose at least 2 hours after the first dose, X 3 day, # 9 tab, 2 Refill(s), Pharmacy: [place] [address] frovatripta No 2.5 mg = 1 Memoria n 2.5 mg 6-27 tab, PO, l oral tablet 15:37: Daily, PRN [place] 00 for migraine headache, May repeat another dose at least 2 hours after the first dose, X 3 day, # 9 tab, 2 Refill(s), Pharmacy: [place] [address] frovatripta No 2.5 mg = 1 Memoria n 2.5 mg 6-27 tab, PO, l oral tablet 15:37: Daily, PRN [place] 00 for migraine headache, May repeat another dose at least 2 hours after the first dose, X 3 day, # 9 tab, 2 Refill(s), Pharmacy: [facility] eletriptan No See Memoria 40 MG Oral 6-25 Instructio l Tablet 23:35: ns, PO, [place] [Relpax] 00 Take 1-2 tabs orally at onset of migraine, may repeat dose once in 2 hours, X 3 day, # 6 tab, 1 Refill(s), Pharmacy: [facility] eletriptan No See Memoria 40 MG Oral 6-25 Instructio l Tablet 23:35: ns, PO, [place] [Relpax] 00 Take 1-2 tabs orally at onset of migraine, may repeat dose once in 2 hours, X 3 day, # 6 tab, 1 Refill(s), Pharmacy: [facility] eletriptan No See Memoria 40 MG Oral 6-25 Instructio l Tablet 23:35: ns, PO, [place] [Relpax] 00 Take 1-2 tabs orally at onset of migraine, may repeat dose once in 2 hours, X 3 day, # 6 tab, 1 Refill(s), Pharmacy: [facility] eletriptan No See Memoria 40 MG Oral 6-25 Instructio l Tablet 23:35: ns, PO, [place] [Relpax] 00 Take 1-2 tabs orally at onset of migraine, may repeat dose once in 2 hours, X 3 day, # 6 tab, 1 Refill(s), Pharmacy: [facility] amitriptyli Yes 25 mg = 1 M emoria ne 25 mg 6-11 tab, PO, l oral tablet 21:16: Bedtime, # [place] 00 30 tab, 3 Refill(s), [facility]acy: [facility] amitriptyli Yes 25 mg = 1 M emoria ne 25 mg 6-11 tab, PO, l oral tablet 21:16: Bedtime, # [place] 00 30 tab, 3 Refill(s), Pharmacy: [facility] amitriptyli Yes 25 mg = 1 M emoria ne 25 mg 6-11 tab, PO, l oral tablet 21:16: Bedtime, # [place] 00 30 tab, 3 Refill(s), Pharmacy: [facility] amitriptyli Yes 25 mg = 1 M emoria ne 25 mg 6-11 tab, PO, l oral tablet 21:16: Bedtime, # [place] 00 30 tab, 3 Refill(s), Pharmacy: [facility] cyanocobala Yes 1,000 Memor ia min 1000 6-07 microgram l mcg 19:39: = 1 tab, [place] sublingual 00 SL, Daily, tablet # 30 tab, 2 Refill(s), Pharmacy: [place] [address] cyanocobala Yes 1,000 Memor ia min 1000 6-07 microgram l mcg 19:39: = 1 tab, [place] sublingual 00 SL, Daily, tablet # 30 tab, 2 Refill(s), Pharmacy: [place] [address] cyanocobala Yes 1,000 Memor ia min 1000 6-07 microgram l mcg 19:39: = 1 tab, [place] sublingual 00 SL, Daily, tablet # 30 tab, 2 Refill(s), Pharmacy: [place] [address] cyanocobala Yes 1,000 Memor ia min 1000 6-07 microgram l mcg 19:39: = 1 tab, [place] sublingual 00 SL, Daily, tablet # 30 tab, 2 Refill(s), Pharmacy: [place] [address] thiamine Yes 100 mg = 1 Mem oria 100 mg oral 5-17 tab, PO, l tablet 18:13: Daily, X [place] 00 30 day, # 30 tab, 3 Refill(s), Pharmacy: [place] [address] thiamine Yes 100 mg = 1 Mem oria 100 mg oral 5-17 tab, PO, l tablet 18:13: Daily, X [place] 00 30 day, # 30 tab, 3 Refill(s), Pharmacy: [place] [address] thiamine Yes 100 mg = 1 Mem oria 100 mg oral 5-17 tab, PO, l tablet 18:13: Daily, X [place] 00 30 day, # 30 tab, 3 Refill(s), Pharmacy: [place] [address] thiamine Yes 100 mg = 1 Mem oria 100 mg oral 5-17 tab, PO, l tablet 18:13: Daily, X [place] 00 30 day, # 30 tab, 3 Refill(s), Pharmacy: [place] [address] amitriptyli 2018-0 Yes 10 mg = 1 M emoria ne 10 mg 5-10 tab, PO, l oral tablet 20:44: Bedtime, # [place] 00 30 tab, 3 Refill(s), Pharmacy: [place] [address] amitriptyli 0 Yes 10 mg = 1 M emoria ne 10 mg 5-10 tab, PO, l oral tablet 20:44: Bedtime, # [place] 00 30 tab, 3 Refill(s), [facility] amitriptyli 2019-0 Yes 10 mg = 1 M emoria ne 10 mg 5-10 tab, PO, l oral tablet 20:44: Bedtime, # [place] 00 30 tab, 3 Refill(s), [facility] amitriptyli 2019-0 Yes 10 mg = 1 M emoria ne 10 mg 5-10 tab, PO, l oral tablet 20:44: Bedtime, # [place] 00 30 tab, 3 Refill(s), [facility]: [facility] gabapentin 2019-0 Yes 300 mg [...] Daily, # 30 tab, 0 Refill(s) gabapentin 2018-0 Yes 300 mg = 1 M emoria 300 MG Oral 5-10 cap, PO, l Capsule 20:28: BID, # 90 Antonia nn 00 cap, 1 Refill(s) cyclobenzap 2018- No 10 mg = 1 M emoria rine 10 mg 5-10 tab, PO, l oral tablet 20:28: TID, PRN He rmann 00 for spasms, # 30 tab, 0 Refill(s) levothyroxi Yes 50 Memori a ne 50 mcg 5-10 microgram l (0.05 mg) 20:28: = 1 tab, Herm mckenna oral tablet 00 PO, Daily, # 30 tab, 0 Refill(s) escitalopra 2018- Yes 20 mg = 1 M emoria [...] spasms, # 30 tab, 0 Refill(s) levothyroxi Yes 50 Memori a ne 50 mcg 5-10 microgram l (0.05 mg) 20:28: = 1 tab, Herm mckenna oral tablet 00 PO, Daily, # 30 tab, 0 Refill(s) escitalopra 2019-0 Yes 20 mg = 1 M emoria m 20 mg 5-10 tab, PO, l oral tablet 20:28: Daily, # He rmann 00 30 tab, 0 Refill(s) gabapentin 2019-0 Yes 300 mg = 1 M emoria 300 mg oral 5-10 cap, PO, l capsule 20:28: BID, # 90 Antonia nn 00 cap, 1 Refill(s) levothyroxi 2019-0 Yes 50 Method i ne 5-[address] (SYNTHROID) 00:00: = 1 tab, Ho spita 50 mcg 00 PO, Daily, l tablet # 30 tab, 0 Refill(s) levothyroxi 2019- Yes 50 Method i ne 5-10 microgram [...] tablet # 30 tab, 0 Refill(s) levothyroxi 0 Yes 50 Method i ne 5-10 microgram [...] day Ho spita 00 l bisoprolol Yes [id number] 10mg Take 1 U nivers 10 mg 1-11 tablet by ity of tablet 00:00: mouth [place] 00 daily. [facility] cyclobenzap 0 Yes [id number] 10mg Take 1 Univers rine 10 mg 1-11 tablet by ity of tablet 00:00: mouth at [place] bedtime. [facility] bisoprolol 0 Yes [id number] 10mg Take 1 U nivers 10 mg 1-11 tablet by ity of tablet 00:00: mouth [place] 00 daily. [facility] cyclobenzap 0 Yes [id number] 10mg Take 1 Univers rine 10 mg 1-11 tablet by ity of tablet 00:00: mouth at [place] bedtime. [facility] bisoprolol Yes [id number] 10mg Take 1 U nivers 10 mg 1-11 tablet by ity of tablet 00:00: mouth [place] 00 daily. [facility] Branch cyclobenzap Yes [id number] 10mg Take 1 Univers rine 10 mg 1-11 tablet by ity of tablet 00:00: mouth at [place] bedtime. Medical [facility] bisoprolol Yes [id number] 10mg Take 1 U nivers 10 mg 1-11 tablet by ity of tablet 00:00: mouth [place] 00 daily. [facility] Branch cyclobenzap Yes [id number] 10mg Take 1 Univers rine 10 mg 1-11 tablet by ity of tablet 00:00: mouth at [place] [address] bedtime. Medical Branch albuterol 2015-07 Yes 3 [...] [place] tablet 00 evening. Medical [facility] montelukast 2016-1 Yes 10mg Take 10 mg Univers (SINGULAIR) [...] s 50 9-02 ity of mcg/actuati 00:00: [place] on nasal 00 Medical spray Branch fluticasone 0 Yes Univer s 50 9 ity of mcg/actuati 00:00: [place] on nasal 00 Medical spray Branch fluticasone Yes Univer s 50 9- ity of mcg/actuati 00:00: [place] on nasal 00 Medical spray Branch Rizatriptan Rizatriptan No 1{table QD Rizatripta Benzoate [...] Base) Base) (90 Base) MCG/ACT MCG/ACT MCG/ACT Levothyroxi Levothyroxi Yes M.D. U T ne Sodium ne Sodium Physi ci TABS TABS ans Meloxicam Meloxicam Yes M.D. UT TABS TABS Physici ans Amitriptyli Amitriptyli Yes M.D. U T ne HCl TABS ne HCl TABS P hysici ans hydrALAZINE hydrALAZINE No hydrALAZIN HCl HCl E [...] 10 food} Acetate 10 MG MG MG Immunizations Ordered Filled Immunization Date Status Comments [...] Adacel) 00:00:00 TDAP 2016-07-24 Completed University of 00:00:00 [facility] Influenza Virus 2016-07-24 Completed Universit y of Vaccine Quad IM 3+ 00:00:00 [facility] TDAP 2016-07-24 Completed University of 00:00:00 [facility] Influenza Virus 2016-07-24 Completed Universit y of Vaccine Quad IM 3+ 00:00:00 [facility] TDAP 2016-07-24 Completed University of 00:00:00 [facility] Influenza Virus 2016-07-24 Completed Universit y of Vaccine Quad IM 3+ 00:00:00 [facility] TDAP 2016-07-24 Completed University of 00:00:00 [facility] Influenza Virus 2016-07-24 Completed Universit y of Vaccine Quad IM 3+ 00:00:00 [facility] Tdap- (Boostrix, 2010-01-18 Completed Rosi esposito Adacel) 00:00:00 Vital Signs Vital Name Observation Time Observation Value Comments Source Systolic blood 2021-10-10 20:19:00 141 mm[Hg] Univer sity of pressure [facility] Diastolic blood 2021-10-10 20:19:00 98 mm[Hg] Unive rsity of [facility] Heart rate 2021-10-10 20:19:00 109 /min Universi [facility] Body temperature 2021-10-10 20:19:00 36.94 [facility] 2021-10-10 20:19:00 18 /min [facility] Body height 2021-10-10 20:19:00 160 cm [facility] Body weight 2021-10-10 20:19:00 115.667 kg [facility] BMI 2021-10-10 20:19:00 45.17 kg/m2 [facility] Oxygen saturation in 2021-10-10 20:19:00 97 /min [facility] Arterial blood by [facility] Pulse oximetry Branch Systolic blood 2021-04-28 14:43:00 100 mm[Hg] Rosi ybold pressure Diastolic blood 2021-04-28 14:43:00 60 mm[Hg] Kelse y Seybold pressure Heart rate 2021-04-28 14:43:00 112 /min Rosi ballardboshabnam Body temperature 2021-04-28 14:43:00 37 Sole Agueda ey Seybold Respiratory rate 2021-04-28 14:43:00 16 /min Agueda ey Seybold Body height 2021-04-28 14:43:00 157.5 cm Rosi ballardbold Body weight 2021-04-28 14:43:00 113.853 kg Rosi ballardbold BMI 2021-04-28 14:43:00 45.91 kg/m2 Rosi ballardbold height 2021-03-30 10:10:00 60.75 [in_i] Common [facility] weight 2021-03-30 10:10:00 245 [lb_av] Common [facility] temperature 2021-03-30 10:10:00 97.2 [degF] Common [facility] bmi 2021-03-30 10:10:00 46.67 kg/m2 [facility] oximetry 2021-03-30 10:10:00 100 % Common [facility] respiratory rate 2021-03-30 10:10:00 17 /min Comm on [facility] blood pressure 2021-03-30 10:10:00 121 mm[Hg] Common [facility] - systolic [facility] blood pressure 2021-03-30 10:10:00 73 mm[Hg] Common [facility] diastolic [facility] height 2021-02-15 16:20:00 60.75 [in_i] Common [facility] weight 2021-02-15 16:20:00 251.6 [lb_av] [facility] temperature 2021-02-15 16:20:00 97.3 [degF] Common [facility] bmi 2021-02-15 16:20:00 47.93 kg/m2 [facility] oximetry 2021-02-15 16:20:00 97 % [facility] respiratory rate 2021-02-15 16:20:00 18 /min Comm on [facility] blood pressure 2021-02-15 16:20:00 120 mm[Hg] Common [facility] - systolic [facility] blood pressure 2021-02-15 16:20:00 76 mm[Hg] Common [facility] diastolic [facility] Systolic blood 2021-02-11 13:34:00 127 mm[Hg] Univer sity of [facility] Diastolic blood 2021-02-11 13:34:00 87 mm[Hg] Unive rsity of pressure [facility] Heart rate 2021-02-11 13:34:00 100 /min [facility] Body height 2021-02-11 13:34:00 160 cm [facility] Body weight 2021-02-11 13:34:00 115.667 kg [facility] BMI 2021-02-11 13:34:00 45.17 kg/m2 [facility] height 2021-01-20 11:00:00 60.75 [in_i] [facility] weight 2021-01-20 11:00:00 255 [lb_av] [facility] temperature 2021-01-20 11:00:00 97.3 [degF] Common [facility] bmi 2021-01-20 11:00:00 48.57 kg/m2 [facility] oximetry 2021-01-20 11:00:00 98 % [facility] respiratory rate 2021-01-20 11:00:00 18 /min Comm on [facility] blood pressure 2021-01-20 11:00:00 122 mm[Hg] Common [facility] - systolic [facility] blood pressure 2021-01-20 11:00:00 68 mm[Hg] Common [facility] - diastolic [facility] height 2020-12-15 14:00:00 60.75 [in_i] [facility] weight 2020-12-15 14:00:00 258 [lb_av] Common [facility] temperature 2020-12-15 14:00:00 97.9 [degF] Common [facility] bmi 2020-12-15 14:00:00 49.15 kg/m2 [facility] oximetry 2020-12-15 14:00:00 98 % [facility] respiratory rate 2020-12-15 14:00:00 20 /min Comm on [facility] blood pressure 2020-12-15 14:00:00 118 mm[Hg] Common [facility] - systolic [facility] blood pressure 2020-12-15 14:00:00 67 mm[Hg] [facility] - [facility] Systolic (mm Hg) 2021-03-16 13:19:00 Lev rial [place] Diastolic (mm Hg) 2021-03-16 13:19:00 Mem orial [place] Heart Rate 2021-03-16 13:19:00 [facility] [place] Respitory Rate 2021-03-16 13:19:00 Memori al [place] Height 2021-03-16 13:19:00 152.4 cm [facility] [place] Weight 2021-03-16 13:19:00 [facility] [place] BMI Calculated 2021-03-16 13:19:00 Memori al [place] Systolic (mm Hg) 2021-02-01 18:35:00 Lev rial [place] Diastolic (mm Hg) 2021-02-01 18:35:00 Mem orial [place] Heart Rate 2021-02-01 18:35:00 [facility] [place] Respitory Rate 2021-02-01 18:35:00 Memori al [place] Height 2021-02-01 18:35:00 152.4 cm [facility] [place] Weight 2021-02-01 18:35:00 [facility] [place] BMI Calculated 2021-02-01 18:35:00 Memori al [place] Systolic (mm Hg) 2020-09-24 19:34:00 Lev rial [place] Diastolic (mm Hg) 2020-09-24 19:34:00 Mem orial [place] Heart Rate 2020-09-24 19:34:00 [facility] [place] Respitory Rate 2020-09-24 19:34:00 Memori al [place] Height 2020-09-24 19:34:00 160.02 cm [facility] [place] Weight 2020-09-24 19:34:00 [facility] [place] BMI Calculated 2020-09-24 19:34:00 Memori al [place] Respitory Rate 2020-02-26 16:32:00 Memori al [place] Systolic (mm Hg) 2020-02-26 16:32:00 Lev rial [place] Diastolic (mm Hg) 2020-02-26 16:32:00 Mem orial [place] Heart Rate 2020-02-26 16:00:00 [facility] [place] Respitory Rate 2020-02-26 16:00:00 Memori al [place] Systolic (mm Hg) 2020-02-26 16:00:00 Lev rial [place] Diastolic (mm Hg) 2020-02-26 16:00:00 Mem orial [place] Heart Rate 2020-02-26 15:50:00 [facility] [place] Respitory Rate 2020-02-26 15:50:00 Memori al [place] Systolic (mm Hg) 2020-02-26 15:50:00 Lev rial [place] Diastolic (mm Hg) 2020-02-26 15:50:00 Mem orial [place] Heart Rate 2020-02-26 15:40:00 [facility] [place] Temperature Oral (F) 2020-02-26 15:20:00 37.0 Sole [facility] [place] Temperature Oral (F) 2020-02-26 11:25:00 37.2 Sole [facility] [place] Height 2020-02-26 11:25:00 158 cm [facility] [place] Height 2020-02-18 16:59:00 158 cm [facility] [place] Systolic blood 2020-02-02 14:39:00 134 mm[Hg] [facility] [...] Systolic (mm Hg) 2020-01-15 20:04:00 Lev rial [place] Diastolic (mm Hg) 2020-01-15 20:04:00 Mem orial [place] Heart Rate 2020-01-15 20:04:00 [facility] [place] Respitory Rate 2020-01-15 20:04:00 Memori al [place] Height 2020-01-15 20:04:00 152.4 cm [facility] [place] Weight 2020-01-15 20:04:00 [facility] [place] BMI Calculated 2020-01-15 20:04:00 Memori al [place] Systolic (mm Hg) 2019-12-02 20:40:00 Lev rial [place] Diastolic (mm Hg) 2019-12-02 20:40:00 Mem orial [place] Heart Rate 2019-12-02 20:40:00 [facility] [place] Respitory Rate 2019-12-02 20:40:00 Memori al [place] Height 2019-12-02 20:40:00 152.4 cm [facility] [place] Weight 2019-12-02 20:40:00 [facility] [place] BMI Calculated 2019-12-02 20:40:00 Memori al [place] Weight 2019-02-14 19:40:00 [facility] [place] BMI Calculated 2019-02-14 19:40:00 Memori al [place] Height 2019-02-14 19:40:00 160.02 cm [facility] [place] Respitory Rate 2019-02-14 19:40:00 Memori al [place] Heart Rate 2019-02-14 19:40:00 [facility] [place] Systolic (mm Hg) 2019-02-14 19:40:00 Lev rial [place] Diastolic (mm Hg) 2019-02-14 19:40:00 Mem orial [place] BMI Calculated 2018-12-24 20:38:00 Memori al [place] Weight 2018-12-24 20:38:00 [facility] [place] Height 2018-12-24 20:38:00 157.48 cm [facility] [place] Systolic (mm Hg) 2018-12-24 20:38:00 Lev rial [place] Diastolic (mm Hg) 2018-12-24 20:38:00 Mem orial [place] Respitory Rate 2018-12-24 20:38:00 Memori al [place] Heart Rate 2018-12-24 20:38:00 [facility] [place] Height 2018-12-20 19:20:00 152.4 cm [facility] [place] BMI Calculated 2018-12-20 19:20:00 Memori al [place] Weight 2018-12-20 19:20:00 [facility] [place] Systolic (mm Hg) 2018-12-20 19:20:00 Lev rial [place] Diastolic (mm Hg) 2018-12-20 19:20:00 Mem orial [place] Heart Rate 2018-12-20 19:20:00 [facility] [place] Respitory Rate 2018-12-20 19:20:00 Memori al [place] Systolic (mm Hg) 2018-11-22 19:23:00 Lev rial [place] Diastolic (mm Hg) 2018-11-22 19:23:00 Mem orial [place] Respitory Rate 2018-11-22 19:23:00 Carissa Redman Height 2018-11-22 19:23:00 157.48 cm Naresh Segovia Weight 2018-11-22 19:23:00 Naresh Segovia BMI Calculated 2018-11-22 19:23:00 Carissa Redman Heart Rate 2018-11-22 19:23:00 [facility] [place] Procedures Procedure Date / Time Performing Clinician Source Performed AUTHORIZATION FOR RELEASE 2022-05-02 05:01:00 Doctor Unassigned, [facility] CONSENT/REFUSAL FOR 2021-10-10 20:09:22 Doctor Unassigned, [facility] DIAGNOSIS AND TREATMENT [facility] MRI SPINE EXTERNAL STUDY 2021-04-29 16:16:04 [facility] [id number] 2020-07-02 00:00:00 [facility] [[facility]MD] US Lower Extremity 2020-05-31 00:00:00 [facility] Venous Doppler Bilateral Post Op Promis 29 Survey 2020-03-12 00:00:00 [facility] APPLICATION SHORT LEG 2020-02-26 13:13:00 [facility] anish Harringtonann SPLINT-CALF TO FOOT [id number] (Left)<sup>1</sup> ARTHROSCOPY ANKLE 2020-02-26 13:13:00 [facility] Luis jose 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 83197 (Left)<sup>2</sup> OPEN REDUCTION INTERNAL 2020-02-26 13:13:00 Lev rial [place] FIXATION TALUS FRACTURE [id number] (Left)<sup>3</sup> [L] 2019 Novel Coronavirus 2020-02-05 00:00:00 [facility] (COVID-19), MARK [[facility]] Ortho - Surgery 2020-02-02 00:00:00 [facility] Breast reduction, Naresh Knight nn bilateral [facility] Carpal tunnel syndrome of Carissa oconnell [place] right wrist Plantar fasciitis of left [facility] anish Harringtonann foot History of Breast [facility] reduction History of Carpal tunnel [facility] surgery Plan of Care Planned Activity Planned Date Details Comments Source Future Scheduled 2022-10-27 [facility] Test 09:26:37 screening (procedure) [code = 274794054] Future Scheduled 2022-10-27 [facility] Test 09:26:37 malignant neoplasm of cervix (procedure) [code = 807589793] Future Scheduled 2022-10-27 BREAST CANCER [facility] Test 09:26:37 SCREENING [code = BREAST CANCER SCREENING] Future Scheduled 2022-10-27 [facility] 09:26:37 SCREENING [code = COLONOSCOPY SCREENING] Future Scheduled 2022-10-27 COVID-19 VACCINE (3 [facility] Test 09:26:37 - Booster for Moderna series) [code = COVID-19 VACCINE (3 - Booster for Moderna series)] Future Scheduled 2022-10-27 [facility]UENZA VACCINE [facility] 09:26:37 [code = INFLUENZA VACCINE] Future Scheduled 2022-07-06 [facility] 08:29:48 screening (procedure) [code = 687667418] Future Scheduled 2022-07-06 [facility] Test 08:29:48 malignant neoplasm of cervix (procedure) [code = 901564061] Future Scheduled 2022-07-06 BREAST CANCER [facility] Test 08:29:48 SCREENING [code = BREAST CANCER SCREENING] Future Scheduled 2022-07-06 [facility] 08:29:48 SCREENING [code = COLONOSCOPY SCREENING] Future Scheduled 2022-07-06 [facility] 08[facility]29:48 - Booster for Moderna series) [code = COVID-19 VACCINE (3 - Booster for Moderna series)] Future Scheduled 2022-07-06 [facility]UENZA VACCINE [facility] Test 08:29:48 [code = INFLUENZA VACCINE] Future Scheduled 2022-04-27 HEPATITIS B VACCINES [facility] Test 09:25:03 (1 of 3 - 3-dose series) [code = HEPATITIS B VACCINES (1 of 3 - 3-dose series)] Future Scheduled 2022-04-27 [facility] 09:25:03 screening (procedure) [code = 384491028] Future Scheduled 2022-04-27 [facility] Test 09:25:03 malignant neoplasm of cervix (procedure) [code = 464915726] Future Scheduled 2022-04-27 BREAST CANCER [facility] Test 09:25:03 SCREENING [code = BREAST CANCER SCREENING] Future Scheduled 2022-04-27 [facility] 09:25:03 SCREENING [code = COLONOSCOPY SCREENING] Future Scheduled 2022-04-27 COVID-19 VACCINE (3 [facility] Test 09:25:03 - Booster for Moderna series) [code = COVID-19 VACCINE (3 - Booster for Moderna series)] Future Scheduled 2022-04-27 INFLUENZA VACCINE [facility] Test 09:25:03 [code = INFLUENZA VACCINE] Future Scheduled 2022-03-30 HEPATITIS B VACCINES Met [facility] Test 16:54:14 (1 of 3 - 3-dose series) [code = HEPATITIS B VACCINES (1 of 3 - 3-dose series)] Future Scheduled 2022-03-30 [facility] 16:54:14 screening (procedure) [code = 589133353] Future Scheduled 2022-03-30 [facility] Test 16:54:14 malignant neoplasm of cervix (procedure) [code = 684249126] Future Scheduled 2022-03-30 BREAST CANCER [facility] Test 16:54:14 SCREENING [code = BREAST CANCER SCREENING] Future Scheduled 2022-03-30 [facility] 16:54:14 SCREENING [code = COLONOSCOPY SCREENING] Future Scheduled 2022-03-30 COVID[facility]19 [facility] 16:54:14 - Booster for Moderna series) [code = COVID-19 VACCINE (3 - Booster for Moderna series)] Future Scheduled 2022-03-30 INFLUENZA VACCINE [facility] Test 16:54:14 [code = INFLUENZA VACCINE] Future Scheduled 2022-03-30 HEPATITIS B VACCINES [facility] Test 16:54:14 (1 of 3 - 3-dose series) [code = HEPATITIS B VACCINES (1 of 3 - 3-dose series)] Future Scheduled 2022-03-30 [facility] 16:54:14 screening (procedure) [code = 022797649] Future Scheduled 2022-03-30 [facility] Test 16:54:14 malignant neoplasm of cervix (procedure) [code = 181755587] Future Scheduled 2022-03-30 [facility] [...] Future Scheduled 2022-03-09 [facility] 10:28:27 (1 of 3 - 3-dose series) [code = HEPATITIS B VACCINES (1 of 3 - 3-dose series)] Future Scheduled 2022-03-09 [facility] 10:28:27 screening (procedure) [code = 737957072] Future Scheduled 2022-03-09 [facility] Test 10:28:27 malignant neoplasm of cervix (procedure) [code = 713007762] Future Scheduled 2022-03-09 [facility] [...] ospital Test 19:56:30 screening (procedure) [code = 606890213] Future Scheduled 2021-08-16 [facility] Test 19:56:30 malignant neoplasm of cervix (procedure) [code = 261118165] Future Scheduled 2021-08-16 INFLUENZA VACCINE Method [facility] [...] Clinicians Facility Department ID 2022-02-21 Outpatient Garcia, [facility] [id number] Common 13:42:03 Avnee [id number] [facility] 2021-08-10 Outpatient Garcia, [facility] [id number] Common 13:49:13 Avnee [id number] [facility] 2021-08-10 [facility] [id number] Common 13:47:59 Avnee [id number] [facility] 2021-08-10 [facility] [id number] Common 13:43:00 Avnee [id number] [facility] 2021-08-10 [facility] [id number] Common 13:37:06 Avnee [id number] [facility] 2021-08-10 [facility] [id number] Common 13:23:50 Avnee [id number] [facility] 2021-08-10 [facility] [id number] Common 13:22:32 Avnee [id number] [facility] 2021-08-10 [facility] [id number] Common 13:09:55 Avnee [id number] [facility] 2021-05-15 Outpatient Scott PERES [facility] JOSE [id number] Univers 06:58:[address] [facility] 2022-10-17 2022-10-17 Travel [id number] Methodi 00:00:00 00:00:[id number] [id number] [id number] Ho spita .[id number] 084.8 l .8 2022-09-07 2022-09-07 Outpatient ROSI ALARCON [id number] Rosi 00:00:00 00:00:00 ALFONZO armendariz 2022-07-20 2022-07-22 Outside [facility] [id number] Memoria 14:48:41 05:59:59 Medical Neurology 01 l Records Nik Segovia 2022-07-20 2022-07-22 Outside [facility] [id number] Memoria 14:48:41 05:59:59 Medical Neurology 01 l Records Nik Segovia 2022-07-20 2022-07-21 Outpatient MHMISCHER MHMISCHER [id number] 08:48:41 23:59:59 01 2022-05-02 2022-05-02 (TEL) STLMLC STLMLC [id number] Co mmon 00:00:00 00:00:00 [facility] 2022-05-02 2022-05-02 Orders Doctor SPENSER [id number] Univers 00:00:00 00:00:00 Only Unassigned, MARIA ELENA [id number] ity of [facility] 4.2.7.2.686 [facility] [phone] [facility] [address] 2022-02-21 2022-02-21 Outpatient ROSI CAMPBELL [id number] Rosi 00:00:00 00:00:00 HAMZAH armendariz 2021-10-10 2021-10-10 Emergency [facility] E[facility] [id number] Univers 15:21:00 15:42:00 CAT ity of [facility] 2021-10-10 2021-10-10 Emergency [facility] 1.2.840.114 [id number] Univers 15:21:00 15:42:00 Cat DUMONT 350.1.13.10 ity [facility] 4.2.7.2.686 [facility] [id number] [facility] [address] 2021-10-10 2021-10-10 Outpatient ROSI ALARCON [id number] Rosi 00:00:00 00:00:00 ALFONZO armendariz 2021-09-09 2021-09-11 Outside nullFlavo MNA [id number] Memoria 15:41:21 05:59:59 Medical r Neurology 00 l Records Nik Segovia 2021-09-09 2021-09-11 Outside nullFlavo MNA [id number] Memoria 15:41:21 05:59:59 Medical r Neurology 00 l Records Nik Segovia 2021-09-09 2021-09-10 [facility] [id number] 09:41:21 23:59:59 00 2021-09-09 2021-09-09 Outpatient ROSI ALARCON [id number] Rosi 00:00:00 00:00:00 ALFONZO Seybol d 2021-08-26 2021-08-26 Outpatient ROSI ALARCON [id number] Rosi 00:00:00 00:00:00 ALFONZO Seybol d 2021-07-05 2021-07-05 Outpatient ROSI ALARCON [id number] Rosi 00:00:00 00:00:00 ALFONZO Seybol d 2021-07-05 2021-07-05 Outpatient ROSI ALARCON [id number] Rosi 00:00:00 00:00:00 ALFONZO Seybol d 2021-06-02 2021-06-02 Outpatient ROSI ALARCON [id number] Rosi 00:00:00 00:00:00 ALFONZO Seybol d 2021-05-23 2021-05-23 Documentat Marina 1.2.840.1 [id number] Methodi 00:00:00 00:00:00 ion Tony Hdz 49563.1.[address] 3.430.2.7 Hospit a .3.570780 l .8 2021-05-18 2021-05-18 [facility] 1.2.840.1 [id number] Methodi 12:57:38 23:59:[address] 3.430.2.7 Hospit a .3.130605 l .8 2021-05-18 2021-05-18 Office Marina 1.2.840.1 [id number] Methodi 13:15:00 15:18:57 Visit Tony Hdz 93405.1.[address] 3.430.2.7 Hospit a .3.515175 l .8 2021-05-18 2021-05-18 Outpatient [facility] [id number] [place] 00:00:00 00:00:[address] 2021-05-18 2021-05-18 Orders Marina, 1.2.840.1 [id number] Methodi 00:00:00 00:00:00 Only Tony Hdz 07239.1.[address] 3.430.2.7 Hospit a .3.007863 l .8 2021-05-16 2021-05-16 Outpatient ROSI ALARCON [id number] Rosi 00:00:00 00:00:00 ALFONZO armendariz 2021-05-11 2021-05-11 Outpatient ROSI ALARCON [id number] Rosi 00:00:00 00:00:00 ALFONZO armendariz 2021-05-11 2021-05-11 Outpatient ROSI ALARCON [id number] Rosi 00:00:00 00:00:00 ALFONZO armendariz 2021-04-28 2021-04-28 Office Jered Alarcon 1.2.840.114 [id number] Rosi 09:39:43 10:09:43 Visit Alfonzo [place] 350.1.13.13 Se russ Orantes 1.2.7.2.686 [id number] [id number] 2021-04-27 2021-04-27 Ambulatory nullFlavo MNA [id number] Memoria 15:15:00 15:15:00 Pre-Reg r Neurology 13 l Prentiss Luca 2021-04-27 2021-04-27 Ambulatory nullFlavo MNA [id number] Memoria 15:15:00 15:15:00 Pre-Reg r Neurology 13 l Nik Segovia 2021-04-27 2021-04-27 Outpatient [facility] [id number] Memoria 10:15:00 10:15:00 13 l Luca 2021-04-27 2021-04-[address] [facility] [id number] 10:15:00 10:15:00 Malcom Graham 2021-04-21 2021-04-21 (TEL) STLMLC STLMLC [id number] Co mmon 00:00:00 00:00:00 [facility] 2021-04-12 2021-04-12 (TEL) STLMLC STLMLC [id number] Co mmon 00:00:00 00:00:00 [facility] 2021-04-06 2021-04-06 (TEL) STLMLC STLMLC [id number] Co mmon 00:00:00 00:00:00 [facility] 2021-03-31 2021-03-31 (TEL) STLMLC STLMLC [id number] Co mmon 00:00:00 00:00:00 [facility] 2021-03-30 2021-03-30 OFFICE STLMLC STLMLC [id number] Co mmon 00:00:00 00:00:00 VISIT EST Spir it PT LEVEL 3 [facility] 2021-03-30 2021-03-30 (TEL) STLMLC STLMLC [id number] Co mmon 00:00:00 00:00:00 [facility] 2021-03-28 2021-03-28 Outpatient ROYCE DELEON [facility] [id number] Univers 10:30:00 10:30:00 ity of [facility] 2021-03-23 2021-03-23 Telephone [facility] 1.2.840.114 [id number] Univers 00:00:00 00:00:00 [facility] 350.1.13.10 it y [facility] 4.2.7.2.686 [place] Sam?Blea [phone] [address] Medical Office Building 2021-03-16 2021-03-17 Outpatient nullFlavo MNA [id number] Memoria 13:15:00 04:59:59 r Neurology 12 l Prentissrefugio Segovia 2021-03-16 2021-03-17 Outpatient nullFlavo MNA [id number] Memoria 13:15:00 04:59:59 r Neurology 12 l Nik Segovia 2021-03-17 2021-03-17 (TEL) STLMLC STLMLC [id number] Co mmon 00:00:00 00:00:00 [facility] 2021-03-16 2021-03-16 [facility] [id number] 08:15:00 23:59:59 Malcom Devonte Graham 2021-03-16 2021-03-16 Outpatient MHIE MHIE [id number] Memoria 08:15:00 08:15:00 12 l [place] 2021-02-23 2021-02-23 OFFICE STLMLC STLMLC [id number] Co mmon 00:00:00 00:00:00 VISIT EST Spir it PT LEVEL 3 [facility] 2021-02-21 2021-02-21 (TEL) STLMLC STLMLC [id number] Co mmon 00:00:00 00:00:00 [facility] 2021-02-16 2021-02-16 (TEL) STLMLC STLMLC [id number] Co mmon 00:00:00 00:00:00 [facility] 2021-02-15 2021-02-15 OFFICE STLMLC STLMLC [id number] Co mmon 00:00:00 00:00:00 VISIT EST Spir it PT LEVEL 3 [facility] 2021-02-11 2021-02-11 Outpatient Scott PERES [facility] [id number] Univers 08:15:00 08:56:[address] [facility] 2021-02-11 2021-02-11 Office Ja [facility] [id number] Univers 08:13:08 08:56:02 Visit Ester SOUSA 350.1.13.10 it y of SURGICAL 4.2.7.2.686 [place] as SPECIALTI [id number] Fl dical ES [address] TYLER 2021-02-10 2021-02-10 Outpatient Scott WOOD [facility] [id number] Univers 13:00:00 13:00:[address] [facility] 2021-02-03 2021-02-03 Outpatient Scott WOOD [facility] [id number] Univers 10:30:00 10:30:[address] [facility] 2021-02-01 2021-02-02 Outpatient nullFlavo MNA [id number] Memoria 18:30:00 04:59:59 r Neurology 11 l Nik Segovia 2021-02-01 2021-02-02 Outpatient nullFlavo MNA [id number] Memoria 18:30:00 04:59:59 r Neurology 11 l Nik Segovia 2021-02-01 2021-02-01 Outpatient DENNIS EspinalER [facility] [id number] 13:30:00 23:59:59 Malcmo Ashlee Graham 2021-02-01 2021-02-01 Outpatient MHIE MHIE [id number] Memoria 13:30:00 13:30:00 11 violet Luca 2021-01-20 2021-01-20 OFFICE STLMLC STLMLC [id number] Co mmon 00:00:00 00:00:00 VISIT EST Spir it PT LEVEL 3 [facility] 2021-01-14 2021-01-14 (TEL) STLMLC STLMLC [id number] Co mmon 00:00:00 00:00:00 [facility] 2020-12-23 2020-12-23 Outpatient Scott JAFFE [facility] [id number] Univers 10:00:00 10:00:[address] [facility] 2020-12-23 2020-12-23 Outpatient Scott OLSON [facility] [id number] Univers 09:00:00 09:00:00 WONDIFUL ity o f [facility] 2020-12-16 2020-12-16 Outpatient Scott WOOD [facility] [id number] Univers 10:30:00 10:30:00 [facility] 2020-12-15 2020-12-15 (TEL) STLMLC STLMLC [id number] Co mmon 00:00:00 00:00:00 [facility] 2020-12-15 2020-12-15 [facility] [id number] Co mmon 00:00:00 00:00:00 VISIT NEW Spir it PT LEVEL 4 - [facility] 2020-12-06 2020-12-06 Outpatient Scott WOOD [facility] [id number] Univers 15:52:18 23:59:00 [facility] 2020-11-25 2020-11-25 Outpatient Scott PRUETT ROYCE [facility] [id number] Univers 09:00:00 09:00:00 [facility] 2020-11-11 2020-11-11 Outpatient Scott PRUETT ROYCE [facility] [id number] Univers 15:30:00 15:30:00 [facility] 2020-11-04 2020-11-04 Outpatient R JACQUELINE [facility] [id number] Univers 10:00:00 10:00:00 [facility] 2020-10-28 2020-10-28 Outpatient Scott WOOD [facility] [id number] Univers 10:45:00 10:45:00 [facility] 2020-10-25 2020-10-25 Outpatient Scott WOOD [facility] [id number] Univers 14:45:00 14:45:00 [facility] 2020-10-15 2020-10-15 [facility] [id number] Univers 10:00:00 10:00:00 [facility] 2020-10-08 2020-10-08 Outpatient R JA [facility] [id number] Univers 09:30:00 09:30:00 ESTER [facility] 2020-10-08 2020-10-08 Outpatient R BRITTNEY [facility] [id number] Univers 09:15:00 09:15:00 OSCAR [facility] 2020-09-24 2020-09-25 Outpatient nullFlavo MNA [id number] Memoria 19:00:00 05:59:59 r Neurology 10 l Prentiss [place] 2020-09-24 2020-09-25 Outpatient nullFlavo MNA [id number] Memoria 19:00:00 05:59:59 r Neurology 10 l Nik Harringtonann 2020-09-24 2020-09-24 Outpatient VIPUL EspinalSCHER MHMISCHER [id number] 13:00:00 23:59:59 Malcom 10 Santos 2020-09-24 2020-09-24 [facility] [id number] Univers 11:58:20 23:59:00 MG [facility] 2020-09-24 2020-09-24 Outpatient MHIE MHIE [id number] Memoria 13:00:00 13:00:00 10 violet Luca 2020-09-21 2020-09-21 [facility] [id number] Univers 00:00:00 00:00:00 [facility] 2020-09-09 2020-09-09 [facility]patient [facility] [id number] Univers 09:15:00 09:15:00 [facility] 2020-09-06 2020-09-06 Ambulatory nullFlavo MNA [id number] Memoria 16:30:00 16:30:00 Pre-Reg r Neurology 09 l Nik Luca 2020-09-06 2020-09-06 Ambulatory nullFlavo MNA [id number] Memoria 16:30:00 16:30:00 Pre-Reg r Neurology 09 l Prentiss Luca 2020-09-06 2020-09-06 Outpatient MHIE MHIE [id number] Memoria 10:30:00 10:30:00 09 violet HarringtonLuca 2020-09-06 2020-09-06 Outpatient DIMA EspinalMISCHER MHMISCHER [id number] 10:30:00 10:30:00 Malcom 09 Santos 2020-07-14 2020-07-14 Outpatient Scott FAUST [facility] [id number] Univers 19:00:00 19:00:00 BROOKE serrano [facility] 2020-07-02 2020-07-02 AppointNEAL [facility] [id number] [place] 14:30:00 14:30:00 t; MARKEL, RAJI, - Sugar Phys ici RAJI, DPM Land 2 ans DPM 2020-06-01 2020-06-01 Ambulatory nullFlavo MNA [id number] Memoria 20:00:00 20:00:00 Pre-Reg r Neurology 08 l [facility] 2020-06-01 2020-06-01 Ambulatory nullFlavo MNA [id number] Memoria 20:00:00 20:00:00 Pre-Reg r Neurology 08 l [facility] 2020-06-01 2020-06-01 Outpatient MHIE IE [id number] Memoria 14:00:00 14:00:00 08 l [place] 2020-06-01 2020-06-01 Outpatient [facility] [id number] 14:00:00 14:00:[address] [place] [address] 2020-05-31 2020-05-31 [facility] [id number] [place] 10:00:00 10:00:00 t; RAJI JEAN BAPTISTE, - Sugar Phys ici RAJI, DPM Land 2 ans DPM 2020-05-10 2020-05-10 [facility] [id number] [place] 09:00:00 09:00:00 t; RAJI JEAN BAPTISTE, - Sugar Phys ici RAJI, DPM Land 2 ans DPM 2020-04-27 2020-04-27 [facility] [id number] [place] 14:45:00 14:45:00 t; RAJI JEAN BAPTISTE, - Sugar Phys ici RAJI, DPM Land 2 ans DPM 2020-03-29 2020-03-29 [facility] [id number] [place] 13:00:00 13:00:00 t; RAJI JEAN BAPTISTE, - Sugar Phys ici RAJI, DPM Land 2 ans DPM 2020-03-08 2020-03-08 [facility] [id number] [place] 11:15:00 11:15:00 t; RAJI JEAN BAPTISTE, - Sugar Phys ici RAJI, DPM Land 2 ans DPM 2020-02-26 2020-02-26 Outpatient nullFlavo [facility] [id number] Memoria 10:46:09 16:30:00 [facility] 2020-02-26 2020-02-26 Outpatient nullFlavo [facility] [id number] Memoria 10:46:09 16:30:00 r [facility] 2020-02-26 2020-02-26 Outpatient nullFlavo [facility] [id number] Memoria 05:46:09 11:30:00 r violet [place] 2020-02-26 2020-02-26 Outpatient Markel, [id number] 05:46:09 11:30:00 Raji 8 2020-02-26 2020-02-26 Appointmen [facility] [id number] [place] 10:30:00 10:30:00 t; RAJI JEAN BAPTISTE, - Sugar Phys ici RAJI, DPM Land 2 ans DPM 2020-02-02 2020-02-02 Appointrosaura [facility] [id number] [place] 10:45:00 10:45:00 t; RAJI JEAN BAPTISTE, - Sugar Phys ici RAJI, DPM Land 2 ans DPM 2020-01-15 2020-01-16 Outpatient nullFlavo MNA [id number] Memoria 20:00:00 04:59:59 r Neurology 07 l Nik Segovia 2020-01-15 2020-01-16 Outpatient nullFlavo MNA [id number] Memoria 20:00:00 04:59:59 r Neurology 07 l Nik Segovia 2020-01-15 2020-01-15 Outpatient VIRGILIO Espinal [facility]ER [id number] 15:00:00 23:59:59 Malcom 07 Santos 2020-01-15 2020-01-15 Ambulatory nullFlavo MNA [id number] Memoria 20:00:00 20:00:00 Pre-Reg r Neurology 06 l Nik Segovia 2020-01-15 2020-01-15 Ambulatory nullFlavo MNA [id number] Memoria 20:00:00 20:00:00 Pre-Reg r Neurology 06 l Nik Segovia 2020-01-15 2020-01-15 Outpatient MHIE PUNEET [id number] Memoria 15:00:00 15:00:00 06 l Luca 2020-01-15 2020-01-15 Outpatient MHIE PUNEET [id number] Memoria 15:00:00 15:00:00 07 l Luca 2020-01-15 2020-01-15 Outpatient Kylie, MHMISCHER MHMISCHER [id number] 15:00:00 15:00:00 Malcom 06 Santos 2019-12-02 2019-12-03 Outpatient nullFlavo MNA [id number] Memoria 20:30:00 04:59:59 r Neurology 05 violet Segovia 2019-12-02 2019-12-03 Outpatient nullFlavo MNA [id number] Memoria 20:30:00 04:59:59 r Neurology 05 violet Segovia 2019-12-02 2019-12-02 Outpatient Kylie, MHMISCHER MHMISCHER [id number] 15:30:00 23:59:59 Malcom Rere Graham 2019-12-02 2019-12-02 Outpatient MHIE MHIE [id number] Memoria 15:30:00 15:30:00 05 violet Segovia 2019-05-23 2019-05-23 Ambulatory nullFlavo MNA [id number] Memoria 19:15:00 19:15:00 Pre-Reg r Neurology 04 violet Segovia 2019-05-23 2019-05-23 Ambulatory nullFlavo MNA [id number] Memoria 19:15:00 19:15:00 Pre-Reg r Neurology 04 violet Segovia 2019-05-23 2019-05-23 Outpatient MHIE MHIE [id number] Memoria 13:15:00 13:15:00 04 violet Segovia 2019-05-23 2019-05-23 Outpatient VIPUL EspinalSCHER MHMISCHER [id number] 13:15:00 13:15:00 Malcom Connor Graham 2019-03-23 2019-03-23 Emergency Harish, [facility] [id number] 12:37:57 13:11:00 Palomo Dumont 350.1.13.10 [place] [address].2.7.2.686 [place] [id number] 2019-03-23 2019-03-23 Orders Doctor DUEÑAS [id number] [id number] 00:00:00 00:00:00 Only Unassigned, MARIA ELENA 350.1.13.10 [place] [id number] [id number] 2019-02-14 2019-02-15 Outpatient nullFlavo MNA [id number] Memoria 20:00:00 04:59:59 r Neurology 02 violet Segovia 2019-02-14 2019-02-15 Outpatient nullFlavo MNA [id number] Memoria 20:00:00 04:59:59 r Neurology 02 violet Zaragoza [place] 2019-02-14 2019-02-14 Outpatient [facility] [id number] 15:00:00 23:59:59 Malcom 02 Santos 2019-02-14 2019-02-14 Outpatient MHIE MHIE [id number] Memoria 15:00:00 15:00:00 02 violet Luca 2018-12-24 2018-12-25 Outpatient nullFlavo MNA [id number] Memoria 20:15:00 04:59:59 r Neurology 03 violet Zaragoza Luca 2018-12-24 2018-12-25 Outpatient nullFlavo MNA [id number] Memoria 20:15:00 04:59:59 r Neurology 03 violet Prentiss Luca 2018-12-24 2018-12-24 Outpatient Kylie [facility] [id number] 15:15:00 23:59:59 Malcom Nasreen Santos 2018-12-24 2018-12-24 Outpatient MHIE MHIE [id number] Memoria 15:15:00 15:15:00 03 violet Segovia 2018-12-20 2018-12-21 Outpatient nullFlavo MNA [id number] Memoria 18:45:00 04:59:59 r Neurology 01 violet Zaragoza [place] 2018-12-20 2018-12-21 Outpatient nullFlavo MNA [id number] Memoria 18:45:00 04:59:59 r Neurology 01 violet Zaragoza [place] 2018-12-20 2018-12-20 Outpatient DIMA EspinalMISCHER MISCHER [id number] 13:45:00 23:59:59 Malcom Gina Graham 2018-12-20 2018-12-20 Outpatient MHIE MHIE [id number] Memoria 13:45:00 13:45:00 01 violet Segovia 2018-11-22 2018-11-23 Outpatient nullFlavo MNA [id number] Memoria 19:45:00 04:59:59 r Neurology 00 l [facility] 2018-11-22 2018-11-23 Outpatient nullFlavo MNA [id number] [facility] 19:45:00 04:59:59 r Neurology 00 l [facility] 2018-11-22 2018-11-22 Outpatient VIRGILIO Espinal [id number] 14:45:00 23:59:59 Malcom 00 Santos 2018-11-22 2018-11-22 Out[facility] [id number] 14:[facility] 14:45:00 00 l [place] Results Test Description Test Time Test Comments Results Result Comments Source LABORATORY 2020-02-18 17:38:00 Test Item Value Reference Range Interpretation Comme nts Glucose Lvl (test code = Glucose Lvl) 89 70-99 [place] 373530-08-05 17:38:00 Test Item Value Reference Range Interpretation Comments BUN (test code = BUN) 12 7-22 [place] 373530-08-05 17:38:00 Test Item Value Reference Range Interpretation Comments Creatinine (test code = Creatinine) 0.79 0.50-1.40 [place] 373530-08-05 17:38:00 Test Item Value Reference Range Interpretation Comments Sodium Level (test code = Sodium Level) 141 135-145 [place] 373530-08-05 17:38:00 Test Item Value Reference Range Interpretation Comments Potassium Level (test code = Potassium 4.5 3.5-5.1 Level) [place] 373530-08-05 17:38:00 Test Item Value Reference Range Interpretation Comments Chloride Level (test code = Chloride 108 95-109 Level) [place] 373530-08-05 17:38:00 Test Item Value Reference Range Interpretation Comments Total Carbon Dioxide Level (test code = 24 24-32 Total Carbon Dioxide Level) [place] 373530-08-05 17:38:00 Test Item Value Reference Range Interpretation Comments AGAP (test code = AGAP) 13.5 10.0-20.0 [place] 373530-08-05 17:38:00 Test Item Value Reference Range Interpretation Comments Calcium Level (test code = Calcium 9.5 8.5-10.5 Level) [facility]ry[facility]kEEHXMN[facility]ILY7439-27-15 17:38:00 Test Item Value Reference Range Interpretation Comments eGFR (test code = eGFR) 92 [facility] CampusLtoveylXCLGJGHHJV0916-13-27 17:38:00 Test Item Value Reference Range Interpretation Comments Results (test code = Reported (02/18/20 12:38 Results) PM) [facility] CampusOgbrbjdKGCRCUQHOD6220-32-88 17:38:00 Test Item Value Reference Range Interpretation Comments White Blood Count (test code = White 6.4 3.7-10.4 Blood Count) [facility] CampusYrzoygiQMFQLDVFUJ0278-08-29 17:38:00 Test Item Value Reference Range Interpretation Comments Red Blood Cell Count (test code = Red 4.37 4.20-5.40 Blood Cell Count) [facility] CampusXukixdqWDWFCYDBII4916-37-12 17:38:00 Test Item Value Reference Range Interpretation Comments Hemoglobin (test code = Hemoglobin) 12.7 12.0-16.0 [facility] CampusNocfggaNPLNWJOCRL7603-81-11 17:38:00 Test Item Value Reference Range Interpretation Comments Hematocrit (test code = Hematocrit) 38.3 36.0-48.0 [facility] CampusRklxqtqJBTBFBOUHB6681-36-49 17:38:00 Test Item Value Reference Range Interpretation Comments MCV (test code = MCV) 87.5 80.0-98.0 [facility] CampusUgontuyZJRMBMXMPD6215-43-15 17:38:00 Test Item Value Reference Range Interpretation Comments MCH (test code = MCH) 29.2 pg 27.0-31.0 [facility] CampusHdyzghhXWEHREEXVN9352-89-16 17:38:00 Test Item Value Reference Range Interpretation Comments MCHC (test code = MCHC) 33.3 32.0-36.0 [facility] CampusLxmouvoZWLONMNPZX4098-06-21 17:38:00 Test Item Value Reference Range Interpretation Comments RDW (test code = RDW) 14.2 11.5-14.5 [facility] CampusKllgqmzQMMETAYCDV5277-53-08 17:38:00 Test Item Value Reference Range Interpretation Comments Platelet (test code = Platelet) 300 133-450 [facility] CampusMcwworyCWTMWMHJBS4824-32-10 17:38:00 Test Item Value Reference Range Interpretation Comments MPV (test code = MPV) 8.3 7.4-10.4 [place] [address]-08-05 17:38:00 Test Item Value Reference Range Interpretation Comments NRBCs # (test code = NRBCs #) 0.1 0.4-2.2 [facility] CampusLadnkocQZYYITZKGP5809-22-95 17:38:00 Test Item Value Reference Range Interpretation Comments Results (test code = Reported (02/18/20 12:38 Results) PM) [facility] CampusUwsmjqqMQJXBPEHMK6371-21-60 17:38:00 Test Item Value Reference Range Interpretation Comments Neutrophil % (test code = Neutrophil %) 62.2 45.0-75.0 [facility] CampusBympomvYUNOFXPSOY6777-50-40 17:38:00 Test Item Value Reference Range Interpretation Comments Monocyte % (test code = Monocyte %) 6.8 2.0-12.0 [facility] CampusXnfyvtjJXAAKQEABE6686-39-55 17:38:00 Test Item Value Reference Range Interpretation Comments Lymphocyte % (test code = Lymphocyte %) 26.9 20.0-40.0 [facility] CampusGlszmybHFQKNKPOYR1313-42-51 17:38:00 Test Item Value Reference Range Interpretation Comments Eosinophil # (test code 3.6 See_Comment [Au tomated message] The = Eosinophil #) system which generated this result tra nsmitted reference range : <=4.0. The reference r karan was not used to int erpret this result as normal/abnormal . [facility] CampusDsnhlmjELRVDSSDZV5895-21-31 17:38:00 Test Item Value Reference Range Interpretation Comments Basophil % (test code = 0.5 See_Comment [Au tomated message] The Basophil %) system which ge nerated this result tra nsmitted reference range : <=1.0. The reference r karan was not used to int erpret this result as normal/abnormal . [facility] CampusDjipeplEWPMUDGWEP6391-48-95 17:38:00 Test Item Value Reference Range Interpretation Comments Neutrophil # (test code = Neutrophil #) 4.0 1.5-8.1 [facility] CampusMtwzdfxKDQANYEYIX2189-38-15 17:38:00 Test Item Value Reference Range Interpretation Comments Lymphocyte # (test code = Lymphocyte #) 1.7 1.0-5.5 [facility] [id number] 17:38:00 Test Item Value Reference Range Interpretation Comments Monocyte # (test code = 0.4 See_Comment [Au tomated message] The Monocyte #) system which ge nerated this result tra nsmitted reference range : <=0.8. The reference r karan was not used to int erpret this result as normal/abnormal . [facility] [id number] 17:38:00 Test Item Value Reference Range Interpretation Comments Eosinophil % (test code 0.2 See_Comment [Au tomated message] The = Eosinophil %) system which generated this result tra nsmitted reference range : <=0.5. The reference r karan was not used to int erpret this result as normal/abnormal . [facility] [id number] 17:38:00 Test Item Value Reference Range Interpretation Comments Results (test code = Reported (02/18/20 12:38 Results) PM) [facility] [id number] 17:38:00 Test Item Value Reference Range Interpretation Comments Glucose Lvl (test code = Glucose Lvl) 89 70-99 [facility] CampusJqboxcpVAHIHNRSMR1781-95-14 17:38:00 Test Item Value Reference Range Interpretation Comments BUN (test code = BUN) 12 7-22 [facility]PpbrszlSCMEMFCWXV9163-04-85 17:38:00 Test Item Value Reference Range Interpretation Comments Creatinine (test code = Creatinine) 0.79 0.50-1.40 [facility]LljrccyTORPDSTFMA1260-83-91 17:38:00 Test Item Value Reference Range Interpretation Comments Sodium Level (test code = Sodium Level) 141 135-145 [facility]TzkgmafBKBAWEORMZ2358-06-14 17:38:00 Test Item Value Reference Range Interpretation Comments Potassium Level (test code = Potassium 4.5 3.5-5.1 Level) [facility] CampusObvvkasSKHVZZRFVU7636-30-28 17:38:00 Test Item Value Reference Range Interpretation Comments Chloride Level (test code = Chloride 108 95-109 Level) [facility] CampusXnyyzacUFILBIYFSC4959-51-37 17:38:00 Test Item Value Reference Range Interpretation Comments Total Carbon Dioxide Level (test code = 24 24-32 Total Carbon Dioxide Level) [facility] CampusBqlwvumEHWFGZRLCJ4240-31-08 17:38:00 Test Item Value Reference Range Interpretation Comments AGAP (test code = AGAP) 13.5 10.0-20.0 [facility] CampusRbekkswSLVGVEREDM8809-43-54 17:38:00 Test Item Value Reference Range Interpretation Comments Calcium Level (test code = Calcium 9.5 8.5-10.5 Level) [address]08-05 17:38:00 Test Item Value Reference Range Interpretation Comments eGFR (test code = eGFR) [address] [place] [address]-08-05 17:38:00 Test Item Value Reference Range Interpretation Comments Results (test code = Reported (02/18/20 12:38 Results) PM) [address]08-05 17:38:00 Test Item Value Reference Range Interpretation Comments White Blood Count (test code = White 6.4 3.7-10.4 Blood Count) [place]30-08-05 17:38:00 Test Item Value Reference Range Interpretation Comments Red Blood Cell Count (test code = Red 4.37 4.20-5.40 Blood Cell Count) [place]3530-08-05 17:38:00 Test Item Value Reference Range Interpretation Comments Hemoglobin (test code = Hemoglobin) 12.7 12.0-16.0 [place] [address]-08-05 17:38:00 Test Item Value Reference Range Interpretation Comments Hematocrit (test code = Hematocrit) 38.3 36.0-48.0 [place]3530-08-05 17:38:00 Test Item Value Reference Range Interpretation Comments MCV (test code = MCV) 87.5 80.0-98.0 [place]3530-08-05 17:38:00 Test Item Value Reference Range Interpretation Comments MCH (test code = MCH) 29.2 pg 27.0-31.0 [place]3530-08-05 17:38:00 Test Item Value Reference Range Interpretation Comments MCHC (test code = MCHC) 33.3 32.0-36.0 [place] [address]3530-08-05 17:38:00 Test Item Value Reference Range Interpretation Comments RDW (test code = RDW) 14.2 11.5-14.5 [place] [address]3530-08-05 17:38:00 Test Item Value Reference Range Interpretation Comments Platelet (test code = Platelet) 300 133-450 [place]3530-08-05 17:38:00 Test Item Value Reference Range Interpretation Comments MPV (test code = MPV) 8.3 7.4-10.4 [facility] CampusGyfjwmwRQBSBXNYSR2045-06-20 17:38:00 Test Item Value Reference Range Interpretation Comments NRBCs # (test code = NRBCs #) 0.1 0.4-2.2 [facility] CampusTnkxddyFVSZPMCSUC8128-47-68 17:38:00 Test Item Value Reference Range Interpretation Comments Results (test code = Reported (02/18/20 12:38 Results) PM) [facility] CampusZegfiexFAIFQQFGKV8643-01-89 17:38:00 Test Item Value Reference Range Interpretation Comments Neutrophil % (test code = Neutrophil %) 62.2 45.0-75.0 [facility] CampusYtohpmqIQSARTKITU6104-13-78 17:38:00 Test Item Value Reference Range Interpretation Comments Monocyte % (test code = Monocyte %) 6.8 2.0-12.0 [facility] CampusLscauivFWHPVSTXKX9434-39-01 17:38:00 Test Item Value Reference Range Interpretation Comments Lymphocyte % (test code = Lymphocyte %) 26.9 20.0-40.0 [facility] CampusIiwjchjDGMSUQVCNF7193-22-58 17:38:00 Test Item Value Reference Range Interpretation Comments Eosinophil # (test code 3.6 See_Comment [Au tomated message] The = Eosinophil #) system which generated this result tra nsmitted reference range : <=4.0. The reference r karan was not used to int erpret this result as normal/abnormal . [facility] CampusXigzprkSIRZZYOLQQ0486-48-11 17:38:00 Test Item Value Reference Range Interpretation Comments Basophil % (test code = 0.5 See_Comment [Au tomated message] The Basophil %) system which ge nerated this result tra nsmitted reference range : <=1.0. The reference r karan was not used to int erpret this result as normal/abnormal . [facility] CampusDvuxyylJRKMYNYOMC1097-26-43 17:38:00 Test Item Value Reference Range Interpretation Comments Neutrophil # (test code = Neutrophil #) 4.0 1.5-8.1 [facility] CampusWjlxluaUKMQLCIJGS5011-11-92 17:38:00 Test Item Value Reference Range Interpretation Comments Lymphocyte # (test code = Lymphocyte #) 1.7 1.0-5.5 [facility] CampusAabyeriGKYFXTSAMJ0903-09-33 17:38:00 Test Item Value Reference Range Interpretation Comments Monocyte # (test code = 0.4 See_Comment [Au tomated message] The Monocyte #) system which ge nerated this result tra nsmitted reference range : <=0.8. The reference r karan was not used to int erpret this result as normal/abnormal . [facility] CampusIicyrcqYGERICMRYY3528-02-77 17:38:00 Test Item Value Reference Range Interpretation Comments Eosinophil % (test code 0.2 See_Comment [Au tomated message] The = Eosinophil %) system which generated this result tra nsmitted reference range : <=0.5. The reference r karan was not used to int erpret this result as normal/abnormal . [facility] CampusUszbpoiBRYYTTJRKR0030-51-67 17:38:00 Test Item Value Reference Range Interpretation Comments Results (test code = Reported (02/18/20 12:38 Results) PM) [facility] CampusRgtblsqBGFSWVJMBQ2939-51-09 17:38:00 Test Item Value Reference Range Interpretation Comments Glucose Lvl (test code = Glucose Lvl) 89 70-99 [facility] CampusBkiimtnWGSESNAKQD3290-17-97 17:38:00 Test Item Value Reference Range Interpretation Comments BUN (test code = BUN) 12 7-22 [facility]PmsksspLAWNCNQDOS0621-50-24 17:38:00 Test Item Value Reference Range Interpretation Comments Creatinine (test code = Creatinine) 0.79 0.50-1.40 [facility] CampusCwpstdfIBNZHHMSHW5690-45-13 17:38:00 Test Item Value Reference Range Interpretation Comments Sodium Level (test code = Sodium Level) 141 135-145 [facility] CampusLmjvpocCJVCPGPTCX4369-70-87 17:38:00 Test Item Value Reference Range Interpretation Comments Potassium Level (test code = Potassium 4.5 3.5-5.1 Level) [facility] CampusDfinsmvDBTDFSQUXG4294-05-87 17:38:00 Test Item Value Reference Range Interpretation Comments Chloride Level (test code = Chloride 108 95-109 Level) [facility] CampusXpnfhbyXTGRIFKWGH4843-04-48 17:38:00 Test Item Value Reference Range Interpretation Comments Total Carbon Dioxide Level (test code = 24 24-32 Total Carbon Dioxide Level) [facility] CampusAobdabeLHKOMWQDQS4210-70-77 17:38:00 Test Item Value Reference Range Interpretation Comments AGAP (test code = AGAP) 13.5 10.0-20.0 [facility] CampusNhjwdsvGHPLMMRRIE4149-53-81 17:38:00 Test Item Value Reference Range Interpretation Comments Calcium Level (test code = Calcium 9.5 8.5-10.5 Level) [facility] CampusNfwipvtUZSIUUQDIE8066-91-67 17:38:00 Test Item Value Reference Range Interpretation Comments eGFR (test code = eGFR) 92 [facility] CampusSgxgptlNPXYUQTLXI5956-06-04 17:38:00 Test Item Value Reference Range Interpretation Comments Results (test code = Reported (02/18/20 12:38 Results) PM) [place] [address]30-08-05 17:38:00 Test Item Value Reference Range Interpretation Comments White Blood Count (test code = White 6.4 3.7-10.4 Blood Count) [facility] CampusIlnwcvlZEDKBDVVWO2068-39-03 17:38:00 Test Item Value Reference Range Interpretation Comments Red Blood Cell Count (test code = Red 4.37 4.20-5.40 Blood Cell Count) [facility] CampusTdpojbyUWBJTQDQMM3551-82-85 17:38:00 Test Item Value Reference Range Interpretation Comments Hemoglobin (test code = Hemoglobin) 12.7 12.0-16.0 [facility] CampusYkedgfnNBATFGZATO3046-06-28 17:38:00 Test Item Value Reference Range Interpretation Comments Hematocrit (test code = Hematocrit) 38.3 36.0-48.0 [facility] CampusTdidypaCIYJEBQUSH8535-40-52 17:38:00 Test Item Value Reference Range Interpretation Comments MCV (test code = MCV) 87.5 80.0-98.0 [facility] CampusVxtjwdnBJETENPFGM7407-61-73 17:38:00 Test Item Value Reference Range Interpretation Comments MCH (test code = MCH) 29.2 pg 27.0-31.0 [place] [address]3530-08-05 17:38:00 Test Item Value Reference Range Interpretation Comments MCHC (test code = MCHC) 33.3 32.0-36.0 [place] [address]3530-08-05 17:38:00 Test Item Value Reference Range Interpretation Comments RDW (test code = RDW) 14.2 11.5-14.5 [facility] CampusKazewbnBGURLQEQWW6478-88-49 17:38:00 Test Item Value Reference Range Interpretation Comments Platelet (test code = Platelet) 300 133-450 [facility] CampusZsbnjroLBVDGQDUDQ1340-60-19 17:38:00 Test Item Value Reference Range Interpretation Comments MPV (test code = MPV) 8.3 7.4-10.4 [facility] CampusOhrztaqAMGGDPGXPA7605-38-00 17:38:00 Test Item Value Reference Range Interpretation Comments NRBCs # (test code = NRBCs #) 0.1 0.4-2.2 [facility] CampusEmnwbkkFHKGJCWHKU6006-29-73 17:38:00 Test Item Value Reference Range Interpretation Comments Results (test code = Reported (02/18/20 12:38 Results) PM) [facility] CampusNywxycbQLTEQPCCLQ0086-06-48 17:38:00 Test Item Value Reference Range Interpretation Comments Neutrophil % (test code = Neutrophil %) 62.2 45.0-75.0 [facility] CampusKvsyoroMPWQRXYBNJ6903-89-59 17:38:00 Test Item Value Reference Range Interpretation Comments Monocyte % (test code = Monocyte %) 6.8 2.0-12.0 [facility] CampusBrnqkdrGDBQTTTUTC8265-27-05 17:38:00 Test Item Value Reference Range Interpretation Comments Lymphocyte % (test code = Lymphocyte %) 26.9 20.0-40.0 [facility] CampusWpdliijYISUVZHWEB5828-34-95 17:38:00 Test Item Value Reference Range Interpretation Comments Eosinophil # (test code 3.6 See_Comment [Au tomated message] The = Eosinophil #) system which generated this result tra nsmitted reference range : <=4.0. The reference r karan was not used to int erpret this result as normal/abnormal . [facility] CampusIsjdhhmOZYHMATLLR2275-19-92 17:38:00 Test Item Value Reference Range Interpretation Comments Basophil % (test code = 0.5 See_Comment [Au tomated message] The Basophil %) system which ge nerated this result tra nsmitted reference range : <=1.0. The reference r karan was not used to int erpret this result as normal/abnormal . [facility] CampusZufbeivCLYIEMCUNI4427-82-84 17:38:00 Test Item Value Reference Range Interpretation Comments Neutrophil # (test code = Neutrophil #) 4.0 1.5-8.1 [facility] CampusBacwotyVCSKPGPKXG4684-53-74 17:38:00 Test Item Value Reference Range Interpretation Comments Lymphocyte # (test code = Lymphocyte #) 1.7 1.0-5.5 [facility] CampusTsounjgLUTZYKIXLS7451-27-73 17:38:00 Test Item Value Reference Range Interpretation Comments Monocyte # (test code = 0.4 See_Comment [Au tomated message] The Monocyte #) system which ge nerated this result tra nsmitted reference range : <=0.8. The reference r karan was not used to int erpret this result as normal/abnormal . [facility] CampusVvdewmyBAHJLVUZBT5028-73-39 17:38:00 Test Item Value Reference Range Interpretation Comments Eosinophil % (test code 0.2 See_Comment [Au tomated message] The = Eosinophil %) system which generated this result tra nsmitted reference range : <=0.5. The reference r karan was not used to int erpret this result as normal/abnormal . [facility] CampusFgbykxqZNFFFMZPKW8986-87-46 17:38:00 Test Item Value Reference Range Interpretation Comments Results (test code = Reported (02/18/20 12:38 Results) PM) [facility] CampusCpluduhXVAKOMVBFE6624-88-60 17:38:00 Test Item Value Reference Range Interpretation Comments Glucose Lvl (test code = Glucose Lvl) 89 70-99 [facility] CampusJxjibjsXMIVJRJTNY2601-11-27 17:38:00 Test Item Value Reference Range Interpretation Comments BUN (test code = BUN) 12 7-22 [facility] CampusQosstwtLPODSOEPMS9373-88-04 17:38:00 Test Item Value Reference Range Interpretation Comments Creatinine (test code = Creatinine) 0.79 0.50-1.40 [facility] CampusPhcwcqzNDPZNWFKQZ6736-13-88 17:38:00 Test Item Value Reference Range Interpretation Comments Sodium Level (test code = Sodium Level) 141 135-145 [facility] CampusMrwhffsTIYFYOVSRS3925-39-10 17:38:00 Test Item Value Reference Range Interpretation Comments Potassium Level (test code = Potassium 4.5 3.5-5.1 Level) [facility] CampusUphtjkmGQQUBIBULO6761-37-22 17:38:00 Test Item Value Reference Range Interpretation Comments Chloride Level (test code = Chloride 108 95-109 Level) [facility] CampusBwxcorjBSIRIFAWXI6135-79-03 17:38:00 Test Item Value Reference Range Interpretation Comments Total Carbon Dioxide Level (test code = 24 24-32 Total Carbon Dioxide Level) [facility] CampusDzlmqamRBYOQOQJSU3564-46-50 17:38:00 Test Item Value Reference Range Interpretation Comments AGAP (test code = AGAP) 13.5 10.0-20.0 [place] [address]-08-05 17:38:00 Test Item Value Reference Range Interpretation Comments Calcium Level (test code = Calcium 9.5 8.5-10.5 Level) [address]08-05 17:38:00 Test Item Value Reference Range Interpretation Comments eGFR (test code = eGFR) [address] [place] [address]-08-05 17:38:00 Test Item Value Reference Range Interpretation Comments Results (test code = Reported (02/18/20 12:38 Results) PM) [address]08-05 17:38:00 Test Item Value Reference Range Interpretation Comments White Blood Count (test code = White 6.4 3.7-10.4 Blood Count) [address]08-05 17:38:00 Test Item Value Reference Range Interpretation Comments Red Blood Cell Count (test code = Red 4.37 4.20-5.40 Blood Cell Count) [place] [address]-08-05 17:38:00 Test Item Value Reference Range Interpretation Comments Hemoglobin (test code = Hemoglobin) 12.7 12.0-16.[address]08-05 17:38:00 Test Item Value Reference Range Interpretation Comments Hematocrit (test code = Hematocrit) 38.3 36.0-48.[address]08-05 17:38:00 Test Item Value Reference Range Interpretation Comments MCV (test code = MCV) 87.5 80.0-98.[address]08-05 17:38:00 Test Item Value Reference Range Interpretation Comments MCH (test code = MCH) 29.2 pg 27.0-31.0 [place] [address]-08-05 17:38:00 Test Item Value Reference Range Interpretation Comments MCHC (test code = MCHC) 33.3 32.0-36.0 [place] [address]-08-05 17:38:00 Test Item Value Reference Range Interpretation Comments RDW (test code = RDW) 14.2 11.5-14.5 [facility] CampusSmuecfpDMBMXWJPUZ6681-88-72 17:38:00 Test Item Value Reference Range Interpretation Comments Platelet (test code = Platelet) 300 133-450 [facility] CampusVinfdahVWJZUUSBBK9152-36-15 17:38:00 Test Item Value Reference Range Interpretation Comments MPV (test code = MPV) 8.3 7.4-10.4 [facility] CampusJczlgakLXVNDCJPRX0926-87-08 17:38:00 Test Item Value Reference Range Interpretation Comments NRBCs # (test code = NRBCs #) 0.1 0.4-2.2 [place] [address]3530-08-05 17:38:00 Test Item Value Reference Range Interpretation Comments Results (test code = Reported (02/18/20 12:38 Results) PM) [facility] CampusDyuuiviNLKBHMCFDQ7833-45-56 17:38:00 Test Item Value Reference Range Interpretation Comments Neutrophil % (test code = Neutrophil %) 62.2 45.0-75.0 [facility] CampusZmblooqWBHVGZPVMC2180-17-98 17:38:00 Test Item Value Reference Range Interpretation Comments Monocyte % (test code = Monocyte %) 6.8 2.0-12.0 [facility] CampusFulvkuxNNZGAPEUAH1424-13-73 17:38:00 Test Item Value Reference Range Interpretation Comments Lymphocyte % (test code = Lymphocyte %) 26.9 20.0-40.0 [facility] CampusCsfqwllXVOTDASNMP3019-84-71 17:38:00 Test Item Value Reference Range Interpretation Comments Eosinophil # (test code 3.6 See_Comment [Au tomated message] The = Eosinophil #) system which generated this result tra nsmitted reference range : <=4.0. The reference r karan was not used to int erpret this result as normal/abnormal . [facility] CampusVqjvneeBCQKEWYXHK8209-25-13 17:38:00 Test Item Value Reference Range Interpretation Comments Basophil % (test code = 0.5 See_Comment [Au tomated message] The Basophil %) system which ge nerated this result tra nsmitted reference range : <=1.0. The reference r karan was not used to int erpret this result as normal/abnormal . [facility] CampusHydcrxnCJIQKVVEBI2264-75-59 17:38:00 Test Item Value Reference Range Interpretation Comments Neutrophil # (test code = Neutrophil #) 4.0 1.5-8.1 [facility] CampusJcxktujBXAXGWTQHT8481-53-63 17:38:00 Test Item Value Reference Range Interpretation Comments Lymphocyte # (test code = Lymphocyte #) 1.7 1.0-5.5 [facility] CampusRkdamzcOTSDUMCEOZ3409-16-44 17:38:00 Test Item Value Reference Range Interpretation Comments Monocyte # (test code = 0.4 See_Comment [Au tomated message] The Monocyte #) system which ge nerated this result tra nsmitted reference range : <=0.8. The reference r karan was not used to int erpret this result as normal/abnormal . [facility] CampusMvdfypnEGTDWSXJJJ0138-56-21 17:38:00 Test Item Value Reference Range Interpretation Comments Eosinophil % (test code 0.2 See_Comment [Au tomated message] The = Eosinophil %) system which generated this result tra nsmitted reference range : <=0.5. The reference r karan was not used to int erpret this result as normal/abnormal . [facility] CampusBdgakhiQLHFVCAEJD6044-31-19 17:38:00 Test Item Value Reference Range Interpretation Comments Results (test code = Reported (02/18/20 12:38 Results) PM) [facility]
--- NOTE | 2022-11-11 13:07 | ER ---
Nurse's Notes [facility] Name: Trudi Villavicencio Age: 47 yrs Sex: Female : 1975 Arrival Date: 11/11/2022 Time: 12:45 Bed IW1 Private MD: Diagnosis: Holter monitor malfunction;Encounter for general adult medical examination without abnormal findings Presentation: 11/11 13:03 Chief complaint: Patient states: pt has Holter monitor in place and the display is not iw recording, was placed by Dr. Tabor. Coronavirus screen: At this time, the client does not indicate any symptoms associated with coronavirus-19. Ebola Screen: Patient negative for fever greater than or equal to 101.5 degrees Fahrenheit, and additional compatible Ebola Virus Disease symptoms Patient denies exposure to infectious person. Patient denies travel to an Ebola-affected area in the 21 days before illness onset. No symptoms or risks identified at this time. Initial Sepsis Screen: Does the patient meet any 2 criteria? No. Patient's initial sepsis screen is negative. Does the patient have a suspected source of infection? No. Patient's initial sepsis screen is negative. Risk Assessment: Do you want to hurt yourself or someone else? Patient reports no desire to harm self or others. Onset of symptoms was November 11, 2022. 13:03 Method Of Arrival: Ambulatory iw 13:03 Acuity: HOWIE 4 iw Historical: - Allergies: 13:04 Aspirin; iw 13:04 Codeine; iw 13:04 Topamax; iw 13:04 tramadol; iw - PMHx: 13:04 gastritis; neuropathy; osteoarthritis; Radiculopathy; iw - PSHx: 13:04 breast reduction; iw - Social history:: Smoking status: . Screenin:04 [facility] ED Fall Risk Assessment (Adult) History of falling in the last 3 months, iw including since admission. Abuse screen: Denies threats or abuse. Denies injuries from another. Nutritional screening: No deficits noted. Tuberculosis screening: No symptoms or risk factors identified. Assessment: 13:04 General: Appears in no apparent distress. Behavior is calm, cooperative. Pain: Denies iw pain. Neuro: Level of Consciousness is awake, alert, obeys commands, Oriented to person, place, time, situation. Cardiovascular: Patient's skin is warm and dry. Respiratory: Respiratory effort is even, unlabored, Respiratory pattern is regular, symmetrical. Derm: Skin is intact, is healthy with good turgor. Musculoskeletal: Range of motion: intact in all extremities. Vital Signs: 13:03 BP 139 / 87; Pulse 66; Resp 16; Temp 98.1; Pulse Ox 100% on R/A; iw ED Course: 12:47 Patient arrived in ED. am2 12:52 Sunil Douglas DO is Attending Physician. ms3 13:04 Triage completed. iw 13:04 Arm band placed on. iw 13:05 Patient has correct armband on for positive identification. iw 13:05 No provider procedures requiring assistance completed. Patient did not have IV access iw during this emergency room visit. 13:06 Valentin Tabor MD is Referral Physician. ms3 Administered Medications: No medications were administered Medication: 13:05 VIS not applicable for this client. iw Outcome: 13:07 Discharge ordered by . ms3 13:12 Patient left the ED. iw Signatures: Kellee Tran RN RN iw Michelle Barr am2 Sunil Douglas DO DO ms3
--- NOTE | 2022-11-11 13:07 | EDPHYS ---
Physician Documentation [facility] Name: Trudi Villavicencio Age: 47 yrs Sex: Female : 1975 Arrival Date: 11/11/2022 Time: 12:45 Bed IW1 Private MD: ED Physician Sunil Douglas HPI: 11/11 13:07 This 47 yrs old Female presents to ER via Ambulatory with complaints of heart monitor ms3 problem. 13:07 47-year-old female with past medical history of gastritis, neuropathy, osteoarthritis, ms3 radiculopathy presents for Holter monitor malfunctioning. Patient denies symptoms at this time.. Historical: - Allergies: 13:04 Aspirin; iw 13:04 Codeine; iw 13:04 Topamax; iw 13:04 tramadol; iw - PMHx: 13:04 gastritis; neuropathy; osteoarthritis; Radiculopathy; iw - PSHx: 13:04 breast reduction; iw - Social history:: Smoking status: . ROS: 13:07 Constitutional: Negative for fever, and chills. ENT: Negative for injury, pain, and ms3 discharge, Neck: Negative for injury, pain, and swelling, Cardiovascular: Negative for chest pain, and palpitations. Respiratory: Negative for shortness of breath, cough, wheezing, and pleuritic chest pain, Abdomen/GI: Negative for abdominal pain, nausea, vomiting, diarrhea, and constipation, MS/Extremity: Negative for injury and deformity, Skin: Negative for injury, rash, and discoloration, Neuro: Negative for headache, weakness, numbness, tingling. 13:07 All other systems are negative. Exam: 13:07 Constitutional: This is a well developed, well nourished patient who is awake, alert, ms3 and in no acute distress. Head/Face: Normocephalic, atraumatic. Neck: Trachea midline, no cervical lymphadenopathy. Supple, full range of motion without nuchal rigidity, or vertebral point tenderness. No Meningismus. Chest/axilla: Normal chest wall appearance and motion. Nontender with no deformity. Cardiovascular: Regular rate and rhythm with a normal S1 and S2. No gallops, murmurs, or rubs. Normal PMI, no JVD. No pulse deficits. Respiratory: Lungs have equal breath sounds bilaterally, clear to auscultation and percussion. No rales, rhonchi or wheezes noted. No increased work of breathing, no retractions or nasal flaring. Abdomen/GI: Soft, non-tender, with normal bowel sounds. No distension or tympany. No guarding or rebound. No evidence of tenderness throughout. Skin: Warm, dry with normal turgor. Normal color with no rashes, no lesions, and no evidence of cellulitis. MS/ Extremity: Pulses equal, no cyanosis. Neurovascular intact. Full, normal range of motion. Neuro: Awake and alert, GCS 15, oriented to person, place, time, and situation. Cranial nerves II-XII grossly intact. Motor strength 5/5 in all extremities. Sensory grossly intact. Cerebellar exam normal. Normal gait. Vital Signs: 13:03 BP 139 / 87; Pulse 66; Resp 16; Temp 98.1; Pulse Ox 100% on R/A; iw MDM: 13:05 Patient medically screened. ms3 13:07 Differential Diagnosis Holter monitor malfunction versus arrhythmia. Data reviewed: ms3 vital signs, nurses notes, and as a result, I will discharge patient. Counseling: I had a detailed discussion with the patient and/or guardian regarding: the historical points, exam findings, and any diagnostic results supporting the discharge/admit diagnosis, the need for outpatient follow up, to return to the emergency department if symptoms worsen or persist or if there are any questions or concerns that arise at home. Administered Medications: No medications were administered Disposition Summary: 11/11/22 13:07 Discharge Ordered Location: Home ms3 Condition: Stable ms3 Diagnosis - Holter monitor malfunction ms3 - Encounter for general adult medical examination without abnormal findings ms3 Followup: ms3 - With: Valentin Tabor MD - When: 2 - 3 days - Reason: Recheck today's complaints, Continuance of care Forms: - Medication Reconciliation Form ms3 - Thank You Letter ms3 - Antibiotic Education ms3 - Prescription Opioid Use ms3 Signatures: Kellee Tran, RN RN iw Sunil Douglas DO DO ms3
[2022-11-11 13:17] VITALS: BP 139/87; TEMP 98.1; O2SAT 100
== END 2022-11-11 13:12 | disposition home or self-care (01) ==
LOC: ER 12:45
DX: T82.190A Other mechanical complication of cardiac electrode, initial encounter (principal)
CPT/HCPCS: 99281

== ENCOUNTER 2022-12-05 11:50 | Emergency (ER) | payer SELFPAY ==
--- OUTSIDE RECORDS SUMMARY | 2022-12-05 11:59 | XMS REPORT | Continuity of Care Document ---
:1975 Author Organization [facility] t Address [address] [place] [address] Care Team Providers Name Role Phone Asked, No Pcp Primary Care Physician Unavailable Danie Garcia Attending Clinician Unavailable ESTER PERES Attending Clinician Unavailable ALFONZO ALARCON Attending Clinician Unavailable Doctor Unassigned, [facility] Attending Clinician Unavailable HAMZAH CAMPBELL Attending Clinician Unavailable CAT PRITCHETT Attending Clinician Unavailable Cat Pritchett DO Attending Clinician Marina PERALTA, Tony Hdz Attending Clinician Alfonzo Alarcon MD Attending Clinician [phone] Malcom Espinal Attending Clinician ROYCE PRUETT Attending Clinician Unavailable Ester Peres MD Attending Clinician MG WOOD Attending Clinician Unavailable DEMETRIA JAFFE Attending Clinician Unavailable THANIA OLSON Attending Clinician Unavailable EMELYN PHILLIPS Attending Clinician Unavailable OSCAR LUGO Attending Clinician Unavailable BROOKE FAUST Attending Clinician Unavailable RAJI JEAN BATPISTE, LARA Attending Clinician Unavailable Raji Jean Baptiste Attending Clinician Palomo Cervantes Attending Clinician ESTER PERES Admitting Clinician Unavailable Raji Jean Baptiste Admitting Clinician Payers Payer Name Policy Type Policy Number Effective Date Expiration Date S ource [place] [id number] 2020 - OUT OF STATE 0 00:00:00 BCBS 2 [id number] 2021 0 00:00:00 Blue Cross 6 [id number] 2020 Common Spiri t Blue Shield of 00:00:00 - [facility] Problems Condition Condition Condition Status [...] f medial medial 00:00: g of this [place] meniscus meniscus 00 note Medica l of left of left might be Branch knee as knee as different current current from the injury, injury, original. 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 1- 04:01:02 l (disorder) (disorder) 00:00: He rmann Active 00 07/16/1976 Problem 02/28/2020 reports reaction from [facility] Ankle pain Ankle Problem Active 2022-07-24 M emoria (finding) pain 12:01:02 l (finding) [place] Active Problem 07/24/2022 [facility] Neuro,[facility] ,[facility] Asthma Asthma Problem Active 2022-07-24 Lev trupti (disorder) (disorder) 12:01:02 l Active [place]a Problem 07/24/2022 [facility] Gastritis Gastritis Problem Active 2022-07-24 Memoria (disorder) (disorder) 12:01:02 l Active [place] Problem 07/24/2022 [facility] Hemangioma Problem Active 2022-07-24 M emoria of Hemangioma 12:01:02 l intracrani of Burak n al intracrani structure al (disorder) structure (disorder) Active Problem 07/24/2022 [facility] Hypertensi Hypertens Problem Active 2022-07-24 Memoria ve shireen 12:01:02 l disorder, disorder, Herm mckenna systemic systemic arterial arterial (disorder) (disorder) Active Problem 07/24/2022 [facility] Hypothyroi Problem Active 2022-07-24 M emoria dism Hypothyroi 12:01:02 l (disorder) dism Burak n (disorder) Active Problem 07/24/2022 [facility] Lumbar Lumbar Problem Active 2022-07-24 [facility] radiculopa radiculopa 12:01:02 l thy thy Luca (disorder) (disorder) Active Problem 07/24/2022 [facility] Migraine Migraine Problem Active 2022-07-24 Memoria (disorder) (disorder) 12:01:02 l Active [place] Problem 07/24/2022 [facility] Morbid Morbid Problem Active 2022-07-24 [facility] obesity obesity 12:01:02 l (disorder) (disorder) Vladimir rmann Active Problem 07/24/2022 [facility] Paresthesi Paresthes Problem Active 2022-07-24 Memoria a ia 12:01:02 l (finding) (finding) Herm mckenna Active Problem 07/24/2022 [facility] Peripheral Periphera Problem Active 2022-07-24 Memoria nerve l nerve 12:01:02 l disease disease [place] (disorder) (disorder) Active Problem 07/24/2022 [facility] 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 12:01:02 l (disorder) (disorder) Vladimir rmann Active Problem 07/24/2022 [facility] Acid Acid Problem Active 2020-02-28 Memor ia [...] emoria (disorder) Neuropathy 04:01:02 l (disorder) Burak n Active Problem 02/28/2020 [facility] No known No known Disease Metho di active active st problems problems Hospit a l [id number] Multiple Problem Commo n joint pain Spirit [facility] [id number] Neuropathi Problem Co mmon c pain Spirit [facility] [id number] Fibromyalg Problem Co mmon ia Spirit affecting - [facility]I multiple [facility] [id number] 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 back Medical pain Center laterality , unspecifie d chronicity [id number] Anxiety Problem Common Spirit [facility] Acute Acute Problem Common bronchitis bronchitis Sp elana , - CHI unspecifie [facility] Essential Essential Problem Com mon hypertensi hypertensi Sp elana on on - [facility] Acute Acute Problem Common upper upper Spirit respirator respirator - CHI y y St infection infection, [place] es unspecifie Medica l d Center [id number] History of Problem Co mmon hiatal Spirit hernia - [facility] Asthma Uncomplica Problem Commo n without margaret Spirit status asthma, - CHI asthmaticu unspecifie St s d asthma [facility] severity, Medical unspecifie Center d whether persistent Seasonal Seasonal Problem Commo n allergic allergic Spirit rhinitis rhinitis, - CHI unspecifie St d [facility] [id number] Depression Problem Co mmon with Spirit anxiety [facility] [id number] Suicidal Problem Common ideation [facility] [id number] Non-intrac Problem Com mon table Spirit vomiting - CHI with [facility] nausea, [facility]ie Medica l d vomiting Center type [id number] Epigastric Problem Com mon pain Spirit - [facility] [id number] Endometria Problem Co mmon l cancer Spirit - [facility] [id number] Slurred Problem Commo n speech [facility] - [facility]I [facility] [id number] Moderate Problem Comm on asthma Spirit without - CHI complicati [facility] unspecifie Medica l d whether Center persistent [id number] Noncomplia Problem Co mmon nce with Spirit medication - CHI regimen [facility] [id number] Gastroesop Problem Co mmon hageal Spirit reflux - CHI disease [facility] esophagiti [facility] [id number] Chronic Problem Commo n pruritus Spirit - [facility] Disc Disc Disease Active Univers disease, disease, ity of degenerati degenerati [place] ve, lumbar ve, lumbar Me dical or or Branch lumbosacra lumbosacra l l Cervical Cervical Disease Active Unive rs herniated herniated ity of disc disc [facility] Lumbar Lumbar Disease Active Univers herniated herniated ity of disc disc [facility] Cervical Cervical Disease Active Unive rs herniated herniated ity of disc disc [facility] Osteochond Osteochond Problem Active U [...] Active U T pain pain Physici ans History of Past Illness Condition Condition Condition [...] Other Me thodi Aspirin ty to Comments) 7 reaction( st adverse 00:00: s): [facility] [...] yes Syndrome Yung Syndrome Yung Syndrome Codeine Codeine Active Unknown Common [facility] topirama topirama Active Unknown Commo n te te [facility] aspirin aspirin Active Unknown [facility] codeine Allergy Active [facility] to drug Physici (finding ans ) codeine codeine Active Memoria l [place] aspirin aspirin Active Memoria l [place] Topamax Topamax Active Memoria l [place] traMADol traMADol Active Memori a l [place] Family History Family Member Diagnosis Comments Start Date Stop Date Source Maternal grandmother Diabetes [facility] Maternal grandmother Stroke [facility] Natural mother Heart attack [facility] Natural mother Heart disease [facility] Natural father Diabetes [facility] Natural father Heart attack [facility] Maternal aunt Cancer [facility] Social History Social Habit Start Date Stop Date Quantity Comments Source History of Tobacco Common Spirit - Use [facility] Gender identity [facility] Sexual orientation Method ist Hospital Exposure to Not sure Rosi armendariz SARS-CoV-2 (event) Tobacco use and 2021-05-19 2021-05-19 Smokeless [facility] exposure 00:00:00 00:00:00 tobacco non-user Hospital Alcohol intake 2021-05-19 2021-05-19 Lifetime [facility] 00:00:00 00:00:00 non-drinker Hospital (finding) History of Social 2021-05-19 2021-05-[address] function 00:00:00 00:00:00 Hospital Sex Assigned At [birth year] [facility] 00:00:00 00:00:00 Hospital Smoking Status Start Date Stop Date Source Tobacco smoking status [facility] Medications Ordered Filled Start Stop Current Ordering [...] 2020-07 Yes nitrofuran Methodi oin, 07-19 toin macrocrysta 10:54: monohydrat Hospita l-monohydra 00 e/macrocry [...] capsule mupirocin 2020-07 Yes Apply Methodi (BACTROBAN) [address] 2 % 10:54: Hospita ointment [...] 59 (PF) 180 l Quad mcg (45 0028-0299, mcg x PF,) 180 4)/0.5 mL mcg [...] 59 (PF) 180 l Quad mcg (45 5969-1023, mcg x PF,) 180 4)/0.5 mL mcg [...] mine-pseudo 1-04 amine-pseu st eph-DM 10:53: doephedrin [facility] 58 e-DM 2 l mg/5 mL mg-30 syrup mg-10 mg/5 mL oral syrup budesonide 2020-07 Yes 1mg Inhale 1 Met hodi (PULMICORT) 1-[address] 1 mg/2 mL 10:53: Hospita nebulizer 58 l solution bromphenira 2020-07 Yes bromphenir Methodi mine-pseudo 1-04 amine-pseu st eph-DM 10:53: doephedrin [facility] 58 e-DM 2 l mg/5 mL mg-30 syrup mg-10 mg/5 mL oral syrup budesonide 2020-07 Yes 1mg Inhale 1 Met hodi (PULMICORT) 1-[address] 1 mg/2 mL 10:53: Hospita nebulizer 58 l solution bromphenira 2020-07 Yes bromphenir Methodi mine-pseudo 1-04 amine-pseu st eph-DM 10:53: doephedrin [facility] 58 e-DM 2 l mg/5 mL mg-30 syrup mg-10 mg/5 mL oral syrup budesonide 2020-07 Yes 1mg Inhale 1 Met hodi (PULMICORT) 1-[address] 1 mg/2 mL 10:53: Hospita nebulizer 58 l solution bromphenira 2020-07 Yes bromphenir Methodi mine-pseudo 1-04 amine-pseu st eph-DM 10:53: [facility] e[facility] 2 l mg/5 mL mg-30 [...] 32 on daily Suspension Cyclobenzap 2020-07 Yes [id number] 10mg Take 1 Rosi rine HCl 10 0-14 tablet (10 Se ybold MG oral 00:00: mg total) Tablet 00 by mouth at bedtime as needed medroxyPROG 2020-07 Yes Method i ESTERone 0-04 [...] 75 MG 00:00: Hospita tablet 00 l ubrogepant 2020-0 Yes 100 mg = 1 M emoria 100 MG Oral 9-10 tab, PO, l Tablet 21:15: PRN, PRN Luca [Ubrelvy] 00 Other -See Comment, X 30 day, # 10 tab, 1 Refill(s), Pharmacy: [facility], For Migraine. May repeat dose after 2 hours. Max dose 200 mg/ 24 hours, 152.4, cm, 03/16/21 8:31:00 CDT, Height, 112.727, kg, 03/16/21 8... ubrogepant 2020-0 Yes 100 mg = 1 M emoria 100 MG Oral 9-10 tab, PO, l Tablet 21:15: PRN, PRN [place] [Ubrelvy] 00 Other -See Comment, X 30 day, # 10 tab, 1 Refill(s), Pharmacy: [facility], For Migraine. May repeat dose after 2 hours. Max dose 200 mg/ 24 hours, 152.4, cm, 03/16/21 8:31:00 CDT, Height, 112.727, kg, 03/16/21 8... ubrogepant 2020-0 Yes 100 mg = 1 M emoria 100 MG Oral 9-10 tab, PO, l Tablet 21:15: PRN, PRN [place] [Ubrelvy] 00 Other -See Comment, X 30 day, # 10 tab, 1 Refill(s), Pharmacy: [facility], For Migraine. May repeat dose after 2 hours. Max dose 200 mg/ 24 hours, 152.4, cm, 03/16/21 8:31:00 CDT, Height, 112.727, kg, 03/16/21 8... ubrogepant 2021-0 Yes 100 mg = 1 M emoria 100 MG Oral 9-10 tab, PO, l Tablet 21:15: PRN, PRN [place] [Ubrelvy] 00 Other -See Comment, X 30 day, # 10 tab, 1 Refill(s), Pharmacy: [facility], For Migraine. May repeat dose after 2 hours. Max dose 200 mg/ 24 hours, 152.4, cm, 03/16/21 8:31:00 CDT, Height, 112.727, kg, 03/16/21 8... ubrogepant 2021-0 Yes 100 mg = 1 M emoria 100 MG Oral 9-10 tab, PO, l Tablet 21:15: PRN, PRN [place] [Ubrelvy] 00 Other -See Comment, X 30 day, # 10 tab, 1 Refill(s), Pharmacy: [facility], For Migraine. May repeat dose after 2 hours. Max dose 200 mg/ 24 hours, 152.4, cm, 03/16/21 8:31:00 CDT, Height, 112.727, kg, 03/16/21 8... ubrogepant 2021-0 Yes 100 mg = 1 M ethodi (Ubrelvy) 9-10 tab, PO, st 100 mg 00:00: PRN, PRN Hospita tablet 00 Other -See l Comment, X 30 day, # 10 tab, 1 Refill(s), Pharmacy: [facility], For Migraine. May repeat dose after 2 hours. Max dose 200 mg/ 24 hours, 152.4, cm, 03/16/21 8:31:00 CDT, Height, 112.727, kg, 03/16/21 8... ubrogepant 2021-0 Yes 100 mg = 1 M ethodi (Ubrelvy) 9-10 tab, PO, st 100 mg 00:00: PRN, PRN Hospita tablet 00 Other -See l Comment, X 30 day, # 10 tab, 1 Refill(s), Pharmacy: [facility], For Migraine. May repeat dose after 2 hours. Max dose 200 mg/ 24 hours, 152.4, cm, 03/16/21 8:31:00 CDT, Height, 112.727, kg, 03/16/21 8... ubrogepant 2021-0 Yes 100 mg = 1 M ethodi (Ubrelvy) 9-10 tab, PO, st 100 mg 00:00: PRN, PRN Hospita tablet 00 Other -See l Comment, X 30 day, # 10 tab, 1 Refill(s), Pharmacy: [facility], For Migraine. May repeat dose after 2 hours. Max dose 200 mg/ 24 hours, 152.4, cm, 03/16/21 8:31:00 CDT, Height, 112.727, kg, 03/16/21 8... ubrogepant 2021-0 Yes 100 mg = 1 M ethodi (Ubrelvy) 9-10 tab, PO, st 100 mg 00:00: PRN, PRN Hospita tablet 00 Other -See l Comment, X 30 day, # 10 tab, 1 Refill(s), Pharmacy: [facility], For Migraine. May repeat dose after 2 hours. Max dose 200 mg/ 24 hours, 152.4, cm, 03/16/21 8:31:00 CDT, Height, 112.727, kg, 03/16/21 8... ubrogepant 2021-0 Yes 100 mg = 1 M ethodi (Ubrelvy) 9-10 tab, PO, st 100 mg 00:00: PRN, PRN Hospita tablet 00 Other -See l Comment, X 30 day, # 10 tab, 1 Refill(s), Pharmacy: [facility], For Migraine. May repeat dose after 2 hours. Max dose 200 mg/ 24 hours, 152.4, cm, 03/16/21 8:31:00 CDT, Height, 112.727, kg, 03/16/21 8... ubrogepant 2021-0 Yes 100 mg = 1 M ethodi (Ubrelvy) 9-10 tab, PO, st 100 mg 00:00: PRN, PRN Hospita tablet 00 Other -See l Comment, X 30 day, # 10 tab, 1 Refill(s), Pharmacy: [facility], For Migraine. May repeat dose after 2 hours. Max dose 200 mg/ 24 hours, 152.4, cm, 03/16/21 8:31:00 CDT, Height, 112.727, kg, 03/16/21 8... ubrogepant 1-0 Yes 100 mg = 1 M ethodi (Ubrelvy) 9-10 tab, PO, st 100 mg 00:00: PRN, PRN Hospita tablet 00 Other -See l Comment, X 30 day, # 10 tab, 1 Refill(s), Pharmacy: [facility], For Migraine. May repeat dose after 2 hours. Max dose 200 mg/ 24 hours, 152.4, cm, 03/16/21 8:31:00 CDT, Height, 112.727, kg, 03/16/21 8... ubrogepant 2021-0 Yes 100 mg = 1 M ethodi (Ubrelvy) 9-10 tab, PO, st 100 mg 00:00: PRN, PRN Hospita tablet 00 Other -See l Comment, X 30 day, # 10 tab, 1 Refill(s), Pharmacy: [facility], For Migraine. May repeat dose after 2 hours. Max dose 200 mg/ 24 hours, 152.4, cm, 03/16/21 8:31:00 CDT, Height, 112.727, kg, 03/16/21 8... ubrogepant 1-0 No 100 mg = 1 M emoria 100 MG Oral -03 tab, PO, l Tablet 16:30: PRN, PRN Luca [Ubrelvy] 00 Other -See Comment, X 30 day, # 10 tab, 1 Refill(s), Pharmacy: [facility], For Migraine. May repeat dose after 2 hours. Max dose 200 mg/ 24 hours, 152.4, cm, 03/16/21 8:31:00 CDT, Height, 112.727, kg, 03/16/21 8:... ubrogepant 1-0 No 100 mg = 1 M emoria 100 MG Oral 9-03 tab, PO, l Tablet 16:30: PRN, PRN [place] [Ubrelvy] 00 Other -See Comment, X 30 day, # 10 tab, 1 Refill(s), Pharmacy: [facility], For Migraine. May repeat dose after 2 hours. Max dose 200 mg/ 24 hours, 152.4, cm, 03/16/21 8:31:00 CDT, Height, 112.727, kg, 03/16/21 8:... ubrogepant 0 No 100 mg = 1 M emoria 100 MG Oral 9-03 tab, PO, l Tablet 16:30: PRN, PRN [place] [Ubrelvy] 00 Other -See Comment, X 30 day, # 10 tab, 1 Refill(s), Pharmacy: [facility], For Migraine. May repeat dose after 2 hours. Max dose 200 mg/ 24 hours, 152.4, cm, 03/16/21 8:31:00 CDT, Height, 112.727, kg, 03/16/21 8:... ubrogepant 0 No 100 mg = 1 M emoria 100 MG Oral 9-03 tab, PO, l Tablet 16:30: PRN, PRN [place]a [Ubrelvy] 00 Other -See Comment, X 30 day, # 10 tab, 1 Refill(s), Pharmacy: [facility], For Migraine. May repeat dose after 2 hours. Max dose 200 mg/ 24 hours, 152.4, cm, 03/16/21 8:31:00 CDT, Height, 112.727, kg, 03/16/21 8:... ubrogepant 0 No 100 mg = 1 M emoria 100 MG Oral 9-03 tab, PO, l Tablet 16:30: PRN, PRN Luca [Ubrelvy] 00 Other -See Comment, X 30 day, # 10 tab, 1 Refill(s), Pharmacy: [facility], For Migraine. May repeat dose after 2 hours. Max dose 200 mg/ 24 hours, 152.4, cm, 03/16/21 8:31:00 CDT, Height, 112.727, kg, 03/16/21 8:... amitriptyli 2020- Yes = 1 tab, Me moria ne 75 mg 03-16 PO, l oral tablet 23:57: Bedtime, # [place] 00 30 ea, 5 Refill(s), Pharmacy: [facility], 152.4, cm, 03/16/21 8:31:00 CDT, Height, 112.727, kg, 03/16/21 8:31:00 CDT, Weight amitriptyli 2020-0 Yes = 1 tab, Me moria ne 75 mg 9-01 PO, l oral tablet 23:57: Bedtime, # [place] 00 30 ea, 5 Refill(s), Pharmacy: [facility], 152.4, cm, 03/16/21 8:31:00 CDT, Height, 112.727, kg, 03/16/21 8:31:00 CDT, Weight amitriptyli 2020-0 Yes = 1 tab, Me moria ne 75 mg 9-01 PO, l oral tablet 23:57: Bedtime, # [place] 00 30 ea, 5 Refill(s), Pharmacy: [facility], 152.4, cm, 03/16/21 8:31:00 CDT, Height, 112.727, kg, 03/16/21 8:31:00 CDT, Weight amitriptyli 2020-0 Yes = 1 tab, Me moria ne 75 mg 9-01 PO, l oral tablet 23:57: Bedtime, # [place] 00 30 ea, 5 Refill(s), Pharmacy: [facility], 152.4, cm, 03/16/21 8:31:00 CDT, Height, 112.727, kg, 03/16/21 8:31:00 CDT, Weight amitriptyli 2020-0 Yes = 1 tab, Me moria ne 75 mg 9-01 PO, l oral tablet 23:57: Bedtime, # [place] 00 30 ea, 5 Refill(s), Pharmacy: [facility], 152.4, cm, 03/16/21 8:31:00 CDT, Height, 112.727, kg, 03/16/21 8:31:00 CDT, Weight Amitriptyli 2020-0 Yes amitriptyl Rosi ne HCl 75 9-01 ine 75 mg Seybo ld MG oral 00:00: tablet Tablet 00 ubrogepant 1-0 No 100 mg = 1 M emoria 100 MG Oral 8-23 tab, PO, l Tablet 21:26: PRN, PRN [place] [Ubrelvy] 00 Other -See Comment, X 30 day, # 10 tab, 1 Refill(s), Pharmacy: [facility], For Migraine. May repeat dose after 2 hours. Max dose 200 mg/ 24 hours, 152.4, cm, 02/01/21 13:49:00 CDT, Height, 116.818, kg, 02/01/21 1... ubrogepant 2021-0 No 100 mg = 1 M emoria 100 MG Oral 8-23 tab, PO, l Tablet 21:26: PRN, PRN [place] [Ubrelvy] 00 Other -See Comment, X 30 day, # 10 tab, 1 Refill(s), Pharmacy: [facility], For Migraine. May repeat dose after 2 hours. Max dose 200 mg/ 24 hours, 152.4, cm, 02/01/21 13:49:00 CDT, Height, 116.818, kg, 02/01/21 1... ubrogepant 1-0 No 100 mg = 1 M emoria 100 MG Oral 8-23 tab, PO, l Tablet 21:26: PRN, PRN [place] [Ubrelvy] 00 Other -See Comment, X 30 day, # 10 tab, 1 Refill(s), Pharmacy: [facility], For Migraine. May repeat dose after 2 hours. Max dose 200 mg/ 24 hours, 152.4, cm, 02/01/21 13:49:00 CDT, Height, 116.818, kg, 02/01/21 1... ubrogepant 2021-0 No 100 mg = 1 M emoria 100 MG Oral 8-23 tab, PO, l Tablet 21:26: PRN, PRN Luca [Ubrelvy] 00 Other -See Comment, X 30 day, # 10 tab, 1 Refill(s), Pharmacy: [facility], For Migraine. May repeat dose after 2 hours. Max dose 200 mg/ 24 hours, 152.4, cm, 02/01/21 13:49:00 CDT, Height, 116.818, kg, 02/01/21 1... ubrogepant 0 No 100 mg = 1 M emoria 100 MG Oral 8-23 tab, PO, l Tablet 21:26: PRN, PRN Luca [Ubrelvy] 00 Other -See Comment, X 30 day, # 10 tab, 1 Refill(s), Pharmacy: [facility], For Migraine. May repeat dose after 2 hours. Max dose 200 mg/ 24 hours, 152.4, cm, 02/01/21 13:49:00 CDT, Height, 116.818, kg, 02/01/21 1... Polytrim Polytrim 2020- No 1{drop_ QID Polytrim 32004-5.1 05451-4.1 8 08-16 into_af 64890-3.1 UNIT/ML UNIT/ML 00:00: 00:00 fected_ UNIT/ML 00 [...] Cyclobenza rine HCl 10 rine HCl 10 8-04 09-03 t_at_be dex HCl MG MG 00:00: 00:00 [...] MG 00 :00 s_neede d} Ibuprofen Ibuprofen 2020-2020- No BID Ibuprofen 600 MG 600 MG 02-16 600 MG 00:00: 00:00 00 :00 Ibuprofen Ibuprofen 2020-2020- No BID Ibuprofen 600 MG 600 MG 02-16 600 MG 00:00: 00:00 00 :00 methylPREDN 2020-0 Yes [id number] 84mg Take 21 Univers ISolone 7-30 tablets by ity of (MEDROL, 00:00: mouth [place] GENARO,) 4 mg 00 SEE-INSTRU Med ical tablets CTIONS. Branch follow package directions methylPREDN 2020-0 Yes [id number] 84mg Take 21 Univers ISolone 7-30 tablets by ity of (MEDROL, 00:00: mouth [place] GENARO,) 4 mg 00 SEE-INSTRU Med ical tablets CTIONS. Branch follow package directions methylPREDN 2020-0 Yes [id number] 84mg Take 21 Univers ISolone 7-30 tablets by ity of (MEDROL, 00:00: mouth [place] GENARO,) 4 mg 00 SEE-INSTRU Med ical tablets CTIONS. Branch follow package directions methylPREDN 2020-0 Yes [id number] 84mg Take 21 Univers ISolone 7-30 tablets [...] MCG 00:00: 25 MCG 00 Levothyroxi Levothyroxi 0 No QD Levothyrox ne Sodium ne Sodium 6-08 ine Sodium 25 MCG 25 MCG 00:00: 25 MCG 00 medroxyPROG 2020-0 Yes every 24 Ke lsey ESTERone 5-13 hours Seybold Acetate 10 00:00: MG oral 00 Tablet medroxyPROG 2020-0 Yes [id number] 20mg Take 2 Univers ESTERone 5-13 tablets by ity o f (PROVERA) 00:00: mouth [place] 10 mg 00 daily. Medical tablet Branch medroxyPROG 2020-0 Yes [id number] 20mg Take 2 Univers ESTERone 5-13 tablets by ity o f (PROVERA) 00:00: mouth [place] 10 mg 00 daily. Medical tablet Branch medroxyPROG 2020-0 Yes [id number] 20mg Take 2 Univers ESTERone 5-13 tablets by ity o f (PROVERA) 00:00: mouth [place] 10 mg 00 daily. Medical tablet Branch medroxyPROG 2020-0 Yes [id number] 20mg Take 2 Univers ESTERone 5-13 tablets by ity o f (PROVERA) 00:00: mouth [place] 10 mg 00 daily. Medical tablet Branch Maxalt 5 mg 2020-0 Yes 5 mg = 1 Me moria oral tablet 3-12 tab, PO, l 20:23: ONCE, PRN Luca 00 for migraine headache, # 9 tab, 1 Refill(s), Pharmacy: [facility], 160.02, cm, 09/24/20 13:34:00 HARPOONER, Height, 113.636, kg, 09/24/20 13:34:00 HARPOONER, Weight rizatriptan Yes 5 mg = 1 Me moria 5 MG Oral 3-12 tab, PO, l Tablet 20:23: ONCE, PRN Burak n [Maxalt] 00 for migraine headache, # 9 tab, 1 Refill(s), Pharmacy: [facility], 160.02, cm, 09/24/20 13:34:00 HARPOONER, Height, 113.636, kg, 09/24/20 13:34:00 HARPOONER, Weight rizatriptan 2021-0 Yes 5 mg = 1 Me moria 5 MG Oral 3-12 tab, PO, l Tablet 20:23: ONCE, PRN Burak n [Maxalt] 00 for migraine headache, # 9 tab, 1 Refill(s), Pharmacy: [facility], 160.02, cm, 09/24/20 13:34:00 HARPOONER, Height, 113.636, kg, 09/24/20 13:34:00 HARPOONER, Weight rizatriptan 2021-0 Yes 5 mg = 1 Me moria 5 MG Oral 3-12 tab, PO, l Tablet 20:23: ONCE, PRN Burak n [Maxalt] 00 for migraine headache, # 9 tab, 1 Refill(s), Pharmacy: [facility], 160.02, cm, 09/24/20 13:34:00 HARPOONER, Height, 113.636, kg, 09/24/20 13:34:00 HARPOONER, Weight Maxalt 5 mg 2021-0 Yes 5 mg = 1 Me moria oral tablet 3-12 tab, PO, l 20:23: ONCE, PRN Luca 00 for migraine headache, # 9 tab, 1 Refill(s), Pharmacy: [facility], 160.02, cm, 09/24/20 13:34:00 HARPOONER, Height, 113.636, kg, 09/24/20 13:34:00 HARPOONER, Weight rizatriptan 2021-0 Yes 5 mg = 1 Me moria 5 MG Oral 3-12 tab, PO, l Tablet 20:23: ONCE, PRN Burak n [Maxalt] 00 for migraine headache, # 9 tab, 1 Refill(s), Pharmacy: [facility], 160.02, cm, 09/24/20 13:34:00 HARPOONER, Height, 113.636, kg, 09/24/20 13:34:00 HARPOONER, Weight Maxalt 5 mg 2021-0 Yes 5 mg = 1 Me moria oral tablet 3-12 tab, PO, l 20:23: ONCE, PRN Luca 00 for migraine headache, # 9 tab, 1 Refill(s), Pharmacy: [facility], 160.02, cm, 09/24/20 13:34:00 HARPOONER, Height, 113.636, kg, 09/24/20 13:34:00 HARPOONER, Weight rizatriptan 1-0 Yes 5 mg = 1 Me moria 5 MG Oral 3-12 tab, PO, l Tablet 20:23: ONCE, PRN Burak n [Maxalt] 00 for migraine headache, # 9 tab, 1 Refill(s), Pharmacy: [facility], 160.02, cm, 09/24/20 13:34:00 HARPOONER, Height, 113.636, kg, 09/24/20 13:34:00 HARPOONER, Weight Rizatriptan 2020-0 Yes rizatripta Rosi Benzoate 5 3-12 n 5 mg Seybold MG oral 00:00: tablet Tablet 00 TAKE 1 TABLET BY MOUTH ONCE DAILY NEEDED FOR HEADACHE MIGRAINE rizatriptan 2020-0 Yes 5 mg = 1 Me moria 5 MG Oral 9-15 tab, PO, l Tablet 22:44: ONCE, PRN Burak n [Maxalt] 00 for migraine headache, # 9 tab, 1 Refill(s), Pharmacy: [facility], 152.4, cm, 01/15/20 15:04:00 CDT, Height, 115.455, kg, 01/15/20 15:04:00 CDT, Weight rizatriptan 2020-0 Yes 5 mg = 1 Me moria 5 MG Oral 9-15 tab, PO, l Tablet 22:44: ONCE, PRN Burak n [Maxalt] 00 for migraine headache, # 9 tab, 1 Refill(s), Pharmacy: [facility], 152.4, cm, 01/15/20 15:04:00 CDT, Height, 115.455, kg, 01/15/20 15:04:00 CDT, Weight rizatriptan 2020-0 Yes 5 mg = 1 Me moria 5 MG Oral 9-15 tab, PO, l Tablet 22:44: ONCE, PRN Burak n [Maxalt] 00 for migraine headache, # 9 tab, 1 Refill(s), Pharmacy: [facility], 152.4, cm, 01/15/20 15:04:00 CDT, Height, 115.455, kg, 01/15/20 15:04:00 CDT, Weight rizatriptan 2020-0 Yes 5 mg = 1 Me moria 5 MG Oral 9-15 tab, PO, l Tablet 22:44: ONCE, PRN Burak n [Maxalt] 00 for migraine headache, # 9 tab, 1 Refill(s), Pharmacy: [facility], 152.4, cm, 01/15/20 15:04:00 CDT, Height, 115.455, kg, 01/15/20 15:04:00 CDT, Weight rizatriptan 2020-0 Yes 5 mg = 1 Me moria 5 MG Oral 9-15 tab, PO, l Tablet 22:44: ONCE, PRN Burak n [Maxalt] 00 for migraine headache, # 9 tab, 1 Refill(s), Pharmacy: [facility], 152.4, cm, 01/15/20 15:04:00 CDT, Height, 115.455, kg, 01/15/20 15:04:00 CDT, Weight Mis 2020-0 No 900 mL, Memoria Medication 8-13 Soln-IV, l 15:27: IV, Once, [place]a first dose 02/26/20 10:27:00 CDT, stop date 02/26/20 10:27:00 CD[place] [facility] [place] 900 mL, Memoria Medication 8-13 Soln-IV, l 15:27: IV, Once, [place] first dose 02/26/20 10:27:00 CDT, stop date 02/26/20 10:27:00 CDT Misc 2020-0 No 900 mL, Memoria Medication 8-13 Soln-IV, l 15:27: IV, Once, [place] first dose 02/26/20 10:27:00 CDT, stop date 02/26/20 10:27:00 CDT Mis 2020-0 No 900 mL, Memoria Medication 8-13 [...] ia 8-13 0.5 mL, l 15:20: Injection, [place] 00 IV Push, q10min PRN for pain severe (7-10), first dose 02/26/20 10:20:00 CDT Demerol HCl 2020-0 No 12.5 mg = M emoria 8-13 0.5 mL, l 15:20: Injection, [place] 00 IV Push, Once PRN for shivers, first dose 02/26/20 10:20:00 CDT Albuterol 2020-0 No 2.5 mg = 3 Me moria 0.83 MG/ML 8-13 mL, Soln, l Inhalant 15:20: NEB, Once Herm mckenna 00 PRN for wheezing, first dose 02/26/20 10:20:00 CDT Ondansetron 2020-0 No 4 mg = 2 Me moria 8-13 mL, l 15:20: Injection, [place] 00 IV Push, q15min PRN for nausea, order duration: 2 doses, first dose 02/26/20 10:20:00 CDT, stop date Limited # of times Promethazin 2020-0 No 12.5 mg = M emoria e 8-13 0.5 mL, l 15:20: Injection, [place] 00 IM, Once PRN for vomiting, first dose 02/26/20 10:20:00 CDT LR 1,000 mL 2020-0 No 1,000 mL, M emoria 8-13 IV, 75 l 15:20: mL/hr, [place] 00 start date 02/26/20 10:20:00 CDT, 2.14, m2 [...] l Inhalant 15:20: NEB, Once Herm mckenna 00 PRN for wheezing, first dose 02/26/20 [...] Saline Lock 2020-0 No 10 mL, Lev turpti Flush 8-13 Soln, IV l 15:20: Push, [...] Inhalant 15:20: NEB, Once Herm mckenna Solution PRN for wheezing, first dose 02/26/20 10:20:00 [...] emoria 8-13 0.5 mL, l 15:20: Injection, [place] IV Push, Once PRN for shivers, first dose 02/26/20 10:20:00 CDT Albuterol 2020-0 No 2.5 mg = 3 Me moria 0.83 MG/ML 8-13 mL, Soln, l Inhalant 15:20: NEB, Once Herm mckenna Solution 00 PRN for wheezing, first dose 02/26/20 10:20:00 CDT Ondansetron 2020-0 No 4 mg = 2 Me moria 8-13 mL, l 15:20: Injection, [place] 00 IV Push, q15min PRN for nausea, order duration: 2 doses, first dose 02/26/20 10:20:00 CDT, stop date Limited # of times Promethazin 2020-0 No 12.5 mg = M emoria e 8-13 0.5 mL, l 15:20: Injection, [place] 00 IM, Once PRN for vomiting, first dose 02/26/20 10:20:00 CDT fentaNYL 2020-0 No 25 mcg = Memor ia 8-13 0.5 mL, l 14:50: Injection, [place] 00 IV, Once, first dose 02/26/20 9:50:00 [...] ia 8-13 0.5 mL, l 14:16: Injection, [place] 00 IV, Once, first dose 02/26/20 9:16:00 [...] gm, Memoria 8-13 Soln-IV, l 12:53: IV [place] 00 Piggyback, Once, first dose 02/26/20 7:53:00 [...] Me moria 8-13 mL, l 12:53: Injection, [place] 00 IV, Once, first dose 02/26/20 7:53:00 [...] Me moria 8-13 mL, l 12:53: Injection, [place] 00 IV, Once, first dose 02/26/20 7:53:00 [...] gm, Memoria 8-13 Soln-IV, l 12:53: IV [place] 00 Piggyback, Once, first dose 02/26/20 7:53:00 CDT, stop date 02/26/20 7:53:00 CDT ondansetron 2020-0 No 4 mg = 2 Me moria 8-13 mL, l 12:53: Injection, [place] 00 IV, Once, first dose 02/26/20 7:53:00 CDT, stop date 02/26/20 7:53:00 CDT dexamethaso 2020-0 No 8 mg = 2 Me moria ne 8-13 mL, l 12:53: Injection, [place] 00 IV, Once, first dose 02/26/20 7:53:00 CDT, stop date 02/26/20 7:53:00 CDT ketorolac 2020-0 No 30 mg = 1 Mem oria 8-13 mL, l 12:53: Injection, [place] 00 IV, Once, first dose 02/26/20 7:53:00 CDT, stop date 02/26/20 7:53:00 CDT ceFAZolin 2020-0 No 2 gm, Memoria 8-13 Soln-IV, l 12:53: IV [place] 00 Piggyback, Once, first dose 02/26/20 7:53:00 CDT, stop date 02/26/20 7:53:00 CDT ondansetron 2020-0 No 4 mg = 2 Me moria 8-13 mL, l 12:53: Injection, [place] 00 IV, Once, first dose 02/26/20 7:53:00 CDT, stop date 02/26/20 7:53:00 CDT dexamethaso 2020-0 No 8 mg = 2 Me moria ne 8-13 mL, l 12:53: Injection, [place] 00 IV, Once, first dose 02/26/20 7:53:00 CDT, stop date 02/26/20 7:53:00 CDT ketorolac 2020-0 No 30 mg = 1 Mem oria 8-13 mL, l 12:53: Injection, [place] 00 IV, Once, first dose 02/26/20 7:53:00 CDT, stop date 02/26/20 7:53:00 CDT lidocaine 2020-0 No 100 mg = 5 Me moria 8-13 mL, l 12:41: Injection, [place] 00 IV, Once, first dose 02/26/20 7:41:00 CDT, stop date 02/26/20 7:41:00 CDT propofol 2020-0 No 200 mg = Memor ia 8-13 20 mL, l 12:41: Emulsion, [place] 00 IV, Once, first dose 02/26/20 7:41:00 CDT, stop date 02/26/20 7:41:00 CDT lidocaine 2020-0 No 100 mg = 5 Me moria 8-13 mL, l 12:41: Injection, [place] 00 IV, Once, first dose 02/26/20 7:41:00 CDT, stop date 02/26/20 7:41:00 CDT propofol 2020-0 No 200 mg = Memor ia 8-13 20 mL, l 12:41: Emulsion, [place] 00 IV, Once, first dose 02/26/20 7:41:00 CDT, stop date 02/26/20 7:41:00 CDT lidocaine 2020-0 No 100 mg = 5 Me moria 8-13 mL, l 12:41: Injection, [place] 00 IV, Once, first dose 02/26/20 7:41:00 CDT, stop date 02/26/20 7:41:00 CDT propofol 2020-0 No 200 mg = Memor ia 8-13 20 mL, l 12:41: Emulsion, [place] 00 IV, Once, first dose 02/26/20 7:41:00 [...] ia 8-13 20 mL, l 12:41: Emulsion, [place] 00 IV, Once, first dose 02/26/20 7:41:00 CDT, stop date 02/26/20 7:41:00 CDT fentaNYL 2020-0 No 50 mcg = 1 Mem oria 8-13 mL, l 12:35: Injection, [place] 00 IV, Once, first dose 02/26/20 7:35:00 CDT, stop date 02/26/20 7:35:00 CDT fentaNYL 2020-0 No 50 mcg = 1 Mem oria 8-13 mL, l 12:35: Injection, [place] 00 IV, Once, first dose 02/26/20 7:35:00 CDT, stop date 02/26/20 7:35:00 CDT fentaNYL 2020-0 No 50 mcg = 1 Mem oria 8-13 mL, l 12:35: Injection, [place] 00 IV, Once, first dose 02/26/20 7:35:00 CDT, stop date 02/26/20 7:35:00 CDT fentaNYL 2020-0 No 50 mcg = 1 Mem oria 8-13 mL, l 12:35: Injection, [place] 00 IV, Once, first dose 02/26/20 7:35:00 CDT, stop date 02/26/20 7:35:00 CDT fentaNYL 2020-0 No 50 mcg = 1 Mem oria 8-13 mL, l 12:35: Injection, [place] 00 IV, Once, first dose 02/26/20 7:35:00 CDT, stop date 02/26/20 7:35:00 CDT midazolam 2020-0 No 1 mg = 1 Lev trupti 8-13 mL, l 12:34: Injection, [place] 00 IV, Once, first dose 02/26/20 7:34:00 [...] Lev trupti 8-13 mL, l 12:34: Injection, [place] 00 IV, Once, first dose 02/26/20 7:34:00 CDT, stop date 02/26/20 7:34:00 CDT midazolam 2020-0 No 1 mg = 1 Lev trupti 8-13 mL, l 12:34: Injection, [place]a 00 IV, Once, first dose 02/26/20 7:34:00 CDT, stop date 02/26/20 7:34:00 CDT midazolam 2020-0 No 1 mg = 1 Lev trupti 8-13 mL, l 12:26: Injection, [place] 00 IV, Once, first dose 02/26/20 7:26:00 CDT, stop date 02/26/20 7:26:00 CDT midazolam 2020-0 No 1 mg = 1 Lev trupti 8-13 mL, l 12:26: Injection, [place] 00 IV, Once, first dose 02/26/20 7:26:00 CDT, stop date 02/26/20 7:26:00 CDT midazolam 2020-0 No 1 mg = 1 Lev trupti 8-13 mL, l 12:26: Injection, Luca 00 IV, Once, first dose 02/26/20 7:26:00 CDT, stop date 02/26/20 7:26:00 CDT midazolam 2020-0 No 1 mg = 1 Lev trupti 8-13 mL, l 12:26: Injection, [place] 00 IV, Once, first dose 02/26/20 7:26:00 CDT, stop date 02/26/20 7:26:00 CDT midazolam 2020-0 No 1 mg = 1 Lev trupti 8-13 mL, l 12:26: Injection, [place] 00 IV, Once, first dose 02/26/20 7:26:00 CDT, stop date 02/26/20 7:26:00 CDT fentaNYL 2020-0 No 50 mcg = 1 Mem oria 8-13 mL, l 12:25: Injection, [place] 00 IV, Once, first dose 02/26/20 7:25:00 [...] Mem oria 8-13 mL, l 12:25: Injection, [place] 00 IV, Once, first dose 02/26/20 7:25:00 CDT, stop date 02/26/20 7:25:00 CDT fentaNYL 2020-0 No 50 mcg = 1 Mem oria 8-13 mL, l 12:25: Injection, [place] 00 IV, Once, first dose 02/26/20 7:25:00 CDT, stop date 02/26/20 7:25:00 CDT Cefazolin 2020-0 No 2 gm, Memoria 8-13 Soln-IV, l 12:00: IV [place] 00 Piggyback, Once, infuse over 30 minutes, [...] gm, Memoria 8-13 Soln-IV, l 12:00: IV [place] 00 Piggyback, Once, infuse over 30 minutes, first dose 02/26/20 7:00:00 CDT, stop date 02/26/20 7:00:00 CDT, patient weight 50-120 kg, Prophylaxi s Cefazolin 2020-0 No 2 gm, Memoria 8-13 Soln-IV, l 12:00: IV [place] 00 Piggyback, Once, infuse over 30 minutes, first dose 02/26/20 7:00:00 CDT, stop date 02/26/20 7:00:00 CDT, patient weight 50-120 kg, Prophylaxi s LR 1,000 mL 2020-0 No 1,000 mL, M emoria 8-13 IV, 30 l 11:28: mL/hr, start date 02/26/20 6:28:00 CDT, 2.14, m2 Lidocaine 2020-0 No 0.2 mL, Memor ia 2% 0.2 mL 02-25 Injection, l IV Start 11:28: Subcutaneo [facility] [[facility]] , Once PRN for other (see comment), first dose 02/26/20 6:28:00 CDT LR 1,000 mL 2020-0 No 1,000 mL, M emoria 8-13 IV, 30 l 11:28: mL/hr, start date 02/26/20 6:28:00 CDT, 2.14, m2 Lidocaine 2020-0 No 0.2 mL, Memor ia 2% 0.2 mL 02-25 Injection, l IV Start 11:28: Subcutaneo [facility] [[facility]] [facility], Once PRN for other (see comment), first dose 02/26/20 6:28:00 CDT LR 1,000 mL 2020-0 No 1,000 mL, M emoria 8-13 IV, 30 l 11:28: mL/hr, start date 02/26/20 6:28:00 CDT, 2.14, m2 Lidocaine 2020-0 No 0.2 mL, Memor ia 2% 0.2 mL 02-25 Injection, l IV Start 11:28: Subcutaneo [facility] [[facility]] , Once PRN for other (see comment), first dose 02/26/20 6:28:00 CDT LR 1,000 mL 2020-0 No 1,000 mL, M emoria 8-13 IV, 30 l 11:28: mL/hr, start date 02/26/20 6:28:00 CDT, 2.14, m2 Lidocaine 2020-0 No 0.2 mL, Memor ia 2% 0.2 mL 02-25 Injection, l IV Start 11:28: Subcutaneo [facility] [[facility]] us, Once PRN for other (see comment), first dose 02/26/20 6:28:00 CDT LR 1,000 mL 2020-0 No 1,000 mL, M emoria 02-25 IV, 30 l 11:28: mL/hr, [place] 00 start date 02/26/20 6:28:00 CDT, 2.14, m2 Lidocaine 2020-0 No 0.2 mL, Memor ia 2% 0.2 mL 02-25 Injection, l IV Start 11:28: Subcutaneo [facility]ul[facility] [[facility]] us, Once PRN for other (see comment), first dose 02/26/20 6:28:00 CDT Allergy 2020-0 Yes mg, Oral, Memor ia Relief 8-05 Daily, 0 l 17:06: Refill(s) Luca Allergy 2020-0 Yes mg, Oral, Memor ia Relief 8-05 Daily, 0 l 17:06: Refill(s) [place]a Allergy 2020-0 Yes mg, Oral, Memor ia Relief 8-05 Daily, 0 l 17:06: Refill(s) [place] 00 Allergy 2020-0 Yes mg, Oral, Memor ia Relief 8-05 Daily, 0 l 17:06: Refill(s) [place] 00 Allergy 2020-0 Yes mg, Oral, Memor ia Relief 8-05 Daily, 0 l 17:06: Refill(s) Tylenol PM 2020-0 Yes Oral, qHS, M emoria 8-05 0 l 17:05: Refill(s), [place] 00 sleep /pain Tylenol PM 2020-0 Yes Oral, qHS, M emoria 8-05 0 l 17:05: Refill(s), sleep /pain Tylenol PM 2020-0 Yes Oral, qHS, M emoria 8-05 0 l 17:05: Refill(s), [place] 00 sleep /pain Tylenol PM 2020-0 Yes Oral, qHS, M emoria 8-05 0 l 17:05: Refill(s), [place] 00 sleep /pain Tylenol PM 2020-0 Yes Oral, qHS, M emoria 8-05 0 l 17:05: Refill(s), [place] 00 sleep /pain amitriptyli 2020-0 Yes 75 [...] mg 8-05 tabs, l oral 17:04: Oral, [place] delayed 00 Daily, 0 release Refill(s), tablet GERD meloxicam 2020-0 Yes 7.5 mg = 1 Me moria 7.5 MG Oral 8-05 tabs, l Tablet 17:04: Oral, [place] 00 Daily, 0 Refill(s), joint pain amitriptyli 2020-0 Yes 75 mg = 1 M emoria ne 75 mg 8-05 tabs, l oral tablet 17:04: Oral, qHS, [place] 00 0 Refill(s), sleep levothyroxi 2020-0 Yes [...] oral 8-05 tabs, l tablet 17:04: Oral, [place] 00 Daily, 0 Refill(s) pantoprazol 2020-0 Yes 40 mg = 1 M emoria e 40 mg 8-05 tabs, l oral 17:04: Oral, [place] delayed 00 Daily, 0 release Refill(s), tablet GERD meloxicam 2020-0 Yes 7.5 mg = 1 Me moria 7.5 MG Oral 8-05 tabs, l Tablet 17:04: Oral, [place] 00 Daily, 0 Refill(s), joint pain amitriptyli [...] tabs, l oral tablet 17:04: Oral, qHS, [place] 00 0 Refill(s), sleep levothyroxi 2020-0 Yes 25 mcg = 1 Memoria ne 25 mcg 8 tabs, l (0.025 mg) 17:04: Oral, Burak n oral tablet 00 Daily, 0 Refill(s), hypothyroi d rizatriptan 2020-0 Yes 5 mg = 1 Me moria 5 mg oral - tabs, l tablet 17:04: Oral, [place] 00 Daily, 0 Refill(s) pantoprazol 2019-0 Yes 40 mg = 1 M emoria e 40 mg -05 tabs, l oral 17:04: Oral, [place] delayed 00 Daily, 0 release Refill(s), tablet GERD meloxicam 2019-0 Yes 7.5 mg = 1 Me moria 7.5 MG Oral 02-17 tabs, l Tablet 17:04: Oral, [place] 00 Daily, 0 Refill(s), joint pain pantoprazol [...] [place]a 00 30 ea, 5 Refill(s), Pharmacy: [facility], 152.4, cm, 01/15/20 15:04:00 CDT, Height, 115.455, kg, 01/15/20 15:04:00 CDT, Weight rizatriptan 2020-0 Yes 5 mg = 1 Me moria 5 MG Oral 7-02 tab, PO, l Tablet 20:24: ONCE, PRN Burak n [Maxalt] 00 for migraine headache, # 9 tab, 1 Refill(s), Pharmacy: [facility], 152.4, cm, 01/15/20 15:04:00 CDT, Height, 115.455, kg, 01/15/20 15:04:00 CDT, Weight amitriptyli 2020-0 Yes = 1 tab, Me moria ne 75 mg 7-02 PO, l oral tablet 20:24: Bedtime, # [place] 00 30 ea, 5 Refill(s), Pharmacy: [facility], 152.4, cm, 01/15/20 15:04:00 CDT, Height, 115.455, kg, 01/15/20 15:04:00 CDT, Weight rizatriptan 2020-0 Yes 5 mg = 1 Me moria 5 MG Oral 7-02 tab, PO, l Tablet 20:24: ONCE, PRN Burak n [Maxalt] 00 for migraine headache, # 9 tab, 1 Refill(s), Pharmacy: [facility], 152.4, cm, 01/15/20 15:04:00 CDT, Height, 115.455, kg, 01/15/20 15:04:00 CDT, Weight amitriptyli 2020-0 Yes = 1 tab, Me moria ne 75 mg 7-02 PO, l oral tablet 20:24: Bedtime, # [place] 00 30 ea, 5 Refill(s), Pharmacy: [facility], 152.4, cm, 01/15/20 15:04:00 CDT, Height, 115.455, kg, 01/15/20 15:04:00 CDT, Weight rizatriptan 2020-0 Yes 5 mg = 1 Me moria 5 MG Oral 7-02 tab, PO, l Tablet 20:24: ONCE, PRN Burak n [Maxalt] 00 for migraine headache, # 9 tab, 1 Refill(s), Pharmacy: [facility], 152.4, cm, 01/15/20 15:04:00 CDT, Height, 115.455, kg, 01/15/20 15:04:00 CDT, Weight amitriptyli 2020-0 Yes = 1 tab, Me moria ne 75 mg 7-02 PO, l oral tablet 20:24: Bedtime, # [place] 00 30 ea, 5 Refill(s), Pharmacy: [facility], 152.4, cm, 01/15/20 15:04:00 CDT, Height, 115.455, kg, 01/15/20 15:04:00 CDT, Weight rizatriptan 2020-0 Yes 5 mg = 1 Me moria 5 MG Oral 7-02 tab, PO, l Tablet 20:24: ONCE, PRN Burak n [Maxalt] 00 for migraine headache, # 9 tab, 1 Refill(s), Pharmacy: [facility], 152.4, cm, 01/15/20 15:04:00 CDT, Height, 115.455, kg, 01/15/20 15:04:00 CDT, Weight amitriptyli 2020-0 Yes = 1 tab, Me moria ne 75 mg 7-02 PO, l oral tablet 20:24: Bedtime, # [place] 00 30 ea, 5 Refill(s), Pharmacy: [facility], 152.4, cm, 01/15/20 15:04:00 CDT, Height, 115.455, kg, 01/15/20 15:04:00 CDT, Weight rizatriptan 2020-0 Yes 5 mg = 1 Me moria 5 MG Oral 7-02 tab, PO, l Tablet 20:24: ONCE, PRN Burak n [Maxalt] 00 for migraine headache, # 9 tab, 1 Refill(s), Pharmacy: [facility], 152.4, cm, 01/15/20 15:04:00 CDT, Height, 115.455, kg, 01/15/20 15:04:00 CDT, Weight amitriptyli 2020-0 Yes = 1 tab, Me moria ne 75 mg 5-19 PO, l oral tablet 21:06: Bedtime, # [place] 00 30 ea, 1 Refill(s), Pharmacy: [facility] rizatriptan 2020-0 Yes 5 mg = 1 Me moria 5 MG Oral 5-19 tab, PO, l Tablet 21:06: ONCE, PRN Burak n [Maxalt] 00 for migraine headache, # 9 tab, 1 Refill(s), Pharmacy: [facility] rizatriptan 2020-0 Yes 5 mg = 1 Me moria 5 MG Oral 5-19 tab, PO, l Tablet 21:06: ONCE, PRN Burak n [Maxalt] 00 for migraine headache, # 9 tab, 1 Refill(s), Pharmacy: [facility] amitriptyli 2020-0 Yes = 1 tab, Me moria ne 75 mg 5-19 PO, l oral tablet 21:06: Bedtime, # [place] 00 30 ea, 1 Refill(s), Pharmacy: [facility] rizatriptan 2020-0 Yes 5 mg = 1 Me moria 5 MG Oral 5-19 tab, PO, l Tablet 21:06: ONCE, PRN Burak n [Maxalt] 00 for migraine headache, # 9 tab, 1 Refill(s), Pharmacy: [facility] amitriptyli 2020-0 Yes = 1 tab, Me moria ne 75 mg 5-19 PO, l oral tablet 21:06: Bedtime, # [place] 00 30 ea, 1 Refill(s), Pharmacy: [facility] rizatriptan 2020-0 Yes 5 mg = 1 Me moria 5 MG Oral 5-19 tab, PO, l Tablet 21:06: ONCE, PRN Burak n [Maxalt] 00 for migraine headache, # 9 tab, 1 Refill(s), Pharmacy: [facility] amitriptyli 2020-0 Yes = 1 tab, Me moria ne 75 mg 5-19 PO, l oral tablet 21:06: Bedtime, # [place] 30 ea, 1 Refill(s), Pharmacy: [facility] rizatriptan 2020-0 Yes 5 mg = 1 Me moria 5 MG Oral 5-19 tab, PO, l Tablet 21:06: ONCE, PRN Burak n [Maxalt] 00 for migraine headache, # 9 tab, 1 Refill(s), Pharmacy: [facility] amitriptyli 2020-0 Yes = 1 tab, Me moria ne 75 mg 5-19 PO, l oral tablet 21:06: Bedtime, # [place] 30 ea, 1 Refill(s), Pharmacy: [facility] loratadine Yes loratadine [...] TABLET BY MOUTH ONCE DAILY sod Yes [id number] 1{bottl Use 1 Unive rs chlor-bicar 9-08 e} Bottle in ity of b-squeez 00:00: each [place] bottle 00 nostril 2 Medical (NEILMED (two) Branch SINUS RINSE times COMPLETE) daily. Use pkdv in hot shower 1 hour before bedtime loratadine Yes [id number] 10mg Take 1 U nivers 10 mg 9-08 tablet by ity of tablet 00:00: mouth [place] 00 daily. Medical Branch sod Yes [id number] 1{bottl Use 1 Unive rs chlor-bicar 9-08 e} Bottle in ity of b-squeez 00:00: each [place] bottle 00 nostril 2 Medical (NEILMED (two) Branch SINUS RINSE times COMPLETE) daily. Use pkdv in hot shower 1 hour before bedtime loratadine Yes [id number] 10mg Take 1 U nivers 10 mg 9-08 tablet by ity of tablet 00:00: mouth [place] 00 daily. Medical Branch sod Yes [id number] 1{bottl Use 1 Unive rs chlor-bicar 9-08 e} Bottle in ity of b-squeez 00:00: each [place] bottle 00 nostril 2 Medical (NEILMED (two) Branch SINUS RINSE times COMPLETE) daily. Use pkdv in hot shower 1 hour before bedtime loratadine Yes [id number] 10mg Take 1 U nivers 10 mg 9-08 tablet by ity of tablet 00:00: mouth 00 daily. Medical Branch sod 2018- Yes [id number] 1{bottl Use 1 Unive rs chlor-bicar 03-23 e} Bottle in ity of b-squeez 00:00: each [place] bottle 00 nostril 2 Medical (NEILMED (two) Branch SINUS RINSE times COMPLETE) daily. Use pkdv in hot shower 1 hour before bedtime loratadine Yes [id number] 10mg Take 1 U nivers 10 mg 9-08 tablet by ity of tablet 00:00: mouth 00 daily. Medical Branch amitriptyli Yes 75 mg = 1 M emoria ne 75 mg 8-22 tab, PO, l oral tablet 18:27: Bedtime, # [place] 00 30 tab, 1 Refill(s), Pharmacy: [facility] amitriptyli Yes 75 mg = 1 M emoria ne 75 mg 8-22 tab, PO, l oral tablet 18:27: Bedtime, # [place] 00 30 tab, 1 Refill(s), Pharmacy: [facility] amitriptyli Yes 75 mg = 1 M emoria ne 75 mg 8-22 tab, PO, l oral tablet 18:27: Bedtime, # [place] 00 30 tab, 1 Refill(s), Pharmacy: [facility] 80 amitriptyli Yes 75 mg = 1 M emoria ne 75 mg 8-22 tab, PO, l oral tablet 18:27: Bedtime, # [place] 00 30 tab, 1 Refill(s), Pharmacy: [facility] 808 amitriptyli Yes 75 mg = 1 M emoria ne 75 mg 8-22 tab, PO, l oral tablet 18:27: Bedtime, # [place] 00 30 tab, 1 Refill(s), Pharmacy: [facility] 808 rizatriptan Yes 5 mg = 1 Me moria 5 MG Oral 8-02 tab, PO, l Tablet 20:24: ONCE, PRN [place] n [Maxalt] 09 for migraine headache, # 9 tab, 1 Refill(s), Pharmacy: [facility] 808 rizatriptan 2019-0 Yes 5 mg = 1 Me moria 5 MG Oral 8-02 tab, PO, l Tablet 20:24: ONCE, PRN [place] n [Maxalt] 09 for migraine headache, # 9 tab, 1 Refill(s), Pharmacy: [facility] rizatriptan 2019-0 Yes 5 mg = 1 Me moria 5 MG Oral 8-02 tab, PO, l Tablet 20:24: ONCE, PRN [place] n [Maxalt] 09 for migraine headache, # 9 tab, 1 Refill(s), Pharmacy: [facility] rizatriptan 2019-0 Yes 5 mg = 1 Me moria 5 MG Oral 8-02 tab, PO, l Tablet 20:24: ONCE, PRN [place] n [Maxalt] 09 for migraine headache, # 9 tab, 1 Refill(s), Pharmacy: [facility] rizatriptan 2019-0 Yes 5 mg = 1 Me moria 5 MG Oral 8-02 tab, PO, l Tablet 20:24: ONCE, PRN [place] n [Maxalt] 09 for migraine headache, # 9 tab, 1 Refill(s), Pharmacy: [facility] thiamine 2019-0 Yes 100 mg = 1 Mem oria 100 mg oral 8-02 tab, PO, l tablet 20:23: Daily, X [place] 17 30 day, # 30 tab, 3 Refill(s), Pharmacy: [facility] thiamine 2019-0 Yes 100 mg = 1 Mem oria 100 mg oral 8-02 tab, PO, l tablet 20:23: Daily, X [place] 17 30 day, # 30 tab, 3 Refill(s), Pharmacy: [facility] thiamine 2019-0 Yes 100 mg = 1 Mem oria 100 mg oral 8-02 tab, PO, l tablet 20:23: Daily, X [place] 17 30 day, # 30 tab, 3 Refill(s), Pharmacy: [facility] thiamine 2019-0 Yes 100 mg = 1 Mem oria 100 mg oral 8-02 tab, PO, l tablet 20:23: Daily, X [place] 17 30 day, # 30 tab, 3 Refill(s), Pharmacy: [facility] thiamine 2019-0 Yes 100 mg = 1 Mem oria 100 mg oral 8-02 tab, PO, l tablet 20:23: Daily, X [place] 17 30 day, # 30 tab, 3 Refill(s), Pharmacy: [facility] cyanocobala Yes 1,000 Memor ia min 1000 8-02 microgram l mcg 20:23: = 1 tab, [place] sublingual 13 SL, Daily, tablet # 30 tab, 2 Refill(s), Pharmacy: [facility] cyanocobala Yes 1,000 Memor ia min 1000 8-02 microgram l mcg 20:23: = 1 tab, [place] sublingual 13 SL, Daily, tablet # 30 tab, 2 Refill(s), Pharmacy: [facility] cyanocobala Yes 1,000 Memor ia min 1000 8-02 microgram l mcg 20:23: = 1 tab, [place] sublingual 13 SL, Daily, tablet # 30 tab, 2 Refill(s), Pharmacy: [facility] cyanocobala Yes 1,000 Memor ia min 1000 8-02 microgram l mcg 20:23: = 1 tab, [place] sublingual 13 SL, Daily, tablet # 30 tab, 2 Refill(s), Pharmacy: [facility] cyanocobala Yes 1,000 Memor ia min 1000 8-02 microgram l mcg 20:23: = 1 tab, [place] sublingual 13 SL, Daily, tablet # 30 tab, 2 Refill(s), Pharmacy: [facility] amitriptyli Yes 50 mg = 1 M emoria ne 50 mg 8-02 tab, PO, l oral tablet 20:23: Bedtime, # [place] 09 30 tab, 1 Refill(s), Pharmacy: [facility] amitriptyli Yes 50 mg = 1 M emoria ne 50 mg 8-02 tab, PO, l oral tablet 20:23: Bedtime, # [place] 09 30 tab, 1 Refill(s), Pharmacy: [facility] amitriptyli Yes 50 mg = 1 M emoria ne 50 mg 8-02 tab, PO, l oral tablet 20:23: Bedtime, # [place] 09 30 tab, 1 Refill(s), Pharmacy: [facility] 808 amitriptyli Yes 50 mg = 1 M emoria ne 50 mg 8-02 tab, PO, l oral tablet 20:23: Bedtime, # [place] 30 tab, 1 Refill(s), Pharmacy: [facility] 808 amitriptyli Yes 50 mg = 1 M emoria ne 50 mg 8-02 tab, PO, l oral tablet 20:23: Bedtime, # [place] 30 tab, 1 Refill(s), Pharmacy: [facility] 808 rizatriptan Yes rizatripta Methodi [...] ONCE DAILY NEEDED FOR HEADACHE MIGRAINE rizatriptan 2019- Yes rizatripta Methodi (MAXALT) 5 8-02 n [...] day, # 6 tab, 1 Refill(s), Pharmacy: [facility] 808 amitriptyli 2019-0 No 50 mg = 1 M emoria ne 50 mg 7-13 tab, PO, l oral tablet 01:53: Bedtime, # [place] 00 30 tab, 1 Refill(s), Pharmacy: [facility] 80 rizatriptan 2019-0 No 5 mg = 1 Me moria 5 MG Oral 7-13 tab, PO, l Tablet 01:53: Daily, PRN [place] nn [Maxalt] 00 for migraine headache, X 6 day, # 6 tab, 1 Refill(s), Pharmacy: [facility] 80 amitriptyli 2018-0 No 50 mg = 1 M emoria ne 50 mg 7-13 tab, PO, l oral tablet 01:53: Bedtime, # [place] 00 30 tab, 1 Refill(s), Pharmacy: [facility] 808 rizatriptan 2019-0 No 5 mg = 1 Me moria 5 MG Oral 7-13 tab, PO, l Tablet 01:53: Daily, PRN [place] nn [Maxalt] 00 for migraine headache, X 6 day, # 6 tab, 1 Refill(s), Pharmacy: [facility] 808 amitriptyli 2019-0 No 50 mg = 1 M emoria ne 50 mg 7-13 tab, PO, l oral tablet 01:53: Bedtime, # [place] 00 30 tab, 1 Refill(s), Pharmacy: [facility] 808 rizatriptan 2019-0 No 5 mg = 1 Me moria 5 MG Oral 7-13 tab, PO, l Tablet 01:53: Daily, PRN [place] nn [Maxalt] 00 for migraine headache, X 6 day, # 6 tab, 1 Refill(s), Pharmacy: [facility] amitriptyli 2019-0 No 50 mg = 1 M emoria ne 50 mg 7-13 tab, PO, l oral tablet 01:53: Bedtime, # [place] 00 30 tab, 1 Refill(s), Pharmacy: [facility] rizatriptan 2019-0 No 5 mg = 1 Me moria 5 MG Oral 7-13 tab, PO, l Tablet 01:53: Daily, PRN [place] nn [Maxalt] 00 for migraine headache, X 6 day, # 6 tab, 1 Refill(s), Pharmacy: [facility] amitriptyli 2019-0 No 50 mg = 1 M emoria ne 50 mg 7-13 tab, PO, l oral tablet 01:53: Bedtime, # [place] 00 30 tab, 1 Refill(s), Pharmacy: [facility] frovatripta 2019-0 No 2.5 mg = 1 Memoria n 2.5 mg 6-27 tab, PO, l oral tablet 15:37: Daily, PRN [place] 00 for migraine headache, May repeat another dose at least 2 hours after the first dose, X 3 day, # 9 tab, 2 Refill(s), Pharmacy: [facility] frovatripta 2019-0 No 2.5 mg = 1 Memoria n 2.5 mg 6-27 tab, PO, l oral tablet 15:37: Daily, PRN [place] 00 for migraine headache, May repeat another dose at least 2 hours after the first dose, X 3 day, # 9 tab, 2 Refill(s), Pharmacy: [facility] frovatripta 2019-0 No 2.5 mg = 1 Memoria n 2.5 mg 6-27 tab, PO, l oral tablet 15:37: Daily, PRN [place] 00 for migraine headache, May repeat another dose at least 2 hours after the first dose, X 3 day, # 9 tab, 2 Refill(s), Pharmacy: [facility] frovatripta 2019-0 No 2.5 mg = 1 Memoria n 2.5 mg 6-27 tab, PO, l oral tablet 15:37: Daily, PRN [place] 00 for migraine headache, May repeat another dose at least 2 hours after the first dose, X 3 day, # 9 tab, 2 Refill(s), Pharmacy: [facility] frovatripta No 2.5 mg = 1 Memoria n 2.5 mg 6-27 tab, PO, l oral tablet 15:37: Daily, PRN [place] 00 for migraine headache, May repeat another dose at least 2 hours after the first dose, X 3 day, # 9 tab, 2 Refill(s), Pharmacy: [facility] eletriptan No See Memoria 40 MG Oral 6-25 Instructio l Tablet 23:35: ns, PO, [place] [Relpax] 00 Take 1-2 tabs orally at onset of migraine, may repeat dose once in 2 hours, X 3 day, # 6 tab, 1 Refill(s), Pharmacy: [facility] eletriptan No See Memoria 40 MG Oral 6-25 Instructio l Tablet 23:35: ns, PO, [place] [Relpax] 00 Take 1-2 tabs orally at onset of migraine, may repeat dose once in 2 hours, X 3 day, # 6 tab, 1 Refill(s), Pharmacy: [facility] eletriptan No See Memoria 40 MG Oral 6-25 Instructio l Tablet 23:35: ns, PO, [place] [Relpax] 00 Take 1-2 tabs orally at onset of migraine, may repeat dose once in 2 hours, X 3 day, # 6 tab, 1 Refill(s), Pharmacy: [facility] eletriptan No See Memoria 40 MG Oral 6-25 Instructio l Tablet 23:35: ns, PO, [place] [Relpax] 00 Take 1-2 tabs orally at onset of migraine, may repeat dose once in 2 hours, X 3 day, # 6 tab, 1 Refill(s), Pharmacy: [facility] eletriptan No See Memoria 40 MG Oral 6-25 Instructio l Tablet 23:35: ns, PO, [place] [Relpax] 00 Take 1-2 tabs orally at onset of migraine, may repeat dose once in 2 hours, X 3 day, # 6 tab, 1 Refill(s), Pharmacy: [facility] amitriptyli Yes 25 mg = 1 M emoria ne 25 mg 6-11 tab, PO, l oral tablet 21:16: Bedtime, # [place] 00 30 tab, 3 Refill(s), Pharmacy: [facility] amitriptyli Yes 25 mg = 1 M emoria ne 25 mg 6-11 tab, PO, l oral tablet 21:16: Bedtime, # [place] 00 30 tab, 3 Refill(s), Pharmacy: [facility] amitriptyli Yes 25 mg = 1 M emoria ne 25 mg 6-11 tab, PO, l oral tablet 21:16: Bedtime, # [place] 00 30 tab, 3 Refill(s), Pharmacy: [facility] amitriptyli Yes 25 mg = 1 M emoria ne 25 mg 6-11 tab, PO, l oral tablet 21:16: Bedtime, # [place] 00 30 tab, 3 Refill(s), Pharmacy: [facility] amitriptyli Yes 25 mg = 1 M emoria ne 25 mg 6-11 tab, PO, l oral tablet 21:16: Bedtime, # [place] 00 30 tab, 3 Refill(s), Pharmacy: [facility] cyanocobala Yes 1,000 Memor ia min 1000 6-07 microgram l mcg 19:39: = 1 tab, [place] sublingual 00 SL, Daily, tablet # 30 tab, 2 Refill(s), Pharmacy: [facility] cyanocobala Yes 1,000 Memor ia min 1000 6-07 microgram l mcg 19:39: = 1 tab, [place] sublingual 00 SL, Daily, tablet # 30 tab, 2 Refill(s), Pharmacy: [facility] cyanocobala Yes 1,000 Memor ia min 1000 6-07 microgram l mcg 19:39: = 1 tab, [place] sublingual 00 SL, Daily, tablet # 30 tab, 2 Refill(s), Pharmacy: [place] [address] cyanocobala 2019-0 Yes 1,000 Memor ia min 1000 6-07 microgram l mcg 19:39: = 1 tab, [place] sublingual 00 SL, Daily, tablet # 30 tab, 2 Refill(s), Pharmacy: [facility] cyanocobala 0 Yes 1,000 Memor ia min 1000 6-07 microgram l mcg 19:39: = 1 tab, [place] sublingual 00 SL, Daily, tablet # 30 tab, 2 Refill(s), Pharmacy: [place] [address] thiamine Yes 100 mg = 1 Mem oria 100 mg oral 5-17 tab, PO, l tablet 18:13: Daily, X [place] 00 30 day, # 30 tab, 3 Refill(s), Pharmacy: [place] [address] thiamine Yes 100 mg = 1 Mem oria 100 mg oral 5-17 tab, PO, l tablet 18:13: Daily, X [place] 00 30 day, # 30 tab, 3 Refill(s), Pharmacy: [place] [address] thiamine Yes 100 mg = 1 Mem oria 100 mg oral 5-17 tab, PO, l tablet 18:13: Daily, X [place] 00 30 day, # 30 tab, 3 Refill(s), Pharmacy: [place] [address] thiamine 0 Yes 100 mg = 1 Mem oria 100 mg oral 5-17 tab, PO, l tablet 18:13: Daily, X [place] 00 30 day, # 30 tab, 3 Refill(s), Pharmacy: [place] [address] thiamine 0 Yes 100 mg = 1 Mem oria 100 mg oral 5-17 tab, PO, l tablet 18:13: Daily, X [place] 00 30 day, # 30 tab, 3 Refill(s), Pharmacy: [facility] amitriptyli 2019-0 Yes 10 mg = 1 M emoria ne 10 mg 5-10 tab, PO, l oral tablet 20:44: Bedtime, # [place] 00 30 tab, 3 Refill(s), Pharmacy: [facility] amitriptyli 2018-0 Yes 10 mg = 1 M emoria ne 10 mg 5-10 tab, PO, l oral tablet 20:44: Bedtime, # [place] 00 30 tab, 3 Refill(s), Pharmacy: [facility] 808 amitriptyli 2019-0 Yes 10 mg = 1 M emoria ne 10 mg 5-10 tab, PO, l oral tablet 20:44: Bedtime, # [place] 00 30 tab, 3 Refill(s), Pharmacy: [facility] 808 amitriptyli 2019-0 Yes 10 mg = 1 M emoria ne 10 mg 5-10 tab, PO, l oral tablet 20:44: Bedtime, # [place] 00 30 tab, 3 Refill(s), Pharmacy: [facility] 808 amitriptyli 2019-0 Yes 10 mg = 1 M emoria ne 10 mg 5-10 tab, PO, l oral tablet 20:44: Bedtime, # [place] 00 30 tab, 3 Refill(s), Pharmacy: [facility] 808 gabapentin 2019-0 Yes 300 mg = 1 M emoria 300 MG Oral 5-10 cap, PO, l Capsule 20:28: BID, # 90 [place] nn 00 cap, 1 Refill(s) cyclobenzap 2019-0 No 10 mg = 1 M emoria rine 10 mg 5-10 tab, PO, l oral tablet 20:28: TID, PRN [place] 00 for spasms, # 30 tab, 0 Refill(s) levothyroxi 2019-0 [...] [place] nn 00 cap, 1 Refill(s) gabapentin 2019-0 Yes 300 mg = [...] spasms, # 30 tab, 0 Refill(s) levothyroxi 2019-0 [...] [place] nn 00 cap, 1 Refill(s) gabapentin 2019-0 Yes 300 mg = [...] Daily, # 30 tab, 0 Refill(s) escitalopra 2019- Yes 20 mg = 1 M emoria m 20 mg 5-10 tab, PO, l oral tablet 20:28: Daily, # [place] 00 30 tab, 0 Refill(s) gabapentin 2018-0 Yes 300 mg = 1 M emoria 300 mg oral 5-10 cap, PO, l capsule 20:28: BID, # 90 Antonia nn 00 cap, 1 Refill(s) levothyroxi 2018-0 Yes 50 Method i [...] tablet # 30 tab, 0 Refill(s) levothyroxi 20190 Yes 50 Method i ne 5-[address] (SYNTHROID) 00:00: = 1 tab, [facility] 50 mcg 00 PO, Daily, l tablet # 30 tab, 0 Refill(s) levothyroxi 2019-0 Yes 50 Method i ne 5-[address] (SYNTHROID) 00:00: = 1 tab, [facility] 50 mcg 00 PO, Daily, l tablet # 30 tab, 0 Refill(s) levothyroxi 20190 Yes 50 Method i ne 5-10 microgram [...] 30 tab, 0 Refill(s) levothyroxi 0 Yes 50ug Take 1 Univ [...] [place] 00 every Medical morning. Branch escitalopra 2017-0 Yes 10mg Take 1 Univ ers m oxalate 1-24 tablet by ity o f 10 mg 00:00: mouth [place] tablet 00 daily. Medical Branch escitalopra 2017-0 Yes 10mg Take 1 Univ ers m oxalate 1-24 tablet by ity o f 10 mg 00:00: mouth [place] tablet 00 daily. Medical Branch escitalopra 2017-0 Yes 10mg Take 1 Univ ers m oxalate 1-24 tablet by ity o f 10 mg 00:00: mouth [place] tablet 00 daily. Medical Branch escitalopra 2016-0 Yes 10mg Take 1 Univ ers m oxalate 1-24 tablet by ity o f 10 mg 00:00: mouth [place] tablet 00 daily. Medical Branch bisoprolol Yes 1 tablet [facility] (ZEBETA) 10 1-[address] [facility] tablet 00:00: Once a day [facility] 00 l bisoprolol Yes 1 tablet [facility] (ZEBETA) 10 -[address] MG tablet 00:00: Once a day [facility] sp[facility] l bisoprolol Yes 1 tablet [facility] (ZEBETA) 10 -[address] MG tablet 00:00: Once a day [facility] sp[facility] l bisoprolol Yes 1 tablet [facility] (ZEBETA) 10 -[address] MG tablet 00:00: Once a day [facility] sp[facility] l bisoprolol Yes 1 tablet [facility] (ZEBETA) 10 -[address] MG tablet 00:00: Once a [...] day Ho spita 00 l bisoprolol Yes [id number] 10mg Take 1 U nivers 10 mg 1-11 tablet by ity of tablet 00:00: mouth [place] 00 daily. Medical Branch cyclobenzap Yes [id number] 10mg Take 1 Univers rine 10 mg 1-11 tablet by ity of tablet 00:00: mouth at [place] 00 bedtime. Medical Branch bisoprolol Yes [id number] 10mg Take 1 U nivers 10 mg 1-11 tablet by ity of tablet 00:00: mouth [place] 00 daily. Medical Branch cyclobenzap Yes [id number] 10mg Take 1 Univers rine 10 mg 1-11 tablet by ity of tablet 00:00: mouth at [place] [address] bedtime. Medical Branch bisoprolol Yes [id number] 10mg Take 1 U nivers 10 mg 1-11 tablet by ity of tablet 00:00: mouth [place] 00 daily. Medical Branch cyclobenzap Yes [id number] 10mg Take 1 Univers rine 10 mg 1-11 tablet by ity of tablet 00:00: mouth at [place] [address] bedtime. Medical Branch bisoprolol Yes [id number] 10mg Take 1 U nivers 10 mg 1-11 tablet by ity of tablet 00:00: mouth [place] 00 daily. Medical Branch cyclobenzap Yes [id number] 10mg Take 1 Univers rine 10 mg 1-11 tablet by ity of tablet 00:00: mouth at [place] [address] bedtime. Medical Branch albuterol 2015-07 Yes 3 [...] nasal ion nasal spray spray,susp ension fluticasone 0 Yes Univer s 50 03-17 ity of mcg/actuati 00:00: [place] on nasal 00 Medical spray Branch fluticasone Yes Univer s 50 03-17 ity of mcg/actuati 00:00: [place] on nasal 00 Medical spray Branch fluticasone Yes Univer s 50 9- ity of mcg/actuati 00:00: [place] on nasal 00 Medical spray Branch fluticasone Yes Univer s 50 9- ity of mcg/actuati 00:00: [place] on nasal 00 Medical spray Branch hydrALAZINE [...] Rosi esposito Adacel) 00:00:00 TDAP 2016-07-24 Completed [facility] 00:00:00 [facility] Influenza Virus 2016-07-24 Completed Universit y of Vaccine Quad IM 3+ 00:00:00 [facility] TDAP 2016-07-24 Completed University 00:00:00 [facility] Influenza Virus 2016-07-24 Completed Universit y of Vaccine Quad IM 3+ 00:00:00 [facility] TDAP 2016-07-24 Completed [facility] 00:00:00 [facility] Influenza Virus 2016-07-24 Completed Universit y of Vaccine Quad IM 3+ 00:00:00 [facility] TDAP 2016-07-24 Completed [facility] 00:00:00 [facility] Influenza Virus 2016-07-24 Completed Universit y of Vaccine Quad IM 3+ 00:00:00 [facility] Tdap- (Boostrix, 2010-01-18 Completed Rosi esposito Adacel) 00:00:00 Vital Signs Vital Name Observation Time Observation Value Comments Source Systolic blood 2021-10-10 20:19:00 141 mm[Hg] Univer sity of pressure [facility] Diastolic blood 2021-10-10 20:19:00 98 mm[Hg] Unive rsity of pressure [facility] Heart rate 2021-10-10 20:19:00 109 /min Universi ty [facility] Body temperature 2021-10-10 20:19:00 36.94 Sole Univ ersity of [facility] Respiratory rate 2021-10-10 20:19:00 18 /[facility] Body height 2021-10-10 20:19:00 160 cm Universi [facility] Body weight 2021-10-10 20:19:00 [facility] 2021-10-10 20:19:00 45.17 kg/m2 [facility] Oxygen saturation in 2021-10-10 20:19:00 97 /min [facility] Arterial blood by [facility] Pulse oximetry Branch Systolic blood 2021-04-28 14:43:00 100 mm[Hg] Rosi Enriquezybfiona pressure Diastolic blood 2021-04-28 14:43:00 60 mm[Hg] Kelse y Seybold pressure Heart rate 2021-04-28 14:43:00 112 /min Rosi ballardboshabnam Body temperature 2021-04-28 14:43:00 37 Sole Agueda ey Seybold Respiratory rate 2021-04-28 14:43:00 16 /min Agueda ey Seybold Body height 2021-04-28 14:43:00 157.5 cm Rosi ballardbold Body weight 2021-04-28 14:43:00 113.853 kg Rosi ballardbold BMI 2021-04-28 14:43:00 45.91 kg/m2 Rosi Palmer eybold height 2021-03-30 10:10:00 60.75 [in_i] Common [facility] weight 2021-03-30 10:10:00 245 [lb_av] Common [facility] temperature 2021-03-30 10:10:00 97.2 [degF] Common [facility] bmi 2021-03-30 10:10:00 46.67 kg/m2 [facility] oximetry 2021-03-30 10:10:00 100 % [facility] respiratory rate 2021-03-30 10:10:00 17 /min Comm on [facility] blood pressure 2021-03-30 10:10:00 121 mm[Hg] Common [facility] - systolic [facility] blood pressure 2021-03-30 10:10:00 73 mm[Hg] Common [facility] - diastolic [facility] height 2021-02-15 16:20:00 60.75 [in_i] Common [facility] weight 2021-02-15 16:20:00 251.6 [lb_av] Common [facility] temperature 2021-02-15 16:20:00 97.3 [degF] Common [facility] bmi 2021-02-15 16:20:00 47.93 kg/m2 [facility] oximetry 2021-02-15 16:20:00 97 % [facility] respiratory rate 2021-02-15 16:20:00 18 /min Comm on [facility] blood pressure 2021-02-15 16:20:00 120 mm[Hg] Common [facility] - systolic [facility] blood pressure 2021-02-15 16:20:00 76 mm[Hg] Common [facility] - diastolic [facility] Systolic blood 2021-02-11 13:34:00 127 mm[Hg] Univer sity of pressure [facility] Diastolic blood 2021-02-11 13:34:00 87 mm[Hg] Unive rsity of pressure [facility] Heart rate 2021-02-11 13:34:00 100 /min Universi ty of [facility] Body height 2021-02-11 13:34:00 160 cm [facility] Body weight 2021-02-11 13:34:00 115.667 kg [facility] BMI 2021-02-11 13:34:00 45.17 kg/m2 [facility] height 2021-01-20 11:00:00 60.75 [in_i] [facility] weight 2021-01-20 11:00:00 255 [lb_av] Common [facility] temperature 2021-01-20 11:00:00 97.3 [degF] [facility] bmi 2021-01-20 11:00:00 48.57 kg/m2 [facility] oximetry 2021-01-20 11:00:00 98 % [facility] respiratory rate 2021-01-20 11:00:00 18 /min Comm on [facility] blood pressure 2021-01-20 11:00:00 122 mm[Hg] Common [facility] - systolic [facility] blood pressure 2021-01-20 11:00:00 68 mm[Hg] Common [facility] - diastolic [facility] height 2020-12-15 14:00:00 60.75 [in_i] [facility] weight 2020-12-15 14:00:00 258 [lb_av] [facility] temperature 2020-12-15 14:00:00 97.9 [degF] [facility] bmi 2020-12-15 14:00:00 49.15 kg/m2 [facility] oximetry 2020-12-15 14:00:00 98 % [facility] respiratory rate 2020-12-15 14:00:00 20 /min Comm on [facility] blood pressure 2020-12-15 14:00:00 118 mm[Hg] Common [facility] - systolic [facility] blood pressure 2020-12-15 14:00:00 67 mm[Hg] [facility] - diastolic [facility] Systolic (mm Hg) 2021-03-16 13:19:00 Lev rial [place] Diastolic (mm Hg) 2021-03-16 13:19:00 Mem orial [place] Heart Rate 2021-03-16 13:19:00 [facility] [place] Respitory Rate 2021-03-16 13:19:00 Memori al [place] Height 2021-03-16 13:19:00 152.4 cm [facility] [place] Weight 2021-03-16 13:19:00 [facility] [place] BMI Calculated 2021-03-16 13:19:00 Memori al [place] Systolic (mm Hg) 2021-02-01 18:35:00 Lev rial [place] Diastolic (mm Hg) 2021-02-01 18:35:00 Mem orial [place] Heart Rate 2021-02-01 18:35:00 [facility] [place] Respitory Rate 2021-02-01 18:35:00 Memori al [place] Height 2021-02-01 18:35:00 152.4 cm [facility] [place] Weight 2021-02-01 18:35:00 [facility] [place] BMI Calculated 2021-02-01 18:35:00 Memori al [place] Systolic (mm Hg) 2020-09-24 19:34:00 Lev rial [place] Diastolic (mm Hg) 2020-09-24 19:34:00 Mem orial [place] Heart Rate 2020-09-24 19:34:00 [facility] [place] Respitory Rate 2020-09-24 19:34:00 Memori al [place] Height 2020-09-24 19:34:00 160.02 cm [facility] [place] Weight 2020-09-24 19:34:00 [facility] [place] BMI Calculated 2020-09-24 19:34:00 Memori al [place] Respitory Rate 2020-02-26 16:32:00 Memori al [place] Systolic (mm Hg) 2020-02-26 16:32:00 Lev rial [place] Diastolic (mm Hg) 2020-02-26 16:32:00 Mem orial [place] Heart Rate 2020-02-26 16:00:00 [facility] [place] Respitory Rate 2020-02-26 16:00:00 Memori al [place] Systolic (mm Hg) 2020-02-26 16:00:00 Lev rial [place] Diastolic (mm Hg) 2020-02-26 16:00:00 Mem orial [place] Heart Rate 2020-02-26 15:50:00 [facility] [place] Respitory Rate 2020-02-26 15:50:00 Memori al [place] Systolic (mm Hg) 2020-02-26 15:50:00 Lev rial [place] Diastolic (mm Hg) 2020-02-26 15:50:00 Mem orial [place] Heart Rate 2020-02-26 15:40:00 [facility] [place] Temperature Oral (F) 2020-02-26 15:20:00 37.0 Sole [facility] [place] Temperature Oral (F) 2020-02-26 11:25:00 37.2 Sole [facility] [place] Height 2020-02-26 11:25:00 158 cm [facility] [place] Height 2020-02-18 16:59:00 158 cm [facility] [place] [...] Systolic (mm Hg) 2020-01-15 20:04:00 Lev rial [place] Diastolic (mm Hg) 2020-01-15 20:04:00 Mem orial [place] Heart Rate 2020-01-15 20:04:00 [facility] [place] Respitory Rate 2020-01-15 20:04:00 Memori al [place] Height 2020-01-15 20:04:00 152.4 cm [facility] [place] Weight 2020-01-15 20:04:00 [facility] [place] BMI Calculated 2020-01-15 20:04:00 Memori al [place] Systolic (mm Hg) 2019-12-02 20:40:00 Lev rial [place] Diastolic (mm Hg) 2019-12-02 20:40:00 Mem orial [place] Heart Rate 2019-12-02 20:40:00 [facility] [place] Respitory Rate 2019-12-02 20:40:00 Memori al [place] Height 2019-12-02 20:40:00 152.4 cm [facility] [place] Weight 2019-12-02 20:40:00 [facility] [place] BMI Calculated 2019-12-02 20:40:00 Memori al [place] Weight 2019-02-14 19:40:00 [facility] [place] BMI Calculated 2019-02-14 19:40:00 Memori al [place] Height 2019-02-14 19:40:00 160.02 cm [facility] [place] Respitory Rate 2019-02-14 19:40:00 Memori al [place] Heart Rate 2019-02-14 19:40:00 [facility] [place] Systolic (mm Hg) 2019-02-14 19:40:00 Lev rial [place] Diastolic (mm Hg) 2019-02-14 19:40:00 Mem orial [place] BMI Calculated 2018-12-24 20:38:00 Memori al [place] Weight 2018-12-24 20:38:00 [facility] [place] Height 2018-12-24 20:38:00 157.48 cm [facility] Systolic (mm Hg) 2018-12-24 20:38:00 Lev rial Luca Diastolic (mm Hg) 2018-12-24 20:38:00 Mem o[facility] Respitory Rate 2018-12-24 20:38:00 [facility] Heart Rate 2018-12-24 20:38:00 [facility] Height 2018-12-20 19:20:00 152.4 cm [facility] BMI Calculated 2018-12-20 19:20:00 [facility] Weight 2018-12-20 19:20:00 [facility] Systolic (mm Hg) 2018-12-20 19:20:00 Lev rial Luca Diastolic (mm Hg) 2018-12-20 19:20:00 [facility] Heart Rate 2018-12-20 19:20:00 [facility] Respitory Rate 2018-12-20 19:20:00 [facility] Systolic (mm Hg) 2018-11-22 19:23:00 [facility] Diastolic (mm Hg) 2018-11-22 19:23:00 Mem orial Luc[facility] Respitory Rate 2018-11-22 19:23:00 Carissa Redman Height 2018-11-22 19:23:00 157.48 cm Naresh Segovia Weight 2018-11-22 19:23:00 Naresh Segovia BMI Calculated 2018-11-22 19:23:00 Carissa Redman Heart Rate 2018-11-22 19:23:00 Naresh Segovia Procedures Procedure Date / Time Performing Clinician Source Performed AUTHORIZATION FOR RELEASE 2022-05-02 05:01:00 Doctor Unassigned, [facility] CONSENT/REFUSAL FOR 2021-10-10 20:09:22 Doctor Unassigned, [facility] DIAGNOSIS AND TREATMENT 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 27647 (Left)<sup>2</sup> OPEN REDUCTION INTERNAL 2020-02-26 13:13:00 Lev rial Luca FIXATION TALUS FRACTURE 98767 (Left)<sup>3</sup> [L] 2019 Novel Coronavirus 2020-02-05 00:00:00 [facility] (COVID-19), MARK [[facility]] Ortho - Surgery 2020-02-02 00:00:00 [facility] Breast reduction, Naresh Knight nn bilateral [facility] Carpal tunnel syndrome of Carissa Monteiroann right wrist Plantar fasciitis of left Carissa Monteiroann foot History of Breast [facility] reduction History of Carpal tunnel [facility] surgery Plan of Care Planned Activity Planned Date Details Comments Source Future Scheduled 2022-10-27 [facility] Test 09:26:37 screening (procedure) [code = 608815481] Future Scheduled 2022-10-27 Screening for [facility] Test 09:26:37 malignant neoplasm of cervix (procedure) [code = 306346955] Future Scheduled 2022-10-27 BREAST CANCER [facility] Test 09:26:37 SCREENING [code = BREAST CANCER SCREENING] Future Scheduled 2022-10-27 [facility] 09:26:37 SCREENING [code = COLONOSCOPY SCREENING] Future Scheduled 2022-10-27 COVID-19 VACCINE (3 [facility] Test 09:26:37 - Booster for Moderna series) [code = COVID-19 VACCINE (3 - Booster for Moderna series)] Future Scheduled 2022-10-27 [facility]ACCINE [facility] 09:26:37 [code = INFLUENZA VACCINE] Future Scheduled 2022-10-27 [facility] Test 09:26:37 screening (procedure) [code = 313826516] Future Scheduled 2022-10-27 Screening for [facility] Test 09:26:37 malignant neoplasm of cervix (procedure) [code = 316069632] Future Scheduled 2022-10-27 BREAST CANCER [facility] Test 09:26:37 SCREENING [code = BREAST CANCER SCREENING] Future Scheduled 2022-10-27 [facility] 09:26:37 SCREENING [code = COLONOSCOPY SCREENING] Future Scheduled 2022-10-27 COVID-19 VACCINE (3 [facility] Test 09:26:37 - Booster for Moderna series) [code = COVID-19 VACCINE (3 - Booster for Moderna series)] Future Scheduled 2022-10-27 [facility]ACCINE [facility] 09:26:37 [code = INFLUENZA VACCINE] Future Scheduled 2022-07-06 [facility] Test 08:29:48 screening (procedure) [code = 371138888] Future Scheduled 2022-07-06 Screening for [facility] Test 08:29:48 malignant neoplasm of cervix (procedure) [code = 677158503] Future Scheduled 2022-07-06 BREAST CANCER [facility] Test 08:29:48 SCREENING [code = BREAST CANCER SCREENING] Future Scheduled 2022-07-06 [facility] 08:29:48 SCREENING [code = COLONOSCOPY SCREENING] Future Scheduled 2022-07-06 COVID-19 VACCINE (3 [facility] Test 08:29:48 - Booster for Moderna series) [code = COVID-19 VACCINE (3 - Booster for Moderna series)] Future Scheduled 2022-07-06 INFLUENZA VACCINE [facility] Test 08:29:48 [code = INFLUENZA VACCINE] Future Scheduled 2022-04-27 HEPATITIS B VACCINES Met [facility] Test 09:25:03 (1 of 3 - 3-dose series) [code = HEPATITIS B VACCINES (1 of 3 - 3-dose series)] Future Scheduled 2022-04-27 [facility] 09:25:03 screening (procedure) [code = 430425102] Future Scheduled 2022-04-27 [facility] Test 09:25:03 malignant neoplasm of cervix (procedure) [code = 209600282] Future Scheduled 2022-04-27 BREAST CANCER [facility] Test 09:25:03 SCREENING [code = BREAST CANCER SCREENING] Future Scheduled 2022-04-27 [facility] 09:25:03 SCREENING [code = COLONOSCOPY SCREENING] Future Scheduled 2022-04-27 COVID-19 VACCINE (3 Meth [facility] Test 09:25:03 - Booster for Moderna series) [code = COVID-19 VACCINE (3 - Booster for Moderna series)] Future Scheduled 2022-04-27 INFLUENZA VACCINE Method [facility] Hospital Test 09:25:03 [code = INFLUENZA VACCINE] Future Scheduled 2022-03-30 HEPATITIS B VACCINES Met [facility] Test 16:54:14 (1 of 3 - 3-dose series) [code = HEPATITIS B VACCINES (1 of 3 - 3-dose series)] Future Scheduled 2022-03-30 [facility] 16:54:14 screening (procedure) [code = 657947626] Future Scheduled 2022-03-30 [facility] Test 16:54:14 malignant neoplasm of cervix (procedure) [code = 374743254] Future Scheduled 2022-03-30 BREAST CANCER [facility] Test 16:54:14 SCREENING [code = BREAST CANCER SCREENING] Future Scheduled 2022-03-30 [facility] 16:54:14 SCREENING [code = COLONOSCOPY SCREENING] Future Scheduled 2022-03-30 [facility]19 [facility]INE [facility] 16:54:14 - Booster for Moderna series) [code = COVID-19 VACCINE (3 - Booster for Moderna series)] Future Scheduled 2022-03-30 INFLUENZA VACCINE [facility] Test 16:54:14 [code = INFLUENZA VACCINE] Future Scheduled 2022-03-30 HEPATITIS B VACCINES Met [facility] Test 16:54:14 (1 of 3 - 3-dose series) [code = HEPATITIS B VACCINES (1 of 3 - 3-dose series)] Future Scheduled 2022-03-30 [facility] 16:54:14 screening (procedure) [code = 859850925] Future Scheduled 2022-03-30 [facility] Test 16:54:14 malignant neoplasm of cervix (procedure) [code = 387219275] Future Scheduled 2022-03-30 BREAST CANCER [facility] Test 16:54:14 SCREENING [code = BREAST CANCER SCREENING] Future Scheduled 2022-03-30 [facility] 16:54:14 SCREENING [code = COLONOSCOPY SCREENING] Future Scheduled 2022-03-30 COVID[facility]19 [facility]ACCINE [facility] 16:54:14 - Booster for Moderna series) [code = COVID-19 VACCINE (3 - Booster for Moderna series)] Future Scheduled 2022-03-30 INFLUENZA VACCINE Method [facility] Hospital Test 16:54:14 [code = INFLUENZA VACCINE] Future Scheduled 2022-03-09 HEPATITIS B VACCINES Met [facility] Test 10:28:27 (1 of 3 - 3-dose series) [code = HEPATITIS B VACCINES (1 of 3 - 3-dose series)] Future Scheduled 2022-03-09 [facility] 10:28:27 screening (procedure) [code = 705170546] Future Scheduled 2022-03-09 [facility] Test 10:28:27 malignant neoplasm of cervix (procedure) [code = 587564373] Future Scheduled 2022-03-09 BREAST CANCER [facility] Test 10:28:27 SCREENING [code = BREAST CANCER SCREENING] Future Scheduled 2022-03-09 [facility] 10:28:27 SCREENING [code = COLONOSCOPY SCREENING] Future Scheduled 2022-03-09 COVID-19 [facility]ACCINE ([facility] 10:28:27 - Booster for Moderna series) [code = COVID-19 VACCINE (3 - Booster for Moderna series)] Future Scheduled 2022-03-09 INFLUENZA VACCINE [facility] Test 10:28:27 [code = INFLUENZA VACCINE] Future Scheduled 2021-08-16 [facility] 19:56:30 screening (procedure) [code = 887881109] Future Scheduled 2021-08-16 [facility] Test 19:56:30 malignant neoplasm of cervix (procedure) [code = 087230885] Future Scheduled 2021-08-16 INFLUENZA VACCINE Method ist [...] Clinicians Facility Department ID 2022-02-21 Outpatient Garcia, [facility] [id number] Common 13:42:03 Avnee [id number] [facility] 2021-08-10 Outpatient Garcia, [facility] [id number] Common 13:49:13 Avnee 82911 [facility] 2021-08-10 Outpatient Garcia, [facility] [id number] Common 13:47:59 Avnee 03559 [facility] 2021-08-10 Outpatient Garcia, [facility] [id number] Common 13:43:00 Avnee 29844 [facility] 2021-08-10 Outpatient Garcia, [facility] [id number] Common 13:37:06 Avnee 29041 [facility] 2021-08-10 Outpatient Garcia, [facility] [id number] Common 13:23:50 Avnee 44680 [facility] 2021-08-10 Outpatient Garcia, [facility] [id number] Common 13:22:32 Avnee 83578 [facility] 2021-08-10 Outpatient AN Garcia [facility] [id number] Common 13:09:55 Avnee 35466 [facility] 2021-05-15 Outpatient Scott PERES, [facility] JOSE [id number] Univers 06:58:12 [facility] 2022-10-17 2022-10-17 Travel 1.2.840.1 1.2.363.020 [id number] Methodi 00:00:00 00:00:[address] 3.430.2.7 0.2.7.3.698 Ho spita .3.008838 084.8 l .8 2022-10-17 2022-10-17 Travel 1.2.840.1 1.2.386.993 [id number] Methodi 00:00:00 00:00:[address] 3.430.2.7 0.2.7.3.698 Ho spita .3.835892 084.8 l .8 2022-09-07 2022-09-07 Outpatient ROSI ALARCON [id number] Rosi 00:00:00 00:00:00 ALFONZO armendariz 2022-07-20 2022-07-22 Outside MHIE MNA [id number] Memoria 14:48:41 05:59:59 Medical Neurology 01 l Records Nik Segovia 2022-07-20 2022-07-22 Outside MHIE MNA [id number] Memoria 14:48:41 05:59:59 Medical Neurology 01 l Records Nik Segovia 2022-07-20 2022-07-21 Outpatient MHMISCHER MHMISCHER [id number] 08:48:41 23:59:59 2022-05-02 2022-05-02 (TEL) [facility] [id number] Co mmon 00:00:00 00:00:00 [facility] 2022-05-022022-05-02 Orders Doctor SPENSER 1.2.840.114 [id number] Univers 00:00:00 00:00:00 Only Unassigned, MARIA ELENA 350.1.13.10 ity [facility] 4.2.7.2.686 [facility] [phone] [facility] 009 Branch 2022-02-21 2022-02-21 Outpatient ROSI CAMPBELL [id number] Rosi 00:00:00 00:00:00 HAMZAH armendariz 2021-10-10 2021-10-10 [facility] [id number] Univers 15:21:00 15:42:[address] [facility] 2021-10-10 2021-10-10 Emergency [facility] 1.2.840.114 [id number] Univers 15:21:00 15:42:00 Cat DUMONT 350.1.13.[address] [facility] 4.2.7.2.686 [facility] [id number] [place] [address] Branch 2021-10-10 2021-10-10 Outpatient ROSI ALARCON [id number] Rosi 00:00:00 00:00:00 ALFONZO armendariz 2021-09-09 2021-09-11 Outside nullFlavo MNA [id number] Memoria 15:41:21 05:59:59 Medical r Neurology 00 l Records Nik Harringtonann 2021-09-09 2021-09-11 Outside nullFlavo MNA [id number] Memoria 15:41:21 05:59:59 Medical r Neurology 00 l Records Humphreysrefugio Harringtonann 2021-09-09 2021-09-10 Outpatient MHMISCHER MHMISCHER [id number] 09:41:21 23:59:59 00 2021-09-09 2021-09-09 Outpatient ROSI ALARCON [id number] Rosi 00:00:00 00:00:00 ALFONZO armendariz 2021-08-26 2021-08-26 Outpatient ROSI ALARCON [id number] Rosi 00:00:00 00:00:00 ALFONZO armendariz 2021-07-05 2021-07-05 Outpatient ROSI ALARCON [id number] Rosi 00:00:00 00:00:00 ALFONZO Seybol d 2021-07-05 2021-07-05 Outpatient ROSI ALARCON [id number] Rosi 00:00:00 00:00:00 ALFONZO Seybol d 2021-06-02 2021-06-02 Outpatient ROSI ALARCON [id number] Rosi 00:00:00 00:00:00 ALFONZO Seybol d 2021-05-23 2021-05-23 Documentat Marina, 1.2.840.1 [id number] Methodi 00:00:00 00:00:00 ion Tony Menendez50.1.[address] 3.430.2.7 Hospit a .3.764764 l .8 2021-05-18 2021-05-18 [facility] 1.2.840.1 [id number] Methodi 12:57:38 23:59:[address] 3.430.2.7 Hospit a .3.740093 l .8 2021-05-18 2021-05-18 Office Marina, 1.2.840.1 [id number] Methodi 13:15:00 15:18:57 Visit Tony Menendez50.1.[address] 3.430.2.7 Hospit a .3.848666 l .8 2021-05-18 2021-05-18 Outpatient [facility] [id number] [place] 00:00:00 00:00:[address] 2021-05-18 2021-05-18 Orders Marina, 1.2.840.1 [id number] Methodi 00:00:00 00:00:00 Only Tony Menendez50.1.[address] 3.430.2.7 Hospit a .3.588518 l .8 2021-05-16 2021-05-16 Outpatient ROSI ALARCON [id number] Rosi 00:00:00 00:00:00 ALFONZO Seybol d 2021-05-112021-05-11 Outpatient ROSI ALARCON [id number] Rosi 00:00:00 00:00:00 ALFONZO armendariz 2021-05-11 2021-05-11 Outpatient ROSI ALARCON [id number] Rosi 00:00:00 00:00:00 ALFONZO Aguila marcello 2021-04-28 2021-04-28 Office Jered Alarcon 1.2.840.114 [id number] Rosi 09:39:43 10:09:43 Visit Alfonzo Montenegro 350.1.13.13 Se russ Orantes 1.2.7.2.686 [id number] 2021-04-27 2021-04-27 Ambulatory nullFlavo MNA [id number] Memoria 15:15:00 15:15:00 Pre-Reg r Neurology 13 l Humphreys Luca 2021-04-27 2021-04-27 Ambulatory nullFlavo MNA [id number] Memoria 15:15:00 15:15:00 Pre-Reg r Neurology 13 l Nik Segovia 2021-04-27 2021-04-27 Outpatient MHIE MHIE [id number] Memoria 10:15:00 10:15:00 13 l Luca 2021-04-27 2021-04-27 Outpatient VIRGILIO Espinal MISCHER [id number] 10:15:00 10:15:00 Malcom 13 Santos 2021-04-21 2021-04-21 (TEL) STLMLC STLMLC [id number] Co mmon 00:00:00 00:00:00 [facility] 2021-04-12 2021-04-12 (TEL) STLMLC STLMLC [id number] Co mmon 00:00:00 00:00:00 [facility] 2021-04-06 2021-04-06 (TEL) STLMLC STLMLC [id number] Co mmon 00:00:00 00:00:00 [facility] 2021-03-31 2021-03-31 (TEL) STLMLC STLMLC [id number] Co mmon 00:00:00 00:00:00 [facility] 2021-03-30 2021-03-30 OFFICE STLMLC STLMLC [id number] Co mmon 00:00:00 00:00:00 VISIT EST Spir it PT LEVEL 3 [facility] 2021-03-30 2021-03-30 (TEL) [facility] STLC [id number] Co mmon 00:00:00 00:00:00 [facility] 2021-03-28 2021-03-28 Outpatient R ROYCE PRUETT [facility] [id number] Univers 10:30:00 10:30:00 ity of [facility] 2021-03-23 2021-03-23 Telephone [facility] 1.2.840.114 [id number] Univers 00:00:00 00:00:00 Ester [facility] 350.1.13.10 it y of [place] 4.2.7.2.686 [place] Sam?Blea [phone] Nh muriel [address] Medical Office [facility] 2021-03-16 2021-03-17 Outpatient nullFlavo MNA [id number] Memoria 13:15:00 04:59:59 r Neurology 12 l Nik Segovia 2021-03-16 2021-03-17 Outpatient nullFlavo MNA [id number] Memoria 13:15:00 04:59:59 r Neurology 12 l Nik Segovia 2021-03-17 2021-03-17 (TEL) [facility] STLC [id number] Co mmon 00:00:00 00:00:00 [facility] 2021-03-16 2021-03-16 Outpatient VIPUL EspinalSCHFLORA MHMISCHER [id number] 08:15:00 23:59:59 Malcomlindy Graham 2021-03-16 2021-03-16 Outpatient TYRA MARY [id number] Memoria 08:15:00 08:15:00 12 l Luca 2021-02-23 2021-02-23 OFFICE STLC STLC [id number] Co mmon 00:00:00 00:00:00 VISIT EST Spir it PT LEVEL 3 [facility] 2021-02-21 2021-02-21 (TEL) STLMLC STLMLC [id number] Co mmon 00:00:00 00:00:00 [facility] 2021-02-16 2021-02-16 (TEL) STLMLC STLMLC [id number] Co mmon 00:00:00 00:00:00 [facility] 2021-02-15 2021-02-15 OFFICE STLMLC STLMLC [id number] Co mmon 00:00:00 00:00:00 VISIT EST Spir it PT LEVEL 3 - [facility] 2021-02-11 2021-02-11 Outpatient Scott PERES [facility] [id number] Univers 08:15:00 08:56:[address] [facility] 2021-02-11 2021-02-11 Office [facility] 1.2.001.320 [id number] Univers 08:13:08 08:56:02 Visit Ester [facility] 350.1.13.10 it y of SURGICAL 4.2.7.2.686 [place] as SPECIALTI [id number] Nh dical ES [address] [place] 2021-02-10 2021-02-10 Outpatient Scott WOOD [facility] [id number] Univers 13:00:00 13:00:00 [facility] 2021-02-03 2021-02-03 [facility] [id number] Univers 10:30:00 10:30:00 [facility] 2021-02-01 2021-02-02 Outpatient nullFlavo MNA [id number] Memoria 18:30:00 04:59:59 r Neurology 11 l Nik Segovia 2021-02-01 2021-02-02 Outpatient nullFlavo MNA [id number] Memoria 18:30:00 04:59:59 r Neurology 11 l Nik Segovia 2021-02-01 2021-02-01 Outpatient VIRGILIO Espinal [id number] 13:30:00 23:59:59 Malcom Graham 2021-02-01 2021-02-01 Outpatient TYRA MARY [id number] Memoria 13:30:00 13:30:00 11 violet Segovia 2021-01-20 2021-01-20 OFFICE STLMLC STLMLC [id number] Co mmon 00:00:00 00:00:00 VISIT EST Spir it PT LEVEL 3 - [facility] 2021-01-14 2021-01-14 (TEL) STLMLC STLMLC [id number] Co mmon 00:00:00 00:00:00 [facility] 2020-12-23 2020-12-23 Outpatient Scott JAFFE [facility] [id number] Univers 10:00:00 10:00:00 DEMETRIA [facility] 2020-12-23 2020-12-23 Outpatient Scott OLSON [facility] [id number] Univers 09:00:00 09:00:00 WONDIFUL ity o f [facility] 2020-12-16 2020-12-16 Outpatient Scott WOOD [facility] [id number] Univers 10:30:00 [facility] 2020-12-15 2020-12-15 (TEL) STLMLC STLMLC [id number] Co mmon 00:00:00 00:00:00 [facility] 2020-12-15 2020-12-15 OFFICE STLMLC STLMLC [id number] Co mmon 00:00:00 00:00:00 VISIT NEW Spir it PT LEVEL 4 - [facility] 2020-12-06 2020-12-06 Outpatient Scott WOOD [facility] [id number] Univers 15:52:18 23:59:00 [facility] 2020-11-25 2020-11-25 Outpatient ROYCE DELEON [facility] [id number] Univers 09:00:00 09:00[facility]11 2020-11-11 Outpatient ROYCE DELEON [facility] [id number] Univers 15:30:00 15:30:00 [facility] 2020-11-04 2020-11-04 Outpatient Scott PHILLIPS [facility] [id number] Univers 10:00:00 10:00:[address] [facility] 2020-10-28 2020-10-28 Outpatient Scott NINA [facility] [id number] Univers 10:45:00 10:45:00 [facility] 2020-10-25 2020-10-25 Outpatient Scott NINA [facility] [id number] Univers 14:45:00 14:45:00 [facility] 2020-10-15 2020-10-15 Outpatient Scott NINA [facility] [id number] Univers 10:00:00 10:00:00 [facility] 2020-10-08 2020-10-08 Outpatient Scott PERES [facility] [id number] Univers 09:30:00 09:30:00 [facility] 2020-10-08 2020-10-08 Outpatient Scott LUGO [facility] [id number] Univers 09:15:00 09:15:00 [facility]SC[facility] 2020-09-24 2020-09-25 Outpatient nullFlavo MNA [id number] Memoria 19:00:00 05:59:59 r Neurology 10 l Nik Segovia 2020-09-24 2020-09-25 Outpatient nullFlavo MNA [id number] Memoria 19:00:00 05:59:59 r Neurology 10 l Nik Segovia 2020-09-24 2020-09-24 Outpatient VIRGILIO Espinal MISCHER [id number] 13:00:00 23:59:59 Malcom Ada Graham 2020-09-24 2020-09-24 Outpatient Scott WOOD [facility] [id number] Univers 11:58:20 23:59:00 [facility] 2020-09-24 2020-09-24 Outpatient TYRA MARY [id number] Memoria 13:00:00 13:00:00 10 l Luca 2020-09-21 2020-09-21 Outpatient Scott PERES [facility] [id number] Univers 00:00:00 00:00:00 [facility] 2020-09-09 2020-09-09 [facility] [id number] Univers 09:15:00 09:15:00 ESTER rm of [facility] 2020-09-06 2020-09-06 Ambulatory nullFlavo MNA [id number] Memoria 16:30:00 16:30:00 Pre-Reg r Neurology 09 l Humphreysrefugio Segovia 2020-09-06 2020-09-06 Ambulatory nullFlavo MNA [id number] Memoria 16:30:00 16:30:00 Pre-Reg r Neurology 09 l Humphreysrefugio Segovia 2020-09-06 2020-09-06 Outpatient MHIE MHIE [id number] Memoria 10:30:00 10:30:00 09 l Luca 2020-09-06 2020-09-06 Outpatient [id number] 10:30:00 10:30:00 Malcom 09 Santos 2020-07-14 2020-07-14 Outpatient R CHRISTIANNE [facility] [id number] Univers 19:00:00 19:00:00 BROOKE rm tiffanie zach [facility] 2020-07-02 2020-07-02 Appointmen [facility] Orthopedics [id number] [place] 14:30:00 14:30:00 t; RAJI JEAN BAPTISTE, - Sugar Phys ici RAJI, DPRaeann [place] 2 ans DPM 2020-06-01 2020-06-01 Ambulatory nullFlavo MNA [id number] Memoria 20:00:00 20:00:00 Pre-Reg r Neurology 08 l Humphreys Luca 2020-06-01 2020-06-01 Ambulatory nullFlavo MNA [id number] Memoria 20:00:00 20:00:00 Pre-Reg r Neurology 08 l Humphreys Luca 2020-06-01 2020-06-01 Outpatient MHIE MHIE [id number] Memoria 14:00:00 14:00:00 08 l [place] 2020-06-01 2020-06-01 Outpatient VIRGILIO Espinal MISCHER [id number] 14:00:00 14:00:00 Malcom 08 Santos 2020-05-31 2020-05-31 Appointmen [facility] Orthopedics [id number] [place] 10:00:00 10:00:00 t; RAJI JEAN BAPTISTE, - Sugar Phys ici RAJI, DPM [place] 2 ans DPM 2020-05-10 2020-05[facility] [id number] [place] 09:00:00 09:00:00 t; RAJI JEAN BAPTISTE, - Sugar Phys ici RAJI, DPM [place] 2 ans DPM 2020-04-27 2020-04-27 [facility] [id number] [place] 14:45:00 14:45:00 t; RAJI JEAN BAPTISTE, - Sugar Phys ici RAJI, DPM Land 2 ans DPM 2020-03-29 2020-03-29 [facility] [id number] [place] 13:00:00 13:00:00 t; RAJI JEAN BAPTISTE, - Sugar Phys ici RAJI, DPM Land 2 ans DPM 2020-03-08 2020-03-08 [facility] [id number] [place] 11:15:00 11:15:00 t; RAJI JEAN BAPTISTE, - Sugar Phys ici RAJI, DPM Land 2 ans DPM 2020-02-26 2020-02-26 [facility] [id number] [facility] 10:46:09 16:30:00 [facility] 2020-02-26 2020-02-26 [facility]patient [facility] [id number] [facility] 10:46:09 16:30:00 [facility] 2020-02-26 2020-02-26 Outpatient [facility] [id number] Mem[place] 05:46:09 11:30:00 r [facility] 2020-02-26 2020-02-26 Outpatient Markel, [id number] 05:46:09 11:30:00 Raji 8 2020-02-26 2020-02-26 [facility] [id number] [place] 10:30:00 10:30:00 t; RAJI JEAN BAPTISTE, - Sugar Phys ici RAJI, DPM Land 2 ans DPM 2020-02-02 2020-02-02 [facility] [id number] [place] 10:45:00 10:45:00 t; RAJI JEAN BAPTISTE, - Sugar Phys ici RAJI, [facility] [place] 2 ans DPM 2020-01-15 2020-01-16 Outpatient nullFlavo MNA [id number] Memoria 20:00:00 04:59:59 r Neurology 07 l Humphreys Luc[place] 2020-01-15 2020-01-16 Outpatient nullFlavo MNA [id number] Memoria 20:00:00 04:59:59 r Neurology 07 l Humphreys [place] 2020-01-15 2020-01-15 [id number] 15:00:00 23:59:59 Malcom 07 Santos 2020-01-15 2020-01-15 Ambulatory nullFlavo MNA [id number] Memoria 20:00:00 20:00:00 Pre-Reg r Neurology 06 l Humphreys [place] 2020-01-15 2020-01-15 Ambulatory nullFlavo MNA [id number] Memoria 20:00:00 20:00:00 Pre-Reg r Neurology 06 l Nik Segovia 2020-01-15 2020-01-15 Outpatient MHIE MHIE [id number] Memoria 15:00:00 15:00:00 06 l [place] 2020-01-15 2020-01-15 Outpatient MHIE MHIE [id number] Memoria 15:00:00 15:00:00 07 l Luc[place] 2020-01-15 2020-01-15 Outpatient [facility] [id number] 15:00:00 15:00:00 Malcom 06 Santos 2019-12-02 2019-12-03 Outpatient nullFlavo MNA [id number] Memoria 20:30:00 04:59:59 r Neurology 05 l Humphreys [place] 2019-12-02 2019-12-03 Outpatient nullFlavo MNA [id number] Memoria 20:30:00 04:59:59 r Neurology 05 l Humphreys Luc[place] 2019-12-02 2019-12-02 Outpatient VIPUL EspinalSCHER MISCHER [id number] 15:30:00 23:59:59 Malcom 05 Santos 2019-12-02 2019-12-02 Outpatient MHIE MHIE [id number] Memoria 15:30:00 15:30:00 05 violet Segovia 2019-05-23 2019-05-23 Ambulatory nullFlavo MNA [id number] Memoria 19:15:00 19:15:00 Pre-Reg r Neurology 04 l Nik Segovia 2019-05-23 2019-05-23 Ambulatory nullFlavo MNA [id number] Memoria 19:15:00 19:15:00 Pre-Reg r Neurology 04 l Nik Segovia 2019-05-23 2019-05-23 Outpatient MHPUNEET MARY [id number] Memoria 13:15:00 13:15:00 04 violet [place] 2019-05-23 2019-05-23 Outpatient VIRGILIO Espinal [facility] [id number] 13:15:00 13:15:00 Malcom Connor Santos 2019-03-23 2019-03-23 Emergency Harish, [facility] [id number] 12:37:57 13:11:00 Palomo Dumont [id number] [place] [id number] [place] [id number] [facility] 2019-03-23 2019-03-23 Orders Doctor SPENSER [id number] 00:00:00 00:00:00 Only Unassigned, MARIA ELENA [id number] [facility] [id number] [id number] [facility] 2019-02-14 2019-02-15 Outpatient nullFlavo MNA [id number] Memoria 20:00:00 04:59:59 r Neurology 02 l Nik Harringtonann 2019-02-14 2019-02-15 Outpatient nullFlavo MNA [id number] Memoria 20:00:00 04:59:59 r Neurology 02 l Humphreys [place] 2019-02-14 2019-02-14 Outpatient VIRGILIO Espinal [facility] [id number] 15:00:00 23:59:59 Mlacom Serge Graham 2019-02-14 2019-02-14 Outpatient MHIE PUNEET [id number] Memoria 15:00:00 15:00:00 02 violet Har[place] 2018-12-24 2018-12-25 Outpatient nullFlavo MNA [id number] Memoria 20:15:00 04:59:59 r Neurology 03 l Humphreys [place] 2018-12-24 2018-12-25 Outpatient nullFlavo MNA [id number] Memoria 20:15:00 04:59:59 r Neurology 03 l Nik Segovia 2018-12-24 2018-12-24 Outpatient DIMA EspinalRISCHER MISCHER [id number] 15:15:00 23:59:59 Malcom 03 Santos 2018-12-24 2018-12-24 Outpatient MHIE MHIE [id number] Memoria 15:15:00 15:15:00 03 violet [place] 2018-12-20 2018-12-21 Outpatient nullFlavo MNA [id number] Memoria 18:45:00 04:59:59 r Neurology 01 l Nik Segovia 2018-12-20 2018-12-21 Outpatient nullFlavo MNA [id number] Memoria 18:45:00 04:59:59 r Neurology 01 l Nik Segovia 2018-12-20 2018-12-20 Outpatient D[facility] [id number] 13:45:00 23:59:59 Malcom Santos 2018-12-20 2018-12-20 Outpatient MHIE MHIE [id number] Memoria 13:45:00 13:45:00 01 violet [place] 2018-11-22 2018-11-23 Outpatient nullFlavo MNA [id number] Memoria 19:45:00 04:59:59 r Neurology 00 l Nik Harringtonann 2018-11-22 2018-11-23 Outpatient nullFlavo MNA [id number] Memoria 19:45:00 04:59:59 r Neurology 00 l Humphreys [place] 2018-11-22 2018-11-22 Outpatient DIMA EspinalRISCHER MISCHER [id number] 14:45:00 23:59:59 Malcom 00 Santos 2018-11-22 2018-11-22 Outpatient MHIE MHIE [id number] Memoria 14:45:00 14:45:00 00 violet Segovia Results Test Description Test Time Test Comments Results Result Comments Source LABORATORY 2020-02-18 17:38:00 Test Item Value Reference Range Interpretation Comme nts Chloride Level (test code = Chloride Level) 108 95-109 [facility]WRCMRZIGJF5778-99-13 17:38:00 Test Item Value Reference Range Interpretation Comments Total Carbon Dioxide Level (test code = 24 24-32 Total Carbon Dioxide Level) [facility] HospitalFwcxwswZJUXCBBVHA1987-78-49 17:38:00 Test Item Value Reference Range Interpretation Comments AGAP (test code = AGAP) 13.5 10.0-20.0 [place] [address]-08-05 17:38:00 Test Item Value Reference Range Interpretation Comments Calcium Level (test code = Calcium 9.5 8.5-10.5 Level) [place] 859920-08-05 17:38:00 Test Item Value Reference Range Interpretation Comments eGFR (test code = eGFR) 92 [place] 859920-08-05 17:38:00 Test Item Value Reference Range Interpretation Comments Results (test code = Reported (02/18/20 12:38 Results) PM) [address]08-05 17:38:00 Test Item Value Reference Range Interpretation Comments White Blood Count (test code = White 6.4 3.7-10.4 Blood Count) [place] 859920-08-05 17:38:00 Test Item Value Reference Range Interpretation Comments Red Blood Cell Count (test code = Red 4.37 4.20-5.40 Blood Cell Count) [place] 859920-08-05 17:38:00 Test Item Value Reference Range Interpretation Comments Hemoglobin (test code = Hemoglobin) 12.7 12.0-16.0 [place] [address]-08-05 17:38:00 Test Item Value Reference Range Interpretation Comments Hematocrit (test code = Hematocrit) 38.3 36.0-48.0 [place] 859920-08-05 17:38:00 Test Item Value Reference Range Interpretation Comments MCV (test code = MCV) 87.5 80.0-98.0 [place] [address]-08-05 17:38:00 Test Item Value Reference Range Interpretation Comments MCH (test code = MCH) 29.2 pg 27.0-31.0 [place] 859920-08-05 17:38:00 Test Item Value Reference Range Interpretation Comments MCHC (test code = MCHC) 33.3 32.0-36.0 [place] 859920-08-05 17:38:00 Test Item Value Reference Range Interpretation Comments RDW (test code = RDW) 14.2 11.5-14.5 [facility] HospitalYzilopwHDTCEYSKZI6652-20-44 17:38:00 Test Item Value Reference Range Interpretation Comments Platelet (test code = Platelet) 300 133-450 [facility] HospitalLsnycuzCPGCJHNRWY5692-98-01 17:38:00 Test Item Value Reference Range Interpretation Comments MPV (test code = MPV) 8.3 7.4-10.4 [facility] HospitalByvaosrNCDYQNUSZT8996-84-28 17:38:00 Test Item Value Reference Range Interpretation Comments NRBCs # (test code = NRBCs #) 0.1 0.4-2.2 [facility] HospitalFegibthAHVQFMCGZC9216-87-60 17:38:00 Test Item Value Reference Range Interpretation Comments Results (test code = Reported (02/18/20 12:38 Results) PM) [facility] HospitalSalnierSYUUHNMFRF4480-66-57 17:38:00 Test Item Value Reference Range Interpretation Comments Neutrophil % (test code = Neutrophil %) 62.2 45.0-75.0 [facility] HospitalQazfmspWGJUDLSISL9174-60-47 17:38:00 Test Item Value Reference Range Interpretation Comments Monocyte % (test code = Monocyte %) 6.8 2.0-12.0 [facility] HospitalPnxekhhCQBCOIWXOV2753-83-76 17:38:00 Test Item Value Reference Range Interpretation Comments Lymphocyte % (test code = Lymphocyte %) 26.9 20.0-40.0 [facility] HospitalEcyolgoNUQRMQECNI7666-03-77 17:38:00 Test Item Value Reference Range Interpretation Comments Eosinophil # (test code 3.6 See_Comment [Au tomated message] The = Eosinophil #) system which generated this result tra nsmitted reference range : <=4.0. The reference r karan was not used to int erpret this result as normal/abnormal . [facility] HospitalQimepapNIWVYDKNYG8988-87-92 17:38:00 Test Item Value Reference Range Interpretation Comments Basophil % (test code = 0.5 See_Comment [Au tomated message] The Basophil %) system which ge nerated this result tra nsmitted reference range : <=1.0. The reference r karan was not used to int erpret this result as normal/abnormal . [facility] HospitalBdkueasJCTQHZXAMF9963-28-66 17:38:00 Test Item Value Reference Range Interpretation Comments Neutrophil # (test code = Neutrophil #) 4.0 1.5-8.1 [facility] HospitalJoujkjhYLDHJBPIPJ3148-68-13 17:38:00 Test Item Value Reference Range Interpretation Comments Lymphocyte # (test code = Lymphocyte #) 1.7 1.0-5.5 [facility] HospitalJpkkehyLUTSPONYVK0579-49-60 17:38:00 Test Item Value Reference Range Interpretation Comments Monocyte # (test code = 0.4 See_Comment [Au tomated message] The Monocyte #) system which ge nerated this result tra nsmitted reference range : <=0.8. The reference r karan was not used to int erpret this result as normal/abnormal . [facility] HospitalFyziansLEWSDVCKCU0830-46-46 17:38:00 Test Item Value Reference Range Interpretation Comments Eosinophil % (test code 0.2 See_Comment [Au tomated message] The = Eosinophil %) system which generated this result tra nsmitted reference range : <=0.5. The reference r karan was not used to int erpret this result as normal/abnormal . [facility] HospitalZyztwzkKEYECSZMXP0136-99-60 17:38:00 Test Item Value Reference Range Interpretation Comments Results (test code = Reported (02/18/20 12:38 Results) PM) [place] [address]-08-05 17:38:00 Test Item Value Reference Range Interpretation Comments Glucose Lvl (test code = Glucose Lvl) 89 70-99 [facility] HospitalZwshxksMOGEFFIJLA3902-12-74 17:38:00 Test Item Value Reference Range Interpretation Comments BUN (test code = BUN) 12 7-22 [facility] HospitalVcxfoirIMMQBAYYUQ8302-64-98 17:38:00 Test Item Value Reference Range Interpretation Comments Creatinine (test code = Creatinine) 0.79 0.50-1.40 [place] 859920-08-05 17:38:00 Test Item Value Reference Range Interpretation Comments Sodium Level (test code = Sodium Level) 141 135-145 [facility] HospitalXaqomwnQRIEJYZRUC5367-04-93 17:38:00 Test Item Value Reference Range Interpretation Comments Potassium Level (test code = Potassium 4.5 3.5-5.1 Level) [facility] HospitalAkrgrckQNPQSOSZKV3114-98-88 17:38:00 Test Item Value Reference Range Interpretation Comments Chloride Level (test code = Chloride 108 95-109 Level) [facility] HospitalLcpnonqXRBVIEPXTW9284-13-08 17:38:00 Test Item Value Reference Range Interpretation Comments Total Carbon Dioxide Level (test code = 24 24-32 Total Carbon Dioxide Level) [place] [address]-08-05 17:38:00 Test Item Value Reference Range Interpretation Comments AGAP (test code = AGAP) 13.5 10.0-20.0 [facility] HospitalHxysrgaKQMYMBYZAA5174-99-33 17:38:00 Test Item Value Reference Range Interpretation Comments Calcium Level (test code = Calcium 9.5 8.5-10.5 Level) [place] 859920-08-05 17:38:00 Test Item Value Reference Range Interpretation Comments eGFR (test code = eGFR) 92 [place] 859920-08-05 17:38:00 Test Item Value Reference Range Interpretation Comments Results (test code = Reported (02/18/20 12:38 Results) PM) [facility] HospitalWbmmwaiQPPHLXYNEY2235-73-01 17:38:00 Test Item Value Reference Range Interpretation Comments White Blood Count (test code = White 6.4 3.7-10.4 Blood Count) [place] 859920-08-05 17:38:00 Test Item Value Reference Range Interpretation Comments Red Blood Cell Count (test code = Red 4.37 4.20-5.40 Blood Cell Count) [facility] HospitalUcgmbjoASTAQJPNJB2023-99-63 17:38:00 Test Item Value Reference Range Interpretation Comments Hemoglobin (test code = Hemoglobin) 12.7 12.0-16.0 [facility] HospitalJoysnzbNDTVNICZDF8170-39-42 17:38:00 Test Item Value Reference Range Interpretation Comments Hematocrit (test code = Hematocrit) 38.3 36.0-48.0 [place] [address]-08-05 17:38:00 Test Item Value Reference Range Interpretation Comments MCV (test code = MCV) 87.5 80.0-98.0 [address]08-05 17:38:00 Test Item Value Reference Range Interpretation Comments MCH (test code = MCH) 29.2 pg 27.0-31.0 [place] 859920-08-05 17:38:00 Test Item Value Reference Range Interpretation Comments MCHC (test code = MCHC) 33.3 32.0-36.0 [place] [address]-08-05 17:38:00 Test Item Value Reference Range Interpretation Comments RDW (test code = RDW) 14.2 11.5-14.5 [facility] HospitalStarnyyNKEKNFSOBJ4985-20-22 17:38:00 Test Item Value Reference Range Interpretation Comments Platelet (test code = Platelet) 300 133-450 [facility] HospitalHxxliqdKFQAVBEHUY3218-72-61 17:38:00 Test Item Value Reference Range Interpretation Comments MPV (test code = MPV) 8.3 7.4-10.4 [facility] HospitalSmszybcWSDQFZTOKB3155-93-68 17:38:00 Test Item Value Reference Range Interpretation Comments NRBCs # (test code = NRBCs #) 0.1 0.4-2.2 [facility] HospitalAndfebpWZAUOZLGIT4328-93-80 17:38:00 Test Item Value Reference Range Interpretation Comments Results (test code = Reported (02/18/20 12:38 Results) PM) [facility] HospitalWfywzyfSOCBZVQXKP2095-75-25 17:38:00 Test Item Value Reference Range Interpretation Comments Neutrophil % (test code = Neutrophil %) 62.2 45.0-75.0 [facility] HospitalDuclhlwUGJWOTLSFP1159-18-84 17:38:00 Test Item Value Reference Range Interpretation Comments Monocyte % (test code = Monocyte %) 6.8 2.0-12.0 [facility] HospitalEnfmdwsKSXBIBEUTS4015-84-75 17:38:00 Test Item Value Reference Range Interpretation Comments Lymphocyte % (test code = Lymphocyte %) 26.9 20.0-40.0 [facility] HospitalWwujhsvEUVFHJNBKC6950-97-50 17:38:00 Test Item Value Reference Range Interpretation Comments Eosinophil # (test code 3.6 See_Comment [Au tomated message] The = Eosinophil #) system which generated this result tra nsmitted reference range : <=4.0. The reference r karan was not used to int erpret this result as normal/abnormal . [facility] HospitalNiqlbioUTGWMPKUGK1729-26-03 17:38:00 Test Item Value Reference Range Interpretation Comments Basophil % (test code = 0.5 See_Comment [Au tomated message] The Basophil %) system which ge nerated this result tra nsmitted reference range : <=1.0. The reference r karan was not used to int erpret this result as normal/abnormal . [facility] HospitalDkytlgsZPXDOYGSFU3503-86-68 17:38:00 Test Item Value Reference Range Interpretation Comments Neutrophil # (test code = Neutrophil #) 4.0 1.5-8.1 [facility] HospitalJqgwvoiGNUTQHZVQO2236-87-63 17:38:00 Test Item Value Reference Range Interpretation Comments Lymphocyte # (test code = Lymphocyte #) 1.7 1.0-5.5 [facility] HospitalSzrqvxqWFVCRDXKOX9734-85-67 17:38:00 Test Item Value Reference Range Interpretation Comments Monocyte # (test code = 0.4 See_Comment [Au tomated message] The Monocyte #) system which ge nerated this result tra nsmitted reference range : <=0.8. The reference r karan was not used to int erpret this result as normal/abnormal . [facility] HospitalLpnjsitUDEZZQJGFM5827-79-44 17:38:00 Test Item Value Reference Range Interpretation Comments Eosinophil % (test code 0.2 See_Comment [Au tomated message] The = Eosinophil %) system which generated this result tra nsmitted reference range : <=0.5. The reference r karan was not used to int erpret this result as normal/abnormal . [facility] HospitalImptmotGMOBMZCCQC9606-88-21 17:38:00 Test Item Value Reference Range Interpretation Comments Results (test code = Reported (02/18/20 12:38 Results) PM) [facility] HospitalHdaassyGQWMHDHLBP2940-96-00 17:38:00 Test Item Value Reference Range Interpretation Comments Glucose Lvl (test code = Glucose Lvl) 89 70-99 [facility] HospitalAzpytnbRLXRSAELAR5514-61-25 17:38:00 Test Item Value Reference Range Interpretation Comments BUN (test code = BUN) 12 7-22 [facility] HospitalUjyjoygNBNBWKTDXC2585-27-93 17:38:00 Test Item Value Reference Range Interpretation Comments Creatinine (test code = Creatinine) 0.79 0.50-1.40 [facility] HospitalKwdmotnLNJZFFUGIG8301-90-47 17:38:00 Test Item Value Reference Range Interpretation Comments Sodium Level (test code = Sodium Level) 141 135-145 [facility] HospitalMraqnijOBIREHTLFD8998-63-24 17:38:00 Test Item Value Reference Range Interpretation Comments Potassium Level (test code = Potassium 4.5 3.5-5.1 Level) [facility] HospitalWtoxokiDFMQOBFMES2047-49-60 17:38:00 Test Item Value Reference Range Interpretation Comments Chloride Level (test code = Chloride 108 95-109 Level) [place] 859920-08-05 17:38:00 Test Item Value Reference Range Interpretation Comments Total Carbon Dioxide Level (test code = 24 24-32 Total Carbon Dioxide Level) [address]08-05 17:38:00 Test Item Value Reference Range Interpretation Comments AGAP (test code = AGAP) 13.5 10.0-20.0 [address]08-05 17:38:00 Test Item Value Reference Range Interpretation Comments Calcium Level (test code = Calcium 9.5 8.5-10.5 Level) [address]08-05 17:38:00 Test Item Value Reference Range Interpretation Comments eGFR (test code = eGFR) [address]08-05 17:38:00 Test Item Value Reference Range Interpretation Comments Results (test code = Reported (02/18/20 12:38 Results) PM) [address]08-05 17:38:00 Test Item Value Reference Range Interpretation Comments White Blood Count (test code = White 6.4 3.7-10.4 Blood Count) [address]08-05 17:38:00 Test Item Value Reference Range Interpretation Comments Red Blood Cell Count (test code = Red 4.37 4.20-5.40 Blood Cell Count) [address]08-05 17:38:00 Test Item Value Reference Range Interpretation Comments Hemoglobin (test code = Hemoglobin) 12.7 12.0-16.[address]08-05 17:38:00 Test Item Value Reference Range Interpretation Comments Hematocrit (test code = Hematocrit) 38.3 36.0-48.[address]08-05 17:38:00 Test Item Value Reference Range Interpretation Comments MCV (test code = MCV) 87.5 80.0-98.0 [address]08-05 17:38:00 Test Item Value Reference Range Interpretation Comments MCH (test code = MCH) 29.2 pg 27.0-31.[address]08-05 17:38:00 Test Item Value Reference Range Interpretation Comments MCHC (test code = MCHC) 33.3 32.0-36.0 [facility] HospitalZxfkwtcLJAOSMZVWZ1490-73-86 17:38:00 Test Item Value Reference Range Interpretation Comments RDW (test code = RDW) 14.2 11.5-14.5 [facility] HospitalHzvisfpEFGMWTREDJ2624-64-30 17:38:00 Test Item Value Reference Range Interpretation Comments Platelet (test code = Platelet) 300 133-450 [facility] HospitalLdtqaewMTTGKEDONM1161-48-14 17:38:00 Test Item Value Reference Range Interpretation Comments MPV (test code = MPV) 8.3 7.4-10.4 [facility] HospitalAdfsggzDHVCIBUMRM4133-57-37 17:38:00 Test Item Value Reference Range Interpretation Comments NRBCs # (test code = NRBCs #) 0.1 0.4-2.2 [facility] HospitalZkzvvpxPSTYYSCWDO7302-50-85 17:38:00 Test Item Value Reference Range Interpretation Comments Results (test code = Reported (02/18/20 12:38 Results) PM) [facility] HospitalDhzvzsfTTAGUHZNDQ6337-72-83 17:38:00 Test Item Value Reference Range Interpretation Comments Neutrophil % (test code = Neutrophil %) 62.2 45.0-75.0 [facility] HospitalFvsuirgRQODPIAJAP5135-37-48 17:38:00 Test Item Value Reference Range Interpretation Comments Monocyte % (test code = Monocyte %) 6.8 2.0-12.0 [facility] HospitalNytmmpzDXRQVVGDFU9657-28-36 17:38:00 Test Item Value Reference Range Interpretation Comments Lymphocyte % (test code = Lymphocyte %) 26.9 20.0-40.0 [facility] HospitalRydtbzsWINCSXADOK1476-79-72 17:38:00 Test Item Value Reference Range Interpretation Comments Eosinophil # (test code 3.6 See_Comment [Au tomated message] The = Eosinophil #) system which generated this result tra nsmitted reference range : <=4.0. The reference r karan was not used to int erpret this result as normal/abnormal . [facility] HospitalUlvkjovMONWGGARKB0350-59-00 17:38:00 Test Item Value Reference Range Interpretation Comments Basophil % (test code = 0.5 See_Comment [Au tomated message] The Basophil %) system which ge nerated this result tra nsmitted reference range : <=1.0. The reference r karan was not used to int erpret this result as normal/abnormal . [facility] HospitalDwudozbDKTZZYWPRR2594-77-49 17:38:00 Test Item Value Reference Range Interpretation Comments Neutrophil # (test code = Neutrophil #) 4.0 1.5-8.1 [facility] HospitalSltgjfhINMYOTPAFL5521-52-93 17:38:00 Test Item Value Reference Range Interpretation Comments Lymphocyte # (test code = Lymphocyte #) 1.7 1.0-5.5 [facility] HospitalHsovatkJJYIDTAUED2452-93-72 17:38:00 Test Item Value Reference Range Interpretation Comments Monocyte # (test code = 0.4 See_Comment [Au tomated message] The Monocyte #) system which ge nerated this result tra nsmitted reference range : <=0.8. The reference r karan was not used to int erpret this result as normal/abnormal . [facility] HospitalQtfekfeBAFFNPCXHH2784-39-56 17:38:00 Test Item Value Reference Range Interpretation Comments Eosinophil % (test code 0.2 See_Comment [Au tomated message] The = Eosinophil %) system which generated this result tra nsmitted reference range : <=0.5. The reference r karan was not used to int erpret this result as normal/abnormal . [facility] HospitalWuaijsiQWFEMTAIBZ8822-76-53 17:38:00 Test Item Value Reference Range Interpretation Comments Results (test code = Reported (02/18/20 12:38 Results) PM) [facility] HospitalAruraraPUHFOXZLED8175-86-17 17:38:00 Test Item Value Reference Range Interpretation Comments Glucose Lvl (test code = Glucose Lvl) 89 70-99 [facility] HospitalHtfyfrcKXEOBMFXCN5727-72-19 17:38:00 Test Item Value Reference Range Interpretation Comments BUN (test code = BUN) 12 7-22 [facility] HospitalHhdvdjrXFUOZHYXMZ3913-29-63 17:38:00 Test Item Value Reference Range Interpretation Comments Creatinine (test code = Creatinine) 0.79 0.50-1.40 [facility] HospitalChqdnbnOLGPFKVRVD2897-56-61 17:38:00 Test Item Value Reference Range Interpretation Comments Sodium Level (test code = Sodium Level) 141 135-145 [facility] HospitalMlkphwlUYMNKLIAQS9654-68-38 17:38:00 Test Item Value Reference Range Interpretation Comments Potassium Level (test code = Potassium 4.5 3.5-5.1 Level) [facility] HospitalQumsjipLHVWRCCZUB9992-44-96 17:38:00 Test Item Value Reference Range Interpretation Comments Chloride Level (test code = Chloride 108 95-109 Level) [facility] HospitalBuqohlmVUWQXUSMEL3487-60-27 17:38:00 Test Item Value Reference Range Interpretation Comments Total Carbon Dioxide Level (test code = 24 24-32 Total Carbon Dioxide Level) [facility] HospitalKiibcvrJVDMVGBIWV5554-42-47 17:38:00 Test Item Value Reference Range Interpretation Comments AGAP (test code = AGAP) 13.5 10.0-20.0 [place] 859920-08-05 17:38:00 Test Item Value Reference Range Interpretation Comments Calcium Level (test code = Calcium 9.5 8.5-10.5 Level) [facility] HospitalBtznzykQSZUHCCMDC3944-95-80 17:38:00 Test Item Value Reference Range Interpretation Comments eGFR (test code = eGFR) 92 [facility] HospitalHycykgfHBRGMAQFAB6077-03-69 17:38:00 Test Item Value Reference Range Interpretation Comments Results (test code = Reported (02/18/20 12:38 Results) PM) [facility] HospitalLyfchatNJQKOSLDFC2614-22-05 17:38:00 Test Item Value Reference Range Interpretation Comments White Blood Count (test code = White 6.4 3.7-10.4 Blood Count) [facility] HospitalXczpywmKLQYBMEWQW6858-88-23 17:38:00 Test Item Value Reference Range Interpretation Comments Red Blood Cell Count (test code = Red 4.37 4.20-5.40 Blood Cell Count) [facility]PauawsoYRGPMLILTK4257-51-39 17:38:00 Test Item Value Reference Range Interpretation Comments Hemoglobin (test code = Hemoglobin) 12.7 12.0-16.0 [place] [address]-08-05 17:38:00 Test Item Value Reference Range Interpretation Comments Hematocrit (test code = Hematocrit) 38.3 36.0-48.0 [place] [address]-08-05 17:38:00 Test Item Value Reference Range Interpretation Comments MCV (test code = MCV) 87.5 80.0-98.0 [place] 859920-08-05 17:38:00 Test Item Value Reference Range Interpretation Comments MCH (test code = MCH) 29.2 pg 27.0-31.0 [facility] 17:38:00 Test Item Value Reference Range Interpretation Comments MCHC (test code = MCHC) 33.3 32.0-36.0 [facility] HospitalUsvqqsjIABLIARQSF0329-95-06 17:38:00 Test Item Value Reference Range Interpretation Comments RDW (test code = RDW) 14.2 11.5-14.5 [facility] HospitalKpgfmykNEFNOVWRJR4274-51-91 17:38:00 Test Item Value Reference Range Interpretation Comments Platelet (test code = Platelet) 300 133-450 [facility] HospitalKhpaqrgXCZAAMMQZN8018-36-48 17:38:00 Test Item Value Reference Range Interpretation Comments MPV (test code = MPV) 8.3 7.4-10.4 [facility] HospitalSrzfrouIBZDVBUYLB7327-68-28 17:38:00 Test Item Value Reference Range Interpretation Comments NRBCs # (test code = NRBCs #) 0.1 0.4-2.2 [facility] HospitalUxqqtotDICKOBQQJY3898-50-67 17:38:00 Test Item Value Reference Range Interpretation Comments Results (test code = Reported (02/18/20 12:38 Results) PM) [facility] HospitalAmzevpyCKVQAKBULG1282-90-62 17:38:00 Test Item Value Reference Range Interpretation Comments Neutrophil % (test code = Neutrophil %) 62.2 45.0-75.0 [facility] HospitalAxtuilxEANCQHJZMP9965-18-73 17:38:00 Test Item Value Reference Range Interpretation Comments Monocyte % (test code = Monocyte %) 6.8 2.0-12.0 [facility] HospitalDgcmzupWFRIYRRFGM9500-41-80 17:38:00 Test Item Value Reference Range Interpretation Comments Lymphocyte % (test code = Lymphocyte %) 26.9 20.0-40.0 [facility] HospitalBbmxulqBPXYBWJCXQ3059-58-03 17:38:00 Test Item Value Reference Range Interpretation Comments Eosinophil # (test code 3.6 See_Comment [Au tomated message] The = Eosinophil #) system which generated this result tra nsmitted reference range : <=4.0. The reference r karan was not used to int erpret this result as normal/abnormal . [facility] HospitalRoweqsoVGULWMWSJL9106-84-58 17:38:00 Test Item Value Reference Range Interpretation Comments Basophil % (test code = 0.5 See_Comment [Au tomated message] The Basophil %) system which ge nerated this result tra nsmitted reference range : <=1.0. The reference r karan was not used to int erpret this result as normal/abnormal . [facility] HospitalQeoskaaVEYPSQHQEE1688-44-78 17:38:00 Test Item Value Reference Range Interpretation Comments Neutrophil # (test code = Neutrophil #) 4.0 1.5-8.1 [facility] HospitalCvzepemUWSGZAURJF8448-76-31 17:38:00 Test Item Value Reference Range Interpretation Comments Lymphocyte # (test code = Lymphocyte #) 1.7 1.0-5.5 [facility] HospitalFvbtrsiCPBXWJIDEJ5544-53-54 17:38:00 Test Item Value Reference Range Interpretation Comments Monocyte # (test code = 0.4 See_Comment [Au tomated message] The Monocyte #) system which ge nerated this result tra nsmitted reference range : <=0.8. The reference r karan was not used to int erpret this result as normal/abnormal . [facility] HospitalYqlggoiGUNZCHFTUF9874-29-29 17:38:00 Test Item Value Reference Range Interpretation Comments Eosinophil % (test code 0.2 See_Comment [Au tomated message] The = Eosinophil %) system which generated this result tra nsmitted reference range : <=0.5. The reference r karan was not used to int erpret this result as normal/abnormal . [facility] HospitalYifvxxvHFDWTGJHCU8358-90-11 17:38:00 Test Item Value Reference Range Interpretation Comments Results (test code = Reported (02/18/20 12:38 Results) PM) [facility] HospitalJlwgkntYZZITHQZPL1271-80-25 17:38:00 Test Item Value Reference Range Interpretation Comments Glucose Lvl (test code = Glucose Lvl) 89 70-99 [facility] HospitalSwuqnukJRKWIPWWDN8757-63-29 17:38:00 Test Item Value Reference Range Interpretation Comments BUN (test code = BUN) 12 7- [facility] HospitalZnekuljLBOUEFPBYA6580-73-73 17:38:00 Test Item Value Reference Range Interpretation Comments Creatinine (test code = Creatinine) 0.79 0.50-1.40 [facility] HospitalXknxpvaMVWXVNOLZA3168-15-36 17:38:00 Test Item Value Reference Range Interpretation Comments Sodium Level (test code = Sodium Level) 141 135-145 [place] [address]-08-05 17:38:00 Test Item Value Reference Range Interpretation Comments Potassium Level (test code = Potassium 4.5 3.5-5.1 Level) [place] [address]-08-05 17:38:00 Test Item Value Reference Range Interpretation Comments Chloride Level (test code = Chloride 108 95-109 Level) [address]08-05 17:38:00 Test Item Value Reference Range Interpretation Comments Total Carbon Dioxide Level (test code = 24 24-32 Total Carbon Dioxide Level) [address]08-05 17:38:00 Test Item Value Reference Range Interpretation Comments AGAP (test code = AGAP) 13.5 10.0-20.[address]08-05 17:38:00 Test Item Value Reference Range Interpretation Comments Calcium Level (test code = Calcium 9.5 8.5-10.5 Level) [address]08-05 17:38:00 Test Item Value Reference Range Interpretation Comments eGFR (test code = eGFR) 92 [place] [address]-08-05 17:38:00 Test Item Value Reference Range Interpretation Comments Results (test code = Reported (02/18/20 12:38 Results) PM) [address]08-05 17:38:00 Test Item Value Reference Range Interpretation Comments White Blood Count (test code = White 6.4 3.7-10.4 Blood Count) [address]08-05 17:38:00 Test Item Value Reference Range Interpretation Comments Red Blood Cell Count (test code = Red 4.37 4.20-5.40 Blood Cell Count) [address]08-05 17:38:00 Test Item Value Reference Range Interpretation Comments Hemoglobin (test code = Hemoglobin) 12.7 12.0-16.0 [place] [address]-08-05 17:38:00 Test Item Value Reference Range Interpretation Comments Hematocrit (test code = Hematocrit) 38.3 36.0-48.0 [address]08-05 17:38:00 Test Item Value Reference Range Interpretation Comments MCV (test code = MCV) 87.5 80.0-98.0 [facility] HospitalCdkplgoQYFYGHFJLG5394-80-32 17:38:00 Test Item Value Reference Range Interpretation Comments MCH (test code = MCH) 29.2 pg 27.0-31.0 [facility] HospitalTpzvngiXTZGTJBHQO4571-86-87 17:38:00 Test Item Value Reference Range Interpretation Comments MCHC (test code = MCHC) 33.3 32.0-36.0 [facility] HospitalTjsabshGCCSCULWPR2421-37-65 17:38:00 Test Item Value Reference Range Interpretation Comments RDW (test code = RDW) 14.2 11.5-14.5 [facility] HospitalIhbldtrYMGPNVVMBL8417-59-18 17:38:00 Test Item Value Reference Range Interpretation Comments Platelet (test code = Platelet) 300 133-450 [facility] HospitalVpluvjwEEYMOBZQDP4886-54-43 17:38:00 Test Item Value Reference Range Interpretation Comments MPV (test code = MPV) 8.3 7.4-10.4 [facility] HospitalIghtbjiYAAFNKAEFM8840-20-18 17:38:00 Test Item Value Reference Range Interpretation Comments NRBCs # (test code = NRBCs #) 0.1 0.4-2.2 [facility] HospitalChfjckjZZLVQNHKCX0992-47-52 17:38:00 Test Item Value Reference Range Interpretation Comments Results (test code = Reported (02/18/20 12:38 Results) PM) [facility] HospitalJmjftbxVSZEEBWGWB1030-81-99 17:38:00 Test Item Value Reference Range Interpretation Comments Neutrophil % (test code = Neutrophil %) 62.2 45.0-75.0 [facility] HospitalEbspcygTKLNDQBERE1446-14-67 17:38:00 Test Item Value Reference Range Interpretation Comments Monocyte % (test code = Monocyte %) 6.8 2.0-12.0 [facility] HospitalLjgxsxoDFSXDPRJFY6045-75-18 17:38:00 Test Item Value Reference Range Interpretation Comments Lymphocyte % (test code = Lymphocyte %) 26.9 20.0-40.0 [facility] HospitalQmtgbwlJXNHSVQCFX9707-39-70 17:38:00 Test Item Value Reference Range Interpretation Comments Eosinophil # (test code 3.6 See_Comment [Au tomated message] The = Eosinophil #) system which generated this result tra nsmitted reference range : <=4.0. The reference r karan was not used to int erpret this result as normal/abnormal . [facility] HospitalHetrlsiIIRCKIRMKA3930-01-66 17:38:00 Test Item Value Reference Range Interpretation Comments Basophil % (test code = 0.5 See_Comment [Au tomated message] The Basophil %) system which ge nerated this result tra nsmitted reference range : <=1.0. The reference r karan was not used to int erpret this result as normal/abnormal . [facility] HospitalXucjcwyLCNSWMDTXU9674-51-78 17:38:00 Test Item Value Reference Range Interpretation Comments Neutrophil # (test code = Neutrophil #) 4.0 1.5-8.1 [facility] HospitalQybjmlwJFCWGGCXEG7419-65-00 17:38:00 Test Item Value Reference Range Interpretation Comments Lymphocyte # (test code = Lymphocyte #) 1.7 1.0-5.5 [facility] HospitalDtsevxjRNAKJDXKCP2373-33-70 17:38:00 Test Item Value Reference Range Interpretation Comments Monocyte # (test code = 0.4 See_Comment [Au tomated message] The Monocyte #) system which ge nerated this result tra nsmitted reference range : <=0.8. The reference r karan was not used to int erpret this result as normal/abnormal . [facility] HospitalSvpwnpeVDSTYEFINO1952-71-77 17:38:00 Test Item Value Reference Range Interpretation Comments Eosinophil % (test code 0.2 See_Comment [Au tomated message] The = Eosinophil %) system which generated this result tra nsmitted reference range : <=0.5. The reference r karan was not used to int erpret this result as normal/abnormal . [facility] HospitalDyjwzseFALNNYEGOE6858-80-83 17:38:00 Test Item Value Reference Range Interpretation Comments Results (test code = Reported (02/18/20 12:38 Results) PM) [facility] HospitalWeodvlaMLEGECYCFY6969-77-84 17:38:00 Test Item Value Reference Range Interpretation Comments Glucose Lvl (test code = Glucose Lvl) 89 70-99 [facility] HospitalLpdnpjkNZYCDOAHRC8365-63-84 17:38:00 Test Item Value Reference Range Interpretation Comments BUN (test code = BUN) 12 7-22 [facility] HospitalUatxwssDCIQXECLHC2844-90-81 17:38:00 Test Item Value Reference Range Interpretation Comments Creatinine (test code = Creatinine) 0.79 0.50-1.40 [facility] HospitalViupnzoLIVSEDFYKW8106-56-78 17:38:00 Test Item Value Reference Range Interpretation Comments Sodium Level (test code = Sodium Level) 141 135-145 [facility] HospitalIzezkzbPRVKESJOKV9130-39-68 17:38:00 Test Item Value Reference Range Interpretation Comments Potassium Level (test code = Potassium 4.5 3.5-5.1 Level) [facility]
--- NOTE | 2022-12-05 12:18 | ER ---
Nurse's Notes [facility] Name: Trudi Villavicencio Age: 47 yrs Sex: Female : 1975 Arrival Date: 12/05/2022 Time: 11:50 Bed 9 Private MD: Diagnosis: Cutaneous abscess x2 Presentation: 12/05 12:00 Chief complaint: Patient states: right sided neck pain and right groin pain X 2 days, iw does not remember injuring herself, she has had the pain before but it went away, she does not have a PCP right now. Coronavirus screen: At this time, the client does not indicate any symptoms associated with coronavirus-19. Ebola Screen: Patient negative for fever greater than or equal to 101.5 degrees Fahrenheit, and additional compatible Ebola Virus Disease symptoms Patient denies exposure to infectious person. Patient denies travel to an Ebola-affected area in the 21 days before illness onset. No symptoms or risks identified at this time. Initial Sepsis Screen: Does the patient meet any 2 criteria? Does the patient have a suspected source of infection? No. Patient's initial sepsis screen is negative. Risk Assessment: Do you want to hurt yourself or someone else? Patient reports no desire to harm self or others. Onset of symptoms was December 03, 2022. 12:00 Method Of Arrival: Ambulatory iw 12:00 Acuity: HOWIE 3 iw Historical: - Allergies: 12:02 Aspirin; iw 12:02 Codeine; iw 12:02 Topamax; iw 12:02 tramadol; iw - PMHx: 12:02 gastritis; neuropathy; osteoarthritis; Radiculopathy; iw - PSHx: 12:02 breast reduction; iw - Immunization history:: Adult Immunizations Client reports receiving the 2nd dose of the Covid vaccine. - Social history:: Smoking status: Patient denies any tobacco usage or history of. Vital Signs: 12:00 BP 115 / 70; Pulse 68; Resp 16; Temp 98.2; Pulse Ox 98% on R/A; Weight 94.35 kg; Height iw 5 ft. 3 in. ; Pain 7/10; 12:00 Body Mass Index 36.85 (94.35 kg, 160.02 cm) iw 12:00 Pain Scale: Adult iw ED Course: 11:54 Patient arrived in ED. kj1 12:02 Triage completed. iw 12:02 Arm band placed on. iw 12:09 Dangelo Severino MD is Attending Physician. sp3 12:12 Uma Kramer, RN is Primary Nurse. 3 Administered Medications: No medications were administered Outcome: 12:18 Discharge ordered by . sp3 12:26 Patient left the ED. 3 Signatures: Kellee Tran RN RN Kiersten Montenegro kj1 Dangelo Severino MD MD sp3 Uma Kramer, BECK RN [facility]
--- NOTE | 2022-12-05 12:18 | EDPHYS ---
Physician Documentation [facility] Name: Trudi Villavicencio Age: 47 yrs Sex: Female : 1975 Arrival Date: 12/05/2022 Time: 11:50 Bed 9 Private MD: ED Physician Dagnelo Severino HPI: 12/05 12:15 This 47 yrs old Female presents to ER via Ambulatory with complaints of Knot on neck. sp3 12:15 47-year-old female with a history of gastritis, neuropathy, osteoarthritis, now sp3 presents to the ED with abscess-like growth on her posterior right neck and inner thigh. Symptoms of been going on for 2 to 3 days with no prior history of similar symptoms in the past. She denies fever, syncope, night sweats, or any other symptoms on review of systems at this time. Remainder of ROS is negative.. Historical: - Allergies: 12:02 Aspirin; iw 12:02 Codeine; iw 12:02 Topamax; iw 12:02 tramadol; iw - PMHx: 12:02 gastritis; neuropathy; osteoarthritis; Radiculopathy; iw - PSHx: 12:02 breast reduction; iw - Immunization history:: Adult Immunizations Client reports receiving the 2nd dose of the Covid vaccine. - Social history:: Smoking status: Patient denies any tobacco usage or history of. ROS: 12:16 Constitutional: Negative for fever, chills, and weight loss, Eyes: Negative for injury, sp3 pain, redness, and discharge, ENT: Negative for injury, pain, and discharge, Cardiovascular: Negative for chest pain, palpitations, and edema, Respiratory: Negative for shortness of breath, cough, wheezing, and pleuritic chest pain, Abdomen/GI: Negative for abdominal pain, nausea, vomiting, diarrhea, and constipation, Back: Negative for injury and pain, Skin: Negative for injury, rash, and discoloration, Neuro: Negative for headache, weakness, numbness, tingling, and seizure, Psych: Negative for depression, anxiety, suicide ideation, homicidal ideation, and hallucinations, Allergy/Immunology: Negative for hives, rash, and allergies. 12:16 All other systems are negative. Exam: 12:16 Constitutional: This is a well developed, well nourished patient who is awake, alert, sp3 and in no acute distress. Head/Face: Normocephalic, atraumatic. Eyes: Pupils equal round and reactive to light, extra-ocular motions intact. Lids and lashes normal. Conjunctiva and sclera are non-icteric and not injected. Cornea within normal limits. Periorbital areas with no swelling, redness, or edema. ENT: Nares patent. No nasal discharge, no septal abnormalities noted. External auditory canals are clear. Oropharynx with no redness, swelling, or masses, exudates, or evidence of obstruction, uvula midline. Mucous membranes moist. Chest/axilla: Normal chest wall appearance and motion. Nontender with no deformity. No lesions are appreciated. Cardiovascular: Regular rate and rhythm with a normal S1 and S2. No gallops, murmurs, or rubs. Normal PMI, no JVD. No pulse deficits. Respiratory: Lungs have equal breath sounds bilaterally, clear to auscultation and percussion. No rales, rhonchi or wheezes noted. No increased work of breathing, no retractions or nasal flaring. Abdomen/GI: Soft, non-tender, with normal bowel sounds. No distension or tympany. No guarding or rebound. No evidence of tenderness throughout. Back: No spinal tenderness. No costovertebral tenderness. Full range of motion. MS/ Extremity: Pulses equal, no cyanosis. Neurovascular intact. Full, normal range of motion. Neuro: Awake and alert, GCS 15, oriented to person, place, time, and situation. Cranial nerves II-XII grossly intact. Motor strength 5/5 in all extremities. Sensory grossly intact. Cerebellar exam normal. Normal gait. Psych: Awake, alert, with orientation to person, place and time. Behavior, mood, and affect are within normal limits. 12:16 Skin: Patient has 1 cm x 1 cm nodule consistent with abscess on posterior right side of her neck and also similar nodule on the inner right thigh. Neither are fluctuant or ready for I\T\D. . Vital Signs: 12:00 BP 115 / 70; Pulse 68; Resp 16; Temp 98.2; Pulse Ox 98% on R/A; Weight 94.35 kg; Height iw 5 ft. 3 in. ; Pain 7/10; 12:00 Body Mass Index 36.85 (94.35 kg, 160.02 cm) iw 12:00 Pain Scale: Adult iw MDM: 12:17 Data reviewed: vital signs, nurses notes. ED course: Abscess x2. Neither are ready for sp3 I\T\D and are not fluctuant. Will recommend warm compresses and discharge patient on p.o. Bactrim at this time. She knows she may return if symptoms worsen.. 12:18 Patient medically screened. sp3 Administered Medications: No medications were administered Disposition Summary: 12/05/22 12:18 Discharge Ordered Location: Home sp3 Condition: Stable sp3 Diagnosis - Cutaneous abscess x2 sp3 Followup: sp3 - With: Private Physician - When: Upon discharge from the Emergency Department - Reason: Continuance of care Discharge Instructions: - Discharge Summary Sheet sp3 - Skin Abscess, [id number] sp3 Forms: - Medication Reconciliation Form sp3 - Thank You Letter sp3 - Antibiotic Education sp3 - Prescription Opioid Use sp3 Prescriptions: - Bactrim DS 800-160 mg Oral Tablet - take 1 tablet by ORAL route every 12 hours for 7 days; 14 tablet; Refills: 0, sp3 Product Selection Permitted Signatures: Kellee Tran, RN RN iw Dangelo Severino MD MD sp3
[2022-12-05 12:35] VITALS: BP 115/70; TEMP 98.2; O2SAT 98
== END 2022-12-05 12:26 | disposition home or self-care (01) ==
LOC: ER 11:50
DX: L02.11 Cutaneous abscess of neck (principal); L02.415 Cutaneous abscess of right lower limb

== ENCOUNTER 2022-12-14 10:24 | Emergency (ER) | payer SELFPAY ==
--- OUTSIDE RECORDS SUMMARY | 2022-12-14 10:36 | XMS REPORT | Continuity of Care Document ---
:1975 Author Organization [facility] t Address [address] [place] [address] Care Team Providers Name Role Phone Asked, No Pcp Primary Care Physician Unavailable Danie Garcia Attending Clinician Unavailable ESTER PERES Attending Clinician Unavailable ALFONZO ALARCON Attending Clinician Unavailable Doctor Unassigned, [place] Attending Clinician Unavailable HAMZAH CAMPBELL Attending Clinician Unavailable CAT PRITCHETT Attending Clinician Unavailable Cat Pritchett DO Attending Clinician Marina PERALTA, Tony Hdz Attending Clinician Alfonzo Alarcon MD Attending Clinician [phone] Malcom Espinal Attending Clinician ROYCE PRUETT [...] Date Expiration Date S ource [employer] [place] [id number] 2020 - OUT OF STATE 0 00:00:00 BCBS 2 [id number] 2021 0 00:00:00 [employer] 6 [id number] 2020 Common Spiri t [employer] Shield of 00:00:00 - [facility] Problems Condition Condition Condition Status [...] f medial medial 00:00: g of this [place] meniscus meniscus 00 note Medica l of left of left might be Branch knee as knee as different current current from the injury, injury, original. 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[facility], Medical without Center psychotic features [id number] Influenza Problem Commo n Spirit - [facility] Backache Back pain, Problem Com mon unspecifie Spirit d back - [facility] location[facility] back Medical pain Center laterality , unspecifie d chronicity [id number] Anxiety Problem Common [facility] Acute Acute Problem Common bronchitis bronchitis Sp elana , - CHI unspecifie [facility] Essential Essential Problem Com mon hypertensi hypertensi Sp elana on on - [facility] Acute Acute Problem Common upper upper Spirit respirator respirator - CHI y y St infection infection, [place] es unspecifie Medica l d Center [id number] History of Problem Co mmon hiatal Spirit hernia - [facility] Asthma Uncomplica Problem Commo n without margaret Spirit status asthma, - CHI asthmaticu unspecifie St s d asthma [facility] severity, Medical unspecifie Center d whether persistent Seasonal Seasonal Problem Commo n allergic allergic Spirit rhinitis rhinitis, - CHI unspecifie St d [facility] [id number] Depression Problem Co mmon with Spirit anxiety - [facility] [id number] Suicidal Problem Common ideation [facility] [id number] Non-intrac Problem Com mon table Spirit vomiting - [facility] with St nausea [facility] unspecifie Medica l d vomiting Center type [id number] Epigastric Problem Com mon pain [facility] [id number] Endometria Problem Co mmon l cancer [facility] [id number] Slurred Problem Commo n speech [facility] [id number] Moderate Problem Comm on asthma Spirit without - CHI complicati St , [facility] unspecifie Medica l d whether Center persistent [id number] Noncomplia Problem Co mmon nce with Spirit medication - CHI regimen [facility] [id number] Gastroesop Problem Co mmon hageal Spirit reflux - CHI disease [facility] esophagiti Medica l s Center [id number] Chronic Problem Commo n pruritus [facility] Disc Disc Disease Active Univers disease, disease, ity of degener[place] degener[place] ve, lumbar ve, lumbar Me dical or or Branch lumbosacra lumbosacra l l Cervical Cervical Disease Active Unive rs herniated herniated ity of disc disc [facility] Lumbar Lumbar Disease Active Univers herniated herniated ity of disc disc [facility] Cervical Cervical Disease Active Unive rs herniated herniated ity of disc disc [facility] Asthma Asthma Problem Active 2022-07-24 Lev trupti (disorder) (disorder) 12:01:02 l Active [place] Problem 07/24/2022 [facility] Gastritis Gastritis Problem Active 2022-07-24 Memoria (disorder) (disorder) 12:01:02 l Active [place] Problem 07/24/2022 [facility] Hypertensi Hypertens Problem Active 2022-07-24 Memoria ve shireen 12:01:02 l disorder, disorder, Herm mckenna systemic systemic arterial arterial (disorder) (disorder) Active Problem 07/24/2022 [facility] Hypothyroi Hypothyro Problem Active 2022-07-24 Memoria dism idism 12:01:02 l (disorder) (disorder) He [facility] Active Problem 07/24/2022 [facility] Migraine Migraine Problem Active 2022-07-24 Memoria (disorder) (disorder) 12:01:02 l Active [place] Problem 07/24/2022 [facility] Morbid Morbid Problem Active 2022-07-24 [facility] obesity obesity 12:01:02 l (disorder) (disorder) He ann Active Problem 07/24/2022 [facility] 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 12:01:02 l (disorder) (disorder) He ann Active Problem 07/24/2022 [facility] Hemangioma Hemangiom Problem Active 2022-07-24 Memoria of a of 12:01:02 l intracrani intracrani Vladimir mckenna al al structure structure (disorder) (disorder) Active Problem 07/24/2022 [facility] Ankle pain Ankle Problem Active 2022-07-24 M emoria (finding) pain 12:01:02 l (finding) Luca Active Problem 07/24/2022 [facility] Paresthesi Paresthes Problem Active 2022-07-24 Memoria a ia 12:01:02 l (finding) (finding) Herm mckenna Active Problem 07/24/2022 [facility] Lumbar Lumbar Problem Active 2022-07-24 [facility] radiculopa radiculopa 12:01:02 l thy thy Luca (disorder) (disorder) Active Problem 07/24/2022 [facility] Peripheral Periphera Problem Active 2022-07-24 Memoria nerve l nerve 12:01:02 l disease disease [place] (disorder) (disorder) Active Problem 07/24/2022 [facility] Acid Acid Problem Active 2020-02-28 Memor ia [...] 02-05 Seybold adverse 00:00: reaction 00 s Aluminum Propensi Active Other (See Other [...] Hospita reaction 00 l s to drug Calcium Propensi Active Other Other Rosi Acetylsa ty to 02-05 reaction( Seybo ld licylate adverse 00:00: s): Maciel reaction 00 syndrome, s UnknownRe yes Syndrome Yung Syndrome Yung Syndrome codeine codeine Active Memoria l [place] aspirin aspirin Active Memoria l [place] traMADol traMADol Active Memori a l [place] Topamax Topamax Active Memoria l [place] codeine Allergy Active [facility] to drug Physici (finding ans ) Codeine Codeine Active Unknown Common [facility] topirama topirama Active Unknown Commo n te te [facility] aspirin aspirin Active Unknown Common [facility] Family History Family Member Diagnosis Comments Start Date Stop Date Source Maternal grandmother Diabetes [facility] Maternal grandmother Stroke [facility] Natural mother Heart attack [facility] Natural mother Heart disease [facility] Natural father Diabetes [facility] Natural father Heart attack [facility] Maternal aunt Cancer [facility] Social History Social Habit Start Date Stop Date Quantity Comments Source History of Tobacco Common Spirit - Use [facility] Gender identity [facility] Sexual orientation [facility] Hospital Exposure to Not sure Rosi armendariz SARS-CoV-2 (event) Alcohol intake 2021-05-19 2021-05-19 Lifetime Caodaism 00:00:00 00:00:00 non-drinker Hospital (finding) History of Social 2021-05-19 2021-05-[address] function 00:00:00 00:00:00 Hospital Tobacco use and 2021-05-19 2021-05-19 Smokeless Caodaism exposure 00:00:00 00:00:00 tobacco non-user Hospital Sex Assigned At [birth year] [facility] 00:00:00 00:00:00 Hospital Smoking Status Start Date Stop Date Source Tobacco smoking status [facility] Medications Ordered Filled Start Stop Current Ordering [...] 59 (PF) 180 l Quad mcg (45 2506-3204, mcg x PF,) 180 4)/0.5 mL mcg [...] l bromphenira 2020-07 Yes bromphenir Methodi mine-pseudo 1- amine-pseu st eph-DM 10:53: doephedrin Hospi ta [...] mine-pseudo 1-04 amine-pseu st eph-DM 10:53: doephedrin [facility] 58 e-DM 2 l mg/5 mL mg-30 syrup mg-10 mg/5 mL oral syrup budesonide 2020-07 Yes 1mg Inhale 1 Met hodi (PULMICORT) 1-[address] 1 mg/2 mL 10:53: Hospita nebulizer 58 l solution bromphenira 2020-07 Yes bromphenir Methodi mine-pseudo 1-04 amine-pseu st eph-DM 10:53: doephedrin [facility] 58 e-DM 2 l mg/5 mL mg-30 syrup mg-10 mg/5 mL oral syrup budesonide 2020-07 Yes 1mg Inhale 1 Met hodi (PULMICORT) 1-[address] 1 mg/2 mL 10:53: Hospita nebulizer 58 l solution bromphenira 2020-07 Yes bromphenir Methodi mine-pseudo 1-04 amine-pseu st eph-DM 10:53: doephedrin [facility] 58 e-DM 2 l mg/5 mL [...] 32 on daily Suspension Cyclobenzap 2020-07 Yes [id number] 10mg Take 1 Rosi rine HCl 10 0-14 tablet (10 Se ybold MG oral 00:00: mg total) Tablet 00 by mouth at bedtime as needed amitriptyli 2020-07 Yes Method i ne (ELAVIL) 0-04 st 75 MG 00:00: Hospita tablet 00 l amitriptyli 2020-07 Yes Method i ne (ELAVIL) 0-04 st 75 MG 00:00: Hospita tablet 00 l medroxyPROG 2020-07 Yes Method i ESTERone 0-04 st (PROVERA) 00:00: Hospita 10 MG 00 l tablet medroxyPROG 2020-07 Yes Method i ESTERone 0-04 [...] tab, PO, l Tablet 21:15: PRN, PRN [place] [Ubrelvy] 00 Other -See Comment, X 30 [...] tab, PO, l Tablet 21:15: PRN, PRN [place] [Ubrelvy] 00 Other -See Comment, X 30 day, # 10 tab, 1 Refill(s), Pharmacy: [facility], For Migraine. May repeat dose after 2 hours. Max dose 200 mg/ 24 hours, 152.4, cm, 03/16/21 8:31:00 CDT, Height, 112.727, kg, 03/16/21 8... ubrogepant 2021-0 Yes 100 mg = 1 M emoria 100 MG Oral 9-10 tab, PO, l Tablet 21:15: PRN, PRN [place] [Ubrelvy] 00 Other -See Comment, X 30 day, # 10 tab, 1 Refill(s), Pharmacy: [facility], For Migraine. May repeat dose after 2 hours. Max dose 200 mg/ 24 hours, 152.4, cm, 03/16/21 8:31:00 CDT, Height, 112.727, kg, 03/16/21 8... ubrogepant 2021-0 Yes 100 mg = 1 M emoria 100 MG Oral 9-10 tab, PO, l Tablet 21:15: PRN, PRN [place] [Ubrelvy] 00 Other -See Comment, X 30 [...] tab, PO, l Tablet 16:30: PRN, PRN [place] [Ubrelvy] 00 Other -See Comment, X 30 day, # 10 tab, 1 Refill(s), Pharmacy: [facility], For Migraine. May repeat dose after 2 hours. Max dose 200 mg/ 24 hours, 152.4, cm, 03/16/21 8:31:00 CDT, Height, 112.727, kg, 03/16/21 8:... ubrogepant 2021-0 No 100 mg = 1 M emoria 100 MG Oral 9-03 tab, PO, l Tablet 16:30: PRN, PRN [place] [Ubrelvy] 00 Other -See Comment, X 30 day, # 10 tab, 1 Refill(s), Pharmacy: [facility], For Migraine. May repeat dose after 2 hours. Max dose 200 mg/ 24 hours, 152.4, cm, 03/16/21 8:31:00 CDT, Height, 112.727, kg, 03/16/21 8:... ubrogepant 2021-0 No 100 mg = 1 M emoria 100 MG Oral 9-03 tab, PO, l Tablet 16:30: PRN, PRN [place] [Ubrelvy] 00 Other -See Comment, X 30 day, # 10 tab, 1 Refill(s), Pharmacy: [facility], For Migraine. May repeat dose after 2 hours. Max dose 200 mg/ 24 hours, 152.4, cm, 03/16/21 8:31:00 CDT, Height, 112.727, kg, 03/16/21 8:... ubrogepant 2021-0 No 100 mg = 1 M emoria 100 MG Oral 9-03 tab, PO, l Tablet 16:30: PRN, PRN [place] [Ubrelvy] 00 Other -See Comment, X 30 day, # 10 tab, 1 Refill(s), Pharmacy: [facility], For Migraine. May repeat dose after 2 hours. Max dose 200 mg/ 24 hours, 152.4, cm, 03/16/21 8:31:00 CDT, Height, 112.727, kg, 03/16/21 8:... ubrogepant 2020-0 No 100 mg = 1 M emoria 100 MG Oral 9-03 tab, PO, l Tablet 16:30: PRN, PRN [place] [Ubrelvy] 00 Other -See Comment, X 30 day, # 10 tab, 1 Refill(s), Pharmacy: [facility], For Migraine. May repeat dose after 2 hours. Max dose 200 mg/ 24 hours, 152.4, cm, 03/16/21 8:31:00 CDT, Height, 112.727, kg, 03/16/21 8:... ubrogepant 2020-0 No 100 mg = 1 M emoria 100 MG Oral 9-03 tab, PO, l Tablet 16:30: PRN, PRN [place] [Ubrelvy] 00 Other -See Comment, X 30 day, # 10 tab, 1 Refill(s), Pharmacy: [facility], For Migraine. May repeat dose after 2 hours. Max dose 200 mg/ 24 hours, 152.4, cm, 03/16/21 8:31:00 CDT, Height, 112.727, kg, 03/16/21 8:... amitriptyli 2020-0 Yes = 1 tab, Me moria ne 75 mg 9-01 PO, l oral tablet 23:57: Bedtime, # [place] 00 30 ea, 5 Refill(s), Pharmacy: [facility], 152.4, cm, 03/16/21 8:31:00 CDT, Height, 112.727, kg, 03/16/21 8:31:00 CDT, Weight amitriptyli 2020-0 Yes = 1 tab, Me moria ne 75 mg 9-01 PO, l oral tablet 23:57: Bedtime, # [place] 00 30 ea, 5 Refill(s), Pharmacy: [facility], 152.4, cm, 03/16/21 8:31:00 CDT, Height, 112.727, kg, 03/16/21 8:31:00 CDT, Weight amitriptyli 2020-0 Yes = 1 tab, Me moria ne 75 mg 9-01 PO, l oral tablet 23:57: Bedtime, # [place] 00 30 ea, 5 Refill(s), Pharmacy: [facility], 152.4, cm, 03/16/21 8:31:00 CDT, Height, 112.727, kg, 03/16/21 8:31:00 CDT, Weight amitriptyli 2020-0 Yes = 1 tab, Me moria ne 75 mg 9-01 PO, l oral tablet 23:57: Bedtime, # [place] 00 30 ea, 5 Refill(s), Pharmacy: [facility], 152.4, cm, 03/16/21 8:31:00 CDT, Height, 112.727, kg, 03/16/21 8:31:00 CDT, Weight amitriptyli 0 Yes = 1 tab, Me moria ne 75 mg 9-01 PO, l oral tablet 23:57: Bedtime, # [place] 00 30 ea, 5 Refill(s), Pharmacy: [facility], 152.4, cm, 03/16/21 8:31:00 CDT, Height, 112.727, kg, 03/16/21 8:31:00 CDT, Weight amitriptyli 2020-0 Yes = 1 tab, Me moria ne 75 mg 9-01 PO, l oral tablet 23:57: Bedtime, # [place] 00 30 ea, 5 Refill(s), Pharmacy: [facility], 152.4, cm, 03/16/21 8:31:00 CDT, Height, 112.727, kg, 03/16/21 8:31:00 CDT, Weight Amitriptyli 0 Yes amitriptyl Rosi ne HCl 75 9-01 ine 75 mg Seybo ld MG oral 00:00: tablet Tablet 00 ubrogepant No 100 mg = 1 M emoria 100 MG Oral 8-23 tab, PO, l Tablet 21:26: PRN, PRN [place] [Ubrelvy] 00 Other -See Comment, X 30 day, # 10 tab, 1 Refill(s), Pharmacy: [facility], For Migraine. May repeat dose after 2 hours. Max dose 200 mg/ 24 hours, 152.4, cm, 02/01/21 13:49:00 CDT, Height, 116.818, kg, 02/01/21 1... ubrogepant 2021-0 No 100 mg = 1 M emoria 100 MG Oral 8-23 tab, PO, l Tablet 21:26: PRN, PRN [place] [Ubrelvy] 00 Other -See Comment, X 30 day, # 10 tab, 1 Refill(s), Pharmacy: [facility], For Migraine. May repeat dose after 2 hours. Max dose 200 mg/ 24 hours, 152.4, cm, 02/01/21 13:49:00 CDT, Height, 116.818, kg, 02/01/21 1... ubrogepant 2021-0 No 100 mg = 1 M emoria 100 MG Oral 8-23 tab, PO, l Tablet 21:26: PRN, PRN [place] [Ubrelvy] 00 Other -See Comment, X 30 day, # 10 tab, 1 Refill(s), Pharmacy: [facility], For Migraine. May repeat dose after 2 hours. Max dose 200 mg/ 24 hours, 152.4, cm, 02/01/21 13:49:00 CDT, Height, 116.818, kg, 02/01/21 1... ubrogepant 2021-0 No 100 mg = 1 M emoria 100 MG Oral 8-23 tab, PO, l Tablet 21:26: PRN, PRN [place] [Ubrelvy] 00 Other -See Comment, X 30 day, # 10 tab, 1 Refill(s), Pharmacy: [facility], For Migraine. May repeat dose after 2 hours. Max dose 200 mg/ 24 hours, 152.4, cm, 02/01/21 13:49:00 CDT, Height, 116.818, kg, 02/01/21 1... ubrogepant 2021-0 No 100 mg = 1 M emoria 100 MG Oral 8-23 tab, PO, l Tablet 21:26: PRN, PRN [place] [Ubrelvy] 00 Other -See Comment, X 30 day, # 10 tab, 1 Refill(s), Pharmacy: [facility], For Migraine. May repeat dose after 2 hours. Max dose 200 mg/ 24 hours, 152.4, cm, 02/01/21 13:49:00 CDT, Height, 116.818, kg, 02/01/21 1... ubrogepant 2021-0 No 100 mg = 1 M emoria 100 MG Oral 8-23 tab, PO, l Tablet 21:26: PRN, PRN [place] [Ubrelvy] 00 Other -See Comment, X 30 day, # 10 tab, 1 Refill(s), Pharmacy: [facility], For Migraine. May repeat dose after 2 hours. Max dose 200 mg/ 24 hours, 152.4, cm, 02/01/21 13:49:00 CDT, Height, 116.818, kg, 02/01/21 1... Polytrim Polytrim 2020-0 202- No 1{drop_ QID Polytrim 54417-7.1 39652-0.1 02-2316 into_af 00731-5.1 UNIT/ML UNIT/ML 00:00: 00:00 fected_ UNIT/ML 00 :00 eye} ibuprofen 2021-0 Yes Methodi (ADVIL) 600 8-04 [...] No BID Ibuprofen 600 MG 600 MG 8-04 08-18 600 MG 00:00: 00:00 00 :00 methylPREDN 2020-0 Yes [id number] 84mg Take 21 Univers ISolone 7-30 tablets by ity of (MEDROL, 00:00: mouth [place] GENARO,) 4 mg 00 SEE-INSTRU Med ical tablets CTIONS. Branch follow package directions methylPREDN 2020-0 Yes [id number] 84mg Take 21 Univers ISolone 7-30 tablets by ity of (MEDROL, 00:00: mouth [place] GENARO,) 4 mg 00 SEE-INSTRU Med ical tablets CTIONS. Branch follow package directions methylPREDN 0 Yes [id number] 84mg Take 21 Univers ISolone 7-30 tablets by ity of (MEDROL, 00:00: mouth [place] GENARO,) 4 mg 00 SEE-INSTRU Med ical tablets CTIONS. Branch follow package directions methylPREDN 2020-0 Yes [id number] 84mg Take 21 Univers ISolone 7-30 tablets [...] 00:00: MG oral 00 Tablet medroxyPROG Yes [id number] 20mg Take 2 Univers ESTERone 5-13 tablets by ity o f (PROVERA) 00:00: mouth [place] 10 mg 00 daily. Medical tablet Branch medroxyPROG Yes [id number] 20mg Take 2 Univers ESTERone 5-13 tablets by ity o f (PROVERA) 00:00: mouth [place] 10 mg 00 daily. Medical tablet Branch medroxyPROG Yes 20mg Take 2 Univers ESTERone 5-13 tablets by ity o f (PROVERA) 00:00: mouth [place] 10 mg 00 daily. Medical tablet Branch medroxyPROG Yes [id number] 20mg Take 2 Univers ESTERone 5-13 tablets by ity o f (PROVERA) 00:00: mouth [place] 10 mg 00 daily. 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, Weight rizatriptan 2021-0 Yes 5 mg = 1 Me moria 5 MG Oral 3-12 tab, PO, l Tablet 20:23: ONCE, PRN Burak n [Maxalt] 00 for migraine headache, # 9 tab, 1 Refill(s), Pharmacy: [facility], 160.02, cm, 09/24/20 13:34:00 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, Height, 113.636, kg, 09/24/20 13:34:00 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, Weight Maxalt 5 mg 2021-0 Yes 5 mg = 1 Me moria oral tablet 3-12 tab, PO, l 20:23: ONCE, PRN [place] 00 for migraine headache, # 9 tab, 1 Refill(s), Pharmacy: [facility], 160.02, cm, 09/24/20 13:34:00 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, Height, 113.636, kg, 09/24/20 13:34:00 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, Weight rizatriptan 2021-0 Yes 5 mg = 1 Me moria 5 MG Oral 3-12 tab, PO, l Tablet 20:23: ONCE, PRN Burak n [Maxalt] 00 for migraine headache, # 9 tab, 1 Refill(s), Pharmacy: [facility], 160.02, cm, 09/24/20 13:34:00 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, Height, 113.636, kg, 09/24/20 13:34:00 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, Weight Maxalt 5 mg 2021-0 Yes 5 mg = 1 Me moria oral tablet 3-12 tab, PO, l 20:23: ONCE, PRN [place] 00 for migraine headache, # 9 tab, 1 Refill(s), Pharmacy: [facility], 160.02, cm, 09/24/20 13:34:00 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, Height, 113.636, kg, 09/24/20 13:34:00 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, Weight rizatriptan 2021-0 Yes 5 mg = 1 Me moria 5 MG Oral 3-12 tab, PO, l Tablet 20:23: ONCE, PRN Burak n [Maxalt] 00 for migraine headache, # 9 tab, 1 Refill(s), Pharmacy: [facility], 160.02, cm, 09/24/20 13:34:00 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, Height, 113.636, kg, 09/24/20 13:34:00 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, Weight Maxalt 5 mg 2021-0 Yes 5 mg = 1 Me moria oral tablet 3-12 tab, PO, l 20:23: ONCE, PRN [place] 00 for migraine headache, # 9 tab, 1 Refill(s), Pharmacy: [facility], 160.02, cm, 09/24/20 13:34:00 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, Height, 113.636, kg, 09/24/20 13:34:00 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, Weight rizatriptan 2021-0 Yes 5 mg = 1 Me moria 5 MG Oral 3-12 tab, PO, l Tablet 20:23: ONCE, PRN Burak n [Maxalt] 00 for migraine headache, # 9 tab, 1 Refill(s), Pharmacy: [facility], 160.02, cm, 09/24/20 13:34:00 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, Height, 113.636, kg, 09/24/20 13:34:00 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, Weight rizatriptan 2021-0 Yes 5 mg = 1 Me moria 5 MG Oral 3-12 tab, PO, l Tablet 20:23: ONCE, PRN Burak n [Maxalt] 00 for migraine headache, # 9 tab, 1 Refill(s), Pharmacy: [facility], 160.02, cm, 09/24/20 13:34:00 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, Height, 113.636, kg, 09/24/20 13:34:00 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, Weight Maxalt 5 mg 2021-0 Yes 5 mg = 1 Me moria oral tablet 3-12 tab, PO, l 20:23: ONCE, PRN [place] 00 for migraine headache, # 9 tab, 1 Refill(s), Pharmacy: [facility], 160.02, cm, 09/24/20 13:34:00 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, Height, 113.636, kg, 03/12/21 13:34:00 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, Weight Rizatriptan 1-0 Yes rizatripta Rosi Benzoate 5 3-12 n 5 mg Seybold MG oral 00:00: tablet Tablet 00 TAKE 1 TABLET BY MOUTH ONCE DAILY NEEDED FOR HEADACHE MIGRAINE rizatriptan 2020-0 Yes 5 mg = 1 Me moria 5 MG Oral 9-15 tab, PO, l Tablet 22:44: ONCE, PRN Burak n [Maxalt] 00 for migraine headache, # 9 tab, 1 Refill(s), Pharmacy: [facility], 152.4, cm, 01/15/20 15:04:00 CDT, Height, 115.455, kg, 01/15/20 15:04:00 CDT, Weight rizatriptan 2020-0 Yes 5 mg = 1 Me moria 5 MG Oral 9-15 tab, PO, l Tablet 22:44: ONCE, PRN Burak n [Maxalt] 00 for migraine headache, # 9 tab, 1 Refill(s), Pharmacy: [facility], 152.4, cm, 01/15/20 15:04:00 CDT, Height, 115.455, kg, 01/15/20 15:04:00 CDT, Weight rizatriptan 2020-0 Yes 5 mg = 1 Me moria 5 MG Oral 9-15 tab, PO, l Tablet 22:44: ONCE, PRN Burak n [Maxalt] 00 for migraine headache, # 9 tab, 1 Refill(s), Pharmacy: [facility], 152.4, cm, 01/15/20 15:04:00 CDT, Height, 115.455, kg, 01/15/20 15:04:00 CDT, Weight rizatriptan 2020-0 Yes 5 mg = 1 Me moria 5 MG Oral 9-15 tab, PO, l Tablet 22:44: ONCE, PRN Burak n [Maxalt] 00 for migraine headache, # 9 tab, 1 Refill(s), Pharmacy: [facility], 152.4, cm, 01/15/20 15:04:00 CDT, Height, 115.455, kg, 01/15/20 15:04:00 CDT, Weight rizatriptan 2020-0 Yes 5 mg = 1 Me moria 5 MG Oral 9-15 tab, PO, l Tablet 22:44: ONCE, PRN Burak n [Maxalt] 00 for migraine headache, # 9 tab, 1 Refill(s), Pharmacy: [facility], 152.4, cm, 01/15/20 15:04:00 CDT, Height, 115.455, kg, 01/15/20 15:04:00 CDT, Weight rizatriptan 2020-0 Yes 5 mg = 1 Me moria 5 MG Oral 9-15 tab, PO, l Tablet 22:44: ONCE, PRN Burak n [Maxalt] 00 for migraine headache, # 9 tab, 1 Refill(s), Pharmacy: [facility], 152.4, cm, 01/15/20 15:04:00 CDT, Height, 115.455, kg, 01/15/20 15:04:00 CDT, Weight Misc 2020-0 No 900 mL, Memoria Medication 8- Soln-IV, l 15:27: IV, Once, [place] first dose 02/26/20 10:27:00 CDT, stop date 02/26/20 10:27:00 CDT Misc 2020-0 No 900 mL, Memoria Medication 8- Soln-IV, l 15:27: IV, Once, [place] first dose 02/26/20 10:27:00 CDT, stop date [...] Medication 8- Soln-IV, l 15:27: IV, Once, [place] 00 first dose 02/26/20 10:27:00 CDT, stop [...] ia 8-13 0.5 mL, l 15:20: Injection, [place] 00 IV Push, q10min PRN for pain [...] ia 8-13 0.5 mL, l 15:20: Injection, [place] 00 IV Push, q10min PRN for pain [...] e 8-13 0.5 mL, l 15:20: Injection, 00 IM, Once PRN for vomiting, first [...] emoria 8-13 0.5 mL, l 15:20: Injection, [place] IV Push, Once PRN for shivers, first [...] Saline Lock 2020-0 No 10 mL, Lev trupit Flush 8-13 Soln, IV l 15:20: Push, [...] e 8-13 0.5 mL, l 15:20: Injection, [place] 00 IM, Once PRN for vomiting, first [...] ia 8-13 0.5 mL, l 14:50: Injection, [place] 00 IV, Once, first dose 02/26/20 9:50:00 [...] ia 8-13 0.5 mL, l 14:50: Injection, [place] 00 IV, Once, first dose 02/26/20 9:50:00 [...] Me moria 8-13 mL, l 12:53: Injection, [place] 00 IV, Once, first dose 02/26/20 7:53:00 CDT, stop date 02/26/20 7:53:00 CDT dexamethaso 2020-0 No 8 mg = 2 Me moria ne 8-13 mL, l 12:53: Injection, [place] 00 IV, Once, first dose 02/26/20 7:53:00 CDT, stop date 02/26/20 7:53:00 CDT ketorolac 2020-0 No 30 mg = 1 Mem oria 8-13 mL, l 12:53: Injection, [place] 00 IV, Once, first dose 02/26/20 7:53:00 [...] Mem oria 8-13 mL, l 12:53: Injection, [place] 00 IV, Once, first dose 02/26/20 7:53:00 CDT, stop date 02/26/20 7:53:00 CDT ceFAZolin 2020-0 No 2 gm, Memoria 8-13 Soln-IV, l 12:53: IV [place] 00 Piggyback, Once, first dose 02/26/20 7:53:00 CDT, stop date 02/26/20 7:53:00 CDT ondansetron 2020-0 No 4 mg = 2 Me moria 8-13 mL, l 12:53: Injection, [place] 00 IV, Once, first dose 02/26/20 7:53:00 [...] gm, Memoria 8-13 Soln-IV, l 12:53: IV [place] 00 Piggyback, Once, first dose 02/26/20 7:53:00 CDT, stop date 02/26/20 7:53:00 CDT ondansetron 2020-0 No 4 mg = 2 Me moria 8-13 mL, l 12:53: Injection, [place] 00 IV, Once, first dose 02/26/20 7:53:00 CDT, stop date 02/26/20 7:53:00 CDT dexamethaso 2020-0 No 8 mg = 2 Me moria ne 8-13 mL, l 12:53: Injection, [place] 00 IV, Once, first dose 02/26/20 7:53:00 CDT, stop date 02/26/20 7:53:00 CDT ketorolac 2020-0 No 30 mg = 1 Mem oria 8-13 mL, l 12:53: Injection, [place] 00 IV, Once, first dose 02/26/20 7:53:00 CDT, stop date 02/26/20 7:53:00 CDT ceFAZolin 2020-0 No 2 gm, Mem[place] 8-13 Soln-IV, l 12:53: IV [place] 00 Piggyback, Once, first dose 02/26/20 7:53:00 [...] Mem oria 8-13 mL, l 12:53: Injection, [place] 00 IV, Once, first dose 02/26/20 7:53:00 CDT, stop date 02/26/20 7:53:00 CDT lidocaine 2020-0 No 100 mg = 5 Me moria 8-13 mL, l 12:41: Injection, [place] 00 IV, Once, first dose 02/26/20 7:41:00 CDT, stop date 02/26/20 7:41:00 CDT propofol 2020-0 No 200 mg = Memor ia 8-13 20 mL, l 12:41: Emulsion, [place] 00 IV, Once, first dose 02/26/20 7:41:00 CDT, stop date 02/26/20 7:41:00 CDT lidocaine 2020-0 No 100 mg = 5 Me moria 8-13 mL, l 12:41: Injection, [place] 00 IV, Once, first dose 02/26/20 7:41:00 CDT, stop date 02/26/20 7:41:00 CDT propofol 2020-0 No 200 mg = Memor ia 8-13 20 mL, l 12:41: Emulsion, [place] 00 IV, Once, first dose 02/26/20 7:41:00 CDT, stop date 02/26/20 7:41:00 CDT lidocaine 2020-0 No 100 mg = 5 Me moria 8-13 mL, l 12:41: Injection, [place] 00 IV, Once, first dose 02/26/20 7:41:00 CDT, stop date 02/26/20 7:41:00 CDT propofol 2020-0 No 200 mg = Memor ia 8-13 20 mL, l 12:41: Emulsion, [place] 00 IV, Once, first dose 02/26/20 7:41:00 CDT, stop date 02/26/20 7:41:00 CDT lidocaine 2020-0 No 100 mg = 5 Me moria 8-13 mL, l 12:41: Injection, [place] 00 IV, Once, first dose 02/26/20 7:41:00 CDT, stop date 02/26/20 7:41:00 CDT propofol 2020-0 No 200 mg = Memor ia 8-13 20 mL, l 12:41: Emulsion, [place] 00 IV, Once, first dose 02/26/20 7:41:00 CDT, stop date 02/26/20 7:41:00 CDT lidocaine 2020-0 No 100 mg = 5 Me moria 8-13 mL, l 12:41: Injection, [place] 00 IV, Once, first dose 02/26/20 7:41:00 CDT, stop date 02/26/20 7:41:00 CDT propofol 2020-0 No 200 mg = Memor ia 8-13 20 mL, l 12:41: Emulsion, [place] 00 IV, Once, first dose 02/26/20 7:41:00 CDT, stop date 02/26/20 7:41:00 CDT lidocaine 2020-0 No 100 mg = 5 Me moria 8-13 mL, l 12:41: Injection, [place] 00 IV, Once, first dose 02/26/20 7:41:00 CDT, stop date 02/26/20 7:41:00 CDT propofol 2020-0 No 200 mg = Memor ia 8-13 20 mL, l 12:41: Emulsion, [place] 00 IV, Once, first dose 02/26/20 7:41:00 CDT, stop date 02/26/20 7:41:00 CDT fentaNYL 2020-0 No 50 mcg = 1 Mem oria 8-13 mL, l 12:35: Injection, [place] 00 IV, Once, first dose 02/26/20 7:35:00 CDT, stop date 02/26/20 7:35:00 CDT fentaNYL 2020-0 No 50 mcg = 1 Mem oria 8-13 mL, l 12:35: Injection, [place] 00 IV, Once, first dose 02/26/20 7:35:00 CDT, stop date 02/26/20 7:35:00 CDT fentaNYL 2020-0 No 50 mcg = 1 Mem oria 8-13 mL, l 12:35: Injection, [place] 00 IV, Once, first dose 02/26/20 7:35:00 CDT, stop date 02/26/20 7:35:00 CDT fentaNYL 2020-0 No 50 mcg = 1 Mem oria 8-13 mL, l 12:35: Injection, [place] 00 IV, Once, first dose 02/26/20 7:35:00 CDT, stop date 02/26/20 7:35:00 CDT fentaNYL 2020-0 No 50 mcg = 1 Mem oria 8-13 mL, l 12:35: Injection, [place] 00 IV, Once, first dose 02/26/20 7:35:00 CDT, stop date 02/26/20 7:35:00 CDT fentaNYL 2020-0 No 50 mcg = 1 Mem oria 8-13 mL, l 12:35: Injection, [place] 00 IV, Once, first dose 02/26/20 7:35:00 CDT, stop date 02/26/20 7:35:00 CDT midazolam 2020-0 No 1 mg = 1 Lev trupti 8-13 mL, l 12:34: Injection, [place] 00 IV, Once, first dose 02/26/20 7:34:00 CDT, stop date 02/26/20 7:34:00 CDT midazolam 2020-0 No 1 mg = 1 Lev trupti 8-13 mL, l 12:34: Injection, [place] 00 IV, Once, first dose 02/26/20 7:34:00 CDT, stop date 02/26/20 7:34:00 CDT midazolam 2020-0 No 1 mg = 1 Lev trupti 8-13 mL, l 12:34: Injection, [place] 00 IV, Once, first dose 02/26/20 7:34:00 [...] Lev trupti 8-13 mL, l 12:34: Injection, [place] 00 IV, Once, first dose 02/26/20 7:34:00 CDT, stop date 02/26/20 7:34:00 CDT midazolam 2020-0 No 1 mg = 1 Lev trupti 8-13 mL, l 12:26: Injection, [place] 00 IV, Once, first dose 02/26/20 7:26:00 CDT, stop date 02/26/20 7:26:00 CDT midazolam 2020-0 No 1 mg = 1 Lev trupti 8-13 mL, l 12:26: Injection, [place] 00 IV, Once, first dose 02/26/20 7:26:00 CDT, stop date 02/26/20 7:26:00 CDT midazolam 2020-0 No 1 mg = 1 Lev trupti 8-13 mL, l 12:26: Injection, [place] 00 IV, Once, first dose 02/26/20 7:26:00 CDT, stop date 02/26/20 7:26:00 CDT midazolam 2020-0 No 1 mg = 1 Lev trupti 8-13 mL, l 12:26: Injection, [place] 00 IV, Once, first dose 02/26/20 7:26:00 CDT, stop date 02/26/20 7:26:00 CDT midazolam 2020-0 No 1 mg = 1 Lev trupti 8-13 mL, l 12:26: Injection, [place] 00 IV, Once, first dose 02/26/20 7:26:00 CDT, stop date 02/26/20 7:26:00 CDT midazolam 2020-0 No 1 mg = 1 Lev trupti 8-13 mL, l 12:26: Injection, [place] 00 IV, Once, first dose 02/26/20 7:26:00 CDT, stop date 02/26/20 7:26:00 CDT fentaNYL 2020-0 No 50 mcg = 1 Mem oria 8-13 mL, l 12:25: Injection, [place] 00 IV, Once, first dose 02/26/20 7:25:00 [...] Mem oria 8-13 mL, l 12:25: Injection, [place] 00 IV, Once, first dose 02/26/20 7:25:00 CDT, stop date 02/26/20 7:25:00 CDT fentaNYL 2020-0 No 50 mcg = 1 Mem oria 8-13 mL, l 12:25: Injection, [place] 00 IV, Once, first dose 02/26/20 7:25:00 [...] Injection, l IV Start 11:28: [facility]cutaneo [facility] [[facility]] 00 , Once PRN for other (see comment), first dose 02/26/20 6:28:00 CDT LR 1,000 mL 2020-0 No 1,000 mL, M emoria 8-13 IV, 30 l 11:28: mL/hr, start date 02/26/20 6:28:00 CDT, 2.14, m2 Lidocaine 2020-0 No 0.2 mL, Memor ia 2% 0.2 mL 8-13 Injection, l IV Start 11:28[facility] , Once PRN for other (see comment), first dose 02/26/20 6:28:00 CDT LR 1,000 mL 2020-0 No 1,000 mL, M emoria 8-13 IV, 30 l 11:28: mL/hr, start date 02/26/20 6:28:00 CDT, 2.14, m2 Lidocaine 2020-0 No 0.2 mL, Memor ia 2% 0.2 mL - Injection, l IV Start 11:28: [facility] , Once PRN for other (see comment), first dose 02/26/20 6:28:00 CDT LR 1,000 mL 2020-0 No 1,000 mL, M emoria 8-13 IV, 30 l 11:28: mL/hr, start date 02/26/20 6:28:00 CDT, 2.14, m2 Lidocaine 2020-0 No 0.2 mL, Memor ia 2% 0.2 mL - Injection, l IV Start 11:28: [facility] us, Once PRN for other (see comment), first dose 02/26/20 6:28:00 CDT LR 1,000 mL 2020-0 No 1,000 mL, M emoria 8-13 IV, 30 l 11:28: mL/hr, start date 02/26/20 6:28:00 CDT, 2.14, m2 Lidocaine 2020-0 No 0.2 mL, Memor ia 2% 0.2 mL 8-13 Injection, l IV Start 11:28: [facility] , Once PRN for other (see comment), first dose 02/26/20 6:28:00 CDT LR 1,000 mL 2020-0 No 1,000 mL, M emoria 8 IV, 30 l 11:28: mL/hr, start date 02/26/20 6:28:00 CDT, 2.14, m2 Lidocaine 2020-0 No 0.2 mL, Memor ia 2% 0.2 mL 02-25 Injection, l IV Start 11:28: [facility]cutaneo [facility] [[facility]] 00 , Once PRN for other (see comment), first dose 02/26/20 6:28:00 CDT Allergy 2020-0 Yes mg, Oral, Memor ia Relief 8-05 Daily, 0 l 17:06: Refill(s) [place] 00 Allergy 2020-0 Yes mg, Oral, Memor ia Relief 8-05 Daily, 0 l 17:06: Refill(s) [place] 00 Allergy 2020-0 Yes mg, Oral, Memor ia Relief 8-05 Daily, 0 l 17:06: Refill(s) [place] Allergy 2020-0 Yes mg, Oral, Memor ia Relief 8-05 Daily, 0 l 17:06: Refill(s) [place] Allergy 2020-0 Yes mg, Oral, Memor ia Relief 8-05 Daily, 0 l 17:06: Refill(s) [place] Allergy 2020-0 Yes mg, Oral, Memor ia Relief 8-05 Daily, 0 l 17:06: Refill(s) Tylenol PM 2020-0 Yes Oral, qHS, M emoria 8-05 0 l 17:05: Refill(s), [place] 00 sleep /pain Tylenol PM 2020-0 Yes Oral, qHS, M emoria 8-05 0 l 17:05: Refill(s), [place] 00 sleep /pain Tylenol PM 2020-0 Yes Oral, qHS, M emoria 8-05 0 l 17:05: Refill(s), [place] 00 sleep /pain Tylenol PM 2020-0 Yes Oral, qHS, M emoria 8-05 0 l 17:05: Refill(s), [place] 00 sleep /pain Tylenol PM 2020-0 Yes Oral, qHS, M emoria 8-05 0 l 17:05: Refill(s), [place] 00 sleep /pain Tylenol PM 2020-0 Yes Oral, qHS, M emoria 8-05 0 l 17:05: Refill(s), [place] 00 sleep /pain rizatriptan 2020-0 Yes 5 mg = 1 [...] Oral 8-05 tabs, l Tablet 17:04: Oral, [place] 00 Daily, 0 Refill(s), joint pain amitriptyli [...] oral 8-05 tabs, l tablet 17:04: Oral, [place] 00 Daily, 0 Refill(s) pantoprazol 2020-0 Yes 40 mg = 1 M emoria e 40 mg 8-05 tabs, l oral 17:04: Oral, [place] delayed 00 Daily, 0 release Refill(s), tablet GERD meloxicam 2020-0 Yes 7.5 mg = 1 Me moria 7.5 MG Oral 8-05 tabs, l Tablet 17:04: Oral, [place] 00 Daily, 0 Refill(s), joint pain amitriptyli 2020-0 Yes 75 mg = 1 M emoria ne 75 mg 8-05 tabs, l oral tablet 17:04: Oral, qHS, [place] 00 0 Refill(s), sleep levothyroxi 2020-0 Yes 25 mcg = 1 Memoria ne 25 mcg 8-05 tabs, l (0.025 mg) 17:04: Oral, [place] oral tablet 00 Daily, 0 Refill(s), hypothyroi d rizatriptan 2020-0 Yes 5 mg = 1 Me moria 5 mg oral 8-05 tabs, l tablet 17:04: Oral, [place] 00 Daily, 0 Refill(s) pantoprazol 2020-0 Yes 40 mg = 1 M emoria e 40 mg 8-05 tabs, l oral 17:04: Oral, [place] delayed 00 Daily, 0 release Refill(s), tablet [...] Oral 8-05 tabs, l Tablet 17:04: Oral, [place] 00 Daily, 0 Refill(s), joint pain amitriptyli 2020-0 Yes 75 mg = 1 M emoria ne 75 mg 8-05 tabs, l oral tablet 17:04: Oral, qHS, [place] 00 0 Refill(s), sleep levothyroxi 2020-0 Yes 25 mcg = 1 Memoria ne 25 mcg 8-05 tabs, l (0.025 mg) 17:04: Oral, [place] oral tablet 00 Daily, 0 Refill(s), hypothyroi d rizatriptan 2020-0 Yes 5 mg = 1 Me moria 5 mg oral 8-05 tabs, l tablet 17:04: Oral, [place] 00 Daily, 0 Refill(s) pantoprazol 2020-0 Yes 40 mg = 1 M emoria e 40 mg 8-05 tabs, l oral 17:04: Oral, [place] delayed 00 Daily, 0 release Refill(s), tablet GERD meloxicam 2020-0 Yes 7.5 mg = 1 Me moria 7.5 MG Oral 8-05 tabs, l Tablet 17:04: Oral, [place] 00 Daily, 0 Refill(s), joint pain amitriptyli 2020-0 Yes 75 mg = 1 M emoria ne 75 mg 8-05 tabs, l oral tablet 17:04: Oral, qHS, [place] 00 0 Refill(s), sleep levothyroxi 2020-0 Yes 25 mcg = 1 Memoria ne 25 mcg 8-05 tabs, l (0.025 mg) 17:04: Oral, [place] oral tablet 00 Daily, 0 Refill(s), hypothyroi d amitriptyli 2020-0 Yes 75 mg = 1 [...] oral 8-05 tabs, l tablet 17:04: Oral, [place] 00 Daily, 0 Refill(s) pantoprazol 2020-0 Yes 40 mg = 1 M emoria e 40 mg 8-05 tabs, l oral 17:04: Oral, [place] delayed 00 Daily, 0 release Refill(s), tablet [...] 1 TABLET BY MOUTH ONCE DAILY pantoprazol 2019- Yes pantoprazo Methodi e 8-[address] (PROTONIX) 00:00: tablet,del H ospita 40 MG EC 00 ayed l tablet release TAKE 1 TABLET BY MOUTH ONCE DAILY pantoprazol Yes pantoprazo Methodi e 8-[address] (PROTONIX) 00:00: tablet,del [facility] osp[facility] 40 MG EC 00 ayed l tablet release TAKE 1 TABLET BY MOUTH ONCE DAILY pantoprazol Yes pantoprazo Methodi e 8-[address] (PROTONIX) 00:00: tablet,del [facility] osp[facility] 40 MG EC 00 ayed l tablet release TAKE 1 TABLET BY MOUTH ONCE DAILY pantoprazol Yes pantoprazo Methodi e 8-[address] (PROTONIX) 00:00: tablet,del [facility] osp[facility] 40 MG EC 00 ayed l tablet release TAKE 1 TABLET BY MOUTH ONCE DAILY pantoprazol 0 Yes pantoprazo Methodi e 8-[address] (PROTONIX) 00:00: tablet,del [facility] osp[facility] 40 MG EC 00 ayed l tablet release TAKE 1 TABLET BY MOUTH ONCE DAILY pantoprazol Yes pantoprazo Methodi e 8-[address] (PROTONIX) 00:00: tablet,del [facility] osp[facility] 40 MG EC 00 ayed l tablet release TAKE 1 TABLET BY MOUTH ONCE DAILY pantoprazol Yes pantoprazo Methodi e 8-[address] (PROTONIX) 00:00: tablet,del [facility] osp[facility] 40 MG EC 00 ayed l tablet release TAKE 1 TABLET BY MOUTH ONCE DAILY pantoprazol 2019- Yes pantoprazo Methodi e 8-[address] (PROTONIX) 00:00: tablet,del [facility]sp[facility] 40 MG EC 00 ayed l tablet release TAKE 1 TABLET BY MOUTH ONCE DAILY amitriptyli 0 Yes = 1 tab, Me moria ne 75 mg 7-02 PO, l oral tablet 20:24: Bedtime, # [place] 00 30 ea, 5 Refill(s), Pharmacy: [facility], 152.4, cm, 01/15/20 15:04:00 CDT, Height, 115.455, kg, 01/15/20 15:04:00 CDT, Weight rizatriptan 2020-0 Yes 5 mg = 1 Me moria 5 MG Oral 7-02 tab, PO, l Tablet 20:24: ONCE, PRN [place] n [Maxalt] 00 for migraine headache, # 9 tab, 1 Refill(s), Pharmacy: [facility], 152.4, cm, 01/15/20 15:04:00 CDT, Height, 115.455, kg, 01/15/20 15:04:00 CDT, Weight amitriptyli 2020-0 Yes = 1 tab, Me moria ne 75 mg 7-02 PO, l oral tablet 20:24: Bedtime, # [place] 00 30 ea, 5 Refill(s), Pharmacy: [facility], 152.4, cm, 01/15/20 15:04:00 CDT, Height, 115.455, kg, 01/15/20 15:04:00 CDT, Weight rizatriptan 2020-0 Yes 5 mg = 1 Me moria 5 MG Oral 7-02 tab, PO, l Tablet 20:24: ONCE, PRN [place] [Maxalt] 00 for migraine headache, # 9 tab, 1 Refill(s), Pharmacy: [facility], 152.4, cm, 01/15/20 15:04:00 CDT, Height, 115.455, kg, 01/15/20 15:04:00 CDT, Weight amitriptyli 2020-0 Yes = 1 tab, Me moria ne 75 mg 7-02 PO, l oral tablet 20:24: Bedtime, # [place] 00 30 ea, 5 Refill(s), Pharmacy: [facility], 152.4, cm, 01/15/20 15:04:00 CDT, Height, 115.455, kg, 01/15/20 15:04:00 CDT, Weight rizatriptan 2020-0 Yes 5 mg = 1 Me moria 5 MG Oral 7-02 tab, PO, l Tablet 20:24: ONCE, PRN [place] [Maxalt] 00 for migraine headache, # 9 tab, 1 Refill(s), Pharmacy: [facility], 152.4, cm, 01/15/20 15:04:00 CDT, Height, 115.455, kg, 01/15/20 15:04:00 CDT, Weight amitriptyli 2020-0 Yes = 1 tab, Me moria ne 75 mg 7-02 PO, l oral tablet 20:24: Bedtime, # [place] 00 30 ea, 5 Refill(s), Pharmacy: [facility], 152.4, cm, 01/15/20 15:04:00 CDT, Height, 115.455, kg, 01/15/20 15:04:00 CDT, Weight rizatriptan 2020-0 Yes 5 mg = 1 Me moria 5 MG Oral 7-02 tab, PO, l Tablet 20:24: ONCE, PRN [place] [Maxalt] 00 for migraine headache, # 9 tab, 1 Refill(s), Pharmacy: [facility], 152.4, cm, 01/15/20 15:04:00 CDT, Height, 115.455, kg, 01/15/20 15:04:00 CDT, Weight amitriptyli 2020-0 Yes = 1 tab, Me moria ne 75 mg 7-02 PO, l oral tablet 20:24: Bedtime, # [place] 00 30 ea, 5 Refill(s), Pharmacy: [facility], 152.4, cm, 01/15/20 15:04:00 CDT, Height, 115.455, kg, 01/15/20 15:04:00 CDT, Weight rizatriptan 2020-0 Yes 5 mg = 1 Me moria 5 MG Oral 7-02 tab, PO, l Tablet 20:24: ONCE, PRN [place] [Maxalt] 00 for migraine headache, # 9 tab, 1 Refill(s), Pharmacy: [facility], 152.4, cm, 01/15/20 15:04:00 CDT, Height, 115.455, kg, 01/15/20 15:04:00 CDT, Weight amitriptyli 2020-0 Yes = 1 tab, Me moria ne 75 mg 7-02 PO, l oral tablet 20:24: Bedtime, # [place] 00 30 ea, 5 Refill(s), Pharmacy: [facility], 152.4, cm, 01/15/20 15:04:00 CDT, Height, 115.455, kg, 01/15/20 15:04:00 CDT, Weight rizatriptan 2020-0 Yes 5 mg = 1 Me moria 5 MG Oral 7-02 tab, PO, l Tablet 20:24: ONCE, PRN [place] [Maxalt] 00 for migraine headache, # 9 tab, 1 Refill(s), Pharmacy: [facility], 152.4, cm, 01/15/20 15:04:00 CDT, Height, 115.455, kg, 01/15/20 15:04:00 CDT, Weight rizatriptan 2020-0 Yes 5 mg = 1 Me moria 5 MG Oral 5-19 tab, PO, l Tablet 21:06: ONCE, PRN [place] [Maxalt] 00 for migraine headache, # 9 tab, 1 Refill(s), Pharmacy: [facility] amitriptyli 2020-0 Yes = 1 tab, Me moria ne 75 mg 5-19 PO, l oral tablet 21:06: Bedtime, # [place] 00 30 ea, 1 Refill(s), Pharmacy: [facility] rizatriptan 2020-0 Yes 5 mg = 1 Me moria 5 MG Oral 5-19 tab, PO, l Tablet 21:06: ONCE, PRN [place] [Maxalt] 00 for migraine headache, # 9 tab, 1 Refill(s), Pharmacy: [facility]08 amitriptyli 2020-0 Yes = 1 tab, Me moria ne 75 mg 5-19 PO, l oral tablet 21:06: Bedtime, # [place] 00 30 ea, 1 Refill(s), Pharmacy: [facility] rizatriptan 2020-0 Yes 5 mg = 1 Me moria 5 MG Oral 5-19 tab, PO, l Tablet 21:06: ONCE, PRN [place] n [Maxalt] 00 for migraine headache, # 9 tab, 1 Refill(s), Pharmacy: [facility] amitriptyli 2020-0 Yes = 1 tab, Me moria ne 75 mg 5-19 PO, l oral tablet 21:06: Bedtime, # [place] 00 30 ea, 1 Refill(s), Pharmacy: [facility] 80 rizatriptan 2020-0 Yes 5 mg = 1 Me moria 5 MG Oral 5-19 tab, PO, l Tablet 21:06: ONCE, PRN [place] n [Maxalt] 00 for migraine headache, # 9 tab, 1 Refill(s), Pharmacy: [facility] 80 amitriptyli 2020-0 Yes = 1 tab, Me moria ne 75 mg 5-19 PO, l oral tablet 21:06: Bedtime, # [place] 00 30 ea, 1 Refill(s), Pharmacy: [facility] rizatriptan 2020-0 Yes 5 mg = 1 Me moria 5 MG Oral 5-19 tab, PO, l Tablet 21:06: ONCE, PRN [place] n [Maxalt] 00 for migraine headache, # 9 tab, 1 Refill(s), Pharmacy: [facility] amitriptyli 2020-0 Yes = 1 tab, Me moria ne 75 mg 5-19 PO, l oral tablet 21:06: Bedtime, # [place] 00 30 ea, 1 Refill(s), Pharmacy: [facility] 80 amitriptyli 2020-0 Yes = 1 tab, Me moria ne 75 mg 5-19 PO, l oral tablet 21:06: Bedtime, # [place] 00 30 ea, 1 Refill(s), Pharmacy: [facility] rizatriptan 2020-0 Yes 5 mg = 1 Me moria 5 MG Oral 5-19 tab, PO, l Tablet 21:06: ONCE, PRN [place] [Maxalt] 00 for migraine headache, # 9 tab, 1 Refill(s), Pharmacy: [facility] loratadine 2018-0 Yes loratadine M ethodi (CLARITIN) 03-23 10 [...] TABLET BY MOUTH ONCE DAILY sod Yes [id number] 1{bottl Use 1 Unive rs chlor-bicar 03-23 e} Bottle in ity of b-squeez 00:00: each [place] bottle 00 nostril 2 Medical (NEILMED (two) Branch SINUS RINSE times COMPLETE) daily. Use pkdv in hot shower 1 hour before bedtime loratadine Yes [id number] 10mg Take 1 U nivers 10 mg 9-08 tablet by ity of tablet 00:00: mouth [place] 00 daily. Medical Branch sod Yes [id number] 1{bottl Use 1 Unive rs chlor-bicar 03-23 e} Bottle in ity of b-squeez 00:00: each [place] bottle 00 nostril 2 Medical (NEILMED (two) Branch SINUS RINSE times COMPLETE) daily. Use pkdv in hot shower 1 hour before bedtime loratadine Yes [id number] 10mg Take 1 U nivers 10 mg 9-08 tablet by ity of tablet 00:00: mouth [place] 00 daily. Medical Branch sod Yes [id number] 1{bottl Use 1 Unive rs chlor-bicar 9-08 e} Bottle in ity of b-squeez 00:00: each [place] bottle 00 nostril 2 Medical (NEILMED (two) Branch SINUS RINSE times COMPLETE) daily. Use pkdv in hot shower 1 hour before bedtime loratadine Yes [id number] 10mg Take 1 U nivers 10 mg 9-08 tablet by ity of tablet 00:00: mouth [place] 00 daily. Medical Branch sod Yes [id number] 1{bottl Use 1 Unive rs chlor-bicar 9-08 e} Bottle in ity of b-squeez 00:00: each [place] bottle 00 nostril 2 Medical (NEILMED (two) Branch SINUS RINSE times COMPLETE) daily. Use pkdv in hot shower 1 hour before bedtime loratadine Yes [id number] 10mg Take 1 U nivers 10 mg 9-08 tablet by ity of tablet 00:00: mouth [place] 00 daily. Medical Branch amitriptyli Yes 75 mg = 1 M emoria ne 75 mg 8-22 tab, PO, l oral tablet 18:27: Bedtime, # [place] 00 30 tab, 1 Refill(s), Pharmacy: [facility] [id number] amitriptyli Yes 75 mg = 1 M emoria ne 75 mg 8-22 tab, PO, l oral tablet 18:27: Bedtime, # [place] 00 30 tab, 1 Refill(s), Pharmacy: [facility] 80 amitriptyli Yes 75 mg = 1 M emoria ne 75 mg 8-22 tab, PO, l oral tablet 18:27: Bedtime, # [place] 00 30 tab, 1 Refill(s), Pharmacy: [facility] amitriptyli 2019-0 Yes 75 mg = 1 M emoria ne 75 mg 8-22 tab, PO, l oral tablet 18:27: Bedtime, # [place] 00 30 tab, 1 Refill(s), Pharmacy: [facility] amitriptyli 2019-0 Yes 75 mg = 1 M emoria ne 75 mg 8-22 tab, PO, l oral tablet 18:27: Bedtime, # [place] 00 30 tab, 1 Refill(s), Pharmacy: [facility] amitriptyli 2019-0 Yes 75 mg = 1 M emoria ne 75 mg 8-22 tab, PO, l oral tablet 18:27: Bedtime, # [place] 00 30 tab, 1 Refill(s), Pharmacy: [facility] rizatriptan 2019-0 Yes 5 mg = 1 Me moria 5 MG Oral 8-02 tab, PO, l Tablet 20:24: ONCE, PRN [place] n [Maxalt] 09 for migraine headache, # 9 tab, 1 Refill(s), Pharmacy: [facility] rizatriptan 2019-0 Yes 5 mg = 1 Me moria 5 MG Oral 8-02 tab, PO, l Tablet 20:24: ONCE, PRN [place] n [Maxalt] 09 for migraine headache, # 9 tab, 1 Refill(s), Pharmacy: [facility] rizatriptan 2019-0 Yes 5 mg = 1 Me moria 5 MG Oral 8-02 tab, PO, l Tablet 20:24: ONCE, PRN [place] n [Maxalt] 09 for migraine headache, # 9 tab, 1 Refill(s), Pharmacy: [facility] rizatriptan 2019-0 Yes 5 mg = 1 Me moria 5 MG Oral 8-02 tab, PO, l Tablet 20:24: ONCE, PRN [place] n [Maxalt] 09 for migraine headache, # 9 tab, 1 Refill(s), Pharmacy: [facility] rizatriptan 2019-0 Yes 5 mg = 1 Me moria 5 MG Oral 8-02 tab, PO, l Tablet 20:24: ONCE, PRN Burak n [Maxalt] 09 for migraine headache, # 9 tab, 1 Refill(s), Pharmacy: [place] [address] rizatriptan 2018- Yes 5 mg = 1 Me moria 5 MG Oral 8-02 tab, PO, l Tablet 20:24: ONCE, PRN Burak lozano [Maxalt] 09 for migraine headache, # 9 tab, 1 Refill(s), Pharmacy: [facility] thiamine Yes 100 mg = 1 Mem oria 100 mg oral 8-02 tab, PO, l tablet 20:23: Daily, X [place] 17 30 day, # 30 tab, 3 Refill(s), Pharmacy: [place] [address] thiamine Yes 100 mg = 1 Mem oria 100 mg oral 8-02 tab, PO, l tablet 20:23: Daily, X [place] 17 30 day, # 30 tab, 3 Refill(s), Pharmacy: [place] [address] thiamine Yes 100 mg = 1 Mem oria 100 mg oral 8-02 tab, PO, l tablet 20:23: Daily, X [place] 17 30 day, # 30 tab, 3 Refill(s), Pharmacy: [place] [address] thiamine Yes 100 mg = 1 Mem oria 100 mg oral 8-02 tab, PO, l tablet 20:23: Daily, X [place] 17 30 day, # 30 tab, 3 Refill(s), Pharmacy: [place] [address] thiamine Yes 100 mg = 1 Mem oria 100 mg oral 8-02 tab, PO, l tablet 20:23: Daily, X [place] 17 30 day, # 30 tab, 3 Refill(s), Pharmacy: [place] [address] thiamine Yes 100 mg = 1 Mem oria 100 mg oral 8-02 tab, PO, l tablet 20:23: Daily, X [place] 17 30 day, # 30 tab, 3 Refill(s), Pharmacy: [facility] cyanocobala Yes 1,000 Memor ia min 1000 8-02 microgram l mcg 20:23: = 1 tab, [place] sublingual 13 SL, Daily, tablet # 30 tab, 2 Refill(s), Pharmacy: [place] [address] cyanocobala Yes 1,000 Memor ia min 1000 8-02 microgram l mcg 20:23: = 1 tab, [place] sublingual 13 SL, Daily, tablet # 30 tab, 2 Refill(s), Pharmacy: [facility] cyanocobala 2018- Yes 1,000 Memor ia min 1000 8-02 microgram l mcg 20:23: = 1 tab, [place] sublingual 13 SL, Daily, tablet # 30 tab, 2 Refill(s), Pharmacy: [facility] cyanocobala Yes 1,000 Memor ia min 1000 8-02 microgram l mcg 20:23: = 1 tab, [place] sublingual 13 SL, Daily, tablet # 30 tab, 2 Refill(s), Pharmacy: [facility] cyanocobala Yes 1,000 Memor ia min 1000 8-02 microgram l mcg 20:23: = 1 tab, [place] sublingual 13 SL, Daily, tablet # 30 tab, 2 Refill(s), Pharmacy: [facility] cyanocobala Yes 1,000 Memor ia min 1000 8-02 microgram l mcg 20:23: = 1 tab, [place] sublingual 13 SL, Daily, tablet # 30 tab, 2 Refill(s), Pharmacy: [facility] amitriptyli Yes 50 mg = 1 M emoria ne 50 mg 8-02 tab, PO, l oral tablet 20:23: Bedtime, # [place] 09 30 tab, 1 Refill(s), Pharmacy: [facility] amitriptyli Yes 50 mg = 1 M emoria ne 50 mg 8-02 tab, PO, l oral tablet 20:23: Bedtime, # [place] 09 30 tab, 1 Refill(s), Pharmacy: [facility] amitriptyli Yes 50 mg = 1 M emoria ne 50 mg 8-02 tab, PO, l oral tablet 20:23: Bedtime, # [place] 09 30 tab, 1 Refill(s), Pharmacy: [facility] amitriptyli Yes 50 mg = 1 M emoria ne 50 mg 8-02 tab, PO, l oral tablet 20:23: Bedtime, # [place] 09 30 tab, 1 Refill(s), Pharmacy: [facility] 808 amitriptyli Yes 50 mg = 1 M emoria ne 50 mg 8-02 tab, PO, l oral tablet 20:23: Bedtime, # [place] 30 tab, 1 Refill(s), Pharmacy: [facility] 808 amitriptyli Yes 50 mg = 1 M emoria ne 50 mg 8-02 tab, PO, l oral tablet 20:23: Bedtime, # [place] 30 tab, 1 Refill(s), Pharmacy: [facility] 808 rizatriptan Yes rizatripta Methodi (MAXALT) [...] day, # 6 tab, 1 Refill(s), Pharmacy: [facility] amitriptyli No 50 mg = 1 M emoria ne 50 mg 7-13 tab, PO, l oral tablet 01:53: Bedtime, # [place] 00 30 tab, 1 Refill(s), Pharmacy: [facility] rizatriptan No 5 mg = 1 Me moria 5 MG Oral 7-13 tab, PO, l Tablet 01:53: Daily, PRN [place] nn [Maxalt] 00 for migraine headache, X 6 day, # 6 tab, 1 Refill(s), Pharmacy: [facility] 80 amitriptyli No 50 mg = 1 M emoria ne 50 mg 7-13 tab, PO, l oral tablet 01:53: Bedtime, # [place] 00 30 tab, 1 Refill(s), Pharmacy: [facility] 808 rizatriptan No 5 mg = 1 Me moria 5 MG Oral 7-13 tab, PO, l Tablet 01:53: Daily, PRN [place] nn [Maxalt] 00 for migraine headache, X 6 day, # 6 tab, 1 Refill(s), Pharmacy: [facility] 808 amitriptyli No 50 mg = 1 M emoria ne 50 mg 7-13 tab, PO, l oral tablet 01:53: Bedtime, # [place] 00 30 tab, 1 Refill(s), Pharmacy: [facility] 808 rizatriptan 2019-0 No 5 mg = 1 Me moria 5 MG Oral 7-13 tab, PO, l Tablet 01:53: Daily, PRN [place] nn [Maxalt] 00 for migraine headache, X 6 day, # 6 tab, 1 Refill(s), Pharmacy: [facility] amitriptyli 2019-0 No 50 mg = 1 M emoria ne 50 mg 7-13 tab, PO, l oral tablet 01:53: Bedtime, # [place] 00 30 tab, 1 Refill(s), Pharmacy: [facility] rizatriptan 2019-0 No 5 mg = 1 Me moria 5 MG Oral 7-13 tab, PO, l Tablet 01:53: Daily, PRN [place] nn [Maxalt] 00 for migraine headache, X 6 day, # 6 tab, 1 Refill(s), Pharmacy: [facility] amitriptyli 2019-0 No 50 mg = 1 M emoria ne 50 mg 7-13 tab, PO, l oral tablet 01:53: Bedtime, # [place] 00 30 tab, 1 Refill(s), Pharmacy: [facility] rizatriptan 2019-0 No 5 mg = 1 Me moria 5 MG Oral 7-13 tab, PO, l Tablet 01:53: Daily, PRN [place] nn [Maxalt] 00 for migraine headache, X 6 day, # 6 tab, 1 Refill(s), Pharmacy: [facility] amitriptyli 2019-0 No 50 mg = 1 M emoria ne 50 mg 7-13 tab, PO, l oral tablet 01:53: Bedtime, # [place] 00 30 tab, 1 Refill(s), Pharmacy: [facility] frovatripta 2019-0 No 2.5 mg = 1 Memoria n 2.5 mg 6-27 tab, PO, l oral tablet 15:37: Daily, PRN [place] 00 for migraine headache, May repeat another dose at least 2 hours after the first dose, X 3 day, # 9 tab, 2 Refill(s), Pharmacy: [facility] frovatripta 2019-0 No 2.5 mg = 1 Memoria n 2.5 mg 6-27 tab, PO, l oral tablet 15:37: Daily, PRN [place] 00 for migraine headache, May repeat another dose at least 2 hours after the first dose, X 3 day, # 9 tab, 2 Refill(s), Pharmacy: [facility] frovatripta 2018- No 2.5 mg = 1 Memoria n 2.5 mg 6-27 tab, PO, l oral tablet 15:37: Daily, PRN [place] 00 for migraine headache, May repeat another dose at least 2 hours after the first dose, X 3 day, # 9 tab, 2 Refill(s), Pharmacy: [place] [address] frovatripta No 2.5 mg = 1 Memoria n 2.5 mg 6-27 tab, PO, l oral tablet 15:37: Daily, PRN [place] 00 for migraine headache, May repeat another dose at least 2 hours after the first dose, X 3 day, # 9 tab, 2 Refill(s), Pharmacy: [place] [address] frovatripta No 2.5 mg = 1 Memoria n 2.5 mg 6-27 tab, PO, l oral tablet 15:37: Daily, PRN [place] 00 for migraine headache, May repeat another dose at least 2 hours after the first dose, X 3 day, # 9 tab, 2 Refill(s), Pharmacy: [place] [address] frovatripta No 2.5 mg = 1 Memoria n 2.5 mg 6-27 tab, PO, l oral tablet 15:37: Daily, PRN [place] 00 for migraine headache, May repeat another dose at least 2 hours after the first dose, X 3 day, # 9 tab, 2 Refill(s), Pharmacy: [facility] eletriptan No See Memoria 40 MG Oral 6-25 Instructio l Tablet 23:35: ns, PO, [place] [Relpax] 00 Take 1-2 tabs orally at onset of migraine, may repeat dose once in 2 hours, X 3 day, # 6 tab, 1 Refill(s), Pharmacy: [facility] eletriptan No See Memoria 40 MG Oral 6-25 Instructio l Tablet 23:35: ns, PO, [place] [Relpax] 00 Take 1-2 tabs orally at onset of migraine, may repeat dose once in 2 hours, X 3 day, # 6 tab, 1 Refill(s), Pharmacy: [facility] eletriptan No See Memoria 40 MG Oral 6-25 Instructio l Tablet 23:35: ns, PO, [place] [Relpax] 00 Take 1-2 tabs orally at onset of migraine, may repeat dose once in 2 hours, X 3 day, # 6 tab, 1 Refill(s), Pharmacy: [facility] eletriptan No See Memoria 40 MG Oral 6-25 Instructio l Tablet 23:35: ns, PO, [place] [Relpax] 00 Take 1-2 tabs orally at onset of migraine, may repeat dose once in 2 hours, X 3 day, # 6 tab, 1 Refill(s), Pharmacy: [facility] eletriptan No See Memoria 40 MG Oral 6-25 Instructio l Tablet 23:35: ns, PO, [place] [Relpax] 00 Take 1-2 tabs orally at onset of migraine, may repeat dose once in 2 hours, X 3 day, # 6 tab, 1 Refill(s), Pharmacy: [facility] eletriptan No See Memoria 40 MG Oral 6-25 Instructio l Tablet 23:35: ns, PO, [place] [Relpax] 00 Take 1-2 tabs orally at onset of migraine, may repeat dose once in 2 hours, X 3 day, # 6 tab, 1 Refill(s), Pharmacy: [facility] amitriptyli Yes 25 mg = 1 M emoria ne 25 mg 6-11 tab, PO, l oral tablet 21:16: Bedtime, # [place] 00 30 tab, 3 Refill(s), Pharmacy: [facility] amitriptyli Yes 25 mg = 1 M emoria ne 25 mg 6-11 tab, PO, l oral tablet 21:16: Bedtime, # [place] 00 30 tab, 3 Refill(s), Pharmacy: [facility] amitriptyli Yes 25 mg = 1 M emoria ne 25 mg 6-11 tab, PO, l oral tablet 21:16: Bedtime, # [place] 00 30 tab, 3 Refill(s), Pharmacy: [facility] amitriptyli Yes 25 mg = 1 M emoria ne 25 mg 6-11 tab, PO, l oral tablet 21:16: Bedtime, # [place] 00 30 tab, 3 Refill(s), Pharmacy: [facility] amitriptyli Yes 25 mg = 1 M emoria ne 25 mg 6-11 tab, PO, l oral tablet 21:16: Bedtime, # [place] 00 30 tab, 3 Refill(s), Pharmacy: [facility] amitriptyli Yes 25 mg = 1 M emoria ne 25 mg 6-11 tab, PO, l oral tablet 21:16: Bedtime, # [place] 00 30 tab, 3 Refill(s), Pharmacy: [facility] cyanocobala Yes 1,000 Memor ia min 1000 6-07 microgram l mcg 19:39: = 1 tab, [place] sublingual 00 SL, Daily, tablet # 30 tab, 2 Refill(s), Pharmacy: [facility] cyanocobala Yes 1,000 Memor ia min 1000 6-07 microgram l mcg 19:39: = 1 tab, [place] sublingual 00 SL, Daily, tablet # 30 tab, 2 Refill(s), Pharmacy: [facility] cyanocobala Yes 1,000 Memor ia min 1000 6-07 microgram l mcg 19:39: = 1 tab, [place] sublingual 00 SL, Daily, tablet # 30 tab, 2 Refill(s), Pharmacy: [facility] cyanocobala Yes 1,000 Memor ia min 1000 6-07 microgram l mcg 19:39: = 1 tab, [place] sublingual 00 SL, Daily, tablet # 30 tab, 2 Refill(s), Pharmacy: [facility] cyanocobala Yes 1,000 Memor ia min 1000 6-07 microgram l mcg 19:39: = 1 tab, [place] sublingual 00 SL, Daily, tablet # 30 tab, 2 Refill(s), Pharmacy: [facility] cyanocobala 2018-0 Yes 1,000 Memor ia min 1000 6-07 microgram l mcg 19:39: = 1 tab, [place] sublingual 00 SL, Daily, tablet # 30 tab, 2 Refill(s), Pharmacy: [facility] thiamine 0 Yes 100 mg = 1 Mem oria 100 mg oral 5-17 tab, PO, l tablet 18:13: Daily, X [place] 00 30 day, # 30 tab, 3 Refill(s), Pharmacy: [place] [address] thiamine Yes 100 mg = 1 Mem oria 100 mg oral 5-17 tab, PO, l tablet 18:13: Daily, X [place] 00 30 day, # 30 tab, 3 Refill(s), Pharmacy: [place] [address] thiamine Yes 100 mg = 1 Mem oria 100 mg oral 5-17 tab, PO, l tablet 18:13: Daily, X [place] 00 30 day, # 30 tab, 3 Refill(s), Pharmacy: [place] [address] thiamine Yes 100 mg = 1 Mem oria 100 mg oral 5-17 tab, PO, l tablet 18:13: Daily, X [place] 00 30 day, # 30 tab, 3 Refill(s), Pharmacy: [place] [address] thiamine 0 Yes 100 mg = 1 Mem oria 100 mg oral 5-17 tab, PO, l tablet 18:13: Daily, X [place] 00 30 day, # 30 tab, 3 Refill(s), Pharmacy: [place] [address] thiamine 0 Yes 100 mg = 1 Mem oria 100 mg oral 5-17 tab, PO, l tablet 18:13: Daily, X [place] 00 30 day, # 30 tab, 3 Refill(s), Pharmacy: [facility] amitriptyli 2019-0 Yes 10 mg = 1 M emoria ne 10 mg 5-10 tab, PO, l oral tablet 20:44: Bedtime, # [place] 00 30 tab, 3 Refill(s), Pharmacy: [place] [address] amitriptyli 2019-0 Yes 10 mg = 1 M emoria ne 10 mg 5-10 tab, PO, l oral tablet 20:44: Bedtime, # [place] 00 30 tab, 3 Refill(s), Pharmacy: [facility] 808 amitriptyli 2019-0 Yes 10 mg = 1 M emoria ne 10 mg 5-10 tab, PO, l oral tablet 20:44: Bedtime, # [place] 00 30 tab, 3 Refill(s), Pharmacy: [facility] 80 amitriptyli 2019-0 Yes 10 mg = 1 M emoria ne 10 mg 5-10 tab, PO, l oral tablet 20:44: Bedtime, # [place] 00 30 tab, 3 Refill(s), Pharmacy: [facility] amitriptyli 2019-0 Yes 10 mg = 1 M emoria ne 10 mg 5-10 tab, PO, l oral tablet 20:44: Bedtime, # [place] 00 30 tab, 3 Refill(s), Pharmacy: [facility] amitriptyli 2019-0 Yes 10 mg = 1 M emoria ne 10 mg 5-10 tab, PO, l oral tablet 20:44: Bedtime, # [place] 00 30 tab, 3 Refill(s), Pharmacy: [facility] 8 gabapentin 2019-0 Yes 300 mg = 1 [...] [place] nn 00 cap, 1 Refill(s) levothyroxi Yes 50 Method i ne [...] 00:00: mouth [place] 00 every Medical morning. [place] levothyroxi Yes 50ug Take 1 Univ ers ne 50 mcg 4-30 tablet by ity o f tablet 00:00: mouth [place] 00 every Medical morning. [place] levothyroxi Yes 50ug Take 1 Univ ers ne 50 mcg 4-30 tablet by ity o f tablet 00:00: mouth [place] 00 every Medical morning. [place] levothyroxi Yes 50ug Take 1 Univ ers ne 50 mcg 4-30 tablet by ity o f tablet 00:00: mouth [place] 00 every Medical morning. [place] escitalopra 20170 Yes 10mg Take 1 Univ ers m oxalate 1-24 tablet by ity o f 10 mg 00:00: mouth [place] tablet 00 daily. [facility] escitalopra Yes 10mg Take 1 Univ ers m oxalate 1-24 tablet by ity o f 10 mg 00:00: mouth [place] tablet 00 daily. [facility] escitalopra 0 Yes 10mg Take 1 Univ ers m oxalate 1-24 tablet by ity o f 10 mg 00:00: mouth [place] tablet 00 daily. [facility] escitalopra 0 Yes 10mg Take 1 Univ ers m oxalate 1-24 tablet by ity o f 10 mg 00:00: mouth [place] tablet 00 daily. [facility] bisoprolol Yes 1 tablet Met [...] a day [facility] bisoprolol Yes [id number] 10mg Take 1 U nivers 10 mg 1-11 tablet by ity of tablet 00:00: mouth [place] 00 daily. [facility] cyclobenzap Yes [id number] 10mg Take 1 Univers rine 10 mg 1-11 tablet by ity of tablet 00:00: mouth at [place] 00 bedtime. [facility] bisoprolol Yes [id number] 10mg Take 1 U nivers 10 mg 1-11 tablet by ity of tablet 00:00: mouth [place] 00 daily. [facility] cyclobenzap Yes [id number] 10mg Take 1 Univers rine 10 mg 1-11 tablet by ity of tablet 00:00: mouth at [place] 00 bedtime. [facility] bisoprolol Yes [id number] 10mg Take 1 U nivers 10 mg 1-11 tablet by ity of tablet 00:00: mouth [place] 00 daily. [facility] cyclobenzap Yes [id number] 10mg Take 1 Univers rine 10 mg 1-11 tablet by ity of tablet 00:00: mouth at [place] 00 bedtime. [facility] bisoprolol Yes [id number] 10mg Take 1 U nivers 10 mg 1-11 tablet by ity of tablet 00:00: mouth [place] 00 daily. [facility] cyclobenzap Yes [id number] 10mg Take 1 Univers rine 10 mg 1-11 tablet by ity of tablet 00:00: mouth at [place] 00 bedtime. Medical Branch PROAIR HFA 2015-07 Yes Univers 90 1-30 [...] [place] %) 00 Medical nebulizer Branch solution montelukast 2015-07 Yes 10mg Take 10 [...] mcg/actuati 00:00: [place] on nasal 00 Medical beatty Branch fluticasone Yes Univer s 50 9-02 ity of mcg/actuati 00:00: [place] on nasal 00 Medical spray Branch fluticasone Yes Univer s 50 9-02 ity of mcg/actuati 00:00: [place] on nasal 00 Medical spray Branch fluticasone 2015- Yes Univer s 50 -02 ity of mcg/actuati 00:00: [place] on nasal 00 Medical spray Branch fluticasone [...] Immunizations Ordered Filled Immunization Date Status Comments [facility] e Immunization Name Name Covid-19 Vaccine 2021-03-31 Completed Rosi esposito (Moderna), 00:00:00 Mrna-lnp, Shade Protein, Pf, 100 Mcg/0.5ml,IM Covid-19 Vaccine 2021-03-02 Completed Rosi esposito (Moderna), 00:00:00 Mrna-lnp, [place]ade Protein, Pf, 100 Mcg/0.5ml,IM TDAP 2016-07-24 Completed University 00:00:00 [facility] Influenza Virus 2016-07-24 Completed Universit y of Vaccine Quad IM 3+ 00:00:00 [facility] TDAP 2016-07-24 Completed University 00:00:00 [facility] Influenza Virus 2016-07-24 Completed Universit y of Vaccine Quad IM 3+ 00:00:00 [facility] TDAP 2016-07-24 Completed University of 00:00:00 [facility] Influenza Virus 2016-07-24 Completed Universit y of Vaccine Quad IM 3+ 00:00:00 [facility] TDAP 2016-07-24 Completed University of 00:00:00 [facility] Influenza Virus 2016-07-24 Completed Universit y of Vaccine Quad IM 3+ 00:00:00 [facility] Influenza Virus 2016-07-24 Completed Rosi solano Vaccine, No 00:00:00 Preserv, age 6 months and up Tdap- (Boostrix, 2016-07-24 Completed Rosi esposito Adacel) 00:00:00 Tdap- (Boostrix, 2010-01-18 Completed Rosi esposito Adacel) 00:00:00 Vital Signs Vital Name Observation Time Observation Value Comments Source Systolic blood 2021-10-10 20:19:00 141 mm[Hg] Univer sity of pressure [facility] Diastolic blood 2021-10-10 20:19:00 98 mm[Hg] Unive rsity of pressure [facility] Heart rate 2021-10-10 20:19:00 109 /min Universi ty [facility] Body temperature 2021-10-10 20:19:00 [facility]94 [facility] 2021-10-10 20:19:00 18 /[facility] Body height 2021-10-10 20:19:00 160 cm [facility] Body weight 2021-10-10 20:19:00 [facility] 2021-10-10 20:19:00 45.17 kg/m2 [facility] Oxygen saturation in 2021-10-10 20:19:00 97 /min [facility] Arterial blood by [facility] oximetry Branch Systolic blood 2021-04-28 14:43:00 100 mm[Hg] Rosi ybfiona pressure Diastolic blood 2021-04-28 14:43:00 60 mm[Hg] [...] blood pressure 2021-03-30 10:10:00 121 mm[Hg] [facility] blood pressure 2021-03-30 10:10:00 73 mm[Hg] [facility] height 2021-03-30 10:10:00 60.75 [in_i] Common [facility] weight 2021-03-30 10:10:00 245 [lb_av] Common [facility] temperature 2021-03-30 10:10:00 97.2 [degF] [facility] bmi 2021-03-30 10:10:00 46.67 kg/m2 Common [facility] oximetry 2021-03-30 10:10:00 100 % Common [facility] respiratory rate 2021-03-30 10:10:00 17 /min Comm on [facility] height 2021-02-15 16:20:00 60.75 [in_i] Common [facility] weight 2021-02-15 16:20:00 251.6 [lb_av] Common [facility] temperature 2021-02-15 16:20:00 97.3 [degF] Common [facility] bmi 2021-02-15 16:20:00 47.93 kg/m2 Common [facility] oximetry 2021-02-15 16:20:00 97 % [facility] respiratory rate 2021-02-15 16:20:00 18 /min Comm on [facility] blood pressure 2021-02-15 16:20:00 120 mm[Hg] Common [facility] - systolic [facility] blood pressure 2021-02-15 16:20:00 76 mm[Hg] Common [facility] - diastolic [facility] Systolic blood 2021-02-11 13:34:00 127 mm[Hg] [facility]iver [facility] Diastolic blood 2021-02-11 13:34:00 87 mm[Hg] Unive rsity of pressure [facility] Heart rate 2021-02-11 13:34:00 100 /min Universi ty of [facility] Body height 2021-02-11 13:34:00 160 cm [facility] Body weight 2021-02-11 13:34:00 115.667 kg [facility] BMI 2021-02-11 13:34:00 45.17 kg/m2 [facility] height 2021-01-20 11:00:00 60.75 [in_i] Common [facility] weight 2021-01-20 11:00:00 255 [lb_av] Common [facility] temperature 2021-01-20 11:00:00 97.3 [degF] Common [facility] bmi 2021-01-20 11:00:00 48.57 kg/m2 [facility] oximetry 2021-01-20 11:00:00 98 % [facility] respiratory rate 2021-01-20 11:00:00 18 /min Comm on [facility] blood pressure 2021-01-20 11:00:00 122 mm[Hg] Common [facility] systolic [facility] blood pressure 2021-01-20 11:00:00 68 mm[Hg] Common [facility] - diastolic [facility] height 2020-12-15 14:00:00 60.75 [in_i] [facility] weight 2020-12-15 14:00:00 258 [lb_av] Common [facility] temperature 2020-12-15 14:00:00 97.9 [degF] Common [facility] bmi 2020-12-15 14:00:00 49.15 kg/m2 [facility] oximetry 2020-12-15 14:00:00 98 % Common [facility] respiratory rate 2020-12-15 14:00:00 20 /min Comm on [facility] blood pressure 2020-12-15 14:00:00 118 mm[Hg] Common [facility] - systolic [facility] blood pressure 2020-12-15 14:00:00 67 mm[Hg] [facility] Systolic (mm Hg) 2021-03-16 13:19:00 Lev rial [place] Diastolic (mm Hg) 2021-03-16 13:19:00 Mem orial [place] Heart Rate 2021-03-16 13:19:00 [facility] [place] Respitory Rate 2021-03-16 13:19:00 Memori al [place] Height 2021-03-16 13:19:00 152.4 cm [facility] [place] Weight 2021-03-16 13:19:00 [facility] [place] BMI Calculated 2021-03-16 13:19:00 Memori al [place] Systolic (mm Hg) 2021-02-01 18:35:00 Lev rial [place] Diastolic (mm Hg) 2021-02-01 18:35:00 Mem orial [place] Heart Rate 2021-02-01 18:35:00 [facility] [place] Respitory Rate 2021-02-01 18:35:00 Memori al [place] Height 2021-02-01 18:35:00 152.4 cm [facility] [place] Weight 2021-02-01 18:35:00 [facility] BMI Calculated 2021-02-01 18:35:00 [facility] Systolic (mm Hg) 2020-09-24 19:34:00 [facility] Diastolic (mm Hg) 2020-09-24 19:34:00 [facility] Heart Rate 2020-09-24 19:34:00 [facility] Respitory Rate 2020-09-24 19:34:00 [facility] Height 2020-09-24 19:34:00 160.02 cm [facility] Weight 2020-09-24 19:34:00 [facility] BMI Calculated 2020-09-24 19:34:00 [facility] Respitory Rate 2020-02-26 16:32:00 [facility] Systolic (mm Hg) 2020-02-26 16:32:00 [facility] Diastolic (mm Hg) 2020-02-26 16:32:00 [facility] Heart Rate 2020-02-26 16:00:00 [facility] Respitory Rate 2020-02-26 16:00:00 [facility] Systolic (mm Hg) 2020-02-26 16:00:00 [facility] Diastolic (mm Hg) 2020-02-26 16:00:00 [facility] Heart Rate 2020-02-26 15:50:00 [facility] Respitory Rate 2020-02-26 15:50:00 [facility] Systolic (mm Hg) 2020-02-26 15:50:00 [facility] Diastolic (mm Hg) 2020-02-26 15:50:00 [facility] Heart Rate 2020-02-26 15:40:00 [facility] Temperature Oral (F) 2020-02-26 15:20:00 37.0 Sole [facility] Temperature Oral (F) 2020-02-26 11:25:00 37.2 Sole [facility] Height 2020-02-26 11:25:00 158 cm [facility] Height 2020-02-18 16:59:00 158 cm [facility] Systolic blood 2020-02-02 14:39:00 134 mm[Hg] [facility] [...] Systolic (mm Hg) 2020-01-15 20:04:00 [facility] Diastolic (mm Hg) 2020-01-15 20:04:00 [facility] Heart Rate 2020-01-15 20:04:00 [facility] Respitory Rate 2020-01-15 20:04:00 [facility] Height 2020-01-15 20:04:00 152.4 cm [facility] Weight 2020-01-15 20:04:00 [facility] BMI Calculated 2020-01-15 20:04:00 [facility] Systolic (mm Hg) 2019-12-02 20:40:00 [facility] Diastolic (mm Hg) 2019-12-02 20:40:00 [facility] Heart Rate 2019-12-02 20:40:00 [facility] Respitory Rate 2019-12-02 20:40:00 [facility] Height 2019-12-02 20:40:00 152.4 cm [facility] Weight 2019-12-02 20:40:00 [facility] BMI Calculated 2019-12-02 20:40:00 [facility] Weight 2019-02-14 19:40:00 [facility] BMI Calculated 2019-02-14 19:40:00 [facility] Height 2019-02-14 19:40:00 160.02 cm [facility] Respitory Rate 2019-02-14 19:40:00 [facility] Heart Rate 2019-02-14 19:40:00 [facility] Systolic (mm Hg) 2019-02-14 19:40:00 [facility] Diastolic (mm Hg) 2019-02-14 19:40:00 [facility] BMI Calculated 2018-12-24 20:38:00 [facility] Weight 2018-12-24 20:38:00 [facility] Height 2018-12-24 20:38:00 157.48 cm [facility] Systolic (mm Hg) 2018-12-24 20:38:00 [facility] Diastolic (mm Hg) 2018-12-24 20:38:00 [facility] Respitory Rate 2018-12-24 20:38:00 [facility] Heart Rate 2018-12-24 20:38:00 [facility] Height 2018-12-20 19:20:00 152.4 cm [facility] BMI Calculated 2018-12-20 19:20:00 [facility] Weight 2018-12-20 19:20:00 [facility] Systolic (mm Hg) 2018-12-20 19:20:00 [facility] Diastolic (mm Hg) 2018-12-20 19:20:00 [facility] Heart Rate 2018-12-20 19:20:00 [facility] Respitory Rate 2018-12-20 19:20:00 [facility] Systolic (mm Hg) 2018-11-22 19:23:00 [facility] Diastolic (mm Hg) 2018-11-22 19:23:00 [facility] Respitory Rate 2018-11-22 19:23:00 Carissa Redman Height 2018-11-22 19:23:00 157.48 cm Naresh Segovia Weight 2018-11-22 19:23:00 Naresh Segovia BMI Calculated 2018-11-22 19:23:00 Carissa Redman Heart Rate 2018-11-22 19:23:00 Naresh Segovia Procedures Procedure Date / Time Performing Clinician Source Performed AUTHORIZATION FOR RELEASE 2022-05-02 05:01:00 Doctor Unassigned, [facility] CONSENT/REFUSAL FOR 2021-10-10 20:09:22 Doctor Unassigned, [facility] DIAGNOSIS AND TREATMENT [facility] MRI SPINE EXTERNAL STUDY 2021-04-29 16:16:04 Tony Gray [facility] MR Ankle wo contrast [id number] 2020-07-02 00:00:00 [facility] [[facility]MD] US Lower Extremity 2020-05-31 00:00:00 [facility] Venous Doppler Bilateral Post Op Promis 29 Survey 2020-03-12 00:00:00 [facility] APPLICATION SHORT LEG 2020-02-26 13:13:00 Carissa Monteiroann SPLINT-CALF TO FOOT [id number] (Left)<sup>1</sup> ARTHROSCOPY ANKLE 2020-02-26 13:13:00 [facility] Luis jose 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 73454 (Left)<sup>2</sup> OPEN REDUCTION INTERNAL 2020-02-26 13:13:00 Lev [facility] FIXATION TALUS FRACTURE 12348 (Left)<sup>3</sup> [L] 2019 Novel Coronavirus 2020-02-05 00:00:00 [facility] (COVID-19), MARK [UTP] Ortho - Surgery 2020-02-02 00:00:00 [facility], [facility] bilateral [facility] Carpal tunnel syndrome of Carissa Monteiroann right wrist Plantar fasciitis of left Carissa Monteiroann foot History of Breast [facility] reduction History of Carpal tunnel [facility] surgery Plan of Care Planned Activity Planned Date Details Comments Source Future Scheduled 2022-10-27 [facility] Test 09:26:37 screening (procedure) [code = 446679340] Future Scheduled 2022-10-27 Screening for [facility] Test 09:26:37 malignant neoplasm of cervix (procedure) [code = 145479698] Future Scheduled 2022-10-27 BREAST CANCER [facility] Test 09:26:37 SCREENING [code = BREAST CANCER SCREENING] Future Scheduled 2022-10-27 [facility] Test 09:26:37 SCREENING [code = COLONOSCOPY SCREENING] Future Scheduled 2022-10-27 COVID-19 VACCINE (3 [facility] 09:26:37 - Booster for Moderna series) [code = COVID-19 VACCINE (3 - Booster for Moderna series)] Future Scheduled 2022-10-27 [facility] 09:26:37 [code = INFLUENZA VACCINE] Future Scheduled 2022-10-27 [facility] Test 09:26:37 screening (procedure) [code = 718594559] Future Scheduled 2022-10-27 Screening for [facility] Test 09:26:37 malignant neoplasm of cervix (procedure) [code = 168273900] Future Scheduled 2022-10-27 BREAST CANCER [facility] Test 09:26:37 SCREENING [code = BREAST CANCER SCREENING] Future Scheduled 2022-10-27 [facility] 09:26:37 SCREENING [code = COLONOSCOPY SCREENING] Future Scheduled 2022-10-27 COVID-19 VACCINE (3 [facility] Test 09:26:37 - Booster for Moderna series) [code = COVID-19 VACCINE (3 - Booster for Moderna series)] Future Scheduled 2022-10-27 [facility] 09:26:37 [code = INFLUENZA VACCINE] Future Scheduled 2022-10-27 [facility] Test 09:26:37 screening (procedure) [code = 654950888] Future Scheduled 2022-10-27 Screening for [facility] Test 09:26:37 malignant neoplasm of cervix (procedure) [code = 863095057] Future Scheduled 2022-10-27 BREAST CANCER [facility] Test 09:26:37 SCREENING [code = BREAST CANCER SCREENING] Future Scheduled 2022-10-27 [facility] 09:26:37 SCREENING [code = COLONOSCOPY SCREENING] Future Scheduled 2022-10-27 COVID-19 VACCINE (3 [facility] Test 09:26:37 - Booster for Moderna series) [code = COVID-19 VACCINE (3 - Booster for Moderna series)] Future Scheduled 2022-10-27 [facility] 09:26:37 [code = INFLUENZA VACCINE] Future Scheduled 2022-07-06 [facility] Test 08:29:48 screening (procedure) [code = 262923414] Future Scheduled 2022-07-06 Screening for [facility] Test 08:29:48 malignant neoplasm of cervix (procedure) [code = 060874141] Future Scheduled 2022-07-06 BREAST CANCER [facility] Test 08:29:48 SCREENING [code = BREAST CANCER SCREENING] Future Scheduled 2022-07-06 [facility] 08:29:48 SCREENING [code = COLONOSCOPY SCREENING] Future Scheduled 2022-07-06 [facility] 08:29:48 - Booster for Moderna series) [code = COVID-19 VACCINE (3 - Booster for Moderna series)] Future Scheduled 2022-07-06 [facility]INE [facility] 08:29:48 [code = INFLUENZA VACCINE] Future Scheduled 2022-04-27 HEPATITIS B VACCINES [facility] Test 09:25:03 (1 of 3 - 3-dose series) [code = HEPATITIS B VACCINES (1 of 3 - 3-dose series)] Future Scheduled 2022-04-27 [facility] 09:25:03 screening (procedure) [code = 693441392] Future Scheduled 2022-04-27 [facility] for [facility] Test 09:25:03 malignant neoplasm of cervix (procedure) [code = 494737791] Future Scheduled 2022-04-27 BREAST CANCER [facility] Test 09:25:03 SCREENING [code = BREAST CANCER SCREENING] Future Scheduled 2022-04-27 [facility] 09:25:03 SCREENING [code = COLONOSCOPY SCREENING] Future Scheduled 2022-04-27 [facility]19 [facility] 09:25:03 - Booster for Moderna series) [code = COVID-19 VACCINE (3 - Booster for Moderna series)] Future Scheduled 2022-04-27 [facility]INE [facility] 09:25:03 [code = INFLUENZA VACCINE] Future Scheduled 2022-03-30 HEPATITIS B VACCINES [facility] Test 16:54:14 (1 of 3 - 3-dose series) [code = HEPATITIS B VACCINES (1 of 3 - 3-dose series)] Future Scheduled 2022-03-30 [facility] 16:54:14 screening (procedure) [code = 007278536] Future Scheduled 2022-03-30 [facility] Test 16:54:14 malignant neoplasm of cervix (procedure) [code = 722778377] Future Scheduled 2022-03-30 BREAST CANCER [facility] Test 16:54:14 SCREENING [code = BREAST CANCER SCREENING] Future Scheduled 2022-03-30 [facility] 16:54:14 SCREENING [code = COLONOSCOPY SCREENING] Future Scheduled 2022-03-30 COVID-19 [facility]ACCINE [facility] 16:54:14 - Booster for Moderna series) [code = COVID-19 VACCINE (3 - Booster for Moderna series)] Future Scheduled 2022-03-30 INFLUENZA VACCINE [facility] Test 16:54:14 [code = INFLUENZA VACCINE] Future Scheduled 2022-03-30 HEPATITIS B VACCINES [facility] Test 16:54:14 (1 of 3 - 3-dose series) [code = HEPATITIS B VACCINES (1 of 3 - 3-dose series)] Future Scheduled 2022-03-30 [facility] 16:54:14 screening (procedure) [code = 275994949] Future Scheduled 2022-03-30 [facility] Test 16:54:14 malignant neoplasm of cervix (procedure) [code = 646786000] Future Scheduled 2022-03-30 BREAST CANCER [facility] Test 16:54:14 SCREENING [code = BREAST CANCER SCREENING] Future Scheduled 2022-03-30 [facility] 16:54:14 SCREENING [code = COLONOSCOPY SCREENING] Future Scheduled 2022-03-30 COVID-19 VACCINE (3 [facility] Test 16:54:14 - Booster for Moderna series) [code = COVID-19 VACCINE (3 - Booster for Moderna series)] Future Scheduled 2022-03-30 [facility]ACCINE [facility] 16:54:14 [code = INFLUENZA VACCINE] Future Scheduled 2022-03-09 HEPATITIS B VACCINES [facility] Test 10:28:27 (1 of 3 - 3-dose series) [code = HEPATITIS B VACCINES (1 of 3 - 3-dose series)] Future Scheduled 2022-03-09 [facility] 10:28:27 screening (procedure) [code = 727990161] Future Scheduled 2022-03-09 [facility] Test 10:28:27 malignant neoplasm of cervix (procedure) [code = 485088588] Future Scheduled 2022-03-09 BREAST CANCER [facility] Test 10:28:27 SCREENING [code = BREAST CANCER SCREENING] Future Scheduled 2022-03-09 [facility] 10:28:27 SCREENING [code = COLONOSCOPY SCREENING] Future Scheduled 2022-03-09 COVID[facility]19 [facility]ACCINE [facility] 10:28:27 - Booster for Moderna series) [code = COVID-19 VACCINE (3 - Booster for Moderna series)] Future Scheduled 2022-03-09 [facility] 10:28:27 [code = INFLUENZA VACCINE] Future Scheduled 2021-08-16 [facility] Test 19:56:30 screening (procedure) [code = 209009776] Future Scheduled 2021-08-16 [facility] Test 19:56:30 malignant neoplasm of cervix (procedure) [code = 168801839] Future Scheduled 2021-08-16 INFLUENZA VACCINE [facility] Test 19:56:30 [code = INFLUENZA VACCINE] Future Scheduled 2021-08-16 COVID-19 VACCINE (3 Meth [facility] Test 19:56:30 - Booster for Moderna series) [code = COVID-19 VACCINE (3 - Booster for Moderna series)] Diagnostic Test 2020-02-02 [UT[facility]] [facility]o - [facility] Pending 00:00:00 Surgery Scheduling [code = [UTP] Ortho - Surgery Scheduling] Encounters Start End Encounter Admission Attending Care Care Encounter Source Date/Time Date/Time Type Type Clinicians Facility Department ID 2022-02-21 Outpatient Jose [facility] [id number] Common 13:42:03 Danie 64526 [facility] 2021-08-10 Outpatient Jose [facility] [id number] Common 13:49:13 Avnee [id number] [facility] 2021-08-10 Outpatient Garcia, STLMLC STLC [id number] Common 13:47:59 Avnee [id number] [facility] 2021-08-10 Outpatient Garcia, STLMLC STLC [id number] Common 13:43:00 Avnee [id number] [facility] 2021-08-10 Outpatient Garcia, STLMLC [facility] [id number] Common 13:37:06 Avnee [id number] [facility] 2021-08-10 Outpatient Garcia, STLC [facility] [id number] Common 13:23:50 Avnee [id number] [facility] 2021-08-10 Outpatient Garcia, STLC [facility] [id number] Common 13:22:32 Avnee [id number] [facility] 2021-08-10 Outpatient Garcia, STLC [facility] [id number] Common 13:09:55 Avnee 66531 [facility] 2021-05-15 [facility] [id number] Univers 06:58:12 ESTER rm [facility] 2022-10-17 2022-10-17 Travel 1.2.840.1 [id number] [id number] Methodi 00:00:00 00:00:[address] 3.430.2.7 0.2.7.3.698 Ho spita .3.979245 084.8 l .8 2022-10-17 2022-10-17 Travel 1.2.840.1 1.2.550.878 [id number] Methodi 00:00:00 00:00:[address] 3.430.2.7 0.2.7.3.698 Ho spita .3.836611 084.8 l .8 2022-09-07 2022-09-07 Outpatient ROSI ALARCON [id number] Rosi 00:00:00 00:00:00 ALFONZO armendariz 2022-07-20 2022-07-22 Outside [facility] MNA [id number] Memoria 14:48:41 05:59:59 Medical Neurology 01 l Records Nik Segovia 2022-07-20 2022-07-22 Outside [facility] MNA [id number] Memoria 14:48:41 05:59:59 Medical Neurology 01 l Records Nik Segovia 2022-07-20 2022-07-21 Outpatient MHMISCHER MHMISCHER [id number] 08:48:41 23:59:59 2022-05-02 2022-05-02 (TEL) STLMLC [facility] [id number] Co mmon 00:00:00 00:00:00 [facility] 2022-05-02 2022-05-02 Orders Doctor SPENSER 1.2.840.114 [id number] Univers 00:00:00 00:00:00 Only Unassigned, MARIA ELENA 350.1.13.[address] [facility] 4.2.7.2.686 [place] [phone] [facility] 009 Branch 2022-02-21 2022-02-21 Outpatient ROSI CAMPBELL [id number] Rosi 00:00:00 00:00:00 HAMZAH armendariz 2021-10-10 2021-10-10 Emergency [facility] [id number] Univers 15:21:00 15:42:00 CAT ity [facility] 2021-10-10 2021-10-10 Emergency [facility] 1.2.840.114 [id number] Univers 15:21:00 15:42:00 Cat DUMONT 350.1.13.10 ity [facility] 4.2.7.2.686 [facility] [id number] [facility] 084 Branch 2021-10-10 2021-10-10 Outpatient ROSI ALARCON [id number] Rosi 00:00:00 00:00:00 ALFONZO armendariz 2021-09-09 2021-09-11 Outside nullFlavo MNA [id number] Memoria 15:41:21 05:59:59 Medical r Neurology 00 l Records Nik Segovia 2021-09-09 2021-09-11 Outside nullFlavo MNA [id number] Memoria 15:41:21 05:59:59 Medical r Neurology 00 l Records Nik Segovia 2021-09-09 2021-09-[address] [facility] [id number] 09:41:21 23:59:59 00 2021-09-09 2021-09-09 Outpatient ROSI ALARCON [id number] Rosi 00:00:00 00:00:00 ALFONZO Seybol d 2021-08-26 2021-08-26 Outpatient ROSI ALARCON [id number] Rosi 00:00:00 00:00:00 ALFONZO Seybol d 2021-07-05 2021-07-05 Outpatient ROSI ALARCON [id number] Rosi 00:00:00 00:00:00 ALFONZO Seybol d 2021-07-05 2021-07-05 Outpatient ROSI ALARCON [id number] Rosi 00:00:00 00:00:00 ALFONZO Seybol d 2021-06-02 2021-06-02 Outpatient ROSI ALARCON [id number] Rosi 00:00:00 00:00:00 ALFONZO Seybol d 2021-05-23 2021-05-23 Documentat Marina, 1.2.840.1 [id number] Methodi 00:00:00 00:00:00 ion Tony Hdz 47360.1.[address] 3.430.2.7 Hospit a .3.580435 l .8 2021-05-18 2021-05-18 [facility] 1.2.840.1 [id number] Methodi 12:57:38 23:59:[address] 3.430.2.7 Hospit a .3.504490 l .8 2021-05-18 2021-05-18 Office Marina, 1.2.840.1 [id number] Methodi 13:15:00 15:18:57 Visit Tony Hdz 96835.1.[address] 3.430.2.7 Hospit a .3.285487 l .8 2021-05-18 2021-05-18 Outpatient [facility] [id number] [place] 00:00:00 00:00:[address] 2021-05-18 2021-05-18 Orders Marina 1.2.840.1 [id number] Methodi 00:00:00 00:00:00 Only Tony Hdz 82625.1.[address] 3.430.2.7 Hospit a .3.697330 l .8 2021-05-16 2021-05-16 Outpatient ROSI ALARCON [id number] Rosi 00:00:00 00:00:00 ALFONZO armendariz 2021-05-11 2021-05-11 Outpatient ROSI ALARCON [id number] Rosi 00:00:00 00:00:00 ALFONZO armendariz 2021-05-11 2021-05-11 Outpatient ROSI ALARCON [id number] Rosi 00:00:00 00:00:00 ALFONZO armendariz 2021-04-28 2021-04-28 Office Jered Alarcon 1.2.840.114 [id number] Rosi 09:39:43 10:09:43 Visit Alfonzo Montenegro 350.1.13.13 Se russ Orantes 1.2.7.2.686 [id number] 2021-04-27 2021-04-27 Ambulatory nullFlavo MNA [id number] Memoria 15:15:00 15:15:00 Pre-Reg r Neurology 13 l Vance Luca 2021-04-27 2021-04-27 Ambulatory nullFlavo MNA [id number] Memoria 15:15:00 15:15:00 Pre-Reg r Neurology 13 l Vance Luca 2021-04-27 2021-04-27 Outpatient TYRA MARY [id number] Memoria 10:15:00 10:15:00 13 l Luca 2021-04-27 2021-04-27 [facility] [id number] 10:15:00 10:15:00 Malcom Graham 2021-04-21 2021-04-21 (TEL) STLMLC STLMLC [id number] Co mmon 00:00:00 00:00:00 [facility] 2021-04-12 2021-04-12 (TEL) STLMLC STLMLC [id number] Co mmon 00:00:00 00:00:00 [facility] 2021-04-06 2021-04-06 (TEL) STLMLC STLMLC [id number] Co mmon 00:00:00 00:00:00 [facility] 2021-03-31 2021-03-31 (TEL) STLMLC STLMLC [id number] Co mmon 00:00:00 00:00:00 [facility] 2021-03-30 2021-03-30 OFFICE STLMLC STLMLC [id number] Co mmon 00:00:00 00:00:00 VISIT EST Spir it PT LEVEL 3 [facility] 2021-03-30 2021-03-30 (TEL) STLMLC STLMLC [id number] Co mmon 00:00:00 00:00:00 [facility] 2021-03-28 2021-03-28 Outpatient ROYCE DELEON [facility] [id number] Univers 10:30:00 10:30:00 ity [facility] 2021-03-23 2021-03-23 [facility] 1.2.840.114 [id number] Univers 00:00:00 00:00:00 [facility] 350.1.13.10 it y of [place] 4.2.7.2.686 [place] as Sam?Blea [id number] Ms nigel[address] [facility] 2021-03-16 2021-03-17 Outpatient nullFlavo MNA [id number] Memoria 13:15:00 04:59:59 r Neurology 12 l Vance Luca 2021-03-16 2021-03-17 Outpatient nullFlavo MNA [id number] Memoria 13:15:00 04:59:59 r Neurology 12 l Nik Segovia 2021-03-17 2021-03-17 (TEL) STLMLC STLMLC [id number] Co mmon 00:00:00 00:00:00 [facility] 2021-03-16 2021-03-16 Outpatient DIMA EspinalMISCHER VIPULSCHER [id number] 08:15:00 23:59:59 Malcom 12 Santos 2021-03-16 2021-03-16 Outpatient MHIE MHIE [id number] Memoria 08:15:00 08:15:00 12 l Luca 2021-02-23 2021-02-23 OFFICE STLMLC STLMLC [id number] Co mmon 00:00:00 00:00:00 VISIT EST Spir it PT LEVEL 3 [facility] 2021-02-21 2021-02-21 (TEL) STLMLC STLMLC [id number] Co mmon 00:00:00 00:00:00 [facility] 2021-02-16 2021-02-16 (TEL) STLMLC STLMLC [id number] Co mmon 00:00:00 00:00:00 [facility] 2021-02-15 2021-02-15 OFFICE STLMLC STLMLC [id number] Co mmon 00:00:00 00:00:00 VISIT EST Spir it PT LEVEL 3 [facility] 2021-02-11 2021-02-11 Outpatient Scott PERES [facility] [id number] Univers 08:15:00 08:56:02 ESTER rm [facility] 2021-02-11 2021-02-11 Office Ja [facility] 1.2.920.780 [id number] Univers 08:13:08 08:56:02 Visit Ester Lazo [facility] 350.1.13.10 it y of SURGICAL 4.2.7.2.686 [place] as SPECIALTI [id number] Ms dical [address] [place] 2021-02-10 2021-02-10 Outpatient Scott WOOD [facility] [id number] Univers 13:00:00 13:00:00 MG rm [facility] 2021-02-03 2021-02-03 Outpatient Scott WOOD [facility] [id number] Univers 10:30:00 10:30:00 MG crow [facility] 2021-02-01 2021-02-02 Outpatient nullFlavo MNA [id number] Memoria 18:30:00 04:59:59 r Neurology 11 l Nik Segovia 2021-02-01 2021-02-02 Outpatient nullFlavo MNA [id number] Memoria 18:30:00 04:59:59 r Neurology 11 l Nik Segovia 2021-02-01 2021-02-01 Outpatient Kylie[id number] 13:30:00 23:59:59 Malcom Ashlee Graham 2021-02-01 2021-02-01 Outpatient [facility] [id number] 13:30:00 13:30:00 11 violet Luca 2021-01-20 2021-01-20 OFFICE STLMLC STLMLC [id number] Co mmon 00:00:00 00:00:00 VISIT EST Spir it PT LEVEL 3 [facility] 2021-01-14 2021-01-14 (TEL) STLMLC STLMLC [id number] Co mmon 00:00:00 00:00:00 [facility] 2020-12-23 2020-12-23 Outpatient Scott JAFFE [facility] [id number] Univers 10:00:00 10:00:00 DEMETRIA rm [facility] 2020-12-23 2020-12-23 Outpatient Scott OLSON [facility] [id number] Univers 09:00:00 09:00:00 WONDIFUL ity o f [facility] 2020-12-16 2020-12-16 Outpatient Scott WOOD [facility] [id number] Univers 10:30:00 10:30:00 MG [facility] 2020-12-15 2020-12-15 (TEL) STLMLC STLMLC [id number] Co mmon 00:00:00 00:00:00 [facility] 2020-12-15 2020-12-15 OFFICE STLMLC STLMLC [id number] Co mmon 00:00:00 00:00:00 VISIT NEW Spir it PT LEVEL 4 - [facility] 2020-12-06 2020-12-06 Outpatient Scott WOOD [facility] [id number] Univers 15:52:18 23:59:00 [facility] 2020-11-25 2020-11-25 Outpatient R SEBLE ROYCE [facility] [id number] Univers 09:00:00 09:00:00 [facility] 2020-11-11 2020-11-11 Outpatient Scott SEBLE ROYCE [facility] [id number] Univers 15:30:00 15:30:00 [facility] 2020-11-04 2020-11-04 Outpatient R JACQUELINE [facility] [id number] Univers 10:00:00 10:00:00 [facility] 2020-10-28 [id number] Univers 10:45:00 10:45:00 [facility] 2020-10-25 2020-10-25 [facility] [id number] Univers 14:45:00 14:45:00 [facility] 2020-10-15 2020-10-15 [facility] [id number] Univers 10:00:00 10:00:00 [facility] 2020-10-08 2020-10-08 Outpatient R JA [facility] [id number] Univers 09:30:00 09:30:00 ESTER [facility] 2020-10-08 2020-10-08 Outpatient R BRITTNEY, [facility] [id number] Univers 09:15:00 09:15:00 OSCAR [facility] 2020-09-24 2020-09-25 Outpatient nullFlavo MNA [id number] Memoria 19:00:00 05:59:59 r Neurology 10 l Vancerefugio Segovia 2020-09-24 2020-09-25 Outpatient nullFlavo MNA [id number] Memoria 19:00:00 05:59:59 r Neurology 10 l Nik Segovia 2020-09-24 2020-09-24 Outpatient VIPUL EspinalSCHER MHMISCHER [id number] 13:00:00 23:59:59 Malcom Ada Graham 2020-09-24 2020-09-24 Outpatient Scott WOOD [facility] [id number] Univers 11:58:20 23:59:00 [facility] 2020-09-24 2020-09-24 Outpatient MHIE MHIE [id number] Memoria 13:00:00 13:00:00 10 l Luca 2020-09-21 2020-09-21 Outpatient R JA, [facility] [id number] Univers 00:00:00 00:00:00 [facility] 2020-09-09 2020-09-09 Outpatient R JA [facility] [id number] Univers 09:15:00 09:15:00 [facility] 2020-09-06 2020-09-06 Ambulatory nullFlavo MNA [id number] Memoria 16:30:00 16:30:00 Pre-Reg r Neurology 09 l Nik Segovia 2020-09-06 2020-09-06 Ambulatory nullFlavo MNA [id number] Memoria 16:30:00 16:30:00 Pre-Reg r Neurology 09 l Nik Segovia 2020-09-06 2020-09-06 Outpatient MHIE MHIE [id number] Memoria 10:30:00 10:30:00 09 violet Segovia 2020-09-06 2020-09-06 Outpatient VIPUL EspinalSCHER MHMISCHER [id number] 10:30:00 10:30:00 Malcom 09 Santos 2020-07-14 2020-07-14 Outpatient R CHRISTIANNE [facility] [id number] Univers 19:00:00 19:00:00 BROOKE serrano [facility] 2020-07-02 2020-07-02 AppointNEAL [facility] [id number] [place] 14:30:00 14:30:00 t; RAJI JEAN BAPTISTE, - Sugar Phys ici LARA ALEGRIA Land 2 ans DPRaeann 2020-06-01 2020-06-01 Ambulatory nullFlavo MNA [id number] Memoria 20:00:00 20:00:00 Pre-Reg r Neurology 08 l [facility] 2020-06-01 2020-06-01 Ambulatory nullFlavo MNA [id number] Memoria 20:00:00 20:00:00 Pre-Reg r Neurology 08 l [facility] 2020-06-01 2020-06-01 Outpatient MHIE [facility] [id number] Memoria 14:00:00 14:00:00 08 [facility] 2020-06-01 2020-06-01 [facility] [id number] 14:00:00 14:00:00 Malcom Naomy Santos 2020-05-31 2020-05-31 [facility] [id number] [place] 10:00:00 10:00:00 t; RAJI JEAN BAPTISTE, - Sugar Phys ici RAJI, DPM Land 2 ans DPM 2020-05-10 2020-05-10 [facility] Orthoped[facility] [id number] [place] 09:00:00 09:00:00 t; RAJI JEAN BAPTISTE, - Sugar Phys ici RAJI, DPM [place] 2 ans DPM 2020-04-27 2020-04-27 [facility] Orthopedics [id number] [place] 14:45:00 14:45:00 t; RAJI JEAN BAPTISTE, - Sugar Phys ici RAJI, DPM [place] 2 ans DPM 2020-03-29 2020-03-29 [facility] Orthopedics [id number] [place] 13:00:00 13:00:00 t; RAJI JEAN BAPTISTE, - Sugar Phys ici RAJI, DPM [place] 2 ans DPM 2020-03-08 2020-03-08 [facility] Orthopedics [id number] [place] 11:15:00 11:15:00 t; RAJI JEAN BAPTISTE, - Sugar Phys ici RAJI, DPM [place] 2 ans DPM 2020-02-26 2020-02-26 Outpatient nullFlavo [facility] [id number] Memoria 10:46:09 16:30:00 [facility] 2020-02-26 2020-02-26 Outpatient [facility]Flavo [facility] [id number] Memoria 10:46:09 16:30:00 r Luca lazo [facility] 2020-02-26 2020-02-26 Outpatient nullFlavo [facility] [id number] Memoria 05:46:09 11:30:00 r l Luca 2020-02-26 2020-02-26 Outpatient [place] [id number] 05:46:09 11:30:00 Raji 8 2020-02-26 2020-02-26 Appointmen [facility] Orthopedics [id number] [place] 10:30:00 10:30:00 t; RAJI JEAN BAPTISTE, - Sugar Phys ici RAJI, DPM [place] 2 ans DPM 2020-02-02 2020-02-02 Appointmen [facility] Orthopedics [id number] [place] 10:45:00 10:45:00 t; RAJI JEAN BAPTISTE, - Sugar Phys ici RAJI, DPM [place] 2 ans DPM 2020-01-15 2020-01-16 Outpatient nullFlavo MNA [id number] Memoria 20:00:00 04:59:59 r Neurology 07 l Nik Segovia 2020-01-15 2020-01-16 Outpatient nullFlavo MNA [id number] Memoria 20:00:00 04:59:59 r Neurology 07 l Nik Segovia 2020-01-15 2020-01-15 Outpatient VIRGILIO Espinal MHMISCHER [id number] 15:00:00 23:59:59 Malcom 07 Santos 2020-01-15 2020-01-15 Ambulatory nullFlavo MNA [id number] Memoria 20:00:00 20:00:00 Pre-Reg r Neurology 06 l Nik Segovia 2020-01-15 2020-01-15 Ambulatory nullFlavo MNA [id number] Memoria 20:00:00 20:00:00 Pre-Reg r Neurology 06 l Nik Segovia 2020-01-15 2020-01-15 Outpatient MHIE MHIE [id number] Memoria 15:00:00 15:00:00 07 l Luca 2020-01-15 2020-01-15 Outpatient MHIE MHIE [id number] Memoria 15:00:00 15:00:00 06 violet Segovia 2020-01-15 2020-01-15 Outpatient VIRGILIO Espinal MHMISCHER [id number] 15:00:00 15:00:00 Malcom 06 Santos 2019-12-02 2019-12-03 Outpatient nullFlavo MNA [id number] Memoria 20:30:00 04:59:59 r Neurology 05 violet Segovia 2019-12-02 2019-12-03 Outpatient nullFlavo MNA [id number] Memoria 20:30:00 04:59:59 r Neurology 05 violet Segovia 2019-12-02 2019-12-02 Outpatient [facility] [id number] 15:30:00 23:59:59 Malcom Rere Graham 2019-12-02 2019-12-02 Outpatient MHIE MHIE [id number] Memoria 15:30:00 15:30:00 Rere Segovia 2019-05-23 2019-05-23 Ambulatory nullFlavo MNA [id number] Memoria 19:15:00 19:15:00 Pre-Reg r Neurology 04 l Nik Luca 2019-05-23 2019-05-23 Ambulatory nullFlavo MNA [id number] Memoria 19:15:00 19:15:00 Pre-Reg r Neurology 04 violet Zaragoza Luca 2019-05-23 2019-05-23 Outpatient MHIE MHIE [id number] Memoria 13:15:00 13:15:00 Connor Segovia 2019-05-23 2019-05-23 Outpatient [facility] [id number] 13:15:00 13:15:00 Malcom 04 Santos 2019-03-23 2019-03-23 Emergency [facility] [id number] 12:37:57 13:11:00 Palomo Dumont [id number] [place] [id number] [place] [id number] 2019-03-23 2019-03-23 Orders Doctor DUEÑAS [id number] 00:00:00 00:00:00 Only Unassigned, MARIA ELENA [id number] [place] [facility] [id number] 2019-02-14 2019-02-15 Outpatient nullFlavo MNA [id number] Memoria 20:00:00 04:59:59 r Neurology 02 l iNk [place] 2019-02-14 2019-02-15 Outpatient nullFlavo MNA [id number] Memoria 20:00:00 04:59:59 r Neurology 02 violet Zaragoza [place] 2019-02-14 2019-02-14 [facility] [id number] 15:00:00 23:59:59 Malcom 02 Santos 2019-02-14 2019-02-14 Outpatient MHIE MHIE [id number] Memoria 15:00:00 15:00:00 02 violet [place] 2018-12-24 2018-12-25 Outpatient nullFlavo MNA [id number] Memoria 20:15:00 04:59:59 r Neurology 03 violet Zaragoza [place] 2018-12-24 2018-12-25 Outpatient nullFlavo MNA [id number] Memoria 20:15:00 04:59:59 r Neurology 03 Vance [place] 2018-12-24 2018-12-24 [facility] [id number] 15:15:00 23:59:59 Malcom Santos 2018-12-24 2018-12-24 Outpatient MHIE MHIE [id number] Memoria 15:15:00 15:15:00 03 violet [place] 2018-12-20 2018-12-21 Outpatient nullFlavo MNA [id number] Memoria 18:45:00 04:59:59 r Neurology 01 Nik [place] 2018-12-20 2018-12-21 Outpatient nullFlavo MNA [id number] Memoria 18:45:00 04:59:59 r Neurology 01 Nik [place] 2018-12-20 2018-12-20 Outpatient [facility] [id number] 13:45:00 23:59:59 Malcom Santos 2018-12-20 2018-12-20 Outpatient MHIE MHIE [id number] Memoria 13:45:00 13:45:00 01 violet Luc[place] 2018-11-22 2018-11-23 Outpatient nullFlavo MNA [id number] Memoria 19:45:00 04:59:59 r Neurology 00 Vance [place] 2018-11-22 2018-11-23 Outpatient nullFlavo MNA [id number] Memoria 19:45:00 04:59:59 r Neurology 00 l Vance [place] 2018-11-22 2018-11-22 Outpatient VIRGILIO Espinal [id number] 14:45:00 23:59:59 Malcom 00 Santos 2018-11-22 2018-11-22 Outpatient TYRA PUNEET [id number] Memoria 14:45:00 14:45:00 00 l [place] Results Test Description Test Time Test Comments Results Result Comments Source LABORATORY 2020-02-18 17:38:00 Test Item Value Reference Range Interpretation Comme nts Glucose Lvl (test code = Glucose Lvl) 89 70-99 [place]180-08-05 17:38:00 Test Item Value Reference Range Interpretation Comments Glucose Lvl (test code = Glucose Lvl) 89 70-99 [place]180-08-05 17:38:00 Test Item Value Reference Range Interpretation Comments BUN (test code = BUN) 12 7-22 [place] 274180-08-05 17:38:00 Test Item Value Reference Range Interpretation Comments Creatinine (test code = Creatinine) 0.79 0.50-1.40 [place] 274180-08-05 17:38:00 Test Item Value Reference Range Interpretation Comments Sodium Level (test code = Sodium Level) 141 135-145 [place] 274180-08-05 17:38:00 Test Item Value Reference Range Interpretation Comments Potassium Level (test code = Potassium 4.5 3.5-5.1 Level) [place] 274[address]-08-05 17:38:00 Test Item Value Reference Range Interpretation Comments Chloride Level (test code = Chloride 108 95-109 Level) [place] 274180-08-05 17:38:00 Test Item Value Reference Range Interpretation Comments Total Carbon Dioxide Level (test code = 24 24-32 Total Carbon Dioxide Level) [place] 274180-08-05 17:38:00 Test Item Value Reference Range Interpretation Comments AGAP (test code = AGAP) 13.5 10.0-20.0 [place] 274180-08-05 17:38:00 Test Item Value Reference Range Interpretation Comments Calcium Level (test code = Calcium 9.5 8.5-10.5 Level) [facility] HospitalOlowcakADGTLYQTWE5610-17-32 17:38:00 Test Item Value Reference Range Interpretation Comments eGFR (test code = eGFR) 92 [place] [address]-08-05 17:38:00 Test Item Value Reference Range Interpretation Comments Results (test code = Reported (02/18/20 12:38 Results) PM) [place] [address]-08-05 17:38:00 Test Item Value Reference Range Interpretation Comments White Blood Count (test code = White 6.4 3.7-10.4 Blood Count) [place] 274180-08-05 17:38:00 Test Item Value Reference Range Interpretation Comments Red Blood Cell Count (test code = Red 4.37 4.20-5.40 Blood Cell Count) [place] 274180-08-05 17:38:00 Test Item Value Reference Range Interpretation Comments Hemoglobin (test code = Hemoglobin) 12.7 12.0-16.0 [place] [address]-08-05 17:38:00 Test Item Value Reference Range Interpretation Comments Hematocrit (test code = Hematocrit) 38.3 36.0-48.0 [place] 274180-08-05 17:38:00 Test Item Value Reference Range Interpretation Comments BUN (test code = BUN) 12 7-22 [place] [address]-08-05 17:38:00 Test Item Value Reference Range Interpretation Comments MCV (test code = MCV) 87.5 80.0-98.0 [place] [address]-08-05 17:38:00 Test Item Value Reference Range Interpretation Comments MCH (test code = MCH) 29.2 pg 27.0-31.0 [place] 274180-08-05 17:38:00 Test Item Value Reference Range Interpretation Comments MCHC (test code = MCHC) 33.3 32.0-36.0 [place] 274180-08-05 17:38:00 Test Item Value Reference Range Interpretation Comments RDW (test code = RDW) 14.2 11.5-14.5 [place] 274[address]-08-05 17:38:00 Test Item Value Reference Range Interpretation Comments Platelet (test code = Platelet) 300 133-[address] [facility] HospitalGnddnnzWXLCKAIOWF6943-93-37 17:38:00 Test Item Value Reference Range Interpretation Comments MPV (test code = MPV) 8.3 7.4-10.[address] [facility] HospitalWnenpbaMGSWHMSFAK4854-15-14 17:38:00 Test Item Value Reference Range Interpretation Comments NRBCs # (test code = NRBCs #) 0.1 0.4-2.[address] [facility] [facility] HospitalBbcaufqKZYPYURWAL5722-31-75 17:38:00 Test Item Value Reference Range Interpretation Comments Results (test code = Reported (02/18/20 12:38 Results) PM) [facility] HospitalIgvtbsaKZEHVFPYSQ0748-55-18 17:38:00 Test Item Value Reference Range Interpretation Comments Neutrophil % (test code = Neutrophil %) 62.2 45.0-75.0 [place] 274180-08-05 17:38:00 Test Item Value Reference Range Interpretation Comments Monocyte % (test code = Monocyte %) 6.8 2.0-12.0 [place] 274180-08-05 17:38:00 Test Item Value Reference Range Interpretation Comments Lymphocyte % (test code = Lymphocyte %) 26.9 20.0-40.[address] [facility] [facility] HospitalZruuqtcAZBWKGGIHD8600-00-85 17:38:00 Test Item Value Reference Range Interpretation Comments Eosinophil # (test code 3.6 See_Comment [Au tomated message] The = Eosinophil #) system which generated this result tra nsmitted reference range : <=4.0. The reference r karan was not used to int erpret this result as normal/abnormal . [facility] HospitalQzxeyguWVKFLXMZOY9248-73-16 17:38:00 Test Item Value Reference Range Interpretation Comments Basophil % (test code = 0.5 See_Comment [Au tomated message] The Basophil %) system which ge nerated this result tra nsmitted reference range : <=1.0. The reference r karan was not used to int erpret this result as normal/abnormal . [facility] HospitalAvildtgJJNTXIUDXU9099-85-93 17:38:00 Test Item Value Reference Range Interpretation Comments Neutrophil # (test code = Neutrophil #) 4.0 1.5-8.[address] [facility] HospitalUeuafhdPGSIEUYWSM7747-66-50 17:38:00 Test Item Value Reference Range Interpretation Comments Lymphocyte # (test code = Lymphocyte #) 1.7 1.0-5.[address] [facility] HospitalHttaasaLCYAVAGMFE2331-84-33 17:38:00 Test Item Value Reference Range Interpretation Comments Monocyte # (test code = 0.4 See_Comment [Au tomated message] The Monocyte #) system which ge nerated this result tra nsmitted reference range : <=0.8. The reference r karan was not used to int erpret this result as normal/abnormal . [facility] HospitalMcmklcuBKMQZIDPAK5526-53-68 17:38:00 Test Item Value Reference Range Interpretation Comments Eosinophil % (test code 0.2 See_Comment [Au tomated message] The = Eosinophil %) system which generated this result tra nsmitted reference range : <=0.5. The reference r karan was not used to int erpret this result as normal/abnormal . [facility] HospitalOzxmjtmYYYFCNGYWI6569-08-66 17:38:00 Test Item Value Reference Range Interpretation Comments Results (test code = Reported (02/18/20 12:38 Results) PM) [facility] HospitalPidfwmxIIZDIIKASP0271-18-21 17:38:00 Test Item Value Reference Range Interpretation Comments Creatinine (test code = Creatinine) 0.79 0.50-1.40 [place]180-08-05 17:38:00 Test Item Value Reference Range Interpretation Comments Sodium Level (test code = Sodium Level) 141 135-[address] [facility] HospitalTarhpxcGNQXOVPMUY0725-30-94 17:38:00 Test Item Value Reference Range Interpretation Comments Potassium Level (test code = Potassium 4.5 3.5-5.1 Level) [place] [address]-08-05 17:38:00 Test Item Value Reference Range Interpretation Comments Chloride Level (test code = Chloride 108 95-109 Level) [facility] HospitalUfcvtpjHEMLKZYVFO9036-60-63 17:38:00 Test Item Value Reference Range Interpretation Comments Total Carbon Dioxide Level (test code = 24 24-32 Total Carbon Dioxide Level) [facility] HospitalOvancdtXWOWFJXHUV8275-01-56 17:38:00 Test Item Value Reference Range Interpretation Comments AGAP (test code = AGAP) 13.5 10.0-20.[address] [facility] [facility] HospitalNbgyesuVFJMYAKQOY9524-19-42 17:38:00 Test Item Value Reference Range Interpretation Comments Calcium Level (test code = Calcium 9.5 8.5-10.5 Level) [place]-08-05 17:38:00 Test Item Value Reference Range Interpretation Comments eGFR (test code = eGFR) 92 [place] [address]-08-05 17:38:00 Test Item Value Reference Range Interpretation Comments Results (test code = Reported (02/18/20 12:38 Results) PM) [address]08-05 17:38:00 Test Item Value Reference Range Interpretation Comments White Blood Count (test code = White 6.4 3.7-10.4 Blood Count) [place] [address]-08-05 17:38:00 Test Item Value Reference Range Interpretation Comments Red Blood Cell Count (test code = Red 4.37 4.20-5.40 Blood Cell Count) [address]08-05 17:38:00 Test Item Value Reference Range Interpretation Comments Hemoglobin (test code = Hemoglobin) 12.7 12.0-16.[address]08-05 17:38:00 Test Item Value Reference Range Interpretation Comments Hematocrit (test code = Hematocrit) 38.3 36.0-48.0 [address]08-05 17:38:00 Test Item Value Reference Range Interpretation Comments MCV (test code = MCV) 87.5 80.0-98.0 [address]08-05 17:38:00 Test Item Value Reference Range Interpretation Comments MCH (test code = MCH) 29.2 pg 27.0-31.0 [place] [address]-08-05 17:38:00 Test Item Value Reference Range Interpretation Comments MCHC (test code = MCHC) 33.3 32.0-36.0 [place] [address]-08-05 17:38:00 Test Item Value Reference Range Interpretation Comments RDW (test code = RDW) 14.2 11.5-14.5 [place] [address]-08-05 17:38:00 Test Item Value Reference Range Interpretation Comments Platelet (test code = Platelet) 300 133-450 [place] 274180-08-05 17:38:00 Test Item Value Reference Range Interpretation Comments MPV (test code = MPV) 8.3 7.4-10.[address] [facility] [facility] HospitalHbgqautPNGNNWNZJO7123-45-50 17:38:00 Test Item Value Reference Range Interpretation Comments NRBCs # (test code = NRBCs #) 0.1 0.4-2.[address] [facility] HospitalZwzjdzhLDQTEXDTZZ0393-90-22 17:38:00 Test Item Value Reference Range Interpretation Comments Results (test code = Reported (02/18/20 12:38 Results) PM) [place] [address]-08-05 17:38:00 Test Item Value Reference Range Interpretation Comments Neutrophil % (test code = Neutrophil %) 62.2 45.0-75.[address] [facility] HospitalGuosrogVQDKNUZBGD3639-35-79 17:38:00 Test Item Value Reference Range Interpretation Comments Monocyte % (test code = Monocyte %) 6.8 2.0-12.[address] [facility] HospitalTndelaqUYVAHYRWKY4883-45-44 17:38:00 Test Item Value Reference Range Interpretation Comments Lymphocyte % (test code = Lymphocyte %) 26.9 20.0-40.[address] [facility] HospitalKqnsfiiELEGQISFEK9078-50-77 17:38:00 Test Item Value Reference Range Interpretation Comments Eosinophil # (test code 3.6 See_Comment [Au tomated message] The = Eosinophil #) system which generated this result tra nsmitted reference range : <=4.0. The reference r karan was not used to int erpret this result as normal/abnormal . [facility] HospitalAyirymdRMSIIDLPBN9192-09-99 17:38:00 Test Item Value Reference Range Interpretation Comments Basophil % (test code = 0.5 See_Comment [Au tomated message] The Basophil %) system which ge nerated this result tra nsmitted reference range : <=1.0. The reference r karan was not used to int erpret this result as normal/abnormal . [facility] HospitalTfmyllhPDCYOFYZKK9120-36-55 17:38:00 Test Item Value Reference Range Interpretation Comments Neutrophil # (test code = Neutrophil #) 4.0 1.5-8.[address] [facility] HospitalAvadjzxGCLDQKVUDF4520-23-19 17:38:00 Test Item Value Reference Range Interpretation Comments Lymphocyte # (test code = Lymphocyte #) 1.7 1.0-5.5 [place] [address]-08-05 17:38:00 Test Item Value Reference Range Interpretation Comments Monocyte # (test code = 0.4 See_Comment [Au tomated message] The Monocyte #) system which ge nerated this result tra nsmitted reference range : <=0.8. The reference r karan was not used to int erpret this result as normal/abnormal . [facility] HospitalSsmdtioVDIINSOXGH8653-89-46 17:38:00 Test Item Value Reference Range Interpretation Comments Eosinophil % (test code 0.2 See_Comment [Au tomated message] The = Eosinophil %) system which generated this result tra nsmitted reference range : <=0.5. The reference r karan was not used to int erpret this result as normal/abnormal . [facility] HospitalSszeluxCIPJEQDMVJ5938-87-73 17:38:00 Test Item Value Reference Range Interpretation Comments Results (test code = Reported (02/18/20 12:38 Results) PM) [facility] HospitalBdkdxxiQJJCAAAVZB6565-04-78 17:38:00 Test Item Value Reference Range Interpretation Comments Glucose Lvl (test code = Glucose Lvl) 89 70-[address] [facility] HospitalUtwmrmdYADSPSCKWK9233-64-03 17:38:00 Test Item Value Reference Range Interpretation Comments BUN (test code = BUN) 12 7-[address] [facility] HospitalQjwrmyiCJDAKPKMPS8756-46-31 17:38:00 Test Item Value Reference Range Interpretation Comments Creatinine (test code = Creatinine) 0.79 0.50-1.[address] [facility] [facility] HospitalRsdfwxcZDNRPSZUKO8951-28-18 17:38:00 Test Item Value Reference Range Interpretation Comments Sodium Level (test code = Sodium Level) 141 135-[address] [facility] HospitalHgpoqswXAPUKTSXHG7791-09-62 17:38:00 Test Item Value Reference Range Interpretation Comments Potassium Level (test code = Potassium 4.5 3.5-5.1 Level) [facility] HospitalQxqgofbXPPYKTVNEU0644-87-55 17:38:00 Test Item Value Reference Range Interpretation Comments Chloride Level (test code = Chloride 108 95-109 Level) [facility] HospitalTdndkcwIHJDVKLBJT1540-63-60 17:38:00 Test Item Value Reference Range Interpretation Comments Total Carbon Dioxide Level (test code = 24 24-32 Total Carbon Dioxide Level) [facility] HospitalNjwgursPTCVZZXIKV6029-40-41 17:38:00 Test Item Value Reference Range Interpretation Comments AGAP (test code = AGAP) 13.5 10.0-20.[address] [facility] HospitalBdrvdkvPHEYSDEQVZ5660-46-39 17:38:00 Test Item Value Reference Range Interpretation Comments Calcium Level (test code = Calcium 9.5 8.5-10.5 Level) [place] [address]-08-05 17:38:00 Test Item Value Reference Range Interpretation Comments eGFR (test code = eGFR) 92 [place] [address]-08-05 17:38:00 Test Item Value Reference Range Interpretation Comments Results (test code = Reported (02/18/20 12:38 Results) PM) [place] [address]-08-05 17:38:00 Test Item Value Reference Range Interpretation Comments White Blood Count (test code = White 6.4 3.7-10.4 Blood Count) [place] [address]-08-05 17:38:00 Test Item Value Reference Range Interpretation Comments Red Blood Cell Count (test code = Red 4.37 4.20-5.40 Blood Cell Count) [facility] HospitalSqomjhsBTCTIFBOFQ3500-15-78 17:38:00 Test Item Value Reference Range Interpretation Comments Hemoglobin (test code = Hemoglobin) 12.7 12.0-16.0 [place] [address]-08-05 17:38:00 Test Item Value Reference Range Interpretation Comments Hematocrit (test code = Hematocrit) 38.3 36.0-48.[address] [facility] HospitalIgknvaxCZDIMNYWIV9897-78-71 17:38:00 Test Item Value Reference Range Interpretation Comments MCV (test code = MCV) 87.5 80.0-98.0 [place] [address]-08-05 17:38:00 Test Item Value Reference Range Interpretation Comments MCH (test code = MCH) 29.2 pg 27.0-31.0 [place] [address]-08-05 17:38:00 Test Item Value Reference Range Interpretation Comments MCHC (test code = MCHC) 33.3 32.0-36.0 [place] [address]-08-05 17:38:00 Test Item Value Reference Range Interpretation Comments RDW (test code = RDW) 14.2 11.5-14.5 [place] [address]-08-05 17:38:00 Test Item Value Reference Range Interpretation Comments Platelet (test code = Platelet) 300 133-[address] [facility] HospitalKoccsrwIVFEKZWPSH9361-72-16 17:38:00 Test Item Value Reference Range Interpretation Comments MPV (test code = MPV) 8.3 7.4-10.[address] [facility] HospitalYzvynryPPLQBOQQIS9815-36-37 17:38:00 Test Item Value Reference Range Interpretation Comments NRBCs # (test code = NRBCs #) 0.1 0.4-2.[address] [facility] HospitalLxctmruSIERUKVDYU5967-62-90 17:38:00 Test Item Value Reference Range Interpretation Comments Results (test code = Reported (02/18/20 12:38 Results) PM) [facility] HospitalJvahgnaPGCYZLNRBW6861-83-81 17:38:00 Test Item Value Reference Range Interpretation Comments Neutrophil % (test code = Neutrophil %) 62.2 45.0-75.[address] [facility] HospitalUwzizvmKCHSANXPQL6215-87-65 17:38:00 Test Item Value Reference Range Interpretation Comments Monocyte % (test code = Monocyte %) 6.8 2.0-12.[address] [facility] HospitalXteoujsLJOWVUEQSM8313-96-53 17:38:00 Test Item Value Reference Range Interpretation Comments Lymphocyte % (test code = Lymphocyte %) 26.9 20.0-40.[address] [facility] HospitalDechbfxYJEDDVYJCU3462-40-62 17:38:00 Test Item Value Reference Range Interpretation Comments Eosinophil # (test code 3.6 See_Comment [Au tomated message] The = Eosinophil #) system which generated this result tra nsmitted reference range : <=4.0. The reference r karan was not used to int erpret this result as normal/abnormal . [facility] HospitalQzzffrrRLIIIGAIOR1058-09-44 17:38:00 Test Item Value Reference Range Interpretation Comments Basophil % (test code = 0.5 See_Comment [Au tomated message] The Basophil %) system which ge nerated this result tra nsmitted reference range : <=1.0. The reference r karan was not used to int erpret this result as normal/abnormal . [facility] HospitalAvirrvlWWCECYUOXM9856-13-69 17:38:00 Test Item Value Reference Range Interpretation Comments Neutrophil # (test code = Neutrophil #) 4.0 1.5-8.[address] [facility] HospitalBlzexwiNICYZIOWKN4327-03-69 17:38:00 Test Item Value Reference Range Interpretation Comments Lymphocyte # (test code = Lymphocyte #) 1.7 1.0-5.[address] [facility] HospitalLejpuvyGDKLSNRSLQ4413-09-49 17:38:00 Test Item Value Reference Range Interpretation Comments Monocyte # (test code = 0.4 See_Comment [Au tomated message] The Monocyte #) system which ge nerated this result tra nsmitted reference range : <=0.8. The reference r karan was not used to int erpret this result as normal/abnormal . [facility] HospitalEjmpmyeFNTMTZFESB4657-80-77 17:38:00 Test Item Value Reference Range Interpretation Comments Eosinophil % (test code 0.2 See_Comment [Au tomated message] The = Eosinophil %) system which generated this result tra nsmitted reference range : <=0.5. The reference r karan was not used to int erpret this result as normal/abnormal . [facility] HospitalBdlfuvyPNZSXWNNGN2784-66-29 17:38:00 Test Item Value Reference Range Interpretation Comments Results (test code = Reported (02/18/20 12:38 Results) PM) [facility] HospitalGrfjlcqPMTIDRMOBF3004-91-08 17:38:00 Test Item Value Reference Range Interpretation Comments Glucose Lvl (test code = Glucose Lvl) 89 70-[address] [facility] HospitalSrbqbzpDQWHCYMRLK8142-31-40 17:38:00 Test Item Value Reference Range Interpretation Comments BUN (test code = BUN) 12 7-[address] HospitalZhqsssuZLPXYVWTPV6010-98-67 17:38:00 Test Item Value Reference Range Interpretation Comments Creatinine (test code = Creatinine) 0.79 0.50-1.[address] [facility] HospitalYzpvzvlLXGZAMTBNX3091-68-04 17:38:00 Test Item Value Reference Range Interpretation Comments Sodium Level (test code = Sodium Level) 141 135-[address] [facility] HospitalNjtddxwRPWENEJRKM1817-68-15 17:38:00 Test Item Value Reference Range Interpretation Comments Potassium Level (test code = Potassium 4.5 3.5-5.1 Level) [facility] HospitalIonnykzMZJZKDUYFS7183-25-60 17:38:00 Test Item Value Reference Range Interpretation Comments Chloride Level (test code = Chloride 108 95-109 Level) [facility] HospitalCzfefbgKMOXJHTFNH4373-97-12 17:38:00 Test Item Value Reference Range Interpretation Comments Total Carbon Dioxide Level (test code = 24 24-32 Total Carbon Dioxide Level) [facility] HospitalKuhgsytGPYAKAUVSR6706-99-83 17:38:00 Test Item Value Reference Range Interpretation Comments AGAP (test code = AGAP) 13.5 10.0-20.0 [place] [address]-08-05 17:38:00 Test Item Value Reference Range Interpretation Comments Calcium Level (test code = Calcium 9.5 8.5-10.5 Level) [place] [address]180-08-05 17:38:00 Test Item Value Reference Range Interpretation Comments eGFR (test code = eGFR) 92 [place] [address]-08-05 17:38:00 Test Item Value Reference Range Interpretation Comments Results (test code = Reported (02/18/20 12:38 Results) PM) [address]08-05 17:38:00 Test Item Value Reference Range Interpretation Comments White Blood Count (test code = White 6.4 3.7-10.4 Blood Count) [facility] HospitalGdsebwsTUEXCUYUYQ6430-65-94 17:38:00 Test Item Value Reference Range Interpretation Comments Red Blood Cell Count (test code = Red 4.37 4.20-5.40 Blood Cell Count) [place] [address]180-08-05 17:38:00 Test Item Value Reference Range Interpretation Comments Hemoglobin (test code = Hemoglobin) 12.7 12.0-16.0 [place] [address]-08-05 17:38:00 Test Item Value Reference Range Interpretation Comments Hematocrit (test code = Hematocrit) 38.3 36.0-48.0 [place] [address]-08-05 17:38:00 Test Item Value Reference Range Interpretation Comments MCV (test code = MCV) 87.5 80.0-98.0 [place] [address]-08-05 17:38:00 Test Item Value Reference Range Interpretation Comments MCH (test code = MCH) 29.2 pg 27.0-31.0 [place] [address]-08-05 17:38:00 Test Item Value Reference Range Interpretation Comments MCHC (test code = MCHC) 33.3 32.0-36.0 [place] [address]180-08-05 17:38:00 Test Item Value Reference Range Interpretation Comments RDW (test code = RDW) 14.2 11.5-14.[address] [facility] HospitalTskefmgNGEJVCGYXO6136-48-25 17:38:00 Test Item Value Reference Range Interpretation Comments Platelet (test code = Platelet) 300 133-[address] [facility] HospitalSeaxnmkUVWHTSAQIP5155-37-65 17:38:00 Test Item Value Reference Range Interpretation Comments MPV (test code = MPV) 8.3 7.4-10.[address] [facility] HospitalOwvdifjDRNTDXLHAF5393-85-01 17:38:00 Test Item Value Reference Range Interpretation Comments NRBCs # (test code = NRBCs #) 0.1 0.4-2.[address] [facility] HospitalXqokbzaLCXXUHVFJC7537-80-03 17:38:00 Test Item Value Reference Range Interpretation Comments Results (test code = Reported (02/18/20 12:38 Results) PM) [facility] HospitalMpyeeenDRGCPGCUUT2489-53-13 17:38:00 Test Item Value Reference Range Interpretation Comments Neutrophil % (test code = Neutrophil %) 62.2 45.0-75.[address] [facility] HospitalGxqfhonKOTFSDJDJH7303-36-57 17:38:00 Test Item Value Reference Range Interpretation Comments Monocyte % (test code = Monocyte %) 6.8 2.0-12.[address] [facility] HospitalVajxxczCSJZZAYMOO2511-87-87 17:38:00 Test Item Value Reference Range Interpretation Comments Lymphocyte % (test code = Lymphocyte %) 26.9 20.0-40.[address] [facility] HospitalForaumqUGEFXJHNKI9336-50-79 17:38:00 Test Item Value Reference Range Interpretation Comments Eosinophil # (test code 3.6 See_Comment [Au tomated message] The = Eosinophil #) system which generated this result tra nsmitted reference range : <=4.0. The reference r karan was not used to int erpret this result as normal/abnormal . [facility] HospitalUaxungsIZPNBIXUTJ9283-31-30 17:38:00 Test Item Value Reference Range Interpretation Comments Basophil % (test code = 0.5 See_Comment [Au tomated message] The Basophil %) system which ge nerated this result tra nsmitted reference range : <=1.0. The reference r karan was not used to int erpret this result as normal/abnormal . [facility] HospitalHbshaheAWQFXLSIKG4789-89-16 17:38:00 Test Item Value Reference Range Interpretation Comments Neutrophil # (test code = Neutrophil #) 4.0 1.5-8.[address] [facility] HospitalFumomfaMHYNAQUFHQ2323-86-44 17:38:00 Test Item Value Reference Range Interpretation Comments Lymphocyte # (test code = Lymphocyte #) 1.7 1.0-5.[address] [facility] HospitalLhrvpzuRHLCWBYCDP0924-59-92 17:38:00 Test Item Value Reference Range Interpretation Comments Monocyte # (test code = 0.4 See_Comment [Au tomated message] The Monocyte #) system which ge nerated this result tra nsmitted reference range : <=0.8. The reference r karan was not used to int erpret this result as normal/abnormal . [facility] HospitalYzllhiuGEOFPLQKDC8128-43-27 17:38:00 Test Item Value Reference Range Interpretation Comments Eosinophil % (test code 0.2 See_Comment [Au tomated message] The = Eosinophil %) system which generated this result tra nsmitted reference range : <=0.5. The reference r karan was not used to int erpret this result as normal/abnormal . [facility] HospitalZxeiqswZBKIUJAMWZ9406-44-28 17:38:00 Test Item Value Reference Range Interpretation Comments Results (test code = Reported (02/18/20 12:38 Results) PM) [facility] HospitalBdskltsDURQSAVUSO9257-06-20 17:38:00 Test Item Value Reference Range Interpretation Comments Glucose Lvl (test code = Glucose Lvl) 89 70-[address] [facility] HospitalAiuureqSHVYVPBDEB3971-88-58 17:38:00 Test Item Value Reference Range Interpretation Comments BUN (test code = BUN) 12 7-[address] HospitalNcphkxoRGZHTTUBPX7250-45-42 17:38:00 Test Item Value Reference Range Interpretation Comments Creatinine (test code = Creatinine) 0.79 0.50-1.[address] [facility] HospitalMlrpytdZOSEOLLZUB6379-20-80 17:38:00 Test Item Value Reference Range Interpretation Comments Sodium Level (test code = Sodium Level) 141 135-[address] [facility] HospitalNzbmyohNNIMVFIFBW3853-45-75 17:38:00 Test Item Value Reference Range Interpretation Comments Potassium Level (test code = Potassium 4.5 3.5-5.1 Level) [facility] HospitalCgvdqevKAKZPRLZEJ1305-29-13 17:38:00 Test Item Value Reference Range Interpretation Comments Chloride Level (test code = Chloride 108 95-109 Level) [facility] HospitalJrdnaiaYBSMHZGIFO5152-93-50 17:38:00 Test Item Value Reference Range Interpretation Comments Total Carbon Dioxide Level (test code = 24 24-32 Total Carbon Dioxide Level) [address]08-05 17:38:00 Test Item Value Reference Range Interpretation Comments AGAP (test code = AGAP) 13.5 10.0-20.0 [place] [address]-08-05 17:38:00 Test Item Value Reference Range Interpretation Comments Calcium Level (test code = Calcium 9.5 8.5-10.5 Level) [address]08-05 17:38:00 Test Item Value Reference Range Interpretation Comments eGFR (test code = eGFR) 92 [place] [address]-08-05 17:38:00 Test Item Value Reference Range Interpretation Comments Results (test code = Reported (02/18/20 12:38 Results) PM) [address]08-05 17:38:00 Test Item Value Reference Range Interpretation Comments White Blood Count (test code = White 6.4 3.7-10.4 Blood Count) [address]08-05 17:38:00 Test Item Value Reference Range Interpretation Comments Red Blood Cell Count (test code = Red 4.37 4.20-5.40 Blood Cell Count) [address]08-05 17:38:00 Test Item Value Reference Range Interpretation Comments Hemoglobin (test code = Hemoglobin) 12.7 12.0-16.0 [place] [address]-08-05 17:38:00 Test Item Value Reference Range Interpretation Comments Hematocrit (test code = Hematocrit) 38.3 36.0-48.0 [address]08-05 17:38:00 Test Item Value Reference Range Interpretation Comments MCV (test code = MCV) 87.5 80.0-98.0 [address]08-05 17:38:00 Test Item Value Reference Range Interpretation Comments MCH (test code = MCH) 29.2 pg 27.0-31.0 [place] [address]-08-05 17:38:00 Test Item Value Reference Range Interpretation Comments MCHC (test code = MCHC) 33.3 32.0-36.0 [address]08-05 17:38:00 Test Item Value Reference Range Interpretation Comments RDW (test code = RDW) 14.2 11.5-14.[address] [facility] HospitalLjwuidyDBVLKRDCAS1549-07-99 17:38:00 Test Item Value Reference Range Interpretation Comments Platelet (test code = Platelet) 300 133-[address] [facility] HospitalTuqlyysBHGTNWLMBP4255-00-98 17:38:00 Test Item Value Reference Range Interpretation Comments MPV (test code = MPV) 8.3 7.4-10.[address] [facility] HospitalDdbtbqfLHKEUEWVQG3848-32-12 17:38:00 Test Item Value Reference Range Interpretation Comments NRBCs # (test code = NRBCs #) 0.1 0.4-2.[address] [facility] HospitalWvyxsdeLLVSRHLHCP9680-22-41 17:38:00 Test Item Value Reference Range Interpretation Comments Results (test code = Reported (02/18/20 12:38 Results) PM) [facility] HospitalJggrzfyEVLOEIKLFP6014-25-24 17:38:00 Test Item Value Reference Range Interpretation Comments Neutrophil % (test code = Neutrophil %) 62.2 45.0-75.[address] [facility] HospitalMawriyyCWHFQZRYQL6755-49-39 17:38:00 Test Item Value Reference Range Interpretation Comments Monocyte % (test code = Monocyte %) 6.8 2.0-12.[address] [facility] HospitalItsygchLMSQLFJORB8775-44-51 17:38:00 Test Item Value Reference Range Interpretation Comments Lymphocyte % (test code = Lymphocyte %) 26.9 20.0-40.[address] [facility] HospitalFitclboDZMXHYJTMN4487-85-78 17:38:00 Test Item Value Reference Range Interpretation Comments Eosinophil # (test code 3.6 See_Comment [Au tomated message] The = Eosinophil #) system which generated this result tra nsmitted reference range : <=4.0. The reference r karan was not used to int erpret this result as normal/abnormal . [facility] HospitalAgfixitMSTLWXCTBL3541-12-70 17:38:00 Test Item Value Reference Range Interpretation Comments Basophil % (test code = 0.5 See_Comment [Au tomated message] The Basophil %) system which ge nerated this result tra nsmitted reference range : <=1.0. The reference r karan was not used to int erpret this result as normal/abnormal . [facility] HospitalYknbmamLKXEZIICEW0395-35-72 17:38:00 Test Item Value Reference Range Interpretation Comments Neutrophil # (test code = Neutrophil #) 4.0 1.5-8.[address] [facility] HospitalFensgapREEMGOIXWQ1190-05-20 17:38:00 Test Item Value Reference Range Interpretation Comments Lymphocyte # (test code = Lymphocyte #) 1.7 1.0-5.[address] [facility] HospitalYuhxvshBOKNNMFOTV8280-43-26 17:38:00 Test Item Value Reference Range Interpretation Comments Monocyte # (test code = 0.4 See_Comment [Au tomated message] The Monocyte #) system which ge nerated this result tra nsmitted reference range : <=0.8. The reference r karan was not used to int erpret this result as normal/abnormal . [facility] HospitalTszrbnrLWQSRDFEDO3046-31-61 17:38:00 Test Item Value Reference Range Interpretation Comments Eosinophil % (test code 0.2 See_Comment [Au tomated message] The = Eosinophil %) system which generated this result tra nsmitted reference range : <=0.5. The reference r karan was not used to int erpret this result as normal/abnormal . [facility] HospitalSzbsjleYEPJHATZVZ7202-34-43 17:38:00 Test Item Value Reference Range Interpretation Comments Results (test code = Reported (02/18/20 12:38 Results) PM) [facility] HospitalLyjauwnDVJFXRVUTW9534-21-94 17:38:00 Test Item Value Reference Range Interpretation Comments Glucose Lvl (test code = Glucose Lvl) 89 70-[address] [facility] HospitalPjyltyfVGMMPCPLKB4392-16-82 17:38:00 Test Item Value Reference Range Interpretation Comments BUN (test code = BUN) 12 7-[address] HospitalTismmnfXBMBNWAJFS8546-56-43 17:38:00 Test Item Value Reference Range Interpretation Comments Creatinine (test code = Creatinine) 0.79 0.50-1.[address] [facility] HospitalKfarttjEMJIRZXDIT7537-52-37 17:38:00 Test Item Value Reference Range Interpretation Comments Sodium Level (test code = Sodium Level) 141 135-[address] [facility] HospitalAjdkszqSZEAISMGDO4358-26-80 17:38:00 Test Item Value Reference Range Interpretation Comments Potassium Level (test code = Potassium 4.5 3.5-5.1 Level) [facility] HospitalGkncxfcEXZUHRQWPU9233-09-39 17:38:00 Test Item Value Reference Range Interpretation Comments Chloride Level (test code = Chloride 108 95-109 Level) [place] [address]-08-05 17:38:00 Test Item Value Reference Range Interpretation Comments Total Carbon Dioxide Level (test code = 24 24-32 Total Carbon Dioxide Level) [address]08-05 17:38:00 Test Item Value Reference Range Interpretation Comments AGAP (test code = AGAP) 13.5 10.0-20.0 [address]08-05 17:38:00 Test Item Value Reference Range Interpretation Comments Calcium Level (test code = Calcium 9.5 8.5-10.5 Level) [address]08-05 17:38:00 Test Item Value Reference Range Interpretation Comments eGFR (test code = eGFR) 92 [place] [address]-08-05 17:38:00 Test Item Value Reference Range Interpretation Comments Results (test code = Reported (02/18/20 12:38 Results) PM) [address]08-05 17:38:00 Test Item Value Reference Range Interpretation Comments White Blood Count (test code = White 6.4 3.7-10.4 Blood Count) [address]08-05 17:38:00 Test Item Value Reference Range Interpretation Comments Red Blood Cell Count (test code = Red 4.37 4.20-5.40 Blood Cell Count) [address]08-05 17:38:00 Test Item Value Reference Range Interpretation Comments Hemoglobin (test code = Hemoglobin) 12.7 12.0-16.0 [address]08-05 17:38:00 Test Item Value Reference Range Interpretation Comments Hematocrit (test code = Hematocrit) 38.3 36.0-48.0 [address]08-05 17:38:00 Test Item Value Reference Range Interpretation Comments MCV (test code = MCV) 87.5 80.0-98.0 [address]08-05 17:38:00 Test Item Value Reference Range Interpretation Comments MCH (test code = MCH) 29.2 pg 27.0-31.0 [place] [address]-08-05 17:38:00 Test Item Value Reference Range Interpretation Comments MCHC (test code = MCHC) 33.3 32.0-36.[address] [facility] HospitalWzmqvfcTAADSMRBXM2231-42-82 17:38:00 Test Item Value Reference Range Interpretation Comments RDW (test code = RDW) 14.2 11.5-14.[address] HospitalGrhnzfpGHXACYKKXG4627-62-40 17:38:00 Test Item Value Reference Range Interpretation Comments Platelet (test code = Platelet) 300 133-[address] [facility] HospitalVmkwqddXJBZEQXVXR0381-94-50 17:38:00 Test Item Value Reference Range Interpretation Comments MPV (test code = MPV) 8.3 7.4-10.[address] HospitalHwblrniZAJTQEDVAC7119-54-91 17:38:00 Test Item Value Reference Range Interpretation Comments NRBCs # (test code = NRBCs #) 0.1 0.4-2.[address] HospitalTekmzfiGRWFPRPELD5163-21-34 17:38:00 Test Item Value Reference Range Interpretation Comments Results (test code = Reported (02/18/20 12:38 Results) PM) [facility] HospitalMazkwatORIYQKOJBA4027-69-53 17:38:00 Test Item Value Reference Range Interpretation Comments Neutrophil % (test code = Neutrophil %) 62.2 45.0-75.[address] HospitalOalnacsEWFYMTZWNJ7293-95-95 17:38:00 Test Item Value Reference Range Interpretation Comments Monocyte % (test code = Monocyte %) 6.8 2.0-12.[address] [facility] HospitalTuvrehdLYZOJDXQUQ7904-45-45 17:38:00 Test Item Value Reference Range Interpretation Comments Lymphocyte % (test code = Lymphocyte %) 26.9 20.0-40.[address] [facility] HospitalKzluoujHJMJOBDDWA0890-39-54 17:38:00 Test Item Value Reference Range Interpretation Comments Eosinophil # (test code 3.6 See_Comment [Au tomated message] The = Eosinophil #) system which generated this result tra nsmitted reference range : <=4.0. The reference r karan was not used to int erpret this result as normal/abnormal . [facility] HospitalWitjjysQYPDYLEUDU7956-20-28 17:38:00 Test Item Value Reference Range Interpretation Comments Basophil % (test code = 0.5 See_Comment [Au tomated message] The Basophil %) system which ge nerated this result tra nsmitted reference range : <=1.0. The reference r karan was not used to int erpret this result as normal/abnormal . [facility] HospitalMhyadshKRYTSAAYQI0048-13-80 17:38:00 Test Item Value Reference Range Interpretation Comments Neutrophil # (test code = Neutrophil #) 4.0 1.5-8.[address] HospitalZmbaarwUHIOIFWRSW1148-24-85 17:38:00 Test Item Value Reference Range Interpretation Comments Lymphocyte # (test code = Lymphocyte #) 1.7 1.0-5.[address] HospitalIbvqhwoRCSECQGOEC1408-87-07 17:38:00 Test Item Value Reference Range Interpretation Comments Monocyte # (test code = 0.4 See_Comment [Au tomated message] The Monocyte #) system which ge nerated this result tra nsmitted reference range : <=0.8. The reference r karan was not used to int erpret this result as normal/abnormal . [facility] HospitalRbyccunJRORGSMESP8778-92-09 17:38:00 Test Item Value Reference Range Interpretation Comments Eosinophil % (test code 0.2 See_Comment [Au tomated message] The = Eosinophil %) system which generated this result tra nsmitted reference range : <=0.5. The reference r karan was not used to int erpret this result as normal/abnormal . [facility] HospitalWiflgatEKFWYIWRKM3443-15-87 17:38:00 Test Item Value Reference Range Interpretation Comments Results (test code = Reported (02/18/20 12:38 Results) PM) [facility]
[2022-12-14 11:37] LABS: Absolute Lymphocytes (CBC) 1.6 K/uL (0.7-4.9); Hematocrit 41.5 % (36.0-45.0); Lymphocytes % 33.5 % (15.3-44.8); MPV 8.4 fL (7.6-11.3); RBC Red Blood Cell Count 4.77 M/uL (3.86-4.86)
[2022-12-14 11:44] LABS: Protime INR 1.19
[2022-12-14 11:48] LABS: Potassium 3.8 mEq/L (3.5-5.1)
--- NOTE | 2022-12-14 12:24 | RAD REPORT ---
EXAM DESCRIPTION: CT - Soft Tissue Neck W/Contr CLINICAL HISTORY: right neck pain, swelling, lymphadenopathy COMPARISON: No comparisons TECHNIQUE All CT scans are performed using dose optimization technique as appropriate and may includ e automated exposure control or mA/KV adjustment according to patient size. FINDINGS: 10 mm enhancing fluid collection at the skin surface and subcutaneous tissues along the ri ght aspect of the neck at the patient's palpable abnormality. Nasopharyngeal tissues are normal in appearance. Fossa Rosenmller are normal. Parapharyngeal fat triangles are symmetric. Tongue base structures are normal. Epiglottis and aryepiglottic folds are normal. Piriform sinuses are well aerated. The vocal cords are normal in appearance. Salivary glands are normal in appearance. Upper lung burton are clear. Included intracranial contents are unremarkable. Multilevel degenerative changes are present in the spine. IMPRESSION: Small superficial 10 mm fluid collection at the right aspect of the neck is at the skin surface and may represent a small infected sebaceous cyst. No lymphadenopathy.
[2022-12-14] MEDS ORDERED: LIDOCAINE 1% MPF 5 ML VIAL ONE (12:47)
--- NOTE | 2022-12-14 15:11 | EDPHYS ---
Physician Documentation [facility] Name: Trudi Villavicencio Age: 47 yrs Sex: Female : 1975 Arrival Date: 12/14/2022 Time: 10:24 Bed 10 Private MD: ED Physician Jacinto Thomas HPI: 12/14 15:04 This 47 yrs old Female presents to ER via Ambulatory with complaints of Jaw Pain, Neck rn pain. 15:04 the patient presents with a swollen area of the neck. Description: The affected area is rn small, localized. Onset: The symptoms/episode began/occurred 1 week(s) ago. Possible cause(s): unknown. Associated signs and symptoms: Pertinent positives: swelling, Pertinent negatives: drainage, fever. Modifying factors: the symptoms are alleviated by nothing, the symptoms are aggravated by touching. Severity of symptoms: At their worst the symptoms were moderate, in the emergency department the symptoms are unchanged. The patient has experienced a previous episode. The patient has been recently seen at the [facility] Emergency Department. Pt reports seen here last week, Dr. Severino placed her on abx, finished abx, still hurting at right lateral/posterior neck, specific area that feels swollen and painful. No fever. One of spots went away, this one has persisted. . Historical: - Allergies: 10:32 Aspirin; mb9 10:32 Codeine; mb9 10:32 Topamax; mb9 10:32 tramadol; mb9 - PMHx: 10:32 gastritis; neuropathy; osteoarthritis; Radiculopathy; mb9 - PSHx: 10:32 breast reduction; mb9 - Immunization history:: Adult Immunizations up to date. - Social history:: Smoking status: Patient denies any tobacco usage or history of. - Family history:: not pertinent. - Hospitalizations: : No recent hospitalization is reported. ROS: 15:04 Constitutional: Negative for fever, chills, and weight loss, Neck: + right rn posterior/lateral neck Cardiovascular: Negative for chest pain, palpitations, and edema, Respiratory: Negative for shortness of breath, cough, wheezing, and pleuritic chest pain, Abdomen/GI: Negative for abdominal pain, nausea, vomiting, diarrhea, and constipation, Back: Negative for injury and pain, : Negative for injury, bleeding, discharge, and swelling, MS/Extremity: Negative for injury and deformity, Skin: Negative for injury, rash, and discoloration, Neuro: Negative for headache, weakness, numbness, tingling, and seizure. Exam: 15:04 Constitutional: This is a well developed, well nourished patient who is awake, alert, rn and in no acute distress. Head/Face: Normocephalic, atraumatic. Neck: Trachea midline, single 1cm area of swelling, mobile, non-fluctuant right posterior/lateral neck Vital Signs: 10:30 BP 154 / 142; Pulse 84; Resp 18; Temp 99.2; Pulse Ox 99% on R/A; Weight 94.35 kg; mb9 Height 5 ft. 3 in. ; Pain 10/10; 10:30 Body Mass Index 36.85 (94.35 kg, 160.02 cm) mb9 10:30 Pain Scale: Adult mb9 Procedures: 15:04 I \T\ D: Incision and drainage was performed for an abscess of the right neck Prepped rn with Betadine, Anesthetized with 2 ml's 1% Lidocaine. Incised with 18g needle. Drained small amount bloody fluid. Dressing: bandaid the patient tolerated the procedure well, Using ultrasound guidance entire time, tolerated well, no bleeding, felt better immediately after procedure. . MDM: 10:29 Patient medically screened. rn 15:04 Differential diagnosis: abscess, cellulitis, insect bite, sebaceous cyst, lipoma, rn infected sebaceous cyst. . Data reviewed: vital signs, nurses notes, radiologic studies, CT scan, and as a result, I will admit patient. Counseling: I had a detailed discussion with the patient and/or guardian regarding: the historical points, exam findings, and any diagnostic results supporting the discharge/admit diagnosis, radiology results, the need for outpatient follow up, to return to the emergency department if symptoms worsen or persist or if there are any questions or concerns that arise at home. Response to treatment: the patient's symptoms have markedly improved after treatment, and as a result, I will discharge patient. Special discussion: I discussed with the patient/guardian in detail that at this point there is no indication for admission to the hospital. It is understood, however, that if the symptoms persist or worsen the patient needs to return immediately for re-evaluation. 12/14 10:33 Order name: CBC with Diff; Complete Time: 12:28 rn 12/14 10:33 Order name: Basic Metabolic Panel; Complete Time: 12:28 rn 12/14 10:33 Order name: Protime (+inr); Complete Time: 12:28 rn 12/14 10:33 Order name: Ptt, Activated; Complete Time: 12:28 rn 12/14 10:33 Order name: CT Soft Tissue Neck W/contr; Complete Time: 12:28 rn 12/14 10:33 Order name: IV; Complete Time: 11:28 rn Administered Medications: 13:15 Drug: Lidocaine Infiltration (1 %) 1 vials {Note: by .} Volume: 5 ml; Route: iw Infiltration; 15:20 Drug: Clindamycin IVPB 600 mg Route: IVPB; Infused Over: 30 mins; Site: right iw antecubital; Disposition Summary: 12/14/22 15:11 Discharge Ordered Location: Home rn Problem: new rn Symptoms: have improved rn Condition: Stable rn Diagnosis - Sebaceous cyst rn Followup: rn - With: Dedrick Jimenez MD - When: As needed - Reason: Recheck today's complaints, Re-evaluation by your physician Discharge Instructions: - Discharge Summary Sheet rn - Epidermoid Cyst rn Forms: - Medication Reconciliation Form rn - Thank You Letter rn - Antibiotic burn out tender lace - Prescription Opioid Use rn Prescriptions: - Clindamycin HCl 300 mg Oral Capsule - take 1 capsule by ORAL route every 6 hours for 10 days; 40 capsule; Refills: 0, rn Product Selection Permitted Signatures: Dispatcher [employer] Kellee Amin, RN Jacinto Talley MD MD rn Breneman, Mary Beth, RN RN mb9
--- NOTE | 2022-12-14 15:11 | ER ---
Nurse's Notes [facility] Name: Trudi Villavicencio Age: 47 yrs Sex: Female : 1975 Arrival Date: 12/14/2022 Time: 10:24 Bed 10 Private MD: Diagnosis: Sebaceous cyst Presentation: 12/14 10:30 Chief complaint: Patient states: "Last Sunday I had a bump on my right side of neck mb9 and was given antibiotics. But it hurts really bad and It turpin. The pain radiates to my jaw and hurts really bad. My skin has been itching a lot". Coronavirus screen: Vaccine status: Patient reports receiving the 2nd dose of the covid vaccine. Ebola Screen: No symptoms or risks identified at this time. Initial Sepsis Screen: Does the patient meet any 2 criteria? No. Patient's initial sepsis screen is negative. Does the patient have a suspected source of infection? No. Patient's initial sepsis screen is negative. Risk Assessment: Do you want to hurt yourself or someone else? Patient reports no desire to harm self or others. Onset of symptoms was December 14, 2022. 10:30 Method Of Arrival: Ambulatory mb9 10:30 Acuity: HOWIE 3 mb9 Triage Assessment: 10:33 General: Appears uncomfortable, Behavior is crying. Pain: Complains of pain in right mb9 side of neck Pain radiates to jaw Quality of pain is described as burning, Pain began gradually, Is continuous. Neuro: [place] Agitation-Sedation Scale (RASS): 0 - Alert and Calm Level of Consciousness is awake, alert, obeys commands, Oriented to person, place, time, situation, Appropriate for age. Respiratory: Airway is patent Respiratory effort is even, unlabored, Respiratory pattern is regular, symmetrical. Derm: Skin is pink, warm \\T\\ dry. Historical: - Allergies: 10:32 Aspirin; mb9 10:32 Codeine; mb9 10:32 Topamax; mb9 10:32 tramadol; mb9 - PMHx: 10:32 gastritis; neuropathy; osteoarthritis; Radiculopathy; mb9 - PSHx: 10:32 breast reduction; mb9 - Immunization history:: Adult Immunizations up to date. - Social history:: Smoking status: Patient denies any tobacco usage or history of. - Family history:: not pertinent. - Hospitalizations: : No recent hospitalization is reported. Screenin:27 [facility] ED Fall Risk Assessment (Adult) History of falling in the last 3 months, iw including since admission. Abuse screen: Denies threats or abuse. Denies injuries from another. Nutritional screening: No deficits noted. Tuberculosis screening: No symptoms or risk factors identified. Assessment: 11:26 General: Appears in no apparent distress. Behavior is calm, cooperative. Pain: iw Complains of pain in neck. Neuro: Level of Consciousness is awake, alert, obeys commands, Oriented to person, place, time, situation, Moves all extremities. Full function. Cardiovascular: Patient's skin is warm and dry. Derm: Skin is intact, is healthy with good turgor. Vital Signs: 10:30 BP 154 / 142; Pulse 84; Resp 18; Temp 99.2; Pulse Ox 99% on R/A; Weight 94.35 kg; mb9 Height 5 ft. 3 in. ; Pain 10/10; 10:30 Body Mass Index 36.85 (94.35 kg, 160.02 cm) mb9 10:30 Pain Scale: Adult mb9 ED Course: 10:27 Patient arrived in ED. mr 10:29 Jacinto Thomas MD is Attending Physician. rn 10:30 Arm band placed on. mb9 10:32 Triage completed. 9 11:26 Kellee Tran, RN is Primary Nurse. iw 11:27 Initial lab(s) drawn, by il. Inserted saline lock: 22 gauge in right antecubital area, iw using aseptic technique. Blood collected. 12:11 CT Soft Tissue Neck W/contr In Process Unspecified. EDOR 15:11 Dedrick Jimenez MD is Referral Physician. rn Administered Medications: 13:15 Drug: Lidocaine Infiltration (1 %) 1 vials {Note: by .} Volume: 5 ml; Route: iw Infiltration; 15:20 Drug: Clindamycin IVPB 600 mg Route: IVPB; Infused Over: 30 mins; Site: right iw antecubital; Medication: 11:27 VIS not applicable for this client. iw Outcome: 15:11 Discharge ordered by . rn 15:37 Patient left the ED. iw Signatures: Dispatcher [employer] [facility] Aileen Adam mr Kellee Tran RN Jacinto Talley MD MD rn Breneman, Aileen Antonio, BECK RN mb9
[2022-12-14] MEDS ORDERED: CLINDAMYCIN 600MG/D5W 50 ML IV ONE (15:28)
[2022-12-14 16:12] VITALS: BP 154/142; TEMP 99.2; O2SAT 99
== END 2022-12-14 15:37 | disposition home or self-care (01) ==
LOC: ER 10:24
PROC: 0H94XZZ Drainage of Neck Skin, External Approach (ICD-10-PCS; principal; 2022-12-14)
DX: L72.3 Sebaceous cyst (principal)
CPT/HCPCS: 36415; 70491; 80048; 85025; 85610; 85730; 96374; 99284; J2001; Q9967

== ENCOUNTER 2022-12-29 10:44 | Emergency (ER) | payer SELFPAY ==
--- OUTSIDE RECORDS SUMMARY | 2022-12-29 10:56 | XMS REPORT | Continuity of Care Document ---
:1975 Author Organization [facility] t Address [address] [place] [address] Care Team Providers Name Role Phone Asked, No Pcp Primary Care Physician Unavailable Danie Garcia Attending Clinician Unavailable ESTER PERES Attending Clinician Unavailable ALFONZO ALARCON Attending Clinician Unavailable Doctor Unassigned, [place] Attending Clinician Unavailable HAMZAH CAMPBELL Attending Clinician Unavailable CAT PRITCHETT Attending Clinician Unavailable Cat Pritchett DO Attending Clinician Marina PERALTA, Tony Hdz Attending Clinician Alfonzo Alarcon MD Attending Clinician [phone] Malcom Espinal Attending Clinician ROYCE PRUETT [...] Date Expiration Date S ource [employer] [place] [id number] 2020 - OUT OF STATE 0 00:00:00 BCBS 2 [id number] 2021 0 00:00:00 [employer] 6 [id number] 2020 Common Spiri t Blue Shield of 00:00:00 - [facility] Problems Condition Condition Condition Status [...] f medial medial 00:00: g of this [place] meniscus meniscus 00 note Medica l of left of left might be Branch knee as knee as different current current from the injury, injury, original. initial initial Added encounter encounter automatic ally from request for surgery [id number] Secondary Secondary Disease Active Overview: Univers oligomenor oligomenor 4-08 Formattin ity of pete pete 00:00: g of this [place] 00 note Medical might be Branch different from the original. 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 07-16 04:01:02 l (disorder) (disorder) 00:00: He rmann Active 07/16/1976 Problem 02/28/2020 reports reaction from [facility] Disc Disc Disease Active Univers disease, disease, ity of degenerati degenerati [place] ve, lumbar ve, lumbar Me dical or or Branch lumbosacra lumbosacra l l Cervical Cervical Disease Active Unive rs herniated herniated ity of disc disc [facility] Lumbar Lumbar Disease Active Univers herniated herniated ity of disc disc [facility] Cervical Cervical Disease Active Unive rs herniated herniated ity of disc disc [facility] [id number] Multiple Problem Commo n joint pain Spirit - [facility] [id number] Neuropathi Problem Co mmon c pain Spirit - [facility] [id number] Fibromyalg Problem Co mmon ia Spirit affecting - [facility]I multiple [facility] [id number] 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 [facility] Center disorder, Medical without Center psychotic features [id number] Influenza Problem Commo n Spirit - [facility] Backache Back pain, Problem Com mon unspecifie Spirit d back - CHI location, St unspecifie [facility] d back Medical pain Center laterality , unspecifie d chronicity [id number] Anxiety Problem Common Spirit [facility] Acute Acute Problem Common bronchitis bronchitis Sp elana , - CHI unspecifie [facility] Essential Essential Problem Com mon hypertensi hypertensi Sp elana on on CHI [facility] Acute Acute Problem Common upper upper Spirit respirator respirator - CHI y y St infection infection, [place] es unspecifie Medica l d Center [id number] History of Problem Co mmon hiatal Spirit hernia [facility] Asthma Uncomplica Problem Commo n without margaret Spirit status asthma, - CHI asthmaticu unspecifie St s asthma [facility] severity, Medical unspecifie Center d whether persistent Seasonal Seasonal Problem Commo n allergic allergic Spirit rhinitis rhinitis, - CHI unspecifie [facility] [id number] Depression Problem Co mmon with Spirit anxiety [facility] [id number] Suicidal Problem Common ideation [facility] [id number] Non-intrac Problem Com mon table Spirit vomiting - CHI with St nausea unspecifie Medica l d vomiting Center type [id number] Epigastric Problem Com mon pain [facility] [id number] Endometria Problem Co mmon l cancer [facility] [id number] Slurred Problem Commo n speech Spirit [facility] [id number] Moderate Problem Comm on asthma Spirit without - CHI complicati St unspecifie Medica l d whether Center persistent [id number] Noncomplia Problem Co mmon nce with Spirit medication - CHI regimen [facility] [id number] Gastroesop Problem Co mmon hageal Spirit reflux - CHI disease [facility] esophagiti Medica l s Center [id number] Chronic Problem Commo n pruritus Spirit [facility] Asthma Asthma Problem Active 2022-07-24 Lev trupti (disorder) (disorder) 12:01:02 l Active [place] Problem 07/24/2022 [facility] Gastritis Gastritis Problem Active 2022-07-24 Memoria (disorder) (disorder) 12:01:02 l Active [place] Problem 07/24/2022 [facility] Hypertensi Hypertens Problem Active 2022-07-24 Memoria ve shireen 12:01:02 l disorder, disorder, Herm mckenna systemic systemic arterial arterial (disorder) (disorder) Active Problem 07/24/2022 [facility] Hypothyroi Hypothyro Problem Active 2022-07-24 Memoria dism idism 12:01:02 l (disorder) (disorder) He [facility] Active Problem 07/24/2022 [facility] Migraine Migraine Problem Active 2022-07-24 Memoria (disorder) (disorder) 12:01:02 l Active [place] Problem 07/24/2022 [facility] Morbid Morbid Problem Active 2022-07-24 [facility] obesity obesity 12:01:02 l (disorder) (disorder) He ann Active Problem 07/24/2022 [facility] 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 12:01:02 l (disorder) (disorder) He ann Active Problem 07/24/2022 [facility] Hemangioma Hemangiom Problem Active 2022-07-24 Memoria of a of 12:01:02 l intracrani intracrani Vladimir mckenna al al structure structure (disorder) (disorder) Active Problem 07/24/2022 [facility] Ankle pain Ankle Problem Active 2022-07-24 M emoria (finding) pain 12:01:02 l (finding) Luca Active Problem 07/24/2022 [facility] Paresthesi Paresthes Problem Active 2022-07-24 Memoria a ia 12:01:02 l (finding) (finding) Herm mckenna Active Problem 07/24/2022 [facility] Lumbar Lumbar Problem Active 2022-07-24 [facility] radiculopa radiculopa 12:01:02 l thy thy Luca (disorder) (disorder) Active Problem 07/24/2022 [facility] Peripheral Periphera Problem Active 2022-07-24 Memoria nerve l nerve 12:01:02 l disease disease [place] (disorder) (disorder) Active Problem 07/24/2022 [facility] Acid Acid Problem Active 2020-02-28 Memor ia [...] Syndrome Yung Syndrome Codeine Codeine Active Unknown [facility] topirama topirama Active Unknown Commo n te te Spirit [facility] aspirin aspirin Active Unknown Common [facility] codeine codeine Active Memoria l [place] aspirin aspirin Active Memoria l [place] traMADol traMADol Active Memori a l [place] Topamax Topamax Active Memoria l [place] codeine Allergy Active [facility] to drug [facility] (finding ans ) Family History Family Member Diagnosis Comments Start Date Stop Date Source Maternal grandmother Diabetes [facility] Maternal grandmother Stroke [facility] Natural mother Heart attack [facility] Natural mother Heart disease [facility] Natural father Diabetes [facility] Natural father Heart attack [facility] Maternal aunt Cancer [facility] Social History Social Habit Start Date Stop Date Quantity Comments Source History of Tobacco Common [facility] - Use [facility] Gender identity [facility] Exposure to Not sure Rosi Semeron armendariz SARS-CoV-2 (event) Alcohol intake 2021-05-19 2021-05-19 [facility] 00:00:00 00:00:00 non-drinker Hospital (finding) History of Social 2021-05-19 2021-05-[address] function 00:00:00 00:00:00 Hospital Tobacco use and 2021-05-19 2021-05-19 Smokeless [facility] exposure 00:00:00 00:00:00 tobacco non-user Hospital Sex Assigned At [birth year] [facility] 00:00:00 00:00:00 Hospital Smoking Status Start Date Stop Date Source Tobacco smoking status [facility] Medications Ordered Filled Start Stop Current Ordering Indication Dosage Frequency Signature Comments Components Source Medication Medication Date Date Medication? Clinician (SIG) Name Name nitrofurant 2020-07 Yes nitrofuran [facility] candace, 07-[address] macrocrysta 10:54: monohydrat Hospita [...] capsule mupirocin 2020-07 Yes Apply [facility] (BACTROBAN) 1- [...] l doxycycline 2020-07 Yes doxycyclin [facility] (VIBRA-TABS 07-19 [...] qv 2020-07 Yes Flublok Meth jason 2019,18yr 1- Quad st up,rc,PF, 10:53: Hos helga (Flublok 59 (PF) 180 l Quad mcg (45 [id number], mcg x PF,) 180 4)/0.5 mL mcg (45 mcg IM syringe x 4)/0.5 mL PHARMACIST syringe ADMINISTER ED IMMUNIZATI ON ADMINISTER ED AT TIME OF DISPENSING bromphenira 2020-07 Yes bromphenir [facility] mine-pseudo 1-04 amine-pseu st eph-DM 10:53: doephedrin Hospi ta 58 e-DM 2 l mg/5 mL mg-30 syrup mg-10 mg/5 mL oral syrup bromphenira 2020-07 Yes bromphenir [facility] mine-pseudo -04 amine-pseu st eph-DM 10:53: doephedrin Hospi ta 58 e-DM 2 l mg/5 mL mg-30 syrup mg-10 mg/5 mL oral syrup budesonide 2020-07 Yes 1mg Inhale 1 Met hodi (PULMICORT) 1-[address] 1 mg/2 mL 10:53: Hospita nebulizer 58 l solution budesonide 2020-07 Yes 1mg Inhale 1 Met [...] mine-pseudo 1-04 amine-pseu st eph-DM 10:53: doephedrin [facility] 58 e-DM 2 l mg/5 mL mg-30 syrup mg-10 mg/5 mL oral syrup budesonide 2020-07 Yes 1mg Inhale 1 Met hodi (PULMICORT) 1-[address] 1 mg/2 mL 10:53: Hospita nebulizer 58 l solution bromphenira 2020-07 Yes bromphenir [facility] mine-pseudo 1-04 amine-pseu st eph-DM 10:53: doephedrin [facility] 58 e-DM 2 l mg/5 mL [...] 32 on daily Suspension Cyclobenzap 2020-07 Yes [id number] 10mg Take 1 Rosi rine HCl 10 [...] day, # 10 tab, 1 Refill(s), Pharmacy: [facility], For Migraine. May repeat dose after 2 hours. Max dose 200 mg/ 24 hours, 152.4, cm, 03/16/21 8:31:00 CDT, Height, 112.727, kg, 03/16/21 8... ubrogepant 2020-0 Yes 100 mg = 1 M emoria 100 MG Oral 9-10 tab, PO, l Tablet 21:15: PRN, PRN Luca [Ubrelvy] 00 Other -See Comment, X 30 day, # 10 tab, 1 Refill(s), Pharmacy: [facility], For Migraine. May repeat dose after 2 hours. Max dose 200 mg/ 24 hours, 152.4, cm, 03/16/21 8:31:00 CDT, Height, 112.727, kg, 03/16/21 8... ubrogepant 2020-0 Yes 100 mg = 1 M emoria 100 MG Oral 9-10 tab, PO, l Tablet 21:15: PRN, PRN [place] [Ubrelvy] 00 Other -See Comment, X 30 day, # 10 tab, 1 Refill(s), Pharmacy: [facility], For Migraine. May repeat dose after 2 hours. Max dose 200 mg/ 24 hours, 152.4, cm, 03/16/21 8:31:00 CDT, Height, 112.727, kg, 03/16/21 8... ubrogepant 2020-0 Yes 100 mg = 1 M emoria 100 MG Oral 9-10 tab, PO, l Tablet 21:15: PRN, PRN [place] [Ubrelvy] 00 Other -See Comment, X 30 day, # 10 tab, 1 Refill(s), Pharmacy: [facility], For Migraine. May repeat dose after 2 hours. Max dose 200 mg/ 24 hours, 152.4, cm, 03/16/21 8:31:00 CDT, Height, 112.727, kg, 03/16/21 8... ubrogepant 2021-0 Yes 100 mg = 1 M emoria 100 MG Oral 9-10 tab, PO, l Tablet 21:15: PRN, PRN [place] [Ubrelvy] 00 Other -See Comment, X 30 day, # 10 tab, 1 Refill(s), Pharmacy: [facility], For Migraine. May repeat dose after 2 hours. Max dose 200 mg/ 24 hours, 152.4, cm, 03/16/21 8:31:00 CDT, Height, 112.727, kg, 03/16/21 8... ubrogepant 2021-0 Yes 100 mg = 1 M emoria 100 MG Oral 9-10 tab, PO, l Tablet 21:15: PRN, PRN [place] [Ubrelvy] 00 Other -See Comment, X 30 day, # 10 tab, 1 Refill(s), Pharmacy: [facility], For Migraine. May repeat dose after 2 hours. Max dose 200 mg/ 24 hours, 152.4, cm, 03/16/21 8:31:00 CDT, Height, 112.727, kg, 03/16/21 8... ubrogepant 2021-0 Yes 100 mg = 1 M emoria 100 MG Oral 9-10 tab, PO, l Tablet 21:15: PRN, PRN [place] [Ubrelvy] 00 Other -See Comment, X 30 day, # 10 tab, 1 Refill(s), Pharmacy: [facility], For Migraine. May repeat dose after 2 hours. Max dose 200 mg/ 24 hours, 152.4, cm, 03/16/21 8:31:00 CDT, Height, 112.727, kg, 03/16/21 8... ubrogepant 2021-0 Yes 100 mg = 1 M ethodi (Ubrelvy) 9-10 tab, PO, st 100 mg 00:00: PRN, PRN Hospita tablet 00 Other -See l Comment, X 30 day, # 10 tab, 1 Refill(s), Pharmacy: [facility], For Migraine. May repeat dose after 2 hours. Max dose 200 mg/ 24 hours, 152.4, cm, 03/16/21 8:31:00 CDT, Height, 112.727, kg, 03/16/21 8... ubrogepant 2021-0 Yes 100 mg = 1 M ethodi (Ubrelvy) 9-10 tab, PO, st 100 mg 00:00: PRN, PRN Hospita tablet 00 Other -See l Comment, X 30 day, # 10 tab, 1 Refill(s), Pharmacy: [facility], For Migraine. May repeat dose after 2 hours. Max dose 200 mg/ 24 hours, 152.4, cm, 03/16/21 8:31:00 CDT, Height, 112.727, kg, 03/16/21 8... ubrogepant 2021-0 Yes 100 mg = 1 M ethodi (Ubrelvy) 9-10 tab, PO, st 100 mg 00:00: PRN, PRN Hospita tablet 00 Other -See l Comment, X 30 day, # 10 tab, 1 Refill(s), Pharmacy: [facility], For Migraine. May repeat dose after 2 hours. Max dose 200 mg/ 24 hours, 152.4, cm, 03/16/21 8:31:00 CDT, Height, 112.727, kg, 03/16/21 8... ubrogepant 2021-0 Yes 100 mg = 1 M ethodi (Ubrelvy) 9-10 tab, PO, st 100 mg 00:00: PRN, PRN Hospita tablet 00 Other -See l Comment, X 30 day, # 10 tab, 1 Refill(s), Pharmacy: [facility], For Migraine. May repeat dose after 2 hours. Max dose 200 mg/ 24 hours, 152.4, cm, 03/16/21 8:31:00 CDT, Height, 112.727, kg, 03/16/21 8... ubrogepant 2021-0 Yes 100 mg = 1 M ethodi (Ubrelvy) 9-10 tab, PO, st 100 mg 00:00: PRN, PRN [facility]ospita tablet 00 Other -See l Comment, X 30 day, # 10 tab, 1 Refill(s), Pharmacy: [facility], For Migraine. May repeat dose after 2 hours. Max dose 200 mg/ 24 hours, 152.4, cm, 03/16/21 8:31:00 CDT, Height, 112.727, kg, 03/16/21 8... ubrogepant 2021-0 Yes 100 mg = 1 M ethodi (Ubrelvy) 9-10 tab, PO, st 100 mg 00:00: PRN, PRN [facility]ospita tablet 00 Other -See l Comment, X 30 day, # 10 tab, 1 Refill(s), Pharmacy: [facility], For Migraine. May repeat dose after 2 hours. Max dose 200 mg/ 24 hours, 152.4, cm, 03/16/21 8:31:00 CDT, Height, 112.727, kg, 03/16/21 8... ubrogepant 2021-0 Yes 100 mg = 1 M ethodi (Ubrelvy) 9-10 tab, PO, st 100 mg 00:00: PRN, PRN Hospita tablet 00 Other -See l Comment, X 30 day, # 10 tab, 1 Refill(s), Pharmacy: [facility], For Migraine. May repeat dose after 2 hours. Max dose 200 mg/ 24 hours, 152.4, cm, 03/16/21 8:31:00 CDT, Height, 112.727, kg, 03/16/21 8... ubrogepant 2021-0 Yes 100 mg = 1 M ethodi (Ubrelvy) 9-10 tab, PO, st 100 mg 00:00: PRN, PRN [facility]ospita tablet 00 Other -See l Comment, X 30 day, # 10 tab, 1 Refill(s), Pharmacy: [facility], For Migraine. May repeat dose after 2 hours. Max dose 200 mg/ 24 hours, 152.4, cm, 03/16/21 8:31:00 CDT, Height, 112.727, kg, 03/16/21 8... ubrogepant 2021-0 Yes 100 mg = 1 M ethodi (Ubrelvy) 9-10 tab, PO, st 100 mg 00:00: PRN, PRN [facility]ospita tablet 00 Other -See l Comment, X 30 day, # 10 tab, 1 Refill(s), Pharmacy: [facility], For Migraine. May repeat dose after 2 hours. Max dose 200 mg/ 24 hours, 152.4, cm, 03/16/21 8:31:00 CDT, Height, 112.727, kg, 03/16/21 8... ubrogepant 2021-0 Yes 100 mg = 1 M ethodi (Ubrelvy) 9-10 tab, PO, st 100 mg 00:00: PRN, PRN Hospita tablet 00 Other -See l Comment, X 30 day, # 10 tab, 1 Refill(s), Pharmacy: [facility], For Migraine. May repeat dose after 2 hours. Max dose 200 mg/ 24 hours, 152.4, cm, 03/16/21 8:31:00 CDT, Height, 112.727, kg, 03/16/21 8... ubrogepant 1-0 No 100 mg = 1 M emoria 100 MG Oral -03 tab, PO, l Tablet 16:30: PRN, PRN Luca [Ubrelvy] 00 Other -See Comment, X 30 day, # 10 tab, 1 Refill(s), Pharmacy: [facility], For Migraine. May repeat dose after 2 hours. Max dose 200 mg/ 24 hours, 152.4, cm, 03/16/21 8:31:00 CDT, Height, 112.727, kg, 03/16/21 8:... ubrogepant 1-0 No 100 mg = 1 M emoria 100 MG Oral 9-03 tab, PO, l Tablet 16:30: PRN, PRN [place] [Ubrelvy] 00 Other -See Comment, X 30 day, # 10 tab, 1 Refill(s), Pharmacy: [facility], For Migraine. May repeat dose after 2 hours. Max dose 200 mg/ 24 hours, 152.4, cm, 03/16/21 8:31:00 CDT, Height, 112.727, kg, 03/16/21 8:... ubrogepant 2021-0 No 100 mg = 1 M emoria 100 MG Oral 9-03 tab, PO, l Tablet 16:30: PRN, PRN [place] [Ubrelvy] 00 Other -See Comment, X 30 day, # 10 tab, 1 Refill(s), Pharmacy: [facility], For Migraine. May repeat dose after 2 hours. Max dose 200 mg/ 24 hours, 152.4, cm, 03/16/21 8:31:00 CDT, Height, 112.727, kg, 03/16/21 8:... ubrogepant 2021-0 No 100 mg = 1 M emoria 100 MG Oral 9-03 tab, PO, l Tablet 16:30: PRN, PRN [place] [Ubrelvy] 00 Other -See Comment, X 30 day, # 10 tab, 1 Refill(s), Pharmacy: [facility], For Migraine. May repeat dose after 2 hours. Max dose 200 mg/ 24 hours, 152.4, cm, 03/16/21 8:31:00 CDT, Height, 112.727, kg, 03/16/21 8:... ubrogepant 2021-0 No 100 mg = 1 M emoria 100 MG Oral 9-03 tab, PO, l Tablet 16:30: PRN, PRN Luca [Ubrelvy] 00 Other -See Comment, X 30 day, # 10 tab, 1 Refill(s), Pharmacy: [facility], For Migraine. May repeat dose after 2 hours. Max dose 200 mg/ 24 hours, 152.4, cm, 03/16/21 8:31:00 CDT, Height, 112.727, kg, 03/16/21 8:... ubrogepant 2021-0 No 100 mg = 1 M emoria 100 MG Oral 9-03 tab, PO, l Tablet 16:30: PRN, PRN Luca [Ubrelvy] 00 Other -See Comment, X 30 day, # 10 tab, 1 Refill(s), Pharmacy: [facility], For Migraine. May repeat dose after 2 hours. Max dose 200 mg/ 24 hours, 152.4, cm, 03/16/21 8:31:00 CDT, Height, 112.727, kg, 03/16/21 8:... ubrogepant 2020-0 No 100 mg = 1 M emoria 100 MG Oral 9-03 tab, PO, l Tablet 16:30: PRN, PRN [place] [Ubrelvy] 00 Other -See Comment, X 30 day, # 10 tab, 1 Refill(s), Pharmacy: [facility], For Migraine. May repeat dose after 2 hours. Max dose 200 mg/ 24 hours, 152.4, cm, 03/16/21 8:31:00 CDT, Height, 112.727, kg, 03/16/21 8:... amitriptyli 2020-0 Yes = 1 tab, Me moria ne 75 mg 9-01 PO, l oral tablet 23:57: Bedtime, # Luca 00 30 ea, 5 Refill(s), Pharmacy: [facility], 152.4, cm, 03/16/21 8:31:00 CDT, Height, 112.727, kg, 03/16/21 8:31:00 CDT, Weight amitriptyli 2020-0 Yes = 1 tab, Me moria ne 75 mg 9-01 PO, l oral tablet 23:57: Bedtime, # [place] 00 30 ea, 5 Refill(s), Pharmacy: [facility], 152.4, cm, 03/16/21 8:31:00 CDT, Height, 112.727, kg, 03/16/21 8:31:00 CDT, Weight amitriptyli 2020-0 Yes = 1 tab, Me moria ne 75 mg 9-01 PO, l oral tablet 23:57: Bedtime, # Luca 00 30 ea, 5 Refill(s), Pharmacy: [facility], 152.4, cm, 03/16/21 8:31:00 CDT, Height, 112.727, kg, 03/16/21 8:31:00 CDT, Weight amitriptyli 2020-0 Yes = 1 tab, Me moria ne 75 mg 9-01 PO, l oral tablet 23:57: Bedtime, # Luca 00 30 ea, 5 Refill(s), Pharmacy: [facility], 152.4, cm, 03/16/21 8:31:00 CDT, Height, 112.727, kg, 03/16/21 8:31:00 CDT, Weight amitriptyli 2020-0 Yes = 1 tab, Me moria ne 75 mg 9-01 PO, l oral tablet 23:57: Bedtime, # Luca 00 30 ea, 5 Refill(s), Pharmacy: [facility], 152.4, cm, 03/16/21 8:31:00 CDT, Height, 112.727, kg, 03/16/21 8:31:00 CDT, Weight amitriptyli 2020-0 Yes = 1 tab, Me moria ne 75 mg 9-01 PO, l oral tablet 23:57: Bedtime, # [place] 00 30 ea, 5 Refill(s), Pharmacy: [facility], 152.4, cm, 03/16/21 8:31:00 CDT, Height, 112.727, kg, 03/16/21 8:31:00 CDT, Weight amitriptyli 2020-0 Yes = 1 tab, Me moria ne 75 mg 9-01 PO, l oral tablet 23:57: Bedtime, # [place] 00 30 ea, 5 Refill(s), Pharmacy: [facility], 152.4, cm, 03/16/21 8:31:00 CDT, Height, 112.727, kg, 03/16/21 8:31:00 CDT, Weight Amitriptyli 2020-0 Yes amitriptyl Rosi ne HCl 75 9- ine 75 mg Seybo ld MG oral 00:00: tablet Tablet 00 ubrogepant No 100 mg = 1 M emoria 100 MG Oral 8-23 tab, PO, l Tablet 21:26: PRN, PRN [place] [Ubrelvy] 00 Other -See Comment, X 30 day, # 10 tab, 1 Refill(s), Pharmacy: [facility], For Migraine. May repeat dose after 2 hours. Max dose 200 mg/ 24 hours, 152.4, cm, 02/01/21 13:49:00 CDT, Height, 116.818, kg, 02/01/21 1... ubrogepant 2021-0 No 100 mg = 1 M emoria 100 MG Oral 8-23 tab, PO, l Tablet 21:26: PRN, PRN [place] [Ubrelvy] 00 Other -See Comment, X 30 day, # 10 tab, 1 Refill(s), Pharmacy: [facility], For Migraine. May repeat dose after 2 hours. Max dose 200 mg/ 24 hours, 152.4, cm, 02/01/21 13:49:00 CDT, Height, 116.818, kg, 02/01/21 1... ubrogepant 2021-0 No 100 mg = 1 M emoria 100 MG Oral 8-23 tab, PO, l Tablet 21:26: PRN, PRN [place] [Ubrelvy] 00 Other -See Comment, X 30 day, # 10 tab, 1 Refill(s), Pharmacy: [facility], For Migraine. May repeat dose after 2 hours. Max dose 200 mg/ 24 hours, 152.4, cm, 02/01/21 13:49:00 CDT, Height, 116.818, kg, 02/01/21 1... ubrogepant 2021-0 No 100 mg = 1 M emoria 100 MG Oral 8-23 tab, PO, l Tablet 21:26: PRN, PRN [place] [Ubrelvy] 00 Other -See Comment, X 30 day, # 10 tab, 1 Refill(s), Pharmacy: [facility], For Migraine. May repeat dose after 2 hours. Max dose 200 mg/ 24 hours, 152.4, cm, 02/01/21 13:49:00 CDT, Height, 116.818, kg, 02/01/21 1... ubrogepant 2021-0 No 100 mg = 1 M emoria 100 MG Oral 8-23 tab, PO, l Tablet 21:26: PRN, PRN [place] [Ubrelvy] 00 Other -See Comment, X 30 day, # 10 tab, 1 Refill(s), Pharmacy: [facility], For Migraine. May repeat dose after 2 hours. Max dose 200 mg/ 24 hours, 152.4, cm, 02/01/21 13:49:00 CDT, Height, 116.818, kg, 02/01/21 1... ubrogepant 2021-0 No 100 mg = 1 M emoria 100 MG Oral 8-23 tab, PO, l Tablet 21:26: PRN, PRN [place] [Ubrelvy] 00 Other -See Comment, X 30 day, # 10 tab, 1 Refill(s), Pharmacy: [facility], For Migraine. May repeat dose after 2 hours. Max dose 200 mg/ 24 hours, 152.4, cm, 02/01/21 13:49:00 CDT, Height, 116.818, kg, 02/01/21 1... ubrogepant 2020-0 No 100 mg = 1 M emoria 100 MG Oral 8-23 tab, PO, l Tablet 21:26: PRN, PRN [place] [Ubrelvy] 00 Other -See Comment, X 30 day, # 10 tab, 1 Refill(s), Pharmacy: [facility], For Migraine. May repeat dose after 2 hours. Max dose 200 mg/ 24 hours, 152.4, cm, 02/01/21 13:49:00 CDT, Height, 116.818, kg, 02/01/21 1... Polytrim Polytrim 2020-0 202- No 1{drop_ QID Polytrim 89623-3.1 26701-5.1 02-2316 into_af 98180-6.1 UNIT/ML UNIT/ML 00:00: 00:00 fected_ UNIT/ML 00 :00 eye} ibuprofen Yes [facility] (ADVIL) 600 8-04 st MG tablet 00:00: Hospita 00 l ibuprofen 0 Yes [facility] (ADVIL) 600 8-04 st MG [...] 8-04 Seybold Tablet 00:00: 00 Cyclobenzap Cyclobenzap 0 2021- No 1{table QD Cyclobenza rine HCl 10 rine HCl 10 02-16- t_at_be dex HCl MG MG 00:00: 00:00 dtime_a 10 MG 00 :00 s_neede d} Cyclobenzap Cyclobenzap 0 2021- No 1{table QD Cyclobenza rine HCl 10 rine HCl 10 02-16-03 t_at_be dex HCl MG MG 00:00: 00:00 dtime_a 10 MG 00 :00 s_neede d} Cyclobenzap Cyclobenzap 2020-0 2021- No 1{table QD Cyclobenza rine HCl 10 rine HCl 10 02-16-03 t_at_be dex HCl MG MG 00:00: 00:00 dtime_a 10 MG 00 :00 s_neede d} Cyclobenzap Cyclobenzap 0 2021- No 1{table QD Cyclobenza rine HCl 10 rine HCl 10 02-16-03 t_at_be dex HCl MG MG 00:00: 00:00 [...] 600 MG 00:00: 00:00 00 :00 methylPREDN Yes [id number] 84mg Take 21 [facility] ISolone 7-30 tablets by ity of (MEDROL, 00:00: mouth [place] GENARO,) 4 mg 00 SEE-INSTRU Med ical tablets CTIONS. Branch follow package directions methylPREDN Yes [id number] 84mg Take 21 [facility] ISolone 7-30 tablets by ity of (MEDROL, 00:00: mouth [place] GENARO,) 4 mg 00 SEE-INSTRU Med ical tablets CTIONS. Branch follow package directions methylPREDN Yes [id number] 84mg Take 21 [facility] ISolone 7-30 tablets by ity of (MEDROL, 00:00: mouth [place] GENARO,) 4 mg 00 SEE-INSTRU Med ical tablets CTIONS. Branch follow package directions methylPREDN Yes [id number] 84mg Take 21 [facility] ISolone 7-30 tablets by ity of (MEDROL, 00:00: mouth [place] GENARO,) 4 mg 00 SEE-INSTRU Med ical tablets CTIONS. Branch follow package directions Levothyroxi Levothyroxi No QD Levothyrox ne Sodium ne Sodium 01-14 ine Sodium 150 MCG 150 MCG 00:00: 150 MCG 00 Levothyroxi Levothyroxi No QD Levothyrox ne Sodium ne Sodium 7 ine Sodium 150 MCG 150 MCG 00:00: 150 MCG 00 Levothyroxi Levothyroxi No QD Levothyrox ne Sodium ne Sodium 01-14 ine Sodium 150 MCG 150 MCG 00:00: [...] 25 MCG 00:00: 25 MCG 00 medroxyPROG 0 Yes every 24 [place] ESTERone 5-13 hours Seybold Acetate 10 00:00: MG oral 00 Tablet medroxyPROG 2020- Yes 20mg Take 2 Univers [...] daily. Medical tablet Branch medroxyPROG 2021-0 Yes [id number] 20mg Take 2 [facility] ESTERone 5-13 tablets by ity o f (PROVERA) 00:00: mouth [place] 10 mg 00 daily. 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, Height, 113.636, kg, 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636, kg, 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, Weight Maxalt 5 mg 2021-0 Yes 5 mg = 1 Me moria oral tablet 3-12 tab, PO, l 20:23: ONCE, PRN [place] 00 for migraine headache, # 9 tab, 1 Refill(s), Pharmacy: [facility], 160.02, cm, 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, Height, 113.636, kg, 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, Weight rizatriptan 2021-0 Yes 5 mg = 1 Me moria 5 MG Oral 3-12 tab, PO, l Tablet 20:23: ONCE, PRN [place] [Maxalt] 00 for migraine headache, # 9 tab, 1 Refill(s), Pharmacy: [facility], 160.02, cm, 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, Height, 113.636, kg, 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, Weight Maxalt 5 mg 2021-0 Yes 5 mg = 1 Me moria oral tablet 3-12 tab, PO, l 20:23: ONCE, PRN [place] 00 for migraine headache, # 9 tab, 1 Refill(s), Pharmacy: [facility], 160.02, cm, 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, Height, 113.636, kg, 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, Weight rizatriptan 2021-0 Yes 5 mg = 1 Me moria 5 MG Oral 3-12 tab, PO, l Tablet 20:23: ONCE, PRN [place] [Maxalt] 00 for migraine headache, # 9 tab, 1 Refill(s), Pharmacy: [facility], 160.02, cm, 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, Height, 113.636, kg, 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, Weight Maxalt 5 mg 2021-0 Yes 5 mg = 1 Me moria oral tablet 3-12 tab, PO, l 20:23: ONCE, PRN [place] 00 for migraine headache, # 9 tab, 1 Refill(s), Pharmacy: [facility], 160.02, cm, 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, Height, 113.636, kg, 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636, kg, 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, Weight Maxalt 5 mg 2020-0 Yes 5 mg = 1 Me moria oral tablet 3-12 tab, PO, l 20:23: ONCE, PRN [place] 00 for migraine headache, # 9 tab, 1 Refill(s), Pharmacy: [facility], 160.02, cm, 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, Height, 113.636, kg, 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, Weight Rizatriptan 2020-0 Yes rizatripta Rosi Benzoate 5 3-12 n 5 mg Seybold MG oral 00:00: tablet Tablet 00 TAKE 1 TABLET BY MOUTH ONCE DAILY NEEDED FOR HEADACHE MIGRAINE rizatriptan 2020-0 Yes 5 mg = 1 Me moria 5 MG Oral 9-15 tab, PO, l Tablet 22:44: ONCE, PRN [place] [Maxalt] 00 for migraine headache, # 9 tab, 1 Refill(s), Pharmacy: [facility], 152.4, cm, 01/15/20 15:04:00 CDT, Height, 115.455, kg, 01/15/20 15:04:00 CDT, Weight rizatriptan 2020-0 Yes 5 mg = 1 Me moria 5 MG Oral 9-15 tab, PO, l Tablet 22:44: ONCE, PRN [place] [Maxalt] 00 for migraine headache, # 9 tab, 1 Refill(s), Pharmacy: [facility], 152.4, cm, 01/15/20 15:04:00 CDT, Height, 115.455, kg, 01/15/20 15:04:00 CDT, Weight rizatriptan 2020-0 Yes 5 mg = 1 Me moria 5 MG Oral 9-15 tab, PO, l Tablet 22:44: ONCE, PRN [place] n [Maxalt] 00 for migraine headache, # 9 tab, 1 Refill(s), Pharmacy: [facility], 152.4, cm, 01/15/20 15:04:00 CDT, Height, 115.455, kg, 01/15/20 15:04:00 CDT, Weight rizatriptan 2020-0 Yes 5 mg = 1 Me moria 5 MG Oral 9-15 tab, PO, l Tablet 22:44: ONCE, PRN [place] [Maxalt] 00 for migraine headache, # 9 tab, 1 Refill(s), Pharmacy: [facility], 152.4, cm, 01/15/20 15:04:00 CDT, Height, 115.455, kg, 01/15/20 15:04:00 CDT, Weight rizatriptan 2020-0 Yes 5 mg = 1 Me moria 5 MG Oral 9-15 tab, PO, l Tablet 22:44: ONCE, PRN [place] [Maxalt] 00 for migraine headache, # 9 tab, 1 Refill(s), Pharmacy: [facility], 152.4, cm, 01/15/20 15:04:00 CDT, Height, 115.455, kg, 01/15/20 15:04:00 CDT, Weight rizatriptan 2020-0 Yes 5 mg = 1 Me moria 5 MG Oral 9-15 tab, PO, l Tablet 22:44: ONCE, PRN [place] [Maxalt] 00 for migraine headache, # 9 tab, 1 Refill(s), Pharmacy: [facility], 152.4, cm, 01/15/20 15:04:00 CDT, Height, 115.455, kg, 01/15/20 15:04:00 CDT, Weight rizatriptan 2020-0 Yes 5 mg = 1 Me moria 5 MG Oral 9-15 tab, PO, l Tablet 22:44: ONCE, PRN [place] [Maxalt] 00 for migraine headache, # 9 tab, 1 Refill(s), Pharmacy: [facility], 152.4, cm, 01/15/20 [...] Medication 8-13 Soln-IV, l 15:27: IV, Once, [place] first dose 02/26/20 10:27:00 CDT, stop date [...] e 8-13 0.5 mL, l 15:20: Injection, [place] 00 IM, Once PRN for vomiting, first [...] emoria 8-13 0.5 mL, l 15:20: Injection, [place] 00 IV Push, Once PRN for shivers, [...] ia 8-13 0.5 mL, l 15:20: Injection, [place] 00 IV Push, q10min PRN for pain [...] Me moria 8-13 mL, l 15:20: Injection, [place] 00 IV Push, q15min PRN for nausea, order duration: 2 doses, first dose 02/26/20 10:20:00 CDT, stop date Limited # of times Promethazin 2020-0 No 12.5 mg = M emoria e 8-13 0.5 mL, l 15:20: Injection, [place] IM, Once PRN for vomiting, first dose [...] Me moria 8-13 mL, l 15:20: Injection, [place] 00 IV Push, q15min PRN for nausea, [...] ia 8-13 0.5 mL, l 14:50: Injection, [place] 00 IV, Once, first dose 02/26/20 9:50:00 CDT, stop date 02/26/20 9:50:00 CDT fentaNYL 2020-0 No 25 mcg = Memor ia 8-13 0.5 mL, l 14:50: Injection, [place] 00 IV, Once, first dose 02/26/20 9:50:00 CDT, stop date 02/26/20 9:50:00 CDT fentaNYL 2020-0 No 25 mcg = Memor ia 8-13 0.5 mL, l 14:50: Injection, [place] 00 IV, Once, first dose 02/26/20 9:50:00 CDT, stop date 02/26/20 9:50:00 CDT fentaNYL 2020-0 No 25 mcg = Memor ia 8-13 0.5 mL, l 14:50: Injection, [place] 00 IV, Once, first dose 02/26/20 9:50:00 CDT, stop date 02/26/20 9:50:00 CDT fentaNYL 2020-0 No 25 mcg = Memor ia 8-13 0.5 mL, l 14:50: Injection, [place] 00 IV, Once, first dose 02/26/20 9:50:00 CDT, stop date 02/26/20 9:50:00 CDT fentaNYL 2020-0 No 25 mcg = Memor ia 8-13 0.5 mL, l 14:50: Injection, [place] 00 IV, Once, first dose 02/26/20 9:50:00 CDT, stop date 02/26/20 9:50:00 CDT fentaNYL 2020-0 No 25 mcg = Memor ia 8-13 0.5 mL, l 14:16: Injection, [place] 00 IV, Once, first dose 02/26/20 9:16:00 [...] CDT ceFAZolin 2020-0 No 2 gm, Memoria 02-25 Soln-IV, l 12:53: IV Piggyback, Once, first [...] Mem oria 8-13 mL, l 12:53: Injection, [place] 00 IV, Once, first dose 02/26/20 7:53:00 CDT, stop date 02/26/20 7:53:00 CDT ceFAZolin 2020-0 No 2 gm, Memoria 8-13 Soln-IV, l 12:53: IV [place] 00 Piggyback, Once, first dose 02/26/20 7:53:00 CDT, stop date 02/26/20 7:53:00 CDT ondansetron 2020-0 No 4 mg = 2 Me moria 8-13 mL, l 12:53: Injection, [place] 00 IV, Once, first dose 02/26/20 7:53:00 CDT, stop date 02/26/20 7:53:00 CDT dexamethaso 2020-0 No 8 mg = 2 Me moria ne 8-13 mL, l 12:53: Injection, [place] 00 IV, Once, first dose 02/26/20 7:53:00 CDT, stop date 02/26/20 7:53:00 CDT ketorolac 2020-0 No 30 mg = 1 Mem oria 8-13 mL, l 12:53: Injection, [place] 00 IV, Once, first dose 02/26/20 7:53:00 CDT, stop date 02/26/20 7:53:00 CDT ceFAZolin 2020-0 No 2 gm, Memoria 8-13 Soln-IV, l 12:53: IV [place] 00 Piggyback, Once, first dose 02/26/20 7:53:00 CDT, stop date 02/26/20 7:53:00 CDT ondansetron 2020-0 No 4 mg = 2 Me moria 8-13 mL, l 12:53: Injection, [place] 00 IV, Once, first dose 02/26/20 7:53:00 CDT, stop date 02/26/20 7:53:00 CDT dexamethaso 2020-0 No 8 mg = 2 Me moria ne 8-13 mL, l 12:53: Injection, [place] 00 IV, Once, first dose 02/26/20 7:53:00 CDT, stop date 02/26/20 7:53:00 CDT ketorolac 2020-0 No 30 mg = 1 Mem oria 8-13 mL, l 12:53: Injection, [place] 00 IV, Once, first dose 02/26/20 7:53:00 CDT, stop date 02/26/20 7:53:00 CDT ceFAZolin 2020-0 No 2 gm, Memoria 8-13 Soln-IV, l 12:53: IV [place] 00 Piggyback, Once, first dose 02/26/20 7:53:00 CDT, stop date 02/26/20 7:53:00 CDT ondansetron 2020-0 No 4 mg = 2 Me moria 8-13 mL, l 12:53: Injection, [place] 00 IV, Once, first dose 02/26/20 7:53:00 CDT, stop date 02/26/20 7:53:00 CDT dexamethaso 2020-0 No 8 mg = 2 Me moria ne 8-13 mL, l 12:53: Injection, [place] 00 IV, Once, first dose 02/26/20 7:53:00 CDT, stop date 02/26/20 7:53:00 CDT ketorolac 2020-0 No 30 mg = 1 Mem oria 8-13 mL, l 12:53: Injection, [place] 00 IV, Once, first dose 02/26/20 7:53:00 CDT, stop date 02/26/20 7:53:00 CDT ceFAZolin 2020-0 No 2 gm, [place] 8-13 Soln-IV, l 12:53: IV [place] 00 Piggyback, Once, first dose 02/26/20 7:53:00 [...] Mem oria 8-13 mL, l 12:53: Injection, [place] 00 IV, Once, first dose 02/26/20 7:53:00 CDT, stop date 02/26/20 7:53:00 CDT ceFAZolin 2020-0 No 2 gm, [place] 8-13 Soln-IV, l 12:53: IV [place] 00 Piggyback, Once, first dose 02/26/20 7:53:00 [...] Mem oria 8-13 mL, l 12:53: Injection, [place] 00 IV, Once, first dose 02/26/20 7:53:00 CDT, stop date 02/26/20 7:53:00 CDT ceFAZolin 2020-0 No 2 gm, [place] 8-13 Soln-IV, l 12:53: IV [place] 00 Piggyback, Once, first dose 02/26/20 7:53:00 CDT, stop date 02/26/20 7:53:00 CDT ondansetron 2020-0 No 4 mg = 2 Me moria 8-13 mL, l 12:53: Injection, [place] 00 IV, Once, first dose 02/26/20 7:53:00 CDT, stop date 02/26/20 7:53:00 CDT dexamethaso 2020-0 No 8 mg = 2 Me moria ne 8-13 mL, l 12:53: Injection, [place] 00 IV, Once, first dose 02/26/20 7:53:00 [...] Me moria 8-13 mL, l 12:41: Injection, [place] 00 IV, Once, first dose 02/26/20 7:41:00 [...] ia 8-13 20 mL, l 12:41: Emulsion, [place] 00 IV, Once, first dose 02/26/20 7:41:00 CDT, stop date 02/26/20 7:41:00 CDT lidocaine 2020-0 No 100 mg = 5 Me moria 8-13 mL, l 12:41: Injection, [place] 00 IV, Once, first dose 02/26/20 7:41:00 CDT, stop date 02/26/20 7:41:00 CDT propofol 2020-0 No 200 mg = Memor ia 8-13 20 mL, l 12:41: Emulsion, [place] 00 IV, Once, first dose 02/26/20 7:41:00 [...] Me moria 8-13 mL, l 12:41: Injection, [place] 00 IV, Once, first dose 02/26/20 7:41:00 CDT, stop date 02/26/20 7:41:00 CDT propofol 2020-0 No 200 mg = Memor ia 8-13 20 mL, l 12:41: Emulsion, [place] 00 IV, Once, first dose 02/26/20 7:41:00 CDT, stop date 02/26/20 7:41:00 CDT fentaNYL 2020-0 No 50 mcg = 1 Mem oria 8-13 mL, l 12:35: Injection, [place] 00 IV, Once, first dose 02/26/20 7:35:00 CDT, stop date 02/26/20 7:35:00 CDT fentaNYL 2020-0 No 50 mcg = 1 Mem oria 8-13 mL, l 12:35: Injection, [place] 00 IV, Once, first dose 02/26/20 7:35:00 CDT, stop date 02/26/20 7:35:00 CDT fentaNYL 2020-0 No 50 mcg = 1 Mem oria 8-13 mL, l 12:35: Injection, [place] 00 IV, Once, first dose 02/26/20 7:35:00 CDT, stop date 02/26/20 7:35:00 CDT fentaNYL 2020-0 No 50 mcg = 1 Mem oria 8-13 mL, l 12:35: Injection, [place] 00 IV, Once, first dose 02/26/20 7:35:00 [...] Mem oria 8-13 mL, l 12:35: Injection, [place] 00 IV, Once, first dose 02/26/20 7:35:00 CDT, stop date 02/26/20 7:35:00 CDT midazolam 2020-0 No 1 mg = 1 Lev trupti 8-13 mL, l 12:34: Injection, [place] 00 IV, Once, first dose 02/26/20 7:34:00 CDT, stop date 02/26/20 7:34:00 CDT midazolam 2020-0 No 1 mg = 1 Lev trupti 8-13 mL, l 12:34: Injection, [place] 00 IV, Once, first dose 02/26/20 7:34:00 CDT, stop date 02/26/20 7:34:00 CDT midazolam 2020-0 No 1 mg = 1 Lev trutpi 8-13 mL, l 12:34: Injection, [place] 00 IV, Once, first dose 02/26/20 7:34:00 CDT, stop date 02/26/20 7:34:00 CDT midazolam 2020-0 No 1 mg = 1 Lev trupti 8-13 mL, l 12:34: Injection, [place] 00 IV, Once, first dose 02/26/20 7:34:00 CDT, stop date 02/26/20 7:34:00 CDT midazolam 2020-0 No 1 mg = 1 Lev trupti 8-13 mL, l 12:34: Injection, [place] 00 IV, Once, first dose 02/26/20 7:34:00 CDT, stop date 02/26/20 7:34:00 CDT midazolam 2020-0 No 1 mg = 1 Lev trupti 8-13 mL, l 12:34: Injection, [place] 00 IV, Once, first dose 02/26/20 7:34:00 CDT, stop date 02/26/20 7:34:00 CDT midazolam 2020-0 No 1 mg = 1 Lev trupti 8-13 mL, l 12:34: Injection, [place] 00 IV, Once, first dose 02/26/20 7:34:00 CDT, stop date 02/26/20 7:34:00 CDT midazolam 2020-0 No 1 mg = 1 Lev trupti 8-13 mL, l 12:26: Injection, [place] 00 IV, Once, first dose 02/26/20 7:26:00 [...] Lev trupti 8-13 mL, l 12:26: Injection, [place] 00 IV, Once, first dose 02/26/20 7:26:00 [...] Lev trupti 8-13 mL, l 12:26: Injection, [place] 00 IV, Once, first dose 02/26/20 7:26:00 [...] Mem oria 8-13 mL, l 12:25: Injection, [place] 00 IV, Once, first dose 02/26/20 7:25:00 CDT, stop date 02/26/20 7:25:00 CDT fentaNYL 2020-0 No 50 mcg = 1 Mem oria 8-13 mL, l 12:25: Injection, [place] 00 IV, Once, first dose 02/26/20 7:25:00 [...] Mem oria 8-13 mL, l 12:25: Injection, [place] 00 IV, Once, first dose 02/26/20 7:25:00 [...] gm, Memoria 8-13 Soln-IV, l 12:00: IV [place] 00 Piggyback, Once, infuse over 30 minutes, first dose 02/26/20 7:00:00 CDT, stop date 02/26/20 7:00:00 CDT, patient weight 50-120 kg, Prophylaxi s Cefazolin 2020-0 No 2 gm, Memoria 8-13 Soln-IV, l 12:00: IV [place] 00 Piggyback, Once, infuse over 30 minutes, first dose 02/26/20 7:00:00 CDT, stop date 02/26/20 7:00:00 CDT, patient weight 50-120 kg, Prophylaxi s Cefazolin 2020-0 No 2 gm, [place] 8-13 Soln-IV, l 12:00: IV [place] 00 Piggyback, Once, infuse over 30 minutes, [...] 02-25 Injection, l IV Start 11:28[facility] , Once PRN for other (see comment), first dose 02/26/20 6:28:00 CDT LR 1,000 mL 2020-0 No 1,000 mL, M emoria 8-13 IV, 30 l 11:28: mL/hr, start date 02/26/20 6:28:00 CDT, 2.14, m2 Lidocaine 2020-0 No 0.2 mL, Memor ia 2% 0.2 mL - Injection, l IV Start 11:28: [facility] [place] us, Once PRN for other (see comment), first dose 02/26/20 6:28:00 CDT LR 1,000 mL 2020-0 No 1,000 mL, M emoria 8-13 IV, 30 l 11:28: mL/hr, start date 02/26/20 6:28:00 CDT, 2.14, m2 Lidocaine 2020-0 No 0.2 mL, Memor ia 2% 0.2 mL 8-13 Injection, [facility] us, Once PRN for other (see comment), first dose 02/26/20 6:28:00 CDT LR 1,000 mL 2020-0 No 1,000 mL, M emoria 8-13 IV, 30 l 11:28: mL/hr, start date 02/26/20 6:28:00 CDT, 2.14, m2 Lidocaine 2020-0 No 0.2 mL, Memor ia 2% 0.2 mL - Injection, l [facility] us, Once PRN for other (see comment), first dose 02/26/20 6:28:00 CDT LR 1,000 mL 2020-0 No 1,000 mL, M emoria 8-13 IV, 30 l 11:28: mL/hr, start date 02/26/20 6:28:00 CDT, 2.14, m2 Lidocaine 2020-0 No 0.2 mL, Memor ia 2% 0.2 mL 02-25 Injection, l [facility] us, Once PRN for other (see comment), first dose 02/26/20 6:28:00 CDT LR 1,000 mL 2020-0 No 1,000 mL, M emoria 8-13 IV, 30 l 11:28: mL/hr, start date 02/26/20 6:28:00 CDT, 2.14, m2 Lidocaine 2020-0 No 0.2 mL, Memor ia 2% 0.2 mL 8- Injection, l [facility] us, Once PRN for other (see comment), first dose 02/26/20 6:28:00 CDT LR 1,000 mL 2020-0 No 1,000 mL, M emoria 8-13 IV, 30 l 11:28: mL/hr, [place] start date 02/26/20 6:28:00 CDT, 2.14, m2 Lidocaine 2020-0 No 0.2 mL, Memor ia 2% 0.2 mL 8 Injection, l IV Start 11:28: [facility] [[facility]] 00 , Once PRN for other (see comment), first dose 02/26/20 6:28:00 CDT Allergy 2020-0 Yes mg, Oral, Memor ia Relief 8-05 Daily, 0 l 17:06: Refill(s) [place] Allergy 2020-0 Yes mg, Oral, Memor ia Relief 8-05 Daily, 0 l 17:06: Refill(s) [place] Allergy 2020-0 Yes mg, Oral, Memor ia Relief 8-05 Daily, 0 l 17:06: Refill(s) [place] Allergy 2020-0 Yes mg, Oral, Memor ia Relief 8-05 Daily, 0 l 17:06: Refill(s) [place] Allergy 2020-0 Yes mg, Oral, Memor ia Relief 8-05 Daily, 0 l 17:06: Refill(s) [place] Allergy 2020-0 Yes mg, Oral, Memor ia Relief 8-05 Daily, 0 l 17:06: Refill(s) [place] Allergy 2020-0 Yes mg, Oral, Memor ia Relief 8-05 Daily, 0 l 17:06: Refill(s) Tylenol PM 2020-0 Yes Oral, qHS, M emoria 8-05 0 l 17:05: Refill(s), [place] 00 sleep /pain Tylenol PM 2020-0 Yes Oral, qHS, M emoria 8-05 0 l 17:05: Refill(s), [place] 00 sleep /pain Tylenol PM 2020-0 Yes Oral, qHS, M emoria 8-05 0 l 17:05: Refill(s), [place] 00 sleep /pain Tylenol PM 2020-0 Yes Oral, qHS, M emoria 8-05 0 l 17:05: Refill(s), [place] 00 sleep /pain Tylenol PM 2020-0 Yes Oral, qHS, M emoria 8-05 0 l 17:05: Refill(s), [place] 00 sleep /pain Tylenol PM 2020-0 Yes Oral, qHS, M emoria 8-05 0 l 17:05: Refill(s), [place] 00 sleep /pain Tylenol PM 2020-0 Yes Oral, qHS, M emoria 8-05 0 l 17:05: Refill(s), [place] 00 sleep /pain rizatriptan 2020-0 Yes 5 mg = 1 Me moria 5 mg oral 8-05 tabs, l tablet 17:04: Oral, [place] 00 Daily, 0 Refill(s) pantoprazol 2020-0 Yes 40 mg = 1 M emoria e 40 mg 8-05 tabs, l oral 17:04: Oral, [place] delayed 00 Daily, 0 release Refill(s), tablet GERD meloxicam 2020-0 Yes 7.5 mg = 1 Me moria 7.5 MG Oral 8-05 tabs, l Tablet 17:04: Oral, [place] 00 Daily, 0 Refill(s), joint pain amitriptyli 2020-0 Yes 75 mg = 1 M emoria ne 75 mg 8-05 tabs, l oral tablet 17:04: Oral, qHS, [place] 00 0 Refill(s), sleep levothyroxi 2020-0 Yes [...] oral 8-05 tabs, l tablet 17:04: Oral, [place] 00 Daily, 0 Refill(s) pantoprazol 2020-0 Yes 40 mg = 1 M emoria e 40 mg 8-05 tabs, l oral 17:04: Oral, [place] delayed 00 Daily, 0 release Refill(s), tablet GERD meloxicam 2020-0 Yes 7.5 mg = 1 Me moria 7.5 MG Oral 8-05 tabs, l Tablet 17:04: Oral, [place] 00 Daily, 0 Refill(s), joint pain amitriptyli 2020-0 Yes 75 mg = 1 M emoria ne 75 mg 8-05 tabs, l oral tablet 17:04: Oral, [facility], [place] 00 0 Refill(s), sleep levothyroxi 2020-0 Yes [...] tabs, l oral tablet 17:04: Oral, [facility], [place] 00 0 Refill(s), sleep levothyroxi 2020-0 Yes 25 mcg = 1 Memoria ne 25 mcg 8-05 tabs, l (0.025 mg) 17:04: Oral, [place] oral tablet 00 Daily, 0 Refill(s), hypothyroi d rizatriptan 2020-0 Yes 5 mg = 1 Me moria 5 mg oral 8-05 tabs, l tablet 17:04: Oral, [place] 00 Daily, 0 Refill(s) pantoprazol 2020-0 Yes 40 mg = 1 M emoria e 40 mg 8-05 tabs, l oral 17:04: Oral, [place] delayed 00 Daily, 0 release Refill(s), tablet GERD meloxicam 2020-0 Yes 7.5 mg = 1 Me moria 7.5 MG Oral 8-05 tabs, l Tablet 17:04: Oral, [place] 00 Daily, 0 Refill(s), joint pain amitriptyli 2020-0 Yes 75 mg = 1 M emoria ne 75 mg 8-05 tabs, l oral tablet 17:04: Oral, qHS, [place] 00 0 Refill(s), sleep levothyroxi 2020-0 Yes [...] Oral 8-05 tabs, l Tablet 17:04: Oral, [place] 00 Daily, 0 Refill(s), joint pain amitriptyli 2020-0 Yes 75 mg = 1 M emoria ne 75 mg 8-05 tabs, l oral tablet 17:04: Oral, [facility], [place] 00 0 Refill(s), sleep levothyroxi 2020-0 Yes [...] mg 8-05 tabs, l oral 17:04: Oral, [place] delayed 00 Daily, 0 release Refill(s), tablet GERD meloxicam 2020-0 Yes 7.5 mg = 1 Me moria 7.5 MG Oral 05 tabs, l Tablet 17:04: Oral, [place] 00 [...] [place] 00 30 ea, 5 Refill(s), Pharmacy: [facility], 152.4, cm, 01/15/20 15:04:00 CDT, Height, 115.455, kg, 01/15/20 15:04:00 CDT, Weight rizatriptan 2020-0 Yes 5 mg = 1 Me moria 5 MG Oral 7-02 tab, PO, l Tablet 20:24: ONCE, PRN [place] n [Maxalt] 00 for migraine headache, # 9 tab, 1 Refill(s), Pharmacy: [facility], 152.4, cm, 01/15/20 15:04:00 CDT, Height, 115.455, kg, 01/15/20 15:04:00 CDT, Weight amitriptyli 2020-0 Yes = 1 tab, Me moria ne 75 mg 7-02 PO, l oral tablet 20:24: Bedtime, # [place] 00 30 ea, 5 Refill(s), Pharmacy: [facility], 152.4, cm, 01/15/20 15:04:00 CDT, Height, 115.455, kg, 01/15/20 15:04:00 CDT, Weight rizatriptan 2020-0 Yes 5 mg = 1 Me moria 5 MG Oral 7-02 tab, PO, l Tablet 20:24: ONCE, PRN [place] [Maxalt] 00 for migraine headache, # 9 tab, 1 Refill(s), Pharmacy: [facility], 152.4, cm, 01/15/20 15:04:00 CDT, Height, 115.455, kg, 01/15/20 15:04:00 CDT, Weight amitriptyli 2020-0 Yes = 1 tab, Me moria ne 75 mg 7-02 PO, l oral tablet 20:24: Bedtime, # [place] 00 30 ea, 5 Refill(s), Pharmacy: [facility], 152.4, cm, 01/15/20 15:04:00 CDT, Height, 115.455, kg, 01/15/20 15:04:00 CDT, Weight rizatriptan 2020-0 Yes 5 mg = 1 Me moria 5 MG Oral 7-02 tab, PO, l Tablet 20:24: ONCE, PRN [place] [Maxalt] 00 for migraine headache, # 9 tab, 1 Refill(s), Pharmacy: [facility], 152.4, cm, 01/15/20 15:04:00 CDT, Height, 115.455, kg, 01/15/20 15:04:00 CDT, Weight amitriptyli 2020-0 Yes = 1 tab, Me moria ne 75 mg 7-02 PO, l oral tablet 20:24: Bedtime, # [place] 00 30 ea, 5 Refill(s), Pharmacy: [facility], 152.4, cm, 01/15/20 15:04:00 CDT, Height, 115.455, kg, 01/15/20 15:04:00 CDT, Weight rizatriptan 2020-0 Yes 5 mg = 1 Me moria 5 MG Oral 7-02 tab, PO, l Tablet 20:24: ONCE, PRN Burak n [Maxalt] 00 for migraine headache, # 9 tab, 1 Refill(s), Pharmacy: [facility], 152.4, cm, 01/15/20 15:04:00 CDT, Height, 115.455, kg, 01/15/20 15:04:00 CDT, Weight amitriptyli 2020-0 Yes = 1 tab, Me moria ne 75 mg 7-02 PO, l oral tablet 20:24: Bedtime, # [place] 00 30 ea, 5 Refill(s), Pharmacy: [facility], 152.4, cm, 01/15/20 15:04:00 CDT, Height, 115.455, kg, 01/15/20 15:04:00 CDT, Weight rizatriptan 2020-0 Yes 5 mg = 1 Me moria 5 MG Oral 7-02 tab, PO, l Tablet 20:24: ONCE, PRN [place]ak n [Maxalt] 00 for migraine headache, # 9 tab, 1 Refill(s), Pharmacy: [facility], 152.4, cm, 01/15/20 15:04:00 CDT, Height, 115.455, kg, 01/15/20 15:04:00 CDT, Weight amitriptyli 2020-0 Yes = 1 tab, Me moria ne 75 mg 7-02 PO, l oral tablet 20:24: Bedtime, # [place] 00 30 ea, 5 Refill(s), Pharmacy: [facility], 152.4, cm, 01/15/20 15:04:00 CDT, Height, 115.455, kg, 01/15/20 15:04:00 CDT, Weight rizatriptan 2020-0 Yes 5 mg = 1 Me moria 5 MG Oral 7-02 tab, PO, l Tablet 20:24: ONCE, PRN [place]ak n [Maxalt] 00 for migraine headache, # 9 tab, 1 Refill(s), Pharmacy: [facility], 152.4, cm, 01/15/20 15:04:00 CDT, Height, 115.455, kg, 01/15/20 15:04:00 CDT, Weight amitriptyli 2020-0 Yes = 1 tab, Me moria ne 75 mg 7-02 PO, l oral tablet 20:24: Bedtime, # [place] 00 30 ea, 5 Refill(s), Pharmacy: [facility], 152.4, cm, 01/15/20 15:04:00 CDT, Height, 115.455, kg, 01/15/20 15:04:00 CDT, Weight rizatriptan 2020-0 Yes 5 mg = 1 Me moria 5 MG Oral 7-02 tab, PO, l Tablet 20:24: ONCE, PRN [place] n [Maxalt] 00 for migraine headache, # 9 tab, 1 Refill(s), Pharmacy: [facility], 152.4, cm, 01/15/20 15:04:00 CDT, Height, 115.455, kg, 01/15/20 15:04:00 CDT, Weight rizatriptan 2020-0 Yes 5 mg = 1 Me moria 5 MG Oral 5-19 tab, PO, l Tablet 21:06: ONCE, PRN [place]ak n [Maxalt] 00 for migraine headache, # 9 tab, 1 Refill(s), Pharmacy: [facility] amitriptyli 2020-0 Yes = 1 tab, Me moria ne 75 mg 5-19 PO, l oral tablet 21:06: Bedtime, # [place] 00 30 ea, 1 Refill(s), Pharmacy: [facility] rizatriptan 2020-0 Yes 5 mg = 1 Me moria 5 MG Oral 5-19 tab, PO, l Tablet 21:06: ONCE, PRN [place]ak n [Maxalt] 00 for migraine headache, # 9 tab, 1 Refill(s), Pharmacy: [facility] amitriptyli 2020-0 Yes = 1 tab, Me moria ne 75 mg 5-19 PO, l oral tablet 21:06: Bedtime, # [place] 00 30 ea, 1 Refill(s), Pharmacy: [facility] rizatriptan 2020-0 Yes 5 mg = 1 Me moria 5 MG Oral 5-19 tab, PO, l Tablet 21:06: ONCE, PRN [place] n [Maxalt] 00 for migraine headache, # 9 tab, 1 Refill(s), Pharmacy: [facility] amitriptyli 2020-0 Yes = 1 tab, Me moria ne 75 mg 5-19 PO, l oral tablet 21:06: Bedtime, # [place] 00 30 ea, 1 Refill(s), Pharmacy: [facility] rizatriptan 2020-0 Yes 5 mg = 1 Me moria 5 MG Oral 5-19 tab, PO, l Tablet 21:06: ONCE, PRN [place]ak n [Maxalt] 00 for migraine headache, # 9 tab, 1 Refill(s), Pharmacy: [facility] amitriptyli 2020-0 Yes = 1 tab, Me moria ne 75 mg 5-19 PO, l oral tablet 21:06: Bedtime, # [place] 30 ea, 1 Refill(s), Pharmacy: [facility] rizatriptan 2020-0 Yes 5 mg = 1 Me moria 5 MG Oral 5-19 tab, PO, l Tablet 21:06: ONCE, PRN [place]ak n [Maxalt] 00 for migraine headache, # 9 tab, 1 Refill(s), Pharmacy: [facility] amitriptyli 2020-0 Yes = 1 tab, Me moria ne 75 mg 5-19 PO, l oral tablet 21:06: Bedtime, # [place] 00 30 ea, 1 Refill(s), Pharmacy: [facility] rizatriptan 2020-0 Yes 5 mg = 1 Me moria 5 MG Oral 5-19 tab, PO, l Tablet 21:06: ONCE, PRN [place]ak n [Maxalt] 00 for migraine headache, # 9 tab, 1 Refill(s), Pharmacy: [facility] amitriptyli 2020-0 Yes = 1 tab, Me moria ne 75 mg 5-19 PO, l oral tablet 21:06: Bedtime, # [place] 00 30 ea, 1 Refill(s), Pharmacy: [facility] amitriptyli 2020-0 Yes = 1 tab, Me moria ne 75 mg 5-19 PO, l oral tablet 21:06: Bedtime, # [place] 00 30 ea, 1 Refill(s), Pharmacy: [facility] rizatriptan 2019-0 Yes 5 mg = 1 Me moria 5 MG Oral 5-19 tab, PO, l Tablet 21:06: ONCE, PRN [place]ak n [Maxalt] 00 for migraine headache, # 9 tab, 1 Refill(s), Pharmacy: [facility]08 loratadine Yes loratadine M [...] l TABLET BY MOUTH ONCE DAILY loratadine 2019-0 Yes loratadine M ethodi (CLARITIN) 9-[address] 10 mg 00:00: tablet [facility] tablet 00 TAKE 1 l TABLET BY MOUTH ONCE DAILY sod Yes [id number] 1{bottl Use 1 Unive rs chlor-bicar 9-08 e} Bottle in ity of b-squeez 00:00: each [place] bottle 00 nostril 2 Medical (NEILMED (two) Branch SINUS RINSE times COMPLETE) daily. Use pkdv in hot shower 1 hour before bedtime loratadine Yes [id number] 10mg Take 1 U nivers 10 mg 9-08 tablet by ity of tablet 00:00: mouth [place] 00 daily. Medical Branch sod Yes [id number] 1{bottl Use 1 Unive rs chlor-bicar 9-08 e} Bottle in ity of b-squeez 00:00: each [place] bottle 00 nostril 2 Medical (NEILMED (two) Branch SINUS RINSE times COMPLETE) daily. Use pkdv in hot shower 1 hour before bedtime loratadine Yes [id number] 10mg Take 1 U nivers 10 mg 9-08 tablet by ity of tablet 00:00: mouth [place] 00 daily. Medical Branch sod Yes [id number] 1{bottl Use 1 Unive rs chlor-bicar 9-08 e} Bottle in ity of b-squeez 00:00: each [place] bottle 00 nostril 2 Medical (NEILMED (two) Branch SINUS RINSE times COMPLETE) daily. Use pkdv in hot shower 1 hour before bedtime loratadine Yes [id number] 10mg Take 1 U nivers 10 mg 9-08 tablet by ity of tablet 00:00: mouth [place] 00 daily. Medical Branch sod Yes [id number] 1{bottl Use 1 Unive rs chlor-bicar 9-08 e} Bottle in ity of b-squeez 00:00: each [place] bottle 00 nostril 2 Medical (NEILMED (two) Branch SINUS RINSE times COMPLETE) daily. Use pkdv in hot shower 1 hour before bedtime loratadine Yes [id number] 10mg Take 1 U nivers 10 mg 9-08 tablet by ity of tablet 00:00: mouth [place] 00 daily. Medical Branch amitriptyli 2019-0 Yes 75 mg = 1 M emoria ne 75 mg 8-22 tab, PO, l oral tablet 18:27: Bedtime, # [place] 00 30 tab, 1 Refill(s), Pharmacy: [facility] 80 amitriptyli 2019-0 Yes 75 mg = 1 M emoria ne 75 mg 8-22 tab, PO, l oral tablet 18:27: Bedtime, # [place] 00 30 tab, 1 Refill(s), Pharmacy: [facility] amitriptyli 2019-0 Yes 75 mg = 1 M emoria ne 75 mg 8-22 tab, PO, l oral tablet 18:27: Bedtime, # [place] 00 30 tab, 1 Refill(s), Pharmacy: [facility] amitriptyli 2019-0 Yes 75 mg = 1 M emoria ne 75 mg 8-22 tab, PO, l oral tablet 18:27: Bedtime, # [place] 00 30 tab, 1 Refill(s), Pharmacy: [facility] amitriptyli 2019-0 Yes 75 mg = 1 M emoria ne 75 mg 8-22 tab, PO, l oral tablet 18:27: Bedtime, # [place] 00 30 tab, 1 Refill(s), Pharmacy: [facility] amitriptyli 2019-0 Yes 75 mg = 1 M emoria ne 75 mg 8-22 tab, PO, l oral tablet 18:27: Bedtime, # [place] 00 30 tab, 1 Refill(s), Pharmacy: [facility] amitriptyli 2019-0 Yes 75 mg = 1 M emoria ne 75 mg 8-22 tab, PO, l oral tablet 18:27: Bedtime, # [place] 00 30 tab, 1 Refill(s), Pharmacy: [facility] rizatriptan 2019-0 Yes 5 mg = 1 Me moria 5 MG Oral 8-02 tab, PO, l Tablet 20:24: ONCE, PRN [place]ak n [Maxalt] 09 for migraine headache, # 9 tab, 1 Refill(s), Pharmacy: [facility] rizatriptan 2019-0 Yes 5 mg = 1 Me moria 5 MG Oral 8-02 tab, PO, l Tablet 20:24: ONCE, PRN [place]ak n [Maxalt] 09 for migraine headache, # 9 tab, 1 Refill(s), Pharmacy: [facility] rizatriptan 2019-0 Yes 5 mg = 1 Me moria 5 MG Oral 8-02 tab, PO, l Tablet 20:24: ONCE, PRN [place] n [Maxalt] 09 for migraine headache, # 9 tab, 1 Refill(s), Pharmacy: [facility] rizatriptan 2019-0 Yes 5 mg = 1 Me moria 5 MG Oral 8-02 tab, PO, l Tablet 20:24: ONCE, PRN [place] n [Maxalt] 09 for migraine headache, # 9 tab, 1 Refill(s), Pharmacy: [facility] rizatriptan 2019-0 Yes 5 mg = 1 Me moria 5 MG Oral 8-02 tab, PO, l Tablet 20:24: ONCE, PRN [place] n [Maxalt] 09 for migraine headache, # 9 tab, 1 Refill(s), Pharmacy: [facility] rizatriptan 2019-0 Yes 5 mg = 1 Me moria 5 MG Oral 8-02 tab, PO, l Tablet 20:24: ONCE, PRN [place] n [Maxalt] 09 for migraine headache, # 9 tab, 1 Refill(s), Pharmacy: [facility] rizatriptan 2019-0 Yes 5 mg = 1 Me moria 5 MG Oral 8-02 tab, PO, l Tablet 20:24: ONCE, PRN [place]ak n [Maxalt] 09 for migraine headache, # 9 tab, 1 Refill(s), Pharmacy: [facility] thiamine 2019-0 Yes 100 mg = 1 Mem oria 100 mg oral 8-02 tab, PO, l tablet 20:23: Daily, X [place] 17 30 day, # 30 tab, 3 Refill(s), Pharmacy: [facility] thiamine 2019-0 Yes 100 mg = 1 Mem oria 100 mg oral 8-02 tab, PO, l tablet 20:23: Daily, X [place] 17 30 day, # 30 tab, 3 Refill(s), Pharmacy: [place] [address] thiamine 2019-0 Yes 100 mg = 1 Mem oria 100 mg oral 8-02 tab, PO, l tablet 20:23: Daily, X [place] 17 30 day, # 30 tab, 3 Refill(s), Pharmacy: [place] [address] thiamine Yes 100 mg = 1 Mem oria 100 mg oral 8-02 tab, PO, l tablet 20:23: Daily, X [place] 17 30 day, # 30 tab, 3 Refill(s), Pharmacy: [place] [address] thiamine Yes 100 mg = 1 Mem oria 100 mg oral 8-02 tab, PO, l tablet 20:23: Daily, X [place] 17 30 day, # 30 tab, 3 Refill(s), Pharmacy: [place] [address] thiamine Yes 100 mg = 1 Mem oria 100 mg oral 8-02 tab, PO, l tablet 20:23: Daily, X [place] 17 30 day, # 30 tab, 3 Refill(s), Pharmacy: [place] [address] thiamine Yes 100 mg = 1 Mem oria 100 mg oral 8-02 tab, PO, l tablet 20:23: Daily, X [place] 17 30 day, # 30 tab, 3 Refill(s), Pharmacy: [place] [address] cyanocobala Yes 1,000 Memor ia min 1000 8-02 microgram l mcg 20:23: = 1 tab, [place] sublingual 13 SL, Daily, tablet # 30 tab, 2 Refill(s), Pharmacy: [facility] cyanocobala Yes 1,000 Memor ia min 1000 8-02 microgram l mcg 20:23: = 1 tab, [place] sublingual 13 SL, Daily, tablet # 30 tab, 2 Refill(s), Pharmacy: [facility] cyanocobala Yes 1,000 Memor ia min 1000 8-02 microgram l mcg 20:23: = 1 tab, [place] sublingual 13 SL, Daily, tablet # 30 tab, 2 Refill(s), Pharmacy: [facility] cyanocobala Yes 1,000 Memor ia min 1000 8-02 microgram l mcg 20:23: = 1 tab, [place] sublingual 13 SL, Daily, tablet # 30 tab, 2 Refill(s), Pharmacy: [facility] cyanocobala Yes 1,000 Memor ia min 1000 8-02 microgram l mcg 20:23: = 1 tab, [place] sublingual 13 SL, Daily, tablet # 30 tab, 2 Refill(s), Pharmacy: [facility] cyanocobala Yes 1,000 Memor ia min 1000 8-02 microgram l mcg 20:23: = 1 tab, [place] sublingual 13 SL, Daily, tablet # 30 tab, 2 Refill(s), Pharmacy: [facility] cyanocobala Yes 1,000 Memor ia min 1000 8-02 microgram l mcg 20:23: = 1 tab, [place] sublingual 13 SL, Daily, tablet # 30 tab, 2 Refill(s), Pharmacy: [place] [address] amitriptyli Yes 50 mg = 1 M emoria ne 50 mg 8-02 tab, PO, l oral tablet 20:23: Bedtime, # [place] 09 30 tab, 1 Refill(s), Pharmacy: [place] [address] amitriptyli Yes 50 mg = 1 M emoria ne 50 mg 8-02 tab, PO, l oral tablet 20:23: Bedtime, # [place] 09 30 tab, 1 Refill(s), Pharmacy: [place] [address] amitriptyli Yes 50 mg = 1 M emoria ne 50 mg 8-02 tab, PO, l oral tablet 20:23: Bedtime, # [place] 09 30 tab, 1 Refill(s), Pharmacy: [place] [address] amitriptyli Yes 50 mg = 1 M emoria ne 50 mg 8-02 tab, PO, l oral tablet 20:23: Bedtime, # [place] 09 30 tab, 1 Refill(s), Pharmacy: [place] [address] amitriptyli Yes 50 mg = 1 M emoria ne 50 mg 8-02 tab, PO, l oral tablet 20:23: Bedtime, # [place] 09 30 tab, 1 Refill(s), Pharmacy: [place] [address] amitriptyli 2019-0 Yes 50 mg = 1 M emoria ne 50 mg 8-02 tab, PO, l oral tablet 20:23: Bedtime, # [place] 09 30 tab, 1 Refill(s), Pharmacy: [facility] amitriptyli Yes 50 mg = 1 M emoria ne 50 mg 8-02 tab, PO, l oral tablet 20:23: Bedtime, # [place] 09 30 tab, 1 Refill(s), Pharmacy: [facility]08 rizatriptan Yes rizatripta Methodi [...] day, # 6 tab, 1 Refill(s), Pharmacy: [facility] amitriptyli No 50 mg = 1 M emoria ne 50 mg 7-13 tab, PO, l oral tablet 01:53: Bedtime, # [place] 00 30 tab, 1 Refill(s), Pharmacy: [facility] rizatriptan 2018-0 No 5 mg = 1 Me moria 5 MG Oral 7-13 tab, PO, l Tablet 01:53: Daily, PRN [place] nn [Maxalt] 00 for migraine headache, X 6 day, # 6 tab, 1 Refill(s), Pharmacy: [facility] amitriptyli No 50 mg = 1 M emoria ne 50 mg 7-13 tab, PO, l oral tablet 01:53: Bedtime, # [place] 00 30 tab, 1 Refill(s), Pharmacy: [facility] rizatriptan 2018-0 No 5 mg = 1 Me moria 5 MG Oral 7-13 tab, PO, l Tablet 01:53: Daily, PRN [place] nn [Maxalt] 00 for migraine headache, X 6 day, # 6 tab, 1 Refill(s), Pharmacy: [facility] amitriptyli No 50 mg = 1 M emoria ne 50 mg 7-13 tab, PO, l oral tablet 01:53: Bedtime, # [place] 00 30 tab, 1 Refill(s), Pharmacy: [facility] 80 rizatriptan 2019-0 No 5 mg = 1 Me moria 5 MG Oral 7-13 tab, PO, l Tablet 01:53: Daily, PRN [place] nn [Maxalt] 00 for migraine headache, X 6 day, # 6 tab, 1 Refill(s), Pharmacy: [facility] amitriptyli 2019-0 No 50 mg = 1 M emoria ne 50 mg 7-13 tab, PO, l oral tablet 01:53: Bedtime, # [place] 00 30 tab, 1 Refill(s), Pharmacy: [facility] rizatriptan 2019-0 No 5 mg = 1 Me moria 5 MG Oral 7-13 tab, PO, l Tablet 01:53: Daily, PRN [place] nn [Maxalt] 00 for migraine headache, X 6 day, # 6 tab, 1 Refill(s), Pharmacy: [facility] amitriptyli 2019-0 No 50 mg = 1 M emoria ne 50 mg 7-13 tab, PO, l oral tablet 01:53: Bedtime, # [place] 00 30 tab, 1 Refill(s), Pharmacy: [facility] rizatriptan 2019-0 No 5 mg = 1 Me moria 5 MG Oral 7-13 tab, PO, l Tablet 01:53: Daily, PRN [place] nn [Maxalt] 00 for migraine headache, X 6 day, # 6 tab, 1 Refill(s), Pharmacy: [facility] amitriptyli 2019-0 No 50 mg = 1 M emoria ne 50 mg 7-13 tab, PO, l oral tablet 01:53: Bedtime, # [place] 00 30 tab, 1 Refill(s), Pharmacy: [facility] rizatriptan 2019-0 No 5 mg = 1 Me moria 5 MG Oral 7-13 tab, PO, l Tablet 01:53: Daily, PRN [place] nn [Maxalt] 00 for migraine headache, X 6 day, # 6 tab, 1 Refill(s), Pharmacy: [facility] amitriptyli 2019-0 No 50 mg = 1 Raeann diaz ne 50 mg 7-13 tab, PO, l oral tablet 01:53: Bedtime, # [place] 00 30 tab, 1 Refill(s), Pharmacy: [facility] frovatripta 2018- No 2.5 mg = 1 Memoria n 2.5 mg 6-27 tab, PO, l oral tablet 15:37: Daily, PRN [place] 00 for migraine headache, May repeat another dose at least 2 hours after the first dose, X 3 day, # 9 tab, 2 Refill(s), Pharmacy: [place] [address] frovatripta 2018- No 2.5 mg = 1 Memoria n 2.5 mg 6-27 tab, PO, l oral tablet 15:37: Daily, PRN [place] 00 for migraine headache, May repeat another dose at least 2 hours after the first dose, X 3 day, # 9 tab, 2 Refill(s), [address]- No 2.5 mg = 1 Memoria n 2.5 mg 6-27 tab, PO, l oral tablet 15:37: Daily, PRN [place] 00 for migraine headache, May repeat another dose at least 2 hours after the first dose, X 3 day, # 9 tab, 2 Refill(s), Pharmacy: [place] [address] frovatripta 2018- No 2.5 mg = 1 Memoria n 2.5 mg 6-27 tab, PO, l oral tablet 15:37: Daily, PRN [place] 00 for migraine headache, May repeat another dose at least 2 hours after the first dose, X 3 day, # 9 tab, 2 Refill(s), Pharmacy: [facility] frovatripta 2018- No 2.5 mg = 1 Memoria n 2.5 mg 6-27 tab, PO, l oral tablet 15:37: Daily, PRN [place] 00 for migraine headache, May repeat another dose at least 2 hours after the first dose, X 3 day, # 9 tab, 2 Refill(s), Pharmacy: [place] [address] frovatripta 2018- No 2.5 mg = 1 Memoria n 2.5 mg 6-27 tab, PO, l oral tablet 15:37: Daily, PRN [place] 00 for migraine headache, May repeat another dose at least 2 hours after the first dose, X 3 day, # 9 tab, 2 Refill(s), Pharmacy: [facility] frovatripta No 2.5 mg = 1 Memoria n 2.5 mg 6-27 tab, PO, l oral tablet 15:37: Daily, PRN [place] 00 for migraine headache, May repeat another dose at least 2 hours after the first dose, X 3 day, # 9 tab, 2 Refill(s), Pharmacy: [facility] eletriptan No See Memoria 40 MG Oral 6-25 Instructio l Tablet 23:35: ns, PO, [place] [Relpax] 00 Take 1-2 tabs orally at onset of migraine, may repeat dose once in 2 hours, X 3 day, # 6 tab, 1 Refill(s), Pharmacy: [facility] eletriptan No See Memoria 40 MG Oral 6-25 Instructio l Tablet 23:35: ns, PO, [place] [Relpax] 00 Take 1-2 tabs orally at onset of migraine, may repeat dose once in 2 hours, X 3 day, # 6 tab, 1 Refill(s), Pharmacy: [facility] eletriptan No See Memoria 40 MG Oral 6-25 Instructio l Tablet 23:35: ns, PO, [place] [Relpax] 00 Take 1-2 tabs orally at onset of migraine, may repeat dose once in 2 hours, X 3 day, # 6 tab, 1 Refill(s), Pharmacy: [facility] eletriptan No See Memoria 40 MG Oral 6-25 Instructio l Tablet 23:35: ns, PO, [place] [Relpax] 00 Take 1-2 tabs orally at onset of migraine, may repeat dose once in 2 hours, X 3 day, # 6 tab, 1 Refill(s), Pharmacy: [facility] eletriptan No See Memoria 40 MG Oral 6-25 Instructio l Tablet 23:35: ns, PO, [place] [Relpax] 00 Take 1-2 tabs orally at onset of migraine, may repeat dose once in 2 hours, X 3 day, # 6 tab, 1 Refill(s), Pharmacy: [facility] eletriptan No See Memoria 40 MG Oral 6-25 Instructio l Tablet 23:35: ns, PO, [place] [Relpax] 00 Take 1-2 tabs orally at onset of migraine, may repeat dose once in 2 hours, X 3 day, # 6 tab, 1 Refill(s), Pharmacy: [facility] eletriptan No See Memoria 40 MG Oral 6-25 Instructio l Tablet 23:35: ns, PO, [place] [Relpax] 00 Take 1-2 tabs orally at onset of migraine, may repeat dose once in 2 hours, X 3 day, # 6 tab, 1 Refill(s), Pharmacy: [facility] amitriptyli Yes 25 mg = 1 M emoria ne 25 mg 6-11 tab, PO, l oral tablet 21:16: Bedtime, # [place] 00 30 tab, 3 Refill(s), Pharmacy: [facility] amitriptyli Yes 25 mg = 1 M emoria ne 25 mg 6-11 tab, PO, l oral tablet 21:16: Bedtime, # [place] 00 30 tab, 3 Refill(s), Pharmacy: [facility] amitriptyli Yes 25 mg = 1 M emoria ne 25 mg 6-11 tab, PO, l oral tablet 21:16: Bedtime, # [place] 00 30 tab, 3 Refill(s), Pharmacy: [facility] amitriptyli Yes 25 mg = 1 M emoria ne 25 mg 6-11 tab, PO, l oral tablet 21:16: Bedtime, # [place] 00 30 tab, 3 Refill(s), Pharmacy: [facility] amitriptyli Yes 25 mg = 1 M emoria ne 25 mg 6-11 tab, PO, l oral tablet 21:16: Bedtime, # [place] 00 30 tab, 3 Refill(s), Pharmacy: [facility] amitriptyli Yes 25 mg = 1 M emoria ne 25 mg 6-11 tab, PO, l oral tablet 21:16: Bedtime, # [place] 00 30 tab, 3 Refill(s), Pharmacy: [facility] amitriptyli Yes 25 mg = 1 M emoria ne 25 mg 6-11 tab, PO, l oral tablet 21:16: Bedtime, # [place] 00 30 tab, 3 Refill(s), Pharmacy: [facility] cyanomdbala Yes 1,000 Memor ia min 1000 6-07 microgram l mcg 19:39: = 1 tab, [place] sublingual 00 SL, Daily, tablet # 30 tab, 2 Refill(s), Pharmacy: [facility] Yes 1,000 Memor ia min 1000 6-07 microgram l mcg 19:39: = 1 tab, [place] sublingual 00 SL, Daily, tablet # 30 tab, 2 Refill(s), Pharmacy: [facility] cyanocobala Yes 1,000 Memor ia min 1000 6-07 microgram l mcg 19:39: = 1 tab, [place] sublingual 00 SL, Daily, tablet # 30 tab, 2 Refill(s), Pharmacy: [place] [address] cyanocobal Yes 1,000 Memor ia min 1000 6-07 microgram l mcg 19:39: = 1 tab, [place] sublingual 00 SL, Daily, tablet # 30 tab, 2 Refill(s), Pharmacy: [facility] cyanocobala Yes 1,000 Memor ia min 1000 6-07 microgram l mcg 19:39: = 1 tab, [place] sublingual 00 SL, Daily, tablet # 30 tab, 2 Refill(s), Pharmacy: [facility] cyanocobala Yes 1,000 Memor ia min 1000 6-07 microgram l mcg 19:39: = 1 tab, [place] sublingual 00 SL, Daily, tablet # 30 tab, 2 Refill(s), Pharmacy: [facility] cyanocobal Yes 1,000 Memor ia min 1000 6-07 microgram l mcg 19:39: = 1 tab, [place] sublingual 00 SL, Daily, tablet # 30 tab, 2 Refill(s), Pharmacy: [place] [address] thiamine 2019-0 Yes 100 mg = 1 Mem oria 100 mg oral 5-17 tab, PO, l tablet 18:13: Daily, X [place] 30 day, # 30 tab, 3 Refill(s), Pharmacy: [facility] thiamine 2019-0 Yes 100 mg = 1 Mem oria 100 mg oral 5-17 tab, PO, l tablet 18:13: Daily, X [place] 30 day, # 30 tab, 3 Refill(s), Pharmacy: [place] [address] thiamine 2019-0 Yes 100 mg = 1 Mem oria 100 mg oral 5-17 tab, PO, l tablet 18:13: Daily, X [place] 30 day, # 30 tab, 3 Refill(s), Pharmacy: [place] [address] thiamine 2019-0 Yes 100 mg = 1 Mem oria 100 mg oral 5-17 tab, PO, l tablet 18:13: Daily, X [place] 30 day, # 30 tab, 3 Refill(s), Pharmacy: [place] [address] thiamine 2019-0 Yes 100 mg = 1 Mem oria 100 mg oral 5-17 tab, PO, l tablet 18:13: Daily, X [place] 30 day, # 30 tab, 3 Refill(s), Pharmacy: [facility] thiamine 2019-0 Yes 100 mg = 1 Mem oria 100 mg oral 5-17 tab, PO, l tablet 18:13: Daily, X [place] 30 day, # 30 tab, 3 Refill(s), Pharmacy: [facility] thiamine 2019-0 Yes 100 mg = 1 Mem oria 100 mg oral 5-17 tab, PO, l tablet 18:13: Daily, X [place] 00 30 day, # 30 tab, 3 Refill(s), Pharmacy: [facility] amitriptyli 2019-0 Yes 10 mg = 1 M emoria ne 10 mg 5-10 tab, PO, l oral tablet 20:44: Bedtime, # [place] 00 30 tab, 3 Refill(s), Pharmacy: [facility] amitriptyli 2019-0 Yes 10 mg = 1 M emoria ne 10 mg 5-10 tab, PO, l oral tablet 20:44: Bedtime, # [place] 00 30 tab, 3 Refill(s), Pharmacy: [facility] amitriptyli 2019- Yes 10 mg = 1 M emoria ne 10 mg 5-10 tab, PO, l oral tablet 20:44: Bedtime, # [place] 00 30 tab, 3 Refill(s), Pharmacy: [facility] amitriptyli Yes 10 mg = 1 M emoria ne 10 mg 5-10 tab, PO, l oral tablet 20:44: Bedtime, # [place] 00 30 tab, 3 Refill(s), Pharmacy: [facility] amitriptyli Yes 10 mg = 1 M emoria ne 10 mg 5-10 tab, PO, l oral tablet 20:44: Bedtime, # [place] 00 30 tab, 3 Refill(s), Pharmacy: [facility] amitriptyli Yes 10 mg = 1 M emoria ne 10 mg 5-10 tab, PO, l oral tablet 20:44: Bedtime, # [place] 00 30 tab, 3 Refill(s), Pharmacy: [facility] amitriptyli Yes 10 mg = 1 M emoria ne 10 mg 5-10 tab, PO, l oral tablet 20:44: Bedtime, # [place] 00 30 tab, 3 Refill(s), Pharmacy: [facility] gabapentin Yes 300 mg = 1 M [...] Daily, # 30 tab, 0 Refill(s) escitalopra Yes [...] Daily, # 30 tab, 0 Refill(s) escitalopra Yes 20 mg = 1 M emoria m 20 mg 5-10 tab, PO, l oral tablet 20:28: Daily, # [place] 00 30 tab, 0 Refill(s) gabapentin Yes 300 mg = 1 M emoria 300 mg oral 5-10 cap, PO, l capsule 20:28: BID, # 90 Antonia nn 00 cap, 1 Refill(s) gabapentin Yes 300 mg = 1 M [...] Daily, # 30 tab, 0 Refill(s) escitalopra Yes 20 mg = 1 M emoria m 20 mg 5-10 tab, PO, l oral tablet 20:28: Daily, # [place] 00 30 tab, 0 Refill(s) gabapentin Yes 300 mg = 1 M [...] tablet # 30 tab, 0 Refill(s) levothyroxi 2017-0 Yes 50ug Take 1 Univ ers ne 50 mcg 4-30 tablet by ity o f tablet 00:00: mouth [place] 00 every Medical morning. Branch levothyroxi 2017-0 Yes 50ug Take 1 Univ ers ne 50 mcg 4-30 tablet by ity o f tablet 00:00: mouth [place] 00 every Medical morning. Branch levothyroxi 2017-0 Yes 50ug Take 1 Univ ers ne 50 mcg 4-30 tablet by ity o f tablet 00:00: mouth [place] 00 every Medical morning. Branch levothyroxi 2017-0 Yes 50ug Take 1 Univ ers ne [...] day Ho spita 00 l bisoprolol Yes [id number] 10mg Take 1 U nivers 10 mg 1-11 tablet by ity of tablet 00:00: mouth [place] 00 daily. Medical Branch cyclobenzap Yes [id number] 10mg Take 1 Univers rine 10 mg 1-11 tablet by ity of tablet 00:00: mouth at [place] 00 bedtime. Medical Branch bisoprolol Yes [id number] 10mg Take 1 U nivers 10 mg 1-11 tablet by ity of tablet 00:00: mouth [place] 00 daily. Medical Branch cyclobenzap Yes [id number] 10mg Take 1 Univers rine 10 mg 1-11 tablet by ity of tablet 00:00: mouth at [place] 00 bedtime. Medical Branch bisoprolol Yes [id number] 10mg Take 1 U nivers 10 mg 1-11 tablet by ity of tablet 00:00: mouth [place] 00 daily. Medical Branch cyclobenzap Yes [id number] 10mg Take 1 Univers rine 10 mg 1-11 tablet by ity of tablet 00:00: mouth at [place] 00 bedtime. Medical Branch bisoprolol Yes [id number] 10mg Take 1 U nivers 10 mg 1-11 tablet by ity of tablet 00:00: mouth [place] 00 daily. Medical Branch cyclobenzap Yes [id number] 10mg Take 1 Univers rine 10 mg 1-11 tablet by ity of tablet 00:00: mouth at [place] 00 bedtime. Medical Branch albuterol 2015-07 Yes [...] 00 evening. Medical Branch fluticasone 0 Yes fluticason [facility] propionate 9-[address] (FLONASE) 00:00: propionate [facility] sp[facility] 50 00 50 l mcg/actuati mcg/actuat on nasal ion nasal spray spray,susp ension fluticasone Yes fluticason [facility] propionate 9-[address] (FLONASE) 00:00: propionate Ho spita 50 00 50 l mcg/actuati mcg/actuat on nasal ion nasal spray spray,susp ension fluticasone 2015-0 Yes fluticason Method[facility] propionate 03-[address] [...] nasal ion nasal spray spray,susp ension fluticasone 2015-0 Yes fluticason [facility] propionate 03-[address] (FLONASE) 00:00: propionate Ho spita 50 00 50 l mcg/actuati mcg/actuat on nasal ion nasal spray spray,susp ension fluticasone 2015- Yes fluticason [facility] propionate 03-[address] (FLONASE) 00:00: propionate Ho spita 50 00 50 l mcg/actuati mcg/actuat on nasal ion nasal spray spray,susp ension fluticasone 2015-0 Yes fluticason [facility] propionate 03-[address] (FLONASE) 00:00: propionate Ho spita 50 00 50 l mcg/actuati mcg/actuat on nasal ion nasal spray spray,susp ension fluticasone 2015-0 Yes Univer s 50 03-17 ity of mcg/actuati 00:00: [place] on nasal 00 Medical spray Branch fluticasone 2015- Yes Univer s 50 03-17 ity of mcg/actuati 00:00: [place] on nasal 00 Medical spray Branch fluticasone Yes Univer s 50 9- ity of mcg/actuati 00:00: [place] on nasal 00 Medical spray Branch fluticasone Yes Univer s 50 9-02 ity of mcg/actuati 00:00: [place] on nasal 00 Medical spray Branch Albuterol Albuterol No 1{puff_ 6xD Albuterol Sulfate [...] Pantoprazo e Sodium e Sodium le Sodium Levothyroxi Levothyroxi Yes M.D. U T ne Sodium ne Sodium Physi ci TABS TABS ans hydrALAZINE hydrALAZINE No hydrALAZIN HCl HCl E HCl Bisoprolol Bisoprolol No 1{table QD Bisoprolol Fumarate 10 Fumarate 10 t} Fumarate MG MG 10 MG Meloxicam Meloxicam Yes M.D. [place] TABS TABS Physici ans Valsartan-h Valsartan-h No Valsartan- ydroCHLOROt ydroCHLOROt hydroCHLOR hiazide hiazide Othiazide Amitriptyli Amitriptyli Yes M.D. U T ne HCl TABS ne HCl TABS P hysici ans Amitriptyli Amitriptyli No 1{table QD Amitriptyl ne [...] Othiazide 80-12.5 MG 80-12.5 MG 80-12.5 MG Immunizations Ordered Filled Immunization Date Status Comments Sour e Immunization Name Name Covid-19 Vaccine 2021-03-31 Completed Rosi esposito (Moderna), 00:00:00 Mrna-lnp, Shade Protein, Pf, 100 Mcg/0.5ml,IM Covid-19 Vaccine 2021-03-02 Completed Rosi esposito (Moderna), 00:00:00 Mrna-lnp, [place] Protein, Pf, 100 Mcg/0.5ml,IM TDAP 2016-07-24 Completed University 00:00:00 [facility] Influenza Virus 2016-07-24 Completed Universit y of Vaccine Quad IM 3+ 00:00:00 [facility] TDAP 2016-07-24 Completed University 00:00:00 [facility] Influenza Virus 2016-07-24 Completed Universit y of Vaccine Quad IM 3+ 00:00:00 [facility] TDAP 2016-07-24 Completed University of 00:00:00 [facility] Influenza Virus 2016-07-24 Completed Universit y of Vaccine Quad IM 3+ 00:00:00 [facility] TDAP 2016-07-24 Completed University of 00:00:00 [facility] Influenza Virus 2016-07-24 Completed Universit y of Vaccine Quad IM 3+ 00:00:00 [facility] Influenza Virus 2016-07-24 Completed Rosi solano Vaccine, No 00:00:00 Preserv, age 6 months and up Tdap- (Boostrix, 2016-07-24 Completed Rosi S eybold Adacel) 00:00:00 Tdap- (Boostrix, 2010-01-18 Completed Rosi ballardbold Adacel) 00:00:00 Vital Signs Vital Name Observation Time Observation Value Comments Source Systolic blood 2021-10-10 20:19:00 141 mm[Hg] Univer sity of pressure [facility] Diastolic blood 2021-10-10 20:19:00 98 mm[Hg] Unive rsity of [facility] Heart rate 2021-10-10 20:19:00 109 /min Universi ty [facility] Body temperature 2021-10-10 20:19:00 36.94 Sole Univ ersity [facility] Respiratory rate 2021-10-10 20:19:00 18 /min [facility] 2021-10-10 20:19:00 [facility] weight 2021-10-10 20:19:00 115.667 [facility] BMI 2021-10-10 20:19:00 45.17 kg/m2 [facility] Oxygen saturation in 2021-10-10 20:19:00 97 /min [facility] Arterial blood by [facility] Pulse oximetry Branch Systolic blood 2021-04-28 14:43:00 100 mm[Hg] Rosi ybold pressure Diastolic blood 2021-04-28 14:43:00 60 mm[Hg] Kelse y Seybold pressure Heart rate 2021-04-28 14:43:00 112 /min Rosi ballardboshabnam Body temperature 2021-04-28 14:43:00 37 Sole Agueda ey Seybold Respiratory rate 2021-04-28 14:43:00 16 /min Agueda ey Seybold Body height 2021-04-28 14:43:00 157.5 cm Rosi Palmer eybold Body weight 2021-04-28 14:43:00 113.853 kg Rosi ballardbold BMI 2021-04-28 14:43:00 45.91 kg/m2 Rosi Palmer eybold height 2021-03-30 10:10:00 60.75 [in_i] Common [facility] weight 2021-03-30 10:10:00 245 [lb_av] Common [facility] temperature 2021-03-30 10:10:00 97.2 [degF] Common S [facility] bmi 2021-03-30 10:10:00 46.67 kg/m2 Common S [facility] oximetry 2021-03-30 10:10:00 100 % Common S [facility] respiratory rate 2021-03-30 10:10:00 17 /min Comm on [facility] blood pressure 2021-03-30 10:10:00 121 mm[Hg] Common [facility] - systolic [facility] blood pressure 2021-03-30 10:10:00 73 mm[Hg] Common [facility] - diastolic [facility] height 2021-02-15 16:20:00 60.75 [in_i] Common [facility] weight 2021-02-15 16:20:00 251.6 [lb_av] Common [facility] temperature 2021-02-15 16:20:00 97.3 [degF] Common [facility] bmi 2021-02-15 16:20:00 47.93 kg/m2 Common S [facility] oximetry 2021-02-15 16:20:00 97 % [facility] respiratory rate 2021-02-15 16:20:00 18 /min Comm on [facility] blood pressure 2021-02-15 16:20:00 120 mm[Hg] Common [facility] - systolic [facility] blood pressure 2021-02-15 16:20:00 76 mm[Hg] Common [facility] - diastolic [facility] BMI 2021-02-11 13:34:00 45.17 kg/m2 Universi ty of [facility] Systolic blood 2021-02-11 13:34:00 127 mm[Hg] Univer sity of [facility] Diastolic blood 2021-02-11 13:34:00 87 mm[Hg] Unive rsity of pressure [facility] Heart rate 2021-02-11 13:34:00 100 /min [facility] Body height 2021-02-11 13:34:00 160 cm [facility] Body weight 2021-02-11 13:34:00 115.667 kg [facility] height 2021-01-20 11:00:00 60.75 [in_i] [facility] weight 2021-01-20 11:00:00 255 [lb_av] [facility] temperature 2021-01-20 11:00:00 97.3 [degF] Common [facility] bmi 2021-01-20 11:00:00 48.57 kg/m2 [facility] oximetry 2021-01-20 11:00:00 98 % [facility] respiratory rate 2021-01-20 11:00:00 18 /min Comm on [facility] blood pressure 2021-01-20 11:00:00 122 mm[Hg] Common [facility] systolic [facility] blood pressure 2021-01-20 11:00:00 68 mm[Hg] Common [facility] - diastolic [facility] height 2020-12-15 14:00:00 60.75 [in_i] [facility] weight 2020-12-15 14:00:00 258 [lb_av] Common [facility] temperature 2020-12-15 14:00:00 97.9 [degF] Common [facility] bmi 2020-12-15 14:00:00 49.15 kg/m2 [facility] oximetry 2020-12-15 14:00:00 98 % Common [facility] respiratory rate 2020-12-15 14:00:00 20 /min Comm on [facility] blood pressure 2020-12-15 14:00:00 118 mm[Hg] Common [facility] - systolic [facility] blood pressure 2020-12-15 14:00:00 67 mm[Hg] [facility] - [facility] Systolic (mm Hg) 2021-03-16 13:19:00 Lev rial [place] Diastolic (mm Hg) 2021-03-16 13:19:00 Mem orial [place] Heart Rate 2021-03-16 13:19:00 [facility] [place] Respitory Rate 2021-03-16 13:19:00 Memori al [place] Height 2021-03-16 13:19:00 152.4 cm Memorial [place] Weight 2021-03-16 13:19:00 [facility] [place] BMI Calculated 2021-03-16 13:19:00 Memori al [place] Systolic (mm Hg) 2021-02-01 18:35:00 Lev rial [place] Diastolic (mm Hg) 2021-02-01 18:35:00 Mem orial [place] Heart Rate 2021-02-01 18:35:00 Memorial [place] Respitory Rate 2021-02-01 18:35:00 Memori al [place] Height 2021-02-01 18:35:00 152.4 cm Memorial [place] Weight 2021-02-01 18:35:00 [facility] [place] BMI Calculated 2021-02-01 18:35:00 Memori al [place] Systolic (mm Hg) 2020-09-24 19:34:00 Lev rial [place] Diastolic (mm Hg) 2020-09-24 19:34:00 Mem orial [place] Heart Rate 2020-09-24 19:34:00 [facility] [place] Respitory Rate 2020-09-24 19:34:00 Memori al [place] Height 2020-09-24 19:34:00 160.02 cm [facility] [place] Weight 2020-09-24 19:34:00 [facility] [place] BMI Calculated 2020-09-24 19:34:00 Memori al [place] Respitory Rate 2020-02-26 16:32:00 Memori al [place] Systolic (mm Hg) 2020-02-26 16:32:00 Lev rial [place] Diastolic (mm Hg) 2020-02-26 16:32:00 Mem orial [place] Heart Rate 2020-02-26 16:00:00 Memorial [place] Respitory Rate 2020-02-26 16:00:00 Memori al [place] Systolic (mm Hg) 2020-02-26 16:00:00 Lev rial [place] Diastolic (mm Hg) 2020-02-26 16:00:00 Mem orial [place] Heart Rate 2020-02-26 15:50:00 Memorial [place] Respitory Rate 2020-02-26 15:50:00 Memori al [place] Systolic (mm Hg) 2020-02-26 15:50:00 Lev rial [place] Diastolic (mm Hg) 2020-02-26 15:50:00 Mem orial [place] Heart Rate 2020-02-26 15:40:00 [facility] [place] Temperature Oral (F) 2020-02-26 15:20:00 37.0 Sole [facility] [place] Temperature Oral (F) 2020-02-26 11:25:00 37.2 Sole [facility] [place] Height 2020-02-26 11:25:00 158 cm [facility] [place] Height 2020-02-18 16:59:00 158 cm [facility] [place] Systolic blood 2020-02-02 14:39:00 134 mm[Hg] [facility] [...] Systolic (mm Hg) 2019-12-02 20:40:00 Lev rial [place] Diastolic (mm Hg) 2019-12-02 20:40:00 Mem orial [place] Heart Rate 2019-12-02 20:40:00 [facility] [place] Respitory Rate 2019-12-02 20:40:00 Memori al [place] Height 2019-12-02 20:40:00 152.4 cm [facility] [place] Weight 2019-12-02 20:40:00 [facility] [place] BMI Calculated 2019-12-02 20:40:00 Memori al [place] Weight 2019-02-14 19:40:00 [facility] [place] BMI Calculated 2019-02-14 19:40:00 Memori al [place] Height 2019-02-14 19:40:00 160.02 cm [facility] [place] Respitory Rate 2019-02-14 19:40:00 Memori al [place] Heart Rate 2019-02-14 19:40:00 [facility] [place] Systolic (mm Hg) 2019-02-14 19:40:00 Lev rial [place] Diastolic (mm Hg) 2019-02-14 19:40:00 Mem orial [place] BMI Calculated 2018-12-24 20:38:00 Memori al [place] Weight 2018-12-24 20:38:00 [facility] [place] Height 2018-12-24 20:38:00 157.48 cm [facility] [place] Systolic (mm Hg) 2018-12-24 20:38:00 Lev rial [place] Diastolic (mm Hg) 2018-12-24 20:38:00 Mem orial [place] Respitory Rate 2018-12-24 20:38:00 Memori al [place] Heart Rate 2018-12-24 20:38:00 [facility] [place] Height 2018-12-20 19:20:00 152.4 cm [facility] [place] BMI Calculated 2018-12-20 19:20:00 Memori al [place] Weight 2018-12-20 19:20:00 [facility] [place] Systolic (mm Hg) 2018-12-20 19:20:00 Lev rial [place] Diastolic (mm Hg) 2018-12-20 19:20:00 Mem orial [place] Heart Rate 2018-12-20 19:20:00 [facility] [place] Respitory Rate 2018-12-20 19:20:00 Memori al [place] Systolic (mm Hg) 2018-11-22 19:23:00 Lev rial [place] Diastolic (mm Hg) 2018-11-22 19:23:00 Mem orial [place] Respitory Rate 2018-11-22 19:23:00 Carissa Redman Height 2018-11-22 19:23:00 157.48 cm Naresh Segovia Weight 2018-11-22 19:23:00 Naresh Segovia BMI Calculated 2018-11-22 19:23:00 Carissa Redman Heart Rate 2018-11-22 19:23:00 [facility] [place] Procedures Procedure Date / Time Performing Clinician Source Performed AUTHORIZATION FOR RELEASE 2022-05-02 05:01:00 Doctor Unassigned, [facility] [facility] CONSENT/REFUSAL FOR 2021-10-10 20:09:22 Doctor Unassigned, [facility] DIAGNOSIS AND TREATMENT [facility] [facility] MRI SPINE EXTERNAL STUDY 2021-04-29 16:16:04 Tony Gray [facility] MR Ankle wo contrast [id number] 2020-07-02 00:00:00 [facility] [[facility]MD] US Lower Extremity 2020-05-31 00:00:00 [facility] Venous Doppler Bilateral Post Op Promis 29 Survey 2020-03-12 00:00:00 [facility] APPLICATION SHORT LEG 2020-02-26 13:13:00 Carissa Monteiroann SPLINT-CALF TO FOOT [id number] (Left)<sup>1</sup> ARTHROSCOPY ANKLE 2020-02-26 13:13:00 [facility] Luis jose 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 36020 (Left)<sup>2</sup> OPEN REDUCTION INTERNAL 2020-02-26 13:13:00 Lev rial [place] FIXATION TALUS FRACTURE [id number] (Left)<sup>3</sup> [L] 2019 Novel Coronavirus 2020-02-05 00:00:00 [facility] (COVID-19), MARK [[facility]] Ortho - Surgery 2020-02-02 00:00:00 [facility] Breast reduction, [facility] bilateral Bunionectomy [facility] Carpal tunnel syndrome of Carissa oconnell [place] right wrist Plantar fasciitis of left Carissa Monteiroann foot History of Breast [facility] reduction History of Carpal tunnel [facility] surgery Plan of Care Planned Activity Planned Date Details Comments Source Future Scheduled 2022-12-29 Screening for [facility] Test 10:47:16 malignant neoplasm of colon (procedure) [code = 173058286] Future Scheduled 2022-12-29 Screening for [facility] Test 10:47:16 malignant neoplasm of colon (procedure) [code = 196315904] Future Scheduled 2022-12-29 Screening for [facility] Test 10:47:16 malignant neoplasm of colon (procedure) [code = 464913020] Future Scheduled 2022-12-29 Hepatitis C [facility] Test 10:47:16 screening (procedure) [code = 763521261] Future Scheduled 2022-12-29 Screening for [facility] Test 10:47:16 malignant neoplasm of cervix (procedure) [code = 598566691] Future Scheduled 2022-12-29 BREAST CANCER [facility] Test 10:47:16 SCREENING [code = BREAST CANCER SCREENING] Future Scheduled 2022-12-29 Screening for [facility] Test 10:47:16 malignant neoplasm of colon (procedure) [code = 334694972] Future Scheduled 2022-12-29 Screening for [facility] Test 10:47:16 malignant neoplasm of colon (procedure) [code = 738176957] Future Scheduled 2022-12-29 COVID-19 VACCINE (3 [facility] 10:47:16 - Moderna series) [code = COVID-19 VACCINE (3 - Moderna series)] Future Scheduled 2022-12-29 [facility]ZA [facility]ACCINE [facility] 10:47:16 [code = INFLUENZA VACCINE] Future Scheduled 2022-10-27 [facility] Test 09:26:37 screening (procedure) [code = 492873277] Future Scheduled 2022-10-27 Screening for [facility] Test 09:26:37 malignant neoplasm of cervix (procedure) [code = 339664783] Future Scheduled 2022-10-27 BREAST CANCER [facility] Test 09:26:37 SCREENING [code = BREAST CANCER SCREENING] Future Scheduled 2022-10-27 [facility]OSCOPY [facility] Test 09:26:37 SCREENING [code = COLONOSCOPY SCREENING] Future Scheduled 2022-10-27 COVID-19 VACCINE (3 [facility] Test 09:26:37 - Booster for Moderna series) [code = COVID-19 VACCINE (3 - Booster for Moderna series)] Future Scheduled 2022-10-27 [facility]ZA [facility]ACCINE [facility] 09:26:37 [code = INFLUENZA VACCINE] Future Scheduled 2022-10-27 [facility] Test 09:26:37 screening (procedure) [code = 485393711] Future Scheduled 2022-10-27 Screening for [facility] Test 09:26:37 malignant neoplasm of cervix (procedure) [code = 237602946] Future Scheduled 2022-10-27 BREAST CANCER [facility] Test 09:26:37 SCREENING [code = BREAST CANCER SCREENING] Future Scheduled 2022-10-27 [facility]COPY [facility] Test 09:26:37 SCREENING [code = COLONOSCOPY SCREENING] Future Scheduled 2022-10-27 COVID-19 VACCINE (3 [facility] Test 09:26:37 - Booster for Moderna series) [code = COVID-19 VACCINE (3 - Booster for Moderna series)] Future Scheduled 2022-10-27 [facility]ACCINE [facility] 09:26:37 [code = INFLUENZA VACCINE] Future Scheduled 2022-10-27 [facility] Test 09:26:37 screening (procedure) [code = 199673156] Future Scheduled 2022-10-27 Screening for [facility] Test 09:26:37 malignant neoplasm of cervix (procedure) [code = 288785431] Future Scheduled 2022-10-27 BREAST CANCER [facility] Test 09:26:37 SCREENING [code = BREAST CANCER SCREENING] Future Scheduled 2022-10-27 [facility]COPY [facility] 09:26:37 SCREENING [code = COLONOSCOPY SCREENING] Future Scheduled 2022-10-27 COVID-19 VACCINE (3 [facility] Test 09:26:37 - Booster for Moderna series) [code = COVID-19 VACCINE (3 - Booster for Moderna series)] Future Scheduled 2022-10-27 [facility]ZA [facility]ACCINE [facility] 09:26:37 [code = INFLUENZA VACCINE] Future Scheduled 2022-07-06 [facility] Test 08:29:48 screening (procedure) [code = 693401851] Future Scheduled 2022-07-06 Screening for [facility] Test 08:29:48 malignant neoplasm of cervix (procedure) [code = 261393990] Future Scheduled 2022-07-06 BREAST CANCER [facility] Test 08:29:48 SCREENING [code = BREAST CANCER SCREENING] Future Scheduled 2022-07-06 [facility]COPY [facility] 08:29:48 SCREENING [code = COLONOSCOPY SCREENING] Future Scheduled 2022-07-06 COVID-19 VACCINE ([facility] Test 08:29:48 - Booster for Moderna series) [code = COVID-19 VACCINE (3 - Booster for Moderna series)] Future Scheduled 2022-07-06 [facility]ACCINE [facility] 08:29:48 [code = INFLUENZA VACCINE] Future Scheduled 2022-04-27 HEPATITIS B VACCINES [facility] Test 09:25:03 (1 of 3 - 3-dose series) [code = HEPATITIS B VACCINES (1 of 3 - 3-dose series)] Future Scheduled 2022-04-27 [facility] Test 09:25:03 screening (procedure) [code = 983294439] Future Scheduled 2022-04-27 Screening for [facility] Test 09:25:03 malignant neoplasm of cervix (procedure) [code = 558170003] Future Scheduled 2022-04-27 BREAST CANCER [facility] Test 09:25:03 SCREENING [code = BREAST CANCER SCREENING] Future Scheduled 2022-04-27 [facility] 09:25:03 SCREENING [code = COLONOSCOPY SCREENING] Future Scheduled 2022-04-27 [facility] 09:25:03 - Booster for Moderna series) [code = COVID-19 VACCINE (3 - Booster for Moderna series)] Future Scheduled 2022-04-27 [facility]ZA [facility]ACCINE [facility] 09:25:03 [code = INFLUENZA VACCINE] Future Scheduled 2022-03-30 HEPATITIS B VACCINES [facility] Test 16:54:14 (1 of 3 - 3-dose series) [code = HEPATITIS B VACCINES (1 of 3 - 3-dose series)] Future Scheduled 2022-03-30 [facility] 16:54:14 screening (procedure) [code = 777592824] Future Scheduled 2022-03-30 Screening for [facility] Test 16:54:14 malignant neoplasm of cervix (procedure) [code = 506153050] Future Scheduled 2022-03-30 BREAST CANCER [facility] Test 16:54:14 SCREENING [code = BREAST CANCER SCREENING] Future Scheduled 2022-03-30 [facility] 16:54:14 SCREENING [code = COLONOSCOPY SCREENING] Future Scheduled 2022-03-30 [facility] Test 16:54:14 - Booster for Moderna series) [code = COVID-19 VACCINE (3 - Booster for Moderna series)] Future Scheduled 2022-03-30 [facility]FLUENZA VACCINE [facility] Test 16:54:14 [code = INFLUENZA VACCINE] Future Scheduled 2022-03-30 HEPATITIS B VACCINES [facility] Test 16:54:14 (1 of 3 - 3-dose series) [code = HEPATITIS B VACCINES (1 of 3 - 3-dose series)] Future Scheduled 2022-03-30 [facility] Test 16:54:14 screening (procedure) [code = 593660237] Future Scheduled 2022-03-30 [facility]ening for [facility] Test 16:54:14 malignant neoplasm of cervix (procedure) [code = 372132339] Future Scheduled 2022-03-30 BREAST CANCER [facility] Test 16:54:14 SCREENING [code = BREAST CANCER SCREENING] Future Scheduled 2022-03-30 COLONOSCOPY [facility] Test 16:54:14 SCREENING [code = COLONOSCOPY SCREENING] Future Scheduled 2022-03-30 COVID-19 VACCINE (3 [facility] Test 16:54:14 - Booster for Moderna series) [code = COVID-19 VACCINE (3 - Booster for Moderna series)] Future Scheduled 2022-03-30 INFLUENZA VACCINE [facility] Test 16:54:14 [code = INFLUENZA VACCINE] Future Scheduled 2022-03-09 HEPATITIS B VACCINES [facility] Test 10:28:27 (1 of 3 - 3-dose series) [code = HEPATITIS B VACCINES (1 of 3 - 3-dose series)] Future Scheduled 2022-03-09 [facility] Test 10:28:27 screening (procedure) [code = 512232592] Future Scheduled 2022-03-09 [facility] Test 10:28:27 malignant neoplasm of cervix (procedure) [code = 738087522] Future Scheduled 2022-03-09 BREAST CANCER [facility] Test 10:28:27 SCREENING [code = BREAST CANCER SCREENING] Future Scheduled 2022-03-09 [facility] Test 10:28:27 SCREENING [code = COLONOSCOPY SCREENING] Future Scheduled 2022-03-09 COVID-19 VACCINE (3 [facility] Test 10:28:27 - Booster for Moderna series) [code = COVID-19 VACCINE (3 - Booster for Moderna series)] Future Scheduled 2022-03-09 INFLUENZA VACCINE [facility] Test 10:28:27 [code = INFLUENZA VACCINE] Future Scheduled 2021-08-16 [facility] Test 19:56:30 screening (procedure) [code = 162822142] Future Scheduled 2021-08-16 [facility] Test 19:56:30 malignant neoplasm of cervix (procedure) [code = 764113493] Future Scheduled 2021-08-16 INFLUENZA VACCINE [facility] Test 19:56:30 [code = INFLUENZA VACCINE] Future Scheduled 2021-08-16 COVID-19 VACCINE (3 [facility] Test 19:56:30 - Booster for Moderna series) [code = COVID-19 VACCINE (3 - Booster for Moderna series)] Diagnostic Test 2020-02-02 [UTP] Ortho - UT Physicia ns Pending 00:00:00 Surgery Scheduling [code = [UTP] Ortho - Surgery Scheduling] Encounters Start End Encounter Admission Attending Care Care Encounter Source Date/Time Date/Time Type Type Clinicians Facility Department ID 2022-02-21 Outpatient Jose [facility] [id number] Common 13:42:03 Avnee [id number] [facility] 2021-08-10 Outpatient Garcia, [facility] [id number] Common 13:49:13 Avnee [id number] [facility] 2021-08-10 Outpatient Jose [facility] [id number] Common 13:47:59 Avnee [id number] [facility] 2021-08-10 Outpatient Garcia, [facility] [id number] Common 13:43:00 Avnee [id number] [facility] 2021-08-10 Outpatient Garcia, [facility] [id number] Common 13:37:06 Avnee [id number] [facility] 2021-08-10 Outpatient Garcia, [facility] [id number] Common 13:23:50 Avnee [id number] [facility] 2021-08-10 Outpatient Jose [facility] [id number] Common 13:22:32 Avnee [id number] [facility] 2021-08-10 Outpatient Garcia, [facility] [id number] Common 13:09:55 Avnee [id number] [facility] 2021-05-15 Outpatient Scott PERES [facility] [id number] Univers 06:58:12 [facility] 2022-10-17 2022-10-17 Travel 1.2.840.1 [id number] Methodi 00:00:00 00:00:[address] 3.430.2.7 0.2.7.3.698 Ho spita .3.369835 084.8 l .8 2022-10-17 2022-10-17 Travel 1.2.840.1 1.2.511.341 [id number] Methodi 00:00:00 00:00:[address] 3.430.2.7 0.2.7.3.698 Ho spita .3.235117 084.8 l .8 2022-09-07 2022-09-07 Outpatient ROSI ALARCON [id number] Rosi 00:00:00 00:00:00 ALFONZO armendariz 2022-07-20 2022-07-22 Outside MHIE MNA [id number] Memoria 14:48:41 05:59:59 Medical Neurology 01 l Records Nik Segovia 2022-07-20 2022-07-22 Outside MHIE MNA [id number] Memoria 14:48:41 05:59:59 Medical Neurology 01 l Records Wenden Luca 2022-07-20 2022-07-21 Outpatient MHMISCHER MHMISCHER [id number] 08:48:41 23:59:59 2022-05-02 2022-05-02 (TEL) [facility] [id number] Co mmon 00:00:00 00:00:00 [facility] 2022-05-02 2022-05-02 Orders Doctor DUEÑAS 1.2.840.114 [id number] Univers 00:00:00 00:00:00 Only Unassigned, MARIA ELENA 350.1.13.10 ity of [facility] 4.2.7.2.686 [place] [phone] [facility] [address] Branch 2022-02-21 2022-02-21 Outpatient ROSI CAMPBELL [id number] Rosi 00:00:00 00:00:00 HAMZAH armendariz 2021-10-10 2021-10-10 Emergency [facility] [id number] Univers 15:21:00 15:42:00 CAT itcrow [facility] 2021-10-10 2021-10-10 Emergency [facility] 1.2.840.114 [id number] Univers 15:21:00 15:42:00 Cat DUMONT 350.1.13.10 ity [facility] 4.2.7.2.686 [facility] [phone] [facility] 084 Branch 2021-10-10 2021-10-10 Outpatient ROSI ALARCON [id number] Rosi 00:00:00 00:00:00 ALFONZO armendariz 2021-09-09 2021-09-11 Outside nullFlavo MNA [id number] Memoria 15:41:21 05:59:59 Medical r Neurology 00 l Records Wenden Lcua 2021-09-09 2021-09-11 Outside nullFlavo MNA [id number] Memoria 15:41:21 05:59:59 Medical r Neurology 00 l Records Wenden Luca 2021-09-09 2021-09-10 Outpatient MHMISCHER MHMISCHER [id number] 09:41:21 23:59:59 00 2021-09-09 2021-09-09 Outpatient ROSI ALARCON [id number] Rosi 00:00:00 00:00:00 ALFONZO armendariz 2021-08-26 2021-08-26 Outpatient ROSI ALARCON [id number] Rosi 00:00:00 00:00:00 ALFONZO Seybol d 2021-07-05 2021-07-05 Outpatient ROSI ALARCON [id number] Rosi 00:00:00 00:00:00 ALFONZO Seybol d 2021-07-05 2021-07-05 Outpatient ROSI ALARCON [id number] Rosi 00:00:00 00:00:00 ALFONZO Seybol d 2021-06-02 2021-06-02 Outpatient ROSI ALARCON [id number] Rosi 00:00:00 00:00:00 ALFONZO Seybol d 2021-05-23 2021-05-23 Documentat Marina, 1.2.840.1 [id number] Methodi 00:00:00 00:00:00 ion Tony Hdz 95311.1.[address] 3.430.2.7 Hospit a .3.080704 l .8 2021-05-18 2021-05-18 [facility] 1.2.840.1 [id number] Methodi 12:57:38 23:59:[address] 3.430.2.7 Hospit a .3.067283 l .8 2021-05-18 2021-05-18 Office Marina 1.2.840.1 [id number] Methodi 13:15:00 15:18:57 Visit Tony Menendez50.1.[address] 3.430.2.7 Hospit a .3.972603 l .8 2021-05-18 2021-05-18 Outpatient [facility] [id number] [place] 00:00:00 00:00:[address] 2021-05-18 2021-05-18 [facility] [place] 1.2.840.1 [id number] Methodi 00:00:00 00:00:00 Only Tony Hdz 50585.1.[address] 3.430.2.7 Hospit a .3.140503 l .8 2021-05-16 2021-05-16 Outpatient ROSI ALARCON [id number] Rosi 00:00:00 00:00:00 ALFONZO Seybol d 2021-05-11 2021-05-11 Outpatient ROSI ALARCON [id number] Rosi 00:00:00 00:00:00 ALFONZO Seybol d 2021-05-11 2021-05-11 Outpatient ROSI ALARCON [id number] Rosi 00:00:00 00:00:00 ALFONZO Seybol d 2021-04-28 2021-04-28 Office Jered Alarcon 1.2.840.114 [id number] Rosi 09:39:43 10:09:43 Visit Alfonzo Montenegro 350.1.13.13 Se russ Rolanda 1.2.7.2.686 [id number] 2021-04-27 2021-04-27 Ambulatory nullFlavo MNA [id number] Memoria 15:15:00 15:15:00 Pre-Reg r Neurology 13 l Nik Segovia 2021-04-27 2021-04-27 Ambulatory nullFlavo MNA [id number] Memoria 15:15:00 15:15:00 Pre-Reg r Neurology 13 l Nik Segovia 2021-04-27 2021-04-27 Outpatient DIMAIE DIMAIE [id number] Memoria 10:15:00 10:15:00 13 l Luca 2021-04-27 2021-04-27 Outpatient VIRGILIO Espinal [facility] [id number] 10:15:00 10:15:00 Malcom Graham 2021-04-21 2021-04-21 (TEL) STLMLC STLMLC [id number] Co mmon 00:00:00 00:00:00 [facility] 2021-04-12 2021-04-12 (TEL) STLMLC STLMLC [id number] Co mmon 00:00:00 00:00:00 [facility] 2021-04-06 2021-04-06 (TEL) STLMLC STLMLC [id number] Co mmon 00:00:00 00:00:00 [facility] 2021-03-31 2021-03-31 (TEL) STLMLC STLMLC [id number] Co mmon 00:00:00 00:00:00 [facility] 2021-03-30 2021-03-30 OFFICE STLMLC STLMLC [id number] Co mmon 00:00:00 00:00:00 VISIT EST Spir it PT LEVEL 3 - [facility] 2021-03-30 2021-03-30 (TEL) STLMLC STLMLC [id number] Co mmon 00:00:00 00:00:00 [facility] 2021-03-28 2021-03-28 Outpatient R ROYCE PRUETT [facility] [id number] Univers 10:30:00 10:30:00 ity [facility] 2021-03-23 2021-03-23 Telephone Peres [facility] 1.2.840.114 [id number] Univers 00:00:00 00:00:00 [facility] 350.1.13.10 it y of [place] 4.2.7.2.686 [place] as Sam?Blea [id number] Ak dical [address] Medical Office [facility] 2021-03-16 2021-03-17 Outpatient nullFlavo MNA [id number] Memoria 13:15:00 04:59:59 r Neurology 12 l Nik Segovia 2021-03-16 2021-03-17 Outpatient nullFlavo MNA [id number] Memoria 13:15:00 04:59:59 r Neurology 12 l Nik Segovia 2021-03-17 2021-03-17 (TEL) [facility] [id number] Co mmon 00:00:00 00:00:00 [facility] 2021-03-16 2021-03-16 Outpatient VIRGILIO Espinal [id number] 08:15:00 23:59:59 Malcom 12 Santos 2021-03-16 2021-03-16 Outpatient MHIE DIMAIE [id number] Memoria 08:15:00 08:15:00 12 violet Segovia 2021-02-23 2021-02-23 OFFICE STLMLC STLMLC [id number] Co mmon 00:00:00 00:00:00 VISIT EST Spir it PT LEVEL 3 - [facility] 2021-02-21 2021-02-21 (TEL) STLMLC STLMLC [id number] Co mmon 00:00:00 00:00:00 [facility] 2021-02-16 2021-02-16 (TEL) STLMLC STLMLC [id number] Co mmon 00:00:00 00:00:00 [facility] 2021-02-15 2021-02-15 OFFICE STLMLC STLMLC [id number] Co mmon 00:00:00 00:00:00 VISIT EST Spir it PT LEVEL 3 [facility] 2021-02-11 2021-02-11 Outpatient Scott PERES [facility] [id number] Univers 08:15:00 08:56:02 [facility] 2021-02-11 2021-02-11 [facility] 1.2.448.534 [id number] Univers 08:13:08 08:56:02 Visit [facility] 350.1.13.10 it y of SURGICAL 4.2.7.2.686 [place] as SPECIALTI [phone] Ak dical [address] 2021-02-10 2021-02-10 Outpatient [facility] [id number] Univers 13:00:00 13:00:00 [facility] 2021-02-03 2021-02-03 Outpatient [facility] [id number] Univers 10:30:00 10:30:00 [facility] 2021-02-01 2021-02-02 Outpatient nullFlavo MNA [id number] Memoria 18:30:00 04:59:59 r Neurology 11 l Nik Segovia 2021-02-01 2021-02-02 Outpatient nullFlavo MNA [id number] Memoria 18:30:00 04:59:59 r Neurology 11 l Nik Segovia 2021-02-01 2021-02-01 Outpatient VIRGILIO Espinal [facility] [id number] 13:30:00 23:59:59 Malcom 11 Santos 2021-02-01 2021-02-01 Outpatient MHIE MHIE [id number] Memoria 13:30:00 13:30:00 11 violet Segovia 2021-01-20 2021-01-20 OFFICE STLMLC STLMLC [id number] Co mmon 00:00:00 00:00:00 VISIT EST Spir it PT LEVEL 3 - [facility] 2021-01-14 2021-01-14 (TEL) STLMLC STLMLC [id number] Co mmon 00:00:00 00:00:00 [facility] 2020-12-23 2020-12-23 Outpatient Scott JAFFE [facility] [id number] Univers 10:00:00 10:00:00 DEMETRIA [facility] 2020-12-23 2020-12-23 Outpatient Scott OLSON [facility] [id number] Univers 09:00:00 09:00:00 WONDIFUL ity o f [facility] 2020-12-16 2020-12-16 Outpatient Scott WOOD [facility] [id number] Univers 10:30:00 10:30:00 [facility] 2020-12-15 2020-12-15 (TEL) STLMLC STLMLC [id number] Co mmon 00:00:00 00:00:00 [facility] 2020-12-15 2020-12-15 OFFICE STLMLC STLMLC [id number] Co mmon 00:00:00 00:00:00 VISIT NEW Spir it PT LEVEL 4 - [facility] 2020-12-06 2020-12-06 Outpatient Scott WOOD [facility] [id number] Univers 15:52:18 23:59:00 [facility] 2020-11-25 2020-11-25 Outpatient ROYCE DELEON [facility] [id number] Univers 09:00:00 09:00:00 [facility] 2020-11-11 2020-11-11 Outpatient ROYCE DELEON [facility] [id number] Univers 15:30:00 15:30:00 [facility] 2020-11-04 2020-11-04 Outpatient R JACQUELINE, [facility] [id number] Univers 10:00:00 10:00:00 EMELYN [facility] 2020-10-28 2020-10-28 Outpatient Scott WOOD, [facility] [id number] Univers 10:45:00 10:45:00 [facility] 2020-10-25 2020-10-25 Outpatient Scott WOOD [facility] [id number] Univers 14:45:00 14:45:00 [facility] 2020-10-15 2020-10-15 Outpatient Scott WOOD [facility] [id number] Univers 10:00:00 10:00:00 [facility] 2020-10-08 2020-10-08 Outpatient Scott PERES [facility] [id number] Univers 09:30:00 09:30:00 [facility] 2020-10-08 2020-10-08 Outpatient Scott LUGO, [facility] [id number] Univers 09:15:00 09:15:00 OSCAR [facility] 2020-09-24 2020-09-25 Outpatient nullFlavo MNA [id number] Memoria 19:00:00 05:59:59 r Neurology 10 l Nik Segovia 2020-09-24 2020-09-25 Outpatient nullFlavo MNA [id number] Memoria 19:00:00 05:59:59 r Neurology 10 l Nik Segovia 2020-09-24 2020-09-24 Outpatient VIRGILIO Espinal [facility] [id number] 13:00:00 23:59:59 Malcom 10 Santos 2020-09-24 2020-09-24 Outpatient Scott WOOD [facility] [id number] Univers 11:58:20 23:59:00 [facility] 2020-09-24 2020-09-24 Outpatient TYRA MARY [id number] Memoria 13:00:00 13:00:00 10 violet Segovia 2020-09-21 2020-09-21 Outpatient Scott PERES [facility] [id number] Univers 00:00:00 00:00:00 [facility] 2020-09-09 2020-09-09 Outpatient R JA, [facility] [id number] Univers 09:15:00 09:15:00 ESTER [facility] 2020-09-06 2020-09-06 Ambulatory nullFlavo MNA [id number] Memoria 16:30:00 16:30:00 Pre-Reg r Neurology 09 l [place] 2020-09-06 2020-09-06 Ambulatory nullFlavo MNA [id number] Memoria 16:30:00 16:30:00 Pre-Reg r Neurology 09 l Wenden [place] 2020-09-06 2020-09-06 Outpatient MHIE TYRA [id number] Memoria 10:30:00 10:30:00 09 l Luca 2020-09-06 2020-09-06 Outpatient VIRGILIO EspinalAKSCHFLORA [id number] 10:30:00 10:30:00 Malcom 09 Santos 2020-07-14 2020-07-14 Outpatient Scott FAUST [facility] [id number] Univers 19:00:00 19:00:00 BROOKEWILLIAM rm o f [facility] 2020-07-02 2020-07-02 Appointmen MARKEL, [facility] Orthopedics [id number] [place] 14:30:00 14:30:00 t; RAJI JEAN BAPTISTE, - Sugar Phys ici RAJI, DPM Land 2 ans DPM 2020-06-01 2020-06-01 Ambulatory nullFlavo MNA [id number] Memoria 20:00:00 20:00:00 Pre-Reg r Neurology 08 l Wenden Luca 2020-06-01 2020-06-01 Ambulatory nullFlavo MNA [id number] Memoria 20:00:00 20:00:00 Pre-Reg r Neurology 08 l [place]enden [place] 2020-06-01 2020-06-01 Outpatient MHIE MHIE [id number] Memoria 14:00:00 14:00:00 08 l [place] 2020-06-01 2020-06-01 Outpatient VIPUL EspinalSCHFLORA MISCHFLORA [id number] 14:00:00 14:00:00 Malcom 08 Santos 2020-05-31 2020-05-[facility] Orthopedics [id number] [place] 10:00:00 10:00:00 t; RAJI JEAN BAPTISTE, - Sugar Phys ici RAJI, DPM [place] 2 ans DPM 2020-05-10 2020-05-10 [facility] 700 [id number] [place] 09:00:00 09:00:00 t; RAJI JEAN BAPTISTE, - Sugar Phys ici RAJI, DPM [place] 2 ans DPM 2020-04-27 2020-04-27 [facility] 698 [id number] [place] 14:45:00 14:45:00 t; RAJI JEAN BAPTISTE, - Sugar Phys ici RAJI, DPM [place] 2 ans DPM 2020-03-29 2020-03-29 [facility] 687 [address]186 [place] 13:00:00 13:00:00 t; RAJI JEAN BAPTISTE, - Sugar Phys ici RAJI, DPM [place] 2 ans DPM 2020-03-08 2020-03-08 [facility] 681 [id number] [place] 11:15:00 11:15:00 t; RAJI JEAN BAPTISTE, - Sugar Phys ici RAJI, DPM [place] 2 ans DPM 2020-02-26 2020-02-26 [facility] [id number] Memoria 10:46:09 16:30:00 [facility] 2020-02-26 2020-02-26 [id number] Memoria 10:46:09 16:30:00 [facility] 2020-02-26 2020-02-26 [facility] [id number] Memoria 05:46:09 11:30:00 r [facility] 2020-02-26 2020-02-26 Outpatient Markel, [id number] 05:46:09 11:30:00 Raji 8 2020-02-26 2020-02-26 [facility] [id number] [place] 10:30:00 10:30:00 t; RAJI JEAN BAPTISTE, - Sugar Phys ici RAJI, DPM [place] 2 ans DPM 2020-02-02 2020-02-02 [facility] [id number] [place] 10:45:00 10:45:00 t; RAJI JEAN BAPTISTE, - Sugar Phys ici RAJI, DPM [place] 2 ans DPM 2020-01-15 2020-01-16 Outpatient nullFlavo MNA [id number] Memoria 20:00:00 04:59:59 r Neurology 07 l Wenden [place] 2020-01-15 2020-01-16 Outpatient nullFlavo MNA [id number] Memoria 20:00:00 04:59:59 r Neurology 07 l [place] 2020-01-15 2020-01-15 Outpatient DIMA EspinalMISCHER MHMISCHER [id number] 15:00:00 23:59:59 Malcom 07 Santos 2020-01-15 2020-01-15 Ambulatory nullFlavo MNA [id number] Memoria 20:00:00 20:00:00 Pre-Reg r Neurology 06 l [place] 2020-01-15 2020-01-15 Ambulatory nullFlavo MNA [id number] Memoria 20:00:00 20:00:00 Pre-Reg r Neurology 06 l [place]enden [place] 2020-01-15 2020-01-15 Outpatient MHIE MHIE [id number] Memoria 15:00:00 15:00:00 07 l [place] 2020-01-15 2020-01-15 Outpatient MHIE MHIE [id number] Memoria 15:00:00 15:00:00 06 l Luca 2020-01-15 2020-01-15 Outpatient VIPUL EspinalSCHER MHMISCHER [id number] 15:00:00 15:00:00 Malcom 06 Santos 2019-12-02 2019-12-03 Outpatient nullFlavo MNA [id number] Memoria 20:30:00 04:59:59 r Neurology 05 l [place]enden [place] 2019-12-02 2019-12-03 Outpatient nullFlavo MNA [id number] Memoria 20:30:00 04:59:59 r Neurology 05 l Wenden [place] 2019-12-02 2019-12-02 Outpatient DIMA EspinalMISCHER MHMISCHER [id number] 15:30:00 23:59:59 Malcom 05 Santos 2019-12-02 2019-12-02 Outpatient MHIE MHIE [id number] Memoria 15:30:00 15:30:00 05 violet Segovia 2019-05-23 2019-05-23 Ambulatory nullFlavo MNA [id number] Memoria 19:15:00 19:15:00 Pre-Reg r Neurology 04 l Nik Segovia 2019-05-23 2019-05-23 Ambulatory nullFlavo MNA [id number] Memoria 19:15:00 19:15:00 Pre-Reg r Neurology 04 l Nik Harringtonann 2019-05-23 2019-05-23 Outpatient MHIE TYRA [id number] Memoria 13:15:00 13:15:00 04 violet Luca 2019-05-23 2019-05-23 Outpatient VIRGILIO Espinal [facility] [id number] 13:15:00 13:15:00 Malcom Connor Santos 2019-03-23 2019-03-23 Emergency Harish, [facility] [id number] [id number] 12:37:57 13:11:00 Palomo Dumont 350.1.13.10 [place] [address].2.7.2.686 [place] [id number] [facility] 2019-03-23 2019-03-23 Orders Doctor [facility] 1.2.840.114 [id number] 00:00:00 00:00:00 Only Unassigned, MARIA ELENA 350.1.13.10 [place] [address].2.7.2.686 [id number] 2019-02-14 2019-02-15 Outpatient nullFlavo MNA [id number] Memoria 20:00:00 04:59:59 r Neurology 02 violet Wenden Luca 2019-02-14 2019-02-15 Outpatient nullFlavo MNA [id number] Memoria 20:00:00 04:59:59 r Neurology 02 violet [place]enden [place] 2019-02-14 2019-02-14 Outpatient VIRGILIO Espinal SANDRASCHFLORA [id number] 15:00:00 23:59:59 Malcom Serge Graham 2019-02-14 2019-02-14 Outpatient MHIE TYRA [id number] Memoria 15:00:00 15:00:00 02 violet Luca 2018-12-24 2018-12-25 Outpatient nullFlavo MNA [id number] Memoria 20:15:00 04:59:59 r Neurology 03 l Nik Harringtonann 2018-12-24 2018-12-25 Outpatient nullFlavo MNA [id number] Memoria 20:15:00 04:59:59 r Neurology 03 l Nik Harringtonann 2018-12-24 2018-12-24 Outpatient DIMA EspinalAKSCHER MISCHER [id number] 15:15:00 23:59:59 Malcom 03 Santos 2018-12-24 2018-12-24 Outpatient MHIE MHIE [id number] Memoria 15:15:00 15:15:00 03 violet Luca 2018-12-20 2018-12-21 Outpatient nullFlavo MNA [id number] Memoria 18:45:00 04:59:59 r Neurology 01 l Nik [place] 2018-12-20 2018-12-21 Outpatient nullFlavo MNA [id number] Memoria 18:45:00 04:59:59 r Neurology 01 Wenden [place] 2018-12-20 2018-12-20 Outpatient Kylie [facility] [id number] 13:45:00 23:59:59 Malcom Santos 2018-12-20 2018-12-20 Outpatient MHIE MHIE [id number] Memoria 13:45:00 13:45:00 01 violet [place] 2018-11-22 2018-11-23 Outpatient nullFlavo MNA [id number] Memoria 19:45:00 04:59:59 r Neurology 00 l Nik [place] 2018-11-22 2018-11-23 Outpatient nullFlavo MNA [id number] Memoria 19:45:00 04:59:59 r Neurology 00 l Nik Luca 2018-11-22 2018-11-22 Outpatient Kylie [facility] [place] [id number] 14:45:00 23:59:59 Malcom 00 [place] 2018-11-22 2018-11-22 Outpatient MHIE MHIE [id number] Memoria 14:45:00 14:45:00 00 [facility] Results Test Description Test Time Test Comments Results Result Comments Source LABORATORY 2020-02-18 17:38:00 Test Item Value Reference Range Interpretation Comme nts Results (test code = Results) Reported (02/18/20 12:38 PM) [id number] 17:38:00 Test Item Value Reference Range Interpretation Comments White Blood Count (test code = White 6.4 3.7-10.4 Blood Count) [facility]EdtnkvwXHRGSDKKRA9986-03-53 17:38:00 Test Item Value Reference Range Interpretation Comments Red Blood Cell Count (test code = Red 4.37 4.20-5.40 Blood Cell Count) [facility] CenterWvaczllAZPQKFAKYN7757-98-59 17:38:00 Test Item Value Reference Range Interpretation Comments Hemoglobin (test code = Hemoglobin) 12.7 12.0-16.0 [facility] CenterTatkrncJSHDGNGPXA6309-54-06 17:38:00 Test Item Value Reference Range Interpretation Comments Hematocrit (test code = Hematocrit) 38.3 36.0-48.0 [facility] CenterBkogpsgDOKWDBOEHP7662-32-74 17:38:00 Test Item Value Reference Range Interpretation Comments MCV (test code = MCV) 87.5 80.0-98.0 [facility] CenterJfurljzYEKJMOZMUF8508-03-96 17:38:00 Test Item Value Reference Range Interpretation Comments MCH (test code = MCH) 29.2 pg 27.0-31.0 [facility] CenterRwdzbsjOBKEAXKIWA6779-95-25 17:38:00 Test Item Value Reference Range Interpretation Comments MCHC (test code = MCHC) 33.3 32.0-36.0 [facility] CenterTcrcadtITJVYDNIQA5550-92-01 17:38:00 Test Item Value Reference Range Interpretation Comments RDW (test code = RDW) 14.2 11.5-14.5 [facility] CenterYcsdyysVEYANITTME3466-16-67 17:38:00 Test Item Value Reference Range Interpretation Comments Platelet (test code = Platelet) 300 133-450 [facility] CenterBsckrzuJGKRCNNLSZ1829-70-33 17:38:00 Test Item Value Reference Range Interpretation Comments MPV (test code = MPV) 8.3 7.4-10.4 [facility] CenterYlovgiqVISCZKWMOI3338-50-72 17:38:00 Test Item Value Reference Range Interpretation Comments NRBCs # (test code = NRBCs #) 0.1 0.4-2.2 [facility] CenterAglgkfyTOFYUXSYXP1692-81-02 17:38:00 Test Item Value Reference Range Interpretation Comments Results (test code = Reported (02/18/20 12:38 Results) PM) [facility] CenterXwxemwyGQXRYOFFYX5871-31-34 17:38:00 Test Item Value Reference Range Interpretation Comments Neutrophil % (test code = Neutrophil %) 62.2 45.0-75.0 [facility] CenterNtqwqhrQMOOZSTMSO1776-45-97 17:38:00 Test Item Value Reference Range Interpretation Comments Monocyte % (test code = Monocyte %) 6.8 2.0-12.0 [facility] CenterOxmdxetJLERSJATOI7720-15-38 17:38:00 Test Item Value Reference Range Interpretation Comments Lymphocyte % (test code = Lymphocyte %) 26.9 20.0-40.0 [facility] CenterNapgbzqCEHTRUAALN2480-62-04 17:38:00 Test Item Value Reference Range Interpretation Comments Eosinophil # (test code 3.6 See_Comment [Au tomated message] The = Eosinophil #) system which generated this result tra nsmitted reference range : <=4.0. The reference r karan was not used to int erpret this result as normal/abnormal . [facility] CenterPqdziwrSWQNIZLLJC5145-02-59 17:38:00 Test Item Value Reference Range Interpretation Comments Basophil % (test code = 0.5 See_Comment [Au tomated message] The Basophil %) system which ge nerated this result tra nsmitted reference range : <=1.0. The reference r karan was not used to int erpret this result as normal/abnormal . [facility] CenterVyzlwkuGNRMPMKLJY5329-27-17 17:38:00 Test Item Value Reference Range Interpretation Comments Neutrophil # (test code = Neutrophil #) 4.0 1.5-8.1 [facility] CenterRwkmlydHWGBDATVDZ6716-46-92 17:38:00 Test Item Value Reference Range Interpretation Comments Lymphocyte # (test code = Lymphocyte #) 1.7 1.0-5.5 [facility] CenterAadwrhtNATEUKXICC0301-11-02 17:38:00 Test Item Value Reference Range Interpretation Comments Monocyte # (test code = 0.4 See_Comment [Au tomated message] The Monocyte #) system which ge nerated this result tra nsmitted reference range : <=0.8. The reference r karan was not used to int erpret this result as normal/abnormal . [facility] CenterVwrnvwvGETWAETLKG8694-88-92 17:38:00 Test Item Value Reference Range Interpretation Comments Eosinophil % (test code 0.2 See_Comment [Au tomated message] The = Eosinophil %) system which generated this result tra nsmitted reference range : <=0.5. The reference r karan was not used to int erpret this result as normal/abnormal . [facility] CenterQexmdojZWPSFPELIQ6358-57-72 17:38:00 Test Item Value Reference Range Interpretation Comments Results (test code = Reported (02/18/20 12:38 Results) PM) [place]140-08-05 17:38:00 Test Item Value Reference Range Interpretation Comments Glucose Lvl (test code = Glucose Lvl) 89 70-99 [facility] CenterHtttzzcCOFNWOPZQV7703-25-74 17:38:00 Test Item Value Reference Range Interpretation Comments BUN (test code = BUN) 12 7-22 [facility] CenterBseiqncYCVFXSYHBC0568-67-42 17:38:00 Test Item Value Reference Range Interpretation Comments Creatinine (test code = Creatinine) 0.79 0.50-1.40 [facility] CenterGwtxwylTXBMWGANGA1953-02-38 17:38:00 Test Item Value Reference Range Interpretation Comments Sodium Level (test code = Sodium Level) 141 135-145 [facility] CenterGmbjxezGOJQSAKWRW2323-05-88 17:38:00 Test Item Value Reference Range Interpretation Comments Potassium Level (test code = Potassium 4.5 3.5-5.1 Level) [facility] CenterBivlcmjRCRGCEVIEE5042-44-35 17:38:00 Test Item Value Reference Range Interpretation Comments Chloride Level (test code = Chloride 108 95-109 Level) [facility] CenterLdnycowGBDIOBJGRS4389-58-60 17:38:00 Test Item Value Reference Range Interpretation Comments Total Carbon Dioxide Level (test code = 24 24-32 Total Carbon Dioxide Level) [facility] CenterZftwtjsMKTCTPBBZK9848-72-18 17:38:00 Test Item Value Reference Range Interpretation Comments AGAP (test code = AGAP) 13.5 10.0-20.0 [place]140-08-05 17:38:00 Test Item Value Reference Range Interpretation Comments Calcium Level (test code = Calcium 9.5 8.5-10.5 Level) [facility] CenterFrfqmxxAXGWEFMDBJ0565-27-75 17:38:00 Test Item Value Reference Range Interpretation Comments eGFR (test code = eGFR) 92 [facility] CenterLkjgbyzZKFEKPZDLS0745-59-50 17:38:00 Test Item Value Reference Range Interpretation Comments Results (test code = Reported (02/18/20 12:38 Results) PM) [place]140-08-05 17:38:00 Test Item Value Reference Range Interpretation Comments White Blood Count (test code = White 6.4 3.7-10.4 Blood Count) [facility] CenterVexheqhNGIGNIPEWH3123-35-45 17:38:00 Test Item Value Reference Range Interpretation Comments Red Blood Cell Count (test code = Red 4.37 4.20-5.40 Blood Cell Count) [facility] CenterZjvljzbBDKQVUBLVT0042-86-57 17:38:00 Test Item Value Reference Range Interpretation Comments Hemoglobin (test code = Hemoglobin) 12.7 12.0-16.0 [facility] CenterAbvxldySKODHDGEPH0170-04-40 17:38:00 Test Item Value Reference Range Interpretation Comments Hematocrit (test code = Hematocrit) 38.3 36.0-48.0 [place]140-08-05 17:38:00 Test Item Value Reference Range Interpretation Comments MCV (test code = MCV) 87.5 80.0-98.0 [facility] CenterUusawvaPMXWVSRFTQ8812-04-62 17:38:00 Test Item Value Reference Range Interpretation Comments MCH (test code = MCH) 29.2 pg 27.0-31.0 [facility] CenterCpyaesyTVYPCPUDDY2085-87-33 17:38:00 Test Item Value Reference Range Interpretation Comments MCHC (test code = MCHC) 33.3 32.0-36.0 [facility] CenterBdphcmsKRVGXNNYIV5774-43-07 17:38:00 Test Item Value Reference Range Interpretation Comments RDW (test code = RDW) 14.2 11.5-14.5 [facility] CenterTikjfxpWVJEPBNTHU4126-22-95 17:38:00 Test Item Value Reference Range Interpretation Comments Platelet (test code = Platelet) 300 133-450 [facility] CenterYliizkrFEZMOXVVVV6719-39-19 17:38:00 Test Item Value Reference Range Interpretation Comments MPV (test code = MPV) 8.3 7.4-10.4 [facility] CenterJujtpcaUACAPOZSNC6875-38-19 17:38:00 Test Item Value Reference Range Interpretation Comments NRBCs # (test code = NRBCs #) 0.1 0.4-2.2 [facility] CenterAjkepizIVJXMQOIKX4179-01-34 17:38:00 Test Item Value Reference Range Interpretation Comments Results (test code = Reported (02/18/20 12:38 Results) PM) [facility] CenterCfwxhpjEYSQJDQLLI6639-88-57 17:38:00 Test Item Value Reference Range Interpretation Comments Neutrophil % (test code = Neutrophil %) 62.2 45.0-75.0 [facility] CenterOmamjguLYOBROWHCG4501-47-41 17:38:00 Test Item Value Reference Range Interpretation Comments Monocyte % (test code = Monocyte %) 6.8 2.0-12.0 [facility] CenterElqczbsOBJWPIVZWO7661-21-00 17:38:00 Test Item Value Reference Range Interpretation Comments Lymphocyte % (test code = Lymphocyte %) 26.9 20.0-40.0 [facility] CenterLorrbukFCXHTMLIDV2378-16-12 17:38:00 Test Item Value Reference Range Interpretation Comments Eosinophil # (test code 3.6 See_Comment [Au tomated message] The = Eosinophil #) system which generated this result tra nsmitted reference range : <=4.0. The reference r karan was not used to int erpret this result as normal/abnormal . [facility] CenterCsqyddrDFDNJBXHAH6053-06-61 17:38:00 Test Item Value Reference Range Interpretation Comments Basophil % (test code = 0.5 See_Comment [Au tomated message] The Basophil %) system which ge nerated this result tra nsmitted reference range : <=1.0. The reference r karan was not used to int erpret this result as normal/abnormal . [facility] CenterHlrabtlUTAANXMIYN1601-38-55 17:38:00 Test Item Value Reference Range Interpretation Comments Neutrophil # (test code = Neutrophil #) 4.0 1.5-8.1 [facility] CenterIhrngteBJFFEBTPVA6111-65-40 17:38:00 Test Item Value Reference Range Interpretation Comments Lymphocyte # (test code = Lymphocyte #) 1.7 1.0-5.5 [facility] CenterJukjctnAKQMWTGWHP6057-97-48 17:38:00 Test Item Value Reference Range Interpretation Comments Monocyte # (test code = 0.4 See_Comment [Au tomated message] The Monocyte #) system which ge nerated this result tra nsmitted reference range : <=0.8. The reference r karan was not used to int erpret this result as normal/abnormal . [facility] CenterDfexpmcVQSGNRLTBO3596-77-05 17:38:00 Test Item Value Reference Range Interpretation Comments Eosinophil % (test code 0.2 See_Comment [Au tomated message] The = Eosinophil %) system which generated this result tra nsmitted reference range : <=0.5. The reference r karan was not used to int erpret this result as normal/abnormal . [facility] CenterIzcpiksCPVFAFLNYF2305-39-33 17:38:00 Test Item Value Reference Range Interpretation Comments Results (test code = Reported (02/18/20 12:38 Results) PM) [facility] CenterPmasnlwUDUQCIBDZQ5335-43-17 17:38:00 Test Item Value Reference Range Interpretation Comments Glucose Lvl (test code = Glucose Lvl) 89 70-99 [facility] CenterNidrmjaCAWCNKCUJZ9357-48-22 17:38:00 Test Item Value Reference Range Interpretation Comments BUN (test code = BUN) 12 7-22 [facility] CenterKrckdmrWWRQDMWBFZ2711-44-22 17:38:00 Test Item Value Reference Range Interpretation Comments Creatinine (test code = Creatinine) 0.79 0.50-1.40 [facility] CenterPnnwexnTSAPUNPGEI3618-43-41 17:38:00 Test Item Value Reference Range Interpretation Comments Sodium Level (test code = Sodium Level) 141 135-145 [facility] CenterNuzymozSAWSQLPOCZ9464-78-47 17:38:00 Test Item Value Reference Range Interpretation Comments Potassium Level (test code = Potassium 4.5 3.5-5.1 Level) [facility] CenterZvlufwiXKPESVQOBZ4059-87-51 17:38:00 Test Item Value Reference Range Interpretation Comments Chloride Level (test code = Chloride 108 95-109 Level) [facility] CenterYsrnhxbLAGJEWLEUJ7194-74-86 17:38:00 Test Item Value Reference Range Interpretation Comments Total Carbon Dioxide Level (test code = 24 24-32 Total Carbon Dioxide Level) [facility] CenterRdutudlTBDDPXPSBW1463-45-63 17:38:00 Test Item Value Reference Range Interpretation Comments AGAP (test code = AGAP) 13.5 10.0-20.0 [facility] CenterGznzbtoOKPVQLWIWL1987-18-40 17:38:00 Test Item Value Reference Range Interpretation Comments Calcium Level (test code = Calcium 9.5 8.5-10.5 Level) [facility] CenterAofdfhgTQOPBZWJZW0708-40-15 17:38:00 Test Item Value Reference Range Interpretation Comments eGFR (test code = eGFR) 92 [facility] CenterPtihmvlDWZTDYLPDU5454-25-15 17:38:00 Test Item Value Reference Range Interpretation Comments Results (test code = Reported (02/18/20 12:38 Results) PM) [place] [address]140-08-05 17:38:00 Test Item Value Reference Range Interpretation Comments White Blood Count (test code = White 6.4 3.7-10.4 Blood Count) [facility] CenterWgxpspkUQRVHCHDJW5881-91-73 17:38:00 Test Item Value Reference Range Interpretation Comments Red Blood Cell Count (test code = Red 4.37 4.20-5.40 Blood Cell Count) [place]140-08-05 17:38:00 Test Item Value Reference Range Interpretation Comments Hemoglobin (test code = Hemoglobin) 12.7 12.0-16.0 [place]140-08-05 17:38:00 Test Item Value Reference Range Interpretation Comments Hematocrit (test code = Hematocrit) 38.3 36.0-48.0 [facility] CenterUuzmqwhJRALHAWZSM5479-10-70 17:38:00 Test Item Value Reference Range Interpretation Comments MCV (test code = MCV) 87.5 80.0-98.0 [place]140-08-05 17:38:00 Test Item Value Reference Range Interpretation Comments MCH (test code = MCH) 29.2 pg 27.0-31.0 [facility] CenterTxlqnwtFBHEWMFSYQ5738-46-68 17:38:00 Test Item Value Reference Range Interpretation Comments MCHC (test code = MCHC) 33.3 32.0-36.0 [facility] CenterGofqmgdTEDFRALLHE3363-53-15 17:38:00 Test Item Value Reference Range Interpretation Comments RDW (test code = RDW) 14.2 11.5-14.5 [place]140-08-05 17:38:00 Test Item Value Reference Range Interpretation Comments Platelet (test code = Platelet) 300 133-450 [facility] CenterOyfvxlrCLHTOHJYVP0185-90-35 17:38:00 Test Item Value Reference Range Interpretation Comments MPV (test code = MPV) 8.3 7.4-10.4 [place]140-08-05 17:38:00 Test Item Value Reference Range Interpretation Comments NRBCs # (test code = NRBCs #) 0.1 0.4-2.2 [facility] CenterSlewxusRKGTSAFYTO7710-08-88 17:38:00 Test Item Value Reference Range Interpretation Comments Results (test code = Reported (02/18/20 12:38 Results) PM) [facility] CenterPzutdxmGMLKNQUGAH1178-09-48 17:38:00 Test Item Value Reference Range Interpretation Comments Neutrophil % (test code = Neutrophil %) 62.2 45.0-75.0 [facility] CenterRutqjxvOPIEKIHOLC8576-29-20 17:38:00 Test Item Value Reference Range Interpretation Comments Monocyte % (test code = Monocyte %) 6.8 2.0-12.0 [facility] CenterWftusxbNTEQUILUGH5163-07-38 17:38:00 Test Item Value Reference Range Interpretation Comments Lymphocyte % (test code = Lymphocyte %) 26.9 20.0-40.0 [facility] CenterJmhhqktRWJWRFPGGP2373-90-80 17:38:00 Test Item Value Reference Range Interpretation Comments Eosinophil # (test code 3.6 See_Comment [Au tomated message] The = Eosinophil #) system which generated this result tra nsmitted reference range : <=4.0. The reference r karan was not used to int erpret this result as normal/abnormal . [facility] CenterJvkpbpuMZELBMWKYK2232-69-82 17:38:00 Test Item Value Reference Range Interpretation Comments Basophil % (test code = 0.5 See_Comment [Au tomated message] The Basophil %) system which ge nerated this result tra nsmitted reference range : <=1.0. The reference r karan was not used to int erpret this result as normal/abnormal . [facility] CenterNwvozobSIPHKRPKRZ6939-13-83 17:38:00 Test Item Value Reference Range Interpretation Comments Neutrophil # (test code = Neutrophil #) 4.0 1.5-8.1 [facility] CenterEawvfonOLBWAJKOWO0601-03-87 17:38:00 Test Item Value Reference Range Interpretation Comments Lymphocyte # (test code = Lymphocyte #) 1.7 1.0-5.5 [facility] CenterSyntflnDZTCKSDSDO0091-04-51 17:38:00 Test Item Value Reference Range Interpretation Comments Monocyte # (test code = 0.4 See_Comment [Au tomated message] The Monocyte #) system which ge nerated this result tra nsmitted reference range : <=0.8. The reference r karan was not used to int erpret this result as normal/abnormal . [facility] CenterRbhcmiwVBDBQUTTMH5394-18-32 17:38:00 Test Item Value Reference Range Interpretation Comments Eosinophil % (test code 0.2 See_Comment [Au tomated message] The = Eosinophil %) system which generated this result tra nsmitted reference range : <=0.5. The reference r karan was not used to int erpret this result as normal/abnormal . [facility] CenterUmmcvosSIZHPZEYID5422-51-52 17:38:00 Test Item Value Reference Range Interpretation Comments Results (test code = Reported (02/18/20 12:38 Results) PM) [facility] CenterFqyvptpXNLLQXQIOQ9981-80-22 17:38:00 Test Item Value Reference Range Interpretation Comments Glucose Lvl (test code = Glucose Lvl) 89 70-99 [facility] CenterOegutkpDRQXGRCGHL6724-61-11 17:38:00 Test Item Value Reference Range Interpretation Comments BUN (test code = BUN) 12 7-22 [facility] CenterVbvronxQEIVJEAUDE5849-39-72 17:38:00 Test Item Value Reference Range Interpretation Comments Creatinine (test code = Creatinine) 0.79 0.50-1.40 [facility] CenterUqmuhmzZWLMMQFUMJ3242-54-08 17:38:00 Test Item Value Reference Range Interpretation Comments Sodium Level (test code = Sodium Level) 141 135-145 [facility] CenterHqhjewjQKMSRTNQAQ3550-44-96 17:38:00 Test Item Value Reference Range Interpretation Comments Potassium Level (test code = Potassium 4.5 3.5-5.1 Level) [facility] CenterJyirlqsFDFFVOWGHX3240-07-57 17:38:00 Test Item Value Reference Range Interpretation Comments Chloride Level (test code = Chloride 108 95-109 Level) [facility] CenterIhdchlyWFKHREMZKT2728-64-88 17:38:00 Test Item Value Reference Range Interpretation Comments Total Carbon Dioxide Level (test code = 24 24-32 Total Carbon Dioxide Level) [facility] CenterKkuxopcJJMCLEGMQZ0849-29-78 17:38:00 Test Item Value Reference Range Interpretation Comments AGAP (test code = AGAP) 13.5 10.0-20.0 [facility] CenterGtevgvjBXYFWUBUZI2864-94-26 17:38:00 Test Item Value Reference Range Interpretation Comments Calcium Level (test code = Calcium 9.5 8.5-10.5 Level) [facility] CenterBkinyujPVNCUQWWBS8992-57-95 17:38:00 Test Item Value Reference Range Interpretation Comments eGFR (test code = eGFR) 92 [place] [address]-08-05 17:38:00 Test Item Value Reference Range Interpretation Comments Results (test code = Reported (02/18/20 12:38 Results) PM) [address]08-05 17:38:00 Test Item Value Reference Range Interpretation Comments White Blood Count (test code = White 6.4 3.7-10.4 Blood Count) [place] [address]140-08-05 17:38:00 Test Item Value Reference Range Interpretation Comments Red Blood Cell Count (test code = Red 4.37 4.20-5.40 Blood Cell Count) [facility] CenterVfbiiifUAHEQCSUGA0938-04-58 17:38:00 Test Item Value Reference Range Interpretation Comments Hemoglobin (test code = Hemoglobin) 12.7 12.0-16.0 [place] [address]-08-05 17:38:00 Test Item Value Reference Range Interpretation Comments Hematocrit (test code = Hematocrit) 38.3 36.0-48.0 [place]140-08-05 17:38:00 Test Item Value Reference Range Interpretation Comments MCV (test code = MCV) 87.5 80.0-98.0 [place] [address]-08-05 17:38:00 Test Item Value Reference Range Interpretation Comments MCH (test code = MCH) 29.2 pg 27.0-31.0 [place] [address]-08-05 17:38:00 Test Item Value Reference Range Interpretation Comments MCHC (test code = MCHC) 33.3 32.0-36.0 [place] [address]-08-05 17:38:00 Test Item Value Reference Range Interpretation Comments RDW (test code = RDW) 14.2 11.5-14.5 [place] [address]-08-05 17:38:00 Test Item Value Reference Range Interpretation Comments Platelet (test code = Platelet) 300 133-450 [place] 152140-08-05 17:38:00 Test Item Value Reference Range Interpretation Comments MPV (test code = MPV) 8.3 7.4-10.4 [facility]SVPHUXKD7296[facility] 17:38:00 Test Item Value Reference Range Interpretation Comments NRBCs # (test code = NRBCs #) 0.1 0.4-2.2 [facility]ocrHQNKIRVIXR044[facility]91 17:38:00 Test Item Value Reference Range Interpretation Comments Results (test code = Reported (02/18/20 12:38 Results) PM) [facility] CenterLeqzqdrDQTEKNFVFC3812-94-12 17:38:00 Test Item Value Reference Range Interpretation Comments Neutrophil % (test code = Neutrophil %) 62.2 45.0-75.0 [facility]OslpremXVLUTRLCNS0324-10-66 17:38:00 Test Item Value Reference Range Interpretation Comments Monocyte % (test code = Monocyte %) 6.8 2.0-12.0 [facility]OtwdzvxVEKACKPXTW4816-18-23 17:38:00 Test Item Value Reference Range Interpretation Comments Lymphocyte % (test code = Lymphocyte %) 26.9 20.0-40.0 [facility] HospitalCpzweswZQDTJHSPZK8060-27-52 17:38:00 Test Item Value Reference Range Interpretation Comments Eosinophil # (test code 3.6 See_Comment [Au tomated message] The = Eosinophil #) system which generated this result tra nsmitted reference range : <=4.0. The reference r karan was not used to int erpret this result as normal/abnormal . [facility]UaydlhsGZQIOTPCNA6946-75-70 17:38:00 Test Item Value Reference Range Interpretation Comments Basophil % (test code = 0.5 See_Comment [Au tomated message] The Basophil %) system which ge nerated this result tra nsmitted reference range : <=1.0. The reference r karan was not used to int erpret this result as normal/abnormal . [facility]PpjmndfSMGCXWSBTI4250-58-68 17:38:00 Test Item Value Reference Range Interpretation Comments Neutrophil # (test code = Neutrophil #) 4.0 1.5-8.1 [facility]PhierxuZZXZFYYFBB1872-96-22 17:38:00 Test Item Value Reference Range Interpretation Comments Lymphocyte # (test code = Lymphocyte #) 1.7 1.0-5.5 [facility] CenterGltbrwwTLPRCCOGPE6416-24-79 17:38:00 Test Item Value Reference Range Interpretation Comments Monocyte # (test code = 0.4 See_Comment [Au tomated message] The Monocyte #) system which ge nerated this result tra nsmitted reference range : <=0.8. The reference r karan was not used to int erpret this result as normal/abnormal . [facility] CenterRzxdfcqJJCZKGZDMU0820-30-45 17:38:00 Test Item Value Reference Range Interpretation Comments Eosinophil % (test code 0.2 See_Comment [Au tomated message] The = Eosinophil %) system which generated this result tra nsmitted reference range : <=0.5. The reference r karan was not used to int erpret this result as normal/abnormal . [facility] CenterYeqtoipVVPOKGFRJO7621-46-47 17:38:00 Test Item Value Reference Range Interpretation Comments Results (test code = Reported (02/18/20 12:38 Results) PM) [facility] CenterAaugiwhZGSHSZEVSZ9242-18-66 17:38:00 Test Item Value Reference Range Interpretation Comments Glucose Lvl (test code = Glucose Lvl) 89 70-99 [facility] CenterHzowdggNKBSYGHYVG2086-50-72 17:38:00 Test Item Value Reference Range Interpretation Comments BUN (test code = BUN) 12 7-22 [facility] CenterKsflyalQRHKLKVWWF8706-45-05 17:38:00 Test Item Value Reference Range Interpretation Comments Creatinine (test code = Creatinine) 0.79 0.50-1.40 [facility] CenterZdprhjwOPEAKRUOTD5108-88-23 17:38:00 Test Item Value Reference Range Interpretation Comments Sodium Level (test code = Sodium Level) 141 135-145 [facility] CenterWodayfwHHEEBDVHIW0502-29-13 17:38:00 Test Item Value Reference Range Interpretation Comments Potassium Level (test code = Potassium 4.5 3.5-5.1 Level) [facility] CenterFccsvjsLJMHGRMXZH8576-80-51 17:38:00 Test Item Value Reference Range Interpretation Comments Chloride Level (test code = Chloride 108 95-109 Level) [facility] CenterBcwqfisWEZKRKTWEQ4029-17-26 17:38:00 Test Item Value Reference Range Interpretation Comments Total Carbon Dioxide Level (test code = 24 24-32 Total Carbon Dioxide Level) [facility] CenterTierfvgBOXUWUUELC0801-68-37 17:38:00 Test Item Value Reference Range Interpretation Comments AGAP (test code = AGAP) 13.5 10.0-20.0 [facility] CenterTiduooaIIHJBASXKH0220-31-67 17:38:00 Test Item Value Reference Range Interpretation Comments Calcium Level (test code = Calcium 9.5 8.5-10.5 Level) [place]140-08-05 17:38:00 Test Item Value Reference Range Interpretation Comments eGFR (test code = eGFR) 92 [place] 152140-08-05 17:38:00 Test Item Value Reference Range Interpretation Comments Results (test code = Reported (02/18/20 12:38 Results) PM) [place] [address]140-08-05 17:38:00 Test Item Value Reference Range Interpretation Comments White Blood Count (test code = White 6.4 3.7-10.4 Blood Count) [place] [address]140-08-05 17:38:00 Test Item Value Reference Range Interpretation Comments Red Blood Cell Count (test code = Red 4.37 4.20-5.40 Blood Cell Count) [facility] CenterPamqbjkGTDDNKXBQR6551-37-91 17:38:00 Test Item Value Reference Range Interpretation Comments Hemoglobin (test code = Hemoglobin) 12.7 12.0-16.0 [place] [address]140-08-05 17:38:00 Test Item Value Reference Range Interpretation Comments Hematocrit (test code = Hematocrit) 38.3 36.0-48.0 [facility] CenterUpeevfsXIYSZIQLWM4409-73-47 17:38:00 Test Item Value Reference Range Interpretation Comments MCV (test code = MCV) 87.5 80.0-98.0 [place] 152140-08-05 17:38:00 Test Item Value Reference Range Interpretation Comments MCH (test code = MCH) 29.2 pg 27.0-31.0 [place] [address]-08-05 17:38:00 Test Item Value Reference Range Interpretation Comments MCHC (test code = MCHC) 33.3 32.0-36.0 [place] [address]-08-05 17:38:00 Test Item Value Reference Range Interpretation Comments RDW (test code = RDW) 14.2 11.5-14.5 [place] 152140-08-05 17:38:00 Test Item Value Reference Range Interpretation Comments Platelet (test code = Platelet) 300 133-450 [facility] CenterVzuzhnrVQHFEKWSZT5386-14-24 17:38:00 Test Item Value Reference Range Interpretation Comments MPV (test code = MPV) 8.3 7.4-10.4 [facility] CenterQucranjJJZDWOSQXJ0056-21-55 17:38:00 Test Item Value Reference Range Interpretation Comments NRBCs # (test code = NRBCs #) 0.1 0.4-2.2 [facility] CenterMmonkgqZQDLKJNDQO3387-98-14 17:38:00 Test Item Value Reference Range Interpretation Comments Results (test code = Reported (02/18/20 12:38 Results) PM) [facility] CenterSvfuwneQRKUIHZWQA8786-78-46 17:38:00 Test Item Value Reference Range Interpretation Comments Neutrophil % (test code = Neutrophil %) 62.2 45.0-75.0 [facility] CenterItyyhzmTKDHCTZLBW9714-10-77 17:38:00 Test Item Value Reference Range Interpretation Comments Monocyte % (test code = Monocyte %) 6.8 2.0-12.0 [facility] CenterGgffjvsZYTQQMWCMF4128-90-84 17:38:00 Test Item Value Reference Range Interpretation Comments Lymphocyte % (test code = Lymphocyte %) 26.9 20.0-40.0 [facility] CenterKptvngrRDARLPZBCL2778-45-88 17:38:00 Test Item Value Reference Range Interpretation Comments Eosinophil # (test code 3.6 See_Comment [Au tomated message] The = Eosinophil #) system which generated this result tra nsmitted reference range : <=4.0. The reference r karan was not used to int erpret this result as normal/abnormal . [facility] CenterUskmdzcGYYLWXDDFE5527-46-17 17:38:00 Test Item Value Reference Range Interpretation Comments Basophil % (test code = 0.5 See_Comment [Au tomated message] The Basophil %) system which ge nerated this result tra nsmitted reference range : <=1.0. The reference r karan was not used to int erpret this result as normal/abnormal . [facility] CenterBdecjvzLQNWRXODHG3414-62-81 17:38:00 Test Item Value Reference Range Interpretation Comments Neutrophil # (test code = Neutrophil #) 4.0 1.5-8.1 [facility] CenterIwbdxctYAOZPIXOJJ5917-59-37 17:38:00 Test Item Value Reference Range Interpretation Comments Lymphocyte # (test code = Lymphocyte #) 1.7 1.0-5.5 [facility] CenterVoqxqhkPIZUNREHBR0593-41-95 17:38:00 Test Item Value Reference Range Interpretation Comments Monocyte # (test code = 0.4 See_Comment [Au tomated message] The Monocyte #) system which ge nerated this result tra nsmitted reference range : <=0.8. The reference r karan was not used to int erpret this result as normal/abnormal . [facility] CenterCmitrlbYKLVSZYXMJ7842-13-16 17:38:00 Test Item Value Reference Range Interpretation Comments Eosinophil % (test code 0.2 See_Comment [Au tomated message] The = Eosinophil %) system which generated this result tra nsmitted reference range : <=0.5. The reference r karan was not used to int erpret this result as normal/abnormal . [facility] CenterGrcsyypWQZAUSWACE8784-40-21 17:38:00 Test Item Value Reference Range Interpretation Comments Results (test code = Reported (02/18/20 12:38 Results) PM) [facility] CenterEenfbgaVNSNQUHDNE1575-80-04 17:38:00 Test Item Value Reference Range Interpretation Comments Glucose Lvl (test code = Glucose Lvl) 89 70-99 [facility] CenterYpaxvndCDUBAOAWKQ0596-50-80 17:38:00 Test Item Value Reference Range Interpretation Comments BUN (test code = BUN) 12 7-22 [facility] CenterDcjzgltIALIFDBQGC7969-34-65 17:38:00 Test Item Value Reference Range Interpretation Comments Creatinine (test code = Creatinine) 0.79 0.50-1.40 [facility] CenterJumcwwvZJANLPDJYS3263-33-26 17:38:00 Test Item Value Reference Range Interpretation Comments Sodium Level (test code = Sodium Level) 141 135-145 [facility] CenterXroqtugDLDRPLDSVQ7399-07-53 17:38:00 Test Item Value Reference Range Interpretation Comments Potassium Level (test code = Potassium 4.5 3.5-5.1 Level) [facility] CenterDdehfcuRIZZTBSIFH9062-48-73 17:38:00 Test Item Value Reference Range Interpretation Comments Chloride Level (test code = Chloride 108 95-109 Level) [facility] CenterPbkkhlvETENLJPWOP4008-70-10 17:38:00 Test Item Value Reference Range Interpretation Comments Total Carbon Dioxide Level (test code = 24 24-32 Total Carbon Dioxide Level) [facility] CenterKiimhljZYPWOJPBJN8756-61-40 17:38:00 Test Item Value Reference Range Interpretation Comments AGAP (test code = AGAP) 13.5 10.0-20.0 [place] [address]-08-05 17:38:00 Test Item Value Reference Range Interpretation Comments Calcium Level (test code = Calcium 9.5 8.5-10.5 Level) [place] 152140-08-05 17:38:00 Test Item Value Reference Range Interpretation Comments eGFR (test code = eGFR) 92 [place] 152140-08-05 17:38:00 Test Item Value Reference Range Interpretation Comments Results (test code = Reported (02/18/20 12:38 Results) PM) [address]08-05 17:38:00 Test Item Value Reference Range Interpretation Comments White Blood Count (test code = White 6.4 3.7-10.4 Blood Count) [facility] CenterIrfobevTTRUMMVTSP7530-26-06 17:38:00 Test Item Value Reference Range Interpretation Comments Red Blood Cell Count (test code = Red 4.37 4.20-5.40 Blood Cell Count) [place] 152140-08-05 17:38:00 Test Item Value Reference Range Interpretation Comments Hemoglobin (test code = Hemoglobin) 12.7 12.0-16.0 [place] [address]-08-05 17:38:00 Test Item Value Reference Range Interpretation Comments Hematocrit (test code = Hematocrit) 38.3 36.0-48.0 [place] 152140-08-05 17:38:00 Test Item Value Reference Range Interpretation Comments MCV (test code = MCV) 87.5 80.0-98.0 [place] [address]-08-05 17:38:00 Test Item Value Reference Range Interpretation Comments MCH (test code = MCH) 29.2 pg 27.0-31.0 [place] [address]-08-05 17:38:00 Test Item Value Reference Range Interpretation Comments MCHC (test code = MCHC) 33.3 32.0-36.0 [place] 152140-08-05 17:38:00 Test Item Value Reference Range Interpretation Comments RDW (test code = RDW) 14.2 11.5-14.5 [facility] CenterPlxtguyWPFDOWAPSN3798-89-73 17:38:00 Test Item Value Reference Range Interpretation Comments Platelet (test code = Platelet) 300 133-450 [facility] CenterExgulblZMGVBSBPNT3019-78-73 17:38:00 Test Item Value Reference Range Interpretation Comments MPV (test code = MPV) 8.3 7.4-10.4 [facility] CenterWqcjcfeVSFPUJFRIU9153-19-12 17:38:00 Test Item Value Reference Range Interpretation Comments NRBCs # (test code = NRBCs #) 0.1 0.4-2.2 [facility] CenterUxyoetzCFFNOIDBIE8358-62-61 17:38:00 Test Item Value Reference Range Interpretation Comments Results (test code = Reported (02/18/20 12:38 Results) PM) [facility] CenterOgvzmmnNZMNMEKJOF0472-57-43 17:38:00 Test Item Value Reference Range Interpretation Comments Neutrophil % (test code = Neutrophil %) 62.2 45.0-75.0 [facility] CenterLdzcvaaFXLGCCVLPE1335-88-06 17:38:00 Test Item Value Reference Range Interpretation Comments Monocyte % (test code = Monocyte %) 6.8 2.0-12.0 [facility] CenterXgjeksdWPHGBTHLWQ0553-71-04 17:38:00 Test Item Value Reference Range Interpretation Comments Lymphocyte % (test code = Lymphocyte %) 26.9 20.0-40.0 [facility] CenterNsemogvMEMSCIKLKO7802-69-36 17:38:00 Test Item Value Reference Range Interpretation Comments Eosinophil # (test code 3.6 See_Comment [Au tomated message] The = Eosinophil #) system which generated this result tra nsmitted reference range : <=4.0. The reference r karan was not used to int erpret this result as normal/abnormal . [facility] CenterZdpemepKNVYWLZNES5361-72-42 17:38:00 Test Item Value Reference Range Interpretation Comments Basophil % (test code = 0.5 See_Comment [Au tomated message] The Basophil %) system which ge nerated this result tra nsmitted reference range : <=1.0. The reference r karan was not used to int erpret this result as normal/abnormal . [facility] CenterDxcjxnuLFHWCYLRIQ9579-19-43 17:38:00 Test Item Value Reference Range Interpretation Comments Neutrophil # (test code = Neutrophil #) 4.0 1.5-8.1 [facility] CenterEmixljaAZWJSBZWBI2252-29-06 17:38:00 Test Item Value Reference Range Interpretation Comments Lymphocyte # (test code = Lymphocyte #) 1.7 1.0-5.5 [facility] CenterQbedxpbOGITFQLMVC5064-48-17 17:38:00 Test Item Value Reference Range Interpretation Comments Monocyte # (test code = 0.4 See_Comment [Au tomated message] The Monocyte #) system which ge nerated this result tra nsmitted reference range : <=0.8. The reference r karan was not used to int erpret this result as normal/abnormal . [facility] CenterIeanikoVQOVIDNAXZ9570-71-06 17:38:00 Test Item Value Reference Range Interpretation Comments Eosinophil % (test code 0.2 See_Comment [Au tomated message] The = Eosinophil %) system which generated this result tra nsmitted reference range : <=0.5. The reference r kaarn was not used to int erpret this result as normal/abnormal . [facility] CenterJeqxzjlVPDNDHOMOY6489-54-50 17:38:00 Test Item Value Reference Range Interpretation Comments Results (test code = Reported (02/18/20 12:38 Results) PM) [facility] CenterWywndmtQUTJMHWNRG3956-80-19 17:38:00 Test Item Value Reference Range Interpretation Comments Glucose Lvl (test code = Glucose Lvl) 89 70-99 [facility] CenterKivsywdPYQWHMAHAC3983-39-28 17:38:00 Test Item Value Reference Range Interpretation Comments BUN (test code = BUN) 12 7-22 [facility] CenterYvrixsfXFBFMTZMVR3825-94-63 17:38:00 Test Item Value Reference Range Interpretation Comments Creatinine (test code = Creatinine) 0.79 0.50-1.40 [facility] CenterCrmjqwrJNPIBUJXGT2944-88-79 17:38:00 Test Item Value Reference Range Interpretation Comments Sodium Level (test code = Sodium Level) 141 135-145 [facility] CenterBkfyhbuSXVHTZEACA3018-72-67 17:38:00 Test Item Value Reference Range Interpretation Comments Potassium Level (test code = Potassium 4.5 3.5-5.1 Level) [facility] CenterBhsqutaGLKGKGOQJV0257-46-62 17:38:00 Test Item Value Reference Range Interpretation Comments Chloride Level (test code = Chloride 108 95-109 Level) [facility] CenterSyyxpkgHWEHEJWUST7251-90-33 17:38:00 Test Item Value Reference Range Interpretation Comments Total Carbon Dioxide Level (test code = 24 24-32 Total Carbon Dioxide Level) [place] 152140-08-05 17:38:00 Test Item Value Reference Range Interpretation Comments AGAP (test code = AGAP) 13.5 10.0-20.0 [place] 152140-08-05 17:38:00 Test Item Value Reference Range Interpretation Comments Calcium Level (test code = Calcium 9.5 8.5-10.5 Level) [facility] CenterAolzaqnAQOYUKECUW1645-55-81 17:38:00 Test Item Value Reference Range Interpretation Comments eGFR (test code = eGFR) 92 [place] 152140-08-05 17:38:00 Test Item Value Reference Range Interpretation Comments Results (test code = Reported (02/18/20 12:38 Results) PM) [place] 152140-08-05 17:38:00 Test Item Value Reference Range Interpretation Comments White Blood Count (test code = White 6.4 3.7-10.4 Blood Count) [place] 152140-08-05 17:38:00 Test Item Value Reference Range Interpretation Comments Red Blood Cell Count (test code = Red 4.37 4.20-5.40 Blood Cell Count) [place] [address]-08-05 17:38:00 Test Item Value Reference Range Interpretation Comments Hemoglobin (test code = Hemoglobin) 12.7 12.0-16.0 [place] [address]-08-05 17:38:00 Test Item Value Reference Range Interpretation Comments Hematocrit (test code = Hematocrit) 38.3 36.0-48.0 [place] [address]-08-05 17:38:00 Test Item Value Reference Range Interpretation Comments MCV (test code = MCV) 87.5 80.0-98.0 [address]08-05 17:38:00 Test Item Value Reference Range Interpretation Comments MCH (test code = MCH) 29.2 pg 27.0-31.0 [place] 152140-08-05 17:38:00 Test Item Value Reference Range Interpretation Comments MCHC (test code = MCHC) 33.3 32.0-36.0 [facility] CenterBhqndkhTFEHNWABTF3435-22-74 17:38:00 Test Item Value Reference Range Interpretation Comments RDW (test code = RDW) 14.2 11.5-14.5 [facility] CenterMhhxmefTMSROLAJED8601-77-54 17:38:00 Test Item Value Reference Range Interpretation Comments Platelet (test code = Platelet) 300 133-450 [facility] CenterHububohIFMDJHTSBG2158-96-49 17:38:00 Test Item Value Reference Range Interpretation Comments MPV (test code = MPV) 8.3 7.4-10.4 [place] 152140-08-05 17:38:00 Test Item Value Reference Range Interpretation Comments NRBCs # (test code = NRBCs #) 0.1 0.4-2.2 [facility] CenterKgronvxTDCQRBQOOV3471-64-95 17:38:00 Test Item Value Reference Range Interpretation Comments Results (test code = Reported (02/18/20 12:38 Results) PM) [address]08-05 17:38:00 Test Item Value Reference Range Interpretation Comments Neutrophil % (test code = Neutrophil %) 62.2 45.0-75.0 [place] 152140-08-05 17:38:00 Test Item Value Reference Range Interpretation Comments Monocyte % (test code = Monocyte %) 6.8 2.0-12.0 [place] 152140-08-05 17:38:00 Test Item Value Reference Range Interpretation Comments Lymphocyte % (test code = Lymphocyte %) 26.9 20.0-40.0 [place] 152140-08-05 17:38:00 Test Item Value Reference Range Interpretation Comments Eosinophil # (test code 3.6 See_Comment [Au tomated message] The = Eosinophil #) system which generated this result tra nsmitted reference range : <=4.0. The reference r karan was not used to int erpret this result as normal/abnormal . [place] [address]-08-05 17:38:00 Test Item Value Reference Range Interpretation Comments Basophil % (test code = 0.5 See_Comment [Au tomated message] The Basophil %) system which ge nerated this result tra nsmitted reference range : <=1.0. The reference r karan was not used to int erpret this result as normal/abnormal . [facility] CenterLdpcwpfYZYQBOHDYJ4598-37-72 17:38:00 Test Item Value Reference Range Interpretation Comments Neutrophil # (test code = Neutrophil #) 4.0 1.5-8.1 [facility] CenterJxpqzzmEJNUZUOOIH1596-37-86 17:38:00 Test Item Value Reference Range Interpretation Comments Lymphocyte # (test code = Lymphocyte #) 1.7 1.0-5.5 [facility] CenterDtlpfulJJBDPDHJDP8358-13-44 17:38:00 Test Item Value Reference Range Interpretation Comments Monocyte # (test code = 0.4 See_Comment [Au tomated message] The Monocyte #) system which ge nerated this result tra nsmitted reference range : <=0.8. The reference r karan was not used to int erpret this result as normal/abnormal . [facility] CenterCnvrrtsEZOJGIHYTD2052-09-72 17:38:00 Test Item Value Reference Range Interpretation Comments Eosinophil % (test code 0.2 See_Comment [Au tomated message] The = Eosinophil %) system which generated this result tra nsmitted reference range : <=0.5. The reference r karan was not used to int erpret this result as normal/abnormal . [facility] CenterNquaouiKAPWAWUHCL6377-81-86 17:38:00 Test Item Value Reference Range Interpretation Comments Results (test code = Reported (02/18/20 12:38 Results) PM) [facility] CenterZjiyejrDWCZZEWFJS5640-66-85 17:38:00 Test Item Value Reference Range Interpretation Comments Glucose Lvl (test code = Glucose Lvl) 89 70-99 [facility] CenterIbzalxwTIWGEDQKYH5085-11-53 17:38:00 Test Item Value Reference Range Interpretation Comments BUN (test code = BUN) 12 7-22 [facility] CenterMbaldehKPJZZZAZJR1608-09-06 17:38:00 Test Item Value Reference Range Interpretation Comments Creatinine (test code = Creatinine) 0.79 0.50-1.40 [facility] CenterUhhtrfwWMVIKKPXYL4819-77-13 17:38:00 Test Item Value Reference Range Interpretation Comments Sodium Level (test code = Sodium Level) 141 135-145 [facility] CenterQmtgzcnCRYVHNWVJS8135-98-62 17:38:00 Test Item Value Reference Range Interpretation Comments Potassium Level (test code = Potassium 4.5 3.5-5.1 Level) [facility] CenterYgwjafeXCIUAJLZIZ2801-87-20 17:38:00 Test Item Value Reference Range Interpretation Comments Chloride Level (test code = Chloride 108 95-109 Level) [facility] CenterZyecgjhYDAMZUBLAY3027-93-48 17:38:00 Test Item Value Reference Range Interpretation Comments Total Carbon Dioxide Level (test code = 24 24-32 Total Carbon Dioxide Level) [facility] CenterUjprmllQEHUQTAHDY4059-73-59 17:38:00 Test Item Value Reference Range Interpretation Comments AGAP (test code = AGAP) 13.5 10.0-20.0 [facility] CenterNnzzwugBDEEIRIDGL4450-87-70 17:38:00 Test Item Value Reference Range Interpretation Comments Calcium Level (test code = Calcium 9.5 8.5-10.5 Level) [facility] CenterZdjuzniMJZKWYSBFU0573-13-12 17:38:00 Test Item Value Reference Range Interpretation Comments eGFR (test code = eGFR) 92 [facility]
--- NOTE | 2022-12-29 11:29 | EDPHYS ---
Physician Documentation [facility] Name: Trudi Villavicencio Age: 47 yrs Sex: Female : 1975 Arrival Date: 12/29/2022 Time: 10:44 Bed IW1 Private MD: ED Physician Leandro Valentin HPI: 12/29 11:28 This 47 yrs old Female presents to ER via Ambulatory with complaints of Pain All Over. jr11 11:28 Patient is a 47-year-old female with history of acute on chronic neck pain back pain, jr11 states that she took ibuprofen yesterday, did not get significant relief, so she decided to come in for evaluation. Patient states that she has had prior visits, no trauma no saddle anesthesia no neuro weakness anywhere. Patient is here for pain relief.. Historical: - Allergies: 11:03 Aspirin; ld1 11:03 Codeine; ld1 11:03 Topamax; ld1 11:03 tramadol; ld1 - PMHx: 11:03 gastritis; neuropathy; osteoarthritis; Radiculopathy; ld1 - PSHx: 11:03 breast reduction; ld1 - Immunization history:: Adult Immunizations up to date, Client reports receiving the 2nd dose of the Covid vaccine. - Social history:: Smoking status: Patient denies any tobacco usage or history of. Patient/guardian denies using alcohol. ROS: 11:28 All other systems are negative. jr11 Exam: 11:28 Constitutional: This is a well developed, well nourished patient who is awake, alert, jr11 and in no acute distress. Head/Face: Normocephalic, atraumatic. Eyes: Extra-ocular motions intact. Lids and lashes normal. Conjunctiva and sclera are non-icteric and not injected. Cornea within normal limits. Periorbital areas with no swelling, redness, or edema. ENT: Nares patent. No nasal discharge, no septal abnormalities noted. Oropharynx with no redness, swelling, or masses, exudates, or evidence of obstruction, uvula midline. Mucous membranes moist. Neck: Trachea midline, no thyromegaly or masses palpated, and no cervical lymphadenopathy. Supple, full range of motion without nuchal rigidity, or vertebral point tenderness. No Meningismus TTP R lateral neck Chest/axilla: Normal chest wall appearance and motion. Nontender with no deformity. No lesions are appreciated. Cardiovascular: Regular rate and rhythm with a normal S1 and S2. No gallops, murmurs, or rubs. Normal PMI, no JVD. No pulse deficits. Abdomen/GI: Soft, non-tender, with normal bowel sounds. No distension or tympany. No guarding or rebound. No evidence of tenderness throughout. Back: TTP lumbar spine, no step offs Skin: Warm, dry with normal turgor. Normal color with no rashes, no lesions, and no evidence of cellulitis. MS/ Extremity: Pulses equal, no cyanosis. Neurovascular intact. Full, normal range of motion. Vital Signs: 11:02 BP 120 / 80; Pulse 62; Resp 18; Temp 98.1(TE); Pulse Ox 100% on R/A; Height 5 ft. 3 in. ld1 ; Pain 8/10; 11:02 Pain Scale: Adult ld1 MDM: 11:08 Patient medically screened. [facility] 11:28 Differential Diagnosis msk pain, acute on chronic pain. Data reviewed: vital signs, jr11 nurses notes. ED course: Consider imaging however there was no trauma so no CT or x-rays ordered. Offered the patient multimodal pain therapy for her initial pain control for her chronic neck and back pain, patient refused. I offered her Tylenol Toradol Lidoderm patch Robaxin and steroids and she did not want to try any of that and decided to walk out of the ED. Patient is welcome to return at any point to continue her treatment. No red flags for cauda equina or cord compression.. Administered Medications: No medications were administered Disposition Summary: 12/29/22 11:28 Discharge Ordered Location: Home jr Condition: Stable jr11 Diagnosis - Low back pain jr11 - Sprain of joints and ligaments of other parts of neck jr11 Followup: jr11 - With: Private Physician - When: 2 - 3 days - Reason: Re-evaluation by your physician Discharge Instructions: - Discharge Summary Sheet jr11 - Chronic Back Pain jr11 - Musculoskeletal Pain jr11 Forms: - Medication Reconciliation Form jr11 - Thank You Letter jr11 - Antibiotic Education jr11 - Prescription Opioid Use jr11 Signatures: Franchesca Douglas RN RN ld1 Leandro Valentin MD MD jr11
--- NOTE | 2022-12-29 11:29 | ER ---
Nurse's Notes [facility] Name: Trudi Villavicencio Age: 47 yrs Sex: Female : 1975 Arrival Date: 12/29/2022 Time: 10:44 Bed IW1 Private MD: Diagnosis: Low back pain;Sprain of joints and ligaments of other parts of neck Presentation: 12/29 11:02 Chief complaint: Patient states: Pain to right neck/shoulder, back. Coronavirus screen: ld1 At this time, the client does not indicate any symptoms associated with coronavirus-19. Ebola Screen: No symptoms or risks identified at this time. Initial Sepsis Screen: Does the patient meet any 2 criteria? No. Patient's initial sepsis screen is negative. Does the patient have a suspected source of infection? No. Patient's initial sepsis screen is negative. Risk Assessment: Do you want to hurt yourself or someone else? Patient reports no desire to harm self or others. Onset of symptoms was December 29, 2022. 11:02 Method Of Arrival: Ambulatory ld1 11:02 Acuity: HOWIE 4 ld1 Triage Assessment: 11:03 General: Appears in no apparent distress. comfortable, Behavior is calm, cooperative, ld1 appropriate for age. Pain: Complains of pain in right jaw and right sternocleidomastoid Pain does not radiate. Pain currently is 8 out of 10 on a pain scale. Quality of pain is described as throbbing, Pain began chronic Is continuous. EENT: No signs and/or symptoms were reported regarding the EENT system. Neuro: Level of Consciousness is awake, alert, obeys commands, Oriented to person, place, time, situation. Cardiovascular: Capillary refill < 3 seconds Patient's skin is warm and dry. Respiratory: Airway is patent Respiratory effort is even, unlabored. GI: Abdomen is round non-distended. : No signs and/or symptoms were reported regarding the genitourinary system. Derm: No signs and/or symptoms reported regarding the dermatologic system. Musculoskeletal: No signs and/or symptoms reported regarding the musculoskeletal system. Historical: - Allergies: 11:03 Aspirin; ld1 11:03 Codeine; ld1 11:03 Topamax; ld1 11:03 tramadol; ld1 - PMHx: 11:03 gastritis; neuropathy; osteoarthritis; Radiculopathy; ld1 - PSHx: 11:03 breast reduction; ld1 - Immunization history:: Adult Immunizations up to date, Client reports receiving the 2nd dose of the Covid vaccine. - Social history:: Smoking status: Patient denies any tobacco usage or history of. Patient/guardian denies using alcohol. Screenin:48 [facility] ED Fall Risk Assessment (Adult) History of falling in the last 3 months, ld1 including since admission No falls in past 3 months (0 pts). Abuse screen: Denies threats or abuse. Denies injuries from another. Nutritional screening: No deficits noted. Tuberculosis screening: No symptoms or risk factors identified. Vital Signs: 11:02 BP 120 / 80; Pulse 62; Resp 18; Temp 98.1(TE); Pulse Ox 100% on R/A; Height 5 ft. 3 in. ld1 ; Pain 8/10; 11:02 Pain Scale: Adult ld1 ED Course: 10:46 Patient arrived in ED. mr 10:47 Leandro Valentin MD is Attending Physician. [email or web address] 11:03 Triage completed. ld1 11:03 Arm band placed on right wrist. ld1 11:48 Patient has correct armband on for positive identification. Call light in reach. Pulse ld1 ox on. NIBP on. 11:48 No provider procedures requiring assistance completed. Patient did not have IV access ld1 during this emergency room visit. Administered Medications: No medications were administered Medication: 11:48 VIS not applicable for this client. ld1 Outcome: 11:28 Discharge ordered by . [email or web address] 11:48 Discharged to home ambulatory. ld1 11:48 Condition: stable 11:48 Discharge instructions given to patient, Instructed on discharge instructions, follow up and referral plans. Demonstrated understanding of instructions, follow-up care. 11:48 Patient left the ED. ld1 Signatures: Aileen Adam Franchesca Douglas RN RN ld1 Leandro Valentin MD MD [email or web address]
[2022-12-29 12:08] VITALS: BP 120/80; TEMP 98.1; O2SAT 100
== END 2022-12-29 11:48 | disposition home or self-care (01) ==
LOC: ER 10:44
DX: S13.8XXA Sprain of joints and ligaments of other parts of neck, initial encounter (principal); M54.50 Low back pain, unspecified; Z88.5 Allergy status to narcotic agent; Z88.6 Allergy status to analgesic agent
CPT/HCPCS: 99283

== ENCOUNTER → 2023-08-19 | Emergency (ER) | payer SELFPAY ==
[~2023-08-19] MED LIST: GABAPENTIN 300 MG CAP ONE
--- NOTE | 2023-08-19 13:30 | ER ---
Nurse's Notes [facility] Name: Trudi Villavicencio Age: 48 yrs Sex: Female : 1975 Arrival Date: 08/19/2023 Time: 12:19 Bed 11 Private MD: Diagnosis: Mononeuropathy, unspecified;Pain in right foot Presentation: 08/19 12:39 Chief complaint: Patient states: Pain to top of R foot that began, "a few weeks ago". ss Coronavirus screen: Client denies travel out of the [place] in the last 14 days. Ebola Screen: Patient denies exposure to infectious person. Patient denies travel to an Ebola-affected area in the 21 days before illness onset. Initial Sepsis Screen: Does the patient meet any 2 criteria? No. Patient's initial sepsis screen is negative. Does the patient have a suspected source of infection? No. Patient's initial sepsis screen is negative. Risk Assessment: Do you want to hurt yourself or someone else? Patient reports no desire to harm self or others. Onset of symptoms is unknown. 12:39 Method Of Arrival: Ambulatory ss 12:39 Acuity: HOWIE 4 ss Triage Assessment: 12:40 General: Appears in no apparent distress. comfortable, Behavior is calm, cooperative. ss Neuro: No deficits noted. Respiratory: Respiratory effort is even, unlabored. Historical: - Allergies: 12:40 Aspirin; ss 12:40 Codeine; ss 12:40 Topamax; ss 12:40 tramadol; ss - PMHx: 12:40 gastritis; neuropathy; osteoarthritis; Radiculopathy; ss - PSHx: 12:40 breast reduction; ss - Immunization history:: Client reports receiving the 2nd dose of the Covid vaccine. - Social history:: Smoking status: Patient denies any tobacco usage or history of. Screenin:39 [facility] ED Fall Risk Assessment (Adult) History of falling in the last 3 months, ss including since admission No falls in past 3 months (0 pts). Abuse screen: Denies threats or abuse. Denies injuries from another. Nutritional screening: No deficits noted. Tuberculosis screening: Never had TB. Assessment: 12:39 General: Appears uncomfortable, Behavior is calm, cooperative, Denies fever, feeling ss ill, fatigue, chills. Pain: Complains of pain in dorsum of right foot Pain currently is 8 out of 10 on a pain scale. Quality of pain is described as aching, tender, Pain began "a few weeks ago" Is continuous. Neuro: Level of Consciousness is awake, alert, obeys commands, Oriented to person, place, time, situation. Respiratory: Airway is patent Respiratory effort is even, unlabored, Respiratory pattern is regular, symmetrical. Derm: Skin is intact, is healthy with good turgor, Skin is dry, Skin is pink, warm \\T\\ dry. normal. Musculoskeletal: Range of motion: intact in all extremities, Swelling absent. 13:54 Reassessment: Upon discharge patient appeared a little upset. After asking patient why ss she was upset with discharge/ plan of care.. pt kept repeating, "it's ok, I'm just going to go to [place]." PT signed discharge instructions, and refused gabapentin and walked to [facility] with steady gait. Vital Signs: 12:39 BP 129 / 85; Pulse 62; Resp 18; Temp 97.7(O); Pulse Ox 100% on R/A; Weight 101.6 kg; ss Height 5 ft. 3 in. ; Pain 8/10; 12:39 Body Mass Index 39.68 (101.60 kg, 160.02 cm) ss 12:39 Pain Scale: Adult ss ED Course: 12:21 Patient arrived in ED. im 12:26 Federica Ibrahim FNP-C is PHCP. snw 12:26 Dangelo Severino MD is Attending Physician. snw 12:39 Patient has correct armband on for positive identification. Bed in low position. ss 12:39 No provider procedures requiring assistance completed. Patient did not have IV access ss during this emergency room visit. 12:40 Triage completed. ss 12:40 Arm band placed on right wrist. ss 13:30 Alexus Diamond, BECK is Primary Nurse. ss Administered Medications: 13:54 Not Given (Patient Refused): [id number] mg PO once ss Medication: 12:39 VIS not applicable for this client. ss Outcome: 13:29 Discharge ordered by . snw 13:54 Discharged to home ambulatory, ss 13:54 Condition: good 13:54 Discharge instructions given to patient, Instructed on discharge instructions, follow up and referral plans. Demonstrated understanding of instructions, follow-up care, 14:04 Patient left the ED. ss Signatures: Federica Ibrahim, JOHN PAUL-C CHIEF CREW SCHEDULER-Csnw Alexus Diamond, RN RN ss Kelley Barba
--- NOTE | 2023-08-19 13:30 | EDPHYS ---
Physician Documentation [facility] Name: Trudi Villavicencio Age: 48 yrs Sex: Female : 1975 Arrival Date: 08/19/2023 Time: 12:19 Bed 11 Private MD: ED Physician Dangelo Severino HPI: 08/19 13:37 This 48 yrs old Female presents to ER via Ambulatory with complaints of Foot Pain - snw right. 13:37 Onset: The symptoms/episode began/occurred gradually, right foot pain for "a while". snw Associated signs and symptoms: The patient has no apparent associated signs or symptoms. Severity of symptoms: At their worst the symptoms were moderate. "off and on". Historical: - Allergies: 12:40 Aspirin; ss 12:40 Codeine; ss 12:40 Topamax; ss 12:40 tramadol; ss - PMHx: 12:40 gastritis; neuropathy; osteoarthritis; Radiculopathy; ss - PSHx: 12:40 breast reduction; ss - Immunization history:: Client reports receiving the 2nd dose of the Covid vaccine. - Social history:: Smoking status: Patient denies any tobacco usage or history of. ROS: 13:36 Constitutional: Negative for fever, chills, and weight loss, Eyes: Negative for injury, snw pain, redness, and discharge, ENT: Negative for injury, pain, and discharge, Neck: Negative for injury, pain, and swelling, Cardiovascular: Negative for chest pain, palpitations, and edema, Respiratory: Negative for shortness of breath, cough, wheezing, and pleuritic chest pain, Abdomen/GI: Negative for abdominal pain, nausea, vomiting, diarrhea, and constipation, Back: Negative for injury and pain, : Negative for injury, bleeding, discharge, and swelling, Skin: Negative for injury, rash, and discoloration, Neuro: Negative for headache, weakness, numbness, tingling, and seizure, Psych: Negative for depression, anxiety, suicide ideation, homicidal ideation, and hallucinations, 13:36 MS/extremity: Positive for pain, of the dorsum of right foot, "for a while", Exam: 13:35 Constitutional: This is a well developed, well nourished patient who is awake, alert, snw and in no acute distress. Head/Face: Normocephalic, atraumatic. Skin: Warm, dry with normal turgor. Normal color with no rashes, no lesions, and no evidence of cellulitis. Neuro: Awake and alert, GCS 15, oriented to person, place, time, and situation. Cranial nerves II-XII grossly intact. Motor strength 5/5 in all extremities. Sensory grossly intact. Cerebellar exam normal. Normal gait. 13:35 Musculoskeletal/extremity: Extremities: grossly normal except: noted in the dorsum of right foot: Circulation is intact in all extremities. Sensation intact. Vital Signs: 12:39 BP 129 / 85; Pulse 62; Resp 18; Temp 97.7(O); Pulse Ox 100% on R/A; Weight 101.6 kg; ss Height 5 ft. 3 in. ; Pain 8/10; 12:39 Body Mass Index 39.68 (101.60 kg, 160.02 cm) ss 12:39 Pain Scale: Adult ss MDM: 12:50 Patient medically screened. snw 13:36 Differential diagnosis: neuropathy, chronic pain. Data reviewed: vital signs, nurses snw notes. I considered the following discharge prescriptions or medication management in the emergency department Medications were administered in the Emergency Department. See MAR. Counseling: I had a detailed discussion with the patient and/or guardian regarding the historical points, exam findings, and any diagnostic results supporting the discharge/admit diagnosis, the need for outpatient follow up, for definitive care, a orthopedic surgeon, to return to the emergency department if symptoms worsen or persist or if there are any questions or concerns that arise at home. Special discussion: Based on the history and exam findings, there is no indication for further emergent testing or inpatient evaluation. I discussed with the patient/guardian the need to see the orthopedic surgeon for further evaluation of the symptoms. I discussed with the patient/guardian the need to see the primary care provider for further evaluation of the symptoms. Administered Medications: 13:54 Not Given (Patient Refused): [id number] mg PO once ss Disposition Summary: 08/19/23 13:29 Discharge Ordered Notes: Location: Home snw Condition: Stable snw Diagnosis - Mononeuropathy, unspecified snw - Pain in right foot snw Followup: snw - With: Private Physician - When: 2 - 3 days - Reason: Recheck today's complaints, Continuance of care, Re-evaluation by your physician Discharge Instructions: - Discharge Summary Sheet snw - Pain Without a Known Cause snw - Neuropathic Pain snw - Foot Pain snw Forms: - Medication Reconciliation Form snw - Thank You Letter snw - Antibiotic Education snw - Prescription Opioid Use snw - Patient Portal Instructions snw - Leadership Thank You Letter snw Signatures: Federica Ibrahim FNP-C [employer]A MECHANIC-Csnw Alexus Diamond RN RN ss
[2023-08-19 14:17] VITALS: BP 129/85; TEMP 97.7; O2SAT 100
== END ==
LOC: ER 12:19
DX: G58.9 Mononeuropathy, unspecified (principal)

== ENCOUNTER → 2023-09-30 | Emergency (ER) | payer OTHER, SELFPAY ==
[~2023-09-30] MED LIST changes: -GABAPENTIN 300 MG CAP ONE; +LIDOCAINE VISCOUS 2% 10ML ORAL SOLN ONE; +MAGNES/ALUMIN/SIMET 30ML UCUP ONE; +NA CHLORIDE 0.9% 1,000 ML ONE; +POTASSIUM CL SA 10 MEQ TAB PO ONE
--- NOTE | 2023-09-30 21:03 | RAD REPORT ---
EXAM DESCRIPTION: CT - Head Brain Wo Cont - 09/30/2023 8:35 pm CLINICAL HISTORY: HEADACHE COMPARISON: No comparisons TECHNIQUE: Noncontrast head CT images were obtained without IV contrast. Multiplanar reformats were generated and reviewed. All CT scans are performed using dose optimization technique as appropriate and may include automated exposure control or mA/KV adjustment according to patient size. FINDINGS: No intracranial hemorrhage, mass, or edema. Midline structures are unremarkable. Normal ventricular caliber for age. Solomon-white matter differentiation is preserved, without evidence of acute infarct. No abnormal extra- axial fluid collections. Mastoid air cells and visualized portions of the paranasal sinuses are clear. No acute bony findings. IMPRESSION: No evidence of an acute intracranial process.
[2023-09-30 21:33] LABS: Absolute Eosinophils 0.2 K/uL (0-0.5); Absolute Lymphocytes (CBC) 2.2 K/uL (0.7-4.9); Absolute Monocytes 0.6 K/uL (0.1-1.3); Absolute Neutrophil 4.8 K/uL (1.8-8.0); Basophils % 0.6 % (0-1.3); Eosinophils % 2.2 % (0-4.4); Hematocrit 39.6 % (36.0-45.0); Hemoglobin 13.4 g/dL (12.0-15.0); Lymphocytes % 27.6 % (15.3-44.8); MCH 30.4 pg (27.0-35.0); MCHC 33.9 g/dL (32.0-36.0); MCV 89.6 fL (80-100); MPV 7.9 fL (7.6-11.3); Monocytes % 7.9 % (3.3-12.3); Neutrophils % 61.7 % (41.7-73.7); Nucleated Red Blood Cells % 0.2 % (0-0); Platelets 303 thou/uL (152-406); RBC Red Blood Cell Count 4.42 M/uL (3.86-4.86); Red Cell Distribution Width 13.6 % (12.1-15.2)
[2023-09-30 21:46] LABS: Anion Gap 9.3 mEq/L (5.0-15.0); Potassium 3.3 mEq/L (3.5-5.1)
--- NOTE | 2023-09-30 22:45 | EDPHYS ---
Physician Documentation [facility] Name: Trudi Villavicencio Age: 48 yrs Sex: Female : 1975 Arrival Date: 09/30/2023 Time: 19:33 Bed 13 Private MD: ED Physician Diogenes Oseguera HPI: 09/29 21:04 This 48 yrs old Female presents to ER via EMS with complaints of Nausea/Vomiting, High ci Blood Pressure. 21:04 Patient is a 48-year-old female with PMH gastritis, neuropathy, OA, hypertension who ci presents to the ED for elevated blood pressure. Patient reports she has high blood pressure issues for the past few days, today she was at work and did not feel good. Endorses headache, nausea/vomiting. Patient's boss called EMS and she was found to be hypertensive with BP 170/100. Received Zofran and route, reports symptoms improved on arrival. Denies slurred speech, blurry vision, extremity weakness. 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 - Social history:: Smoking status: Patient denies any tobacco usage or history of. - History obtained from: EMS. ROS: 21:04 Constitutional: Negative for fever, chills, and weight loss, ci 21:04 Cardiovascular: Negative for chest pain, edema, palpitations, 21:04 Respiratory: Negative for orthopnea, shortness of breath, wheezing, 21:04 Abdomen/GI: Positive for nausea and vomiting, Negative for abdominal pain, 21:04 Neuro: Positive for headache, Negative for dizziness, seizure activity, speech changes, weakness, Exam: 19:45 Constitutional: This is a well developed, well nourished patient who is awake, alert, ci and in no acute distress. Head/Face: Normocephalic, atraumatic. Eyes: Pupils equal round and reactive to light, extra-ocular motions intact. Lids and lashes normal. Conjunctiva and sclera are non-icteric and not injected. Cornea within normal limits. Periorbital areas with no swelling, redness, or edema. ENT: Nares patent. No nasal discharge, no septal abnormalities noted. Tympanic membranes are normal and external auditory canals are clear. Oropharynx with no redness, swelling, or masses, exudates, or evidence of obstruction, uvula midline. Mucous membranes moist. Neck: Trachea midline, no thyromegaly or masses palpated, and no cervical lymphadenopathy. Supple, full range of motion without nuchal rigidity, or vertebral point tenderness. No Meningismus. Chest/axilla: Normal chest wall appearance and motion. Nontender with no deformity. No lesions are appreciated. Cardiovascular: Regular rate and rhythm with a normal S1 and S2. No gallops, murmurs, or rubs. Normal PMI, no JVD. No pulse deficits. Respiratory: Lungs have equal breath sounds bilaterally, clear to auscultation and percussion. No rales, rhonchi or wheezes noted. No increased work of breathing, no retractions or nasal flaring. Abdomen/GI: Soft, non-tender, with normal bowel sounds. No distension or tympany. No guarding or rebound. No evidence of tenderness throughout. Back: No spinal tenderness. No costovertebral tenderness. Full range of motion. Skin: Warm, dry with normal turgor. Normal color with no rashes, no lesions, and no evidence of cellulitis. MS/ Extremity: Pulses equal, no cyanosis. Neurovascular intact. Full, normal range of motion. Neuro: Awake and alert, GCS 15, oriented to person, place, time, and situation. Cranial nerves II-XII grossly intact. Motor strength 5/5 in all extremities. Sensory grossly intact. Cerebellar exam normal. Normal gait. Psych: Awake, alert, with orientation to person, place and time. Behavior, mood, and affect are within normal limits. 22:46 ECG was reviewed by the Attending Physician. ci Vital Signs: 19:48 BP 132 / 76; Pulse 63; Resp 16; Temp 97.1; Pulse Ox 100% on R/A; Weight 109.77 kg; cm10 Height 5 ft. 2 in. ; Pain 6/10; 21:18 BP 124 / 89; Pulse 51; Resp 18; Pulse Ox 100% on R/A; me1 22:00 BP 118 / 77; Pulse 49; Resp 12; Pulse Ox 100% on R/A; me1 22:30 BP 106 / 80; Pulse 49; Resp 15; Pulse Ox 100% on R/A; me1 23:03 BP 110 / 79; Pulse 51; Resp 16; Pulse Ox 100% on R/A; me1 19:48 Body Mass Index 44.26 (109.77 kg, 157.48 cm) cm10 19:48 Pain Scale: Adult cm10 MDM: 19:54 Patient medically screened. ci 20:30 ED course: Abdomen soft, nontender, nondistended. Patient reports she only had 1 ci episode of NBNB emesis which has resolved since Zofran by EMS.. 20:30 Historians other than the Patient: [id number] at bedside. Care significantly ci affected by the following chronic conditions: Hypertension. Counseling: I had a detailed discussion with the patient and/or guardian regarding the historical points, exam findings, and any diagnostic results supporting the discharge/admit diagnosis, lab results, the need for outpatient follow up, to return to the emergency department if symptoms worsen or persist or if there are any questions or concerns that arise at home. 22:43 ED course: Reports she has been on bisoprolol for 2 years. Discussed possible tolerance ci to BP meds and may need medication readjusted by PCP. Stable for discharge with outpatient follow-up.. 22:46 Differential diagnosis: Asymptomatic hypertension, hypertensive emergency, hypertensive ci encephalopathy, gastroenteritis. Differential diagnosis: Nonspecific abd pain. Data reviewed: vital signs, nurses notes, old medical records. 09/29 20:01 Order name: Basic Metabolic Panel; Complete Time: 21:47 ci 09/29 21:47 Interpretation: Abnormal: K 3.3. ci 09/29 20:01 Order name: CBC with Diff; Complete Time: 21:47 ci 09/29 20:01 Order name: CT Head Brain wo Cont; Complete Time: 21:47 ci 09/29 21:48 Interpretation: No acute disease. ci 09/29 20:01 Order name: EKG; Complete Time: 20:04 ci 09/29 20:01 Order name: Cardiac monitoring; Complete Time: 22:40 ci 09/29 20:01 Order name: EKG - Nurse/Tech; Complete Time: 22:40 ci 09/29 20:01 Order name: IV Saline Lock; Complete Time: 21:25 ci 09/29 20:01 Order name: Labs collected and sent; Complete Time: : ci 09/29 20: Order name: O2 Per Protocol; Complete Time: :25 ci 09/29 20:01 Order name: O2 Sat Monitoring; Complete Time: 21:25 ci EC:46 Rate is 54 beats/min. Rhythm is regular, Sinus bradycardia with No ectopy. Clinical ci impression: Sinus bradycardia. Administered Medications: 21:31 Drug: NS 0.9% IV 1000 ml IV at 1000 ml once Route: IV; Rate: 1000 ml; Site: right me1 antecubital; 22:40 Follow up: Response: No adverse reaction; IV Status: Completed infusion; IV Intake: me1 1000ml 22:50 Drug: Potassium Chloride PO 40 mEq PO once Route: PO; me1 23:03 Follow up: Response: No adverse reaction me1 23:02 Drug: GI Cocktail without - (Maalox PO 30 ml, Lidocaine Mucous Membrane 2 % 15 me1 ml) PO once Route: PO; 23:04 Follow up: Response: No adverse reaction; Marked relief of symptoms me1 Disposition Summary: 09/30/23 22:44 Discharge Ordered Notes: Location: Home ci Condition: Stable ci Diagnosis - Essential (primary) hypertension ci Followup: ci - With: Private Physician - When: 2 - 3 days - Reason: Recheck today's complaints, Re-evaluation by your physician Discharge Instructions: - Discharge Summary Sheet ci - Hypertension, Adult, [id number] ci Forms: - Medication Reconciliation Form ci - Thank You Letter ci - Antibiotic Education ci - Prescription Opioid Use ci - Patient Portal Instructions ci - Leadership Thank You Letter ci Signatures: Dispatcher [employer] Pretty Rios RN RN cm10 Janet Hart RN RN me1 Diogenes Oseguera ci
--- NOTE | 2023-09-30 22:45 | ER ---
Nurse's Notes [facility] Name: Trudi Villavicencio Age: 48 yrs Sex: Female : 1975 Arrival Date: 09/30/2023 Time: 19:33 Bed 13 Private MD: Diagnosis: Essential (primary) hypertension Presentation: 09/29 19:48 Chief complaint: EMS states: Called to patient's job for patient having nausea, cm10 vomiting, headache and elevated blood pressure. EMS reports that patient's BP was 170/100. Coronavirus screen: Client denies travel out of the [place] in the last 14 days. At this time, the client does not indicate any symptoms associated with coronavirus-19. Ebola Screen: Patient denies travel to an Ebola-affected area in the 21 days before illness onset. No symptoms or risks identified at this time. Initial Sepsis Screen: Does the patient meet any 2 criteria? No. Patient's initial sepsis screen is negative. Does the patient have a suspected source of infection? No. Patient's initial sepsis screen is negative. Risk Assessment: Do you want to hurt yourself or someone else? Patient reports no desire to harm self or others. Onset of symptoms was September 30, 2023. 19:48 Method Of Arrival: EMS: [facility] cm10 19:48 Acuity: HOWIE 3 cm10 19:50 Care prior to arrival: Medication(s) given: zofran 4 mg, IV initiated. 20 GA, in the cm10 right antecubital area. Triage Assessment: 19:50 General: Appears in no apparent distress. comfortable, Behavior is calm, cooperative. cm10 Pain: Complains of pain in head. Neuro: No deficits noted. Level of Consciousness is awake, alert, obeys commands, Oriented to person, place, time, situation. Respiratory: No deficits noted. Airway is patent Respiratory effort is even, unlabored, Respiratory pattern is regular, symmetrical. 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 - Social history:: Smoking status: Patient denies any tobacco usage or history of. - History obtained from: EMS. Screenin:00 [facility] ED Fall Risk Assessment (Adult) History of falling in the last 3 months, me1 including since admission No falls in past 3 months (0 pts) Confusion or Disorientation No (0 pts) Intoxicated or Sedated No (0 pts) Impaired Gait No (0 pts) Mobility Assist Device Used No (0 pt) Altered Elimination No (0 pt) Score/Fall Risk Level 0 - 2 = Low Risk Maintained a safe environment, Provided non-skid footwear, Hourly rounding (assess needs \T\ fall precautionary measures) done. Abuse screen: Denies threats or abuse. Nutritional screening: No deficits noted. Tuberculosis screening: No symptoms or risk factors identified. Assessment: 20:00 General: Appears uncomfortable, ill, well groomed, well developed, well nourished, me1 Behavior is calm, cooperative, appropriate for age, Reports Called to patient's job for patient having nausea, vomiting, headache and elevated blood pressure. Pain: Denies pain. Neuro: Level of Consciousness is awake, alert, obeys commands, Oriented to person, place, time, situation, Appropriate for age. Cardiovascular: Capillary refill < 3 seconds Patient's skin is warm and dry. Respiratory: Airway is patent Trachea midline Respiratory effort is even, unlabored, Respiratory pattern is regular, symmetrical. GI: Reports nausea, vomiting, since earlier today. 21:00 Reassessment: Patient appears in no apparent distress at this time. Patient and/or me1 family updated on plan of care and expected duration. Pain level reassessed. Patient is alert, oriented x 3, equal unlabored respirations, skin warm/dry/pink. Patient states feeling better. 22:00 Reassessment: Patient and/or family updated on plan of care and expected duration. Pain me1 level reassessed. Patient is alert, oriented x 3, equal unlabored respirations, skin warm/dry/pink. Patient states feeling better. Vital Signs: 19:48 BP 132 / 76; Pulse 63; Resp 16; Temp 97.1; Pulse Ox 100% on R/A; Weight 109.77 kg; cm10 Height 5 ft. 2 in. ; Pain 6/10; 21:18 BP 124 / 89; Pulse 51; Resp 18; Pulse Ox 100% on R/A; me1 22:00 BP 118 / 77; Pulse 49; Resp 12; Pulse Ox 100% on R/A; me1 22:30 BP 106 / 80; Pulse 49; Resp 15; Pulse Ox 100% on R/A; me1 23:03 BP 110 / 79; Pulse 51; Resp 16; Pulse Ox 100% on R/A; me1 19:48 Body Mass Index 44.26 (109.77 kg, 157.48 cm) cm10 19:48 Pain Scale: Adult cm10 ED Course: 19:34 Patient arrived in ED. [id number] 19:49 Triage completed. cm10 19:50 Arm band placed on Patient placed in waiting room. cm10 19:54 Diogenes Oseguera is Attending Physician. ci 20:00 Patient has correct armband on for positive identification. Bed in low position. Call me1 light in reach. Side rails up X 1. Provided Education on: POC. Verbalized understanding. . 20:00 No provider procedures requiring assistance completed. me1 20:37 CT Head Brain wo Cont In Process Unspecified. EDMS 21:17 Janet Hart, RN is Primary Nurse. me1 21:25 Basic Metabolic Panel Sent. me1 21:25 CBC with Diff Sent. me1 21:26 Initial lab(s) drawn, by me, sent to lab. Maintain EMS IV. Dressing intact. Good blood me1 return noted. Site clean \T\ dry. Gauge \T\ site: 20g RAC. 23:10 IV discontinued, intact, bleeding controlled, No redness/swelling at site. Pressure me1 dressing applied. Administered Medications: 21:31 Drug: NS 0.9% IV 1000 ml IV at 1000 ml once Route: IV; Rate: 1000 ml; Site: right me1 antecubital; 22:40 Follow up: Response: No adverse reaction; IV Status: Completed infusion; IV Intake: me1 1000ml 22:50 Drug: Potassium Chloride PO 40 mEq PO once Route: PO; me1 23:03 Follow up: Response: No adverse reaction me1 23:02 Drug: GI Cocktail without - (Maalox PO 30 ml, Lidocaine Mucous Membrane 2 % 15 me1 ml) PO once Route: PO; 23:04 Follow up: Response: No adverse reaction; Marked relief of symptoms me1 Medication: 20:00 VIS not applicable for this client. me1 Intake: 22:40 IV: 1000ml; Total: 1000ml. me1 Outcome: 22:44 Discharge ordered by . ci 23:10 Discharged to home ambulatory, with family, me1 23:10 Condition: stable 23:10 Discharge instructions given to patient, Instructed on discharge instructions, follow up and referral plans. Demonstrated understanding of instructions, follow-up care, 23:10 Patient left the ED. me1 Signatures: Dispatcher [employer] EDMS Carla Champagne [email or web address] Pretty Rodriguez RN RN cm10 Janet Hart RN RN me1 Diogenes Oseguera Corrections: (The following items were deleted from the chart) 22:37 19:48 Chief complaint: EMS states: Called to patient's job for patient having nausea, me1 vomiting, headache and elevated blood pressure. EMS reports that patient's BP was 170/100 cm10
[2023-09-30 23:39] VITALS: BP 110/79; TEMP 97.1; O2SAT 100
--- NOTE | 2023-10-01 14:24 | EKG ---
Test Date: 2023-09-30 Test Time: 21:28:45 Pastry Artist: SULEMAN MEASUREMENT RESULTS: Intervals: Rate: 54 LA: 162 QRSD: 76 QT: 438 QTc: 415 [place]: P: LA: 162 QRS: 125 T: 161 INTERPRETIVE STATEMENTS: Sinus bradycardia Low voltage QRS Lateral infarct, age undetermined Possible Inferior infarct, age undetermined T wave abnormality, consider anterior ischemia Abnormal ECG Compared to ECG 11/07/2022 05:13:50 Low QRS voltage now present Myocardial infarct finding now present Possible ischemia now present Sinus rhythm no longer present T-wave abnormality still present Electronically Signed On 10-01-23 14:23:31 CDT by Anmol Narayanan
== END ==
LOC: ER 19:33
DX: I10 Essential (primary) hypertension (principal); R11.2 Nausea with vomiting, unspecified; Z88.5 Allergy status to narcotic agent; Z88.6 Allergy status to analgesic agent
CPT/HCPCS: 93005; 85025; 80048; 36415; 70450; 96360; 99284; J7030